=== PATIENT | female | born 1965 | race Caucasian/White ===

== ENCOUNTER 2016-08-25 14:33 | Emergency (ER) | payer MEDICARE, MEDICAID ==
[2016-08-25 15:07] VITALS: BP 100/77
--- NOTE | 2016-08-25 16:07 | UC ---
Back Pain HPI - HPI Summary HPI Summary: 51 yo female with chronic back pain and right sciatica presents with increased pain after a fall. She landed on her buttock. No bowel or bladder dysfunction no hx CA out of her pain meds also c/o productive cough x 3 weeks - History of Current Complaint Chief Complaint: UCBackPain Stated Complaint: FELL-BACK PAIN Hx Obtained From: Patient Onset/Duration: Sudden Onset Timing: Constant Severity Initially: Severe Severity Currently: Severe Pain Intensity: 8 Pain Scale Used: 0-10 Numeric Character: Dull, Aching Aggravating: Movement, Walking Alleviating: Rest Associated Signs And Symptoms: Positive: Numbness - chronic decreased sensation right leg - Allergies/Home Medications Allergies/Adverse Reactions: Allergies Allergy/AdvReac Type Severity Reaction Status Date / Time Ibuprofen Allergy Severe Hives Verified 08/25/16 15:08 Latex Allergy Severe Rash Verified 08/25/16 15:08 Sulfa Antibiotics Allergy Severe Hives Verified 08/25/16 15:08 Penicillins Allergy Intermediate Rash Verified 08/25/16 15:08 Nalbuphine Allergy Unknown Unknown Verified 08/25/16 15:08 Reaction Details Perphenazine Allergy Unknown Unknown Verified 08/25/16 15:08 Reaction Details Ciprofloxacin [From Cipro] AdvReac Severe Dizziness Verified 08/25/16 15:08 Tramadol AdvReac Severe Altered Verified 08/25/16 15:08 Mental Status [place] AdvReac Mild See Comment Verified 08/25/16 15:08 ENVIRONMENTAL Allergy Mild SINUS Uncoded 08/25/16 15:08 PMH/Surg Hx/FS Hx/Imm Hx Endocrine History Of: Reports: Diabetes, Thyroid Disease Cardiovascular History Of: Reports: Hypertension Denies: Cardiac Disorders, Pacemaker/ICD Respiratory History Of: Reports: Asthma Denies: COPD, Pneumonia, Pulmonary Embolism GI/ History Of: Reports: Gastrointestinal Bleed, Gall Bladder Disease Denies: Gastroesophageal Reflux, Renal Disease Neurological History Of: Denies: CVA, Dementia, Seizures Psychological History Of: Reports: Anxiety, Depression, Bipolar Disorder - pt manic Denies: Schizophrenia Cancer History Of: Denies: Lung Cancer Other History Of: Negative For: Anticoagulant Therapy - Surgical History Surgical History: Yes Surgery Procedure, Year, and Place: 2011-CATARACT EXTRACTION. GALLBLADDER REMOVED . HIP SURGERY ACHILD - Family History Known Family History: Positive: None - reviewed & noncontributory, Other - Anxiety and depression, [place] - father Negative: Cardiac Disease, Hypertension, Diabetes Family History: Depression and anxiety - Social History Alcohol Use: None Substance Use Type: Prescribed Smoking Status (MU): Former Smoker Type: Cigarettes Length of Time of Smoking/Using Tobacco: 1 year ago Have You Smoked in the Last Year: No Household Exposure Type: Cigarettes - Immunization History Most Recent Influenza Vaccination: 05/2016 Most Recent Tetanus Shot: Unsure Most Recent Pneumonia Vaccination: 04/20/2006 Review of Systems Constitutional: Negative Skin: Negative Eyes: Negative ENT: Negative Respiratory: Cough Cardiovascular: Negative Gastrointestinal: Negative Genitourinary: Negative Motor: Negative Neurovascular: Negative Musculoskeletal: Arthralgia, Myalgia Neurological: Negative Psychological: Negative All Other Systems Reviewed And Are Negative: Yes Physical Exam Triage Information Reviewed: Yes Appearance: Well-Appearing, No Pain Distress, Well-Nourished Vital Signs: Initial Vital Signs Temp 98.2 F 08/25/16 15:01 Pulse 72 08/25/16 15:01 Resp 20 08/25/16 15:01 BP 100/77 08/25/16 15:01 Pulse Ox 100 08/25/16 15:01 Eyes: Positive: Conjunctiva Clear ENT: Negative: Hearing grossly normal - decreased, Nasal congestion, Nasal drainage, Trismus, Muffled/hoarse voice Neck: Positive: Supple, Nontender Respiratory: Positive: No respiratory distress, No accessory muscle use, Rhonchi Cardiovascular: Positive: RRR, No Murmur Neurological: Positive: Alert Psychological Exam: Normal Skin Exam: Normal Back Pain Course/Dx - Differential Dx/Diagnosis Provider Diagnoses: lumbar strain. lumbar DDD. acute bronchitis Discharge - Discharge Plan Condition: Stable Disposition: HOME Prescriptions: Azithromycin TAB* [Zithromax TAB*] 250 mg PO DAILY #6 tab HYDROcodone/ACETAMIN 5-325 MG* [[place] 5-325 TAB*] 1 tab PO Q4H PRN #15 tab MDD 4 PRN Reason: Pain Patient Education Materials: Acute Bronchitis (ED), Degenerative Disc Disease ( ED) Referrals: Gabo Sullivan MD [Primary Care Provider] - 5 Days
--- NOTE | 2016-08-25 16:39 | RAD ---
INDICATION: Back pain COMPARISON: March 12, 2016 TECHNIQUE: Routine PA, lateral, and oblique imaging was performed . FINDINGS: Bones: There are no acute bony findings. There are arthritic changes with multilevel degenerative disc disease. There is multilevel degenerative spurring and there is facet arthropathy at the lower 2 lumbar levels. All findings are unchanged. Alignment: Normal Disc spaces: As above, multilevel degenerative narrowing. Soft tissues: There are no soft tissue abnormalities. IMPRESSION: MODERATE DEGENERATIVE CHANGE. NO ACUTE FINDINGS.
== END 2016-08-25 17:10 | disposition home or self-care (01) ==
LOC: UCEAST 14:33
DX: S39.012A Strain of muscle, fascia and tendon of lower back, initial encounter (principal); M51.36 Other intervertebral disc degeneration, lumbar region; J20.9 Acute bronchitis, unspecified; Z87.891 Personal history of nicotine dependence; Z98.49 Cataract extraction status, unspecified eye; W19.XXXA Unspecified fall, initial encounter; Y92.9 Unspecified place or not applicable; Z88.0 Allergy status to penicillin; Z88.1 Allergy status to other antibiotic agents; Z88.2 Allergy status to sulfonamides; Z88.5 Allergy status to narcotic agent; Z88.6 Allergy status to analgesic agent; Z88.8 Allergy status to other drugs, medicaments and biological substances
CPT/HCPCS: 72110; 99212; G0463

== ENCOUNTER 2016-10-21 16:01 | Emergency (ER) | payer MEDICARE, MEDICAID ==
[2016-10-21 16:33] VITALS: BP 142/69
[2016-10-21] MEDS ORDERED: Ketorolac INJ* 60 MG/2 ML VIAL IM ONE (17:51)
--- NOTE | 2016-10-21 18:01 | UC ---
Throat Pain/Nasal John HPI - HPI Summary HPI Summary: SINUS CONGESTION AND FACIAL PRESSURE SINCE 10/15/16. OCASIONAL NONPRODUCTIVE COUGH. PRESSURE CAUSING HEADACHE. HAS TAKEN ALIEVE AND TORADOL IN PAST WITHOUT PROBLEMS, DESPITE NOTEDIBUPROFEN ALLERGY. NO FEVER. - History of Current Complaint Chief Complaint: UCRespiratory Stated Complaint: SINUS PAIN,CONGESTION Time Seen by Provider: 10/21/16 16:49 Hx Obtained From: Patient, Family/[employer]attery [employer] As[employer]er Hx Last Menstrual Period: August 2016 Onset/Duration: Gradual Onset, Lasting Weeks, Worse Since - THREE DAYS Severity: Moderate Cough: Nonproductive Associated Signs & Symptoms: Positive: Hoarseness, Sinus Discomfort, Nasal Discharge - Allergies/Home Medications Allergies/Adverse Reactions: Allergies Allergy/AdvReac Type Severity Reaction Status Date / Time Ibuprofen Allergy Severe Hives Verified 10/21/16 16:34 Latex Allergy Severe Rash Verified 10/21/16 16:34 Sulfa Antibiotics Allergy Severe Hives Verified 10/21/16 16:34 Penicillins Allergy Intermediate Rash Verified 10/21/16 16:34 Nalbuphine Allergy Unknown Unknown Verified 10/21/16 16:34 Reaction Details Perphenazine Allergy Unknown Unknown Verified 10/21/16 16:34 Reaction Details Ciprofloxacin [From Cipro] AdvReac Severe Dizziness Verified 10/21/16 16:34 Tramadol AdvReac Severe Altered Verified 10/21/16 16:34 Mental Status [place] AdvReac Mild See Comment Verified 10/21/16 16:34 ENVIRONMENTAL Allergy Mild SINUS Uncoded 10/21/16 16:34 PMH/Surg Hx/FS Hx/Imm Hx Previously Healthy: Yes Endocrine History Of: Reports: Diabetes, Thyroid Disease Cardiovascular History Of: Reports: Hypertension Denies: Cardiac Disorders, Pacemaker/ICD Respiratory History Of: Reports: Asthma Denies: COPD, Pneumonia, Pulmonary Embolism GI/ History Of: Reports: Gastrointestinal Bleed, Gall Bladder Disease Denies: Gastroesophageal Reflux, Ulcer, Renal Disease Neurological History Of: Denies: CVA, Dementia, Seizures Psychological History Of: Reports: Anxiety, Depression, Bipolar Disorder - pt manic Denies: Schizophrenia Cancer History Of: Denies: Lung Cancer Other History Of: Negative For: Anticoagulant Therapy - Surgical History Surgical History: Yes Surgery Procedure, Year, and Place: 2011-CATARACT EXTRACTION. GALLBLADDER REMOVED . HIP SURGERY ACHILD - Family History Known Family History: Positive: None - reviewed & noncontributory, Other - Anxiety and depression, [place] - father Negative: Cardiac Disease, Hypertension, Diabetes Family History: Depression and anxiety - Social History Occupation: Disabled Lives: With Family Alcohol Use: None Substance Use Type: None, Prescribed Smoking Status (MU): Former Smoker Type: Cigarettes Length of Time of Smoking/Using Tobacco: 2 year ago Have You Smoked in the Last Year: No Household Exposure Type: Cigarettes - Immunization History Most Recent Influenza Vaccination: 05/2016 Most Recent Tetanus Shot: Unsure Most Recent Pneumonia Vaccination: 04/20/2006 Review of Systems Constitutional: Negative Skin: Negative Eyes: Negative ENT: Ear Ache, Nasal Discharge Respiratory: Cough Cardiovascular: Negative Gastrointestinal: Negative Genitourinary: Negative Motor: Negative Neurovascular: Negative Musculoskeletal: Negative Neurological: Headache - MILD Psychological: Negative All Other Systems Reviewed And Are Negative: Yes Physical Exam Triage Information Reviewed: Yes Appearance: Well-Nourished, Ill-Appearing - MILD, Pain Distress - MILD Vital Signs: Initial Vital Signs Temp 98.8 F 10/21/16 16:26 Pulse 88 10/21/16 16:26 Resp 18 10/21/16 16:26 BP 142/69 10/21/16 16:26 Pulse Ox 99 10/21/16 16:26 Vital Signs Reviewed: Yes Eye Exam: Normal Eyes: Positive: Conjunctiva Clear ENT: Positive: Hearing grossly normal, Pharynx normal, TM bulging, TM dull Dental Exam: Normal Neck exam: Normal Neck: Positive: Supple, Nontender, No Lymphadenopathy Respiratory Exam: Normal Respiratory: Positive: Chest non-tender, Lungs clear, Normal breath sounds, No respiratory distress, No accessory muscle use Cardiovascular Exam: Normal Cardiovascular: Positive: RRR, No Murmur, Pulses Normal Abdominal Exam: Normal Abdomen Description: Positive: Nontender, No Organomegaly Musculoskeletal Exam: Normal Musculoskeletal: Positive: Strength Intact, ROM Intact, No Edema Neurological Exam: Normal Psychological Exam: Normal Psychological: Positive: Normal Response To Family Skin Exam: Normal Throat Pain/Nasal Course/Dx - Differential Dx/Diagnosis Differential Diagnosis/HQI/PQRI: Pharyngitis, Sinusitis, URI Provider Diagnoses: SINUSITIS Discharge - Discharge Plan Condition: Stable Disposition: HOME Prescriptions: DOXYcycline CAP(*) [DOXYcycline 100MG CAP(*)] 100 mg PO BID #20 cap Fluticasone NASAL SPRAY 50MCG* [Flonase NASAL SPRAY 50MCG*] 2 spray BOTH NARES DAILY #1 btl Patient Education Materials: Sinusitis (ED) Referrals: Gabo Sullivan MD [Primary Care Provider] -
== END 2016-10-21 18:22 | disposition home or self-care (01) ==
LOC: UCEAST 16:01
DX: J32.9 Chronic sinusitis, unspecified (principal); Z88.6 Allergy status to analgesic agent; Z88.1 Allergy status to other antibiotic agents; Z88.5 Allergy status to narcotic agent; Z88.0 Allergy status to penicillin; Z88.2 Allergy status to sulfonamides; Z88.8 Allergy status to other drugs, medicaments and biological substances; Z90.49 Acquired absence of other specified parts of digestive tract; Z98.49 Cataract extraction status, unspecified eye; Z87.891 Personal history of nicotine dependence
CPT/HCPCS: 99212; G0463; J1885

== ENCOUNTER 2016-11-04 17:27 | Emergency (ER) | payer MEDICARE, MEDICAID ==
[2016-11-04 19:58] VITALS: BP 168/86
--- NOTE | 2016-11-04 20:50 | UC ---
Jeromy Rosales Erika, scribed for Michelle Lopez DO on 11/04/16 at 1921 . Abdominal Pain Female HPI - HPI Summary HPI Summary: Patient is a 51-year-old female presenting to [facility] with a CC of epigastric pain. She reports that she noticed mild pain yesterday, but felt fine this morning. Pain returned and worsened today after pt had coffee and ate food. Pain started out dull, but is now sharp. It radiates through to her back. Symptoms include subjective fever, chills, weakness, diaphoresis, nausea, abdominal distension, vomiting(everything including water), dizziness and dyspnea. Pt states she has had dry heaving with PO intake. Pt also notes that she has been urinating frequently, but denies other urinary symptoms. She also reports left neck pain that she believes is musculoskeletal. Patient denies sore throat, ear ache, eye discharged, chest pain and pedal edema. Patient reports a Hx pancreatitis, and she states symptoms feel similar. She states she has not had a flare up in 3 years. Patient also states that she discontinued some of her psychiatric medications yesterday by recommendation of her psychiatrist. Patient states she came to [facility] today instead of the ED because she feels she has been treated poorly by ED staff, and believes this is due to her psychiatric history. FHx CAD. Denies FHx DM. Patient is a former smoker and she does not drink. - History of Current Complaint Chief Complaint: UCGeneralIllness Stated Complaint: ABD PAIN Time Seen by Provider: 11/04/16 18:50 Hx Obtained From: Patient Hx Last Menstrual Period: August 2016 Onset/Duration: Gradual Onset, Lasting Hours, Still Present Timing: Constant Severity Currently: Moderate Pain Intensity: 7 Location: Epigastric Radiates: Yes Radiates to: Back Character: Sharp Aggravating Factor(s): Food, Movement Alleviating Factor(s): Nothing Associated Signs and Symptoms: Positive: Diaphoresis, Fever, Dizzy, Back Pain, Nausea, Vomiting, Other: - chills, weakness, diaphoresis. Negative: Cough, Chest Pain, Blood in Stool, Urinary Symptoms Allergies/Adverse Reactions: Allergies Allergy/AdvReac Type Severity Reaction Status Date / Time Ibuprofen Allergy Severe Hives Verified 11/04/16 18:17 Latex Allergy Severe Rash Verified 11/04/16 18:17 Sulfa Antibiotics Allergy Severe Hives Verified 11/04/16 18:17 Penicillins Allergy Intermediate Rash Verified 11/04/16 18:17 Nalbuphine Allergy Unknown Unknown Verified 11/04/16 18:17 Reaction Details Perphenazine Allergy Unknown Unknown Verified 11/04/16 18:17 Reaction Details Ciprofloxacin [From Cipro] AdvReac Severe Dizziness Verified 11/04/16 18:17 Tramadol AdvReac Severe Altered Verified 11/04/16 18:17 Mental Status [place] AdvReac Mild See Comment Verified 11/04/16 18:17 ENVIRONMENTAL Allergy Mild SINUS Uncoded 11/04/16 18:17 Home Medications: Home Medications Naproxen [Naproxen 500 MG TABS] 500 mg PO BID 11/04/16 [History Confirmed ] PMH/Surg Hx/FS Hx/Imm Hx Endocrine History Of: Reports: Diabetes, Thyroid Disease Cardiovascular History Of: Reports: Hypertension Denies: Cardiac Disorders, Pacemaker/ICD Respiratory History Of: Reports: Asthma Denies: COPD, Pneumonia, Pulmonary Embolism GI/ History Of: Reports: Gastrointestinal Bleed, Gall Bladder Disease Denies: Gastroesophageal Reflux, Ulcer, Renal Disease Neurological History Of: Denies: CVA, Dementia, Seizures Psychological History Of: Reports: Anxiety, Depression, Bipolar Disorder - pt manic Denies: Schizophrenia Cancer History Of: Denies: Lung Cancer Other History Of: Negative For: Anticoagulant Therapy - Surgical History Surgical History: Yes Surgery Procedure, Year, and Place: 2011-CATARACT EXTRACTION. GALLBLADDER REMOVED . HIP SURGERY ACHILD - Family History Known Family History: Positive: Other - Anxiety and depression, [place] - father Negative: Cardiac Disease, Hypertension, Diabetes - Social History Lives: With Family Alcohol Use: None Smoking Status (MU): Former Smoker Type: Cigarettes Length of Time of Smoking/Using Tobacco: 2 year ago Have You Smoked in the Last Year: No Household Exposure Type: Cigarettes - Immunization History Most Recent Influenza Vaccination: 05/2016 Most Recent Tetanus Shot: Unsure Most Recent Pneumonia Vaccination: 04/20/2006 Review of Systems Constitutional: Fever - subjective, Chills, Other - diaphoresis Skin: Negative Eyes: Negative ENT: Negative Respiratory: Other - dyspnea Cardiovascular: Negative Gastrointestinal: Abdominal Pain - epigastric, Vomiting, Other - nausea Genitourinary: Frequency Motor: Negative Neurovascular: Negative Musculoskeletal: Myalgia - L neck pain Neurological: Weakness, Other - dizzy Psychological: Negative All Other Systems Reviewed And Are Negative: Yes Physical Exam Triage Information Reviewed: Yes Appearance: No Pain Distress, Ill-Appearing - mildly, Obese Vital Signs: Initial Vital Signs Temp 99.2 F 11/04/16 18:27 Pulse 88 11/04/16 18:27 Resp 20 11/04/16 18:27 BP 151/77 11/04/16 18:27 Pulse Ox 97 11/04/16 18:27 Vital Signs Reviewed: Yes Eyes: Positive: Conjunctiva Clear. Negative: Discharge ENT: Positive: Hearing grossly normal. Negative: Muffled/hoarse voice Neck: Positive: Supple, Nontender Respiratory: Positive: Lungs clear, Normal breath sounds, No respiratory distress, No accessory muscle use Cardiovascular: Positive: RRR, No Murmur Abdomen Description: Positive: Soft, Other: - Tender epigastric and LLQ(mild). Negative: Distended, Guarding Bowel Sounds: Positive: Present Musculoskeletal Exam: Normal Neurological: Positive: Alert, Muscle Tone Normal Psychological Exam: Normal Psychological: Positive: Age Appropriate Behavior Skin Exam: Other - Warm, dry, normal color Diagnostics - EKG Cardiac Rate: NL - at 66 bpm Cardiac Rhythm: Sinus: Normal - with no ST changes Abd Pain Female Course/Dx - Differential Dx/Diagnosis Differential Diagnosis: Constipation, Irritable Bowel Syndrome, [place], Pancreatitis Provider Diagnoses: Epigastric pain r/o pancreatitis - Physician Notification/Consults Discussed Patient Care With: Dr. Gamez ([facility] [place] [facility]) at 19:26 - accepts for transfer Discharge - Discharge Plan Condition: Stable Disposition: TRANS HIGHER LVL OF CARE FAC Referrals: Gabo Sullivan MD [Primary Care Provider] - The documentation as recorded by the Jeromy roth Erika accurately reflects the service I personally performed and the decisions made by , Michelle Lopez DO.
== END 2016-11-04 19:59 | disposition short-term general hospital (02) ==
LOC: UCEAST 17:27
DX: R10.13 Epigastric pain (principal); Z87.891 Personal history of nicotine dependence; Z88.0 Allergy status to penicillin; Z88.2 Allergy status to sulfonamides; E11.9 Type 2 diabetes mellitus without complications; I10 Essential (primary) hypertension; J45.909 Unspecified asthma, uncomplicated; K21.9 Gastro-esophageal reflux disease without esophagitis; F31.9 Bipolar disorder, unspecified
CPT/HCPCS: 93005; 99213; G0463

== ENCOUNTER 2016-11-04 20:23 | Emergency (ER) | payer MEDICARE, MEDICAID ==
[2016-11-04] MEDS ORDERED: Ondansetron INJ* 2 MG/ML VIAL IV ONE (20:56)
[2016-11-04] MEDS ORDERED: NS 0.9% 1000 ML* 1,000 ML IV ONE (20:56)
[2016-11-04 21:34] LABS: Hematocrit 39 % (35-47); Hemoglobin 12.6 g/dl (12.0-16.0); Mean Corpuscular HGB Conc 32 g/dl (31-36); Mean Corpuscular Hemoglobin 26 pg (27-31); Mean Corpuscular Volume 81 fL (80-97); Mean Platelet Volume 9 um3 (7.4-10.4); Red Blood Count 4.81 10^6/ul (4.0-5.4); Red Cell Distribution Width 17 % (10.5-15)
[2016-11-04 21:49] LABS: ALT 21 U/L (7-52); Albumin 3.9 g/dL (3.2-5.2); Alkaline Phosphatase 145 U/L (34-104); BUN/Creatinine Ratio 24.2 (8-20); Blood Urea Nitrogen 16 mg/dL (6-24); C Reactive Protein 3.71 mg/L (< 5.00); CO2 Carbon Dioxide 24 mmol/L (22-32); Calcium 9.5 mg/dL (8.6-10.3); Chloride 101 mmol/L (101-111); EGFR African American 121.9 (>60); EGFR Non-African American 94.8 (>60); Globulin 3.9 g/dL (2-4); Glucose 172 mg/dL (70-100); Lipase 10 U/L (11.0-82.0); Sodium 133 mmol/L (133-145); Total Protein 7.8 g/dL (6.4-8.9)
--- NOTE | 2016-11-04 21:53 | ED ---
dennis Rosales Timothy, scribed for David Gamez MD on 11/04/16 at 2057 . Abdominal Pain/Female - HPI Summary HPI Summary: Taryn Schulz is a 51 yo female [facility] with 9/10 epigastric pain and nausea since yesterday, worsening through today. She states she saw her PCP yesterday, which is when her pain began. When she woke up this morning, she drank coffee and noticed a return of her pain. She drank water, with no relief. After eating her pain increased so she appeared to [facility]. She has a Hx of chronic pancreatic problems, most recently 3 years ago, as well as DM, thyroid disease, HTN, PSVT, asthma, BiPAP dependent, GERd, gal bladder disease, PTSD, bipolar disorder, depression, anxiety, violent episodes against others, overdoses, intellectual disability, and tobacco use. - History of Current Complaint Chief Complaint: EDAbdPain Stated Complaint: ABD PAIN Time Seen by Provider: 11/04/16 20:48 Hx Obtained From: Patient Hx Last Menstrual Period: August 2016 Onset/Duration: Sudden Onset, Lasting Hours, Still Present Timing: Constant Severity Initially: Moderate Severity Currently: Moderate Pain Intensity: 9 Pain Scale Used: 0-10 Numeric Location: Epigastric, Suprapubic Radiates: No Associated Signs and Symptoms: Positive: Nausea Allergies/Adverse Reactions: Allergies Allergy/AdvReac Type Severity Reaction Status Date / Time Ibuprofen Allergy Severe Hives Verified 11/04/16 18:17 Latex Allergy Severe Rash Verified 11/04/16 18:17 Sulfa Antibiotics Allergy Severe Hives Verified 11/04/16 18:17 Penicillins Allergy Intermediate Rash Verified 11/04/16 18:17 Nalbuphine Allergy Unknown Unknown Verified 11/04/16 18:17 Reaction Details Perphenazine Allergy Unknown Unknown Verified 11/04/16 18:17 Reaction Details Ciprofloxacin [From Cipro] AdvReac Severe Dizziness Verified 11/04/16 18:17 Tramadol AdvReac Severe Altered Verified 11/04/16 18:17 Mental Status [employer] AdvReac Mild See Comment Verified 11/04/16 18:17 ENVIRONMENTAL Allergy Mild SINUS Uncoded 11/04/16 18:17 PMH/Surg Hx/FS Hx/Imm Hx Endocrine/Hematology History: Reports: Hx Diabetes, Hx Thyroid Disease, Other Endocrine/Hematological Disorders - Chronic pancreatitis Denies: Hx Anticoagulant Therapy Cardiovascular History: Reports: Hx Hypertension, Other Cardiovascular Problems/ Disorders - PER H&P- HX OF PSVT 04/2008 Denies: Hx Pacemaker/ICD Respiratory History: Reports: Hx Asthma, Hx Seasonal Allergies, Hx Sleep Apnea - uses c-pap but hasn't used it for 5 mos due to being broken Denies: Hx Chronic Bronchitis, Hx Chronic Obstructive Pulmonary Disease (COPD ), Hx Cystic Fibrosis, Hx Lung Cancer, Hx Pleural Effusion, Hx Pneumonia, Hx Pulmonary Edema, Hx Pulmonary Embolism, Other Respiratory Problems/Disorders GI History: Reports: Hx Gall Bladder Disease, Hx Gastroesophageal Reflux Disease , Hx Gastrointestinal Bleed, Hx Irritable Bowel, Other GI Disorders - pancreatitis/gastroenteritis Denies: Hx Ulcer History: Denies: Hx Renal Disease Musculoskeletal History: Reports: Hx Arthritis, Hx Back Problems, Other Musculoskeletal History - GEN MUSCULOSKELETAL PAIN Denies: Hx Bursitis, Hx Congenital Bone Abnormalities, Hx Fibromyalgia, Hx Gout, Hx Orthopedic Injury, Hx Osteoporosis, Hx Scoliosis, Hx Tendonitis Sensory History: Reports: Hx Cataracts, Hx Contacts or Glasses, Hx Vision Problem Denies: Hx Eye Injury, Hx Eye Prosthesis, Hx Glaucoma, Hx Macular Degeneration, Hx Deafness, Hx Hearing Aid, Hx Hearing Problem, Other Sensory Impairments Opthamlomology History: Reports: Hx Cataracts, Hx Contacts or Glasses, Hx Vision Problem Denies: Hx Eye Injury, Hx Eye Prosthesis, Hx Glaucoma, Hx Macular Degeneration, Other Sensory Impairments Neurological History: Reports: Hx Developmental Delay - intellectual disability Denies: Hx Dementia, Hx Seizures, Other Neuro Impairments/Disorders Psychiatric History: Reports: Hx Anxiety, Hx Depression, Hx Post Traumatic Stress Disorder, Hx Inpatient Treatment, Hx Community Mental Health Tx, Hx Bipolar Disorder - pt manic, Hx Suicide Attempt - past med overdoses, Hx of Violent Episodes Against Others, Other Psychiatric Issues/Disorders - PSYCHOSIS NOS, HX OF PTSD, SCHIZOAFFECTIVE DISORDER, BORDERLINE PERSONALITY Denies: Hx Attention Deficit Hyperactivity Disorder, Hx Eating Disorder, Hx Panic Disorder, Hx Schizophrenia, Hx Substance Abuse - Surgical History Surgery Procedure, Year, and Place: 2011-CATARACT EXTRACTION. GALLBLADDER REMOVED . HIP SURGERY ACHILD Hx Anesthesia Reactions: No - Immunization History Date of Tetanus Vaccine: Unknown Date of Influenza Vaccine: May 2012 Infectious Disease History: No Infectious Disease History: Denies: Hx Clostridium Difficile, Hx Hepatitis, Hx Human Immunodeficiency Virus (HIV), Hx of Known/Suspected MRSA, Hx Shingles, Hx Tuberculosis, Hx Known/ Suspected VRE, Hx Known/Suspected VRSA, History Other Infectious Disease, Traveled Outside the [place] in Last 30 Days - Family History Known Family History: Positive: Other - Anxiety and depression, [place] - father Negative: Cardiac Disease, Hypertension, Diabetes Family History: Depression and anxiety - Social History Alcohol Use: None Hx Substance Use: Yes Substance Use Type: Reports: None, Prescribed Hx Tobacco Use: Yes Smoking Status (MU): Former Smoker Type: Cigarettes Length of Time of Smoking/Using Tobacco: 2 year ago Have You Smoked in the Last Year: No Review of Systems Constitutional: Negative Eyes: Negative ENT: Negative Cardiovascular: Negative Respiratory: Negative Positive: Abdominal Pain, Nausea Genitourinary: Negative Musculoskeletal: Negative Skin: Negative Neurological: Negative Psychological: Normal All Other Systems Reviewed And Are Negative: Yes Physical Exam Triage Information Reviewed: Yes Vital Signs On Initial Exam: Initial Vitals Temp Pulse Resp BP Pulse Ox 98.5 F 73 18 146/93 98 11/04/16 20:47 11/04/16 20:47 11/04/16 20:47 11/04/16 20:47 11/04/16 20:47 Vital Signs Reviewed: Yes Appearance: Positive: Well-Appearing, No Pain Distress Skin: Positive: Warm Head/Face: Positive: Normal Head/Face Inspection Eyes: Positive: JENNIFER ENT: Positive: Hearing grossly normal Neck: Positive: Supple Respiratory/Lung Sounds: Positive: Breath Sounds Present Cardiovascular: Positive: RRR Abdomen Description: Positive: Nontender, No Organomegaly, Soft Bowel Sounds: Positive: Present Musculoskeletal: Positive: Strength/ROM Intact Neurological: Positive: Sensory/Motor Intact, Alert, Oriented to Person Place, Time Psychiatric: Positive: Affect/Mood Appropriate Diagnostics - Vital Signs Vital Signs Temp Pulse Resp BP Pulse Ox 11/04/16 20:47 98.5 F 73 18 146/93 98 - Laboratory Lab Results: Lab Results 11/04/16 11/04/16 11/04/16 Range/Units 21:22 21:22 21:22 WBC 12.0 H (3.5-10.8) 10^3/ul RBC 4.81 (4.0-5.4) 10^6/ul Hgb 12.6 (12.0-16.0) g/dl Hct 39 (35-47) % MCV 81 (80-97) fL MCH 26 L (27-31) pg MCHC 32 (31-36) g/dl RDW 17 H (10.5-15) % Plt Count 234 (150-450) 10^3/ul MPV 9 (7.4-10.4) um3 Neut % (Auto) 66.5 (38-83) % Lymph % (Auto) 26.8 (25-47) % [place] % (Auto) 3.8 (1-9) % Eos % (Auto) 2.2 (0-6) % Baso % (Auto) 0.7 (0-2) % Absolute Neuts (auto) 8.0 H (1.5-7.7) 10^3/ul Absolute Lymphs (auto) 3.2 (1.0-4.8) 10^3/ul Absolute Monos (auto) 0.5 (0-0.8) 10^3/ul Absolute Eos (auto) 0.3 (0-0.6) 10^3/ul Absolute Basos (auto) 0.1 (0-0.2) 10^3/ul Absolute Nucleated RBC 0.01 10^3/ul Nucleated RBC % 0.1 Sodium 133 (133-145) mmol/L Potassium Pending Chloride 101 (101-111) mmol/L Carbon Dioxide 24 (22-32) mmol/L Anion Gap Pending BUN 16 (6-24) mg/dL Creatinine 0.66 (0.51-0.95) mg/dL Est GFR ( Amer) 121.9 (>60) Est GFR (Non-Af Amer) 94.8 (>60) BUN/Creatinine Ratio 24.2 H (8-20) Glucose 172 H (70-100) mg/dL Lactic Acid 0.9 (0.5-2.0) mmol/L Calcium 9.5 (8.6-10.3) mg/dL Magnesium Pending Total Bilirubin 0.30 (0.2-1.0) mg/dL AST Pending ALT 21 (7-52) U/L Alkaline Phosphatase 145 H (34-104) U/L C-Reactive Protein 3.71 (< 5.00) mg/L Total Protein 7.8 (6.4-8.9) g/dL Albumin 3.9 (3.2-5.2) g/dL Globulin 3.9 (2-4) g/dL Albumin/Globulin Ratio 1.0 (1-3) Lipase 10 L (11.0-82.0) U/L Result Diagrams: 11/04/16 21:22 11/04/16 21:22 Lab Statement: Any lab studies that have been ordered have been reviewed, and results considered in the medical decision making process. Re-Evaluation - Re-Evaluation First Eval Change: Improved - results d/w pt Abdominal Pain Fem Course/Dx - Course Course Of Treatment: Taryn Schulz is a 51 yo female [facility] with 9/10 epigastric pain and nausea since yesterday, worsening through today. She has a Hx of chronic pancreatitis which was last active 3 years ago. In the ED she was given zofran to control her nausea, and IV fluids. After clinical examination and review of her lab work, she will be discharged home with abdominl pain and instructions to obey a bland diet until her nausea is resolved. - Diagnoses Provider Diagnoses: Abdominal pain Discharge - Discharge Plan Condition: Stable Disposition: HOME Patient Education Materials: Acute Abdominal Pain (ED), Diet for Ulcers and Gastritis (ED) Referrals: Gabo Sullivan MD [Primary Care Provider] - 2 Days Additional Instructions: Please follow up with your primary care physician regarding your visit to the emergency department today. Return to the emergency department with any new or recurring symptoms. The documentation as recorded by the dennis roth Timothy accurately reflects the service I personally performed and the decisions made by me, David Gamez MD.
[2016-11-04 22:00] LABS: Urine Bacteria Absent (Absent); Urine Bilirubin Negative (Negative); Urine Glucose Negative (Negative); Urine Nitrite Negative (Negative)
[2016-11-04 22:19] VITALS: BP 138/77
== END 2016-11-04 22:18 | disposition home or self-care (01) ==
LOC: ED 20:23
DX: R10.13 Epigastric pain (principal); R11.0 Nausea; Z87.891 Personal history of nicotine dependence; Z88.0 Allergy status to penicillin; Z88.2 Allergy status to sulfonamides; E11.9 Type 2 diabetes mellitus without complications; I10 Essential (primary) hypertension; J45.909 Unspecified asthma, uncomplicated; K21.9 Gastro-esophageal reflux disease without esophagitis; F31.9 Bipolar disorder, unspecified
CPT/HCPCS: 36415; 80053; 81003; 81015; 83605; 83690; 85025; 86140; 96374; 99283; J2405

== ENCOUNTER 2016-11-11 17:44 | Emergency (ER) | payer MEDICARE, MEDICAID ==
--- NOTE | 2016-11-11 19:23 | RAD ---
Indication: Right foot pain 3 views of the right hand demonstrates degenerative changes of the cuneiform metatarsal joints. IMPRESSION: No fracture is noted. Degenerative changes of the cuneiform metatarsal joints.
[2016-11-11] MEDS ORDERED: Acetaminop/Codeine 30 MG TAB* 1 TAB (300 MG/30 MG) PO ONE (19:36)
[2016-11-11 19:39] VITALS: BP 134/78
--- NOTE | 2016-11-15 15:00 | UC ---
Jeromy Rosales Erika, scribed for Michelle Lopez DO on 11/11/16 at 1822 . Lower Extremity/Ankle HPI - HPI Summary HPI Summary: Patient is a 51-year-old female presenting to [facility] with a CC of right great toe pain. Patient reports that she stubbed the toe yesterday. Pt rates the pain a 6/ 10, and describes it as aching and throbbing. Pt does also report some pain in the toes adjacent to the great toe. Pain was not alleviated by Tylenol. It is aggravated by weight-bearing. She reports that toe became swollen and bruised yesterday evening, and was worse this morning. Pt states she has been icing the toe since noon today. She denies any other symptoms. - History of Current Complaint Chief Complaint: UCLowerExtremity Stated Complaint: RT FOOT TOE INJURY Time Seen by Provider: 11/11/16 18:05 Hx Obtained From: Patient Hx Last Menstrual Period: 09/29/16 Onset/Duration: Sudden Onset, Lasting Days, Still Present Severity Initially: Moderate Severity Currently: Moderate Pain Intensity: 6 Pain Scale Used: 0-10 Numeric Aggravating Factor(s): Standing, Ambulation Alleviating Factor(s): Nothing - Allergies/Home Medications Allergies/Adverse Reactions: Allergies Allergy/AdvReac Type Severity Reaction Status Date / Time Ibuprofen Allergy Severe Hives Verified 11/11/16 18:04 Latex Allergy Severe Rash Verified 11/11/16 18:04 Sulfa Antibiotics Allergy Severe Hives Verified 11/11/16 18:04 Penicillins Allergy Intermediate Rash Verified 11/11/16 18:04 Nalbuphine Allergy Unknown Unknown Verified 11/11/16 18:04 Reaction Details Perphenazine Allergy Unknown Unknown Verified 11/11/16 18:04 Reaction Details Ciprofloxacin [From Cipro] AdvReac Severe Dizziness Verified 11/11/16 18:04 Tramadol AdvReac Severe Altered Verified 11/11/16 18:04 Mental Status [place] AdvReac Mild See Comment Verified 11/11/16 18:04 ENVIRONMENTAL Allergy Mild SINUS Uncoded 11/11/16 18:04 PMH/Surg Hx/FS Hx/Imm Hx - Additional Past Medical History Additional PMH: h/o chronic pancreatitis Endocrine History Of: Reports: Diabetes, Thyroid Disease Cardiovascular History Of: Reports: Hypertension Denies: Cardiac Disorders, Pacemaker/ICD Respiratory History Of: Reports: Asthma Denies: COPD, Pneumonia, Pulmonary Embolism GI/ History Of: Reports: Gastrointestinal Bleed, Gall Bladder Disease Denies: Gastroesophageal Reflux, Ulcer, Renal Disease Neurological History Of: Denies: CVA, Dementia, Seizures Psychological History Of: Reports: Anxiety, Depression, Bipolar Disorder - pt manic Denies: Schizophrenia Cancer History Of: Denies: Lung Cancer Other History Of: Negative For: Anticoagulant Therapy - Surgical History Surgical History: Yes Surgery Procedure, Year, and Place: 2011-CATARACT EXTRACTION. GALLBLADDER REMOVED . HIP SURGERY ACHILD - Family History Known Family History: Positive: Other - Anxiety and depression, [place] - father Negative: Cardiac Disease, Hypertension, Diabetes - Social History Occupation: Disabled Lives: With Family Alcohol Use: None Substance Use Type: None, Prescribed Smoking Status (MU): Former Smoker Type: Cigarettes Length of Time of Smoking/Using Tobacco: 2 year ago Have You Smoked in the Last Year: No Household Exposure Type: Cigarettes - Immunization History Most Recent Influenza Vaccination: 05/2016 Most Recent Tetanus Shot: Unsure Most Recent Pneumonia Vaccination: 04/20/2006 Review of Systems Constitutional: Negative Skin: Negative Eyes: Negative ENT: Negative Respiratory: Negative Cardiovascular: Negative Gastrointestinal: Negative Genitourinary: Negative Motor: Negative Neurovascular: Negative Musculoskeletal: Arthralgia - R great toe pain with swelling and bruising Neurological: Negative Psychological: Negative All Other Systems Reviewed And Are Negative: Yes Physical Exam Triage Information Reviewed: Yes Appearance: Well-Appearing, No Pain Distress, Obese Vital Signs: Initial Vital Signs Temp 98.9 F 11/11/16 17:57 Pulse 96 11/11/16 17:57 Resp 18 11/11/16 17:57 BP 164/87 11/11/16 17:57 Pulse Ox 96 11/11/16 17:57 Vital Signs Reviewed: Yes Eyes: Positive: Conjunctiva Clear. Negative: Discharge ENT: Positive: Hearing grossly normal. Negative: Muffled/hoarse voice Neck: Positive: Supple, Nontender Respiratory: Positive: Lungs clear, Normal breath sounds, No respiratory distress, No accessory muscle use Cardiovascular: Positive: RRR, No Murmur Musculoskeletal Exam: Other - Tender to MCP and phalanges of toes 1, 2, and 3 on the right foot Neurological: Positive: Alert, Muscle Tone Normal Psychological Exam: Normal Psychological: Positive: Age Appropriate Behavior Skin Exam: Other - warm, dry, normal color Diagnostics - Radiology R foot XR Radiology Interpretation Completed By: Radiologist - IMPRESSION: No fracture is noted. Degenerative changes of the cuneiform metatarsal joints. Re-Evaluation - Re-Evaluation First Eval Re-Evaluation Time: 19:28 Comment: Discussed XR results with patient. Patient states pain is severe and requests pain medication. Lower Extremity Course/Dx - Differential Dx/Diagnosis Differential Diagnosis/HQI/PQRI: Contusion, Fracture (Closed), Sprain Provider Diagnoses: 1. Contusion. 2. Toe sprain Discharge - Discharge Plan Condition: Stable Disposition: HOME Patient Education Materials: Foot Contusion (ED), Foot Sprain (ED) Referrals: Gabo Sullivan MD [Primary Care Provider] - If Needed The documentation as recorded by the Jeromy roth Erika accurately reflects the service I personally performed and the decisions made by me, Michelle Lopez DO.
== END 2016-11-11 19:58 | disposition home or self-care (01) ==
LOC: UCEAST 17:44
DX: S90.111A Contusion of right great toe without damage to nail, initial encounter (principal); S93.501A Unspecified sprain of right great toe, initial encounter; W22.8XXA Striking against or struck by other objects, initial encounter; Y93.9 Activity, unspecified; Y92.9 Unspecified place or not applicable; E11.9 Type 2 diabetes mellitus without complications; E07.9 Disorder of thyroid, unspecified; I10 Essential (primary) hypertension; J45.909 Unspecified asthma, uncomplicated; F41.8 Other specified anxiety disorders; F31.89 Other bipolar disorder; E66.9 Obesity, unspecified; Z90.49 Acquired absence of other specified parts of digestive tract; Z98.49 Cataract extraction status, unspecified eye; Z88.6 Allergy status to analgesic agent; Z88.5 Allergy status to narcotic agent; Z88.0 Allergy status to penicillin; Z88.2 Allergy status to sulfonamides; Z87.891 Personal history of nicotine dependence
CPT/HCPCS: 99212; A9270-GY; G0463

== ENCOUNTER 2016-11-21 21:25 | Emergency (ER) | payer MEDICARE, MEDICAID ==
[2016-11-22 00:45] LABS: Hematocrit 36 % (35-47); Hemoglobin 11.6 g/dl (12.0-16.0); Mean Corpuscular HGB Conc 32 g/dl (31-36); Mean Corpuscular Hemoglobin 27 pg (27-31); Mean Corpuscular Volume 82 fL (80-97); Mean Platelet Volume 9 um3 (7.4-10.4); Red Blood Count 4.38 10^6/ul (4.0-5.4); Red Cell Distribution Width 17 % (10.5-15); White Blood Count 12.3 10^3/ul (3.5-10.8)
[2016-11-22 00:54] LABS: Urine Bilirubin Negative (Negative); Urine Glucose 3+(>=500 mg/dL) (Negative); Urine Nitrite Negative (Negative)
[2016-11-22 01:03] LABS: ALT 19 U/L (7-52); AST 23 U/L (13-39); Acetaminophen < 15 mcg/mL; Albumin 3.8 g/dL (3.2-5.2); Alcohol < 10 mg/dL (<10); Alkaline Phosphatase 133 U/L (34-104); Anion Gap 6 mmol/L (2-11); BUN/Creatinine Ratio 17.3 (8-20); Blood Urea Nitrogen 14 mg/dL (6-24); CO2 Carbon Dioxide 24 mmol/L (22-32); Calcium 8.9 mg/dL (8.6-10.3); Chloride 101 mmol/L (101-111); EGFR African American 96.3 (>60); EGFR Non-African American 74.8 (>60); Globulin 3.4 g/dL (2-4); Glucose 320 mg/dL (70-100); Potassium 4.6 mmol/L (3.5-5.0); Salicylate < 2.50 mg/dL (<30); Sodium 131 mmol/L (133-145); Total Protein 7.2 g/dL (6.4-8.9)
[2016-11-22 01:06] LABS: Benzodiazepine Urine Screen None Detected (None Detect)
[2016-11-22 01:13] LABS: TSH (Thyroid Stimulating Horm) 1.93 mcIU/mL (0.34-5.60)
[2016-11-22 02:43] VITALS: BP 134/77
--- NOTE | 2016-11-22 04:13 | ED ---
Paramjit Rosales Adam, scribed for Heriberto Way MD on 11/21/16 at 2356 . Complex/Multi-Sys Presentation - HPI Summary HPI Summary: Pt is a 51 year old female presenting with confusion, fatigue, and SI. She states that she has high blood sugar because she misplaced her insulin and didn' t take any today. She takes Lantus and NovoLog. She also states that she recently moved back in with her and she has been dealing with significant stress. She states that she would like to speak to someone from mental health because she has been having suicidal thoughts. When asked if she had a suicidal plan, she stated that she was thinking about "running from the police." Her appetite has not been normal and she has not been sleeping well for the past week. She states that she fractured her right big toe 1 week ago. PMHx includes DM, HTN, and thyroid disease. - History Of Current Complaint Chief Complaint: EDGeneral Time Seen by Provider: 11/21/16 23:54 Hx Obtained From: Patient Onset/Duration: Gradual Onset, Still Present Timing: Constant Severity Currently: Moderate Severity Initially: Moderate Aggravating Factor(s): Missed insulin Alleviating Factor(s): Nothing Associated Signs And Symptoms: Positive: Confusion, Other - Depression, fatigue - Allergies/Home Medications Allergies/Adverse Reactions: Allergies Allergy/AdvReac Type Severity Reaction Status Date / Time Ibuprofen Allergy Severe Hives Verified 11/11/16 18:04 Latex Allergy Severe Rash Verified 11/11/16 18:04 Sulfa Antibiotics Allergy Severe Hives Verified 11/11/16 18:04 Penicillins Allergy Intermediate Rash Verified 11/11/16 18:04 Nalbuphine Allergy Unknown Unknown Verified 11/11/16 18:04 Reaction Details Perphenazine Allergy Unknown Unknown Verified 11/11/16 18:04 Reaction Details Ciprofloxacin [From Cipro] AdvReac Severe Dizziness Verified 11/11/16 18:04 Tramadol AdvReac Severe Altered Verified 11/11/16 18:04 Mental Status Bajandas AdvReac Mild See Comment Verified 11/11/16 18:04 ENVIRONMENTAL Allergy Mild SINUS Uncoded 11/11/16 18:04 PMH/Surg Hx/FS Hx/Imm Hx Endocrine/Hematology History: Reports: Hx Diabetes, Hx Thyroid Disease, Other Endocrine/Hematological Disorders - Chronic pancreatitis Denies: Hx Anticoagulant Therapy Cardiovascular History: Reports: Hx Hypertension, Other Cardiovascular Problems/ Disorders - PER H&P- HX OF PSVT 04/2008 Denies: Hx Pacemaker/ICD Respiratory History: Reports: Hx Asthma, Hx Seasonal Allergies, Hx Sleep Apnea - uses c-pap but hasn't used it for 5 mos due to being broken Denies: Hx Chronic Bronchitis, Hx Chronic Obstructive Pulmonary Disease (COPD ), Hx Cystic Fibrosis, Hx Lung Cancer, Hx Pleural Effusion, Hx Pneumonia, Hx Pulmonary Edema, Hx Pulmonary Embolism, Other Respiratory Problems/Disorders GI History: Reports: Hx Gall Bladder Disease, Hx Gastroesophageal Reflux Disease , Hx Gastrointestinal Bleed, Hx Irritable Bowel, Other GI Disorders - pancreatitis/gastroenteritis Denies: Hx Ulcer History: Denies: Hx Renal Disease Musculoskeletal History: Reports: Hx Arthritis, Hx Back Problems, Other Musculoskeletal History - GEN MUSCULOSKELETAL PAIN Denies: Hx Bursitis, Hx Congenital Bone Abnormalities, Hx Fibromyalgia, Hx Gout, Hx Orthopedic Injury, Hx Osteoporosis, Hx Scoliosis, Hx Tendonitis Sensory History: Reports: Hx Cataracts, Hx Contacts or Glasses, Hx Vision Problem Denies: Hx Eye Injury, Hx Eye Prosthesis, Hx Glaucoma, Hx Macular Degeneration, Hx Deafness, Hx Hearing Aid, Hx Hearing Problem, Other Sensory Impairments Opthamlomology History: Reports: Hx Cataracts, Hx Contacts or Glasses, Hx Vision Problem Denies: Hx Eye Injury, Hx Eye Prosthesis, Hx Glaucoma, Hx Macular Degeneration, Other Sensory Impairments Neurological History: Reports: Hx Developmental Delay - intellectual disability Denies: Hx Dementia, Hx Seizures, Other Neuro Impairments/Disorders Psychiatric History: Reports: Hx Anxiety, Hx Depression, Hx Post Traumatic Stress Disorder, Hx Inpatient Treatment, Hx Community Mental Health Tx, Hx Bipolar Disorder - pt manic, Hx Suicide Attempt - past med overdoses, Hx of Violent Episodes Against Others, Other Psychiatric Issues/Disorders - PSYCHOSIS NOS, HX OF PTSD, SCHIZOAFFECTIVE DISORDER, BORDERLINE PERSONALITY Denies: Hx Attention Deficit Hyperactivity Disorder, Hx Eating Disorder, Hx Panic Disorder, Hx Schizophrenia, Hx Substance Abuse - Surgical History Surgery Procedure, Year, and Place: 2011-CATARACT EXTRACTION. GALLBLADDER REMOVED . HIP SURGERY ACHILD Hx Anesthesia Reactions: No - Immunization History Date of Tetanus Vaccine: Unknown Date of Influenza Vaccine: May 2012 Infectious Disease History: Denies: Hx Clostridium Difficile, Hx Hepatitis, Hx Human Immunodeficiency Virus (HIV), Hx of Known/Suspected MRSA, Hx Shingles, Hx Tuberculosis, Hx Known/ Suspected VRE, Hx Known/Suspected VRSA, History Other Infectious Disease, Traveled Outside the [place] in Last 30 Days - Family History Known Family History: Positive: Other - Anxiety and depression, [place] - father Negative: Cardiac Disease, Hypertension, Diabetes Family History: Depression and anxiety - Social History Occupation: Disabled Lives: Alone Alcohol Use: None Hx Substance Use: Yes Substance Use Type: Reports: Prescribed Hx Tobacco Use: Yes Smoking Status (MU): Former Smoker Type: Cigarettes Length of Time of Smoking/Using Tobacco: 2 year ago Have You Smoked in the Last Year: No Review of Systems Positive: Fatigue. Negative: Fever Positive: Myalgia - Right big toe Neurological: Other - Confusion Positive: Depressed All Other Systems Reviewed And Are Negative: Yes Physical Exam - Summary Physical Exam Summary: The patient is well-nourished in no acute distress and in no acute pain. The skin is warm and dry and skin color reflects adequate perfusion. HEENT: The head is normocephalic and atraumatic. The pupils are equal and reactive. The conjunctivae are clear and without drainage. Nares are patent and without drainage. Mouth reveals dry mucous membranes and the throat is without erythema and exudate. The external ears are intact. Neck is supple with full range of motion and non-tender. There are no carotid bruits. There is no neck vein distension. Respiratory: Chest is non-tender. Lungs are clear to auscultation and breath sounds are symmetrical and equal. Cardiovascular: Heart is regular rate and rhythm. There is no murmur or rub auscultated. There is no peripheral edema and pulses are symmetrical and equal. Abdomen: The abdomen is obese, soft and non-tender. There are normal bowel sounds heard in all four quadrants and there is no organomegaly palpated. Musculoskeletal: There is no back pain noted. Tenderness over the right great toe. Extremities have full range of motion. There is good capillary refill. There is no peripheral edema or calf tenderness elicited. Neurological: Patient is alert and oriented to person, place and time. The patient has symmetrical motor strength in all four extremities. Cranial nerves are grossly intact. Deep tendon reflexes are symmetrical and equal in all four extremities. Psychiatric: The patient appears depressed. Triage Information Reviewed: Yes Vital Signs On Initial Exam: Initial Vitals Temp Pulse Resp BP Pulse Ox 98.4 F 80 18 174/66 98 11/21/16 21:31 11/21/16 21:31 11/21/16 21:31 11/21/16 21:31 11/21/16 21:31 Vital Signs Reviewed: Yes Diagnostics - Vital Signs Vital Signs Temp Pulse Resp BP Pulse Ox 11/21/16 21:31 98.4 F 80 18 174/66 98 - Laboratory Lab Results: Lab Results 11/22/16 11/22/16 11/22/16 Range/Units 00:30 00:30 00:30 WBC 12.3 H (3.5-10.8) 10^3/ul RBC 4.38 (4.0-5.4) 10^6/ul Hgb 11.6 L (12.0-16.0) g/dl Hct 36 (35-47) % MCV 82 (80-97) fL MCH 27 (27-31) pg MCHC 32 (31-36) g/dl RDW 17 H (10.5-15) % Plt Count 207 (150-450) 10^3/ul MPV 9 (7.4-10.4) um3 Neut % (Auto) 64.5 (38-83) % Lymph % (Auto) 25.7 (25-47) % Gilchrist % (Auto) 6.5 (1-9) % Eos % (Auto) 2.6 (0-6) % Baso % (Auto) 0.7 (0-2) % Absolute Neuts (auto) 7.9 H (1.5-7.7) 10^3/ul Absolute Lymphs (auto) 3.2 (1.0-4.8) 10^3/ul Absolute Monos (auto) 0.8 (0-0.8) 10^3/ul Absolute Eos (auto) 0.3 (0-0.6) 10^3/ul Absolute Basos (auto) 0.1 (0-0.2) 10^3/ul Absolute Nucleated RBC 0.01 10^3/ul Nucleated RBC % 0.1 Sodium 131 L (133-145) mmol/L Potassium 4.6 (3.5-5.0) mmol/L Chloride 101 (101-111) mmol/L Carbon Dioxide 24 (22-32) mmol/L Anion Gap 6 (2-11) mmol/L BUN 14 (6-24) mg/dL Creatinine 0.81 (0.51-0.95) mg/dL Est GFR ( Amer) 96.3 (>60) Est GFR (Non-Af Amer) 74.8 (>60) BUN/Creatinine Ratio 17.3 (8-20) Glucose 320 H (70-100) mg/dL Lactic Acid 1.1 (0.5-2.0) mmol/L Calcium 8.9 (8.6-10.3) mg/dL Total Bilirubin 0.30 (0.2-1.0) mg/dL AST 23 (13-39) U/L ALT 19 (7-52) U/L Alkaline Phosphatase 133 H (34-104) U/L Total Protein 7.2 (6.4-8.9) g/dL Albumin 3.8 (3.2-5.2) g/dL Globulin 3.4 (2-4) g/dL Albumin/Globulin Ratio 1.1 (1-3) TSH 1.93 (0.34-5.60) mcIU/mL Urine Color Urine Appearance Urine pH (5-9) Ur Specific [place] (1.010-1.030) Urine Protein (Negative) Urine Ketones (Negative) Urine Blood (Negative) Urine Nitrate (Negative) Urine Bilirubin (Negative) Urine Urobilinogen (Negative) Ur Leukocyte Esterase (Negative) Urine Glucose (Negative) Salicylates < 2.50 (<30) mg/dL Urine Opiates Screen (None Detect) Acetaminophen < 15 mcg/mL Ur Barbiturates Screen (None Detect) Ur Phencyclidine Scrn (None Detect) Ur Amphetamines Screen (None Detect) U Benzodiazepines Scrn (None Detect) Urine Cocaine Screen (None Detect) U Cannabinoids Screen (None Detect) Serum Alcohol < 10 (<10) mg/dL 11/22/16 11/22/16 Range/Units 00:40 00:40 WBC (3.5-10.8) 10^3/ul RBC (4.0-5.4) 10^6/ul Hgb (12.0-16.0) g/dl Hct (35-47) % MCV (80-97) fL MCH (27-31) pg MCHC (31-36) g/dl RDW (10.5-15) % Plt Count (150-450) 10^3/ul MPV (7.4-10.4) um3 Neut % (Auto) (38-83) % Lymph % (Auto) (25-47) % Gilchrist % (Auto) (1-9) % Eos % (Auto) (0-6) % Baso % (Auto) (0-2) % Absolute Neuts (auto) (1.5-7.7) 10^3/ul Absolute Lymphs (auto) (1.0-4.8) 10^3/ul Absolute Monos (auto) (0-0.8) 10^3/ul Absolute Eos (auto) (0-0.6) 10^3/ul Absolute Basos (auto) (0-0.2) 10^3/ul Absolute Nucleated RBC 10^3/ul Nucleated RBC % Sodium (133-145) mmol/L Potassium (3.5-5.0) mmol/L Chloride (101-111) mmol/L Carbon Dioxide (22-32) mmol/L Anion Gap (2-11) mmol/L BUN (6-24) mg/dL Creatinine (0.51-0.95) mg/dL Est GFR ( Amer) (>60) Est GFR (Non-Af Amer) (>60) BUN/Creatinine Ratio (8-20) Glucose (70-100) mg/dL Lactic Acid (0.5-2.0) mmol/L Calcium (8.6-10.3) mg/dL Total Bilirubin (0.2-1.0) mg/dL AST (13-39) U/L ALT (7-52) U/L Alkaline Phosphatase (34-104) U/L Total Protein (6.4-8.9) g/dL Albumin (3.2-5.2) g/dL Globulin (2-4) g/dL Albumin/Globulin Ratio (1-3) TSH (0.34-5.60) mcIU/mL Urine Color Straw Urine Appearance Clear Urine pH 6.0 (5-9) Ur Specific [place] 1.012 (1.010-1.030) Urine Protein Negative (Negative) Urine Ketones Negative (Negative) Urine Blood Negative (Negative) Urine Nitrate Negative (Negative) Urine Bilirubin Negative (Negative) Urine Urobilinogen Negative (Negative) Ur Leukocyte Esterase Negative (Negative) Urine Glucose 3+(>=500 mg/dl) H (Negative) Salicylates (<30) mg/dL Urine Opiates Screen None detected (None Detect) Acetaminophen mcg/mL Ur Barbiturates Screen None detected (None Detect) Ur Phencyclidine Scrn None detected (None Detect) Ur Amphetamines Screen None detected (None Detect) U Benzodiazepines Scrn None detected (None Detect) Urine Cocaine Screen None detected (None Detect) U Cannabinoids Screen None detected (None Detect) Serum Alcohol (<10) mg/dL Result Diagrams: 11/22/16 00:30 11/22/16 00:30 Lab Statement: Any lab studies that have been ordered have been reviewed, and results considered in the medical decision making process. - Additional Comments Diagnostic Additional Comments: Glucose - 320 Complex Multi-Symp Course/Dx Course Of Treatment: 01:23 - Patient is medically clear for a mental health evaluation. - Diagnoses Differential Diagnoses/HQI/PQRI: Other - hyperglycemia secondary to non- compliance, depression, acute situational disturbance Provider Diagnoses: Poorly controlled diabetes mellitus, Depression Discharge - Discharge Plan Condition: Stable Disposition: HOME Referrals: Gabo Sullivan MD [Primary Care Provider] - Additional Instructions: Per completion of a mental health evaluation, you are cleared for release and do not require inpatient psychiatric hospitalization at this time. Please go to nearest emergency room or call 911 if safety concerns arise or condition worsens. Important Phone Numbers: [facility] ph:[phone] Suicide Prevention and Crisis Services ph:[phone] National Suicide Prevention Lifeline ph:[phone] ([phone]) [facility] ph:[phone] Alcoholics Anonymous ph:[phone] [facility] ph:[phone] [place] [employer] ph:[phone] The documentation as recorded by the Paramjit roth Adam accurately reflects the service I personally performed and the decisions made by , Heriberto Way MD.
== END 2016-11-22 02:41 | disposition home or self-care (01) ==
LOC: ED 21:25
DX: E11.9 Type 2 diabetes mellitus without complications (principal); F32.9 Major depressive disorder, single episode, unspecified; Z88.0 Allergy status to penicillin; Z88.2 Allergy status to sulfonamides; I10 Essential (primary) hypertension; Z87.891 Personal history of nicotine dependence
CPT/HCPCS: 36415; 80053; 80307; 80320; 80329; 81003; 83605; 84443; 85025; 99284; G0480

== ENCOUNTER 2016-12-06 15:12 | Emergency (ER) | payer MEDICARE, MEDICAID ==
[2016-12-06 16:34] LABS: Hematocrit 37 % (35-47); Mean Corpuscular HGB Conc 32 g/dl (31-36); Mean Corpuscular Hemoglobin 26 pg (27-31); Mean Corpuscular Volume 82 fL (80-97); Mean Platelet Volume 9 um3 (7.4-10.4); Red Blood Count 4.57 10^6/ul (4.0-5.4); Red Cell Distribution Width 17 % (10.5-15)
[2016-12-06 17:07] LABS: ALT 22 U/L (7-52); AST 28 U/L (13-39); Albumin 3.8 g/dL (3.2-5.2); Alkaline Phosphatase 129 U/L (34-104); Anion Gap 6 mmol/L (2-11); BUN/Creatinine Ratio 25.3 (8-20); Blood Urea Nitrogen 20 mg/dL (6-24); CO2 Carbon Dioxide 27 mmol/L (22-32); Calcium 9.5 mg/dL (8.6-10.3); Chloride 104 mmol/L (101-111); Creatine Kinase 130 U/L (10-223); EGFR African American 99.1 (>60); Globulin 3.4 g/dL (2-4); Glucose 165 mg/dL (70-100); Potassium 4.6 mmol/L (3.5-5.0); Sodium 137 mmol/L (133-145); Total Protein 7.2 g/dL (6.4-8.9)
[2016-12-06 17:20] LABS: TSH (Thyroid Stimulating Horm) 1.24 mcIU/mL (0.34-5.60)
[2016-12-06 17:23] LABS: Acetaminophen < 15 mcg/mL; Alcohol < 10 mg/dL (<10); Salicylate < 2.50 mg/dL (<30)
[2016-12-06] MEDS: NS 0.9% 1000 ML* 2,000 ML IV ONE (18:28)
--- NOTE | 2016-12-06 18:47 | ED ---
dennis Rosales Timothy, scribed for Heriberto Way MD on 12/06/16 at 1620 . Substance Abuse/Use - HPI Summary HPI Summary: LEVEL V CAVEAT: PT IS UNRESPONSIVE TO QUESTIONS Taryn Schulz is a 51 yo female presenting to [facility] with an overdose of an unknown amount of tylenol 2 hours ago. She presents lethargic with slurred speech and denies taking other medications at triage, but upon examination she is not responsive to speech. Her MHx includes thyroid disease, HTN, asthma, BiPAP dependent, GERD, gall bladder disease, IBS, DM II, chronic pancreatitis, PTSD, bipolar disorder, depression, anxiety, substance use, tobacco use, suicide attempt, intellectual disability, borderline personality disorder, schizoaffective disorder. - History Of Current Complaint Chief Complaint: EDOverdose Stated Complaint: OVERDOSE Time Seen by Provider: 12/06/16 16:13 Hx Obtained From: Patient Hx From Patient Unobtainable Due To: Other Hx Last Menstrual Period: 09/29/16 Onset/Duration of Drug/ETOH Abuse: Hours Ingestion History: Type/Name Of Drug - tylenol Overdose Characteristics: Oral Severity Initially: Moderate Severity Currently: Moderate Character: Lethargic Associated Signs And Symptoms: Other: - unresponsive to questions Related Hx: Suicidal: Prior Attempt(s) - Allergies/Home Medications Allergies/Adverse Reactions: Allergies Allergy/AdvReac Type Severity Reaction Status Date / Time Ibuprofen Allergy Severe Hives Verified 11/11/16 18:04 Latex Allergy Severe Rash Verified 11/11/16 18:04 Sulfa Antibiotics Allergy Severe Hives Verified 11/11/16 18:04 Penicillins Allergy Intermediate Rash Verified 11/11/16 18:04 Nalbuphine Allergy Unknown Unknown Verified 11/11/16 18:04 Reaction Details Perphenazine Allergy Unknown Unknown Verified 11/11/16 18:04 Reaction Details Ciprofloxacin [From Cipro] AdvReac Severe Dizziness Verified 11/11/16 18:04 Tramadol AdvReac Severe Altered Verified 11/11/16 18:04 Mental Status [place] AdvReac Mild See Comment Verified 11/11/16 18:04 ENVIRONMENTAL Allergy Mild SINUS Uncoded 11/11/16 18:04 PMH/Surg Hx/FS Hx/Imm Hx Endocrine/Hematology History: Reports: Hx Diabetes, Hx Thyroid Disease, Other Endocrine/Hematological Disorders - Chronic pancreatitis Denies: Hx Anticoagulant Therapy Cardiovascular History: Reports: Hx Hypertension, Other Cardiovascular Problems/ Disorders - PER H&P- HX OF PSVT 04/2008 Denies: Hx Pacemaker/ICD Respiratory History: Reports: Hx Asthma, Hx Seasonal Allergies, Hx Sleep Apnea - uses c-pap but hasn't used it for 5 mos due to being broken Denies: Hx Chronic Bronchitis, Hx Chronic Obstructive Pulmonary Disease (COPD ), Hx Cystic Fibrosis, Hx Lung Cancer, Hx Pleural Effusion, Hx Pneumonia, Hx Pulmonary Edema, Hx Pulmonary Embolism, Other Respiratory Problems/Disorders GI History: Reports: Hx Gall Bladder Disease, Hx Gastroesophageal Reflux Disease , Hx Gastrointestinal Bleed, Hx Irritable Bowel, Other GI Disorders - pancreatitis/gastroenteritis Denies: Hx Ulcer History: Denies: Hx Renal Disease Musculoskeletal History: Reports: Hx Arthritis, Hx Back Problems, Other Musculoskeletal History - GEN MUSCULOSKELETAL PAIN Denies: Hx Bursitis, Hx Congenital Bone Abnormalities, Hx Fibromyalgia, Hx Gout, Hx Orthopedic Injury, Hx Osteoporosis, Hx Scoliosis, Hx Tendonitis Sensory History: Reports: Hx Cataracts, Hx Contacts or Glasses, Hx Vision Problem Denies: Hx Eye Injury, Hx Eye Prosthesis, Hx Glaucoma, Hx Macular Degeneration, Hx Deafness, Hx Hearing Aid, Hx Hearing Problem, Other Sensory Impairments Opthamlomology History: Reports: Hx Cataracts, Hx Contacts or Glasses, Hx Vision Problem Denies: Hx Eye Injury, Hx Eye Prosthesis, Hx Glaucoma, Hx Macular Degeneration, Other Sensory Impairments Neurological History: Reports: Hx Developmental Delay - intellectual disability Denies: Hx Dementia, Hx Seizures, Other Neuro Impairments/Disorders Psychiatric History: Reports: Hx Anxiety, Hx Depression, Hx Post Traumatic Stress Disorder, Hx Inpatient Treatment, Hx Community Mental Health Tx, Hx Bipolar Disorder - pt manic, Hx Suicide Attempt - past med overdoses, Hx of Violent Episodes Against Others, Other Psychiatric Issues/Disorders - PSYCHOSIS NOS, HX OF PTSD, SCHIZOAFFECTIVE DISORDER, BORDERLINE PERSONALITY Denies: Hx Attention Deficit Hyperactivity Disorder, Hx Eating Disorder, Hx Panic Disorder, Hx Schizophrenia, Hx Substance Abuse - Surgical History Surgery Procedure, Year, and Place: 2011-CATARACT EXTRACTION. GALLBLADDER REMOVED . HIP SURGERY ACHILD Hx Anesthesia Reactions: No - Immunization History Date of Tetanus Vaccine: Unknown Date of Influenza Vaccine: May 2012 Infectious Disease History: Denies: Hx Clostridium Difficile, Hx Hepatitis, Hx Human Immunodeficiency Virus (HIV), Hx of Known/Suspected MRSA, Hx Shingles, Hx Tuberculosis, Hx Known/ Suspected VRE, Hx Known/Suspected VRSA, History Other Infectious Disease, Traveled Outside the [place] in Last 30 Days - Family History Known Family History: Positive: None - reviewed & noncontributory, Other - Anxiety and depression, [place] - father Negative: Cardiac Disease, Hypertension, Diabetes Family History: Depression and anxiety - Social History Alcohol Use: None Hx Substance Use: Yes Substance Use Type: Reports: Prescribed Hx Tobacco Use: Yes Smoking Status (MU): Former Smoker Type: Cigarettes Length of Time of Smoking/Using Tobacco: 2 year ago Have You Smoked in the Last Year: No - Additional Comments History Additional Comments: LEVEL V CAVEAT: PT IS NOT RESPONSIVE TO VERBAL STIMULI Review of Systems - ROS Summary Review of Systems Summary: LEVEL V CAVEAT: PT CANNOT REVIEW SYSTEMS SHE IS UNRESPONSIVE TO VERBAL STIMULI All Other Systems Reviewed And Are Negative: No Physical Exam - Summary Physical Exam Summary: LEVEL V CAVEAT; PT IS UNREPSONSIVE TO STIMULI AND CANNOT EFFECTIVELY PARTICIPATE IN EXAM The patient is obese and not responsive to painful or verbal stimuli. The skin is warm and dry and skin color reflects adequate perfusion. HEENT: The head is normocephalic and atraumatic. Eyes could not be seen as Pt refused to open them. Mouth and throat could not be seen as Pt clenched her teeth on tongue depressor. The external ears are intact. The ear canals are patent and without drainage. The tympanic membranes are intact. Neck is supple. There are no carotid bruits. There is no neck vein distension. Respiratory: Lungs are clear to auscultation and breath sounds are symmetrical and equal. Cardiovascular: Hear is regular rate and rhythm. There is no murmur or rub auscultated. There is no peripheral edema and pulses are symmetrical and equal. Abdomen: The abdomen is soft, obese, and non-tender. There are normal bowel sounds heard in all four quadrants and there is no organomegaly palpated. Musculoskeletal: There is no peripheral edema. Neurological: Psychiatric: The patient is nonresponsive to painful and verbal stimuli Vital Signs On Initial Exam: Initial Vitals Temp Pulse Resp BP Pulse Ox 97.6 F 72 14 149/74 97 12/06/16 15:34 12/06/16 15:34 12/06/16 15:34 12/06/16 15:34 12/06/16 15:34 Diagnostics - Vital Signs Vital Signs Temp Pulse Resp BP Pulse Ox 12/06/16 16:12 73 16 111/59 98 12/06/16 15:46 97.6 F 72 16 149/74 97 12/06/16 15:34 97.6 F 72 14 149/74 97 - Laboratory Lab Results: Lab Results 12/06/16 12/06/16 12/06/16 Range/Units 16:11 16:11 16:11 WBC 13.0 H (3.5-10.8) 10^3/ul RBC 4.57 (4.0-5.4) 10^6/ul Hgb 12.0 (12.0-16.0) g/dl Hct 37 (35-47) % MCV 82 (80-97) fL MCH 26 L (27-31) pg MCHC 32 (31-36) g/dl RDW 17 H (10.5-15) % Plt Count 231 (150-450) 10^3/ul MPV 9 (7.4-10.4) um3 Neut % (Auto) 70.4 (38-83) % Lymph % (Auto) 21.8 L (25-47) % Oliver % (Auto) 4.8 (1-9) % Eos % (Auto) 2.5 (0-6) % Baso % (Auto) 0.5 (0-2) % Absolute Neuts (auto) 9.1 H (1.5-7.7) 10^3/ul Absolute Lymphs (auto) 2.8 (1.0-4.8) 10^3/ul Absolute Monos (auto) 0.6 (0-0.8) 10^3/ul Absolute Eos (auto) 0.3 (0-0.6) 10^3/ul Absolute Basos (auto) 0.1 (0-0.2) 10^3/ul Absolute Nucleated RBC 0.02 10^3/ul Nucleated RBC % 0.1 INR (Anticoag Therapy) 0.92 (0.89-1.11) Sodium 137 (133-145) mmol/L Potassium 4.6 (3.5-5.0) mmol/L Chloride 104 (101-111) mmol/L Carbon Dioxide 27 (22-32) mmol/L Anion Gap 6 (2-11) mmol/L BUN 20 (6-24) mg/dL Creatinine 0.79 (0.51-0.95) mg/dL Est GFR ( Amer) 99.1 (>60) Est GFR (Non-Af Amer) 77.0 (>60) BUN/Creatinine Ratio 25.3 H (8-20) Glucose 165 H (70-100) mg/dL Calcium 9.5 (8.6-10.3) mg/dL Total Bilirubin 0.20 (0.2-1.0) mg/dL AST 28 (13-39) U/L ALT 22 (7-52) U/L Alkaline Phosphatase 129 H (34-104) U/L Total Creatine Kinase 130 (10-223) U/L Total Protein 7.2 (6.4-8.9) g/dL Albumin 3.8 (3.2-5.2) g/dL Globulin 3.4 (2-4) g/dL Albumin/Globulin Ratio 1.1 (1-3) TSH 1.24 (0.34-5.60) mcIU/mL Salicylates < 2.50 (<30) mg/dL Acetaminophen < 15 mcg/mL Serum Alcohol < 10 (<10) mg/dL 12/06/16 Range/Units 17:30 WBC (3.5-10.8) 10^3/ul RBC (4.0-5.4) 10^6/ul Hgb (12.0-16.0) g/dl Hct (35-47) % MCV (80-97) fL MCH (27-31) pg MCHC (31-36) g/dl RDW (10.5-15) % Plt Count (150-450) 10^3/ul MPV (7.4-10.4) um3 Neut % (Auto) (38-83) % Lymph % (Auto) (25-47) % Oliver % (Auto) (1-9) % Eos % (Auto) (0-6) % Baso % (Auto) (0-2) % Absolute Neuts (auto) (1.5-7.7) 10^3/ul Absolute Lymphs (auto) (1.0-4.8) 10^3/ul Absolute Monos (auto) (0-0.8) 10^3/ul Absolute Eos (auto) (0-0.6) 10^3/ul Absolute Basos (auto) (0-0.2) 10^3/ul Absolute Nucleated RBC 10^3/ul Nucleated RBC % INR (Anticoag Therapy) (0.89-1.11) Sodium (133-145) mmol/L Potassium (3.5-5.0) mmol/L Chloride (101-111) mmol/L Carbon Dioxide (22-32) mmol/L Anion Gap (2-11) mmol/L BUN (6-24) mg/dL Creatinine (0.51-0.95) mg/dL Est GFR ( Amer) (>60) Est GFR (Non-Af Amer) (>60) BUN/Creatinine Ratio (8-20) Glucose (70-100) mg/dL Calcium (8.6-10.3) mg/dL Total Bilirubin (0.2-1.0) mg/dL AST (13-39) U/L ALT (7-52) U/L Alkaline Phosphatase (34-104) U/L Total Creatine Kinase (10-223) U/L Total Protein (6.4-8.9) g/dL Albumin (3.2-5.2) g/dL Globulin (2-4) g/dL Albumin/Globulin Ratio (1-3) TSH (0.34-5.60) mcIU/mL Salicylates (<30) mg/dL Acetaminophen < 15 mcg/mL Serum Alcohol (<10) mg/dL Result Diagrams: 12/06/16 16:11 12/06/16 16:11 Lab Statement: Any lab studies that have been ordered have been reviewed, and results considered in the medical decision making process. - EKG 1717 Cardiac Rate: NL - 78 BPM EKG Interpretation: NSR @ 78 BPM, nonspecific ST changes, PRWP. Course/Dx - Course Assessment/Plan: Taryn Schulz is a 51 yo female presenting to [facility] after an overdose of unknown amount of tylenol at 1330, and is now lethargic and unresponsive to verbal or painful stimuli. In the ED she received IV fluids. her EKG suggested nonspecific ST changes and PRWP. She is medically clear for a MHUE at 1817. Her MHUE is pending at the time of shift change, and she will be signed out. there is no evidence for acetaminophen OD or ingestion. - Diagnoses Differential Diagnosis/HQI/PQRI: Positive: Depression, Other - suicide ideation , acetaminophen od Provider Diagnoses: Depression, Depression Discharge - Discharge Plan Condition: Stable Disposition: OTHER Discharge Disposition Comment: signed out pending MHUE Referrals: Gabo Sullivan MD [Primary Care Provider] - The documentation as recorded by the dennis roth Timothy accurately reflects the service I personally performed and the decisions made by me, Heriberto Way MD.
[2016-12-06 20:58] LABS: Urine Bacteria Absent (Absent); Urine Bilirubin Negative (Negative); Urine Glucose 1+(50 mg/dL) (Negative); Urine Nitrite Negative (Negative)
[2016-12-06 21:22] LABS: Benzodiazepine Urine Screen None Detected (None Detect)
[2016-12-06] MEDS ORDERED: Gabapentin CAP(*) 300 MG ONE (22:25)
[2016-12-06] MEDS ORDERED: Insulin GLARGINE(*) 1 UNITS UNIT ONE (22:28)
[2016-12-06] MEDS ORDERED: diPHENhydraMINE PO* 50 MG ONE (22:55)
[2016-12-07 09:47] VITALS: BP 138/78
== END 2016-12-07 07:30 ==
LOC: ED 15:12
DX: F32.9 Major depressive disorder, single episode, unspecified (principal)
CPT/HCPCS: 36415; 80053; 80307; 80320; 80329; 81003; 81015; 82550; 84443; 85025; 85610; 87086; 93005; 99285; A9270-GY; G0480

== ENCOUNTER 2016-12-09 23:05 | Emergency (ER) | payer MEDICARE, MEDICAID ==
--- NOTE | 2016-12-09 23:46 | ED ---
Mary Rosales Michael, scribed for David Gamez MD on 12/09/16 at 2337 . Altered Mental Status - HPI Summary HPI Summary: 51 y/o female comes to the ED presenting with AMS. The pt reports SI thoughts, and she took 5 Naproxen tabs of 500mg at 2309 tonight. The aggravating factors for her symptoms are unknown. The pt denies all other symptoms. The PMHx is significant for schizoaffective disorder and borderline personality disorder. - History Of Current Complaint Chief Complaint: EDMentalHealth Stated Complaint: POSS OVERDOSE Time Seen by Provider: 12/09/16 23:28 Hx Obtained From: Patient, Medical Records Hx Last Menstrual Period: 09/29/16 Onset/Duration: Still Present Timing: Lasting Hours Severity Initially: Mild Severity Currently: Mild Aggravating Factor(s): Unknown Alleviating Factor(s): Nothing Associated Signs And Symptoms: Negative: Negative - AMS Has Suicidal: Thoughts, With A Plan - Allergies/Home Medications Allergies/Adverse Reactions: Allergies Allergy/AdvReac Type Severity Reaction Status Date / Time Ibuprofen Allergy Severe Hives Verified 11/11/16 18:04 Latex Allergy Severe Rash Verified 11/11/16 18:04 Sulfa Antibiotics Allergy Severe Hives Verified 11/11/16 18:04 Penicillins Allergy Intermediate Rash Verified 11/11/16 18:04 Nalbuphine Allergy Unknown Unknown Verified 11/11/16 18:04 Reaction Details Perphenazine Allergy Unknown Unknown Verified 11/11/16 18:04 Reaction Details Ciprofloxacin [From Cipro] AdvReac Severe Dizziness Verified 11/11/16 18:04 Tramadol AdvReac Severe Altered Verified 11/11/16 18:04 Mental Status [place] AdvReac Mild See Comment Verified 11/11/16 18:04 ENVIRONMENTAL Allergy Mild SINUS Uncoded 11/11/16 18:04 PMH/Surg Hx/FS Hx/Imm Hx Endocrine/Hematology History: Reports: Hx Diabetes, Hx Thyroid Disease, Other Endocrine/Hematological Disorders - Chronic pancreatitis Denies: Hx Anticoagulant Therapy Cardiovascular History: Reports: Hx Hypertension, Other Cardiovascular Problems/ Disorders - PER H&P- HX OF PSVT 04/2008 Denies: Hx Pacemaker/ICD Respiratory History: Reports: Hx Asthma, Hx Seasonal Allergies, Hx Sleep Apnea - uses c-pap but hasn't used it for 5 mos due to being broken Denies: Hx Chronic Bronchitis, Hx Chronic Obstructive Pulmonary Disease (COPD ), Hx Cystic Fibrosis, Hx Lung Cancer, Hx Pleural Effusion, Hx Pneumonia, Hx Pulmonary Edema, Hx Pulmonary Embolism, Other Respiratory Problems/Disorders GI History: Reports: Hx Gall Bladder Disease, Hx Gastroesophageal Reflux Disease , Hx Gastrointestinal Bleed, Hx Irritable Bowel, Other GI Disorders - pancreatitis/gastroenteritis Denies: Hx Ulcer History: Denies: Hx Renal Disease Musculoskeletal History: Reports: Hx Arthritis, Hx Back Problems, Other Musculoskeletal History - GEN MUSCULOSKELETAL PAIN Denies: Hx Bursitis, Hx Congenital Bone Abnormalities, Hx Fibromyalgia, Hx Gout, Hx Orthopedic Injury, Hx Osteoporosis, Hx Scoliosis, Hx Tendonitis Sensory History: Reports: Hx Cataracts, Hx Contacts or Glasses, Hx Vision Problem Denies: Hx Eye Injury, Hx Eye Prosthesis, Hx Glaucoma, Hx Macular Degeneration, Hx Deafness, Hx Hearing Aid, Hx Hearing Problem, Other Sensory Impairments Opthamlomology History: Reports: Hx Cataracts, Hx Contacts or Glasses, Hx Vision Problem Denies: Hx Eye Injury, Hx Eye Prosthesis, Hx Glaucoma, Hx Macular Degeneration, Other Sensory Impairments Neurological History: Reports: Hx Developmental Delay - intellectual disability Denies: Hx Dementia, Hx Seizures, Other Neuro Impairments/Disorders Psychiatric History: Reports: Hx Anxiety, Hx Depression, Hx Post Traumatic Stress Disorder, Hx Inpatient Treatment, Hx Community Mental Health Tx, Hx Bipolar Disorder - pt manic, Hx Suicide Attempt - past med overdoses, Hx of Violent Episodes Against Others, Other Psychiatric Issues/Disorders - PSYCHOSIS NOS, HX OF PTSD, SCHIZOAFFECTIVE DISORDER, BORDERLINE PERSONALITY Denies: Hx Attention Deficit Hyperactivity Disorder, Hx Eating Disorder, Hx Panic Disorder, Hx Schizophrenia, Hx Substance Abuse - Surgical History Surgery Procedure, Year, and Place: 2011-CATARACT EXTRACTION. GALLBLADDER REMOVED . HIP SURGERY ACHILD Hx Anesthesia Reactions: No - Immunization History Date of Tetanus Vaccine: Unknown Date of Influenza Vaccine: May 2012 Infectious Disease History: Denies: Hx Clostridium Difficile, Hx Hepatitis, Hx Human Immunodeficiency Virus (HIV), Hx of Known/Suspected MRSA, Hx Shingles, Hx Tuberculosis, Hx Known/ Suspected VRE, Hx Known/Suspected VRSA, History Other Infectious Disease, Traveled Outside the [place] in Last 30 Days - Family History Known Family History: Positive: Other - Anxiety and depression, [place] - father Negative: Cardiac Disease, Hypertension, Diabetes Family History: Depression and anxiety - Social History Occupation: Disabled Lives: Alone Alcohol Use: None Hx Substance Use: Yes Substance Use Type: Reports: Prescribed Hx Tobacco Use: Yes Smoking Status (MU): Former Smoker Type: Cigarettes Length of Time of Smoking/Using Tobacco: 2 year ago Have You Smoked in the Last Year: No Review of Systems Negative: Fever Positive: Other - AMS All Other Systems Reviewed And Are Negative: Yes Physical Exam Triage Information Reviewed: Yes Vital Signs On Initial Exam: Initial Vitals Temp Pulse Resp BP Pulse Ox 98.3 F 80 18 139/79 99 12/09/16 23:08 12/09/16 23:08 12/09/16 23:08 12/09/16 23:08 12/09/16 23:08 Vital Signs Reviewed: Yes Appearance: Positive: Well-Appearing, No Pain Distress Skin: Positive: Warm Head/Face: Positive: Normal Head/Face Inspection Eyes: Positive: JENNIFER ENT: Positive: Hearing grossly normal Neck: Positive: Supple Respiratory/Lung Sounds: Positive: Clear to Auscultation, Breath Sounds Present Cardiovascular: Positive: RRR Abdomen Description: Positive: Nontender, Soft Bowel Sounds: Positive: Present Musculoskeletal: Positive: Strength/ROM Intact Neurological: Positive: Alert, Oriented to Person Place, Time Psychiatric: Positive: Depressed Diagnostics - Vital Signs Vital Signs Temp Pulse Resp BP Pulse Ox 12/09/16 23:08 98.3 F 80 18 139/79 99 - Laboratory Result Diagrams: 12/10/16 00:42 12/10/16 00:42 Lab Statement: Any lab studies that have been ordered have been reviewed, and results considered in the medical decision making process. Altered Mental Statu Course/Dx - Diagnoses Discharge Diagnoses: Chronic mental illness Discharge - Discharge Plan Condition: Stable Disposition: HOME Referrals: Gabo Sullivan MD [Primary Care Provider] - Additional Instructions: Meet with Sahil Mascorro counsellor at [facility]. Walk-in Hours at clinic at Tuesday, Tuesday, , and Tuesday from 10 AM to 2 :[address] [place] [address] The documentation as recorded by the Mary roth Michael accurately reflects the service I personally performed and the decisions made by me, David Gamez MD.
[2016-12-10 00:54] LABS: Hematocrit 37 % (35-47); Mean Corpuscular HGB Conc 33 g/dl (31-36); Mean Corpuscular Hemoglobin 27 pg (27-31); Mean Corpuscular Volume 81 fL (80-97); Mean Platelet Volume 9 um3 (7.4-10.4); Red Blood Count 4.54 10^6/ul (4.0-5.4); Red Cell Distribution Width 17 % (10.5-15); White Blood Count 10.6 10^3/ul (3.5-10.8)
[2016-12-10 01:04] LABS: ALT 18 U/L (7-52); AST 22 U/L (13-39); Albumin 3.6 g/dL (3.2-5.2); Alkaline Phosphatase 135 U/L (34-104); Anion Gap 6 mmol/L (2-11); BUN/Creatinine Ratio 21.8 (8-20); Blood Urea Nitrogen 19 mg/dL (6-24); CO2 Carbon Dioxide 25 mmol/L (22-32); Calcium 8.7 mg/dL (8.6-10.3); Chloride 107 mmol/L (101-111); EGFR African American 88.6 (>60); EGFR Non-African American 68.9 (>60); Globulin 3.3 g/dL (2-4); Glucose 254 mg/dL (70-100); Potassium 4.1 mmol/L (3.5-5.0); Sodium 138 mmol/L (133-145); Total Protein 6.9 g/dL (6.4-8.9)
[2016-12-10 01:21] LABS: Acetaminophen < 15 mcg/mL; Alcohol < 10 mg/dL (<10); Salicylate < 2.50 mg/dL (<30)
[2016-12-10 01:32] LABS: TSH (Thyroid Stimulating Horm) 4.33 mcIU/mL (0.34-5.60)
[2016-12-10 10:05] VITALS: BP 161/82
== END 2016-12-10 13:13 | disposition home or self-care (01) ==
LOC: ED 23:05
DX: Z00.8 Encounter for other general examination (principal); R41.82 Altered mental status, unspecified; R45.851 Suicidal ideations
CPT/HCPCS: 36415; 80053; 80320; 80329; 84443; 85025; 99282; G0480

== ENCOUNTER 2016-12-31 22:04 | Emergency (ER) | payer MEDICARE, MEDICAID ==
[2016-12-31 23:59] LABS: ALT 21 U/L (7-52); Albumin 3.3 g/dL (3.2-5.2); Alkaline Phosphatase 123 U/L (34-104); BUN/Creatinine Ratio 23.2 (8-20); Blood Urea Nitrogen 19 mg/dL (6-24); C Reactive Protein 6.25 mg/L (< 5.00); CO2 Carbon Dioxide 17 mmol/L (22-32); Calcium 8.4 mg/dL (8.6-10.3); Chloride 106 mmol/L (101-111); EGFR African American 94.9 (>60); EGFR Non-African American 73.8 (>60); Globulin 3.1 g/dL (2-4); Glucose 477 mg/dL (70-100); Sodium 133 mmol/L (133-145); Total Protein 6.4 g/dL (6.4-8.9)
[2017-01-01] MEDS ORDERED: NS 0.9% 1000 ML* 1,000 ML IV ONE (00:04)
[2017-01-01] MEDS ORDERED: Insulin REGULAR(*) 1 UNITS UNIT SUBCUT ONE ×2 (00:05→02:44)
[2017-01-01 00:56] LABS: Urine Bacteria 1+ (Absent); Urine Bilirubin Negative (Negative); Urine Glucose 3+(>=500 mg/dL) (Negative); Urine Nitrite Negative (Negative)
--- NOTE | 2017-01-01 01:14 | ED ---
HPI Diabetic - HPI Summary HPI Summary: Patient presents with a high glucometer reading this evening. She admits she has been eating all day and has not taken her regular medications. She called her PCP who advised her take 12 units of insulin. She then called EMS to come to the ED for evaluation. She denies AMS, CP or SOB. She also complains of right foot pain after a fall 1-2 weeks ago. She has pain and bruising on the top of the foot at the toes. - History Of Current Complaint Chief Complaint: EDDiabeticProb Time Seen by Provider: 12/31/16 22:29 Hx Obtained From: Patient, Family/It Program Manager Onset/Duration: Gradual Onset Timing: Constant Severity Initially: Moderate Severity Currently: Moderate Character: Alert Aggravating: Non-compliant Associated Signs & Symptoms: Negative - Allergies/Home Medications Allergies/Adverse Reactions: Allergies Allergy/AdvReac Type Severity Reaction Status Date / Time Ibuprofen Allergy Severe Hives Verified 11/11/16 18:04 Latex Allergy Severe Rash Verified 11/11/16 18:04 Sulfa Antibiotics Allergy Severe Hives Verified 11/11/16 18:04 Penicillins Allergy Intermediate Rash Verified 11/11/16 18:04 Nalbuphine Allergy Unknown Unknown Verified 11/11/16 18:04 Reaction Details Perphenazine Allergy Unknown Unknown Verified 11/11/16 18:04 Reaction Details Ciprofloxacin [From Cipro] AdvReac Severe Dizziness Verified 11/11/16 18:04 Tramadol AdvReac Severe Altered Verified 11/11/16 18:04 Mental Status [place] AdvReac Mild See Comment Verified 11/11/16 18:04 ENVIRONMENTAL Allergy Mild SINUS Uncoded 11/11/16 18:04 PMH/Surg Hx/FS Hx/Imm Hx Endocrine/Hematology History: Reports: Hx Diabetes, Hx Thyroid Disease, Other Endocrine/Hematological Disorders - Chronic pancreatitis Denies: Hx Anticoagulant Therapy Cardiovascular History: Reports: Hx Hypertension, Other Cardiovascular Problems/ Disorders - PER H&P- HX OF PSVT 04/2008 Denies: Hx Pacemaker/ICD Respiratory History: Reports: Hx Asthma, Hx Seasonal Allergies, Hx Sleep Apnea - uses c-pap but hasn't used it for 5 mos due to being broken Denies: Hx Chronic Bronchitis, Hx Chronic Obstructive Pulmonary Disease (COPD ), Hx Cystic Fibrosis, Hx Lung Cancer, Hx Pleural Effusion, Hx Pneumonia, Hx Pulmonary Edema, Hx Pulmonary Embolism, Other Respiratory Problems/Disorders GI History: Reports: Hx Gall Bladder Disease, Hx Gastroesophageal Reflux Disease , Hx Gastrointestinal Bleed, Hx Irritable Bowel, Other GI Disorders - pancreatitis/gastroenteritis Denies: Hx Ulcer History: Denies: Hx Renal Disease Musculoskeletal History: Reports: Hx Arthritis, Hx Back Problems, Other Musculoskeletal History - GEN MUSCULOSKELETAL PAIN Denies: Hx Bursitis, Hx Congenital Bone Abnormalities, Hx Fibromyalgia, Hx Gout, Hx Orthopedic Injury, Hx Osteoporosis, Hx Scoliosis, Hx Tendonitis Sensory History: Reports: Hx Cataracts, Hx Contacts or Glasses, Hx Vision Problem Denies: Hx Eye Injury, Hx Eye Prosthesis, Hx Glaucoma, Hx Macular Degeneration, Hx Deafness, Hx Hearing Aid, Hx Hearing Problem, Other Sensory Impairments Opthamlomology History: Reports: Hx Cataracts, Hx Contacts or Glasses, Hx Vision Problem Denies: Hx Eye Injury, Hx Eye Prosthesis, Hx Glaucoma, Hx Macular Degeneration, Other Sensory Impairments Neurological History: Reports: Hx Developmental Delay - intellectual disability Denies: Hx Dementia, Hx Seizures, Other Neuro Impairments/Disorders Psychiatric History: Reports: Hx Anxiety, Hx Depression, Hx Post Traumatic Stress Disorder, Hx Inpatient Treatment, Hx Community Mental Health Tx, Hx Bipolar Disorder - pt manic, Hx Suicide Attempt - past med overdoses, Hx of Violent Episodes Against Others, Other Psychiatric Issues/Disorders - PSYCHOSIS NOS, HX OF PTSD, SCHIZOAFFECTIVE DISORDER, BORDERLINE PERSONALITY Denies: Hx Attention Deficit Hyperactivity Disorder, Hx Eating Disorder, Hx Panic Disorder, Hx Schizophrenia, Hx Substance Abuse - Surgical History Surgery Procedure, Year, and Place: 2011-CATARACT EXTRACTION. GALLBLADDER REMOVED . HIP SURGERY ACHILD Hx Anesthesia Reactions: No - Immunization History Date of Tetanus Vaccine: Unknown Date of Influenza Vaccine: May 2012 Infectious Disease History: No Infectious Disease History: Denies: Hx Clostridium Difficile, Hx Hepatitis, Hx Human Immunodeficiency Virus (HIV), Hx of Known/Suspected MRSA, Hx Shingles, Hx Tuberculosis, Hx Known/ Suspected VRE, Hx Known/Suspected VRSA, History Other Infectious Disease, Traveled Outside the [place] in Last 30 Days - Family History Known Family History: Positive: None - reviewed & noncontributory, Other - Anxiety and depression, [place] - father Negative: Cardiac Disease, Hypertension, Diabetes Family History: Depression and anxiety - Social History Occupation: Disabled Lives: With Family Alcohol Use: None Hx Substance Use: Yes Substance Use Type: Reports: Prescribed Hx Tobacco Use: Yes Smoking Status (MU): Former Smoker Type: Cigarettes Length of Time of Smoking/Using Tobacco: 2 year ago Have You Smoked in the Last Year: No Review of Systems Negative: Vomiting, Nausea Positive: Myalgia Positive: Bruising Negative: Weakness, Paresthesia All Other Systems Reviewed And Are Negative: Yes Physical Exam Triage Information Reviewed: Yes Vital Signs On Initial Exam: Initial Vitals Temp Pulse Resp BP Pulse Ox 98.1 F 84 18 136/90 98 12/31/16 22:39 12/31/16 22:39 12/31/16 22:39 12/31/16 22:39 12/31/16 22:39 Vital Signs Reviewed: Yes Appearance: Positive: Well-Appearing, No Pain Distress, Obese Skin: Positive: Warm, Skin Color Reflects Adequate Perfusion, Dry, Soft Head/Face: Positive: Normal Head/Face Inspection Eyes: Positive: EOMI, JENNIFER, Conjunctiva Clear ENT: Positive: Hearing grossly normal Neck: Positive: Supple, Nontender Respiratory/Lung Sounds: Positive: Clear to Auscultation, Breath Sounds Present Cardiovascular: Positive: RRR - [place] Coma Scale Coma Scale Total: 15 Diagnostics - Vital Signs Vital Signs Temp Pulse Resp BP Pulse Ox 12/31/16 23:59 100 F 12/31/16 23:30 76 16 118/60 99 12/31/16 23:00 17 119/63 12/31/16 22:52 9 12/31/16 22:49 118/66 12/31/16 22:39 98.1 F 84 18 136/90 98 - Laboratory Lab Results: Lab Results 12/31/16 12/31/16 01/01/17 Range/Units 23:04 23:25 00:20 Sodium 133 (133-145) mmol/L Potassium TNP Chloride 106 (101-111) mmol/L Carbon Dioxide 17 L (22-32) mmol/L Anion Gap TNP BUN 19 (6-24) mg/dL Creatinine 0.82 (0.51-0.95) mg/dL Est GFR ( Amer) 94.9 (>60) Est GFR (Non-Af Amer) 73.8 (>60) BUN/Creatinine Ratio 23.2 H (8-20) Glucose 477 H (70-100) mg/dL POC Glucose (mg/dL) > 444 H* (74-106) mg/dL Calcium 8.4 L (8.6-10.3) mg/dL Total Bilirubin 0.10 L (0.2-1.0) mg/dL AST TNP ALT 21 (7-52) U/L Alkaline Phosphatase 123 H (34-104) U/L C-Reactive Protein 6.25 H (< 5.00) mg/L Total Protein 6.4 (6.4-8.9) g/dL Albumin 3.3 (3.2-5.2) g/dL Globulin 3.1 (2-4) g/dL Albumin/Globulin Ratio 1.1 (1-3) Urine Color Straw Urine Appearance Clear Urine pH 5.0 (5-9) Ur Specific [place] 1.022 (1.010-1.030) Urine Protein Negative (Negative) Urine Ketones Negative (Negative) Urine Blood 1+ H (Negative) Urine Nitrate Negative (Negative) Urine Bilirubin Negative (Negative) Urine Urobilinogen Negative (Negative) Ur Leukocyte Esterase Trace H (Negative) Urine WBC (Auto) Trace(0-5/hpf) (Absent) Urine RBC (Auto) 1+(3-5/hpf) H (Absent) Ur Squamous Epith Cells Present H (Absent) Urine Bacteria 1+ H (Absent) Urine Glucose 3+(>=500 mg/dl) H (Negative) Result Diagrams: 01/01/17 01:47 01/01/17 01:47 Lab Statement: Any lab studies that have been ordered have been reviewed, and results considered in the medical decision making process. - EKG No standard instances Cardiac Rate: NL EKG Rhythm: Sinus Rhythm ST Segment: Normal Ectopy: None EKG Comparison: No Significant Change Re-Evaluation - Re-Evaluation First Eval Re-Evaluation Time: 02:15 Change: Worse - patient reports "a funny feeling" in her chest that could be pain Diabetic Course/Dx - Diagnoses Differential Dx: Acute NH, CVA, Diabetic Ketoacidosis, Gestational Diabetes, Hyperglycemia, Hyperosmolar State, Hypoglycemia Provider Diagnoses: Hyperglycemia Discharge - Discharge Plan Condition: Stable Disposition: HOME Referrals: Gabo Sullivan MD [Primary Care Provider] -
[2017-01-01 02:04] LABS: Hematocrit 33 % (35-47); Hemoglobin 10.6 g/dl (12.0-16.0); Mean Corpuscular HGB Conc 32 g/dl (31-36); Mean Corpuscular Hemoglobin 27 pg (27-31); Mean Corpuscular Volume 82 fL (80-97); Mean Platelet Volume 9 um3 (7.4-10.4); Red Blood Count 3.99 10^6/ul (4.0-5.4); Red Cell Distribution Width 17 % (10.5-15); White Blood Count 10.2 10^3/ul (3.5-10.8)
[2017-01-01 02:06] LABS: Add Diff/Slide Review? Slide Review Added; Comments Flag Yes
[2017-01-01] MEDS ORDERED: NS 0.9% 1000 ML* 2,000 ML IV ONE (02:43)
[2017-01-01 03:02] LABS: Troponin I 0.03 ng/mL (<0.04)
[2017-01-01 05:06] LABS: Albumin 3.4 g/dL (3.2-5.2); BUN/Creatinine Ratio 24.7 (8-20); Calcium 8.7 mg/dL (8.6-10.3); EGFR Non-African American 79.3 (>60); Potassium 4.1 mmol/L (3.5-5.0); Total Bilirubin 0.2 mg/dL (0.2-1.0); Total Protein 6.4 g/dL (6.4-8.9)
[2017-01-01 06:23] LABS: Albumin 3.3 g/dL (3.2-5.2); Calcium 8.4 mg/dL (8.6-10.3); EGFR African American 126.3 (>60); EGFR Non-African American 98.2 (>60); Globulin 2.9 g/dL (2-4); Potassium 4.1 mmol/L (3.5-5.0); Total Bilirubin 0.2 mg/dL (0.2-1.0); Total Protein 6.2 g/dL (6.4-8.9)
[2017-01-01 06:25] LABS: Troponin I 0.02 ng/mL (<0.04)
--- NOTE | 2017-01-01 06:33 | ED ---
José Manuel Rosales Aidan, brendaned for Corey Easton on 01/01/17 at 0631 . Progress - Progress Note Progress Note: The patient's troponin was 0.02, which is negative. She will be discharged home with a diagnosis of uncontrolled diabetes. Re-Evaluation - Re-Evaluation First Eval Re-Evaluation Time: 02:15 Change: Worse - patient reports "a funny feeling" in her chest that could be pain Course/Dx - Diagnoses Provider Diagnoses: Hyperglycemia, Uncontrolled diabetes mellitus The documentation as recorded by the José Manuel roth Aidan accurately reflects the service I personally performed and the decisions made by , Corey Easton.
[2017-01-01 06:47] VITALS: BP 163/88
--- NOTE | 2017-01-01 08:14 | RAD ---
Indication: Right foot pain and injury. 3 views of the right foot demonstrates no definite fracture. Inferior and posterior calcaneal spur is noted. Degenerative changes of the cuboid metatarsal joint is noted. No fracture is identified. IMPRESSION: No fracture of the right foot is noted.
== END 2017-01-01 06:45 | disposition home or self-care (01) ==
LOC: ED 22:04
DX: E11.65 Type 2 diabetes mellitus with hyperglycemia (principal); Z87.891 Personal history of nicotine dependence
CPT/HCPCS: 36415; 80053; 81003; 81015; 83605; 84484; 85025; 86140; 87086; 93005; 99284

== ENCOUNTER → 2017-02-15 12:04 | Emergency (ER) | payer MEDICARE, MEDICAID ==
[~2017-02-15 12:04] MED LIST: NS 0.9% 1000 ML* 1,000 ML IV ONE
[2017-02-15 13:11] LABS: Hematocrit 37 % (35-47); Hemoglobin 11.7 g/dl (12.0-16.0); Mean Corpuscular HGB Conc 32 g/dl (31-36); Mean Corpuscular Hemoglobin 27 pg (27-31); Mean Corpuscular Volume 83 fL (80-97); Mean Platelet Volume 9 um3 (7.4-10.4); Red Blood Count 4.42 10^6/ul (4.0-5.4); Red Cell Distribution Width 16 % (10.5-15); White Blood Count 11.9 10^3/ul (3.5-10.8)
[2017-02-15 13:15] LABS: Add Diff/Slide Review? Slide Review Added; Comments Flag Yes
[2017-02-15 13:28] LABS: ALT 25 U/L (7-52); AST 27 U/L (13-39); Albumin 3.5 g/dL (3.2-5.2); Alkaline Phosphatase 149 U/L (34-104); Anion Gap 7 mmol/L (2-11); BUN/Creatinine Ratio 32.4 (8-20); Benzodiazepine Urine Screen None Detected (None Detect); Blood Urea Nitrogen 23 mg/dL (6-24); CO2 Carbon Dioxide 25 mmol/L (22-32); Calcium 9.3 mg/dL (8.6-10.3); Chloride 102 mmol/L (101-111); Creatine Kinase 95 U/L (10-223); EGFR African American 112.1 (>60); EGFR Non-African American 87.1 (>60); Globulin 3.5 g/dL (2-4); Glucose 273 mg/dL (70-100); Potassium 4.3 mmol/L (3.5-5.0); Sodium 134 mmol/L (133-145)
--- NOTE | 2017-02-15 13:28 | RAD ---
INDICATION: Overdose. COMPARISON: Comparison is made with a prior study from July 21, 2016. TECHNIQUE: A portable view of the chest was obtained. FINDINGS: Cardiac and mediastinal contours appear to be within normal limits. The lungs are underinflated and clear. No pleural effusion is seen. IMPRESSION: NO EVIDENCE FOR ACUTE DISEASE.
[2017-02-15 13:35] LABS: Urine Bacteria Absent (Absent); Urine Bilirubin Negative (Negative); Urine Glucose 1+(50 mg/dL) (Negative); Urine Nitrite Negative (Negative)
[2017-02-15 13:45] LABS: Alcohol < 10 mg/dL (<10); Salicylate < 2.50 mg/dL (<30)
[2017-02-15 13:50] LABS: Acetaminophen 60 mcg/mL
[2017-02-15 13:55] LABS: TSH (Thyroid Stimulating Horm) 0.64 mcIU/mL (0.34-5.60)
[2017-02-15 15:38] VITALS: BP 101/40
--- NOTE | 2017-02-16 16:05 | ED ---
Sherine Rosales Auryana, scribed for Maycol Al MD on 02/15/17 at 1258 . Substance Abuse/Use - HPI Summary HPI Summary: 51 year old female presents to the ED s/p intentional overdose at 09:30 this morning. Per report patient took 28 tablets of Tylenol this morning. Patient reports a lot of recent financial stressors- reports that she is frustrated. She also has SI. PMHx is significant for extensive mental health history. - History Of Current Complaint Chief Complaint: EDOverdose Stated Complaint: OVERDOSE Time Seen by Provider: 02/15/17 12:48 Hx Obtained From: Patient Hx Last Menstrual Period: 09/29/16 ?: No Onset/Duration of Drug/ETOH Abuse: Hours Ingestion History: Type/Name Of Drug - tylenol, Amount Ingested - 28 tablets Overdose Characteristics: Oral Timing Of Abuse: Binge Use - Allergies/Home Medications Allergies/Adverse Reactions: Allergies Allergy/AdvReac Type Severity Reaction Status Date / Time Ibuprofen Allergy Severe Hives Verified 02/15/17 12:38 Latex Allergy Severe Rash Verified 02/15/17 12:38 Sulfa Antibiotics Allergy Severe Hives Verified 02/15/17 12:38 Penicillins Allergy Intermediate Rash Verified 02/15/17 12:38 Nalbuphine Allergy Unknown Unknown Verified 02/15/17 12:38 Reaction Details Perphenazine Allergy Unknown Unknown Verified 02/15/17 12:38 Reaction Details Ciprofloxacin [From Cipro] AdvReac Severe Dizziness Verified 02/15/17 12:38 Tramadol AdvReac Severe Altered Verified 02/15/17 12:38 Mental Status [place] AdvReac Mild See Comment Verified 02/15/17 12:38 ENVIRONMENTAL Allergy Mild SINUS Uncoded 11/11/16 18:04 Home Medications: Home Medications ARIPiprazole TAB* [Abilify TAB*] 40 mg PO BEDTIME 02/15/17 [History Confirmed 02/15/17] Atorvastatin* [Lipitor*] 40 mg PO DAILY 02/15/17 [History Confirmed 02/15/17] Cyclobenzaprine TAB* [Flexeril 10 MG TAB*] 10 mg PO BID PRN 02/15/17 [History Confirmed 02/15/17] Esomeprazole(NF) [NexIUM(NF)] 40 mg PO DAILY 02/15/17 [History Confirmed ] Gabapentin CAP(*) [Neurontin 300 CAP(*)] 600 mg PO QID 02/15/17 [History Confirmed 02/15/17] Levothyroxine TAB* [Synthroid TAB*] 50 mcg PO QAM 02/15/17 [History Confirmed ] Levothyroxine TAB* [Synthroid TAB*] 200 mcg PO QAM 02/15/17 [History Confirmed 02/15/17] Lurasidone (NF) [Latuda (NF)] 60 mg PO DAILY 02/15/17 [History Confirmed ] Melatonin (NF) [Meladox] 6 mg PO BEDTIME 02/15/17 [History Confirmed 02/15/17] Mirtazapine TAB* [Remeron TAB*] 7.5 mg PO BEDTIME 02/15/17 [History Confirmed ] Ziprasidone CAP* [Geodon CAP*] 80 mg PO BID 02/15/17 [History Confirmed 02/15/17 ] traZODone TAB* [Desyrel TAB*] 250 mg PO BEDTIME 02/15/17 [History Confirmed ] PMH/Surg Hx/FS Hx/Imm Hx Endocrine/Hematology History: Reports: Hx Diabetes, Hx Thyroid Disease, Other Endocrine/Hematological Disorders - Chronic pancreatitis Denies: Hx Anticoagulant Therapy Cardiovascular History: Reports: Hx Hypertension, Other Cardiovascular Problems/ Disorders - PER H&P- HX OF PSVT 04/2008 Denies: Hx Pacemaker/ICD Respiratory History: Reports: Hx Asthma, Hx Seasonal Allergies, Hx Sleep Apnea - uses c-pap but hasn't used it for 5 mos due to being broken Denies: Hx Chronic Bronchitis, Hx Chronic Obstructive Pulmonary Disease (COPD ), Hx Cystic Fibrosis, Hx Lung Cancer, Hx Pleural Effusion, Hx Pneumonia, Hx Pulmonary Edema, Hx Pulmonary Embolism, Other Respiratory Problems/Disorders GI History: Reports: Hx Gall Bladder Disease, Hx Gastroesophageal Reflux Disease , Hx Gastrointestinal Bleed, Hx Irritable Bowel, Other GI Disorders - pancreatitis/gastroenteritis Denies: Hx Ulcer History: Denies: Hx Renal Disease Musculoskeletal History: Reports: Hx Arthritis, Hx Back Problems, Other Musculoskeletal History - GEN MUSCULOSKELETAL PAIN Denies: Hx Rheumatoid Arthritis, Hx Bursitis, Hx Congenital Bone Abnormalities, Hx Fibromyalgia, Hx Gout, Hx Orthopedic Injury, Hx Osteoporosis, Hx Scoliosis, Hx Tendonitis Sensory History: Reports: Hx Cataracts, Hx Contacts or Glasses, Hx Vision Problem Denies: Hx Eye Injury, Hx Eye Prosthesis, Hx Glaucoma, Hx Macular Degeneration, Hx Deafness, Hx Hearing Aid, Hx Hearing Problem, Other Sensory Impairments Opthamlomology History: Reports: Hx Cataracts, Hx Contacts or Glasses, Hx Vision Problem Denies: Hx Eye Injury, Hx Eye Prosthesis, Hx Glaucoma, Hx Macular Degeneration, Other Sensory Impairments Neurological History: Reports: Hx Developmental Delay - intellectual disability Denies: Hx Dementia, Hx Seizures, Other Neuro Impairments/Disorders Psychiatric History: Reports: Hx Anxiety, Hx Depression, Hx Post Traumatic Stress Disorder, Hx Inpatient Treatment, Hx Community Mental Health Tx, Hx Bipolar Disorder - pt manic, Hx Suicide Attempt - past med overdoses, Hx of Violent Episodes Against Others, Other Psychiatric Issues/Disorders - PSYCHOSIS NOS, HX OF PTSD, SCHIZOAFFECTIVE DISORDER, BORDERLINE PERSONALITY Denies: Hx Attention Deficit Hyperactivity Disorder, Hx Eating Disorder, Hx Panic Disorder, Hx Schizophrenia, Hx Substance Abuse - Surgical History Surgery Procedure, Year, and Place: 2011-CATARACT EXTRACTION. GALLBLADDER REMOVED . HIP SURGERY ACHILD Hx Anesthesia Reactions: No - Immunization History Date of Tetanus Vaccine: Unknown Date of Influenza Vaccine: May 2012 Infectious Disease History: No Infectious Disease History: Denies: Hx Clostridium Difficile, Hx Hepatitis, Hx Human Immunodeficiency Virus (HIV), Hx of Known/Suspected MRSA, Hx Shingles, Hx Tuberculosis, Hx Known/ Suspected VRE, Hx Known/Suspected VRSA, History Other Infectious Disease, Traveled Outside the [place] in Last 30 Days - Family History Known Family History: Positive: None - reviewed & noncontributory, Other - Anxiety and depression, [place] - father Negative: Cardiac Disease, Hypertension, Diabetes Family History: Depression and anxiety - Social History Alcohol Use: None Hx Substance Use: Yes Substance Use Type: Reports: Prescribed Hx Tobacco Use: Yes Smoking Status (MU): Former Smoker Type: Cigarettes Length of Time of Smoking/Using Tobacco: 2 year ago Have You Smoked in the Last Year: No Review of Systems Constitutional: Negative Negative: Fever Eyes: Negative ENT: Negative Cardiovascular: Negative Respiratory: Negative Gastrointestinal: Negative Genitourinary: Negative Musculoskeletal: Negative Skin: Negative Neurological: Negative Positive: Other - SI All Other Systems Reviewed And Are Negative: Yes Physical Exam - Summary Physical Exam Summary: VITAL SIGNS: Reviewed. GENERAL: Patient is a well-developed and nourished female who is lying comfortable in the stretcher. Patient is not in any acute distress. Patient is not in any acute respiratory distress. HEAD AND FACE: No signs of trauma. No ecchymosis, hematomas or skull depressions. No sinus tenderness. EYES: PERRLA, EOMI x 2, No injected conjunctiva, no nystagmus. EARS: Hearing grossly intact. Ear canals and tympanic membranes are within normal limits. MOUTH: Oropharynx within normal limits. NECK: Supple, trachea is midline, no adenopathy, no JVD, no carotid bruit, no c- spine tenderness, neck with full ROM. CHEST: Symmetric, no tenderness at palpation LUNGS: Clear to auscultation bilaterally. No wheezing or crackles. CVS: Regular rate and rhythm, S1 and S2 present, no murmurs or gallops appreciated. ABDOMEN: Soft, non-tender. No signs of distention. No rebound no guarding, and no masses palpated. Bowel sounds are normal. EXTREMITIES: FROM in all major joints, no edema, no cyanosis or clubbing. NEURO: Alert and oriented x 3. No acute neurological deficits. Speech is normal and follows commands. SKIN: Dry and warm. Triage Information Reviewed: Yes Vital Signs On Initial Exam: Initial Vitals Temp Pulse Resp BP Pulse Ox 98.6 F 84 16 150/74 98 02/15/17 12:31 02/15/17 12:31 02/15/17 12:31 02/15/17 12:31 02/15/17 12:31 Vital Signs Reviewed: Yes Diagnostics - Vital Signs Vital Signs Temp Pulse Resp BP Pulse Ox 02/15/17 12:34 98.6 F 84 12 150/74 97 02/15/17 12:31 98.6 F 84 16 150/74 98 - Laboratory Lab Results: Lab Results 02/15/17 02/15/17 02/15/17 Range/Units 12:55 12:55 12:55 WBC 11.9 H (3.5-10.8) 10^3/ul RBC 4.42 (4.0-5.4) 10^6/ul Hgb 11.7 L (12.0-16.0) g/dl Hct 37 (35-47) % MCV 83 (80-97) fL MCH 27 (27-31) pg MCHC 32 (31-36) g/dl RDW 16 H (10.5-15) % Plt Count 212 (150-450) 10^3/ul MPV 9 (7.4-10.4) um3 Neut % (Auto) 68.8 (38-83) % Lymph % (Auto) 24.6 L (25-47) % [place] % (Auto) 3.7 (1-9) % Eos % (Auto) 2.1 (0-6) % Baso % (Auto) 0.8 (0-2) % Absolute Neuts (auto) 8.2 H (1.5-7.7) 10^3/ul Absolute Lymphs (auto) 2.9 (1.0-4.8) 10^3/ul Absolute Monos (auto) 0.4 (0-0.8) 10^3/ul Absolute Eos (auto) 0.3 (0-0.6) 10^3/ul Absolute Basos (auto) 0.1 (0-0.2) 10^3/ul Absolute Nucleated RBC 0 10^3/ul Nucleated RBC % 0 Sodium 134 (133-145) mmol/L Potassium 4.3 (3.5-5.0) mmol/L Chloride 102 (101-111) mmol/L Carbon Dioxide 25 (22-32) mmol/L Anion Gap 7 (2-11) mmol/L BUN 23 (6-24) mg/dL Creatinine 0.71 (0.51-0.95) mg/dL Est GFR ( Amer) 112.1 (>60) Est GFR (Non-Af Amer) 87.1 (>60) BUN/Creatinine Ratio 32.4 H (8-20) Glucose 273 H (70-100) mg/dL Lactic Acid (0.5-2.0) mmol/L Calcium 9.3 (8.6-10.3) mg/dL Total Bilirubin 0.30 (0.2-1.0) mg/dL AST 27 (13-39) U/L ALT 25 (7-52) U/L Alkaline Phosphatase 149 H (34-104) U/L Total Creatine Kinase 95 (10-223) U/L Total Protein 7.0 (6.4-8.9) g/dL Albumin 3.5 (3.2-5.2) g/dL Globulin 3.5 (2-4) g/dL Albumin/Globulin Ratio 1.0 (1-3) TSH 0.64 (0.34-5.60) mcIU/mL Urine Color Yellow Urine Appearance Cloudy Urine pH 5.0 (5-9) Ur Specific [place] 1.012 (1.010-1.030) Urine Protein Negative (Negative) Urine Ketones Negative (Negative) Urine Blood Negative (Negative) Urine Nitrate Negative (Negative) Urine Bilirubin Negative (Negative) Urine Urobilinogen Negative (Negative) Ur Leukocyte Esterase 1+ H (Negative) Urine WBC (Auto) Trace(0-5/hpf) (Absent) Urine RBC (Auto) Trace(0-2/hpf) (Absent) Ur Squamous Epith Cells Present H (Absent) Urine Bacteria Absent (Absent) Urine Glucose 1+(50 mg/dl) H (Negative) Salicylates < 2.50 (<30) mg/dL Urine Opiates Screen (None Detect) Acetaminophen 60 H* mcg/mL Ur Barbiturates Screen (None Detect) Ur Phencyclidine Scrn (None Detect) Ur Amphetamines Screen (None Detect) U Benzodiazepines Scrn (None Detect) Urine Cocaine Screen (None Detect) U Cannabinoids Screen (None Detect) Serum Alcohol < 10 (<10) mg/dL 02/15/17 02/15/17 02/15/17 Range/Units 12:55 12:55 14:14 WBC (3.5-10.8) 10^3/ul RBC (4.0-5.4) 10^6/ul Hgb (12.0-16.0) g/dl Hct (35-47) % MCV (80-97) fL MCH (27-31) pg MCHC (31-36) g/dl RDW (10.5-15) % Plt Count (150-450) 10^3/ul MPV (7.4-10.4) um3 Neut % (Auto) (38-83) % Lymph % (Auto) (25-47) % [place] % (Auto) (1-9) % Eos % (Auto) (0-6) % Baso % (Auto) (0-2) % Absolute Neuts (auto) (1.5-7.7) 10^3/ul Absolute Lymphs (auto) (1.0-4.8) 10^3/ul Absolute Monos (auto) (0-0.8) 10^3/ul Absolute Eos (auto) (0-0.6) 10^3/ul Absolute Basos (auto) (0-0.2) 10^3/ul Absolute Nucleated RBC 10^3/ul Nucleated RBC % Sodium (133-145) mmol/L Potassium (3.5-5.0) mmol/L Chloride (101-111) mmol/L Carbon Dioxide (22-32) mmol/L Anion Gap (2-11) mmol/L BUN (6-24) mg/dL Creatinine (0.51-0.95) mg/dL Est GFR ( Amer) (>60) Est GFR (Non-Af Amer) (>60) BUN/Creatinine Ratio (8-20) Glucose (70-100) mg/dL Lactic Acid 2.0 (0.5-2.0) mmol/L Calcium (8.6-10.3) mg/dL Total Bilirubin (0.2-1.0) mg/dL AST (13-39) U/L ALT (7-52) U/L Alkaline Phosphatase (34-104) U/L Total Creatine Kinase (10-223) U/L Total Protein (6.4-8.9) g/dL Albumin (3.2-5.2) g/dL Globulin (2-4) g/dL Albumin/Globulin Ratio (1-3) TSH (0.34-5.60) mcIU/mL Urine Color Urine Appearance Urine pH (5-9) Ur Specific [place] (1.010-1.030) Urine Protein (Negative) Urine Ketones (Negative) Urine Blood (Negative) Urine Nitrate (Negative) Urine Bilirubin (Negative) Urine Urobilinogen (Negative) Ur Leukocyte Esterase (Negative) Urine WBC (Auto) (Absent) Urine RBC (Auto) (Absent) Ur Squamous Epith Cells (Absent) Urine Bacteria (Absent) Urine Glucose (Negative) Salicylates (<30) mg/dL Urine Opiates Screen None detected (None Detect) Acetaminophen 48 mcg/mL Ur Barbiturates Screen None detected (None Detect) Ur Phencyclidine Scrn None detected (None Detect) Ur Amphetamines Screen None detected (None Detect) U Benzodiazepines Scrn None detected (None Detect) Urine Cocaine Screen None detected (None Detect) U Cannabinoids Screen None detected (None Detect) Serum Alcohol (<10) mg/dL Result Diagrams: 02/15/17 12:55 02/15/17 12:55 Lab Statement: Any lab studies that have been ordered have been reviewed, and results considered in the medical decision making process. - Radiology CXR Xray Interpretation: No Acute Changes Radiology Interpretation Completed By: Radiologist - EKG 12:52 EKG Interpretation: sinus rhythm @ 86 BPM, no ST elevations Course/Dx - Course Course Of Treatment: Patient is medically clear at 12:48 Assessment/Plan: 51 year old female presents to the ED s/p intentional overdose at 09:30 this morning. Per report patient took 28 tablets of Tylenol this morning. Patient reports a lot of recent financial stressors- reports that she is frustrated. She also has SI. PMHx is significant for extensive mental health history. Test results without significant abnormalities except WBC 11.9 glucose 273, and acetaminophen level of 60 after 2 hours, and after 4 hours it is 48. The patient was medically clear and awaiting MHE. Dr. Burger did the MHE and he recommends for the patient to be discharged with f/u to PCP with diagnosis of depressive d/o. The patient is hemodynamically stable and A&Ox3. - Diagnoses Provider Diagnoses: Depressive disorder Discharge - Discharge Plan Condition: Stable Disposition: HOME Patient Education Materials: Acetaminophen Overdose (ED) Referrals: Gabo Sullivan MD [Primary Care Provider] - 2 Days The documentation as recorded by the Sherine roth Auryana accurately reflects the service I personally performed and the decisions made by , Maycol Al MD.
== END | disposition home or self-care (01) ==
LOC: ED 12:04
DX: F32.9 Major depressive disorder, single episode, unspecified (principal); Z87.891 Personal history of nicotine dependence
CPT/HCPCS: 36415; 71010; 80053; 80307; 80320; 80329; 81003; 81015; 82550; 83605; 84443; 85025; 87086; 93005; 99284; G0480

== ENCOUNTER 2017-03-07 00:20 | Emergency (ER) | payer MEDICARE, MEDICAID ==
[2017-03-07] MEDS ORDERED: NS 0.9% 1000 ML* 2,000 ML IV ONE (00:50)
[2017-03-07 01:14] LABS: Hematocrit 36 % (35-47); Hemoglobin 11.6 g/dl (12.0-16.0); Mean Corpuscular HGB Conc 32 g/dl (31-36); Mean Corpuscular Hemoglobin 27 pg (27-31); Mean Corpuscular Volume 84 fL (80-97); Mean Platelet Volume 9 um3 (7.4-10.4); Red Blood Count 4.32 10^6/ul (4.0-5.4); Red Cell Distribution Width 16 % (10.5-15); White Blood Count 8.7 10^3/ul (3.5-10.8)
[2017-03-07 01:21] LABS: Albumin 3.5 g/dL (3.2-5.2); BUN/Creatinine Ratio 19.8 (8-20); C Reactive Protein 7.35 mg/L (< 5.00); Calcium 8.8 mg/dL (8.6-10.3); EGFR African American 74.6 (>60); Globulin 3.5 g/dL (2-4); Potassium 4.4 mmol/L (3.5-5.0); Total Bilirubin 0.2 mg/dL (0.2-1.0)
[2017-03-07] MEDS ORDERED: Insulin REGULAR(*) 1 UNITS UNIT SUBCUT ONE (01:27)
[2017-03-07 01:33] LABS: Urine Bacteria 2+ (Absent); Urine Bilirubin Negative (Negative); Urine Glucose 3+(>=500 mg/dL) (Negative); Urine Nitrite Negative (Negative)
[2017-03-07] MEDS ORDERED: Nitrofurantoin Macrocrystals* 100 MG CAP PO ONE (01:42)
--- NOTE | 2017-03-07 01:47 | ED ---
HPI Diabetic - HPI Summary HPI Summary: 51F presents with hyperglycemia. She states she felt off today and felt dizzy. She is currently being treated with zpack for sinus infection for past week. She states this is slowly getting better. She states her glucometer was reading high today but she proceeded to eat a bunch of food including a BLT. She states she only taken 10 units before meals and never uses a sliding scale. She then called ems as she was feeling off and they checked her sugar and it was over 500. She was given fluid in route. she states she can not get good food because limited amount of money for food stamps. She denies any chest pain , SOB, headache, sore throat, abdominal pain, n/v/d/c, flank pain, dysuria, frequency or urgency. She denies any fever. She admits to sinus congestions. She later states she took her medication that she takes at night for yesterday and today which is her psych medication. - History Of Current Complaint Chief Complaint: EDDiabeticProb Time Seen by Provider: 03/07/17 00:40 Hx Last Menstrual Period: 09/29/16 - Allergies/Home Medications Allergies/Adverse Reactions: Allergies Allergy/AdvReac Type Severity Reaction Status Date / Time Ibuprofen Allergy Severe Hives Verified 02/15/17 12:38 Latex Allergy Severe Rash Verified 02/15/17 12:38 Sulfa Antibiotics Allergy Severe Hives Verified 02/15/17 12:38 Penicillins Allergy Intermediate Rash Verified 02/15/17 12:38 Nalbuphine Allergy Unknown Unknown Verified 02/15/17 12:38 Reaction Details Perphenazine Allergy Unknown Unknown Verified 02/15/17 12:38 Reaction Details Ciprofloxacin [From Cipro] AdvReac Severe Dizziness Verified 02/15/17 12:38 Tramadol AdvReac Severe Altered Verified 02/15/17 12:38 Mental Status [place] AdvReac Mild See Comment Verified 02/15/17 12:38 ENVIRONMENTAL Allergy Mild SINUS Uncoded 11/11/16 18:04 Home Medications: Home Medications Azithromycin TAB* [Zithromax TAB (Z-YANET) 250 mg #6 tabs] 250 mg PO DAILY [History Confirmed 03/07/17] PMH/Surg Hx/FS Hx/Imm Hx Endocrine/Hematology History: Reports: Hx Diabetes, Hx Thyroid Disease, Other Endocrine/Hematological Disorders - Chronic pancreatitis Denies: Hx Anticoagulant Therapy Cardiovascular History: Reports: Hx Hypertension, Other Cardiovascular Problems/ Disorders - PER H&P- HX OF PSVT 04/2008 Denies: Hx Pacemaker/ICD Respiratory History: Reports: Hx Asthma, Hx Seasonal Allergies, Hx Sleep Apnea - uses c-pap but hasn't used it for 5 mos due to being broken Denies: Hx Chronic Bronchitis, Hx Chronic Obstructive Pulmonary Disease (COPD ), Hx Cystic Fibrosis, Hx Lung Cancer, Hx Pleural Effusion, Hx Pneumonia, Hx Pulmonary Edema, Hx Pulmonary Embolism, Other Respiratory Problems/Disorders GI History: Reports: Hx Gall Bladder Disease, Hx Gastroesophageal Reflux Disease , Hx Gastrointestinal Bleed, Hx Irritable Bowel, Other GI Disorders - pancreatitis/gastroenteritis Denies: Hx Ulcer History: Denies: Hx Renal Disease Musculoskeletal History: Reports: Hx Arthritis, Hx Back Problems, Other Musculoskeletal History - GEN MUSCULOSKELETAL PAIN Denies: Hx Rheumatoid Arthritis, Hx Bursitis, Hx Congenital Bone Abnormalities, Hx Fibromyalgia, Hx Gout, Hx Orthopedic Injury, Hx Osteoporosis, Hx Scoliosis, Hx Tendonitis Sensory History: Reports: Hx Cataracts, Hx Contacts or Glasses, Hx Vision Problem Denies: Hx Eye Injury, Hx Eye Prosthesis, Hx Glaucoma, Hx Macular Degeneration, Hx Deafness, Hx Hearing Aid, Hx Hearing Problem, Other Sensory Impairments Opthamlomology History: Reports: Hx Cataracts, Hx Contacts or Glasses, Hx Vision Problem Denies: Hx Eye Injury, Hx Eye Prosthesis, Hx Glaucoma, Hx Macular Degeneration, Other Sensory Impairments Neurological History: Reports: Hx Developmental Delay - intellectual disability Denies: Hx Dementia, Hx Seizures, Other Neuro Impairments/Disorders Psychiatric History: Reports: Hx Anxiety, Hx Depression, Hx Post Traumatic Stress Disorder, Hx Inpatient Treatment, Hx Community Mental Health Tx, Hx Bipolar Disorder - pt manic, Hx Suicide Attempt - past med overdoses, Hx of Violent Episodes Against Others, Other Psychiatric Issues/Disorders - PSYCHOSIS NOS, HX OF PTSD, SCHIZOAFFECTIVE DISORDER, BORDERLINE PERSONALITY Denies: Hx Attention Deficit Hyperactivity Disorder, Hx Eating Disorder, Hx Panic Disorder, Hx Schizophrenia, Hx Substance Abuse - Surgical History Surgery Procedure, Year, and Place: 2011-CATARACT EXTRACTION. GALLBLADDER REMOVED . HIP SURGERY ACHILD Hx Anesthesia Reactions: No - Immunization History Date of Tetanus Vaccine: Unknown Date of Influenza Vaccine: May 2012 Infectious Disease History: Yes Infectious Disease History: Denies: Hx Clostridium Difficile, Hx Hepatitis, Hx Human Immunodeficiency Virus (HIV), Hx of Known/Suspected MRSA, Hx Shingles, Hx Tuberculosis, Hx Known/ Suspected VRE, Hx Known/Suspected VRSA, History Other Infectious Disease, Traveled Outside the [place] in Last 30 Days - Family History Known Family History: Positive: None - reviewed & noncontributory, Other - Anxiety and depression, [place] - father Negative: Cardiac Disease, Hypertension, Diabetes Family History: Depression and anxiety - Social History Alcohol Use: None Hx Substance Use: Yes Substance Use Type: Reports: Prescribed Hx Tobacco Use: Yes Smoking Status (MU): Former Smoker Type: Cigarettes Length of Time of Smoking/Using Tobacco: 2 year ago Have You Smoked in the Last Year: No Review of Systems Positive: Other - high blood sugar. Negative: Fever Negative: Chest Pain Negative: Shortness Of Breath Negative: Abdominal Pain Neurological: Other - feel off All Other Systems Reviewed And Are Negative: Yes Physical Exam Triage Information Reviewed: Yes Vital Signs On Initial Exam: Initial Vitals Temp Pulse Resp BP Pulse Ox 97.7 F 87 18 145/75 97 03/07/17 00:25 03/07/17 00:25 03/07/17 00:25 03/07/17 00:25 03/07/17 00:25 Vital Signs Reviewed: Yes Appearance: Positive: No Pain Distress Skin: Positive: Warm, Dry Head/Face: Positive: Normal Head/Face Inspection Eyes: Positive: Normal, EOMI, JENNIFER, Conjunctiva Clear ENT: Positive: Normal ENT inspection, Pharynx normal, Nasal congestion, TMs normal Neck: Positive: Supple, Nontender, No Lymphadenopathy Respiratory/Lung Sounds: Positive: Clear to Auscultation, Breath Sounds Present Cardiovascular: Positive: Normal, RRR Abdomen Description: Positive: Nontender, Soft Bowel Sounds: Positive: Present - [place] Coma Scale Coma Scale Total: 15 Diagnostics - Vital Signs Vital Signs Temp Pulse Resp BP Pulse Ox 03/07/17 00:25 97.7 F 87 18 145/75 97 - Laboratory Lab Results: Lab Results 03/07/17 03/07/17 03/07/17 Range/Units 00:53 00:53 00:53 WBC 8.7 (3.5-10.8) 10^3/ul RBC 4.32 (4.0-5.4) 10^6/ul Hgb 11.6 L (12.0-16.0) g/dl Hct 36 (35-47) % MCV 84 (80-97) fL MCH 27 (27-31) pg MCHC 32 (31-36) g/dl RDW 16 H (10.5-15) % Plt Count 190 (150-450) 10^3/ul MPV 9 (7.4-10.4) um3 Neut % (Auto) 65.0 (38-83) % Lymph % (Auto) 25.9 (25-47) % [place] % (Auto) 5.7 (1-9) % Eos % (Auto) 2.7 (0-6) % Baso % (Auto) 0.7 (0-2) % Absolute Neuts (auto) 5.6 (1.5-7.7) 10^3/ul Absolute Lymphs (auto) 2.2 (1.0-4.8) 10^3/ul Absolute Monos (auto) 0.5 (0-0.8) 10^3/ul Absolute Eos (auto) 0.2 (0-0.6) 10^3/ul Absolute Basos (auto) 0.1 (0-0.2) 10^3/ul Absolute Nucleated RBC 0 10^3/ul Nucleated RBC % 0 Sodium 132 L (133-145) mmol/L Potassium 4.4 (3.5-5.0) mmol/L Chloride 98 L (101-111) mmol/L Carbon Dioxide 26 (22-32) mmol/L Anion Gap 8 (2-11) mmol/L BUN 20 (6-24) mg/dL Creatinine 1.01 H (0.51-0.95) mg/dL Est GFR ( Amer) 74.6 (>60) Est GFR (Non-Af Amer) 58.0 (>60) BUN/Creatinine Ratio 19.8 (8-20) Glucose 561 H* (70-100) mg/dL POC Glucose (mg/dL) (70-100) mg/dL Lactic Acid 3.0 H* (0.5-2.0) mmol/L Calcium 8.8 (8.6-10.3) mg/dL Total Bilirubin 0.20 (0.2-1.0) mg/dL AST 32 (13-39) U/L ALT 31 (7-52) U/L Alkaline Phosphatase 164 H (34-104) U/L C-Reactive Protein 7.35 H (< 5.00) mg/L Total Protein 7.0 (6.4-8.9) g/dL Albumin 3.5 (3.2-5.2) g/dL Globulin 3.5 (2-4) g/dL Albumin/Globulin Ratio 1.0 (1-3) Urine Color Urine Appearance Urine pH (5-9) Ur Specific [place] (1.010-1.030) Urine Protein (Negative) Urine Ketones (Negative) Urine Blood (Negative) Urine Nitrate (Negative) Urine Bilirubin (Negative) Urine Urobilinogen (Negative) Ur Leukocyte Esterase (Negative) Urine WBC (Auto) (Absent) Urine RBC (Auto) (Absent) Ur Squamous Epith Cells (Absent) Urine Bacteria (Absent) Urine Glucose (Negative) 03/07/17 03/07/17 Range/Units 00:59 01:12 WBC (3.5-10.8) 10^3/ul RBC (4.0-5.4) 10^6/ul Hgb (12.0-16.0) g/dl Hct (35-47) % MCV (80-97) fL MCH (27-31) pg MCHC (31-36) g/dl RDW (10.5-15) % Plt Count (150-450) 10^3/ul MPV (7.4-10.4) um3 Neut % (Auto) (38-83) % Lymph % (Auto) (25-47) % [place] % (Auto) (1-9) % Eos % (Auto) (0-6) % Baso % (Auto) (0-2) % Absolute Neuts (auto) (1.5-7.7) 10^3/ul Absolute Lymphs (auto) (1.0-4.8) 10^3/ul Absolute Monos (auto) (0-0.8) 10^3/ul Absolute Eos (auto) (0-0.6) 10^3/ul Absolute Basos (auto) (0-0.2) 10^3/ul Absolute Nucleated RBC 10^3/ul Nucleated RBC % Sodium (133-145) mmol/L Potassium (3.5-5.0) mmol/L Chloride (101-111) mmol/L Carbon Dioxide (22-32) mmol/L Anion Gap (2-11) mmol/L BUN (6-24) mg/dL Creatinine (0.51-0.95) mg/dL Est GFR ( Amer) (>60) Est GFR (Non-Af Amer) (>60) BUN/Creatinine Ratio (8-20) Glucose (70-100) mg/dL POC Glucose (mg/dL) > 444 H* (70-100) mg/dL Lactic Acid (0.5-2.0) mmol/L Calcium (8.6-10.3) mg/dL Total Bilirubin (0.2-1.0) mg/dL AST (13-39) U/L ALT (7-52) U/L Alkaline Phosphatase (34-104) U/L C-Reactive Protein (< 5.00) mg/L Total Protein (6.4-8.9) g/dL Albumin (3.2-5.2) g/dL Globulin (2-4) g/dL Albumin/Globulin Ratio (1-3) Urine Color Yellow Urine Appearance Cloudy Urine pH 5.0 (5-9) Ur Specific [place] 1.024 (1.010-1.030) Urine Protein Negative (Negative) Urine Ketones Negative (Negative) Urine Blood Negative (Negative) Urine Nitrate Negative (Negative) Urine Bilirubin Negative (Negative) Urine Urobilinogen Negative (Negative) Ur Leukocyte Esterase 2+ H (Negative) Urine WBC (Auto) 3+(>20/hpf) H (Absent) Urine RBC (Auto) 3+(>10/hpf) H (Absent) Ur Squamous Epith Cells Present H (Absent) Urine Bacteria 2+ H (Absent) Urine Glucose 3+(>=500 mg/dl) H (Negative) Result Diagrams: 03/07/17 00:53 03/07/17 00:53 Lab Statement: Any lab studies that have been ordered have been reviewed, and results considered in the medical decision making process. Diabetic Course/Dx - Course Course Of Treatment: 51F presents with hyperglycemia. She states she felt off today and felt dizzy. She is currently being treated with zpack for sinus infection for past week. She states this is slowly getting better. She states her glucometer was reading high today but she proceeded to eat a bunch of food including a BLT. She states she only taken 10 units before meals and never uses a sliding scale. She then called ems as she was feeling off and they checked her sugar and it was over 500. She was given fluid in route. she states she can not get good food because limited amount of money for food stamps. She denies any chest pain, SOB, headache, sore throat, abdominal pain, n/v/d/c, flank pain, dysuria, frequency or urgency. She denies any fever. She admits to sinus congestions. She later states she took her medication that she takes at night for yesterday and today which is her psych medication. PE normal. labs glucose 561, lactic 3, u/a has leuko shanel, bacteria and wbc so will treat for UTI. patient has taken macrobid in past without issue so due to extensive allergies will treat with such. gave fluids and insulin in ED. signed out to dr kaplan pending repeat glucose once fluid is finished. - Diagnoses Differential Dx: Diabetic Ketoacidosis, Hyperglycemia, Hyperosmolar State, Other - uti Provider Diagnoses: Hyperglycemia, UTI (urinary tract infection) Discharge - Discharge Plan Condition: Stable Disposition: OTHER Discharge Disposition Comment: signed out to dr kaplan pending repeat sugar Prescriptions: Nitrofurantoin Monohyd Macro [Macrobid] 100 mg PO BID #13 cap Patient Education Materials: Diabetic Hyperglycemia (ED), Urinary Tract Infection in Women (ED) Referrals: Gabo Sullivan MD [Primary Care Provider] - Additional Instructions: Take Macrobid twice a day for 7 days, first dose given in ED Drink plenty of fluids Follow up with primary in 5 days to discuss insulin dosaging Return to ED if develop fever, flank pain, nausea, or vomiting or any new or worsening symptoms
--- NOTE | 2017-03-07 04:31 | ED ---
Alex Rosales Soohyun, scribed for Violeta Yusuf MD on 03/07/17 at 0358 . Progress - Progress Note Progress Note: This 51 y/o female has been signed out at shift change. Pt had glucose 546 on adm, received 2L IVNS, and 16 units regular insulin. Pt has also taken her Lantus and Novolog insulin today. Repeat Blood glucose is noted with 387. Pt was re-evaluated at 0347 AM, and repeat blood sugar is shared. Pt is alert and has no medical complaints. PMHx is significant for poorly controlled DM type II. She reports pending appointment with her dietitian today. Pt is STRONGLY advised to keep herself well hydrated with non-sugary drinks, adhere to her dietitian, and to stay compliant to her abx treatment to avoid elevation of blood sugar secondary to infection. Pt expresses understanding at this moment. Course/Dx - Course Course Of Treatment: This 51 y/o female has been signed out at shift change. Repeat Blood glucose is noted with 387. Pt was re-evaluated at 0347 AM, and repeat blood sugar is shared. PMHx is significant for poorly controlled DM type II. Pt is STRONGLY advised to keep herself well hydrated with non-sugary drinks , adhere to her dietitian's care, and to stay compliant to her abx treatment to avoid elevation of blood sugar secondary to infection. Pt expresses understanding at this moment. She is stable for discharge. - Diagnoses Provider Diagnoses: Hyperglycemia, UTI (urinary tract infection) The documentation as recorded by the Alex roth Soohyun accurately reflects the service I personally performed and the decisions made by , Violeta Yusuf MD.
[2017-03-07 04:36] VITALS: BP 114/78
== END 2017-03-07 04:34 | disposition home or self-care (01) ==
LOC: ED 00:20
DX: R73.9 Hyperglycemia, unspecified (principal); N39.0 Urinary tract infection, site not specified; R42 Dizziness and giddiness; Z87.891 Personal history of nicotine dependence
CPT/HCPCS: 36415; 80053; 81003; 81015; 83605; 85025; 86140; 87086; 99283; A9270-GY

== ENCOUNTER 2017-03-09 17:46 | Emergency (ER) | payer MEDICARE, MEDICAID ==
[2017-03-09] MEDS ORDERED: NS 0.9% 1000 ML* 1,000 ML IV ONE ×2 (19:15→20:49)
[2017-03-09] MEDS ORDERED: Ondansetron INJ* 2 MG/ML VIAL IV ONE ×2 (19:15→22:12)
[2017-03-09] MEDS ORDERED: Morphine INJ* 4 MG/ML 1 ML SYRINGE IV ONE (19:15)
[2017-03-09 20:01] LABS: Hematocrit 39 % (35-47); Hemoglobin 12.2 g/dl (12.0-16.0); Mean Corpuscular HGB Conc 32 g/dl (31-36); Mean Corpuscular Hemoglobin 26 pg (27-31); Mean Corpuscular Volume 84 fL (80-97); Mean Platelet Volume 9 um3 (7.4-10.4); Red Blood Count 4.63 10^6/ul (4.0-5.4); Red Cell Distribution Width 17 % (10.5-15); White Blood Count 11.4 10^3/ul (3.5-10.8)
[2017-03-09 20:05] LABS: Add Diff/Slide Review? Slide Review Added; Comments Flag Yes
[2017-03-09 20:08] LABS: Urine Bacteria 2+ (Absent); Urine Bilirubin Negative (Negative); Urine Glucose 3+(>=500 mg/dL) (Negative); Urine Nitrite Negative (Negative)
[2017-03-09 20:17] LABS: ALT 50 U/L (7-52); Albumin 3.9 g/dL (3.2-5.2); Alkaline Phosphatase 186 U/L (34-104); BUN/Creatinine Ratio 24.4 (8-20); Blood Urea Nitrogen 20 mg/dL (6-24); C Reactive Protein 9.79 mg/L (< 5.00); CO2 Carbon Dioxide 27 mmol/L (22-32); Calcium 9.5 mg/dL (8.6-10.3); Chloride 95 mmol/L (101-111); EGFR African American 94.9 (>60); EGFR Non-African American 73.8 (>60); Glucose 498 mg/dL (70-100); Sodium 127 mmol/L (133-145); Total Protein 7.9 g/dL (6.4-8.9)
[2017-03-09 20:25] LABS: Anion Gap 5 mmol/L (2-11)
[2017-03-09] MEDS ORDERED: Insulin REGULAR(*) 1 UNITS UNIT SUBCUT ONE (20:49)
[2017-03-09] MEDS ORDERED: DOXYcycline CAP(*) 100 MG PO ONE (20:52)
--- NOTE | 2017-03-09 21:11 | ED ---
Junior Rosales Benjamin, scribed for Priscila Finn MD on 03/09/17 at 1900 . Skin Complaint - HPI Summary HPI Summary: 51yo female c/o abscess on her left lower abdomen. Pt states that she noticed her abscess yesterday for the first time. Pt has recent hx of UTI and has been sick lately, but her abscess only appeared suddenly yesterday. Pt has prior hx of similar abscess. Pts tetanus is UTD according to the pt. - History of Current Complaint Chief Complaint: EDRashSkinAbscess Stated Complaint: ABCESS ON ABD Hx Obtained From: Patient Hx Last Menstrual Period: 09/29/16 Onset/Duration: Started Days Ago - 1 day, Still Present Timing: Constant Onset Severity: Moderate Current Severity: Moderate Pain Intensity: 8 Pain Scale Used: 0-10 Numeric Skin Location: Abdomen - left lower lateral Character: Redness Aggravating Symptom(s): Touch Alleviating Symptom(s): Nothing Associated Signs & Symptoms: Negative - Additional Pertinent History Primary Care Physician: [id number] - Allergy/Home Medications Allergies/Adverse Reactions: Allergies Allergy/AdvReac Type Severity Reaction Status Date / Time Ibuprofen Allergy Severe Hives Verified 02/15/17 12:38 Latex Allergy Severe Rash Verified 02/15/17 12:38 Sulfa Antibiotics Allergy Severe Hives Verified 02/15/17 12:38 Penicillins Allergy Intermediate Rash Verified 02/15/17 12:38 Nalbuphine Allergy Unknown Unknown Verified 02/15/17 12:38 Reaction Details Perphenazine Allergy Unknown Unknown Verified 02/15/17 12:38 Reaction Details Ciprofloxacin [From Cipro] AdvReac Severe Dizziness Verified 02/15/17 12:38 Tramadol AdvReac Severe Altered Verified 02/15/17 12:38 Mental Status [place] AdvReac Mild See Comment Verified 02/15/17 12:38 ENVIRONMENTAL Allergy Mild SINUS Uncoded 11/11/16 18:04 PMH/Surg Hx/FS Hx/Imm Hx Endocrine/Hematology History: Reports: Hx Diabetes, Hx Thyroid Disease, Other Endocrine/Hematological Disorders - Chronic pancreatitis Denies: Hx Anticoagulant Therapy Cardiovascular History: Reports: Hx Hypertension, Other Cardiovascular Problems/ Disorders - PER H&P- HX OF PSVT 04/2008 Denies: Hx Pacemaker/ICD Respiratory History: Reports: Hx Asthma, Hx Seasonal Allergies, Hx Sleep Apnea - uses c-pap but hasn't used it for 5 mos due to being broken Denies: Hx Chronic Bronchitis, Hx Chronic Obstructive Pulmonary Disease (COPD ), Hx Cystic Fibrosis, Hx Lung Cancer, Hx Pleural Effusion, Hx Pneumonia, Hx Pulmonary Edema, Hx Pulmonary Embolism, Other Respiratory Problems/Disorders GI History: Reports: Hx Gall Bladder Disease, Hx Gastroesophageal Reflux Disease , Hx Gastrointestinal Bleed, Hx Irritable Bowel, Other GI Disorders - pancreatitis/gastroenteritis Denies: Hx Ulcer History: Denies: Hx Renal Disease Musculoskeletal History: Reports: Hx Arthritis, Hx Back Problems, Other Musculoskeletal History - GEN MUSCULOSKELETAL PAIN Denies: Hx Rheumatoid Arthritis, Hx Bursitis, Hx Congenital Bone Abnormalities, Hx Fibromyalgia, Hx Gout, Hx Orthopedic Injury, Hx Osteoporosis, Hx Scoliosis, Hx Tendonitis Sensory History: Reports: Hx Cataracts, Hx Contacts or Glasses, Hx Vision Problem Denies: Hx Eye Injury, Hx Eye Prosthesis, Hx Glaucoma, Hx Macular Degeneration, Hx Deafness, Hx Hearing Aid, Hx Hearing Problem, Other Sensory Impairments Opthamlomology History: Reports: Hx Cataracts, Hx Contacts or Glasses, Hx Vision Problem Denies: Hx Eye Injury, Hx Eye Prosthesis, Hx Glaucoma, Hx Macular Degeneration, Other Sensory Impairments Neurological History: Reports: Hx Developmental Delay - intellectual disability Denies: Hx Dementia, Hx Seizures, Other Neuro Impairments/Disorders Psychiatric History: Reports: Hx Anxiety, Hx Depression, Hx Post Traumatic Stress Disorder, Hx Inpatient Treatment, Hx Community Mental Health Tx, Hx Bipolar Disorder - pt manic, Hx Suicide Attempt - past med overdoses, Hx of Violent Episodes Against Others, Other Psychiatric Issues/Disorders - PSYCHOSIS NOS, HX OF PTSD, SCHIZOAFFECTIVE DISORDER, BORDERLINE PERSONALITY Denies: Hx Attention Deficit Hyperactivity Disorder, Hx Eating Disorder, Hx Panic Disorder, Hx Schizophrenia, Hx Substance Abuse - Surgical History Surgery Procedure, Year, and Place: 2011-CATARACT EXTRACTION. GALLBLADDER REMOVED . HIP SURGERY ACHILD Hx Anesthesia Reactions: No - Immunization History Date of Tetanus Vaccine: Unknown Date of Influenza Vaccine: May 2012 Infectious Disease History: Unable to Obtain/Confirm Infectious Disease History: Denies: Hx Clostridium Difficile, Hx Hepatitis, Hx Human Immunodeficiency Virus (HIV), Hx of Known/Suspected MRSA, Hx Shingles, Hx Tuberculosis, Hx Known/ Suspected VRE, Hx Known/Suspected VRSA, History Other Infectious Disease, Traveled Outside the [place] in Last 30 Days - Family History Known Family History: Positive: None - reviewed & noncontributory, Other - Anxiety and depression, [place] - father Negative: Cardiac Disease, Hypertension, Diabetes Family History: Depression and anxiety - Social History Occupation: Disabled Lives: With Family Alcohol Use: None Hx Substance Use: Yes Substance Use Type: Reports: Prescribed Hx Tobacco Use: Yes Smoking Status (MU): Former Smoker Type: Cigarettes Length of Time of Smoking/Using Tobacco: 2 year ago Have You Smoked in the Last Year: No Review of Systems Constitutional: Negative Negative: Fever, Chills Eyes: Negative ENT: Negative Cardiovascular: Negative Negative: Chest Pain Respiratory: Negative Negative: Shortness Of Breath Gastrointestinal: Negative Negative: Abdominal Pain Genitourinary: Negative Musculoskeletal: Negative Positive: Other - Left lower abdomen abscess Neurological: Negative Psychological: Normal All Other Systems Reviewed And Are Negative: Yes Physical Exam Triage Information Reviewed: Yes Vital Signs On Initial Exam: Initial Vitals Temp Pulse Resp BP Pulse Ox 97 F 90 20 146/100 95 03/09/17 17:59 03/09/17 17:59 03/09/17 17:59 03/09/17 17:59 03/09/17 17:59 Vital Signs Reviewed: Yes Appearance: Positive: Well-Appearing, No Pain Distress, Obese Skin: Positive: Warm, Skin Color Reflects Adequate Perfusion, Dry, Other - 5cm circumference area of erythema on left lower lateral abdomen with 2cm induration with minimal fluctuance. Head/Face: Positive: Normal Head/Face Inspection Eyes: Positive: EOMI, JENNIFER ENT: Positive: Normal ENT inspection Neck: Positive: Supple, Nontender Respiratory/Lung Sounds: Positive: Clear to Auscultation, Breath Sounds Present Cardiovascular: Positive: RRR Abdomen Description: Positive: Nontender, Soft Bowel Sounds: Positive: Present Musculoskeletal: Positive: Strength/ROM Intact Neurological: Positive: Sensory/Motor Intact, Alert, Oriented to Person Place, Time, CN Intact II-III Psychiatric: Positive: Affect/Mood Appropriate Procedures - Incision and Drainage Site: left lower lateral abdomen Anesthesia: Lidocaine - with betadine. made 2cm laceration got little pus out, broke up loculations Instrument(s): Scalpel - made 2cm laceration got little pus out, broke up loculations Packing: Drain Diagnostics - Vital Signs Vital Signs Temp Pulse Resp BP Pulse Ox 03/09/17 18:08 97.0 F 90 20 146/100 95 03/09/17 17:59 97 F 90 20 146/100 95 - Laboratory Lab Results: Lab Results 03/09/17 03/09/17 03/09/17 Range/Units 19:40 19:40 19:40 WBC 11.4 H (3.5-10.8) 10^3/ul RBC 4.63 (4.0-5.4) 10^6/ul Hgb 12.2 (12.0-16.0) g/dl Hct 39 (35-47) % MCV 84 (80-97) fL MCH 26 L (27-31) pg MCHC 32 (31-36) g/dl RDW 17 H (10.5-15) % Plt Count 215 (150-450) 10^3/ul MPV 9 (7.4-10.4) um3 Neut % (Auto) 69.4 (38-83) % Lymph % (Auto) 21.5 L (25-47) % [place] % (Auto) 5.5 (1-9) % Eos % (Auto) 2.5 (0-6) % Baso % (Auto) 1.1 (0-2) % Absolute Neuts (auto) 7.9 H (1.5-7.7) 10^3/ul Absolute Lymphs (auto) 2.4 (1.0-4.8) 10^3/ul Absolute Monos (auto) 0.6 (0-0.8) 10^3/ul Absolute Eos (auto) 0.3 (0-0.6) 10^3/ul Absolute Basos (auto) 0.1 (0-0.2) 10^3/ul Absolute Nucleated RBC 0.02 10^3/ul Nucleated RBC % 0.1 Sodium 127 L (133-145) mmol/L Potassium TNP Chloride 95 L (101-111) mmol/L Carbon Dioxide 27 (22-32) mmol/L Anion Gap 5 (2-11) mmol/L BUN 20 (6-24) mg/dL Creatinine 0.82 (0.51-0.95) mg/dL Est GFR ( Amer) 94.9 (>60) Est GFR (Non-Af Amer) 73.8 (>60) BUN/Creatinine Ratio 24.4 H (8-20) Glucose 498 H (70-100) mg/dL Calcium 9.5 (8.6-10.3) mg/dL Total Bilirubin 0.30 (0.2-1.0) mg/dL AST TNP ALT 50 (7-52) U/L Alkaline Phosphatase 186 H (34-104) U/L C-Reactive Protein 9.79 H (< 5.00) mg/L Total Protein 7.9 (6.4-8.9) g/dL Albumin 3.9 (3.2-5.2) g/dL Globulin 4.0 (2-4) g/dL Albumin/Globulin Ratio 1.0 (1-3) Urine Color Yellow Urine Appearance Cloudy Urine pH 6.0 (5-9) Ur Specific [place] 1.014 (1.010-1.030) Urine Protein Negative (Negative) Urine Ketones Negative (Negative) Urine Blood 1+ H (Negative) Urine Nitrate Negative (Negative) Urine Bilirubin Negative (Negative) Urine Urobilinogen Negative (Negative) Ur Leukocyte Esterase Trace H (Negative) Urine WBC (Auto) 1+(6-10/hpf) H (Absent) Urine RBC (Auto) 2+(6-10/hpf) H (Absent) Ur Squamous Epith Cells Present H (Absent) Urine Bacteria 2+ H (Absent) Urine Glucose 3+(>=500 mg/dl) H (Negative) Result Diagrams: 03/09/17 19:40 03/09/17 19:40 Lab Statement: Any lab studies that have been ordered have been reviewed, and results considered in the medical decision making process. Re-Evaluation - Re-Evaluation First Eval Re-Evaluation Time: 19:19 Change: Worse - Pt has recent dx of Sinucitis and UTI and reports feeling nauseous right now. Will order lab work. Course/Dx - Course Course Of Treatment: Reviewed pts medication and allergy lists. 51 yo female with complaint of left lower abd wall abscess that she noted today after it popped. She reports recent treatment for sinusitis one week ago and uti a few days ago (cultures neg). Labs were drawn and her sugar was found to be high which is something she has recently been reporting. She was given 16 units sq insulin and 2 liters of NS and her abscess was I & D'd and she was started on doxy. - Diagnoses Provider Diagnoses: Cellulitis, Abscess, Poorly controlled diabetes mellitus Discharge - Discharge Plan Condition: Stable Disposition: HOME Prescriptions: DOXYcycline CAP(*) [DOXYcycline 100MG CAP(*)] 100 mg PO BID #14 cap HYDROcodone/ACETAMIN 5-325 MG* [[place] 5-325 TAB*] 1 tab PO Q8H PRN #7 tab MDD 3 PRN Reason: Pain Ondansetron ODT TAB* [Zofran 4 MG Odt TAB*] 4 mg PO Q8H PRN #20 tab.odt PRN Reason: Nausea Referrals: Gabo Sullivan MD [Primary Care Provider] - The documentation as recorded by the Junior roth Benjamin accurately reflects the service I personally performed and the decisions made by , Priscila Finn MD.
[2017-03-09] MEDS ORDERED: NS 0.9% 1000 ML* 500 ML IV ONE (22:12)
--- NOTE | 2017-03-10 01:47 | ED ---
I, Naveed Pacheco, scribed for Priscila Finn MD on 03/09/17 at 2327 . Progress - Progress Note Progress Note: After medical decision making, pt swallowed a rechargeable bettery while she was in the ED. Spoke to Dr. Ovalles at 23:25. Pt is still medically cleared for mental health evaluation. - EKG/XRAY/CT XRAY: abdomen Xray Comments: Abdomen XR: battery is visualized. Re-Evaluation - Re-Evaluation First Eval Re-Evaluation Time: 19:19 Change: Worse - Pt has recent dx of Sinucitis and UTI and reports feeling nauseous right now. Will order lab work. Course/Dx - Course Course Of Treatment: Reviewed pts medication and allergy lists. 51 yo female with complaint of left lower abd wall abscess that she noted today after it popped. She reports recent treatment for sinusitis one week ago and uti a few days ago (cultures neg). Labs were drawn and her sugar was found to be high which is something she has recently been reporting. She was given 16 units sq insulin and 2 liters of NS and her abscess was I & D'd and she was started on doxy. Spoke to Dr. Ovalles at 23:25, batteries of this size and shape can be left to pass with followup, pt is medically cleared. 0145 pt has had her mental health evaluation and is currently a hold - Diagnoses Provider Diagnoses: Cellulitis, Abscess, Poorly controlled diabetes mellitus The documentation as recorded by the remigioibJunior iqbal Benjamin accurately reflects the service I personally performed and the decisions made by me, Priscila Finn MD.
--- NOTE | 2017-03-10 07:44 | RAD ---
HISTORY: Foreign body ingestion COMPARISONS: June 21, 2016 VIEWS: Frontal supine and upright views of the abdomen. FINDINGS: BOWEL: There is a nonobstructive bowel gas pattern. There is a large amount of stool within the colon. CALCULI: There are no abnormal calculi. BONES AND SOFT TISSUES: Degenerative changes are noted of the spine. There appears to be bilateral hip dysplasia OTHER FINDINGS: The lung bases are clear. There is no subphrenic gas. There is an approximately 3 cm cylindrical radiopaque foreign body overlying the left upper quadrant, consistent with history of foreign body ingestion, likely in a prepyloric position. IMPRESSION: 1. 3 CM CYLINDRICAL RADIOPAQUE FOREIGN BODY, CONSISTENT WITH THE HISTORY OF FOREIGN BODY INGESTION, LIKELY WITHIN THE STOMACH. 2. NONOBSTRUCTIVE BOWEL GAS PATTERN.
--- NOTE | 2017-03-10 09:37 | PN ---
Progress Note - Progress Note Date of Service: 03/10/17 Note: Patient placed on doxcycline. gram stain show gram positive cocci in clusters will wait for final culture.
[2017-03-10 10:08] VITALS: BP 110/63
--- NOTE | 2017-03-10 16:17 | ED ---
Lucero Rosales Thomas, scribed for Maycol Al MD on 03/10/17 at 1008 . Progress - Progress Note Progress Note: The patient is a sign out from Dr. Gamez pending MHE. The patient was medically cleared by Dr. Gamez. Dr. Duran, psychiatry, performed a MHE and cleared the patient psychiatrically. He recommends that the patient be discharged home with follow up at an outpatient site. The patient is hemodynamically stable and alert and oriented x3. She will be discharged home. - EKG/XRAY/CT XRAY: abdomen Xray Comments: Abdomen XR: battery is visualized. Re-Evaluation - Re-Evaluation First Eval Re-Evaluation Time: 19:19 Change: Worse - Pt has recent dx of Sinucitis and UTI and reports feeling nauseous right now. Will order lab work. Course/Dx - Diagnoses Provider Diagnoses: Depression The documentation as recorded by the Lucero roth Thomas accurately reflects the service I personally performed and the decisions made by , Maycol Al MD.
--- NOTE | 2017-03-12 09:10 | PN ---
Progress Note - Progress Note Date of Service: 03/12/17 Note: Patient final wound culture shows sensitive to doxycycline no further action needed.
== END 2017-03-10 09:55 | disposition home or self-care (01) ==
LOC: ED 17:46
DX: E11.65 Type 2 diabetes mellitus with hyperglycemia (principal); F32.9 Major depressive disorder, single episode, unspecified; L03.90 Cellulitis, unspecified; L02.91 Cutaneous abscess, unspecified
CPT/HCPCS: 36415; 74000; 80053; 81003; 81015; 85025; 86140; 87070; 87077; 87086; 87186; 87205; 87640; 87641; 96374; 96375; 99285; A9270-GY; J2270; J2405

== ENCOUNTER 2017-03-13 21:43 | Emergency (ER) | payer MEDICARE, MEDICAID ==
[2017-03-13] MEDS ORDERED: Insulin REGULAR(*) 1 UNITS UNIT SUBCUT ONE (22:01)
[2017-03-13] MEDS ORDERED: NS 0.9% 1000 ML* 1,000 ML IV ONE (22:01)
[2017-03-13 22:49] LABS: Hematocrit 39 % (35-47); Hemoglobin 12.2 g/dl (12.0-16.0); Mean Corpuscular HGB Conc 32 g/dl (31-36); Mean Corpuscular Hemoglobin 26 pg (27-31); Mean Corpuscular Volume 83 fL (80-97); Mean Platelet Volume 9 um3 (7.4-10.4); Red Blood Count 4.67 10^6/ul (4.0-5.4); Red Cell Distribution Width 16 % (10.5-15); White Blood Count 12.5 10^3/ul (3.5-10.8)
[2017-03-13 22:50] LABS: Add Diff/Slide Review? Slide Review Added; Comments Flag Yes
[2017-03-13 22:57] LABS: Urine Bacteria 1+ (Absent); Urine Bilirubin Negative (Negative); Urine Glucose 3+(>=500 mg/dL) (Negative); Urine Nitrite Negative (Negative)
[2017-03-13 23:02] LABS: Albumin 3.7 g/dL (3.2-5.2); BUN/Creatinine Ratio 23.4 (8-20); Calcium 8.8 mg/dL (8.6-10.3); EGFR African American 81.1 (>60); Globulin 3.9 g/dL (2-4); Magnesium 1.8 mg/dL (1.9-2.7); Total Bilirubin 0.2 mg/dL (0.2-1.0); Total Protein 7.6 g/dL (6.4-8.9)
--- NOTE | 2017-03-14 | ED ---
I, Oh,Kayy, scribed for David Gamez MD on 03/13/17 at 2340 . HPI Diabetic - HPI Summary HPI Summary: This 51 y/o female presents to ED via ambulance after calling EMS with the concern of elevated blood sugar. Blood glucose of 482 at home is reported. Positive dizziness, mild abd pain, and fatigue. PMHx does include DM type with poor diet compliance, pancreatitis, and PTSD. Pt states that she has been complaint with her insulin dose today, but also indicates that she may have not been compliant with her diet, stating that she hasn't "been eating all these days and have been to green party earlier". - History Of Current Complaint Chief Complaint: EDDiabeticProb Time Seen by Provider: 03/13/17 21:58 Hx Obtained From: Patient, EMS, Medical Records Hx Last Menstrual Period: 09/29/16 Onset/Duration: Sudden Onset, Still Present Timing: Constant Severity Initially: Mild Severity Currently: None Character: Alert Aggravating: Non-compliant - possibly diet Alleviating: Nothing Associated Signs & Symptoms: Abdominal Pain - Allergies/Home Medications Allergies/Adverse Reactions: Allergies Allergy/AdvReac Type Severity Reaction Status Date / Time Ibuprofen Allergy Severe Hives Verified 02/15/17 12:38 Latex Allergy Severe Rash Verified 02/15/17 12:38 Sulfa Antibiotics Allergy Severe Hives Verified 02/15/17 12:38 Penicillins Allergy Intermediate Rash Verified 02/15/17 12:38 Nalbuphine Allergy Unknown Unknown Verified 02/15/17 12:38 Reaction Details Perphenazine Allergy Unknown Unknown Verified 02/15/17 12:38 Reaction Details Ciprofloxacin [From Cipro] AdvReac Severe Dizziness Verified 02/15/17 12:38 Tramadol AdvReac Severe Altered Verified 02/15/17 12:38 Mental Status [place] AdvReac Mild See Comment Verified 02/15/17 12:38 ENVIRONMENTAL Allergy Mild SINUS Uncoded 11/11/16 18:04 PMH/Surg Hx/FS Hx/Imm Hx Endocrine/Hematology History: Reports: Hx Diabetes, Hx Thyroid Disease, Other Endocrine/Hematological Disorders - Chronic pancreatitis Denies: Hx Anticoagulant Therapy Cardiovascular History: Reports: Hx Hypertension, Other Cardiovascular Problems/ Disorders - PER H&P- HX OF PSVT 04/2008 Denies: Hx Pacemaker/ICD Respiratory History: Reports: Hx Asthma, Hx Seasonal Allergies, Hx Sleep Apnea - uses c-pap but hasn't used it for 5 mos due to being broken Denies: Hx Chronic Bronchitis, Hx Chronic Obstructive Pulmonary Disease (COPD ), Hx Cystic Fibrosis, Hx Lung Cancer, Hx Pleural Effusion, Hx Pneumonia, Hx Pulmonary Edema, Hx Pulmonary Embolism, Other Respiratory Problems/Disorders GI History: Reports: Hx Gall Bladder Disease, Hx Gastroesophageal Reflux Disease , Hx Gastrointestinal Bleed, Hx Irritable Bowel, Other GI Disorders - pancreatitis/gastroenteritis Denies: Hx Ulcer History: Denies: Hx Renal Disease Musculoskeletal History: Reports: Hx Arthritis, Hx Back Problems, Other Musculoskeletal History - GEN MUSCULOSKELETAL PAIN Denies: Hx Rheumatoid Arthritis, Hx Bursitis, Hx Congenital Bone Abnormalities, Hx Fibromyalgia, Hx Gout, Hx Orthopedic Injury, Hx Osteoporosis, Hx Scoliosis, Hx Tendonitis Sensory History: Reports: Hx Cataracts, Hx Contacts or Glasses, Hx Vision Problem Denies: Hx Eye Injury, Hx Eye Prosthesis, Hx Glaucoma, Hx Macular Degeneration, Hx Deafness, Hx Hearing Aid, Hx Hearing Problem, Other Sensory Impairments Opthamlomology History: Reports: Hx Cataracts, Hx Contacts or Glasses, Hx Vision Problem Denies: Hx Eye Injury, Hx Eye Prosthesis, Hx Glaucoma, Hx Macular Degeneration, Other Sensory Impairments Neurological History: Reports: Hx Developmental Delay - intellectual disability Denies: Hx Dementia, Hx Seizures, Other Neuro Impairments/Disorders Psychiatric History: Reports: Hx Anxiety, Hx Depression, Hx Post Traumatic Stress Disorder, Hx Inpatient Treatment, Hx Community Mental Health Tx, Hx Bipolar Disorder - pt manic, Hx Suicide Attempt - past med overdoses, Hx of Violent Episodes Against Others, Other Psychiatric Issues/Disorders - PSYCHOSIS NOS, HX OF PTSD, SCHIZOAFFECTIVE DISORDER, BORDERLINE PERSONALITY Denies: Hx Attention Deficit Hyperactivity Disorder, Hx Eating Disorder, Hx Panic Disorder, Hx Schizophrenia, Hx Substance Abuse - Surgical History Surgery Procedure, Year, and Place: 2011-CATARACT EXTRACTION. GALLBLADDER REMOVED . HIP SURGERY ACHILD Hx Anesthesia Reactions: No - Immunization History Date of Tetanus Vaccine: Unknown Date of Influenza Vaccine: May 2012 Infectious Disease History: No Infectious Disease History: Denies: Hx Clostridium Difficile, Hx Hepatitis, Hx Human Immunodeficiency Virus (HIV), Hx of Known/Suspected MRSA, Hx Shingles, Hx Tuberculosis, Hx Known/ Suspected VRE, Hx Known/Suspected VRSA, History Other Infectious Disease, Traveled Outside the [place] in Last 30 Days - Family History Known Family History: Positive: Other - Anxiety and depression, [place] - father Negative: Cardiac Disease, Hypertension, Diabetes Family History: Depression and anxiety - Social History Alcohol Use: None Hx Substance Use: Yes Substance Use Type: Reports: Prescribed Hx Tobacco Use: Yes Smoking Status (MU): Former Smoker Type: Cigarettes Length of Time of Smoking/Using Tobacco: 2 year ago Have You Smoked in the Last Year: No Review of Systems Negative: Fever Positive: Other - elevated blood sugar of 482 Positive: Abdominal Pain - mild Neurological: Other - Positive for dizziness All Other Systems Reviewed And Are Negative: Yes Physical Exam Triage Information Reviewed: Yes Vital Signs On Initial Exam: Initial Vitals Pulse Pulse Ox 91 96 03/13/17 22:12 03/13/17 22:12 Vital Signs Reviewed: Yes Appearance: Positive: Well-Appearing, No Pain Distress Skin: Positive: Warm Head/Face: Positive: Normal Head/Face Inspection Eyes: Positive: EOMI ENT: Positive: Hearing grossly normal Neck: Positive: Supple Respiratory/Lung Sounds: Positive: Clear to Auscultation, Breath Sounds Present Cardiovascular: Positive: RRR Abdomen Description: Positive: Nontender, Soft Bowel Sounds: Positive: Present Musculoskeletal: Positive: Strength/ROM Intact Neurological: Positive: Alert, Oriented to Person Place, Time Psychiatric: Positive: Affect/Mood Appropriate - [place] Coma Scale Coma Scale Total: 15 Diagnostics - Vital Signs Vital Signs Temp Pulse Resp BP Pulse Ox 03/13/17 22:52 97.7 F 85 20 156/109 96 03/13/17 22:30 138/97 03/13/17 22:13 89 154/94 96 03/13/17 22:12 91 96 - Laboratory Lab Results: Lab Results 03/13/17 03/13/17 03/13/17 Range/Units 22:36 22:36 22:36 WBC 12.5 H (3.5-10.8) 10^3/ul RBC 4.67 (4.0-5.4) 10^6/ul Hgb 12.2 (12.0-16.0) g/dl Hct 39 (35-47) % MCV 83 (80-97) fL MCH 26 L (27-31) pg MCHC 32 (31-36) g/dl RDW 16 H (10.5-15) % Plt Count 235 (150-450) 10^3/ul MPV 9 (7.4-10.4) um3 Neut % (Auto) 65.9 (38-83) % Lymph % (Auto) 26.2 (25-47) % [place] % (Auto) 4.9 (1-9) % Eos % (Auto) 1.9 (0-6) % Baso % (Auto) 1.1 (0-2) % Absolute Neuts (auto) 8.2 H (1.5-7.7) 10^3/ul Absolute Lymphs (auto) 3.3 (1.0-4.8) 10^3/ul Absolute Monos (auto) 0.6 (0-0.8) 10^3/ul Absolute Eos (auto) 0.2 (0-0.6) 10^3/ul Absolute Basos (auto) 0.1 (0-0.2) 10^3/ul Absolute Nucleated RBC 0.01 10^3/ul Nucleated RBC % 0.1 Sodium 132 L (133-145) mmol/L Potassium 5.0 (3.5-5.0) mmol/L Chloride 100 L (101-111) mmol/L Carbon Dioxide 24 (22-32) mmol/L Anion Gap 8 (2-11) mmol/L BUN 22 (6-24) mg/dL Creatinine 0.94 (0.51-0.95) mg/dL Est GFR ( Amer) 81.1 (>60) Est GFR (Non-Af Amer) 63.0 (>60) BUN/Creatinine Ratio 23.4 H (8-20) Glucose 469 H (70-100) mg/dL Lactic Acid (0.5-2.0) mmol/L Calcium 8.8 (8.6-10.3) mg/dL Magnesium 1.8 L (1.9-2.7) mg/dL Total Bilirubin 0.20 (0.2-1.0) mg/dL AST 33 (13-39) U/L ALT 37 (7-52) U/L Alkaline Phosphatase 188 H (34-104) U/L Total Protein 7.6 (6.4-8.9) g/dL Albumin 3.7 (3.2-5.2) g/dL Globulin 3.9 (2-4) g/dL Albumin/Globulin Ratio 0.9 L (1-3) Urine Color Straw Urine Appearance Clear Urine pH 5.0 (5-9) Ur Specific [place] 1.021 (1.010-1.030) Urine Protein Negative (Negative) Urine Ketones Negative (Negative) Urine Blood 1+ H (Negative) Urine Nitrate Negative (Negative) Urine Bilirubin Negative (Negative) Urine Urobilinogen Negative (Negative) Ur Leukocyte Esterase Negative (Negative) Urine WBC (Auto) Absent (Absent) Urine RBC (Auto) Trace(0-2/hpf) (Absent) Ur Squamous Epith Cells Present H (Absent) Urine Bacteria 1+ H (Absent) Urine Glucose 3+(>=500 mg/dl) H (Negative) 03/13/17 Range/Units 22:36 WBC (3.5-10.8) 10^3/ul RBC (4.0-5.4) 10^6/ul Hgb (12.0-16.0) g/dl Hct (35-47) % MCV (80-97) fL MCH (27-31) pg MCHC (31-36) g/dl RDW (10.5-15) % Plt Count (150-450) 10^3/ul MPV (7.4-10.4) um3 Neut % (Auto) (38-83) % Lymph % (Auto) (25-47) % [place] % (Auto) (1-9) % Eos % (Auto) (0-6) % Baso % (Auto) (0-2) % Absolute Neuts (auto) (1.5-7.7) 10^3/ul Absolute Lymphs (auto) (1.0-4.8) 10^3/ul Absolute Monos (auto) (0-0.8) 10^3/ul Absolute Eos (auto) (0-0.6) 10^3/ul Absolute Basos (auto) (0-0.2) 10^3/ul Absolute Nucleated RBC 10^3/ul Nucleated RBC % Sodium (133-145) mmol/L Potassium (3.5-5.0) mmol/L Chloride (101-111) mmol/L Carbon Dioxide (22-32) mmol/L Anion Gap (2-11) mmol/L BUN (6-24) mg/dL Creatinine (0.51-0.95) mg/dL Est GFR ( Amer) (>60) Est GFR (Non-Af Amer) (>60) BUN/Creatinine Ratio (8-20) Glucose (70-100) mg/dL Lactic Acid 2.6 H* (0.5-2.0) mmol/L Calcium (8.6-10.3) mg/dL Magnesium (1.9-2.7) mg/dL Total Bilirubin (0.2-1.0) mg/dL AST (13-39) U/L ALT (7-52) U/L Alkaline Phosphatase (34-104) U/L Total Protein (6.4-8.9) g/dL Albumin (3.2-5.2) g/dL Globulin (2-4) g/dL Albumin/Globulin Ratio (1-3) Urine Color Urine Appearance Urine pH (5-9) Ur Specific [place] (1.010-1.030) Urine Protein (Negative) Urine Ketones (Negative) Urine Blood (Negative) Urine Nitrate (Negative) Urine Bilirubin (Negative) Urine Urobilinogen (Negative) Ur Leukocyte Esterase (Negative) Urine WBC (Auto) (Absent) Urine RBC (Auto) (Absent) Ur Squamous Epith Cells (Absent) Urine Bacteria (Absent) Urine Glucose (Negative) Result Diagrams: 03/13/17 22:36 03/13/17 22:36 Lab Statement: Any lab studies that have been ordered have been reviewed, and results considered in the medical decision making process. Re-Evaluation - Re-Evaluation First Eval Re-Evaluation Time: 00:02 Comment: POC blood glucose of 425 is noted. made aware. Another 10 u of Insulin ordered. Second Eval Re-Evaluation Time: 01:57 Change: Improved Comment: Blood glucose of 300 noted. made aware. Diabetic Course/Dx - Course Assessment/Plan: THis 51 y/o female presents to ED via ambulance with concern of elevated blood glucose. Pt states that she has been compliant with her insuline today, but provides vague reports on her compliance to diet. Blood glucose of 482 is reported at home. Two dose of insuline 10 units were given in ED, and Pt is noted with blood glucose of 300 at 0157 AM. Pt is discharged. - Diagnoses Provider Diagnoses: Diabetes, Hyperglycemia Discharge - Discharge Plan Condition: Stable Disposition: HOME Patient Education Materials: Diabetic Hyperglycemia (ED) Referrals: Gabo Sullivan MD [Primary Care Provider] - 2 Days The documentation as recorded by the Alex roth Soohyun accurately reflects the service I personally performed and the decisions made by me, David Gamez MD.
[2017-03-14] MEDS ORDERED: Insulin REGULAR(*) 1 UNITS UNIT SUBCUT ONE (00:01)
[2017-03-14 01:57] VITALS: BP 122/75
== END 2017-03-14 01:57 | disposition home or self-care (01) ==
LOC: ED 21:43
DX: E11.65 Type 2 diabetes mellitus with hyperglycemia (principal); R42 Dizziness and giddiness; R53.83 Other fatigue; R10.9 Unspecified abdominal pain; E07.9 Disorder of thyroid, unspecified; I10 Essential (primary) hypertension; J45.909 Unspecified asthma, uncomplicated; K21.9 Gastro-esophageal reflux disease without esophagitis; F41.9 Anxiety disorder, unspecified; F32.9 Major depressive disorder, single episode, unspecified; F43.10 Post-traumatic stress disorder, unspecified; Z90.49 Acquired absence of other specified parts of digestive tract; Z98.49 Cataract extraction status, unspecified eye; Z88.1 Allergy status to other antibiotic agents; Z88.0 Allergy status to penicillin; Z88.2 Allergy status to sulfonamides; Z88.6 Allergy status to analgesic agent; Z91.040 Latex allergy status; Z87.891 Personal history of nicotine dependence
CPT/HCPCS: 36415; 80053; 81003; 81015; 83605; 83735; 85025; 87086; 96360; 96372; 99283

== ENCOUNTER 2017-03-17 17:35 | Emergency (ER) | payer MEDICARE, MEDICAID ==
[2017-03-17 22:21] LABS: Hematocrit 37 % (35-47); Hemoglobin 11.8 g/dl (12.0-16.0); Mean Corpuscular HGB Conc 32 g/dl (31-36); Mean Corpuscular Hemoglobin 26 pg (27-31); Mean Corpuscular Volume 82 fL (80-97); Mean Platelet Volume 9 um3 (7.4-10.4); Red Blood Count 4.49 10^6/ul (4.0-5.4); Red Cell Distribution Width 16 % (10.5-15)
[2017-03-17 22:39] LABS: Albumin 3.8 g/dL (3.2-5.2); BUN/Creatinine Ratio 22.5 (8-20); Calcium 9.6 mg/dL (8.6-10.3); EGFR African American 112.1 (>60); EGFR Non-African American 87.1 (>60); Globulin 3.5 g/dL (2-4); Potassium 4.6 mmol/L (3.5-5.0); Total Bilirubin 0.3 mg/dL (0.2-1.0); Total Protein 7.3 g/dL (6.4-8.9)
[2017-03-17] MEDS ORDERED: DOXYcycline CAP(*) 100 MG PO ONE (22:58)
--- NOTE | 2017-03-17 23:02 | ED ---
Skin Complaint - HPI Summary HPI Summary: 51F presents with abscess on abdomen for a week. She was seen here last week and has her abscess drained she was placed on an antibiotics but is done with it now. She states the area has been spreading and getting worst. She denies any fever. She states her sugars have been getting better. She has been placing warm compresses on the area. She denies any n/v/d/c. - History of Current Complaint Chief Complaint: EDRashSkinAbscess Time Seen by Provider: 03/17/17 21:18 Stated Complaint: ABCESS ON ABD Hx Last Menstrual Period: 09/29/16 Pain Intensity: 6 - Additional Pertinent History Primary Care Physician: [id number] - Allergy/Home Medications Allergies/Adverse Reactions: Allergies Allergy/AdvReac Type Severity Reaction Status Date / Time Ibuprofen Allergy Severe Hives Verified 03/17/17 17:47 Latex Allergy Severe Rash Verified 03/17/17 17:47 Sulfa Antibiotics Allergy Severe Hives Verified 03/17/17 17:47 Penicillins Allergy Intermediate Rash Verified 03/17/17 17:47 Nalbuphine Allergy Unknown Unknown Verified 03/17/17 17:47 Reaction Details Perphenazine Allergy Unknown Unknown Verified 03/17/17 17:47 Reaction Details Ciprofloxacin [From Cipro] AdvReac Severe Dizziness Verified 03/17/17 17:47 Tramadol AdvReac Severe Altered Verified 03/17/17 17:47 Mental Status [place] AdvReac Mild See Comment Verified 03/17/17 17:47 ENVIRONMENTAL Allergy Mild SINUS Uncoded 03/17/17 17:47 PMH/Surg Hx/FS Hx/Imm Hx Endocrine/Hematology History: Reports: Hx Diabetes, Hx Thyroid Disease, Other Endocrine/Hematological Disorders - Chronic pancreatitis Denies: Hx Anticoagulant Therapy Cardiovascular History: Reports: Hx Hypertension, Other Cardiovascular Problems/ Disorders - PER H&P- HX OF PSVT 04/2008 Denies: Hx Pacemaker/ICD Respiratory History: Reports: Hx Asthma, Hx Seasonal Allergies, Hx Sleep Apnea - uses c-pap but hasn't used it for 5 mos due to being broken Denies: Hx Chronic Bronchitis, Hx Chronic Obstructive Pulmonary Disease (COPD ), Hx Cystic Fibrosis, Hx Lung Cancer, Hx Pleural Effusion, Hx Pneumonia, Hx Pulmonary Edema, Hx Pulmonary Embolism, Other Respiratory Problems/Disorders GI History: Reports: Hx Gall Bladder Disease, Hx Gastroesophageal Reflux Disease , Hx Gastrointestinal Bleed, Hx Irritable Bowel, Other GI Disorders - pancreatitis/gastroenteritis Denies: Hx Ulcer History: Denies: Hx Renal Disease Musculoskeletal History: Reports: Hx Arthritis, Hx Back Problems, Other Musculoskeletal History - GEN MUSCULOSKELETAL PAIN Denies: Hx Rheumatoid Arthritis, Hx Bursitis, Hx Congenital Bone Abnormalities, Hx Fibromyalgia, Hx Gout, Hx Orthopedic Injury, Hx Osteoporosis, Hx Scoliosis, Hx Tendonitis Sensory History: Reports: Hx Cataracts, Hx Contacts or Glasses, Hx Vision Problem Denies: Hx Eye Injury, Hx Eye Prosthesis, Hx Glaucoma, Hx Macular Degeneration, Hx Deafness, Hx Hearing Aid, Hx Hearing Problem, Other Sensory Impairments Opthamlomology History: Reports: Hx Cataracts, Hx Contacts or Glasses, Hx Vision Problem Denies: Hx Eye Injury, Hx Eye Prosthesis, Hx Glaucoma, Hx Macular Degeneration, Other Sensory Impairments Neurological History: Reports: Hx Developmental Delay - intellectual disability Denies: Hx Dementia, Hx Seizures, Other Neuro Impairments/Disorders Psychiatric History: Reports: Hx Anxiety, Hx Depression, Hx Post Traumatic Stress Disorder, Hx Inpatient Treatment, Hx Community Mental Health Tx, Hx Bipolar Disorder - pt manic, Hx Suicide Attempt - past med overdoses, Hx of Violent Episodes Against Others, Other Psychiatric Issues/Disorders - PSYCHOSIS NOS, HX OF PTSD, SCHIZOAFFECTIVE DISORDER, BORDERLINE PERSONALITY Denies: Hx Attention Deficit Hyperactivity Disorder, Hx Eating Disorder, Hx Panic Disorder, Hx Schizophrenia, Hx Substance Abuse - Surgical History Surgery Procedure, Year, and Place: 2011-CATARACT EXTRACTION. GALLBLADDER REMOVED . HIP SURGERY ACHILD Hx Anesthesia Reactions: No - Immunization History Date of Tetanus Vaccine: Unknown Date of Influenza Vaccine: May 2012 Infectious Disease History: No Infectious Disease History: Denies: Hx Clostridium Difficile, Hx Hepatitis, Hx Human Immunodeficiency Virus (HIV), Hx of Known/Suspected MRSA, Hx Shingles, Hx Tuberculosis, Hx Known/ Suspected VRE, Hx Known/Suspected VRSA, History Other Infectious Disease, Traveled Outside the [place] in Last 30 Days - Family History Known Family History: Positive: None - reviewed & noncontributory, Other - Anxiety and depression, [place] - father Negative: Cardiac Disease, Hypertension, Diabetes Family History: Depression and anxiety - Social History Alcohol Use: None Hx Substance Use: Yes Substance Use Type: Reports: None, Prescribed Hx Tobacco Use: Yes Smoking Status (MU): Former Smoker Type: Cigarettes Length of Time of Smoking/Using Tobacco: 2 year ago Have You Smoked in the Last Year: No Review of Systems Negative: Fever Negative: Chest Pain Negative: Shortness Of Breath Positive: Other - abdominal abscess All Other Systems Reviewed And Are Negative: Yes Physical Exam Triage Information Reviewed: Yes Vital Signs On Initial Exam: Initial Vitals Temp Pulse Resp BP Pulse Ox 98.2 F 74 16 135/38 98 03/17/17 17:47 03/17/17 17:47 03/17/17 17:47 03/17/17 17:47 03/17/17 17:47 Vital Signs Reviewed: Yes Appearance: Positive: Well-Appearing Skin: Positive: Other - 3cm by 2cm open area with serous fluid that appears to be healing wound, minimial surrounding erythema Head/Face: Positive: Normal Head/Face Inspection Eyes: Positive: Normal, EOMI, JENNIFER, Conjunctiva Clear ENT: Positive: Normal ENT inspection, Pharynx normal, TMs normal Respiratory/Lung Sounds: Positive: Clear to Auscultation, Breath Sounds Present Cardiovascular: Positive: Normal, RRR Abdomen Description: Positive: Nontender, Soft Bowel Sounds: Positive: Present Diagnostics - Vital Signs Vital Signs Temp Pulse Resp BP Pulse Ox 03/17/17 21:30 71 133/76 98 03/17/17 21:00 70 144/72 98 03/17/17 20:49 98 F 83 18 163/93 96 03/17/17 20:47 163/93 03/17/17 17:47 98.2 F 74 16 135/38 98 - Laboratory Lab Results: Lab Results 03/17/17 03/17/17 03/17/17 Range/Units 22:10 22:10 22:10 WBC 11.0 H (3.5-10.8) 10^3/ul RBC 4.49 (4.0-5.4) 10^6/ul Hgb 11.8 L (12.0-16.0) g/dl Hct 37 (35-47) % MCV 82 (80-97) fL MCH 26 L (27-31) pg MCHC 32 (31-36) g/dl RDW 16 H (10.5-15) % Plt Count 220 (150-450) 10^3/ul MPV 9 (7.4-10.4) um3 Neut % (Auto) 66.1 (38-83) % Lymph % (Auto) 27.1 (25-47) % [place] % (Auto) 4.5 (1-9) % Eos % (Auto) 1.7 (0-6) % Baso % (Auto) 0.6 (0-2) % Absolute Neuts (auto) 7.3 (1.5-7.7) 10^3/ul Absolute Lymphs (auto) 3.0 (1.0-4.8) 10^3/ul Absolute Monos (auto) 0.5 (0-0.8) 10^3/ul Absolute Eos (auto) 0.2 (0-0.6) 10^3/ul Absolute Basos (auto) 0.1 (0-0.2) 10^3/ul Absolute Nucleated RBC 0.01 10^3/ul Nucleated RBC % 0.1 Sodium 137 (133-145) mmol/L Potassium 4.6 (3.5-5.0) mmol/L Chloride 105 (101-111) mmol/L Carbon Dioxide 26 (22-32) mmol/L Anion Gap 6 (2-11) mmol/L BUN 16 (6-24) mg/dL Creatinine 0.71 (0.51-0.95) mg/dL Est GFR ( Amer) 112.1 (>60) Est GFR (Non-Af Amer) 87.1 (>60) BUN/Creatinine Ratio 22.5 H (8-20) Glucose 149 H (70-100) mg/dL Lactic Acid 1.3 (0.5-2.0) mmol/L Calcium 9.6 (8.6-10.3) mg/dL Total Bilirubin 0.30 (0.2-1.0) mg/dL AST 470 H (13-39) U/L ALT 344 H (7-52) U/L Alkaline Phosphatase 361 H (34-104) U/L Total Protein 7.3 (6.4-8.9) g/dL Albumin 3.8 (3.2-5.2) g/dL Globulin 3.5 (2-4) g/dL Albumin/Globulin Ratio 1.1 (1-3) Result Diagrams: 03/17/17 22:10 03/17/17 22:10 Lab Statement: Any lab studies that have been ordered have been reviewed, and results considered in the medical decision making process. Course/Dx - Course Course Of Treatment: 51F presents with abscess on abdomen for a week. She was seen here last week and has her abscess drained she was placed on an antibiotics but is done with it now. She states the area has been spreading and getting worst. She denies any fever. She states her sugars have been getting better. She has been placing warm compresses on the area. on exam appears to have healing abscess. serous drainage from abscess. minimial surrounding redness. labs normal lactic. wbc 11. will have patient continue doxycycle. patient understands and agrees with plan. - Differential Diagnoses - Skin Complaint Differential Diagnoses: Abscess, Cellulitis, Other - healing wound - Diagnoses Provider Diagnoses: Abscess of abdominal wall Discharge - Discharge Plan Condition: Good Disposition: HOME Prescriptions: DOXYcycline CAP(*) [DOXYcycline 100MG CAP(*)] 100 mg PO BID #20 cap Patient Education Materials: Abscess (ED) Referrals: Gabo Sullivan MD [Primary Care Provider] - Additional Instructions: Take antibiotic twice a day for 10 days, first dose given in ED Take with food, use sunscreen when go outside Continue warm soaks of area Follow up with primary within 5 days for wound check Return to ED if develop any fever or any new or worsening symptoms
[2017-03-17 23:26] VITALS: BP 143/85
== END 2017-03-17 23:30 | disposition home or self-care (01) ==
LOC: ED 17:35
DX: L02.211 Cutaneous abscess of abdominal wall (principal); Z87.891 Personal history of nicotine dependence
CPT/HCPCS: 36415; 80053; 83605; 85025; 99283; A9270-GY

== ENCOUNTER 2017-03-29 12:35 | Emergency (ER) | payer MEDICARE, MEDICAID ==
[2017-03-29] MEDS ORDERED: LORazepam INJ* 2 MG/ML 1 ML VIAL IV ONE (13:03)
[2017-03-29] MEDS ORDERED: Ondansetron INJ* 2 MG/ML VIAL IV ONE (13:03)
[2017-03-29] MEDS: NS 0.9% 1000 ML* 2,000 ML IV ONE (13:48)
[2017-03-29 13:50] LABS: Hematocrit 34 % (35-47); Hemoglobin 11.2 g/dl (12.0-16.0); Mean Corpuscular HGB Conc 32 g/dl (31-36); Mean Corpuscular Hemoglobin 27 pg (27-31); Mean Corpuscular Volume 83 fL (80-97); Mean Platelet Volume 9 um3 (7.4-10.4); Red Blood Count 4.18 10^6/ul (4.0-5.4); Red Cell Distribution Width 17 % (10.5-15); White Blood Count 9.4 10^3/ul (3.5-10.8)
--- NOTE | 2017-03-29 13:56 | RAD ---
HISTORY: Headache, dizziness COMPARISONS: October 19, 2015 TECHNIQUE: Multiple contiguous axial CT scans were obtained of the head without intravenous contrast. FINDINGS: HEMORRHAGE/INFARCT: There is no hemorrhage or acute infarct. MASSES/SHIFT: There is no mass or shift. EXTRA-AXIAL SPACES: There are no extra-axial fluid collections. SULCI AND VENTRICLES: The sulci and ventricles are normal in size and position for the patient's stated age. CEREBRUM: There are no focal parenchymal abnormalities. BRAINSTEM: There are no focal parenchymal abnormalities. CEREBELLUM: There are no focal parenchymal abnormalities. VESSELS: The vessels are grossly normal. PARANASAL SINUSES: There is an air-fluid level within the right maxillary sinus. ORBITS: The orbits are unremarkable. BONES AND SOFT TISSUE: No bone or soft tissue abnormalities are noted. OTHER: None IMPRESSION: NO ACUTE INTRACRANIAL PATHOLOGY. MODERATE SINUS MUCOSAL INFLAMMATORY DISEASE, WITH AN AIR-FLUID LEVEL IN THE RIGHT MAXILLARY. IN THE CORRECT CLINICAL SETTING, THIS MAY REPRESENT ACUTE SINUSITIS
[2017-03-29 13:57] LABS: Troponin I 0.01 ng/mL (<0.04)
--- NOTE | 2017-03-29 14:04 | RAD ---
CLINICAL HISTORY: Pain, vomiting, small bowel obstruction, colitis, diarrhea COMPARISON: July 24, 2015 TECHNIQUE: Multiple contiguous axial CT scans were obtained of the abdomen and pelvis, without intravenous contrast enhancement. Coronal and sagittal multiplanar reformations are submitted for review. Oral contrast was not administered. FINDINGS: The study is limited by the lack of intravenous contrast. This limits evaluation of the solid organs and vasculature. LUNG BASES: The lung bases are clear. LIVER: The liver is diffusely low in attenuation compared to the spleen. There are no focal hepatic parenchymal masses. The liver measures 21 cm long axis. BILE DUCTS: There is no intrahepatic or extrahepatic biliary dilatation. GALLBLADDER: The gallbladder is not visualized. Surgical clips are noted in the gallbladder fossa. PANCREAS: There is extensive pancreatic calcification. This is similar to the previous examination. SPLEEN: Normal in size and appearance. UPPER GI TRACT: Evaluation of the gastrointestinal tract is limited by incomplete gastric distention. The upper GI tract is unremarkable. SMALL BOWEL AND MESENTERY: The small bowel is normal in contour, course, and caliber. There is no obstruction or dilatation. COLON: The colon is normal in contour, course, caliber. There is no pericolonic inflammatory change. ADRENALS: Normal bilaterally. KIDNEYS: The kidneys are normal in shape, size, contour, and axis. There is no hydronephrosis or nephrolithiasis. BLADDER: The bladder is smooth in contour. PELVIC ORGANS: The uterus and adnexa are grossly normal for technique. AORTA: The aorta is normal. IVC: Unremarkable LYMPH NODES: There is no lymphadenopathy by size criteria. ABDOMINAL WALL: There is a fat-containing umbilical hernia. BONES AND SOFT TISSUES: Mild degenerative changes are noted OTHER: None IMPRESSION: 1. HEPATOMEGALY WITH FATTY INFILTRATION OF LIVER. 2. FINDINGS CONSISTENT WITH CHRONIC PANCREATITIS. 3. FAT-CONTAINING UMBILICAL HERNIA. 4. NO OBSTRUCTION
[2017-03-29 14:19] LABS: ALT 51 U/L (7-52); AST 64 U/L (13-39); Albumin 3.3 g/dL (3.2-5.2); Alkaline Phosphatase 171 U/L (34-104); Amylase 36 U/L (29-103); Anion Gap 7 mmol/L (2-11); Blood Urea Nitrogen 6 mg/dL (6-24); CO2 Carbon Dioxide 26 mmol/L (22-32); Calcium 8.8 mg/dL (8.6-10.3); Chloride 104 mmol/L (101-111); EGFR African American 105.2 (>60); EGFR Non-African American 81.8 (>60); Globulin 3.2 g/dL (2-4); Glucose 281 mg/dL (70-100); Lipase < 10 U/L (11.0-82.0); Magnesium 1.6 mg/dL (1.9-2.7); Potassium 4.9 mmol/L (3.5-5.0); Sodium 137 mmol/L (133-145); Total Protein 6.5 g/dL (6.4-8.9)
[2017-03-29 14:28] LABS: TSH (Thyroid Stimulating Horm) 1.66 mcIU/mL (0.34-5.60)
--- NOTE | 2017-03-29 16:29 | ED ---
Nicky Rosales Alfonso, scribed for Heriberto Way MD on 03/29/17 at 1301 . Dizziness - HPI Summary HPI Summary: This patient is a 51 year old female BIBA to [facility] with a chief complaint of dizziness since 0300 this morning. The CC is described as room spinning. She reports I fell on the toilet I was so dizzy. The patient rates the pain 7/10 in severity. Symptoms aggravated by position change. Symptoms alleviated by nothing. Patient reports abdominal pain, nausea, diarrhea (one week), unsteady gait, weakness, and headache. Patient denies vomiting, and ear ringing. - History Of Current Complaint Chief Complaint: EDDizziness Stated Complaint: DIZZINESS Time Seen by Provider: 03/29/17 12:45 Hx Obtained From: Patient Onset/Duration: Still Present - since this morning Timing: Constant Severity Initially: Moderate Severity Currently: Moderate Character: Room Spinning Aggravating Factor(s): Position Change Alleviating Factor(s): Nothing Associated Signs And Symptoms: Positive: Other: - Patient reports abdominal pain , nausea, diarrhea (one week), unsteady gait, weakness, and headache. Patient denies vomiting, and ear ringing. - Allergies/Home Medications Allergies/Adverse Reactions: Allergies Allergy/AdvReac Type Severity Reaction Status Date / Time Ibuprofen Allergy Severe Hives Verified 03/17/17 17:47 Latex Allergy Severe Rash Verified 03/17/17 17:47 Sulfa Antibiotics Allergy Severe Hives Verified 03/17/17 17:47 Penicillins Allergy Intermediate Rash Verified 03/17/17 17:47 Nalbuphine Allergy Unknown Unknown Verified 03/17/17 17:47 Reaction Details Perphenazine Allergy Unknown Unknown Verified 03/17/17 17:47 Reaction Details Ciprofloxacin [From Cipro] AdvReac Severe Dizziness Verified 03/17/17 17:47 Tramadol AdvReac Severe Altered Verified 03/17/17 17:47 Mental Status [place] AdvReac Mild See Comment Verified 03/17/17 17:47 ENVIRONMENTAL Allergy Mild SINUS Uncoded 03/17/17 17:47 Home Medications: Home Medications Lamotrigine [Lamictal] 300 mg PO DAILY 03/29/17 [History Confirmed 03/29/17] Lurasidone (NF) [Latuda (NF)] 80 mg PO DAILY 03/29/17 [History Confirmed ] OLANzapine TAB* [Zyprexa 5 MG TAB*] 7.5 mg PO BID 03/29/17 [History Confirmed ] PMH/Surg Hx/FS Hx/Imm Hx Endocrine/Hematology History: Reports: Hx Diabetes, Hx Thyroid Disease, Other Endocrine/Hematological Disorders - Chronic pancreatitis Denies: Hx Anticoagulant Therapy Cardiovascular History: Reports: Hx Hypertension, Other Cardiovascular Problems/ Disorders - PER H&P- HX OF PSVT 04/2008 Denies: Hx Pacemaker/ICD Respiratory History: Reports: Hx Asthma, Hx Seasonal Allergies, Hx Sleep Apnea - uses c-pap but hasn't used it for 5 mos due to being broken Denies: Hx Chronic Bronchitis, Hx Chronic Obstructive Pulmonary Disease (COPD ), Hx Cystic Fibrosis, Hx Lung Cancer, Hx Pleural Effusion, Hx Pneumonia, Hx Pulmonary Edema, Hx Pulmonary Embolism, Other Respiratory Problems/Disorders GI History: Reports: Hx Gall Bladder Disease, Hx Gastroesophageal Reflux Disease , Hx Gastrointestinal Bleed, Hx Irritable Bowel, Other GI Disorders - pancreatitis/gastroenteritis Denies: Hx Ulcer History: Denies: Hx Renal Disease Musculoskeletal History: Reports: Hx Arthritis, Hx Back Problems, Other Musculoskeletal History - GEN MUSCULOSKELETAL PAIN Denies: Hx Rheumatoid Arthritis, Hx Bursitis, Hx Congenital Bone Abnormalities, Hx Fibromyalgia, Hx Gout, Hx Orthopedic Injury, Hx Osteoporosis, Hx Scoliosis, Hx Tendonitis Sensory History: Reports: Hx Cataracts, Hx Contacts or Glasses, Hx Vision Problem Denies: Hx Eye Injury, Hx Eye Prosthesis, Hx Glaucoma, Hx Macular Degeneration, Hx Deafness, Hx Hearing Aid, Hx Hearing Problem, Other Sensory Impairments Opthamlomology History: Reports: Hx Cataracts, Hx Contacts or Glasses, Hx Vision Problem Denies: Hx Eye Injury, Hx Eye Prosthesis, Hx Glaucoma, Hx Macular Degeneration, Other Sensory Impairments Neurological History: Reports: Hx Developmental Delay - intellectual disability Denies: Hx Dementia, Hx Seizures, Other Neuro Impairments/Disorders Psychiatric History: Reports: Hx Anxiety, Hx Depression, Hx Post Traumatic Stress Disorder, Hx Inpatient Treatment, Hx Community Mental Health Tx, Hx Bipolar Disorder - pt manic, Hx Suicide Attempt - past med overdoses, Hx of Violent Episodes Against Others, Other Psychiatric Issues/Disorders - PSYCHOSIS NOS, HX OF PTSD, SCHIZOAFFECTIVE DISORDER, BORDERLINE PERSONALITY Denies: Hx Attention Deficit Hyperactivity Disorder, Hx Eating Disorder, Hx Panic Disorder, Hx Schizophrenia, Hx Substance Abuse - Surgical History Surgery Procedure, Year, and Place: 2011-CATARACT EXTRACTION. GALLBLADDER REMOVED . HIP SURGERY ACHILD Hx Anesthesia Reactions: No - Immunization History Date of Tetanus Vaccine: Unknown Date of Influenza Vaccine: May 2012 Infectious Disease History: Denies: Hx Clostridium Difficile, Hx Hepatitis, Hx Human Immunodeficiency Virus (HIV), Hx of Known/Suspected MRSA, Hx Shingles, Hx Tuberculosis, Hx Known/ Suspected VRE, Hx Known/Suspected VRSA, History Other Infectious Disease, Traveled Outside the [place] in Last 30 Days - Family History Known Family History: Positive: Other - Anxiety and depression, [place] - father Negative: Cardiac Disease, Hypertension, Diabetes - Social History Alcohol Use: None Hx Substance Use: Yes Substance Use Type: Reports: None, Prescribed Hx Tobacco Use: Yes Smoking Status (MU): Former Smoker Type: Cigarettes Length of Time of Smoking/Using Tobacco: 2 year ago Have You Smoked in the Last Year: No Review of Systems Positive: Other - Negative ear ringing Positive: Abdominal Pain, Diarrhea, Nausea. Negative: Vomiting Positive: Other - "I fell on the toilet I was so dizzy" Neurological: Other - unsteady gait, weakness, and headache. All Other Systems Reviewed And Are Negative: Yes Physical Exam - Summary Physical Exam Summary: The patient is well-nourished in no acute distress and in no acute pain. Poor hygiene. The skin is warm and dry. Decreased skin turgor. HEENT: The head is normocephalic and atraumatic. The pupils are equal and reactive. The conjunctivae are clear and without drainage. Nares are patent and without drainage. Mouth reveals dry mucous membranes and the throat is without erythema and exudate. The external ears are intact. The ear canals are patent and without drainage. The tympanic membranes are intact. Horizontal nystagmus. Neck is supple with full range of motion and non-tender. There are no carotid bruits. There is no neck vein distension. Respiratory: Chest is non-tender. Lungs are clear to auscultation and breath sounds are symmetrical and equal. Cardiovascular: Heart is regular rate and rhythm. There is no murmur or rub auscultated. Pulses are symmetrical and equal. Abdomen: RUQ, MARLA, and epigastric tenderness. The abdomen is soft. There are hypoactive bowel sounds heard in all four quadrants and there is no organomegaly palpated. Musculoskeletal: There is no back pain noted. Extremities are non-tender with full range of motion. There is 2 second capillary refill. There is no peripheral edema or calf tenderness elicited. Neurological: Patient is alert and oriented to person, place and time. The patient has symmetrical motor strength in all four extremities. Cranial nerves are grossly intact. Deep tendon reflexes are symmetrical and equal in all four extremities. No FND noted. Psychiatric: The patient has an appropriate affect and does not exhibit any anxiety or depression. Triage Information Reviewed: Yes Vital Signs On Initial Exam: Initial Vitals Temp Pulse Resp BP Pulse Ox 98.1 F 88 20 166/97 97 03/29/17 12:37 03/29/17 12:37 03/29/17 12:37 03/29/17 12:37 03/29/17 12:37 Vital Signs Reviewed: Yes - Kriss Coma Scale Best Eye Response: 4 - Spontaneous Best Motor Response: 6 - Obeys Commands Best Verbal Response: 5 - Oriented Coma Scale Total: 15 Diagnostics - Vital Signs Vital Signs Temp Pulse Resp BP Pulse Ox 03/29/17 12:37 98.1 F 88 20 166/97 97 - Laboratory Lab Results: Lab Results 03/29/17 03/29/17 03/29/17 Range/Units 13:20 13:20 13:20 WBC 9.4 (3.5-10.8) 10^3/ul RBC 4.18 (4.0-5.4) 10^6/ul Hgb 11.2 L (12.0-16.0) g/dl Hct 34 L (35-47) % MCV 83 (80-97) fL MCH 27 (27-31) pg MCHC 32 (31-36) g/dl RDW 17 H (10.5-15) % Plt Count 218 (150-450) 10^3/ul MPV 9 (7.4-10.4) um3 Neut % (Auto) 68.6 (38-83) % Lymph % (Auto) 24.5 L (25-47) % Mccormick % (Auto) 4.2 (1-9) % Eos % (Auto) 2.1 (0-6) % Baso % (Auto) 0.6 (0-2) % Absolute Neuts (auto) 6.4 (1.5-7.7) 10^3/ul Absolute Lymphs (auto) 2.3 (1.0-4.8) 10^3/ul Absolute Monos (auto) 0.4 (0-0.8) 10^3/ul Absolute Eos (auto) 0.2 (0-0.6) 10^3/ul Absolute Basos (auto) 0.1 (0-0.2) 10^3/ul Absolute Nucleated RBC 0 10^3/ul Nucleated RBC % 0 Sodium 137 (133-145) mmol/L Potassium 4.9 (3.5-5.0) mmol/L Chloride 104 (101-111) mmol/L Carbon Dioxide 26 (22-32) mmol/L Anion Gap 7 (2-11) mmol/L BUN 6 (6-24) mg/dL Creatinine 0.75 (0.51-0.95) mg/dL Est GFR ( Amer) 105.2 (>60) Est GFR (Non-Af Amer) 81.8 (>60) BUN/Creatinine Ratio 8.0 (8-20) Glucose 281 H (70-100) mg/dL Lactic Acid 2.0 (0.5-2.0) mmol/L Calcium 8.8 (8.6-10.3) mg/dL Magnesium 1.6 L (1.9-2.7) mg/dL Total Bilirubin 0.20 (0.2-1.0) mg/dL AST 64 H (13-39) U/L ALT 51 (7-52) U/L Alkaline Phosphatase 171 H (34-104) U/L Troponin I 0.01 (<0.04) ng/mL Total Protein 6.5 (6.4-8.9) g/dL Albumin 3.3 (3.2-5.2) g/dL Globulin 3.2 (2-4) g/dL Albumin/Globulin Ratio 1.0 (1-3) Amylase 36 (29-103) U/L Lipase < 10 L (11.0-82.0) U/L TSH 1.66 (0.34-5.60) mcIU/mL Result Diagrams: 03/29/17 13:20 03/29/17 13:20 Lab Statement: Any lab studies that have been ordered have been reviewed, and results considered in the medical decision making process. - CT Brain CT Interpretation Completed By: Radiologist - NO ACUTE INTRACRANIAL PATHOLOGY. MODERATE SINUS MUCOSAL INFLAMMATORY DISEASE, WITH AN AIR-FLUID LEVEL IN THE RIGHT MAXILLARY. IN THE CORRECT CLINICAL SETTING, THIS MAY REPRESENT ACUTE SINUSITIS. A/P CT Interpretation Completed By: Radiologist - 1. HEPATOMEGALY WITH FATTY INFILTRATION OF LIVER. 2. FINDINGS CONSISTENT WITH CHRONIC PANCREATITIS. 3. FAT-CONTAINING UMBILICAL HERNIA. 4. NO OBSTRUCTION. ED physician has reviewed this radiology report and agrees. - EKG 1310 Cardiac Rate: NL - BPM 64 EKG Rhythm: Sinus Rhythm EKG Interpretation: Normal axis. Poor R-wave progression. Dizzy Course/Dx - Course Assessment/Plan: This patient is a 51 year old female BIBA to [facility] with a chief complaint of dizziness since 0300 this morning. The CC is described as room spinning. She reports I fell on the toilet I was so dizzy. The patient rates the pain 7/10 in severity. Symptoms aggravated by position change. Symptoms alleviated by nothing. Patient reports abdominal pain, nausea, diarrhea (one week), unsteady gait, weakness, and headache. Patient denies vomiting, and ear ringing. An EKG reveals NSR and poor R-wave progression. CT A/ P reveals 1. HEPATOMEGALY WITH FATTY INFILTRATION OF LIVER. 2. FINDINGS CONSISTENT WITH CHRONIC PANCREATITIS. 3. FAT-CONTAINING UMBILICAL HERNIA. 4. NO OBSTRUCTION. ED physician has reviewed this radiology report and agrees. CT Brain reveals NO ACUTE INTRACRANIAL PATHOLOGY. MODERATE SINUS MUCOSAL INFLAMMATORY DISEASE, WITH AN AIR-FLUID LEVEL IN THE RIGHT MAXILLARY. IN THE CORRECT CLINICAL SETTING, THIS MAY REPRESENT ACUTE SINUSITIS. Patient will be discharged with follow up from PCP. The patient is agreeable with this plan. pt had no diarrhea while in the ED. - Diagnoses Differential Diagnosis/HQI/PQRI: Labyrinthitis, Metabolic Abnormality, Other - hyperglycemia, vertigo, diarrhea, dehydration, pancreatitis, sbo, c. diff Provider Diagnoses: Dizziness, Hyperglycemia, Hypomagnesemia Discharge - Discharge Plan Condition: Stable Disposition: HOME Patient Education Materials: Dizziness (ED), Diabetic Hyperglycemia (ED), Hypomagnesemia (ED) Referrals: Gabo Sullivan MD [Primary Care Provider] - 3 Days The documentation as recorded by the Nicky roth Alfonso accurately reflects the service I personally performed and the decisions made by , Heriberto Way MD.
[2017-03-29 16:44] VITALS: BP 138/76
== END 2017-03-29 16:45 | disposition home or self-care (01) ==
LOC: ED 12:35
DX: R42 Dizziness and giddiness (principal); E13.65 Other specified diabetes mellitus with hyperglycemia; E83.42 Hypomagnesemia
CPT/HCPCS: 36415; 70450; 74176; 80053; 82150; 83605; 83690; 83735; 84443; 84484; 85025; 93005; 96374; 96375; 99284; J2060; J2405

== ENCOUNTER 2017-04-03 22:08 | Emergency (ER) | payer MEDICARE, MEDICAID ==
[2017-04-03] MEDS ORDERED: Charcoal 50 GM/Sorbitol* 50 GM/240 ML BTL PO ONE (22:10)
[2017-04-03] MEDS ORDERED: NS 0.9% 1000 ML* 1,000 ML IV ONE (22:14)
--- NOTE | 2017-04-03 23:30 | ED ---
Andre Rosales Rebecca, scribed for David Gamez MD on 04/03/17 at 2234 . Substance Abuse/Use - HPI Summary HPI Summary: Pt is a 51 y/o F BIBA who presents to ED s/p possible Flexeril OD. Pt has an Rx for Flexeril and tonight at 2129 while taking her daily medication she was distracted by her kitten and accidentally took too many. Is unsure of exact amount, but believes it was between 15 and 20. Also took 250 mg Trazadone which is her prescribed dose. Only complaint at this time is fatigue. Denies SIs. Poison control was notified FORM GRADER OPERATOR and advised that she may be tired and recommended activated charcoal. - History Of Current Complaint Chief Complaint: EDOverdose Stated Complaint: POSS MED OVERDOSE Time Seen by Provider: 04/03/17 22:14 Hx Obtained From: Patient Hx Last Menstrual Period: 09/29/16 Ingestion History: Type/Name Of Drug - Flexeril, Amount Ingested - 15-20 tabs, Approximate Time Of Ingestion - 2129 Overdose Characteristics: Oral Character: Other - Fatigue Aggravating Factor(s): Nothing Alleviating Factor(s): Nothing Associated Signs And Symptoms: Negative - Allergies/Home Medications Allergies/Adverse Reactions: Allergies Allergy/AdvReac Type Severity Reaction Status Date / Time Ibuprofen Allergy Severe Hives Verified 03/17/17 17:47 Latex Allergy Severe Rash Verified 03/17/17 17:47 Sulfa Antibiotics Allergy Severe Hives Verified 03/17/17 17:47 Penicillins Allergy Intermediate Rash Verified 03/17/17 17:47 Nalbuphine Allergy Unknown Unknown Verified 03/17/17 17:47 Reaction Details Perphenazine Allergy Unknown Unknown Verified 03/17/17 17:47 Reaction Details Ciprofloxacin [From Cipro] AdvReac Severe Dizziness Verified 03/17/17 17:47 Tramadol AdvReac Severe Altered Verified 03/17/17 17:47 Mental Status [place] AdvReac Mild See Comment Verified 03/17/17 17:47 ENVIRONMENTAL Allergy Mild SINUS Uncoded 03/17/17 17:47 PMH/Surg Hx/FS Hx/Imm Hx Endocrine/Hematology History: Reports: Hx Diabetes, Hx Thyroid Disease, Other Endocrine/Hematological Disorders - Chronic pancreatitis Denies: Hx Anticoagulant Therapy Cardiovascular History: Reports: Hx Hypertension, Other Cardiovascular Problems/ Disorders - PER H&P- HX OF PSVT 04/2008 Denies: Hx Pacemaker/ICD Respiratory History: Reports: Hx Asthma, Hx Seasonal Allergies, Hx Sleep Apnea - uses c-pap but hasn't used it for 5 mos due to being broken Denies: Hx Chronic Bronchitis, Hx Chronic Obstructive Pulmonary Disease (COPD ), Hx Cystic Fibrosis, Hx Lung Cancer, Hx Pleural Effusion, Hx Pneumonia, Hx Pulmonary Edema, Hx Pulmonary Embolism, Other Respiratory Problems/Disorders GI History: Reports: Hx Gall Bladder Disease, Hx Gastroesophageal Reflux Disease , Hx Gastrointestinal Bleed, Hx Irritable Bowel, Other GI Disorders - pancreatitis/gastroenteritis Denies: Hx Ulcer History: Denies: Hx Renal Disease Musculoskeletal History: Reports: Hx Arthritis, Hx Back Problems, Other Musculoskeletal History - GEN MUSCULOSKELETAL PAIN Denies: Hx Rheumatoid Arthritis, Hx Bursitis, Hx Congenital Bone Abnormalities, Hx Fibromyalgia, Hx Gout, Hx Orthopedic Injury, Hx Osteoporosis, Hx Scoliosis, Hx Tendonitis Sensory History: Reports: Hx Cataracts, Hx Contacts or Glasses, Hx Vision Problem Denies: Hx Eye Injury, Hx Eye Prosthesis, Hx Glaucoma, Hx Macular Degeneration, Hx Deafness, Hx Hearing Aid, Hx Hearing Problem, Other Sensory Impairments Opthamlomology History: Reports: Hx Cataracts, Hx Contacts or Glasses, Hx Vision Problem Denies: Hx Eye Injury, Hx Eye Prosthesis, Hx Glaucoma, Hx Macular Degeneration, Other Sensory Impairments Neurological History: Reports: Hx Developmental Delay - intellectual disability Denies: Hx Dementia, Hx Seizures, Other Neuro Impairments/Disorders Psychiatric History: Reports: Hx Anxiety, Hx Depression, Hx Post Traumatic Stress Disorder, Hx Inpatient Treatment, Hx Community Mental Health Tx, Hx Bipolar Disorder - pt manic, Hx Suicide Attempt - past med overdoses, Hx of Violent Episodes Against Others, Other Psychiatric Issues/Disorders - PSYCHOSIS NOS, HX OF PTSD, SCHIZOAFFECTIVE DISORDER, BORDERLINE PERSONALITY Denies: Hx Attention Deficit Hyperactivity Disorder, Hx Eating Disorder, Hx Panic Disorder, Hx Schizophrenia, Hx Substance Abuse - Surgical History Surgery Procedure, Year, and Place: 2011-CATARACT EXTRACTION. GALLBLADDER REMOVED . HIP SURGERY ACHILD Hx Anesthesia Reactions: No - Immunization History Date of Tetanus Vaccine: Unknown Date of Influenza Vaccine: May 2012 Infectious Disease History: No Infectious Disease History: Denies: Hx Clostridium Difficile, Hx Hepatitis, Hx Human Immunodeficiency Virus (HIV), Hx of Known/Suspected MRSA, Hx Shingles, Hx Tuberculosis, Hx Known/ Suspected VRE, Hx Known/Suspected VRSA, History Other Infectious Disease, Traveled Outside the [place] in Last 30 Days - Family History Known Family History: Positive: Other - Anxiety and depression, [place] - father Negative: Cardiac Disease, Hypertension, Diabetes Family History: Depression and anxiety - Social History Alcohol Use: None Hx Substance Use: Yes Substance Use Type: Reports: None, Prescribed Hx Tobacco Use: Yes Smoking Status (MU): Light Every Day Tobacco Smoker Type: Cigarettes Length of Time of Smoking/Using Tobacco: 2 year ago Have You Smoked in the Last Year: No Review of Systems Positive: Fatigue Positive: Other - NEGATIVE: SIs All Other Systems Reviewed And Are Negative: Yes Physical Exam Triage Information Reviewed: Yes Vital Signs On Initial Exam: Initial Vitals Temp Pulse Resp BP Pulse Ox 99.5 F 100 14 162/99 98 04/03/17 22:19 04/03/17 22:19 04/03/17 22:19 04/03/17 22:19 04/03/17 22:19 Vital Signs Reviewed: Yes Appearance: Positive: No Pain Distress, Obese Skin: Positive: Warm Head/Face: Positive: Normal Head/Face Inspection Eyes: Positive: JENNIFER ENT: Positive: Hearing grossly normal Neck: Positive: Supple, Nontender Respiratory/Lung Sounds: Positive: Breath Sounds Present Cardiovascular: Positive: RRR Abdomen Description: Positive: Soft Bowel Sounds: Positive: Present Musculoskeletal: Positive: Strength/ROM Intact Neurological: Positive: Alert, Oriented to Person Place, Time Psychiatric: Positive: Affect/Mood Appropriate - Fisher Coma Scale Coma Scale Total: 15 Diagnostics - Vital Signs Vital Signs Temp Pulse Resp BP Pulse Ox 04/03/17 22:22 107 28 96 04/03/17 22:21 162/99 04/03/17 22:19 99.5 F 100 14 162/99 98 - Laboratory Result Diagrams: 04/03/17 23:20 04/04/17 00:15 Lab Statement: Any lab studies that have been ordered have been reviewed, and results considered in the medical decision making process. - EKG 2339 Cardiac Rate: Tachycardia - 103 bpm EKG Rhythm: Sinus Tachycardia ST Segment: Non-Specific - Non-specific ST T abnormalities 0448 Cardiac Rate: NL - 85 bpm EKG Rhythm: Sinus Rhythm EKG Interpretation: QT interval is now normal Re-Evaluation - Re-Evaluation First Eval Comment: pt seen and cleared by crisis Course/Dx - Course Assessment/Plan: Pt is a 51 y/o F BIBA who presents to ED s/p possible Flexeril OD. Pt has an Rx for Flexeril and tonight at 2130 while taking her daily medication she was distracted by her kitten and accidentally took too many. Is unsure of exact amount, but believes it was between 15 and 20. Also took 250 mg Trazadone which is her prescribed dose. Only complaint is fatigue and denies SIs. Poison control was notified FORM GRADER OPERATOR and advised that she may be tired and recommended activated charcoal. Lactic acid of 3.5. EKG is sinus tachycardia with non-specific ST T abnormalities. In the ED course, pt was administered charcoal 50 GM/Sorbitol, magnesium sulfate and fluids. 1st EKG was sinus tachycardia with non-specific ST T abnormalities. 2nd EKG is sinus rhytm with the QT wave now normal. Medically clear for MHE at 0455. After MHE and review of case with Dr. Tierney, it has been determined that the pt will be D/C to home. Elevated BP noted and advised to f/u with PCP. - Diagnoses Provider Diagnoses: Drug overdose - Critical Care Time Critical Care Time: 30-74 min Discharge - Discharge Plan Condition: Stable Disposition: HOME Referrals: Gabo Sullivan MD [Primary Care Provider] - The documentation as recorded by the Andre roth Rebecca accurately reflects the service I personally performed and the decisions made by me, David Gamez MD.
[2017-04-03 23:42] LABS: Hematocrit 38 % (35-47); Hemoglobin 12.3 g/dl (12.0-16.0); Mean Corpuscular HGB Conc 32 g/dl (31-36); Mean Corpuscular Hemoglobin 27 pg (27-31); Mean Corpuscular Volume 83 fL (80-97); Mean Platelet Volume 9 um3 (7.4-10.4); Red Cell Distribution Width 17 % (10.5-15); White Blood Count 10.8 10^3/ul (3.5-10.8)
[2017-04-03 23:56] LABS: Acetaminophen < 15 mcg/mL; Alcohol < 10 mg/dL (<10); Salicylate < 2.50 mg/dL (<30)
[2017-04-03 23:57] LABS: ALT 51 U/L (7-52); Albumin 3.6 g/dL (3.2-5.2); Alkaline Phosphatase 165 U/L (34-104); BUN/Creatinine Ratio 15.7 (8-20); Blood Urea Nitrogen 13 mg/dL (6-24); CO2 Carbon Dioxide 22 mmol/L (22-32); Calcium 8.8 mg/dL (8.6-10.3); Chloride 106 mmol/L (101-111); EGFR African American 93.6 (>60); EGFR Non-African American 72.8 (>60); Globulin 3.5 g/dL (2-4); Glucose 129 mg/dL (70-100); Sodium 136 mmol/L (133-145); Total Protein 7.1 g/dL (6.4-8.9)
[2017-04-03 23:58] LABS: Anion Gap 8 mmol/L (2-11)
[2017-04-04 00:44] LABS: Calcium 8.3 mg/dL (8.6-10.3); Magnesium 1.6 mg/dL (1.9-2.7)
[2017-04-04] MEDS ORDERED: Magnesium Sulfate 2 GM IV* 2 GM/50 ML BAG IVPB ONE (00:50)
[2017-04-04 08:01] VITALS: BP 120/63
== END 2017-04-04 08:00 | disposition home or self-care (01) ==
LOC: ED 22:08
DX: R53.83 Other fatigue (principal); R00.2 Palpitations; F17.210 Nicotine dependence, cigarettes, uncomplicated; T48.1X1A Poisoning by skeletal muscle relaxants [neuromuscular blocking agents], accidental (unintentional), initial encounter; Y92.9 Unspecified place or not applicable
CPT/HCPCS: 36415; 80053; 80320; 80329; 82310; 83605; 83735; 85025; 93005; 99285; A9270-GY; G0480; J3475

== ENCOUNTER → 2017-04-05 13:46 | Emergency (ER) | payer MEDICARE, MEDICAID ==
[~2017-04-05 13:46] MED LIST changes: +Charcoal ACTIVATED* 25 GM/120 ML BTL ONE; +Charcoal ACTIVATED* 25 GM/120 ML BTL PO ONE; -NS 0.9% 1000 ML* 1,000 ML IV ONE
[2017-04-05 14:12] LABS: Hematocrit 36 % (35-47); Hemoglobin 11.6 g/dl (12.0-16.0); Mean Corpuscular HGB Conc 32 g/dl (31-36); Mean Corpuscular Hemoglobin 26 pg (27-31); Mean Corpuscular Volume 82 fL (80-97); Mean Platelet Volume 9 um3 (7.4-10.4); Red Blood Count 4.43 10^6/ul (4.0-5.4); Red Cell Distribution Width 18 % (10.5-15); White Blood Count 9.7 10^3/ul (3.5-10.8)
[2017-04-05 14:27] LABS: ALT 45 U/L (7-52); AST 68 U/L (13-39); Albumin 3.3 g/dL (3.2-5.2); Alkaline Phosphatase 200 U/L (34-104); Anion Gap 6 mmol/L (2-11); BUN/Creatinine Ratio 12.2 (8-20); Blood Urea Nitrogen 12 mg/dL (6-24); CO2 Carbon Dioxide 24 mmol/L (22-32); Calcium 8.6 mg/dL (8.6-10.3); Chloride 103 mmol/L (101-111); EGFR African American 77.3 (>60); EGFR Non-African American 60.1 (>60); Globulin 3.5 g/dL (2-4); Glucose 388 mg/dL (70-100); Potassium 5.5 mmol/L (3.5-5.0); Sodium 133 mmol/L (133-145); Total Protein 6.8 g/dL (6.4-8.9)
[2017-04-05 14:47] LABS: Acetaminophen 41 mcg/mL; Alcohol < 10 mg/dL (<10); Salicylate < 2.50 mg/dL (<30)
[2017-04-05 16:33] VITALS: BP 135/79
[2017-04-05 16:34] LABS: ALT 43 U/L (7-52); AST 60 U/L (13-39); Albumin 3.2 g/dL (3.2-5.2); Alkaline Phosphatase 195 U/L (34-104); Globulin 3.2 g/dL (2-4); Indirect Bilirubin 0.2 mg/dL (0.3-1.0); Total Protein 6.4 g/dL (6.4-8.9)
[2017-04-05 16:52] LABS: Acetaminophen 24 mcg/mL; Alcohol < 10 mg/dL (<10); Salicylate < 2.50 mg/dL (<30)
--- NOTE | 2017-04-06 18:24 | ED ---
Jordon Rosales Angela, scribed for Heriberto Way MD on 04/06/17 at 1127 . Progress - Progress Note Progress Note: This patient is a 51 year old F [facility] s/p taking approximately 20 325 mg liquid Tylenol pills yesterday. This pt was signed out from Dr. St, pending disposition, awaiting MHE. Mental health provider evaluated the pt and cleared the pt. The pt will be discharged home in stable condition with a dx of depression. Course/Dx - Course Course Of Treatment: This pt was signed out from Dr. St, pending disposition , awaiting MHE. Mental health provider evaluated the pt and cleared the pt. The pt will be discharged home in stable condition. - Diagnoses Provider Diagnoses: Depression The documentation as recorded by the Jordon roth Angela accurately reflects the service I personally performed and the decisions made by Rayna de león Drew, MD.
--- NOTE | 2017-04-10 12:01 | ED ---
Nicky Rosales Alfonso, scribed for Brian St MD on 04/05/17 at 1357 . Substance Abuse/Use - HPI Summary HPI Summary: This patient is a 51 year old F [facility] s/p taking approximately 20 325 mg liquid Tylenol pills approximately 2 hours ago. Symptoms aggravated by stress (cousins). Symptoms alleviated by nothing. Patient reports feeling helpless, nausea, SOB, and SI. Patient denies CP, and HI. PMHx includes DM2, suicide attempts, anxiety, depression, and PTSD. Patient medically cleared for [facility] at 1700. - History Of Current Complaint Chief Complaint: EDOverdose Stated Complaint: OVER DOSE Time Seen by Provider: 04/05/17 13:54 Hx Obtained From: Patient Ingestion History: Type/Name Of Drug - Tylenol, Amount Ingested - 20 325 mg pills, Approximate Time Of Ingestion - 2 hours ago Overdose Characteristics: Oral Severity Initially: Moderate Severity Currently: Moderate Aggravating Factor(s): Recent Stress Alleviating Factor(s): Nothing Associated Signs And Symptoms: Other: - feeling helpless, nausea, SOB, and SI. Patient denies CP, and HI. Related Hx: Suicidal, Recent Stressors, Prior Psych Admission - Allergies/Home Medications Allergies/Adverse Reactions: Allergies Allergy/AdvReac Type Severity Reaction Status Date / Time Ibuprofen Allergy Severe Hives Verified 04/05/17 13:51 Latex Allergy Severe Rash Verified 04/05/17 13:51 Sulfa Antibiotics Allergy Severe Hives Verified 04/05/17 13:51 Penicillins Allergy Intermediate Rash Verified 04/05/17 13:51 Nalbuphine Allergy Unknown Unknown Verified 04/05/17 13:51 Reaction Details Perphenazine Allergy Unknown Unknown Verified 04/05/17 13:51 Reaction Details Ciprofloxacin [From Cipro] AdvReac Severe Dizziness Verified 04/05/17 13:51 Tramadol AdvReac Severe Altered Verified 04/05/17 13:51 Mental Status [place] AdvReac Mild See Comment Verified 04/05/17 13:51 ENVIRONMENTAL Allergy Mild SINUS Uncoded 04/05/17 13:51 PMH/Surg Hx/FS Hx/Imm Hx Endocrine/Hematology History: Reports: Hx Diabetes, Hx Thyroid Disease, Other Endocrine/Hematological Disorders - Chronic pancreatitis Denies: Hx Anticoagulant Therapy Cardiovascular History: Reports: Hx Hypertension, Other Cardiovascular Problems/ Disorders - PER H&P- HX OF PSVT 04/2008 Denies: Hx Pacemaker/ICD Respiratory History: Reports: Hx Asthma, Hx Seasonal Allergies, Hx Sleep Apnea - uses c-pap but hasn't used it for 5 mos due to being broken Denies: Hx Chronic Bronchitis, Hx Chronic Obstructive Pulmonary Disease (COPD ), Hx Cystic Fibrosis, Hx Lung Cancer, Hx Pleural Effusion, Hx Pneumonia, Hx Pulmonary Edema, Hx Pulmonary Embolism, Other Respiratory Problems/Disorders GI History: Reports: Hx Gall Bladder Disease, Hx Gastroesophageal Reflux Disease , Hx Gastrointestinal Bleed, Hx Irritable Bowel, Other GI Disorders - pancreatitis/gastroenteritis Denies: Hx Ulcer History: Denies: Hx Renal Disease Musculoskeletal History: Reports: Hx Arthritis, Hx Back Problems, Other Musculoskeletal History - GEN MUSCULOSKELETAL PAIN Denies: Hx Rheumatoid Arthritis, Hx Bursitis, Hx Congenital Bone Abnormalities, Hx Fibromyalgia, Hx Gout, Hx Orthopedic Injury, Hx Osteoporosis, Hx Scoliosis, Hx Tendonitis Sensory History: Reports: Hx Cataracts, Hx Contacts or Glasses, Hx Vision Problem Denies: Hx Eye Injury, Hx Eye Prosthesis, Hx Glaucoma, Hx Macular Degeneration, Hx Deafness, Hx Hearing Aid, Hx Hearing Problem, Other Sensory Impairments Opthamlomology History: Reports: Hx Cataracts, Hx Contacts or Glasses, Hx Vision Problem Denies: Hx Eye Injury, Hx Eye Prosthesis, Hx Glaucoma, Hx Macular Degeneration, Other Sensory Impairments Neurological History: Reports: Hx Developmental Delay - intellectual disability Denies: Hx Dementia, Hx Seizures, Other Neuro Impairments/Disorders Psychiatric History: Reports: Hx Anxiety, Hx Depression, Hx Post Traumatic Stress Disorder, Hx Inpatient Treatment, Hx Community Mental Health Tx, Hx Bipolar Disorder - pt manic, Hx Suicide Attempt - past med overdoses, Hx of Violent Episodes Against Others, Other Psychiatric Issues/Disorders - PSYCHOSIS NOS, HX OF PTSD, SCHIZOAFFECTIVE DISORDER, BORDERLINE PERSONALITY Denies: Hx Attention Deficit Hyperactivity Disorder, Hx Eating Disorder, Hx Panic Disorder, Hx Schizophrenia, Hx Substance Abuse - Surgical History Surgery Procedure, Year, and Place: 2011-CATARACT EXTRACTION. GALLBLADDER REMOVED . HIP SURGERY ACHILD Hx Anesthesia Reactions: No - Immunization History Date of Tetanus Vaccine: Unknown Date of Influenza Vaccine: May 2012 Infectious Disease History: No Infectious Disease History: Denies: Hx Clostridium Difficile, Hx Hepatitis, Hx Human Immunodeficiency Virus (HIV), Hx of Known/Suspected MRSA, Hx Shingles, Hx Tuberculosis, Hx Known/ Suspected VRE, Hx Known/Suspected VRSA, History Other Infectious Disease, Traveled Outside the [place] in Last 30 Days - Family History Known Family History: Positive: Other - Anxiety and depression, [place] - father Negative: Cardiac Disease, Hypertension, Diabetes Family History: Depression and anxiety - Social History Alcohol Use: None Hx Substance Use: Yes Substance Use Type: Reports: None, Prescribed Hx Tobacco Use: Yes Smoking Status (MU): Light Every Day Tobacco Smoker Type: Cigarettes Length of Time of Smoking/Using Tobacco: 2 year ago Have You Smoked in the Last Year: No Review of Systems Negative: Fever, Chills Negative: Erythema Negative: Sore Throat Negative: Chest Pain Positive: Shortness Of Breath. Negative: Cough Positive: Nausea. Negative: Abdominal Pain, Vomiting Negative: dysuria, hematuria Negative: Myalgia, Edema Negative: Rash Neurological: Other - 20 325 mg liquid Tylenol pills, "feeling helpless," SI; negative HI, dizziness All Other Systems Reviewed And Are Negative: Yes Physical Exam Triage Information Reviewed: Yes Vital Signs On Initial Exam: Initial Vitals Temp Pulse Resp BP Pulse Ox 98.8 F 84 16 160/97 98 04/05/17 13:49 04/05/17 13:49 04/05/17 13:49 04/05/17 13:49 04/05/17 13:49 Vital Signs Reviewed: Yes Appearance: Positive: Well-Appearing, No Pain Distress, Well-Nourished Skin: Positive: Warm, Dry Head/Face: Positive: Normal Head/Face Inspection Eyes: Positive: Conjunctiva Clear ENT: Positive: Normal ENT inspection Neck: Positive: Other: - Musculoskeletal ROM normal neck. (-) JVD, (-) Stridor, (-) Tracheal deviation Lymph: (-) Cervical adenopathy Respiratory/Lung Sounds: Positive: Other - Effort normal. (-) Respiratory distress, (-) Wheezes, (-) Rales Cardiovascular: Positive: Other - Rhythm regular, rate normal, Heart sounds normal; Intact distal pulses; The pedal pulses are 2+ and symmetric. Radial pulses are 2+ and symmetric. (-) Murmur Abdomen Description: Positive: Other: - Soft, (-) Tenderness, (-) Distension, (- ) Guarding, (-) Rebound Musculoskeletal: Negative: Edema Left, Edema Right Neurological: Positive: Alert, Oriented to Person Place, Time Psychiatric: Positive: Other - Refusing eye contact. Diagnostics - Vital Signs Vital Signs Temp Pulse Resp BP Pulse Ox 04/05/17 13:49 98.8 F 84 16 160/97 98 - Laboratory Result Diagrams: 04/05/17 14:00 04/05/17 14:00 Lab Statement: Any lab studies that have been ordered have been reviewed, and results considered in the medical decision making process. - EKG 1422 Cardiac Rate: NL - BPM 69 EKG Rhythm: Sinus Rhythm EKG Interpretation: No STEMI Course/Dx - Course Assessment/Plan: This patient is a 51 year old F BIBA to [facility] s/p taking approximately 20 325 mg liquid Tylenol pills approximately 2 hours ago. Symptoms aggravated by stress (cousins). Symptoms alleviated by nothing. Patient reports feeling helpless, nausea, SOB, and SI. Patient denies CP, and HI. PMHx includes DM2, suicide attempts, anxiety, depression, and PTSD. An EKG reveals NSR. Patient is signed out at shift change, pending disposition. - Diagnoses Provider Diagnoses: Suicidal ideation, intentional overdose tylenol Discharge - Discharge Plan Condition: Stable Disposition: OTHER Discharge Disposition Comment: Patient is signed out at shift change, pending disposition. The documentation as recorded by the Nicky roth Alfonso accurately reflects the service I personally performed and the decisions made by me, Brian St MD.
== END ==
LOC: ED 13:46
DX: T39.1X2A Poisoning by 4-Aminophenol derivatives, intentional self-harm, initial encounter (principal); Y92.9 Unspecified place or not applicable; F17.210 Nicotine dependence, cigarettes, uncomplicated; E11.9 Type 2 diabetes mellitus without complications; E07.9 Disorder of thyroid, unspecified; K86.1 Other chronic pancreatitis; I10 Essential (primary) hypertension; J45.909 Unspecified asthma, uncomplicated; R62.50 Unspecified lack of expected normal physiological development in childhood; F31.9 Bipolar disorder, unspecified; F25.9 Schizoaffective disorder, unspecified; F60.3 Borderline personality disorder
CPT/HCPCS: 36415; 80053; 80076; 80320; 80329; 83605; 85025; 93005; 99285; A9270-GY; G0480

== ENCOUNTER 2017-04-06 21:22 | Emergency (ER) | payer MEDICARE, MEDICAID ==
[2017-04-06 22:19] LABS: Hematocrit 39 % (35-47); Hemoglobin 12.3 g/dl (12.0-16.0); Mean Corpuscular HGB Conc 32 g/dl (31-36); Mean Corpuscular Hemoglobin 27 pg (27-31); Mean Corpuscular Volume 83 fL (80-97); Mean Platelet Volume 9 um3 (7.4-10.4); Red Blood Count 4.64 10^6/ul (4.0-5.4); Red Cell Distribution Width 17 % (10.5-15); White Blood Count 9.3 10^3/ul (3.5-10.8)
[2017-04-06 22:34] LABS: ALT 35 U/L (7-52); AST 33 U/L (13-39); Albumin 3.7 g/dL (3.2-5.2); Alkaline Phosphatase 184 U/L (34-104); Anion Gap 8 mmol/L (2-11); BUN/Creatinine Ratio 11.3 (8-20); Blood Urea Nitrogen 11 mg/dL (6-24); C Reactive Protein 4.05 mg/L (< 5.00); CO2 Carbon Dioxide 25 mmol/L (22-32); Calcium 9.4 mg/dL (8.6-10.3); Chloride 100 mmol/L (101-111); EGFR African American 78.2 (>60); EGFR Non-African American 60.8 (>60); Globulin 3.7 g/dL (2-4); Lipase < 10 U/L (11.0-82.0); Magnesium 1.8 mg/dL (1.9-2.7); Potassium 4.8 mmol/L (3.5-5.0); Sodium 133 mmol/L (133-145); Total Protein 7.4 g/dL (6.4-8.9)
[2017-04-06 22:41] LABS: Glucose 510 mg/dL (70-100)
[2017-04-06] MEDS ORDERED: Morphine INJ* 2 MG/ML 1 ML SYRINGE IV ONE (23:20)
[2017-04-06] MEDS ORDERED: Ondansetron INJ* 2 MG/ML VIAL IV ONE (23:20)
[2017-04-06] MEDS: NS 0.9% 1000 ML* 2,000 ML IV ONE (23:34)
[2017-04-06 23:40] LABS: Troponin I 0.01 ng/mL (<0.04)
[2017-04-07] MEDS ORDERED: Insulin REGULAR(*) 1 UNITS UNIT IV PUSH ONE (01:23)
[2017-04-07] MEDS: NS 0.9% 1000 ML* 2,000 ML IV ONE (01:35)
[2017-04-07 01:55] LABS: Urine Bacteria Absent (Absent); Urine Bilirubin Negative (Negative); Urine Glucose 3+(>=500 mg/dL) (Negative); Urine Nitrite Negative (Negative)
[2017-04-07] MEDS ORDERED: Iodixanol* (CONTRAST) 320 MG/ML 100 ML SDV IV ONE (02:56)
[2017-04-07] MEDS ORDERED: Omeprazole CAP* 20 MG PO ONE (03:34)
[2017-04-07 04:18] VITALS: BP 142/64
--- NOTE | 2017-04-07 04:20 | ED ---
Andre Rosales Rebecca, scribed for RustamCorey on 04/06/17 at 2319 . Abdominal Pain/Female - HPI Summary HPI Summary: Pt is a 51 y/o F who presents to ED c/o abdominal pain with N/V. Sx began this morning upon leaving the ED after receiving activated charcoal in the ED s/p tylenol OD. Pain is described as being located in the epigastric region and initially was moderate, ranked 6/10 and is now severe, ranked 10/10.Sx aggravated by PO intake and alleviated by nothing, unchanged by following a bland diet. Denies CP. PSHx cholecystectomy. - History of Current Complaint Chief Complaint: EDAbdPain Stated Complaint: VOMITING Time Seen by Provider: 04/06/17 22:52 Hx Obtained From: Patient Hx Last Menstrual Period: 09/29/16 Onset/Duration: Still Present Severity Initially: Moderate Severity Currently: Severe Pain Intensity: 10 Pain Scale Used: 0-10 Numeric Location: Epigastric Aggravating Factor(s): Food Alleviating Factor(s): Nothing Associated Signs and Symptoms: Positive: Nausea, Vomiting. Negative: Chest Pain Allergies/Adverse Reactions: Allergies Allergy/AdvReac Type Severity Reaction Status Date / Time Ibuprofen Allergy Severe Hives Verified 04/06/17 23:36 Latex Allergy Severe Rash Verified 04/06/17 23:36 Sulfa Antibiotics Allergy Severe Hives Verified 04/06/17 23:36 Penicillins Allergy Intermediate Rash Verified 04/06/17 23:36 Nalbuphine Allergy Unknown Unknown Verified 04/06/17 23:36 Reaction Details Perphenazine Allergy Unknown Unknown Verified 04/06/17 23:36 Reaction Details Ciprofloxacin [From Cipro] AdvReac Severe Dizziness Verified 04/06/17 23:36 Tramadol AdvReac Severe Altered Verified 04/06/17 23:36 Mental Status [place] AdvReac Mild See Comment Verified 04/06/17 23:36 ENVIRONMENTAL Allergy Mild SINUS Uncoded 04/06/17 23:36 PMH/Surg Hx/FS Hx/Imm Hx Endocrine/Hematology History: Reports: Hx Diabetes, Hx Thyroid Disease, Other Endocrine/Hematological Disorders - Chronic pancreatitis Denies: Hx Anticoagulant Therapy Cardiovascular History: Reports: Hx Hypertension, Other Cardiovascular Problems/ Disorders - PER H&P- HX OF PSVT 04/2008 Denies: Hx Pacemaker/ICD Respiratory History: Reports: Hx Asthma, Hx Seasonal Allergies, Hx Sleep Apnea - uses c-pap but hasn't used it for 5 mos due to being broken Denies: Hx Chronic Bronchitis, Hx Chronic Obstructive Pulmonary Disease (COPD ), Hx Cystic Fibrosis, Hx Lung Cancer, Hx Pleural Effusion, Hx Pneumonia, Hx Pulmonary Edema, Hx Pulmonary Embolism, Other Respiratory Problems/Disorders GI History: Reports: Hx Gall Bladder Disease, Hx Gastroesophageal Reflux Disease , Hx Gastrointestinal Bleed, Hx Irritable Bowel, Other GI Disorders - pancreatitis/gastroenteritis Denies: Hx Ulcer History: Denies: Hx Renal Disease Musculoskeletal History: Reports: Hx Arthritis, Hx Back Problems, Other Musculoskeletal History - GEN MUSCULOSKELETAL PAIN Denies: Hx Rheumatoid Arthritis, Hx Bursitis, Hx Congenital Bone Abnormalities, Hx Fibromyalgia, Hx Gout, Hx Orthopedic Injury, Hx Osteoporosis, Hx Scoliosis, Hx Tendonitis Sensory History: Reports: Hx Cataracts, Hx Contacts or Glasses, Hx Vision Problem Denies: Hx Eye Injury, Hx Eye Prosthesis, Hx Glaucoma, Hx Macular Degeneration, Hx Deafness, Hx Hearing Aid, Hx Hearing Problem, Other Sensory Impairments Opthamlomology History: Reports: Hx Cataracts, Hx Contacts or Glasses, Hx Vision Problem Denies: Hx Eye Injury, Hx Eye Prosthesis, Hx Glaucoma, Hx Macular Degeneration, Other Sensory Impairments Neurological History: Reports: Hx Developmental Delay - intellectual disability Denies: Hx Dementia, Hx Seizures, Other Neuro Impairments/Disorders Psychiatric History: Reports: Hx Anxiety, Hx Depression, Hx Post Traumatic Stress Disorder, Hx Inpatient Treatment, Hx Community Mental Health Tx, Hx Bipolar Disorder - pt manic, Hx Suicide Attempt - past med overdoses, Hx of Violent Episodes Against Others, Other Psychiatric Issues/Disorders - PSYCHOSIS NOS, HX OF PTSD, SCHIZOAFFECTIVE DISORDER, BORDERLINE PERSONALITY Denies: Hx Attention Deficit Hyperactivity Disorder, Hx Eating Disorder, Hx Panic Disorder, Hx Schizophrenia, Hx Substance Abuse - Surgical History Surgery Procedure, Year, and Place: 2011-CATARACT EXTRACTION. GALLBLADDER REMOVED . HIP SURGERY ACHILD Hx Anesthesia Reactions: No - Immunization History Date of Tetanus Vaccine: Unknown Date of Influenza Vaccine: May 2012 Infectious Disease History: No Infectious Disease History: Denies: Hx Clostridium Difficile, Hx Hepatitis, Hx Human Immunodeficiency Virus (HIV), Hx of Known/Suspected MRSA, Hx Shingles, Hx Tuberculosis, Hx Known/ Suspected VRE, Hx Known/Suspected VRSA, History Other Infectious Disease, Traveled Outside the [place] in Last 30 Days - Family History Known Family History: Positive: Other - Anxiety and depression, [place] - father Negative: Cardiac Disease, Hypertension, Diabetes Family History: Depression and anxiety - Social History Alcohol Use: None Hx Substance Use: Yes Substance Use Type: Reports: None, Prescribed Hx Tobacco Use: Yes Smoking Status (MU): Light Every Day Tobacco Smoker Type: Cigarettes Length of Time of Smoking/Using Tobacco: 2 year ago Have You Smoked in the Last Year: No Review of Systems Negative: Chest Pain Positive: Abdominal Pain - epigastric, Vomiting, Nausea All Other Systems Reviewed And Are Negative: Yes Physical Exam - Summary Physical Exam Summary: Appearance: Well appearing, no pain distress Skin: warm, dry, reflects adequate perfusion Head/face: normal Eyes: EOMI, JENNIFER ENT: normal Neck: supple, nontender Respiratory: CTA, breath sounds present Cardiovascular: RRR, pulses symmetrical Abdomen: tenderness in the epigastric area, soft Bowel: present Musculoskeletal: normal, strength/ROM intact Neuro: normal, sensory motor intact, A&Ox3 Triage Information Reviewed: Yes Vital Signs On Initial Exam: Initial Vitals Temp Pulse Resp BP Pulse Ox 99.4 F 89 16 142/84 96 04/06/17 21:25 04/06/17 21:25 04/06/17 21:25 04/06/17 21:25 04/06/17 21:25 Vital Signs Reviewed: Yes Diagnostics - Vital Signs Vital Signs Temp Pulse Resp BP Pulse Ox 04/06/17 21:41 91 97 04/06/17 21:39 133/105 04/06/17 21:25 99.4 F 90 16 142/84 96 - Laboratory Lab Results: Lab Results 04/06/17 04/06/17 Range/Units 22:05 22:05 WBC 9.3 (3.5-10.8) 10^3/ul RBC 4.64 (4.0-5.4) 10^6/ul Hgb 12.3 (12.0-16.0) g/dl Hct 39 (35-47) % MCV 83 (80-97) fL MCH 27 (27-31) pg MCHC 32 (31-36) g/dl RDW 17 H (10.5-15) % Plt Count 216 (150-450) 10^3/ul MPV 9 (7.4-10.4) um3 Neut % (Auto) 68.5 (38-83) % Lymph % (Auto) 26.0 (25-47) % [place] % (Auto) 3.5 (1-9) % Eos % (Auto) 1.3 (0-6) % Baso % (Auto) 0.7 (0-2) % Absolute Neuts (auto) 6.4 (1.5-7.7) 10^3/ul Absolute Lymphs (auto) 2.4 (1.0-4.8) 10^3/ul Absolute Monos (auto) 0.3 (0-0.8) 10^3/ul Absolute Eos (auto) 0.1 (0-0.6) 10^3/ul Absolute Basos (auto) 0.1 (0-0.2) 10^3/ul Absolute Nucleated RBC 0.01 10^3/ul Nucleated RBC % 0.1 Sodium 133 (133-145) mmol/L Potassium 4.8 (3.5-5.0) mmol/L Chloride 100 L (101-111) mmol/L Carbon Dioxide 25 (22-32) mmol/L Anion Gap 8 (2-11) mmol/L BUN 11 (6-24) mg/dL Creatinine 0.97 H (0.51-0.95) mg/dL Est GFR ( Amer) 78.2 (>60) Est GFR (Non-Af Amer) 60.8 (>60) BUN/Creatinine Ratio 11.3 (8-20) Glucose 510 H* (70-100) mg/dL Calcium 9.4 (8.6-10.3) mg/dL Magnesium 1.8 L (1.9-2.7) mg/dL Total Bilirubin 0.30 (0.2-1.0) mg/dL AST 33 (13-39) U/L ALT 35 (7-52) U/L Alkaline Phosphatase 184 H (34-104) U/L C-Reactive Protein 4.05 (< 5.00) mg/L Total Protein 7.4 (6.4-8.9) g/dL Albumin 3.7 (3.2-5.2) g/dL Globulin 3.7 (2-4) g/dL Albumin/Globulin Ratio 1.0 (1-3) Lipase < 10 L (11.0-82.0) U/L Result Diagrams: 04/06/17 22:05 04/06/17 22:05 Lab Statement: Any lab studies that have been ordered have been reviewed, and results considered in the medical decision making process. - Radiology CXR Xray Interpretation: No Acute Changes Radiology Interpretation Completed By: ED Physician - CT CT Abd/Pel CT Interpretation: No Acute Changes - There is no bowel obstruction, free air or free fluid. Negative for dierticulitis or colitis. Normal appendix. Ventral hernia containing no bowel. Pancreatic calcifications consistent with chronic pancreatitis. Fatty mildly enlarged liver. Normal spleen. Normal kidneys urinary tract and urinary bladder. Left adrenal nodule unchanged. Normal right adrenal. Overall no acute abnormalities are identified. ED physician reviewed radiology report and agrees. CT Interpretation Completed By: Radiologist Re-Evaluation - Re-Evaluation First Eval Re-Evaluation Time: 03:31 Comment: Discussed CT results. Pt expresses that she would like to be D/C to home. Abdominal Pain Fem Course/Dx - Course Course Of Treatment: Pt is a 51 y/o F who presents to ED c/o abdominal pain with N/V. Sx began this morning upon leaving the ED after receiving activated charcoal in the ED s/p tylenol OD. Pain is described as being located in the epigastric region and initially was moderate, ranked 6/10 and is now severe, ranked 10/10.Sx aggravated by PO intake and alleviated by nothing, unchanged by following a bland diet. Denies CP. PSHx cholecystectomy. CXR reveals no acute findings, as read by ED physician. CT Abd/pel results outlined above. When discussing results, pt expresses that she would like to go home. She will be D/C to home with Dx of hyperglycemia, abdominal pain, chronic panreatitis with Rx for Perccocet and protonix, and a follow up with her PCP. She undestands and agrees. - Diagnoses Differential Diagnosis: Negative: Diverticulitis Provider Diagnoses: Abdominal pain, Chronic pancreatitis, Hyperglycemia Discharge - Discharge Plan Condition: Stable Disposition: HOME Prescriptions: Pantoprazole TAB (NF) [Protonix TAB (NF)] 40 mg PO DAILY #30 tab oxyCODONE/Acetamin 5/325 MG* [Percocet 5/325 TAB*] 1 tab PO Q8H PRN #10 tab MDD 3 PRN Reason: Pain Patient Education Materials: Pancreatitis (ED), Diabetic Hyperglycemia (ED) Referrals: Ola,Gabo, MD [Primary Care Provider] - 3 Days The documentation as recorded by the Andre roth Rebecca accurately reflects the service I personally performed and the decisions made by , Corey Easton.
--- NOTE | 2017-04-07 07:29 | RAD ---
INDICATION: Epigastric pain COMPARISON: February 15, 2017 TECHNIQUE: An AP portable view obtained at 2345 hours is submitted. FINDINGS: Bones/Soft Tissues: There are no acute bony findings. Cardiomediastinal: The cardiomediastinal silhouette is normal. Lungs: There are no infiltrates. Pleura: There are no pleural effusions. Other: There is partial eventration right hemidiaphragm, unchanged IMPRESSION: NO ACTIVE DISEASE.
--- NOTE | 2017-04-07 08:45 | RAD ---
CLINICAL HISTORY: Abdominal pain COMPARISON: Most recent CT of the abdomen and pelvis is dated July 24, 2015 TECHNIQUE: Contrast enhanced CT examination of the abdomen and pelvis from the lung bases through the initial tuberosities. The patient received 139 mL Visipaque 320 intravenously prior to imaging.The patient received oral contrast as well prior to imaging. FINDINGS: VISUALIZED LUNG BASES: At the lateral aspect of the right middle lobe (image 5) there is a pleural-based focus of groundglass opacification. Otherwise the visualized lung bases are grossly clear. There is no pleural effusion. ABDOMEN AND PELVIS: The liver is homogenously hypodense relative to the spleen consistent with hepatic steatosis. There are no focal or suspicious liver masses. In the cephalocaudal projection the liver measures 20.8 cm similar to the prior CT examination. The spleen, and adrenal glands are grossly normal in appearance. Again seen is coarse coarse calcification throughout the pancreas. There is no signs of acute peripancreatic inflammatory change. The gallbladder is surgically absent. The kidneys are normal in appearance without focal mass, calcification or signs of hydronephrosis. Neural contrast has progressed as far as the distal small bowel. The small and large bowel are not distended. The patient's normal appendix is identified in the right lower quadrant (axial image 110). There is no significant diverticulosis or signs of acute inflammatory change of the colon. There is no gross retroperitoneal or mesenteric lymphadenopathy. The pelvic viscera is normal in appearance. The abdominal aorta and iliac arteries are normal in course and diameter. Degenerative changes include multilevel loss of intervertebral disc height involving the lower thoracic and lumbar spine.There are no sinister bone lesions. IMPRESSION: Extensive chronic, degenerative and postsurgical findings as described in body the report without significant change since the most recent July 24, 2015 CT examination. There are no CT apparent acute abnormalities that would account for the patient's current presentation.
== END 2017-04-07 04:10 | disposition home or self-care (01) ==
LOC: ED 21:22
DX: R11.2 Nausea with vomiting, unspecified (principal); F17.210 Nicotine dependence, cigarettes, uncomplicated
CPT/HCPCS: 36415; 71010; 74177; 80053; 81003; 81015; 83690; 83735; 84484; 85025; 86140; 87077; 87086; 87186; 96374; 96375; 99285; A9270-GY; J2270; J2405; Q9967

== ENCOUNTER 2017-04-07 16:44 | Emergency (ER) | payer MEDICARE, MEDICAID ==
[2017-04-07] MEDS ORDERED: NS 0.9% 1000 ML* 1,000 ML IV SCH (17:15)
[2017-04-07] MEDS ORDERED: Insulin REGULAR(*) 1 UNITS UNIT IV PUSH ONE ×2 (18:24→18:30)
[2017-04-07] MEDS ORDERED: Morphine INJ* 2 MG/ML 1 ML SYRINGE IV ONE (18:29)
[2017-04-07 18:37] LABS: Hematocrit 36 % (35-47); Hemoglobin 11.6 g/dl (12.0-16.0); Mean Corpuscular HGB Conc 32 g/dl (31-36); Mean Corpuscular Hemoglobin 27 pg (27-31); Mean Corpuscular Volume 83 fL (80-97); Mean Platelet Volume 10 um3 (7.4-10.4); Red Blood Count 4.38 10^6/ul (4.0-5.4); Red Cell Distribution Width 17 % (10.5-15); White Blood Count 10.1 10^3/ul (3.5-10.8)
[2017-04-07 18:52] LABS: ALT 31 U/L (7-52); AST 30 U/L (13-39); Albumin 3.6 g/dL (3.2-5.2); Alkaline Phosphatase 172 U/L (34-104); Anion Gap 5 mmol/L (2-11); BUN/Creatinine Ratio 13.1 (8-20); Blood Urea Nitrogen 11 mg/dL (6-24); C Reactive Protein 3.13 mg/L (< 5.00); CO2 Carbon Dioxide 28 mmol/L (22-32); Calcium 8.7 mg/dL (8.6-10.3); Chloride 103 mmol/L (101-111); EGFR African American 92.3 (>60); EGFR Non-African American 71.8 (>60); Globulin 3.4 g/dL (2-4); Glucose 437 mg/dL (70-100); Lipase < 10 U/L (11.0-82.0); Potassium 4.9 mmol/L (3.5-5.0); Sodium 136 mmol/L (133-145)
--- NOTE | 2017-04-07 19:01 | ED ---
HPI Diabetic - HPI Summary HPI Summary: Patient presents to the ED with CC of mid epigastric to umbilical abdominal pain x 3 days worsening today. She awoke with 10/10 pain which is stabbing, cramping and intermittent. Denies PO intake today. She has taken all of her medications without missing doses. On arrival, she is requesting morphine, stating "4mg works for me." She has been seen in the ED for the last 3-4 days with similar complaints of abdominal pain and elevated sugars as well as OD on Tylenol for which she was treated for with charcoal. Last CT scan shows: IMPRESSION:1. HEPATOMEGALY WITH FATTY INFILTRATION OF LIVER. 2. FINDINGS CONSISTENT WITH CHRONIC PANCREATITIS. 3. FAT-CONTAINING UMBILICAL HERNIA. 4. NO OBSTRUCTION. She notes to not eating all day d/t the pain. She endorses uncontrolled glucose but is continuing her lantus at home as prescribed. She is currently on lantus 50 units in the Am and HS. Lumalog 10unites before meals. She denies missing any medications. Past surgical hx includes cholecystectomy. Denies fevers, sweats, chills. Obese, sedentary and uncontrolled diabetes at baseline. Denies urinary symptoms, but has been recently treated for a UTI. - History Of Current Complaint Chief Complaint: EDDiabeticProb Time Seen by Provider: 04/07/17 17:46 Hx Obtained From: Patient Hx Last Menstrual Period: 09/29/16 Onset/Duration: Sudden Onset Timing: Constant Severity Initially: Moderate Severity Currently: Moderate Character: Alert Aggravating: Non-compliant Alleviating: Nothing Associated Signs & Symptoms: Abdominal Pain, "Fruity Breath" Related History: DM II, Hx of DKA, Insulin Requiring, Oral Hypoglycemics - Risk Factors Cardiac Risk Factors: Negative - Allergies/Home Medications Allergies/Adverse Reactions: Allergies Allergy/AdvReac Type Severity Reaction Status Date / Time Ibuprofen Allergy Severe Hives Verified 04/06/17 23:36 Latex Allergy Severe Rash Verified 04/06/17 23:36 Sulfa Antibiotics Allergy Severe Hives Verified 04/06/17 23:36 Penicillins Allergy Intermediate Rash Verified 04/06/17 23:36 Nalbuphine Allergy Unknown Unknown Verified 04/06/17 23:36 Reaction Details Perphenazine Allergy Unknown Unknown Verified 04/06/17 23:36 Reaction Details Ciprofloxacin [From Cipro] AdvReac Severe Dizziness Verified 04/06/17 23:36 Tramadol AdvReac Severe Altered Verified 04/06/17 23:36 Mental Status [place] AdvReac Mild See Comment Verified 04/06/17 23:36 ENVIRONMENTAL Allergy Mild SINUS Uncoded 04/06/17 23:36 PMH/Surg Hx/FS Hx/Imm Hx Previously Healthy: No - see below Endocrine/Hematology History: Reports: Hx Diabetes, Hx Thyroid Disease, Other Endocrine/Hematological Disorders - Chronic pancreatitis Denies: Hx Anticoagulant Therapy Cardiovascular History: Reports: Hx Hypertension, Other Cardiovascular Problems/ Disorders - PER H&P- HX OF PSVT 04/2008 Denies: Hx Pacemaker/ICD Respiratory History: Reports: Hx Asthma, Hx Seasonal Allergies, Hx Sleep Apnea - uses c-pap but hasn't used it for 5 mos due to being broken Denies: Hx Chronic Bronchitis, Hx Chronic Obstructive Pulmonary Disease (COPD ), Hx Cystic Fibrosis, Hx Lung Cancer, Hx Pleural Effusion, Hx Pneumonia, Hx Pulmonary Edema, Hx Pulmonary Embolism, Other Respiratory Problems/Disorders GI History: Reports: Hx Gall Bladder Disease, Hx Gastroesophageal Reflux Disease , Hx Gastrointestinal Bleed, Hx Irritable Bowel, Other GI Disorders - pancreatitis/gastroenteritis Denies: Hx Ulcer History: Denies: Hx Dialysis, Hx Renal Disease Musculoskeletal History: Reports: Hx Arthritis, Hx Back Problems, Other Musculoskeletal History - GEN MUSCULOSKELETAL PAIN Denies: Hx Rheumatoid Arthritis, Hx Bursitis, Hx Congenital Bone Abnormalities, Hx Fibromyalgia, Hx Gout, Hx Orthopedic Injury, Hx Osteoporosis, Hx Scoliosis, Hx Tendonitis Sensory History: Reports: Hx Cataracts, Hx Contacts or Glasses, Hx Vision Problem Denies: Hx Eye Injury, Hx Eye Prosthesis, Hx Glaucoma, Hx Macular Degeneration, Hx Deafness, Hx Hearing Aid, Hx Hearing Problem, Other Sensory Impairments Opthamlomology History: Reports: Hx Cataracts, Hx Contacts or Glasses, Hx Vision Problem Denies: Hx Eye Injury, Hx Eye Prosthesis, Hx Glaucoma, Hx Macular Degeneration, Other Sensory Impairments Neurological History: Reports: Hx Developmental Delay - intellectual disability Denies: Hx Dementia, Hx Seizures, Other Neuro Impairments/Disorders Psychiatric History: Reports: Hx Anxiety, Hx Depression, Hx Post Traumatic Stress Disorder, Hx Inpatient Treatment, Hx Community Mental Health Tx, Hx Bipolar Disorder - pt manic, Hx Suicide Attempt - past med overdoses, Hx of Violent Episodes Against Others, Other Psychiatric Issues/Disorders - PSYCHOSIS NOS, HX OF PTSD, SCHIZOAFFECTIVE DISORDER, BORDERLINE PERSONALITY Denies: Hx Attention Deficit Hyperactivity Disorder, Hx Eating Disorder, Hx Panic Disorder, Hx Schizophrenia, Hx Substance Abuse - Surgical History Surgery Procedure, Year, and Place: 2011-CATARACT EXTRACTION. GALLBLADDER REMOVED . HIP SURGERY ACHILD Hx Anesthesia Reactions: No - Immunization History Date of Tetanus Vaccine: Unknown Date of Influenza Vaccine: May 2012 Infectious Disease History: No Infectious Disease History: Denies: Hx Clostridium Difficile, Hx Hepatitis, Hx Human Immunodeficiency Virus (HIV), Hx of Known/Suspected MRSA, Hx Shingles, Hx Tuberculosis, Hx Known/ Suspected VRE, Hx Known/Suspected VRSA, History Other Infectious Disease, Traveled Outside the [place] in Last 30 Days - Family History Known Family History: Positive: None - reviewed & noncontributory, Other - Anxiety and depression, [place] - father Negative: Cardiac Disease, Hypertension, Diabetes Family History: Depression and anxiety - Social History Occupation: Unemployed Lives: With Family Alcohol Use: None Hx Substance Use: Yes Substance Use Type: Reports: None, Prescribed Hx Tobacco Use: Yes Smoking Status (MU): Light Every Day Tobacco Smoker Type: Cigarettes Length of Time of Smoking/Using Tobacco: 2 year ago Have You Smoked in the Last Year: No Review of Systems Constitutional: Negative Negative: Fever, Chills, Fatigue, Skin Diaphoresis Eyes: Negative Negative: Photophobia, Blurred Vision ENT: Negative Negative: Palpitations, Chest Pain Negative: Shortness Of Breath, Cough Positive: Abdominal Pain - periumbilical Positive: no symptoms reported, see HPI, other - recently treated for UTI Positive: Arthralgia - baseline Skin: Negative Negative: Weakness Psychological: Normal All Other Systems Reviewed And Are Negative: Yes Physical Exam - Summary Physical Exam Summary: Patient appears to be obese, dry mucous membranes, lethargic and depressed without SI/HI. Triage Information Reviewed: Yes Vital Signs On Initial Exam: Initial Vitals Temp Pulse Resp BP Pulse Ox 98.6 F 73 16 138/76 96 04/07/17 17:08 04/07/17 17:08 04/07/17 17:08 04/07/17 17:08 04/07/17 17:08 Vital Signs Reviewed: Yes Appearance: Positive: Well-Nourished, Ill-Appearing, Obese Skin: Positive: Warm, Skin Color Reflects Adequate Perfusion Head/Face: Positive: Normal Head/Face Inspection Eyes: Positive: EOMI, JENNIFER, Conjunctiva Clear Neck: Positive: Supple, No Lymphadenopathy Respiratory/Lung Sounds: Positive: Clear to Auscultation, Breath Sounds Present Cardiovascular: Positive: RRR Abdomen Description: Positive: No Organomegaly, Soft, Other: - tenderness to the periumbilical area; no pain at mcburney's point Musculoskeletal: Positive: Normal, Strength/ROM Intact Neurological: Positive: Speech Normal Psychiatric: Positive: Normal - Kriss Coma Scale Coma Scale Total: 15 Diagnostics - Vital Signs Vital Signs Temp Pulse Resp BP Pulse Ox 04/07/17 17:08 98.6 F 73 16 138/76 96 - Laboratory Lab Results: Lab Results 04/07/17 04/07/17 04/07/17 Range/Units 18:24 18:24 18:24 WBC (3.5-10.8) 10^3/ul RBC (4.0-5.4) 10^6/ul Hgb (12.0-16.0) g/dl Hct (35-47) % MCV (80-97) fL MCH (27-31) pg MCHC (31-36) g/dl RDW (10.5-15) % Plt Count (150-450) 10^3/ul MPV (7.4-10.4) um3 Neut % (Auto) (38-83) % Lymph % (Auto) (25-47) % [place] % (Auto) (1-9) % Eos % (Auto) (0-6) % Baso % (Auto) (0-2) % Absolute Neuts (auto) (1.5-7.7) 10^3/ul Absolute Lymphs (auto) (1.0-4.8) 10^3/ul Absolute Monos (auto) (0-0.8) 10^3/ul Absolute Eos (auto) (0-0.6) 10^3/ul Absolute Basos (auto) (0-0.2) 10^3/ul Absolute Nucleated RBC 10^3/ul Nucleated RBC % INR (Anticoag Therapy) 0.86 L (0.89-1.11) APTT 26.7 (26.0-36.3) seconds Sodium 136 (133-145) mmol/L Potassium 4.9 (3.5-5.0) mmol/L Chloride 103 (101-111) mmol/L Carbon Dioxide 28 (22-32) mmol/L Anion Gap 5 (2-11) mmol/L BUN 11 (6-24) mg/dL Creatinine 0.84 (0.51-0.95) mg/dL Est GFR ( Amer) 92.3 (>60) Est GFR (Non-Af Amer) 71.8 (>60) BUN/Creatinine Ratio 13.1 (8-20) Glucose 437 H (70-100) mg/dL Lactic Acid (0.5-2.0) mmol/L Calcium 8.7 (8.6-10.3) mg/dL Total Bilirubin 0.30 (0.2-1.0) mg/dL AST 30 (13-39) U/L ALT 31 (7-52) U/L Alkaline Phosphatase 172 H (34-104) U/L C-Reactive Protein 3.13 (< 5.00) mg/L B-Natriuretic Peptide 33 ( - 100) pg/mL Total Protein 7.0 (6.4-8.9) g/dL Albumin 3.6 (3.2-5.2) g/dL Globulin 3.4 (2-4) g/dL Albumin/Globulin Ratio 1.1 (1-3) Lipase < 10 L (11.0-82.0) U/L 04/07/17 04/07/17 Range/Units 18:24 18:24 WBC 10.1 (3.5-10.8) 10^3/ul RBC 4.38 (4.0-5.4) 10^6/ul Hgb 11.6 L (12.0-16.0) g/dl Hct 36 (35-47) % MCV 83 (80-97) fL MCH 27 (27-31) pg MCHC 32 (31-36) g/dl RDW 17 H (10.5-15) % Plt Count 214 (150-450) 10^3/ul MPV 10 (7.4-10.4) um3 Neut % (Auto) 65.4 (38-83) % Lymph % (Auto) 26.9 (25-47) % [place] % (Auto) 4.6 (1-9) % Eos % (Auto) 2.2 (0-6) % Baso % (Auto) 0.9 (0-2) % Absolute Neuts (auto) 6.6 (1.5-7.7) 10^3/ul Absolute Lymphs (auto) 2.7 (1.0-4.8) 10^3/ul Absolute Monos (auto) 0.5 (0-0.8) 10^3/ul Absolute Eos (auto) 0.2 (0-0.6) 10^3/ul Absolute Basos (auto) 0.1 (0-0.2) 10^3/ul Absolute Nucleated RBC 0 10^3/ul Nucleated RBC % 0 INR (Anticoag Therapy) (0.89-1.11) APTT (26.0-36.3) seconds Sodium (133-145) mmol/L Potassium (3.5-5.0) mmol/L Chloride (101-111) mmol/L Carbon Dioxide (22-32) mmol/L Anion Gap (2-11) mmol/L BUN (6-24) mg/dL Creatinine (0.51-0.95) mg/dL Est GFR ( Amer) (>60) Est GFR (Non-Af Amer) (>60) BUN/Creatinine Ratio (8-20) Glucose (70-100) mg/dL Lactic Acid 1.8 (0.5-2.0) mmol/L Calcium (8.6-10.3) mg/dL Total Bilirubin (0.2-1.0) mg/dL AST (13-39) U/L ALT (7-52) U/L Alkaline Phosphatase (34-104) U/L C-Reactive Protein (< 5.00) mg/L B-Natriuretic Peptide ( - 100) pg/mL Total Protein (6.4-8.9) g/dL Albumin (3.2-5.2) g/dL Globulin (2-4) g/dL Albumin/Globulin Ratio (1-3) Lipase (11.0-82.0) U/L Result Diagrams: 04/07/17 18:24 04/07/17 18:24 Lab Statement: Any lab studies that have been ordered have been reviewed, and results considered in the medical decision making process. Diabetic Course/Dx - Course Course Of Treatment: Patient given 2L NS, 11 unites regular insulin. Patient is feeling improved after morphine. Continues to have dry mucous membranes despite PO oral intake as well. Fruity breath per patient. She has follow up with PCP tomorrow at 1:40pm. She is instructed to take Lantus at bedtime (50 units) as prescribed and to follow up with PCP tomorrow for a possible change in meds d/t 400-500 glucose daily despite her regimine. She continues to state she has not missed any medication doses. Glucose is 437 on arrival prior. Dropped to 139 after 3 hours, 2 L and 11 units insulin. Patient is OK for discharge and feels better after morphine. Will not rx meds for home as she has medications from previous visits. She is non-compliant with medications and states she has not picked up her Macrobid from last visit after dx with UTI. 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 Medications were reveiwed with patient. Encouarged to follow up with PCP or return to ED for worsening symptoms. Return precautions given. Patient understands and agrees with plan. Ok for discharge. - Diagnoses Differential Dx: Diabetic Ketoacidosis, Hyperglycemia, Hyperosmolar State Provider Diagnoses: Hyperglycemia due to type 2 diabetes mellitus Discharge - Discharge Plan Condition: Stable Disposition: HOME Prescriptions: Nitrofurantoin Monohyd Macro [Macrobid] 100 mg PO BID #10 cap Patient Education Materials: Diabetic Hyperglycemia (ED) Referrals: Gabo Sullivan MD [Primary Care Provider] - 1 Day (Patient continues to return to ED with abd pain, hyperglycemia, dry mucous membranes, fatigue and fruity breath (per patient) x several days despite at home medications. Possibly non- compliant. Told to follow up this week. ) Additional Instructions: Follow up with Dr. 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 Drink plenty of fluids Do not drink sugary drinks or eat many sugary foods including breads and carbs
[2017-04-07 19:09] LABS: Urine Bacteria 1+ (Absent); Urine Bilirubin Negative (Negative); Urine Glucose 3+(>=500 mg/dL) (Negative); Urine Nitrite Negative (Negative)
[2017-04-07] MEDS ORDERED: NS 0.9% 1000 ML* 1,000 ML IV ONE (19:32)
[2017-04-07 21:47] VITALS: BP 122/76
== END 2017-04-07 21:48 | disposition home or self-care (01) ==
LOC: ED 16:44
DX: E11.65 Type 2 diabetes mellitus with hyperglycemia (principal); R10.13 Epigastric pain; F17.210 Nicotine dependence, cigarettes, uncomplicated
CPT/HCPCS: 36415; 80053; 81003; 83605; 83690; 83880; 85025; 85610; 85730; 86140; 96361; 96374; 99282; J2270

== ENCOUNTER 2017-05-02 12:40 | Emergency (ER) | payer MEDICARE, MEDICAID ==
[2017-05-02] MEDS ORDERED: Sucralfate TAB* 1 GM PO ONE (16:05)
[2017-05-02] MEDS ORDERED: Pantoprazole IV* 40 MG IV ONE (16:05)
[2017-05-02 16:38] LABS: Hematocrit 37 % (35-47); Hemoglobin 12.1 g/dl (12.0-16.0); Mean Corpuscular HGB Conc 32 g/dl (31-36); Mean Corpuscular Hemoglobin 27 pg (27-31); Mean Corpuscular Volume 83 fL (80-97); Red Blood Count 4.53 10^6/ul (4.0-5.4); Red Cell Distribution Width 18 % (10.5-15)
[2017-05-02 16:51] LABS: Comments Flag Yes
[2017-05-02 16:51] LABS: Urine Bacteria 1+ (Absent); Urine Bilirubin Negative (Negative); Urine Glucose Negative (Negative); Urine Nitrite Negative (Negative)
[2017-05-02 16:52] LABS: ALT 27 U/L (7-52); AST 43 U/L (13-39); Add Diff/Slide Review? Manual Diff Added; Albumin 3.5 g/dL (3.2-5.2); Alkaline Phosphatase 150 U/L (34-104); Anion Gap 6 mmol/L (2-11); BUN/Creatinine Ratio 21.8 (8-20); Blood Urea Nitrogen 17 mg/dL (6-24); CO2 Carbon Dioxide 26 mmol/L (22-32); Calcium 9.1 mg/dL (8.6-10.3); Chloride 106 mmol/L (101-111); EGFR African American 100.5 (>60); EGFR Non-African American 78.2 (>60); Globulin 3.6 g/dL (2-4); Glucose 145 mg/dL (70-100); Lipase < 10 U/L (11.0-82.0); Potassium 4.4 mmol/L (3.5-5.0); Sodium 138 mmol/L (133-145); Total Protein 7.1 g/dL (6.4-8.9)
[2017-05-02 18:03] LABS: Eosinophils % 4 % (0-6); Immature Granulocytes 3 % (0-9); Neutrophil % 52 % (38-83)
[2017-05-02 18:04] LABS: RBC Morphology Normal (Normal)
[2017-05-02] MEDS ORDERED: Morphine INJ* 4 MG/ML 1 ML CARPUJECT IV ONE (18:53)
[2017-05-02 19:36] VITALS: BP 153/92
--- NOTE | 2017-05-02 20:40 | RAD ---
CLINICAL HISTORY: Epigastric pain COMPARISON: Most recent comparison CT dated March 29, 2017 TECHNIQUE: Noncontrast CT examination of the abdomen and pelvis from the lung bases through the initial tuberosities. FINDINGS: VISUALIZED LUNG BASES: The visualized lung bases are grossly clear. There is no pleural effusion. ABDOMEN AND PELVIS: Evaluation of the solid organs and vasculature is limited without intravenous contrast. Similar to the prior CT examination the liver is mostly hypoattenuating. There are no focal suspicious lesions. In the cephalocaudal projection the liver measures up to 21.6 cm unchanged significantly from the prior CT examination. Again seen is coarse calcification throughout most of the pancreas. The spleen and adrenal glands are grossly normal in appearance. The gallbladder is surgically absent. The kidneys are normal in appearance without focal mass, calcification or signs of hydronephrosis. The small and large bowel are not distended.The patient's normal appendix is identified in the right lower quadrant measuring just under 6 mm in diameter. There is no gross retroperitoneal or mesenteric lymphadenopathy. The pelvic viscera is normal in appearance. The abdominal aorta and iliac arteries are normal in course and diameter. Degenerative changes include multilevel loss of intervertebral disc height involving the lower thoracic and lumbar spine.There are no sinister bone lesions. IMPRESSION: 1. Similar to the prior CT examination there is mild hepatomegaly with likely hepatic steatosis or other chronic infiltrative disease of the liver. 2. Coarse calcification throughout much of the pancreas is consistent with chronic pancreatitis. 3. There are additional chronic, degenerative and postsurgical changes described in body the report unlikely to be related to the patient's current presentation.
--- NOTE | 2017-05-02 21:45 | ED ---
Zhanna Rosales Nilda, scribed for Neo Kauffman MD on 05/02/17 at 1513 . Abdominal Pain/Female - HPI Summary HPI Summary: This patient is a 51 year old F presenting to [facility] accompanied by with a chief complaint of constant diffuse abdominal pain that radiates to her back since today. The patient rates the pain 8/10 in severity. Symptoms were aggravated s/p bowel movement. Symptoms alleviated by nothing. Patient reports vomiting, diarrhea, abdominal distention, and nausea. PMHx includes DM2 and pancreatitis. - History of Current Complaint Chief Complaint: EDAbdPain Stated Complaint: VOMITTING/ABD PAIN Time Seen by Provider: 05/02/17 15:03 Hx Obtained From: Patient Hx Last Menstrual Period: 09/29/16 Onset/Duration: Sudden Onset, Lasting Hours, Still Present Timing: Constant Severity Currently: Severe Pain Intensity: 8 Pain Scale Used: 0-10 Numeric Location: Diffuse Radiates: Yes Radiates to: Back Aggravating Factor(s): Other: - s/p bowel movement Alleviating Factor(s): Nothing Associated Signs and Symptoms: Positive: Other: - vomiting, diarrhea, abdominal distention, and nausea Allergies/Adverse Reactions: Allergies Allergy/AdvReac Type Severity Reaction Status Date / Time Ibuprofen Allergy Severe Hives Verified 05/02/17 12:47 Latex Allergy Severe Rash Verified 05/02/17 12:47 Sulfa Antibiotics Allergy Severe Hives Verified 05/02/17 12:47 Penicillins Allergy Intermediate Rash Verified 05/02/17 12:47 Nalbuphine Allergy Unknown Unknown Verified 05/02/17 12:47 Reaction Details Perphenazine Allergy Unknown Unknown Verified 05/02/17 12:47 Reaction Details Ciprofloxacin [From Cipro] AdvReac Severe Dizziness Verified 05/02/17 12:47 Tramadol AdvReac Severe Altered Verified 05/02/17 12:47 Mental Status [place] AdvReac Mild See Comment Verified 05/02/17 12:47 ENVIRONMENTAL Allergy Mild SINUS Uncoded 05/02/17 12:47 PMH/Surg Hx/FS Hx/Imm Hx Endocrine/Hematology History: Reports: Hx Diabetes, Hx Thyroid Disease, Other Endocrine/Hematological Disorders - Chronic pancreatitis Denies: Hx Anticoagulant Therapy Cardiovascular History: Reports: Hx Hypertension, Other Cardiovascular Problems/ Disorders - PER H&P- HX OF PSVT 04/2008 Denies: Hx Pacemaker/ICD Respiratory History: Reports: Hx Asthma, Hx Seasonal Allergies, Hx Sleep Apnea - uses c-pap but hasn't used it for 5 mos due to being broken Denies: Hx Chronic Bronchitis, Hx Chronic Obstructive Pulmonary Disease (COPD ), Hx Cystic Fibrosis, Hx Lung Cancer, Hx Pleural Effusion, Hx Pneumonia, Hx Pulmonary Edema, Hx Pulmonary Embolism, Other Respiratory Problems/Disorders GI History: Reports: Hx Gall Bladder Disease, Hx Gastroesophageal Reflux Disease , Hx Gastrointestinal Bleed, Hx Irritable Bowel, Other GI Disorders - pancreatitis/gastroenteritis Denies: Hx Ulcer History: Denies: Hx Dialysis, Hx Renal Disease Musculoskeletal History: Reports: Hx Arthritis, Hx Back Problems, Other Musculoskeletal History - GEN MUSCULOSKELETAL PAIN Denies: Hx Rheumatoid Arthritis, Hx Bursitis, Hx Congenital Bone Abnormalities, Hx Fibromyalgia, Hx Gout, Hx Orthopedic Injury, Hx Osteoporosis, Hx Scoliosis, Hx Tendonitis Sensory History: Reports: Hx Cataracts, Hx Contacts or Glasses, Hx Vision Problem Denies: Hx Eye Injury, Hx Eye Prosthesis, Hx Glaucoma, Hx Macular Degeneration, Hx Deafness, Hx Hearing Aid, Hx Hearing Problem, Other Sensory Impairments Opthamlomology History: Reports: Hx Cataracts, Hx Contacts or Glasses, Hx Vision Problem Denies: Hx Eye Injury, Hx Eye Prosthesis, Hx Glaucoma, Hx Macular Degeneration, Other Sensory Impairments Neurological History: Reports: Hx Developmental Delay - intellectual disability Denies: Hx Dementia, Hx Seizures, Other Neuro Impairments/Disorders Psychiatric History: Reports: Hx Anxiety, Hx Depression, Hx Post Traumatic Stress Disorder, Hx Inpatient Treatment, Hx Community Mental Health Tx, Hx Bipolar Disorder - pt manic, Hx Suicide Attempt - past med overdoses, Hx of Violent Episodes Against Others, Other Psychiatric Issues/Disorders - PSYCHOSIS NOS, HX OF PTSD, SCHIZOAFFECTIVE DISORDER, BORDERLINE PERSONALITY Denies: Hx Attention Deficit Hyperactivity Disorder, Hx Eating Disorder, Hx Panic Disorder, Hx Schizophrenia, Hx Substance Abuse - Surgical History Surgery Procedure, Year, and Place: 2011-CATARACT EXTRACTION. GALLBLADDER REMOVED . HIP SURGERY ACHILD Hx Anesthesia Reactions: No - Immunization History Date of Tetanus Vaccine: Unknown Date of Influenza Vaccine: May 2012 Infectious Disease History: No Infectious Disease History: Denies: Hx Clostridium Difficile, Hx Hepatitis, Hx Human Immunodeficiency Virus (HIV), Hx of Known/Suspected MRSA, Hx Shingles, Hx Tuberculosis, Hx Known/ Suspected VRE, Hx Known/Suspected VRSA, History Other Infectious Disease, Traveled Outside the [place] in Last 30 Days - Family History Known Family History: Positive: None - reviewed & noncontributory, Other - Anxiety and depression, [place] - father Negative: Cardiac Disease, Hypertension, Diabetes Family History: Depression and anxiety - Social History Alcohol Use: None Hx Substance Use: Yes Substance Use Type: Reports: None, Prescribed Hx Tobacco Use: Yes Smoking Status (MU): Light Every Day Tobacco Smoker Type: Cigarettes Length of Time of Smoking/Using Tobacco: 2 year ago Have You Smoked in the Last Year: No Review of Systems Negative: Shortness Of Breath Positive: Abdominal Pain, Vomiting, Diarrhea, Nausea, Other - abdominal distention All Other Systems Reviewed And Are Negative: Yes Physical Exam Triage Information Reviewed: Yes Vital Signs On Initial Exam: Initial Vitals Temp Pulse Resp BP Pulse Ox 98.3 F 94 18 137/79 99 05/02/17 12:47 05/02/17 12:47 05/02/17 12:47 05/02/17 12:47 05/02/17 12:47 Vital Signs Reviewed: Yes Appearance: Positive: Well-Appearing, No Pain Distress, Obese Skin: Positive: Warm, Skin Color Reflects Adequate Perfusion, Dry Head/Face: Positive: Normal Head/Face Inspection Eyes: Positive: Normal ENT: Positive: Normal ENT inspection Neck: Positive: Supple, Nontender Respiratory/Lung Sounds: Positive: Clear to Auscultation, Breath Sounds Present Cardiovascular: Positive: RRR Abdomen Description: Positive: Nontender, Soft Bowel Sounds: Positive: Present Musculoskeletal: Positive: Normal Neurological: Positive: Normal Psychiatric: Positive: Normal, Affect/Mood Appropriate - [place] Coma Scale Coma Scale Total: 15 Diagnostics - Vital Signs Vital Signs Temp Pulse Resp BP Pulse Ox 05/02/17 12:47 98.3 F 94 18 137/79 99 - Laboratory Lab Results: Lab Results 05/02/17 05/02/17 05/02/17 Range/Units 16:05 16:26 16:26 WBC 14.0 H (3.5-10.8) 10^3/ul RBC 4.53 (4.0-5.4) 10^6/ul Hgb 12.1 (12.0-16.0) g/dl Hct 37 (35-47) % MCV 83 (80-97) fL MCH 27 (27-31) pg MCHC 32 (31-36) g/dl RDW 18 H (10.5-15) % Plt Count (150-450) 10^3/ul MPV Not Reportable Immature Gran % (Auto) 3 (0-9) % Absolute Neuts (auto) 7.7 (1.5-7.7) 10^3/ul Absolute Lymphs (auto) 5.1 H (1.0-4.8) 10^3/ul Absolute Monos (auto) 0.7 (0-0.8) 10^3/ul Absolute Eos (auto) 0.6 (0-0.6) 10^3/ul Absolute Basos (auto) 0 (0-0.2) 10^3/ul Absolute Nucleated RBC 0 10^3/ul Neutrophils % 52 (38-83) % Band Neutrophils % 3 (0-8) % Lymphocytes % 36 (25-47) % Monocytes % 5 (0-13) % Eosinophils % 4 (0-6) % Normal RBC Morphology Normal (Normal) Sodium 138 (133-145) mmol/L Potassium 4.4 (3.5-5.0) mmol/L Chloride 106 (101-111) mmol/L Carbon Dioxide 26 (22-32) mmol/L Anion Gap 6 (2-11) mmol/L BUN 17 (6-24) mg/dL Creatinine 0.78 (0.51-0.95) mg/dL Est GFR ( Amer) 100.5 (>60) Est GFR (Non-Af Amer) 78.2 (>60) BUN/Creatinine Ratio 21.8 H (8-20) Glucose 145 H (70-100) mg/dL Lactic Acid (0.5-2.0) mmol/L Calcium 9.1 (8.6-10.3) mg/dL Total Bilirubin 0.20 (0.2-1.0) mg/dL AST 43 H (13-39) U/L ALT 27 (7-52) U/L Alkaline Phosphatase 150 H (34-104) U/L C-Reactive Protein 4.00 (< 5.00) mg/L Total Protein 7.1 (6.4-8.9) g/dL Albumin 3.5 (3.2-5.2) g/dL Globulin 3.6 (2-4) g/dL Albumin/Globulin Ratio 1.0 (1-3) Lipase < 10 L (11.0-82.0) U/L Urine Color Yellow Urine Appearance Cloudy Urine pH 6.0 (5-9) Ur Specific [place] 1.013 (1.010-1.030) Urine Protein Negative (Negative) Urine Ketones Negative (Negative) Urine Blood Negative (Negative) Urine Nitrate Negative (Negative) Urine Bilirubin Negative (Negative) Urine Urobilinogen Negative (Negative) Ur Leukocyte Esterase Trace H (Negative) Urine WBC (Auto) Trace(0-5/hpf) (Absent) Urine RBC (Auto) Absent (Absent) Ur Squamous Epith Cells Present H (Absent) Urine Bacteria 1+ H (Absent) Urine Glucose Negative (Negative) 05/02/17 Range/Units 16:26 WBC (3.5-10.8) 10^3/ul RBC (4.0-5.4) 10^6/ul Hgb (12.0-16.0) g/dl Hct (35-47) % MCV (80-97) fL MCH (27-31) pg MCHC (31-36) g/dl RDW (10.5-15) % Plt Count (150-450) 10^3/ul MPV Immature Gran % (Auto) (0-9) % Absolute Neuts (auto) (1.5-7.7) 10^3/ul Absolute Lymphs (auto) (1.0-4.8) 10^3/ul Absolute Monos (auto) (0-0.8) 10^3/ul Absolute Eos (auto) (0-0.6) 10^3/ul Absolute Basos (auto) (0-0.2) 10^3/ul Absolute Nucleated RBC 10^3/ul Neutrophils % (38-83) % Band Neutrophils % (0-8) % Lymphocytes % (25-47) % Monocytes % (0-13) % Eosinophils % (0-6) % Normal RBC Morphology (Normal) Sodium (133-145) mmol/L Potassium (3.5-5.0) mmol/L Chloride (101-111) mmol/L Carbon Dioxide (22-32) mmol/L Anion Gap (2-11) mmol/L BUN (6-24) mg/dL Creatinine (0.51-0.95) mg/dL Est GFR ( Amer) (>60) Est GFR (Non-Af Amer) (>60) BUN/Creatinine Ratio (8-20) Glucose (70-100) mg/dL Lactic Acid 1.2 (0.5-2.0) mmol/L Calcium (8.6-10.3) mg/dL Total Bilirubin (0.2-1.0) mg/dL AST (13-39) U/L ALT (7-52) U/L Alkaline Phosphatase (34-104) U/L C-Reactive Protein (< 5.00) mg/L Total Protein (6.4-8.9) g/dL Albumin (3.2-5.2) g/dL Globulin (2-4) g/dL Albumin/Globulin Ratio (1-3) Lipase (11.0-82.0) U/L Urine Color Urine Appearance Urine pH (5-9) Ur Specific [place] (1.010-1.030) Urine Protein (Negative) Urine Ketones (Negative) Urine Blood (Negative) Urine Nitrate (Negative) Urine Bilirubin (Negative) Urine Urobilinogen (Negative) Ur Leukocyte Esterase (Negative) Urine WBC (Auto) (Absent) Urine RBC (Auto) (Absent) Ur Squamous Epith Cells (Absent) Urine Bacteria (Absent) Urine Glucose (Negative) Result Diagrams: 05/02/17 16:26 05/02/17 16:26 Lab Statement: Any lab studies that have been ordered have been reviewed, and results considered in the medical decision making process. - CT Abdomen/Pelvis CT Interpretation Completed By: Radiologist - Similar to the prior CT examination there is mild hepatomegaly with likely heptic steatosis or other chronic infiltrative disease of the liver. Coarse calcification throughout much of the pancreas is consistent with chronic pancreatitis. There are additional chronic, degenerative and postsurgical changes described in body the report unlikely to be related to the patient's current presentation. ED physician reviewed report and agrees. Abdominal Pain Fem Course/Dx - Course Course Of Treatment: Ms. Schulz presented with a sudden worsening of her abdominal pain and a leukocytosis. A CT was repeated as she did not improve with meds. It was negative and she did in fact improve eventually and was D/C' d for F/U. - Diagnoses Provider Diagnoses: Abdominal pain Discharge - Discharge Plan Condition: Stable Disposition: HOME Patient Education Materials: Abdominal Pain (ED) Referrals: Gabo Sullivan MD [Primary Care Provider] - (Follow up with primary care doctor this week.) Additional Instructions: RETURN TO THE EMERGENCY DEPARTMENT FOR CHANGING OR WORSENING SYMPTOMS. The documentation as recorded by the Zhanna roth Nilda accurately reflects the service I personally performed and the decisions made by me, Neo Kauffman MD.
== END 2017-05-02 21:09 | disposition home or self-care (01) ==
LOC: ED 12:40
DX: R10.13 Epigastric pain (principal); I10 Essential (primary) hypertension; E11.9 Type 2 diabetes mellitus without complications; K86.1 Other chronic pancreatitis; F17.210 Nicotine dependence, cigarettes, uncomplicated
CPT/HCPCS: 36415; 74176; 80053; 81003; 81015; 83605; 83690; 85025; 86140; 87086; A9270-GY; J2270

== ENCOUNTER 2017-05-09 21:06 | Emergency (ER) | payer MEDICARE, MEDICAID ==
[2017-05-09] MEDS ORDERED: NS 0.9% 1000 ML* 1,000 ML IV ONE (22:42)
[2017-05-09 23:06] LABS: Hematocrit 35 % (35-47); Hemoglobin 11.3 g/dl (12.0-16.0); Mean Corpuscular HGB Conc 33 g/dl (31-36); Mean Corpuscular Hemoglobin 26 pg (27-31); Mean Corpuscular Volume 80 fL (80-97); Mean Platelet Volume 9 um3 (7.4-10.4); Red Blood Count 4.29 10^6/ul (4.0-5.4); Red Cell Distribution Width 17 % (10.5-15); White Blood Count 10.3 10^3/ul (3.5-10.8)
[2017-05-09 23:24] LABS: Albumin 3.4 g/dL (3.2-5.2); BUN/Creatinine Ratio 16.5 (8-20); C Reactive Protein 10.65 mg/L (< 5.00); Calcium 9.1 mg/dL (8.6-10.3); EGFR African American 99.1 (>60); Globulin 3.2 g/dL (2-4); Potassium 4.5 mmol/L (3.5-5.0); Total Bilirubin 0.2 mg/dL (0.2-1.0); Total Protein 6.6 g/dL (6.4-8.9)
[2017-05-09] MEDS ORDERED: Acetaminophen TAB* 325 MG PO ONE (23:43)
[2017-05-10 02:32] LABS: Urine Bilirubin Negative (Negative); Urine Glucose 3+(>=500 mg/dL) (Negative); Urine Nitrite Negative (Negative)
[2017-05-10] MEDS ORDERED: Iodixanol* (CONTRAST) 320 MG/ML 100 ML SDV IV ONE (02:43)
[2017-05-10 06:02] VITALS: BP 135/68
--- NOTE | 2017-05-10 09:17 | RAD ---
Indication: Diffuse abdominal pain. CT of the abdomen and pelvis was performed without oral or IV contrast administration. Coronal and sagittal reconstructed images were obtained. The lung bases demonstrate no pleural fluid, nodules or masses. Heart is of normal size without evidence of pericardial effusion. The liver is normal in size. It is diffusely decreased in density consistent with hepatic steatosis. Heart demonstrates no pericardial effusion. The spleen is normal in size. The pancreas demonstrates multiple calcifications in the pancreas consistent with chronic pancreatitis. The patient is status post cholecystectomy. The adrenal glands demonstrate a left low density adrenal mass measuring 2.2 cm in greatest dimension. This has been present as far back as May 15, 2009 and does not appear to be significantly changed. This likely represents an adrenal adenoma. No retroperitoneal lymphadenopathy is noted. Aorta and inferior vena cava are unremarkable. No dilated loops of bowel are noted. The colon is filled with stool. Anterior abdominal wall hernia containing omentum is noted. Urinary bladder is otherwise unremarkable. There is suggestion of a left inguinal hernia containing omentum. IMPRESSION: 1. LEFT ADRENAL MASS WHICH IS LOW DENSITY LIKELY REPRESENTS ADRENAL ADENOMA. THIS IS STABLE SINCE 2008. 2. LOW DENSITY LIVER CONSISTENT WITH HEPATIC STEATOSIS. 3. COARSE CALCIFICATIONS THROUGHOUT THE PANCREAS SUGGESTIVE OF CHRONIC PANCREATITIS. 4. SMALL UMBILICAL HERNIA CONTAINING OMENTAL FAT. 5. SUGGESTION OF A LEFT INGUINAL HERNIA CONTAINING OMENTUM.
--- NOTE | 2017-05-11 12:35 | ED ---
Junior Rosales Benjamin, scribed for Darius Velazquez MD on 05/09/17 at 2341 . Abdominal Pain/Female - HPI Summary HPI Summary: 51yo female c/o epigastric pain that wraps sround to her back in a band. Also pain in LLQ pain. Pt report diarrhea as well but no blood was noted. Decreased appetite. No fever noted. No vomiting, tolerating food. Pt had hx of pancreatitis several years ago, but again a few weeks ago. Pt has gall bladder taken out. - History of Current Complaint Chief Complaint: EDAbdPain Stated Complaint: LT SIDE PAIN Time Seen by Provider: 05/09/17 21:39 Hx Obtained From: Patient Hx Last Menstrual Period: 09/29/16 Onset/Duration: Gradual Onset, Lasting Weeks, Still Present Timing: Constant Severity Initially: Moderate Severity Currently: Moderate Pain Intensity: 8 Pain Scale Used: 0-10 Numeric Location: Epigastric Radiates: Yes Radiates to: Back, LLQ Aggravating Factor(s): Nothing Alleviating Factor(s): Nothing Associated Signs and Symptoms: Positive: Decreased Appetite, Diarrhea. Negative : Fever, Nausea, Vomiting Allergies/Adverse Reactions: Allergies Allergy/AdvReac Type Severity Reaction Status Date / Time Ibuprofen Allergy Severe Hives Verified 05/02/17 12:47 Latex Allergy Severe Rash Verified 05/02/17 12:47 Sulfa Antibiotics Allergy Severe Hives Verified 05/02/17 12:47 Penicillins Allergy Intermediate Rash Verified 05/02/17 12:47 Nalbuphine Allergy Unknown Unknown Verified 05/02/17 12:47 Reaction Details Perphenazine Allergy Unknown Unknown Verified 05/02/17 12:47 Reaction Details Ciprofloxacin [From Cipro] AdvReac Severe Dizziness Verified 05/02/17 12:47 Tramadol AdvReac Severe Altered Verified 05/02/17 12:47 Mental Status [employer] AdvReac Mild See Comment Verified 05/02/17 12:47 ENVIRONMENTAL Allergy Mild SINUS Uncoded 05/02/17 12:47 PMH/Surg Hx/FS Hx/Imm Hx Endocrine/Hematology History: Reports: Hx Diabetes, Hx Thyroid Disease, Other Endocrine/Hematological Disorders - Chronic pancreatitis Denies: Hx Anticoagulant Therapy Cardiovascular History: Reports: Hx Hypertension, Other Cardiovascular Problems/ Disorders - PER H&P- HX OF PSVT 04/2008 Denies: Hx Pacemaker/ICD Respiratory History: Reports: Hx Asthma, Hx Seasonal Allergies, Hx Sleep Apnea - uses c-pap but hasn't used it for 5 mos due to being broken Denies: Hx Chronic Bronchitis, Hx Chronic Obstructive Pulmonary Disease (COPD ), Hx Cystic Fibrosis, Hx Lung Cancer, Hx Pleural Effusion, Hx Pneumonia, Hx Pulmonary Edema, Hx Pulmonary Embolism, Other Respiratory Problems/Disorders GI History: Reports: Hx Gall Bladder Disease, Hx Gastroesophageal Reflux Disease , Hx Gastrointestinal Bleed, Hx Irritable Bowel, Other GI Disorders - pancreatitis/gastroenteritis Denies: Hx Ulcer History: Denies: Hx Dialysis, Hx Renal Disease Musculoskeletal History: Reports: Hx Arthritis, Hx Back Problems, Other Musculoskeletal History - GEN MUSCULOSKELETAL PAIN Denies: Hx Rheumatoid Arthritis, Hx Bursitis, Hx Congenital Bone Abnormalities, Hx Fibromyalgia, Hx Gout, Hx Orthopedic Injury, Hx Osteoporosis, Hx Scoliosis, Hx Tendonitis Sensory History: Reports: Hx Cataracts, Hx Contacts or Glasses, Hx Vision Problem Denies: Hx Eye Injury, Hx Eye Prosthesis, Hx Glaucoma, Hx Macular Degeneration, Hx Deafness, Hx Hearing Aid, Hx Hearing Problem, Other Sensory Impairments Opthamlomology History: Reports: Hx Cataracts, Hx Contacts or Glasses, Hx Vision Problem Denies: Hx Eye Injury, Hx Eye Prosthesis, Hx Glaucoma, Hx Macular Degeneration, Other Sensory Impairments Neurological History: Reports: Hx Developmental Delay - intellectual disability Denies: Hx Dementia, Hx Seizures, Other Neuro Impairments/Disorders Psychiatric History: Reports: Hx Anxiety, Hx Depression, Hx Post Traumatic Stress Disorder, Hx Inpatient Treatment, Hx Community Mental Health Tx, Hx Bipolar Disorder - pt manic, Hx Suicide Attempt - past med overdoses, Hx of Violent Episodes Against Others, Other Psychiatric Issues/Disorders - PSYCHOSIS NOS, HX OF PTSD, SCHIZOAFFECTIVE DISORDER, BORDERLINE PERSONALITY Denies: Hx Attention Deficit Hyperactivity Disorder, Hx Eating Disorder, Hx Panic Disorder, Hx Schizophrenia, Hx Substance Abuse - Surgical History Surgery Procedure, Year, and Place: 2011-CATARACT EXTRACTION. GALLBLADDER REMOVED . HIP SURGERY ACHILD Hx Anesthesia Reactions: No - Immunization History Date of Tetanus Vaccine: Unknown Date of Influenza Vaccine: May 2012 Infectious Disease History: No Infectious Disease History: Denies: Hx Clostridium Difficile, Hx Hepatitis, Hx Human Immunodeficiency Virus (HIV), Hx of Known/Suspected MRSA, Hx Shingles, Hx Tuberculosis, Hx Known/ Suspected VRE, Hx Known/Suspected VRSA, History Other Infectious Disease, Traveled Outside the [place] in Last 30 Days - Family History Known Family History: Positive: Other - Anxiety and depression, [place] - father Negative: Cardiac Disease, Hypertension, Diabetes Family History: Depression and anxiety - Social History Occupation: Disabled Alcohol Use: None Hx Substance Use: Yes Substance Use Type: Reports: None, Prescribed Hx Tobacco Use: Yes Smoking Status (MU): Light Every Day Tobacco Smoker Type: Cigarettes Length of Time of Smoking/Using Tobacco: 2 year ago Have You Smoked in the Last Year: No Review of Systems Constitutional: Negative Eyes: Negative ENT: Negative Cardiovascular: Negative Respiratory: Negative Positive: Abdominal Pain, Diarrhea Genitourinary: Negative Musculoskeletal: Negative Skin: Negative Neurological: Negative Psychological: Normal All Other Systems Reviewed And Are Negative: Yes Physical Exam - Summary Physical Exam Summary: Appearance: Well-Appearing, no pain distress, well nourished Skin: warm, skin color reflects adequate perfusion, dry, no acute skin lesions Head Exam: Normal Eye Exam: EOMI, PERRL, conjunctiva clear ENT: pharynx nml, TM nml Neck exam: Supple, nontender Respiratory Exam: CTA, breath sounds present, no rales, no rhonchi, no wheezes Cardiovascular Exam: RRR, S1, S2, No Murmur, No rub, No gallops, pulses symmetrical Abdomen Description: Tenderness in epigastric, LUQ and LLQ. Soft, no guarding, no rebound, nondistended, no organomegaly Bowel Sounds: Present Musculoskeletal: Normal, Strength/ROM Intact Neurological Exam: nml, sens/motor intact, A&Ox3, no cerebellar dysfunction Psychological Exam: affect/mood appropriate Triage Information Reviewed: Yes Vital Signs On Initial Exam: Initial Vitals Resp BP 14 151/86 05/09/17 21:22 05/09/17 21:22 Vital Signs Reviewed: Yes - [place] Coma Scale Coma Scale Total: 15 Diagnostics - Vital Signs Vital Signs Temp Pulse Resp BP Pulse Ox 05/09/17 22:00 89 10 122/74 96 05/09/17 21:30 91 12 128/80 97 05/09/17 21:26 98.6 F 92 14 151/86 97 05/09/17 21:22 14 151/86 - Laboratory Lab Results: Lab Results 05/09/17 05/09/17 05/09/17 Range/Units 22:50 22:50 22:50 WBC 10.3 (3.5-10.8) 10^3/ul RBC 4.29 (4.0-5.4) 10^6/ul Hgb 11.3 L (12.0-16.0) g/dl Hct 35 (35-47) % MCV 80 (80-97) fL MCH 26 L (27-31) pg MCHC 33 (31-36) g/dl RDW 17 H (10.5-15) % Plt Count 203 (150-450) 10^3/ul MPV 9 (7.4-10.4) um3 INR (Anticoag Therapy) 0.90 (0.89-1.11) Sodium 136 (133-145) mmol/L Potassium 4.5 (3.5-5.0) mmol/L Chloride 105 (101-111) mmol/L Carbon Dioxide 26 (22-32) mmol/L Anion Gap 5 (2-11) mmol/L BUN 13 (6-24) mg/dL Creatinine 0.79 (0.51-0.95) mg/dL Est GFR ( Amer) 99.1 (>60) Est GFR (Non-Af Amer) 77.0 (>60) BUN/Creatinine Ratio 16.5 (8-20) Glucose 332 H (70-100) mg/dL Lactic Acid (0.5-2.0) mmol/L Calcium 9.1 (8.6-10.3) mg/dL Total Bilirubin 0.20 (0.2-1.0) mg/dL AST 27 (13-39) U/L ALT 32 (7-52) U/L Alkaline Phosphatase 167 H (34-104) U/L C-Reactive Protein 10.65 H (< 5.00) mg/L Total Protein 6.6 (6.4-8.9) g/dL Albumin 3.4 (3.2-5.2) g/dL Globulin 3.2 (2-4) g/dL Albumin/Globulin Ratio 1.1 (1-3) Lipase 10 L (11.0-82.0) U/L Beta HCG, Quant 2.26 mIU/mL 05/09/17 Range/Units 22:50 WBC (3.5-10.8) 10^3/ul RBC (4.0-5.4) 10^6/ul Hgb (12.0-16.0) g/dl Hct (35-47) % MCV (80-97) fL MCH (27-31) pg MCHC (31-36) g/dl RDW (10.5-15) % Plt Count (150-450) 10^3/ul MPV (7.4-10.4) um3 INR (Anticoag Therapy) (0.89-1.11) Sodium (133-145) mmol/L Potassium (3.5-5.0) mmol/L Chloride (101-111) mmol/L Carbon Dioxide (22-32) mmol/L Anion Gap (2-11) mmol/L BUN (6-24) mg/dL Creatinine (0.51-0.95) mg/dL Est GFR ( Amer) (>60) Est GFR (Non-Af Amer) (>60) BUN/Creatinine Ratio (8-20) Glucose (70-100) mg/dL Lactic Acid 1.5 (0.5-2.0) mmol/L Calcium (8.6-10.3) mg/dL Total Bilirubin (0.2-1.0) mg/dL AST (13-39) U/L ALT (7-52) U/L Alkaline Phosphatase (34-104) U/L C-Reactive Protein (< 5.00) mg/L Total Protein (6.4-8.9) g/dL Albumin (3.2-5.2) g/dL Globulin (2-4) g/dL Albumin/Globulin Ratio (1-3) Lipase (11.0-82.0) U/L Beta HCG, Quant mIU/mL Result Diagrams: 05/09/17 22:50 05/09/17 22:50 Lab Statement: Any lab studies that have been ordered have been reviewed, and results considered in the medical decision making process. - CT A/P CT W CT Interpretation: Positive (See Comments) - stable left adrenal mass likely reflects an adenoma CT Interpretation Completed By: Radiologist - ED physician has reviewed this radiology report and agrees. Re-Evaluation - Re-Evaluation First Eval Re-Evaluation Time: 05:47 Comment: reviewed pt's labs and imaging reports. Discussed pt's disposition. Abdominal Pain Fem Course/Dx - Course Course Of Treatment: Reviewed pts medication and allergy lists. High blood pressure noted. - Diagnoses Provider Diagnoses: Abdominal pain, Hernia Discharge - Discharge Plan Condition: Stable Disposition: HOME Patient Education Materials: Umbilical Hernia (ED), Abdominal Pain (ED) Referrals: Alexander Hernandez MD [Medical Doctor] - The documentation as recorded by the Junior roth Benjamin accurately reflects the service I personally performed and the decisions made by Marcus de león Afoma Frances, MD.
== END 2017-05-10 06:00 | disposition home or self-care (01) ==
LOC: ED 21:06
DX: K46.9 Unspecified abdominal hernia without obstruction or gangrene (principal); R10.32 Left lower quadrant pain; R19.7 Diarrhea, unspecified; F17.210 Nicotine dependence, cigarettes, uncomplicated
CPT/HCPCS: 36415; 74177; 80053; 81003; 83605; 83690; 84702; 85027; 85610; 86140; 99283; A9270-GY; Q9967

== ENCOUNTER 2017-05-11 17:05 | Emergency (ER) | payer MEDICARE, MEDICAID ==
[2017-05-11 19:05] LABS: Urine Bilirubin Negative (Negative); Urine Glucose Negative (Negative); Urine Nitrite Negative (Negative)
[2017-05-11 19:50] LABS: Hematocrit 37 % (35-47); Mean Corpuscular HGB Conc 33 g/dl (31-36); Mean Corpuscular Hemoglobin 27 pg (27-31); Mean Corpuscular Volume 81 fL (80-97); Mean Platelet Volume 9 um3 (7.4-10.4); Red Blood Count 4.54 10^6/ul (4.0-5.4); Red Cell Distribution Width 17 % (10.5-15); White Blood Count 12.4 10^3/ul (3.5-10.8)
[2017-05-11 20:07] LABS: ALT 28 U/L (7-52); AST 28 U/L (13-39); Albumin 3.6 g/dL (3.2-5.2); Alkaline Phosphatase 159 U/L (34-104); Anion Gap 5 mmol/L (2-11); BUN/Creatinine Ratio 18.7 (8-20); Blood Urea Nitrogen 17 mg/dL (6-24); C Reactive Protein 8.79 mg/L (< 5.00); CO2 Carbon Dioxide 28 mmol/L (22-32); Calcium 9.2 mg/dL (8.6-10.3); Chloride 106 mmol/L (101-111); EGFR African American 84.2 (>60); EGFR Non-African American 65.4 (>60); Globulin 3.3 g/dL (2-4); Glucose 67 mg/dL (70-100); Lipase < 10 U/L (11.0-82.0); Potassium 4.3 mmol/L (3.5-5.0); Sodium 139 mmol/L (133-145); Total Protein 6.9 g/dL (6.4-8.9)
[2017-05-11] MEDS ORDERED: Acetaminophen TAB* 325 MG PO ONE (22:02)
[2017-05-11] MEDS ORDERED: Acetaminophen TAB* 325 MG ONE (22:04)
--- NOTE | 2017-05-11 22:09 | ED ---
Lucero Rosales Thomas, scribed for Neo Kauffman MD on 05/11/17 at 1836 . Abdominal Pain/Female - HPI Summary HPI Summary: The patient is a 51 y/o F who presents to the ED c/o abd pain for the last four days. The pain is constant and the patient rates the pain 6/10. The pain is aggravated and alleviated by nothing. 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 She says that two weeks ago she was a size 22 and has grown in size in the last two weeks. She no longer fits into clothes that she used to fit into. PMHx: pancreatitis, DM, borderline PD, schizoaffective PD. PSHx: cholecystectomy. Her PMD is Dr. Sullivan. She has not been evaluated by a residential appliance repair technician. She has many prior visits [place] [facility] - History of Current Complaint Chief Complaint: EDAbdPain Stated Complaint: ABD PAIN Time Seen by Provider: 05/11/17 18:23 Hx Obtained From: Patient Hx Last Menstrual Period: 09/29/16 Onset/Duration: Lasting Days - onset of abd pain four days ago, Still Present Timing: Constant Severity Currently: Moderate Pain Intensity: 6 Pain Scale Used: 0-10 Numeric Aggravating Factor(s): Nothing Alleviating Factor(s): Nothing Associated Signs and Symptoms: Positive: Other: - Recent increase in size Allergies/Adverse Reactions: Allergies Allergy/AdvReac Type Severity Reaction Status Date / Time Ibuprofen Allergy Severe Hives Verified 05/11/17 17:13 Latex Allergy Severe Rash Verified 05/11/17 17:13 Sulfa Antibiotics Allergy Severe Hives Verified 05/11/17 17:13 Penicillins Allergy Intermediate Rash Verified 05/11/17 17:13 Nalbuphine Allergy Unknown Unknown Verified 05/11/17 17:13 Reaction Details Perphenazine Allergy Unknown Unknown Verified 05/11/17 17:13 Reaction Details Ciprofloxacin [From Cipro] AdvReac Severe Dizziness Verified 05/11/17 17:13 Tramadol AdvReac Severe Altered Verified 05/11/17 17:13 Mental Status [place] AdvReac Mild See Comment Verified 05/11/17 17:13 ENVIRONMENTAL Allergy Mild SINUS Uncoded 05/11/17 17:13 PMH/Surg Hx/FS Hx/Imm Hx Previously Healthy: No Endocrine/Hematology History: Reports: Hx Diabetes, Hx Thyroid Disease, Other Endocrine/Hematological Disorders - Chronic pancreatitis Denies: Hx Anticoagulant Therapy Cardiovascular History: Reports: Hx Hypertension, Other Cardiovascular Problems/ Disorders - PER H&P- HX OF PSVT 04/2008 Denies: Hx Pacemaker/ICD Respiratory History: Reports: Hx Asthma, Hx Seasonal Allergies, Hx Sleep Apnea - uses c-pap but hasn't used it for 5 mos due to being broken Denies: Hx Chronic Bronchitis, Hx Chronic Obstructive Pulmonary Disease (COPD ), Hx Cystic Fibrosis, Hx Lung Cancer, Hx Pleural Effusion, Hx Pneumonia, Hx Pulmonary Edema, Hx Pulmonary Embolism, Other Respiratory Problems/Disorders GI History: Reports: Hx Gall Bladder Disease, Hx Gastroesophageal Reflux Disease , Hx Gastrointestinal Bleed, Hx Irritable Bowel, Other GI Disorders - pancreatitis/gastroenteritis Denies: Hx Ulcer History: Denies: Hx Dialysis, Hx Renal Disease Musculoskeletal History: Reports: Hx Arthritis, Hx Back Problems, Other Musculoskeletal History - GEN MUSCULOSKELETAL PAIN Denies: Hx Rheumatoid Arthritis, Hx Bursitis, Hx Congenital Bone Abnormalities, Hx Fibromyalgia, Hx Gout, Hx Orthopedic Injury, Hx Osteoporosis, Hx Scoliosis, Hx Tendonitis Sensory History: Reports: Hx Cataracts, Hx Contacts or Glasses, Hx Vision Problem Denies: Hx Eye Injury, Hx Eye Prosthesis, Hx Glaucoma, Hx Macular Degeneration, Hx Deafness, Hx Hearing Aid, Hx Hearing Problem, Other Sensory Impairments Opthamlomology History: Reports: Hx Cataracts, Hx Contacts or Glasses, Hx Vision Problem Denies: Hx Eye Injury, Hx Eye Prosthesis, Hx Glaucoma, Hx Macular Degeneration, Other Sensory Impairments Neurological History: Reports: Hx Developmental Delay - intellectual disability Denies: Hx Dementia, Hx Seizures, Other Neuro Impairments/Disorders Psychiatric History: Reports: Hx Anxiety, Hx Depression, Hx Post Traumatic Stress Disorder, Hx Inpatient Treatment, Hx Community Mental Health Tx, Hx Bipolar Disorder - pt manic, Hx Suicide Attempt - past med overdoses, Hx of Violent Episodes Against Others, Other Psychiatric Issues/Disorders - PSYCHOSIS NOS, HX OF PTSD, SCHIZOAFFECTIVE DISORDER, BORDERLINE PERSONALITY Denies: Hx Attention Deficit Hyperactivity Disorder, Hx Eating Disorder, Hx Panic Disorder, Hx Schizophrenia, Hx Substance Abuse - Surgical History Surgery Procedure, Year, and Place: 2011-CATARACT EXTRACTION. GALLBLADDER REMOVED . HIP SURGERY ACHILD Hx Anesthesia Reactions: No - Immunization History Date of Tetanus Vaccine: Unknown Date of Influenza Vaccine: 04/2017 Infectious Disease History: No Infectious Disease History: Denies: Hx Clostridium Difficile, Hx Hepatitis, Hx Human Immunodeficiency Virus (HIV), Hx of Known/Suspected MRSA, Hx Shingles, Hx Tuberculosis, Hx Known/ Suspected VRE, Hx Known/Suspected VRSA, History Other Infectious Disease, Traveled Outside the [place] in Last 30 Days - Family History Known Family History: Positive: Other - Anxiety and depression, [place] - father Negative: Cardiac Disease, Hypertension, Diabetes Family History: Depression and anxiety - Social History Alcohol Use: None Hx Substance Use: Yes Substance Use Type: Reports: None, Prescribed Hx Tobacco Use: Yes Smoking Status (MU): Light Every Day Tobacco Smoker Type: Cigarettes Length of Time of Smoking/Using Tobacco: 2 year ago Have You Smoked in the Last Year: No Review of Systems Negative: Fever Positive: Abdominal Pain - onset four days ago, Other - Recent increase in size. All Other Systems Reviewed And Are Negative: Yes Physical Exam Triage Information Reviewed: Yes Vital Signs On Initial Exam: Initial Vitals Temp Pulse Resp BP Pulse Ox 98.0 F 88 16 153/101 100 05/11/17 17:10 05/11/17 17:10 05/11/17 17:10 05/11/17 17:10 05/11/17 17:10 Vital Signs Reviewed: Yes Appearance: Positive: Well-Appearing, No Pain Distress, Obese Skin: Positive: Warm, Skin Color Reflects Adequate Perfusion, Dry Head/Face: Positive: Normal Head/Face Inspection Eyes: Positive: Normal ENT: Positive: Normal ENT inspection Neck: Positive: Supple, Nontender Respiratory/Lung Sounds: Positive: Clear to Auscultation, Breath Sounds Present Cardiovascular: Positive: RRR Abdomen Description: Positive: Nontender, Soft Bowel Sounds: Positive: Present Musculoskeletal: Positive: Normal Neurological: Positive: Normal Psychiatric: Positive: Normal, Affect/Mood Appropriate - [place] Coma Scale Coma Scale Total: 15 Diagnostics - Vital Signs Vital Signs Temp Pulse Resp BP Pulse Ox 05/11/17 17:13 93 96 05/11/17 17:11 153/101 05/11/17 17:10 98.0 F 88 16 153/101 100 - Laboratory Lab Results: Lab Results 05/11/17 05/11/17 05/11/17 Range/Units 18:49 19:35 19:35 WBC 12.4 H (3.5-10.8) 10^3/ul RBC 4.54 (4.0-5.4) 10^6/ul Hgb 12.0 (12.0-16.0) g/dl Hct 37 (35-47) % MCV 81 (80-97) fL MCH 27 (27-31) pg MCHC 33 (31-36) g/dl RDW 17 H (10.5-15) % Plt Count 218 (150-450) 10^3/ul MPV 9 (7.4-10.4) um3 Neut % (Auto) 69.4 (38-83) % Lymph % (Auto) 25.6 (25-47) % [place] % (Auto) 3.4 (1-9) % Eos % (Auto) 1.1 (0-6) % Baso % (Auto) 0.5 (0-2) % Absolute Neuts (auto) 8.6 H (1.5-7.7) 10^3/ul Absolute Lymphs (auto) 3.2 (1.0-4.8) 10^3/ul Absolute Monos (auto) 0.4 (0-0.8) 10^3/ul Absolute Eos (auto) 0.1 (0-0.6) 10^3/ul Absolute Basos (auto) 0.1 (0-0.2) 10^3/ul Absolute Nucleated RBC 0 10^3/ul Nucleated RBC % 0 Sodium 139 (133-145) mmol/L Potassium 4.3 (3.5-5.0) mmol/L Chloride 106 (101-111) mmol/L Carbon Dioxide 28 (22-32) mmol/L Anion Gap 5 (2-11) mmol/L BUN 17 (6-24) mg/dL Creatinine 0.91 (0.51-0.95) mg/dL Est GFR ( Amer) 84.2 (>60) Est GFR (Non-Af Amer) 65.4 (>60) BUN/Creatinine Ratio 18.7 (8-20) Glucose 67 L (70-100) mg/dL Calcium 9.2 (8.6-10.3) mg/dL Total Bilirubin 0.20 (0.2-1.0) mg/dL AST 28 (13-39) U/L ALT 28 (7-52) U/L Alkaline Phosphatase 159 H (34-104) U/L C-Reactive Protein 8.79 H (< 5.00) mg/L Total Protein 6.9 (6.4-8.9) g/dL Albumin 3.6 (3.2-5.2) g/dL Globulin 3.3 (2-4) g/dL Albumin/Globulin Ratio 1.1 (1-3) Lipase < 10 L (11.0-82.0) U/L Urine Color Yellow Urine Appearance Clear Urine pH 5.0 (5-9) Ur Specific [place] 1.026 (1.010-1.030) Urine Protein Negative (Negative) Urine Ketones Negative (Negative) Urine Blood Negative (Negative) Urine Nitrate Negative (Negative) Urine Bilirubin Negative (Negative) Urine Urobilinogen Negative (Negative) Ur Leukocyte Esterase Negative (Negative) Urine Glucose Negative (Negative) Result Diagrams: 05/11/17 19:35 05/11/17 19:35 Lab Statement: Any lab studies that have been ordered have been reviewed, and results considered in the medical decision making process. Abdominal Pain Fem Course/Dx - Course Course Of Treatment: Taryn got concerned because her clothes didn't fit and is concerned about bloating. This is a common concern for her and has been W/U'd in the past. She was nontender to exam when distracted and I will send her back to her PMD. - Diagnoses Provider Diagnoses: Abdominal pain Discharge - Discharge Plan Condition: Stable Disposition: HOME Patient Education Materials: Abdominal Pain (ED) Referrals: Gabo Sullivan MD [Primary Care Provider] - 3 Days Additional Instructions: Follow up with Dr. Sullivan in 2-3 days. The documentation as recorded by the Lucero roth Thomas accurately reflects the service I personally performed and the decisions made by , Neo Kauffman MD.
[2017-05-11 22:25] VITALS: BP 106/74
== END 2017-05-11 22:25 | disposition home or self-care (01) ==
LOC: ED 17:05
DX: R10.9 Unspecified abdominal pain (principal); E11.9 Type 2 diabetes mellitus without complications; E07.9 Disorder of thyroid, unspecified; K86.1 Other chronic pancreatitis; I10 Essential (primary) hypertension; J45.909 Unspecified asthma, uncomplicated; K21.9 Gastro-esophageal reflux disease without esophagitis; F41.9 Anxiety disorder, unspecified; F32.9 Major depressive disorder, single episode, unspecified; E66.9 Obesity, unspecified; Z90.49 Acquired absence of other specified parts of digestive tract; Z98.49 Cataract extraction status, unspecified eye; Z88.0 Allergy status to penicillin; Z88.2 Allergy status to sulfonamides; Z88.6 Allergy status to analgesic agent; Z88.1 Allergy status to other antibiotic agents; Z91.040 Latex allergy status; F17.210 Nicotine dependence, cigarettes, uncomplicated
CPT/HCPCS: 36415; 80053; 81003; 83690; 85025; 86140; 99283; A9270-GY

== ENCOUNTER 2017-05-12 01:12 | Emergency (ER) | payer MEDICARE, MEDICAID ==
[2017-05-12] MEDS ORDERED: NS 0.9% 1000 ML* 1,000 ML IV SCH (02:30)
[2017-05-12 03:22] LABS: Hematocrit 35 % (35-47); Hemoglobin 11.4 g/dl (12.0-16.0); Mean Corpuscular HGB Conc 32 g/dl (31-36); Mean Corpuscular Hemoglobin 26 pg (27-31); Mean Corpuscular Volume 81 fL (80-97); Red Blood Count 4.34 10^6/ul (4.0-5.4); Red Cell Distribution Width 17 % (10.5-15); White Blood Count 16.5 10^3/ul (3.5-10.8)
[2017-05-12 03:32] LABS: Comments Flag Yes
[2017-05-12 03:33] LABS: Acetaminophen < 15 mcg/mL; Add Diff/Slide Review? Slide Review Added; Alcohol < 10 mg/dL (<10); Salicylate < 2.50 mg/dL (<30)
[2017-05-12 03:34] LABS: ALT 24 U/L (7-52); AST 30 U/L (13-39); Albumin 3.4 g/dL (3.2-5.2); Alkaline Phosphatase 134 U/L (34-104); Anion Gap 7 mmol/L (2-11); BUN/Creatinine Ratio 19.5 (8-20); Blood Urea Nitrogen 17 mg/dL (6-24); CO2 Carbon Dioxide 26 mmol/L (22-32); Chloride 105 mmol/L (101-111); EGFR African American 88.6 (>60); EGFR Non-African American 68.9 (>60); Globulin 3.4 g/dL (2-4); Glucose 130 mg/dL (70-100); Sodium 138 mmol/L (133-145); Total Protein 6.8 g/dL (6.4-8.9)
[2017-05-12 03:49] LABS: TSH (Thyroid Stimulating Horm) 7.52 mcIU/mL (0.34-5.60)
[2017-05-12 04:00] LABS: Mean Platelet Volume 9 um3 (7.4-10.4)
--- NOTE | 2017-05-12 07:34 | ED ---
Marietta Rosales Abhishek, scribed for Nathaniel Haro MD on 05/12/17 at 0656 . Substance Abuse/Use - HPI Summary HPI Summary: Pt is a 51 y/o F BIBA as a 941 who presents to ED s/p OD tonight. Per nurse's triage, pt took Trazodone, Zyprexa and Naproxen in attempted suicide. - History Of Current Complaint Chief Complaint: EDOverdose Stated Complaint: 941 Time Seen by Provider: 05/12/17 03:30 Hx Obtained From: Medical Records Hx From Patient Unobtainable Due To: Other - OD Hx Last Menstrual Period: 09/29/16 Ingestion History: Type/Name Of Drug - Naprozen, Trazodone and Zyprexa Overdose Characteristics: Oral - Allergies/Home Medications Allergies/Adverse Reactions: Allergies Allergy/AdvReac Type Severity Reaction Status Date / Time Ibuprofen Allergy Severe Hives Verified 05/11/17 17:13 Latex Allergy Severe Rash Verified 05/11/17 17:13 Sulfa Antibiotics Allergy Severe Hives Verified 05/11/17 17:13 Penicillins Allergy Intermediate Rash Verified 05/11/17 17:13 Nalbuphine Allergy Unknown Unknown Verified 05/11/17 17:13 Reaction Details Perphenazine Allergy Unknown Unknown Verified 05/11/17 17:13 Reaction Details Ciprofloxacin [From Cipro] AdvReac Severe Dizziness Verified 05/11/17 17:13 Tramadol AdvReac Severe Altered Verified 05/11/17 17:13 Mental Status [place] AdvReac Mild See Comment Verified 05/11/17 17:13 ENVIRONMENTAL Allergy Mild SINUS Uncoded 05/11/17 17:13 PMH/Surg Hx/FS Hx/Imm Hx Endocrine/Hematology History: Reports: Hx Diabetes, Hx Thyroid Disease, Other Endocrine/Hematological Disorders - Chronic pancreatitis Denies: Hx Anticoagulant Therapy Cardiovascular History: Reports: Hx Hypertension, Other Cardiovascular Problems/ Disorders - PER H&P- HX OF PSVT 04/2008 Denies: Hx Pacemaker/ICD Respiratory History: Reports: Hx Asthma, Hx Seasonal Allergies, Hx Sleep Apnea - uses c-pap but hasn't used it for 5 mos due to being broken Denies: Hx Chronic Bronchitis, Hx Chronic Obstructive Pulmonary Disease (COPD ), Hx Cystic Fibrosis, Hx Lung Cancer, Hx Pleural Effusion, Hx Pneumonia, Hx Pulmonary Edema, Hx Pulmonary Embolism, Other Respiratory Problems/Disorders GI History: Reports: Hx Gall Bladder Disease, Hx Gastroesophageal Reflux Disease , Hx Gastrointestinal Bleed, Hx Irritable Bowel, Other GI Disorders - pancreatitis/gastroenteritis Denies: Hx Ulcer History: Denies: Hx Dialysis, Hx Renal Disease Musculoskeletal History: Reports: Hx Arthritis, Hx Back Problems, Other Musculoskeletal History - GEN MUSCULOSKELETAL PAIN Denies: Hx Rheumatoid Arthritis, Hx Bursitis, Hx Congenital Bone Abnormalities, Hx Fibromyalgia, Hx Gout, Hx Orthopedic Injury, Hx Osteoporosis, Hx Scoliosis, Hx Tendonitis Sensory History: Reports: Hx Cataracts, Hx Contacts or Glasses, Hx Vision Problem Denies: Hx Eye Injury, Hx Eye Prosthesis, Hx Glaucoma, Hx Macular Degeneration, Hx Deafness, Hx Hearing Aid, Hx Hearing Problem, Other Sensory Impairments Opthamlomology History: Reports: Hx Cataracts, Hx Contacts or Glasses, Hx Vision Problem Denies: Hx Eye Injury, Hx Eye Prosthesis, Hx Glaucoma, Hx Macular Degeneration, Other Sensory Impairments Neurological History: Reports: Hx Developmental Delay - intellectual disability Denies: Hx Dementia, Hx Seizures, Other Neuro Impairments/Disorders Psychiatric History: Reports: Hx Anxiety, Hx Depression, Hx Post Traumatic Stress Disorder, Hx Inpatient Treatment, Hx Community Mental Health Tx, Hx Bipolar Disorder - pt manic, Hx Suicide Attempt - past med overdoses, Hx of Violent Episodes Against Others, Other Psychiatric Issues/Disorders - PSYCHOSIS NOS, HX OF PTSD, SCHIZOAFFECTIVE DISORDER, BORDERLINE PERSONALITY Denies: Hx Attention Deficit Hyperactivity Disorder, Hx Eating Disorder, Hx Panic Disorder, Hx Schizophrenia, Hx Substance Abuse - Surgical History Surgery Procedure, Year, and Place: 2011-CATARACT EXTRACTION. GALLBLADDER REMOVED . HIP SURGERY ACHILD Hx Anesthesia Reactions: No - Immunization History Date of Tetanus Vaccine: Unknown Date of Influenza Vaccine: 04/2017 Infectious Disease History: No Infectious Disease History: Denies: Hx Clostridium Difficile, Hx Hepatitis, Hx Human Immunodeficiency Virus (HIV), Hx of Known/Suspected MRSA, Hx Shingles, Hx Tuberculosis, Hx Known/ Suspected VRE, Hx Known/Suspected VRSA, History Other Infectious Disease, Traveled Outside the [place] in Last 30 Days - Family History Known Family History: Positive: Other - Anxiety and depression, [place] - father Negative: Cardiac Disease, Hypertension, Diabetes Family History: Depression and anxiety - Social History Alcohol Use: None Hx Substance Use: Yes Substance Use Type: Reports: None, Prescribed Hx Tobacco Use: Yes Smoking Status (MU): Light Every Day Tobacco Smoker Type: Cigarettes Length of Time of Smoking/Using Tobacco: 2 year ago Have You Smoked in the Last Year: No Review of Systems - ROS Summary Review of Systems Summary: Level 5 caveat Negative: Fever Positive: Other - OD 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 All Other Systems Reviewed And Are Negative: No Physical Exam - Summary Physical Exam Summary: General: well-appearing, no pain distress Skin: warm, color reflects adequate perfusion, dry Head: normal Eyes: EOMI, JENNIFER Neck: supple, nontender Respiratory: CTA, breath sounds present Cardiovascular: RRR Musculoskeletal: moves all extremities in a grossly normal manner Neurological: alert Psychological: alert Triage Information Reviewed: Yes Vital Signs On Initial Exam: Initial Vitals Temp Pulse Resp BP Pulse Ox 98.3 F 86 14 141/84 98 05/12/17 01:15 05/12/17 01:15 05/12/17 01:15 05/12/17 01:15 05/12/17 01:15 Vital Signs Reviewed: Yes Completion Of Physical Exam Limited Due To: Level 5 - [place] Coma Scale Coma Scale Total: 15 Diagnostics - Vital Signs Vital Signs Temp Pulse Resp BP Pulse Ox 05/12/17 05:30 64 14 103/61 94 05/12/17 05:01 72 17 115/71 94 05/12/17 05:00 65 16 94 05/12/17 04:52 67 11 102/72 94 05/12/17 04:30 70 14 88/63 92 05/12/17 04:00 76 92/61 95 05/12/17 03:30 74 13 113/65 96 05/12/17 03:12 95 05/12/17 03:10 78 10 97 05/12/17 03:09 108/64 05/12/17 01:15 98.3 F 86 14 141/84 98 - Laboratory Lab Results: Lab Results 05/12/17 05/12/17 Range/Units 03:00 03:00 WBC 16.5 H (3.5-10.8) 10^3/ul RBC 4.34 (4.0-5.4) 10^6/ul Hgb 11.4 L (12.0-16.0) g/dl Hct 35 (35-47) % MCV 81 (80-97) fL MCH 26 L (27-31) pg MCHC 32 (31-36) g/dl RDW 17 H (10.5-15) % Plt Count 193 (150-450) 10^3/ul MPV 9 (7.4-10.4) um3 Neut % (Auto) 72.2 (38-83) % Lymph % (Auto) 22.9 L (25-47) % [place] % (Auto) 3.4 (1-9) % Eos % (Auto) 0.9 (0-6) % Baso % (Auto) 0.6 (0-2) % Absolute Neuts (auto) 11.9 H (1.5-7.7) 10^3/ul Absolute Lymphs (auto) 3.8 (1.0-4.8) 10^3/ul Absolute Monos (auto) 0.6 (0-0.8) 10^3/ul Absolute Eos (auto) 0.2 (0-0.6) 10^3/ul Absolute Basos (auto) 0.1 (0-0.2) 10^3/ul Absolute Nucleated RBC 0.01 10^3/ul Nucleated RBC % 0.1 Sodium 138 (133-145) mmol/L Potassium 4.0 (3.5-5.0) mmol/L Chloride 105 (101-111) mmol/L Carbon Dioxide 26 (22-32) mmol/L Anion Gap 7 (2-11) mmol/L BUN 17 (6-24) mg/dL Creatinine 0.87 (0.51-0.95) mg/dL Est GFR ( Amer) 88.6 (>60) Est GFR (Non-Af Amer) 68.9 (>60) BUN/Creatinine Ratio 19.5 (8-20) Glucose 130 H (70-100) mg/dL Calcium 9.0 (8.6-10.3) mg/dL Total Bilirubin 0.20 (0.2-1.0) mg/dL AST 30 (13-39) U/L ALT 24 (7-52) U/L Alkaline Phosphatase 134 H (34-104) U/L Total Protein 6.8 (6.4-8.9) g/dL Albumin 3.4 (3.2-5.2) g/dL Globulin 3.4 (2-4) g/dL Albumin/Globulin Ratio 1.0 (1-3) TSH 7.52 H (0.34-5.60) mcIU/mL Salicylates < 2.50 (<30) mg/dL Acetaminophen < 15 mcg/mL Serum Alcohol < 10 (<10) mg/dL Result Diagrams: 05/12/17 03:00 05/12/17 03:00 Lab Statement: Any lab studies that have been ordered have been reviewed, and results considered in the medical decision making process. - EKG 0303 Cardiac Rate: NL - 78 bpm EKG Rhythm: Sinus Rhythm ST Segment: Normal Ectopy: None Course/Dx - Course Assessment/Plan: Medically cleared for MHE at 0700. Allergies noted. Medicaitons reviewed. Elevated BP noted. MHE PENDING AT SHIFT CHANGE. - Diagnoses Provider Diagnoses: Methamphetamine abuse, Mental health problem Discharge - Discharge Plan Condition: Stable Disposition: OTHER Discharge Disposition Comment: . Referrals: Gabo Sullivan MD [Primary Care Provider] - The documentation as recorded by the Marietta roth Abhishek accurately reflects the service I personally performed and the decisions made by me, Nathaniel Haro MD.
[2017-05-12 07:47] LABS: Urine Bacteria 1+ (Absent); Urine Bilirubin Negative (Negative); Urine Glucose Negative (Negative); Urine Nitrite Negative (Negative)
[2017-05-12 07:56] LABS: Benzodiazepine Urine Screen None Detected (None Detect)
[2017-05-12 08:03] VITALS: BP 132/85
== END 2017-05-12 14:40 | disposition home or self-care (01) ==
LOC: ED 01:12
DX: F15.20 Other stimulant dependence, uncomplicated (principal); Z00.8 Encounter for other general examination
CPT/HCPCS: 36415; 80053; 80307; 80320; 80329; 81003; 81015; 84443; 85025; 87086; 93005; 99285; G0480

== ENCOUNTER 2017-05-18 23:17 | Emergency (ER) | payer MEDICARE, MEDICAID ==
[2017-05-19] MEDS ORDERED: Naloxone* 0.4 MG/ML 1 ML VIAL ONE (02:39)
[2017-05-19] MEDS ORDERED: Naloxone* 0.4 MG/ML 10 ML VIAL ONE (02:50)
[2017-05-19 04:56] LABS: PCO2 Arterial 58 mmHg (35-45)
[2017-05-19 05:01] LABS: Hematocrit 34 % (35-47); Hemoglobin 11.1 g/dl (12.0-16.0); Mean Corpuscular HGB Conc 32 g/dl (31-36); Mean Corpuscular Hemoglobin 27 pg (27-31); Mean Corpuscular Volume 82 fL (80-97); Mean Platelet Volume 9 um3 (7.4-10.4); Red Blood Count 4.16 10^6/ul (4.0-5.4); Red Cell Distribution Width 18 % (10.5-15)
[2017-05-19 05:02] LABS: ALT 21 U/L (7-52); AST 27 U/L (13-39); Acetaminophen < 15 mcg/mL; Albumin 3.3 g/dL (3.2-5.2); Alcohol < 10 mg/dL (<10); Alkaline Phosphatase 149 U/L (34-104); BUN/Creatinine Ratio 19.2 (8-20); Blood Urea Nitrogen 19 mg/dL (6-24); CO2 Carbon Dioxide 27 mmol/L (22-32); Calcium 8.6 mg/dL (8.6-10.3); Chloride 105 mmol/L (101-111); EGFR African American 76.4 (>60); EGFR Non-African American 59.4 (>60); Globulin 2.7 g/dL (2-4); Glucose 210 mg/dL (70-100); Indirect Bilirubin 0.1 mg/dL (0.3-1.0); Salicylate < 2.50 mg/dL (<30); Troponin I 0.02 ng/mL (<0.04)
[2017-05-19 05:03] LABS: Anion Gap 6 mmol/L (2-11); Sodium 138 mmol/L (133-145)
[2017-05-19 05:05] LABS: Benzodiazepine Urine Screen None Detected (None Detect)
[2017-05-19 05:12] LABS: Urine Bacteria Absent (Absent); Urine Bilirubin Negative (Negative); Urine Glucose 1+(50 mg/dL) (Negative); Urine Nitrite Negative (Negative)
--- NOTE | 2017-05-19 07:52 | ED ---
Lucero Rosales Thomas, scribed for Yeyo Mcfarland MD on 05/19/17 at 0511 . Complex/Multi-Sys Presentation - HPI Summary HPI Summary: The patient is a 51 y/o F with a Hx of prior overdoses and ingestions who is BIB family after report ingestion of too many pills that she usually uses. She is able to answer questions and follow basic commands. Staff acquainted with the patient say she looks sleepy but not abnormal. History is limited by patient s current mental status. LEVEL 5 CAVEAT: HPI LIMITED BY INABILITY TO COMMUNICATE WELL - History Of Current Complaint Chief Complaint: EDGeneral Hx Obtained From: Patient, Medical Records Onset/Duration: Still Present Timing: Constant Aggravating Factor(s): Nothing Alleviating Factor(s): Nothing Associated Signs And Symptoms: Positive: Other - Suspected overdose, somnolent - Allergies/Home Medications Allergies/Adverse Reactions: Allergies Allergy/AdvReac Type Severity Reaction Status Date / Time Ibuprofen Allergy Severe Hives Verified 05/11/17 17:13 Latex Allergy Severe Rash Verified 05/11/17 17:13 Sulfa Antibiotics Allergy Severe Hives Verified 05/11/17 17:13 Penicillins Allergy Intermediate Rash Verified 05/11/17 17:13 Nalbuphine Allergy Unknown Unknown Verified 05/11/17 17:13 Reaction Details Perphenazine Allergy Unknown Unknown Verified 05/11/17 17:13 Reaction Details Ciprofloxacin [From Cipro] AdvReac Severe Dizziness Verified 05/11/17 17:13 Tramadol AdvReac Severe Altered Verified 05/11/17 17:13 Mental Status [place] AdvReac Mild See Comment Verified 05/11/17 17:13 ENVIRONMENTAL Allergy Mild SINUS Uncoded 05/11/17 17:13 PMH/Surg Hx/FS Hx/Imm Hx Previously Healthy: No - LEVEL 5 CAVEAT: PMH LIMITED BY INABILITY TO COMMUNICATE WELL Endocrine/Hematology History: Reports: Hx Diabetes, Hx Thyroid Disease, Other Endocrine/Hematological Disorders - Chronic pancreatitis Denies: Hx Anticoagulant Therapy Cardiovascular History: Reports: Hx Hypertension, Other Cardiovascular Problems/ Disorders - PER H&P- HX OF PSVT 04/2008 Denies: Hx Pacemaker/ICD Respiratory History: Reports: Hx Asthma, Hx Seasonal Allergies, Hx Sleep Apnea - uses c-pap but hasn't used it for 5 mos due to being broken Denies: Hx Chronic Bronchitis, Hx Chronic Obstructive Pulmonary Disease (COPD ), Hx Cystic Fibrosis, Hx Lung Cancer, Hx Pleural Effusion, Hx Pneumonia, Hx Pulmonary Edema, Hx Pulmonary Embolism, Other Respiratory Problems/Disorders GI History: Reports: Hx Gall Bladder Disease, Hx Gastroesophageal Reflux Disease , Hx Gastrointestinal Bleed, Hx Irritable Bowel, Other GI Disorders - pancreatitis/gastroenteritis Denies: Hx Ulcer History: Denies: Hx Dialysis, Hx Renal Disease Musculoskeletal History: Reports: Hx Arthritis, Hx Back Problems, Other Musculoskeletal History - GEN MUSCULOSKELETAL PAIN Denies: Hx Rheumatoid Arthritis, Hx Bursitis, Hx Congenital Bone Abnormalities, Hx Fibromyalgia, Hx Gout, Hx Orthopedic Injury, Hx Osteoporosis, Hx Scoliosis, Hx Tendonitis Sensory History: Reports: Hx Cataracts, Hx Contacts or Glasses, Hx Vision Problem Denies: Hx Eye Injury, Hx Eye Prosthesis, Hx Glaucoma, Hx Macular Degeneration, Hx Deafness, Hx Hearing Aid, Hx Hearing Problem, Other Sensory Impairments Opthamlomology History: Reports: Hx Cataracts, Hx Contacts or Glasses, Hx Vision Problem Denies: Hx Eye Injury, Hx Eye Prosthesis, Hx Glaucoma, Hx Macular Degeneration, Other Sensory Impairments Neurological History: Reports: Hx Developmental Delay - intellectual disability Denies: Hx Dementia, Hx Seizures, Other Neuro Impairments/Disorders Psychiatric History: Reports: Hx Anxiety, Hx Depression, Hx Post Traumatic Stress Disorder, Hx Inpatient Treatment, Hx Community Mental Health Tx, Hx Bipolar Disorder - pt manic, Hx Suicide Attempt - past med overdoses, Hx of Violent Episodes Against Others, Other Psychiatric Issues/Disorders - PSYCHOSIS NOS, HX OF PTSD, SCHIZOAFFECTIVE DISORDER, BORDERLINE PERSONALITY Denies: Hx Attention Deficit Hyperactivity Disorder, Hx Eating Disorder, Hx Panic Disorder, Hx Schizophrenia, Hx Substance Abuse - Surgical History Surgery Procedure, Year, and Place: 2011-CATARACT EXTRACTION. GALLBLADDER REMOVED . HIP SURGERY ACHILD Hx Anesthesia Reactions: No - Immunization History Date of Tetanus Vaccine: Unknown Date of Influenza Vaccine: 04/2017 Infectious Disease History: No Infectious Disease History: Denies: Hx Clostridium Difficile, Hx Hepatitis, Hx Human Immunodeficiency Virus (HIV), Hx of Known/Suspected MRSA, Hx Shingles, Hx Tuberculosis, Hx Known/ Suspected VRE, Hx Known/Suspected VRSA, History Other Infectious Disease, Traveled Outside the [place] in Last 30 Days - Family History Known Family History: Positive: Other - Anxiety and depression, [place] - father Negative: Cardiac Disease, Hypertension, Diabetes - Social History Alcohol Use: None Hx Substance Use: Yes Substance Use Type: Reports: Prescribed Hx Tobacco Use: Yes Smoking Status (MU): Light Every Day Tobacco Smoker Type: Cigarettes Length of Time of Smoking/Using Tobacco: 2 year ago Have You Smoked in the Last Year: No Review of Systems - ROS Summary Review of Systems Summary: LEVEL 5 CAVEAT: ROS LIMITED BY INABILITY TO COMMUNICATE WELL Neurological: Other - Somnolent Psychological: Other - Suspected overdose All Other Systems Reviewed And Are Negative: No Physical Exam - Summary Physical Exam Summary: LEVEL 5 CAVEAT: PHYSICAL EXAM LIMITED BY INABILITY TO COMMUNICATE WELL Appearance: Well-appearing, Well-nourished. She is slightly somnolent. Skin: Warm and dry. Eyes: EOMI. Pupils are 2mm and reactive to light bilaterally. HEAD: normocephalic. ENT: Normal. She is maintaining her airway. Neck: Supple, nontender Respiratory: Clear to auscultation bilaterally. She is breathing on her own. Cardiovascular: Normal. Abdomen: Soft, nontender Bowel: Present Musculoskeletal: Normal, Strength/ROM Intact EXTREMITIES: She has good pulses in all four extremities. Neurological: Alert, Oriented to Person. She is slightly somnolent. She is able to follow commands and speak in full sentences. She has slowed speech. There is no obvious facial droop or focal deficit. Psychiatric: Normal Triage Information Reviewed: Yes Vital Signs On Initial Exam: Initial Vitals Temp Pulse Resp BP Pulse Ox 97.2 F 99 20 103/74 97 05/18/17 23:28 05/18/17 23:28 05/18/17 23:28 05/18/17 23:28 05/18/17 23:28 Vital Signs Reviewed: Yes Diagnostics - Vital Signs Vital Signs Temp Pulse Resp BP Pulse Ox 05/19/17 05:00 81 19 123/66 96 05/19/17 04:56 81 20 115/57 95 05/19/17 04:15 78 18 132/83 97 05/19/17 04:00 72 20 95/70 98 05/19/17 03:45 73 19 103/60 99 05/19/17 03:30 74 19 94/64 99 05/19/17 03:20 75 19 100/63 99 05/19/17 03:15 75 21 91/64 99 05/19/17 03:00 78 20 101/61 99 05/19/17 02:45 80 21 95/59 99 05/19/17 02:30 83 21 96/57 99 05/19/17 02:26 85 23 82/57 99 05/19/17 02:20 86 21 82/53 99 05/19/17 02:19 86 97 05/19/17 02:18 89/53 05/19/17 02:16 84 20 100 05/19/17 02:00 86 18 99 05/19/17 01:31 90 10 96 05/19/17 01:30 133/76 05/18/17 23:28 97.2 F 99 20 103/74 97 - Laboratory Lab Results: Lab Results 05/19/17 05/19/17 05/19/17 Range/Units 02:35 02:35 02:35 WBC 10.0 (3.5-10.8) 10^3/ul RBC 4.16 (4.0-5.4) 10^6/ul Hgb 11.1 L (12.0-16.0) g/dl Hct 34 L (35-47) % MCV 82 (80-97) fL MCH 27 (27-31) pg MCHC 32 (31-36) g/dl RDW 18 H (10.5-15) % Plt Count 195 (150-450) 10^3/ul MPV 9 (7.4-10.4) um3 Neut % (Auto) 56.8 (38-83) % Lymph % (Auto) 35.0 (25-47) % Merrick % (Auto) 5.6 (1-9) % Eos % (Auto) 2.2 (0-6) % Baso % (Auto) 0.4 (0-2) % Absolute Neuts (auto) 5.7 (1.5-7.7) 10^3/ul Absolute Lymphs (auto) 3.5 (1.0-4.8) 10^3/ul Absolute Monos (auto) 0.6 (0-0.8) 10^3/ul Absolute Eos (auto) 0.2 (0-0.6) 10^3/ul Absolute Basos (auto) 0 (0-0.2) 10^3/ul Absolute Nucleated RBC 0 10^3/ul Nucleated RBC % 0 INR (Anticoag Therapy) 0.86 L (0.89-1.11) ABG pH 7.27 L (7.35-7.45) ABG pCO2 58 H (35-45) mmHg ABG pO2 99 (80-100) mmHg ABG HCO3 24.1 (19-31) mmol/L ABG O2 Saturation 94.8 L (95-98) % ABG Base Excess -0.9 (-2.0-2.0) Sodium (133-145) mmol/L Potassium (3.5-5.0) mmol/L Chloride (101-111) mmol/L Carbon Dioxide (22-32) mmol/L Anion Gap (2-11) mmol/L BUN (6-24) mg/dL Creatinine (0.51-0.95) mg/dL Est GFR ( Amer) (>60) Est GFR (Non-Af Amer) (>60) BUN/Creatinine Ratio (8-20) Glucose (70-100) mg/dL Calcium (8.6-10.3) mg/dL Total Bilirubin (0.2-1.0) mg/dL Direct Bilirubin (0.03-0.18) mg/dL Indirect Bilirubin (0.3-1.0) mg/dL AST (13-39) U/L ALT (7-52) U/L Alkaline Phosphatase (34-104) U/L Troponin I (<0.04) ng/mL Total Protein (6.4-8.9) g/dL Albumin (3.2-5.2) g/dL Globulin (2-4) g/dL Albumin/Globulin Ratio (1-3) Salicylates (<30) mg/dL Acetaminophen mcg/mL Serum Alcohol (<10) mg/dL 05/19/17 Range/Units 02:35 WBC (3.5-10.8) 10^3/ul RBC (4.0-5.4) 10^6/ul Hgb (12.0-16.0) g/dl Hct (35-47) % MCV (80-97) fL MCH (27-31) pg MCHC (31-36) g/dl RDW (10.5-15) % Plt Count (150-450) 10^3/ul MPV (7.4-10.4) um3 Neut % (Auto) (38-83) % Lymph % (Auto) (25-47) % Merrick % (Auto) (1-9) % Eos % (Auto) (0-6) % Baso % (Auto) (0-2) % Absolute Neuts (auto) (1.5-7.7) 10^3/ul Absolute Lymphs (auto) (1.0-4.8) 10^3/ul Absolute Monos (auto) (0-0.8) 10^3/ul Absolute Eos (auto) (0-0.6) 10^3/ul Absolute Basos (auto) (0-0.2) 10^3/ul Absolute Nucleated RBC 10^3/ul Nucleated RBC % INR (Anticoag Therapy) (0.89-1.11) ABG pH (7.35-7.45) ABG pCO2 (35-45) mmHg ABG pO2 (80-100) mmHg ABG HCO3 (19-31) mmol/L ABG O2 Saturation (95-98) % ABG Base Excess (-2.0-2.0) Sodium 138 (133-145) mmol/L Potassium 4.0 (3.5-5.0) mmol/L Chloride 105 (101-111) mmol/L Carbon Dioxide 27 (22-32) mmol/L Anion Gap 6 (2-11) mmol/L BUN 19 (6-24) mg/dL Creatinine 0.99 H (0.51-0.95) mg/dL Est GFR ( Amer) 76.4 (>60) Est GFR (Non-Af Amer) 59.4 (>60) BUN/Creatinine Ratio 19.2 (8-20) Glucose 210 H (70-100) mg/dL Calcium 8.6 (8.6-10.3) mg/dL Total Bilirubin 0.20 (0.2-1.0) mg/dL Direct Bilirubin 0.10 (0.03-0.18) mg/dL Indirect Bilirubin 0.1 L (0.3-1.0) mg/dL AST 27 (13-39) U/L ALT 21 (7-52) U/L Alkaline Phosphatase 149 H (34-104) U/L Troponin I 0.02 (<0.04) ng/mL Total Protein 6.0 L (6.4-8.9) g/dL Albumin 3.3 (3.2-5.2) g/dL Globulin 2.7 (2-4) g/dL Albumin/Globulin Ratio 1.2 (1-3) Salicylates < 2.50 (<30) mg/dL Acetaminophen < 15 mcg/mL Serum Alcohol < 10 (<10) mg/dL Result Diagrams: 05/19/17 02:35 05/19/17 02:35 Lab Statement: Any lab studies that have been ordered have been reviewed, and results considered in the medical decision making process. - CT CT Brain CT Interpretation: No Acute Changes - Mild involutional changes for age. No hemorrhage. No mass. No detectable acute infarct. Osseous structures are intact. Left occipital scalp lipoma again noted. CT Interpretation Completed By: Radiologist - EKG 02:49 Cardiac Rate: NL - 78 BPM EKG Rhythm: Sinus Rhythm Re-Evaluation - Re-Evaluation 02:35 Re-Evaluation Time: 02:35 Change: Unchanged Comment: She was given 0.4 naloxone, to no relief of symptoms. Complex Multi-Symp Course/Dx Course Of Treatment: EVENS Jones pending - Diagnoses Provider Diagnoses: Overdose Discharge - Discharge Plan Condition: Stable Disposition: OTHER Discharge Disposition Comment: signed out to Dr Rodriguez The documentation as recorded by the Lucero roth Thomas accurately reflects the service I personally performed and the decisions made by me, Yeyo Mcfarland MD.
--- NOTE | 2017-05-19 08:38 | RAD ---
INDICATION: Altered mental status. COMPARISON: Comparison is made with prior CTs of the brain from April 03, 2016 and March 29, 2017. TECHNIQUE: Contiguous axial sections of the brain were obtained from the skull base to the vertex without contrast. FINDINGS: The ventricles, cisterns and sulci are within normal limits. No significant focal abnormality or mass effect is seen. There is no evidence for hemorrhage. No significant focal osseous abnormality is seen. The paranasal sinuses and mastoid air cells appear clear. There is a focal fatty density mass present in the scalp posterior to the left occipital bone measuring 2.6 x 1.2 cm in size which is unchanged from the prior 2 studies most consistent with a lipoma. IMPRESSION: 1. NO EVIDENCE FOR ACUTE INTRACRANIAL ABNORMALITY. 2. LIPOMA IN THE SCALP ADJACENT TO THE LEFT OCCIPITAL BONE, UNCHANGED.
[2017-05-19 13:21] VITALS: BP 91/14
--- NOTE | 2017-05-19 14:19 | PN ---
Progress Note - Progress Note Date of Service: 05/19/17 Note: S: Patient well known to me. 51 y.o. female with chronic and primitive borderline PD arrives stating that she had an overdose on meds following being banned from her PMD's office, which is Dr. Lokchart at [facility]. She currently denies SI and is threatening to leave the hospital AMA. Patient's family has filed a complaint with [facility] administrators in [place] and she is hoping to be reinstated into their care. She claims to have access to meds at home until she can be re-enrolled at [facility]. O: obese, white female, denies SI or HI; argumentative; yelling at me about her primary care issue A/P: Borderline PD: this patient does not benefit from inpatient psychiatric care and would be safer being discharged back to the community. The patient was referred by Jalen to [facility] on [facility] and can follow up there if her appeal to [facility] is unsuccessful. Recommend d/c to home.
[2017-05-19] MEDS ORDERED: Cyclobenzaprine TAB* 10 MG PO ONE (17:20)
[2017-05-19] MEDS ORDERED: Acetaminophen TAB* 325 MG PO ONE (17:20)
--- NOTE | 2017-05-19 17:20 | ED ---
Jordon Rosales Angela, scribed for Maycol Al MD on 05/19/17 at 0827 . Progress - Progress Note Progress Note: The patient is a 51 y/o F with a Hx of prior overdoses and ingestions who is BIB family after report ingestion of too many pills that she usually uses. This pt was signed out by Dr. Mcfarland, pending disposition, awaiting MHE. Pt is medically cleared by Dr. Mcfarland. Pt reports she came to the ED because she is angry after she had a situation at her primary's office with a nurse, where she was dismissed from the practice. Pt is anxious and has SI. Physical Exam: VITAL SIGNS: Reviewed. GENERAL: Patient is a well-developed and nourished female who is lying comfortable in the stretcher. Patient is not in any acute respiratory distress. HEAD AND FACE: No signs of trauma. No ecchymosis, hematomas or skull depressions. No sinus tenderness. EYES: PERRLA, EOMI x 2, No injected conjunctiva, no nystagmus. EARS: Hearing grossly intact. Ear canals and tympanic membranes are within normal limits. MOUTH: Oropharynx within normal limits. NECK: Supple, trachea is midline, no adenopathy, no JVD, no carotid bruit, no c- spine tenderness, neck with full ROM. CHEST: Symmetric, no tenderness at palpation LUNGS: Clear to auscultation bilaterally. No wheezing or crackles. CVS: Regular rate and rhythm, S1 and S2 present, no murmurs or gallops appreciated. ABDOMEN: Soft, non-tender. No signs of distention. No rebound no guarding, and no masses palpated. Bowel sounds are normal. EXTREMITIES: FROM in all major joints, no edema, no cyanosis or clubbing. NEURO: Alert and oriented x 3. No acute neurological deficits. Speech is normal and follows commands. SKIN: Dry and warm Dr. Cunningham saw and evaluated the pt. He recommends the pt to be discharged to home. Pt will be discharged in stable condition to home with a diagnosis of anxiety. Re-Evaluation - Re-Evaluation 02:35 Re-Evaluation Time: 08:10 Comment: Pt is anxious and has SI. Course/Dx - Course Course Of Treatment: The patient is a 51 y/o F with a Hx of prior overdoses and ingestions who is BIB family after report ingestion of too many pills that she usually uses. This pt was signed out by Dr. Mcfarland, pending disposition, awaiting MHE. Pt is medically cleared by Dr. Mcfarland. Pt reports she came to the ED because she is angry after she had a situation at her primary's office with a nurse, where she was dismissed from the practice. Pt is anxious and has SI. Dr. Cunningham saw and evaluated the pt. He recommended dicharge for the pt. - Diagnoses Provider Diagnoses: Anxiety The documentation as recorded by the Jordon orth Angela accurately reflects the service I personally performed and the decisions made by me, Maycol Al MD.
== END 2017-05-19 14:14 ==
LOC: ED 23:17
DX: F41.9 Anxiety disorder, unspecified (principal); R45.851 Suicidal ideations; T50.905A Adverse effect of unspecified drugs, medicaments and biological substances, initial encounter; Y92.9 Unspecified place or not applicable
CPT/HCPCS: 36415; 36600; 70450; 80053; 80307; 80320; 80329; 81003; 82248; 82803; 83605; 84484; 85025; 85610; 99285; G0480; J2310

== ENCOUNTER 2017-05-19 14:31 | Inpatient (IN) | payer MEDICARE, MEDICAID ==
[2017-05-19] MEDS ORDERED: Nicotine Inhaler* 10 MG AMP INH ONE (16:27)
[2017-05-19] MEDS ORDERED: Mouth Piece, Nicotine* 1 EACH CARTRIDGE INH PRN (16:27)
[2017-05-19] MEDS ORDERED: Cyclobenzaprine TAB* 10 MG PO ONE (17:27)
[2017-05-19] MEDS ORDERED: Acetaminophen TAB* 325 MG PO ONE (17:27)
[2017-05-19] MEDS ORDERED: Nicotine GUM* 2 MG PO PRN (23:25)
[2017-05-19] MEDS ORDERED: Al Hydrox/Mg Hydrox/Simet LIQ* 30 ML UDC PO PRN (23:25)
[2017-05-19] MEDS ORDERED: Albuterol HFA INHALER* 8 gm MDI INH PRN (23:49)
[2017-05-19] MEDS ORDERED: Docusate CAP* 100 MG PO PRN (23:50)
[2017-05-20] MEDS ORDERED: Pneumococcal *Vac Polyvalent 0.5 ML VIAL IM ONE (09:00)
[2017-05-20] MEDS: Vitamin THERAPEUTIC TAB PO SCH (09:06)
[2017-05-20] MEDS: Lurasidone(*) 80 MG TAB PO SCH (09:06)
[2017-05-20] MEDS: Levothyroxine TAB* 150 MCG TAB PO SCH (09:08)
[2017-05-20] MEDS: Atorvastatin* 40 MG TAB PO SCH (09:08)
[2017-05-20] MEDS: Omeprazole CAP* 20 MG PO SCH (09:09)
[2017-05-20] MEDS: Sertraline* 50 MG TAB PO SCH (09:09)
[2017-05-20] MEDS: OLANzapine TAB* 2.5 MG PO SCH ×4 (09:09→20:37)
[2017-05-20] MEDS: Levothyroxine TAB* 100 MCG TAB PO SCH (09:09)
[2017-05-20] MEDS: lamoTRIgine TAB(*) 100 MG PO SCH ×3 (09:10→20:35)
[2017-05-20] MEDS: Acetaminophen TAB* 325 MG PO PRN (09:13)
[2017-05-20] MEDS: Cyclobenzaprine TAB* 10 MG PO PRN (09:13)
[2017-05-20] MEDS: Insulin GLARGINE(*) 1 UNITS UNIT SUBCUT SCH ×3 (09:42→21:46)
[2017-05-20] MEDS: Insulin LISPRO* 1 UNITS UNIT SUBCUT SCH ×4 (09:43→21:47)
[2017-05-20] MEDS: Nicotine Inhaler* 10 MG AMP INH PRN (10:07)
--- NOTE | 2017-05-20 12:02 | PN ---
[facility]: Group Therapy Note - Service Type Service Type: [id number] Group Psychotherapy - Cognitive Behavioral Group Therapy ( CBT):Patient attended CBT programming this morning and presented with flat affect that did not vary with discussion. Although responsive to direct prompts to respond to questions, patient did not engage in spontaneous conversation.
[2017-05-20] MEDS: traZODone TAB* 100 MG PO SCH ×2 (15:54→20:36)
[2017-05-20] MEDS ORDERED: Dextrose 50% Syringe 50 ML* 25 GM/50 ML SYRINGE IV PUSH PRN (16:53)
[2017-05-20] MEDS: Ibuprofen TAB* 400 MG PO PRN (17:27)
--- NOTE | 2017-05-20 22:28 | HP ---
HISTORY AND PHYSICAL: DATE OF ADMISSION: 05/19/17 SUPERVISING PSYCHIATRIST: Dr. Raheem Cunningham* (dictated by DILLON Mary) . JUSTIFICATION FOR ADMISSION: The patient came to the emergency department with reports of attempting to overdose on her medications. She also endorse suicidal ideation with a plan to jump off of a bridge, run into traffic, and overdose of her medications. The patient was being evaluated and left the emergency room stating that she wanted to go home. She returned and requested admission due to suicidal ideation. CHIEF COMPLAINT: "I overdosed on my medicines." HISTORY OF PRESENT ILLNESS: The patient is well-known to this fiction and nonfiction prose writer and to this unit due to multiple previous psychiatric hospitalizations, last one being in June of 2016. She has also had multiple state hospitalizations and been a client of [facility] for many years. The patient is pleasant and cooperative in conversation. She reports that she "snapped" due to feeling rejected by her primary care provider. She states that a particular nurse at the office does not like her and that she was told by Dr. Sullivan that she is no longer a patient there. She states that she went home and was feeling very sad about this and took supply of mediations. The patient reports that she has approximately 3 days worth of medications at a time as these are set up by her mother. She endorses depressed mood and feeling hopeless and helpless. She is concerned about ongoing abdominal pain and a need for a colonoscopy. The patient reports that she and her are getting along well. She states that they have an apartment downtown and she enjoys this. She is jovial and laughed when talking about a time when she walked to [employer] and crossed the street with her walker. The patient identifies coping skills that she has learned from DBT and states that she utilizes a tablet at home to look up skills. She denies any current abuse. She states that her and her are doing better than they ever have been. She has a positive relationship with her mother, who also helps Taryn with functioning. While discussing her stressors, the patient reports that she wants to continue primary care through [facility] and that her mother has been contacting administration to resolve this. The patient is also receptive to suggestion by fiction and nonfiction prose writer to identify different primary care if this is going to improve therapeutic relationship and she agrees to this idea. PAST PSYCHIATRIC HISTORY: Multiple hospitalizations to this psychiatric unit, last one being in June of 2016. She has had many medication overdoses and hospitalizations at [facility]. She is a client of [facility]. SUBSTANCE USE HISTORY: Denies. PAST MEDICAL HISTORY: Diabetes mellitus type 2, hypothyroidism, GERD, chronic pancreatitis, irritable bowel, obesity. She reports back pain. Recent diagnosis of herniated disk. CURRENT MEDICATIONS: 1. Atorvastatin. 2. Lipitor 40 mg p.o. daily. 3. Flexeril 10 mg p.o. b.i.d. p.r.n. discussion. 4. Nicotine replacement. 5. Colace 200 mg p.o. daily p.r.n. constipation. 6. Ibuprofen 400 mg p.o. q.6 hours p.r.n. pain, the patient assured me that the ibuprofen allergy listed in the chart is since childhood and no longer appropriate. 7. The patient is on Lantus 70 mg subcu b.i.d. 8. Humalog 10 mg t.i.d. with meals. 9. Lamictal 150 mg p.o. b.i.d. 10. Synthroid 250 mcg p.o. q.a.m. 11. Latuda 80 mg p.o. daily. 12. Olanzapine 7.5 mg p.o. b.i.d. 13. Prilosec 20 mg p.o. q.a.m. 14. Sertraline 150 mg p.o. daily. 15. Trazodone 400 mg p.o. q.h.s. FAMILY PSYCHIATRIC HISTORY: No known blood relatives. Her also has PTSD, depression, and chronic mental illness. SOCIAL HISTORY: The [facility] She is mentally disabled and receives State benefits. PHYSICAL EXAMINATION GENERAL APPEARANCE: The patient is an obese female, who is sitting comfortably on a couch. She is not in any acute pain or distress. VITAL SIGNS: Most recent vital signs, temp 98.0, pulse 76, respiratory rate 18 , O2 saturation 97%, BP 138/73. HEENT: Head and face: No signs of trauma. No ecchymosis, hematomas, or skull depression. No sinus tenderness. Eyes: PERRLA, EOMI. Conjunctiva clear. ENT : Hearing grossly normal. Mouth, oropharynx within normal limits. Mucous membrane moist. NECK: Supple, trachea is midline, full ROM. RESPIRATORY: Chest is symmetric. Lung clear to auscultation. Breath sounds present. CARDIOVASCULAR: Heart regular rate and rhythm. Pulses are equal in upper and lower extremities bilaterally. ABDOMEN: Soft and nontender. Bowel sounds x4. NEUROLOGICAL: Alert and oriented x3. Slow, normal gait with walker. SKIN: Dry, warm, adequate perfusion. MENTAL STATUS EXAM: Taryn is well groomed, has good hygiene and this is in contrast to previous admissions as evidenced by this fiction and nonfiction prose writer. She uses a rolling walker to walk. She has regular rate and rhythm of speech with some mumbling at times, this is not new. She is alert and oriented x3. Her concentration is good. Her eye contact is good. As stated above, her affect has full range. Her thought process is generally linear and goal directed. She is somewhat circumstantial in regards to recent interactions at her primary care office. She reports her mood as "I am okay" and she is able to identify improvement in her coping mechanisms over the years. She denies AV hallucinations or paranoid ideation. She denies current suicidal ideation while on the unit. She denies HI or . She has a history of aggression towards staff, but none recently. She has poor insight and judgement and periods of impaired impulse control. LABORATORY DATA: Obtained in the emergency department, her CBC is grossly unremarkable. H and H is low at 11.1 and 34. INR is low at 0.86. CMP normal with the exception of creatinine 0.99, glucose 210, most recently 322, see below for insulin adjustments. Protein low at 6.0. Urinalysis, cast and glucose present. Toxicology negative for salicylate, acetaminophen and alcohol. Urine drug screen is negative. DIAGNOSES: Major depressive disorder, borderline personality disorder, intellectual disability, diabetes mellitus, gastroesophageal reflux disease, obesity, hypothyroidism. ASSESSMENT: Taryn is a 51-year-old female with an extensive psychiatric history and multiple medical comorbidities. She reported overdose on pills in the context of conflict with the primary care office. She was evaluated in the emergency department and expressed desire to remain safe and go home and she returned shortly thereafter and requested admission due to suicidal ideation. PLAN: Admit to adult behavioral services unit on voluntary status. Code status is full. Safety checks every 15 minutes. Encouraged intensive milieu, individual and groups. Outreach Clinician consulted with the Hospitalist, Dr. Lui, and adjusted insulin orders to sliding scale with fingersticks a.c. and h.s. We will obtain blood work in the morning for hemoglobin A1c and lipids due to SGA treatment. We will also obtain TSH as the most current result was 7.52 on May 12. I will maintain her current outpatient psychiatric medications. The patient agrees to work with the fiction and nonfiction prose writer and social services aide to identify primary care. We will attempt to keep hospitalization brief to avoid exacerbation of borderline personality disorder. Discharge planning will include family per the patient's consent. DILLON MARY [id number]/CPS #: [id number]
[2017-05-21] MEDS: Levothyroxine TAB* 100 MCG TAB PO SCH (05:15)
[2017-05-21] MEDS: Ibuprofen TAB* 400 MG PO PRN ×2 (05:15→15:09)
[2017-05-21] MEDS: Levothyroxine TAB* 150 MCG TAB PO SCH (05:15)
[2017-05-21] MEDS: Cyclobenzaprine TAB* 10 MG PO PRN (05:15)
[2017-05-21] MEDS: Insulin LISPRO* 1 UNITS UNIT SUBCUT SCH ×4 (07:34→20:14)
--- NOTE | 2017-05-21 08:20 | ED ---
Jordon Rosales Angela, scribed for Maycol Al MD on 05/19/17 at 1505 . Psychiatric Complaint - HPI Summary HPI Summary: This pt is a 51 y/o female presenting to [facility] c/o SI without a plan. Pt reports she took "a bunch of pills" yesterday and tried kill herself. Pt states that she "really needs help" and "it seems like nobody cares." She notes that she still feels shaky and dizzy from the pills she took yesterday. Pt reports she is scared for what she might do. Pt was seen earlier today for SI thoughts and signed out AMA. Pt is returning to the ED because she would like get admitted for SI. - History Of Current Complaint Chief Complaint: EDPsychosocial Time Seen by Provider: 05/19/17 14:36 Hx Obtained From: Patient Hx Last Menstrual Period: 09/29/16 ?: No Onset/Duration: Lasting Days, Still Present Timing: Days Character: Fearful, Frustrated Aggravating Factor(s): Nothing Alleviating Factor(s): Nothing Has Suicidal: Reports: Thoughts. Denies: With A Plan Has Homicidal: Denies: Thoughts, With A Plan - Allergies/Home Medications Allergies/Adverse Reactions: Allergies Allergy/AdvReac Type Severity Reaction Status Date / Time Latex Allergy Severe Rash Verified 05/19/17 21:30 Sulfa Antibiotics Allergy Severe Hives Verified 05/19/17 21:30 Penicillins Allergy Intermediate Rash Verified 05/19/17 21:30 Nalbuphine Allergy Unknown Unknown Verified 05/19/17 21:30 Reaction Details Perphenazine Allergy Unknown Unknown Verified 05/19/17 21:30 Reaction Details Ciprofloxacin [From Cipro] AdvReac Severe Dizziness Verified 05/19/17 21:30 Tramadol AdvReac Severe Altered Verified 05/19/17 21:30 Mental Status [place] AdvReac Mild See Comment Verified 05/19/17 21:30 ENVIRONMENTAL Allergy Mild SINUS Uncoded 05/19/17 21:30 PMH/Surg Hx/FS Hx/Imm Hx Endocrine/Hematology History: Reports: Hx Diabetes, Hx Thyroid Disease, Other Endocrine/Hematological Disorders - Chronic pancreatitis Denies: Hx Anticoagulant Therapy Cardiovascular History: Reports: Hx Hypertension, Other Cardiovascular Problems/ Disorders - PER H&P- HX OF PSVT 04/2008 Denies: Hx Pacemaker/ICD Respiratory History: Reports: Hx Asthma, Hx Seasonal Allergies, Hx Sleep Apnea - uses c-pap but hasn't used it for 5 mos due to being broken Denies: Hx Chronic Bronchitis, Hx Chronic Obstructive Pulmonary Disease (COPD ), Hx Cystic Fibrosis, Hx Lung Cancer, Hx Pleural Effusion, Hx Pneumonia, Hx Pulmonary Edema, Hx Pulmonary Embolism, Other Respiratory Problems/Disorders GI History: Reports: Hx Gall Bladder Disease, Hx Gastroesophageal Reflux Disease , Hx Gastrointestinal Bleed, Hx Irritable Bowel, Other GI Disorders - pancreatitis/gastroenteritis Denies: Hx Ulcer History: Denies: Hx Dialysis, Hx Renal Disease Musculoskeletal History: Reports: Hx Arthritis, Hx Back Problems, Other Musculoskeletal History - GEN MUSCULOSKELETAL PAIN Denies: Hx Rheumatoid Arthritis, Hx Bursitis, Hx Congenital Bone Abnormalities, Hx Fibromyalgia, Hx Gout, Hx Orthopedic Injury, Hx Osteoporosis, Hx Scoliosis, Hx Tendonitis Sensory History: Reports: Hx Cataracts, Hx Contacts or Glasses, Hx Vision Problem Denies: Hx Eye Injury, Hx Eye Prosthesis, Hx Glaucoma, Hx Macular Degeneration, Hx Deafness, Hx Hearing Aid, Hx Hearing Problem, Other Sensory Impairments Opthamlomology History: Reports: Hx Cataracts, Hx Contacts or Glasses, Hx Vision Problem Denies: Hx Eye Injury, Hx Eye Prosthesis, Hx Glaucoma, Hx Macular Degeneration, Other Sensory Impairments Neurological History: Reports: Hx Developmental Delay - intellectual disability Denies: Hx Dementia, Hx Seizures, Other Neuro Impairments/Disorders Psychiatric History: Reports: Hx Anxiety, Hx Depression, Hx Post Traumatic Stress Disorder, Hx Inpatient Treatment, Hx Community Mental Health Tx, Hx Bipolar Disorder - pt manic, Hx Suicide Attempt - past med overdoses, Hx of Violent Episodes Against Others, Other Psychiatric Issues/Disorders - PSYCHOSIS NOS, HX OF PTSD, SCHIZOAFFECTIVE DISORDER, BORDERLINE PERSONALITY Denies: Hx Attention Deficit Hyperactivity Disorder, Hx Eating Disorder, Hx Panic Disorder, Hx Schizophrenia, Hx Substance Abuse - Surgical History Surgery Procedure, Year, and Place: 2011-CATARACT EXTRACTION. GALLBLADDER REMOVED . HIP SURGERY ACHILD Hx Anesthesia Reactions: No - Immunization History Date of Tetanus Vaccine: Unknown Date of Influenza Vaccine: 04/2017 Infectious Disease History: No Infectious Disease History: Denies: Hx Clostridium Difficile, Hx Hepatitis, Hx Human Immunodeficiency Virus (HIV), Hx of Known/Suspected MRSA, Hx Shingles, Hx Tuberculosis, Hx Known/ Suspected VRE, Hx Known/Suspected VRSA, History Other Infectious Disease, Traveled Outside the [place] in Last 30 Days - Family History Known Family History: Positive: Other - Anxiety and depression, [place] - father Negative: Cardiac Disease, Hypertension, Diabetes Family History: Depression and anxiety - Social History Alcohol Use: None Hx Substance Use: Yes Substance Use Type: Reports: Prescribed Hx Tobacco Use: Yes Smoking Status (MU): Light Every Day Tobacco Smoker Type: Cigarettes Length of Time of Smoking/Using Tobacco: 2 year ago Have You Smoked in the Last Year: No Review of Systems Positive: Other - shaky. Negative: Fever, Chills Cardiovascular: Negative Respiratory: Negative Gastrointestinal: Negative Genitourinary: Negative Musculoskeletal: Negative Neurological: Other - dizziness Positive: Other - SI thoughts, fearful, and frustrated All Other Systems Reviewed And Are Negative: Yes Physical Exam - Summary Physical Exam Summary: VITAL SIGNS: Reviewed. GENERAL: Patient is a well-developed and nourished female who is lying comfortable in the stretcher. Patient is not in any acute respiratory distress. HEAD AND FACE: No signs of trauma. No ecchymosis, hematomas or skull depressions. No sinus tenderness. EYES: PERRLA, EOMI x 2, No injected conjunctiva, no nystagmus. EARS: Hearing grossly intact. Ear canals and tympanic membranes are within normal limits. MOUTH: Oropharynx within normal limits. NECK: Supple, trachea is midline, no adenopathy, no JVD, no carotid bruit, no c- spine tenderness, neck with full ROM. CHEST: Symmetric, no tenderness at palpation LUNGS: Clear to auscultation bilaterally. No wheezing or crackles. CVS: Regular rate and rhythm, S1 and S2 present, no murmurs or gallops appreciated. ABDOMEN: Soft, non-tender. No signs of distention. No rebound no guarding, and no masses palpated. Bowel sounds are normal. EXTREMITIES: FROM in all major joints, no edema, no cyanosis or clubbing. NEURO: Alert and oriented x 3. No acute neurological deficits. Speech is normal and follows commands. SKIN: Dry and warm PSYCH: Pt has suicidal thoughts. No homicidal thoughts or plan. No signs of psychosis or pressure speech. No tangential speech. Triage Information Reviewed: Yes Vital Signs On Initial Exam: Initial Vitals Temp Pulse Resp BP Pulse Ox 97.1 F 110 17 134/90 99 05/19/17 14:39 05/19/17 14:39 05/19/17 14:39 05/19/17 14:39 05/19/17 14:39 Vital Signs Reviewed: Yes Diagnostics - Vital Signs Vital Signs Temp Pulse Resp BP Pulse Ox 05/19/17 14:39 97.1 F 110 17 134/90 99 - Laboratory Lab Statement: Any lab studies that have been ordered have been reviewed, and results considered in the medical decision making process. Course/Dx - Course Assessment/Plan: This pt is a 51 y/o female presenting to [facility] c/o SI without a plan. Pt reports she took "a bunch of pills" yesterday and tried kill herself. Pt states that she "really needs help" and "it seems like nobody cares. " She notes that she still feels shaky and dizzy from the pills she took yesterday. Pt reports she is scared for what she might do. Pt was seen earlier today for SI thoughts and signed out AMA. Pt is returning to the ED because she would like get admitted for SI. The pt was medically cleared from recent blood work. Pt was seen and evaluated by Dr. Cunningham. He has recommended the pt for transfer to another facility with a diagnosis of mood disorder, unspecified. - Differential Dx/Clinical Impression Differential Diagnosis/HQI/PQRI: Positive: Anxiety, Depression, Suicidal Ideation Provider Diagnosis: mood disorder, unspecified Discharge - Discharge Plan Condition: Stable Disposition: TRANS HIGHER LVL OF CARE FAC The documentation as recorded by the Jordon roth Angela accurately reflects the service I personally performed and the decisions made by me, Maycol Al MD.
[2017-05-21] MEDS: Lurasidone(*) 80 MG TAB PO SCH (08:57)
[2017-05-21] MEDS: OLANzapine TAB* 2.5 MG PO SCH ×2 (08:57→20:16)
[2017-05-21] MEDS: Vitamin THERAPEUTIC TAB PO SCH (08:58)
[2017-05-21] MEDS: Sertraline* 50 MG TAB PO SCH (08:58)
[2017-05-21] MEDS: Omeprazole CAP* 20 MG PO SCH (08:58)
[2017-05-21] MEDS: lamoTRIgine TAB(*) 100 MG PO SCH ×2 (08:59→20:17)
[2017-05-21] MEDS: Atorvastatin* 40 MG TAB PO SCH (08:59)
[2017-05-21] MEDS: Insulin GLARGINE(*) 1 UNITS UNIT SUBCUT SCH ×2 (09:02→20:17)
[2017-05-21] MEDS: Nicotine Inhaler* 10 MG AMP INH PRN (09:04)
[2017-05-21] MEDS: Acetaminophen TAB* 325 MG PO PRN (10:06)
[2017-05-21] MEDS: Docusate CAP* 100 MG PO PRN (15:09)
--- NOTE | 2017-05-21 16:21 | PN ---
Subjective - Subjective Service Type: 56295 Hosp care 15 min low complexity Subjective: The patient is calm and cooperative. Still fixated and upset about her "firing " from the [facility] here in [facility]. She denies SI or thoughts or harming herself. Objective - Appearance Appearance: Obese Dysmorphic Features: No Hygiene: Normal Grooming: Fairly Well Kept - Behavior Psychomotor Activities: Normal Exhibits Abnormal Movement: No - Attitude and Relatedness Attitude and Relatedness: Cooperative Eye Contact: Good - Speech Quality: Unpressured Latencies: Normal Quantity: Appropriate - Mood Patient's Decription of Mood: "Fine" - Affect Observed Affect: Fair Affect Consistent with: Euthymia - Thought Process Patient's Thought Process: Coherent Thought Content: No Passive Wish, No Suicidal Planning, No Homicidal Ideation, No Paranoid Ideation - Sensorium Experiencing Hallucinations: No, Sensorium is Clear Type of Hallucinations: Visual: Yes, Auditory: Yes, Command: Yes - Level of Consciousness Level of Consciousness: Alert Orientation: Yes Intact, Yes Orientated to Time, Yes Orientated to Place, Yes Orientated to Person - Impulse Control Impulse Control: Tenuous - Insight and Judgement Insight and Judgement: Fair - Group Participation Particating in Group Activities: Yes - Medication Management Medication Management Adherence: Yes Assessment - Assessment Merits Inpatient Hospitalization: Consolidate Improvements, Pending Safe DC Plan Inpatient DSM-IV Dx: Unspecified Mood DO Clinical Impression: 51 y.o. , white female with a history of chronic mood instability, early life trauma and primitive borderline personality, well-known to this unit due to multiple past psychiatric admissions, arrives seeking inpatient treatment for suicidal thoughts/intentions in the context of recent change in outpatient primary care situation. Plan - Plan Treatment Plan: Name: CECILIO ALFARO Birthdate: 1965 [id number] The patient has been continued on her outpatient medical and psychiatric regimen. She is improving with conservative milieu care and will likely be discharged to home shortly. Will reconnect with appropriate outpatient medical services. Continued Medication Management: Continue Outpt Medication Medications: Current Medications Acetaminophen (Tylenol Tab*) 650 mg PO Q4H PRN PRN Reason: PAIN or TEMP > 101 F Last Admin: 05/21/17 10:06 Dose: 650 mg Al Hydrox/Mg Hydrox/Simethicone (Maalox Plus*) 30 ml PO Q4H PRN PRN Reason: INDIGESTION Albuterol (Ventolin Hfa Inhaler*) 2 puff INH Q4H PRN PRN Reason: SHORTNESS OF BREATH Atorvastatin Calcium (Lipitor*) 40 mg PO DAILY [facility] Last Admin: 05/21/17 08:59 Dose: 40 mg Cyclobenzaprine HCl (Flexeril Tab*) 10 mg PO BID PRN PRN Reason: MD DISCRETION Last Admin: 05/21/17 05:15 Dose: 10 mg Device (Nicotine Mouth Piece*) 1 each INH .USE WITH NICOTROL PRN PRN Reason: CRAVING Last Admin: 05/19/17 16:53 Dose: 1 each Dextrose (D50w Syringe 50 Ml*) 12.5 gm IV PUSH .FOR FS < 60 - SS PRN PRN Reason: FS < 60 Docusate Sodium (Colace Cap*) 100 mg PO BID PRN PRN Reason: CONSTIPATION Last Admin: 05/21/17 15:09 Dose: 100 mg Ibuprofen (Motrin Tab*) 400 mg PO Q6H PRN PRN Reason: PAIN Last Admin: 05/21/17 15:09 Dose: 400 mg Insulin Glargine (Lantus(*)) 50 units SUBCUT BID [facility] Last Admin: 05/21/17 09:02 Dose: 50 units Insulin Human Lispro (Humalog*) 0 units SUBCUT [facility] PRN Reason: Protocol Last Admin: 05/21/17 12:11 Dose: 8 units Lamotrigine (Lamictal Tab(*)) 150 mg PO BID [facility] Last Admin: 05/21/17 08:59 Dose: 150 mg Levothyroxine Sodium (Synthroid Tab*) 150 mcg PO DAILY@0600 [facility] Last Admin: 05/21/17 05:15 Dose: 150 mcg Levothyroxine Sodium (Synthroid Tab*) 100 mcg PO DAILY@0600 [facility] Last Admin: 05/21/17 05:15 Dose: 100 mcg Lurasidone HCl (Latuda) 80 mg PO DAILY [facility] Last Admin: 05/21/17 08:57 Dose: 80 mg Multivitamins (Theragran Tab*) 1 tab PO DAILY [facility] Last Admin: 05/21/17 08:58 Dose: 1 tab Nicotine (Nicotine Inhaler*) 10 mg INH Q2H PRN PRN Reason: CRAVING Last Admin: 05/21/17 09:04 Dose: 10 mg Nicotine Polacrilex (Nicotine Gum*) 2 mg PO Q2H PRN PRN Reason: CRAVING Olanzapine (Zyprexa Tab*) 7.5 mg PO BID [facility] Last Admin: 05/21/17 08:57 Dose: 7.5 mg Omeprazole (Prilosec Cap*) 20 mg PO QAM [facility] Last Admin: 05/21/17 08:58 Dose: 20 mg Sertraline HCl (Zoloft*) 150 mg PO DAILY [facility] Last Admin: 05/21/17 08:58 Dose: 150 mg Trazodone HCl (Desyrel Tab*) 400 mg PO BEDTIME [facility] Last Admin: 05/20/17 20:36 Dose: 400 mg - Discharge Plan Discharge Plan: Outpatient Follow Up Outpatient Program: [facility]
[2017-05-21] MEDS: traZODone TAB* 100 MG PO SCH (20:16)
[2017-05-22] MEDS: Ibuprofen TAB* 400 MG PO PRN ×2 (01:56→20:22)
[2017-05-22] MEDS: Acetaminophen TAB* 325 MG PO PRN (01:56)
[2017-05-22 08:25] LABS: HDL Cholesterol 44.5 mg/dL
[2017-05-22 08:52] LABS: TSH (Thyroid Stimulating Horm) 2.96 mcIU/mL (0.34-5.60)
[2017-05-22] MEDS: Levothyroxine TAB* 150 MCG TAB PO SCH (09:00)
[2017-05-22] MEDS: Omeprazole CAP* 20 MG PO SCH (09:00)
[2017-05-22] MEDS: Atorvastatin* 40 MG TAB PO SCH (09:00)
[2017-05-22] MEDS: Levothyroxine TAB* 100 MCG TAB PO SCH (09:00)
[2017-05-22] MEDS: Vitamin THERAPEUTIC TAB PO SCH (09:01)
[2017-05-22] MEDS: Lurasidone(*) 80 MG TAB PO SCH (09:01)
[2017-05-22] MEDS: Sertraline* 50 MG TAB PO SCH (09:01)
[2017-05-22] MEDS: OLANzapine TAB* 2.5 MG PO SCH ×2 (09:02→20:22)
[2017-05-22] MEDS: lamoTRIgine TAB(*) 100 MG PO SCH ×2 (09:02→20:23)
[2017-05-22] MEDS: Insulin GLARGINE(*) 1 UNITS UNIT SUBCUT SCH ×2 (09:04→21:10)
[2017-05-22] MEDS: Cyclobenzaprine TAB* 10 MG PO PRN ×2 (09:06→20:23)
[2017-05-22] MEDS: Insulin LISPRO* 1 UNITS UNIT SUBCUT SCH ×4 (09:16→21:11)
[2017-05-22] MEDS: traZODone TAB* 100 MG PO SCH (20:22)
[2017-05-23] MEDS: Insulin LISPRO* 1 UNITS UNIT SUBCUT SCH ×2 (08:16→13:15)
[2017-05-23] MEDS: Insulin GLARGINE(*) 1 UNITS UNIT SUBCUT SCH (08:17)
[2017-05-23 08:34] VITALS: BP 147/86
[2017-05-23] MEDS: Nicotine Inhaler* 10 MG AMP INH PRN (08:41)
[2017-05-23] MEDS: Cyclobenzaprine TAB* 10 MG PO PRN (08:41)
[2017-05-23] MEDS: Vitamin THERAPEUTIC TAB PO SCH (08:42)
[2017-05-23] MEDS: Omeprazole CAP* 20 MG PO SCH (08:43)
[2017-05-23] MEDS: Levothyroxine TAB* 100 MCG TAB PO SCH (08:43)
[2017-05-23] MEDS: Sertraline* 50 MG TAB PO SCH (08:43)
[2017-05-23] MEDS: OLANzapine TAB* 2.5 MG PO SCH (08:43)
[2017-05-23] MEDS: Lurasidone(*) 80 MG TAB PO SCH (08:45)
[2017-05-23] MEDS: Levothyroxine TAB* 150 MCG TAB PO SCH (08:45)
[2017-05-23] MEDS: lamoTRIgine TAB(*) 100 MG PO SCH (08:45)
[2017-05-23] MEDS: Atorvastatin* 40 MG TAB PO SCH (08:45)
[2017-05-23] MEDS: Docusate CAP* 100 MG PO PRN (11:05)
[2017-05-23] MEDS: Ibuprofen TAB* 400 MG PO PRN (11:05)
--- NOTE | 2017-05-23 15:51 | DS ---
Subjective - Subjective Service Types: [id number] [facility] Day Mgmt simple under 30 min Discharge Date: 05/23/17 Subjective: Taryn reports improved mood and denies suicidal ideation. She reports that her main stressor is "the situation" with her primary care provider, Dr Sullivan discontinuing services. Taryn is receptive to suggestions to allow staff to identify a new PCP with her. She states she is concerned about GI distress- alternating constipation and loose BMs. She states she is currently feeling constipated. She is receptive to suggestion to utilize colace, as it is ordered prn. She states she is having lower back pain, which is not a new symptom. She states she would like to return to her own bed at home. Objective - Appearance Appearance: Obese Dysmorphic Features: No Hygiene: Normal Grooming: Fairly Well Kept - Behavior Psychomotor Activities: Normal Exhibits Abnormal Movement: No - Attitude and Relatedness Attitude and Relatedness: Cooperative Eye Contact: Good - Speech Quality: Unpressured Latencies: Normal Quantity: Appropriate - Mood Patient's Decription of Mood: "stressed" - Affect Observed Affect: Good Affect Consistent with: Euthymia - Thought Process Patient's Thought Process: Coherent, Goal Directed, Circumstantial - primary care Thought Content: No Passive Wish, No Suicidal Planning, No Homicidal Ideation, No Paranoid Ideation - Sensorium Experiencing Hallucinations: No, Sensorium is Clear Type of Hallucinations: Visual: No, Auditory: No, Command: No - Level of Consciousness Level of Consciousness: Alert Orientation: Yes Intact, Yes Orientated to Time, Yes Orientated to Place, Yes Orientated to Person - Impulse Control Impulse Control: Intact - Insight and Judgement Insight and Judgement: Fair - Group Participation Particating in Group Activities: Yes - Medication Management Medication Management Adherence: Yes Treatment Course & Assessment Clinical Course & Impression: Patient is a 51-yo female, mentally disabled, , domiciled. 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 Her last admission was in june 2016. She presented to the ED with c/o depression and suicidal ideation in the context of being terminated from her PCP. She was evaluated in the ED and discharged, per her request. She returned momentarily requesting admission to the [facility]. Patient was admitted on voluntary status and remained on current outpatient psychiatric medication regimen. [employer] Rep[employer] consulted with hospitalist, Dr Lui, and adjusted insulin coverage. Patient was meal, group and medication compliant. She was calm and in behavioral control. Patient was engaged in conversation with staff and peers, noted to be jovial at times. Patient received referral to Dr Quesada for endocrinology and [facility] for primary care. She reported much relief from stress and requested to be discharged. She was safe on all checks and denied suicidal ideation. Merits Inpatient Hospitalization: No Clear for Discharge: Adequate Clinical Respons, Acceptable Safety Profile Inpatient DSM-IV Dx: Unspecified Mood DO - [place] Mental Illness: unspecified depressive d/o; borderline personality d/o; intellectual disability - [place] Medical Illness: GERD; diabetes mellitus type 2; obesity; chronic pancreatitis; IBS; chronic back pain Discharge Planning - Discharge Planning Discharge Plan: Outpatient Follow Up Outpatient Program: [facility] Recommendations for Continuing Care: Medication Management, Psychotherapy, Routine Metabolic Monitoring, Primary Care Followup, Specialty Followup Medications: Albuterol HFA INHALER* [Ventolin HFA Inhaler*] 2 puff INH Q4HR PRN 04/21/15 [ History Confirmed 05/19/17] Docusate CAP* [Colace Cap*] 200 mg PO DAILY PRN 04/21/15 [History Confirmed ] Insulin GLARGINE(*) [Lantus(*)] 70 units SUBCUT BID 06/18/16 [History Confirmed 05/19/17] Insulin Aspart PEN(NF) [Novolog Flexpen(NF)] 10 unit SUBCUT TID WITH MEALS 07/13 [History Confirmed 05/19/17] Atorvastatin* [Lipitor 40 MG*] 40 mg PO DAILY 02/15/17 [History Confirmed ] Cyclobenzaprine TAB* [Flexeril 10 MG TAB*] 10 mg PO BID PRN 02/15/17 [History Confirmed 05/19/17] Levothyroxine TAB* [Synthroid 100 MCG TAB*] 200 mcg PO QAM 02/15/17 [History Confirmed 05/19/17] Levothyroxine TAB* [Synthroid TAB*] 50 mcg PO QAM 02/15/17 [History Confirmed ] traZODone TAB* [Desyrel TAB*] 400 mg PO BEDTIME 02/15/17 [History Confirmed ] Lamotrigine [Lamictal] 150 mg PO BID 03/29/17 [History Confirmed 05/19/17] Lurasidone(*) [Latuda] 80 mg PO DAILY 03/29/17 [History Confirmed 05/19/17] OLANzapine TAB* [Zyprexa 5 MG TAB*] 7.5 mg PO BID 03/29/17 [History Confirmed ] Pantoprazole TAB (NF) [Protonix TAB (NF)] 40 mg PO DAILY #30 tab 04/07/17 [Rx Confirmed 05/19/17] Ibuprofen TAB* [Motrin TAB* 600 MG] 600 mg PO Q8H 05/19/17 [History Confirmed ] Sertraline* [Zoloft*] 150 mg PO DAILY 05/19/17 [History Confirmed 05/19/17] Nicotine GUM* 2 mg PO Q2H PRN #1 box 05/23/17 [Rx] Discharge Planning: Prescriptions provided for discharge [x] Yes [] No Follow up care details as per social work arrangements. Patient response to discharge plan: [x] eager for discharge [x] agreeable with discharge plan [] ambivalent about discharge [] disagrees with discharge today
== END 2017-05-23 15:00 | disposition home or self-care (01) | DRG 881 ==
LOC: ED 14:31 → BSU 22:04
PROVIDERS: ADMIT Psychiatry & Neurology Psychiatry; ATTEND Psychiatry & Neurology Psychiatry
DX: F32.9 Major depressive disorder, single episode, unspecified (principal); F79 Unspecified intellectual disabilities; E11.9 Type 2 diabetes mellitus without complications; E66.01 Morbid (severe) obesity due to excess calories; K86.1 Other chronic pancreatitis; R45.851 Suicidal ideations; F60.3 Borderline personality disorder; K21.9 Gastro-esophageal reflux disease without esophagitis; Z68.39 Body mass index [BMI] 39.0-39.9, adult; K58.9 Irritable bowel syndrome, unspecified; M54.89 Other dorsalgia; E03.9 Hypothyroidism, unspecified; Z79.1 Long term (current) use of non-steroidal anti-inflammatories (NSAID); Z79.899 Other long term (current) drug therapy; Z79.84 Long term (current) use of oral hypoglycemic drugs
CPT/HCPCS: 36415; 36600; 70450; 80053; 80061; 80307; 80320; 80329; 81003; 82248; 82803; 82947; 83036; 83605; 84443; 84484; 85025; 85610; 90732; 90853; 99222; 99231; 99238; A9270-GY; G0480; J2310

== ENCOUNTER 2017-05-24 12:30 | Emergency (ER) | payer MEDICARE, MEDICAID ==
[2017-05-24 12:45] VITALS: BP 130/70
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
--- NOTE | 2017-06-18 10:55 | UC ---
Jordon Rosales Angela, scribed for Tri Vale MD on 05/24/17 at 1348 . Upper Extremity HPI - HPI Summary HPI Summary: This pt is a 51 y/o female presenting to [facility] c/o worsening left hand swelling x4 days. Pt notes she feels "electric fence" shocks in her knuckle in the 3rd left finger and radiates up her hand. Pt also notes some pain in her 4th left finger. She reports tingling in all her left fingers. Pt notes she hit the window of one of the rooms while in the ED with her left hand 4 days ago. Her pain is aggravated when putting her hand down. Pt states she has had carpal tunnel once before, and reports that this feels like this. Pt denies SI or HI. PCP is Dr. Sullivan. Pt is right-handed. - History of Current Complaint Chief Complaint: UCUpperExtremity Stated Complaint: HAND PAIN Hx Obtained From: Patient Hx Last Menstrual Period: 09/29/16 Onset/Duration: Lasting Days, Still Present Pain Intensity: 8 Pain Scale Used: 0-10 Numeric Location Of Pain: Is Discrete @ - left hand Character: Unable to Describe - "electric fence" feeling Aggravating Factor(s): Other - putting her hand down. Alleviating Factor(s): Nothing Associated Signs And Symptoms: Positive: Swelling, Numbness/Tingling - in all her left fingers Related History: Dominant Hand Right - Allergies/Home Medications Allergies/Adverse Reactions: Allergies Allergy/AdvReac Type Severity Reaction Status Date / Time Latex Allergy Severe Rash Verified 05/27/17 12:13 Sulfa Antibiotics Allergy Severe Hives Verified 05/27/17 12:13 Penicillins Allergy Intermediate Rash Verified 05/27/17 12:13 Nalbuphine Allergy Unknown Unknown Verified 05/27/17 12:13 Reaction Details Perphenazine Allergy Unknown Unknown Verified 05/27/17 12:13 Reaction Details Ciprofloxacin [From Cipro] AdvReac Severe Dizziness Verified 05/27/17 12:13 Tramadol AdvReac Severe Altered Verified 05/27/17 12:19 Mental Status Ke[place] AdvReac Mild See Comment Verified 05/27/17 12:13 ENVIRONMENTAL Allergy Mild SINUS Uncoded 05/27/17 12:13 PMH/Surg Hx/FS Hx/Imm Hx Endocrine History: Diabetes - type 2, Thyroid Disease Cardiovascular History: Hypertension Respiratory History: Asthma Other History Of: Negative For: Anticoagulant Therapy - Surgical History Surgical History: Yes Surgery Procedure, Year, and Place: 2011-CATARACT EXTRACTION. GALLBLADDER REMOVED . HIP SURGERY ACHILD - Family History Known Family History: Positive: Other - Anxiety and depression, [place] - father Negative: Cardiac Disease, Hypertension, Diabetes Family History: Depression and anxiety - Social History Lives: With Family - Alcohol Use: None Substance Use Type: Prescribed Smoking Status (MU): Light Every Day Tobacco Smoker Type: Cigarettes Amount Used/How Often: Quit for 2 years, but started again in March. 08/02 PPD Length of Time of Smoking/Using Tobacco: 2 year ago Have You Smoked in the Last Year: No Household Exposure Type: Cigarettes - Immunization History Most Recent Influenza Vaccination: Within the past month or two at [facility] Most Recent Tetanus Shot: Unsure Most Recent Pneumonia Vaccination: 04/20/2006 Review of Systems Constitutional: Negative Skin: Negative Eyes: Negative ENT: Negative Respiratory: Negative Cardiovascular: Negative Gastrointestinal: Negative Genitourinary: Negative Motor: Negative Neurovascular: Negative Musculoskeletal: Other: - left hand pain. left hand "electric fence" shocks. Neurological: Paresthesia - tingling in left fingers. Psychological: Negative All Other Systems Reviewed And Are Negative: Yes Physical Exam Triage Information Reviewed: Yes Appearance: Well-Nourished Vital Signs: Initial Vital Signs Temp 96.5 F 05/24/17 12:41 Pulse 100 05/24/17 12:41 Resp 18 05/24/17 12:41 BP 130/70 05/24/17 12:41 Pulse Ox 98 05/24/17 12:41 Vital Signs Reviewed: Yes Eye Exam: Normal ENT Exam: Normal Respiratory Exam: Normal Respiratory: Positive: Chest non-tender, Lungs clear, Normal breath sounds, No respiratory distress, No accessory muscle use Cardiovascular Exam: Normal Cardiovascular: Positive: RRR, No Murmur, Pulses Normal, Brisk Capillary Refill Abdominal Exam: Normal Abdomen Description: Positive: Nontender, No Organomegaly, Soft Bowel Sounds: Positive: Present Musculoskeletal: Positive: Other: - LUE: tenderness in the 3rd and 4th left metarcarpal, mostly proximal. There are a couple of wounds c/w IV insertion on the left hand. No cellulitis, fluctuance, crepitus, nor point tendeness. There is tenderness in the median portion of the left wrist. Dysesthesia distal fingers - exact extent and degree of dysesthesia is difficult to ascertain, pt is a poor historian, and examination is unclear. There is some tenderness to median elbow and forearm with tapping pressure. + rad adn + ulnar pulses are palbable with good distal cap refill. Fingernails to both hands - noteworthy for + onchorrhexis. Neurological Exam: Normal - nonfocal, grossly intact Psychological Exam: Normal - conversing easily and appropriately Skin Exam: Normal - no visible or reported rash. Diagnostics - Radiology Left hand XR Xray Interpretation: No Acute Changes - IMPRESSION: no fractiure of left hand is noted. ED physician has reviewed this radiology report and agrees. Radiology Interpretation Completed By: Radiologist Left wrist XR Xray Interpretation: No Acute Changes - IMPRESSION: No acute osseous injury. If symptoms persist, recommend repeat imaging. ED physician has reviewed this radiology report and agrees. Radiology Interpretation Completed By: Radiologist Upper Extremity Course/Dx - Course Course Of Treatment: Reviewed discharge summary from Ms. Schulz's most recent admission. While reviewed ROS, Ms. Schulz specifically denies current suicidal or homicidal ideation. Re discomfort - while the examination is difficult and inconsistent with repeat evaluation, there certainly is suspicion for possible CTS. As such, will refer to pcp also to orthopedic / hand specialist. Ms. Schulz seems pleased with this. Questions as posed answered to the best of my ability. - Differential Dx/Diagnosis Provider Diagnoses: Left hand / wrist pain, consider carpal tunnel syndrome Discharge - Discharge Plan Condition: Stable Disposition: HOME Patient Education Materials: Peripheral Neuropathy (ED), Hematoma (ED) Referrals: Melody Nelson MD [Medical Doctor] - Gabo Sullivan MD [Primary Care Provider] - Additional Instructions: Please follow up with orthopedic surgeon (hand specialist) in the next 1-2 weeks. Dorsal hand hematoma (bruise), likely from IV location(s). Suspect Carpal Tunnel Syndrome. Please follow up with primary care physician as soon as you are able, if possible in the next 1-2 weeks. Sling as needed for comfort. Splint as needed for comfort. The documentation as recorded by the Jordon roth Angela accurately reflects the service I personally performed and the decisions made by me, Tri Vale MD.
== END 2017-05-24 14:48 | disposition home or self-care (01) ==
LOC: UCEAST 12:30
DX: M79.642 Pain in left hand (principal); M25.532 Pain in left wrist; E11.9 Type 2 diabetes mellitus without complications; E07.9 Disorder of thyroid, unspecified; I10 Essential (primary) hypertension; J45.909 Unspecified asthma, uncomplicated; Z90.49 Acquired absence of other specified parts of digestive tract; Z98.49 Cataract extraction status, unspecified eye; Z88.5 Allergy status to narcotic agent; Z88.0 Allergy status to penicillin; Z88.2 Allergy status to sulfonamides; Z88.8 Allergy status to other drugs, medicaments and biological substances; Z88.1 Allergy status to other antibiotic agents; Z91.040 Latex allergy status; F17.210 Nicotine dependence, cigarettes, uncomplicated
CPT/HCPCS: 99213; G0463

== ENCOUNTER 2017-05-24 20:50 | Emergency (ER) | payer MEDICARE, MEDICAID ==
[2017-05-24 22:42] LABS: Urine Bacteria 1+ (Absent); Urine Bilirubin Negative (Negative); Urine Glucose Negative (Negative); Urine Nitrite Negative (Negative)
[2017-05-24 22:45] LABS: Benzodiazepine Urine Screen None Detected (None Detect)
[2017-05-24 22:50] LABS: Hematocrit 36 % (35-47); Hemoglobin 11.9 g/dl (12.0-16.0); Mean Corpuscular HGB Conc 33 g/dl (31-36); Mean Corpuscular Hemoglobin 26 pg (27-31); Mean Corpuscular Volume 80 fL (80-97); Mean Platelet Volume 9 um3 (7.4-10.4); Red Blood Count 4.53 10^6/ul (4.0-5.4); Red Cell Distribution Width 18 % (10.5-15); White Blood Count 12.7 10^3/ul (3.5-10.8)
--- NOTE | 2017-05-24 23:01 | ED ---
Nicky Rosales Alfonso, scribed for Nathaniel Haro MD on 05/24/17 at 2138 . Psychiatric Complaint - HPI Summary HPI Summary: This patient is a 51 year old F BIBA to [facility] with a chief complaint of SI since a few days ago. The patient rates the sharp pain 7/10 in severity. Symptoms aggravated by recent stress (a physician would no longer see her). Symptoms alleviated by nothing. Patient reports impulsivity, and left hand pain (LUE is in a sling). Patient denies substance use. - History Of Current Complaint Chief Complaint: EDMentalHealth Time Seen by Provider: 05/24/17 21:19 Hx Obtained From: Patient Onset/Duration: Gradual Onset, Lasting Days, Still Present, Resolved Timing: Constant Aggravating Factor(s): Recent Stress Alleviating Factor(s): Nothing Has Suicidal: Reports: Thoughts Recent Stressor(s): (a physician would no longer see her). - Allergies/Home Medications Allergies/Adverse Reactions: Allergies Allergy/AdvReac Type Severity Reaction Status Date / Time Latex Allergy Severe Rash Verified 05/24/17 12:45 Sulfa Antibiotics Allergy Severe Hives Verified 05/24/17 12:45 Penicillins Allergy Intermediate Rash Verified 05/24/17 12:45 Nalbuphine Allergy Unknown Unknown Verified 05/24/17 12:45 Reaction Details Perphenazine Allergy Unknown Unknown Verified 05/24/17 12:45 Reaction Details Ciprofloxacin [From Cipro] AdvReac Severe Dizziness Verified 05/24/17 12:45 Tramadol AdvReac Severe Altered Verified 05/24/17 12:45 Mental Status [place] AdvReac Mild See Comment Verified 05/24/17 12:45 ENVIRONMENTAL Allergy Mild SINUS Uncoded 05/24/17 12:45 PMH/Surg Hx/FS Hx/Imm Hx Endocrine/Hematology History: Reports: Hx Diabetes - type 2, Hx Thyroid Disease , Other Endocrine/Hematological Disorders - Chronic pancreatitis Denies: Hx Anticoagulant Therapy Cardiovascular History: Reports: Hx Hypertension, Other Cardiovascular Problems/ Disorders - PER H&P- HX OF PSVT 04/2008 Denies: Hx Pacemaker/ICD Respiratory History: Reports: Hx Asthma, Hx Seasonal Allergies, Hx Sleep Apnea - uses c-pap but hasn't used it for 5 mos due to being broken Denies: Hx Chronic Bronchitis, Hx Chronic Obstructive Pulmonary Disease (COPD ), Hx Cystic Fibrosis, Hx Lung Cancer, Hx Pleural Effusion, Hx Pneumonia, Hx Pulmonary Edema, Hx Pulmonary Embolism, Other Respiratory Problems/Disorders GI History: Reports: Hx Gall Bladder Disease, Hx Gastroesophageal Reflux Disease , Hx Gastrointestinal Bleed, Hx Irritable Bowel, Other GI Disorders - pancreatitis/gastroenteritis Denies: Hx Ulcer History: Denies: Hx Dialysis, Hx Renal Disease Musculoskeletal History: Reports: Hx Arthritis, Hx Back Problems, Other Musculoskeletal History - GEN MUSCULOSKELETAL PAIN Denies: Hx Rheumatoid Arthritis, Hx Bursitis, Hx Congenital Bone Abnormalities, Hx Fibromyalgia, Hx Gout, Hx Orthopedic Injury, Hx Osteoporosis, Hx Scoliosis, Hx Tendonitis Sensory History: Reports: Hx Cataracts, Hx Contacts or Glasses, Hx Vision Problem Denies: Hx Eye Injury, Hx Eye Prosthesis, Hx Glaucoma, Hx Macular Degeneration, Hx Deafness, Hx Hearing Aid, Hx Hearing Problem, Other Sensory Impairments Opthamlomology History: Reports: Hx Cataracts, Hx Contacts or Glasses, Hx Vision Problem Denies: Hx Eye Injury, Hx Eye Prosthesis, Hx Glaucoma, Hx Macular Degeneration, Other Sensory Impairments Neurological History: Reports: Hx Developmental Delay - intellectual disability Denies: Hx Dementia, Hx Seizures, Other Neuro Impairments/Disorders Psychiatric History: Reports: Hx Anxiety, Hx Depression, Hx Post Traumatic Stress Disorder, Hx Inpatient Treatment, Hx Community Mental Health Tx, Hx Bipolar Disorder - pt manic, Hx Suicide Attempt - past med overdoses, Hx of Violent Episodes Against Others, Other Psychiatric Issues/Disorders - PSYCHOSIS NOS, HX OF PTSD, SCHIZOAFFECTIVE DISORDER, BORDERLINE PERSONALITY Denies: Hx Attention Deficit Hyperactivity Disorder, Hx Eating Disorder, Hx Panic Disorder, Hx Schizophrenia, Hx Substance Abuse - Surgical History Surgery Procedure, Year, and Place: 2011-CATARACT EXTRACTION. GALLBLADDER REMOVED . HIP SURGERY ACHILD Hx Anesthesia Reactions: No - Immunization History Date of Tetanus Vaccine: Unknown Date of Influenza Vaccine: 04/2017 Infectious Disease History: No Infectious Disease History: Denies: Hx Clostridium Difficile, Hx Hepatitis, Hx Human Immunodeficiency Virus (HIV), Hx of Known/Suspected MRSA, Hx Shingles, Hx Tuberculosis, Hx Known/ Suspected VRE, Hx Known/Suspected VRSA, History Other Infectious Disease, Traveled Outside the [place] in Last 30 Days - Family History Known Family History: Positive: Other - Anxiety and depression, [place] - father Negative: Cardiac Disease, Hypertension, Diabetes Family History: Depression and anxiety - Social History Alcohol Use: None Hx Substance Use: Yes Substance Use Type: Reports: None Hx Tobacco Use: Yes Smoking Status (MU): Light Every Day Tobacco Smoker Type: Cigarettes Amount Used/How Often: Quit for 2 years, but started again in March. 1/2 PPD Length of Time of Smoking/Using Tobacco: 2 year ago Have You Smoked in the Last Year: No Review of Systems Negative: Fever Positive: Other - left hand pain (LUE is in a sling). Psychological: Other - SI, impulsivity All Other Systems Reviewed And Are Negative: Yes Physical Exam - Summary Physical Exam Summary: General: well-appearing, no pain distress Skin: warm, color reflects adequate perfusion, dry Head: normal Eyes: EOMI, JENNIFER ENT: normal Neck: supple, nontender Respiratory: CTA, breath sounds present Cardiovascular: RRR Abdomen: soft, nontender Bowel: present Musculoskeletal: Left arm is in a sling Neurological: normal, sensory/motor intact, A&O x3 Psychological: affect/mood appropriate Triage Information Reviewed: Yes Vital Signs On Initial Exam: Initial Vitals Temp Pulse Resp BP Pulse Ox 98.8 F 105 18 163/95 100 05/24/17 20:53 05/24/17 20:53 05/24/17 20:53 05/24/17 20:53 05/24/17 20:53 Vital Signs Reviewed: Yes - Kriss Coma Scale Coma Scale Total: 15 Diagnostics - Vital Signs Vital Signs Temp Pulse Resp BP Pulse Ox 05/24/17 20:53 98.8 F 105 18 163/95 100 - Laboratory Lab Results: Lab Results 05/24/17 05/24/17 05/24/17 Range/Units 22:10 22:10 22:31 WBC 12.7 H (3.5-10.8) 10^3/ul RBC 4.53 (4.0-5.4) 10^6/ul Hgb 11.9 L (12.0-16.0) g/dl Hct 36 (35-47) % MCV 80 (80-97) fL MCH 26 L (27-31) pg MCHC 33 (31-36) g/dl RDW 18 H (10.5-15) % Plt Count 255 (150-450) 10^3/ul MPV 9 (7.4-10.4) um3 Neut % (Auto) 68.2 (38-83) % Lymph % (Auto) 23.4 L (25-47) % Ector % (Auto) 4.6 (1-9) % Eos % (Auto) 3.0 (0-6) % Baso % (Auto) 0.8 (0-2) % Absolute Neuts (auto) 8.6 H (1.5-7.7) 10^3/ul Absolute Lymphs (auto) 3.0 (1.0-4.8) 10^3/ul Absolute Monos (auto) 0.6 (0-0.8) 10^3/ul Absolute Eos (auto) 0.4 (0-0.6) 10^3/ul Absolute Basos (auto) 0.1 (0-0.2) 10^3/ul Absolute Nucleated RBC 0 10^3/ul Nucleated RBC % 0 Urine Color Yellow Urine Appearance Cloudy Urine pH 5.0 (5-9) Ur Specific Hawley 1.010 (1.010-1.030) Urine Protein Negative (Negative) Urine Ketones Negative (Negative) Urine Blood Negative (Negative) Urine Nitrate Negative (Negative) Urine Bilirubin Negative (Negative) Urine Urobilinogen Negative (Negative) Ur Leukocyte Esterase 1+ H (Negative) Urine WBC (Auto) 1+(6-10/hpf) H (Absent) Urine RBC (Auto) 2+(6-10/hpf) H (Absent) Ur Squamous Epith Cells Present H (Absent) Urine Bacteria 1+ H (Absent) Urine Glucose Negative (Negative) Urine Opiates Screen None detected (None Detect) Ur Barbiturates Screen None detected (None Detect) Ur Phencyclidine Scrn None detected (None Detect) Ur Amphetamines Screen None detected (None Detect) U Benzodiazepines Scrn None detected (None Detect) Urine Cocaine Screen None detected (None Detect) U Cannabinoids Screen None detected (None Detect) Result Diagrams: 05/24/17 22:31 Lab Statement: Any lab studies that have been ordered have been reviewed, and results considered in the medical decision making process. Course/Dx - Course Assessment/Plan: MHE pending at shift change. - Differential Dx/Clinical Impression Provider Diagnosis: Mental health problem Discharge - Discharge Plan Condition: Stable Disposition: OTHER Discharge Disposition Comment: MHE pending at shift change. Referrals: No Primary Care Phys,NOPCP [Primary Care Provider] - The documentation as recorded by the Nicky roth Alfonso accurately reflects the service I personally performed and the decisions made by me, Nathaniel Haro MD.
[2017-05-24 23:11] LABS: Acetaminophen < 15 mcg/mL; Alcohol < 10 mg/dL (<10); Salicylate < 2.50 mg/dL (<30)
[2017-05-24 23:12] LABS: ALT 26 U/L (7-52); AST 31 U/L (13-39); Albumin 3.7 g/dL (3.2-5.2); Alkaline Phosphatase 123 U/L (34-104); Anion Gap 9 mmol/L (2-11); Blood Urea Nitrogen 20 mg/dL (6-24); CO2 Carbon Dioxide 25 mmol/L (22-32); Calcium 9.1 mg/dL (8.6-10.3); Chloride 102 mmol/L (101-111); EGFR African American 84.2 (>60); EGFR Non-African American 65.4 (>60); Globulin 3.6 g/dL (2-4); Glucose 124 mg/dL (70-100); Potassium 3.9 mmol/L (3.5-5.0); Sodium 136 mmol/L (133-145); Total Protein 7.3 g/dL (6.4-8.9)
[2017-05-25 00:25] LABS: TSH (Thyroid Stimulating Horm) 2.52 mcIU/mL (0.34-5.60)
[2017-05-25] MEDS ORDERED: Ibuprofen TAB* 600 MG PO ONE (04:10)
[2017-05-25] MEDS ORDERED: Nicotine Inhaler* 10 MG AMP INH PRN (04:11)
[2017-05-25] MEDS ORDERED: Mouth Piece, Nicotine* 1 EACH CARTRIDGE ONE (04:50)
[2017-05-25 07:05] VITALS: BP 143/76
== END 2017-05-25 13:00 ==
LOC: ED 20:50
DX: R45.851 Suicidal ideations (principal); R45.87 Impulsiveness; M79.642 Pain in left hand; E11.9 Type 2 diabetes mellitus without complications; E07.9 Disorder of thyroid, unspecified; K86.1 Other chronic pancreatitis; I10 Essential (primary) hypertension; J45.909 Unspecified asthma, uncomplicated; K21.9 Gastro-esophageal reflux disease without esophagitis; F41.9 Anxiety disorder, unspecified; F32.9 Major depressive disorder, single episode, unspecified; Z90.49 Acquired absence of other specified parts of digestive tract; Z98.49 Cataract extraction status, unspecified eye; Z88.5 Allergy status to narcotic agent; Z88.0 Allergy status to penicillin; Z88.2 Allergy status to sulfonamides; Z88.1 Allergy status to other antibiotic agents; Z91.040 Latex allergy status; F17.210 Nicotine dependence, cigarettes, uncomplicated
CPT/HCPCS: 36415; 80053; 80307; 80320; 80329; 81003; 81015; 84443; 85025; 87077; 87086; 93005; 99284; A9270-GY; G0480

== ENCOUNTER 2017-07-02 22:07 | Emergency (ER) | payer MEDICARE, MEDICAID ==
[2017-07-02] MEDS ORDERED: NS 0.9% 1000 ML* 1,000 ML IV ONE (22:28)
[2017-07-02 23:33] LABS: Hematocrit 38 % (35-47); Hemoglobin 12.2 g/dl (12.0-16.0); Mean Corpuscular HGB Conc 32 g/dl (31-36); Mean Corpuscular Hemoglobin 26 pg (27-31); Mean Corpuscular Volume 81 fL (80-97); Mean Platelet Volume 9 um3 (7.4-10.4); Red Blood Count 4.61 10^6/ul (4.0-5.4); Red Cell Distribution Width 17 % (10.5-15); White Blood Count 11.8 10^3/ul (3.5-10.8)
[2017-07-02 23:46] LABS: Venous Bicarbonate HCO3 26.5 mmol/L (24-28)
[2017-07-02 23:52] LABS: BUN/Creatinine Ratio 23.5 (8-20); Calcium 9.9 mg/dL (8.6-10.3); EGFR Non-African American 70.8 (>60); Globulin 3.7 g/dL (2-4); Magnesium 1.6 mg/dL (1.9-2.7); Potassium 4.3 mmol/L (3.5-5.0); Total Bilirubin 0.2 mg/dL (0.2-1.0); Total Protein 7.7 g/dL (6.4-8.9)
[2017-07-02 23:54] LABS: Troponin I 0.02 ng/mL (<0.04)
[2017-07-03 00:31] LABS: Urine Bilirubin Negative (Negative); Urine Glucose 3+(>=500 mg/dL) (Negative); Urine Nitrite Negative (Negative)
[2017-07-03 01:45] VITALS: BP 109/63
--- NOTE | 2017-07-03 09:52 | RAD ---
INDICATION: Hyperglycemia COMPARISON: Chest x-ray dated April 06, 2017. TECHNIQUE: Single AP portable view of the chest was obtained. FINDINGS: Image quality is compromised due to the relative inferiority of a portable chest x-ray. The heart and mediastinum exhibit normal size and contour. There is asymmetric elevation of the right hemidiaphragm similar to the prior chest x-ray. The lungs are grossly clear. There is no evidence of a large pleural effusion. Visualized bones are normal for the patient's age. IMPRESSION: No radiographic evidence for acute cardiopulmonary abnormality on this portable chest x-ray.
--- NOTE | 2017-07-08 15:31 | ED ---
Lucero Rosales Thomas, scribed for Solange Wilkerson MD on 07/03/17 at 0035 . HPI Diabetic - HPI Summary HPI Summary: The pt is a 51 y/o female with a history of IDDM brought in by ambulance with nausea, blurry vision, and dizziness that began today at 14:00. She has elevated blood sugar. She lost her blood meter. The blurry vision began before her nausea. Pt denies CP, SOB, abd pain, bloody stools, rashes, ecchymosis, dysuria, hematuria, anxiety, depression, SI, HI, and hallucinations. She lives with her . - History Of Current Complaint Chief Complaint: EDDiabeticProb Time Seen by Provider: 07/02/17 22:25 Hx Obtained From: Patient Hx Last Menstrual Period: 09/29/16 Onset/Duration: Lasting Hours - onset today at 14:00, Still Present Timing: Constant Severity Currently: Mild Character: Alert Aggravating: Nothing Alleviating: Nothing Associated Signs & Symptoms: Nausea Related History: DM II, Insulin Requiring - Allergies/Home Medications Allergies/Adverse Reactions: Allergies Allergy/AdvReac Type Severity Reaction Status Date / Time Latex Allergy Severe Rash Verified 05/27/17 12:13 Sulfa Antibiotics Allergy Severe Hives Verified 05/27/17 12:13 Penicillins Allergy Intermediate Rash Verified 05/27/17 12:13 Nalbuphine Allergy Unknown Unknown Verified 05/27/17 12:13 Reaction Details Perphenazine Allergy Unknown Unknown Verified 05/27/17 12:13 Reaction Details Ciprofloxacin [From Cipro] AdvReac Severe Dizziness Verified 05/27/17 12:13 Tramadol AdvReac Severe Altered Verified 05/27/17 12:19 Mental Status [place] AdvReac Mild See Comment Verified 05/27/17 12:13 ENVIRONMENTAL Allergy Mild SINUS Uncoded 05/27/17 12:13 PMH/Surg Hx/FS Hx/Imm Hx Previously Healthy: No Endocrine/Hematology History: Reports: Hx Diabetes - type 2-ON INSULIN FOR, Hx Thyroid Disease - ON MEDICATION FOR, Other Endocrine/Hematological Disorders - Chronic pancreatitis Denies: Hx Anticoagulant Therapy Cardiovascular History: Reports: Hx Hypertension - NO MEDICATION FOR PER PATIENT , Other Cardiovascular Problems/Disorders - PER H&P- HX OF PSVT 04/2008 Denies: Hx Pacemaker/ICD Respiratory History: Reports: Hx Asthma - HX OF, Hx Seasonal Allergies, Hx Sleep Apnea - HX OF IN THE PAST Denies: Hx Chronic Bronchitis, Hx Chronic Obstructive Pulmonary Disease (COPD ), Hx Cystic Fibrosis, Hx Lung Cancer, Hx Pleural Effusion, Hx Pneumonia, Hx Pulmonary Edema, Hx Pulmonary Embolism, Other Respiratory Problems/Disorders GI History: Reports: Hx Gall Bladder Disease, Hx Gastroesophageal Reflux Disease - ON MEDICATION FOR, Hx Gastrointestinal Bleed, Hx Irritable Bowel, Other GI Disorders - HX OF pancreatitis- STATES LAST ABOUT 2 WEEKS AGO- STATES SLIGHT CASE Denies: Hx Ulcer History: Denies: Hx Dialysis, Hx Renal Disease Musculoskeletal History: Reports: Hx Arthritis, Hx Back Problems, Other Musculoskeletal History - GEN MUSCULOSKELETAL PAIN Denies: Hx Rheumatoid Arthritis, Hx Bursitis, Hx Congenital Bone Abnormalities, Hx Fibromyalgia, Hx Gout, Hx Orthopedic Injury, Hx Osteoporosis, Hx Scoliosis, Hx Tendonitis Sensory History: Reports: Hx Cataracts, Hx Contacts or Glasses, Hx Vision Problem Denies: Hx Eye Injury, Hx Eye Prosthesis, Hx Glaucoma, Hx Macular Degeneration, Hx Deafness, Hx Hearing Aid, Hx Hearing Problem, Other Sensory Impairments Opthamlomology History: Reports: Hx Cataracts, Hx Contacts or Glasses, Hx Vision Problem Denies: Hx Eye Injury, Hx Eye Prosthesis, Hx Glaucoma, Hx Macular Degeneration, Other Sensory Impairments Neurological History: Reports: Hx Developmental Delay - intellectual disability , Hx Seizures - STATES WITH ALLERGIC REACTION TO TRAMADOL Denies: Hx Dementia, Other Neuro Impairments/Disorders Psychiatric History: Reports: Hx Anxiety - ON MEDICATION FOR, Hx Depression - ON MEDICATION FOR, Hx Post Traumatic Stress Disorder, Hx Inpatient Treatment, Hx Community Mental Health Tx, Hx Bipolar Disorder - pt manic, Hx Suicide Attempt - past med overdoses, Hx of Violent Episodes Against Others, Other Psychiatric Issues/Disorders - PSYCHOSIS NOS, HX OF PTSD, SCHIZOAFFECTIVE DISORDER, BORDERLINE PERSONALITY Denies: Hx Attention Deficit Hyperactivity Disorder, Hx Eating Disorder, Hx Panic Disorder, Hx Schizophrenia, Hx Substance Abuse - Surgical History Surgery Procedure, Year, and Place: 2011-CATARACT EXTRACTION. GALLBLADDER REMOVED . HIP SURGERY ACHILD Hx Anesthesia Reactions: No - Immunization History Date of Tetanus Vaccine: Unknown Date of Influenza Vaccine: 04/2017 Infectious Disease History: No Infectious Disease History: Denies: Hx Clostridium Difficile, Hx Hepatitis, Hx Human Immunodeficiency Virus (HIV), Hx of Known/Suspected MRSA, Hx Shingles, Hx Tuberculosis, Hx Known/ Suspected VRE, Hx Known/Suspected VRSA, History Other Infectious Disease, Traveled Outside the [place] in Last 30 Days - Family History Known Family History: Positive: Other - Anxiety and depression, [place] - father Negative: Cardiac Disease, Hypertension, Diabetes Family History: Depression and anxiety - Social History Lives: With Family Alcohol Use: None Hx Substance Use: Yes Substance Use Type: Reports: None Hx Tobacco Use: Yes Smoking Status (MU): Light Every Day Tobacco Smoker Type: Cigarettes Amount Used/How Often: Quit for 2 years, but started again in March. USING THE NICOTINE Length of Time of Smoking/Using Tobacco: 2 year ago Have You Smoked in the Last Year: Yes Review of Systems Positive: Blurred Vision Negative: Sore Throat Negative: Chest Pain Negative: Shortness Of Breath Positive: Nausea. Negative: Abdominal Pain, Other - bloody stools Negative: dysuria, hematuria Negative: Decreased ROM Negative: Rash, Bruising Neurological: Other - Dizziness Negative: Anxious, Depressed, Other - hallucinations All Other Systems Reviewed And Are Negative: No Physical Exam - Summary Physical Exam Summary: Appearance: Alert, conversive, nontoxic appearing Skin: Warm, dry, no mottling, no rashes, no contusions. She has a scar to her right knee. HEENT: EOMI, PERRL. She has slightly dry mucous membranes. Neck: No masses on the neck, supple Respiratory: Clear to auscultation, breath sounds present, no rales, no rhonchi , no wheezes Cardiovascular: RRR, pulses are symmetrical in both lower and upper extremities Abdomen: Soft, non-tender Bowel Sounds: Present Musculoskeletal: No CVA tenderness, no obvious deformity, moving all extremities in a grossly normal manner Neurological: A&Ox3, CN II-XII Intact, moving all extremities symmetrically Psychiatric: Normal affect and mood Triage Information Reviewed: Yes Vital Signs On Initial Exam: Initial Vitals BP 156/125 07/02/17 22:19 Vital Signs Reviewed: Yes - Kriss Coma Scale Coma Scale Total: 15 Diagnostics - Vital Signs Vital Signs Temp Pulse Resp BP Pulse Ox 07/03/17 00:05 88 8 95 07/02/17 23:00 91 15 143/86 95 07/02/17 22:30 88 11 114/84 96 07/02/17 22:21 97.5 F 89 15 156/125 95 07/02/17 22:20 91 15 96 07/02/17 22:19 156/125 - Laboratory Lab Results: Lab Results 07/02/17 07/02/17 07/02/17 Range/Units 23:15 23:15 23:39 WBC 11.8 H (3.5-10.8) 10^3/ul RBC 4.61 (4.0-5.4) 10^6/ul Hgb 12.2 (12.0-16.0) g/dl Hct 38 (35-47) % MCV 81 (80-97) fL MCH 26 L (27-31) pg MCHC 32 (31-36) g/dl RDW 17 H (10.5-15) % Plt Count 217 (150-450) 10^3/ul MPV 9 (7.4-10.4) um3 Neut % (Auto) 64.3 (38-83) % Lymph % (Auto) 24.9 L (25-47) % [place] % (Auto) 4.8 (1-9) % Eos % (Auto) 5.1 (0-6) % Baso % (Auto) 0.9 (0-2) % Absolute Neuts (auto) 7.6 (1.5-7.7) 10^3/ul Absolute Lymphs (auto) 2.9 (1.0-4.8) 10^3/ul Absolute Monos (auto) 0.6 (0-0.8) 10^3/ul Absolute Eos (auto) 0.6 (0-0.6) 10^3/ul Absolute Basos (auto) 0.1 (0-0.2) 10^3/ul Absolute Nucleated RBC 0 10^3/ul Nucleated RBC % 0 VBG pH 7.39 (7.33-7.43) VBG pCO2 46 (41-51) mmHg VBG pO2 55 H (35-45) mmHg VBG HCO3 26.5 (24-28) mmol/L VBG O2 Saturation 88.2 H (70-80) % VBG Base Excess 2.3 (0-4) Sodium 132 L (133-145) mmol/L Potassium 4.3 (3.5-5.0) mmol/L Chloride 96 L (101-111) mmol/L Carbon Dioxide 28 (22-32) mmol/L Anion Gap 8 (2-11) mmol/L BUN 20 (6-24) mg/dL Creatinine 0.85 (0.51-0.95) mg/dL Est GFR ( Amer) 91.0 (>60) Est GFR (Non-Af Amer) 70.8 (>60) BUN/Creatinine Ratio 23.5 H (8-20) Glucose 397 H (70-100) mg/dL Calcium 9.9 (8.6-10.3) mg/dL Magnesium 1.6 L (1.9-2.7) mg/dL Total Bilirubin 0.20 (0.2-1.0) mg/dL AST 19 (13-39) U/L ALT 17 (7-52) U/L Alkaline Phosphatase 151 H (34-104) U/L Troponin I 0.02 (<0.04) ng/mL Total Protein 7.7 (6.4-8.9) g/dL Albumin 4.0 (3.2-5.2) g/dL Globulin 3.7 (2-4) g/dL Albumin/Globulin Ratio 1.1 (1-3) TSH 7.00 H (0.34-5.60) mcIU/mL Result Diagrams: 07/02/17 23:15 07/02/17 23:15 Lab Statement: Any lab studies that have been ordered have been reviewed, and results considered in the medical decision making process. - Radiology CXR Xray Interpretation: No Acute Changes - Negative chest x-ray Radiology Interpretation Completed By: ED Physician - EKG 22:43 Cardiac Rate: NL EKG Rhythm: Sinus Rhythm - 80 BPM EKG Interpretation: Normal QRS, QTC, and ST T-waves. No AMI. Diabetic Course/Dx - Course Assessment/Plan: The pt is a 51 y/o female with a history of IDDM brought in by ambulance with nausea, blurry vision, and dizziness that began today at 14:00. She was given IV fluids in the ED. EKG and CXR were obtained. The patient will be discharged home. - Diagnoses Provider Diagnoses: Diabetes Discharge - Discharge Plan Condition: Stable Disposition: HOME Patient Education Materials: Type 2 Diabetes in Adults (ED) Referrals: No Primary Care Phys,NOPCP [Primary Care Provider] - Additional Instructions: Take all medications as previously instructed. return if worse or any new symptoms. It is important to follow up with your doctor as soon as possible. I recommended following up on Tuesday. The documentation as recorded by the Lucero roth Thomas accurately reflects the service I personally performed and the decisions made by me, Solange Wilkerson MD.
== END 2017-07-03 02:08 | disposition home or self-care (01) ==
LOC: ED 22:07
DX: E11.9 Type 2 diabetes mellitus without complications (principal); R11.0 Nausea; H53.8 Other visual disturbances; R42 Dizziness and giddiness
CPT/HCPCS: 36415; 71010; 80053; 81003; 82803; 83735; 84443; 84484; 85025; 93005; 96360; 99283

== ENCOUNTER 2017-07-04 21:25 | Emergency (ER) | payer MEDICARE, MEDICAID ==
[2017-07-04] MEDS ORDERED: Ketorolac INJ* 30 MG/ML 1 ML VIAL IM ONE (21:49)
[2017-07-04] MEDS ORDERED: Magnesium CITRATE* 300 ML BTL PO ONE (21:49)
--- NOTE | 2017-07-04 21:50 | RAD ---
INDICATION: Abdominal pain COMPARISON: March 09, 2017 TECHNIQUE: A single view of the abdomen is submitted. FINDINGS: Bones: There are no acute bony findings. Soft tissues: The soft tissues appear normal. The psoas margins are sharp. Bowel gas pattern: There is no obstruction. There is moderate retained stool. Calcifications: There are no abnormal calcifications. Other: There clips in the gallbladder fossa. IMPRESSION: NO ACUTE DIAGNOSTIC FINDINGS.
[2017-07-04 22:51] LABS: ALT 16 U/L (7-52); AST 24 U/L (13-39); Albumin 3.7 g/dL (3.2-5.2); Alkaline Phosphatase 125 U/L (34-104); Anion Gap 6 mmol/L (2-11); BUN/Creatinine Ratio 19.4 (8-20); Blood Urea Nitrogen 19 mg/dL (6-24); CO2 Carbon Dioxide 26 mmol/L (22-32); Calcium 9.1 mg/dL (8.6-10.3); Chloride 102 mmol/L (101-111); EGFR African American 77.3 (>60); EGFR Non-African American 60.1 (>60); Globulin 3.5 g/dL (2-4); Glucose 285 mg/dL (70-100); Potassium 4.6 mmol/L (3.5-5.0); Sodium 134 mmol/L (133-145); Total Protein 7.2 g/dL (6.4-8.9)
[2017-07-04 23:39] LABS: Acetaminophen < 15 mcg/mL; Salicylate < 2.50 mg/dL (<30)
[2017-07-05] MEDS ORDERED: Polyethylene Glycol 3350* 17 GM PACKET PO ONE (00:24)
--- NOTE | 2017-07-05 00:27 | ED ---
Junior Rosales Benjamin, scribed for Yeyo Mcfarland MD on 07/04/17 at 2235 . Psychiatric Complaint - HPI Summary HPI Summary: 51yo female states ingesting 12 pills of 600mg tylenol and a AAA battery today at 0200 for suicidal intentions. Pt states that she has been depressed and frustrated lately. Recent family member . Pt also reports back pain. Pt has herniated discs and has hx of chronic back pain. - History Of Current Complaint Chief Complaint: EDGeneral Time Seen by Provider: 07/04/17 21:27 Hx Obtained From: Patient Hx Last Menstrual Period: 09/29/16 Onset/Duration: Sudden Onset, Still Present Timing: Constant Severity Initially: Moderate Severity Currently: Moderate Character: Depressed, Frustrated Aggravating Factor(s): Recent Stress Has Suicidal: Reports: Thoughts, With A Plan - Allergies/Home Medications Allergies/Adverse Reactions: Allergies Allergy/AdvReac Type Severity Reaction Status Date / Time Latex Allergy Severe Rash Verified 05/27/17 12:13 Sulfa Antibiotics Allergy Severe Hives Verified 05/27/17 12:13 Penicillins Allergy Intermediate Rash Verified 05/27/17 12:13 Nalbuphine Allergy Unknown Unknown Verified 05/27/17 12:13 Reaction Details Perphenazine Allergy Unknown Unknown Verified 05/27/17 12:13 Reaction Details Ciprofloxacin [From Cipro] AdvReac Severe Dizziness Verified 05/27/17 12:13 Tramadol AdvReac Severe Altered Verified 05/27/17 12:19 Mental Status [place] AdvReac Mild See Comment Verified 05/27/17 12:13 ENVIRONMENTAL Allergy Mild SINUS Uncoded 05/27/17 12:13 PMH/Surg Hx/FS Hx/Imm Hx Endocrine/Hematology History: Reports: Hx Diabetes - type 2-ON INSULIN FOR, Hx Thyroid Disease - ON MEDICATION FOR, Other Endocrine/Hematological Disorders - Chronic pancreatitis Denies: Hx Anticoagulant Therapy Cardiovascular History: Reports: Hx Hypertension - NO MEDICATION FOR PER PATIENT , Other Cardiovascular Problems/Disorders - PER H&P- HX OF PSVT 04/2008 Denies: Hx Pacemaker/ICD Respiratory History: Reports: Hx Asthma - HX OF, Hx Seasonal Allergies, Hx Sleep Apnea - HX OF IN THE PAST Denies: Hx Chronic Bronchitis, Hx Chronic Obstructive Pulmonary Disease (COPD ), Hx Cystic Fibrosis, Hx Lung Cancer, Hx Pleural Effusion, Hx Pneumonia, Hx Pulmonary Edema, Hx Pulmonary Embolism, Other Respiratory Problems/Disorders GI History: Reports: Hx Gall Bladder Disease, Hx Gastroesophageal Reflux Disease - ON MEDICATION FOR, Hx Gastrointestinal Bleed, Hx Irritable Bowel, Other GI Disorders - HX OF pancreatitis- STATES LAST ABOUT 2 WEEKS AGO- STATES SLIGHT CASE Denies: Hx Ulcer History: Denies: Hx Dialysis, Hx Renal Disease Musculoskeletal History: Reports: Hx Arthritis, Hx Back Problems, Other Musculoskeletal History - GEN MUSCULOSKELETAL PAIN Denies: Hx Rheumatoid Arthritis, Hx Bursitis, Hx Congenital Bone Abnormalities, Hx Fibromyalgia, Hx Gout, Hx Orthopedic Injury, Hx Osteoporosis, Hx Scoliosis, Hx Tendonitis Sensory History: Reports: Hx Cataracts, Hx Contacts or Glasses, Hx Vision Problem Denies: Hx Eye Injury, Hx Eye Prosthesis, Hx Glaucoma, Hx Macular Degeneration, Hx Deafness, Hx Hearing Aid, Hx Hearing Problem, Other Sensory Impairments Opthamlomology History: Reports: Hx Cataracts, Hx Contacts or Glasses, Hx Vision Problem Denies: Hx Eye Injury, Hx Eye Prosthesis, Hx Glaucoma, Hx Macular Degeneration, Other Sensory Impairments Neurological History: Reports: Hx Developmental Delay - intellectual disability , Hx Seizures - STATES WITH ALLERGIC REACTION TO TRAMADOL Denies: Hx Dementia, Other Neuro Impairments/Disorders Psychiatric History: Reports: Hx Anxiety - ON MEDICATION FOR, Hx Depression - ON MEDICATION FOR, Hx Post Traumatic Stress Disorder, Hx Inpatient Treatment, Hx Community Mental Health Tx, Hx Bipolar Disorder - pt manic, Hx Suicide Attempt - past med overdoses, Hx of Violent Episodes Against Others, Other Psychiatric Issues/Disorders - PSYCHOSIS NOS, HX OF PTSD, SCHIZOAFFECTIVE DISORDER, BORDERLINE PERSONALITY Denies: Hx Attention Deficit Hyperactivity Disorder, Hx Eating Disorder, Hx Panic Disorder, Hx Schizophrenia, Hx Substance Abuse - Surgical History Surgery Procedure, Year, and Place: 2011-CATARACT EXTRACTION. GALLBLADDER REMOVED . HIP SURGERY ACHILD Hx Anesthesia Reactions: No - Immunization History Date of Tetanus Vaccine: Unknown Date of Influenza Vaccine: 04/2017 Infectious Disease History: No Infectious Disease History: Denies: Hx Clostridium Difficile, Hx Hepatitis, Hx Human Immunodeficiency Virus (HIV), Hx of Known/Suspected MRSA, Hx Shingles, Hx Tuberculosis, Hx Known/ Suspected VRE, Hx Known/Suspected VRSA, History Other Infectious Disease, Traveled Outside the [place] in Last 30 Days - Family History Known Family History: Positive: Other - Anxiety and depression, [place] - father Negative: Cardiac Disease, Hypertension, Diabetes Family History: Depression and anxiety - Social History Alcohol Use: None Hx Substance Use: Yes Substance Use Type: Reports: None Hx Tobacco Use: Yes Smoking Status (MU): Former Smoker Type: Cigarettes Amount Used/How Often: Quit for 2 years, but started again in March. USING THE NICOTINE Length of Time of Smoking/Using Tobacco: 2 year ago Have You Smoked in the Last Year: Yes Review of Systems Constitutional: Negative Eyes: Negative ENT: Negative Cardiovascular: Negative Respiratory: Negative Gastrointestinal: Negative Genitourinary: Negative Positive: Myalgia - back pain Skin: Negative Neurological: Negative Positive: Depressed, Other - SI All Other Systems Reviewed And Are Negative: Yes Physical Exam - Summary Physical Exam Summary: Appearance: Well-appearing, Well-nourished Skin: Warm Eyes: Normal ENT: Normal Neck: Supple, nontender Respiratory: Clear to auscultation Cardiovascular: Normal Abdomen: Soft, nontender Bowel: Present Musculoskeletal: Normal, Strength/ROM Intact Neurological: Normal, A&Ox3 Psychiatric: Normal Triage Information Reviewed: Yes Vital Signs On Initial Exam: Initial Vitals Temp Pulse Resp BP Pulse Ox 99.1 F 81 18 145/92 96 07/04/17 21:30 07/04/17 21:30 07/04/17 21:30 07/04/17 21:30 07/04/17 21:30 Vital Signs Reviewed: Yes - Kriss Coma Scale Coma Scale Total: 15 Diagnostics - Vital Signs Vital Signs Temp Pulse Resp BP Pulse Ox 07/04/17 21:33 84 14 96 07/04/17 21:31 145/92 07/04/17 21:30 99.1 F 81 18 145/92 96 - Laboratory Lab Results: Lab Results 07/04/17 Range/Units 22:20 Sodium 134 (133-145) mmol/L Potassium 4.6 (3.5-5.0) mmol/L Chloride 102 (101-111) mmol/L Carbon Dioxide 26 (22-32) mmol/L Anion Gap 6 (2-11) mmol/L BUN 19 (6-24) mg/dL Creatinine 0.98 H (0.51-0.95) mg/dL Est GFR ( Amer) 77.3 (>60) Est GFR (Non-Af Amer) 60.1 (>60) BUN/Creatinine Ratio 19.4 (8-20) Glucose 285 H (70-100) mg/dL Calcium 9.1 (8.6-10.3) mg/dL Total Bilirubin 0.20 (0.2-1.0) mg/dL AST 24 (13-39) U/L ALT 16 (7-52) U/L Alkaline Phosphatase 125 H (34-104) U/L Total Protein 7.2 (6.4-8.9) g/dL Albumin 3.7 (3.2-5.2) g/dL Globulin 3.5 (2-4) g/dL Albumin/Globulin Ratio 1.1 (1-3) Salicylates < 2.50 (<30) mg/dL Acetaminophen < 15 mcg/mL Result Diagrams: 07/04/17 22:20 Lab Statement: Any lab studies that have been ordered have been reviewed, and results considered in the medical decision making process. - Radiology abdominal XR Xray Interpretation: No Acute Changes Radiology Interpretation Completed By: Radiologist - ED physician has reviewed this radiology report and agrees. Course/Dx - Course Course Of Treatment: She is in NAD. Pt has had multiple MHE in the past and has had outpt psych follow up. I spoke with GI physician Dr. melgoza who informed me that the AAA battery will pass on its own. Pt has no abdominal pain currently. I gave the pt miralax to take at home to facilitate he passage of the battery. Labs are WNL. Pt reported ibuprofen and ingestion, more than 10 hours prior. No additional intervention required at this time. I encourage pt to f/u withher outpt psychiatrist. Discouraged ingestion of foreign object. Pt agrees to and understands discharge instructions. - Differential Dx/Clinical Impression Provider Diagnosis: Foreign body ingestion Discharge - Discharge Plan Condition: Improved Disposition: HOME Prescriptions: Polyethylene Glycol 3350* [Miralax*] 17 gm PO DAILY #2 packet Patient Education Materials: Foreign Body Ingestion (ED) Referrals: No Primary Care Phys,NOPCP [Primary Care Provider] - Additional Instructions: PLEASE RETURN IMMEDIATELY TO THE ER IF YOU HAVE ANY WORSENING OR CONCERNING SYMPTOMS PLEASE MAKE AN APPOINTMENT TO BE SEEN BY YOUR PRIMARY CARE DOCTOR AND PSYCHIATRIST WITHIN 1 WEEK The documentation as recorded by the Junior roth Benjamin accurately reflects the service I personally performed and the decisions made by me, Yeyo Mcfarland MD.
[2017-07-05 01:07] VITALS: BP 127/70
== END 2017-07-05 01:07 | disposition home or self-care (01) ==
LOC: ED 21:25
DX: T14.91XA Suicide attempt, initial encounter (principal); T18.9XXA Foreign body of alimentary tract, part unspecified, initial encounter; T39.1X2A Poisoning by 4-Aminophenol derivatives, intentional self-harm, initial encounter; F32.9 Major depressive disorder, single episode, unspecified; X58.XXXA Exposure to other specified factors, initial encounter; Y93.9 Activity, unspecified; Y92.9 Unspecified place or not applicable
CPT/HCPCS: 36415; 74000; 80053; 80329; 96372; 99282; A9270-GY; G0480; J1885

== ENCOUNTER 2017-07-05 14:24 | Inpatient (IN) | payer MEDICARE, MEDICAID ==
[2017-07-05] MEDS ORDERED: traMADol TAB* 50 MG PO ONE (14:44)
[2017-07-05 16:11] LABS: Hematocrit 37 % (35-47); Mean Corpuscular HGB Conc 32 g/dl (31-36); Mean Corpuscular Hemoglobin 26 pg (27-31); Mean Corpuscular Volume 81 fL (80-97); Mean Platelet Volume 9 um3 (7.4-10.4); Red Blood Count 4.59 10^6/ul (4.0-5.4); Red Cell Distribution Width 17 % (10.5-15); White Blood Count 10.9 10^3/ul (3.5-10.8)
[2017-07-05] MEDS ORDERED: Al Hydrox/Mg Hydrox/Simet LIQ* 30 ML UDC PO PRN (16:12)
[2017-07-05] MEDS ORDERED: Albuterol HFA INHALER* 8 gm MDI INH PRN (16:14)
[2017-07-05] MEDS ORDERED: Docusate CAP* 100 MG PO PRN (16:14)
[2017-07-05 16:30] LABS: ALT 16 U/L (7-52); AST 21 U/L (13-39); Albumin 3.7 g/dL (3.2-5.2); Alkaline Phosphatase 126 U/L (34-104); Anion Gap 6 mmol/L (2-11); BUN/Creatinine Ratio 23.9 (8-20); Blood Urea Nitrogen 22 mg/dL (6-24); CO2 Carbon Dioxide 28 mmol/L (22-32); Calcium 9.2 mg/dL (8.6-10.3); Chloride 102 mmol/L (101-111); EGFR African American 83.1 (>60); EGFR Non-African American 64.6 (>60); Globulin 3.6 g/dL (2-4); Glucose 268 mg/dL (70-100); Potassium 4.5 mmol/L (3.5-5.0); Sodium 136 mmol/L (133-145); Total Protein 7.3 g/dL (6.4-8.9)
[2017-07-05 16:59] LABS: Acetaminophen < 15 mcg/mL; Alcohol < 10 mg/dL (<10); Salicylate < 2.50 mg/dL (<30)
[2017-07-05] MEDS ORDERED: Ibuprofen TAB* 600 MG PO SCH (17:00)
[2017-07-05 17:12] LABS: TSH (Thyroid Stimulating Horm) 1.29 mcIU/mL (0.34-5.60)
[2017-07-05 17:31] LABS: Urine Bacteria 1+ (Absent); Urine Bilirubin Negative (Negative); Urine Glucose 1+(50 mg/dL) (Negative); Urine Nitrite Negative (Negative)
[2017-07-05 17:38] LABS: Benzodiazepine Urine Screen None Detected (None Detect)
[2017-07-05] MEDS: Insulin LISPRO* 1 UNITS UNIT SUBCUT SCH (18:10)
[2017-07-05] MEDS: Gabapentin CAP(*) 300 MG PO SCH ×2 (18:10→20:48)
[2017-07-05] MEDS: Atorvastatin* 40 MG TAB PO SCH (20:15)
[2017-07-05] MEDS: Omeprazole CAP* 20 MG PO SCH (20:15)
[2017-07-05] MEDS: Lurasidone(*) 80 MG TAB PO SCH (20:15)
[2017-07-05] MEDS: Naproxen TAB* 250 MG PO SCH (20:46)
[2017-07-05] MEDS: traZODone TAB* 100 MG PO SCH (20:47)
[2017-07-05] MEDS: OLANzapine TAB* 5 MG PO SCH (20:49)
[2017-07-05] MEDS: lamoTRIgine TAB(*) 100 MG PO SCH (20:50)
[2017-07-05] MEDS: Insulin GLARGINE(*) 1 UNITS UNIT SUBCUT SCH (21:25)
--- NOTE | 2017-07-05 22:54 | ED ---
Zhanna Rosales Nilda, scribed for Brian St MD on 07/05/17 at 1511 . Complex/Multi-Sys Presentation - HPI Summary HPI Summary: This patient is a 51 year old F BIBA to [facility] with a chief complaint of depression and SI with a plan to swallow things since today. Pt also reports that she felt something slip out of the joint in her back today, and has since had difficulty with ambulation and bilat LE numbness. The patient rates the pain 8/10 in severity. Symptoms aggravated and alleviated by nothing. Patient denies bowel incontinence and abnormal appetite. Pt states she does not abuse drugs and alcohol. PMHx depression and chronic back pain. - History Of Current Complaint Chief Complaint: EDMentalHealth Time Seen by Provider: 07/05/17 14:35 Hx Obtained From: Patient Onset/Duration: Sudden Onset, Lasting Days, Still Present Timing: Constant Severity Currently: Severe - 8 Location: Pain At: - back Aggravating Factor(s): nothing Alleviating Factor(s): nothing Associated Signs And Symptoms: Positive: Other - SI, difficulty with ambulation , bilat LE numbness; denies bowel incontinence and abnormal appetite - Allergies/Home Medications Allergies/Adverse Reactions: Allergies Allergy/AdvReac Type Severity Reaction Status Date / Time Latex Allergy Severe Rash Verified 05/27/17 12:13 Sulfa Antibiotics Allergy Severe Hives Verified 05/27/17 12:13 Penicillins Allergy Intermediate Rash Verified 05/27/17 12:13 Nalbuphine Allergy Unknown Unknown Verified 05/27/17 12:13 Reaction Details Perphenazine Allergy Unknown Unknown Verified 05/27/17 12:13 Reaction Details Ciprofloxacin [From Cipro] AdvReac Severe Dizziness Verified 05/27/17 12:13 Tramadol AdvReac Severe Altered Verified 05/27/17 12:19 Mental Status [place] AdvReac Mild See Comment Verified 05/27/17 12:13 ENVIRONMENTAL Allergy Mild SINUS Uncoded 05/27/17 12:13 Home Medications: Home Medications Gabapentin TAB(NF) [Neurontin 600 mg TAB(NF)] 600 mg PO QID 07/05/17 [History Confirmed 07/05/17] Levothyroxine TAB* [Synthroid TAB*] 50 mcg PO QAM 07/05/17 [History Confirmed ] Levothyroxine TAB* [Synthroid TAB*] 200 mcg PO QAM 07/05/17 [History Confirmed 07/05/17] Naproxen TAB* [Naprosyn 250 mg TAB*] 500 mg PO BID 07/05/17 [History Confirmed 07/05/17] Nicotine Inhaler* 10 mg INH Q2H PRN 07/05/17 [History Confirmed 07/05/17] lamoTRIgine TAB(*) [LaMICtal TAB(*)] 150 mg PO BID 07/05/17 [History Confirmed 07/05/17] PMH/Surg Hx/FS Hx/Imm Hx Endocrine/Hematology History: Reports: Hx Diabetes - type 2-ON INSULIN FOR, Hx Thyroid Disease - ON MEDICATION FOR, Other Endocrine/Hematological Disorders - Chronic pancreatitis Denies: Hx Anticoagulant Therapy Cardiovascular History: Reports: Hx Hypertension - NO MEDICATION FOR PER PATIENT , Other Cardiovascular Problems/Disorders - PER H&P- HX OF PSVT 04/2008 Denies: Hx Pacemaker/ICD Respiratory History: Reports: Hx Asthma - HX OF, Hx Seasonal Allergies, Hx Sleep Apnea - HX OF IN THE PAST Denies: Hx Chronic Bronchitis, Hx Chronic Obstructive Pulmonary Disease (COPD ), Hx Cystic Fibrosis, Hx Lung Cancer, Hx Pleural Effusion, Hx Pneumonia, Hx Pulmonary Edema, Hx Pulmonary Embolism, Other Respiratory Problems/Disorders GI History: Reports: Hx Gall Bladder Disease, Hx Gastroesophageal Reflux Disease - ON MEDICATION FOR, Hx Gastrointestinal Bleed, Hx Irritable Bowel, Other GI Disorders - HX OF pancreatitis- STATES LAST ABOUT 2 WEEKS AGO- STATES SLIGHT CASE Denies: Hx Ulcer History: Denies: Hx Dialysis, Hx Renal Disease Musculoskeletal History: Reports: Hx Arthritis, Hx Back Problems, Other Musculoskeletal History - GEN MUSCULOSKELETAL PAIN Denies: Hx Rheumatoid Arthritis, Hx Bursitis, Hx Congenital Bone Abnormalities, Hx Fibromyalgia, Hx Gout, Hx Orthopedic Injury, Hx Osteoporosis, Hx Scoliosis, Hx Tendonitis Sensory History: Reports: Hx Cataracts, Hx Contacts or Glasses, Hx Vision Problem Denies: Hx Eye Injury, Hx Eye Prosthesis, Hx Glaucoma, Hx Macular Degeneration, Hx Deafness, Hx Hearing Aid, Hx Hearing Problem, Other Sensory Impairments Opthamlomology History: Reports: Hx Cataracts, Hx Contacts or Glasses, Hx Vision Problem Denies: Hx Eye Injury, Hx Eye Prosthesis, Hx Glaucoma, Hx Macular Degeneration, Other Sensory Impairments Neurological History: Reports: Hx Developmental Delay - intellectual disability , Hx Seizures - STATES WITH ALLERGIC REACTION TO TRAMADOL Denies: Hx Dementia, Other Neuro Impairments/Disorders Psychiatric History: Reports: Hx Anxiety - ON MEDICATION FOR, Hx Depression - ON MEDICATION FOR, Hx Post Traumatic Stress Disorder, Hx Inpatient Treatment, Hx Community Mental Health Tx, Hx Bipolar Disorder - pt manic, Hx Suicide Attempt - past med overdoses, Hx of Violent Episodes Against Others, Other Psychiatric Issues/Disorders - PSYCHOSIS NOS, HX OF PTSD, SCHIZOAFFECTIVE DISORDER, BORDERLINE PERSONALITY Denies: Hx Attention Deficit Hyperactivity Disorder, Hx Eating Disorder, Hx Panic Disorder, Hx Schizophrenia, Hx Substance Abuse - Surgical History Surgery Procedure, Year, and Place: 2011-CATARACT EXTRACTION. GALLBLADDER REMOVED . HIP SURGERY ACHILD Hx Anesthesia Reactions: No - Immunization History Date of Tetanus Vaccine: Unknown Date of Influenza Vaccine: 04/2017 Infectious Disease History: No Infectious Disease History: Denies: Hx Clostridium Difficile, Hx Hepatitis, Hx Human Immunodeficiency Virus (HIV), Hx of Known/Suspected MRSA, Hx Shingles, Hx Tuberculosis, Hx Known/ Suspected VRE, Hx Known/Suspected VRSA, History Other Infectious Disease, Traveled Outside the [place] in Last 30 Days - Family History Known Family History: Positive: None - reviewed & noncontributory, Other - Anxiety and depression, [place] - father Negative: Cardiac Disease, Hypertension, Diabetes Family History: Depression and anxiety - Social History Alcohol Use: None Hx Substance Use: Yes Substance Use Type: Reports: None Hx Tobacco Use: Yes Smoking Status (MU): Light Every Day Tobacco Smoker Type: Cigarettes Amount Used/How Often: Quit for 2 years, but started again in March. USING THE NICOTINE Length of Time of Smoking/Using Tobacco: 2 year ago Have You Smoked in the Last Year: Yes Review of Systems Negative: Fever, Chills Negative: Erythema Negative: Sore Throat Negative: Chest Pain Negative: Shortness Of Breath, Cough Positive: Other - negative abnormal appetite and bowel incontinence. Negative: Abdominal Pain, Vomiting, Nausea Negative: dysuria, hematuria Positive: Other - back pain. Negative: Myalgia, Edema Negative: Rash Neurological: Other - negative dizziness Positive: Numbness - bilat LE numbness Psychological: Other - SI Positive: Depressed All Other Systems Reviewed And Are Negative: Yes Physical Exam - Summary Physical Exam Summary: Constitutional: Well-developed, Well-nourished, Alert. (-) Distressed Skin: Warm, Dry HENT: Normocephalic; Atraumatic Eyes: Conjunctiva normal Neck: Musculoskeletal ROM normal neck. (-) JVD, (-) Stridor, (-) Tracheal deviation Cardio: Rhythm regular, rate normal, Heart sounds normal; Intact distal pulses; The pedal pulses are 2+ and symmetric. Radial pulses are 2+ and symmetric. (-) Murmur Pulmonary/Chest wall: Effort normal. (-) Respiratory distress, (-) Wheezes, (-) Rales Abd: Soft, (-) Tenderness, (-) Distension, (-) Guarding, (-) Rebound Musculoskeletal: (-) Edema, Full strength LE Lymph: (-) Cervical adenopathy Neuro: Alert, Oriented x3 Psych: Mood and affect Normal Triage Information Reviewed: Yes Vital Signs On Initial Exam: Initial Vitals Temp Pulse Resp BP Pulse Ox 97.2 F 81 16 134/70 99 07/05/17 14:25 07/05/17 14:25 07/05/17 14:25 07/05/17 14:25 07/05/17 14:25 Vital Signs Reviewed: Yes Diagnostics - Vital Signs Vital Signs Temp Pulse Resp BP Pulse Ox 07/05/17 14:25 97.2 F 81 16 134/70 99 - Laboratory Result Diagrams: 07/05/17 16:00 07/05/17 16:00 Lab Statement: Any lab studies that have been ordered have been reviewed, and results considered in the medical decision making process. Complex Multi-Symp Course/Dx Assessment/Plan: This patient is a 51 year old F BIBA to [facility] with a chief complaint of depression and SI with a plan to swallow things since today. Pt also reports that she felt something slip out of the joint in her back today, and has since had difficulty with ambulation and bilat LE numbness. The patient rates the pain 8/10 in severity. Symptoms aggravated and alleviated by nothing. Patient denies bowel incontinence and abnormal appetite. Pt states she does not abuse drugs and alcohol. PMHx depression and chronic back pain. In the ED course, the patient was given Tramadol. [1400] Pt is medically cleared for MHE. The pt is stable and will be s/o pending shift change, awaiting MHE. Dx of sciatica, SI, and chronic back pain. Pt understands and is agreeable with this plan. - Diagnoses Provider Diagnoses: Sciatica, Chronic back pain, Suicidal ideation Discharge - Discharge Plan Condition: Stable Disposition: [facility] [place] The documentation as recorded by the Zhanna roth Nilda accurately reflects the service I personally performed and the decisions made by me, Brian St MD.
[2017-07-06] MEDS: Levothyroxine TAB* 100 MCG TAB PO SCH (06:25)
[2017-07-06] MEDS: Levothyroxine TAB* 50 MCG TAB PO SCH (06:25)
[2017-07-06] MEDS: OLANzapine TAB* 5 MG PO SCH ×2 (08:35→20:32)
[2017-07-06] MEDS: Naproxen TAB* 250 MG PO SCH (08:35)
[2017-07-06] MEDS: lamoTRIgine TAB(*) 100 MG PO SCH ×2 (08:36→20:34)
[2017-07-06] MEDS: Gabapentin CAP(*) 300 MG PO SCH ×4 (08:36→20:33)
[2017-07-06] MEDS: Polyethylene Glycol 3350* 17 GM PACKET PO SCH (08:37)
[2017-07-06] MEDS: Sertraline* 100 MG TAB PO SCH (08:37)
[2017-07-06] MEDS: Insulin LISPRO* 1 UNITS UNIT SUBCUT SCH ×3 (08:40→17:23)
[2017-07-06] MEDS: Insulin GLARGINE(*) 1 UNITS UNIT SUBCUT SCH ×2 (08:40→20:38)
[2017-07-06] MEDS: Nicotine Inhaler* 10 MG AMP INH PRN ×2 (09:16→20:38)
[2017-07-06] MEDS: Mouth Piece, Nicotine* 1 EACH CARTRIDGE ONE (09:17)
[2017-07-06] MEDS: Atorvastatin* 40 MG TAB PO SCH (17:29)
[2017-07-06] MEDS: Lurasidone(*) 80 MG TAB PO SCH (17:29)
[2017-07-06] MEDS: Omeprazole CAP* 20 MG PO SCH (17:29)
--- NOTE | 2017-07-06 18:27 | HP ---
PSYCHIATRIC HISTORY AND PHYSICAL: DATE OF ADMISSION: 07/05/17 JUSTIFICATION FOR ADMISSION: The patient is in need of 24-hour supervision and care secondary to suicidal ideations. CHIEF COMPLAINT: "I have been seeing things and hearing things, just right now somebody tapped me on the shoulder and I turned around and it was the beast." HISTORY OF PRESENT ILLNESS: The patient is a 51-year-old white female with a history of very severe borderline personality disorder as well as chronic mood instability and early life trauma, who was well known to this hospitalization from several past psychiatric hospitalizations, who now returns to our facility on a voluntary basis seeking admission for suicidal ideations with a plan. She reported in our emergency room that she would overdose on pain medications as well as eat batteries to kill herself. The patient reported that she has been feeling this way for a while and does not feel that she is receiving any support in the community. She was optimistic about inpatient treatment; however, she is stating "I feel like no one is listening to me. I took like 10 of my 's Tylenol pills. The police aren't helping me. I can't think about or feel good about my family right now. I just want to kill myself. I can't take it anymore and I to don't think my meds are working anymore. I am afraid that something will happen to me or my family. " We did receive a report from her , who indicated that she has been extremely limited in her self-care recently, unable to toilet appropriately and there is feces throughout the bathroom and her clothing. He states that this is overwhelming his ability to assist her and that he has been purposefully staying with his parents in order to avoid becoming burned out. The patient is well connected with local health services including at [facility] and does state that she has had recent visits with her therapist Sahil Grewal and her psychiatrist Sarwat Villar, but indicates that both of them encouraged her to come to the hospital. Symptomatically, she is also endorsing psychotic symptoms stating that she had a visual hallucination of a demon that she refers to as the beast. PAST PSYCHIATRIC HISTORY: Significant for multiple hospitalizations on this psychiatric unit with the last being in the middle of May 2017. She has also had prolonged hospitalizations at the [facility]. Currently, she sees Dr. Sarwat Villar and therapist Sahil Grewal at the [facility]. SUBSTANCE ABUSE HISTORY: Denied. PAST MEDICAL HISTORY: Significant for, 1. Diabetes mellitus type 2. 2. Hypothyroidism. 3. Gastroesophageal reflux disease. 4. Chronic pancreatitis. 5. Irritable bowel syndrome. 6. Severe obesity. 7. Chronic back pain. 8. Degenerative disk disease. CURRENT MEDICATIONS: Are as follows: 1. She takes MiraLAX 17 g daily. 2. Naproxen 500 mg twice daily. 3. Trazodone 400 mg at bedtime. 4. Zoloft 200 mg daily. 5. Protonix 40 mg nightly. 6. Zyprexa 7.5 mg p.o. twice daily. 7. Nicotine inhaler 10 mg inhaled every 2 hours. 8. Latuda 80 mg p.o. nightly. 9. Synthroid 250 mcg daily. 10. Lamotrigine 150 mg p.o. b.i.d. 11. Lantus insulin 70 units subcutaneously b.i.d. 12. NovoLog insulin 15 units subsequently 3 times daily with meals. 13. Ibuprofen 600 mg as needed for pain. 14. Neurontin 600 mg p.o. 4 times a day. 15. Colace 200 mg daily as a p.r.n. for constipation. 16. Flexeril 10 mg p.o. b.i.d. as a p.r.n. for pain. 17. Lipitor 40 mg p.o. nightly. 18. Albuterol inhaler 2 puffs as needed for wheezing. ALLERGIES: Include LATEX, SULFA, PENICILLINS, NALBUPHINE, PERPHENAZINE, CIPROFLOXACIN, TRAMADOL, LITHIUM. FAMILY PSYCHIATRIC HISTORY: The patient has no known blood relatives. Her has PTSD, depression, and chronic mental illness. SOCIAL HISTORY: The patient lives with her in an apartment in [place]. She is mentally disabled and receives state benefits. PHYSICAL EXAMINATION VITAL SIGNS: Blood pressure 111/78, heart rate 83, respiratory rate 18, temperature 98.2 degrees Fahrenheit, oxygen saturations are 98% on room air. HEENT: Head is normocephalic, atraumatic. NECK: Supple. CHEST: Clear to auscultation bilaterally. CARDIAC: Reveals normal heart sounds. ABDOMEN: Soft, obese, and nontender. MUSCULOSKELETAL: Exam is within normal limits. NEUROLOGICAL: She is grossly intact with a slow abnormal gait using a roller walker to ambulate. LABORATORY DATA: CBC shows elevations in white blood cells at 10.9, elevations in lymphocyte percentage at 21.0. Complete metabolic panel indicates elevated glucose at 268, elevated alk phos at 126. Urinalysis shows trace leukocyte esterase, 1+ bacteria, and 1+ glucose. Urine drug screen is negative for all substances tested including alcohol. MENTAL STATUS EXAMINATION: The patient is a middle-aged white female who appears older than her stated age. She is morbidly obese and malodorous with limited grooming. She is currently sitting but is able to ambulate with a limp. The patient is cooperative, makes good contact. Speech has a normal rate , tone, and volume. Mood is anxious with full affect. Thought process is linear and goal directed. Thought content is significant for her desire to be in the hospital. She is endorsing suicidal ideations with thoughts of overdosing on pills. She denies homicidality. The patient endorses auditory and visual hallucinations, seeing and hearing demons. Insight and judgment appear to be somewhat limited given her over-utilization of hospital services. Cognitively, she is awake and alert with what would appear to be a slightly low average intellect by virtue of her vocabulary. DIAGNOSES: As follows: Hewitt I: Unspecified mood disorder. Hewitt II: Borderline personality disorder. ASSESSMENT: Taryn is a 51-year-old white female with a history of severe borderline personality disorder, mood instability, occasional psychotic issues and early life trauma, who is hospitalized on a voluntary status secondary to suicidal ideations. This presentation appears to be part of the patient's pattern of attention seeking and frequent hospitalizations. I am uncomfortable changing any of her medications given the fact that she is already on a fairly extensive regimen. Instead, it may be that she just needs some time in the hospital. I am somewhat concerned, however, about the patient' s decreasing level of self-care in the community. It is uncertain whether she would benefit at this time from retirement placement. We can certainly have this evaluated here in the hospital. PLAN: The patient is admitted to the adult behavioral health unit where she is placed on q.15 minute checks for her own safety. I will order PT and OT evaluations and consider referring her to retirement given her lack of self - care. I will leave her medications currently where they are prescribed by her outpatient providers. We will try to reach out to the [facility] for further collateral information. While she is here, she is certainly encouraged to avail herself of all milieu activities including individual and group psychotherapies. [id number]/[facility] #: [id number] AMBROCIO
[2017-07-06] MEDS: traZODone TAB* 100 MG PO SCH (20:34)
[2017-07-07] MEDS: Ibuprofen TAB* 800 MG PO PRN ×3 (01:15→18:05)
[2017-07-07] MEDS: Cyclobenzaprine TAB* 10 MG PO PRN ×3 (01:15→18:04)
[2017-07-07] MEDS: Acetaminophen TAB* 325 MG PO PRN (06:30)
[2017-07-07] MEDS: Levothyroxine TAB* 50 MCG TAB PO SCH (06:30)
[2017-07-07] MEDS: Levothyroxine TAB* 100 MCG TAB PO SCH (06:30)
[2017-07-07] MEDS: Nicotine Inhaler* 10 MG AMP INH PRN ×3 (07:17→18:04)
[2017-07-07] MEDS: Insulin LISPRO* 1 UNITS UNIT SUBCUT SCH ×3 (07:58→16:32)
[2017-07-07] MEDS: Insulin GLARGINE(*) 1 UNITS UNIT SUBCUT SCH ×2 (07:59→20:45)
[2017-07-07] MEDS: OLANzapine TAB* 5 MG PO SCH ×2 (07:59→20:42)
[2017-07-07] MEDS: Sertraline* 100 MG TAB PO SCH (07:59)
[2017-07-07] MEDS: Gabapentin CAP(*) 300 MG PO SCH ×4 (08:00→20:41)
[2017-07-07] MEDS: lamoTRIgine TAB(*) 100 MG PO SCH ×2 (08:00→20:42)
[2017-07-07] MEDS: Polyethylene Glycol 3350* 17 GM PACKET PO SCH (08:03)
--- NOTE | 2017-07-07 13:24 | PN ---
Subjective - Subjective Date of Service: 07/07/17 Service Type: 93970 Hosp care 15 min low complexity Subjective: Taryn states that she's had the best birthday present in the world today "It's being here and getting the help I need." I have discussed the proposition of having her placed in a SNF due to her deficits in self-care and she is actually agreeable with this. She is not acting out, has been going to groups and denies thoughts of self harm today. Objective - Appearance Appearance: Obese Dysmorphic Features: No Hygiene: Mal-odorous Grooming: Disheveled - Behavior Psychomotor Activities: Normal Exhibits Abnormal Movement: No - Attitude and Relatedness Attitude and Relatedness: Cooperative Eye Contact: Fair - Speech Quality: Unpressured Latencies: Normal Quantity: Appropriate - Mood Patient's Decription of Mood: "Good" - Affect Observed Affect: Fair Affect Consistent with: Euthymia - Thought Process Patient's Thought Process: Goal Directed Thought Content: No Passive Wish, No Suicidal Planning, No Homicidal Ideation, No Paranoid Ideation - Sensorium Experiencing Hallucinations: No, Sensorium is Clear Type of Hallucinations: Visual: No, Auditory: No, Command: No - Level of Consciousness Level of Consciousness: Alert Orientation: Yes Intact, Yes Orientated to Time, Yes Orientated to Place, Yes Orientated to Person - Impulse Control Impulse Control: Poor - Insight and Judgement Insight and Judgement: Impaired - Group Participation Particating in Group Activities: Yes - Medication Management Medication Management Adherence: Yes Assessment - Assessment Merits Inpatient Hospitalization: Consolidate Improvements, Pending Safe DC Plan Inpatient DSM-IV Dx: Unspecified Mood DO Clinical Impression: 52 y.o. , white, obese female with a history of low-functioning borderline personality pathology, extensive self-harm and mood instability who arrives voluntarily with complaints of SI with plans to OD on medication. Family notes that she has not been attending to ADLs including grooming and toileting appropriately. Plan - Plan Treatment Plan: Name: TARYN ALFARO Birthdate: 1965 [id number] We have continued the patient's rather extensive medication regimen, including lurasidone, olanzapine, trazodone, gabapentin, lamotrigine and sertraline. Due to increasing deficits in ADLs we have ordered PT/OT evals to determine appropriateness for SNF placement. Continue to treat on an inpatient basis. Continued Medication Management: Continue Outpt Medication Medications: Current Medications Acetaminophen (Tylenol Tab*) 650 mg PO Q4H PRN PRN Reason: for pain; or Temp >101 F Last Admin: 07/07/17 06:30 Dose: 650 mg Al Hydrox/Mg Hydrox/Simethicone (Maalox Plus*) 30 ml PO Q4H PRN PRN Reason: INDIGESTION Albuterol (Ventolin Hfa Inhaler*) 2 puff INH Q4HR PRN PRN Reason: WHEEZING Atorvastatin Calcium (Lipitor*) 40 mg PO QPM [facility] Last Admin: 07/06/17 17:29 Dose: 40 mg Cyclobenzaprine HCl (Flexeril Tab*) 10 mg PO BID PRN PRN Reason: SPASMS - BACK Last Admin: 07/07/17 06:30 Dose: 10 mg Docusate Sodium (Colace Cap*) 200 mg PO DAILY PRN PRN Reason: CONSTIPATION Last Admin: 07/05/17 20:45 Dose: 200 mg Gabapentin (Neurontin Cap(*)) 600 mg PO QID [facility] Last Admin: 07/07/17 11:56 Dose: 600 mg Ibuprofen (Motrin Tab*) 800 mg PO Q8H PRN PRN Reason: PAIN Last Admin: 07/07/17 10:03 Dose: 800 mg Insulin Glargine (Lantus(*)) 70 units SUBCUT BID [facility] Last Admin: 07/07/17 07:59 Dose: 70 units Insulin Human Lispro (Humalog*) 15 units SUBCUT TID WITH MEALS [facility] Last Admin: 07/07/17 11:56 Dose: 15 units Lamotrigine (Lamictal Tab(*)) 150 mg PO BID [facility] Last Admin: 07/07/17 08:00 Dose: 150 mg Levothyroxine Sodium (Synthroid Tab*) 200 mcg PO 0600 [facility] Last Admin: 07/07/17 06:30 Dose: 200 mcg Levothyroxine Sodium (Synthroid Tab*) 50 mcg PO 0600 [facility] Last Admin: 07/07/17 06:30 Dose: 50 mcg Lurasidone HCl (Latuda) 80 mg PO QPM [facility] Last Admin: 07/06/17 17:29 Dose: 80 mg Nicotine (Nicotine Inhaler*) 10 mg INH Q2H PRN PRN Reason: CRAVING Last Admin: 07/07/17 07:17 Dose: 10 mg Olanzapine (Zyprexa Tab*) 7.5 mg PO BID [facility] Last Admin: 07/07/17 07:59 Dose: 7.5 mg Omeprazole (Prilosec Cap*) 20 mg PO QPM [facility] Last Admin: 07/06/17 17:29 Dose: 20 mg Polyethylene Glycol/Electrolytes (Miralax*) 17 gm PO DAILY [facility] Last Admin: 07/07/17 08:03 Dose: Not Given Sertraline HCl (Zoloft*) 200 mg PO QAM [facility] Last Admin: 07/07/17 07:59 Dose: 200 mg Trazodone HCl (Desyrel Tab*) 400 mg PO BEDTIME [facility] Last Admin: 07/06/17 20:34 Dose: 400 mg - Discharge Plan Discharge Plan: Inpatient Hospitalization Lab Results - Lab Results Lab Results: 07/06/17 07/06/17 07/06/17 06:39 07:47 11:18 Glucose POC Glucose (mg/dL) 114 H 128 H 305 H 07/07/17 07/07/17 07:55 11:54 Glucose 227 H POC Glucose (mg/dL) 265 H
[2017-07-07] MEDS ORDERED: OLANzapine TAB*ODT* 10 MG TAB PO PRN (13:48)
[2017-07-07] MEDS: Omeprazole CAP* 20 MG PO SCH (18:04)
[2017-07-07] MEDS: Lurasidone(*) 80 MG TAB PO SCH (18:05)
[2017-07-07] MEDS: Atorvastatin* 40 MG TAB PO SCH (18:05)
[2017-07-07] MEDS: traZODone TAB* 100 MG PO SCH (20:41)
[2017-07-08 08:01] LABS: HDL Cholesterol 47.5 mg/dL
[2017-07-08] MEDS: Polyethylene Glycol 3350* 17 GM PACKET PO SCH (08:07)
[2017-07-08] MEDS: lamoTRIgine TAB(*) 100 MG PO SCH ×2 (08:22→21:02)
[2017-07-08] MEDS: Gabapentin CAP(*) 300 MG PO SCH ×4 (08:24→21:03)
[2017-07-08] MEDS: OLANzapine TAB* 5 MG PO SCH ×2 (08:25→21:01)
[2017-07-08] MEDS: Nicotine Inhaler* 10 MG AMP INH PRN ×2 (08:55→16:28)
[2017-07-08] MEDS: Sertraline* 100 MG TAB PO SCH (08:56)
[2017-07-08] MEDS: Levothyroxine TAB* 100 MCG TAB PO SCH (08:57)
[2017-07-08] MEDS: Insulin LISPRO* 1 UNITS UNIT SUBCUT SCH ×3 (09:01→16:51)
[2017-07-08] MEDS: Levothyroxine TAB* 50 MCG TAB PO SCH (09:01)
[2017-07-08] MEDS: Insulin GLARGINE(*) 1 UNITS UNIT SUBCUT SCH ×2 (09:02→21:07)
[2017-07-08] MEDS: Cyclobenzaprine TAB* 10 MG PO PRN ×2 (11:49→23:45)
--- NOTE | 2017-07-08 15:42 | PN ---
Subjective - Subjective Date of Service: 07/08/17 Service Type: 12837 Hosp care 15 min low complexity Subjective: Taryn is working with the PT therapist when I arrive. She has mostly somatic complaints today, informing me of back and pelvic pain and stating that she hears a "cracking noise" in her hip and back joints. She is invested in going to a rehab facility and I understand the PT and OT teams are in support of this. The patient denies SI and states that her medications are working. Objective - Appearance Appearance: Obese Dysmorphic Features: No Hygiene: Mal-odorous Grooming: Disheveled - Behavior Psychomotor Activities: Normal Exhibits Abnormal Movement: No - Attitude and Relatedness Attitude and Relatedness: Cooperative Eye Contact: Fair - Speech Quality: Unpressured Latencies: Normal Quantity: Appropriate - Mood Patient's Decription of Mood: "Fine" - Affect Observed Affect: Fair Affect Consistent with: Euthymia - Thought Process Patient's Thought Process: Coherent Thought Content: No Passive Wish, No Suicidal Planning, No Homicidal Ideation, No Paranoid Ideation - Sensorium Experiencing Hallucinations: No, Sensorium is Clear Type of Hallucinations: Visual: No, Auditory: No, Command: No - Level of Consciousness Level of Consciousness: Alert Orientation: Yes Intact, Yes Orientated to Time, Yes Orientated to Place, Yes Orientated to Person - Impulse Control Impulse Control: Poor - Insight and Judgement Insight and Judgement: Impaired - Group Participation Particating in Group Activities: Yes - Medication Management Medication Management Adherence: Yes Assessment - Assessment Merits Inpatient Hospitalization: Consolidate Improvements, Pending Safe DC Plan Inpatient DSM-IV Dx: Unspecified Mood DO Clinical Impression: 52 y.o. , white, obese female with a history of low-functioning borderline personality pathology, extensive self-harm and mood instability who arrives voluntarily with complaints of SI with plans to OD on medication. Family notes that she has not been attending to ADLs including grooming and toileting appropriately. Plan - Plan Treatment Plan: Name: TARYN ALFARO Birthdate: 1965 [id number] We have continued the patient's rather extensive medication regimen, including lurasidone, olanzapine, trazodone, gabapentin, lamotrigine and sertraline. Due to increasing deficits in ADLs, PT and OT consultants are recommending SNF placement for rehab. Continue to treat on an inpatient basis. Continued Medication Management: Continue Outpt Medication Medications: Current Medications Acetaminophen (Tylenol Tab*) 650 mg PO Q4H PRN PRN Reason: for pain; or Temp >101 F Last Admin: 07/07/17 06:30 Dose: 650 mg Al Hydrox/Mg Hydrox/Simethicone (Maalox Plus*) 30 ml PO Q4H PRN PRN Reason: INDIGESTION Albuterol (Ventolin Hfa Inhaler*) 2 puff INH Q4HR PRN PRN Reason: WHEEZING Atorvastatin Calcium (Lipitor*) 40 mg PO QPM [facility] Last Admin: 07/07/17 18:05 Dose: 40 mg Cyclobenzaprine HCl (Flexeril Tab*) 10 mg PO BID PRN PRN Reason: SPASMS - BACK Last Admin: 07/08/17 11:49 Dose: 10 mg Docusate Sodium (Colace Cap*) 200 mg PO DAILY PRN PRN Reason: CONSTIPATION Last Admin: 07/05/17 20:45 Dose: 200 mg Gabapentin (Neurontin Cap(*)) 600 mg PO QID [facility] Last Admin: 07/08/17 12:46 Dose: 600 mg Ibuprofen (Motrin Tab*) 800 mg PO Q8H PRN PRN Reason: PAIN Last Admin: 07/07/17 18:05 Dose: 800 mg Insulin Glargine (Lantus(*)) 70 units SUBCUT BID [facility] Last Admin: 07/08/17 09:02 Dose: 70 units Insulin Human Lispro (Humalog*) 15 units SUBCUT TID WITH MEALS [facility] Last Admin: 07/08/17 12:25 Dose: Not Given Lamotrigine (Lamictal Tab(*)) 150 mg PO BID [facility] Last Admin: 07/08/17 08:22 Dose: 150 mg Levothyroxine Sodium (Synthroid Tab*) 200 mcg PO 0600 [facility] Last Admin: 07/08/17 08:57 Dose: 200 mcg Levothyroxine Sodium (Synthroid Tab*) 50 mcg PO 0600 [facility] Last Admin: 07/08/17 09:01 Dose: 50 mcg Lurasidone HCl (Latuda) 80 mg PO QPM [facility] Last Admin: 07/07/17 18:05 Dose: 80 mg Nicotine (Nicotine Inhaler*) 10 mg INH Q2H PRN PRN Reason: CRAVING Last Admin: 07/08/17 08:55 Dose: 10 mg Olanzapine (Zyprexa Tab*) 7.5 mg PO BID [facility] Last Admin: 07/08/17 08:25 Dose: 7.5 mg Olanzapine (Zyprexa *Odt*) 10 mg PO BID PRN PRN Reason: AGITATION Last Admin: 07/07/17 14:03 Dose: 10 mg Omeprazole (Prilosec Cap*) 20 mg PO QPM [facility] Last Admin: 07/07/17 18:04 Dose: 20 mg Polyethylene Glycol/Electrolytes (Miralax*) 17 gm PO DAILY [facility] Last Admin: 07/08/17 08:07 Dose: Not Given Sertraline HCl (Zoloft*) 200 mg PO QAM [facility] Last Admin: 07/08/17 08:56 Dose: 200 mg Trazodone HCl (Desyrel Tab*) 400 mg PO BEDTIME [facility] Last Admin: 07/07/17 20:41 Dose: 400 mg - Discharge Plan Discharge Plan: Inpatient Hospitalization Lab Results - Lab Results Lab Results: 07/06/17 07/06/17 07/06/17 06:39 07:47 11:18 Glucose POC Glucose (mg/dL) 114 H 128 H 305 H Hemoglobin A1c Triglycerides Cholesterol LDL Cholesterol HDL Cholesterol 07/07/17 07/07/17 07/07/17 07:50 07:55 11:54 Glucose 227 H POC Glucose (mg/dL) 265 H Hemoglobin A1c 9.8 H Triglycerides 154 Cholesterol 109 LDL Cholesterol 31 HDL Cholesterol 47.5 07/07/17 07/07/17 07/08/17 16:23 20:55 07:57 Glucose POC Glucose (mg/dL) 184 H 206 H 105 H Hemoglobin A1c Triglycerides Cholesterol LDL Cholesterol HDL Cholesterol 07/08/17 12:02 Glucose POC Glucose (mg/dL) 72 Hemoglobin A1c Triglycerides Cholesterol LDL Cholesterol HDL Cholesterol
[2017-07-08] MEDS ORDERED: Mouth Piece, Nicotine* 1 EACH CARTRIDGE ONE (16:27)
[2017-07-08] MEDS: Mouth Piece, Nicotine* 1 EACH CARTRIDGE ONE (16:28)
[2017-07-08] MEDS: Ibuprofen TAB* 800 MG PO PRN ×2 (16:28→23:45)
--- NOTE | 2017-07-08 16:37 | RAD ---
Indication: Hip pain. CT of the pelvis was performed without contrast. No retroperitoneal adenopathy is noted. No abnormally dilated loops of bowel are noted. The urinary bladder is unremarkable. Sacroiliac joints are intact. No fracture of the pelvis is noted. There are foreshortening femoral head and neck bilaterally. This is likely a chronic issue. No fracture is noted. Calcifications along the popliteus tendons are noted. IMPRESSION: Foreshortened femoral necks bilaterally likely congenital in nature. No fracture of the pelvis or right femur is noted.
--- NOTE | 2017-07-08 16:43 | RAD ---
Indication: Urinary incontinence. CT of the lumbar spine was obtained in the axial plane. Sagittal and coronal reconstructed images were obtained. The vertebral bodies appear normal in height. No fracture is noted. Degenerative changes at L5-S1 with calcification of the posterior longitudinal ligament is noted. No fracture is noted. The spinal canal appears to be intact. No evidence of spinal stenosis is noted at any of the lumbar disc levels. IMPRESSION: No fracture or spinal canal compromise is noted with multilevel degenerative disc disease.
[2017-07-08] MEDS: Lurasidone(*) 80 MG TAB PO SCH (16:50)
[2017-07-08] MEDS: Omeprazole CAP* 20 MG PO SCH (16:50)
[2017-07-08] MEDS: Atorvastatin* 40 MG TAB PO SCH (16:51)
[2017-07-08] MEDS: traZODone TAB* 100 MG PO SCH (21:02)
[2017-07-09] MEDS: Levothyroxine TAB* 100 MCG TAB PO SCH (07:10)
[2017-07-09] MEDS: Levothyroxine TAB* 50 MCG TAB PO SCH (07:10)
[2017-07-09] MEDS: Ibuprofen TAB* 800 MG PO PRN (07:10)
[2017-07-09] MEDS: Insulin GLARGINE(*) 1 UNITS UNIT SUBCUT SCH ×2 (07:59→21:16)
[2017-07-09] MEDS: Insulin LISPRO* 1 UNITS UNIT SUBCUT SCH ×3 (07:59→16:54)
[2017-07-09] MEDS: OLANzapine TAB* 5 MG PO SCH ×2 (08:01→20:17)
[2017-07-09] MEDS: Sertraline* 100 MG TAB PO SCH (08:02)
[2017-07-09] MEDS: Gabapentin CAP(*) 300 MG PO SCH ×4 (08:02→20:16)
[2017-07-09] MEDS: lamoTRIgine TAB(*) 100 MG PO SCH ×2 (08:03→20:16)
[2017-07-09] MEDS: Polyethylene Glycol 3350* 17 GM PACKET PO SCH (08:05)
[2017-07-09] MEDS: Cyclobenzaprine TAB* 10 MG PO PRN (10:27)
[2017-07-09] MEDS: Acetaminophen TAB* 325 MG PO PRN (12:33)
[2017-07-09] MEDS ORDERED: Insulin LISPRO* 1 UNITS UNIT SUBCUT ONE (13:50)
[2017-07-09] MEDS: Lurasidone(*) 80 MG TAB PO SCH (16:53)
[2017-07-09] MEDS: Omeprazole CAP* 20 MG PO SCH (16:53)
[2017-07-09] MEDS: Atorvastatin* 40 MG TAB PO SCH (16:53)
[2017-07-09] MEDS: traZODone TAB* 100 MG PO SCH (20:17)
[2017-07-10] MEDS: Ibuprofen TAB* 800 MG PO PRN (02:20)
[2017-07-10] MEDS: Cyclobenzaprine TAB* 10 MG PO PRN ×2 (02:20→20:29)
[2017-07-10] MEDS ORDERED: Mouth Piece, Nicotine* 1 EACH CARTRIDGE ONE (02:26)
[2017-07-10] MEDS: Nicotine Inhaler* 10 MG AMP INH PRN ×2 (02:30→20:36)
[2017-07-10] MEDS: Levothyroxine TAB* 50 MCG TAB PO SCH (07:46)
[2017-07-10] MEDS: Levothyroxine TAB* 100 MCG TAB PO SCH (07:46)
[2017-07-10] MEDS: Insulin LISPRO* 1 UNITS UNIT SUBCUT SCH ×3 (07:47→16:59)
[2017-07-10] MEDS: Gabapentin CAP(*) 300 MG PO SCH ×4 (08:39→20:27)
[2017-07-10] MEDS: lamoTRIgine TAB(*) 100 MG PO SCH ×2 (08:39→20:26)
[2017-07-10] MEDS: OLANzapine TAB* 5 MG PO SCH ×2 (08:40→20:24)
[2017-07-10] MEDS: Polyethylene Glycol 3350* 17 GM PACKET PO SCH (08:41)
[2017-07-10] MEDS: Sertraline* 100 MG TAB PO SCH (08:41)
[2017-07-10] MEDS: Insulin GLARGINE(*) 1 UNITS UNIT SUBCUT SCH ×2 (09:08→20:34)
[2017-07-10] MEDS: Atorvastatin* 40 MG TAB PO SCH (16:59)
[2017-07-10] MEDS: Omeprazole CAP* 20 MG PO SCH (16:59)
[2017-07-10] MEDS: Lurasidone(*) 80 MG TAB PO SCH (16:59)
--- NOTE | 2017-07-10 17:37 | PN ---
Subjective - Subjective Date of Service: 07/10/17 Service Type: 72890 Hosp care 15 min low complexity Subjective: Taryn as usual continues to be attention seeking and somatic. Smells of urine is very strong. Didn't complain of pain during the assessment. Talked about OD and repeated hospitalizations in [facility]/ [place]. Focused on going to a SNF as she is unable to care for self. Refused insulin this morning resulting in high blood sugarx2. Objective - Appearance Appearance: Obese Dysmorphic Features: No Hygiene: Mal-odorous Grooming: Disheveled - Behavior Psychomotor Activities: Normal Exhibits Abnormal Movement: No - Attitude and Relatedness Attitude and Relatedness: Needy Eye Contact: Fair - Speech Quality: Unpressured Latencies: Normal Quantity: Appropriate - Mood Patient's Decription of Mood: "Anxious" - Affect Observed Affect: Constricted Affect Consistent with: Dysphoria - Thought Process Patient's Thought Process: Coherent, Goal Directed Thought Content: No Passive Wish, No Suicidal Planning, No Homicidal Ideation, No Paranoid Ideation - Sensorium Experiencing Hallucinations: No, Sensorium is Clear Type of Hallucinations: Visual: No, Auditory: No, Command: No - Level of Consciousness Level of Consciousness: Alert Orientation: Yes Intact, Yes Orientated to Time, Yes Orientated to Place, Yes Orientated to Person - Impulse Control Impulse Control: Tenuous - Insight and Judgement Insight and Judgement: Impaired - Group Participation Particating in Group Activities: No - Medication Management Medication Management Adherence: Yes Assessment - Assessment Merits Inpatient Hospitalization: For Immediate Safety, For Stabilization, Pending Safe DC Plan Inpatient DSM-IV Dx: Unspecified Mood DO Plan - Plan Treatment Plan: Name: TARYN ALFARO Birthdate: 1965 [id number] Continued Medication Management: Continue Outpt Medication Medications: Current Medications Acetaminophen (Tylenol Tab*) 650 mg PO Q4H PRN PRN Reason: for pain; or Temp >101 F Last Admin: 07/09/17 12:33 Dose: 650 mg Al Hydrox/Mg Hydrox/Simethicone (Maalox Plus*) 30 ml PO Q4H PRN PRN Reason: INDIGESTION Albuterol (Ventolin Hfa Inhaler*) 2 puff INH Q4HR PRN PRN Reason: WHEEZING Atorvastatin Calcium (Lipitor*) 40 mg PO QPM [facility] Last Admin: 07/10/17 16:59 Dose: 40 mg Cyclobenzaprine HCl (Flexeril Tab*) 10 mg PO BID PRN PRN Reason: SPASMS - BACK Last Admin: 07/10/17 02:20 Dose: 10 mg Docusate Sodium (Colace Cap*) 200 mg PO DAILY PRN PRN Reason: CONSTIPATION Last Admin: 07/05/17 20:45 Dose: 200 mg Gabapentin (Neurontin Cap(*)) 600 mg PO QID [facility] Last Admin: 07/10/17 16:57 Dose: 600 mg Ibuprofen (Motrin Tab*) 800 mg PO Q8H PRN PRN Reason: PAIN Last Admin: 07/10/17 02:20 Dose: 800 mg Insulin Glargine (Lantus(*)) 70 units SUBCUT BID [facility] Last Admin: 07/10/17 09:08 Dose: 70 units Insulin Human Lispro (Humalog*) 10 units SUBCUT TID WITH MEALS [facility] Last Admin: 07/10/17 16:59 Dose: 10 units Lamotrigine (Lamictal Tab(*)) 150 mg PO BID [facility] Last Admin: 07/10/17 08:39 Dose: 150 mg Levothyroxine Sodium (Synthroid Tab*) 200 mcg PO 0600 [facility] Last Admin: 07/10/17 07:46 Dose: 200 mcg Levothyroxine Sodium (Synthroid Tab*) 50 mcg PO 0600 [facility] Last Admin: 07/10/17 07:46 Dose: 50 mcg Lurasidone HCl (Latuda) 80 mg PO QPM [facility] Last Admin: 07/10/17 16:59 Dose: 80 mg Nicotine (Nicotine Inhaler*) 10 mg INH Q2H PRN PRN Reason: CRAVING Last Admin: 07/10/17 02:30 Dose: 10 mg Olanzapine (Zyprexa Tab*) 7.5 mg PO BID [facility] Last Admin: 07/10/17 08:40 Dose: 7.5 mg Olanzapine (Zyprexa *Odt*) 10 mg PO BID PRN PRN Reason: AGITATION Last Admin: 07/07/17 14:03 Dose: 10 mg Omeprazole (Prilosec Cap*) 20 mg PO QPM [facility] Last Admin: 07/10/17 16:59 Dose: 20 mg Polyethylene Glycol/Electrolytes (Miralax*) 17 gm PO DAILY [facility] Last Admin: 07/10/17 08:41 Dose: Not Given Sertraline HCl (Zoloft*) 200 mg PO QAM [facility] Last Admin: 07/10/17 08:41 Dose: 200 mg Trazodone HCl (Desyrel Tab*) 400 mg PO BEDTIME [facility] Last Admin: 07/09/17 20:17 Dose: 400 mg - Discharge Plan Discharge Plan: Outpatient Follow Up Outpatient Program: Rehab Nursing Facility.
[2017-07-10] MEDS: traZODone TAB* 100 MG PO SCH (20:25)
[2017-07-11] MEDS: Cyclobenzaprine TAB* 10 MG PO PRN ×2 (02:00→20:29)
[2017-07-11] MEDS: Ibuprofen TAB* 800 MG PO PRN (02:00)
[2017-07-11] MEDS: Levothyroxine TAB* 50 MCG TAB PO SCH (06:30)
[2017-07-11] MEDS: Levothyroxine TAB* 100 MCG TAB PO SCH (06:30)
[2017-07-11] MEDS: Insulin LISPRO* 1 UNITS UNIT SUBCUT SCH ×3 (07:31→17:00)
[2017-07-11] MEDS: Gabapentin CAP(*) 300 MG PO SCH ×4 (07:32→20:13)
[2017-07-11] MEDS: Sertraline* 100 MG TAB PO SCH (07:32)
[2017-07-11] MEDS: Insulin GLARGINE(*) 1 UNITS UNIT SUBCUT SCH ×2 (07:32→21:02)
[2017-07-11] MEDS: OLANzapine TAB* 5 MG PO SCH ×2 (07:32→20:17)
[2017-07-11] MEDS: lamoTRIgine TAB(*) 100 MG PO SCH ×2 (07:33→20:16)
[2017-07-11] MEDS: Polyethylene Glycol 3350* 17 GM PACKET PO SCH (07:33)
--- NOTE | 2017-07-11 15:22 | PN ---
Subjective - Subjective Date of Service: 07/11/17 Service Type: 25669 Hosp care 15 min low complexity Subjective: Taryn was seen for f/u along with unit SW, Tracey Pradhan. Taryn denies SI today and requests d/c to home "in order to be with my family for Mandy." I later got a call from her mother, Chel William, who reports to extremely concerned about Taryn and would like her discharge held off until a family meeting can be held. I appreciate from PT/OT notes that those services are no longer recommending SNF placement and have signed off her case. Taryn has been calm and under control throughout the hospitalization. CT of her pelvis and spine show degenerative disc disease but no acute pathology. Objective - Appearance Appearance: Obese Dysmorphic Features: No Hygiene: Normal Grooming: Fairly Well Kept - Behavior Psychomotor Activities: Normal Exhibits Abnormal Movement: No - Attitude and Relatedness Attitude and Relatedness: Cooperative Eye Contact: Fair - Speech Quality: Unpressured Latencies: Normal Quantity: Appropriate - Mood Patient's Decription of Mood: "Good" - Affect Observed Affect: Fair Affect Consistent with: Euthymia - Thought Process Patient's Thought Process: Coherent Thought Content: No Passive Wish, No Suicidal Planning, No Homicidal Ideation, No Paranoid Ideation - Sensorium Experiencing Hallucinations: No, Sensorium is Clear Type of Hallucinations: Visual: No, Auditory: No, Command: No - Level of Consciousness Level of Consciousness: Alert Orientation: Yes Intact, Yes Orientated to Time, Yes Orientated to Place, Yes Orientated to Person - Impulse Control Impulse Control: Tenuous - Insight and Judgement Insight and Judgement: Fair - Group Participation Particating in Group Activities: Yes - Medication Management Medication Management Adherence: Yes Assessment - Assessment Merits Inpatient Hospitalization: Consolidate Improvements, Pending Safe DC Plan Inpatient DSM-IV Dx: Unspecified Mood DO Clinical Impression: 52 y.o. , white, obese female with a history of low-functioning borderline personality pathology, extensive self-harm and mood instability who arrives voluntarily with complaints of SI with plans to OD on medication. Family notes that she has not been attending to ADLs including grooming and toileting appropriately. Plan - Plan Treatment Plan: Name: TARYN ALFARO Birthdate: 1965 [id number] We have continued the patient's rather extensive medication regimen, including lurasidone, olanzapine, trazodone, gabapentin, lamotrigine and sertraline. The patient has clearly demonstrated during the course of this admission thus far that she can meet her own ADLs. Will have family meeting tomorrow (07/12) at 11 :00. Continue to treat on an inpatient basis. Continued Medication Management: Continue Outpt Medication Medications: Current Medications Acetaminophen (Tylenol Tab*) 650 mg PO Q4H PRN PRN Reason: for pain; or Temp >101 F Last Admin: 07/09/17 12:33 Dose: 650 mg Al Hydrox/Mg Hydrox/Simethicone (Maalox Plus*) 30 ml PO Q4H PRN PRN Reason: INDIGESTION Albuterol (Ventolin Hfa Inhaler*) 2 puff INH Q4HR PRN PRN Reason: WHEEZING Atorvastatin Calcium (Lipitor*) 40 mg PO QPM [facility] Last Admin: 07/10/17 16:59 Dose: 40 mg Cyclobenzaprine HCl (Flexeril Tab*) 10 mg PO BID PRN PRN Reason: SPASMS - BACK Last Admin: 07/11/17 02:00 Dose: 10 mg Docusate Sodium (Colace Cap*) 200 mg PO DAILY PRN PRN Reason: CONSTIPATION Last Admin: 07/05/17 20:45 Dose: 200 mg Gabapentin (Neurontin Cap(*)) 600 mg PO QID [facility] Last Admin: 07/11/17 12:05 Dose: 600 mg Ibuprofen (Motrin Tab*) 800 mg PO Q8H PRN PRN Reason: PAIN Last Admin: 07/11/17 02:00 Dose: 800 mg Insulin Glargine (Lantus(*)) 70 units SUBCUT BID [facility] Last Admin: 07/11/17 07:32 Dose: 70 units Insulin Human Lispro (Humalog*) 10 units SUBCUT TID WITH MEALS [facility] Last Admin: 07/11/17 11:36 Dose: 10 units Lamotrigine (Lamictal Tab(*)) 150 mg PO BID [facility] Last Admin: 07/11/17 07:33 Dose: 150 mg Levothyroxine Sodium (Synthroid Tab*) 200 mcg PO 0600 [facility] Last Admin: 07/11/17 06:30 Dose: 200 mcg Levothyroxine Sodium (Synthroid Tab*) 50 mcg PO 0600 [facility] Last Admin: 07/11/17 06:30 Dose: 50 mcg Lurasidone HCl (Latuda) 80 mg PO QPM [facility] Last Admin: 07/10/17 16:59 Dose: 80 mg Nicotine (Nicotine Inhaler*) 10 mg INH Q2H PRN PRN Reason: CRAVING Last Admin: 07/10/17 20:36 Dose: 10 mg Olanzapine (Zyprexa Tab*) 7.5 mg PO BID [facility] Last Admin: 07/11/17 07:32 Dose: 7.5 mg Olanzapine (Zyprexa *Odt*) 10 mg PO BID PRN PRN Reason: AGITATION Last Admin: 07/07/17 14:03 Dose: 10 mg Omeprazole (Prilosec Cap*) 20 mg PO QPM [facility] Last Admin: 07/10/17 16:59 Dose: 20 mg Polyethylene Glycol/Electrolytes (Miralax*) 17 gm PO DAILY [facility] Last Admin: 07/11/17 07:33 Dose: Not Given Sertraline HCl (Zoloft*) 200 mg PO QAM [facility] Last Admin: 07/11/17 07:32 Dose: 200 mg Trazodone HCl (Desyrel Tab*) 400 mg PO BEDTIME [facility] Last Admin: 07/10/17 20:25 Dose: 400 mg - Discharge Plan Discharge Plan: Inpatient Hospitalization
[2017-07-11] MEDS: Acetaminophen TAB* 325 MG PO PRN (15:39)
[2017-07-11] MEDS: Omeprazole CAP* 20 MG PO SCH (17:03)
[2017-07-11] MEDS: Lurasidone(*) 80 MG TAB PO SCH (17:03)
[2017-07-11] MEDS: Atorvastatin* 40 MG TAB PO SCH (17:03)
[2017-07-11] MEDS: traZODone TAB* 100 MG PO SCH (20:15)
[2017-07-12] MEDS: Ibuprofen TAB* 800 MG PO PRN (05:31)
[2017-07-12] MEDS: Cyclobenzaprine TAB* 10 MG PO PRN ×2 (05:35→17:17)
[2017-07-12] MEDS: Acetaminophen TAB* 325 MG PO PRN ×3 (06:04→21:38)
[2017-07-12] MEDS: Insulin LISPRO* 1 UNITS UNIT SUBCUT SCH ×3 (08:13→17:13)
[2017-07-12] MEDS: Insulin GLARGINE(*) 1 UNITS UNIT SUBCUT SCH ×2 (08:16→21:33)
[2017-07-12] MEDS: Sertraline* 100 MG TAB PO SCH (08:53)
[2017-07-12] MEDS: Levothyroxine TAB* 100 MCG TAB PO SCH (08:53)
[2017-07-12] MEDS: Levothyroxine TAB* 50 MCG TAB PO SCH (08:53)
[2017-07-12] MEDS: Gabapentin CAP(*) 300 MG PO SCH ×4 (08:54→21:35)
[2017-07-12] MEDS: lamoTRIgine TAB(*) 100 MG PO SCH ×2 (08:54→21:33)
[2017-07-12] MEDS: OLANzapine TAB* 5 MG PO SCH ×2 (08:55→21:34)
[2017-07-12] MEDS: Polyethylene Glycol 3350* 17 GM PACKET PO SCH (08:56)
[2017-07-12] MEDS: Nicotine Inhaler* 10 MG AMP INH PRN (13:07)
--- NOTE | 2017-07-12 14:09 | PN ---
Subjective - Subjective Date of Service: 07/12/17 Service Type: 25609 Family Medical Psyc Subjective: Taryn is seen for a therapeutic family meeting attended by her , David Alfaro, mother, Chel William, and GAGE Pradhan. and mother voice concerns over Taryn's ability to function independently in the community. They feel that Taryn has been depressed and they worry about her ability to stay safe. They feel she warrants a higher level of services, such as a intermediate facility or [facility]. Taryn states that she fears that she might fall and seriously injure herself because of weakness and back pain issues. This provider and the licensed clinical social worker provide warmth and support to Taryn and her family as well as psychoeducation about Borderline Personality DO ; specifically that this condition is not amenable to inpatient psychiatric care. We also inform the family that both PT and OT services have rendered their professional assessments that Taryn does not require SNF-level services. Instead, we are encouraging utilization of outpatient supports such as outpatient PT/OT, in-home visiting nursing services, weekly sessions with Taryn' s outpatient psychotherapist, Sahil Grewal, and enhanced community MH support throught the [facility] program. Taryn and her family, after being educated about what we perceive are her needs, are agreeable with outpatient management. Taryn continues to deny SI or psychotic experiences. Objective - Appearance Appearance: Obese Dysmorphic Features: No Hygiene: Mal-odorous Grooming: Disheveled - Behavior Psychomotor Activities: Normal Exhibits Abnormal Movement: No - Attitude and Relatedness Attitude and Relatedness: Cooperative Eye Contact: Fair - Speech Quality: Unpressured Latencies: Normal Quantity: Appropriate - Mood Patient's Decription of Mood: "Okay" - Affect Observed Affect: Fair Affect Consistent with: Euthymia - Thought Process Patient's Thought Process: Coherent Thought Content: No Passive Wish, No Suicidal Planning, No Homicidal Ideation, No Paranoid Ideation - Sensorium Experiencing Hallucinations: No, Sensorium is Clear Type of Hallucinations: Visual: No, Auditory: No, Command: No - Level of Consciousness Level of Consciousness: Alert Orientation: Yes Intact, Yes Orientated to Time, Yes Orientated to Place, Yes Orientated to Person - Impulse Control Impulse Control: Tenuous - Insight and Judgement Insight and Judgement: Fair - Group Participation Particating in Group Activities: No - Medication Management Medication Management Adherence: Yes Assessment - Assessment Merits Inpatient Hospitalization: Consolidate Improvements, Pending Safe DC Plan Inpatient DSM-IV Dx: Unspecified Mood DO Clinical Impression: 52 y.o. , white, obese female with a history of low-functioning borderline personality pathology, extensive self-harm and mood instability who arrives voluntarily with complaints of SI with plans to OD on medication. Family notes that she has not been attending to ADLs including grooming and toileting appropriately. Plan - Plan Treatment Plan: Name: TARYN ALFARO Birthdate: 1965 [id number] We have continued the patient's rather extensive medication regimen, including lurasidone, olanzapine, trazodone, gabapentin, lamotrigine and sertraline. The patient has clearly demonstrated during the course of this admission thus far that she can meet her own ADLs. Family meeting results in family agreeing with outpatient management. Consider d/c this week. Continued Medication Management: Continue Outpt Medication Medications: Current Medications Acetaminophen (Tylenol Tab*) 650 mg PO Q4H PRN PRN Reason: for pain; or Temp >101 F Last Admin: 07/12/17 06:04 Dose: 650 mg Al Hydrox/Mg Hydrox/Simethicone (Maalox Plus*) 30 ml PO Q4H PRN PRN Reason: INDIGESTION Albuterol (Ventolin Hfa Inhaler*) 2 puff INH Q4HR PRN PRN Reason: WHEEZING Atorvastatin Calcium (Lipitor*) 40 mg PO QPM [facility] Last Admin: 07/11/17 17:03 Dose: 40 mg Cyclobenzaprine HCl (Flexeril Tab*) 10 mg PO BID PRN PRN Reason: SPASMS - BACK Last Admin: 07/12/17 05:35 Dose: 10 mg Docusate Sodium (Colace Cap*) 200 mg PO DAILY PRN PRN Reason: CONSTIPATION Last Admin: 07/05/17 20:45 Dose: 200 mg Gabapentin (Neurontin Cap(*)) 600 mg PO QID [facility] Last Admin: 07/12/17 13:04 Dose: 600 mg Ibuprofen (Motrin Tab*) 800 mg PO Q8H PRN PRN Reason: PAIN Last Admin: 07/12/17 05:31 Dose: 800 mg Insulin Glargine (Lantus(*)) 70 units SUBCUT BID [facility] Last Admin: 07/12/17 08:16 Dose: 70 units Insulin Human Lispro (Humalog*) 10 units SUBCUT TID WITH MEALS [facility] Last Admin: 07/12/17 12:05 Dose: 10 units Lamotrigine (Lamictal Tab(*)) 150 mg PO BID [facility] Last Admin: 07/12/17 08:54 Dose: 150 mg Levothyroxine Sodium (Synthroid Tab*) 200 mcg PO 0600 [facility] Last Admin: 07/12/17 08:53 Dose: 200 mcg Levothyroxine Sodium (Synthroid Tab*) 50 mcg PO 0600 [facility] Last Admin: 07/12/17 08:53 Dose: 50 mcg Lurasidone HCl (Latuda) 80 mg PO QPM [facility] Last Admin: 07/11/17 17:03 Dose: 80 mg Nicotine (Nicotine Inhaler*) 10 mg INH Q2H PRN PRN Reason: CRAVING Last Admin: 07/12/17 13:07 Dose: 10 mg Olanzapine (Zyprexa Tab*) 7.5 mg PO BID [facility] Last Admin: 07/12/17 08:55 Dose: 7.5 mg Olanzapine (Zyprexa *Odt*) 10 mg PO BID PRN PRN Reason: AGITATION Last Admin: 07/07/17 14:03 Dose: 10 mg Omeprazole (Prilosec Cap*) 20 mg PO QPM [facility] Last Admin: 07/11/17 17:03 Dose: 20 mg Polyethylene Glycol/Electrolytes (Miralax*) 17 gm PO DAILY [facility] Last Admin: 07/12/17 08:56 Dose: Not Given Sertraline HCl (Zoloft*) 200 mg PO QAM [facility] Last Admin: 07/12/17 08:53 Dose: 200 mg Trazodone HCl (Desyrel Tab*) 400 mg PO BEDTIME [facility] Last Admin: 07/11/17 20:15 Dose: 400 mg - Discharge Plan Discharge Plan: Outpatient Follow Up Outpatient Program: [facility]
[2017-07-12] MEDS: Lurasidone(*) 80 MG TAB PO SCH (17:16)
[2017-07-12] MEDS: Omeprazole CAP* 20 MG PO SCH (17:17)
[2017-07-12] MEDS: Atorvastatin* 40 MG TAB PO SCH (17:17)
[2017-07-12] MEDS: traZODone TAB* 100 MG PO SCH (21:33)
[2017-07-13] MEDS: Levothyroxine TAB* 50 MCG TAB PO SCH (07:35)
[2017-07-13] MEDS: Levothyroxine TAB* 100 MCG TAB PO SCH (07:35)
[2017-07-13] MEDS: Insulin GLARGINE(*) 1 UNITS UNIT SUBCUT SCH (07:59)
[2017-07-13 08:01] VITALS: BP 164/92
[2017-07-13] MEDS: Insulin LISPRO* 1 UNITS UNIT SUBCUT SCH ×2 (08:19→12:10)
[2017-07-13] MEDS: lamoTRIgine TAB(*) 100 MG PO SCH (09:16)
[2017-07-13] MEDS: Sertraline* 100 MG TAB PO SCH (09:16)
[2017-07-13] MEDS: Gabapentin CAP(*) 300 MG PO SCH ×2 (09:17→12:41)
[2017-07-13] MEDS: OLANzapine TAB* 5 MG PO SCH (09:18)
[2017-07-13] MEDS: Polyethylene Glycol 3350* 17 GM PACKET PO SCH (09:20)
[2017-07-13] MEDS: Nicotine Inhaler* 10 MG AMP INH PRN (10:24)
--- NOTE | 2017-07-13 11:37 | PN ---
[facility]: Group Therapy Note - Service Type Service Type: 19279 Group Psychotherapy - Cognitive Behavioral Group Therapy ( CBT):Patient was attentive and participatory in CBT programming this morning, and remained in good behavioral control. Patient expressed positive insights regarding relevant treatment interventions and goals.
[2017-07-13] MEDS: Cyclobenzaprine TAB* 10 MG PO PRN (12:39)
[2017-07-13] MEDS: Ibuprofen TAB* 800 MG PO PRN (12:40)
--- NOTE | 2017-07-14 04:35 | DS ---
DISCHARGE SUMMARY: DATE OF ADMISSION: 07/05/17 DATE OF DISCHARGE: 07/13/17 DISCHARGE DIAGNOSES: Are as follows: Ivel I: Unspecified mood disorder. Ivel II: Borderline personality disorder. Ivel III: Diabetes mellitus, type 2; hypothyroidism; gastroesophageal reflux disease; chronic pancreatitis; irritable bowel syndrome; severe obesity; chronic back pain; degenerative disk disease. Ivel IV: Moderate primary support stressors. Ivel V: At the time of admission was 40 and at the time of discharge is 56. CONDITION AT THE TIME OF DISCHARGE: Stable. The patient is denying suicidal ideations and has done so throughout this hospitalization. She has been safe on all checks. We have been able to allow her to participate in milieu activities and groups, which we have restricted her from in the past because of disrupted behavior, instead during this hospitalization, we have seen none of her old patterns of provoking peers, becoming violent or agitated or self- harming. She has not cut herself, attempted to overdose, or harm anyone else. We have had a family meeting with her mother as well as her and the family is in agreement with the discharge plan. The patient's physical issues have been assessed through the occupational and physical therapy teams, who feel that she does not warrant rehab or long term services at this time. We have not changed any of the patient's medications and she is tolerating them well and she has close followup appointments in the community, which she is eager to follow up with. At this time, we feel that she could be safely treated in a less restrictive setting. MENTAL STATUS EXAMINATION AT THE TIME OF DISCHARGE: The patient is a middle- aged, obese white female, appearing older than her stated age. She has some limitations in grooming. Currently, she is walking upright with a walker. She is calm, cooperative. Makes good eye contact. Speech has a normal rate, tone, and volume. Mood is euthymic with a full affect. Thought process is linear and goal-directed. Thought content is significant for her desire to be discharged from hospital. She is denying suicidal or homicidal ideations. She denies auditory or visual hallucinations. Insight and judgment appeared to be fair given her willingness to follow up with the outpatient setting. Cognitively, she is awake and alert with what would appear to be a slightly low average intellect by virtue of her vocabulary. DISCHARGE INSTRUCTIONS: To the patient are as follows: A. Medications: She is takin. MiraLAX 17 g daily. 2. Naproxen 500 mg twice daily. 3. Trazodone 400 mg p.o. q.h.s. 4. Zoloft 200 mg daily. 5. Protonix 40 mg nightly. 6. Zyprexa 7.5 mg twice daily. 7. Nicotine inhaler 10 mg inhaled every 2 hours as needed for nicotine craving. 8. Latuda 80 mg p.o. nightly. 9. Synthroid 250 mcg p.o. daily. 10. Lamotrigine 150 mg p.o. b.i.d. 11. Lantus insulin 70 units subcutaneously b.i.d. 12. NovoLog insulin 15 units subcutaneously 3 times daily with meals. 13. Ibuprofen 600 mg every 6 hours as needed for pain. 14. Neurontin 600 mg 4 times daily. 15. Colace 200 mg daily as a p.r.n. for constipation. 16. Flexeril 10 mg p.o. b.i.d. as a p.r.n. for pain. 17. Lipitor 40 mg p.o. nightly. 18. Albuterol inhaler 2 puffs as needed for wheezing. Please note that the patient is on 2 antipsychotics. My understanding is that this is because her outpatient psychiatric providers are cross-titrating her from olanzapine to lurasidone. B. Diet: She is on a diabetic diet. C. Activities: As tolerated. The patient is a smoker, but she is actively involved and wanting to quit. She is utilizing nicotine inhalers, which she has a supply of at home. She is encouraged to call the [facility] Quitline at the toll free number of [phone]. There are no studies pending at the time of discharge. D. Followup care: The patient will follow up tomorrow, which is , , at the [facility]. She has an appointment at 1 p.m. with her outpatient therapist, Sahil Grewal, and she has a 3 o'clock appointment with her outpatient psychiatrist, Dr. Sarwat Villar. Substance abuse followup is not applicable given the fact that the patient is not a substance abuser. HOSPITAL COURSE: Part-A: Reason for admission: The patient is a 52-year-old white female with a history of very severe borderline personality disorder as well as chronic mood instability and early life trauma, who is well known to this hospital secondary to several past psychiatric hospitalizations, who now returns to our facility on a voluntary basis seeking admission for suicidal ideations with a plan. She reported in our emergency room that she would overdose on pain medications as well as eat batteries to kill herself. The patient reported that she has been feeling this way for a while and does not feel that she is receiving any support in the community. She was optimistic about inpatient treatment; however, stating "I feel like no one is listening to me. I took 10 of my 's Tylenol pills. The police aren't helping me. I can't think about or feel good about my family right now. I just want to kill myself. I can't take it anymore. I don't think my meds are working anymore. I am afraid that something will happen to me or my family." We did receive a report from her , , who indicated that she has been extremely limited in her self-care recently, unable to toilet appropriately , and there were feces throughout the bathroom and her clothing. She states that this was overwhelming his ability to assist her and that he has been purposefully staying with his parents in order to avoid being burned out. The patient is well connected with local health services including [facility] and does state that she has had recent visits with her therapist, Sahil Grewal, as well as her psychiatrist, Dr. Sarwat Villar. Symptomatically, she was also endorsing psychotic symptoms stating that she had a visual hallucination of a demon that she refers to as the beast. Part-B: Psychiatric treatment rendered: The patient was admitted to the adult behavioral health unit, where she was placed on q.15-minute checks for her own safety. We were concerned about her complaints of back and pelvic pain and, therefore, ordered a CT of her pelvis and lumbar spine, which did reveal some old degenerative disk disease that was not different from previous imaging. Because of her deficits in activities of daily living, we consulted both occupational and physical therapies, both of which services sent clinicians to evaluate her and work on her in terms of activities of daily living and maximizing independence. Neither occupational nor physical therapy consultants felt that she warranted either rehab or long term. She was clearly demonstrating her ability to care for herself on our unit. She took showers, was able to ambulate with a rolling walker, was able to put on her clothes, bathe herself, groom herself appropriately. Because of her good behavior, we were able to downsize her behavioral modification plan in order to allow her to participate in groups. As previously noted, we never saw any evidence of self- harm, she never appeared to be responding to internal stimuli, and her affect was full throughout the hospitalization. I put her on the same medications that she takes on an outpatient basis and she did well with these. We were able to have a therapeutic family meeting attended by her mother, Chel William, and her , David Schulz. They were concerned about her and asked about state hospitalization. In return, we educated them that borderline personality disorder is not something that is readily treatable, particularly in inpatient settings. We talked about the necessity for intensive outpatient services and we talked about adding the [facility] program to her treatments at the [facility]. Ultimately, her and mother were agreeable with this as was Taryn herself. The patient's metabolic studies were tested through routine labs. Her hemoglobin A1c was elevated at 9.8. Cholesterol 109 , triglycerides 154, LDL cholesterol 31, HDL 47.5. At this time, she is being discharged to outpatient treatment. We have contacted [facility] and they are agreeable with transitioning her to receive PROS in addition to her outpatient therapist. We have also gotten her referrals to in- home PT and OT services. We have also contacted visiting nurse services to prolong her receipt of nursing care within the home. [id number]/[facility] #: [id number] [facility]
== END 2017-07-13 16:00 | disposition home health service (06) | DRG 885 ==
LOC: ED 14:24 → BSU 19:01
PROVIDERS: ADMIT Psychiatry & Neurology Psychiatry; ATTEND Psychiatry & Neurology Psychiatry
PROC: GZHZZZZ Group Psychotherapy (ICD-10-PCS; principal; 2017-07-13)
DX: F39 Unspecified mood [affective] disorder (principal); R45.851 Suicidal ideations; F25.9 Schizoaffective disorder, unspecified; K86.1 Other chronic pancreatitis; E11.9 Type 2 diabetes mellitus without complications; E03.9 Hypothyroidism, unspecified; F60.3 Borderline personality disorder; K21.9 Gastro-esophageal reflux disease without esophagitis; K58.9 Irritable bowel syndrome, unspecified; E66.9 Obesity, unspecified; G89.29 Other chronic pain; M54.9 Dorsalgia, unspecified; F17.210 Nicotine dependence, cigarettes, uncomplicated; R10.2 Pelvic and perineal pain; M51.36 Other intervertebral disc degeneration, lumbar region; I10 Essential (primary) hypertension; J45.909 Unspecified asthma, uncomplicated; G47.30 Sleep apnea, unspecified; M19.90 Unspecified osteoarthritis, unspecified site; H26.9 Unspecified cataract; F79 Unspecified intellectual disabilities; F41.9 Anxiety disorder, unspecified; F43.10 Post-traumatic stress disorder, unspecified; F31.9 Bipolar disorder, unspecified; Z68.37 Body mass index [BMI] 37.0-37.9, adult; Z91.5 Personal history of self-harm; Z79.4 Long term (current) use of insulin; Z88.0 Allergy status to penicillin; Z88.8 Allergy status to other drugs, medicaments and biological substances; Z88.4 Allergy status to anesthetic agent; Z88.1 Allergy status to other antibiotic agents; Z91.040 Latex allergy status; Z81.8 Family history of other mental and behavioral disorders; Z98.49 Cataract extraction status, unspecified eye; Z90.49 Acquired absence of other specified parts of digestive tract
CPT/HCPCS: 36415; 72131; 72192; 80053; 80061; 80307; 80320; 80329; 81003; 81015; 82947; 83036; 84443; 85025; 87086; 90847; 99222; 99231; 99238; A9270-GY; G0480; J1815

== ENCOUNTER 2017-07-20 19:57 | Emergency (ER) | payer MEDICARE, MEDICAID ==
[2017-07-20 20:41] LABS: Hematocrit 37 % (35-47); Hemoglobin 11.7 g/dl (12.0-16.0); Mean Corpuscular HGB Conc 32 g/dl (31-36); Mean Corpuscular Hemoglobin 26 pg (27-31); Mean Corpuscular Volume 81 fL (80-97); Mean Platelet Volume 9 um3 (7.4-10.4); Red Blood Count 4.52 10^6/ul (4.0-5.4); Red Cell Distribution Width 18 % (10.5-15); White Blood Count 12.5 10^3/ul (3.5-10.8)
[2017-07-20 20:48] LABS: Urine Bilirubin Negative (Negative); Urine Glucose Negative (Negative); Urine Nitrite Negative (Negative)
[2017-07-20 20:51] LABS: Albumin 3.8 g/dL (3.2-5.2); Anion Gap 8 mmol/L (2-11); Blood Urea Nitrogen 21 mg/dL (6-24); CO2 Carbon Dioxide 25 mmol/L (22-32); Calcium 9.6 mg/dL (8.6-10.3); Chloride 100 mmol/L (101-111); EGFR African American 75.2 (>60); EGFR Non-African American 58.5 (>60); Globulin 3.8 g/dL (2-4); Glucose 263 mg/dL (70-100); Potassium 4.4 mmol/L (3.5-5.0); Sodium 133 mmol/L (133-145); Total Protein 7.6 g/dL (6.4-8.9)
[2017-07-20 20:52] LABS: ALT 29 U/L (7-52); AST 26 U/L (13-39); Alkaline Phosphatase 191 U/L (34-104)
[2017-07-20 20:55] LABS: Benzodiazepine Urine Screen None Detected (None Detect)
[2017-07-20 21:00] LABS: Acetaminophen < 15 mcg/mL; Alcohol < 10 mg/dL (<10); Salicylate < 2.50 mg/dL (<30)
[2017-07-20 21:15] LABS: TSH (Thyroid Stimulating Horm) 3.24 mcIU/mL (0.34-5.60)
--- NOTE | 2017-07-21 05:04 | ED ---
Paula Rosales Emily, scribed for Corey Easton on 07/20/17 at 203 . Psychiatric Complaint - HPI Summary HPI Summary: This patient is a 52 year old F brought in by police to [facility] for violent behavior that occurred earlier today. Pt reports she took three times her usual doses of her prescription medications at 1630. The patient rates the pain 0/10 in severity. Symptoms aggravated by nothing. Symptoms alleviated by nothing. Patient reports depression and SI. Pt has a hx of depression. - History Of Current Complaint Chief Complaint: EDMentalHealth Time Seen by Provider: 07/20/17 19:58 Hx Obtained From: Patient Hx Last Menstrual Period: 09/29/16 Onset/Duration: Sudden Onset Severity Initially: Mild Severity Currently: Mild Character: Depressed Aggravating Factor(s): Nothing Alleviating Factor(s): Nothing Related History: Positive For: Prior Psychiatric Issues Has Suicidal: Reports: Demonstrates Gesture - Allergies/Home Medications Allergies/Adverse Reactions: Allergies Allergy/AdvReac Type Severity Reaction Status Date / Time Latex Allergy Severe Rash Verified 05/27/17 12:13 Sulfa Antibiotics Allergy Severe Hives Verified 05/27/17 12:13 Penicillins Allergy Intermediate Rash Verified 05/27/17 12:13 Nalbuphine Allergy Unknown Unknown Verified 05/27/17 12:13 Reaction Details Perphenazine Allergy Unknown Unknown Verified 05/27/17 12:13 Reaction Details Ciprofloxacin [From Cipro] AdvReac Severe Dizziness Verified 05/27/17 12:13 Tramadol AdvReac Severe Altered Verified 05/27/17 12:19 Mental Status [place] AdvReac Mild See Comment Verified 05/27/17 12:13 ENVIRONMENTAL Allergy Mild SINUS Uncoded 05/27/17 12:13 PMH/Surg Hx/FS Hx/Imm Hx Previously Healthy: No Endocrine/Hematology History: Reports: Hx Diabetes, Hx Thyroid Disease - ON MEDICATION FOR, Other Endocrine/Hematological Disorders - Chronic pancreatitis Denies: Hx Anticoagulant Therapy Cardiovascular History: Reports: Hx Hypertension - NO MEDICATION FOR PER PATIENT , Other Cardiovascular Problems/Disorders - PER H&P- HX OF PSVT 04/2008 Denies: Hx Pacemaker/ICD Respiratory History: Reports: Hx Asthma - HX OF, Hx Seasonal Allergies, Hx Sleep Apnea - HX OF IN THE PAST Denies: Hx Chronic Bronchitis, Hx Chronic Obstructive Pulmonary Disease (COPD ), Hx Cystic Fibrosis, Hx Lung Cancer, Hx Pleural Effusion, Hx Pneumonia, Hx Pulmonary Edema, Hx Pulmonary Embolism, Other Respiratory Problems/Disorders GI History: Reports: Hx Gall Bladder Disease, Hx Gastroesophageal Reflux Disease - ON MEDICATION FOR, Hx Gastrointestinal Bleed, Hx Irritable Bowel, Other GI Disorders - HX OF pancreatitis- STATES LAST ABOUT 2 WEEKS AGO- STATES SLIGHT CASE Denies: Hx Ulcer History: Denies: Hx Dialysis, Hx Renal Disease Musculoskeletal History: Reports: Hx Arthritis, Hx Back Problems, Other Musculoskeletal History - GEN MUSCULOSKELETAL PAIN Denies: Hx Rheumatoid Arthritis, Hx Bursitis, Hx Congenital Bone Abnormalities, Hx Fibromyalgia, Hx Gout, Hx Orthopedic Injury, Hx Osteoporosis, Hx Scoliosis, Hx Tendonitis Sensory History: Reports: Hx Contacts or Glasses, Hx Vision Problem Denies: Hx Cataracts, Hx Eye Injury, Hx Eye Prosthesis, Hx Glaucoma, Hx Macular Degeneration, Hx Deafness, Hx Hearing Aid, Hx Hearing Problem, Other Sensory Impairments Opthamlomology History: Reports: Hx Contacts or Glasses, Hx Vision Problem Denies: Hx Cataracts, Hx Eye Injury, Hx Eye Prosthesis, Hx Glaucoma, Hx Macular Degeneration, Other Sensory Impairments Neurological History: Reports: Hx Developmental Delay - intellectual disability , Hx Seizures - STATES WITH ALLERGIC REACTION TO TRAMADOL Denies: Hx Dementia, Other Neuro Impairments/Disorders Psychiatric History: Reports: Hx Anxiety - ON MEDICATION FOR, Hx Depression - ON MEDICATION FOR, Hx Post Traumatic Stress Disorder, Hx Inpatient Treatment, Hx Community Mental Health Tx, Hx Bipolar Disorder - pt manic, Hx Suicide Attempt - past med overdoses, Hx of Violent Episodes Against Others, Other Psychiatric Issues/Disorders - PSYCHOSIS NOS, HX OF PTSD, SCHIZOAFFECTIVE DISORDER, BORDERLINE PERSONALITY Denies: Hx Attention Deficit Hyperactivity Disorder, Hx Eating Disorder, Hx Panic Disorder, Hx Schizophrenia, Hx Substance Abuse - Surgical History Surgery Procedure, Year, and Place: 2011-CATARACT EXTRACTION. GALLBLADDER REMOVED . HIP SURGERY ACHILD Hx Anesthesia Reactions: No - Immunization History Date of Tetanus Vaccine: Unknown Date of Influenza Vaccine: 04/2017 Infectious Disease History: No Infectious Disease History: Denies: Hx Clostridium Difficile, Hx Hepatitis, Hx Human Immunodeficiency Virus (HIV), Hx of Known/Suspected MRSA, Hx Shingles, Hx Tuberculosis, Hx Known/ Suspected VRE, Hx Known/Suspected VRSA, History Other Infectious Disease, Traveled Outside the [place] in Last 30 Days - Family History Known Family History: Positive: Other - Anxiety and depression, [place] - father Negative: Cardiac Disease, Hypertension, Diabetes Family History: Depression and anxiety - Social History Occupation: Disabled Lives: Alone Alcohol Use: None Hx Substance Use: Yes Substance Use Type: Reports: None Hx Tobacco Use: Yes Smoking Status (MU): Light Every Day Tobacco Smoker Type: Cigarettes Amount Used/How Often: Quit for 2 years, but started again in March. USING THE NICOTINE Length of Time of Smoking/Using Tobacco: 2 year ago Have You Smoked in the Last Year: Yes - Patient has smoked within the last 30 days Review of Systems Negative: Fever Positive: Depressed, Other - Positive SI All Other Systems Reviewed And Are Negative: Yes Physical Exam Triage Information Reviewed: Yes Vital Signs On Initial Exam: Initial Vitals Temp Pulse Resp BP Pulse Ox 99.4 F 88 20 146/81 96 07/20/17 20:00 07/20/17 20:00 07/20/17 20:00 07/20/17 20:00 07/20/17 20:00 Vital Signs Reviewed: Yes Appearance: Positive: Well-Appearing, No Pain Distress Skin: Positive: Warm, Skin Color Reflects Adequate Perfusion, Dry, Other - Abrasion on L forearm Head/Face: Positive: Normal Head/Face Inspection Eyes: Positive: EOMI, JENNIFER ENT: Positive: Normal ENT inspection Neck: Positive: Supple, Nontender Respiratory/Lung Sounds: Positive: Clear to Auscultation, Breath Sounds Present Cardiovascular: Positive: RRR, Pulses are Symmetrical in both Upper and Lower Extremities Abdomen Description: Positive: Nontender, Soft Bowel Sounds: Positive: Present Musculoskeletal: Positive: Normal, Strength/ROM Intact Neurological: Positive: Normal, Sensory/Motor Intact, Alert, Oriented to Person Place, Time Psychiatric: Positive: Depressed Diagnostics - Vital Signs Vital Signs Temp Pulse Resp BP Pulse Ox 07/20/17 20:00 99.4 F 88 20 146/81 96 - Laboratory Result Diagrams: 07/20/17 20:13 07/20/17 20:13 Lab Statement: Any lab studies that have been ordered have been reviewed, and results considered in the medical decision making process. - EKG 0015 Cardiac Rate: NL EKG Rhythm: Sinus Rhythm - 67 BPM EKG Comparison: No Significant Change Course/Dx - Course Assessment/Plan: This patient is a 52 year old F brought in by police to [facility] for violent behavior that occurred earlier today. Pt reports she took three times her usual doses of her prescription medications at 1630. Depressed affect. Abrasion on left forearm. Bloodwork/UA obtained. Pt is medically cleared for MHE at 2130. An EKG taken at 0015 reveals nml sinus rhythm at 67 BPM with no acute changes. Sign-out to Dr. Velasquez upon shift change, pending dispo, awaiting MHE in the morning. - Differential Dx/Clinical Impression Provider Diagnosis: Depression, Suicidal ideation Discharge - Discharge Plan Condition: Stable Disposition: OTHER Discharge Disposition Comment: Sign-out to Dr. Velasquez upon shift change Referrals: No Primary Care Phys,NOPCP [Primary Care Provider] - The documentation as recorded by the Paula roth Emily accurately reflects the service I personally performed and the decisions made by , Corey Easton.
--- NOTE | 2017-07-21 09:35 | PN ---
ED Flex Patient Progress Note Date of Service: 07/21/17 Subjective: This is a 52 year-old F who is pending transfer to another psychiatric facility secondary to suicidal ideation. Pt offers no complaints at this time. She slept last night and had breakfast this morning. Objective: Vitals: Most recent vital signs documented below. General NAD, Alert and oriented x3. Heart: rrr at 80 bpm Lungs: CTA or with rales, rhonchi, wheezing abd: soft nontender Laboratory: Current laboratory results documented below. Assessment: depression Plan: Pending psychiatric to transfer to accepting facility will follow up daily. Condition:Stable Disposition:transfer Vital Signs Temp Pulse Resp BP Pulse Ox 97.3 F 76 20 134/68 100 07/21/17 08:50 07/21/17 08:50 07/21/17 08:50 07/21/17 08:50 07/21/17 08:50 Lab Results - Entire Visit 07/21/17 07/20/17 07/20/17 05:06 20:20 20:20 WBC RBC Hgb Hct MCV MCH MCHC RDW Plt Count MPV Neut % (Auto) Lymph % (Auto) Canyon % (Auto) Eos % (Auto) Baso % (Auto) Absolute Neuts (auto) Absolute Lymphs (auto) Absolute Monos (auto) Absolute Eos (auto) Absolute Basos (auto) Absolute Nucleated RBC Nucleated RBC % Sodium Potassium Chloride Carbon Dioxide Anion Gap BUN Creatinine Est GFR ( Amer) Est GFR (Non-Af Amer) BUN/Creatinine Ratio Glucose POC Glucose (mg/dL) 110 H Calcium Total Bilirubin AST ALT Alkaline Phosphatase Total Protein Albumin Globulin Albumin/Globulin Ratio TSH Urine Color Straw Urine Appearance Clear Urine pH 5.0 Ur Specific Owings 1.006 L Urine Protein Negative Urine Ketones Negative Urine Blood Negative Urine Nitrate Negative Urine Bilirubin Negative Urine Urobilinogen Negative Ur Leukocyte Esterase Negative Urine Glucose Negative Salicylates Urine Opiates Screen None detected Acetaminophen Ur Barbiturates Screen None detected Ur Phencyclidine Scrn None detected Ur Amphetamines Screen None detected U Benzodiazepines Scrn None detected Urine Cocaine Screen None detected U Cannabinoids Screen None detected Serum Alcohol 07/20/17 07/20/17 20:13 20:13 WBC 12.5 H RBC 4.52 Hgb 11.7 L Hct 37 MCV 81 MCH 26 L MCHC 32 RDW 18 H Plt Count 273 MPV 9 Neut % (Auto) 75.2 Lymph % (Auto) 16.9 L Canyon % (Auto) 4.4 Eos % (Auto) 2.8 Baso % (Auto) 0.7 Absolute Neuts (auto) 9.4 H Absolute Lymphs (auto) 2.1 Absolute Monos (auto) 0.6 Absolute Eos (auto) 0.3 Absolute Basos (auto) 0.1 Absolute Nucleated RBC 0 Nucleated RBC % 0 Sodium 133 Potassium 4.4 Chloride 100 L Carbon Dioxide 25 Anion Gap 8 BUN 21 Creatinine 1.00 H Est GFR ( Amer) 75.2 Est GFR (Non-Af Amer) 58.5 BUN/Creatinine Ratio 21.0 H Glucose 263 H POC Glucose (mg/dL) Calcium 9.6 Total Bilirubin 0.20 AST 26 ALT 29 Alkaline Phosphatase 191 H Total Protein 7.6 Albumin 3.8 Globulin 3.8 Albumin/Globulin Ratio 1.0 TSH 3.24 Urine Color Urine Appearance Urine pH Ur Specific [place] Urine Protein Urine Ketones Urine Blood Urine Nitrate Urine Bilirubin Urine Urobilinogen Ur Leukocyte Esterase Urine Glucose Salicylates < 2.50 Urine Opiates Screen Acetaminophen < 15 Ur Barbiturates Screen Ur Phencyclidine Scrn Ur Amphetamines Screen U Benzodiazepines Scrn Urine Cocaine Screen U Cannabinoids Screen Serum Alcohol < 10
[2017-07-21] MEDS ORDERED: Ibuprofen TAB* 600 MG PO PRN (10:48)
[2017-07-21] MEDS ORDERED: Dextrose 50% Syringe 50 ML* 25 GM/50 ML SYRINGE IV PUSH PRN (10:48)
[2017-07-21] MEDS ORDERED: Cyclobenzaprine TAB* 10 MG PO PRN (10:48)
[2017-07-21] MEDS ORDERED: Nicotine Inhaler* 10 MG AMP INH PRN (10:48)
[2017-07-21] MEDS ORDERED: Docusate CAP* 100 MG PO PRN (10:48)
[2017-07-21] MEDS ORDERED: Polyethylene Glycol 3350* 17 GM PACKET PO PRN (10:48)
[2017-07-21] MEDS ORDERED: Insulin GLARGINE(*) 1 UNITS UNIT SUBCUT SCH (11:00)
[2017-07-21] MEDS ORDERED: Albuterol HFA INHALER* 8 gm MDI INH PRN (11:00)
[2017-07-21 11:24] VITALS: BP 114/71
[2017-07-21] MEDS ORDERED: Insulin LISPRO* 1 UNITS UNIT SUBCUT SCH (11:30)
[2017-07-21] MEDS ORDERED: Mouth Piece, Nicotine* 1 EACH CARTRIDGE INH ONE (12:00)
[2017-07-21] MEDS ORDERED: Gabapentin CAP(*) 300 MG PO SCH (13:00)
--- NOTE | 2017-07-21 13:39 | ED ---
INitish Gabriel, scribed for Fabiano Velasquez MD on 07/21/17 at 1334 . Progress - Progress Note Progress Note: This patient was signed out from Dr. Easton, pending disposition, awaiting MHE. After MHE the patient was deemed stable enough to return home. The patients condition is stable and will be discharged to home with Dx of reoccurring depression, SI, and bipolar disorder. - Consult/PCP Time Called: 00:50 Re-Evaluation - Re-Evaluation First Eval Change: Improved - pt stabilized in MH unit Course/Dx - Diagnoses Provider Diagnoses: Depression, Suicidal ideation, Bipolar 2 disorder, major depressive episode The documentation as recorded by the Nitish roth Gabriel accurately reflects the service I personally performed and the decisions made by , Fabiano Velasquez MD.
[2017-07-21] MEDS ORDERED: Lurasidone(*) 80 MG TAB PO SCH (17:00)
[2017-07-21] MEDS ORDERED: Atorvastatin* 40 MG TAB PO SCH (18:00)
[2017-07-21] MEDS ORDERED: lamoTRIgine TAB(*) 100 MG PO SCH ×2 (21:00)
[2017-07-21] MEDS ORDERED: traZODone TAB* 100 MG PO SCH (21:00)
[2017-07-21] MEDS ORDERED: OLANzapine TAB* 5 MG PO SCH (21:00)
[2017-07-22] MEDS ORDERED: Levothyroxine TAB* 100 MCG TAB PO SCH (06:00)
[2017-07-22] MEDS ORDERED: Levothyroxine TAB* 50 MCG TAB PO SCH (06:00)
[2017-07-22] MEDS ORDERED: Omeprazole CAP* 20 MG PO SCH (07:30)
[2017-07-22] MEDS ORDERED: Sertraline* 100 MG TAB PO SCH (09:00)
== END 2017-07-21 12:30 ==
LOC: ED 19:57
DX: F32.9 Major depressive disorder, single episode, unspecified (principal); F31.81 Bipolar II disorder; R45.851 Suicidal ideations
CPT/HCPCS: 36415; 80053; 80307; 80320; 80329; 81003; 84443; 85025; 93005; 99284; A9270-GY; G0480

== ENCOUNTER 2017-07-29 17:48 | Emergency (ER) | payer MEDICARE, MEDICAID ==
--- OUTSIDE RECORDS SUMMARY | 2017-07-29 18:21 | XMS REPORT ---
:1965 External Reference #:[id number] Author Organization [facility] Address [address] [address] Phone [phone] Care Team Providers Name Role Phone Chapo Aguila MD Primary Care Physician Unavailable Payers Type Date Identification Numbers Payment Provider Subscriber Medicare Primary Effective: Policy Number: Medicare Taryn Schulz 1990 [id number] PayID: [id number] [address] [place] [address] [place] Policy Number: [id number] Medicaid Taryn Schulz Group Name: 1 [address] PayID: [id number] [place] [address] Problems Date Description Provider Status Onset: 06/13/2017 Type 2 diabetes mellitus Chapo Aguila M.D. Active Onset: 06/13/2017 Hypothyroidism Chapo Aguila M.D. Active Onset: 06/13/2017 Gastroesophageal reflux disease Chapo Aguila M.D. Active Onset: 06/13/2017 Mixed hyperlipidemia Chapo Aguila M.D. Active Onset: 06/13/2017 Extreme obesity with alveolar Chapo Aguila M.D. Active hypoventilation Onset: 06/13/2017 Bipolar I disorder Chapo Aguila M.D. Active Onset: 07/15/2017 Bipolar affective disorder, currently Chapo Aguila M.D. Active depressed, mild Onset: 07/15/2017 Thoracic and lumbosacral neuritis Chapo Aguila M.D. Active Family History Date Family Member(s) Problem(s) Comments General Cancer Social History Type Date Description Comments Lives With Spouse Occupation Unemployed Smoking Patient is a former smoker Smoking has been using nicotrol Allergies, Adverse Reactions, Alerts Date Description Reaction Status Severity Comments 05/10/2017 Latex Urticaria active 05/10/2017 Sulfa Antibiotics hives active 05/10/2017 Penicillins Urticaria active 05/10/2017 Nalbuphine active 05/10/2017 Perphenazine active 05/10/2017 Ciprofloxacin dizziness active 05/10/2017 Tramadol altered mental status active 05/10/2017 [place] active Medications Medication Date Status Form Strength Qnty SIG Indications Ordering Provider Ismaumekenny 07/15 Active Tablets 50-500mg 60tab 1 by mouth E11.9 s twice a day Adelina Aguila Glucocom Blood 07/03 Active Kit w/Device 1unit one touch Erik Glucose s glucometer [facility], Monitoring System to measure M.D. blood sugar daily Depend Pant Extra 06/14 Active Misc 120un use 4 x a Harvel day or as [place]ia Aguila M.D. Nicotrol 06/13 Active Inhaler 10mg 168un use 4-5 F17.210 its times daily Adelina Aguila Clotrimazole 06/13 Active Cream 1% 90gm apply twice B37.9 daily Adelina Aguila Acetaminophen-Cod 05/26 Active Tablets 300-30mg 20tab 1 tab by Marline montes de oca #3 /2016 s mouth every Duarte, 4-6 hours M.D. as needed for pain Ibuprofen Active Tablets 600mg as needed Home, /0000 LUZ Newman Ondansetron Active Tablets 8mg every 6-8 Home, /0000 Dispers hours as LUZ Newman needed Pantoprazole Active Tablets 40mg take 1 Unknown Sodium /0000 DR tablet by mouth once daily Lamotrigine Active Tablets 150mg take 1 Unknown /0000 tablet by mouth twice a day Sertraline HCL Active Tablets 100mg Take 1+1/2 Unknown /0000 Tablets By Mouth Once Daily Cyclobenzaprine Active Tablets 10mg as needed Unknown HCL /0000 Olanzapine Active Tablets 7.5mg daily Unknown /0000 Trazodone HCL Active Tablets 100mg 4 tabs at Aurea, /0000 bedtime MD Sarwat Latuda Active Tablets 80mg daily Unknown /0000 Levothyroxine Active Tablets 50mcg 90tab 1 tab daily Harvel Sodium /0000 [facility] stomach Levothyroxine Active Tablets 200mcg 90tab 1 tab daily Harvel Sodium /0000 s [facility] M.D. stomach Lantus Solostar Active Solution 100Unit/M 70 units at [place], 0000 Pen-Injec L hs kenny Ayon MD Atorvastatin Active Tablets 40mg 90tab take one Harvel Calcium s tablet by Ayla, mouth every M.D. day Novalog Active 10 units Unknown /0000 before meals Novolog Flexpen Hx Solution 100Unit/M Inject 15 Unknown /0000 Pen-Injec L Units Subq t Three Times A Day With Meals Naproxen Hx Tablets 500mg 60tab twice daily Harvel / s Ayla, - M.D. 07/15 Pictonix 00 Hx 40 mg daily Unknown /0000 Vital Signs Date Vital Result Comment 07/15/2017 Weight 257.50 lb Heart Rate 96 /min BP Systolic Sitting 142 mmHg BP Diastolic Sitting 82 mmHg Body Temperature 97.4 F O2 % BldC Oximetry 96 % 06/15/2017 Height 67 inches 5'7" Weight 248.00 lb Heart Rate 88 /min BP Systolic 166 mmHg BP Diastolic 89 mmHg Body Temperature 96.2 F BMI (Body Mass Index) 38.8 kg/m2 06/13/2017 Height 67 inches 5'7" Weight 259.00 lb Heart Rate 87 /min BP Systolic Sitting 125 mmHg BP Diastolic Sitting 75 mmHg Body Temperature 98.1 F O2 % BldC Oximetry 97 % BMI (Body Mass Index) 40.6 kg/m2 05/26/2017 Height 67 inches 5'7" Weight 255.00 lb Heart Rate 80 /min BP Systolic 150 mmHg BP Diastolic 98 mmHg Body Temperature 96.9 F Pain Level 7 BMI (Body Mass Index) 39.9 kg/m2 05/11/2017 Heart Rate 78 /min BP Systolic 140 mmHg BP Diastolic 100 mmHg Respiratory Rate 18 /min Body Temperature 98.3 F Results Test Date Test Result H/L Range Note Laboratory test finding 06/13/2017 TSH (Thyroid Stim <pending> Horm) Cortisol <pending> Laboratory test finding 06/13/2017 C-Peptide <pending> Glutamic Acid Decarboxylase <pending> Laboratory test finding 06/13/2017 Hemoglobin A1c 9.2 High 5-7 Laboratory test finding 06/03/2017 Point of Care Glucose 184 mg/dL High 70 -100 1 Laboratory test finding 06/03/2017 Point of Care Glucose 256 mg/dL High 70 -100 2 Laboratory test finding 06/03/2017 Point of Care Glucose 329 mg/dL High 70 -100 3 Laboratory test finding 06/03/2017 Point of Care Glucose 384 mg/dL High 70 -100 4 Laboratory test finding 06/03/2017 Point of Care Glucose > 444 mg/dL High 70-100 5 Laboratory test finding 06/03/2017 Point of Care Glucose > 444 mg/dL High 70-100 6 1 Content Assistant: [id number] Content Assistant: [id number] Content Assistant: [id number] Content Assistant: [id number] Content Assistant: [id number] Content Assistant: [id number] Procedures Date CPT Code Description Status 06/03/2017 72379 Carpal Tunnel Release Completed 06/03/2017 81319 Carpal Tunnel Release Completed 05/01/2016 Mammogram Completed 04/06/2016 41893 EEG Recording Awake & Drowsy Completed 04/03/2016 87119 EKG, Interpretation Only Completed 04/29/2015 02278 EEG Recording Awake & Drowsy Completed 04/16/2012 88609 EKG, Interpretation Only Completed 04/16/2012 06431 EKG, Interpretation Only Completed Encounters Type Date Location Provider CPT E/M Dx Office Visit 06/13/2017 3:20p [facility] Chapo Aguila, 79160 E11.9 - [place] Shravan Sahu E03.9 K21.9 E78.2 E66.2 Z68.41 F31.70 Z12.11 F17.210 B37.9 Z79.4 Office Visit 05/26/2017 8:45a [facility] Duarte, 56071 G56.02 C.M.A. M.D. 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 70815 L02.91 Hospitalists E11.9 Z79.4 Office Visit 05/21/2016 3:25p [facility] Sherita Sania, 71820 T39.1x2A Assoc,pc Hospitalists M.D. E11.9 F79 Office Visit 05/20/2016 3:24p [facility] Sherita Sania, 27292 T39.1x2A Assoc,pc Hospitalists M.D. E11.9 F79 Office Visit 05/19/2016 3:24p [facility] Sherita Hohn, 62766 T39.1x2A Assoc,pc Hospitalists M.D. E11.9 F79 Office Visit 05/18/2016 3:23p [facility] Sherita Sania, 76453 T39.1x2A Assoc,pc Hospitalists M.D. E11.9 F79 Office Visit 05/17/2016 3:23p [facility] Harshil Matthewima, 07401 T39.1x2A Assoc,pc Hospitalists M.D. E11.9 F79 Office Visit 05/16/2016 3:22p [facility] H[facility] Bull Eveline, 00882 T39.1x2A Assoc,pc Hospitalists M.D. E11.9 F79 Office Visit 05/15/2016 3:22p [facility] Mlaura Mosquera, 88739 T39.1x2A Assoc,pc Hospitalists M.D. E11.9 F79 Office Visit 05/14/2016 3:22p [facility] Yara Daly, 03785 T39.1x2A Assoc,pc Hospitalists M.D. E11.9 F79 Office Visit 05/13/2016 3:21p [facility] Yara Daly, 57324 T39.1x2A Assoc,pc Hospitalists M.D. E11.9 F79 Office Visit 05/12/2016 3:21p [facility] Yara Addy, 28706 T39.1x2A Assoc,pc Hospitalists M.D. E11.9 F79 Office Visit 05/11/2016 3:20p [facility] Benjamin Snell, 15849 T39.1x2A Assoc,pc PA Hospitalists E11.9 F79 Office Visit 05/03/2016 11:09a [facility] [address] R73.9 Hospitalists J40 G89.4 Office Visit 04/07/2016 3:52p [facility] Ml Mosquera, 97441 R40.4 Hospitalists M.D. E13.9 F79 Z91.19 Office Visit 04/06/2016 3:52p [facility] Ml Mosquera, 75692 R40.4 Hospitalists M.D. E13.9 F79 Z91.19 Office Visit 04/05/2016 3:51p [facility] Yraa Daly, 63162 R40.4 Hospitalists M.D. E13.9 F79 Z91.19 Office Visit 04/04/2016 3:51p [facility] Yara Daly, 02788 R40.4 Hospitalists M.D. E13.9 F79 Z91.19 Office Visit 04/03/2016 3:50p [facility] [place] [address] R40.4 Hospitalists E13.9 F79 Z91.19 Office Visit 10/01/2015 10:08a [facility], 99352 M54.31 Assoc,pc Hospitalists N.P. E11.9 F60.3 Office Visit 09/28/2015 10:06a [facility] Ml Mosquera, 47856 M54.31 Hospitalists M.D. E11.9 Office Visit 04/24/2015 1:31p [facility] Conner Powers, 59449 276.1 Hospitalists MMarkel 296.7 301.83 Office Visit 04/23/2015 1:30p [facility] Conner Powers, 35984 276.1 Hospitalists M.DJarred 250.00 296.7 301.83 Office Visit 04/22/2015 1:29p [facility], Quique Aden, 40238 276.1 Hospitalists M.DJarred 250.00 301.83 Office Visit 04/21/2015 1:28p [facility], Gray Conn, 46872 276.1 Hospitalists N.P. 296.7 301.83 250.00 Office Visit 11/27/2014 8:42a [facility], Sherita Lui, 65646 244.9 Hospitalists M.DJarred 250.02 301.83 Office Visit 04/17/2012 4:07p [facility], Yara Addy, 46198 969.09 Hospitalists M.DJarred 300.9 311 Office Visit 04/16/2012 4:35p [facility] Ceasar Duartelayo, 77380 969.09 Assoc, Hospitalists M.DJarred 300.9 311 V11.1 Office Visit 10/18/2009 1:00a [facility], Jase Jesus M.D. 35848 789.00 Hospitalists 787.03 790.29 250.02 Office Visit 10/17/2009 3:00a [facility], Jase Jesus M.D. 51034 790.29 Hospitalists 789.00 295.70 401.9 Office Visit 10/16/2009 12:15a [facility] Sherita Marshall, 67575 790.29 Assoc, Hospitalists M.DJarred 296.80 Plan of Care Future Appointment(s):10/13/2017 1:40 pm - Chapo Aguila M.D. at [facility] - [address]08/05/2017 11:00 am - Chapo Aguila M.D. at [facility] - [address]07/15/2017 - Chapo Aguila M.D.E11.9 Type 2 diabetes mellitus without complicationsNew Medication:Janumet 50-500 mgComments: You are not meeting goal for blood sugar control.Follow up:3 months, 20 minGoals :Goal Hemoglobin A1c is less than 7.0%. Goal Blood pressure is less than 140/ 90. Goal LDL (bad cholesterol) is less than 70.M51.16 Intervertebral disc disorders w radiculopathy, lumbar regionComments:Need to get previous CT and MRIFollow up:3 weeks/Need records from Dr SullivanF31.31 Bipolar disorder, current episode depressed, mild
[2017-07-29 19:12] LABS: ABS Basophils 0.1 10^3/ul (0-0.2); ABS Eosinophils 0.5 10^3/ul (0-0.6); ABS Monocytes 0.4 10^3/ul (0-0.8); ABS Neutrophils 8.3 10^3/ul (1.5-7.7); ABS Nucleated RBC 0 10^3/ul; Hematocrit 35 % (35-47); Hemoglobin 11.2 g/dl (12.0-16.0); Lymphocyte % 18.1 % (25-47); Mean Corpuscular HGB Conc 32 g/dl (31-36); Mean Corpuscular Hemoglobin 26 pg (27-31); Mean Corpuscular Volume 81 fL (80-97); Mean Platelet Volume 9 um3 (7.4-10.4); Nucleated Red Blood Cells % 0; Platelet Count 237 10^3/ul (150-450); Red Blood Count 4.34 10^6/ul (4.0-5.4); Red Cell Distribution Width 18 % (10.5-15); White Blood Count 11.3 10^3/ul (3.5-10.8)
[2017-07-29] MEDS: NS 0.9% 1000 ML* 2,000 ML IV ONE (19:24)
[2017-07-29 19:26] LABS: EGFR Non-African American 55.3 (>60)
[2017-07-29] MEDS ORDERED: Insulin REGULAR(*) 1 UNITS UNIT SUBCUT ONE (19:29)
[2017-07-29 19:41] LABS: Urine Appearance Cloudy; Urine Blood 3+ (Negative); Urine Color Yellow; Urine Ketones Negative (Negative); Urine Protein 1+(30 mg/dL) (Negative); Urine Urobilinogen Negative (Negative)
[2017-07-29] MEDS ORDERED: Nitrofurantoin Macrocrystals* 100 MG CAP PO ONE (20:23)
--- NOTE | 2017-07-29 20:33 | RAD ---
INDICATION: Cough. COMPARISON: Comparison is made with a prior chest x-ray study from July 02, 2017. TECHNIQUE: Dual-energy PA and lateral views of the chest were obtained. FINDINGS: The heart is within normal limits in size. Mediastinal contours appear normal. There is a faint infiltrate which projects over the right midlung only seen in the PA view. The lungs are otherwise clear. No pleural effusion is seen. IMPRESSION: FAINT RIGHT LUNG INFILTRATE SUSPICIOUS FOR PNEUMONIA RECOMMEND FOLLOW-UP CHEST X-RAYS TO RESOLUTION.
[2017-07-29] MEDS ORDERED: Azithromycin TAB* 250 MG PO ONE (20:48)
--- NOTE | 2017-07-29 20:50 | ED ---
HPI Diabetic - HPI Summary HPI Summary: 52F presents with hyperglycemia. She states last night she made cookies and ate a whole bunch of them. She states her glucometer read high. She states she did not have anything to eat today beside milk and that she keeps checking her blood sugar and it reads high so she gave her self at least 20 units of insulin today. She admits to dizziness and blurred vision. She admits to sinus congestion and a cough. She denies any chest pain or SOB. She denies any abdominal pain, nausea, vomiting or diarrhea. She denies any dysuria. She denies any fever. She denies any headache. - History Of Current Complaint Chief Complaint: EDDiabeticProb Time Seen by Provider: 07/29/17 18:42 Hx Last Menstrual Period: 09/29/16 - Allergies/Home Medications Allergies/Adverse Reactions: Allergies Allergy/AdvReac Type Severity Reaction Status Date / Time Latex Allergy Severe Rash Verified 05/27/17 12:13 Sulfa Antibiotics Allergy Severe Hives Verified 05/27/17 12:13 Penicillins Allergy Intermediate Rash Verified 05/27/17 12:13 Nalbuphine Allergy Unknown Unknown Verified 05/27/17 12:13 Reaction Details Perphenazine Allergy Unknown Unknown Verified 05/27/17 12:13 Reaction Details Ciprofloxacin [From Cipro] AdvReac Severe Dizziness Verified 05/27/17 12:13 Tramadol AdvReac Severe Altered Verified 05/27/17 12:19 Mental Status [place] AdvReac Mild See Comment Verified 05/27/17 12:13 ENVIRONMENTAL Allergy Mild SINUS Uncoded 05/27/17 12:13 PMH/Surg Hx/FS Hx/Imm Hx Endocrine/Hematology History: Reports: Hx Diabetes, Hx Thyroid Disease - ON MEDICATION FOR, Other Endocrine/Hematological Disorders - Chronic pancreatitis Denies: Hx Anticoagulant Therapy Cardiovascular History: Reports: Hx Hypertension - NO MEDICATION FOR PER PATIENT , Other Cardiovascular Problems/Disorders - PER H&P- HX OF PSVT 04/2008 Denies: Hx Pacemaker/ICD Respiratory History: Reports: Hx Asthma - HX OF, Hx Seasonal Allergies, Hx Sleep Apnea - HX OF IN THE PAST Denies: Hx Chronic Bronchitis, Hx Chronic Obstructive Pulmonary Disease (COPD ), Hx Cystic Fibrosis, Hx Lung Cancer, Hx Pleural Effusion, Hx Pneumonia, Hx Pulmonary Edema, Hx Pulmonary Embolism, Other Respiratory Problems/Disorders GI History: Reports: Hx Gall Bladder Disease, Hx Gastroesophageal Reflux Disease - ON MEDICATION FOR, Hx Gastrointestinal Bleed, Hx Irritable Bowel, Other GI Disorders - HX OF pancreatitis- STATES LAST ABOUT 2 WEEKS AGO- STATES SLIGHT CASE Denies: Hx Ulcer History: Denies: Hx Dialysis, Hx Renal Disease Musculoskeletal History: Reports: Hx Arthritis, Hx Back Problems, Other Musculoskeletal History - GEN MUSCULOSKELETAL PAIN Denies: Hx Rheumatoid Arthritis, Hx Bursitis, Hx Congenital Bone Abnormalities, Hx Fibromyalgia, Hx Gout, Hx Orthopedic Injury, Hx Osteoporosis, Hx Scoliosis, Hx Tendonitis Sensory History: Reports: Hx Contacts or Glasses, Hx Vision Problem Denies: Hx Cataracts, Hx Eye Injury, Hx Eye Prosthesis, Hx Glaucoma, Hx Macular Degeneration, Hx Deafness, Hx Hearing Aid, Hx Hearing Problem, Other Sensory Impairments Opthamlomology History: Reports: Hx Contacts or Glasses, Hx Vision Problem Denies: Hx Cataracts, Hx Eye Injury, Hx Eye Prosthesis, Hx Glaucoma, Hx Macular Degeneration, Other Sensory Impairments Neurological History: Reports: Hx Developmental Delay - intellectual disability , Hx Seizures - STATES WITH ALLERGIC REACTION TO TRAMADOL Denies: Hx Dementia, Other Neuro Impairments/Disorders Psychiatric History: Reports: Hx Anxiety - ON MEDICATION FOR, Hx Depression - ON MEDICATION FOR, Hx Post Traumatic Stress Disorder, Hx Inpatient Treatment, Hx Community Mental Health Tx, Hx Bipolar Disorder - pt manic, Hx Suicide Attempt - past med overdoses, Hx of Violent Episodes Against Others, Other Psychiatric Issues/Disorders - PSYCHOSIS NOS, HX OF PTSD, SCHIZOAFFECTIVE DISORDER, BORDERLINE PERSONALITY Denies: Hx Attention Deficit Hyperactivity Disorder, Hx Eating Disorder, Hx Panic Disorder, Hx Schizophrenia, Hx Substance Abuse - Surgical History Surgery Procedure, Year, and Place: 2011-CATARACT EXTRACTION. GALLBLADDER REMOVED . HIP SURGERY ACHILD Hx Anesthesia Reactions: No - Immunization History Date of Tetanus Vaccine: Unknown Date of Influenza Vaccine: 04/2017 Infectious Disease History: No Infectious Disease History: Denies: Hx Clostridium Difficile, Hx Hepatitis, Hx Human Immunodeficiency Virus (HIV), Hx of Known/Suspected MRSA, Hx Shingles, Hx Tuberculosis, Hx Known/ Suspected VRE, Hx Known/Suspected VRSA, History Other Infectious Disease, Traveled Outside the [place] in Last 30 Days - Family History Known Family History: Positive: None - reviewed & noncontributory, Other - Anxiety and depression, [place] - father Negative: Cardiac Disease, Hypertension, Diabetes Family History: Depression and anxiety - Social History Alcohol Use: None Hx Substance Use: Yes Substance Use Type: Reports: None Hx Tobacco Use: Yes Smoking Status (MU): Light Every Day Tobacco Smoker Type: Cigarettes Amount Used/How Often: Quit for 2 years, but started again in March. USING THE NICOTINE Length of Time of Smoking/Using Tobacco: 2 year ago Have You Smoked in the Last Year: Yes - Patient has smoked within the last 30 days Review of Systems Negative: Fever Negative: Chest Pain Positive: Cough. Negative: Shortness Of Breath Positive: Nausea. Negative: Abdominal Pain Neurological: Other - lightheaded All Other Systems Reviewed And Are Negative: Yes Physical Exam Triage Information Reviewed: Yes Vital Signs On Initial Exam: Initial Vitals Temp Pulse Resp BP Pulse Ox 98.9 F 97 20 138/86 98 07/29/17 18:14 07/29/17 18:14 07/29/17 18:14 07/29/17 18:14 07/29/17 18:14 Vital Signs Reviewed: Yes Appearance: Positive: Well-Appearing Skin: Positive: Warm, Dry Head/Face: Positive: Normal Head/Face Inspection Eyes: Positive: Normal, EOMI, JENNIFER, Conjunctiva Clear ENT: Positive: Normal ENT inspection, Pharynx normal, TMs normal Respiratory/Lung Sounds: Positive: Clear to Auscultation, Breath Sounds Present Cardiovascular: Positive: Normal, RRR Abdomen Description: Positive: Nontender, Soft Bowel Sounds: Positive: Present Musculoskeletal: Positive: Normal Neurological: Positive: Normal - [place] Coma Scale Coma Scale Total: 15 Diagnostics - Vital Signs Vital Signs Temp Pulse Resp BP Pulse Ox 07/29/17 19:30 94 16 124/74 96 07/29/17 19:00 15 07/29/17 18:30 95 10 138/67 95 07/29/17 18:17 97 95 07/29/17 18:16 138/86 07/29/17 18:14 98.9 F 97 20 138/86 98 - Laboratory Lab Results: Lab Results 07/29/17 07/29/17 07/29/17 Range/Units 18:57 18:57 18:57 WBC 11.3 H (3.5-10.8) 10^3/ul RBC 4.34 (4.0-5.4) 10^6/ul Hgb 11.2 L (12.0-16.0) g/dl Hct 35 (35-47) % MCV 81 (80-97) fL MCH 26 L (27-31) pg MCHC 32 (31-36) g/dl RDW 18 H (10.5-15) % Plt Count 237 (150-450) 10^3/ul MPV 9 (7.4-10.4) um3 Neut % (Auto) 73.5 (38-83) % Lymph % (Auto) 18.1 L (25-47) % [place] % (Auto) 3.8 (1-9) % Eos % (Auto) 4.0 (0-6) % Baso % (Auto) 0.6 (0-2) % Absolute Neuts (auto) 8.3 H (1.5-7.7) 10^3/ul Absolute Lymphs (auto) 2.0 (1.0-4.8) 10^3/ul Absolute Monos (auto) 0.4 (0-0.8) 10^3/ul Absolute Eos (auto) 0.5 (0-0.6) 10^3/ul Absolute Basos (auto) 0.1 (0-0.2) 10^3/ul Absolute Nucleated RBC 0 10^3/ul Nucleated RBC % 0 VBG pH (7.33-7.43) VBG pCO2 (41-51) mmHg VBG pO2 (35-45) mmHg VBG HCO3 (24-28) mmol/L VBG O2 Saturation (70-80) % VBG Base Excess (0-4) Sodium 134 (133-145) mmol/L Potassium 4.8 (3.5-5.0) mmol/L Chloride 98 L (101-111) mmol/L Carbon Dioxide 30 (22-32) mmol/L Anion Gap 6 (2-11) mmol/L BUN 16 (6-24) mg/dL Creatinine 1.05 H (0.51-0.95) mg/dL Est GFR ( Amer) 71.1 (>60) Est GFR (Non-Af Amer) 55.3 (>60) BUN/Creatinine Ratio 15.2 (8-20) Glucose 435 H (70-100) mg/dL Lactic Acid 1.4 (0.5-2.0) mmol/L Calcium 9.6 (8.6-10.3) mg/dL Total Bilirubin 0.20 (0.2-1.0) mg/dL AST 20 (13-39) U/L ALT 17 (7-52) U/L Alkaline Phosphatase 137 H (34-104) U/L C-Reactive Protein 25.72 H (< 5.00) mg/L Total Protein 7.4 (6.4-8.9) g/dL Albumin 3.6 (3.2-5.2) g/dL Globulin 3.8 (2-4) g/dL Albumin/Globulin Ratio 0.9 L (1-3) Urine Color Urine Appearance Urine pH (5-9) Ur Specific [place] (1.010-1.030) Urine Protein (Negative) Urine Ketones (Negative) Urine Blood (Negative) Urine Nitrate (Negative) Urine Bilirubin (Negative) Urine Urobilinogen (Negative) Ur Leukocyte Esterase (Negative) Urine WBC (Auto) (Absent) Urine RBC (Auto) (Absent) Ur Squamous Epith Cells (Absent) Urine Bacteria (Absent) Urine Glucose (Negative) Salicylates < 2.50 (<30) mg/dL Urine Opiates Screen (None Detect) Acetaminophen < 15 mcg/mL Ur Barbiturates Screen (None Detect) Ur Phencyclidine Scrn (None Detect) Ur Amphetamines Screen (None Detect) U Benzodiazepines Scrn (None Detect) Urine Cocaine Screen (None Detect) U Cannabinoids Screen (None Detect) Serum Alcohol < 10 (<10) mg/dL 07/29/17 07/29/17 07/29/17 Range/Units 19:20 19:20 19:27 WBC (3.5-10.8) 10^3/ul RBC (4.0-5.4) 10^6/ul Hgb (12.0-16.0) g/dl Hct (35-47) % MCV (80-97) fL MCH (27-31) pg MCHC (31-36) g/dl RDW (10.5-15) % Plt Count (150-450) 10^3/ul MPV (7.4-10.4) um3 Neut % (Auto) (38-83) % Lymph % (Auto) (25-47) % [place] % (Auto) (1-9) % Eos % (Auto) (0-6) % Baso % (Auto) (0-2) % Absolute Neuts (auto) (1.5-7.7) 10^3/ul Absolute Lymphs (auto) (1.0-4.8) 10^3/ul Absolute Monos (auto) (0-0.8) 10^3/ul Absolute Eos (auto) (0-0.6) 10^3/ul Absolute Basos (auto) (0-0.2) 10^3/ul Absolute Nucleated RBC 10^3/ul Nucleated RBC % VBG pH 7.37 (7.33-7.43) VBG pCO2 56 H (41-51) mmHg VBG pO2 27 L (35-45) mmHg VBG HCO3 28.4 H (24-28) mmol/L VBG O2 Saturation 54.5 L (70-80) % VBG Base Excess 5.7 H (0-4) Sodium (133-145) mmol/L Potassium (3.5-5.0) mmol/L Chloride (101-111) mmol/L Carbon Dioxide (22-32) mmol/L Anion Gap (2-11) mmol/L BUN (6-24) mg/dL Creatinine (0.51-0.95) mg/dL Est GFR ( Amer) (>60) Est GFR (Non-Af Amer) (>60) BUN/Creatinine Ratio (8-20) Glucose (70-100) mg/dL Lactic Acid (0.5-2.0) mmol/L Calcium (8.6-10.3) mg/dL Total Bilirubin (0.2-1.0) mg/dL AST (13-39) U/L ALT (7-52) U/L Alkaline Phosphatase (34-104) U/L C-Reactive Protein (< 5.00) mg/L Total Protein (6.4-8.9) g/dL Albumin (3.2-5.2) g/dL Globulin (2-4) g/dL Albumin/Globulin Ratio (1-3) Urine Color Yellow Urine Appearance Cloudy Urine pH 5.0 (5-9) Ur Specific [place] 1.030 (1.010-1.030) Urine Protein 1+(30 mg/dl) H (Negative) Urine Ketones Negative (Negative) Urine Blood 3+ H (Negative) Urine Nitrate Negative (Negative) Urine Bilirubin Negative (Negative) Urine Urobilinogen Negative (Negative) Ur Leukocyte Esterase Negative (Negative) Urine WBC (Auto) 3+(>20/hpf) H (Absent) Urine RBC (Auto) 3+(>10/hpf) H (Absent) Ur Squamous Epith Cells Present H (Absent) Urine Bacteria 1+ H (Absent) Urine Glucose 3+(>=500 mg/dl) H (Negative) Salicylates (<30) mg/dL Urine Opiates Screen None detected (None Detect) Acetaminophen mcg/mL Ur Barbiturates Screen None detected (None Detect) Ur Phencyclidine Scrn None detected (None Detect) Ur Amphetamines Screen None detected (None Detect) U Benzodiazepines Scrn None detected (None Detect) Urine Cocaine Screen None detected (None Detect) U Cannabinoids Screen None detected (None Detect) Serum Alcohol (<10) mg/dL Result Diagrams: 07/29/17 18:57 07/29/17 18:57 Lab Statement: Any lab studies that have been ordered have been reviewed, and results considered in the medical decision making process. Diabetic Course/Dx - Course Course Of Treatment: 52F presents with hyperglycemia. She states last night she made cookies and ate a whole bunch of them. She states her glucometer read high. She states she did not have anything to eat today beside milk and that she keeps checking her blood sugar and it reads high so she gave her self at least 20 units of insulin today. She admits to dizziness and blurred vision. She admits to sinus congestion and a cough. She denies any chest pain or SOB. She denies any abdominal pain, nausea, vomiting or diarrhea. She denies any dysuria. on exam normal PE. glucose was 435. gave two liters of fluid and 8 units insulin. glucose 301. chest xray shows possible inflitrate so will treat with zpack. urine shows uti so will treat with macrobid. patient states that was suicidial yesterday when ate cookies because states knew that they were bad for her but ate them anyways. Patient is not actively suicidal so will discharge home and told if develops sucidial thoughts again to return to ED. patient understand and agrees with plan. - Diagnoses Differential Dx: Diabetic Ketoacidosis, Hyperglycemia, Hyperosmolar State, Sepsis Provider Diagnoses: Diabetes, Hyperglycemia, UTI (urinary tract infection), Pneumonia Discharge - Discharge Plan Condition: Good Disposition: HOME Prescriptions: Azithromycin TAB* [Zithromax TAB (Z-YANET) 250 mg #6 tabs] 250 mg PO DAILY #4 tab Nitrofurantoin Monohyd Macro [Macrobid] 100 mg PO BID #13 cap Patient Education Materials: Urinary Tract Infection in Women (ED), Pneumonia ( ED), Diabetic Hyperglycemia (ED) Referrals: No Primary Care Phys,NOPCP [Primary Care Provider] - Additional Instructions: Take macrobid twice a day for 7 days Take azithromycin once a day for 4 more days Drink plenty of fluids Follow up with primary within 5 days Return to ED if develop any new or worsening symptoms
[2017-07-29 21:16] VITALS: BP 170/93
--- NOTE | 2017-07-31 09:10 | PN ---
Progress Note - Progress Note Date of Service: 07/29/17 Note: 75-100,000 of e. coli grew on preliminary urine culture results. patient diagnosed and treated for UTI with macrobid. will wait for final culture sensitivity. no further changes required at this time.
--- NOTE | 2017-08-01 08:58 | PN ---
Progress Note - Progress Note Date of Service: 08/29/17 Note: Urine culture grew E. Coli Patient placed on Macrobid prior to discharge macrobid is sensitive to organism. Nothing further at this time. Dodie Lebron PA-C
== END 2017-07-29 22:50 | disposition home or self-care (01) ==
LOC: ED 17:48
DX: E11.65 Type 2 diabetes mellitus with hyperglycemia (principal); N39.0 Urinary tract infection, site not specified; B96.20 Unspecified Escherichia coli [E. coli] as the cause of diseases classified elsewhere; J18.9 Pneumonia, unspecified organism; F17.210 Nicotine dependence, cigarettes, uncomplicated; Z79.4 Long term (current) use of insulin; Z88.3 Allergy status to other anti-infective agents; Z88.5 Allergy status to narcotic agent; Z88.0 Allergy status to penicillin; Z88.2 Allergy status to sulfonamides; Z88.8 Allergy status to other drugs, medicaments and biological substances
CPT/HCPCS: 36415; 71020; 80053; 80307; 80320; 80329; 81003; 81015; 82803; 83605; 85025; 86140; 87077; 87086; 87186; 96360; 96361; 99283; A9270-GY; G0480

== ENCOUNTER 2017-08-01 11:38 | Emergency (ER) | payer MEDICARE, MEDICAID ==
[2017-08-01 12:21] VITALS: BP 116/67
[2017-08-01] MEDS ORDERED: Albuterol 2.5 MG/3 ML NEB.SOL* (0.083%) INH ONE (13:04)
--- NOTE | 2017-08-01 13:20 | UC ---
UC General HPI - HPI Summary HPI Summary: Pt presents requesting refill of medications - pt was seen in ED 07/29 and dx with UTI and pna. Pt was given Rx Bactrim zithromax. Pt states she picked up her prescriptions but has lost them and is requesting refill. Pt reports continued dysuria and frequency. no hemturia. No vaginal discharge, itching, odor. No fever, chills. Pt continues to have intermittent cough and wheeze. intermittent sputum production - yellow. no rash. No abd pain. no fernando, vision changes. pt does not have MDI Pt's medications reviewed this visit Reviewed pt's ED chart spoke with pharmacist - confirmed pt did pickup - History of Current Complaint Chief Complaint: UCGeneralIllness Stated Complaint: COUGH, URINARY COMPLAINT Time Seen by Provider: 08/01/17 12:47 Hx Obtained From: Patient, Medical Records Hx Last Menstrual Period: going through menopause Onset/Duration: Lasting Days Onset Severity: Mild Current Severity: Mild - Allergy/Home Medications Allergies/Adverse Reactions: Allergies Allergy/AdvReac Type Severity Reaction Status Date / Time Latex Allergy Severe Rash Verified 08/01/17 12:21 Sulfa Antibiotics Allergy Severe Hives Verified 08/01/17 12:21 Penicillins Allergy Intermediate Rash Verified 08/01/17 12:21 Nalbuphine Allergy Unknown Unknown Verified 08/01/17 12:21 Reaction Details Perphenazine Allergy Unknown Unknown Verified 08/01/17 12:21 Reaction Details Ciprofloxacin [From Cipro] AdvReac Severe Dizziness Verified 08/01/17 12:21 Tramadol AdvReac Severe Altered Verified 08/01/17 12:21 Mental Status [place] AdvReac Mild See Comment Verified 08/01/17 12:21 ENVIRONMENTAL Allergy Mild SINUS Uncoded 08/01/17 12:21 Home Medications: Home Medications metFORMIN* [Glucophage 500 MG TAB *] 500 mg PO BID 08/01/17 [History Confirmed 08/01/17] PMH/Surg Hx/FS Hx/Imm Hx Previously Healthy: No Psychological History: Anxiety, Depression Other History Of: Negative For: Anticoagulant Therapy - Surgical History Surgical History: Yes Surgery Procedure, Year, and Place: 2011-CATARACT EXTRACTION. GALLBLADDER REMOVED - Family History Known Family History: Positive: None - reviewed & noncontributory, Other - Anxiety and depression, [place] - father Negative: Cardiac Disease, Hypertension, Diabetes Family History: Depression and anxiety - Social History Occupation: Disabled Lives: With Family Alcohol Use: None Substance Use Type: None Smoking Status (MU): Former Smoker Type: Cigarettes Amount Used/How Often: Quit for 2 years, but started again in March. USING THE NICOTINE Length of Time of Smoking/Using Tobacco: 2 year ago Have You Smoked in the Last Year: Yes - Patient has smoked within the last 30 days When Did the Patient Quit Smoking/Using Tobacco: ATTEMPTING TO QUIT Household Exposure Type: Cigarettes - Immunization History Most Recent Influenza Vaccination: Within the past month or two at [facility] Most Recent Tetanus Shot: Unsure Most Recent Pneumonia Vaccination: 05/20/2017 Review of Systems Constitutional: Negative Skin: Negative Eyes: Negative ENT: Negative Respiratory: Cough Cardiovascular: Negative Gastrointestinal: Negative Genitourinary: Dysuria, Frequency All Other Systems Reviewed And Are Negative: Yes Physical Exam Triage Information Reviewed: Yes Appearance: Well-Appearing, No Pain Distress, Well-Nourished Vital Signs: Initial Vital Signs Temp 99.3 F 08/01/17 12:15 Pulse 100 08/01/17 12:15 Resp 18 08/01/17 12:15 BP 116/67 08/01/17 12:15 Pulse Ox 98 08/01/17 12:15 Vital Signs Reviewed: Yes Eye Exam: Normal Eyes: Positive: Conjunctiva Clear ENT Exam: Normal ENT: Positive: Hearing grossly normal, Pharynx normal, Nasal congestion, TMs normal Dental Exam: Normal Neck exam: Normal Neck: Positive: Supple, Nontender, No Lymphadenopathy Respiratory Exam: Normal Respiratory: Positive: Chest non-tender, Lungs clear, No respiratory distress, No accessory muscle use, Wheezing, Other: - speaking full,easy sentences few scattered wheeze intermittent cough No accessory muscle use Cardiovascular Exam: Normal Cardiovascular: Positive: RRR, No Murmur Abdominal Exam: Normal Abdomen Description: Positive: Nontender, No Organomegaly Musculoskeletal Exam: Normal Musculoskeletal: Positive: Strength Intact Neurological Exam: Normal Neurological: Positive: Alert Psychological Exam: Normal Psychological: Positive: Normal Response To Family Skin Exam: Normal Re-Evaluation - Re-Evaluation First Eval Change: Improved - Wheezing resolved following neb -pt states feels breathing is better less cough will discharge home with MDI and Rx Pt call pcp for r/u Course/Dx - Course Course Of Treatment: Pt reqeusting re-scribe of medications as lost prescriptions. Spoke with pharmacist and confirmed. Will give neb x 1 here - if improves will give MDI. re-fill Rx. secretion precaution. pt comfortable and in agreement with plan - Differential Dx - Multi-Symptom Provider Diagnoses: pnuemonia. uti. medication request Discharge - Discharge Plan Condition: Stable Disposition: HOME Prescriptions: Albuterol HFA INHALER* [Ventolin HFA Inhaler*] 1 puff INH Q6H PRN #1 mdi PRN Reason: wheeze Azithromycin TAB* [Zithromax TAB (Z-YNAET) 250 mg #6 tabs] 250 mg PO DAILY #3 tab Nitrofurantoin Monohyd Macro [Macrobid] 100 mg PO BID #14 cap Patient Education Materials: Urinary Tract Infection in Women (ED), Community Acquired Pneumonia (ED) Referrals: Chapo Aguila MD [Primary Care Provider] - Additional Instructions: - It is very important you take your medication as prescribed until gone - both prescriptions have been resent to your pharmacist - Stay well hydrated. Drink plenty of non-alcoholic, non-caffinated beverages - eat regular healthy meals - Use inhaler, 2 puffs every 4 hours for cough or wheeze. Take with food. Do NOT take for more than 4-5 days. - Call your doctor to schedule a follow-up appointment. Contact your doctor or return with questions or concerns
== END 2017-08-01 13:59 | disposition home or self-care (01) ==
LOC: UCEAST 11:38
DX: J18.9 Pneumonia, unspecified organism (principal); N39.0 Urinary tract infection, site not specified; Z76.0 Encounter for issue of repeat prescription; F41.9 Anxiety disorder, unspecified; F32.9 Major depressive disorder, single episode, unspecified; Z90.49 Acquired absence of other specified parts of digestive tract; Z88.5 Allergy status to narcotic agent; Z88.0 Allergy status to penicillin; Z88.2 Allergy status to sulfonamides; Z88.1 Allergy status to other antibiotic agents; Z91.040 Latex allergy status; F17.210 Nicotine dependence, cigarettes, uncomplicated
CPT/HCPCS: 81003; 87086; 99212; G0463

== ENCOUNTER 2017-08-02 17:33 | Emergency (ER) | payer MEDICARE, MEDICAID ==
[2017-08-02 21:55] LABS: ABS Basophils 0.1 10^3/ul (0-0.2); ABS Eosinophils 0.6 10^3/ul (0-0.6); ABS Lymphocytes 2.3 10^3/ul (1.0-4.8); ABS Monocytes 0.6 10^3/ul (0-0.8); ABS Neutrophils 10.2 10^3/ul (1.5-7.7); ABS Nucleated RBC 0.01 10^3/ul; Hematocrit 37 % (35-47); Hemoglobin 12.2 g/dl (12.0-16.0); Mean Corpuscular HGB Conc 33 g/dl (31-36); Mean Corpuscular Hemoglobin 26 pg (27-31); Mean Corpuscular Volume 80 fL (80-97); Mean Platelet Volume 9 um3 (7.4-10.4); Nucleated Red Blood Cells % 0; Platelet Count 244 10^3/ul (150-450); Red Blood Count 4.64 10^6/ul (4.0-5.4); Red Cell Distribution Width 17 % (10.5-15); White Blood Count 13.8 10^3/ul (3.5-10.8)
[2017-08-02 22:12] LABS: EGFR Non-African American 76.7 (>60)
--- NOTE | 2017-08-03 00:16 | ED ---
Respiratory - HPI Summary HPI Summary: 52F presents with intermittent sternal chest pain for past couple days. She states it started when she develop an upper respiratory infection. She states pain is sharp and located on the right side of her chest. The pain does not radiate anywhere. She has been taking her zpack as prescribed. She states breathing does not change the pain. She has had an intermittent cough that she states she is not able to get another up with. She denies any fevers. She states she lost her macrobid but was given another script by urgent care that has been taking for her UTI. She states her sugar have been off so her primary advised her to come here. She denies any abdominal pain, nausea or vomiting. She denies any SOB. She states her inhaler does not help the chest pain. She states she has not had much of an appetite. - History of Current Complaint Chief Complaint: EDChestPainROMI Stated Complaint: CHEST PAIN Time Seen by Provider: 08/02/17 23:18 Pain Intensity: 7 - Allergy/Home Medications Allergies/Adverse Reactions: Allergies Allergy/AdvReac Type Severity Reaction Status Date / Time Latex Allergy Severe Rash Verified 08/01/17 12:21 Sulfa Antibiotics Allergy Severe Hives Verified 08/01/17 12:21 Penicillins Allergy Intermediate Rash Verified 08/01/17 12:21 Nalbuphine Allergy Unknown Unknown Verified 08/01/17 12:21 Reaction Details Perphenazine Allergy Unknown Unknown Verified 08/01/17 12:21 Reaction Details Ciprofloxacin [From Cipro] AdvReac Severe Dizziness Verified 08/01/17 12:21 Tramadol AdvReac Severe Altered Verified 08/01/17 12:21 Mental Status Laplace AdvReac Mild See Comment Verified 08/01/17 12:21 ENVIRONMENTAL Allergy Mild SINUS Uncoded 08/01/17 12:21 PMH/Surg Hx/FS Hx/Imm Hx Endocrine/Hematology History: Reports: Hx Diabetes, Hx Thyroid Disease, Other Endocrine/Hematological Disorders - Chronic pancreatitis Denies: Hx Anticoagulant Therapy Cardiovascular History: Reports: Hx Hypertension - NO MEDICATION FOR PER PATIENT , Other Cardiovascular Problems/Disorders - PER H&P- HX OF PSVT 04/2008 Denies: Hx Pacemaker/ICD Respiratory History: Reports: Hx Asthma - HX OF, Hx Seasonal Allergies, Hx Sleep Apnea - HX OF IN THE PAST Denies: Hx Chronic Bronchitis, Hx Chronic Obstructive Pulmonary Disease (COPD ), Hx Cystic Fibrosis, Hx Lung Cancer, Hx Pleural Effusion, Hx Pneumonia, Hx Pulmonary Edema, Hx Pulmonary Embolism, Other Respiratory Problems/Disorders GI History: Reports: Hx Gall Bladder Disease, Hx Gastroesophageal Reflux Disease - ON MEDICATION FOR, Hx Gastrointestinal Bleed, Hx Irritable Bowel, Other GI Disorders - HX OF pancreatitis- STATES LAST ABOUT 2 WEEKS AGO- STATES SLIGHT CASE Denies: Hx Ulcer History: Denies: Hx Dialysis, Hx Renal Disease Musculoskeletal History: Reports: Hx Arthritis, Hx Back Problems, Other Musculoskeletal History - GEN MUSCULOSKELETAL PAIN Denies: Hx Rheumatoid Arthritis, Hx Bursitis, Hx Congenital Bone Abnormalities, Hx Fibromyalgia, Hx Gout, Hx Orthopedic Injury, Hx Osteoporosis, Hx Scoliosis, Hx Tendonitis Sensory History: Reports: Hx Contacts or Glasses, Hx Vision Problem Denies: Hx Cataracts, Hx Eye Injury, Hx Eye Prosthesis, Hx Glaucoma, Hx Macular Degeneration, Hx Deafness, Hx Hearing Aid, Hx Hearing Problem, Other Sensory Impairments Opthamlomology History: Reports: Hx Contacts or Glasses, Hx Vision Problem Denies: Hx Cataracts, Hx Eye Injury, Hx Eye Prosthesis, Hx Glaucoma, Hx Macular Degeneration, Other Sensory Impairments Neurological History: Reports: Hx Developmental Delay - intellectual disability , Hx Seizures - STATES WITH ALLERGIC REACTION TO TRAMADOL Denies: Hx Dementia, Other Neuro Impairments/Disorders Psychiatric History: Reports: Hx Anxiety - ON MEDICATION FOR, Hx Depression - ON MEDICATION FOR, Hx Post Traumatic Stress Disorder, Hx Inpatient Treatment, Hx Community Mental Health Tx, Hx Bipolar Disorder - pt manic, Hx Suicide Attempt - past med overdoses, Hx of Violent Episodes Against Others, Other Psychiatric Issues/Disorders - PSYCHOSIS NOS, HX OF PTSD, SCHIZOAFFECTIVE DISORDER, BORDERLINE PERSONALITY Denies: Hx Attention Deficit Hyperactivity Disorder, Hx Eating Disorder, Hx Panic Disorder, Hx Schizophrenia, Hx Substance Abuse - Surgical History Surgery Procedure, Year, and Place: 2011-CATARACT EXTRACTION. GALLBLADDER REMOVED Hx Anesthesia Reactions: No - Immunization History Date of Tetanus Vaccine: Unknown Date of Influenza Vaccine: 04/2017 Infectious Disease History: No Infectious Disease History: Denies: Hx Clostridium Difficile, Hx Hepatitis, Hx Human Immunodeficiency Virus (HIV), Hx of Known/Suspected MRSA, Hx Shingles, Hx Tuberculosis, Hx Known/ Suspected VRE, Hx Known/Suspected VRSA, History Other Infectious Disease, Traveled Outside the [place] in Last 30 Days - Family History Known Family History: Positive: None - reviewed & noncontributory, Other - Anxiety and depression, [place] - father Negative: Cardiac Disease, Hypertension, Diabetes Family History: Depression and anxiety - Social History Alcohol Use: None Hx Substance Use: Yes Substance Use Type: Reports: None Hx Tobacco Use: Yes Smoking Status (MU): Former Smoker Type: Cigarettes Amount Used/How Often: Quit for 2 years, but started again in March. USING THE NICOTINE Length of Time of Smoking/Using Tobacco: 2 year ago Have You Smoked in the Last Year: Yes - Patient has smoked within the last 30 days Review of Systems Negative: Fever Positive: Chest Pain Negative: Shortness Of Breath, Cough All Other Systems Reviewed And Are Negative: Yes Physical Exam Triage Information Reviewed: Yes Vital Signs On Initial Exam: Initial Vitals Temp Pulse Resp BP Pulse Ox 100.2 F 115 20 162/120 97 08/02/17 17:38 08/02/17 17:38 08/02/17 17:38 08/02/17 17:38 08/02/17 17:38 Vital Signs Reviewed: Yes Appearance: Positive: Well-Appearing Skin: Positive: Warm, Dry Head/Face: Positive: Normal Head/Face Inspection Eyes: Positive: Normal, EOMI, JENNIFER, Conjunctiva Clear ENT: Positive: Normal ENT inspection, Pharynx normal, TMs normal Neck: Positive: Supple, Nontender, No Lymphadenopathy Respiratory/Lung Sounds: Positive: Clear to Auscultation, Breath Sounds Present , Other - tenderness on right side of chest Cardiovascular: Positive: Normal, RRR Abdomen Description: Positive: Nontender, Soft Bowel Sounds: Positive: Present Musculoskeletal: Positive: Normal Neurological: Positive: Normal Diagnostics - Vital Signs Vital Signs Temp Pulse Resp BP Pulse Ox 08/03/17 00:01 86 15 112/66 94 08/03/17 00:00 87 12 94 08/02/17 23:53 88 17 95 08/02/17 23:50 128/68 08/02/17 22:10 98.4 F 88 18 118/98 98 08/02/17 19:41 98.8 F 118 18 139/96 95 08/02/17 17:38 100.2 F 115 20 162/120 97 - Laboratory Lab Results: Lab Results 08/02/17 08/02/17 08/02/17 Range/Units 21:30 21:30 23:33 WBC 13.8 H (3.5-10.8) 10^3/ul RBC 4.64 (4.0-5.4) 10^6/ul Hgb 12.2 (12.0-16.0) g/dl Hct 37 (35-47) % MCV 80 (80-97) fL MCH 26 L (27-31) pg MCHC 33 (31-36) g/dl RDW 17 H (10.5-15) % Plt Count 244 (150-450) 10^3/ul MPV 9 (7.4-10.4) um3 Neut % (Auto) 73.7 (38-83) % Lymph % (Auto) 17.0 L (25-47) % Simpson % (Auto) 4.6 (1-9) % Eos % (Auto) 4.0 (0-6) % Baso % (Auto) 0.7 (0-2) % Absolute Neuts (auto) 10.2 H (1.5-7.7) 10^3/ul Absolute Lymphs (auto) 2.3 (1.0-4.8) 10^3/ul Absolute Monos (auto) 0.6 (0-0.8) 10^3/ul Absolute Eos (auto) 0.6 (0-0.6) 10^3/ul Absolute Basos (auto) 0.1 (0-0.2) 10^3/ul Absolute Nucleated RBC 0.01 10^3/ul Nucleated RBC % 0 Sodium 133 (133-145) mmol/L Potassium 4.7 (3.5-5.0) mmol/L Chloride 101 (101-111) mmol/L Carbon Dioxide 26 (22-32) mmol/L Anion Gap 6 (2-11) mmol/L BUN 16 (6-24) mg/dL Creatinine 0.79 (0.51-0.95) mg/dL Est GFR ( Amer) 98.7 (>60) Est GFR (Non-Af Amer) 76.7 (>60) BUN/Creatinine Ratio 20.3 H (8-20) Glucose 168 H (70-100) mg/dL Calcium 9.7 (8.6-10.3) mg/dL Total Bilirubin 0.20 (0.2-1.0) mg/dL AST 33 (13-39) U/L ALT 25 (7-52) U/L Alkaline Phosphatase 203 H (34-104) U/L Troponin I 0.03 0.01 (<0.04) ng/mL Total Protein 7.5 (6.4-8.9) g/dL Albumin 3.6 (3.2-5.2) g/dL Globulin 3.9 (2-4) g/dL Albumin/Globulin Ratio 0.9 L (1-3) Result Diagrams: 08/02/17 21:30 08/02/17 21:30 Lab Statement: Any lab studies that have been ordered have been reviewed, and results considered in the medical decision making process. - Radiology chest Xray Interpretation: No Acute Changes - improved from previous Radiology Interpretation Completed By: ED Physician - EKG No standard instances Cardiac Rate: Tachycardia EKG Rhythm: Sinus Tachycardia EKG Interpretation: sinus tachycardia Disposition - Course Course Of Treatment: 52F presents with intermittent sternal chest pain for past couple days. She states it started when she develop an upper respiratory infection. She states pain is sharp and located on the right side of her chest. The pain does not radiate anywhere. She has been taking her zpack as prescribed. She states breathing does not change the pain. She has had an intermittent cough that she states she is not able to get another up with. She denies any fevers. She states she lost her macrobid but was given another script by urgent care that has been taking for her UTI. She states her sugar have been off so her primary advised her to come here. She denies any abdominal pain, nausea or vomiting. She denies any SOB. She states her inhaler does not help the chest pain. She states she has not had much of an appetite. on exam patient vitals in room are normal 80 hr, O2 98, normal temp. reproducible chest tenderness right side. labs wbc elevated but similiar to previous. glucose 167. 2 neg troponins. due to allergies is not another medication can switch to for pneumonia although chest xray read by me looks better. told to follow up with primary and continue current treatment plan. - Differential Dx - Cardiopulmonary Differential Diagnoses - Cardiopulmonary: Bronchitis, Chest Wall Pain, Lower Resp Infection - Diagnoses Provider Diagnoses: Upper respiratory infection, Chest pain Discharge - Discharge Plan Condition: Good Disposition: HOME Patient Education Materials: Upper Respiratory Infection (ED) Referrals: Chapo Aguila MD [Primary Care Provider] - Additional Instructions: Finish antibiotics as prescribed Take Tylenol for pain every 6 hours Follow up with primary within 5 days Return to ED if develop any new or worsening symptoms
[2017-08-03 01:50] VITALS: BP 122/67
--- NOTE | 2017-08-03 07:50 | RAD ---
INDICATION: Chest pain. COMPARISON: Comparison is made with a prior study from July 29, 2017. TECHNIQUE: Dual-energy PA and lateral views of the chest were obtained. FINDINGS: The heart is within normal limits in size. Mediastinal and hilar contours appear within normal limits. There is near complete resolution of the previously noted faint right upper lobe infiltrate. The lungs are otherwise clear. No pleural effusion is seen. IMPRESSION: NEAR COMPLETE RESOLUTION OF THE PREVIOUSLY NOTED SMALL RIGHT UPPER LOBE INFILTRATE.
== END 2017-08-03 00:23 | disposition home or self-care (01) ==
LOC: ED 17:33
DX: R07.9 Chest pain, unspecified (principal); Z53.21 Procedure and treatment not carried out due to patient leaving prior to being seen by health care provider
CPT/HCPCS: 36415; 71046; 80053; 84484; 85025; 93005

== ENCOUNTER 2017-08-03 18:55 | Emergency (ER) | payer MEDICARE, MEDICAID ==
[2017-08-03] MEDS ORDERED: NS 0.9% 1000 ML* 1,000 ML IV ONE (19:59)
[2017-08-03 20:55] LABS: ABS Basophils 0.1 10^3/ul (0-0.2); ABS Eosinophils 0.6 10^3/ul (0-0.6); ABS Lymphocytes 2.4 10^3/ul (1.0-4.8); ABS Monocytes 0.6 10^3/ul (0-0.8); ABS Neutrophils 7.2 10^3/ul (1.5-7.7); ABS Nucleated RBC 0 10^3/ul; Eosinophil % 5.5 % (0-6); Hematocrit 37 % (35-47); Hemoglobin 12.1 g/dl (12.0-16.0); Lymphocyte % 22.1 % (25-47); Mean Corpuscular HGB Conc 32 g/dl (31-36); Mean Corpuscular Hemoglobin 26 pg (27-31); Mean Corpuscular Volume 81 fL (80-97); Mean Platelet Volume 9 um3 (7.4-10.4); Nucleated Red Blood Cells % 0; Platelet Count 241 10^3/ul (150-450); Red Blood Count 4.61 10^6/ul (4.0-5.4); Red Cell Distribution Width 18 % (10.5-15); White Blood Count 10.9 10^3/ul (3.5-10.8)
[2017-08-03 21:04] LABS: EGFR Non-African American 67.7 (>60)
[2017-08-03 21:50] LABS: Urine Appearance Cloudy; Urine Blood Negative (Negative); Urine Color Yellow; Urine Ketones Negative (Negative); Urine Protein Negative (Negative); Urine Specific Gravity 1.012 (1.010-1.030); Urine Urobilinogen Negative (Negative)
[2017-08-04] MEDS ORDERED: Insulin REGULAR(*) 1 UNITS UNIT SUBCUT ONE (00:41)
--- NOTE | 2017-08-04 11:23 | PN ---
ED Flex Patient Progress Note Date of Service: 08/04/17 Subjective: This is a 52 year-old F who is pending discharge to home. She denies SI and states that she has a follow up appointment with therapist Sahil Grewal at [facility] on August 08. Objective: Patient is calm, cooperative; denies SI or HI. Showered and groomed. Assessment: Borderline PD Plan: Patient would not benefit from psychiatric admission. D/C to home. Vital Signs Temp Pulse Resp BP Pulse Ox 98.3 F 83 16 107/70 93 08/03/17 19:58 08/04/17 04:48 08/04/17 04:48 08/04/17 04:48 08/04/17 04:48 Lab Results - Entire Visit 08/04/17 08/04/17 08/03/17 07:58 00:39 21:23 WBC RBC Hgb Hct MCV MCH MCHC RDW Plt Count MPV Neut % (Auto) Lymph % (Auto) [place] % (Auto) Eos % (Auto) Baso % (Auto) Absolute Neuts (auto) Absolute Lymphs (auto) Absolute Monos (auto) Absolute Eos (auto) Absolute Basos (auto) Absolute Nucleated RBC Nucleated RBC % Sodium Potassium Chloride Carbon Dioxide Anion Gap BUN Creatinine Est GFR ( Amer) Est GFR (Non-Af Amer) BUN/Creatinine Ratio Glucose POC Glucose (mg/dL) 175 H 284 H Calcium Total Bilirubin AST ALT Alkaline Phosphatase Total Protein Albumin Globulin Albumin/Globulin Ratio TSH Urine Color Yellow Urine Appearance Cloudy Urine pH 5.0 Ur Specific [place] 1.012 Urine Protein Negative Urine Ketones Negative Urine Blood Negative Urine Nitrate Negative Urine Bilirubin Negative Urine Urobilinogen Negative Ur Leukocyte Esterase Trace H Urine WBC (Auto) Trace(0-5/hpf) Urine RBC (Auto) Absent Ur Squamous Epith Cells Present H Amorphous Crystals Present H Urine Bacteria 1+ H Urine Glucose 3+(>=500 mg/dl) H Salicylates Urine Opiates Screen Acetaminophen Ur Barbiturates Screen Ur Phencyclidine Scrn Ur Amphetamines Screen U Benzodiazepines Scrn Urine Cocaine Screen U Cannabinoids Screen Serum Alcohol 08/03/17 08/03/17 08/03/17 21:23 20:45 20:45 WBC 10.9 H RBC 4.61 Hgb 12.1 Hct 37 MCV 81 MCH 26 L MCHC 32 RDW 18 H Plt Count 241 MPV 9 Neut % (Auto) 65.9 Lymph % (Auto) 22.1 L [place] % (Auto) 5.9 Eos % (Auto) 5.5 Baso % (Auto) 0.6 Absolute Neuts (auto) 7.2 Absolute Lymphs (auto) 2.4 Absolute Monos (auto) 0.6 Absolute Eos (auto) 0.6 Absolute Basos (auto) 0.1 Absolute Nucleated RBC 0 Nucleated RBC % 0 Sodium 132 L Potassium 4.6 Chloride 98 L Carbon Dioxide 27 Anion Gap 7 BUN 14 Creatinine 0.88 Est GFR ( Amer) 87.1 Est GFR (Non-Af Amer) 67.7 BUN/Creatinine Ratio 15.9 Glucose 399 H POC Glucose (mg/dL) Calcium 8.9 Total Bilirubin 0.20 AST 21 ALT 20 Alkaline Phosphatase 183 H Total Protein 7.4 Albumin 3.4 Globulin 4.0 Albumin/Globulin Ratio 0.9 L TSH 0.60 Urine Color Urine Appearance Urine pH Ur Specific [place] Urine Protein Urine Ketones Urine Blood Urine Nitrate Urine Bilirubin Urine Urobilinogen Ur Leukocyte Esterase Urine WBC (Auto) Urine RBC (Auto) Ur Squamous Epith Cells Amorphous Crystals Urine Bacteria Urine Glucose Salicylates < 2.50 Urine Opiates Screen None detected Acetaminophen < 15 Ur Barbiturates Screen None detected Ur Phencyclidine Scrn None detected Ur Amphetamines Screen None detected U Benzodiazepines Scrn None detected Urine Cocaine Screen None detected U Cannabinoids Screen None detected Serum Alcohol < 10
[2017-08-04] MEDS ORDERED: Azithromycin TAB* 250 MG PO SCH ×2 (12:00→12:39)
[2017-08-04] MEDS ORDERED: Nitrofurantoin Macrocrystals* 100 MG CAP PO SCH (12:00)
[2017-08-04] MEDS ORDERED: Insulin GLARGINE(*) 1 UNITS UNIT SUBCUT SCH (12:00)
[2017-08-04] MEDS ORDERED: Azithromycin TAB* 250 MG PO ONE (12:37)
[2017-08-04] MEDS ORDERED: Nitrofurantoin Macrocrystals* 100 MG CAP PO ONE (12:37)
[2017-08-04 13:18] VITALS: BP 112/84
--- NOTE | 2017-08-04 16:12 | CONSULT ---
Consult Consult: Ms. Schulz presented on a previous shift for a MHE and was medically cleared. She was seen by MH and they felt that she was safe for D/C. She is being D/C'd in stable condition with a diagnosis of Overdose
--- NOTE | 2017-08-06 00:28 | ED ---
Nitish Rosales Gabriel, scribed for Sendy Mcdowell MD on 08/03/17 at 1951 . Psychiatric Complaint - HPI Summary HPI Summary: This patient is a 52 year old F BIBA to [facility] with a chief complaint of SI since last night. Patient reports fatigue and being very sick. The patient was seen in the ED last night for CP and said due to her extended wait she wanted to harm herself by scratching her wrists with her nails. Currently she is saying she cant talk very well and is feeling suicidal due to her vast amount of health issues. Today she reports taking 5 days of her daily medication at 1600 today. She says she feels fine now just tired. - History Of Current Complaint Time Seen by Provider: 08/03/17 19:23 Hx Obtained From: Patient Hx Last Menstrual Period: going through menopause ?: No Onset/Duration: Lasting Days - 1, Still Present Timing: Constant Severity Initially: Mild Severity Currently: Mild Character: Depressed, Lethargic Aggravating Factor(s): Medication Non-compliance, Other - multiple health issues Alleviating Factor(s): Nothing Has Suicidal: Reports: Thoughts, Demonstrates Gesture - Allergies/Home Medications Allergies/Adverse Reactions: Allergies Allergy/AdvReac Type Severity Reaction Status Date / Time Latex Allergy Severe Rash Verified 08/01/17 12:21 Sulfa Antibiotics Allergy Severe Hives Verified 08/01/17 12:21 Penicillins Allergy Intermediate Rash Verified 08/01/17 12:21 Nalbuphine Allergy Unknown Unknown Verified 08/01/17 12:21 Reaction Details Perphenazine Allergy Unknown Unknown Verified 08/01/17 12:21 Reaction Details Ciprofloxacin [From Cipro] AdvReac Severe Dizziness Verified 08/01/17 12:21 Tramadol AdvReac Severe Altered Verified 08/01/17 12:21 Mental Status [place] AdvReac Mild See Comment Verified 08/01/17 12:21 ENVIRONMENTAL Allergy Mild SINUS Uncoded 08/01/17 12:21 Home Medications: Home Medications Gabapentin 1,200 mg PO BEDTIME 08/04/17 [History Confirmed 08/04/17] Janumet 50/500 (NF) 50 - 500 mg PO BID 08/04/17 [History Confirmed 08/04/17] PMH/Surg Hx/FS Hx/Imm Hx Endocrine/Hematology History: Reports: Hx Diabetes, Hx Thyroid Disease, Other Endocrine/Hematological Disorders - Chronic pancreatitis Denies: Hx Anticoagulant Therapy Cardiovascular History: Reports: Hx Hypertension - NO MEDICATION FOR PER PATIENT , Other Cardiovascular Problems/Disorders - PER H&P- HX OF PSVT 04/2008 Denies: Hx Pacemaker/ICD Respiratory History: Reports: Hx Asthma - HX OF, Hx Seasonal Allergies, Hx Sleep Apnea - HX OF IN THE PAST Denies: Hx Chronic Bronchitis, Hx Chronic Obstructive Pulmonary Disease (COPD ), Hx Cystic Fibrosis, Hx Lung Cancer, Hx Pleural Effusion, Hx Pneumonia, Hx Pulmonary Edema, Hx Pulmonary Embolism, Other Respiratory Problems/Disorders GI History: Reports: Hx Gall Bladder Disease, Hx Gastroesophageal Reflux Disease - ON MEDICATION FOR, Hx Gastrointestinal Bleed, Hx Irritable Bowel, Other GI Disorders - HX OF pancreatitis- STATES LAST ABOUT 2 WEEKS AGO- STATES SLIGHT CASE Denies: Hx Ulcer History: Denies: Hx Dialysis, Hx Renal Disease Musculoskeletal History: Reports: Hx Arthritis, Hx Back Problems, Other Musculoskeletal History - GEN MUSCULOSKELETAL PAIN Denies: Hx Rheumatoid Arthritis, Hx Bursitis, Hx Congenital Bone Abnormalities, Hx Fibromyalgia, Hx Gout, Hx Orthopedic Injury, Hx Osteoporosis, Hx Scoliosis, Hx Tendonitis Sensory History: Reports: Hx Contacts or Glasses, Hx Vision Problem Denies: Hx Cataracts, Hx Eye Injury, Hx Eye Prosthesis, Hx Glaucoma, Hx Macular Degeneration, Hx Deafness, Hx Hearing Aid, Hx Hearing Problem, Other Sensory Impairments Opthamlomology History: Reports: Hx Contacts or Glasses, Hx Vision Problem Denies: Hx Cataracts, Hx Eye Injury, Hx Eye Prosthesis, Hx Glaucoma, Hx Macular Degeneration, Other Sensory Impairments Neurological History: Reports: Hx Developmental Delay - intellectual disability , Hx Seizures - STATES WITH ALLERGIC REACTION TO TRAMADOL Denies: Hx Dementia, Other Neuro Impairments/Disorders Psychiatric History: Reports: Hx Anxiety - ON MEDICATION FOR, Hx Depression - ON MEDICATION FOR, Hx Post Traumatic Stress Disorder, Hx Inpatient Treatment, Hx Community Mental Health Tx, Hx Bipolar Disorder - pt manic, Hx Suicide Attempt - past med overdoses, Hx of Violent Episodes Against Others, Other Psychiatric Issues/Disorders - PSYCHOSIS NOS, HX OF PTSD, SCHIZOAFFECTIVE DISORDER, BORDERLINE PERSONALITY Denies: Hx Attention Deficit Hyperactivity Disorder, Hx Eating Disorder, Hx Panic Disorder, Hx Schizophrenia, Hx Substance Abuse - Surgical History Surgery Procedure, Year, and Place: 2011-CATARACT EXTRACTION. GALLBLADDER REMOVED Hx Anesthesia Reactions: No - Immunization History Date of Tetanus Vaccine: Unknown Date of Influenza Vaccine: 04/2017 Infectious Disease History: Denies: Hx Clostridium Difficile, Hx Hepatitis, Hx Human Immunodeficiency Virus (HIV), Hx of Known/Suspected MRSA, Hx Shingles, Hx Tuberculosis, Hx Known/ Suspected VRE, Hx Known/Suspected VRSA, History Other Infectious Disease - Family History Known Family History: Positive: None - reviewed & noncontributory, Other - Anxiety and depression, [place] - father Negative: Cardiac Disease, Hypertension, Diabetes Family History: Depression and anxiety - Social History Alcohol Use: None Hx Substance Use: Yes Substance Use Type: Reports: None Hx Tobacco Use: Yes Smoking Status (MU): Former Smoker Type: Cigarettes Amount Used/How Often: Quit for 2 years, but started again in March. USING THE NICOTINE Length of Time of Smoking/Using Tobacco: 2 year ago Have You Smoked in the Last Year: Yes - Patient has smoked within the last 30 days Review of Systems Positive: Fatigue, Other - general malaise Positive: Depressed, Other - SI All Other Systems Reviewed And Are Negative: Yes Physical Exam - Summary Physical Exam Summary: VITAL SIGNS: Reviewed. GENERAL: Patient is a obese female who is lying comfortable in the stretcher with a flat affect. HEAD AND FACE: No signs of trauma. No ecchymosis, hematomas or skull depressions. No sinus tenderness. EYES: PERRLA, EOMI x 2, No injected conjunctiva, no nystagmus. EARS: Hearing grossly intact. Ear canals and tympanic membranes are within normal limits. MOUTH: Oropharynx within normal limits. NECK: Supple, trachea is midline, no adenopathy, no JVD, no carotid bruit, no c- spine tenderness, neck with full ROM. CHEST: Symmetric, no tenderness at palpation LUNGS: Clear to auscultation bilaterally. No wheezing or crackles. CVS: Regular rate and rhythm, S1 and S2 present, no murmurs or gallops appreciated. ABDOMEN: Soft, non-tender. Patient has abd distension No rebound no guarding, and no masses palpated. Bowel sounds are normal. EXTREMITIES: FROM in all major joints, no edema, no cyanosis or clubbing. NEURO: Alert and oriented x 3. No acute neurological deficits. Speech is normal and follows commands. SKIN: Dry and warm Triage Information Reviewed: Yes Vital Signs On Initial Exam: Initial Vitals Temp Pulse Resp BP Pulse Ox 36.8 C 94 16 129/93 96 08/03/17 19:58 08/03/17 19:58 08/03/17 19:58 08/03/17 19:58 08/03/17 19:58 Vital Signs Reviewed: Yes Diagnostics - Vital Signs Vital Signs Temp Pulse Resp BP Pulse Ox 08/04/17 13:15 36.6 C 88 20 112/84 100 08/04/17 04:48 83 16 107/70 93 08/04/17 00:00 90 19 93 08/03/17 23:30 89 17 107/70 91 08/03/17 23:00 89 15 108/69 95 08/03/17 22:30 86 18 132/91 96 08/03/17 22:00 90 14 117/82 95 08/03/17 21:37 93 19 95 08/03/17 21:36 141/114 08/03/17 19:58 36.8 C 94 16 129/93 96 - Laboratory Lab Results: Lab Results 08/03/17 08/03/17 08/03/17 Range/Units 20:45 20:45 21:23 WBC 10.9 H (3.5-10.8) 10^3/ul RBC 4.61 (4.0-5.4) 10^6/ul Hgb 12.1 (12.0-16.0) g/dl Hct 37 (35-47) % MCV 81 (80-97) fL MCH 26 L (27-31) pg MCHC 32 (31-36) g/dl RDW 18 H (10.5-15) % Plt Count 241 (150-450) 10^3/ul MPV 9 (7.4-10.4) um3 Neut % (Auto) 65.9 (38-83) % Lymph % (Auto) 22.1 L (25-47) % [place] % (Auto) 5.9 (1-9) % Eos % (Auto) 5.5 (0-6) % Baso % (Auto) 0.6 (0-2) % Absolute Neuts (auto) 7.2 (1.5-7.7) 10^3/ul Absolute Lymphs (auto) 2.4 (1.0-4.8) 10^3/ul Absolute Monos (auto) 0.6 (0-0.8) 10^3/ul Absolute Eos (auto) 0.6 (0-0.6) 10^3/ul Absolute Basos (auto) 0.1 (0-0.2) 10^3/ul Absolute Nucleated RBC 0 10^3/ul Nucleated RBC % 0 Sodium 132 L (133-145) mmol/L Potassium 4.6 (3.5-5.0) mmol/L Chloride 98 L (101-111) mmol/L Carbon Dioxide 27 (22-32) mmol/L Anion Gap 7 (2-11) mmol/L BUN 14 (6-24) mg/dL Creatinine 0.88 (0.51-0.95) mg/dL Est GFR ( Amer) 87.1 (>60) Est GFR (Non-Af Amer) 67.7 (>60) BUN/Creatinine Ratio 15.9 (8-20) Glucose 399 H (70-100) mg/dL POC Glucose (mg/dL) (70-100) mg/dL Calcium 8.9 (8.6-10.3) mg/dL Total Bilirubin 0.20 (0.2-1.0) mg/dL AST 21 (13-39) U/L ALT 20 (7-52) U/L Alkaline Phosphatase 183 H (34-104) U/L Total Protein 7.4 (6.4-8.9) g/dL Albumin 3.4 (3.2-5.2) g/dL Globulin 4.0 (2-4) g/dL Albumin/Globulin Ratio 0.9 L (1-3) TSH 0.60 (0.34-5.60) mcIU/mL Urine Color Urine Appearance Urine pH (5-9) Ur Specific [place] (1.010-1.030) Urine Protein (Negative) Urine Ketones (Negative) Urine Blood (Negative) Urine Nitrate (Negative) Urine Bilirubin (Negative) Urine Urobilinogen (Negative) Ur Leukocyte Esterase (Negative) Urine WBC (Auto) (Absent) Urine RBC (Auto) (Absent) Ur Squamous Epith Cells (Absent) Amorphous Crystals (Absent) Urine Bacteria (Absent) Urine Glucose (Negative) Salicylates < 2.50 (<30) mg/dL Urine Opiates Screen None detected (None Detect) Acetaminophen < 15 mcg/mL Ur Barbiturates Screen None detected (None Detect) Ur Phencyclidine Scrn None detected (None Detect) Ur Amphetamines Screen None detected (None Detect) U Benzodiazepines Scrn None detected (None Detect) Urine Cocaine Screen None detected (None Detect) U Cannabinoids Screen None detected (None Detect) Serum Alcohol < 10 (<10) mg/dL 08/03/17 08/04/17 08/04/17 Range/Units 21:23 00:39 07:58 WBC (3.5-10.8) 10^3/ul RBC (4.0-5.4) 10^6/ul Hgb (12.0-16.0) g/dl Hct (35-47) % MCV (80-97) fL MCH (27-31) pg MCHC (31-36) g/dl RDW (10.5-15) % Plt Count (150-450) 10^3/ul MPV (7.4-10.4) um3 Neut % (Auto) (38-83) % Lymph % (Auto) (25-47) % [place] % (Auto) (1-9) % Eos % (Auto) (0-6) % Baso % (Auto) (0-2) % Absolute Neuts (auto) (1.5-7.7) 10^3/ul Absolute Lymphs (auto) (1.0-4.8) 10^3/ul Absolute Monos (auto) (0-0.8) 10^3/ul Absolute Eos (auto) (0-0.6) 10^3/ul Absolute Basos (auto) (0-0.2) 10^3/ul Absolute Nucleated RBC 10^3/ul Nucleated RBC % Sodium (133-145) mmol/L Potassium (3.5-5.0) mmol/L Chloride (101-111) mmol/L Carbon Dioxide (22-32) mmol/L Anion Gap (2-11) mmol/L BUN (6-24) mg/dL Creatinine (0.51-0.95) mg/dL Est GFR ( Amer) (>60) Est GFR (Non-Af Amer) (>60) BUN/Creatinine Ratio (8-20) Glucose (70-100) mg/dL POC Glucose (mg/dL) 284 H 175 H (70-100) mg/dL Calcium (8.6-10.3) mg/dL Total Bilirubin (0.2-1.0) mg/dL AST (13-39) U/L ALT (7-52) U/L Alkaline Phosphatase (34-104) U/L Total Protein (6.4-8.9) g/dL Albumin (3.2-5.2) g/dL Globulin (2-4) g/dL Albumin/Globulin Ratio (1-3) TSH (0.34-5.60) mcIU/mL Urine Color Yellow Urine Appearance Cloudy Urine pH 5.0 (5-9) Ur Specific [place] 1.012 (1.010-1.030) Urine Protein Negative (Negative) Urine Ketones Negative (Negative) Urine Blood Negative (Negative) Urine Nitrate Negative (Negative) Urine Bilirubin Negative (Negative) Urine Urobilinogen Negative (Negative) Ur Leukocyte Esterase Trace H (Negative) Urine WBC (Auto) Trace(0-5/hpf) (Absent) Urine RBC (Auto) Absent (Absent) Ur Squamous Epith Cells Present H (Absent) Amorphous Crystals Present H (Absent) Urine Bacteria 1+ H (Absent) Urine Glucose 3+(>=500 mg/dl) H (Negative) Salicylates (<30) mg/dL Urine Opiates Screen (None Detect) Acetaminophen mcg/mL Ur Barbiturates Screen (None Detect) Ur Phencyclidine Scrn (None Detect) Ur Amphetamines Screen (None Detect) U Benzodiazepines Scrn (None Detect) Urine Cocaine Screen (None Detect) U Cannabinoids Screen (None Detect) Serum Alcohol (<10) mg/dL 08/04/17 Range/Units 12:04 WBC (3.5-10.8) 10^3/ul RBC (4.0-5.4) 10^6/ul Hgb (12.0-16.0) g/dl Hct (35-47) % MCV (80-97) fL MCH (27-31) pg MCHC (31-36) g/dl RDW (10.5-15) % Plt Count (150-450) 10^3/ul MPV (7.4-10.4) um3 Neut % (Auto) (38-83) % Lymph % (Auto) (25-47) % [place] % (Auto) (1-9) % Eos % (Auto) (0-6) % Baso % (Auto) (0-2) % Absolute Neuts (auto) (1.5-7.7) 10^3/ul Absolute Lymphs (auto) (1.0-4.8) 10^3/ul Absolute Monos (auto) (0-0.8) 10^3/ul Absolute Eos (auto) (0-0.6) 10^3/ul Absolute Basos (auto) (0-0.2) 10^3/ul Absolute Nucleated RBC 10^3/ul Nucleated RBC % Sodium (133-145) mmol/L Potassium (3.5-5.0) mmol/L Chloride (101-111) mmol/L Carbon Dioxide (22-32) mmol/L Anion Gap (2-11) mmol/L BUN (6-24) mg/dL Creatinine (0.51-0.95) mg/dL Est GFR ( Amer) (>60) Est GFR (Non-Af Amer) (>60) BUN/Creatinine Ratio (8-20) Glucose (70-100) mg/dL POC Glucose (mg/dL) 258 H (70-100) mg/dL Calcium (8.6-10.3) mg/dL Total Bilirubin (0.2-1.0) mg/dL AST (13-39) U/L ALT (7-52) U/L Alkaline Phosphatase (34-104) U/L Total Protein (6.4-8.9) g/dL Albumin (3.2-5.2) g/dL Globulin (2-4) g/dL Albumin/Globulin Ratio (1-3) TSH (0.34-5.60) mcIU/mL Urine Color Urine Appearance Urine pH (5-9) Ur Specific [place] (1.010-1.030) Urine Protein (Negative) Urine Ketones (Negative) Urine Blood (Negative) Urine Nitrate (Negative) Urine Bilirubin (Negative) Urine Urobilinogen (Negative) Ur Leukocyte Esterase (Negative) Urine WBC (Auto) (Absent) Urine RBC (Auto) (Absent) Ur Squamous Epith Cells (Absent) Amorphous Crystals (Absent) Urine Bacteria (Absent) Urine Glucose (Negative) Salicylates (<30) mg/dL Urine Opiates Screen (None Detect) Acetaminophen mcg/mL Ur Barbiturates Screen (None Detect) Ur Phencyclidine Scrn (None Detect) Ur Amphetamines Screen (None Detect) U Benzodiazepines Scrn (None Detect) Urine Cocaine Screen (None Detect) U Cannabinoids Screen (None Detect) Serum Alcohol (<10) mg/dL Result Diagrams: 08/03/17 20:45 08/03/17 20:45 Lab Statement: Any lab studies that have been ordered have been reviewed, and results considered in the medical decision making process. - EKG 2133 Cardiac Rate: NL EKG Rhythm: Sinus Rhythm - at 88 BPM EKG Interpretation: Normal axis. Normal interval. No ischemic changes Re-Evaluation - Re-Evaluation First Eval Re-Evaluation Time: 22:12 Change: Improved - Patient is stable, labs have been reviewed, and she is medically cleared for [facility]. Course/Dx - Differential Dx/Clinical Impression Provider Diagnosis: Suicidal thoughts Discharge - Discharge Plan Condition: Stable Disposition: HOME Referrals: Chapo Aguila MD [Primary Care Provider] - The documentation as recorded by the Nitish roth Gabriel accurately reflects the service I personally performed and the decisions made by , Sendy Mcdowell MD.
== END 2017-08-04 12:26 | disposition home or self-care (01) ==
LOC: ED 18:55
DX: R45.851 Suicidal ideations (principal); R53.83 Other fatigue; F32.9 Major depressive disorder, single episode, unspecified; Z86.79 Personal history of other diseases of the circulatory system; E11.9 Type 2 diabetes mellitus without complications; Z87.891 Personal history of nicotine dependence
CPT/HCPCS: 36415; 80053; 80307; 80320; 80329; 81003; 81015; 84443; 85025; 87086; 93005; 99285; A9270-GY; G0480

== ENCOUNTER 2017-08-08 21:46 | Emergency (ER) | payer MEDICAID, MEDICARE ==
[2017-08-08 23:36] LABS: ABS Basophils 0.1 10^3/ul (0-0.2); ABS Eosinophils 0.7 10^3/ul (0-0.6); ABS Lymphocytes 3.1 10^3/ul (1.0-4.8); ABS Monocytes 0.6 10^3/ul (0-0.8); ABS Neutrophils 7.4 10^3/ul (1.5-7.7); ABS Nucleated RBC 0 10^3/ul; Eosinophil % 5.7 % (0-6); Hematocrit 39 % (35-47); Hemoglobin 12.3 g/dl (12.0-16.0); Lymphocyte % 25.9 % (25-47); Mean Corpuscular HGB Conc 32 g/dl (31-36); Mean Corpuscular Hemoglobin 26 pg (27-31); Mean Corpuscular Volume 81 fL (80-97); Mean Platelet Volume 9 um3 (7.4-10.4); Nucleated Red Blood Cells % 0; Platelet Count 298 10^3/ul (150-450); Red Blood Count 4.78 10^6/ul (4.0-5.4); Red Cell Distribution Width 18 % (10.5-15); White Blood Count 11.9 10^3/ul (3.5-10.8)
[2017-08-08 23:51] LABS: EGFR Non-African American 74.5 (>60)
[2017-08-09 00:23] LABS: Urine Appearance Cloudy; Urine Blood Negative (Negative); Urine Color Yellow; Urine Ketones Negative (Negative); Urine Protein Negative (Negative); Urine Specific Gravity 1.022 (1.010-1.030); Urine Urobilinogen Negative (Negative)
[2017-08-09] MEDS ORDERED: traZODone TAB* 100 MG PO ONE (03:10)
[2017-08-09] MEDS ORDERED: traZODone TAB* 50 MG TAB ONE (03:14)
[2017-08-09] MEDS ORDERED: traZODone TAB* 50 MG TAB PO ONE (03:16)
--- NOTE | 2017-08-09 07:26 | RAD ---
INDICATION: Ingestion of 3 batteries. COMPARISON: Comparison is made with prior study from July 04, 2017. TECHNIQUE: AP upright and lateral films of the abdomen were obtained. FINDINGS: The small bowel and colon appear nondistended. There are 3 metallic cylindrical structures which project in the right upper quadrant measuring approximately 4.6 cm in length by 1.2 cm in diameter which would be consistent with the patient's history of swallowing 3 batteries. These are likely within the stomach. No free intraperitoneal air is appreciated. There are several surgical clips in right upper quadrant suggestive of a prior cholecystectomy. IMPRESSION: THERE ARE 3 CYLINDRICAL METALLIC STRUCTURES WHICH PROJECT IN THE LEFT UPPER QUADRANT CONSISTENT WITH THE PATIENT'S HISTORY OF SWALLOWING 3 BATTERIES. THESE MOST LIKELY AIR WITHIN THE STOMACH.
--- NOTE | 2017-08-09 07:27 | RAD ---
INDICATION: Ingestion of 3 batteries. COMPARISON: Comparison is made with a prior study from August 02, 2017. TECHNIQUE: A portable view of the chest was obtained. FINDINGS: Cardiac and mediastinal contours appear to be within normal limits. The lungs are clear. No pleural effusion is seen. There are metallic densities which project over the left upper quadrant consistent with the patient's history. IMPRESSION: 1. NO EVIDENCE FOR ACUTE FINDING IN THE CHEST. 2. METALLIC DENSITIES PROJECT IN THE LEFT UPPER QUADRANT CONSISTENT WITH THE PATIENT'S HISTORY.
--- NOTE | 2017-08-09 07:38 | ED ---
Girish Rosales Natalie, scribed for Nathaniel Haro MD on 08/08/17 at 2250 . Psychiatric Complaint - HPI Summary HPI Summary: The pt is a 52 y/o F presenting to the ED c/o swallowing batteries (one alkaline and two lithium rechargeable) at 20:30. She states I havent been doing well for a while. She says that she has a lot of stressors, and shes been feeling very depressed with SI. She thinks that she [place] [facility] [place] is not getting any help and needs it. She rates her pain as 2/ 10. - History Of Current Complaint Chief Complaint: EDMentalHealth Time Seen by Provider: 08/08/17 22:36 Hx Obtained From: Patient Hx Last Menstrual Period: going through menopause Onset/Duration: Still Present Severity Initially: Moderate Severity Currently: Moderate Character: Depressed Aggravating Factor(s): Recent Stress Alleviating Factor(s): Nothing Related History: Positive For: Prior Psychiatric Issues Has Suicidal: Reports: Thoughts Ingestion History: Type/Name Of Drug - 1 alkaline and 2 lithium batteries - Allergies/Home Medications Allergies/Adverse Reactions: Allergies Allergy/AdvReac Type Severity Reaction Status Date / Time Latex Allergy Severe Rash Verified 08/01/17 12:21 Sulfa Antibiotics Allergy Severe Hives Verified 08/01/17 12:21 Penicillins Allergy Intermediate Rash Verified 08/01/17 12:21 Nalbuphine Allergy Unknown Unknown Verified 08/01/17 12:21 Reaction Details Perphenazine Allergy Unknown Unknown Verified 08/01/17 12:21 Reaction Details Ciprofloxacin [From Cipro] AdvReac Severe Dizziness Verified 08/01/17 12:21 Tramadol AdvReac Severe Altered Verified 08/01/17 12:21 Mental Status [place] AdvReac Mild See Comment Verified 08/01/17 12:21 ENVIRONMENTAL Allergy Mild SINUS Uncoded 08/01/17 12:21 PMH/Surg Hx/FS Hx/Imm Hx Previously Healthy: No Endocrine/Hematology History: Reports: Hx Diabetes, Hx Thyroid Disease, Other Endocrine/Hematological Disorders - Chronic pancreatitis Denies: Hx Anticoagulant Therapy Cardiovascular History: Reports: Hx Hypertension - NO MEDICATION FOR PER PATIENT , Other Cardiovascular Problems/Disorders - PER H&P- HX OF PSVT 04/2008 Denies: Hx Pacemaker/ICD Respiratory History: Reports: Hx Asthma - HX OF, Hx Seasonal Allergies, Hx Sleep Apnea - HX OF IN THE PAST Denies: Hx Chronic Bronchitis, Hx Chronic Obstructive Pulmonary Disease (COPD ), Hx Cystic Fibrosis, Hx Lung Cancer, Hx Pleural Effusion, Hx Pneumonia, Hx Pulmonary Edema, Hx Pulmonary Embolism, Other Respiratory Problems/Disorders GI History: Reports: Hx Gall Bladder Disease, Hx Gastroesophageal Reflux Disease - ON MEDICATION FOR, Hx Gastrointestinal Bleed, Hx Irritable Bowel, Other GI Disorders - HX OF pancreatitis- STATES LAST ABOUT 2 WEEKS AGO- STATES SLIGHT CASE Denies: Hx Ulcer History: Denies: Hx Dialysis, Hx Renal Disease Musculoskeletal History: Reports: Hx Arthritis, Hx Back Problems, Other Musculoskeletal History - GEN MUSCULOSKELETAL PAIN Denies: Hx Rheumatoid Arthritis, Hx Bursitis, Hx Congenital Bone Abnormalities, Hx Fibromyalgia, Hx Gout, Hx Orthopedic Injury, Hx Osteoporosis, Hx Scoliosis, Hx Tendonitis Sensory History: Reports: Hx Contacts or Glasses, Hx Vision Problem Denies: Hx Cataracts, Hx Eye Injury, Hx Eye Prosthesis, Hx Glaucoma, Hx Macular Degeneration, Hx Deafness, Hx Hearing Aid, Hx Hearing Problem, Other Sensory Impairments Opthamlomology History: Reports: Hx Contacts or Glasses, Hx Vision Problem Denies: Hx Cataracts, Hx Eye Injury, Hx Eye Prosthesis, Hx Glaucoma, Hx Macular Degeneration, Other Sensory Impairments Neurological History: Reports: Hx Developmental Delay - intellectual disability , Hx Seizures - STATES WITH ALLERGIC REACTION TO TRAMADOL Denies: Hx Dementia, Other Neuro Impairments/Disorders Psychiatric History: Reports: Hx Anxiety - ON MEDICATION FOR, Hx Depression - ON MEDICATION FOR, Hx Post Traumatic Stress Disorder, Hx Inpatient Treatment, Hx Community Mental Health Tx, Hx Bipolar Disorder - pt manic, Hx Suicide Attempt - past med overdoses, Hx of Violent Episodes Against Others, Other Psychiatric Issues/Disorders - PSYCHOSIS NOS, HX OF PTSD, SCHIZOAFFECTIVE DISORDER, BORDERLINE PERSONALITY Denies: Hx Attention Deficit Hyperactivity Disorder, Hx Eating Disorder, Hx Panic Disorder, Hx Schizophrenia, Hx Substance Abuse - Surgical History Surgery Procedure, Year, and Place: 2011-CATARACT EXTRACTION. GALLBLADDER REMOVED Hx Anesthesia Reactions: No - Immunization History Date of Tetanus Vaccine: Unknown Date of Influenza Vaccine: 04/2017 Infectious Disease History: No Infectious Disease History: Denies: Hx Clostridium Difficile, Hx Hepatitis, Hx Human Immunodeficiency Virus (HIV), Hx of Known/Suspected MRSA, Hx Shingles, Hx Tuberculosis, Hx Known/ Suspected VRE, Hx Known/Suspected VRSA, History Other Infectious Disease, Traveled Outside the [place] in Last 30 Days - Family History Known Family History: Positive: Other - Anxiety and depression, [place] - father Negative: Cardiac Disease, Hypertension, Diabetes Family History: Depression and anxiety - Social History Alcohol Use: None Hx Substance Use: Yes Substance Use Type: Reports: None Hx Tobacco Use: Yes Smoking Status (MU): Former Smoker Type: Cigarettes Amount Used/How Often: Quit for 2 years, but started again in March. USING THE NICOTINE Length of Time of Smoking/Using Tobacco: 2 year ago Have You Smoked in the Last Year: Yes - Patient has smoked within the last 30 days Review of Systems Negative: Fever Gastrointestinal: Other - ingestion of 3 batteries Positive: Depressed All Other Systems Reviewed And Are Negative: Yes Physical Exam Triage Information Reviewed: Yes Vital Signs On Initial Exam: Initial Vitals Temp Pulse Resp BP Pulse Ox 99.6 F 100 20 117/60 96 08/08/17 21:52 08/08/17 21:52 08/08/17 21:52 08/08/17 21:52 08/08/17 21:52 Vital Signs Reviewed: Yes Appearance: Positive: Well-Appearing, No Pain Distress Skin: Positive: Warm, Skin Color Reflects Adequate Perfusion, Dry Head/Face: Positive: Normal Head/Face Inspection Eyes: Positive: EOMI, JENNIFER ENT: Positive: Normal ENT inspection Neck: Positive: Supple, Nontender Respiratory/Lung Sounds: Positive: Clear to Auscultation, Breath Sounds Present Cardiovascular: Positive: RRR Abdomen Description: Positive: Nontender, Soft Bowel Sounds: Positive: Present Musculoskeletal: Positive: Normal, Strength/ROM Intact Neurological: Positive: Normal, Sensory/Motor Intact, Alert, Oriented to Person Place, Time Psychiatric: Positive: Affect/Mood Appropriate - [place] Coma Scale Coma Scale Total: 15 Diagnostics - Vital Signs Vital Signs Temp Pulse Resp BP Pulse Ox 08/08/17 21:52 99.6 F 100 20 117/60 96 - Laboratory Lab Results: Lab Results 08/08/17 08/08/17 08/08/17 Range/Units 23:12 23:12 23:56 WBC 11.9 H (3.5-10.8) 10^3/ul RBC 4.78 (4.0-5.4) 10^6/ul Hgb 12.3 (12.0-16.0) g/dl Hct 39 (35-47) % MCV 81 (80-97) fL MCH 26 L (27-31) pg MCHC 32 (31-36) g/dl RDW 18 H (10.5-15) % Plt Count 298 (150-450) 10^3/ul MPV 9 (7.4-10.4) um3 Neut % (Auto) 62.0 (38-83) % Lymph % (Auto) 25.9 (25-47) % [place] % (Auto) 5.2 (1-9) % Eos % (Auto) 5.7 (0-6) % Baso % (Auto) 1.2 (0-2) % Absolute Neuts (auto) 7.4 (1.5-7.7) 10^3/ul Absolute Lymphs (auto) 3.1 (1.0-4.8) 10^3/ul Absolute Monos (auto) 0.6 (0-0.8) 10^3/ul Absolute Eos (auto) 0.7 H (0-0.6) 10^3/ul Absolute Basos (auto) 0.1 (0-0.2) 10^3/ul Absolute Nucleated RBC 0 10^3/ul Nucleated RBC % 0 Sodium 136 (133-145) mmol/L Potassium 4.3 (3.5-5.0) mmol/L Chloride 100 L (101-111) mmol/L Carbon Dioxide 29 (22-32) mmol/L Anion Gap 7 (2-11) mmol/L BUN 18 (6-24) mg/dL Creatinine 0.81 (0.51-0.95) mg/dL Est GFR ( Amer) 95.9 (>60) Est GFR (Non-Af Amer) 74.5 (>60) BUN/Creatinine Ratio 22.2 H (8-20) Glucose 341 H (70-100) mg/dL Calcium 9.5 (8.6-10.3) mg/dL Total Bilirubin 0.20 (0.2-1.0) mg/dL AST 16 (13-39) U/L ALT 15 (7-52) U/L Alkaline Phosphatase 158 H (34-104) U/L Total Protein 7.8 (6.4-8.9) g/dL Albumin 3.7 (3.2-5.2) g/dL Globulin 4.1 H (2-4) g/dL Albumin/Globulin Ratio 0.9 L (1-3) TSH 2.67 (0.34-5.60) mcIU/mL Urine Color Urine Appearance Urine pH (5-9) Ur Specific [place] (1.010-1.030) Urine Protein (Negative) Urine Ketones (Negative) Urine Blood (Negative) Urine Nitrate (Negative) Urine Bilirubin (Negative) Urine Urobilinogen (Negative) Ur Leukocyte Esterase (Negative) Urine Glucose (Negative) Salicylates < 2.50 (<30) mg/dL Urine Opiates Screen None detected (None Detect) Acetaminophen < 15 mcg/mL Ur Barbiturates Screen None detected (None Detect) Ur Phencyclidine Scrn None detected (None Detect) Ur Amphetamines Screen None detected (None Detect) U Benzodiazepines Scrn None detected (None Detect) Urine Cocaine Screen None detected (None Detect) U Cannabinoids Screen None detected (None Detect) Serum Alcohol < 10 (<10) mg/dL 08/08/17 Range/Units 23:56 WBC (3.5-10.8) 10^3/ul RBC (4.0-5.4) 10^6/ul Hgb (12.0-16.0) g/dl Hct (35-47) % MCV (80-97) fL MCH (27-31) pg MCHC (31-36) g/dl RDW (10.5-15) % Plt Count (150-450) 10^3/ul MPV (7.4-10.4) um3 Neut % (Auto) (38-83) % Lymph % (Auto) (25-47) % [place] % (Auto) (1-9) % Eos % (Auto) (0-6) % Baso % (Auto) (0-2) % Absolute Neuts (auto) (1.5-7.7) 10^3/ul Absolute Lymphs (auto) (1.0-4.8) 10^3/ul Absolute Monos (auto) (0-0.8) 10^3/ul Absolute Eos (auto) (0-0.6) 10^3/ul Absolute Basos (auto) (0-0.2) 10^3/ul Absolute Nucleated RBC 10^3/ul Nucleated RBC % Sodium (133-145) mmol/L Potassium (3.5-5.0) mmol/L Chloride (101-111) mmol/L Carbon Dioxide (22-32) mmol/L Anion Gap (2-11) mmol/L BUN (6-24) mg/dL Creatinine (0.51-0.95) mg/dL Est GFR ( Amer) (>60) Est GFR (Non-Af Amer) (>60) BUN/Creatinine Ratio (8-20) Glucose (70-100) mg/dL Calcium (8.6-10.3) mg/dL Total Bilirubin (0.2-1.0) mg/dL AST (13-39) U/L ALT (7-52) U/L Alkaline Phosphatase (34-104) U/L Total Protein (6.4-8.9) g/dL Albumin (3.2-5.2) g/dL Globulin (2-4) g/dL Albumin/Globulin Ratio (1-3) TSH (0.34-5.60) mcIU/mL Urine Color Yellow Urine Appearance Cloudy Urine pH 6.0 (5-9) Ur Specific [place] 1.022 (1.010-1.030) Urine Protein Negative (Negative) Urine Ketones Negative (Negative) Urine Blood Negative (Negative) Urine Nitrate Negative (Negative) Urine Bilirubin Negative (Negative) Urine Urobilinogen Negative (Negative) Ur Leukocyte Esterase Negative (Negative) Urine Glucose 3+(>=500 mg/dl) H (Negative) Salicylates (<30) mg/dL Urine Opiates Screen (None Detect) Acetaminophen mcg/mL Ur Barbiturates Screen (None Detect) Ur Phencyclidine Scrn (None Detect) Ur Amphetamines Screen (None Detect) U Benzodiazepines Scrn (None Detect) Urine Cocaine Screen (None Detect) U Cannabinoids Screen (None Detect) Serum Alcohol (<10) mg/dL Result Diagrams: 08/08/17 23:12 08/08/17 23:12 Lab Statement: Any lab studies that have been ordered have been reviewed, and results considered in the medical decision making process. - EKG 23:16 Cardiac Rate: NL EKG Rhythm: Sinus Rhythm - 98 BPM EKG Interpretation: LVH. No ectopy. Flipped Ts in aVF and V3. Course/Dx - Course Course Of Treatment: Medications reviewed. Allergies noted. PATIENT HAS NO ABDOMINAL PAIN. THE THREE CYLINDRICAL BATTERIES ARE VISUALISED ON THE ABD X- RAY. THIS WAS DISCUSSED ALBERT BOWMAN. HE RECOMMENDED LIQUID DIET AND TO GET ANOTHER ABD X-RAY AT 10AM ON 08/09/17. NO CRITICAL CARE TIME. DISPOSITION AND MHE PENDING AT SHIFT CHANGE. - Differential Dx/Clinical Impression Provider Diagnosis: Intentional ingestion of batteries, Mental health problem Discharge - Discharge Plan Condition: Stable Disposition: OTHER Discharge Disposition Comment: . Referrals: Chapo Aguila MD [Primary Care Provider] - The documentation as recorded by the Girish roth Natalie accurately reflects the service I personally performed and the decisions made by me, Nathaniel Haro MD.
--- NOTE | 2017-08-09 09:36 | PN ---
ED Flex Patient Progress Note Subjective: This is a 52 year-old F who is pending a repeat AB XR for swallowing batteries and mental health evaluation secondary to ____SI with swallowing batteries . Pt reports lower ab discomfort and reduced appetite. Did not sleep well last night d/t uncomfortable mattress. No other complaints at this time. Objective: Vitals: Most recent vital signs documented below. General NAD, Alert and oriented x3. Heart: S1/S2, RRR Lungs: CTA AB: + BS, soft, mild lower/central ab tenderness - no rebounding -pt tolerating PO fluids well Glucose: 266 (down from 341 from last night w/o medication) Assessment: 1) Swallowed batteries 2) Diabetes 3) SI Plan: 1) Pending repeat AB XR at 10:00am per GI 2 ) Will refrain from administering insulin as pt's baseline is around 200's and she's only taking PO liquids until testing/plan for FB in GI tract mentioned above is complete 3) Pending psychiatric evaluation based on medical testing as mentioned above. Will follow up daily _while in ED____. Vital Signs Temp Pulse Resp BP Pulse Ox 97.9 F 77 16 129/78 97 08/09/17 09:01 08/09/17 09:01 08/09/17 09:01 08/09/17 09:01 08/09/17 09:01 Lab Results - Entire Visit 08/09/17 08/08/17 08/08/17 09:09 23:56 23:56 WBC RBC Hgb Hct MCV MCH MCHC RDW Plt Count MPV Neut % (Auto) Lymph % (Auto) [place] % (Auto) Eos % (Auto) Baso % (Auto) Absolute Neuts (auto) Absolute Lymphs (auto) Absolute Monos (auto) Absolute Eos (auto) Absolute Basos (auto) Absolute Nucleated RBC Nucleated RBC % Sodium Potassium Chloride Carbon Dioxide Anion Gap BUN Creatinine Est GFR ( Amer) Est GFR (Non-Af Amer) BUN/Creatinine Ratio Glucose POC Glucose (mg/dL) 266 H Calcium Total Bilirubin AST ALT Alkaline Phosphatase Total Protein Albumin Globulin Albumin/Globulin Ratio TSH Urine Color Yellow Urine Appearance Cloudy Urine pH 6.0 Ur Specific [place] 1.022 Urine Protein Negative Urine Ketones Negative Urine Blood Negative Urine Nitrate Negative Urine Bilirubin Negative Urine Urobilinogen Negative Ur Leukocyte Esterase Negative Urine Glucose 3+(>=500 mg/dl) H Salicylates Urine Opiates Screen None detected Acetaminophen Ur Barbiturates Screen None detected Ur Phencyclidine Scrn None detected Ur Amphetamines Screen None detected U Benzodiazepines Scrn None detected Urine Cocaine Screen None detected U Cannabinoids Screen None detected Serum Alcohol 08/08/17 08/08/17 23:12 23:12 WBC 11.9 H RBC 4.78 Hgb 12.3 Hct 39 MCV 81 MCH 26 L MCHC 32 RDW 18 H Plt Count 298 MPV 9 Neut % (Auto) 62.0 Lymph % (Auto) 25.9 [place] % (Auto) 5.2 Eos % (Auto) 5.7 Baso % (Auto) 1.2 Absolute Neuts (auto) 7.4 Absolute Lymphs (auto) 3.1 Absolute Monos (auto) 0.6 Absolute Eos (auto) 0.7 H Absolute Basos (auto) 0.1 Absolute Nucleated RBC 0 Nucleated RBC % 0 Sodium 136 Potassium 4.3 Chloride 100 L Carbon Dioxide 29 Anion Gap 7 BUN 18 Creatinine 0.81 Est GFR ( Amer) 95.9 Est GFR (Non-Af Amer) 74.5 BUN/Creatinine Ratio 22.2 H Glucose 341 H POC Glucose (mg/dL) Calcium 9.5 Total Bilirubin 0.20 AST 16 ALT 15 Alkaline Phosphatase 158 H Total Protein 7.8 Albumin 3.7 Globulin 4.1 H Albumin/Globulin Ratio 0.9 L TSH 2.67 Urine Color Urine Appearance Urine pH Ur Specific [place] Urine Protein Urine Ketones Urine Blood Urine Nitrate Urine Bilirubin Urine Urobilinogen Ur Leukocyte Esterase Urine Glucose Salicylates < 2.50 Urine Opiates Screen Acetaminophen < 15 Ur Barbiturates Screen Ur Phencyclidine Scrn Ur Amphetamines Screen U Benzodiazepines Scrn Urine Cocaine Screen U Cannabinoids Screen Serum Alcohol < 10
--- NOTE | 2017-08-09 11:03 | RAD ---
Indication: Foreign body evaluation. Single view of the abdomen demonstrates 3 foreign body is noted scattered throughout the abdomen presumably within small bowel or colon. IMPRESSION: 3 radiopaque foreign bodies consistent with batteries are noted.
--- NOTE | 2017-08-09 13:17 | ED ---
Jordon Rosales Angela, scribed for Yeyo Mcfarland MD on 08/09/17 at 0721 . Progress - Progress Note Progress Note: This pt was signed out by Dr. Haro, pending disposition, awaiting repeat abdomen XR. Pt is a 52 y/o female presenting to [facility] c/o SI and ingestion of batteries ( one alkaline and two lithium rechargeable) at 20:30 last night. Pt is medically cleared after reviewing abd XR. Dr. Cunningham evaluated the pt's case and recommends discharge once pt is medically cleared. Pt will be discharged to home in stable condition. She is to follow up as an outpatient with [facility]. - Results/Orders Results/Orders: Abdomen XR, as read per radiologist: IMPRESSION: 3 radiopaque foreign bodies consistent with batteries are noted. Dr. Mcfarland has reviewed this radiology report. - Consult/PCP Time Called: 21:52 Course/Dx - Course Course Of Treatment: I spoke with GI physician Dr. Corey regarding case and repeat xr showing migration of batteries. We agreed on plan for outpatient psychiatric f/u, no acute treatment needed for batteries at this time. Consistent with prior episodes and behaviors in the past. Agrees to dc instructions. - Diagnoses Provider Diagnoses: Intentional ingestion of batteries, Mental health problem - Provider Notifications Discussed Care Of Patient With: Odin Corey Time Discussed With Above Provider: 11:56 Instructed by Provider To: Other - I discussed pt care with Dr. Corey, ceramic sprayer. The documentation as recorded by the Jordon roth Angela accurately reflects the service I personally performed and the decisions made by fl, Yeyo Mcfarland MD.
[2017-08-09 13:33] VITALS: BP 141/86
== END 2017-08-09 13:32 | disposition home or self-care (01) ==
LOC: ED 21:46
DX: T18.9XXA Foreign body of alimentary tract, part unspecified, initial encounter (principal); F32.9 Major depressive disorder, single episode, unspecified; R45.851 Suicidal ideations; X83.8XXA Intentional self-harm by other specified means, initial encounter; Y92.9 Unspecified place or not applicable
CPT/HCPCS: 36415; 71045; 74018; 80053; 80175; 80307; 80320; 80329; 81003; 84443; 85025; 93005; 99284; A9270-GY; G0480

== ENCOUNTER 2017-08-17 15:01 | Emergency (ER) | payer MEDICARE ==
--- NOTE | 2017-08-17 15:49 | RAD ---
INDICATION: Swallowed batteries COMPARISON: August 09, 2017 TECHNIQUE: A single view of the abdomen is submitted. FINDINGS: Bones: There are no acute bony findings. Soft tissues: The soft tissues appear normal. The psoas margins are sharp. Bowel gas pattern: Normal Calcifications: There are no abnormal calcifications. Other: Currently there are no radiopaque foreign bodies IMPRESSION: THE FOREIGN BODIES HAVE PASSED
[2017-08-17 17:51] LABS: ABS Basophils 0.1 10^3/ul (0-0.2); ABS Eosinophils 0.7 10^3/ul (0-0.6); ABS Lymphocytes 2.3 10^3/ul (1.0-4.8); ABS Monocytes 0.5 10^3/ul (0-0.8); ABS Neutrophils 7.3 10^3/ul (1.5-7.7); ABS Nucleated RBC 0 10^3/ul; Hematocrit 39 % (35-47); Hemoglobin 12.4 g/dl (12.0-16.0); Lymphocyte % 21.6 % (25-47); Mean Corpuscular HGB Conc 32 g/dl (31-36); Mean Corpuscular Hemoglobin 26 pg (27-31); Mean Corpuscular Volume 82 fL (80-97); Mean Platelet Volume 9 um3 (7.4-10.4); Nucleated Red Blood Cells % 0; Platelet Count 271 10^3/ul (150-450); Red Blood Count 4.74 10^6/ul (4.0-5.4); Red Cell Distribution Width 18 % (10.5-15); White Blood Count 10.8 10^3/ul (3.5-10.8)
[2017-08-17 17:57] LABS: EGFR Non-African American 72.5 (>60)
[2017-08-17] MEDS: NS 0.9% 1000 ML* 2,000 ML IV ONE (18:28)
[2017-08-17] MEDS ORDERED: Insulin REGULAR(*) 1 UNITS UNIT IV PUSH ONE ×2 (19:11→21:52)
--- NOTE | 2017-08-17 19:13 | ED ---
Jordon Rosales Angela, scribed for Nathaniel Haro MD on 08/17/17 at 1525 . Psychiatric Complaint - HPI Summary HPI Summary: This pt is a 52 y/o female presenting to [facility] via EMS from Dr. Denson's office for SI. Pt swallowed 3 AAA batteries one week ago. She is concerned that they are stuck in her colon. Pt has not seen them in her stool yet. She additionally reports she tried to hurt herself by eating too much sugar. Pt states she has not been taken her medications correctly. PMHx includes diabetes, frequent visits to the ED for SI. - History Of Current Complaint Chief Complaint: EDMentalHealth Hx Obtained From: Patient Hx Last Menstrual Period: going through menopause Onset/Duration: Lasting Days, Still Present Timing: Days Severity Currently: Severe Character: Anxious Aggravating Factor(s): Nothing Alleviating Factor(s): Nothing Has Suicidal: Reports: Thoughts, Has Prior Attempt(s) - ingesting batteries, eating too much sugar.. Denies: With A Plan - Allergies/Home Medications Allergies/Adverse Reactions: Allergies Allergy/AdvReac Type Severity Reaction Status Date / Time Latex Allergy Severe Rash Verified 08/01/17 12:21 Sulfa Antibiotics Allergy Severe Hives Verified 08/01/17 12:21 Penicillins Allergy Intermediate Rash Verified 08/01/17 12:21 Nalbuphine Allergy Unknown Unknown Verified 08/01/17 12:21 Reaction Details Perphenazine Allergy Unknown Unknown Verified 08/01/17 12:21 Reaction Details Ciprofloxacin [From Cipro] AdvReac Severe Dizziness Verified 08/01/17 12:21 Tramadol AdvReac Severe Altered Verified 08/01/17 12:21 Mental Status [place] AdvReac Mild See Comment Verified 08/01/17 12:21 ENVIRONMENTAL Allergy Mild SINUS Uncoded 08/01/17 12:21 Home Medications: Home Medications Gabapentin CAP(*) [Neurontin 300 CAP(*)] 600 mg PO BEDTIME 08/17/17 [History Confirmed 08/17/17] Gabapentin CAP(*) [Neurontin 300 CAP(*)] 600 mg PO BID 08/17/17 [History Confirmed 08/17/17] Naproxen TAB* [Naprosyn 250 mg TAB*] 500 mg PO BID 08/17/17 [History Confirmed 08/17/17] Sitagliptin/Metform 50/500(NF) [Augmariamt 50/500 (NF)] 1 tab PO BID 08/17/17 [ History Confirmed 08/17/17] PMH/Surg Hx/FS Hx/Imm Hx Endocrine/Hematology History: Reports: Hx Diabetes, Hx Thyroid Disease, Other Endocrine/Hematological Disorders - Chronic pancreatitis Denies: Hx Anticoagulant Therapy Cardiovascular History: Reports: Hx Hypertension - NO MEDICATION FOR PER PATIENT , Other Cardiovascular Problems/Disorders - PER H&P- HX OF PSVT 04/2008 Denies: Hx Pacemaker/ICD Respiratory History: Reports: Hx Asthma - HX OF, Hx Seasonal Allergies, Hx Sleep Apnea - HX OF IN THE PAST Denies: Hx Chronic Bronchitis, Hx Chronic Obstructive Pulmonary Disease (COPD ), Hx Cystic Fibrosis, Hx Lung Cancer, Hx Pleural Effusion, Hx Pneumonia, Hx Pulmonary Edema, Hx Pulmonary Embolism, Other Respiratory Problems/Disorders GI History: Reports: Hx Gall Bladder Disease, Hx Gastroesophageal Reflux Disease - ON MEDICATION FOR, Hx Gastrointestinal Bleed, Hx Irritable Bowel, Other GI Disorders - HX OF pancreatitis- STATES LAST ABOUT 2 WEEKS AGO- STATES SLIGHT CASE Denies: Hx Ulcer History: Denies: Hx Dialysis, Hx Renal Disease Musculoskeletal History: Reports: Hx Arthritis, Hx Back Problems, Other Musculoskeletal History - GEN MUSCULOSKELETAL PAIN Denies: Hx Rheumatoid Arthritis, Hx Bursitis, Hx Congenital Bone Abnormalities, Hx Fibromyalgia, Hx Gout, Hx Orthopedic Injury, Hx Osteoporosis, Hx Scoliosis, Hx Tendonitis Sensory History: Reports: Hx Contacts or Glasses, Hx Vision Problem Denies: Hx Cataracts, Hx Eye Injury, Hx Eye Prosthesis, Hx Glaucoma, Hx Macular Degeneration, Hx Deafness, Hx Hearing Aid, Hx Hearing Problem, Other Sensory Impairments Opthamlomology History: Reports: Hx Contacts or Glasses, Hx Vision Problem Denies: Hx Cataracts, Hx Eye Injury, Hx Eye Prosthesis, Hx Glaucoma, Hx Macular Degeneration, Other Sensory Impairments Neurological History: Reports: Hx Developmental Delay - intellectual disability , Hx Seizures - STATES WITH ALLERGIC REACTION TO TRAMADOL Denies: Hx Dementia, Other Neuro Impairments/Disorders Psychiatric History: Reports: Hx Anxiety - ON MEDICATION FOR, Hx Depression - ON MEDICATION FOR, Hx Post Traumatic Stress Disorder, Hx Inpatient Treatment, Hx Community Mental Health Tx, Hx Bipolar Disorder - pt manic, Hx Suicide Attempt - past med overdoses, Hx of Violent Episodes Against Others, Other Psychiatric Issues/Disorders - PSYCHOSIS NOS, HX OF PTSD, SCHIZOAFFECTIVE DISORDER, BORDERLINE PERSONALITY Denies: Hx Attention Deficit Hyperactivity Disorder, Hx Eating Disorder, Hx Panic Disorder, Hx Schizophrenia, Hx Substance Abuse - Surgical History Surgery Procedure, Year, and Place: 2011-CATARACT EXTRACTION. GALLBLADDER REMOVED Hx Anesthesia Reactions: No - Immunization History Date of Tetanus Vaccine: Unknown Date of Influenza Vaccine: 04/2017 Infectious Disease History: No Infectious Disease History: Denies: Hx Clostridium Difficile, Hx Hepatitis, Hx Human Immunodeficiency Virus (HIV), Hx of Known/Suspected MRSA, Hx Shingles, Hx Tuberculosis, Hx Known/ Suspected VRE, Hx Known/Suspected VRSA, History Other Infectious Disease, Traveled Outside the [place] in Last 30 Days - Family History Known Family History: Positive: Other - Anxiety and depression, [place] - father Negative: Cardiac Disease, Hypertension, Diabetes Family History: Depression and anxiety - Social History Alcohol Use: None Hx Substance Use: Yes Substance Use Type: Reports: None Hx Tobacco Use: Yes Smoking Status (MU): Former Smoker Type: Cigarettes Amount Used/How Often: Quit for 2 years, but started again in March. USING THE NICOTINE Length of Time of Smoking/Using Tobacco: 2 year ago Have You Smoked in the Last Year: Yes - Patient has smoked within the last 30 days Review of Systems Negative: Fever, Chills Psychological: Other - SI thoughts Positive: Anxious. Negative: Other - SI plan All Other Systems Reviewed And Are Negative: Yes Physical Exam - Summary Physical Exam Summary: General: well-appearing, no pain distress Skin: warm, color reflects adequate perfusion, dry Head: normal Eyes: EOMI, JENNIFER ENT: normal Neck: supple, nontender Respiratory: CTA, breath sounds present Cardiovascular: RRR Abdomen: soft, nontender Bowel: present Musculoskeletal: normal, strength/ROM intact Neurological: normal, sensory/motor intact, A&O x3 Psychological: affect/mood appropriate Triage Information Reviewed: Yes Vital Signs On Initial Exam: Initial Vitals Temp Pulse Resp BP Pulse Ox 98.4 F 85 18 168/96 98 08/17/17 15:15 08/17/17 15:15 08/17/17 15:15 08/17/17 15:15 08/17/17 15:15 Vital Signs Reviewed: Yes Diagnostics - Vital Signs Vital Signs Temp Pulse Resp BP Pulse Ox 08/17/17 15:15 98.4 F 85 18 168/96 98 - Laboratory Lab Results: Lab Results 08/17/17 08/17/17 08/17/17 Range/Units 17:28 17:28 18:20 WBC 10.8 (3.5-10.8) 10^3/ul RBC 4.74 (4.0-5.4) 10^6/ul Hgb 12.4 (12.0-16.0) g/dl Hct 39 (35-47) % MCV 82 (80-97) fL MCH 26 L (27-31) pg MCHC 32 (31-36) g/dl RDW 18 H (10.5-15) % Plt Count 271 (150-450) 10^3/ul MPV 9 (7.4-10.4) um3 Neut % (Auto) 67.3 (38-83) % Lymph % (Auto) 21.6 L (25-47) % [place] % (Auto) 4.4 (1-9) % Eos % (Auto) 6.0 (0-6) % Baso % (Auto) 0.7 (0-2) % Absolute Neuts (auto) 7.3 (1.5-7.7) 10^3/ul Absolute Lymphs (auto) 2.3 (1.0-4.8) 10^3/ul Absolute Monos (auto) 0.5 (0-0.8) 10^3/ul Absolute Eos (auto) 0.7 H (0-0.6) 10^3/ul Absolute Basos (auto) 0.1 (0-0.2) 10^3/ul Absolute Nucleated RBC 0 10^3/ul Nucleated RBC % 0 VBG pH 7.36 (7.33-7.43) VBG pCO2 48 (41-51) mmHg VBG pO2 29 L (35-45) mmHg VBG HCO3 24.9 (24-28) mmol/L VBG O2 Saturation 59.9 L (70-80) % VBG Base Excess 1.1 (0-4) Sodium 133 (133-145) mmol/L Potassium 4.9 (3.5-5.0) mmol/L Chloride 101 (101-111) mmol/L Carbon Dioxide 25 (22-32) mmol/L Anion Gap 7 (2-11) mmol/L BUN 9 (6-24) mg/dL Creatinine 0.83 (0.51-0.95) mg/dL Est GFR ( Amer) 93.2 (>60) Est GFR (Non-Af Amer) 72.5 (>60) BUN/Creatinine Ratio 10.8 (8-20) Glucose 543 H* (70-100) mg/dL Calcium 8.7 (8.6-10.3) mg/dL Total Bilirubin 0.20 (0.2-1.0) mg/dL AST 21 (13-39) U/L ALT 20 (7-52) U/L Alkaline Phosphatase 137 H (34-104) U/L Total Protein 7.5 (6.4-8.9) g/dL Albumin 3.7 (3.2-5.2) g/dL Globulin 3.8 (2-4) g/dL Albumin/Globulin Ratio 1.0 (1-3) TSH 2.76 (0.34-5.60) mcIU/mL Salicylates < 2.50 (<30) mg/dL Acetaminophen < 15 mcg/mL Serum Alcohol < 10 (<10) mg/dL Result Diagrams: 08/17/17 17:28 08/17/17 17:28 Lab Statement: Any lab studies that have been ordered have been reviewed, and results considered in the medical decision making process. - Radiology Abdomen XR Xray Interpretation: No Acute Changes - IMPRESSION: The foreign bodies have passed. Dr. Haro has reviewed this radiology report. Radiology Interpretation Completed By: Radiologist Re-Evaluation - Re-Evaluation First Eval Re-Evaluation Time: 17:55 Comment: I reviewed abd XR with the pt. Course/Dx - Course Course Of Treatment: Medications reviewed. Allergies noted. Elevated blood pressure noted. Abd XR shows the foreign bodies have passed. Glucose is 543. Pt will be signed out to the next ED attending, pending disposition, awaiting MHE. DISPOSITION PENDING AT SHIFT CHANGE. - Differential Dx/Clinical Impression Provider Diagnosis: Mental health problem, Hyperglycemia Discharge - Discharge Plan Condition: Stable Disposition: OTHER Discharge Disposition Comment: signed out to the next ED attending, awaiting MHE. Referrals: Chapo Aguila MD [Primary Care Provider] - The documentation as recorded by the Jordon roth Angela accurately reflects the service I personally performed and the decisions made by me, Nathaniel Haro MD.
[2017-08-17] MEDS ORDERED: Acetaminophen TAB* 325 MG PO ONE (20:34)
[2017-08-17] MEDS ORDERED: Ondansetron INJ* 2 MG/ML VIAL IV ONE (20:34)
[2017-08-17 23:04] LABS: Urine Appearance Cloudy; Urine Blood Negative (Negative); Urine Color Yellow; Urine Ketones Negative (Negative); Urine Protein Negative (Negative); Urine Specific Gravity 1.016 (1.010-1.030); Urine Urobilinogen Negative (Negative)
[2017-08-18 09:39] VITALS: BP 151/96
== END 2017-08-18 09:36 | disposition home or self-care (01) ==
LOC: ED 15:01
DX: F48.9 Nonpsychotic mental disorder, unspecified (principal); R73.9 Hyperglycemia, unspecified; Z87.891 Personal history of nicotine dependence; Z88.3 Allergy status to other anti-infective agents; Z88.5 Allergy status to narcotic agent; Z88.0 Allergy status to penicillin; Z88.8 Allergy status to other drugs, medicaments and biological substances
CPT/HCPCS: 36415; 74018; 80053; 80175; 80307; 80320; 80329; 81003; 82803; 84443; 85025; 96361; 96372; 96374; 99283; A9270-GY; G0480; J2405

== ENCOUNTER 2017-08-22 20:04 | Emergency (ER) | payer MEDICARE ==
[2017-08-22] MEDS ORDERED: NS 0.9% 1000 ML* 2,000 ML IV ONE (20:20)
[2017-08-22] MEDS ORDERED: Ketorolac INJ* 30 MG/ML 1 ML VIAL IV PUSH ONE (21:17)
[2017-08-22 21:27] LABS: ABS Basophils 0.1 10^3/ul (0-0.2); ABS Eosinophils 0.9 10^3/ul (0-0.6); ABS Lymphocytes 2.3 10^3/ul (1.0-4.8); ABS Monocytes 0.5 10^3/ul (0-0.8); ABS Neutrophils 5.2 10^3/ul (1.5-7.7); ABS Nucleated RBC 0 10^3/ul; Eosinophil % 10.1 % (0-6); Hematocrit 34 % (35-47); Hemoglobin 11.2 g/dl (12.0-16.0); Lymphocyte % 25.2 % (25-47); Mean Corpuscular HGB Conc 33 g/dl (31-36); Mean Corpuscular Hemoglobin 27 pg (27-31); Mean Corpuscular Volume 82 fL (80-97); Mean Platelet Volume 9 um3 (7.4-10.4); Nucleated Red Blood Cells % 0.1; Platelet Count 209 10^3/ul (150-450); Red Blood Count 4.19 10^6/ul (4.0-5.4); Red Cell Distribution Width 18 % (10.5-15); White Blood Count 8.9 10^3/ul (3.5-10.8)
[2017-08-22 21:40] LABS: Urine Appearance Cloudy; Urine Blood 1+ (Negative); Urine Color Yellow; Urine Ketones Negative (Negative); Urine Protein Negative (Negative); Urine Specific Gravity 1.023 (1.010-1.030); Urine Urobilinogen Negative (Negative)
[2017-08-22 21:42] LABS: INR 0.91 (0.77-1.02)
[2017-08-22 21:46] LABS: EGFR Non-African American 65.2 (>60)
[2017-08-22] MEDS ORDERED: Insulin REGULAR(*) 1 UNITS UNIT IV PUSH ONE (21:53)
--- NOTE | 2017-08-22 21:53 | RAD ---
Indication: Diabetes. Single frontal view of the chest performed at 2035 hours was reviewed. Comparison is made with previous exam dated August 08, 2017. No mediastinal shift is noted. Heart is of normal size and configuration. Lung mazariegos appear clear. IMPRESSION: NO ACTIVE CARDIOPULMONARY DISEASE IS NOTED.
[2017-08-22] MEDS ORDERED: Clindamycin CAP* 150 MG PO ONE (21:55)
--- NOTE | 2017-08-22 22:33 | ED ---
Zhanna Rosales Nilda, scribed for Violeta Yusuf MD on 08/22/17 at 2156 . Complex/Multi-Sys Presentation - HPI Summary HPI Summary: This patient is a 52 year old F presenting to [facility] with a chief complaint of sudden onset, severe dental pain (left lower 1st pre-molar, throbbing) for the past 3 hours. The patient rates the pain 8/10 in severity. Symptoms aggravated by nothing and alleviated by Naproxen taken [employer] at 1900. Patient reports elevated blood glucose for the past week and urinary frequency, but denies current SI. On 08/09/17 pt was here for swallowing batteries and was D/C home. Pt states batteries passed 08/17/17. Glucose at home registered "high", and pt took extra insulin. Glucose enroute also registered "high". - History Of Current Complaint Chief Complaint: EDDiabeticProb Time Seen by Provider: 08/22/17 20:18 Hx Obtained From: Patient Onset/Duration: Sudden Onset, Still Present Timing: Constant Severity Currently: Severe - 8/10 Location: Pain At: - left lower 1st pre-molar Character: Throbbing Aggravating Factor(s): nothing Alleviating Factor(s): Naproxen [employer], additional novalog insulin 10 units and 12 units prior to admission. Associated Signs And Symptoms: Positive: Other - severe dental pain, elevated blood glucose for the past week, and urinary frequency, but denies current SI.. Negative: Fever Related History: Other - swallowed batteries 08/09/17, batteries passed. - Allergies/Home Medications Allergies/Adverse Reactions: Allergies Allergy/AdvReac Type Severity Reaction Status Date / Time Latex Allergy Severe Rash Verified 08/01/17 12:21 Sulfa Antibiotics Allergy Severe Hives Verified 08/01/17 12:21 Penicillins Allergy Intermediate Rash Verified 08/01/17 12:21 Nalbuphine Allergy Unknown Unknown Verified 08/01/17 12:21 Reaction Details Perphenazine Allergy Unknown Unknown Verified 08/01/17 12:21 Reaction Details Ciprofloxacin [From Cipro] AdvReac Severe Dizziness Verified 08/01/17 12:21 Tramadol AdvReac Severe Altered Verified 08/01/17 12:21 Mental Status [place] AdvReac Mild See Comment Verified 08/01/17 12:21 ENVIRONMENTAL Allergy Mild SINUS Uncoded 08/01/17 12:21 PMH/Surg Hx/FS Hx/Imm Hx Endocrine/Hematology History: Reports: Hx Diabetes, Hx Thyroid Disease, Other Endocrine/Hematological Disorders - Chronic pancreatitis Denies: Hx Anticoagulant Therapy Cardiovascular History: Reports: Hx Hypertension - NO MEDICATION FOR PER PATIENT , Other Cardiovascular Problems/Disorders - HX OF PSVT 04/2008 Denies: Hx Pacemaker/ICD Respiratory History: Reports: Hx Asthma, Hx Seasonal Allergies, Hx Sleep Apnea - HX OF IN THE PAST Denies: Hx Chronic Bronchitis, Hx Chronic Obstructive Pulmonary Disease (COPD ), Hx Cystic Fibrosis, Hx Lung Cancer, Hx Pleural Effusion, Hx Pneumonia, Hx Pulmonary Edema, Hx Pulmonary Embolism, Other Respiratory Problems/Disorders GI History: Reports: Hx Gall Bladder Disease, Hx Gastroesophageal Reflux Disease - ON MEDICATION FOR, Hx Gastrointestinal Bleed, Hx Irritable Bowel, Other GI Disorders - HX OF pancreatitis- STATES LAST ABOUT 2 WEEKS AGO- STATES SLIGHT CASE Denies: Hx Ulcer History: Denies: Hx Dialysis, Hx Renal Disease Musculoskeletal History: Reports: Hx Arthritis, Hx Back Problems, Other Musculoskeletal History - GEN MUSCULOSKELETAL PAIN Denies: Hx Rheumatoid Arthritis, Hx Bursitis, Hx Congenital Bone Abnormalities, Hx Fibromyalgia, Hx Gout, Hx Orthopedic Injury, Hx Osteoporosis, Hx Scoliosis, Hx Tendonitis Sensory History: Reports: Hx Contacts or Glasses, Hx Vision Problem Denies: Hx Cataracts, Hx Eye Injury, Hx Eye Prosthesis, Hx Glaucoma, Hx Macular Degeneration, Hx Deafness, Hx Hearing Aid, Hx Hearing Problem, Other Sensory Impairments Opthamlomology History: Reports: Hx Contacts or Glasses, Hx Vision Problem Denies: Hx Cataracts, Hx Eye Injury, Hx Eye Prosthesis, Hx Glaucoma, Hx Macular Degeneration, Other Sensory Impairments Neurological History: Reports: Hx Developmental Delay - intellectual disability , Hx Seizures - STATES WITH ALLERGIC REACTION TO TRAMADOL Denies: Hx Dementia, Other Neuro Impairments/Disorders Psychiatric History: Reports: Hx Anxiety - ON MEDICATION FOR, Hx Depression - ON MEDICATION FOR, Hx Post Traumatic Stress Disorder, Hx Inpatient Treatment, Hx Community Mental Health Tx, Hx Bipolar Disorder - pt manic, Hx Suicide Attempt - past med overdoses, Hx of Violent Episodes Against Others, Other Psychiatric Issues/Disorders - PSYCHOSIS NOS, HX OF PTSD, SCHIZOAFFECTIVE DISORDER, BORDERLINE PERSONALITY Denies: Hx Attention Deficit Hyperactivity Disorder, Hx Eating Disorder, Hx Panic Disorder, Hx Schizophrenia, Hx Substance Abuse - Surgical History Surgery Procedure, Year, and Place: 2011-CATARACT EXTRACTION. GALLBLADDER REMOVED Hx Anesthesia Reactions: No - Immunization History Date of Tetanus Vaccine: Unknown Date of Influenza Vaccine: 04/2017 Infectious Disease History: No Infectious Disease History: Denies: Hx Clostridium Difficile, Hx Hepatitis, Hx Human Immunodeficiency Virus (HIV), Hx of Known/Suspected MRSA, Hx Shingles, Hx Tuberculosis, Hx Known/ Suspected VRE, Hx Known/Suspected VRSA, History Other Infectious Disease, Traveled Outside the [place] in Last 30 Days - Family History Known Family History: Positive: Other - Anxiety and depression, [place] - father Negative: Cardiac Disease, Hypertension, Diabetes Family History: Depression and anxiety - Social History Lives: With Family Alcohol Use: None Hx Substance Use: Yes Substance Use Type: Reports: None Hx Tobacco Use: Yes Smoking Status (MU): Former Smoker Type: Cigarettes Amount Used/How Often: Quit for 2 years, but started again in March. USING THE NICOTINE Length of Time of Smoking/Using Tobacco: 2 year ago Have You Smoked in the Last Year: Yes - Patient has smoked within the last 30 days Review of Systems Negative: Fever, Fatigue Negative: Blurred Vision, Diplopia Positive: Dental Pain Cardiovascular: Negative Respiratory: Negative Positive: Other - elevated blood glucose Positive: frequency Skin: Negative Neurological: Negative Psychological: Other - negative current SI All Other Systems Reviewed And Are Negative: Yes Physical Exam - Summary Physical Exam Summary: Appearance: Ill-appearing, moderate pain distress, Overweight Skin: Warm, color reflects adequate perfusion Head: Normal Head/Face inspection Dental: Multiple missing teeth and poor dentition. First pre-molar on left is tender to percussion; no redness, swelling of gum, or drainage. Eyes: Conjunctiva clear ENT: Normal inspection Neck: Supple, no nodes, no JVD. Respiratory: Lungs clear, Normal breath sounds, no respiratory distress Cardio: RRR, No murmur, pulses normal, brisk capillary refill Abdomen: soft, nontender Bowel sounds: present Musculoskeletal: Strength Intact/ ROM intact. No calf tenderness. No edema. Neuro: Alert, muscle tone normal, facial symmetry, speech normal, sensory/motor intact Psychological: Normal Triage Information Reviewed: Yes Vital Signs On Initial Exam: Initial Vitals Temp Pulse Resp BP Pulse Ox 99.2 F 84 20 128/73 94 08/22/17 20:06 08/22/17 20:06 08/22/17 20:06 08/22/17 20:06 08/22/17 20:06 Vital Signs Reviewed: Yes Diagnostics - Vital Signs Vital Signs Temp Pulse Resp BP Pulse Ox 08/22/17 21:30 71 129/72 96 08/22/17 21:23 148/75 08/22/17 21:00 76 95 08/22/17 20:57 72 149/79 96 08/22/17 20:30 77 145/66 96 08/22/17 20:28 76 97 08/22/17 20:26 149/84 08/22/17 20:06 99.2 F 84 20 128/73 94 - Laboratory Lab Results: Lab Results 08/22/17 08/22/17 08/22/17 Range/Units 21:10 21:10 21:10 WBC 8.9 (3.5-10.8) 10^3/ul RBC 4.19 (4.0-5.4) 10^6/ul Hgb 11.2 L (12.0-16.0) g/dl Hct 34 L (35-47) % MCV 82 (80-97) fL MCH 27 (27-31) pg MCHC 33 (31-36) g/dl RDW 18 H (10.5-15) % Plt Count 209 (150-450) 10^3/ul MPV 9 (7.4-10.4) um3 Neut % (Auto) 58.2 (38-83) % Lymph % (Auto) 25.2 (25-47) % [place] % (Auto) 5.7 (1-9) % Eos % (Auto) 10.1 H (0-6) % Baso % (Auto) 0.8 (0-2) % Absolute Neuts (auto) 5.2 (1.5-7.7) 10^3/ul Absolute Lymphs (auto) 2.3 (1.0-4.8) 10^3/ul Absolute Monos (auto) 0.5 (0-0.8) 10^3/ul Absolute Eos (auto) 0.9 H (0-0.6) 10^3/ul Absolute Basos (auto) 0.1 (0-0.2) 10^3/ul Absolute Nucleated RBC 0 10^3/ul Nucleated RBC % 0.1 INR (Anticoag Therapy) 0.91 (0.77-1.02) VBG pH (7.33-7.43) VBG pCO2 (41-51) mmHg VBG pO2 (35-45) mmHg VBG HCO3 (24-28) mmol/L VBG O2 Saturation (70-80) % VBG Base Excess (0-4) Lactic Acid 1.3 (0.5-2.0) mmol/L Urine Color Urine Appearance Urine pH (5-9) Ur Specific [place] (1.010-1.030) Urine Protein (Negative) Urine Ketones (Negative) Urine Blood (Negative) Urine Nitrate (Negative) Urine Bilirubin (Negative) Urine Urobilinogen (Negative) Ur Leukocyte Esterase (Negative) Urine WBC (Auto) (Absent) Urine RBC (Auto) (Absent) Ur Squamous Epith Cells (Absent) Urine Bacteria (Absent) Urine Glucose (Negative) 08/22/17 08/22/17 Range/Units 21:10 21:21 WBC (3.5-10.8) 10^3/ul RBC (4.0-5.4) 10^6/ul Hgb (12.0-16.0) g/dl Hct (35-47) % MCV (80-97) fL MCH (27-31) pg MCHC (31-36) g/dl RDW (10.5-15) % Plt Count (150-450) 10^3/ul MPV (7.4-10.4) um3 Neut % (Auto) (38-83) % Lymph % (Auto) (25-47) % [place] % (Auto) (1-9) % Eos % (Auto) (0-6) % Baso % (Auto) (0-2) % Absolute Neuts (auto) (1.5-7.7) 10^3/ul Absolute Lymphs (auto) (1.0-4.8) 10^3/ul Absolute Monos (auto) (0-0.8) 10^3/ul Absolute Eos (auto) (0-0.6) 10^3/ul Absolute Basos (auto) (0-0.2) 10^3/ul Absolute Nucleated RBC 10^3/ul Nucleated RBC % INR (Anticoag Therapy) (0.77-1.02) VBG pH 7.42 (7.33-7.43) VBG pCO2 49 (41-51) mmHg VBG pO2 36 (35-45) mmHg VBG HCO3 29.4 H (24-28) mmol/L VBG O2 Saturation 78.1 (70-80) % VBG Base Excess 6.3 H (0-4) Lactic Acid (0.5-2.0) mmol/L Urine Color Yellow Urine Appearance Cloudy Urine pH 6.0 (5-9) Ur Specific [place] 1.023 (1.010-1.030) Urine Protein Negative (Negative) Urine Ketones Negative (Negative) Urine Blood 1+ H (Negative) Urine Nitrate Negative (Negative) Urine Bilirubin Negative (Negative) Urine Urobilinogen Negative (Negative) Ur Leukocyte Esterase Trace H (Negative) Urine WBC (Auto) 1+(6-10/hpf) H (Absent) Urine RBC (Auto) 3+(>10/hpf) H (Absent) Ur Squamous Epith Cells Present H (Absent) Urine Bacteria 2+ H (Absent) Urine Glucose 3+(>=500 mg/dl) H (Negative) Result Diagrams: 08/22/17 21:10 08/22/17 21:10 Lab Statement: Any lab studies that have been ordered have been reviewed, and results considered in the medical decision making process. - Radiology CXR Radiology Interpretation Completed By: Radiologist - CXR, per radiologist, reveals no active cardiopulmonary disease. Dr. Yusuf has reviewed this radiology report. - EKG 2039 Cardiac Rate: NL EKG Rhythm: Sinus Rhythm - [address] Segment: Non-Specific Ectopy: None EKG Interpretation: nl AVIVCT, nl QTc, [place] 10 EKG Comparison: No Significant Change - compared to 08/08/17 Re-Evaluation - Re-Evaluation First Eval Re-Evaluation Time: 22:30 - pain is improved. insulin admininistered, fluids running. Pt agrees with DC once glucose improves. Change: Improved Complex Multi-Symp Course/Dx Course Of Treatment: Pt is a 52 y/o F presenting to [facility] c/o dental pain (left lower 1st molar, past 3 hours) and elevated blood glucose (past week). Pending labs, EKG, and CXR. An EKG reveals NSR, 71 bpm, non specific ST, no ectopy, nl AVIVCT, nl QTc, [place] 10, no significant change when compared to 08/08/17. CXR, per radiologist, reveals no active cardiopulmonary disease. Dr. Yusuf has reviewed this radiology report. Pt medications reviewed this visit. Allergies Noted. Pt was given Toradol for pain 30 mg IV. She was treated with 15 Units of regular insulin IV and Clindamycin 300mg oral for dental infection. Anticipate D/C. Pt is stable and will be s/o to Dr. Mcdowell 08/22/17 at 2230, pending dispo, awaiting re-check glucose in 1 hour. Dx: hyperglycemia in Diabetic and dental pain. Pt understands and is agreeable with this plan. - Diagnoses Differential Diagnoses/HQI/PQRI: Metabolic Abnormality, Urinary Tract Infection , Other - dental infection Provider Diagnoses: Diabetes mellitus with hyperglycemia, Pain, dental Discharge - Discharge Plan Condition: Stable Disposition: OTHER Discharge Disposition Comment: s/o to Dr. Mcdowell, pending dispo, awaiting re- check glucose in 1 hour Referrals: Chapo Aguila MD [Primary Care Provider] - Additional Instructions: We gave you your first dose of macrodantin 100mg orally to treat a presumed UTI based on the urinalysis results. The UTI may be the cause of your altered mental status. Your blood work, EKG and CXR did not show any abnormalities to account for altered mental status. You do not meet admission criteria for mental health at this time. Return to the ER if you have new or worsening symptoms. The documentation as recorded by the Zhanna roth Nilda accurately reflects the service I personally performed and the decisions made by me, Violeta Yusuf MD.
[2017-08-23] MEDS ORDERED: Insulin REGULAR(*) 1 UNITS UNIT IV PUSH ONE (00:03)
[2017-08-23] MEDS ORDERED: NS 0.9% 1000 ML* 1,000 ML IV ONE (00:04)
--- NOTE | 2017-08-23 01:18 | PN ---
Mayra Rosales Edward, scribed for Sendy Mcdowell MD on 08/23/17 at 0112 . Progress Note - Progress Note Date of Service: 08/23/17 Note: Pt signed out by Dr. Yusuf. Repeat blood glucose 224. Pt will be d/c home with f/u with PCP. Dx: hyperglycemia The documentation as recorded by the Mayra roth Edward accurately reflects the service I personally performed and the decisions made by , Sendy Mcdowell MD.
[2017-08-23 01:29] VITALS: BP 129/75
== END 2017-08-23 01:42 ==
LOC: ED 20:04
DX: E11.65 Type 2 diabetes mellitus with hyperglycemia (principal); K08.89 Other specified disorders of teeth and supporting structures
CPT/HCPCS: 36415; 71045; 80053; 81003; 81015; 82550; 82803; 82947; 83605; 83735; 84484; 85025; 85610; 86140; 87086; 93005; 99284; A9270-GY; J1885

== ENCOUNTER 2017-08-25 12:26 | Emergency (ER) | payer MEDICARE ==
[2017-08-25] MEDS ORDERED: Insulin REGULAR(*) 1 UNITS UNIT IV ONE (12:57)
[2017-08-25] MEDS ORDERED: NS 0.9% 1000 ML* 1,000 ML IV ONE (12:57)
[2017-08-25 13:39] LABS: ABS Basophils 0 10^3/ul (0-0.2); ABS Eosinophils 0.9 10^3/ul (0-0.6); ABS Monocytes 0.4 10^3/ul (0-0.8); ABS Neutrophils 5.5 10^3/ul (1.5-7.7); ABS Nucleated RBC 0 10^3/ul; Hematocrit 35 % (35-47); Hemoglobin 11.5 g/dl (12.0-16.0); Lymphocyte % 22.3 % (25-47); Mean Corpuscular HGB Conc 33 g/dl (31-36); Mean Corpuscular Hemoglobin 27 pg (27-31); Mean Corpuscular Volume 81 fL (80-97); Mean Platelet Volume 9 um3 (7.4-10.4); Nucleated Red Blood Cells % 0; Platelet Count 186 10^3/ul (150-450); Red Blood Count 4.33 10^6/ul (4.0-5.4); Red Cell Distribution Width 18 % (10.5-15); White Blood Count 8.9 10^3/ul (3.5-10.8)
[2017-08-25 13:48] LABS: EGFR Non-African American 68.6 (>60)
[2017-08-25] MEDS ORDERED: Ketorolac INJ* 30 MG/ML 1 ML VIAL IV PUSH ONE (13:53)
[2017-08-25] MEDS ORDERED: Insulin REGULAR(*) 1 UNITS UNIT IV PUSH ONE ×2 (14:05→15:21)
[2017-08-25 15:19] LABS: Urine Appearance Clear; Urine Blood Negative (Negative); Urine Color Yellow; Urine Ketones Negative (Negative); Urine Protein Negative (Negative); Urine Urobilinogen Negative (Negative)
[2017-08-25 16:55] VITALS: BP 152/80
--- NOTE | 2017-08-26 08:21 | ED ---
Nitish Rosales Gabriel, scribed for Maycol Al MD on 08/25/17 at 1300 . Complex/Multi-Sys Presentation - HPI Summary HPI Summary: This patient is a 52 year old F BIBA to [facility] with a chief complaint of dental pain. The patient rates the pain 5/10 in severity. Patient reports increased urination and tooth pain. Patient denies CP, n/v/d, SOB, and ABD pain. Patient states she is very sick and had a blood glucose of 547 this morning. EMS reports her blood glucose being 454. She states she has a UTI and is taking Cephalexin. - History Of Current Complaint Chief Complaint: EDDentalPain Time Seen by Provider: 08/25/17 12:47 Hx Obtained From: Patient Onset/Duration: Still Present Timing: Constant Severity Currently: Moderate Severity Initially: Moderate Location: Pain At: - teeth Associated Signs And Symptoms: Positive: Other - increased urination and tooth pain - Allergies/Home Medications Allergies/Adverse Reactions: Allergies Allergy/AdvReac Type Severity Reaction Status Date / Time Latex Allergy Severe Rash Verified 08/01/17 12:21 Sulfa Antibiotics Allergy Severe Hives Verified 08/01/17 12:21 Penicillins Allergy Intermediate Rash Verified 08/01/17 12:21 Nalbuphine Allergy Unknown Unknown Verified 08/01/17 12:21 Reaction Details Perphenazine Allergy Unknown Unknown Verified 08/01/17 12:21 Reaction Details Ciprofloxacin [From Cipro] AdvReac Severe Dizziness Verified 08/01/17 12:21 Tramadol AdvReac Severe Altered Verified 08/01/17 12:21 Mental Status [place] AdvReac Mild See Comment Verified 08/01/17 12:21 ENVIRONMENTAL Allergy Mild SINUS Uncoded 08/01/17 12:21 Home Medications: Home Medications Insulin GLARGINE(*) [Lantus(*)] 30 units SUBCUT QAM 08/25/17 [History Confirmed 08/25/17] PMH/Surg Hx/FS Hx/Imm Hx Endocrine/Hematology History: Reports: Hx Diabetes, Hx Thyroid Disease, Other Endocrine/Hematological Disorders - Chronic pancreatitis Denies: Hx Anticoagulant Therapy Cardiovascular History: Reports: Hx Hypertension - NO MEDICATION FOR PER PATIENT , Other Cardiovascular Problems/Disorders - HX OF PSVT 04/2008 Denies: Hx Pacemaker/ICD Respiratory History: Reports: Hx Asthma, Hx Seasonal Allergies, Hx Sleep Apnea - HX OF IN THE PAST Denies: Hx Chronic Bronchitis, Hx Chronic Obstructive Pulmonary Disease (COPD ), Hx Cystic Fibrosis, Hx Lung Cancer, Hx Pleural Effusion, Hx Pneumonia, Hx Pulmonary Edema, Hx Pulmonary Embolism, Other Respiratory Problems/Disorders GI History: Reports: Hx Gall Bladder Disease, Hx Gastroesophageal Reflux Disease - ON MEDICATION FOR, Hx Gastrointestinal Bleed, Hx Irritable Bowel, Other GI Disorders - HX OF pancreatitis- STATES LAST ABOUT 2 WEEKS AGO- STATES SLIGHT CASE Denies: Hx Ulcer History: Denies: Hx Dialysis, Hx Renal Disease Musculoskeletal History: Reports: Hx Arthritis, Hx Back Problems, Other Musculoskeletal History - GEN MUSCULOSKELETAL PAIN Denies: Hx Rheumatoid Arthritis, Hx Bursitis, Hx Congenital Bone Abnormalities, Hx Fibromyalgia, Hx Gout, Hx Orthopedic Injury, Hx Osteoporosis, Hx Scoliosis, Hx Tendonitis Sensory History: Reports: Hx Contacts or Glasses, Hx Vision Problem Denies: Hx Cataracts, Hx Eye Injury, Hx Eye Prosthesis, Hx Glaucoma, Hx Macular Degeneration, Hx Deafness, Hx Hearing Aid, Hx Hearing Problem, Other Sensory Impairments Opthamlomology History: Reports: Hx Contacts or Glasses, Hx Vision Problem Denies: Hx Cataracts, Hx Eye Injury, Hx Eye Prosthesis, Hx Glaucoma, Hx Macular Degeneration, Other Sensory Impairments Neurological History: Reports: Hx Developmental Delay - intellectual disability , Hx Seizures - STATES WITH ALLERGIC REACTION TO TRAMADOL Denies: Hx Dementia, Other Neuro Impairments/Disorders Psychiatric History: Reports: Hx Anxiety - ON MEDICATION FOR, Hx Depression - ON MEDICATION FOR, Hx Post Traumatic Stress Disorder, Hx Inpatient Treatment, Hx Community Mental Health Tx, Hx Bipolar Disorder - pt manic, Hx Suicide Attempt - past med overdoses, Hx of Violent Episodes Against Others, Other Psychiatric Issues/Disorders - PSYCHOSIS NOS, HX OF PTSD, SCHIZOAFFECTIVE DISORDER, BORDERLINE PERSONALITY Denies: Hx Attention Deficit Hyperactivity Disorder, Hx Eating Disorder, Hx Panic Disorder, Hx Schizophrenia, Hx Substance Abuse - Surgical History Surgery Procedure, Year, and Place: 2011-CATARACT EXTRACTION. GALLBLADDER REMOVED Hx Anesthesia Reactions: No - Immunization History Date of Tetanus Vaccine: Unknown Date of Influenza Vaccine: 04/2017 Infectious Disease History: No Infectious Disease History: Denies: Hx Clostridium Difficile, Hx Hepatitis, Hx Human Immunodeficiency Virus (HIV), Hx of Known/Suspected MRSA, Hx Shingles, Hx Tuberculosis, Hx Known/ Suspected VRE, Hx Known/Suspected VRSA, History Other Infectious Disease, Traveled Outside the [place] in Last 30 Days - Family History Known Family History: Positive: Other - Anxiety and depression, [place] - father Negative: Cardiac Disease, Hypertension, Diabetes Family History: Depression and anxiety - Social History Alcohol Use: None Hx Substance Use: Yes Substance Use Type: Reports: None Hx Tobacco Use: Yes Smoking Status (MU): Former Smoker Type: Cigarettes Amount Used/How Often: Quit for 2 years, but started again in March. USING THE NICOTINE Length of Time of Smoking/Using Tobacco: 2 year ago Have You Smoked in the Last Year: Yes - Patient has smoked within the last 30 days Review of Systems Positive: Dental Pain Negative: Chest Pain Negative: Shortness Of Breath Negative: Abdominal Pain, Vomiting, Diarrhea, Nausea Positive: frequency - increased All Other Systems Reviewed And Are Negative: Yes Physical Exam - Summary Physical Exam Summary: VITAL SIGNS: Reviewed. GENERAL: Patient is an obese female who is lying comfortable in the stretcher. Patient is not in any acute respiratory distress. HEAD AND FACE: No signs of trauma. No ecchymosis, hematomas or skull depressions. No sinus tenderness. EYES: PERRLA, EOMI x 2, No injected conjunctiva, no nystagmus. EARS: Hearing grossly intact. Ear canals and tympanic membranes are within normal limits. MOUTH: poor oral hygiene NECK: Supple, trachea is midline, no adenopathy, no JVD, no carotid bruit, no c- spine tenderness, neck with full ROM. CHEST: Symmetric, no tenderness at palpation LUNGS: Clear to auscultation bilaterally. No wheezing or crackles. CVS: Regular rate and rhythm, S1 and S2 present, no murmurs or gallops appreciated. ABDOMEN: Soft, non-tender. No signs of distention. No rebound no guarding, and no masses palpated. Bowel sounds are normal. EXTREMITIES: FROM in all major joints, no edema, no cyanosis or clubbing. NEURO: Alert and oriented x 3. No acute neurological deficits. Speech is normal and follows commands. SKIN: Dry and warm Triage Information Reviewed: Yes Vital Signs On Initial Exam: Initial Vitals Temp Pulse Resp BP Pulse Ox 98.0 F 74 18 143/88 96 08/25/17 12:49 08/25/17 12:49 08/25/17 12:49 08/25/17 12:49 08/25/17 12:49 Vital Signs Reviewed: Yes Diagnostics - Vital Signs Vital Signs Temp Pulse Resp BP Pulse Ox 08/25/17 12:49 98.0 F 74 18 143/88 96 - Laboratory Lab Results: Lab Results 08/25/17 08/25/17 08/25/17 Range/Units 13:20 13:20 13:30 WBC 8.9 (3.5-10.8) 10^3/ul RBC 4.33 (4.0-5.4) 10^6/ul Hgb 11.5 L (12.0-16.0) g/dl Hct 35 (35-47) % MCV 81 (80-97) fL MCH 27 (27-31) pg MCHC 33 (31-36) g/dl RDW 18 H (10.5-15) % Plt Count 186 (150-450) 10^3/ul MPV 9 (7.4-10.4) um3 Neut % (Auto) 62.2 (38-83) % Lymph % (Auto) 22.3 L (25-47) % [place] % (Auto) 5.0 (1-9) % Eos % (Auto) 10.0 H (0-6) % Baso % (Auto) 0.5 (0-2) % Absolute Neuts (auto) 5.5 (1.5-7.7) 10^3/ul Absolute Lymphs (auto) 2.0 (1.0-4.8) 10^3/ul Absolute Monos (auto) 0.4 (0-0.8) 10^3/ul Absolute Eos (auto) 0.9 H (0-0.6) 10^3/ul Absolute Basos (auto) 0 (0-0.2) 10^3/ul Absolute Nucleated RBC 0 10^3/ul Nucleated RBC % 0 VBG pH 7.48 H (7.33-7.43) VBG pCO2 31 L (41-51) mmHg VBG pO2 98 H (35-45) mmHg VBG HCO3 25.0 (24-28) mmol/L VBG O2 Saturation 95.3 H (70-80) % VBG Base Excess 0.1 (0-4) Sodium 134 (133-145) mmol/L Potassium 4.8 (3.5-5.0) mmol/L Chloride 101 (101-111) mmol/L Carbon Dioxide 29 (22-32) mmol/L Anion Gap 4 (2-11) mmol/L BUN 13 (6-24) mg/dL Creatinine 0.87 (0.51-0.95) mg/dL Est GFR ( Amer) 88.3 (>60) Est GFR (Non-Af Amer) 68.6 (>60) BUN/Creatinine Ratio 14.9 (8-20) Glucose 366 H (70-100) mg/dL POC Glucose (mg/dL) (70-100) mg/dL Calcium 8.9 (8.6-10.3) mg/dL Total Bilirubin 0.20 (0.2-1.0) mg/dL AST 22 (13-39) U/L ALT 19 (7-52) U/L Alkaline Phosphatase 108 H (34-104) U/L C-Reactive Protein 3.27 (< 5.00) mg/L Total Protein 6.6 (6.4-8.9) g/dL Albumin 3.4 (3.2-5.2) g/dL Globulin 3.2 (2-4) g/dL Albumin/Globulin Ratio 1.1 (1-3) Urine Color Urine Appearance Urine pH (5-9) Ur Specific [place] (1.010-1.030) Urine Protein (Negative) Urine Ketones (Negative) Urine Blood (Negative) Urine Nitrate (Negative) Urine Bilirubin (Negative) Urine Urobilinogen (Negative) Ur Leukocyte Esterase (Negative) Urine Glucose (Negative) 08/25/17 08/25/17 08/25/17 Range/Units 15:03 15:07 16:29 WBC (3.5-10.8) 10^3/ul RBC (4.0-5.4) 10^6/ul Hgb (12.0-16.0) g/dl Hct (35-47) % MCV (80-97) fL MCH (27-31) pg MCHC (31-36) g/dl RDW (10.5-15) % Plt Count (150-450) 10^3/ul MPV (7.4-10.4) um3 Neut % (Auto) (38-83) % Lymph % (Auto) (25-47) % [place] % (Auto) (1-9) % Eos % (Auto) (0-6) % Baso % (Auto) (0-2) % Absolute Neuts (auto) (1.5-7.7) 10^3/ul Absolute Lymphs (auto) (1.0-4.8) 10^3/ul Absolute Monos (auto) (0-0.8) 10^3/ul Absolute Eos (auto) (0-0.6) 10^3/ul Absolute Basos (auto) (0-0.2) 10^3/ul Absolute Nucleated RBC 10^3/ul Nucleated RBC % VBG pH (7.33-7.43) VBG pCO2 (41-51) mmHg VBG pO2 (35-45) mmHg VBG HCO3 (24-28) mmol/L VBG O2 Saturation (70-80) % VBG Base Excess (0-4) Sodium (133-145) mmol/L Potassium (3.5-5.0) mmol/L Chloride (101-111) mmol/L Carbon Dioxide (22-32) mmol/L Anion Gap (2-11) mmol/L BUN (6-24) mg/dL Creatinine (0.51-0.95) mg/dL Est GFR ( Amer) (>60) Est GFR (Non-Af Amer) (>60) BUN/Creatinine Ratio (8-20) Glucose (70-100) mg/dL POC Glucose (mg/dL) 289 H 157 H (70-100) mg/dL Calcium (8.6-10.3) mg/dL Total Bilirubin (0.2-1.0) mg/dL AST (13-39) U/L ALT (7-52) U/L Alkaline Phosphatase (34-104) U/L C-Reactive Protein (< 5.00) mg/L Total Protein (6.4-8.9) g/dL Albumin (3.2-5.2) g/dL Globulin (2-4) g/dL Albumin/Globulin Ratio (1-3) Urine Color Yellow Urine Appearance Clear Urine pH 5.0 (5-9) Ur Specific [place] 1.010 (1.010-1.030) Urine Protein Negative (Negative) Urine Ketones Negative (Negative) Urine Blood Negative (Negative) Urine Nitrate Negative (Negative) Urine Bilirubin Negative (Negative) Urine Urobilinogen Negative (Negative) Ur Leukocyte Esterase Negative (Negative) Urine Glucose 3+(>=500 mg/dl) H (Negative) Result Diagrams: 08/25/17 13:20 08/25/17 13:20 Lab Statement: Any lab studies that have been ordered have been reviewed, and results considered in the medical decision making process. Complex Multi-Symp Course/Dx Assessment/Plan: This patient is a 52 year old F BIBA to [facility] with a chief complaint of dental pain. The patient rates the pain 5/10 in severity. Patient reports increased urination and tooth pain. Patient denies CP, n/v/d, SOB, and ABD pain. Patient states she is very sick and had a blood glucose of 547 this morning. EMS reports her blood glucose being 454. She states she has a UTI and is taking Cephalexin. . Test results with no significant abnormalities except for blood glucose of 366. In the ED course the patient was given IV fluids and insulin. Given Toradol and Tylenol for dental pain, the pain has subsided. The patient is already taking an antibiotic for the UTI which will help with the dental infection. After a finger stick patient had a blood glucose of 157. Since the feeling better and will be discharged home. Patient will be discharged with follow up from PCP. The patient is agreeable with this plan. - Diagnoses Differential Diagnoses/HQI/PQRI: Urinary Tract Infection, Other - Diabetes, dental cavities, Dental abscess Provider Diagnoses: Diabetes mellitus with hyperglycemia, Dental cavities Discharge - Discharge Plan Condition: Stable Disposition: HOME Patient Education Materials: Diabetic Hyperglycemia (ED), Mediterranean Diet ( DC) Referrals: Chapo Aguila MD [Primary Care Provider] - 3 Days Additional Instructions: RETURN TO EMERGENCY DEPARTMENT FOR ANY NEW OR WORSENING SYMPTOMS The documentation as recorded by the Nitish roth Gabriel accurately reflects the service I personally performed and the decisions made by , Macyol Al MD.
== END 2017-08-25 16:54 | disposition home or self-care (01) ==
LOC: ED 12:26
DX: K02.9 Dental caries, unspecified (principal); E11.65 Type 2 diabetes mellitus with hyperglycemia; Z79.4 Long term (current) use of insulin; F17.210 Nicotine dependence, cigarettes, uncomplicated; Z88.3 Allergy status to other anti-infective agents; Z88.5 Allergy status to narcotic agent; Z88.0 Allergy status to penicillin; Z88.2 Allergy status to sulfonamides; Z88.8 Allergy status to other drugs, medicaments and biological substances
CPT/HCPCS: 36415; 80053; 81003; 82803; 85025; 86140; 96361; 96374; 96375; 96376; 99283; J1885

== ENCOUNTER 2017-08-26 12:47 | Emergency (ER) | payer MEDICARE ==
[2017-08-26] MEDS ORDERED: Ibuprofen TAB* 600 MG PO ONE (13:20)
--- NOTE | 2017-08-26 14:04 | RAD ---
HISTORY: Head injury, fall, neck pain COMPARISONS: None TECHNIQUE: Multiple contiguous axial CT scans were obtained of the cervical spine without intravenous contrast, with coronal and sagittal multiplanar reformations. FINDINGS: BRAIN: The visualized brain is unremarkable CENTRAL CANAL: Evaluation of the central canal is limited on CT technique; however, there is no obvious canalicular mass or epidural hemorrhage. ALIGNMENT: The alignment is normal, without subluxation or dislocation. VERTEBRAL BODIES: There is mild anterolateral marginal osteophyte formation at C3-C4. There is no displaced fracture JOINTS: There is minimal ossification of the anterior glenoid axial ligaments. 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 MUSCULATURE: Unremarkable INTERVERTEBRAL DISCS: There is mild diffuse loss of intervertebral disc height. AXIAL IMAGES: C2-C3: There is no osseous neural foraminal narrowing or central canal stenosis. C3-C4: There is no osseous neural foraminal narrowing or central canal stenosis. C4-C5: There is no osseous neural foraminal narrowing or central canal stenosis. C5-C6: There is no osseous neural foraminal narrowing or central canal stenosis. C6-C7: There is no osseous neural foraminal narrowing or central canal stenosis. C7-T1: There is no osseous neural foraminal narrowing or central canal stenosis. SOFT TISSUES: The visualized soft tissues of the neck are unremarkable. The prevertebral fat stripe is preserved. OTHER: None. IMPRESSION: MILD DEGENERATIVE DISC DISEASE AND OSTEOARTHRITIS. NO ACUTE OSSEOUS INJURY TO THE CERVICAL SPINE.
--- NOTE | 2017-08-26 14:05 | RAD ---
INDICATION: Head injury. COMPARISON: Comparison is made with a prior CT of the brain from May 19, 2017. TECHNIQUE: Contiguous axial sections of the brain were obtained from the skull base to the vertex without contrast. FINDINGS: The ventricles, cisterns and sulci are within normal limits. No significant focal abnormality or mass effect is seen. There is no evidence for hemorrhage. No significant focal osseous abnormality is seen. The visualized portion of the paranasal sinuses and mastoid air cells appear clear. There is a fatty tumor in the scalp in the posterior left occipital region measuring 2.5 x 1.2 cm in size most consistent with a lipoma which appears unchanged. IMPRESSION: NO EVIDENCE FOR ACUTE INTRACRANIAL ABNORMALITY.
--- NOTE | 2017-08-26 14:10 | RAD ---
Indication: Back pain after fall. CT of the lumbar spine was obtained in the axial plane. Sagittal and coronal reconstructed images were obtained. The vertebral bodies appear normal in height. No compression fracture is noted. At L5-S1 there is degenerative disc disease. Based protrusion flattens the thecal sac. No foraminal stenosis is noted. At L4-L5 there is degenerative disc disease. Broad-based protrusion and facet arthropathy is noted. No central foraminal stenosis is noted. At L3-L4 there is degenerative disc disease. No fracture is identified. No central or foraminal stenosis is noted. At L2-L3 and L1-L2 minimal degenerative disc disease is noted. IMPRESSION: Multilevel degenerative disc disease. No fracture is identified.
[2017-08-26 14:16] LABS: ABS Basophils 0 10^3/ul (0-0.2); ABS Lymphocytes 1.6 10^3/ul (1.0-4.8); ABS Monocytes 0.4 10^3/ul (0-0.8); ABS Neutrophils 5.9 10^3/ul (1.5-7.7); ABS Nucleated RBC 0 10^3/ul; Eosinophil % 11.5 % (0-6); Hematocrit 37 % (35-47); Hemoglobin 11.9 g/dl (12.0-16.0); Lymphocyte % 17.9 % (25-47); Mean Corpuscular HGB Conc 33 g/dl (31-36); Mean Corpuscular Hemoglobin 27 pg (27-31); Mean Corpuscular Volume 83 fL (80-97); Mean Platelet Volume 9 um3 (7.4-10.4); Nucleated Red Blood Cells % 0; Platelet Count 187 10^3/ul (150-450); Red Blood Count 4.42 10^6/ul (4.0-5.4); Red Cell Distribution Width 19 % (10.5-15)
--- NOTE | 2017-08-26 14:32 | RAD ---
HISTORY: Dizziness, fall, syncope COMPARISONS: August 22, 2017 VIEWS: 2: frontal portable view of the chest at 2:23 PM FINDINGS: LINES AND TUBES: None. CARDIOMEDIASTINAL SILHOUETTE: The cardiomediastinal silhouette is normal for portable technique. PLEURA: The costophrenic angles are sharp. No pleural abnormalities are noted. LUNG PARENCHYMA: There is patchy alveolar opacification of the right lower lung near the cardiophrenic angle. ABDOMEN: The upper abdomen is clear. There is no subphrenic gas. BONES AND SOFT TISSUES: No bone or soft tissue abnormalities are noted. IMPRESSION: PATCHY RIGHT LOWER LUNG ATELECTASIS VERSUS CONSOLIDATION.
[2017-08-26 14:33] LABS: EGFR Non-African American 62.8 (>60)
[2017-08-26 14:41] LABS: INR 0.82 (0.77-1.02)
[2017-08-26] MEDS ORDERED: traMADol TAB* 50 MG PO ONE (15:01)
[2017-08-26] MEDS ORDERED: Azithromycin TAB* 250 MG PO ONE (15:03)
[2017-08-26 15:12] VITALS: BP 107/56
--- NOTE | 2017-08-26 15:33 | ED ---
Lucero Rosales Thomas, scribed for Corey Easton on 08/26/17 at 1329 . Complex/Multi-Sys Presentation - HPI Summary HPI Summary: The patient is a 52 year old female who complains of back pain status post falling on the floor of her house. She was in her house when she became dizzy, fell, and lost consciousness. She does not remember what happened. She denies fever, chest pain, and abdominal pain. [place] [facility] [place] - History Of Current Complaint Chief Complaint: EDBackInjuryPain Time Seen by Provider: 08/26/17 13:06 Hx Obtained From: Patient Onset/Duration: Lasting Hours - earlier today, Still Present Timing: Constant Severity Initially: Moderate Location: Pain At: - back Alleviating Factor(s): None Associated Signs And Symptoms: Positive: Other - Back pain, dizziness, LOC; NEGATIVE: fever, CP, abd pain - Allergies/Home Medications Allergies/Adverse Reactions: Allergies Allergy/AdvReac Type Severity Reaction Status Date / Time Latex Allergy Severe Rash Verified 08/26/17 14:41 Sulfa Antibiotics Allergy Severe Hives Verified 08/26/17 14:41 Penicillins Allergy Intermediate Rash Verified 08/26/17 14:41 Nalbuphine Allergy Unknown Unknown Verified 08/26/17 14:41 Reaction Details Perphenazine Allergy Unknown Unknown Verified 08/26/17 14:41 Reaction Details Ciprofloxacin [From Cipro] AdvReac Severe Dizziness Verified 08/26/17 14:41 Tramadol AdvReac Severe Altered Verified 08/26/17 14:41 Mental Status [place] AdvReac Mild See Comment Verified 08/26/17 14:41 ENVIRONMENTAL Allergy Mild SINUS Uncoded 08/26/17 14:41 PMH/Surg Hx/FS Hx/Imm Hx Endocrine/Hematology History: Reports: Hx Diabetes, Hx Thyroid Disease, Other Endocrine/Hematological Disorders - Chronic pancreatitis Denies: Hx Anticoagulant Therapy Cardiovascular History: Reports: Hx Hypertension - NO MEDICATION FOR PER PATIENT , Other Cardiovascular Problems/Disorders - HX OF PSVT 04/2008 Denies: Hx Pacemaker/ICD Respiratory History: Reports: Hx Asthma, Hx Seasonal Allergies, Hx Sleep Apnea - HX OF IN THE PAST Denies: Hx Chronic Bronchitis, Hx Chronic Obstructive Pulmonary Disease (COPD ), Hx Cystic Fibrosis, Hx Lung Cancer, Hx Pleural Effusion, Hx Pneumonia, Hx Pulmonary Edema, Hx Pulmonary Embolism, Other Respiratory Problems/Disorders GI History: Reports: Hx Gall Bladder Disease, Hx Gastroesophageal Reflux Disease - ON MEDICATION FOR, Hx Gastrointestinal Bleed, Hx Irritable Bowel, Other GI Disorders - HX OF pancreatitis- STATES LAST ABOUT 2 WEEKS AGO- STATES SLIGHT CASE Denies: Hx Ulcer History: Denies: Hx Dialysis, Hx Renal Disease Musculoskeletal History: Reports: Hx Arthritis, Hx Back Problems, Other Musculoskeletal History - GEN MUSCULOSKELETAL PAIN Denies: Hx Rheumatoid Arthritis, Hx Bursitis, Hx Congenital Bone Abnormalities, Hx Fibromyalgia, Hx Gout, Hx Orthopedic Injury, Hx Osteoporosis, Hx Scoliosis, Hx Tendonitis Sensory History: Reports: Hx Contacts or Glasses, Hx Vision Problem Denies: Hx Cataracts, Hx Eye Injury, Hx Eye Prosthesis, Hx Glaucoma, Hx Macular Degeneration, Other Sensory Impairments Opthamlomology History: Reports: Hx Contacts or Glasses, Hx Vision Problem Denies: Hx Cataracts, Hx Eye Injury, Hx Eye Prosthesis, Hx Glaucoma, Hx Macular Degeneration, Other Sensory Impairments Neurological History: Reports: Hx Developmental Delay - intellectual disability , Hx Seizures - STATES WITH ALLERGIC REACTION TO TRAMADOL Denies: Hx Dementia, Other Neuro Impairments/Disorders Psychiatric History: Reports: Hx Anxiety - ON MEDICATION FOR, Hx Depression - ON MEDICATION FOR, Hx Post Traumatic Stress Disorder, Hx Inpatient Treatment, Hx Community Mental Health Tx, Hx Bipolar Disorder - pt manic, Hx Suicide Attempt - past med overdoses, Hx of Violent Episodes Against Others, Other Psychiatric Issues/Disorders - PSYCHOSIS NOS, HX OF PTSD, SCHIZOAFFECTIVE DISORDER, BORDERLINE PERSONALITY Denies: Hx Attention Deficit Hyperactivity Disorder, Hx Eating Disorder, Hx Panic Disorder, Hx Schizophrenia, Hx Substance Abuse - Surgical History Surgery Procedure, Year, and Place: 2011-CATARACT EXTRACTION. GALLBLADDER REMOVED Hx Anesthesia Reactions: No - Immunization History Date of Tetanus Vaccine: Unknown Date of Influenza Vaccine: 04/2017 Infectious Disease History: No Infectious Disease History: Denies: Hx Clostridium Difficile, Hx Hepatitis, Hx Human Immunodeficiency Virus (HIV), Hx of Known/Suspected MRSA, Hx Shingles, Hx Tuberculosis, Hx Known/ Suspected VRE, Hx Known/Suspected VRSA, History Other Infectious Disease, Traveled Outside the [place] in Last 30 Days - Family History Known Family History: Positive: Other - Anxiety and depression, [place] - father Negative: Cardiac Disease, Hypertension, Diabetes Family History: Depression and anxiety - Social History Alcohol Use: None Hx Substance Use: Yes Substance Use Type: Reports: None Hx Tobacco Use: Yes Smoking Status (MU): Former Smoker Type: Cigarettes Amount Used/How Often: Quit for 2 years, but started again in March. USING THE NICOTINE Length of Time of Smoking/Using Tobacco: 2 year ago Have You Smoked in the Last Year: Yes - Patient has smoked within the last 30 days Review of Systems Negative: Fever Negative: Chest Pain Negative: Abdominal Pain Positive: Other - Back pain Neurological: Other - LOC, dizziness All Other Systems Reviewed And Are Negative: Yes Physical Exam - Summary Physical Exam Summary: Appearance: Well appearing, no pain distress Skin: warm, dry, reflects adequate perfusion Head/face: There is tenderness of the C-spine and L-spine Eyes: EOMI, JENNIFER ENT: normal Neck: supple, non-tender Respiratory: CTA, breath sounds present Cardiovascular: RRR, pulses symmetrical Abdomen: non-tender, soft Bowel: present Musculoskeletal: normal, strength/ROM intact Neuro: normal, sensory motor intact, A&Ox3 Triage Information Reviewed: Yes Vital Signs On Initial Exam: Initial Vitals Temp Pulse Resp BP Pulse Ox 98 F 72 18 114/52 98 08/26/17 13:09 08/26/17 13:09 08/26/17 13:09 08/26/17 13:09 08/26/17 13:09 Vital Signs Reviewed: Yes Diagnostics - Vital Signs Vital Signs Temp Pulse Resp BP Pulse Ox 08/26/17 13:09 98 F 72 18 114/52 98 - Laboratory Lab Results: Lab Results 08/26/17 08/26/17 08/26/17 Range/Units 14:05 14:05 14:05 WBC 9.0 (3.5-10.8) 10^3/ul RBC 4.42 (4.0-5.4) 10^6/ul Hgb 11.9 L (12.0-16.0) g/dl Hct 37 (35-47) % MCV 83 (80-97) fL MCH 27 (27-31) pg MCHC 33 (31-36) g/dl RDW 19 H (10.5-15) % Plt Count 187 (150-450) 10^3/ul MPV 9 (7.4-10.4) um3 Neut % (Auto) 65.5 (38-83) % Lymph % (Auto) 17.9 L (25-47) % [place] % (Auto) 4.6 (1-9) % Eos % (Auto) 11.5 H (0-6) % Baso % (Auto) 0.5 (0-2) % Absolute Neuts (auto) 5.9 (1.5-7.7) 10^3/ul Absolute Lymphs (auto) 1.6 (1.0-4.8) 10^3/ul Absolute Monos (auto) 0.4 (0-0.8) 10^3/ul Absolute Eos (auto) 1.0 H (0-0.6) 10^3/ul Absolute Basos (auto) 0 (0-0.2) 10^3/ul Absolute Nucleated RBC 0 10^3/ul Nucleated RBC % 0 INR (Anticoag Therapy) 0.82 (0.77-1.02) APTT 27.7 (26.0-36.3) seconds Sodium 139 (133-145) mmol/L Potassium 5.0 (3.5-5.0) mmol/L Chloride 105 (101-111) mmol/L Carbon Dioxide 29 (22-32) mmol/L Anion Gap 5 (2-11) mmol/L BUN 12 (6-24) mg/dL Creatinine 0.94 (0.51-0.95) mg/dL Est GFR ( Amer) 80.7 (>60) Est GFR (Non-Af Amer) 62.8 (>60) BUN/Creatinine Ratio 12.8 (8-20) Glucose 171 H (70-100) mg/dL Calcium 9.1 (8.6-10.3) mg/dL Total Bilirubin 0.20 (0.2-1.0) mg/dL AST 27 (13-39) U/L ALT 20 (7-52) U/L Alkaline Phosphatase 106 H (34-104) U/L Troponin I 0.01 (<0.04) ng/mL Total Protein 6.7 (6.4-8.9) g/dL Albumin 3.5 (3.2-5.2) g/dL Globulin 3.2 (2-4) g/dL Albumin/Globulin Ratio 1.1 (1-3) Result Diagrams: 08/26/17 14:05 08/26/17 14:05 Lab Statement: Any lab studies that have been ordered have been reviewed, and results considered in the medical decision making process. - Radiology CXR Xray Interpretation: No Acute Changes - PATCHY RIGHT LOWER LUNG ATELECTASIS VERSUS CONSOLIDATION. Dr. Easton has reviewed this report. Radiology Interpretation Completed By: Radiologist - CT CT L-Spine CT Interpretation: No Acute Changes - Multilevel degenerative disc disease. No fracture is identified. Dr. Easton has reviewed this report. CT Interpretation Completed By: Radiologist CT C-Spine CT Interpretation: No Acute Changes - MILD DEGENERATIVE DISC DISEASE AND OSTEOARTHRITIS. NO ACUTE OSSEOUS INJURY TO THE CERVICAL SPINE. Dr. Easton has reviewed this report. CT Interpretation Completed By: Radiologist CT Brain CT Interpretation: No Acute Changes - NO EVIDENCE FOR ACUTE INTRACRANIAL ABNORMALITY. Dr. Easton has reviewed this report. CT Interpretation Completed By: Radiologist - EKG 14:43 Cardiac Rate: NL EKG Rhythm: Sinus Rhythm - at 74 BPM EKG Interpretation: No acute changes. Complex Multi-Symp Course/Dx Assessment/Plan: The patient is a 52 year old female who complains of back pain status post falling on the floor of her house. She was in her house when she became dizzy, fell, and lost consciousness. Bloodwork, EKG, CXR, CT Brain, CT C- Spine, and CT L-Spine were obtained with results earlier in this report. Patient will be discharged home with primary care follow up. She is diagnosed with neck pain, back pain, and pneumonia. - Diagnoses Differential Diagnoses/HQI/PQRI: Other - neck pain/back pain/weakness Provider Diagnoses: Neck pain, Back pain, Pneumonia Discharge - Discharge Plan Condition: Stable Disposition: HOME Prescriptions: Azithromycin TAB* [Zithromax TAB (Z-YANET) 250 mg #6 tabs] 250 mg PO DAILY #4 tab Tramadol HCl [Ultram] 50 mg PO TID #10 tab MDD 3 Patient Education Materials: Back Pain (ED), Pneumonia (ED), Neck Pain (ED) Referrals: Chapo Aguila MD [Primary Care Provider] - Additional Instructions: Follow up with your primary care physician in three days. Return to the emergency department for any new or worsening symptoms. The documentation as recorded by the Lucero roth Thomas accurately reflects the service I personally performed and the decisions made by Rustam de león Emmanuel.
== END 2017-08-26 15:22 | disposition home or self-care (01) ==
LOC: ED 12:47
DX: M54.2 Cervicalgia (principal); J18.9 Pneumonia, unspecified organism; Z87.891 Personal history of nicotine dependence; Z88.3 Allergy status to other anti-infective agents; Z88.5 Allergy status to narcotic agent; Z88.0 Allergy status to penicillin; Z88.2 Allergy status to sulfonamides; Z88.8 Allergy status to other drugs, medicaments and biological substances
CPT/HCPCS: 36415; 70450; 71045; 72125; 72131; 80053; 84484; 85025; 85610; 85730; 93005; 99283; A9270-GY

== ENCOUNTER 2017-08-28 21:11 | Emergency (ER) | payer MEDICARE ==
[2017-08-29 02:54] LABS: ABS Basophils 0 10^3/ul (0-0.2); ABS Lymphocytes 2.5 10^3/ul (1.0-4.8); ABS Monocytes 0.6 10^3/ul (0-0.8); ABS Neutrophils 5.1 10^3/ul (1.5-7.7); ABS Nucleated RBC 0 10^3/ul; Eosinophil % 10.6 % (0-6); Hematocrit 33 % (35-47); Hemoglobin 10.8 g/dl (12.0-16.0); Lymphocyte % 27.1 % (25-47); Mean Corpuscular HGB Conc 33 g/dl (31-36); Mean Corpuscular Hemoglobin 27 pg (27-31); Mean Corpuscular Volume 82 fL (80-97); Mean Platelet Volume 10 um3 (7.4-10.4); Nucleated Red Blood Cells % 0; Platelet Count 173 10^3/ul (150-450); Red Blood Count 4.06 10^6/ul (4.0-5.4); Red Cell Distribution Width 19 % (10.5-15); White Blood Count 9.1 10^3/ul (3.5-10.8)
[2017-08-29 03:06] LABS: EGFR Non-African American 47.4 (>60)
[2017-08-29] MEDS ORDERED: DOXYcycline CAP(*) 100 MG PO ONE (03:38)
[2017-08-29] MEDS ORDERED: Lidocaine PATCH 5%* 1 PATCH TRANSDERM ONE (03:38)
--- NOTE | 2017-08-29 03:41 | ED ---
HPI Chest Pain - HPI Summary HPI Summary: 52-year-old female presents with chest pain today. She states she was recently diagnosed with pneumonia and was placed on Z-Narinder. She denies any shortness of breath. She describes the chest pain as an ache. She denies any radiation of the chest pain. She has no cardiac history. She also states she has had back pain for the past week. She states the same back pain she had when she had imaging done here. She states her back pain is not changed at all. She denies any pain or numbness into her legs. She is able to ambulate. She denies any saddle anesthesia are also bladder. - History of Current Complaint Chief Complaint: EDChestPainROMI Time Seen by Provider: 08/28/17 23:28 Hx Last Menstrual Period: going through menopause Pain Intensity: 8 - Additional Pertinent History Primary Care Physician: [id number] - Allergy/Home Medications Allergies/Adverse Reactions: Allergies Allergy/AdvReac Type Severity Reaction Status Date / Time Latex Allergy Severe Rash Verified 08/26/17 14:41 Sulfa Antibiotics Allergy Severe Hives Verified 08/26/17 14:41 Penicillins Allergy Intermediate Rash Verified 08/26/17 14:41 Nalbuphine Allergy Unknown Unknown Verified 08/26/17 14:41 Reaction Details Perphenazine Allergy Unknown Unknown Verified 08/26/17 14:41 Reaction Details Ciprofloxacin [From Cipro] AdvReac Severe Dizziness Verified 08/26/17 14:41 Tramadol AdvReac Severe Altered Verified 08/26/17 14:41 Mental Status [place] AdvReac Mild See Comment Verified 08/26/17 14:41 ENVIRONMENTAL Allergy Mild SINUS Uncoded 08/26/17 14:41 PMH/Surg Hx/FS Hx/Imm Hx Endocrine/Hematology History: Reports: Hx Diabetes, Hx Thyroid Disease, Other Endocrine/Hematological Disorders - Chronic pancreatitis Denies: Hx Anticoagulant Therapy Cardiovascular History: Reports: Hx Hypertension - NO MEDICATION FOR PER PATIENT , Other Cardiovascular Problems/Disorders - HX OF PSVT 04/2008 Denies: Hx Pacemaker/ICD Respiratory History: Reports: Hx Asthma, Hx Seasonal Allergies, Hx Sleep Apnea - HX OF IN THE PAST Denies: Hx Chronic Bronchitis, Hx Chronic Obstructive Pulmonary Disease (COPD ), Hx Cystic Fibrosis, Hx Lung Cancer, Hx Pleural Effusion, Hx Pneumonia, Hx Pulmonary Edema, Hx Pulmonary Embolism, Other Respiratory Problems/Disorders GI History: Reports: Hx Gall Bladder Disease, Hx Gastroesophageal Reflux Disease - ON MEDICATION FOR, Hx Gastrointestinal Bleed, Hx Irritable Bowel, Other GI Disorders - HX OF pancreatitis- STATES LAST ABOUT 2 WEEKS AGO- STATES SLIGHT CASE Denies: Hx Ulcer History: Denies: Hx Dialysis, Hx Renal Disease Musculoskeletal History: Reports: Hx Arthritis, Hx Back Problems, Other Musculoskeletal History - GEN MUSCULOSKELETAL PAIN Denies: Hx Rheumatoid Arthritis, Hx Bursitis, Hx Congenital Bone Abnormalities, Hx Fibromyalgia, Hx Gout, Hx Orthopedic Injury, Hx Osteoporosis, Hx Scoliosis, Hx Tendonitis Sensory History: Reports: Hx Contacts or Glasses, Hx Vision Problem Denies: Hx Cataracts, Hx Eye Injury, Hx Eye Prosthesis, Hx Glaucoma, Hx Macular Degeneration, Other Sensory Impairments Opthamlomology History: Reports: Hx Contacts or Glasses, Hx Vision Problem Denies: Hx Cataracts, Hx Eye Injury, Hx Eye Prosthesis, Hx Glaucoma, Hx Macular Degeneration, Other Sensory Impairments Neurological History: Reports: Hx Developmental Delay - intellectual disability , Hx Seizures - STATES WITH ALLERGIC REACTION TO TRAMADOL Denies: Hx Dementia, Other Neuro Impairments/Disorders Psychiatric History: Reports: Hx Anxiety - ON MEDICATION FOR, Hx Depression - ON MEDICATION FOR, Hx Post Traumatic Stress Disorder, Hx Inpatient Treatment, Hx Community Mental Health Tx, Hx Bipolar Disorder - pt manic, Hx Suicide Attempt - past med overdoses, Hx of Violent Episodes Against Others, Other Psychiatric Issues/Disorders - PSYCHOSIS NOS, HX OF PTSD, SCHIZOAFFECTIVE DISORDER, BORDERLINE PERSONALITY Denies: Hx Attention Deficit Hyperactivity Disorder, Hx Eating Disorder, Hx Panic Disorder, Hx Schizophrenia, Hx Substance Abuse - Surgical History Surgery Procedure, Year, and Place: 2011-CATARACT EXTRACTION. GALLBLADDER REMOVED Hx Anesthesia Reactions: No - Immunization History Date of Tetanus Vaccine: Unknown Date of Influenza Vaccine: 04/2017 Infectious Disease History: No Infectious Disease History: Denies: Hx Clostridium Difficile, Hx Hepatitis, Hx Human Immunodeficiency Virus (HIV), Hx of Known/Suspected MRSA, Hx Shingles, Hx Tuberculosis, Hx Known/ Suspected VRE, Hx Known/Suspected VRSA, History Other Infectious Disease, Traveled Outside the [place] in Last 30 Days - Family History Known Family History: Positive: Other - Anxiety and depression, [place] - father Negative: Cardiac Disease, Hypertension, Diabetes Family History: Depression and anxiety - Social History Alcohol Use: None Hx Substance Use: Yes Substance Use Type: Reports: None Hx Tobacco Use: Yes Smoking Status (MU): Former Smoker Type: Cigarettes Amount Used/How Often: Quit for 2 years, but started again in March. USING THE NICOTINE Length of Time of Smoking/Using Tobacco: 2 year ago Have You Smoked in the Last Year: Yes - Patient has smoked within the last 30 days Review of Systems Negative: Fever Positive: Chest Pain Negative: Shortness Of Breath, Cough Positive: Myalgia - back pain All Other Systems Reviewed And Are Negative: Yes Physical Exam Triage Information Reviewed: Yes Vital Signs On Initial Exam: Initial Vitals Temp Pulse Resp BP Pulse Ox 98.8 F 69 18 129/67 96 08/28/17 21:20 08/28/17 21:20 08/28/17 21:20 08/28/17 21:20 08/28/17 21:20 Vital Signs Reviewed: Yes Appearance: Positive: Well-Appearing Skin: Positive: Warm, Dry Head/Face: Positive: Normal Head/Face Inspection Eyes: Positive: Normal, EOMI, JENNIFER, Conjunctiva Clear ENT: Positive: Normal ENT inspection, Pharynx normal, TMs normal Respiratory/Lung Sounds: Positive: Clear to Auscultation, Breath Sounds Present , Other - reproducible chest pain Cardiovascular: Positive: Normal, RRR Abdomen Description: Positive: Nontender, Soft Bowel Sounds: Positive: Present Musculoskeletal: Positive: Strength/ROM Intact - back, Other - tenderness lower back, neg SLR, good pulses, sensation grossly intact Neurological: Positive: Normal Psychiatric: Positive: Normal Diagnostics - Vital Signs Vital Signs Temp Pulse Resp BP Pulse Ox 08/28/17 21:20 98.8 F 69 18 129/67 96 - Laboratory Lab Results: Lab Results 08/29/17 08/29/17 08/29/17 Range/Units 02:05 02:05 02:05 WBC 9.1 (3.5-10.8) 10^3/ul RBC 4.06 (4.0-5.4) 10^6/ul Hgb 10.8 L (12.0-16.0) g/dl Hct 33 L (35-47) % MCV 82 (80-97) fL MCH 27 (27-31) pg MCHC 33 (31-36) g/dl RDW 19 H (10.5-15) % Plt Count 173 (150-450) 10^3/ul MPV 10 (7.4-10.4) um3 Neut % (Auto) 56.0 (38-83) % Lymph % (Auto) 27.1 (25-47) % [place] % (Auto) 6.0 (1-9) % Eos % (Auto) 10.6 H (0-6) % Baso % (Auto) 0.3 (0-2) % Absolute Neuts (auto) 5.1 (1.5-7.7) 10^3/ul Absolute Lymphs (auto) 2.5 (1.0-4.8) 10^3/ul Absolute Monos (auto) 0.6 (0-0.8) 10^3/ul Absolute Eos (auto) 1.0 H (0-0.6) 10^3/ul Absolute Basos (auto) 0 (0-0.2) 10^3/ul Absolute Nucleated RBC 0 10^3/ul Nucleated RBC % 0 Sodium 136 (133-145) mmol/L Potassium 4.9 (3.5-5.0) mmol/L Chloride 104 (101-111) mmol/L Carbon Dioxide 27 (22-32) mmol/L Anion Gap 5 (2-11) mmol/L BUN 18 (6-24) mg/dL Creatinine 1.20 H (0.51-0.95) mg/dL Est GFR ( Amer) 60.9 (>60) Est GFR (Non-Af Amer) 47.4 (>60) BUN/Creatinine Ratio 15.0 (8-20) Glucose 53 L (70-100) mg/dL Calcium 8.7 (8.6-10.3) mg/dL Total Bilirubin 0.20 (0.2-1.0) mg/dL AST 24 (13-39) U/L ALT 18 (7-52) U/L Alkaline Phosphatase 86 (34-104) U/L Troponin I 0.00 (<0.04) ng/mL C-React Prot High Sens 1.79 mg/L B-Natriuretic Peptide 21 ( - 100) pg/mL Total Protein 6.1 L (6.4-8.9) g/dL Albumin 3.2 (3.2-5.2) g/dL Globulin 2.9 (2-4) g/dL Albumin/Globulin Ratio 1.1 (1-3) Lipase < 10 L (11.0-82.0) U/L Result Diagrams: 08/29/17 02:05 08/29/17 02:05 Lab Statement: Any lab studies that have been ordered have been reviewed, and results considered in the medical decision making process. - Radiology chest Xray Interpretation: Positive (See Comments) - similiar to previous when had pneumonia Radiology Interpretation Completed By: ED Physician - EKG No standard instances Cardiac Rate: NL EKG Rhythm: Sinus Rhythm EKG Interpretation: normal sinus rhythm EKG Comparison: No Significant Change Chest Pain Course/Dx - Course Course Of Treatment: 52-year-old female presents with chest pain today. She states she was recently diagnosed with pneumonia and was placed on Z-Narinder. She denies any shortness of breath. She describes the chest pain as an ache. She denies any radiation of the chest pain. She has no cardiac history. She also states she has had back pain for the past week. She states the same back pain she had when she had imaging done here. She states her back pain is not changed at all. She denies any pain or numbness into her legs. She is able to ambulate. She denies any saddle anesthesia are also bladder. On exam reproducible chest pain. Lungs clear to auscultation. Abdomen soft nontender. Lower back pain present. Negative straight leg speaking. Neurovascular intact. EKG normal. Chest the read by me as continued pneumonia compared with previous. Did not get imaging of back pain is unchanged since when had imaging here. will treat with doxycyline for continued pneumonia. patient no resp distress on exam and labs within normal limit. glucose 54 so gave food. will do lidocaine patch for back pain. Patient understands and agrees with plan. - Diagnoses Provider Diagnoses: Chest pain, Back pain, Pneumonia Discharge - Discharge Plan Condition: Good Disposition: HOME Prescriptions: DOXYcycline CAP(*) [DOXYcycline 100MG CAP(*)] 100 mg PO BID #13 cap Lidocaine PATCH 5%* [Lidoderm 5% Patch*] 1 patch TRANSDERM DAILY #6 patch Patient Education Materials: Back Pain (ED), Pneumonia (ED) Referrals: Chapo Aguila MD [Primary Care Provider] - Additional Instructions: Take doxycycline twice a day for 7 days Apply lidocaine patches to area for up to 12 hours in one 24 hour period Use Tylenol for pain every 6 hours ice/heat area, move as much as possible Follow up with primary within 5 days Return to ED if develop any new or worsening symptoms
[2017-08-29 04:14] VITALS: BP 125/85
--- NOTE | 2017-08-29 08:00 | RAD ---
Indication: Chest pain. 2 views of the chest demonstrates elevated right hemidiaphragm. Cardiomegaly is noted. No alveolar consolidation is noted. When compared to previous exam of November 09, 2002 no significant change is noted. IMPRESSION: No active cardiopulmonary disease is noted. Cardiomegaly with elevated right hemidiaphragm.
== END 2017-08-29 04:15 | disposition home or self-care (01) ==
LOC: ED 21:11
DX: R07.9 Chest pain, unspecified (principal); M54.9 Dorsalgia, unspecified; J18.9 Pneumonia, unspecified organism; Z87.891 Personal history of nicotine dependence; E11.9 Type 2 diabetes mellitus without complications; I10 Essential (primary) hypertension; F17.200 Nicotine dependence, unspecified, uncomplicated; M54.5 Low back pain
CPT/HCPCS: 36415; 71046; 80053; 83690; 83880; 84484; 85025; 86141; 93005; 99282; A9270-GY

== ENCOUNTER 2017-08-31 16:57 | Emergency (ER) | payer MEDICARE ==
--- NOTE | 2017-08-31 19:50 | UC ---
Minor Trauma HPI - HPI Summary HPI Summary: Patient presents s/p fall, she states she fell backwards and landed on her back , and now is having worse bad pain in the lower part, she states she had a history of a slipped disc and since she fell her back hurts more. She denies any incontinence of bowel or bladder, and denies any saddle anesthesia. She states she is able to walk, and denies any numnbess, tingling, or weakness in her legs. She also states that when she fell she hurt her right elbow, she states it is swollen and bruised. She states she can move it and it does not hurt. She denies any numbness or tingling in her right arm. - History of Current Complaint Chief Complaint: UCUpperExtremity Stated Complaint: BACK AND ARM INJURY Time Seen by Provider: 08/31/17 19:34 Hx Obtained From: Patient Hx Last Menstrual Period: going through menopause Onset/Duration: Sudden Onset, Lasting Hours Onset Of Pain: Immediate Severity Initially: Mild Severity Currently: Moderate Pain Intensity: 8 Mechanism Of Injury: Blunt Trauma Aggravating Factor(s): Movement Alleviating Factor(s): Rest - Risk Factors Penetrating Injury Risk Factors: Negative - Allergies/Home Medications Allergies/Adverse Reactions: Allergies Allergy/AdvReac Type Severity Reaction Status Date / Time MS Latex [Latex] Allergy Severe Rash Verified 08/31/17 17:17 MS Sulfa Antibiotics Allergy Severe Hives Verified 08/31/17 17:17 [Sulfa Antibiotics] MS Penicillins [Penicillins] Allergy Intermediate Rash Verified 08/31/17 17:17 MS Nalbuphine [Nalbuphine] Allergy Unknown Unknown Verified 08/31/17 17:17 Reaction Details MS Perphenazine Allergy Unknown Unknown Verified 08/31/17 17:17 [Perphenazine] Reaction Details MS Ciprofloxacin [From Cipro] AdvReac Severe Dizziness Verified 08/31/17 17:17 MS Tramadol [Tramadol] AdvReac Severe Altered Verified 08/31/17 17:17 Mental Status MS [place] [[place]] AdvReac Mild See Comment Verified 08/31/17 17:17 ENVIRONMENTAL Allergy Mild SINUS Uncoded 08/31/17 17:17 PMH/Surg Hx/FS Hx/Imm Hx Previously Healthy: Yes Other History Of: Negative For: Anticoagulant Therapy - Surgical History Surgical History: Yes Surgery Procedure, Year, and Place: 2011-CATARACT EXTRACTION. GALLBLADDER REMOVED - Family History Known Family History: Positive: Other - Anxiety and depression, [place] - father Negative: Cardiac Disease, Hypertension, Diabetes Family History: Depression and anxiety - Social History Occupation: Disabled Lives: Alone Alcohol Use: None Substance Use Type: None Smoking Status (MU): Former Smoker Type: Cigarettes Amount Used/How Often: Quit for 2 years, but started again in March. USING THE NICOTINE Length of Time of Smoking/Using Tobacco: 2 year ago Have You Smoked in the Last Year: Yes - Patient has smoked within the last 30 days When Did the Patient Quit Smoking/Using Tobacco: ATTEMPTING TO QUIT Household Exposure Type: Cigarettes - Immunization History Most Recent Influenza Vaccination: Within the past month or two at [facility] Most Recent Tetanus Shot: Unsure Most Recent Pneumonia Vaccination: 05/20/2017 Review of Systems Constitutional: Negative Skin: Negative Eyes: Negative ENT: Negative Respiratory: Negative Cardiovascular: Negative Gastrointestinal: Negative Genitourinary: Negative Motor: Negative Neurovascular: Negative Musculoskeletal: Edema, Myalgia, Other: - right elbow brusied medial aspect. with minor soft tissue swelling. Neurological: Negative Psychological: Negative Is Patient Immunocompromised?: No All Other Systems Reviewed And Are Negative: Yes Physical Exam Triage Information Reviewed: Yes Appearance: Well-Appearing Vital Signs: Initial Vital Signs Temp 97.0 F 08/31/17 17:13 Pulse 88 08/31/17 17:13 Resp 18 08/31/17 17:13 BP 128/74 08/31/17 17:13 Pulse Ox 98 08/31/17 17:13 Vital Signs Reviewed: Yes Eye Exam: Normal ENT Exam: Normal Dental Exam: Normal Neck exam: Normal Neck: Positive: 1 Respiratory Exam: Normal Cardiovascular Exam: Normal Abdominal Exam: Normal Musculoskeletal Exam: Normal Musculoskeletal: Positive: ROM Limited @ - back inspection, vertebra are in good aligment with no step-offs or deformities. nontender midline. reproducible pain reported of the right medical buttock. lowre extremity strength testing equal 2+, patelar relfexes equal 1+. sensory without deficits of the extremities. negative straight leg raise. right elbow, bruising noted over the ac area. tenderness on palpation of the ac area. rom intact in all planes. senosory without deficits. vasc strong radial and ulnar pulses., Edema @ Neurological Exam: Normal Psychological Exam: Normal Skin Exam: Normal Minor Trauma Course/Dx - Course Course Of Treatment: Patient presents s/p fall with complaints of right elbow pain and lumbar pain, xrays of the right elbow and lunbar spine were obtained and were read by the radiologist and reviewed by myself as negative, the findins were discussed with the patient. She takes Tramadol for pain and in addition I recommend that she take tyelonl. If her symtpoms persist she was told she would have to follow up with her PCP. - Differential Dx/Diagnosis Provider Diagnoses: right elbow contusion. acute lumbar sprain Discharge - Discharge Plan Condition: Stable Disposition: HOME Prescriptions: Acetaminophen TAB* [Tylenol TAB*] 650 mg PO Q6H PRN #20 tab PRN Reason: back pain Patient Education Materials: Contusion in Adults (ED), Back Pain (ED) Referrals: Chapo Aguila MD [Primary Care Provider] -
--- NOTE | 2017-08-31 20:23 | RAD ---
INDICATION: Right elbow injury. TECHNIQUE: 4 views of the right elbow were obtained. FINDINGS: The bones are in normal alignment. No joint effusion or fracture is seen. Joint spaces appear maintained. IMPRESSION: NO EVIDENCE FOR FRACTURE, IF THE PATIENT'S SYMPTOMS PERSIST RECOMMEND FOLLOW-UP IMAGING.
--- NOTE | 2017-08-31 20:27 | RAD ---
INDICATION: Trauma, back pain. COMPARISON: Comparison is made with a prior x-ray study from March 21, [address] of the lumbar spine from August 26, 2017. TECHNIQUE: 5 views of the lumbar spine were obtained including lateral, oblique, AP and a coned-down lateral view of the lumbar sacral junction. FINDINGS: The vertebra are in normal alignment. No fracture is seen. There is moderate diffuse degenerative disc disease. IMPRESSION: NO EVIDENCE FOR FRACTURE.
[2017-08-31] MEDS ORDERED: Acetaminophen TAB* 325 MG PO ONE (20:47)
[2017-08-31 21:07] VITALS: BP 130/80
== END 2017-08-31 21:05 | disposition home or self-care (01) ==
LOC: UCEAST 16:57
DX: S33.5XXA Sprain of ligaments of lumbar spine, initial encounter (principal); S50.01XA Contusion of right elbow, initial encounter; W19.XXXA Unspecified fall, initial encounter; Y93.9 Activity, unspecified; Y92.9 Unspecified place or not applicable; Z98.49 Cataract extraction status, unspecified eye; Z90.49 Acquired absence of other specified parts of digestive tract; Z88.5 Allergy status to narcotic agent; Z88.0 Allergy status to penicillin; Z88.2 Allergy status to sulfonamides; Z88.8 Allergy status to other drugs, medicaments and biological substances; Z88.1 Allergy status to other antibiotic agents; Z91.040 Latex allergy status; F17.210 Nicotine dependence, cigarettes, uncomplicated
CPT/HCPCS: 72110; 99212; A9270-GY; G0463

== ENCOUNTER 2017-09-12 22:00 | Emergency (ER) | payer MEDICARE ==
[2017-09-13] MEDS ORDERED: Ibuprofen TAB* 800 MG PO ONE (02:38)
[2017-09-13 03:17] VITALS: BP 124/64
--- NOTE | 2017-09-13 03:28 | ED ---
Lucero Rosales Thomas, scribed for Sendy Mcdowell MD on 09/13/17 at 0326 . HPI Diabetic - HPI Summary HPI Summary: The patient is a 52 year old female with a history of DM who is frequently seen in the emergency department. She presents today with elevated blood sugar in the 300s. She says she is unable to obtain strips. - History Of Current Complaint Chief Complaint: EDDiabeticProb Time Seen by Provider: 09/13/17 02:25 Hx Obtained From: Patient Hx Last Menstrual Period: going through menopause Onset/Duration: Still Present Timing: Constant Severity Currently: Moderate Character: Alert Aggravating: Other - Unable to find strips Alleviating: Nothing Related History: DM II, Oral Hypoglycemics - Allergies/Home Medications Allergies/Adverse Reactions: Allergies Allergy/AdvReac Type Severity Reaction Status Date / Time MS Latex [Latex] Allergy Severe Rash Verified 08/31/17 17:17 MS Sulfa Antibiotics Allergy Severe Hives Verified 08/31/17 17:17 [Sulfa Antibiotics] MS Penicillins [Penicillins] Allergy Intermediate Rash Verified 08/31/17 17:17 MS Nalbuphine [Nalbuphine] Allergy Unknown Unknown Verified 08/31/17 17:17 Reaction Details MS Perphenazine Allergy Unknown Unknown Verified 08/31/17 17:17 [Perphenazine] Reaction Details MS Ciprofloxacin [From Cipro] AdvReac Severe Dizziness Verified 08/31/17 17:17 MS Tramadol [Tramadol] AdvReac Severe Altered Verified 08/31/17 17:17 Mental Status MS [place] [[place]] AdvReac Mild See Comment Verified 08/31/17 17:17 ENVIRONMENTAL Allergy Mild SINUS Uncoded 08/31/17 17:17 PMH/Surg Hx/FS Hx/Imm Hx Endocrine/Hematology History: Reports: Hx Diabetes, Hx Thyroid Disease, Other Endocrine/Hematological Disorders - Chronic pancreatitis Denies: Hx Anticoagulant Therapy Cardiovascular History: Reports: Hx Hypertension - NO MEDICATION FOR PER PATIENT , Other Cardiovascular Problems/Disorders - HX OF PSVT 04/2008 Denies: Hx Pacemaker/ICD Respiratory History: Reports: Hx Asthma, Hx Seasonal Allergies, Hx Sleep Apnea - HX OF IN THE PAST Denies: Hx Chronic Bronchitis, Hx Chronic Obstructive Pulmonary Disease (COPD ), Hx Cystic Fibrosis, Hx Lung Cancer, Hx Pleural Effusion, Hx Pneumonia, Hx Pulmonary Edema, Hx Pulmonary Embolism, Other Respiratory Problems/Disorders GI History: Reports: Hx Gall Bladder Disease, Hx Gastroesophageal Reflux Disease - ON MEDICATION FOR, Hx Gastrointestinal Bleed, Hx Irritable Bowel, Other GI Disorders - HX OF pancreatitis- STATES LAST ABOUT 2 WEEKS AGO- STATES SLIGHT CASE Denies: Hx Ulcer History: Denies: Hx Dialysis, Hx Renal Disease Musculoskeletal History: Reports: Hx Arthritis, Hx Back Problems, Other Musculoskeletal History - GEN MUSCULOSKELETAL PAIN Denies: Hx Rheumatoid Arthritis, Hx Bursitis, Hx Congenital Bone Abnormalities, Hx Fibromyalgia, Hx Gout, Hx Orthopedic Injury, Hx Osteoporosis, Hx Scoliosis, Hx Tendonitis Sensory History: Reports: Hx Contacts or Glasses, Hx Vision Problem Denies: Hx Cataracts, Hx Eye Injury, Hx Eye Prosthesis, Hx Glaucoma, Hx Macular Degeneration, Other Sensory Impairments Opthamlomology History: Reports: Hx Contacts or Glasses, Hx Vision Problem Denies: Hx Cataracts, Hx Eye Injury, Hx Eye Prosthesis, Hx Glaucoma, Hx Macular Degeneration, Other Sensory Impairments Neurological History: Reports: Hx Developmental Delay - intellectual disability , Hx Seizures - STATES WITH ALLERGIC REACTION TO TRAMADOL Denies: Hx Dementia, Other Neuro Impairments/Disorders Psychiatric History: Reports: Hx Anxiety - ON MEDICATION FOR, Hx Depression - ON MEDICATION FOR, Hx Post Traumatic Stress Disorder, Hx Inpatient Treatment, Hx Community Mental Health Tx, Hx Bipolar Disorder - pt manic, Hx Suicide Attempt - past med overdoses, Hx of Violent Episodes Against Others, Other Psychiatric Issues/Disorders - PSYCHOSIS NOS, HX OF PTSD, SCHIZOAFFECTIVE DISORDER, BORDERLINE PERSONALITY Denies: Hx Attention Deficit Hyperactivity Disorder, Hx Eating Disorder, Hx Panic Disorder, Hx Schizophrenia, Hx Substance Abuse - Surgical History Surgery Procedure, Year, and Place: 2011-CATARACT EXTRACTION. GALLBLADDER REMOVED Hx Anesthesia Reactions: No - Immunization History Date of Tetanus Vaccine: Unknown Date of Influenza Vaccine: 04/2017 Infectious Disease History: No Infectious Disease History: Denies: Hx Clostridium Difficile, Hx Hepatitis, Hx Human Immunodeficiency Virus (HIV), Hx of Known/Suspected MRSA, Hx Shingles, Hx Tuberculosis, Hx Known/ Suspected VRE, Hx Known/Suspected VRSA, History Other Infectious Disease, Traveled Outside the [place] in Last 30 Days - Family History Known Family History: Positive: Other - Anxiety and depression, [place] - father Negative: Cardiac Disease, Hypertension, Diabetes Family History: Depression and anxiety - Social History Alcohol Use: None Hx Substance Use: Yes Substance Use Type: Reports: None Hx Tobacco Use: Yes Smoking Status (MU): Former Smoker Type: Cigarettes Amount Used/How Often: Quit for 2 years, but started again in March. USING THE NICOTINE Length of Time of Smoking/Using Tobacco: 2 year ago Have You Smoked in the Last Year: Yes - Patient has smoked within the last 30 days Review of Systems Negative: Fever Negative: Epistaxis All Other Systems Reviewed And Are Negative: Yes Physical Exam - Summary Physical Exam Summary: VITAL SIGNS: Reviewed. GENERAL: Patient is a morbidly obese FEMALE who is lying comfortable in the stretcher. Patient is not in any acute respiratory distress. HEAD AND FACE: No signs of trauma. No ecchymosis, hematomas or skull depressions. No sinus tenderness. EYES: PERRLA, EOMI x 2, No injected conjunctiva, no nystagmus. EARS: Hearing grossly intact. Ear canals and tympanic membranes are within normal limits. MOUTH: Oropharynx within normal limits. NECK: Supple, trachea is midline, no adenopathy, no JVD, no carotid bruit, no c- spine tenderness, neck with full ROM. CHEST: Symmetric, no tenderness at palpation LUNGS: Clear to auscultation bilaterally. No wheezing or crackles. CVS: Regular rate and rhythm, S1 and S2 present, no murmurs or gallops appreciated. ABDOMEN: Soft, non-tender. No signs of distention. No rebound no guarding, and no masses palpated. Bowel sounds are normal. EXTREMITIES: FROM in all major joints, no edema, no cyanosis or clubbing. NEURO: Alert and oriented x 3. No acute neurological deficits. Speech is normal and follows commands. SKIN: Dry and warm Triage Information Reviewed: Yes Vital Signs On Initial Exam: Initial Vitals Temp Pulse Resp BP Pulse Ox 98.1 F 69 20 130/84 98 09/12/17 22:11 09/12/17 22:11 09/12/17 22:11 09/12/17 22:11 09/12/17 22:11 Vital Signs Reviewed: Yes Diagnostics - Vital Signs Vital Signs Temp Pulse Resp BP Pulse Ox 09/13/17 03:15 97.7 F 57 16 124/64 98 09/13/17 00:42 97.3 F 80 20 126/83 95 09/12/17 22:11 98.1 F 69 20 130/84 98 - Laboratory Lab Results: Lab Results 09/13/17 09/13/17 Range/Units 00:50 02:46 POC Glucose (mg/dL) 260 H 179 H (70-100) mg/dL Lab Statement: Any lab studies that have been ordered have been reviewed, and results considered in the medical decision making process. Diabetic Course/Dx - Course Assessment/Plan: The patient is a 52 year old female with a history of DM who is frequently seen in the emergency department. She presents today with elevated blood sugar in the 300s. She says she is unable to obtain strips. In the ED course, the patients glucose has decreased 179. She will be discharged home with primary care follow up. - Diagnoses Provider Diagnoses: Hyperglycemia, Back pain Discharge - Discharge Plan Condition: Stable Disposition: HOME Patient Education Materials: Back Pain (ED), Diabetic Hyperglycemia (ED) Referrals: Chapo Aguila MD [Primary Care Provider] - 3 Days Additional Instructions: Follow up with your primary care physician in three days. Return to the emergency department for any new or worsening symptoms. The documentation as recorded by the Lucero roth Thomas accurately reflects the service I personally performed and the decisions made by , Sendy Mcdowell MD.
== END 2017-09-13 03:15 | disposition home or self-care (01) ==
LOC: ED 22:00
DX: R73.9 Hyperglycemia, unspecified (principal); M54.9 Dorsalgia, unspecified; E11.9 Type 2 diabetes mellitus without complications; Z87.891 Personal history of nicotine dependence; Z86.79 Personal history of other diseases of the circulatory system; Z88.0 Allergy status to penicillin
CPT/HCPCS: 99282; A9270-GY

== ENCOUNTER 2017-10-02 17:08 | Emergency (ER) | payer MEDICARE, MEDICAID ==
--- OUTSIDE RECORDS SUMMARY | 2017-10-02 17:23 | XMS REPORT ---
:1965 External Reference #:[id number] Author Organization [facility] Address [address] [address] Phone [phone] Care Team Providers Name Role Phone Chapo Aguila MD Primary Care Physician Unavailable Payers Type Date Identification Numbers Payment Provider Subscriber Medicare Primary Effective: Policy Number: Medicare Cecilio Alfaro 1990 [id number] PayID: [id number] [address] [place] [address] [place] Policy Number: [id number] Medicaid Cecilio Alfaro Group Name: 1 [address] PayID: [id number] [place] [address] Problems Date Description Provider Status Onset: 06/13/2017 Type 2 diabetes mellitus Chapo Aguila M.D. Active Onset: 06/13/2017 Hypothyroidism Chapo Aguila M.D. Active Onset: 06/13/2017 Gastroesophageal reflux disease Chapo Aguila M.D. Active Onset: 06/13/2017 Mixed hyperlipidemia Chapo Aguila M.D. Active Onset: 06/13/2017 Extreme obesity with alveolar Chapo Aguila M.D. Active hypoventilation Onset: 06/13/2017 Bipolar I disorder Chapo Aguila M.D. Active Onset: 07/15/2017 Thoracic and lumbosacral neuritis Chapo Aguila M.D. Active Onset: 07/15/2017 Bipolar affective disorder, currently Chapo Aguila M.D. Active depressed, mild Onset: 08/11/2017 Benign neoplasm of colon Chapo Aguila M.D. Active Onset: 09/19/2017 Type II diabetes mellitus Chapo Aguila M.D. Active uncontrolled Family History Date Family Member(s) Problem(s) Comments [...] 05/10/2017 Tramadol altered mental status active 05/10/2017 [place] active Medications Medication Date Status Form Strength Qnty SIG Indications Ordering Provider Tresiarsen Flextouch 09/19 Active Solution 100Unit/M 15ml 40 units at E11.65 Pen-Injec L bedtime kenny Aguila M.D. Onetouch Ultra 09/09 Active Strips 100un test up to E11.9 Lawrence [place]antoja its three times DJarred Denson, daily last M.D.,FACP visit: Onetouch 08/31 Active Misc 100un test blood E11.9 Lawrence Ultrasofkenny Lanc its 2-3 a day Kamille Denson, or as M.D.,FACP needed Onetouch Ultra 08/31 Active Lancets 100un check bs [place] its twice daily Adelina Aguila Mucinex 08/28 Active Tablets 600mg 20tab 1 po bid Lawrence ER 12HR s prn Kamille Denson M.D.,FACP Tramadol HCL 08/26 Active Tablets 50mg 30tab 1 tab by Lawrence s mouth three D. Janiya, times a day M.D.,FACP BD Pen 08/24 Active Misc 32G X 4 120un use tid Lawrence Needle/Suzanna/Ultra mm its daily D. Janiya, Fine/32G X 4mm M.D.,FACP Fluconazole 08/22 Active Tablets 150mg 2tabs one by Lawrence mouth may Kamille Denson, repeat in 3 M.D.,FACP days as needed Janumet 07/15 Active Tablets 50-500mg 60tab 1 by mouth E11.9 s twice a day Adelina Aguila Depend Pant Extra 06/14 Active Misc 120un use 4 x a Chapo its day or as virginia AguilaDJarred Nicotrol 06/13 Active Inhaler 10mg 168un use 4-5 F17.210 its times daily Adelina Aguila Clotrimazole 06/13 Active Cream 1% 90gm apply twice B37.9 daily Adelina Aguila Acetaminophen-Cod 05/26 Active Tablets 300-30mg 20tab 1 tab by Marline [facility]es [facility] #3 s mouth every Duarte, 4-6 hours M.D. as needed for pain Ibuprofen Active Tablets 600mg as needed Home, /0000 LUZ Newman Ondansetron Active Tablets 8mg every 6-8 Home, /0000 Dispers hours as LUZ Newman needed Pantoprazole Active Tablets 40mg 30tab take [address] s tablet by Ayla, mouth once M.D. daily Lamotrigine Active Tablets 150mg take 1 [...] Active Tablets 50mcg 90tab 1 tab daily [place] Sodium /0000 s in the [place], empty M.D. stomach Levothyroxine Active Tablets 200mcg 90tab 1 tab daily [place] Sodium /0000 s am in the [place], empty M.D. stomach Atorvastatin Active Tablets 40mg 90tab take one Chapo Calcium / s tablet by Ayla, mouth every M.D. day Novalog Active 10 units Unknown /0000 before meals Onetouch Ultra Active Kit w/Device check bs Unknown twice daily Onetouch Ultra 08/31 Hx Strips 100un test up to E11.9 Lawrence its three times Kamille Denson, - daily last M.D.,[facility] 09/09 visit: 18 Doxycycline 08/28 Hx Capsules 100mg 13cap 1 by mouth Unknown Monohydrate s twice a day - x 7 days 09/04 Tresiba Flextouch 08/26 Hx Solution 200Unit/M 18ml 30u SC in Pen-Injec L Am and 70u Kamille Denson, - t SC in PM M.D.,[facility] 09/19 Azithromycin 08/26 Hx Tablets 250mg 2 tabs by mouth on - day 1; 1 08/31 tab by mouth every day on days 2-5 Lancets 28G 08/08 Hx Misc 28G 100un use with its one touch Ayla, - meter, M.D. 08/31 check bs daily Onetouch 08/08 Hx Strips 100un test twice its daily and Ayla, - as needed M.D. 08/31 Glucocom Blood 07/03 Hx Kit W/Device 1unit one touch Erik Glucose s glucometer [facility] Monitoring System - to measure M.D. 08/31 blood sugar daily Novolog Flexpen Hx Solution 100Unit/M Inject 15 Unknown / Pen-Injec L Units Subq t Three Times A Day With Meals Naproxen Hx Tablets 500mg 60tab twice daily christiane Aguila - M.D. 07/15 Lantus Solostar Hx Solution 100Unit/M 15ml 30 units SC Lawrence Pen-Injec L in Am, and Kamille Denson, - t 70 units SC M.D.,[facility] 08/26 a Pictonix Hx 40 mg daily Unknown / Vital Signs Date Vital Result Comment 09/19/2017 Weight 287.00 lb Heart Rate 83 /min BP Systolic 142 mmHg BP Diastolic 81 mmHg Body Temperature 98.2 F O2 % BldC Oximetry 97 % 08/17/2017 Weight 289.00 lb Heart Rate 90 /min BP Systolic Sitting 120 mmHg BP Diastolic Sitting 80 mmHg Body Temperature 97.6 F O2 % BldC Oximetry 98 % 08/11/2017 Height 67 inches 5'7" Weight 251.00 lb Heart Rate 92 /min BP Systolic Sitting 132 mmHg BP Diastolic Sitting 84 mmHg Body Temperature 97.3 F O2 % BldC Oximetry 94 % BMI (Body Mass Index) 39.3 kg/m2 07/15/2017 Weight 257.50 lb Heart Rate 96 [...] Result H/L Range Note Laboratory test finding 09/13/2017 Point of Care Glucose 179 mg/dL High 70 -100 1 Laboratory test finding 09/13/2017 Point of Care Glucose 260 mg/dL High 70 -100 2 Comp Metabolic Panel 08/29/2017 Sodium 136 mmol/L 133-145 Potassium 4.9 mmol/L 3.5-5.0 Chloride 104 mmol/L 101-111 Co2 Carbon Dioxide 27 mmol/L 22-32 Anion Gap 5 mmol/L 2-11 Glucose 53 mg/dL Low 70-100 Blood Urea Nitrogen 18 mg/dL 6-24 Creatinine 1.20 mg/dL High 0.51-0.95 BUN/Creatinine Ratio 15.0 8-20 Calcium 8.7 mg/dL 8.6-10.3 Total Protein 6.1 g/dL Low 6.4-8.9 Albumin 3.2 g/dL 3.2-5.2 Globulin 2.9 g/dL 2-4 Albumin/Globulin Ratio 1.1 1-3 Total Bilirubin 0.20 mg/dL 0.2-1.0 Alkaline Phosphatase 86 U/L 34-104 Alt 18 U/L 7-52 Ast 24 U/L 13-39 Egfr Non- 47.4 >60 Egfr 60.9 >60 3 Laboratory test finding 08/29/2017 Lipase < 10 U/L Low 11.0-82.0 CRP High Sensitivity 1.79 mg/L 4 Troponin-I (TnI) 0.00 ng/mL <0.04 CBC Auto Diff 08/29/2017 White Blood Count 9.1 10^3/uL 3.5-10.8 Red Blood Count 4.06 10^6/uL 4.0-5.4 Hemoglobin 10.8 g/dL Low 12.0-16.0 Hematocrit 33 % Low 35-47 Mean Corpuscular Volume 82 fL 80-97 Mean Corpuscular Hemoglobin 27 pg 27-31 Mean Corpuscular HGB Conc 33 g/dL 31-36 Red Cell Distribution Width 19 % High 10.5-15 Platelet Count 173 10^3/uL 150-450 Mean Platelet Volume 10 um3 7.4-10.4 Abs Neutrophils 5.1 10^3/uL 1.5-7.7 Abs Lymphocytes 2.5 10^3/uL 1.0-4.8 Abs Monocytes 0.6 10^3/uL 0-0.8 Abs Eosinophils 1.0 10^3/uL High 0-0.6 Abs Basophils 0 10^3/uL 0-0.2 Abs Nucleated RBC 0 10^3/uL Granulocyte % 56.0 % 38-83 Lymphocyte % 27.1 % 25-47 Monocyte % 6.0 % 1-9 Eosinophil % 10.6 % High 0-6 Basophil % 0.3 % 0-2 Nucleated Red Blood Cells % 0 Laboratory test finding 08/29/2017 B-Type Natriuretic 21 pg/mL 5 Peptide BNP CBC Auto Diff 08/26/2017 White Blood Count 9.0 10^3/uL 3.5-10.8 Red Blood Count 4.42 10^6/uL 4.0-5.4 Hemoglobin 11.9 g/dL Low 12.0-16.0 Hematocrit 37 % 35-47 Mean Corpuscular Volume 83 fL 80-97 Mean Corpuscular Hemoglobin 27 pg 27-31 Mean Corpuscular HGB Conc 33 g/dL 31-36 Red Cell Distribution Width 19 % High 10.5-15 Platelet Count 187 10^3/uL 150-450 Mean Platelet Volume 9 um3 7.4-10.4 Abs Neutrophils 5.9 10^3/uL 1.5-7.7 Abs Lymphocytes 1.6 10^3/uL 1.0-4.8 Abs Monocytes 0.4 10^3/uL 0-0.8 Abs Eosinophils 1.0 10^3/uL High 0-0.6 Abs Basophils 0 10^3/uL 0-0.2 Abs Nucleated RBC 0 10^3/uL Granulocyte % 65.5 % 38-83 Lymphocyte % 17.9 % Low 25-47 Monocyte % 4.6 % 1-9 Eosinophil % 11.5 % High 0-6 Basophil % 0.5 % 0-2 Nucleated Red Blood Cells % 0 Laboratory test finding 08/26/2017 Troponin-I (TnI) 0.01 ng/mL <0.04 Comp Metabolic Panel 08/26/2017 Sodium 139 mmol/L 133-145 Potassium 5.0 mmol/L 3.5-5.0 Chloride 105 mmol/L 101-111 Co2 Carbon Dioxide 29 mmol/L 22-32 Anion Gap 5 mmol/L 2-11 Glucose 171 mg/dL High 70-100 Blood Urea Nitrogen 12 mg/dL 6-24 Creatinine 0.94 mg/dL 0.51-0.95 BUN/Creatinine Ratio 12.8 8-20 Calcium 9.1 mg/dL 8.6-10.3 Total Protein 6.7 g/dL 6.4-8.9 Albumin 3.5 g/dL 3.2-5.2 Globulin 3.2 g/dL 2-4 Albumin/Globulin Ratio 1.1 1-3 Total Bilirubin 0.20 mg/dL 0.2-1.0 Alkaline Phosphatase 106 U/L High 34-104 Alt 20 U/L 7-52 Ast 27 U/L 13-39 Egfr Non- 62.8 >60 Egfr 80.7 >60 6 Inr/Protime 08/26/2017 Inr 0.82 0.77-1.02 Laboratory test finding 08/26/2017 Partial Thrombo Time 27.7 seconds 26.0 -36.3 PTT Laboratory test finding 08/25/2017 C Reactive Protein 3.27 mg/L < 5.00 7 Comp Metabolic Panel 08/25/2017 Sodium 134 mmol/L 133-145 Potassium 4.8 mmol/L 3.5-5.0 Chloride 101 mmol/L 101-111 Co2 Carbon Dioxide 29 mmol/L 22-32 Anion Gap 4 mmol/L 2-11 Glucose 366 mg/dL High 70-100 Blood Urea Nitrogen 13 mg/dL 6-24 Creatinine 0.87 mg/dL 0.51-0.95 BUN/Creatinine Ratio 14.9 8-20 Calcium 8.9 mg/dL 8.6-10.3 Total Protein 6.6 g/dL 6.4-8.9 Albumin 3.4 g/dL 3.2-5.2 Globulin 3.2 g/dL 2-4 Albumin/Globulin Ratio 1.1 1-3 Total Bilirubin 0.20 mg/dL 0.2-1.0 Alkaline Phosphatase 108 U/L High 34-104 Alt 19 U/L 7-52 Ast 22 U/L 13-39 Egfr Non- 68.6 >60 Egfr 88.3 >60 8 CBC Auto Diff 08/25/2017 White Blood Count 8.9 10^3/uL 3.5-10.8 Red Blood Count 4.33 10^6/uL 4.0-5.4 Hemoglobin 11.5 g/dL Low 12.0-16.0 Hematocrit 35 % 35-47 Mean Corpuscular Volume 81 fL 80-97 Mean Corpuscular Hemoglobin 27 pg 27-31 Mean Corpuscular HGB Conc 33 g/dL 31-36 Red Cell Distribution Width 18 % High 10.5-15 Platelet Count 186 10^3/uL 150-450 Mean Platelet Volume 9 um3 7.4-10.4 Abs Neutrophils 5.5 10^3/uL 1.5-7.7 Abs Lymphocytes 2.0 10^3/uL 1.0-4.8 Abs Monocytes 0.4 10^3/uL 0-0.8 Abs Eosinophils 0.9 10^3/uL High 0-0.6 Abs Basophils 0 10^3/uL 0-0.2 Abs Nucleated RBC 0 10^3/uL Granulocyte % 62.2 % 38-83 Lymphocyte % 22.3 % Low 25-47 Monocyte % 5.0 % 1-9 Eosinophil % 10.0 % High 0-6 Basophil % 0.5 % 0-2 Nucleated Red Blood Cells % 0 Venous Blood Gas 08/25/2017 Venous Blood pH 7.48 High 7.33-7.43 Venous Pco2 31 mmHg Low 41-51 Venous Po2 98 mmHg High 35-45 Venous O2 Saturation 95.3 % High 70-80 Venous Blood Base Excess 0.1 0-4 9 Venous Bicarbonate Hco3 25.0 mmol/L 24-28 Laboratory test finding 08/25/2017 Point of Care Glucose 289 mg/dL High 70 -100 10 Urinalysis Profile 08/25/2017 Urine Color Yellow Urine Appearance Clear Urine Specific [place] 1.010 1.010-1.030 Urine pH 5.0 5-9 Urine Urobilinogen Negative Negative Urine Ketones Negative Negative Urine Protein Negative Negative Urine Leukocytes Negative Negative Urine Blood Negative Negative Urine Nitrite Negative Negative Urine Bilirubin Negative Negative Urine Glucose 3+(>=500 mg/dL) Negative Laboratory test finding 08/25/2017 Point of Care Glucose 157 mg/dL High 70 -100 11 Laboratory test finding 08/23/2017 Point of Care Glucose 224 mg/dL High 70 -100 12 Laboratory test finding 08/22/2017 Magnesium 2.0 mg/dL 1.9-2.7 Creatine Kinase(CK) 121 U/L 10-223 C Reactive Protein 4.62 mg/L < 5.00 13 Troponin-I (TnI) 0.01 ng/mL <0.04 Comp Metabolic Panel 08/22/2017 Sodium 131 mmol/L Low 133-145 Potassium 4.6 mmol/L 3.5-5.0 Chloride 98 mmol/L Low 101-111 Co2 Carbon Dioxide 29 mmol/L 22-32 Anion Gap 4 mmol/L 2-11 Blood Urea Nitrogen 15 mg/dL 6-24 Creatinine 0.91 mg/dL 0.51-0.95 BUN/Creatinine Ratio 16.5 8-20 Calcium 9.0 mg/dL 8.6-10.3 Total Protein 6.5 g/dL 6.4-8.9 Albumin 3.3 g/dL 3.2-5.2 Globulin 3.2 g/dL 2-4 Albumin/Globulin Ratio 1.0 1-3 Total Bilirubin 0.30 mg/dL 0.2-1.0 Alkaline Phosphatase 112 U/L High 34-104 Alt 15 U/L 7-52 Ast 16 U/L 13-39 Egfr Non- 65.2 >60 Egfr 83.8 >60 14 Glucose 543 mg/dL High 70-100 15 Laboratory test finding 08/22/2017 Lactic Acid 1.3 mmol/L 0.5-2.0 16 Inr/Protime 08/22/2017 Inr 0.91 0.77-1.02 Venous Blood Gas 08/22/2017 Venous Blood pH 7.42 7.33-7.43 Venous Pco2 49 mmHg 41-51 Venous Po2 36 mmHg 35-45 Venous O2 Saturation 78.1 % 70-80 Venous Blood Base Excess 6.3 High 0-4 17 Venous Bicarbonate Hco3 29.4 mmol/L High 24-28 CBC Auto Diff 08/22/2017 White Blood Count 8.9 10^3/uL 3.5-10.8 Red Blood Count 4.19 10^6/uL 4.0-5.4 Hemoglobin 11.2 g/dL Low 12.0-16.0 Hematocrit 34 % Low 35-47 Mean Corpuscular Volume 82 fL 80-97 Mean Corpuscular Hemoglobin 27 pg 27-31 Mean Corpuscular HGB Conc 33 g/dL 31-36 Red Cell Distribution Width 18 % High 10.5-15 Platelet Count 209 10^3/uL 150-450 Mean Platelet Volume 9 um3 7.4-10.4 Abs Neutrophils 5.2 10^3/uL 1.5-7.7 Abs Lymphocytes 2.3 10^3/uL 1.0-4.8 Abs Monocytes 0.5 10^3/uL 0-0.8 Abs Eosinophils 0.9 10^3/uL High 0-0.6 Abs Basophils 0.1 10^3/uL 0-0.2 Abs Nucleated RBC 0 10^3/uL Granulocyte % 58.2 % 38-83 Lymphocyte % 25.2 % 25-47 Monocyte % 5.7 % 1-9 Eosinophil % 10.1 % High 0-6 Basophil % 0.8 % 0-2 Nucleated Red Blood Cells % 0.1 Urine Culture And Sensitivities 08/22/2017 Urine Culture SEE RESULT BELOW 18 Urinalysis Profile 08/22/2017 Urine Color Yellow Urine Appearance Cloudy Urine Specific [place] 1.023 1.010-1.030 Urine pH 6.0 5-9 Urine Urobilinogen Negative Negative Urine Ketones Negative Negative Urine Protein Negative Negative Urine Leukocytes Trace Negative Urine Blood 1+ Negative Urine Nitrite Negative Negative Urine Bilirubin Negative Negative Urine Glucose 3+(>=500 mg/dL) Negative Urine White Blood Cell 1+(6-10/hpf) Absent Urine Red Blood Cell 3+(>10/hpf) Absent Urine Bacteria 2+ Absent Urine Squamous Epithelial Cell Present Absent Laboratory test 08/22/2017 Point of Care Glucose > 444 mg/dL High 70- 100 19 finding Laboratory test 08/22/2017 Glucose 417 mg/dL High 70-100 finding Laboratory test 08/18/2017 Point of Care Glucose 180 mg/dL High 70-100 20 finding Laboratory test 08/17/2017 Point of Care Glucose > 444 mg/dL High 70- 100 21 finding Laboratory test 08/17/2017 Acetaminophen < 15 g/mL 22 finding Alcohol < 10 mg/dL <10 Salicylate < 2.50 mg/dL <30 TSH (Thyroid Stim Horm) 2.76 mcIU/mL 0.34-5.60 Lamotrigine (Lamictal) 4.2 g/mL 2.5 - 15.0 23 Comp Metabolic Panel 08/17/2017 Sodium 133 mmol/L 133-145 Potassium 4.9 mmol/L 3.5-5.0 Chloride 101 mmol/L 101-111 Co2 Carbon Dioxide 25 mmol/L 22-32 Anion Gap 7 mmol/L 2-11 Blood Urea Nitrogen 9 mg/dL 6-24 Creatinine 0.83 mg/dL 0.51-0.95 BUN/Creatinine Ratio 10.8 8-20 Calcium 8.7 mg/dL 8.6-10.3 Total Protein 7.5 g/dL 6.4-8.9 Albumin 3.7 g/dL 3.2-5.2 Globulin 3.8 g/dL 2-4 Albumin/Globulin Ratio 1.0 1-3 Total Bilirubin 0.20 mg/dL 0.2-1.0 Alkaline Phosphatase 137 U/L High 34-104 Alt 20 U/L 7-52 Ast 21 U/L 13-39 Egfr Non- 72.5 >60 Egfr 93.2 >60 24 Glucose 543 mg/dL High 70-100 25 CBC Auto Diff 08/17/2017 White Blood Count 10.8 10^3/uL 3.5-10.8 Red Blood Count 4.74 10^6/uL 4.0-5.4 Hemoglobin 12.4 g/dL 12.0-16.0 Hematocrit 39 % 35-47 Mean Corpuscular Volume 82 fL 80-97 Mean Corpuscular Hemoglobin 26 pg Low 27-31 Mean Corpuscular HGB Conc 32 g/dL 31-36 Red Cell Distribution Width 18 % High 10.5-15 Platelet Count 271 10^3/uL 150-450 Mean Platelet Volume 9 um3 7.4-10.4 Abs Neutrophils 7.3 10^3/uL 1.5-7.7 Abs Lymphocytes 2.3 10^3/uL 1.0-4.8 Abs Monocytes 0.5 10^3/uL 0-0.8 Abs Eosinophils 0.7 10^3/uL High 0-0.6 Abs Basophils 0.1 10^3/uL 0-0.2 Abs Nucleated RBC 0 10^3/uL Granulocyte % 67.3 % 38-83 Lymphocyte % 21.6 % Low 25-47 Monocyte % 4.4 % 1-9 Eosinophil % 6.0 % 0-6 Basophil % 0.7 % 0-2 Nucleated Red Blood Cells % 0 Venous Blood Gas 08/17/2017 Venous Blood pH 7.36 7.33-7.43 Venous Pco2 48 mmHg 41-51 Venous Po2 29 mmHg Low 35-45 Venous O2 Saturation 59.9 % Low 70-80 Venous Blood Base Excess 1.1 0-4 26 Venous Bicarbonate Hco3 24.9 mmol/L 24-28 Laboratory test 08/17/2017 Point of Care > 444 mg/dL High 70-100 27 finding Glucose Laboratory test 08/17/2017 Point of Care 276 mg/dL High 70-100 28 finding Glucose Urine Drug SCR ED 08/17/2017 Amphetamine Ur None Detected None Detect & Pain Clinic Screen Barbiturates Urine Screen None Detected None Detect Benzodiazepine Urine Screen None Detected None Detect Urine Cannabinoids Screen None Detected None Detect Urine Cocaine Screen None Detected None Detect Urine Opiates Screen None Detected None Detect Urine Phencyclidine Screen None Detected None Detect 29 Urinalysis Profile 08/17/2017 Urine Color Yellow Urine Appearance Cloudy Urine Specific [place] 1.016 1.010-1.030 Urine pH 5.0 5-9 Urine Urobilinogen Negative Negative Urine Ketones Negative Negative Urine Protein Negative Negative Urine Leukocytes Negative Negative Urine Blood Negative Negative Urine Nitrite Negative Negative Urine Bilirubin Negative Negative Urine Glucose 3+(>=500 mg/dL) Negative Laboratory test 08/09/2017 Point of Care Glucose 266 mg/dL High 70-100 30 finding Laboratory test 08/08/2017 Acetaminophen < 15 g/mL 31 finding Alcohol < 10 mg/dL <10 Salicylate < 2.50 mg/dL <30 TSH (Thyroid Stim Horm) 2.67 mcIU/mL 0.34-5.60 Lamotrigine (Lamictal) 2.5 g/mL 2.5 - 15.0 32 Comp Metabolic Panel 08/08/2017 Sodium 136 mmol/L 133-145 Potassium 4.3 mmol/L 3.5-5.0 Chloride 100 mmol/L Low 101-111 Co2 Carbon Dioxide 29 mmol/L 22-32 Anion Gap 7 mmol/L 2-11 Glucose 341 mg/dL High 70-100 Blood Urea Nitrogen 18 mg/dL 6-24 Creatinine 0.81 mg/dL 0.51-0.95 BUN/Creatinine Ratio 22.2 High 8-20 Calcium 9.5 mg/dL 8.6-10.3 Total Protein 7.8 g/dL 6.4-8.9 Albumin 3.7 g/dL 3.2-5.2 Globulin 4.1 g/dL High 2-4 Albumin/Globulin Ratio 0.9 Low 1-3 Total Bilirubin 0.20 mg/dL 0.2-1.0 Alkaline Phosphatase 158 U/L High 34-104 Alt 15 U/L 7-52 Ast 16 U/L 13-39 Egfr Non- 74.5 >60 Egfr 95.9 >60 33 CBC Auto Diff 08/08/2017 White Blood Count 11.9 10^3/uL High 3.5-10.8 Red Blood Count 4.78 10^6/uL 4.0-5.4 Hemoglobin 12.3 g/dL 12.0-16.0 Hematocrit 39 % 35-47 Mean Corpuscular Volume 81 fL 80-97 Mean Corpuscular Hemoglobin 26 pg Low 27-31 Mean Corpuscular HGB Conc 32 g/dL 31-36 Red Cell Distribution Width 18 % High 10.5-15 Platelet Count 298 10^3/uL 150-450 Mean Platelet Volume 9 um3 7.4-10.4 Abs Neutrophils 7.4 10^3/uL 1.5-7.7 Abs Lymphocytes 3.1 10^3/uL 1.0-4.8 Abs Monocytes 0.6 10^3/uL 0-0.8 Abs Eosinophils 0.7 10^3/uL High 0-0.6 Abs Basophils 0.1 10^3/uL 0-0.2 Abs Nucleated RBC 0 10^3/uL Granulocyte % 62.0 % 38-83 Lymphocyte % 25.9 % 25-47 Monocyte % 5.2 % 1-9 Eosinophil % 5.7 % 0-6 Basophil % 1.2 % 0-2 Nucleated Red Blood Cells % 0 Urine Drug SCR ED 08/08/2017 Amphetamine Ur Screen None Detected None Detect & Pain Clinic Barbiturates Urine Screen None Detected None Detect Benzodiazepine Urine Screen None Detected None Detect Urine Cannabinoids Screen None Detected None Detect Urine Cocaine Screen None Detected None Detect Urine Opiates Screen None Detected None Detect Urine Phencyclidine Screen None Detected None Detect 34 Urinalysis Profile 08/08/2017 Urine Color Yellow Urine Appearance Cloudy Urine Specific [place] 1.022 1.010-1.030 Urine pH 6.0 5-9 Urine Urobilinogen Negative Negative Urine Ketones Negative Negative Urine Protein Negative Negative Urine Leukocytes Negative Negative Urine Blood Negative Negative Urine Nitrite Negative Negative Urine Bilirubin Negative Negative Urine Glucose 3+(>=500 mg/dL) Negative Laboratory test 08/04/2017 Point of Care Glucose 258 mg/dL High 70-100 35 finding Laboratory test 08/04/2017 Point of Care Glucose 175 mg/dL High 70-100 36 finding Laboratory test 08/04/2017 Point of Care Glucose 284 mg/dL High 70-100 37 finding Laboratory test 08/03/2017 Acetaminophen < 15 g/mL 38 finding Alcohol < 10 mg/dL <10 Salicylate < 2.50 mg/dL <30 TSH (Thyroid Stim Horm) 0.60 mcIU/mL 0.34-5.60 Comp Metabolic Panel 08/03/2017 Sodium 132 mmol/L Low 133-145 Potassium 4.6 mmol/L 3.5-5.0 Chloride 98 mmol/L Low 101-111 Co2 Carbon Dioxide 27 mmol/L 22-32 Anion Gap 7 mmol/L 2-11 Glucose 399 mg/dL High 70-100 Blood Urea Nitrogen 14 mg/dL 6-24 Creatinine 0.88 mg/dL 0.51-0.95 BUN/Creatinine Ratio 15.9 8-20 Calcium 8.9 mg/dL 8.6-10.3 Total Protein 7.4 g/dL 6.4-8.9 Albumin 3.4 g/dL 3.2-5.2 Globulin 4.0 g/dL 2-4 Albumin/Globulin Ratio 0.9 Low 1-3 Total Bilirubin 0.20 mg/dL 0.2-1.0 Alkaline Phosphatase 183 U/L High 34-104 Alt 20 U/L 7-52 Ast 21 U/L 13-39 Egfr Non- 67.7 >60 Egfr 87.1 >60 39 CBC Auto Diff 08/03/2017 White Blood Count 10.9 10^3/uL High 3.5-10.8 Red Blood Count 4.61 10^6/uL 4.0-5.4 Hemoglobin 12.1 g/dL 12.0-16.0 Hematocrit 37 % 35-47 Mean Corpuscular Volume 81 fL 80-97 Mean Corpuscular Hemoglobin 26 pg Low 27-31 Mean Corpuscular HGB Conc 32 g/dL 31-36 Red Cell Distribution Width 18 % High 10.5-15 Platelet Count 241 10^3/uL 150-450 Mean Platelet Volume 9 um3 7.4-10.4 Abs Neutrophils 7.2 10^3/uL 1.5-7.7 Abs Lymphocytes 2.4 10^3/uL 1.0-4.8 Abs Monocytes 0.6 10^3/uL 0-0.8 Abs Eosinophils 0.6 10^3/uL 0-0.6 Abs Basophils 0.1 10^3/uL 0-0.2 Abs Nucleated RBC 0 10^3/uL Granulocyte % 65.9 % 38-83 Lymphocyte % 22.1 % Low 25-47 Monocyte % 5.9 % 1-9 Eosinophil % 5.5 % 0-6 Basophil % 0.6 % 0-2 Nucleated Red Blood Cells % 0 Urine Culture And 08/03/2017 Urine Culture SEE RESULT BELOW 40 Sensitivities Urine Drug SCR ED 08/03/2017 Amphetamine Ur None Detected None Detect & Pain Clinic Screen Barbiturates Urine Screen None Detected None Detect Benzodiazepine Urine Screen None Detected None Detect Urine Cannabinoids Screen None Detected None Detect Urine Cocaine Screen None Detected None Detect Urine Opiates Screen None Detected None Detect Urine Phencyclidine Screen None Detected None Detect 41 Urinalysis Profile 08/03/2017 Urine Color Yellow Urine Appearance Cloudy Urine Specific [place] 1.012 1.010-1.030 Urine pH 5.0 5-9 Urine Urobilinogen Negative Negative Urine Ketones Negative Negative Urine Protein Negative Negative Urine Leukocytes Trace Negative Urine Blood Negative Negative Urine Nitrite Negative Negative Urine Bilirubin Negative Negative Urine Glucose 3+(>=500 mg/dL) Negative Urine White Blood Cell Trace(0-5/hpf) Absent Urine Red Blood Cell Absent Absent Urine Bacteria 1+ Absent Urine Squamous Epithelial Cell Present Absent Urine Amorphous Crystals Present Absent Laboratory test finding 08/02/2017 Troponin-I (TnI) 0.01 ng/mL <0.04 CBC Auto Diff 08/02/2017 White Blood Count 13.8 10^3/uL High 3.5-10.8 Red Blood Count 4.64 10^6/uL 4.0-5.4 Hemoglobin 12.2 g/dL 12.0-16.0 Hematocrit 37 % 35-47 Mean Corpuscular Volume 80 fL 80-97 Mean Corpuscular Hemoglobin 26 pg Low 27-31 Mean Corpuscular HGB Conc 33 g/dL 31-36 Red Cell Distribution Width 17 % High 10.5-15 Platelet Count 244 10^3/uL 150-450 Mean Platelet Volume 9 um3 7.4-10.4 Abs Neutrophils 10.2 10^3/uL High 1.5-7.7 Abs Lymphocytes 2.3 10^3/uL 1.0-4.8 Abs Monocytes 0.6 10^3/uL 0-0.8 Abs Eosinophils 0.6 10^3/uL 0-0.6 Abs Basophils 0.1 10^3/uL 0-0.2 Abs Nucleated RBC 0.01 10^3/uL Granulocyte % 73.7 % 38-83 Lymphocyte % 17.0 % Low 25-47 Monocyte % 4.6 % 1-9 Eosinophil % 4.0 % 0-6 Basophil % 0.7 % 0-2 Nucleated Red Blood Cells % 0 Comp Metabolic Panel 08/02/2017 Sodium 133 mmol/L 133-145 Potassium 4.7 mmol/L 3.5-5.0 Chloride 101 mmol/L 101-111 Co2 Carbon Dioxide 26 mmol/L 22-32 Anion Gap 6 mmol/L 2-11 Glucose 168 mg/dL High 70-100 Blood Urea Nitrogen 16 mg/dL 6-24 Creatinine 0.79 mg/dL 0.51-0.95 BUN/Creatinine Ratio 20.3 High 8-20 Calcium 9.7 mg/dL 8.6-10.3 Total Protein 7.5 g/dL 6.4-8.9 Albumin 3.6 g/dL 3.2-5.2 Globulin 3.9 g/dL 2-4 Albumin/Globulin Ratio 0.9 Low 1-3 Total Bilirubin 0.20 mg/dL 0.2-1.0 Alkaline Phosphatase 203 U/L High 34-104 Alt 25 U/L 7-52 Ast 33 U/L 13-39 Egfr Non- 76.7 >60 Egfr 98.7 >60 42 Laboratory test 08/02/2017 Troponin-I (TnI) 0.03 ng/mL <0.04 finding Urine Culture And 08/01/2017 Urine Culture SEE RESULT 43, 44 Sensitivities BELOW Laboratory test 06/13/2017 Hemoglobin A1c 9.2 High 5-7 finding Laboratory test 06/13/2017 C-Peptide <pending&gt finding ; Glutamic Acid Decarboxylase <pending> Laboratory test finding 06/13/2017 TSH (Thyroid Stim Horm) <pending> Cortisol <pending> Laboratory test finding 06/03/2017 Point of Care 184 mg/dL High 70-100 45 Glucose Laboratory test finding 06/03/2017 Point of Care 256 mg/dL High 70-100 46 Glucose Laboratory test finding 06/03/2017 Point of Care 329 mg/dL High 70-100 47 Glucose Laboratory test finding 06/03/2017 Point of Care 384 mg/dL High 70-100 48 Glucose Laboratory test finding 06/03/2017 Point of Care > 444 mg/dL High 70- 100 49 Glucose Laboratory test finding 06/03/2017 Point of Care > 444 mg/dL High 70- 100 50 Glucose 1 Phthalic Acid Purifier: [id number] 2 Phthalic Acid Purifier: [id number] 3 Because ethnic data is not always readily available, this report includes an eGFR for both -Americans and non- Americans. The National Kidney Disease Education Program (NKDEP) does not endorse the use of the MDRD equation for patients that are not between the ages of 18 and 70, are , have extremes of body size, muscle mass, or nutritional status, or are non- or non-. According to the National Kidney Foundation, irrespective of diagnosis, the stage of the disease is based on the level of kidney function: Stage Description GFR(mL/min/1.73 m(2)) 1 Kidney damage with normal or decreased GFR 90 2 Kidney damage with mild decrease in GFR 60-89 3 Moderate decrease in GFR 30-59 4 Severe decrease in GFR 15-29 5 Kidney failure <15 (or dialysis) 4 Low risk: <1.00 Average risk: 1.00-3.00 High risk: >3.00 5 >100 to <200 pg/mL: likely compensated congestive heart failure (CHF) 200 to 400 pg/mL: likely moderate CHF >400 pg/mL: likely moderate to severe CHF 6 Because ethnic data is not always readily available, this report includes an eGFR for both -Americans and non- Americans. The National Kidney Disease Education Program (NKDEP) does not endorse the use of the MDRD equation for patients that are not between the ages of 18 and 70, are , have extremes of body size, muscle mass, or nutritional status, or are non- or non-. According to the National Kidney Foundation, irrespective of diagnosis, the stage of the disease is based on the level of kidney function: Stage Description GFR(mL/min/1.73 m(2)) 1 Kidney damage with normal or decreased GFR 90 2 Kidney damage with mild decrease in GFR 60-89 3 Moderate decrease in GFR 30-59 4 Severe decrease in GFR 15-29 5 Kidney failure <15 (or dialysis) 7 Acute inflammation: >10.00 8 Because ethnic data is not always readily available, this report includes an eGFR for both -Americans and non- Americans. The National Kidney Disease Education Program (NKDEP) does not endorse the use of the MDRD equation for patients that are not between the ages of 18 and 70, are , have extremes of body size, muscle mass, or nutritional status, or are non- or non-. According to the National Kidney Foundation, irrespective of diagnosis, the stage of the disease is based on the level of kidney function: Stage Description GFR(mL/min/1.73 m(2)) 1 Kidney damage with normal or decreased GFR 90 2 Kidney damage with mild decrease in GFR 60-89 3 Moderate decrease in GFR 30-59 4 Severe decrease in GFR 15-29 5 Kidney failure <15 (or dialysis) 9 Reference ranges based on room air. 10 Phthalic Acid Purifier: [id number] 11 Phthalic Acid Purifier: [id number] 12 Phthalic Acid Purifier: [id number] 13 Acute inflammation: >10.00 14 Because ethnic data is not always readily available, this report includes an eGFR for both -Americans and non- Americans. The National Kidney Disease Education Program (NKDEP) does not endorse the use of the MDRD equation for patients that are not between the ages of 18 and 70, are , have extremes of body size, muscle mass, or nutritional status, or are non- or non-. According to the National Kidney Foundation, irrespective of diagnosis, the stage of the disease is based on the level of kidney function: Stage Description GFR(mL/min/1.73 m(2)) 1 Kidney damage with normal or decreased GFR 90 2 Kidney damage with mild decrease in GFR 60-89 3 Moderate decrease in GFR 30-59 4 Severe decrease in GFR 15-29 5 Kidney failure <15 (or dialysis) 15 Critical Result [id number] Called to [id number] at: 21:48:40 by:[id number] Read back by:[id number] 16 [place] Severe Sepsis and Septic Shock Management Bundle Measure requires all lactic acids initially measuring >2.0 mmol/L be repeated. 17 Reference ranges based on room air. 18 SEE RESULT BELOW Name: CECILIO ALFARO : [address]: Violeta Yusuf MD Acct: [id number] Unit: [id number] AGE: 52 Location: ED Re08/22/17 SEX: F Status: DEP ER SPEC: [id number] ANKUR: 08/22/[address] [facility] [address]: Violeta Yusuf MD REQ: [id number] RECD: 08/22/17 STATUS: TASHA BARFIELD DR: Chapo Aguila MD _ SOURCE: URINE SPDESC: ORDERED: Urine Culture Procedure Result Reported Site Urine Culture Final 08/23/17- 1607 ML Mixed seema; possible contamination. Suggest resubmission. * ML - MAIN LAB ([facility]) . END OF REPORT * ML=Testing performed at Main Lab DEPARTMENT OF PATHOLOGY, [address] [place] [address] Tay Gamboa M.D. Director [facility] # [id number] 19 Phthalic Acid Purifier: [id number] 20 Phthalic Acid Purifier: [id number] 21 Phthalic Acid Purifier: [id number] 22 Therapeutic concentration: <50 ug/mL Toxic concentration: >120 ug/mL 23 ADDITIONAL INFORMATION This test was developed and its performance characteristics determined by [facility] in a manner consistent with CLIA requirements. This test has not been cleared or approved by the U.S. Food and Drug Administration. Test Performed by: [facility] [address] [place] [address] 24 Because ethnic data is not always readily available, this report includes an eGFR for both -Americans and non- Americans. The National Kidney Disease Education Program (NKDEP) does not endorse the use of the MDRD equation for patients that are not between the ages of 18 and 70, are , have extremes of body size, muscle mass, or nutritional status, or are non- or non-. According to the National Kidney Foundation, irrespective of diagnosis, the stage of the disease is based on the level of kidney function: Stage Description GFR(mL/min/1.73 m(2)) 1 Kidney damage with normal or decreased GFR 90 2 Kidney damage with mild decrease in GFR 60-89 3 Moderate decrease in GFR 30-59 4 Severe decrease in GFR 15-29 5 Kidney failure <15 (or dialysis) 25 Critical Result [id number] Called to [id number] at: 18:00:03 by:[id number] Read back by:[email or web address] 26 Reference ranges based on room air. 27 Phthalic Acid Purifier: [id number] 28 Phthalic Acid Purifier: [id number] 29 The urine specimen was tested at the listed cutoffs: Drug class test level (ng/mL) Amphetamines 500 Barbiturates 200 Benzodiazepine metabolites 200 Cocaine metabolites 150 Cannabinoids 50 Opiates 300 Pcp 25 Specimen was received without chain of custody. Results should be used for medical purposes only. 30 Phthalic Acid Purifier: [id number] 31 Therapeutic concentration: <50 ug/mL Toxic concentration: >120 ug/mL 32 ADDITIONAL INFORMATION This test was developed and its performance characteristics determined by [facility] in a manner consistent with CLIA requirements. This test has not been cleared or approved by the U.S. Food and Drug Administration. Test Performed by: [facility] [address] [place] [address] 33 Because ethnic data is not always readily available, this report includes an eGFR for both -Americans and non- Americans. The National Kidney Disease Education Program (NKDEP) does not endorse the use of the MDRD equation for patients that are not between the ages of 18 and 70, are , have extremes of body size, muscle mass, or nutritional status, or are non- or non-. According to the National Kidney Foundation, irrespective of diagnosis, the stage of the disease is based on the level of kidney function: Stage Description GFR(mL/min/1.73 m(2)) 1 Kidney damage with normal or decreased GFR 90 2 Kidney damage with mild decrease in GFR 60-89 3 Moderate decrease in GFR 30-59 4 Severe decrease in GFR 15-29 5 Kidney failure <15 (or dialysis) 34 The urine specimen was tested at the listed cutoffs: Drug class test level (ng/mL) Amphetamines 500 Barbiturates 200 Benzodiazepine metabolites 200 Cocaine metabolites 150 Cannabinoids 50 Opiates 300 Pcp 25 Specimen was received without chain of custody. Results should be used for medical purposes only. 35 Phthalic Acid Purifier: [id number] 36 Phthalic Acid Purifier: [id number] 37 Phthalic Acid Purifier: [id number] 38 Therapeutic concentration: <50 ug/mL Toxic concentration: >120 ug/mL 39 Because ethnic data is not always readily available, this report includes an eGFR for both -Americans and non- Americans. The National Kidney Disease Education Program (NKDEP) does not endorse the use of the MDRD equation for patients that are not between the ages of 18 and 70, are , have extremes of body size, muscle mass, or nutritional status, or are non- or non-. According to the National Kidney Foundation, irrespective of diagnosis, the stage of the disease is based on the level of kidney function: Stage Description GFR(mL/min/1.73 m(2)) 1 Kidney damage with normal or decreased GFR 90 2 Kidney damage with mild decrease in GFR 60-89 3 Moderate decrease in GFR 30-59 4 Severe decrease in GFR 15-29 5 Kidney failure <15 (or dialysis) 40 SEE RESULT BELOW Name: CECILIO ALFARO : [address]: Sendy Mcdowell MD Acct: [id number] Unit: [id number] AGE: 52 Location: ED Re08/03/17 SEX: F Status: REG ER SPEC: [id number] ANKUR: 08/03/[address]: Sendy Mcdowell MD REQ: [id number] RECD: 08/03/17 STATUS: COMP [facility] DR: Chapo Aguila MD _ SOURCE: URINE SPDESC: ORDERED: Urine Culture Procedure Result Reported Site Urine Culture Final 08/05/17- 1225 ML No growth of clinically significant organisms * ML - MAIN LAB ([facility]) . END OF REPORT * ML=Testing performed at Main Lab DEPARTMENT OF PATHOLOGY, [address] [place] [address] Tay Gamboa M.D. Director [facility] # [id number] 41 The urine specimen was tested at the listed cutoffs: Drug class test level (ng/mL) Amphetamines 500 Barbiturates 200 Benzodiazepine metabolites 200 Cocaine metabolites 150 Cannabinoids 50 Opiates 300 Pcp 25 Specimen was received without chain of custody. Results should be used for medical purposes only. 42 Because ethnic data is not always readily available, this report includes an eGFR for both -Americans and non- Americans. The National Kidney Disease Education Program (NKDEP) does not endorse the use of the MDRD equation for patients that are not between the ages of 18 and 70, are , have extremes of body size, muscle mass, or nutritional status, or are non- or non-. According to the National Kidney Foundation, irrespective of diagnosis, the stage of the disease is based on the level of kidney function: Stage Description GFR(mL/min/1.73 m(2)) 1 Kidney damage with normal or decreased GFR 90 2 Kidney damage with mild decrease in GFR 60-89 3 Moderate decrease in GFR 30-59 4 Severe decrease in GFR 15-29 5 Kidney failure <15 (or dialysis) 43 [id number] 44 SEE RESULT BELOW Name: CECILIO ALFARO : [address]: Any Ramirez MD Acct: [id number] Unit: [id number] AGE: 52 Location: [facility] Re08/01/17 SEX: F Status: DEP ER SPEC: [id number] ANKUR: 08/01/17-[address] [facility] [address]: Any Ramirez MD REQ: [id number] RECD: 08/02/170918 STATUS: TASHA BARFIELD DR: Chapo Aguila MD _ SOURCE: URINE SPDES: ORDERED: Urine Culture COMMENTS: [id number] Procedure Result Reported Site Urine Culture Final 08/03/17- 1251 ML Mixed seema; possible contamination. Suggest resubmission. * ML - MAIN LAB ([facility]) . END OF REPORT * ML=Testing performed at Main Lab DEPARTMENT OF PATHOLOGY, [address] [place] [address] Tay Gamboa M.D. Director [facility] # [id number] 45 Phthalic Acid Purifier: [id number] 46 Phthalic Acid Purifier: [id number] 47 Phthalic Acid Purifier: [id number] 48 Phthalic Acid Purifier: [id number] 49 Phthalic Acid Purifier: [id number] 50 Phthalic Acid Purifier: [id number] Procedures Date CPT Code Description Status 06/03/2017 72894 Carpal Tunnel Release Completed 06/03/2017 80834 Carpal Tunnel Release Completed 05/01/2016 Mammogram Completed 04/06/2016 13899 EEG Recording Awake & Drowsy Completed 04/03/2016 07846 EKG, Interpretation Only Completed 04/29/2015 37084 EEG Recording Awake & Drowsy Completed 04/16/2012 22802 EKG, Interpretation Only Completed 04/16/2012 24135 EKG, Interpretation Only Completed Encounters Type Date Location Provider [facility] E/M Dx Office Visit 08/17/2017 2:10p [facility] Internal Medicine Lachelle Berrios, ANTHROPOLOGIST PHYSICAL [address] F33.3 - [address] R45.851 Office Visit 08/11/2017 1:20p [facility] Internal Chapo Aguila, 16572 F31.31 Medicine - [address] Adelina M51.16 K63.5 K21.9 Office Visit 07/15/2017 11:00a [facility] Internal Chapo Aguila M.D. 40240 E11.9 Medicine - [address] M51.16 F31.31 E66.01 Z68.41 Office Visit 06/13/2017 3:20p [facility] Internal Chapo Aguila M.D. 08009 E11.9 Medicine - [address] E03.9 K21.9 E78.2 E66.2 Z68.41 F31.70 Z12.11 F17.210 B37.9 Z79.4 Office Visit 05/26/2017 8:45a [facility], 15925 G56.02 Hilda Sahu Office Visit 05/11/2017 10:45a [facility] [place] [address] R10.9 [facility] Office Visit 06/14/2016 1:40p [facility] Rosi Grant, LUZ 76797 L02.91 Assoc,pc Hospitalists E11.9 Z79.4 Office Visit 06/13/2016 1:39p [facility] Assoc, Alexus Elliott N.P. 33638 L02.91 Hospitalists E11.9 Z79.4 Office Visit 05/21/2016 3:25p [facility] Sherita Lui, 15063 T39.1x2A Assoc,pc Hospitalists M.Kamille E11.9 F79 Office Visit 05/20/2016 3:24p [facility] Sherita Lui, 67566 T39.1x2A Assoc,pc Hospitalists M.Kamille E11.9 F79 Office Visit 05/19/2016 3:24p [facility] Sherita Lui, 54979 T39.1x2A Assoc,pc Hospitalists MMarkel E11.9 F79 Office Visit 05/18/2016 3:23p [facility] Sherita Lui, 87123 T39.1x2A Assoc,pc Hospitalists M.D. E11.9 F79 Office Visit 05/17/2016 3:23p [facility] Ml Mosquera, 28691 T39.1x2A Assoc,pc Hospitalists M.D. E11.9 F79 Office Visit 05/16/2016 3:22p [facility] Ml [place]quera, 72287 T39.1x2A Assoc,pc Hospitalists M.D. E11.9 F79 Office Visit 05/15/2016 3:22p [facility] Ml [place]quera, 15300 T39.1x2A Assoc,pc Hospitalists M.D. E11.9 F79 Office Visit 05/14/2016 3:22p [facility] Yara Addy, 37053 T39.1x2A Assoc,pc Hospitalists M.D. E11.9 F79 Office Visit 05/13/2016 3:21p [facility] Yara Daly, 74334 T39.1x2A Assoc,pc Hospitalists M.D. E11.9 F79 Office Visit 05/12/2016 3:21p [facility] Yara Addy, 27879 T39.1x2A Assoc,pc Hospitalists M.D. E11.9 F79 Office Visit 05/11/2016 3:20p [facility] 80608 T39.1x2A Assoc,pc [place] Hospitalists E11.9 F79 Office Visit 05/03/2016 11:09a [facility] [place] [address] R73.9 Hospitalists J40 G89.4 Office Visit 04/07/2016 3:52p [facility],pc Ml Eveline, 35622 R40.4 Hospitalists M.D. E13.9 F79 Z91.19 Office Visit 04/06/2016 3:52p [facility],pc Ml Eveline, 67857 R40.4 Hospitalists M.D. E13.9 F79 Z91.19 Office Visit 04/05/2016 3:51p [facility]pc Yara Daly, 25047 R40.4 Hospitalists M.D. E13.9 F79 Z91.19 Office Visit 04/04/2016 3:51p [facility]pc Yara Daly, 46097 R40.4 Hospitalists M.D. E13.9 F79 Z91.19 Office Visit 04/03/2016 3:50p [facility], Rosi Grant, LUZ 80150 R40.4 Hospitalists E13.9 F79 Z91.19 Office Visit 10/01/2015 10:08a [facility], 74695 M54.31 Assoc, Hospitalists N.P. E11.9 F60.3 Office Visit 09/28/2015 10:06a [facility], Ml Mosquera, 70293 M54.31 Hospitalists M.D. E11.9 Office Visit 04/24/2015 1:31p [facility], Conner [place], 07896 276.1 Hospitalists M.D. 296.7 301.83 Office Visit 04/23/2015 1:30p [facility], Con[place], 61234 276.1 Hospitalists M.D. 250.00 296.7 301.83 Office Visit 04/22/2015 1:29p [facility], Quique Charliefrank, 43843 276.1 Hospitalists M.D. 250.00 301.83 Office Visit 04/21/2015 1:28p [facility], Gray Conn, 55293 276.1 Hospitalists N.P. 296.7 301.83 250.00 Office Visit 11/27/2014 8:42a [facility] Sherita Lui, 73731 244.9 Hospitalists M.D. 250.02 301.83 Office Visit 04/17/2012 4:07p [facility], Yara Daly, 57472 969.09 Hospitalists M.D. 300.9 311 Office Visit 04/16/2012 4:35p [facility] Ceasar Grajeda, 42624 969.09 Assoc, Hospitalists M.D. 300.9 311 V11.1 Office Visit 10/18/2009 1:00a [facility], Jase Jesus M.D. 53629 789.00 Hospitalists 787.03 790.29 250.02 Office Visit 10/17/2009 3:00[facility] ,pc Jase Jesus M.D. 82509 790.29 Hospitalists 789.00 295.70 401.9 Office Visit 10/16/2009 12:15a [facility] Sherita Marshall, 41986 790.29 Assoc,pc Mary Sahu 296.80 Plan of Care Future Appointment(s):10/07/2017 11:40 am - Chapo [facility] M.D[facility] at [facility]2017 1:40 pm - Chapo Aguila M.D. at [facility] 09/[facility]/2017 - Chapo Aguila M.D.E11.65 Type 2 diabetes mellitus with hyperglycemiaNew Medication:Tresiba Flextouch 100 Unit/ MLComments:You are/are not meeting goal for blood sugar control. Changes to medications are/are not indicated. A yearly nutrition visit is available to all diabetics.Follow up:2 weeksGoals:Goal Hemoglobin A1c is less than 7.0%. Goal Blood pressure is less than 140/90. Goal LDL (bad cholesterol) is less than 70.M54.5 Low back painNew Therapy:Physical Therapy
--- NOTE | 2017-10-02 19:49 | RAD ---
INDICATION: Left shoulder pain COMPARISON: Left shoulder August 19, 2005 TECHNIQUE: Routine frontal, Y and axial views were obtained. FINDINGS: There is deformity about the greater tuberosity of the left humerus which the site of a prior greater tuberosity fracture. There is deformity with sclerosis. 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 There are findings of calcific tendinitis. The glenohumeral joint is intact. IMPRESSION: DEGENERATIVE AND POSTTRAUMATIC CHANGES LEFT SHOULDER. NO ACUTE APPEARING FINDINGS.
[2017-10-02 20:23] LABS: ABS Basophils 0.1 10^3/ul (0-0.2); ABS Eosinophils 0.8 10^3/ul (0-0.6); ABS Lymphocytes 2.2 10^3/ul (1.0-4.8); ABS Monocytes 0.5 10^3/ul (0-0.8); ABS Neutrophils 6.6 10^3/ul (1.5-7.7); ABS Nucleated RBC 0 10^3/ul; Eosinophil % 7.8 % (0-6); Hematocrit 36 % (35-47); Hemoglobin 11.8 g/dl (12.0-16.0); Lymphocyte % 21.9 % (25-47); Mean Corpuscular HGB Conc 33 g/dl (31-36); Mean Corpuscular Hemoglobin 27 pg (27-31); Mean Corpuscular Volume 83 fL (80-97); Mean Platelet Volume 9 um3 (7.4-10.4); Nucleated Red Blood Cells % 0; Platelet Count 219 10^3/ul (150-450); Red Blood Count 4.29 10^6/ul (4.0-5.4); Red Cell Distribution Width 18 % (10.5-15); White Blood Count 10.3 10^3/ul (3.5-10.8)
[2017-10-02 20:34] LABS: EGFR Non-African American 70.5 (>60)
[2017-10-02 21:49] VITALS: BP 155/81
--- NOTE | 2017-10-02 22:21 | ED ---
Upper Extremity Pain - HPI Summary HPI Summary: Patient is a 52-year-old female who presents today with a chief complaint of right shoulder pain after falling directly onto the shoulder yesterday. She also endorses back pain, but states this is her baseline as she has "slipped discs". She is a frequent visitor to the emergency department often with very high glucose. She endorses "getting into the cookies" yesterday and takes her medication only intermittently. She is on metformin as well as NovoLog. Symptoms are aggravated with movement, relieved with rest. She has not tried [id number]-[id number] ibuprofen or Tylenol or heat. She has injured the shoulder in the past. - History of Current Complaint Chief Complaint: EDBackInjuryPain Stated Complaint: FALL Time Seen by Provider: 10/02/17 17:38 Hx Obtained From: Patient Hx Last Menstrual Period: going through menopause Mechanism Of Injury: Blunt Trauma Onset/Duration: Started Hours Ago Timing: Constant Severity Initially: Mild Severity Currently: Mild Pain Location: Shoulder Character: Aching Aggravating Factor(s): Movement, Lifting, Flexion, Extension Alleviating Factor(s): Rest Associated Signs & Symptoms: Negative: Swelling, Redness, Bruising, Numbness/ Tingling, Diaphoresis, Nausea Related History: Dominant Hand Right - Risk Factors Non-Orthopedic Risk Factor: Negative DVT Risk Factors: Negative Septic Arthritis Risk Factor: Negative Compartment Syndrome Risk Factors: Pain - Allergies/Home Medications Allergies/Adverse Reactions: Allergies Allergy/AdvReac Type Severity Reaction Status Date / Time ciprofloxacin Allergy Dizziness Verified 10/02/17 17:25 latex Allergy Rash Verified 10/02/17 17:25 lithium Allergy See Comment Verified 10/02/17 17:25 [email or web address] Allergy Unknown Verified 10/02/17 17:25 Reaction Details Penicillins Allergy Rash Verified 10/02/17 17:26 perphenazine Allergy Unknown Verified 10/02/17 17:26 Reaction Details Sulfa (Sulfonamide Allergy Hives Verified 10/02/17 17:25 Antibiotics) tramadol Allergy Altered Verified 10/02/17 17:25 Mental Status ENVIRONMENTAL Allergy Mild SINUS Uncoded 08/31/17 17:17 PMH/Surg Hx/FS Hx/Imm Hx Previously Healthy: Yes Endocrine/Hematology History: Reports: Hx Diabetes, Hx Thyroid Disease, Other Endocrine/Hematological Disorders - Chronic pancreatitis Denies: Hx Anticoagulant Therapy Cardiovascular History: Reports: Hx Hypertension - NO MEDICATION FOR PER PATIENT , Other Cardiovascular Problems/Disorders - HX OF PSVT 04/2008 Denies: Hx Pacemaker/ICD Respiratory History: Reports: Hx Asthma, Hx Seasonal Allergies, Hx Sleep Apnea - HX OF IN THE PAST Denies: Hx Chronic Bronchitis, Hx Chronic Obstructive Pulmonary Disease (COPD ), Hx Cystic Fibrosis, Hx Lung Cancer, Hx Pleural Effusion, Hx Pneumonia, Hx Pulmonary Edema, Hx Pulmonary Embolism, Other Respiratory Problems/Disorders GI History: Reports: Hx Gall Bladder Disease, Hx Gastroesophageal Reflux Disease - ON MEDICATION FOR, Hx Gastrointestinal Bleed, Hx Irritable Bowel, Other GI Disorders - HX OF pancreatitis- STATES LAST ABOUT 2 WEEKS AGO- STATES SLIGHT CASE Denies: Hx Ulcer History: Denies: Hx Dialysis, Hx Renal Disease Musculoskeletal History: Reports: Hx Arthritis, Hx Back Problems, Other Musculoskeletal History - GEN MUSCULOSKELETAL PAIN Denies: Hx Rheumatoid Arthritis, Hx Bursitis, Hx Congenital Bone Abnormalities, Hx Fibromyalgia, Hx Gout, Hx Orthopedic Injury, Hx Osteoporosis, Hx Scoliosis, Hx Tendonitis Sensory History: Reports: Hx Contacts or Glasses, Hx Vision Problem Denies: Hx Cataracts, Hx Eye Injury, Hx Eye Prosthesis, Hx Glaucoma, Hx Macular Degeneration, Other Sensory Impairments Opthamlomology History: Reports: Hx Contacts or Glasses, Hx Vision Problem Denies: Hx Cataracts, Hx Eye Injury, Hx Eye Prosthesis, Hx Glaucoma, Hx Macular Degeneration, Other Sensory Impairments Neurological History: Reports: Hx Developmental Delay - intellectual disability , Hx Seizures - STATES WITH ALLERGIC REACTION TO TRAMADOL Denies: Hx Dementia, Other Neuro Impairments/Disorders Psychiatric History: Reports: Hx Anxiety - ON MEDICATION FOR, Hx Depression - ON MEDICATION FOR, Hx Post Traumatic Stress Disorder, Hx Inpatient Treatment, Hx Community Mental Health Tx, Hx Bipolar Disorder - pt manic, Hx Suicide Attempt - past med overdoses, Hx of Violent Episodes Against Others, Other Psychiatric Issues/Disorders - PSYCHOSIS NOS, HX OF PTSD, SCHIZOAFFECTIVE DISORDER, BORDERLINE PERSONALITY Denies: Hx Attention Deficit Hyperactivity Disorder, Hx Eating Disorder, Hx Panic Disorder, Hx Schizophrenia, Hx Substance Abuse - Surgical History Surgery Procedure, Year, and Place: 2011-CATARACT EXTRACTION. GALLBLADDER REMOVED Hx Anesthesia Reactions: No - Immunization History Date of Tetanus Vaccine: Unknown Date of Influenza Vaccine: 04/2017 Hx Pertussis Vaccination: No Immunizations Up to Date: Unable to Obtain/Confirm Infectious Disease History: No Infectious Disease History: Denies: Hx Clostridium Difficile, Hx Hepatitis, Hx Human Immunodeficiency Virus (HIV), Hx of Known/Suspected MRSA, Hx Shingles, Hx Tuberculosis, Hx Known/ Suspected VRE, Hx Known/Suspected VRSA, History Other Infectious Disease, Traveled Outside the [place] in Last 30 Days - Family History Known Family History: Positive: Other - Anxiety and depression, [place] - father Negative: Cardiac Disease, Hypertension, Diabetes Family History: Depression and anxiety - Social History Occupation: Unemployed, Disabled Lives: With Family Alcohol Use: None Hx Substance Use: Yes Substance Use Type: Reports: None Hx Tobacco Use: Yes Smoking Status (MU): Former Smoker Type: Cigarettes Amount Used/How Often: Quit for 2 years, but started again in March. USING THE NICOTINE Length of Time of Smoking/Using Tobacco: 2 year ago Have You Smoked in the Last Year: Yes - Patient has smoked within the last 30 days Review of Systems Constitutional: Negative Negative: Fever, Chills, Fatigue, Skin Diaphoresis Eyes: Negative Cardiovascular: Negative Genitourinary: Negative Positive: no symptoms reported, see HPI Positive: Arthralgia, Myalgia Skin: Negative Neurological: Negative All Other Systems Reviewed And Are Negative: Yes Physical Exam Triage Information Reviewed: Yes Vital Signs On Initial Exam: Initial Vitals Temp Pulse Resp BP Pulse Ox 98.9 F 81 16 140/67 96 10/02/17 17:13 10/02/17 17:13 10/02/17 17:13 10/02/17 17:13 10/02/17 17:13 Vital Signs Reviewed: Yes Appearance: Positive: Well-Appearing, Well-Nourished Skin: Positive: Warm, Skin Color Reflects Adequate Perfusion Head/Face: Positive: Normal Head/Face Inspection Eyes: Positive: EOMI, JENNIFER, Conjunctiva Clear Neck: Positive: Supple, No Lymphadenopathy Respiratory/Lung Sounds: Positive: Clear to Auscultation, Breath Sounds Present Cardiovascular: Positive: RRR, Pulses are Symmetrical in both Upper and Lower Extremities Musculoskeletal: Positive: Pain @ - Right shoulder pain Neurological: Positive: Sensory/Motor Intact, Alert, Oriented to Person Place, Time, Speech Normal Psychiatric: Positive: Normal, Affect/Mood Appropriate AVPU Assessment: Alert Diagnostics - Vital Signs Vital Signs Temp Pulse Resp BP Pulse Ox 10/02/17 21:48 98.8 F 90 14 155/81 94 10/02/17 17:17 77 95 10/02/17 17:15 140/67 10/02/17 17:13 98.9 F 81 16 140/67 96 - Laboratory Lab Results: Lab Results 10/02/17 10/02/17 Range/Units 20:07 20:07 WBC 10.3 (3.5-10.8) 10^3/ul RBC 4.29 (4.0-5.4) 10^6/ul Hgb 11.8 L (12.0-16.0) g/dl Hct 36 (35-47) % MCV 83 (80-97) fL MCH 27 (27-31) pg MCHC 33 (31-36) g/dl RDW 18 H (10.5-15) % Plt Count 219 (150-450) 10^3/ul MPV 9 (7.4-10.4) um3 Neut % (Auto) 64.4 (38-83) % Lymph % (Auto) 21.9 L (25-47) % Rankin % (Auto) 5.3 (0-7) % Eos % (Auto) 7.8 H (0-6) % Baso % (Auto) 0.6 (0-2) % Absolute Neuts (auto) 6.6 (1.5-7.7) 10^3/ul Absolute Lymphs (auto) 2.2 (1.0-4.8) 10^3/ul Absolute Monos (auto) 0.5 (0-0.8) 10^3/ul Absolute Eos (auto) 0.8 H (0-0.6) 10^3/ul Absolute Basos (auto) 0.1 (0-0.2) 10^3/ul Absolute Nucleated RBC 0 10^3/ul Nucleated RBC % 0 Sodium 136 (133-145) mmol/L Potassium 4.5 (3.5-5.0) mmol/L Chloride 103 (101-111) mmol/L Carbon Dioxide 29 (22-32) mmol/L Anion Gap 4 (2-11) mmol/L BUN 14 (6-24) mg/dL Creatinine 0.85 (0.51-0.95) mg/dL Est GFR ( Amer) 90.7 (>60) Est GFR (Non-Af Amer) 70.5 (>60) BUN/Creatinine Ratio 16.5 (8-20) Glucose 347 H (70-100) mg/dL Calcium 9.2 (8.6-10.3) mg/dL Total Bilirubin 0.20 (0.2-1.0) mg/dL AST 18 (13-39) U/L ALT 18 (7-52) U/L Alkaline Phosphatase 119 H (34-104) U/L C-React Prot High Sens 3.53 mg/L Total Protein 6.9 (6.4-8.9) g/dL Albumin 3.7 (3.2-5.2) g/dL Globulin 3.2 (2-4) g/dL Albumin/Globulin Ratio 1.2 (1-3) Result Diagrams: 10/02/17 20:07 10/02/17 20:07 Lab Statement: Any lab studies that have been ordered have been reviewed, and results considered in the medical decision making process. Course/Dx - Course Course Of Treatment: During the course of treatment, glucose obtained which shows 347. She states she is due to have her NovoLog. She agrees to take this on arrival when she gets home. I discussed with her at length avoiding sweets and other foods that would cause her sugar to rise. X-ray of the shoulder is obtained and shows degenerative and posttraumatic changes to the left shoulder. No acute appearing findings. She has had a deformity about the greater tuberosity of the left humerus which is the site of a prior greater tuberosity fracture. There is deformity with sclerosis. There is also a C joint osteoarthritis which is progressive. There are findings of calcific tendinitis. Patient is made aware of all results and I have encouraged ibuprofen 6 her milligrams. She has full range of motion without limitations. - Diagnoses Provider Diagnoses: Shoulder pain Discharge - Discharge Plan Condition: Stable Disposition: HOME Patient Education Materials: Shoulder Pain (ED) Referrals: Chapo Aguila MD [Primary Care Provider] - Additional Instructions: Ibuprofen 600 mg 3 times daily Immediately take the NovoLog 15 mg insulin when you arrive home due to her high blood sugars Do not indulge in sweets as this will increase your sugars to dangerous levels Drink plenty of water, do not drink soda or any other sugary drinks
== END 2017-10-02 21:50 | disposition home or self-care (01) ==
LOC: ED 17:08
DX: M25.511 Pain in right shoulder (principal); M19.011 Primary osteoarthritis, right shoulder; Z87.891 Personal history of nicotine dependence; Z88.3 Allergy status to other anti-infective agents; Z88.5 Allergy status to narcotic agent; Z88.0 Allergy status to penicillin; Z88.8 Allergy status to other drugs, medicaments and biological substances; Z88.2 Allergy status to sulfonamides
CPT/HCPCS: 36415; 80053; 85025; 86141; 99282

== ENCOUNTER 2017-10-10 11:00 | Emergency (ER) | payer MEDICARE, MEDICAID ==
[2017-10-10 11:29] VITALS: BP 131/85
--- NOTE | 2017-10-10 11:33 | UC ---
Back Pain HPI - HPI Summary HPI Summary: Pt presents with low back pain and right shoulder pain s/p fall about 2 weeks ago. She tells me that her had laundry detergent on the floor and she didn't realize it - fell and landed on her lower back and onto right shoulder. These areas are still painful today. Says she has norco for pain and has been taking it with good relief. but is asking for more today. Denies fever, chills, numbness, tingling, headache, dizziness, dysuria, or loss of bowel/bladder control. - History of Current Complaint Chief Complaint: UCBackPain Stated Complaint: BACK PAIN Time Seen by Provider: 10/10/17 11:32 Hx Obtained From: Patient Hx Last Menstrual Period: "last month" Onset/Duration: Sudden Onset Timing: Constant Severity Initially: Moderate Severity Currently: Moderate Pain Intensity: 7 Pain Scale Used: 0-10 Numeric - Allergies/Home Medications Allergies/Adverse Reactions: Allergies Allergy/AdvReac Type Severity Reaction Status Date / Time ciprofloxacin Allergy Dizziness Verified 10/10/17 11:22 latex Allergy Rash Verified 10/10/17 11:22 lithium Allergy See Comment Verified 10/10/17 11:22 [email or web address] Allergy Unknown Verified 10/10/17 11:22 Reaction Details Penicillins Allergy Rash Verified 10/10/17 11:22 perphenazine Allergy Unknown Verified 10/10/17 11:22 Reaction Details Sulfa (Sulfonamide Allergy Hives Verified 10/10/17 11:22 Antibiotics) tramadol Allergy Altered Verified 10/10/17 11:22 Mental Status ENVIRONMENTAL Allergy Mild SINUS Uncoded 10/10/17 11:22 Home Medications: Home Medications Acetaminophen with Codeine [Acetaminophen-Cod #3 Tablet] 1 tab PO Q6HR PRN MDD 2 10/10/17 [History Confirmed 10/10/17] Atorvastatin* [Lipitor 40 MG*] 40 mg PO DAILY 10/10/17 [History Confirmed ] Insulin Degludec [Tresiba Flextouch U-100] 1 applic SQ SEE INSTRUCTIONS [History Confirmed 10/10/17] Nicotine [Nicotrol NS 10 MG/ML NASAL SPRAY] 1 inh INH SEE INSTRUCTIONS PRN 10/10 [History Confirmed 10/10/17] PMH/Surg Hx/FS Hx/Imm Hx - Additional Past Medical History Additional PMH: Chronic pain Endocrine History: Diabetes Respiratory History: Asthma Psychological History: Anxiety, Depression, Bipolar Disorder, Schizophrenia Other History Of: Negative For: Anticoagulant Therapy - Surgical History Surgical History: Yes Surgery Procedure, Year, and Place: 2011-CATARACT EXTRACTION. GALLBLADDER REMOVED - Family History Known Family History: Positive: Other - Anxiety and depression, [place] - father Negative: Cardiac Disease, Hypertension, Diabetes Family History: Depression and anxiety - Social History Alcohol Use: None Substance Use Type: None Smoking Status (MU): Current Some Day Smoker Type: Cigarettes Amount Used/How Often: Quit for 2 years, but started again in March. Length of Time of Smoking/Using Tobacco: 2 year ago Have You Smoked in the Last Year: Yes - Patient has smoked within the last 30 days When Did the Patient Quit Smoking/Using Tobacco: ATTEMPTING TO QUIT Household Exposure Type: Cigarettes - Immunization History Most Recent Influenza Vaccination: Within the past month or two at [facility] Most Recent Tetanus Shot: Unsure Most Recent Pneumonia Vaccination: 05/20/2017 Review of Systems Constitutional: Negative Skin: Negative Respiratory: Negative Cardiovascular: Negative Motor: Negative Neurovascular: Negative Musculoskeletal: Decreased ROM - Right shoulder, Other: - Pain right shoulder and low back Neurological: Negative Psychological: Negative All Other Systems Reviewed And Are Negative: Yes Physical Exam - Summary Physical Exam Summary: GENERAL: NAD. WDWN. No pain distress. SKIN: No rashes, sores, ulcers, masses, lesions. NECK: Supple. FROM. Nontender. No lymphadenopathy. CHEST: CTAB. No r/r/w. No accessory muscle use. Breathing comfortably and in no distress. CV: RRR. Without m/r/g. Pulses intact. Brisk cap refill. MSK: TTP over lumbar paraspinal muscles. Pain with flexion and extension of spine. Positive SLR b/l. Strength 5/5 B/L LEs including dorsiflexion and plantar flexion. FROM B/L LEs. Right shoulder: TTP over general right shoulder. decreased ROM. Strength 5/5. No edema or obvious bony deformities. Positive apleys, waters-wisam, and tam. NEURO: Alert. CN II-XII grossly intact. Sensations intact C4-T1 b/l UEs and B/L LEs L3-S1. PSYCH: Age appropriate behavior. Triage Information Reviewed: Yes Vital Signs: Initial Vital Signs Temp 99.0 F 10/10/17 11:20 Pulse 82 10/10/17 11:20 Resp 18 10/10/17 11:20 BP 131/85 10/10/17 11:20 Pulse Ox 99 10/10/17 11:20 Back Pain Course/Dx - Course Course Of Treatment: istop Reference #: [id number]. One tab of norco given in clinic today. XR: Shoulder: IMPRESSION: 1. Negative for fracture or malalignment. 2. Osteoarthritis and large burden of calcific tendinopathy at the supraspinatus. Lumbar: IMPRESSION: Negative for fracture or spondylolisthesis. Degenerative spondylosis and facet. joint osteoarthritis without significant change. Suspect muscle strain vs contusion. Advised to start physical therapy, continue taking her at home pain medication, and follow up with her PCP - Differential Dx/Diagnosis Provider Diagnoses: Right shoulder pain. Low back pain Discharge - Discharge Plan Condition: Stable Disposition: HOME Patient Education Materials: Osteoarthritis (ED) Referrals: Chapo Aguila MD [Primary Care Provider] - As Soon As Possible Hiro Giron MD [Medical Doctor] - As Soon As Possible Additional Instructions: If you develop a fever, shortness of breath, chest pain, new or worsening symptoms - please call your PCP or go to the ED. 1) Please schedule a follow up appointment with your PCP and Orthopedics as soon as possible regarding your shoulder and back pain.
[2017-10-10] MEDS ORDERED: HYDROcodone/ACETAMIN 5-325 MG* 1 TAB PO ONE (11:44)
--- NOTE | 2017-10-10 12:46 | RAD ---
Indication: RIGHT shoulder pain post fall October 02, 2017. Comparison: No relevant prior exams available on the [facility] PACS. Technique: Internal rotation AP, external rotation Grashey, scapular Y, axillary views RIGHT shoulder Report: Normal acromioclavicular and glenohumeral joint alignment. Negative for fracture. Conspicuity of the glenohumeral joint space on the axial views is limited due to body habitus. Mild osteophytic lipping at the acromioclavicular and glenohumeral joints. Large burden of calcific tendinopathy at the supraspinatus tendon similar to the contralateral shoulder exam of October 02, 2017. Unremarkable soft tissue contours. IMPRESSION: 1. Negative for fracture or malalignment. 2. Osteoarthritis and large burden of calcific tendinopathy at the supraspinatus.
--- NOTE | 2017-10-10 12:50 | RAD ---
Indication: Lumbar sacral spine pain post fall 2 weeks ago. Decreased range of motion. Comparison: August 31, 2017 lumbar sacral spine radiographs Technique: AP, lateral, and oblique views lumbar sacral spine. Report: Alignment is anatomic. No cortical disruption or trabecular impaction to indicate a vertebral body fracture. Oblique views without evidence for spondylolysis. Multilevel vertebral endplate osteophytosis. Predominant mild multilevel disc space narrowing with more significant moderate disc space narrowing at L5-S1 without change. Facet joint osteoarthritis most prominent at L4-L5 and L5-S1. Unremarkable soft tissue contours. IMPRESSION: Negative for fracture or spondylolisthesis. Degenerative spondylosis and facet joint osteoarthritis without significant change.
== END 2017-10-10 13:10 | disposition home or self-care (01) ==
LOC: UCEAST 11:00
DX: M25.511 Pain in right shoulder (principal); M54.5 Low back pain; M19.011 Primary osteoarthritis, right shoulder; M75.31 Calcific tendinitis of right shoulder; E11.9 Type 2 diabetes mellitus without complications; Z79.4 Long term (current) use of insulin; J45.909 Unspecified asthma, uncomplicated; F41.9 Anxiety disorder, unspecified; F31.9 Bipolar disorder, unspecified; Z88.5 Allergy status to narcotic agent; Z88.0 Allergy status to penicillin; Z88.2 Allergy status to sulfonamides; Z88.8 Allergy status to other drugs, medicaments and biological substances; Z88.1 Allergy status to other antibiotic agents; Z91.040 Latex allergy status; Z72.0 Tobacco use
CPT/HCPCS: 72110; 99212; G0463

== ENCOUNTER 2017-11-02 08:36 | Inpatient (IN) | payer MEDICARE, MEDICAID ==
--- OUTSIDE RECORDS SUMMARY | 2017-11-02 08:50 | XMS REPORT ---
:1965 External Reference #:[id number] Author Organization [facility] Address [address] [address] Phone [phone] Care Team Providers Name Role Phone Chapo Aguila MD Primary Care Physician Unavailable Payers Type Date Identification Numbers Payment Provider Subscriber Medicare Primary Effective: Policy Number: Medicare Cecilio Alfaro 1990 [id number] PayID: [id number] [address] [place] [address] Medisumpter Part B Policy Number: [id number] Medicaid Cecilio Alfaro Group Name: 1 [address] PayID: [id number] [place] [address] Problems Date Description Provider Status Onset: 06/13/2017 [...] 05/10/2017 Tramadol altered mental status active 05/10/2017 [place] active Medications Medication Date Status Form Strength Qnty SIG Indications Ordering Provider Tresiba Flextouch 10/13/ Active Solution 100Unit/M 15ml 100 units E11.65 [place] 2018 Pen-Injec L at bedtime Ayla cox M.D. Losartan 10/13/ Active Tablets 25mg 30tab 1 by mouth E11.65 [place] Potassium 2018 s once a day Adelina Aguila Hydrocodone-Aceta 10/10/ Active Tablets 5-325mg 20tab 1 tab every [place] minophen 2018 s 12h as Ayla coleman M.D. Onetouch Ultra 09/09/ Active Strips 100un test up to E11.9 Lawrence Pantoja 2018 its three times Kamille Denson, daily last MMarkel,FACP visit: Onetouch 08/31/ Active Misc 100un test blood E11.9 Lawrence Ultrasoft Lancets 2018 its 2-3 a day Kamille Denson, or as MJarredDJarred,FACP needed Onetouch Ultra 08/31/ Active Lancets 100un check bs [place] 2018 its twice daily Adelina Aguila Mucinex 08/28/ Active Tablets 600mg 20tab 1 po bid Lawrence 2018 ER 12HR s prn Kamille Denson M.D.,FACP BD Pen 08/24/ Active Misc 32G X 4 120un use tid Lawrence Needle/Suzanna/Ultra 2018 mm its daily Kamille Denson, Fine/32G X 4mm MMarkel,FACP Fluconazole 08/22/ Active Tablets 150mg 2tabs one by Lawrence 2018 mouth novemberJarred Denson, repeat in 3 M.D.,FACP days as needed Janumet 07/15/ Active Tablets 50-500mg 60tab 1 by mouth E11.9 Chapo 2016 s twice a day Adelina Aguila Depend Pant Extra 06/14/ Active Misc 120un use 4 x a Chapo Hernandez 2016 day or as Ayla needed Adelina Nicotrol 06/13/ Active Inhaler 10mg 168un use 4-5 F17.210 Chapo 2016 its times daily Adelina Aguila Clotrimazole 06/13/ Active Cream 1% 90gm apply twice B37.9 Chapo 2016 daily Adelina Aguila Acetaminophen-Cod 05/26/ Active Tablets 300-30mg 20tab 1 tab by Chapo montes de oca #3 2017 s mouth every Gerryika 4-6 hours , M.DJarred as needed for pain Ibuprofen / Active Tablets 600mg as needed Home 0000 Paty NP Ondansetron / Active Tablets 8mg every 6-8 Home 0000 Dispers hours as , Paty, [place] [employer] Pantoprazole / Active Tablets 40mg 30tab take [address] s tablet by Ayla mouth once , M.D. daily Lamotrigine / Active Tablets 150mg take 1 Unknown 0000 tablet by mouth twice a day Sertraline HCL / Active Tablets 100mg Take 1+1/2 Unknown 0000 Tablets By Mouth Once Daily Olanzapine / Active Tablets 7.5mg daily Unknown 0000 Trazodone HCL / Active Tablets 100mg 4 tabs at Aurea, 0000 bedtime MD Sarwat Latuda / Active Tablets 80mg daily Unknown 0000 Levothyroxine / Active Tablets 50mcg 90tab 1 tab daily Chapo Sodium 0000 s in the [place] empty , M.D. stomach Levothyroxine / Active Tablets 200mcg 90tab 1 tab daily [place] Sodium 0000 s am in the [place] empty , M.D. stomach Atorvastatin / Active Tablets 40mg 90tab take one Chapo Calcium 0000 s tablet by Pachhortensia mouth every , M.D. day Novalog / Active 10 units Unknown 0000 before meals Onetouch Ultra / Active Kit w/Device check bs Unknown Mini 0000 twice daily Tresiba Flextouch 09/19/ Hx Solution 100Unit/M 15ml 60 units at E11.65 [place] [address] - Pen-Injec L bedtime Pachikara 10/13/ t , M.DJarred 2018 Onetouch Ultra 08/31/ Hx Strips 100un test up to E11.9 Lawrence Mora 2018 - its three times D. Janiya, 09/09/ daily last M.D.,FACP 2018 visit: Doxycycline 08/28/ Hx Capsules 100mg 13cap 1 by mouth Unknown Monohydrate 2018 - s twice a day 09/04/ x 7 days 2018 Tresiba Flextouch 08/26/ Hx Solution 200Unit/M 18ml 30u SC in Alyson Mendez [facility] - Pen-Injec L Am and 70u Kamille Denson, 09/19/ t SC in PM M.D.,FACP 2018 Azithromycin 08/26/ Hx Tablets 250mg 2 tabs by [facility] 2018 - mouth on 08/31/ day 1; 1 2018 tab by mouth every day on days 2-5 Tramadol HCL 08/26/ Hx Tablets 50mg 30tab 1 tab by Lawrence 2018 - s mouth three D. [place], 09/28/ times a day M.D.,FACP 2018 Lancets 28G 08/08/ Hx Misc 28G 100un use with [place] 2017 - [facility] one touch [place] 08/31/ meter, , M.DJarred 2018 check bs daily Onetouch 08/08/ Hx Strips 100un test twice [place] 2017 - its daily and [place] 08/31/ as needed , M.D. 2018 Glucocom Blood 07/03/ Hx Kit W/Device 1unit one touch Erik Glucose 2017 - s glucometer [facility], Monitoring System 08/31/ to measure M.D. 2018 blood sugar daily Novolog Flexpen / Hx Solution 100Unit/M Inject 15 Unknown 0000 Pen-Injec L Units Subq t Three Times A Day With Meals Cyclobenzaprine / Hx Tablets 10mg as needed Unknown HCL 0000 - 2017 Naproxen / Hx Tablets 500mg 60tab twice daily Chapo 0000 - s Ayla 07/15/ Adelina 2016 Christine Sun / Hx Solution 100Unit/M 15ml 30 units SC Alyson Mendez 0000 - Pen-Injec L in Am, and Kamille Denson, 70 units FELISHA Sahu,FACP 2018 a hs Pictonix / Hx 40 mg daily Unknown 0000 Vital Signs Date Vital Result Comment 10/18/2017 Height 67 inches 5'7" Heart Rate 96 /min BP Systolic 148 mmHg BP Diastolic 90 mmHg Respiratory Rate 16 /min Body Temperature 97.7 F Pain Level 9 10/13/2017 Height 67 inches 5'7" Weight 251.50 lb Heart Rate 100 /min BP Systolic Sitting 128 mmHg BP Diastolic Sitting 84 mmHg O2 % BldC Oximetry 95 % BMI (Body Mass Index) 39.4 kg/m2 10/11/2017 Height 67 inches 5'7" Weight 249.00 lb Heart Rate 89 /min BP Systolic 132 mmHg BP Diastolic 82 mmHg Respiratory Rate 16 /min Body Temperature 98.1 F Pain Level 8 BMI (Body Mass Index) 39.0 kg/m2 09/28/2017 Height 67 inches 5'7" Weight 259.44 lb Heart Rate 90 /min BP Systolic 132 mmHg BP Diastolic 80 mmHg O2 % BldC Oximetry 96 % BMI (Body Mass Index) 40.6 kg/m2 09/19/2017 Weight 287.00 lb Heart Rate 83 [...] Test Date Test Result H/L Range Note CBC Auto Diff 10/02/2017 White Blood Count 10.3 10^3/uL 3.5-10.8 Red Blood Count 4.29 10^6/uL 4.0-5.4 Hemoglobin 11.8 g/dL Low 12.0-16.0 Hematocrit 36 % 35-47 Mean Corpuscular Volume 83 fL 80-97 Mean Corpuscular Hemoglobin 27 pg 27-31 Mean Corpuscular HGB Conc 33 g/dL 31-36 Red Cell Distribution Width 18 % High 10.5-15 Platelet Count 219 10^3/uL 150-450 Mean Platelet Volume 9 um3 7.4-10.4 Abs Neutrophils 6.6 10^3/uL 1.5-7.7 Abs Lymphocytes 2.2 10^3/uL 1.0-4.8 Abs Monocytes 0.5 10^3/uL 0-0.8 Abs Eosinophils 0.8 10^3/uL High 0-0.6 Abs Basophils 0.1 10^3/uL 0-0.2 Abs Nucleated RBC 0 10^3/uL Granulocyte % 64.4 % 38-83 Lymphocyte % 21.9 % Low 25-47 Monocyte % 5.3 % 0-7 Eosinophil % 7.8 % High 0-6 Basophil % 0.6 % 0-2 Nucleated Red Blood Cells % 0 Comp Metabolic Panel 10/02/2017 Sodium 136 mmol/L 133-145 Potassium 4.5 mmol/L 3.5-5.0 Chloride 103 mmol/L 101-111 Co2 Carbon Dioxide 29 mmol/L 22-32 Anion Gap 4 mmol/L 2-11 Glucose 347 mg/dL High 70-100 Blood Urea Nitrogen 14 mg/dL 6-24 Creatinine 0.85 mg/dL 0.51-0.95 BUN/Creatinine Ratio 16.5 8-20 Calcium 9.2 mg/dL 8.6-10.3 Total Protein 6.9 g/dL 6.4-8.9 Albumin 3.7 g/dL 3.2-5.2 Globulin 3.2 g/dL 2-4 Albumin/Globulin Ratio 1.2 1-3 Total Bilirubin 0.20 mg/dL 0.2-1.0 Alkaline Phosphatase 119 U/L High 34-104 Alt 18 U/L 7-52 Ast 18 U/L 13-39 Egfr Non- 70.5 >60 Egfr 90.7 >60 1 Laboratory test finding 10/02/2017 CRP High Sensitivity 3.53 mg/L 2 Laboratory test finding 09/28/2017 Hemoglobin A1c 9.1 High 5-7 Laboratory test finding 09/13/2017 Point of Care Glucose 179 mg/dL High 70 -100 3 Laboratory test finding 09/13/2017 Point of Care Glucose 260 mg/dL High 70 -100 4 Comp Metabolic Panel 08/29/2017 Sodium 136 mmol/L [...] Egfr Non- 47.4 >60 Egfr 60.9 >60 5 Laboratory test finding 08/29/2017 Lipase < 10 U/L Low 11.0-82.0 CRP High Sensitivity 1.79 mg/L 6 Troponin-I (TnI) 0.00 ng/mL <0.04 CBC Auto [...] test finding 08/29/2017 B-Type Natriuretic 21 pg/mL 7 Peptide BNP CBC Auto Diff 08/26/2017 White [...] Egfr Non- 62.8 >60 Egfr 80.7 >60 8 Inr/Protime 08/26/2017 Inr 0.82 0.77-1.02 Laboratory test finding 08/26/2017 Partial Thrombo Time 27.7 seconds 26.0 -36.3 PTT Laboratory test finding 08/25/2017 Point of Care 157 mg/dL High 70-100 9 Glucose Urinalysis Profile 08/25/2017 Urine Color Yellow Urine Appearance Clear Urine Specific [place] 1.010 1.010-1.030 Urine pH 5.0 5-9 Urine Urobilinogen Negative Negative Urine Ketones Negative Negative Urine Protein Negative Negative Urine Leukocytes Negative Negative Urine Blood Negative Negative Urine Nitrite Negative Negative Urine Bilirubin Negative Negative Urine Glucose 3+(>=500 mg/dL) Negative Laboratory test finding 08/25/2017 Point of Care Glucose 289 mg/dL High 70 -100 10 Venous Blood Gas 08/25/2017 Venous Blood pH 7.48 High 7.33-7.43 Venous Pco2 31 mmHg Low 41-51 Venous Po2 98 mmHg High 35-45 Venous O2 Saturation 95.3 % High 70-80 Venous Blood Base Excess 0.1 0-4 11 Venous Bicarbonate Hco3 25.0 mmol/L 24-28 CBC Auto Diff 08/25/2017 White Blood Count [...] Blood Cells % 0 Comp Metabolic Panel 08/25/2017 Sodium 134 mmol/L [...] Egfr Non- 68.6 >60 Egfr 88.3 >60 12 Laboratory test finding 08/25/2017 C Reactive Protein 3.27 mg/L < 5.00 13 Laboratory test finding 08/23/2017 Point of Care Glucose 224 mg/dL High 70 -100 14 Laboratory test finding 08/22/2017 Magnesium 2.0 mg/dL 1.9-2.7 Creatine Kinase(CK) 121 U/L 10-223 C Reactive Protein 4.62 mg/L < 5.00 15 Troponin-I (TnI) 0.01 ng/mL <0.04 Comp Metabolic [...] Egfr Non- 65.2 >60 Egfr 83.8 >60 16 Glucose 543 mg/dL High 70-100 17 Laboratory test finding 08/22/2017 Glucose 417 mg/dL High 70-100 Laboratory test finding 08/22/2017 Point of Care > 444 mg/dL High 70- 100 18 Glucose Urinalysis Profile 08/22/2017 Urine Color Yellow Urine Appearance Cloudy Urine Specific [place] 1.023 1.010-1.030 Urine pH 6.0 5-9 Urine Urobilinogen Negative Negative Urine Ketones Negative Negative Urine Protein Negative Negative Urine Leukocytes Trace Negative Urine Blood 1+ Negative Urine Nitrite Negative Negative Urine Bilirubin Negative Negative Urine Glucose 3+(>=500 mg/dL) Negative Urine White Blood Cell 1+(6-10/hpf) Absent Urine Red Blood Cell 3+(>10/hpf) Absent Urine Bacteria 2+ Absent Urine Squamous Epithelial Cell Present Absent Urine Culture And 08/22/2017 Urine Culture SEE RESULT BELOW 19 Sensitivities CBC Auto Diff 08/22/2017 White Blood Count [...] 0-2 Nucleated Red Blood Cells % 0.1 Laboratory test finding 08/22/2017 Lactic Acid 1.3 mmol/L 0.5-2.0 20 Inr/Protime 08/22/2017 Inr 0.91 0.77-1.02 Venous Blood Gas 08/22/2017 Venous Blood pH 7.42 7.33-7.43 Venous Pco2 49 mmHg 41-51 Venous Po2 36 mmHg 35-45 Venous O2 Saturation 78.1 % 70-80 Venous Blood Base Excess 6.3 High 0-4 21 Venous Bicarbonate Hco3 29.4 mmol/L High 24-28 Laboratory test finding 08/18/2017 Point of Care Glucose 180 mg/dL High 70 -100 22 Urinalysis Profile 08/17/2017 Urine Color Yellow Urine Appearance Cloudy Urine Specific [place] 1.016 1.010-1.030 Urine pH 5.0 5-9 Urine Urobilinogen Negative Negative Urine Ketones Negative Negative Urine Protein Negative Negative Urine Leukocytes Negative Negative Urine Blood Negative Negative Urine Nitrite Negative Negative Urine Bilirubin Negative Negative Urine Glucose 3+(>=500 mg/dL) Negative Laboratory test 08/17/2017 Point of Care > 444 mg/dL High 70-100 23 finding Glucose Urine Drug SCR ED 08/17/2017 Amphetamine Ur None Detected None Detect & Pain Clinic Screen Barbiturates Urine Screen None Detected None Detect Benzodiazepine Urine Screen None Detected None Detect Urine Cannabinoids Screen None Detected None Detect Urine Cocaine Screen None Detected None Detect Urine Opiates Screen None Detected None Detect Urine Phencyclidine Screen None Detected None Detect 24 Laboratory test 08/17/2017 Point of Care 276 mg/dL High 70-100 25 finding Glucose Laboratory test 08/17/2017 Point of Care > 444 mg/dL High 70-100 26 finding Glucose Venous Blood Gas 08/17/2017 Venous Blood pH 7.36 7.33-7.43 Venous Pco2 48 mmHg 41-51 Venous Po2 29 mmHg Low 35-45 Venous O2 Saturation 59.9 % Low 70-80 Venous Blood Base Excess 1.1 0-4 27 Venous Bicarbonate Hco3 24.9 mmol/L 24-28 CBC Auto Diff 08/17/2017 White Blood Count [...] Blood Cells % 0 Laboratory test finding 08/17/2017 Acetaminophen < 15 g/mL 28 Alcohol < 10 mg/dL <10 Salicylate < 2.50 mg/dL <30 TSH (Thyroid Stim Horm) 2.76 mcIU/mL 0.34-5.60 Lamotrigine (Lamictal) 4.2 g/mL 2.5 - 15.0 29 Comp Metabolic Panel 08/17/2017 Sodium 133 mmol/L [...] Egfr Non- 72.5 >60 Egfr 93.2 >60 30 Glucose 543 mg/dL High 70-100 31 Laboratory test finding 08/09/2017 Point of Care Glucose 266 mg/dL High 70 -100 32 Urinalysis Profile 08/08/2017 Urine Color Yellow Urine Appearance Cloudy Urine Specific [place] 1.022 1.010-1.030 Urine pH 6.0 5-9 Urine Urobilinogen Negative Negative Urine Ketones Negative Negative Urine Protein Negative Negative Urine Leukocytes Negative Negative Urine Blood Negative Negative Urine Nitrite Negative Negative Urine Bilirubin Negative Negative Urine Glucose 3+(>=500 mg/dL) Negative Urine Drug SCR ED 08/08/2017 Amphetamine Ur Screen None Detected None Detect & Pain Clinic Barbiturates Urine Screen None Detected None Detect Benzodiazepine Urine Screen None Detected None Detect Urine Cannabinoids Screen None Detected None Detect Urine Cocaine Screen None Detected None Detect Urine Opiates Screen None Detected None Detect Urine Phencyclidine Screen None Detected None Detect 33 CBC Auto Diff 08/08/2017 White Blood [...] Blood Cells % 0 Comp Metabolic Panel 08/08/2017 Sodium 136 mmol/L [...] Egfr Non- 74.5 >60 Egfr 95.9 >60 34 Laboratory test finding 08/08/2017 Acetaminophen < 15 g/mL 35 Alcohol < 10 mg/dL <10 Salicylate < 2.50 mg/dL <30 TSH (Thyroid Stim Horm) 2.67 mcIU/mL 0.34-5.60 Lamotrigine (Lamictal) 2.5 g/mL 2.5 - 15.0 36 Laboratory test finding 08/04/2017 Point of Care Glucose 258 mg/dL High 70 -100 37 Laboratory test finding 08/04/2017 Point of Care Glucose 175 mg/dL High 70 -100 38 Laboratory test finding 08/04/2017 Point of Care Glucose 284 mg/dL High 70 -100 39 Urinalysis Profile 08/03/2017 Urine Color Yellow Urine Appearance Cloudy Urine Specific [place] 1.012 1.010-1.030 Urine pH 5.0 5-9 Urine [...] Present Absent Urine Amorphous Crystals Present Absent Urine Drug SCR ED 08/03/2017 Amphetamine Ur Screen None Detected None Detect & Pain Clinic Barbiturates Urine Screen None Detected None Detect Benzodiazepine Urine Screen None Detected None Detect Urine Cannabinoids Screen None Detected None Detect Urine Cocaine Screen None Detected None Detect Urine Opiates Screen None Detected None Detect Urine Phencyclidine Screen None Detected None Detect 40 Urine Culture And 08/03/2017 Urine Culture SEE RESULT BELOW 41 Sensitivities CBC Auto Diff 08/03/2017 White Blood Count [...] Blood Cells % 0 Laboratory test finding 08/03/2017 Acetaminophen < 15 g/mL 42 Alcohol < 10 mg/dL <10 Salicylate < [...] Egfr Non- 67.7 >60 Egfr 87.1 >60 43 Comp Metabolic Panel 08/02/2017 Sodium 133 mmol/L [...] Egfr Non- 76.7 >60 Egfr 98.7 >60 44 CBC Auto Diff 08/02/2017 White Blood Count [...] Blood Cells % 0 Laboratory test finding 08/02/2017 Troponin-I (TnI) 0.03 ng/mL <0.04 Laboratory test finding 08/02/2017 Troponin-I (TnI) 0.01 ng/mL <0.04 Urine Culture And 08/01/2017 Urine Culture SEE RESULT BELOW 45, 46 Sensitivities Laboratory test finding 06/13/2017 C-Peptide <pending> Glutamic Acid Decarboxylase <pending> Laboratory test finding 06/13/2017 Hemoglobin A1c 9.2 High 5-7 Laboratory test finding 06/13/2017 TSH (Thyroid Stim Horm) <pending> Cortisol <pending> Laboratory test finding 06/03/2017 Point of Care 184 mg/dL High 70-100 47 Glucose Laboratory test finding 06/03/2017 Point of Care 256 mg/dL High 70-100 48 Glucose Laboratory test finding 06/03/2017 Point of Care 329 mg/dL High 70-100 49 Glucose Laboratory test finding 06/03/2017 Point of Care 384 mg/dL High 70-100 50 Glucose Laboratory test finding 06/03/2017 Point of Care > 444 mg/dL High 70- 100 51 Glucose Laboratory test finding 06/03/2017 Point of Care > 444 mg/dL High 70- 100 52 Glucose 1 Because ethnic data is not always readily [...] 15-29 5 Kidney failure <15 (or dialysis) 2 Low risk: <1.00 Average risk: 1.00-3.00 High risk: >3.00 3 Certified Nuclear Medicine Technologist: [id number] 4 Certified Nuclear Medicine Technologist: [id number] 5 Because ethnic data is not always readily [...] 15-29 5 Kidney failure <15 (or dialysis) 6 Low risk: <1.00 Average risk: 1.00-3.00 High risk: >3.00 7 >100 to <200 pg/mL: likely compensated congestive heart failure (CHF) 200 to 400 pg/mL: likely moderate CHF >400 pg/mL: likely moderate to severe CHF 8 Because ethnic data is not always [...] 5 Kidney failure <15 (or dialysis) 9 Certified Nuclear Medicine Technologist: [id number] 10 Certified Nuclear Medicine Technologist: [id number] 11 Reference ranges based on room air. 12 Because ethnic data is not always readily [...] 15-29 5 Kidney failure <15 (or dialysis) 13 Acute inflammation: >10.00 14 Certified Nuclear Medicine Technologist: [id number] 15 Acute inflammation: >10.00 16 Because ethnic data is not always readily [...] 15-29 5 Kidney failure <15 (or dialysis) 17 Critical Result [id number] Called to [id number] at: 21:48:40 by:[id number] Read back by:[email or web address] 18 Certified Nuclear Medicine Technologist: [id number] 19 SEE RESULT BELOW Name: CECILIO ALFARO Cameron : [address]: Violeta Yusuf MD Acct: [id number] Unit: [id number] AGE: 52 Location: ED Re08/22/17 SEX: F Status: DEP ER SPEC: [id number] ANKUR: 08/22/[address] [facility] [address]: Violeta Yusuf MD REQ: [id number] RECD: 08/22/17 STATUS: TASHA BARFIELD DR: Chapo Aguila MD _ SOURCE: URINE SPDESC: ORDERED: Urine Culture Procedure Result Reported Site Urine Culture Final 08/23/17- 1607 ML Mixed seema; possible contamination. Suggest resubmission. * ML - [facility]) . END OF REPORT * ML=Testing performed at Main Lab DEPARTMENT OF PATHOLOGY, [address] [place] [address] Tay Gamboa M.D. Director [facility] # [id number] 20 [facility] Severe Sepsis and Septic Shock Management Bundle Measure requires all lactic acids initially measuring >2.0 mmol/L be repeated. 21 Reference ranges based on room air. 22 Certified Nuclear Medicine Technologist: [id number] 23 Certified Nuclear Medicine Technologist: [id number] 24 The urine specimen was tested at the listed cutoffs: Drug class test level (ng/mL) Amphetamines 500 Barbiturates 200 Benzodiazepine metabolites 200 Cocaine metabolites 150 Cannabinoids 50 Opiates 300 Pcp 25 Specimen was received without chain of custody. Results should be used for medical purposes only. 25 Certified Nuclear Medicine Technologist: [id number] 26 Certified Nuclear Medicine Technologist: [id number] 27 Reference ranges based on room air. 28 Therapeutic concentration: <50 ug/mL Toxic concentration: >120 ug/mL 29 ADDITIONAL INFORMATION This test was developed and its performance characteristics determined by [facility] in a manner consistent with CLIA requirements. This test has not been cleared or approved by the U.S. Food and Drug Administration. Test Performed by: [facility] Laboratories - [facility] [address] [place] [address] 30 Because ethnic data is not always readily [...] 15-29 5 Kidney failure <15 (or dialysis) 31 Critical Result [id number] Called to [id number] at: 18:00:03 by:[id number] Read back by:[id number] 32 Certified Nuclear Medicine Technologist: [id number] 33 The urine specimen was tested at the listed cutoffs: Drug class test level (ng/mL) Amphetamines 500 Barbiturates 200 Benzodiazepine metabolites 200 Cocaine metabolites 150 Cannabinoids 50 Opiates 300 Pcp 25 Specimen was received without chain of custody. Results should be used for medical purposes only. 34 Because ethnic data is not always readily [...] 15-29 5 Kidney failure <15 (or dialysis) 35 Therapeutic concentration: <50 ug/mL Toxic concentration: >120 ug/mL 36 ADDITIONAL INFORMATION This test was developed and its performance characteristics determined by [facility] in a manner consistent with CLIA requirements. This test has not been cleared or approved by the U.S. Food and Drug Administration. Test Performed by: [facility] - [facility] [address] [place] [address] 37 Certified Nuclear Medicine Technologist: [id number] 38 Certified Nuclear Medicine Technologist: [id number] 39 Certified Nuclear Medicine Technologist: [id number] 40 The urine specimen was tested at the listed cutoffs: Drug class test level (ng/mL) Amphetamines 500 Barbiturates 200 Benzodiazepine metabolites 200 Cocaine metabolites 150 Cannabinoids 50 Opiates 300 Pcp 25 Specimen was received without chain of custody. Results should be used for medical purposes only. 41 SEE RESULT BELOW Name: CECILIO ALFARO : [address]: Sendy Mcdowell MD Acct: [id number] Unit: [id number] AGE: 52 Location: ED Re08/03/17 SEX: F Status: REG ER SPEC: [id number] ANKUR: 08/03/[address] [facility] [address]: Sendy Mcdowell MD REQ: [id number] RECD: 08/03/17 STATUS: TASHA BARFIELD DR: Chapo Aguila MD _ [facility] ORDERED: Urine Culture Procedure Result Reported Site Urine Culture Final 08/05/17- 1225 ML No growth of clinically significant organisms * ML - MAIN LAB ([facility]) . END OF REPORT * ML=Testing performed at Main Lab DEPARTMENT OF PATHOLOGY, [address] [place] [address] Tay Gamboa M.D. Director [facility] # [id number] 42 Therapeutic concentration: <50 ug/mL Toxic concentration: >120 ug/mL 43 Because ethnic data is not always readily [...] 15-29 5 Kidney failure <15 (or dialysis) 44 Because ethnic data is not always readily [...] 15-29 5 Kidney failure <15 (or dialysis) 45 [id number] 46 SEE RESULT BELOW Name: CECILIO ALFARO : [address]: Any Ramirez MD Acct: [id number] Unit: [id number] AGE: 52 Location: [facility] Re08/01/17 SEX: F Status: DEP ER SPEC: [id number] ANKUR: 08/01/17-[address]: Any Ramirez MD REQ: [id number] RECD: 08/02/17-1105 STATUS: TASHA BARFIELD DR: Chapo Aguila MD _ SOURCE: URINE [facility]: ORDERED: Urine Culture COMMENTS: [id number] Procedure Result Reported Site Urine Culture Final 08/03/17- 1251 ML Mixed seema; possible contamination. Suggest resubmission. * ML - MAIN LAB ([facility]) . END OF REPORT * ML=Testing performed at Main Lab DEPARTMENT OF PATHOLOGY, [address] [place] [address] Tay Gamboa M.D. Director [facility] # [id number] 47 Certified Nuclear Medicine Technologist: [id number] 48 Certified Nuclear Medicine Technologist: [id number] 49 Certified Nuclear Medicine Technologist: [id number] 50 Certified Nuclear Medicine Technologist: [id number] 51 Certified Nuclear Medicine Technologist: [id number] 52 Certified Nuclear Medicine Technologist: [id number] Procedures Date CPT Code Description Status 10/11/2017 81096 Inject/Drain Joint/Bursa Major Completed 06/03/2017 64379 Carpal Tunnel Release Completed 06/03/2017 14975 Carpal Tunnel Release Completed 05/01/2016 Mammogram Completed 04/06/2016 10328 EEG Recording Awake & Drowsy Completed 04/03/2016 77290 EKG, Interpretation Only Completed 04/29/2015 31190 EEG Recording Awake & Drowsy Completed 04/16/2012 10916 EKG, Interpretation Only Completed 04/16/2012 27447 EKG, Interpretation Only Completed Encounters Type Date Location Provider CPT E/M Dx Office Visit 10/18/2017 [facility], [address] M75.31 9:00a Hilda LAWSON Office Visit 10/13/2017 [facility] Internal Medicine Chapo Aguila, [address] E11.65 1:40p - [place] Shravan Sahu Z12.31 Z12.11 Office Visit 09/28/2017 1:20p [facility] [facility] Chapo Aguila 05562 E11.65 Jaylene - Benedict Sahu M79.645 E03.9 Office Visit 09/19/2017 2:40p [facility] Internal Chapo Aguila, 20389 E11.65 Medicine - [address] Adelina M54.5 Office Visit 08/17/2017 2:10p [facility] Internal Medicine 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 09106 E11.9 Medicine - [address] M51.16 F31.31 E66.01 Z68.41 Office Visit 06/13/2017 3:20p [facility] Jun Aguila M.D. 64103 E11.9 Medicine - [address] E03.9 K21.9 E78.2 E66.2 Z68.41 F31.70 Z12.11 F17.210 B37.9 Z79.4 Office Visit 05/26/2017 8:45a [facility], 16919 G56.02 C.M.A. M.D. 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 E11.9 F79 Office Visit 05/20/2016 3:24p [facility] Sherita Sania, 05532 T39.1x2A Assoc,pc Hospitalists M.D. E11.9 F79 Office Visit 05/19/2016 3:24p [facility] Sherita Hohn, 38517 T39.1x2A Assoc,pc Hospitalists M.D. E11.9 F79 Office Visit 05/18/2016 3:23p [facility] Sherita Sania, 57573 T39.1x2A Assoc,pc Hospitalists M.D. E11.9 F79 Office Visit 05/17/2016 3:23p [facility] Ml Eveline, 66762 T39.1x2A Assoc,pc Hospitalists M.D. E11.9 F79 Office Visit 05/16/2016 3:22p [facility] Ml Eveline, 24701 T39.1x2A Assoc,pc Hospitalists M.D. E11.9 F79 Office Visit 05/15/2016 3:22p [facility] Mlaura Mosuqera, 38129 T39.1x2A Assoc,pc Hospitalists M.D. E11.9 F79 Office Visit 05/14/2016 3:22p [facility] Yara Daly, 27842 T39.1x2A Assoc,pc Hospitalists M.D. E11.9 F79 Office Visit 05/13/2016 3:21p [facility] Yara Daly, 67475 T39.1x2A Assoc,pc Hospitalists M.D. E11.9 F79 Office Visit 05/12/2016 3:21p [facility] Yara Addy, 55690 T39.1x2A Assoc,pc Hospitalists M.D. E11.9 F79 Office Visit 05/11/2016 3:20p [facility] Benjamin Snell, 96448 T39.1x2A Assoc,pc PA Hospitalists E11.9 F79 Office Visit 05/03/2016 11:09a [facility] [address] R73.9 Hospitalists J40 G89.4 Office Visit 04/07/2016 3:52p [facility] Ml Mosquera, 11636 R40.4 Hospitalists M.D. E13.9 F79 Z91.19 Office Visit 04/06/2016 3:52p [facility] Ml Mosquera, 20965 R40.4 Hospitalists M.D. E13.9 F79 Z91.19 Office Visit 04/05/2016 3:51p [facility] Yara Daly, 33851 R40.4 Hospitalists M.D. E13.9 F79 Z91.19 Office Visit 04/04/2016 3:51p [facility] Yara Daly, 21293 R40.4 Hospitalists M.D. E13.9 F79 Z91.19 Office Visit 04/03/2016 3:50p [facility] Rosi Juanita, LUZ 06660 R40.4 Hospitalists E13.9 F79 Z91.19 Office Visit 10/01/2015 10:08a [facility], 18783 M54.31 Assoc,pc Hospitalists N.P. E11.9 F60.3 Office Visit 09/28/2015 10:06a [facility] Ml Mosquera, 92232 M54.31 Hospitalists M.D. E11.9 Office Visit 04/24/2015 1:31p [facility] Conner Powers, 39713 276.1 Hospitalists M.DJarred 296.7 301.83 Office Visit 04/23/2015 1:30p [facility], Conner Powers, 36188 276.1 Hospitalists M.DJarred 250.00 296.7 301.83 Office Visit 04/22/2015 1:29p [facility], Quique Aden, 44317 276.1 Hospitalists M.D. 250.00 301.83 Office Visit 04/21/2015 1:28p [facility], Gray Conn, 19683 276.1 Hospitalists N.P. 296.7 301.83 250.00 Office Visit 11/27/2014 8:42a [facility], Sherita Lui, 83784 244.9 Hospitalists M.D. 250.02 301.83 Office Visit 04/17/2012 4:07p [facility], Yara Zepedar, 42036 969.09 Hospitalists M.D. 300.9 311 Office Visit 04/16/2012 4:35p [facility] Ceasar Anne-Marielucio, 61332 969.09 Assoc, Hospitalists M.D. 300.9 311 V11.1 Office Visit 10/18/2009 [facility] Jase Jesus M.D. 30942 789.00 Hospitalists 787.03 790.29 250.02 Office Visit 10/17/2009 3:00a [facility] Jase Jesus M.D. 12417 790.29 Hospitalists 789.00 295.70 401.9 Office Visit 10/16/2009 12:15a [facility] Sheirta Marshall, 44540 790.29 Assoc, Hospitalists M.D. 296.80 Plan of Care Future Appointment(s):11/03/2017 4:20 pm - Chapo Aguila M.D. at [facility] Internal Medicine - [address]11/09/2017 1:15 pm - Naveed Cuadra MD at [facility]..10/18/2017 - Naveed Cuadra, MDM75.31 Calcific tendinitis of right shoulderFollow up:Follow up: as scheduled in October
--- OUTSIDE RECORDS SUMMARY | 2017-11-02 08:51 | XMS REPORT ---
:1965 External Reference #:[id number] Author Organization [facility] Address [address] [address] Phone [phone] Care Team Providers Name Role Phone Chapo Aguila MD Primary Care Physician Unavailable Payers Type Date Identification Numbers Payment Provider Subscriber Medicare Primary Effective: Policy Number: Medicare Cecilio Alfaro 1990 [id number] PayID: [id number] [address] [place] [address] [employer] [employer] Policy Number: [id number] Medicaid Cecilio Alfaro Group Name: 1 [address] PayID: [id number] [place] [address] Problems Date Description Provider Status Onset: 06/13/2017 [...] 05/10/2017 Tramadol altered mental status active 05/10/2017 [facility] active Medications Medication Date Status Form Strength Qnty SIG Indications Ordering Provider Tresiba Flextouch 10/13/ Active Solution 100Unit/M 15ml 100 units E11.65 [facility] 2018 Pen-Injec L at bedtime Ayla cox M.D. Losartan 10/13/ Active Tablets 25mg 30tab 1 by mouth E11.65 [facility] Potassium 2018 s once a day Adelina Aguila Hydrocodone-Aceta 10/10/ Active Tablets 5-325mg 20tab 1 tab every [facility] minophen 2018 s 12h as Ayla coleman M.D. 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 Pantoprazole / Active Tablets 40mg 30tab take [...] Active Tablets 200mcg 90tab 1 tab daily [facility] Sodium 0000 s am in the Pachikara [...] Solution 100Unit/M 15ml 60 units at E11.65 [place] [address] - Pen-Injec L bedtime Pachikara 10/13/ t [...] 200Unit/M 18ml 30u SC in Alyson Mendez [facility] - Pen-Injec L Am and 70u Kamille Denson, 09/19/ t SC in PM M.D.,FACP 2018 Azithromycin 08/26/ Hx Tablets 250mg 2 tabs by [facility] 2018 - mouth on 08/31/ day 1; 1 2018 tab by mouth every day on days 2-5 Tramadol HCL 08/26/ Hx Tablets 50mg 30tab 1 tab by Lawrence 2018 - s mouth three D. [place], 09/28/ times a day M.D.,FACP 2018 Lancets 28G 08/08/ Hx Misc 28G 100un use with [facility] 2017 - [facility] one touch Pachikara 08/31/ meter, , M.DJarred 2018 check bs daily Onetouch 08/08/ Hx Strips 100un test twice [facility] 2017 - its daily and Pachikara 08/31/ as needed , M.D. 2018 Glucocom Blood 07/03/ Hx Kit W/Device 1unit one touch Erik Glucose 2017 - s glucometer [facility], Monitoring System 08/31/ to measure M.D. [...] Color Yellow Urine Appearance Clear Urine Specific [place] 1.010 1.010-1.030 Urine pH 5.0 5-9 Urine [...] Color Yellow Urine Appearance Cloudy Urine Specific [place] 1.023 1.010-1.030 Urine pH 6.0 5-9 Urine [...] Color Yellow Urine Appearance Cloudy Urine Specific [place] 1.016 1.010-1.030 Urine pH 5.0 5-9 Urine [...] Color Yellow Urine Appearance Cloudy Urine Specific [place] 1.022 1.010-1.030 Urine pH 6.0 5-9 Urine [...] Color Yellow Urine Appearance Cloudy Urine Specific [place] 1.012 1.010-1.030 Urine pH 5.0 5-9 Urine [...] Average risk: 1.00-3.00 High risk: >3.00 3 Drop Wire Hanger: [id number] 4 Drop Wire Hanger: [id number] 5 Because ethnic data is not always [...] 5 Kidney failure <15 (or dialysis) 9 Drop Wire Hanger: [id number] 10 Drop Wire Hanger: [id number] 11 Reference ranges based on room air. [...] (or dialysis) 13 Acute inflammation: >10.00 14 Drop Wire Hanger: [id number] 15 Acute inflammation: >10.00 16 Because ethnic [...] dialysis) 17 Critical Result [id number] Called to [id number] at: 21:48:40 by:[email or web address] Read back by:[email or web address] 18 Drop Wire Hanger: [id number] 19 SEE RESULT BELOW Name: CECILIO ALFARO Cameron : [address]: Violeta Yusuf MD Acct: [id number] Unit: [id number] AGE: 52 Location: ED Re08/22/17 SEX: F Status: DEP ER SPEC: [id number] ANKUR: 08/22/[address] [facility] [address]: Violeta Yusuf MD REQ: [id number] RECD: 08/22/17 STATUS: TASHA BARFIELD DR: Chapo Aguila MD _ SOURCE: URINE SPDESC: ORDERED: Urine Culture Procedure Result Reported Site Urine Culture Final 08/23/17- 1607 ML Mixed seema; possible contamination. Suggest resubmission. * ML - MAIN LAB ([facility]) . END OF REPORT * ML=Testing performed at Main Lab DEPARTMENT OF PATHOLOGY, [address] [place] [address] Tay Gamboa M.D. Director [facility] # [id number] 20 [facility] Severe Sepsis and Septic Shock Management Bundle Measure requires all lactic acids initially measuring >2.0 mmol/L be repeated. 21 Reference ranges based on room air. 22 Drop Wire Hanger: [id number] 23 Drop Wire Hanger: [id number] 24 The urine specimen was tested at the listed cutoffs: Drug class test level (ng/mL) Amphetamines 500 Barbiturates 200 Benzodiazepine metabolites 200 Cocaine metabolites 150 Cannabinoids 50 Opiates 300 Pcp 25 Specimen was received without chain of custody. Results should be used for medical purposes only. 25 Drop Wire Hanger: [id number] 26 Drop Wire Hanger: [id number] 27 Reference ranges based on room air. 28 Therapeutic concentration: <50 ug/mL Toxic concentration: >120 ug/mL 29 ADDITIONAL INFORMATION This test was developed and its performance characteristics determined by [facility] in a manner consistent with CLIA requirements. This test has not been cleared or approved by the U.S. Food and Drug Administration. Test Performed by: [facility] [address] [place] [address] 30 Because ethnic data is not always [...] dialysis) 31 Critical Result [id number] Called to [id number] at: 18:00:03 by:[email or web address] Read back by:[email or web address] 32 Drop Wire Hanger: [id number] 33 The urine specimen was tested at [...] developed and its performance characteristics determined by [facility] in a manner consistent with CLIA requirements. This test has not been cleared or approved by the U.S. Food and Drug Administration. Test Performed by: [facility] [address] [place] [address] 37 Drop Wire Hanger: [id number] 38 Drop Wire Hanger: [id number] 39 Drop Wire Hanger: [id number] 40 The urine specimen was tested at the listed cutoffs: Drug class test level (ng/mL) Amphetamines 500 Barbiturates 200 Benzodiazepine metabolites 200 Cocaine metabolites 150 Cannabinoids 50 Opiates 300 Pcp 25 Specimen was received without chain of custody. Results should be used for medical purposes only. 41 SEE RESULT BELOW Name: CECILIO ALFARO : [address]: Sendy Mcdowell MD Acct: [id number] Unit: [id number] AGE: 52 Location: ED Re08/03/17 SEX: F Status: REG ER SPEC: [id number] ANKUR: 08/03/[address] [facility] [address]: Sendy Mcdowell MD REQ: [id number] RECD: 08/03/17 STATUS: TASHA BARFIELD DR: Chapo Aguila MD _ [facility]: U[facility] Procedure Result Reported Site Urine Culture Final 08/05/17- 1225 ML No growth of clinically significant organisms * ML - MAIN LAB ([facility]) . END OF REPORT * ML=Testing performed at Main Lab DEPARTMENT OF PATHOLOGY, [address] [place] [address] Tay Gamboa M.D. Director [facility] # [id number] 42 Therapeutic concentration: <50 ug/mL Toxic concentration: [...] 5 Kidney failure <15 (or dialysis) 45 [id number] 46 SEE RESULT BELOW Name: CECILIO ALFARO : [address]: Any Ramirez MD Acct: [id number] Unit: [id number] AGE: 52 [facility] Re08/01/17 SEX: F Status: DEP ER SPEC: [id number] ANKUR: 08/01/17-[address]: Any Ramirez MD REQ: [id number] RECD: 08/02/17-1105 STATUS: TASHA BARFIELD DR: Chapo Aguila MD _ SOURCE: URINE [facility]: ORDERED: Urine Culture COMMENTS: [id number] Procedure Result Reported Site Urine Culture Final 08/03/17- 1251 ML Mixed seema; possible contamination. Suggest resubmission. * ML - MAIN LAB ([facility]) . END OF REPORT * ML=Testing performed at Main Lab DEPARTMENT OF PATHOLOGY, [address] [place] [address] Tay Gamboa M.D. Director [facility] # [id number] 47 Drop Wire Hanger: [id number] 48 Drop Wire Hanger: [id number] 49 Drop Wire Hanger: [id number] 50 Drop Wire Hanger: [id number] 51 Drop Wire Hanger: [id number] 52 Drop Wire Hanger: [id number] Procedures Date CPT Code Description Status 10/11/2017 81077 Inject/Drain Joint/Bursa Major Completed 06/03/2017 08630 Carpal Tunnel Release Completed 06/03/2017 98707 Carpal Tunnel Release Completed 05/01/2016 Mammogram Completed 04/06/2016 09824 EEG Recording Awake & Drowsy Completed 04/03/2016 65985 EKG, Interpretation Only Completed 04/29/2015 81277 EEG Recording Awake & Drowsy Completed 04/16/2012 00884 EKG, Interpretation Only Completed 04/16/2012 50923 EKG, Interpretation Only Completed Encounters Type Date Location Provider CPT E/M Dx Office Visit 10/18/2017 [facility], 26101 M75.31 9:00a Hilda LAWSON Office Visit 10/13/2017 [facility] Internal Medicine Chapo Aguila, 11834 E11.65 1:40p - [address] Shravan Sahu Z12.31 Z12.11 Office Visit 09/28/2017 1:20p [facility] Internal Chapo Aguila 79865 E11.65 Jaylene - Benedict Sahu M79.645 E03.9 Office Visit 09/19/2017 2:40p [facility] Internal Chapo Aguila, 36467 E11.65 Medicine - [address] Adelina M54.5 Office Visit 08/17/2017 2:10p [facility] Internal Medicine 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 98130 E11.9 Medicine - [address] M51.16 F31.31 E66.01 Z68.41 Office Visit 06/13/2017 3:20p [facility] Jun Aguila M.D. 37188 E11.9 Medicine - [address] E03.9 K21.9 E78.2 E66.2 Z68.41 F31.70 Z12.11 F17.210 B37.9 Z79.4 Office Visit 05/26/2017 8:45a [facility], 06146 G56.02 C.M.A. M.D. 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 E11.9 F79 Office Visit 05/20/2016 3:24p [facility] Sherita Sania, 05966 T39.1x2A Assoc,pc Hospitalists M.D. E11.9 F79 Office Visit 05/19/2016 3:24p [facility] Sherita Hohn, 67754 T39.1x2A Assoc,pc Hospitalists M.D. E11.9 F79 Office Visit 05/18/2016 3:23p [facility] Sherita Sania, 53753 T39.1x2A Assoc,pc Hospitalists M.D. E11.9 F79 Office Visit 05/17/2016 3:23p [facility] Ml Eveline, 63630 T39.1x2A Assoc,pc Hospitalists M.D. E11.9 F79 Office Visit 05/16/2016 3:22p [facility] Ml Eveline, 65823 T39.1x2A Assoc,pc Hospitalists M.D. E11.9 F79 Office Visit 05/15/2016 3:22p [facility] Mlaura Mosquera, 02348 T39.1x2A Assoc,pc Hospitalists M.D. E11.9 F79 Office Visit 05/14/2016 3:22p [facility] Yara Daly, 88036 T39.1x2A Assoc,pc Hospitalists M.D. E11.9 F79 Office Visit 05/13/2016 3:21p [facility] Yara Daly, 69186 T39.1x2A Assoc,pc Hospitalists M.D. E11.9 F79 Office Visit 05/12/2016 3:21p [facility] Yara Addy, 59730 T39.1x2A Assoc,pc Hospitalists M.D. E11.9 F79 Office Visit 05/11/2016 3:20p [facility] Benjamin Snell, 24208 T39.1x2A Assoc,pc PA Hospitalists E11.9 F79 Office Visit 05/03/2016 11:09a [facility] [address] R73.9 Hospitalists J40 G89.4 Office Visit 04/07/2016 3:52p [facility] Ml Mosquera, 25379 R40.4 Hospitalists M.D. E13.9 F79 Z91.19 Office Visit 04/06/2016 3:52p [facility] Ml Mosquera, 90230 R40.4 Hospitalists M.D. E13.9 F79 Z91.19 Office Visit 04/05/2016 3:51p [facility] Yara Daly, 49544 R40.4 Hospitalists M.D. E13.9 F79 Z91.19 Office Visit 04/04/2016 3:51p [facility] Yara Daly, 52215 R40.4 Hospitalists M.D. E13.9 F79 Z91.19 Office Visit 04/03/2016 3:50p [facility] Rosi Juanita, LUZ 49395 R40.4 Hospitalists E13.9 F79 Z91.19 Office Visit 10/01/2015 10:08a [facility], 02632 M54.31 Assoc,pc Hospitalists N.P. E11.9 F60.3 Office Visit 09/28/2015 10:06a [facility] Ml Mosquera, 55144 M54.31 Hospitalists M.D. E11.9 Office Visit 04/24/2015 1:31p [facility] Conner Powers, 98068 276.1 Hospitalists M.DJarred 296.7 301.83 Office Visit 04/23/2015 1:30p [facility], Conner Powers, 28742 276.1 Hospitalists M.DJarred 250.00 296.7 301.83 Office Visit 04/22/2015 1:29p [facility] Assoc, Quique Aden, 98211 276.1 Hospitalists M.D. 250.00 301.83 Office Visit 04/21/2015 1:28p [facility] Assoc, Gray Conn, 21103 276.1 Hospitalists N.P. 296.7 301.83 250.00 Office Visit 11/27/2014 8:42a [facility] Assoc, Sherita Lui, 08622 244.9 Hospitalists M.D. 250.02 301.83 Office Visit 04/17/2012 4:07p [facility] Assoc, Yara Zepedar, 71637 969.09 Hospitalists M.D. 300.9 311 Office Visit 04/16/2012 4:35p [facility] Ceasar Anne-Marielucio, 22533 969.09 Assoc, Hospitalists M.D. 300.9 311 V11.1 Office Visit 10/18/2009 [facility] 13670 789.00 Hospitalists 787.03 790.29 250.02 Office Visit 10/17/2009 3[facility] M.D. 18369 790.29 Hospitalists 789.00 295.70 401.9 Office Visit 10/16/2009 12:15a [facility] Sherita Marshall, 68286 790.29 Assoc, Hospitalists M.D. 296.80 Plan of Care Future Appointment(s):11/03/2017 4:20 pm - Chapo Aguila M.D. at [facility] Internal Medicine - [address]11/09/2017 1:15 pm - Naveed Cuadra MD at [facility]..10/18/2017 - Naveed Cuadra, MDM75.31 Calcific tendinitis of right shoulderFollow up:Follow up: as scheduled in October
--- OUTSIDE RECORDS SUMMARY | 2017-11-02 08:52 | XMS REPORT ---
:1965 External Reference #:[id number] Author Organization [facility] Address [address] [address] Phone [phone] Care Team Providers Name Role Phone Chapo Aguila MD Primary Care Physician Unavailable Payers Type Date Identification Numbers Payment Provider Subscriber Medicare Primary Effective: Policy Number: Medicare Cecilio Alfaro 1990 [id number] PayID: [id number] [address] [place] [address] [place] Policy Number: [id number] Medicaid Cecilio Alfaro Group Name: 1 [address] PayID: [id number] [place] [address] Problems Date Description Provider Status Onset: 06/13/2017 [...] 05/10/2017 Tramadol altered mental status active 05/10/2017 [place] active Medications Medication Date Status Form Strength Qnty SIG Indications Ordering Provider Tresiba Flextouch 10/13/ Active Solution 100Unit/M 15ml units at E11.65 [place] [address] Pen-Injec L bedtime Ayla cox M.D. Losartan 10/13/ Active Tablets 25mg 30tab 1 by mouth E11.65 [place] Potassium 2018 s once a day Adelina Aguila Hydrocodone-Aceta 10/10/ Active Tablets 5-325mg 20tab 1 tab every [place] minophen 2018 s 12h as Ayla coleman M.D. Onetouch Ultra 09/09/ Active Strips 100un test up to E11.9 [place] Pantoja 2018 its three times Kamille Denson, daily last MMarkel,FACP visit: Onetouch 08/31/ Active Misc 100un test blood E11.9 [place] Ultrasoft Lancets 2018 its 2-3 a day Kamille Denson, or as MJarredDJarred,FACP needed Onetouch Ultra 08/31/ Active Lancets 100un check bs [facility] 2018 its twice daily Adelina Aguila Mucinex 08/28/ Active Tablets 600mg 20tab 1 po bid [place] 2018 ER 12HR s prn Kamille Denson M.D.,FACP BD Pen 08/24/ Active Misc 32G X 4 120un use tid [place] Needle/Suzanna/Ultra 2018 mm its daily Kamille Denson, Fine/32G X 4mm MMarkel,FACP Fluconazole 08/22/ Active Tablets 150mg 2tabs one by [place] 2018 mouth november DJarred Denson, repeat in 3 M.D.,FACP days as needed Janumet 07/15/ Active Tablets 50-500mg 60tab 1 by mouth E11.9 [place] 2016 s twice a day Adelina Aguila Depend Pant Extra 06/14/ Active Misc 120un use 4 x a Chapo Hernandez 2016 day or as Ayla needed Adelina Nicotrol 06/13/ Active Inhaler 10mg 168un use 4-5 F17.210 Chapo 2016 its times daily Adelina Aguila Clotrimazole 06/13/ Active Cream 1% 90gm apply twice B37.9 [place] 2016 daily Adelina Aguila Acetaminophen-Cod 05/26/ Active Tablets 300-30mg 20tab 1 tab by Chapo montes de oca #3 2017 s mouth every [place] 4-6 hours , M.DJarred as needed for pain Ibuprofen / Active Tablets 600mg as needed Home 0000 Paty NP Ondansetron / Active Tablets 8mg every 6-8 Home 0000 Dispers hours as , Paty, [place] SPINE SPECIALIST Pantoprazole / Active Tablets 40mg 30tab take [...] Active Tablets 200mcg 90tab 1 tab daily Chapo Sodium 0000 s am in the [place] empty , M.D. stomach Atorvastatin / Active Tablets 40mg 90tab take one Chapo Calcium 0000 s tablet by [place] mouth every , M.D. day Novalog / Active 10 units Unknown 0000 before meals Onetouch Ultra / Active Kit w/Device check bs Unknown Mini 0000 twice daily Tresiba Flextouch 09/19/ Hx Solution 100Unit/M 15ml 60 units at E11.65 [place] [address] - Pen-Injec L bedtime [place]ikara 10/13/ t , M.D. 2018 Onetouch Ultra 08/31/ Hx Strips 100un [...] Alyson Mendez [facility] - Pen-Injec L Am and 70u Kamille Denson, 09/19/ t SC in PM M.D.,FACP 2018 Azithromycin 08/26/ Hx Tablets 250mg 2 tabs by [facility] 2018 - mouth on 08/31/ day 1; 1 2018 tab by mouth every day on days 2-5 Tramadol HCL 08/26/ Hx Tablets 50mg 30tab 1 tab by [place] 2018 - s mouth three D. Homeworth, 09/28/ times a day M.D.,FACP 2018 Lancets 28G 08/08/ Hx Misc 28G 100un use with [place] 2017 - [facility] one touch [place] 08/31/ meter, , M.DJarred 2018 check bs daily Onetouch 08/08/ Hx Strips 100un test twice [place] 2018 - its daily and [place] 08/31/ as needed , M.D. 2018 Glucocom Blood 07/03/ Hx Kit W/Device 1unit one touch Erik Glucose 2017 - s glucometer Kavita, Monitoring System 08/31/ to measure M.D. 2018 blood sugar daily Novolog Flexpen / Hx Solution 100Unit/M Inject 15 Unknown 0000 Pen-Injec L Units Subq t Three Times A Day With Meals Cyclobenzaprine / Hx Tablets 10mg as needed Unknown HCL 0000 - 2017 Naproxen / Hx Tablets 500mg 60tab twice daily [place] 0000 - s Ayla 07/15/ Adelina 2016 Deanaus Cifuenteskitaagustina / Hx Solution 100Unit/M 15ml 30 units SC Alyson Mendez 0000 - Pen-Injec L in Am, and Kamille Denson, 70 units FELISHA Sahu,FACP 2018 a hs Pictonix / Hx 40 mg daily Unknown 0000 Vital Signs Date Vital Result Comment 10/13/2017 Height 67 inches 5'7" Weight 251.50 [...] Color Yellow Urine Appearance Clear Urine Specific Mouthcard 1.010 1.010-1.030 Urine pH 5.0 5-9 Urine [...] Color Yellow Urine Appearance Cloudy Urine Specific Mouthcard 1.023 1.010-1.030 Urine pH 6.0 5-9 Urine [...] Color Yellow Urine Appearance Cloudy Urine Specific Mouthcard 1.016 1.010-1.030 Urine pH 5.0 5-9 Urine [...] Color Yellow Urine Appearance Cloudy Urine Specific Mouthcard 1.022 1.010-1.030 Urine pH 6.0 5-9 Urine [...] Color Yellow Urine Appearance Cloudy Urine Specific Mouthcard 1.012 1.010-1.030 Urine pH 5.0 5-9 Urine [...] Average risk: 1.00-3.00 High risk: >3.00 3 Vice President Of Advertising: [id number] 4 Vice President Of Advertising: [id number] 5 Because ethnic data is not always [...] 5 Kidney failure <15 (or dialysis) 9 Vice President Of Advertising: [id number] 10 Vice President Of Advertising: [id number] 11 Reference ranges based on room air. [...] (or dialysis) 13 Acute inflammation: >10.00 14 Vice President Of Advertising: [id number] 15 Acute inflammation: >10.00 16 Because ethnic [...] dialysis) 17 Critical Result [id number] Called to JIMENA at: 21:48:40 by:[id number] Read back by:[email or web address] 18 Vice President Of Advertising: [id number] 19 SEE RESULT BELOW Name: CECILIO ALFARO : [address]: Violeta Yusuf MD Acct: [id number] Unit: [id number] AGE: 52 Location: ED Re08/22/17 SEX: F Status: DEP ER SPEC: [id number] ANKUR: 08/22/[address] [facility] [address]: Violeta Yusuf MD REQ: [id number] RECD: 08/22/17 STATUS: TASHA BARFIELD DR: Chapo Aguila MD _ SOURCE: URINE SPDESC: ORDERED: Urine Culture Procedure Result Reported Site Urine Culture Final 08/23/17- 1607 ML Mixed seema; possible contamination. Suggest resubmission. * ML - MAIN LAB ([facility]) . END OF REPORT * ML=Testing performed at Main Lab DEPARTMENT OF PATHOLOGY, [address] [place] [address] Tay Gamboa M.D. Director [facility] # [id number] 20 [facility] Severe Sepsis and Septic Shock Management Bundle Measure requires all lactic acids initially measuring >2.0 mmol/L be repeated. 21 Reference ranges based on room air. 22 Vice President Of Advertising: [id number] 23 Vice President Of Advertising: [id number] 24 The urine specimen was tested at the listed cutoffs: Drug class test level (ng/mL) Amphetamines 500 Barbiturates 200 Benzodiazepine metabolites 200 Cocaine metabolites 150 Cannabinoids 50 Opiates 300 Pcp 25 Specimen was received without chain of custody. Results should be used for medical purposes only. 25 Vice President Of Advertising: [id number] 26 Vice President Of Advertising: [id number] 27 Reference ranges based on room air. 28 Therapeutic concentration: <50 ug/mL Toxic concentration: >120 ug/mL 29 ADDITIONAL INFORMATION This test was developed and its performance characteristics determined by [facility] in a manner consistent with CLIA requirements. This test has not been cleared or approved by the U.S. Food and Drug Administration. Test Performed by: [facility] - [address] [address] 30 Because ethnic data is not always [...] dialysis) 31 Critical Result [id number] Called to [id number] at: 18:00:03 by:[email or web address] Read back by:[id number] 32 Vice President Of Advertising: [id number] 33 The urine specimen was tested at [...] developed and its performance characteristics determined by [facility] in a manner consistent with CLIA requirements. This test has not been cleared or approved by the U.S. Food and Drug Administration. Test Performed by: [facility] [address] [place] [address] 37 Vice President Of Advertising: [id number] 38 Vice President Of Advertising: [id number] 39 Vice President Of Advertising: [id number] 40 The urine specimen was tested at the listed cutoffs: Drug class test level (ng/mL) Amphetamines 500 Barbiturates 200 Benzodiazepine metabolites 200 Cocaine metabolites 150 Cannabinoids 50 Opiates 300 Pcp 25 Specimen was received without chain of custody. Results should be used for medical purposes only. 41 SEE RESULT BELOW Name: CECILIO ALFARO Cameron : [address]: Sendy Mcdowell MD Acct: [id number] Unit: [id number] AGE: 52 Location: ED Re08/03/17 SEX: F Status: REG ER SPEC: [id number] ANKUR: 08/03/[address] [facility] [address]: Sendy Mcdowell MD REQ: [id number] RECD: 08/03/17 STATUS: TASHA BARFIELD DR: Chapo Aguila MD _ SOURCE: URINE SPDESC: ORDERED: Urine Culture Procedure Result Reported Site Urine Culture Final 08/05/17- 1225 ML No growth of clinically significant organisms * ML - MAIN LAB ([facility]) . END OF REPORT * ML=Testing performed at Main Lab DEPARTMENT OF PATHOLOGY, [address] [place] [address] Tay Gamboa M.D. Director [facility] # [id number] 42 Therapeutic concentration: <50 ug/mL Toxic concentration: [...] 5 Kidney failure <15 (or dialysis) 45 [id number] 46 SEE RESULT BELOW Name: ANGELINACECILIO Cameron : [address]: Any Ramirez MD Acct: [id number] Unit: [id number] AGE: 52 Location: [facility] Re08/01/17 SEX: F Status: DEP ER SPEC: [id number] ANKUR: 08/01/17-1250 [facility] DR: Any Ramirez MD REQ: [id number] RECD: 08/02/17-4745 STATUS: COMP [facility] DR: Chapo Aguila MD _ SOURCE: URINE SPDESC: ORDERED: Urine Culture COMMENTS: [id number] Procedure Result Reported Site Urine Culture Final 08/03/17- 1251 ML Mixed seema; possible contamination. Suggest resubmission. * ML - MAIN LAB ([facility]) . END OF REPORT * ML=Testing performed at Main Lab DEPARTMENT OF PATHOLOGY, [address] [place] [address] Tay Gamboa M.D. Director [facility] # [id number] 47 Vice President Of Advertising: [id number] 48 Vice President Of Advertising: [id number] 49 Vice President Of Advertising: [id number] 50 Vice President Of Advertising: [id number] 51 Vice President Of Advertising: [id number] 52 Vice President Of Advertising: [id number] Procedures Date CPT Code Description Status 10/11/2017 03987 Inject/Drain Joint/Bursa Major Completed 06/03/2017 91709 Carpal Tunnel Release Completed 06/03/2017 97591 Carpal Tunnel Release Completed 05/01/2016 Mammogram Completed 04/06/2016 21441 EEG Recording Awake & Drowsy Completed 04/03/2016 88338 EKG, Interpretation Only Completed 04/29/2015 03910 EEG Recording Awake & Drowsy Completed 04/16/2012 13822 EKG, Interpretation Only Completed 04/16/2012 12348 EKG, Interpretation Only Completed Encounters Type Date Location Provider CPT E/M Dx Office Visit 09/28/2017 [facility] Internal Medicine Chapo Aguila, 00198 E11.65 1:20p - Benedict Sahu M79.645 E03.9 Office Visit 09/19/2017 2:40p [facility] Internal Chapo Aguila, 10058 E11.65 Medicine - [address] Adelina M54.5 Office Visit 08/17/2017 2:10p [facility] [place] [address] F33.[address] - [address] R45.851 Office Visit 08/11/2017 1:20p [facility] Internal Chapo Aguila 13029 F31.31 Medicine - [address] Adelina M51.16 K63.5 K21.9 Office Visit 07/15/2017 11:00a [facility] Internal Chapo Aguila M.D. 18104 E11.9 Medicine - [address] M51.16 F31.31 E66.01 Z68.41 Office Visit 06/13/2017 3:20p [facility] Jun Aguila M.D. 66851 E11.9 Medicine - [address] E03.9 K21.9 E78.2 E66.2 Z68.41 F31.70 Z12.11 F17.210 B37.9 Z79.4 Office Visit 05/26/2017 8:45a [facility], [address]6905 G56.02 C.MJoel Sahu Office Visit 05/11/2017 10:45a [facility] [place] [address] R10.9 [facility] Office Visit 06/14/2016 1:40p [place] [address] L02.91 Assoc,pc Hospitalists E11.9 Z79.4 Office Visit 06/13/2016 1:39p [facility] Assoc,pc Alexus Elliott N.Gretchen 21119 L02.91 Hospitalists E11.9 Z79.4 Office Visit 05/21/2016 3:25p [facility] Harshil Lui, 35054 T39.1x2A Assoc,pc Hospitalists M.D. E11.9 F79 Office Visit 05/20/2016 3:24p Lainey Lui, 27048 T39.1x2A Assoc,pc Hospitalists M.D. E11.9 F79 Office Visit 05/19/2016 3:24p Lainey Lui, 46137 T39.1x2A Assoc,pc Hospitalists M.D. E11.9 F79 Office Visit 05/18/2016 3:23p [facility] Harshil Lui, 29629 T39.1x2A Assoc,pc Hospitalists M.D. E11.9 F79 Office Visit 05/17/2016 3:23p [facility] Harshil Mosquera, 02754 T39.1x2A Assoc,pc Hospitalists M.D. E11.9 F79 Office Visit 05/16/2016 3:22p [facility] Harshil Mosquera, 54844 T39.1x2A Assoc,pc Hospitalists M.D. E11.9 F79 Office Visit 05/15/2016 3:22p [facility] Harshil Mosquera, 02415 T39.1x2A Assoc,pc Hospitalists M.D. E11.9 F79 Office Visit 05/14/2016 3:22p [facility]arshil Daly, 21610 T39.1x2A Assoc,pc Hospitalists M.D. E11.9 F79 Office Visit 05/13/2016 3:21p [facility] Yarakevin Daly, 57832 T39.1x2A Assoc,pc Hospitalists M.D. E11.9 F79 Office Visit 05/12/2016 3:21p [facility] Ayra Addy, 03565 T39.1x2A Assoc,pc Hospitalists M.D. E11.9 F79 Office Visit 05/11/2016 3:20p [facility] Harshil Benjamin Snell, 46818 T39.1x2A Assoc,pc PA Hospitalists E11.9 F79 Office Visit 05/03/2016 11:09a [facility] Assoc,pc Anu Diaz, 74633 R73.9 Hospitalists J40 G89.4 Office Visit 04/07/2016 3:52p [facility] Ml Mosquera, 50327 R40.4 Hospitalists M.D. E13.9 F79 Z91.19 Office Visit 04/06/2016 3:52p [facility] Ml Mosquera, 24498 R40.4 Hospitalists M.D. E13.9 F79 Z91.19 Office Visit 04/05/2016 3:51p [facility] Yara Daly, 79057 R40.4 Hospitalists M.D. E13.9 F79 Z91.19 Office Visit 04/04/2016 3:51p [facility] Yara Daly, 70420 R40.4 Hospitalists M.D. E13.9 F79 Z91.19 Office Visit 04/03/2016 3:50p [facility], Rosi Grant, SPINE SPECIALIST 37574 R40.4 Hospitalists E13.9 F79 Z91.19 Office Visit 10/01/2015 10:08a [facility] [address]288 M54.31 Assoc, Hospitalists N.P. E11.9 F60.3 Office Visit 09/28/2015 10:06a [facility], Ml Matthewima, 63602 M54.31 Hospitalists M.D. E11.9 Office Visit 04/24/2015 1:31p [facility], Conner Boles, 77659 276.1 Hospitalists M.D. 296.7 301.83 Office Visit 04/23/2015 1:30p [facility], Conner Boles, 57774 276.1 Hospitalists M.D. 250.00 296.7 301.83 Office Visit 04/22/2015 1:29p [facility], Quique Aden, 25101 276.1 Hospitalists M.D. 250.00 301.83 Office Visit 04/21/2015 1:28p [facility], Gray Conn, 25339 276.1 Hospitalists N.P. 296.7 301.83 250.00 Office Visit 11/27/2014 8:42a [facility], Sherita Lui, 99371 244.9 Hospitalists M.D. 250.02 301.83 Office Visit 04/17[facility]2012 [facility]p [facility] Yara Daly, 61871 969.09 Hospitalists Adelina 300.9 311 Office Visit 04/16/2012 4:35p [facility] Ceasar Grajeda, 99359 969.09 Assoc, Hospitalists Adelina 300.9 311 V11.1 Office Visit 10/18/2009 [facility]seus [facility] 20870 789.00 Hospitalists 787.03 790.29 250.02 Office Visit 10/17/2009 3:00a [facility] Assoc,pc Jase Jesus M.D. 24149 790.29 Hospitalists 789.00 295.70 401.9 Office Visit 10/16/2009 12:15a [facility] Sherita Marshall, 63499 790.29 Assoc, Hospitalists Adelina 296.80 Plan of Care Future Appointment(s):11/03/2017 4:20 pm - Chapo Aguila M.D. at [facility] Internal Medicine - [address]11/09/2017 1:15 pm - Naveed Cuadra MD at [facility] [address]/13/2017 - Chapo Aguila M.D.E11.65 Type 2 diabetes mellitus with hyperglycemiaNew Medication:Tresiba Flextouch 100 Unit/ MLLosartan Potassium 25 mgComments:You are/are not meeting goal for blood sugar control. Changes to medications are/are not indicated. A yearly nutrition visit is available to all diabetics. ~B_Call back sugar readings of next 7 days~b_Referral:Erik Grant MD, OphthalmologyFollow up:2 weeks/medicare wellness physicalGoals:Goal Hemoglobin A1c is less than 7.0%. Goal Blood pressure is less than 140/90. Goal LDL (bad cholesterol) is less than 70.Z12.31 Encntr screen mammogram for malignant neoplasm of breastNew Xrays:Mammogram Screening BilZ12.11 Encounter for screening for malignant neoplasm of colonReferral:Ben Ovalles MD, Gastroenterology
--- OUTSIDE RECORDS SUMMARY | 2017-11-02 08:53 | XMS REPORT ---
:1965 External Reference #:[id number] Author Organization [facility] Address [address] [address] Phone [phone] Care Team Providers Name Role Phone Chapo Aguila MD Primary Care Physician Unavailable Payers Type Date Identification Numbers Payment Provider Subscriber Medicare Primary Effective: Policy Number: Medicare Cecilio Alfaro 1990 [id number] PayID: [id number] [address] [place] [address] [place] Policy Number: [id number] Medicaid Cecilio Alfaro Group Name: 1 [address] PayID: [id number] [place] [address] Problems Date Description Provider Status Onset: 06/13/2017 [...] 05/10/2017 Tramadol altered mental status active 05/10/2017 [place] active Medications Medication Date Status Form Strength Qnty SIG Indications Ordering Provider Hydrocodone-Aceta 10/10/ Active Tablets 5-325mg 20tab 1 tab every [facility] 2018 s 12h as Ayla coleman M.D. Tresiba Flextouch 09/19/ Active Solution 100Unit/M 15ml 60 units at E11.65 [place] [address] Pen-Injec L bedtime Ayla cox M.D. Onetouch Ultra 09/09/ Active Strips 100un test up to E11.9 [facility] Pantoja 2018 its three times Kamille Denson, daily last M.D.,FACP visit: Onetouch 08/31/ Active Misc 100un test blood E11.9 [facility] 2018 its 2-3 a day Kamille Denson, or as Adelina,FACP needed Onetouch Ultra 08/31/ Active Lancets 100un check [facility] 2018 its twice daily Adelina Aguila Mucinex 08/28/ Active Tablets 600mg 20tab 1 po bid [facility] 2018 ER 12HR s prn Kamille Denson M.D.,FACP BD Pen 08/24/ Active Misc 32G X 4 120un use tid [facility] Needle/Suzanna/Ultra 2018 mm its daily Kamille Denson, Fine/32G X 4mm M.DJarred,FACP Fluconazole 08/22/ Active Tablets 150mg 2tabs one by [facility] 2018 mouth may Kamille Denson, repeat in 3 M.D.,FACP days as needed Janumet 07/15/ Active Tablets 50-500mg 60tab 1 by mouth E11.9 Chapo 2016 s twice a day Adelina Aguila Depend Pant Extra 06/14/ Active Misc 120un use 4 x a Chapo Hernandez 2016 day or as Ayla coleman M.D. Nicotrol 06/13/ Active Inhaler 10mg 168un use 4-5 F17.210 Chapo 2016 its times daily Adelina Aguila Clotrimazole 06/13/ Active Cream 1% 90gm apply twice B37.9 Chapo 2016 daily Adelina Aguila Acetaminophen-Cod 05/26/ Active Tablets 300-30mg 20tab 1 tab by [facility] 2017 s mouth every Ayla 4-6 hours , M.DJarred as needed for pain Ibuprofen / Active Tablets 600mg as needed Home 0000 , LUZ Newman Ondansetron / Active Tablets 8mg every 6-8 Home 0000 Dispers hours as Paty needed CHAPTER RELATIONS ADMINISTRATOR Pantoprazole / Active Tablets 40mg 30tab take [address] [place] [address] s tablet by Pachika mouth once , M.D. daily Lamotrigine / Active Tablets 150mg take 1 Unknown 0000 tablet by mouth twice a day Sertraline HCL / Active Tablets 100mg Take 1+1/2 Unknown 0000 Tablets By Mouth Once Daily Olanzapine / Active Tablets 7.5mg daily Unknown 0000 Trazodone HCL / Active Tablets 100mg 4 tabs at Aurea, 0000 bedtime MD Sarwat Latchristopher / Active Tablets 80mg daily Unknown 0000 Levothyroxine / Active Tablets 50mcg 90tab 1 tab daily [place] Sodium 0000 s in the [place] empty , M.D. stomach Levothyroxine / Active Tablets 200mcg 90tab 1 tab daily [place] Sodium 0000 s am in the [place] empty , M.D. stomach Atorvastatin / Active Tablets 40mg 90tab take one [place] Calcium 0000 s tablet by [place] mouth every , M.D. day Novalog / Active 10 units Unknown 0000 before meals Onetouch Ultra / Active Kit w/Device check bs Unknown Mini 0000 twice daily Onetouch Ultra 08/31/ Hx Strips 100un test up to E11.9 [facility] 2018 - its three times DJarred Denson, 09/09/ daily last M.DJarred,FACP 2018 visit: Doxycycline 08/28/ Hx Capsules 100mg 13cap 1 by mouth Unknown Monohydrate 2018 - s twice a day 09/04/ x 7 days 2018 Tresiba Flextouch 08/26/ Hx Solution 200Unit/M 18ml 30u SC in [facility] 2017 - Pen-Injec L Am and 70u Kamille Denson, SC in PM M.D.,FACP 2018 Azithromycin 08/26/ Hx Tablets 250mg 2 tabs by Unknown 2018 - mouth on 08/31/ day 1; 2017 tab by mouth every day on days 2-5 Tramadol HCL 08/26/ Hx Tablets 50mg 30tab 1 tab by Lawrence 2018 - s mouth three D. Janiya, 09/28/ times a day M.DJarred,FACP 2018 Lancets 28G 08/08/ Hx Misc 28G 100un use with [place] 2017 - [facility] one touch [place] 08/31/ meter, , M.D. 2018 check bs daily Onetouch 08/08/ Hx Strips 100un test twice [place] 2018 - its daily and [place] 08/31/ as needed , M.D. 2018 Glucocom Blood 07/03/ Hx Kit W/Device 1unit one touch Erik Glucose 2016 - s glucometer [facility] Monitoring System 08/31/ to measure M.D. 2018 blood sugar daily Novolog Flexpen / Hx Solution 100Unit/M Inject 15 Unknown 0000 Pen-Injec L Units Subq t Three Times A Day With Meals Cyclobenzaprine / Hx Tablets 10mg as needed Unknown HCL 0000 - 2018 Naproxen / Hx Tablets 500mg 60tab twice daily [place] - s [place] 07/15/ , M.D. 2017 Lantus Solostar / Hx Solution 100Unit/M 15ml 30 units [facility] Am, and Kamille Denson, 08/26/ t 70 units SC M.DJarred,FACP 2018 a hs Pictonix / Hx 40 mg daily Unknown 0000 Vital Signs Date Vital Result Comment 10/11/2017 Height 67 inches 5'7" Weight 249.00 [...] Cells % 0 Laboratory test finding 08/26/2017 Partial Thrombo Time 27.7 seconds 26.0 -36.3 PTT Laboratory test finding 08/26/2017 Troponin-I (TnI) 0.01 [...] 08/26/2017 Inr 0.82 0.77-1.02 Laboratory test finding 08/25/2017 Point of Care Glucose 157 mg/dL High 70 -100 9 Laboratory test finding 08/25/2017 C Reactive Protein 3.27 mg/L < 5.00 10 Comp Metabolic Panel 08/25/2017 Sodium 134 mmol/L [...] Egfr Non- 68.6 >60 Egfr 88.3 >60 11 Urinalysis Profile 08/25/2017 Urine Color Yellow Urine Appearance Clear Urine Specific [place] 1.010 1.010-1.030 Urine pH 5.0 5-9 Urine Urobilinogen Negative Negative Urine Ketones Negative Negative Urine Protein Negative Negative Urine Leukocytes Negative Negative Urine Blood Negative Negative Urine Nitrite Negative Negative Urine Bilirubin Negative Negative Urine Glucose 3+(>=500 mg/dL) Negative Laboratory test finding 08/25/2017 Point of Care Glucose 289 mg/dL High 70 -100 12 CBC Auto Diff 08/25/2017 White Blood Count [...] 70-80 Venous Blood Base Excess 0.1 0-4 13 Venous Bicarbonate Hco3 25.0 mmol/L 24-28 Laboratory test finding 08/23/2017 Point of Care Glucose 224 mg/dL High 70 -100 14 Laboratory test finding 08/22/2017 Glucose 417 mg/dL High 70-100 Laboratory test finding 08/22/2017 Magnesium 2.0 mg/dL [...] High 70-100 17 Laboratory test finding 08/22/2017 Lactic Acid 1.3 mmol/L 0.5-2.0 18 Laboratory test finding 08/22/2017 Point of Care > 444 mg/dL High 70- 100 19 Glucose Urinalysis Profile 08/22/2017 Urine Color Yellow Urine Appearance Cloudy Urine Specific [place] 1.023 1.010-1.030 Urine pH 6.0 5-9 Urine [...] And 08/22/2017 Urine Culture SEE RESULT BELOW 20 Sensitivities Inr/Protime 08/22/2017 Inr 0.91 0.77-1.02 Venous Blood [...] Blood Cells % 0.1 Laboratory test finding 08/18/2017 Point of Care 180 mg/dL High 70-100 22 Glucose Laboratory test finding 08/17/2017 Point of Care > 444 mg/dL High 70- 100 23 Glucose CBC Auto Diff 08/17/2017 White Blood Count [...] Blood Cells % 0 Comp Metabolic Panel 08/17/2017 Sodium 133 mmol/L [...] 24 Glucose 543 mg/dL High 70-100 25 Laboratory test finding 08/17/2017 Acetaminophen < 15 g/mL 26 Alcohol < 10 mg/dL <10 Salicylate < 2.50 mg/dL <30 TSH (Thyroid Stim Horm) 2.76 mcIU/mL 0.34-5.60 Lamotrigine (Lamictal) 4.2 g/mL 2.5 - 15.0 27 Venous Blood Gas 08/17/2017 Venous Blood pH 7.36 7.33-7.43 Venous Pco2 48 mmHg 41-51 Venous Po2 29 mmHg Low 35-45 Venous O2 Saturation 59.9 % Low 70-80 Venous Blood Base Excess 1.1 0-4 28 Venous Bicarbonate Hco3 24.9 mmol/L 24-28 Urinalysis Profile 08/17/2017 Urine Color Yellow Urine Appearance Cloudy Urine Specific [place] 1.016 1.010-1.030 Urine pH 5.0 5-9 Urine Urobilinogen Negative Negative Urine Ketones Negative Negative Urine Protein Negative Negative Urine Leukocytes Negative Negative Urine Blood Negative Negative Urine Nitrite Negative Negative Urine Bilirubin Negative Negative Urine Glucose 3+(>=500 mg/dL) Negative Laboratory test 08/17/2017 Point of Care > 444 mg/dL High 70-100 29 finding Glucose Urine Drug SCR ED 08/17/2017 Amphetamine Ur None Detected None Detect & Pain Clinic Screen Barbiturates Urine Screen None Detected None Detect Benzodiazepine Urine Screen None Detected None Detect Urine Cannabinoids Screen None Detected None Detect Urine Cocaine Screen None Detected None Detect Urine Opiates Screen None Detected None Detect Urine Phencyclidine Screen None Detected None Detect 30 Laboratory test finding 08/17/2017 Point of Care Glucose 276 mg/dL High 70 -100 31 Laboratory test finding 08/09/2017 Point of Care Glucose 266 mg/dL High 70 -100 32 Urinalysis Profile 08/08/2017 Urine Color Yellow Urine Appearance Cloudy Urine Specific Tatum 1.022 1.010-1.030 Urine pH 6.0 5-9 Urine [...] Color Yellow Urine Appearance Cloudy Urine Specific Tatum 1.012 1.010-1.030 Urine pH 5.0 5-9 Urine [...] Blood Cells % 0 Comp Metabolic Panel 08/03/2017 Sodium 132 mmol/L [...] Egfr Non- 67.7 >60 Egfr 87.1 >60 42 Laboratory test finding 08/03/2017 Acetaminophen < 15 g/mL 43 Alcohol < 10 mg/dL <10 Salicylate < 2.50 mg/dL <30 TSH (Thyroid Stim Horm) 0.60 mcIU/mL 0.34-5.60 Laboratory test finding 08/02/2017 Troponin-I (TnI) 0.01 [...] Non- 76.7 >60 Egfr 98.7 >60 44 Laboratory test 08/02/2017 Troponin-I (TnI) 0.03 ng/mL <0.04 finding Urine Culture And 08/01/2017 Urine Culture SEE RESULT 45, 46 Sensitivities BELOW Laboratory test 06/13/2017 TSH (Thyroid Stim <pending> finding Horm) Cortisol <pending> Laboratory test finding 06/13/2017 C-Peptide <pending> Glutamic Acid Decarboxylase <pending> Laboratory test 06/13/2017 Hemoglobin A1c 9.2 High 5-7 finding Laboratory test 06/03/2017 Point of Care Glucose 184 mg/dL High 70-100 47 finding Laboratory test 06/03/2017 Point of Care Glucose 256 mg/dL High 70-100 48 finding Laboratory test 06/03/2017 Point of Care Glucose 329 mg/dL High 70-100 49 finding Laboratory test 06/03/2017 Point of Care Glucose 384 mg/dL High 70-100 50 finding Laboratory test 06/03/2017 Point of Care Glucose > 444 mg/dL High 70- 100 51 finding Laboratory test 06/03/2017 Point of Care Glucose > 444 mg/dL High 70- 100 52 finding 1 Because ethnic data is not always [...] Average risk: 1.00-3.00 High risk: >3.00 3 Account Installation Specialist: [id number] 4 Account Installation Specialist: [id number] 5 Because ethnic data is not always [...] 5 Kidney failure <15 (or dialysis) 9 Account Installation Specialist: [id number] 10 Acute inflammation: >10.00 11 Because ethnic data is not always readily [...] 15-29 5 Kidney failure <15 (or dialysis) 12 Account Installation Specialist: [id number] 13 Reference ranges based on room air. 14 Account Installation Specialist: [id number] 15 Acute inflammation: >10.00 16 Because ethnic [...] dialysis) 17 Critical Result [id number] Called to [id number] at: 21:48:40 by:[id number] Read back by:[id number] 18 [facility] Severe Sepsis and Septic Shock Management Bundle Measure requires all lactic acids initially measuring >2.0 mmol/L be repeated. 19 Account Installation Specialist: [id number] 20 SEE RESULT BELOW Name: CECILIO ALFARO : [address]: Violeta Yusuf MD Acct: [id number] Unit: [id number] AGE: 52 Location: ED Re08/22/17 SEX: F Status: DEP ER SPEC: [id number] ANKUR: 08/22/[address]: Violeta Yusuf MD REQ: [id number] RECD: 08/22/17 STATUS: TASHA BARFIELD DR: Chapo Aguila MD _ SOURCE: URINE [facility]: ORDERED: Urine Culture Procedure Result Reported Site Urine Culture Final 08/23/17- 1607 ML Mixed seema; possible contamination. Suggest resubmission. * ML - MAIN LAB ([facility]) . END OF REPORT * ML=Testing performed at Main Lab DEPARTMENT OF PATHOLOGY, [address] [address] Tay Gamboa M.D. Director [facility] # [id number] 21 Reference ranges based on room air. 22 Account Installation Specialist: [id number] 23 Account Installation Specialist: [id number] 24 Because ethnic data is not always [...] dialysis) 25 Critical Result [id number] Called to [id number] at: 18:00:03 by:[id number] Read back by:[id number] 26 Therapeutic concentration: <50 ug/mL Toxic concentration: >120 ug/mL 27 ADDITIONAL INFORMATION This test was developed and its performance characteristics determined by [facility] in a manner consistent with CLIA requirements. This test has not been cleared or approved by the U.S. Food and Drug Administration. Test Performed by: [facility] [address] [place] [address] 28 Reference ranges based on room air. 29 Account Installation Specialist: [id number] 30 The urine specimen was tested at the listed cutoffs: Drug class test level (ng/mL) Amphetamines 500 Barbiturates 200 Benzodiazepine metabolites 200 Cocaine metabolites 150 Cannabinoids 50 Opiates 300 Pcp 25 Specimen was received without chain of custody. Results should be used for medical purposes only. 31 Account Installation Specialist: [id number] 32 Account Installation Specialist: [id number] 33 The urine specimen was tested at [...] and its performance characteristics determined by [facility] in a manner consistent with CLIA requirements. This test has not been cleared or approved by the U.S. Food and Drug Administration. Test Performed by: [facility] [address] [place] [address] 37 Account Installation Specialist: [id number] 38 Account Installation Specialist: [id number] 39 Account Installation Specialist: [id number] 40 The urine specimen was tested at the listed cutoffs: Drug class test level (ng/mL) Amphetamines 500 Barbiturates 200 Benzodiazepine metabolites 200 Cocaine metabolites 150 Cannabinoids 50 Opiates 300 Pcp 25 Specimen was received without chain of custody. Results should be used for medical purposes only. 41 SEE RESULT BELOW Name: CECILIO ALFARO : [address]: Sendy Mcdowell MD Acct: [id number] Unit: [id number] AGE: 52 Location: ED Re08/03/17 SEX: F Status: REG ER SPEC: [id number] ANKUR: 08/03/[address] [facility] [address]: Sendy Mcdowell MD REQ: [id number] RECD: 08/03/17 STATUS: TASHA BARFIELD DR: Chapo Aguila MD _ SOURCE: URINE SPDESC: ORDERED: Urine Culture Procedure Result Reported Site Urine Culture Final 08/05/17- 1225 ML No growth of clinically significant organisms * ML - MAIN LAB ([facility]) . END OF REPORT * ML=Testing performed at Main Lab DEPARTMENT OF PATHOLOGY, [address] [place] [address] Tay Gamboa M.D. Director [facility] # [id number] 42 Because ethnic data is not always [...] 5 Kidney failure <15 (or dialysis) 43 Therapeutic concentration: <50 ug/mL Toxic concentration: >120 ug/mL 44 Because ethnic data is not always [...] 5 Kidney failure <15 (or dialysis) 45 [id number] 46 SEE RESULT BELOW Name: CECILIO ALFARO : [address]: Any Ramirez MD Acct: [id number] Unit: [id number] AGE: 52 Location: [facility] Re08/01/17 SEX: F Status: DEP ER SPEC: [id number] ANKUR: 08/01/17-[address] [facility] [address]: Any Ramirez MD REQ: [id number] RECD: 08/02/17-1105 STATUS: COMP KENIAHR DR: Chapo Aguila MD _ SOURCE: URINE SPDESC: ORDERED: Urine Culture COMMENTS: [id number] Procedure Result Reported Site Urine Culture Final 08/03/17- 1251 ML Mixed seema; possible contamination. Suggest resubmission. * ML - MAIN LAB ([facility]) . END OF REPORT * ML=Testing performed at Main Lab DEPARTMENT OF PATHOLOGY, [address] [place] [address] Tay Gamboa M.D. Director [facility] # [id number] 47 Account Installation Specialist: [id number] Account Installation Specialist: [id number] 49 Account Installation Specialist: [id number] 50 Account Installation Specialist: [id number] 51 Account Installation Specialist: [id number] 52 Account Installation Specialist: [id number] Procedures Date CPT Code Description Status 10/11/2017 04386 Inject/Drain Joint/Bursa Major Completed 06/03/2017 63521 Carpal Tunnel Release Completed 06/03/2017 32684 Carpal Tunnel Release Completed 05/01/2016 Mammogram Completed 04/06/2016 81018 EEG Recording Awake & Drowsy Completed 04/03/2016 95312 EKG, Interpretation Only Completed 04/29/2015 98105 EEG Recording Awake & Drowsy Completed 04/16/2012 09009 EKG, Interpretation Only Completed 04/16/2012 17962 EKG, Interpretation Only Completed Encounters Type Date Location Provider CPT E/M Dx Office Visit 09/28/2017 [facility] Chapo Aguila 42160 E11.65 1:20p - Benedict Sahu M79.645 E03.9 Office Visit 09/19/2017 2:40p [facility] Chapo Aguila 80609 E11.65 Medicine - [place] Shravan Sahu M54.5 Office Visit 08/17/2017 2:10p [facility] Lachelle Berrios, CHAPTER RELATIONS ADMINISTRATOR [address] F33.[address] R45.851 Office Visit 08/11/2017 1:20p [facility] Chapo Aguila, 12528 F31.31 Medicine - [place] Shravan Sahu M51.16 K63.5 K21.9 Office Visit 07/15/2017 11:00a [facility] Chapo Aguila M.D. 30897 E11.9 Medicine - [address] M51.16 F31.31 E66.01 Z68.41 Office Visit 06/13/2017 3:20p [facility] Chapo Aguila M.D. 96800 E11.9 Medicine - [address] E03.9 K21.9 E78.2 E66.2 Z68.41 F31.70 Z12.11 F17.210 B37.9 Z79.4 Office Visit 05/26/2017 8:45a [facility] Marline Duarte, 05275 G56.02 CCristofer Sahu Office Visit 05/11/2017 10:45a [facility] [place] [address] R10.9 [facility] Office Visit 06/14/2016 1:40p [place] Harshil Grant, LUZ [address] L02.91 Assoc,pc Hospitalists E11.9 Z79.4 Office Visit 06/13/2016 1:39p [facility] Ovidio Aldana.Gretchen 10504 L02.91 Hospitalists E11.9 Z79.4 Office Visit 05/21/2016 3:25p [place] [facility] Sherita Lui, 30444 T39.1x2A [facility] Hospitalists M.Kamille E11.9 F79 Office Visit 05/20/2016 3:24p [place] Harshil Lui, 39111 T39.1x2A [facility]oc[facility] Hospitalists M.DJarred E11.9 F79 Office Visit 05/19/2016 3:24p [place] Harshil Lui, 66736 T39.1x2A [facility]oc[facility] Hospitalists MMarkel E11.9 F79 Office Visit 05/18/2016 3:23p [place] Harshil Lui, 49490 T39.1x2A [facility]oc[facility] Hospitalists M.D. E11.9 F79 Office Visit 05/17/2016 3:23p [facility] Ml Mosquera, 07909 T39.1x2A Assoc,pc Hospitalists M.D. E11.9 F79 Office Visit 05/16/2016 3:22p [facility] Ml Mosquera, 01713 T39.1x2A Assoc,pc Hospitalists M.D. E11.9 F79 Office Visit 05/15/2016 3:22p [facility] Ml Mosquera, 67107 T39.1x2A Assoc,pc Hospitalists M.D. E11.9 F79 Office Visit 05/14/2016 3:22p [facility] Yara Addy, 62067 T39.1x2A [facility]oc,pc Hospitalists M.D. E11.9 F79 Office Visit 05/13/2016 3:21p [facility] Yarakevin Zepedar, 08120 T39.1x2A Assoc,pc Hospitalists M.D. E11.9 F79 Office Visit 05/12/2016 3:21p [facility] Yara Addy, 25743 T39.1x2A Assoc,pc Hospitalists M.D. E11.9 F79 Office Visit 05/11/2016 3:20p [facility] Benjamin RazaAnalilia, 32322 T39.1x2A Assoc,pc PA Hospitalists E11.9 F79 Office Visit 05/03/2016 11:09a [facility] [place] [address] R73.9 Hospitalists J40 G89.4 Office Visit 04/07/2016 3:52p [facility] Ml Mosquera, 31640 R40.4 Hospitalists M.D. E13.9 F79 Z91.19 Office Visit 04/06/2016 3:52p [facility] Ml Eveline, 20040 R40.4 Hospitalists M.D. E13.9 F79 Z91.19 Office Visit 04/05/2016 3:51p [facility] Yarakevin Zepedar, 13986 R40.4 Hospitalists M.D. E13.9 F79 Z91.19 Office Visit 04/04/2016 3:51p [facility], Yara Zepedar, 10851 R40.4 Hospitalists M.D. E13.9 F79 Z91.19 Office Visit 04/03/2016 3:50p [facility], Rosi Grant, CHAPTER RELATIONS ADMINISTRATOR 56663 R40.4 Hospitalists E13.9 F79 Z91.19 Office Visit 10/01/2015 10:08a [facility] 15323 M54.31 Assoc, Hospitalists N.P. E11.9 F60.3 Office Visit 09/28/2015 10:06a [facility], Ml Mosquera, 60471 M54.31 Hospitalists M.D. E11.9 Office Visit 04/24/2015 1:31p [facility], Conner Powers, 23755 276.1 Hospitalists M.D. 296.7 301.83 Office Visit 04/23/2015 1:30p [facility] Conner Powers, 26975 276.1 Hospitalists M.D. 250.00 296.7 301.83 Office Visit 04/22/2015 1:29p [facility], Quique Aden, 33926 276.1 Hospitalists M.D. 250.00 301.83 Office Visit 04/21/2015 1:28p [facility], Gray Conn, 50179 276.1 Hospitalists N.P. 296.7 301.83 250.00 Office Visit 11/27/2014 8:42a [place] [facility], Sherita Lui, 82374 244.9 Hospitalists M.D. 250.02 301.83 Office Visit 04/17/2012 4:07p [facility], Yara aDly, 94364 969.09 Hospitalists M.D. 300.9 311 Office Visit 04/16/2012 4:35p [facility] Ceasar Grajeda, 01360 969.09 Assoc, Hospitalists M.D. 300.9 311 V11.1 Office Visit 10/18/2009 1:00a [facility], Jase Jesus M.D. 04921 789.00 Hospitalists 787.03 790.29 250.02 Office Visit 10/17/2009 3:00a [facility] Assoc,pc Jase Jesus M.D. 99895 790.29 Hospitalists 789.00 295.70 401.9 Office Visit 10/16/2009 12:15a [facility] Sherita Marshall, 78288 790.29 Assoc,pc Hospitalists Adelina 296.80 Plan of Care Future Appointment(s):11/09/2017 1:15 pm - Naveed Cuadra MD at [facility]10/13/2017 1:40 pm - Chapo Aguila M.D. at [facility] - [address]/11/2017 - Naveed Cuadra, MDM75.31 Calcific tendinitis of right shoulderNew Therapy:Physical TherapyFollow up: Follow up: 4 weeks
[2017-11-02 08:58] LABS: ABS Basophils 0 10^3/ul (0-0.2); ABS Eosinophils 0.2 10^3/ul (0-0.6); ABS Lymphocytes 2.2 10^3/ul (1.0-4.8); ABS Monocytes 0.4 10^3/ul (0-0.8); ABS Neutrophils 5.7 10^3/ul (1.5-7.7); ABS Nucleated RBC 0 10^3/ul; Eosinophil % 2.2 % (0-6); Hematocrit 37 % (35-47); Hemoglobin 11.8 g/dl (12.0-16.0); Lymphocyte % 25.6 % (25-47); Mean Corpuscular HGB Conc 32 g/dl (31-36); Mean Corpuscular Hemoglobin 27 pg (27-31); Mean Corpuscular Volume 84 fL (80-97); Mean Platelet Volume 8.4 um3 (7.4-10.4); Nucleated Red Blood Cells % 0; Platelet Count 207 10^3/ul (150-450); Red Cell Distribution Width 18 % (10.5-15); White Blood Count 8.5 10^3/ul (3.5-10.8)
[2017-11-02 09:18] LABS: EGFR Non-African American 70.5 (>60)
[2017-11-02 09:26] LABS: Urine Appearance Clear; Urine Blood Negative (Negative); Urine Color Yellow; Urine Ketones Negative (Negative); Urine Protein Negative (Negative); Urine Specific Gravity 1.018 (1.010-1.030); Urine Urobilinogen Negative (Negative)
--- NOTE | 2017-11-02 09:40 | RAD ---
INDICATION: Altered mental status COMPARISON: CT brain August 26, 2017 TECHNIQUE: Noncontrast axial source images were acquired from the skull base to the vertex. FINDINGS: Ventricles/sulci: The ventricles and cisterns are normal in size and configuration for age. Brain parenchyma: There is no focal parenchymal finding, evidence of intracranial mass, or intracranial mass effect. Intracranial hemorrhage:None. Extra-axial spaces: There are no abnormal extra axial fluid collections or evidence of extra-axial mass. Calvarium: There is no calvarial fracture or other calvarial abnormality. Scalp: There is no evidence of scalp or extracalvarial soft tissue abnormality. Paranasal sinuses/mastoid: The paranasal sinuses and mastoid air cells are clear. Other: None. IMPRESSION: No acute intracranial findings
[2017-11-02] MEDS ORDERED: Amiodarone 150 MG IVPREMIX* 150 MG/100 ML BAG IV ONE (09:51)
--- NOTE | 2017-11-02 10:18 | RAD ---
Indication: Altered mental status. Unresponsive. Comparison: August 29, 2017 chest radiograph and May 10, [address] Technique: Upright AP 0935 hours Report: Suboptimal inspiration with mild crowding of the bronchovascular structures. No pulmonary infiltrate, focal pulmonary lesion, pleural effusion, pneumothorax. Upper normal heart size accounting for suboptimal inspiration. Unremarkable central pulmonary vasculature and mediastinal contours. IMPRESSION: No evidence for acute intrathoracic disease.
[2017-11-02] MEDS ORDERED: Magnesium Sulfate 1 GM IV* 1 GM/100 ML BAG IV ONE (10:21)
--- NOTE | 2017-11-02 10:46 | ED ---
Jordon Rosales Angela, scribed for Maycol Al MD on 11/02/17 at 0845 . Substance Abuse/Use - HPI Summary HPI Summary: This pt is a 52 y/o female presenting to [facility] via EMS for unresponsiveness. EMS reports the this morning could not wake the pt up. thought the pt was having a diabetic emergency. notes the pt was breathing but she was unresponsive. EMS states the pt's mentioned the pt may have overdose and taken 1 bottle of ibuprofen last night. Per EMS, FSBG was 96, 82, and 98. EMS states the pt has heavy snoring respiration and therefore a nasal trumpet was placed with some relief. EMS administered Narcan x2 without effect. Per EMS pt was last seen normal last night. ROS IS LIMITED DUE TO LEVEL 5 CAVEAT - pt is unresponsive. - History Of Current Complaint Stated Complaint: POSSIBLE OVERDOSE Hx Obtained From: Family/Guard Manager - , EMS Hx From Patient Unobtainable Due To: Other Hx Last Menstrual Period: "last month" Onset/Duration of Drug/ETOH Abuse: Hours Ingestion History: Type/Name Of Drug - maybe ibuprofen, Amount Ingested - approx 1 bottle Overdose Characteristics: Oral Timing Of Abuse: Binge Use Severity Currently: Severe Character: Lethargic Aggravating Factor(s): Other - unknown Alleviating Factor(s): Other - unknown Associated Signs And Symptoms: Other: - POS: unresponsive - Allergies/Home Medications Allergies/Adverse Reactions: Allergies Allergy/AdvReac Type Severity Reaction Status Date / Time ciprofloxacin Allergy Dizziness Verified 10/10/17 11:22 latex Allergy Rash Verified 10/10/17 11:22 lithium Allergy See Comment Verified 10/10/17 11:22 [email or web address] Allergy Unknown Verified 10/10/17 11:22 Reaction Details Penicillins Allergy Rash Verified 10/10/17 11:22 perphenazine Allergy Unknown Verified 10/10/17 11:22 Reaction Details Sulfa (Sulfonamide Allergy Hives Verified 10/10/17 11:22 Antibiotics) tramadol Allergy Altered Verified 10/10/17 11:22 Mental Status ENVIRONMENTAL Allergy Mild SINUS Uncoded 10/10/17 11:22 Home Medications: Home Medications Losartan TAB* [Cozaar TAB*] 25 mg PO DAILY 11/02/17 [History Confirmed 11/02/17] PMH/Surg Hx/FS Hx/Imm Hx Endocrine/Hematology History: Reports: Hx Diabetes, Hx Thyroid Disease, Other Endocrine/Hematological Disorders - Chronic pancreatitis Denies: Hx Anticoagulant Therapy Cardiovascular History: Reports: Hx Hypertension - NO MEDICATION FOR PER PATIENT , Other Cardiovascular Problems/Disorders - HX OF PSVT 04/2008 Denies: Hx Pacemaker/ICD Respiratory History: Reports: Hx Asthma, Hx Seasonal Allergies, Hx Sleep Apnea - HX OF IN THE PAST Denies: Hx Chronic Bronchitis, Hx Chronic Obstructive Pulmonary Disease (COPD ), Hx Cystic Fibrosis, Hx Lung Cancer, Hx Pleural Effusion, Hx Pneumonia, Hx Pulmonary Edema, Hx Pulmonary Embolism, Other Respiratory Problems/Disorders GI History: Reports: Hx Gall Bladder Disease, Hx Gastroesophageal Reflux Disease - ON MEDICATION FOR, Hx Gastrointestinal Bleed, Hx Irritable Bowel, Other GI Disorders - HX OF pancreatitis- STATES LAST ABOUT 2 WEEKS AGO- STATES SLIGHT CASE Denies: Hx Ulcer History: Denies: Hx Dialysis, Hx Renal Disease Musculoskeletal History: Reports: Hx Arthritis, Hx Back Problems, Other Musculoskeletal History - GEN MUSCULOSKELETAL PAIN Denies: Hx Rheumatoid Arthritis, Hx Bursitis, Hx Congenital Bone Abnormalities, Hx Fibromyalgia, Hx Gout, Hx Orthopedic Injury, Hx Osteoporosis, Hx Scoliosis, Hx Tendonitis Sensory History: Reports: Hx Contacts or Glasses, Hx Vision Problem Denies: Hx Cataracts, Hx Eye Injury, Hx Eye Prosthesis, Hx Glaucoma, Hx Macular Degeneration, Other Sensory Impairments Opthamlomology History: Reports: Hx Contacts or Glasses, Hx Vision Problem Denies: Hx Cataracts, Hx Eye Injury, Hx Eye Prosthesis, Hx Glaucoma, Hx Macular Degeneration, Other Sensory Impairments Neurological History: Reports: Hx Developmental Delay - intellectual disability , Hx Seizures - STATES WITH ALLERGIC REACTION TO TRAMADOL Denies: Hx Dementia, Hx Headaches, Other Neuro Impairments/Disorders Psychiatric History: Reports: Hx Anxiety - ON MEDICATION FOR, Hx Depression - ON MEDICATION FOR, Hx Post Traumatic Stress Disorder, Hx Inpatient Treatment, Hx Community Mental Health Tx, Hx Bipolar Disorder - pt manic, Hx Suicide Attempt - past med overdoses, Hx of Violent Episodes Against Others, Other Psychiatric Issues/Disorders - PSYCHOSIS NOS, HX OF PTSD, SCHIZOAFFECTIVE DISORDER, BORDERLINE PERSONALITY Denies: Hx Attention Deficit Hyperactivity Disorder, Hx Eating Disorder, Hx Panic Disorder, Hx Schizophrenia, Hx Substance Abuse - Surgical History Surgery Procedure, Year, and Place: 2011-CATARACT EXTRACTION. GALLBLADDER REMOVED Hx Anesthesia Reactions: No - Immunization History Date of Tetanus Vaccine: Unknown Date of Influenza Vaccine: 04/2017 Infectious Disease History: Denies: Hx Clostridium Difficile, Hx Hepatitis, Hx Human Immunodeficiency Virus (HIV), Hx of Known/Suspected MRSA, Hx Shingles, Hx Tuberculosis, Hx Known/ Suspected VRE, Hx Known/Suspected VRSA, History Other Infectious Disease - Family History Known Family History: Positive: Other - Anxiety and depression, [place] - father Negative: Cardiac Disease, Hypertension, Diabetes Family History: Depression and anxiety - Social History Alcohol Use: None Hx Substance Use: Yes Substance Use Type: Reports: None Hx Tobacco Use: Yes Smoking Status (MU): Current Some Day Smoker Type: Cigarettes Amount Used/How Often: Quit for 2 years, but started again in March. Length of Time of Smoking/Using Tobacco: 2 year ago Have You Smoked in the Last Year: Yes - Patient has smoked within the last 30 days Review of Systems - ROS Summary Review of Systems Summary: ROS IS LIMITED DUE TO LEVEL 5 CAVEAT - pt is unresponsive Negative: Fever Neurological: Other - POS: unresponsive All Other Systems Reviewed And Are Negative: No Physical Exam - Summary Physical Exam Summary: VITAL SIGNS: Reviewed. GENERAL: Patient is an obese female who is unresponsive.. Patient is not in any acute respiratory distress. HEAD AND FACE: No signs of trauma. No ecchymosis, hematomas or skull depressions. Pt has a trumpet in the left nostril. EYES: PERRL. EARS: Ear canals and tympanic membranes are within normal limits. MOUTH: Oropharynx within normal limits. Dry nasal and oral mucosa. NECK: Supple, trachea is midline, no adenopathy, no JVD, no carotid bruit, no c- spine tenderness, neck with full ROM. CHEST: Symmetric, no tenderness at palpation LUNGS: Clear to auscultation bilaterally. No wheezing or crackles. CVS: Tachycardic rate and regular rhythm, S1 and S2 present, no murmurs or gallops appreciated. ABDOMEN: Obese, soft, non-tender. No rebound no guarding, and no masses palpated. Decreased bowel sounds. EXTREMITIES: FROM in all major joints, no edema, no cyanosis or clubbing. There are good pulses. NEURO: Pt is unresponsive, however she is responsive to painful stimuli. Speech is normal and follows commands. SKIN: Dry and warm GCS: 9 Triage Information Reviewed: Yes Vital Signs On Initial Exam: Initial Vitals Temp Pulse Resp BP Pulse Ox 98.3 F 110 15 100/64 95 11/02/17 08:40 11/02/17 08:40 11/02/17 08:40 11/02/17 08:40 11/02/17 08:40 Vital Signs Reviewed: Yes Diagnostics - Vital Signs Vital Signs Temp Pulse Resp BP Pulse Ox 11/02/17 09:30 14 98/66 11/02/17 09:21 101 13 95 11/02/17 08:40 98.3 F 110 15 100/64 95 - Laboratory Lab Results: Lab Results 11/02/17 11/02/17 11/02/17 Range/Units 08:43 08:43 08:43 WBC 8.5 (3.5-10.8) 10^3/ul RBC 4.40 (4.0-5.4) 10^6/ul Hgb 11.8 L (12.0-16.0) g/dl Hct 37 (35-47) % MCV 84 (80-97) fL MCH 27 (27-31) pg MCHC 32 (31-36) g/dl RDW 18 H (10.5-15) % Plt Count 207 (150-450) 10^3/ul MPV 8.4 (7.4-10.4) um3 Neut % (Auto) 67.4 (38-83) % Lymph % (Auto) 25.6 (25-47) % [place]ink[place] % (Auto) 4.4 (0-7) % Eos % (Auto) 2.2 (0-6) % Baso % (Auto) 0.4 (0-2) % Absolute Neuts (auto) 5.7 (1.5-7.7) 10^3/ul Absolute Lymphs (auto) 2.2 (1.0-4.8) 10^3/ul Absolute Monos (auto) 0.4 (0-0.8) 10^3/ul Absolute Eos (auto) 0.2 (0-0.6) 10^3/ul Absolute Basos (auto) 0 (0-0.2) 10^3/ul Absolute Nucleated RBC 0 10^3/ul Nucleated RBC % 0 ABG pH (7.35-7.45) ABG pCO2 (35-45) mmHg ABG pO2 (80-100) mmHg ABG HCO3 (19-31) mmol/L ABG O2 Saturation (95-98) % ABG Base Excess (-2.0-2.0) Sodium 142 (139-145) mmol/L Potassium 4.4 (3.5-5.0) mmol/L Chloride 107 (101-111) mmol/L Carbon Dioxide 30 (22-32) mmol/L Anion Gap 5 (2-11) mmol/L BUN 18 (6-24) mg/dL Creatinine 0.85 (0.51-0.95) mg/dL Est GFR ( Amer) 90.7 (>60) Est GFR (Non-Af Amer) 70.5 (>60) BUN/Creatinine Ratio 21.2 H (8-20) Glucose 92 (70-100) mg/dL Lactic Acid (0.5-2.0) mmol/L Calcium 9.2 (8.6-10.3) mg/dL Magnesium 1.9 (1.9-2.7) mg/dL Total Bilirubin 0.10 L (0.2-1.0) mg/dL AST 26 (13-39) U/L ALT 25 (7-52) U/L Alkaline Phosphatase 135 H (34-104) U/L Ammonia 37 (16-53) mol/L Total Creatine Kinase 72 (10-223) U/L Troponin I 0.03 (<0.04) ng/mL Total Protein 6.8 (6.4-8.9) g/dL Albumin 3.7 (3.2-5.2) g/dL Globulin 3.1 (2-4) g/dL Albumin/Globulin Ratio 1.2 (1-3) TSH 1.79 (0.34-5.60) mcIU/mL Urine Color Urine Appearance Urine pH (5-9) Ur Specific [place] (1.010-1.030) Urine Protein (Negative) Urine Ketones (Negative) Urine Blood (Negative) Urine Nitrate (Negative) Urine Bilirubin (Negative) Urine Urobilinogen (Negative) Ur Leukocyte Esterase (Negative) Urine Glucose (Negative) Salicylates < 2.50 (<30) mg/dL Urine Opiates Screen (None Detect) Acetaminophen < 15 mcg/mL Ur Barbiturates Screen (None Detect) Ur Phencyclidine Scrn (None Detect) Ur Amphetamines Screen (None Detect) U Benzodiazepines Scrn (None Detect) Urine Cocaine Screen (None Detect) U Cannabinoids Screen (None Detect) Serum Alcohol < 10 (<10) mg/dL 11/02/17 11/02/17 11/02/17 Range/Units 08:43 08:56 09:13 WBC (3.5-10.8) 10^3/ul RBC (4.0-5.4) 10^6/ul Hgb (12.0-16.0) g/dl Hct (35-47) % MCV (80-97) fL MCH (27-31) pg MCHC (31-36) g/dl RDW (10.5-15) % Plt Count (150-450) 10^3/ul MPV (7.4-10.4) um3 Neut % (Auto) (38-83) % Lymph % (Auto) (25-47) % Winkler % (Auto) (0-7) % Eos % (Auto) (0-6) % Baso % (Auto) (0-2) % Absolute Neuts (auto) (1.5-7.7) 10^3/ul Absolute Lymphs (auto) (1.0-4.8) 10^3/ul Absolute Monos (auto) (0-0.8) 10^3/ul Absolute Eos (auto) (0-0.6) 10^3/ul Absolute Basos (auto) (0-0.2) 10^3/ul Absolute Nucleated RBC 10^3/ul Nucleated RBC % ABG pH 7.36 (7.35-7.45) ABG pCO2 50 H (35-45) mmHg ABG pO2 65 L (80-100) mmHg ABG HCO3 26.4 (19-31) mmol/L ABG O2 Saturation 91.1 L (95-98) % ABG Base Excess 2.1 H (-2.0-2.0) Sodium (139-145) mmol/L Potassium (3.5-5.0) mmol/L Chloride (101-111) mmol/L Carbon Dioxide (22-32) mmol/L Anion Gap (2-11) mmol/L BUN (6-24) mg/dL Creatinine (0.51-0.95) mg/dL Est GFR ( Amer) (>60) Est GFR (Non-Af Amer) (>60) BUN/Creatinine Ratio (8-20) Glucose (70-100) mg/dL Lactic Acid 1.0 (0.5-2.0) mmol/L Calcium (8.6-10.3) mg/dL Magnesium (1.9-2.7) mg/dL Total Bilirubin (0.2-1.0) mg/dL AST (13-39) U/L ALT (7-52) U/L Alkaline Phosphatase (34-104) U/L Ammonia (16-53) mol/L Total Creatine Kinase (10-223) U/L Troponin I (<0.04) ng/mL Total Protein (6.4-8.9) g/dL Albumin (3.2-5.2) g/dL Globulin (2-4) g/dL Albumin/Globulin Ratio (1-3) TSH (0.34-5.60) mcIU/mL Urine Color Urine Appearance Urine pH (5-9) Ur Specific [place] (1.010-1.030) Urine Protein (Negative) Urine Ketones (Negative) Urine Blood (Negative) Urine Nitrate (Negative) Urine Bilirubin (Negative) Urine Urobilinogen (Negative) Ur Leukocyte Esterase (Negative) Urine Glucose (Negative) Salicylates (<30) mg/dL Urine Opiates Screen Presumptive positive A (None Detect) Acetaminophen mcg/mL Ur Barbiturates Screen None detected (None Detect) Ur Phencyclidine Scrn None detected (None Detect) Ur Amphetamines Screen None detected (None Detect) U Benzodiazepines Scrn None detected (None Detect) Urine Cocaine Screen None detected (None Detect) U Cannabinoids Screen None detected (None Detect) Serum Alcohol (<10) mg/dL 11/02/17 Range/Units 09:13 WBC (3.5-10.8) 10^3/ul RBC (4.0-5.4) 10^6/ul Hgb (12.0-16.0) g/dl Hct (35-47) % MCV (80-97) fL MCH (27-31) pg MCHC (31-36) g/dl RDW (10.5-15) % Plt Count (150-450) 10^3/ul MPV (7.4-10.4) um3 Neut % (Auto) (38-83) % Lymph % (Auto) (25-47) % Winkler % (Auto) (0-7) % Eos % (Auto) (0-6) % Baso % (Auto) (0-2) % Absolute Neuts (auto) (1.5-7.7) 10^3/ul Absolute Lymphs (auto) (1.0-4.8) 10^3/ul Absolute Monos (auto) (0-0.8) 10^3/ul Absolute Eos (auto) (0-0.6) 10^3/ul Absolute Basos (auto) (0-0.2) 10^3/ul Absolute Nucleated RBC 10^3/ul Nucleated RBC % ABG pH (7.35-7.45) ABG pCO2 (35-45) mmHg ABG pO2 (80-100) mmHg ABG HCO3 (19-31) mmol/L ABG O2 Saturation (95-98) % ABG Base Excess (-2.0-2.0) Sodium (139-145) mmol/L Potassium (3.5-5.0) mmol/L Chloride (101-111) mmol/L Carbon Dioxide (22-32) mmol/L Anion Gap (2-11) mmol/L BUN (6-24) mg/dL Creatinine (0.51-0.95) mg/dL Est GFR ( Amer) (>60) Est GFR (Non-Af Amer) (>60) BUN/Creatinine Ratio (8-20) Glucose (70-100) mg/dL Lactic Acid (0.5-2.0) mmol/L Calcium (8.6-10.3) mg/dL Magnesium (1.9-2.7) mg/dL Total Bilirubin (0.2-1.0) mg/dL AST (13-39) U/L ALT (7-52) U/L Alkaline Phosphatase (34-104) U/L Ammonia (16-53) mol/L Total Creatine Kinase (10-223) U/L Troponin I (<0.04) ng/mL Total Protein (6.4-8.9) g/dL Albumin (3.2-5.2) g/dL Globulin (2-4) g/dL Albumin/Globulin Ratio (1-3) TSH (0.34-5.60) mcIU/mL Urine Color Yellow Urine Appearance Clear Urine pH 5.0 (5-9) Ur Specific [place] 1.018 (1.010-1.030) Urine Protein Negative (Negative) Urine Ketones Negative (Negative) Urine Blood Negative (Negative) Urine Nitrate Negative (Negative) Urine Bilirubin Negative (Negative) Urine Urobilinogen Negative (Negative) Ur Leukocyte Esterase Negative (Negative) Urine Glucose 1+(50 mg/dl) A (Negative) Salicylates (<30) mg/dL Urine Opiates Screen (None Detect) Acetaminophen mcg/mL Ur Barbiturates Screen (None Detect) Ur Phencyclidine Scrn (None Detect) Ur Amphetamines Screen (None Detect) U Benzodiazepines Scrn (None Detect) Urine Cocaine Screen (None Detect) U Cannabinoids Screen (None Detect) Serum Alcohol (<10) mg/dL Result Diagrams: 11/02/17 08:43 11/02/17 08:43 Lab Statement: Any lab studies that have been ordered have been reviewed, and results considered in the medical decision making process. - Radiology Chest XR Xray Interpretation: No Acute Changes - IMPRESSION: No evidence for acute intrathoracic disease. Dr. Al has reviewed this radiology report. Radiology Interpretation Completed By: Radiologist - CT Brain CT CT Interpretation: No Acute Changes - IMPRESSION: No acute intracranial findings. Dr. Al has reviewed this radiology report. CT Interpretation Completed By: Radiologist - EKG 08:48 Cardiac Rate: NL EKG Rhythm: Sinus Rhythm - at 110 bpm EKG Interpretation: No ST elevations. Normal axis. Re-Evaluation - Re-Evaluation First Eval Re-Evaluation Time: 09:53 Comment: Pt had one episode of V-tach for approximately 7 seconds. Course/Dx - Course Assessment/Plan: This pt is a 52 y/o female presenting to [facility] via EMS for unresponsiveness. EMS reports the this morning could not wake the pt up. thought the pt was having a diabetic emergency. notes the pt was breathing but she was unresponsive. EMS states the pt's mentioned the pt may have overdose and taken 1 bottle of ibuprofen last night. Per EMS, FSBG was 96, 82, and 98. EMS states the pt has heavy snoring respiration and therefore a nasal trumpet was placed with some relief. EMS administered Narcan x2 without effect. Per EMS pt was last seen normal last night. ROS IS LIMITED DUE TO LEVEL 5 CAVEAT - pt is unresponsive. Test results without any significant abnormalities except for hemoglobin of 11.8, alkaline phosphatase is 135. Urinalysis is negative for UTI. Urine toxicology is positive for opiates. ABG shows pH of 7.36, pCO2 of 50, pO2 of 65, and O2 saturation of 91.1. Brain CT: No acute intracranial findings. Chest XR: No evidence for acute intrathoracic disease. In the ED course the pt was placed on a monitoring and evaluation advisor, 2 IV access were obtained, and pt was given IV fluids since she is on the low side of blood pressure. She was given Narcan by EMS with no effect. Fingerstick blood glucose was 98. We placed a gray catheter and I discussed the case with Dr. Anand, oreman, who accepted the pt for admission to the ICU services. I did not intubate the pt because is she is maintaining her airway. Pt has a nasal trumpet in placed. She developed 2 episodes of V-tach, self resolving. She was given Amiodarone and magnesium and she is stable. Dr. Anand agrees not to intubate the pt at this time since she is maintaining her airway. - Diagnoses Provider Diagnoses: Unresponsive, Hypoxia, Opiate abuse, episodic - Physician Notifications Discussed Care Of Patient With: Ishmael Anand Time Discussed With Above Provider: 09:55 Instructed by Provider To: Other - I discussed pt care with Dr. Anand, oreman, who has agreed to admit the pt. - Critical Care Time Critical Care Time: 75-104 min Discharge - Sign-Out/Discharge Documenting (check all that apply): [place] [facility] [place]charge Plan Condition: Stable Disposition: ADMITTED TO [facility] - Billing Disposition and Condition Condition: STABLE Disposition[place] [facility] The documentation as recorded by the Jordon roth Angela accurately reflects the service I personally performed and the decisions made by , Maycol Al MD.
--- NOTE | 2017-11-02 12:36 | HP ---
H&P (Free Text) History and Physical: CRITICAL CARE MEDICINE DATE: 11/02/17 TIME: 1030 PRIMARY CARE PROVIDER: NONE REFERRING PROVIDER: NIEVES REASON/CHIEF COMPLAINT: "unresponsive" HISTORY OF PRESENT ILLNESS: 52 yo F known to ED for multiple admission with medication overdose and to psych unit as well. H/o learning disability, borderline personality disorder presenting from home with "unresponsiveness". She does respond in ED to painful stimuli not to verbal. she had received 2mg narcan en route with no affect. sonorous resp but slow normal pattern and maintianing airway. ct head without acute abn. had nonsustained VT event in ED and received amio and mag. family is besides themselves not knowing what she could have taken. they are concerned about asa. , pts , "she's been sneaking out on us, I don' t know what she could have taken; I'm so distraught" REVIEW OF SYSTEMS: As per HPI. PAST MEDICAL HISTORY: As per HPI. IBD, gerd, DM, chronic pancreatitis MEDICATIONS: Reviewed but reliability and adherence questionable ALLERGIES: Reviewed. multiple SOCIAL HISTORY: Reviewed. FAMILY HISTORY: Noncontributory at present. PHYSICAL EXAM: Vital Signs: Reviewed. Hr 8os. bp stable. rr teens. Neurologic: awakens to painful stimuli and moves extremities towards localization but slowly. starting to arouse more at time of note. HEENT: pupils eq, 3mm and react to 2mm with light. response to threat present. resists. Cardiovascular: distant, reg, no m Respiratory: clear bl; smooth phases Abdomen: obese, nt Extremities: warm Access: piv LABS: Reviewed. basically benign IMAGING: Reviewed. no acute injury current, but tachy and mild prolonged QTc MEDICATIONS: Reviewed. ASSESSMENT/PLAN: 52 F with significant h/o of substance failures and psychiatric disturbance with Toxic encephalopathy, coma on presentation to ED, sec to overdose on unknown substance/polysubstance at this time that may not reveal on tox (only opitates positive at present which are not previously on med list) Certainly not appearing as acetaminophen nor salicylate overdose, and these labs are neg. Mildly prolonged QT and nonsustained vt. whether this is just repol abn post substance toxicity or more dealing with her ssri perhaps. -close observation. consider bicarb. received amio and can hold off on further. keep Mag on higher side. tele. check ecg with improvement with time and lower hr. Certainly some chronic CO2 retention with compensation, rajesh component likely, otherwise benign just needs time and mild hydration to allow equilibration and ultimate psych eval. ICU obs today Supportive and preventative care as ordered. SUP: po later VTE prophylaxis: heparin Disposition: ICU Code Status: Full Critical Care Time: 45min Adela Anand DO
[2017-11-02] MEDS: NS 0.9% 1000 ML* 1,000 ML IV SCH ×2 (13:42→18:12)
[2017-11-02] MEDS ORDERED: Albuterol 2.5 MG/3 ML NEB.SOL* (0.083%) INH PRN (14:11)
[2017-11-02] MEDS ORDERED: Dextrose 50% Syringe 50 ML* 25 GM/50 ML SYRINGE ONE (18:07)
[2017-11-02] MEDS: Insulin REGULAR(*) 1 UNITS UNIT SUBCUT SCH ×2 (18:09→21:22)
[2017-11-03 06:02] LABS: EGFR Non-African American 82.7 (>60)
[2017-11-03] MEDS: NS 0.9% 1000 ML* 1,000 ML IV SCH (06:17)
[2017-11-03] MEDS: Insulin REGULAR(*) 1 UNITS UNIT SUBCUT SCH ×4 (07:46→20:48)
[2017-11-03] MEDS ORDERED: traZODone TAB* 100 MG PO PRN (10:53)
[2017-11-03] MEDS ORDERED: Acetaminop/Codeine 30 MG TAB* 1 TAB (300 MG/30 MG) PO PRN (10:53)
[2017-11-03] MEDS ORDERED: Albuterol HFA INHALER* 8 gm MDI INH PRN (10:53)
[2017-11-03] MEDS ORDERED: Acetaminophen TAB* 325 MG PO PRN (10:53)
[2017-11-03] MEDS: Ondansetron INJ* 2 MG/ML VIAL IV PRN ×2 (11:33→17:28)
[2017-11-03] MEDS: Docusate CAP* 100 MG PO PRN ×2 (11:33→20:47)
--- NOTE | 2017-11-03 11:57 | PN ---
Progress Note - Progress Note Date of Service: 11/03/17 Note: CRITICAL CARE MEDICINE DATE: 11/03/17 TIME: 1100 SUBJECTIVE: Patient seen and examined. awake, communicating. depressive signs. states she gets depressed with pain; remembers taking more ibuprofen then she should have. Already admitted to nursing last pm she desired to harm self with this. PHYSICAL EXAM: Vital Signs: Reviewed. Hr 80s. bp stable. rr teens. Neurologic: nonfocal. cook HEENT: pupils eq, mmm Cardiovascular: distant, reg, no m Respiratory: clear bl Abdomen: obese, nt Extremities: warm Access: piv LABS: Reviewed. IMAGING: Reviewed. MEDICATIONS: Reviewed. ASSESSMENT/PLAN: 52 F with significant h/o of substance failures and psychiatric disturbance with Toxic encephalopathy, coma on presentation to ED cleared with support. Salicylates in particular were negative and +opiates. Still with unclear ingestion, but seemed to have intent to harm. Had NSVT events a few times while coma like but seemingly resolved now. lytes ok. po. add back home meds to ensure stability. Would prefer to have her on the floor for another day to ensure tele ok and no hidden rebound of drug intoxication, and then otherwise would become medically stable for [facility] tomorrow. d/w pscyh Repeat ECG to ensure QTc stability. po. oob. mayo gray. floor. Supportive and preventative care as ordered. Code Status: Full Critical Care Time: 25min Adela Anand DO
[2017-11-03] MEDS ORDERED: Insulin GLARGINE(*) 1 UNITS UNIT SUBCUT ONE (12:02)
--- NOTE | 2017-11-03 13:29 | CONSULT ---
Consult Consult: The patient was seen by the Psychiatry consult service and her case was discussed with Dr. Anand. Taryn is well known to myself and to the [facility] staff. She has a history of very primitive borderline personality pathology with multiple suicidal and parasuicidal gestures in the past leading to several psychiatric hospitalizations at this, and other facilities. We will accept her as a transfer to the [facility] pending medical clearance. Full dictated consult is to follow, pending receipt of further collateral information from family and treatment providers at [facility]. Psychiatry will follow up tomorrow (11/04).
[2017-11-03] MEDS ORDERED: Lurasidone(*) 80 MG TAB PO SCH (18:00)
[2017-11-03] MEDS: lamoTRIgine TAB(*) 100 MG PO SCH (20:42)
[2017-11-03] MEDS: Gabapentin CAP(*) 300 MG PO SCH (20:45)
[2017-11-03] MEDS: Insulin GLARGINE(*) 1 UNITS UNIT SUBCUT SCH (20:47)
[2017-11-03] MEDS: Sitagliptin/Metform 50/500(NF) 1 TAB TAB PO SCH (20:51)
[2017-11-03] MEDS ORDERED: Gabapentin CAP(*) 300 MG PO SCH (21:00)
[2017-11-03] MEDS ORDERED: Atorvastatin* 40 MG TAB PO SCH (21:00)
[2017-11-03] MEDS ORDERED: Omeprazole CAP* 20 MG PO SCH (21:00)
[2017-11-04] MEDS ORDERED: Levothyroxine TAB* 50 MCG TAB PO SCH (06:00)
[2017-11-04] MEDS ORDERED: Levothyroxine TAB* 100 MCG TAB PO SCH (06:00)
[2017-11-04 07:04] LABS: Hematocrit 36 % (35-47); Hemoglobin 11.8 g/dl (12.0-16.0); Mean Corpuscular HGB Conc 33 g/dl (31-36); Mean Corpuscular Hemoglobin 27 pg (27-31); Mean Corpuscular Volume 84 fL (80-97); Mean Platelet Volume 8.8 um3 (7.4-10.4); Platelet Count 204 10^3/ul (150-450); Red Blood Count 4.31 10^6/ul (4.0-5.4); Red Cell Distribution Width 18 % (10.5-15); White Blood Count 8.7 10^3/ul (3.5-10.8)
[2017-11-04 07:23] LABS: EGFR Non-African American 55.9 (>60)
[2017-11-04] MEDS: Insulin GLARGINE(*) 1 UNITS UNIT SUBCUT SCH (08:42)
[2017-11-04] MEDS: Insulin REGULAR(*) 1 UNITS UNIT SUBCUT SCH ×2 (08:42→11:50)
[2017-11-04] MEDS: Gabapentin CAP(*) 300 MG PO SCH (08:45)
[2017-11-04] MEDS: lamoTRIgine TAB(*) 100 MG PO SCH (08:48)
[2017-11-04] MEDS: Sitagliptin/Metform 50/500(NF) 1 TAB TAB PO SCH (08:49)
[2017-11-04] MEDS: Docusate CAP* 100 MG PO PRN (08:54)
[2017-11-04] MEDS ORDERED: Losartan TAB* 25 MG PO SCH (09:00)
[2017-11-04] MEDS ORDERED: Sertraline* 100 MG TAB PO SCH (09:00)
[2017-11-04] MEDS ORDERED: OLANzapine TAB* 5 MG PO SCH (09:00)
[2017-11-04] MEDS ORDERED: Nicotine Inhaler* 10 MG AMP INH PRN (11:41)
[2017-11-04] MEDS ORDERED: Mouth Piece, Nicotine* 1 EACH CARTRIDGE INH PRN ×2 (11:41)
[2017-11-04 13:49] VITALS: BP 145/84
--- NOTE | 2017-11-04 22:35 | DS ---
CC: Dr. Sullivan; Dr. Cunningham DISCHARGE SUMMARY: DATE OF ADMISSION: 11/02/17 DATE OF TRANSFER: To our inpatient psychiatric unit, 11/04/17. PRIMARY CARE PROVIDER: Dr. Sullivan. DISCHARGE DIAGNOSIS: Suspected intentional overdose of unknown substance in patient who was found unresponsive and responded somewhat to Narcan. The patient had transient QT prolongation and ventricular tachycardia noted while in the intensive care unit that resolved by the time of discharge. SECONDARY DIAGNOSES: 1. Borderline personality disorder. 2. Chronic suicidal behavior. 3. Intellectual deficit. 4. History of self harm. 5. Posttraumatic stress disorder. 6. Dissociative disorder. 7. History of concern of malingering and factitious symptoms. 8. History of multiple overdoses in the past. 9. Obesity. 10. Diabetes, insulin-dependent. 11. Hypothyroidism. 12. Chronic back pain. 13. Gastroesophageal reflux disease. 14. Dyslipidemia. 15. Cholecystectomy. MEDICATIONS AT DISCHARGE: Include: 1. Acetaminophen on a p.r.n. basis. 2. Albuterol inhaler 1 puff every 6 hours p.r.n. 3. Lipitor 40 mg daily. 4. Neurontin 1200 mg at bedtime and 600 mg b.i.d. 5. Insulin NovoLog 15 units with every meal 3 times a day. 6. Insulin Lantus 70 units b.i.d. 7. Lamictal 150 mg b.i.d. 8. Synthroid 250 mcg daily. 9. Losartan 25 mg daily. 10. Latuda 80 mg daily. 11. Zyprexa 7.5 mg daily. 12. Protonix 40 mg daily. 13. Zoloft 200 mg daily. 14. Sitagliptin and metformin 50/500 one tablet b.i.d. 15. Trazodone 400 mg at bedtime. LABORATORY DATA AND STUDIES PERFORMED DURING THE HOSPITAL STAY: Included: On 11/04/17, white blood cell count of 8.7, hemoglobin 11.8, hematocrit of 36, and platelets of 204. Sodium was 136, potassium 4.6, chloride 101, carbon dioxide 28, BUN 18, creatinine 1.04. The patient's liver function test obtained at admission showed slight elevation of alkaline phosphatase, which is chronic. Urine drug screen was positive for opiates. Negative for salicylates, acetaminophen or alcohol. CONSULTATIONS DURING THE HOSPITAL STAY: Included Dr. Cunningham from Psychiatry, Dr. Anand from ICU. HOSPITALIZATION COURSE: Taryn Schulz is a 52-year-old female with history of borderline personality behavior, multiple suicidal attempts in the past, who was found unresponsive at home. She was treated with Narcan and responded somewhat. She needed to have a nasal trumpet placed and was observed in the ICU under the care of Dr. Anand. There she noted to have runs of ventricular tachycardia and QT prolongation. The patient herself could not determine exactly what she took, but she knew that she thought that was taking Tylenol for back pain. It was suspected that she took narcotics for overdose. Dr. Cunningham saw the patient in consultation and recommended inpatient psychiatric hospitalization after she is cleared medically. The patient was observed for another 24 hours on the hospital monitor floor and no further arrhythmias were noted. She is going to be discharged and transferred to our mental health unit for further evaluation and treatment. PHYSICAL EXAMINATION AT THE TIME OF DISCHARGE: Blood pressure 149/75, heart rate of 62 and regular, respiratory rate 16, oxygen saturation 96% on room air, temperature 98.0. General: The patient is a very pleasant 52-year-old female, who is in no acute distress. Alert, awake, and oriented x3, rather poor historian. HEENT: Head, atraumatic, normocephalic. Eyes: Pupils are equal, reactive to light and accommodation. Oropharynx clear. Mucosa moist. Neck: Supple. No JVD. No bruit bilaterally. Cardiovascular: Regular rate and rhythm. No murmur. Respiratory: Clear to auscultation bilaterally. Abdomen: Soft, nontender. Bowel sounds present in all 4 quadrants. Extremities: There is no edema. Pulses +2 bilaterally. No clubbing or cyanosis. Neuro Evaluation : Speech clear. Cranial nerves II through XII grossly intact. Motor strength is 5/5 bilaterally. Please note that this is a short summary of the patient's hospitalization. Please refer to further medical records for details. TIME SPENT: Approximately 40 minutes were spent on the patient's discharge. [id number]/[facility] #: [id number] [facility]
== END 2017-11-04 15:25 | DRG 917 ==
LOC: ED 08:36 → ICU 09:43 → MEDTELE 11-03 10:38
PROVIDERS: ADMIT Internal Medicine Critical Care Medicine; ATTEND Internal Medicine
DX: T40.602A Poisoning by unspecified narcotics, intentional self-harm, initial encounter (principal); G92 Toxic encephalopathy; R40.20 Unspecified coma; I47.2 Ventricular tachycardia; Y92.009 Unspecified place in unspecified non-institutional (private) residence as the place of occurrence of the external cause; I45.81 Long QT syndrome; F60.3 Borderline personality disorder; F43.10 Post-traumatic stress disorder, unspecified; F44.9 Dissociative and conversion disorder, unspecified; E66.9 Obesity, unspecified; E11.9 Type 2 diabetes mellitus without complications; E03.9 Hypothyroidism, unspecified; M54.9 Dorsalgia, unspecified; K21.9 Gastro-esophageal reflux disease without esophagitis; E78.5 Hyperlipidemia, unspecified; R94.5 Abnormal results of liver function studies; F81.9 Developmental disorder of scholastic skills, unspecified; F79 Unspecified intellectual disabilities; Z68.37 Body mass index [BMI] 37.0-37.9, adult; Z79.4 Long term (current) use of insulin
CPT/HCPCS: 36415; 36600; 70450; 71045; 80048; 80053; 80307; 80320; 80329; 81003; 82140; 82550; 82803; 83605; 83735; 84443; 84484; 85025; 85027; 87040; 87641; 93005; 99285; A9270-GY; G0480; J0282; J2405; J3475

== ENCOUNTER 2017-11-04 15:32 | Inpatient (IN) | payer MEDICARE, MEDICAID ==
[2017-11-04] MEDS ORDERED: Al Hydrox/Mg Hydrox/Simet LIQ* 30 ML UDC PO PRN (16:21)
[2017-11-04] MEDS ORDERED: Albuterol HFA INHALER* 8 gm MDI INH PRN (16:26)
[2017-11-04] MEDS: Insulin LISPRO* 1 UNITS UNIT SUBCUT SCH (17:33)
[2017-11-04] MEDS: Insulin GLARGINE(*) 1 UNITS UNIT SUBCUT SCH (17:33)
[2017-11-04] MEDS ORDERED: Mouth Piece, Nicotine* 1 EACH CARTRIDGE ONE (21:37)
[2017-11-04] MEDS: Nicotine Inhaler* 10 MG AMP INH PRN (21:38)
[2017-11-04] MEDS: Acetaminophen TAB* 325 MG PO PRN (21:39)
[2017-11-04] MEDS: traZODone TAB* 100 MG PO SCH (21:40)
[2017-11-04] MEDS: lamoTRIgine TAB(*) 100 MG PO SCH (21:41)
[2017-11-04] MEDS: Lurasidone(*) 80 MG TAB PO SCH (21:42)
[2017-11-04] MEDS: Atorvastatin* 40 MG TAB PO SCH (21:43)
[2017-11-04] MEDS: Gabapentin CAP(*) 300 MG PO SCH ×2 (21:45)
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
[2017-11-05] MEDS: Levothyroxine TAB* 100 MCG TAB PO SCH (06:25)
[2017-11-05] MEDS: Levothyroxine TAB* 50 MCG TAB PO SCH (06:25)
[2017-11-05] MEDS: Acetaminophen TAB* 325 MG PO PRN (06:25)
[2017-11-05] MEDS: Nicotine Inhaler* 10 MG AMP INH PRN ×2 (06:25→11:59)
[2017-11-05] MEDS: Insulin LISPRO* 1 UNITS UNIT SUBCUT SCH ×3 (08:49→16:52)
[2017-11-05] MEDS: Insulin GLARGINE(*) 1 UNITS UNIT SUBCUT SCH ×2 (09:17→16:53)
[2017-11-05] MEDS: Sitagliptin/Metform 50/500(NF) 1 TAB TAB PO SCH ×2 (09:20→16:45)
[2017-11-05] MEDS: Sertraline* 100 MG TAB PO SCH (09:21)
[2017-11-05] MEDS: Vitamin THERAPEUTIC TAB PO SCH (09:21)
[2017-11-05] MEDS: Omeprazole CAP* 20 MG PO SCH (09:21)
[2017-11-05] MEDS: Losartan TAB* 25 MG PO SCH (09:21)
[2017-11-05] MEDS: Gabapentin CAP(*) 300 MG PO SCH ×3 (09:21→21:23)
[2017-11-05] MEDS: lamoTRIgine TAB(*) 100 MG PO SCH ×2 (09:22→21:19)
[2017-11-05] MEDS: OLANzapine TAB* 5 MG PO SCH (09:22)
--- NOTE | 2017-11-05 16:47 | PN ---
Subjective - Subjective Subjective: Taryn offers multiple somatic complaints (back, urethral pain), she endorses euthymic mood, denies SI or urges for sib and she contracts for safety. She describes a stressful visit with her , feels that he was distracted. She denies side effects from her prescribed meds. Per staff, she is adherent to unit 's routines. Objective - Appearance Appearance: Obese Dysmorphic Features: No Hygiene: Normal Grooming: Well Kept - Behavior Psychomotor Activities: Normal Exhibits Abnormal Movement: No - Attitude and Relatedness Attitude and Relatedness: Needy Eye Contact: Fair - Speech Quality: Unpressured Latencies: Normal Quantity: Copious - Mood Patient's Decription of Mood: "Okay" - Affect Observed Affect: Non-labile Affect Consistent with: Euthymia - Thought Process Patient's Thought Process: Coherent, Over Inclusive Thought Content: No Passive Wish, No Suicidal Planning, No Homicidal Ideation, No Paranoid Ideation - Sensorium Experiencing Hallucinations: No, Sensorium is Clear - Level of Consciousness Level of Consciousness: Alert Orientation: Yes Intact - Impulse Control Impulse Control: Intact - Insight and Judgement Insight and Judgement: Poor - Group Participation Particating in Group Activities: No - Medication Management Medication Management Adherence: Yes Assessment - Assessment Merits Inpatient Hospitalization: For Ongoing Evaluation, Consolidate Improvements, For Discharge Planning Inpatient DSM-V Dx: F43.10 Clinical Impression: safe of checks, adherent to unit's routines, denying suicidality, tolerating continuation of her outpatient regimen of medication. Has not benefited from prolonged admission in the past. Plan - Plan Treatment Plan: Name: TARYN ALFARO Birthdate: 1965 [id number] Continued Medication Management: Continue Outpt Medication Medications: Current Medications Acetaminophen (Tylenol Tab*) 650 mg PO Q4H PRN PRN Reason: for pain; or Temp >101 F Last Admin: 11/05/17 06:25 Dose: 650 mg Al Hydrox/Mg Hydrox/Simethicone (Maalox Plus*) 30 ml PO Q4H PRN PRN Reason: INDIGESTION Albuterol (Ventolin Hfa Inhaler*) 1 puff INH Q6H PRN PRN Reason: wheeze Atorvastatin Calcium (Lipitor*) 40 mg PO 2100 JULIO Last Admin: 11/04/17 21:43 Dose: 40 mg Gabapentin (Neurontin Cap(*)) 600 mg PO BID [facility] Last Admin: 11/05/17 09:21 Dose: 600 mg Gabapentin (Neurontin Cap(*)) 1,200 mg PO BEDTIME [facility] Last Admin: 11/04/17 21:45 Dose: 1,200 mg Insulin Glargine (Lantus(*)) 70 units SUBCUT Q12H [facility] Last Admin: 11/05/17 09:17 Dose: 70 units Insulin Human Lispro (Humalog*) 15 units SUBCUT TID WITH MEALS [facility] Last Admin: 11/05/17 11:55 Dose: 15 units Lamotrigine (Lamictal Tab(*)) 150 mg PO BID [facility] Last Admin: 11/05/17 09:22 Dose: 150 mg Levothyroxine Sodium (Synthroid Tab*) 200 mcg PO DAILY@0600 [facility] Last Admin: 11/05/17 06:25 Dose: 200 mcg Levothyroxine Sodium (Synthroid Tab*) 50 mcg PO DAILY@0600 [facility] Last Admin: 11/05/17 06:25 Dose: 50 mcg Losartan Potassium (Cozaar Tab*) 25 mg PO DAILY [facility] Last Admin: 11/05/17 09:21 Dose: 25 mg Lurasidone HCl (Latuda) 80 mg PO QPM [facility] Last Admin: 11/04/17 21:42 Dose: 80 mg Metformin HCl (Glucophage*) 500 mg PO BID [facility] Multivitamins (Theragran Tab*) 1 tab PO DAILY [facility] Last Admin: 11/05/17 09:21 Dose: 1 tab Nicotine (Nicotine Inhaler*) 10 mg INH Q2H PRN PRN Reason: CRAVING Last Admin: 11/05/17 11:59 Dose: 10 mg Nicotine Polacrilex (Nicotine Gum*) 2 mg PO Q2H PRN PRN Reason: CRAVING Olanzapine (Zyprexa Tab*) 7.5 mg PO DAILY [facility] Last Admin: 11/05/17 09:22 Dose: 7.5 mg Omeprazole (Prilosec Cap*) 20 mg PO DAILY@0730 [facility] Last Admin: 11/05/17 09:21 Dose: 20 mg Sertraline HCl (Zoloft*) 200 mg PO QAM [facility] Last Admin: 11/05/17 09:21 Dose: 200 mg Sitagliptin Phosphate (Januvia (Nf)) 50 mg PO BID JULIO Trazodone HCl (Desyrel Tab*) 400 mg PO BEDTIME JULIO Last Admin: 11/04/17 21:40 Dose: 400 mg - Discharge Plan Discharge Plan: Outpatient Follow Up Outpatient Program: [facility]
[2017-11-05] MEDS: traZODone TAB* 100 MG PO SCH (21:18)
[2017-11-05] MEDS: metFORMIN* 500 MG TAB PO SCH (21:18)
[2017-11-05] MEDS: CMC: SitaGLIPtin (NF) 25 MG TAB PO SCH (21:19)
[2017-11-05] MEDS: Atorvastatin* 40 MG TAB PO SCH (21:19)
[2017-11-05] MEDS: Lurasidone(*) 80 MG TAB PO SCH (21:19)
[2017-11-06] MEDS: Insulin GLARGINE(*) 1 UNITS UNIT SUBCUT SCH ×2 (07:58→16:55)
[2017-11-06] MEDS: Insulin LISPRO* 1 UNITS UNIT SUBCUT SCH ×3 (08:00→16:54)
[2017-11-06] MEDS: Levothyroxine TAB* 50 MCG TAB PO SCH (08:13)
[2017-11-06] MEDS: Levothyroxine TAB* 100 MCG TAB PO SCH (08:13)
[2017-11-06] MEDS: Omeprazole CAP* 20 MG PO SCH (08:14)
[2017-11-06] MEDS: CMC: SitaGLIPtin (NF) 25 MG TAB PO SCH ×2 (09:12→20:37)
[2017-11-06] MEDS: Sertraline* 100 MG TAB PO SCH (09:12)
[2017-11-06] MEDS: Losartan TAB* 25 MG PO SCH (09:13)
[2017-11-06] MEDS: Gabapentin CAP(*) 300 MG PO SCH ×3 (09:13→20:37)
[2017-11-06] MEDS: OLANzapine TAB* 5 MG PO SCH (09:14)
[2017-11-06] MEDS: metFORMIN* 500 MG TAB PO SCH ×2 (09:14→20:37)
[2017-11-06] MEDS: Vitamin THERAPEUTIC TAB PO SCH (09:14)
[2017-11-06] MEDS: lamoTRIgine TAB(*) 100 MG PO SCH ×2 (09:14→20:36)
[2017-11-06] MEDS: Acetaminophen TAB* 325 MG PO PRN (12:13)
[2017-11-06] MEDS ORDERED: diPHENhydraMINE PO* 25 MG ONE (14:34)
[2017-11-06] MEDS: Lurasidone(*) 80 MG TAB PO SCH (16:57)
[2017-11-06] MEDS: traZODone TAB* 100 MG PO SCH (20:35)
[2017-11-06] MEDS: Atorvastatin* 40 MG TAB PO SCH (20:36)
[2017-11-07] MEDS: Insulin GLARGINE(*) 1 UNITS UNIT SUBCUT SCH ×2 (09:22→20:54)
[2017-11-07] MEDS: Insulin LISPRO* 1 UNITS UNIT SUBCUT SCH ×3 (09:23→17:40)
[2017-11-07] MEDS: lamoTRIgine TAB(*) 100 MG PO SCH ×2 (11:12→20:50)
[2017-11-07] MEDS: OLANzapine TAB* 5 MG PO SCH (11:13)
[2017-11-07] MEDS: Sertraline* 100 MG TAB PO SCH (11:13)
[2017-11-07] MEDS: CMC: SitaGLIPtin (NF) 25 MG TAB PO SCH ×2 (11:13→20:52)
[2017-11-07] MEDS: Losartan TAB* 25 MG PO SCH (11:13)
[2017-11-07] MEDS: Gabapentin CAP(*) 300 MG PO SCH ×3 (11:13→20:51)
[2017-11-07] MEDS: metFORMIN* 500 MG TAB PO SCH ×2 (11:13→20:54)
[2017-11-07] MEDS: Omeprazole CAP* 20 MG PO SCH (11:14)
[2017-11-07] MEDS: Levothyroxine TAB* 100 MCG TAB PO SCH (11:14)
[2017-11-07] MEDS: Levothyroxine TAB* 50 MCG TAB PO SCH (11:14)
[2017-11-07] MEDS: Vitamin THERAPEUTIC TAB PO SCH (11:14)
[2017-11-07] MEDS: Nicotine Inhaler* 10 MG AMP INH PRN ×2 (11:47→18:56)
[2017-11-07] MEDS: Mouth Piece, Nicotine* 1 EACH CARTRIDGE ONE ×2 (12:49→18:57)
--- NOTE | 2017-11-07 16:13 | PN ---
Subjective - Subjective Service Type: 28090 Hosp care 25 min moderate complexity Subjective: According to staff, patient reported finding a "half pill" in her room and swallowed it. No noted distress or effect. Will continue to monitor. Patient is euthymic upon approach when fiction and nonfiction writer prose visited another patient in their shared room. She is sleeping and difficulty to rouse this afternoon. She is snoring audibly. She has completed her own ADLs and been compliant with unit routines. Objective - Appearance Appearance: Obese Dysmorphic Features: Yes Hygiene: Mal-odorous Grooming: Fairly Well Kept - Behavior Psychomotor Activities: Normal Exhibits Abnormal Movement: No - Attitude and Relatedness Attitude and Relatedness: Superficially Cooperative Eye Contact: Fair - Speech Quality: Unpressured Latencies: Normal Quantity: Terse - Mood Patient's Decription of Mood: "Good" - Affect Observed Affect: Good Affect Consistent with: Euthymia - Thought Process Patient's Thought Process: Impoverished Thought Content: Yes Passive Wish, No Suicidal Planning, No Homicidal Ideation, No Paranoid Ideation - Sensorium Experiencing Hallucinations: No, Sensorium is Clear - Level of Consciousness Level of Consciousness: Alert Orientation: Yes Intact, Yes Orientated to Time, Yes Orientated to Place, Yes Orientated to Person - Impulse Control Impulse Control: Impaired - Insight and Judgement Insight and Judgement: Impaired - Group Participation Particating in Group Activities: Yes - Medication Management Medication Management Adherence: Yes Assessment - Assessment Merits Inpatient Hospitalization: For Immediate Safety, For Stabilization Inpatient DSM-V Dx: F43.10 Clinical Impression: 52yo white female with history of multiple psychiatric admissions. She became unresponsive and her phoned EMS. Patient was monitored on ICU for intentional overdose attempt, likely on opioid pain medication. She transferred to [facility] on 11/04/17 and merits hospitalization for immediate safety. Plan - Plan Treatment Plan: Name: CECILIO ALFARO Birthdate: 1965 [id number] continue acute intensive psychiatric treatment. review polypharmacy and make changes where indicated. discharge planning to include family and outpatient providers. Continued Medication Management: Continue Outpt Medication Medications: Current Medications Acetaminophen (Tylenol Tab*) 650 mg PO Q4H PRN PRN Reason: for pain; or Temp >101 F Last Admin: 11/06/17 12:13 Dose: 650 mg Al Hydrox/Mg Hydrox/Simethicone (Maalox Plus*) 30 ml PO Q4H PRN PRN Reason: INDIGESTION Last Admin: 11/06/17 20:56 Dose: 30 ml Albuterol (Ventolin Hfa Inhaler*) 1 puff INH Q6H PRN PRN Reason: wheeze Atorvastatin Calcium (Lipitor*) 40 mg PO 2100 [facility] Last Admin: 11/06/17 20:36 Dose: 40 mg Gabapentin (Neurontin Cap(*)) 600 mg PO BID [facility] Last Admin: 11/07/17 11:13 Dose: 600 mg Gabapentin (Neurontin Cap(*)) 1,200 mg PO BEDTIME [facility] Last Admin: 11/06/17 20:37 Dose: 1,200 mg Insulin Glargine (Lantus(*)) 70 units SUBCUT Q12H [facility] Last Admin: 11/07/17 09:22 Dose: 70 units Insulin Human Lispro (Humalog*) 15 units SUBCUT TID WITH MEALS [facility] Last Admin: 11/07/17 12:04 Dose: 15 units Lamotrigine (Lamictal Tab(*)) 150 mg PO BID [facility] Last Admin: 11/07/17 11:12 Dose: 150 mg Levothyroxine Sodium (Synthroid Tab*) 200 mcg PO DAILY@0600 [facility] Last Admin: 11/07/17 11:14 Dose: 200 mcg Levothyroxine Sodium (Synthroid Tab*) 50 mcg PO DAILY@0600 [facility] Last Admin: 11/07/17 11:14 Dose: 50 mcg Losartan Potassium (Cozaar Tab*) 25 mg PO DAILY [facility] Last Admin: 11/07/17 11:13 Dose: 25 mg Lurasidone HCl (Latuda) 80 mg PO QPM [facility] Last Admin: 11/06/17 16:57 Dose: 80 mg Metformin HCl (Glucophage*) 500 mg PO BID [facility] Last Admin: 11/07/17 11:13 Dose: 500 mg Multivitamins (Theragran Tab*) 1 tab PO DAILY [facility] Last Admin: 11/07/17 11:14 Dose: 1 tab Nicotine (Nicotine Inhaler*) 10 mg INH Q2H PRN PRN Reason: CRAVING Last Admin: 11/07/17 11:47 Dose: 10 mg Nicotine Polacrilex (Nicotine Gum*) 2 mg PO Q2H PRN PRN Reason: CRAVING Olanzapine (Zyprexa Tab*) 7.5 mg PO DAILY [facility] Last Admin: 11/07/17 11:13 Dose: 7.5 mg Omeprazole (Prilosec Cap*) 20 mg PO DAILY@0730 [facility] Last Admin: 11/07/17 11:14 Dose: 20 mg Sertraline HCl (Zoloft*) 200 mg PO QAM [facility] Last Admin: 11/07/17 11:13 Dose: 200 mg Sitagliptin Phosphate (Januvia (Nf)) 50 mg PO BID [facility] Last Admin: 11/07/17 11:13 Dose: 50 mg Trazodone HCl (Desyrel Tab*) 400 mg PO BEDTIME [facility] Last Admin: 11/06/17 20:35 Dose: 400 mg - Discharge Plan Discharge Plan: Outpatient Follow Up Outpatient Program: [facility]
[2017-11-07] MEDS: Lurasidone(*) 80 MG TAB PO SCH (17:40)
[2017-11-07] MEDS ORDERED: Mouth Piece, Nicotine* 1 EACH CARTRIDGE ONE (18:56)
[2017-11-07] MEDS: traZODone TAB* 100 MG PO SCH (20:49)
[2017-11-07] MEDS: Atorvastatin* 40 MG TAB PO SCH (20:52)
[2017-11-08] MEDS: Acetaminophen TAB* 325 MG PO PRN (03:55)
[2017-11-08] MEDS: Levothyroxine TAB* 50 MCG TAB PO SCH (07:45)
[2017-11-08] MEDS: Omeprazole CAP* 20 MG PO SCH (07:46)
[2017-11-08] MEDS: Levothyroxine TAB* 100 MCG TAB PO SCH (07:46)
[2017-11-08] MEDS: Gabapentin CAP(*) 300 MG PO SCH ×3 (09:54→22:49)
[2017-11-08] MEDS: Insulin GLARGINE(*) 1 UNITS UNIT SUBCUT SCH ×2 (09:54→20:35)
[2017-11-08] MEDS: Insulin LISPRO* 1 UNITS UNIT SUBCUT SCH ×3 (09:54→17:15)
[2017-11-08] MEDS: Sertraline* 100 MG TAB PO SCH (09:55)
[2017-11-08] MEDS: OLANzapine TAB* 5 MG PO SCH (09:55)
[2017-11-08] MEDS: Losartan TAB* 25 MG PO SCH (09:55)
[2017-11-08] MEDS: lamoTRIgine TAB(*) 100 MG PO SCH ×2 (09:55→20:28)
[2017-11-08] MEDS: metFORMIN* 500 MG TAB PO SCH ×2 (09:55→20:27)
[2017-11-08] MEDS: Vitamin THERAPEUTIC TAB PO SCH (09:55)
[2017-11-08] MEDS: CMC: SitaGLIPtin (NF) 25 MG TAB PO SCH ×2 (09:55→20:28)
[2017-11-08] MEDS ORDERED: traZODone TAB* 100 MG PO PRN (13:00)
--- NOTE | 2017-11-08 13:44 | PN ---
Subjective - Subjective Service Type: [id number] Hosp care 35 min high complexity Subjective: Patient engaged in self-harm last evening. She swallowed a nicotine inhaler cartridge and scratched herself on her left wrist. She was given a behavioral analysis and reminded of her behavior modification plan. Patient states she is frustrated with mental and physical pain. She states she fell twice in the last month and injured her Right "rotatary cuff" and upper back. She reports utilizing hydrocodone for pain but doesn't like that her makes her feel "funky." She states her psychiatric medications are "working." Florist Supplies Salesperson inquired about reports of patient's stool incontinence in her apartment property. She states she "stopped" doing this and thought it was related to IBS. Objective - Appearance Appearance: Obese Dysmorphic Features: Yes Hygiene: Mal-odorous Grooming: Fairly Well Kept - Behavior Psychomotor Activities: Normal Exhibits Abnormal Movement: No - Attitude and Relatedness Attitude and Relatedness: Child Like Eye Contact: Good - Speech Quality: Unpressured Latencies: Normal Quantity: Appropriate - Mood Patient's Decription of Mood: "Upset" - Affect Observed Affect: Good Affect Consistent with: Euthymia - Thought Process Patient's Thought Process: Coherent, Circumstantial Thought Content: Yes Passive Wish, No Suicidal Planning, No Homicidal Ideation, No Paranoid Ideation - Sensorium Experiencing Hallucinations: No, Sensorium is Clear Type of Hallucinations: Visual: No, Auditory: No, Command: No - Level of Consciousness Level of Consciousness: Alert Orientation: Yes Intact, Yes Orientated to Time, Yes Orientated to Place, Yes Orientated to Person - Impulse Control Impulse Control: Impaired - Insight and Judgement Insight and Judgement: Impaired - Group Participation Particating in Group Activities: No - Medication Management Medication Management Adherence: Yes Assessment - Assessment Merits Inpatient Hospitalization: For Immediate Safety, For Stabilization, To Initiate Treatment Inpatient DSM-V Dx: F43.10 Clinical Impression: 52yo white female with history of multiple psychiatric admissions. She became unresponsive and her phoned EMS. Patient was monitored on ICU for intentional overdose attempt, likely on opioid pain medication. She transferred to [facility] on 11/04/17 and merits hospitalization for immediate safety. Plan - Plan Treatment Plan: Name: CECILIO ALFARO Birthdate: 1965 [id number] continue acute intensive psychiatric treatment. continue to attempt to decrease polypharmacy. medication changes: decrease olanzapine to 5mg, change trazodone to prn, dc sertraline and start duloxetine 60mg daily, add lidocaine patch, dc nicotine inhaler, add nicotine patch and continue nicotine gum. continue to refrain from controlled substances due to risk for overdose. discharge planning to include family and outpatient providers. Continued Medication Management: Different Medication Medications: Current Medications Acetaminophen (Tylenol Tab*) 650 mg PO Q4H PRN PRN Reason: for pain; or Temp >101 F Last Admin: 11/08/17 03:55 Dose: 650 mg Al Hydrox/Mg Hydrox/Simethicone (Maalox Plus*) 30 ml PO Q4H PRN PRN Reason: INDIGESTION Last Admin: 11/06/17 20:56 Dose: 30 ml Albuterol (Ventolin Hfa Inhaler*) 1 puff INH Q6H PRN PRN Reason: wheeze Atorvastatin Calcium (Lipitor*) 40 mg PO 2100 [facility] Last Admin: 11/07/17 20:52 Dose: 40 mg Duloxetine HCl (Cymbalta Cap*) 60 mg PO DAILY [facility] Gabapentin (Neurontin Cap(*)) 600 mg PO BID [facility] Last Admin: 11/08/17 09:54 Dose: Not Given Gabapentin (Neurontin Cap(*)) 1,200 mg PO BEDTIME [facility] Last Admin: 11/07/17 20:51 Dose: 1,200 mg Insulin Glargine (Lantus(*)) 70 units SUBCUT 0900,2100 [facility] Last Admin: 11/08/17 09:54 Dose: Not Given Insulin Human Lispro (Humalog*) 15 units SUBCUT TID WITH MEALS [facility] Last Admin: 11/08/17 11:48 Dose: 15 units Lamotrigine (Lamictal Tab(*)) 150 mg PO BID [facility] Last Admin: 11/08/17 09:55 Dose: Not Given Levothyroxine Sodium (Synthroid Tab*) 200 mcg PO DAILY@0600 [facility] Last Admin: 11/08/17 07:46 Dose: 200 mcg Levothyroxine Sodium (Synthroid Tab*) 50 mcg PO DAILY@0600 [facility] Last Admin: 11/08/17 07:45 Dose: 50 mcg Lidocaine (Lidoderm 5% Patch*) 1 patch TRANSDERM DAILY [facility] Losartan Potassium (Cozaar Tab*) 25 mg PO DAILY [facility] Last Admin: 11/08/17 09:55 Dose: Not Given Lurasidone HCl (Latuda) 80 mg PO QPM [facility] Last Admin: 11/07/17 17:40 Dose: 80 mg Metformin HCl (Glucophage*) 500 mg PO BID [facility] Last Admin: 11/08/17 09:55 Dose: Not Given Multivitamins (Theragran Tab*) 1 tab PO DAILY [facility] Last Admin: 11/08/17 09:55 Dose: Not Given Nicotine Polacrilex (Nicotine Gum*) 2 mg PO Q2H PRN PRN Reason: CRAVING Olanzapine (Zyprexa Tab*) 5 mg PO DAILY [facility] Omeprazole (Prilosec Cap*) 20 mg PO DAILY@0730 [facility] Last Admin: 11/08/17 07:46 Dose: 20 mg Pharmacy Profile Note (Lidocaine Patch Remove*) 1 note PATCH OFF 2100 [facility] Sitagliptin Phosphate (Januvia (Nf)) 50 mg PO BID [facility] Last Admin: 11/08/17 09:55 Dose: Not Given Trazodone HCl (Desyrel Tab*) 400 mg PO BEDTIME PRN PRN Reason: INSOMNIA - Discharge Plan Discharge Plan: Outpatient Follow Up
[2017-11-08] MEDS ORDERED: Lidocaine PATCH 5%* 1 PATCH TRANSDERM SCH (14:00)
[2017-11-08] MEDS: Lidocaine PATCH 5%* 1 PATCH TRANSDERM SCH (16:43)
[2017-11-08] MEDS: Lurasidone(*) 80 MG TAB PO SCH (17:15)
[2017-11-08] MEDS ORDERED: Mouth Piece, Nicotine* 1 EACH CARTRIDGE ONE (19:17)
[2017-11-08] MEDS ORDERED: Nicotine Inhaler* 10 MG AMP ONE (19:19)
[2017-11-08] MEDS: Nicotine GUM* 2 MG PO PRN ×2 (19:22→22:48)
[2017-11-08] MEDS: Atorvastatin* 40 MG TAB PO SCH (20:28)
[2017-11-08] MEDS: Lidocaine Patch REMOVE* 1 NOTE MISC PATCH OFF SCH (22:50)
[2017-11-08] MEDS ORDERED: diPHENhydraMINE PO* 50 MG PO ONE (23:00)
[2017-11-08] MEDS ORDERED: diPHENhydraMINE PO* 50 MG ONE (23:49)
[2017-11-09] MEDS: Insulin LISPRO* 1 UNITS UNIT SUBCUT SCH ×3 (07:53→16:35)
[2017-11-09] MEDS: Insulin GLARGINE(*) 1 UNITS UNIT SUBCUT SCH ×2 (08:02→20:55)
[2017-11-09] MEDS: Omeprazole CAP* 20 MG PO SCH (09:06)
[2017-11-09] MEDS: Levothyroxine TAB* 100 MCG TAB PO SCH (09:06)
[2017-11-09] MEDS: Vitamin THERAPEUTIC TAB PO SCH (09:06)
[2017-11-09] MEDS: Levothyroxine TAB* 50 MCG TAB PO SCH (09:06)
[2017-11-09] MEDS: metFORMIN* 500 MG TAB PO SCH ×2 (09:06→20:30)
[2017-11-09] MEDS: Gabapentin CAP(*) 300 MG PO SCH ×2 (09:06→20:27)
[2017-11-09] MEDS: OLANzapine TAB* 5 MG PO SCH (09:06)
[2017-11-09] MEDS: CMC: SitaGLIPtin (NF) 25 MG TAB PO SCH ×2 (09:06→20:29)
[2017-11-09] MEDS: Losartan TAB* 25 MG PO SCH (09:06)
[2017-11-09] MEDS: DULoxetine DR CAP* 60 MG CAP.DR PO SCH (09:07)
[2017-11-09] MEDS: lamoTRIgine TAB(*) 100 MG PO SCH ×2 (09:07→20:32)
[2017-11-09] MEDS: Lidocaine PATCH 5%* 1 PATCH TRANSDERM SCH (09:54)
[2017-11-09] MEDS: Nicotine GUM* 2 MG PO PRN ×2 (10:10→15:41)
[2017-11-09] MEDS ORDERED: Gabapentin CAP(*) 300 MG PO SCH (10:11)
[2017-11-09] MEDS ORDERED: traZODone TAB* 100 MG PO PRN (10:12)
[2017-11-09] MEDS: Nicotine PATCH 14 MG/24 HR* PATCH TRANSDERM SCH (11:09)
[2017-11-09] MEDS: Lurasidone(*) 80 MG TAB PO SCH (17:12)
--- NOTE | 2017-11-09 17:35 | PN ---
Subjective - Subjective Service Type: 72527 Hosp care 25 min moderate complexity Subjective: Taryn reports relief in mood due to having a civil conversation with her , . She states that she confessed to the Lord about "what happened to me before I came here." X Ray Physician clarifies that she is referring to overdose attempt. She states that she is prayed to have back and that he called shortly thereafter. She reports desire to return home and to see her counselor, Sahil twice a week. In contrast to above, patient's has called staff numerous times with distress and concern that he does not want Taryn to return home. Objective - Appearance Appearance: Obese Dysmorphic Features: Yes Hygiene: Mal-odorous Grooming: Disheveled - Behavior Psychomotor Activities: Normal Exhibits Abnormal Movement: No - Attitude and Relatedness Attitude and Relatedness: Child Like Eye Contact: Good - Speech Quality: Unpressured Latencies: Normal - Mood Patient's Decription of Mood: "Good" - Affect Observed Affect: Good Affect Consistent with: Euthymia - Thought Process Patient's Thought Process: Impoverished Thought Content: Yes Passive Wish, Yes Suicidal Planning - chronic, No Homicidal Ideation, No Paranoid Ideation - Sensorium Experiencing Hallucinations: No, Sensorium is Clear Type of Hallucinations: Visual: No, Auditory: No, Command: No - Level of Consciousness Level of Consciousness: Alert Orientation: Yes Intact, Yes Orientated to Time, Yes Orientated to Place, Yes Orientated to Person - Impulse Control Impulse Control: Impaired - Insight and Judgement Insight and Judgement: Impaired - Group Participation Particating in Group Activities: No - Medication Management Medication Management Adherence: Yes Assessment - Assessment Merits Inpatient Hospitalization: For Immediate Safety, For Stabilization, Pending Safe DC Plan Inpatient DSM-V Dx: F43.10 Clinical Impression: 52yo white female with history of multiple psychiatric admissions. She became unresponsive and her phoned EMS. Patient was monitored on ICU for intentional overdose attempt, likely on opioid pain medication. She transferred to [facility] on 11/04/17 and merits hospitalization for immediate safety. Plan - Plan Treatment Plan: Name: TARYN ALFARO Birthdate: 1965 [id number] continue acute intensive psychiatric treatment. continue to attempt to decrease polypharmacy. medication changes: decrease trazodone to 300mg qhs prn, decrease hs dose of gabapentin. add diphenhydramine prn for anxiety per patient request. continue lidocaine patch, dc nicotine inhaler, add nicotine patch and continue nicotine gum. continue to refrain from controlled substances due to risk for overdose. consider referral to [facility] hospitalization due to failure of outpatient treatment. Continued Medication Management: Different Medication Medications: Current Medications Acetaminophen (Tylenol Tab*) 650 mg PO Q4H PRN PRN Reason: for pain; or Temp >101 F Last Admin: 11/08/17 03:55 Dose: 650 mg Al Hydrox/Mg Hydrox/Simethicone (Maalox Plus*) 30 ml PO Q4H PRN PRN Reason: INDIGESTION Last Admin: 11/06/17 20:56 Dose: 30 ml Albuterol (Ventolin Hfa Inhaler*) 1 puff INH Q6H PRN PRN Reason: wheeze Atorvastatin Calcium (Lipitor*) 40 mg PO 2100 [facility] Last Admin: 11/08/17 20:28 Dose: 40 mg Diphenhydramine HCl (Benadryl Po*) 25 mg PO Q4H PRN PRN Reason: ANXIETY Duloxetine HCl (Cymbalta Cap*) 60 mg PO DAILY [facility] Last Admin: 11/09/17 09:07 Dose: 60 mg Gabapentin (Neurontin Cap(*)) 600 mg PO BID [facility] Last Admin: 11/09/17 09:06 Dose: 600 mg Gabapentin (Neurontin Cap(*)) 900 mg PO BEDTIME [facility] Insulin Glargine (Lantus(*)) 70 units SUBCUT 0900,2100 [facility] Last Admin: 11/09/17 08:02 Dose: 70 units Insulin Human Lispro (Humalog*) 15 units SUBCUT TID WITH MEALS [facility] Last Admin: 11/09/17 16:35 Dose: 15 units Lamotrigine (Lamictal Tab(*)) 150 mg PO BID [facility] Last Admin: 11/09/17 09:07 Dose: 150 mg Levothyroxine Sodium (Synthroid Tab*) 200 mcg PO DAILY@0600 [facility] Last Admin: 11/09/17 09:06 Dose: 200 mcg Levothyroxine Sodium (Synthroid Tab*) 50 mcg PO DAILY@0600 [facility] Last Admin: 11/09/17 09:06 Dose: 50 mcg Lidocaine (Lidoderm 5% Patch*) 1 patch TRANSDERM 0900 [facility] Last Admin: 11/09/17 09:54 Dose: 1 patch Losartan Potassium (Cozaar Tab*) 25 mg PO DAILY [facility] Last Admin: 11/09/17 09:06 Dose: 25 mg Lurasidone HCl (Latuda) 80 mg PO QPM [facility] Last Admin: 11/09/17 17:12 Dose: 80 mg Metformin HCl (Glucophage*) 500 mg PO BID [facility] Last Admin: 11/09/17 09:06 Dose: 500 mg Multivitamins (Theragran Tab*) 1 tab PO DAILY [facility] Last Admin: 11/09/17 09:06 Dose: 1 tab Nicotine (Nicotine Patch 14 Mg/24 Hr*) 1 patch TRANSDERM DAILY [facility] Last Admin: 11/09/17 11:09 Dose: 1 patch Nicotine Polacrilex (Nicotine Gum*) 2 mg PO Q2H PRN PRN Reason: CRAVING Last Admin: 11/09/17 15:41 Dose: 2 mg Olanzapine (Zyprexa Tab*) 5 mg PO DAILY [facility] Last Admin: 11/09/17 09:06 Dose: 5 mg Omeprazole (Prilosec Cap*) 20 mg PO DAILY@0730 [facility] Last Admin: 11/09/17 09:06 Dose: 20 mg Pharmacy Profile Note (Lidocaine Patch Remove*) 1 note PATCH OFF 2099 [facility] Last Admin: 11/08/17 22:50 Dose: Not Given Pharmacy Profile Note (Nicotine Patch Removal Note*) 1 note FOLLOW UP 2099 [facility] Sitagliptin Phosphate (Januvia (Nf)) 50 mg PO BID [facility] Last Admin: 11/09/17 09:06 Dose: 50 mg Trazodone HCl (Desyrel Tab*) 300 mg PO BEDTIME PRN PRN Reason: INSOMNIA - Discharge Plan Discharge Plan: Consider Longer Term Tx
[2017-11-09] MEDS: diPHENhydraMINE PO* 25 MG PO PRN (18:22)
[2017-11-09] MEDS: Atorvastatin* 40 MG TAB PO SCH (20:29)
[2017-11-09] MEDS: Lidocaine Patch REMOVE* 1 NOTE MISC PATCH OFF SCH (20:56)
[2017-11-09] MEDS: Nicotine Patch Removal NOTE FOLLOW UP SCH (20:56)
[2017-11-10] MEDS: Omeprazole CAP* 20 MG PO SCH (07:19)
[2017-11-10] MEDS: Levothyroxine TAB* 100 MCG TAB PO SCH (07:20)
[2017-11-10] MEDS: Levothyroxine TAB* 50 MCG TAB PO SCH (07:20)
[2017-11-10] MEDS: Insulin LISPRO* 1 UNITS UNIT SUBCUT SCH ×3 (08:27→17:02)
[2017-11-10] MEDS: Insulin GLARGINE(*) 1 UNITS UNIT SUBCUT SCH ×2 (08:29→20:32)
[2017-11-10] MEDS: DULoxetine DR CAP* 60 MG CAP.DR PO SCH (08:30)
[2017-11-10] MEDS: Vitamin THERAPEUTIC TAB PO SCH (08:30)
[2017-11-10] MEDS: metFORMIN* 500 MG TAB PO SCH ×2 (08:30→20:35)
[2017-11-10] MEDS: Losartan TAB* 25 MG PO SCH (08:30)
[2017-11-10] MEDS: CMC: SitaGLIPtin (NF) 25 MG TAB PO SCH ×2 (08:30→20:35)
[2017-11-10] MEDS: OLANzapine TAB* 5 MG PO SCH (08:31)
[2017-11-10] MEDS: lamoTRIgine TAB(*) 100 MG PO SCH ×2 (08:31→20:34)
[2017-11-10] MEDS: Gabapentin CAP(*) 300 MG PO SCH ×2 (08:32→20:35)
[2017-11-10] MEDS: Nicotine PATCH 14 MG/24 HR* PATCH TRANSDERM SCH (08:33)
[2017-11-10] MEDS: Lidocaine PATCH 5%* 1 PATCH TRANSDERM SCH (08:48)
[2017-11-10] MEDS: Nicotine GUM* 2 MG PO PRN ×3 (10:36→20:38)
[2017-11-10] MEDS: diPHENhydraMINE PO* 25 MG PO PRN ×2 (10:37→18:04)
[2017-11-10] MEDS ORDERED: traZODone TAB* 100 MG PO PRN (14:10)
[2017-11-10] MEDS: Acetaminophen TAB* 325 MG PO PRN (14:11)
--- NOTE | 2017-11-10 14:18 | PN ---
Subjective - Subjective Service Type: 82076 Hosp care 25 min moderate complexity Subjective: Patient is ambulating independently. She reports confusion in regards to relationship with her , which typewriter tester validates. She states he is not allowing her to return to their apartment. 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 Patient requests order for nicotine inhaler. Ambulance Mechanic declines, citing recent swallowing of inhaler and risk for impulsivity. Ambulance Mechanic and Tracey Pradhan LMSW discuss referral options with patient. Objective - Appearance Appearance: Obese Dysmorphic Features: Yes Hygiene: Mal-odorous Grooming: Fairly Well Kept - Behavior Psychomotor Activities: Normal Exhibits Abnormal Movement: No - Attitude and Relatedness Attitude and Relatedness: Child Like Eye Contact: Good - Speech Quality: Unpressured Latencies: Normal Quantity: Appropriate - Mood Patient's Decription of Mood: "Upset" - Affect Observed Affect: Depressed Affect Consistent with: Dysphoria - Thought Process Patient's Thought Process: Circumstantial, Impoverished Thought Content: Yes Passive Wish, Yes Suicidal Planning, No Homicidal Ideation, No Paranoid Ideation - Sensorium Experiencing Hallucinations: No, Sensorium is Clear Type of Hallucinations: Visual: No, Auditory: No, Command: No - Level of Consciousness Level of Consciousness: Alert Orientation: Yes Intact, Yes Orientated to Time, Yes Orientated to Place, Yes Orientated to Person - Impulse Control Impulse Control: Poor - Insight and Judgement Insight and Judgement: Impaired - Group Participation Particating in Group Activities: Yes - Medication Management Medication Management Adherence: Yes Assessment - Assessment Merits Inpatient Hospitalization: For Immediate Safety, For Stabilization, Consolidate Improvements, For Discharge Planning Inpatient DSM-V Dx: F43.10 Clinical Impression: 52yo white female with history of multiple psychiatric admissions. She became unresponsive and her phoned EMS. Patient was monitored on ICU for intentional overdose attempt, likely on opioid pain medication. She transferred to [facility] on 11/04/17. She is undergoing changes to decrease polypharmacy and merits hospitalization for immediate safety. Plan - Plan Treatment Plan: Name: CECILIO ALFARO Birthdate: 1965 [id number] continue acute intensive psychiatric treatment. continue to attempt to decrease polypharmacy. medication changes: decrease trazodone to 200mg qhs prn, decrease gabapentin to 600mg TID. continue diphenhydramine prn for anxiety per patient request. continue lidocaine patch, nicotine patch and nicotine gum. continue to refrain from controlled substances due to risk for overdose. consider referral to [facility] hospitalization due to failure of outpatient treatment. Continued Medication Management: Different Medication Medications: Current Medications Acetaminophen (Tylenol Tab*) 650 mg PO Q4H PRN PRN Reason: for pain; or Temp >101 F Last Admin: 11/08/17 03:55 Dose: 650 mg Al Hydrox/Mg Hydrox/Simethicone (Maalox Plus*) 30 ml PO Q4H PRN PRN Reason: INDIGESTION Last Admin: 11/06/17 20:56 Dose: 30 ml Albuterol (Ventolin Hfa Inhaler*) 1 puff INH Q6H PRN PRN Reason: wheeze Atorvastatin Calcium (Lipitor*) 40 mg PO 2100 [facility] Last Admin: 11/09/17 20:29 Dose: 40 mg Diphenhydramine HCl (Benadryl Po*) 25 mg PO Q4H PRN PRN Reason: ANXIETY Last Admin: 11/10/17 10:37 Dose: 25 mg Duloxetine HCl (Cymbalta Cap*) 60 mg PO DAILY [facility] Last Admin: 11/10/17 08:30 Dose: 60 mg Gabapentin (Neurontin Cap(*)) 600 mg PO TID [facility] Insulin Glargine (Lantus(*)) 70 units SUBCUT 0900,2100 [facility] Last Admin: 11/10/17 08:29 Dose: 70 units Insulin Human Lispro (Humalog*) 15 units SUBCUT TID WITH MEALS [facility] Last Admin: 11/10/17 12:10 Dose: 15 units Lamotrigine (Lamictal Tab(*)) 150 mg PO BID [facility] Last Admin: 11/10/17 08:31 Dose: 150 mg Levothyroxine Sodium (Synthroid Tab*) 200 mcg PO DAILY@0600 [facility] Last Admin: 11/10/17 07:20 Dose: 200 mcg Levothyroxine Sodium (Synthroid Tab*) 50 mcg PO DAILY@0600 [facility] Last Admin: 11/10/17 07:20 Dose: 50 mcg Lidocaine (Lidoderm 5% Patch*) 1 patch TRANSDERM 0900 [facility] Last Admin: 11/10/17 08:48 Dose: 1 patch Losartan Potassium (Cozaar Tab*) 25 mg PO DAILY [facility] Last Admin: 11/10/17 08:30 Dose: 25 mg Lurasidone HCl (Latuda) 80 mg PO QPM [facility] Last Admin: 11/09/17 17:12 Dose: 80 mg Metformin HCl (Glucophage*) 500 mg PO BID [facility] Last Admin: 11/10/17 08:30 Dose: 500 mg Multivitamins (Theragran Tab*) 1 tab PO DAILY [facility] Last Admin: 11/10/17 08:30 Dose: 1 tab Nicotine (Nicotine Patch 14 Mg/24 Hr*) 1 patch TRANSDERM DAILY [facility] Last Admin: 11/10/17 08:33 Dose: 1 patch Nicotine Polacrilex (Nicotine Gum*) 2 mg PO Q2H PRN PRN Reason: CRAVING Last Admin: 11/10/17 10:36 Dose: 2 mg Olanzapine (Zyprexa Tab*) 5 mg PO DAILY [facility] Last Admin: 11/10/17 08:31 Dose: 5 mg Omeprazole (Prilosec Cap*) 20 mg PO DAILY@0730 [facility] Last Admin: 11/10/17 07:19 Dose: 20 mg Pharmacy Profile Note (Lidocaine Patch Remove*) 1 note PATCH OFF 2099 [facility] Last Admin: 11/09/17 20:56 Dose: 1 note Pharmacy Profile Note (Nicotine Patch Removal Note*) 1 note FOLLOW UP 2099 [facility] Last Admin: 11/09/17 20:56 Dose: 1 note Sitagliptin Phosphate (Januvia (Nf)) 50 mg PO BID [facility] Last Admin: 11/10/17 08:30 Dose: 50 mg Trazodone HCl (Desyrel Tab*) 200 mg PO BEDTIME PRN PRN Reason: INSOMNIA - Discharge Plan Discharge Plan: Consider Longer Term Tx
--- NOTE | 2017-11-10 16:17 | PN ---
[facility]: Group Therapy Note - Service Type Service Type: [id number] Group Psychotherapy - Medication Education Group: Patient was attentive and participatory in group, and remained in good behavioral control. Patient expressed positive insights regarding relevant treatment interventions. Patient stated understanding of material discussed and had appropriate questions.
[2017-11-10] MEDS: Lurasidone(*) 80 MG TAB PO SCH (18:01)
[2017-11-10] MEDS: Atorvastatin* 40 MG TAB PO SCH (20:35)
[2017-11-10] MEDS: Lidocaine Patch REMOVE* 1 NOTE MISC PATCH OFF SCH (21:06)
[2017-11-10] MEDS: Nicotine Patch Removal NOTE FOLLOW UP SCH (21:07)
[2017-11-11] MEDS: Levothyroxine TAB* 100 MCG TAB PO SCH (07:15)
[2017-11-11] MEDS: Levothyroxine TAB* 50 MCG TAB PO SCH (07:16)
[2017-11-11] MEDS: Insulin LISPRO* 1 UNITS UNIT SUBCUT SCH ×3 (07:39→17:09)
[2017-11-11] MEDS: Omeprazole CAP* 20 MG PO SCH (07:39)
[2017-11-11] MEDS: Insulin GLARGINE(*) 1 UNITS UNIT SUBCUT SCH ×2 (07:40→21:07)
[2017-11-11] MEDS: DULoxetine DR CAP* 60 MG CAP.DR PO SCH (09:22)
[2017-11-11] MEDS: lamoTRIgine TAB(*) 100 MG PO SCH ×2 (09:22→20:27)
[2017-11-11] MEDS: Gabapentin CAP(*) 300 MG PO SCH ×3 (09:22→20:27)
[2017-11-11] MEDS: OLANzapine TAB* 5 MG PO SCH (09:23)
[2017-11-11] MEDS: Vitamin THERAPEUTIC TAB PO SCH (09:23)
[2017-11-11] MEDS: metFORMIN* 500 MG TAB PO SCH ×2 (09:23→20:28)
[2017-11-11] MEDS: Losartan TAB* 25 MG PO SCH (09:23)
[2017-11-11] MEDS: CMC: SitaGLIPtin (NF) 25 MG TAB PO SCH ×2 (09:26→20:28)
[2017-11-11] MEDS: Nicotine PATCH 14 MG/24 HR* PATCH TRANSDERM SCH (09:28)
[2017-11-11] MEDS: Lidocaine PATCH 5%* 1 PATCH TRANSDERM SCH (09:28)
[2017-11-11] MEDS: Nicotine GUM* 2 MG PO PRN ×2 (09:31→14:12)
[2017-11-11] MEDS: diPHENhydraMINE PO* 25 MG PO PRN (14:12)
--- NOTE | 2017-11-11 15:41 | PN ---
Subjective - Subjective Date of Service: 11/11/17 Service Type: 37072 Hosp care 15 min low complexity Subjective: Taryn and her often have emotional phone conversations. She now states she is him and wants to live with her mother. Patient states she has been "working hard" at [employer]. She states she wanted ativan last night due to stress at bedtime but was able to use guided imagery to fall asleep. She expresses desire to stay in control of her behavior. Patient states she is anxious about being single because men "always hit on me" and she wants to work on herself. Objective - Appearance Appearance: Obese Dysmorphic Features: Yes Hygiene: Mal-odorous Grooming: Disheveled - Behavior Psychomotor Activities: Normal Exhibits Abnormal Movement: No - Attitude and Relatedness Attitude and Relatedness: Cooperative Eye Contact: Good - Speech Quality: Unpressured Latencies: Normal Quantity: Appropriate - Mood Patient's Decription of Mood: "Okay" - Affect Observed Affect: Good Affect Consistent with: Euthymia - Thought Process Patient's Thought Process: Coherent, Goal Directed, Impoverished Thought Content: No Passive Wish, No Suicidal Planning, No Homicidal Ideation, No Paranoid Ideation - Sensorium Experiencing Hallucinations: No, Sensorium is Clear Type of Hallucinations: Visual: No, Auditory: No, Command: No - Level of Consciousness Level of Consciousness: Alert Orientation: Yes Intact, Yes Orientated to Time, Yes Orientated to Place, Yes Orientated to Person - Impulse Control Impulse Control: Impaired - Insight and Judgement Insight and Judgement: Poor - Group Participation Particating in Group Activities: Yes - Medication Management Medication Management Adherence: Yes Assessment - Assessment Merits Inpatient Hospitalization: For Immediate Safety, For Stabilization, Consolidate Improvements, Pending Safe DC Plan Inpatient DSM-V Dx: F43.10 Clinical Impression: 52yo white female with history of multiple psychiatric admissions. She became unresponsive and her phoned EMS. Patient was monitored on ICU for intentional overdose attempt, likely on opioid pain medication. She transferred to [facility] on 11/04/17. She is undergoing changes to decrease polypharmacy and merits hospitalization for immediate safety. Plan - Plan Treatment Plan: Name: TARYN ALFARO Birthdate: 1965 [id number] continue acute intensive psychiatric treatment. continue to attempt to decrease polypharmacy. medication changes: decrease trazodone to 100mg qhs prn, decrease gabapentin to 600mg BID and 400mg at 1400. continue diphenhydramine prn for anxiety per patient request. continue lidocaine patch, nicotine patch and nicotine gum. continue to refrain from controlled substances due to risk for overdose. consider referral to [facility] hospitalization due to failure of outpatient treatment. Continued Medication Management: Different Medication Medications: Current Medications Acetaminophen (Tylenol Tab*) 650 mg PO Q4H PRN PRN Reason: for pain; or Temp >101 F Last Admin: 11/10/17 14:11 Dose: 650 mg Al Hydrox/Mg Hydrox/Simethicone (Maalox Plus*) 30 ml PO Q4H PRN PRN Reason: INDIGESTION Last Admin: 11/06/17 20:56 Dose: 30 ml Albuterol (Ventolin Hfa Inhaler*) 1 puff INH Q6H PRN PRN Reason: wheeze Atorvastatin Calcium (Lipitor*) 40 mg PO 2100 [facility] Last Admin: 11/10/17 20:35 Dose: 40 mg Diphenhydramine HCl (Benadryl Po*) 25 mg PO Q4H PRN PRN Reason: ANXIETY Last Admin: 11/11/17 14:12 Dose: 25 mg Duloxetine HCl (Cymbalta Cap*) 60 mg PO DAILY [facility] Last Admin: 11/11/17 09:22 Dose: 60 mg Gabapentin (Neurontin Cap(*)) 600 mg PO TID [facility] Last Admin: 11/11/17 14:09 Dose: 600 mg Insulin Glargine (Lantus(*)) 70 units SUBCUT 0900,2100 [facility] Last Admin: 11/11/17 07:40 Dose: 70 units Insulin Human Lispro (Humalog*) 15 units SUBCUT TID WITH MEALS [facility] Last Admin: 11/11/17 12:09 Dose: 15 units Lamotrigine (Lamictal Tab(*)) 150 mg PO BID [facility] Last Admin: 11/11/17 09:22 Dose: 150 mg Levothyroxine Sodium (Synthroid Tab*) 200 mcg PO DAILY@0600 [facility] Last Admin: 11/11/17 07:15 Dose: 200 mcg Levothyroxine Sodium (Synthroid Tab*) 50 mcg PO DAILY@0600 [facility] Last Admin: 11/11/17 07:16 Dose: 50 mcg Lidocaine (Lidoderm 5% Patch*) 1 patch TRANSDERM 0900 [facility] Last Admin: 11/11/17 09:28 Dose: 1 patch Losartan Potassium (Cozaar Tab*) 25 mg PO DAILY [facility] Last Admin: 11/11/17 09:23 Dose: 25 mg Lurasidone HCl (Latuda) 80 mg PO QPM [facility] Last Admin: 11/10/17 18:01 Dose: 80 mg Metformin HCl (Glucophage*) 500 mg PO BID [facility] Last Admin: 11/11/17 09:23 Dose: 500 mg Multivitamins (Theragran Tab*) 1 tab PO DAILY [facility] Last Admin: 11/11/17 09:23 Dose: 1 tab Nicotine (Nicotine Patch 14 Mg/24 Hr*) 1 patch TRANSDERM DAILY [facility] Last Admin: 11/11/17 09:28 Dose: 1 patch Nicotine Polacrilex (Nicotine Gum*) 2 mg PO Q2H PRN PRN Reason: CRAVING Last Admin: 11/11/17 14:12 Dose: 2 mg Olanzapine (Zyprexa Tab*) 5 mg PO DAILY [facility] Last Admin: 11/11/17 09:23 Dose: 5 mg Omeprazole (Prilosec Cap*) 20 mg PO DAILY@0730 [facility] Last Admin: 11/11/17 07:39 Dose: 20 mg Pharmacy Profile Note (Lidocaine Patch Remove*) 1 note PATCH OFF 2099 [facility] Last Admin: 11/10/17 21:06 Dose: 1 note Pharmacy Profile Note (Nicotine Patch Removal Note*) 1 note FOLLOW UP 2099 [facility] Last Admin: 11/10/17 21:07 Dose: 1 note Sitagliptin Phosphate (Januvia (Nf)) 50 mg PO BID [facility] Last Admin: 11/11/17 09:26 Dose: 50 mg Trazodone HCl (Desyrel Tab*) 200 mg PO BEDTIME PRN PRN Reason: INSOMNIA Last Admin: 11/10/17 20:39 Dose: 200 mg - Discharge Plan Discharge Plan: Outpatient Follow Up Outpatient Program: [facility]
[2017-11-11] MEDS: Lurasidone(*) 80 MG TAB PO SCH (17:29)
[2017-11-11] MEDS: Atorvastatin* 40 MG TAB PO SCH (20:26)
[2017-11-11] MEDS: traZODone TAB* 100 MG PO PRN (20:28)
[2017-11-11] MEDS: Lidocaine Patch REMOVE* 1 NOTE MISC PATCH OFF SCH (20:31)
[2017-11-11] MEDS: Nicotine Patch Removal NOTE FOLLOW UP SCH (20:31)
[2017-11-12] MEDS: Nicotine GUM* 2 MG PO PRN ×4 (03:25→20:48)
[2017-11-12] MEDS: Levothyroxine TAB* 100 MCG TAB PO SCH (07:17)
[2017-11-12] MEDS: Levothyroxine TAB* 50 MCG TAB PO SCH (07:18)
[2017-11-12] MEDS: Omeprazole CAP* 20 MG PO SCH (07:54)
[2017-11-12] MEDS: Insulin LISPRO* 1 UNITS UNIT SUBCUT SCH ×3 (07:59→16:54)
[2017-11-12] MEDS: Insulin GLARGINE(*) 1 UNITS UNIT SUBCUT SCH (07:59)
[2017-11-12] MEDS: lamoTRIgine TAB(*) 100 MG PO SCH ×2 (09:44→20:45)
[2017-11-12] MEDS: Gabapentin CAP(*) 300 MG PO SCH ×2 (09:44→20:45)
[2017-11-12] MEDS: DULoxetine DR CAP* 60 MG CAP.DR PO SCH (09:44)
[2017-11-12] MEDS: Losartan TAB* 25 MG PO SCH (09:45)
[2017-11-12] MEDS: OLANzapine TAB* 5 MG PO SCH (09:46)
[2017-11-12] MEDS: CMC: SitaGLIPtin (NF) 25 MG TAB PO SCH ×2 (09:46→20:45)
[2017-11-12] MEDS: metFORMIN* 500 MG TAB PO SCH ×2 (09:46→20:45)
[2017-11-12] MEDS: Vitamin THERAPEUTIC TAB PO SCH (09:46)
[2017-11-12] MEDS: Nicotine PATCH 14 MG/24 HR* PATCH TRANSDERM SCH (09:49)
[2017-11-12] MEDS: Lidocaine PATCH 5%* 1 PATCH TRANSDERM SCH (09:49)
[2017-11-12] MEDS: diPHENhydraMINE PO* 25 MG PO PRN (11:33)
[2017-11-12] MEDS: Gabapentin CAP(*) 400 MG PO SCH (14:21)
[2017-11-12] MEDS: Acetaminophen TAB* 325 MG PO PRN (16:52)
[2017-11-12] MEDS: Lurasidone(*) 80 MG TAB PO SCH (17:41)
[2017-11-12] MEDS: Lidocaine Patch REMOVE* 1 NOTE MISC PATCH OFF SCH (20:48)
[2017-11-12] MEDS: Nicotine Patch Removal NOTE FOLLOW UP SCH (20:48)
[2017-11-12] MEDS: Atorvastatin* 40 MG TAB PO SCH (20:48)
[2017-11-13] MEDS: Insulin GLARGINE(*) 1 UNITS UNIT SUBCUT SCH ×3 (00:45→21:48)
[2017-11-13] MEDS: Lidocaine PATCH 5%* 1 PATCH TRANSDERM SCH (09:18)
[2017-11-13] MEDS: OLANzapine TAB* 5 MG PO SCH (09:19)
[2017-11-13] MEDS: Gabapentin CAP(*) 300 MG PO SCH ×2 (09:19→21:38)
[2017-11-13] MEDS: Levothyroxine TAB* 50 MCG TAB PO SCH (09:21)
[2017-11-13] MEDS: lamoTRIgine TAB(*) 100 MG PO SCH ×2 (09:21→21:39)
[2017-11-13] MEDS: Vitamin THERAPEUTIC TAB PO SCH (09:21)
[2017-11-13] MEDS: DULoxetine DR CAP* 60 MG CAP.DR PO SCH (09:21)
[2017-11-13] MEDS: CMC: SitaGLIPtin (NF) 25 MG TAB PO SCH ×2 (09:21→21:40)
[2017-11-13] MEDS: Levothyroxine TAB* 100 MCG TAB PO SCH (09:21)
[2017-11-13] MEDS: Omeprazole CAP* 20 MG PO SCH (09:24)
[2017-11-13] MEDS: metFORMIN* 500 MG TAB PO SCH ×2 (09:24→21:39)
[2017-11-13] MEDS: Losartan TAB* 25 MG PO SCH (09:24)
[2017-11-13] MEDS: Nicotine PATCH 14 MG/24 HR* PATCH TRANSDERM SCH (09:26)
[2017-11-13] MEDS: Nicotine GUM* 2 MG PO PRN ×3 (09:27→21:42)
[2017-11-13] MEDS: Insulin LISPRO* 1 UNITS UNIT SUBCUT SCH ×3 (09:29→17:09)
[2017-11-13] MEDS ORDERED: Insulin LISPRO* 1 UNITS UNIT SUBCUT ONE (11:35)
[2017-11-13] MEDS: Gabapentin CAP(*) 400 MG PO SCH (13:40)
[2017-11-13] MEDS ORDERED: Ibuprofen TAB* 600 MG ONE (16:43)
[2017-11-13] MEDS: Ibuprofen TAB* 600 MG PO PRN ×2 (17:04→21:47)
[2017-11-13] MEDS: Lurasidone(*) 80 MG TAB PO SCH (17:11)
[2017-11-13] MEDS: Atorvastatin* 40 MG TAB PO SCH (21:38)
[2017-11-13] MEDS: Lidocaine Patch REMOVE* 1 NOTE MISC PATCH OFF SCH (21:39)
[2017-11-13] MEDS: Nicotine Patch Removal NOTE FOLLOW UP SCH (21:40)
[2017-11-14] MEDS: Omeprazole CAP* 20 MG PO SCH (07:25)
[2017-11-14] MEDS: Levothyroxine TAB* 100 MCG TAB PO SCH (07:25)
[2017-11-14] MEDS: Levothyroxine TAB* 50 MCG TAB PO SCH (07:26)
[2017-11-14] MEDS: Insulin GLARGINE(*) 1 UNITS UNIT SUBCUT SCH ×2 (08:26→21:04)
[2017-11-14] MEDS: Insulin LISPRO* 1 UNITS UNIT SUBCUT SCH ×3 (08:26→16:55)
[2017-11-14] MEDS: Vitamin THERAPEUTIC TAB PO SCH (08:33)
[2017-11-14] MEDS: lamoTRIgine TAB(*) 100 MG PO SCH ×2 (08:33→21:02)
[2017-11-14] MEDS: metFORMIN* 500 MG TAB PO SCH ×2 (08:34→21:03)
[2017-11-14] MEDS: OLANzapine TAB* 5 MG PO SCH (08:34)
[2017-11-14] MEDS: DULoxetine DR CAP* 60 MG CAP.DR PO SCH (08:34)
[2017-11-14] MEDS: Losartan TAB* 25 MG PO SCH (08:34)
[2017-11-14] MEDS: CMC: SitaGLIPtin (NF) 25 MG TAB PO SCH ×2 (08:34→21:03)
[2017-11-14] MEDS: Nicotine PATCH 14 MG/24 HR* PATCH TRANSDERM SCH (08:35)
[2017-11-14] MEDS: Gabapentin CAP(*) 300 MG PO SCH ×3 (08:35→21:01)
[2017-11-14] MEDS: Ibuprofen TAB* 600 MG PO PRN ×2 (08:37→14:26)
[2017-11-14] MEDS: Nicotine GUM* 2 MG PO PRN ×2 (08:38→14:53)
[2017-11-14] MEDS: Lidocaine PATCH 5%* 1 PATCH TRANSDERM SCH (08:38)
[2017-11-14] MEDS: Acetaminophen TAB* 325 MG PO PRN (12:05)
--- NOTE | 2017-11-14 14:52 | RAD ---
HISTORY: Pain, decreased range of motion COMPARISONS: October 10, 2012 VIEWS: 4, Frontal internal rotation, external rotation, outlet, and axillary views of the right shoulder FINDINGS: BONE DENSITY: Normal. BONES: There is no displaced fracture. 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 ALIGNMENT: There is no dislocation. SOFT TISSUES: Again noted is soft tissue calcification along the greater tuberosity of the right shoulder. OTHER FINDINGS: None. IMPRESSION: STABLE SOFT TISSUE CALCIFICATIONS SUGGESTIVE OF A CALCIFIC TENDINOPATHY.
[2017-11-14] MEDS: diPHENhydraMINE PO* 25 MG PO PRN (14:54)
--- NOTE | 2017-11-14 15:24 | PN ---
Subjective - Subjective Service Type: [id number] Hosp care 15 min low complexity Subjective: Patient reports she injured her right shoulder during ROM exercises. She agreed to Xray which rules out new findings. Encouraged to utilize warm packs and ibuprofen. Patient notified of suggestion for longer term hospitalization in light of recent severe attempt and stressor of marriage pending dissolution. She agrees and called [facility] to give clearance. Objective - Appearance Appearance: Obese Dysmorphic Features: Yes Hygiene: Mal-odorous Grooming: Disheveled - Behavior Psychomotor Activities: Normal Exhibits Abnormal Movement: No - Attitude and Relatedness Attitude and Relatedness: Child Like Eye Contact: Good - Speech Quality: Unpressured Latencies: Normal Quantity: Appropriate - Mood Patient's Decription of Mood: "Anxious" - Affect Observed Affect: Depressed Affect Consistent with: Dysphoria - Thought Process Patient's Thought Process: Circumstantial, Impoverished Thought Content: Yes Passive Wish, No Suicidal Planning, No Homicidal Ideation, No Paranoid Ideation - Sensorium Experiencing Hallucinations: No, Sensorium is Clear Type of Hallucinations: Visual: Yes, Auditory: Yes, Command: Yes - Level of Consciousness Level of Consciousness: Alert Orientation: Yes Intact, Yes Orientated to Time, Yes Orientated to Place, Yes Orientated to Person - Impulse Control Impulse Control: Poor - Insight and Judgement Insight and Judgement: Impaired - Group Participation Particating in Group Activities: No - Medication Management Medication Management Adherence: Yes Assessment - Assessment Merits Inpatient Hospitalization: For Immediate Safety, For Stabilization, To Initiate Treatment Inpatient DSM-V Dx: F43.10 Clinical Impression: 52yo white female with history of multiple psychiatric admissions. She became unresponsive and her phoned EMS. Patient was monitored on ICU for intentional overdose attempt, likely on opioid pain medication. She transferred to [facility] on 11/04/17. She is undergoing changes to decrease polypharmacy and merits hospitalization for immediate safety. Plan - Plan Treatment Plan: Name: CECILIO ALFARO Birthdate: 1965 [id number] continue acute intensive psychiatric treatment. change legal status to 2PC. continue to attempt to decrease polypharmacy. medication changes: decrease gabapentin to 400mg TID. continue diphenhydramine prn for anxiety per patient request. continue trazodone, lidocaine patch, nicotine patch and nicotine gum. continue to refrain from controlled substances due to risk for overdose. [facility] of outpatient treatment. Continued Medication Management: Different Medication Medications: Current Medications Acetaminophen (Tylenol Tab*) 650 mg PO Q4H PRN PRN Reason: for pain; or Temp >101 F Last Admin: 11/14/17 12:05 Dose: 650 mg Al Hydrox/Mg Hydrox/Simethicone (Maalox Plus*) 30 ml PO Q4H PRN PRN Reason: INDIGESTION Last Admin: 11/06/17 20:56 Dose: 30 ml Albuterol (Ventolin Hfa Inhaler*) 1 puff INH Q6H PRN PRN Reason: wheeze Atorvastatin Calcium (Lipitor*) 40 mg PO 2100 [facility] Last Admin: 11/13/17 21:38 Dose: 40 mg Diphenhydramine HCl (Benadryl Po*) 25 mg PO Q4H PRN PRN Reason: ANXIETY Last Admin: 11/14/17 14:54 Dose: 25 mg Duloxetine HCl (Cymbalta Cap*) 60 mg PO DAILY [facility] Last Admin: 11/14/17 08:34 Dose: 60 mg Gabapentin (Neurontin Cap(*)) 600 mg PO TID [facility] Last Admin: 11/14/17 14:26 Dose: 600 mg Ibuprofen (Motrin Tab*) 600 mg PO Q4H PRN PRN Reason: PAIN Last Admin: 11/14/17 14:26 Dose: 600 mg Insulin Glargine (Lantus(*)) 70 units SUBCUT 0900,2100 [facility] Last Admin: 11/14/17 08:26 Dose: 70 units Insulin Human Lispro (Humalog*) 15 units SUBCUT TID WITH MEALS [facility] Last Admin: 11/14/17 12:05 Dose: 15 units Lamotrigine (Lamictal Tab(*)) 150 mg PO BID [facility] Last Admin: 11/14/17 08:33 Dose: 150 mg Levothyroxine Sodium (Synthroid Tab*) 200 mcg PO DAILY@0600 [facility] Last Admin: 11/14/17 07:25 Dose: 200 mcg Levothyroxine Sodium (Synthroid Tab*) 50 mcg PO DAILY@0600 [facility] Last Admin: 11/14/17 07:26 Dose: 50 mcg Lidocaine (Lidoderm 5% Patch*) 1 patch TRANSDERM 0900 [facility] Last Admin: 11/14/17 08:38 Dose: 1 patch Losartan Potassium (Cozaar Tab*) 25 mg PO DAILY [facility] Last Admin: 11/14/17 08:34 Dose: 25 mg Lurasidone HCl (Latuda) 80 mg PO QPM [facility] Last Admin: 11/13/17 17:11 Dose: 80 mg Metformin HCl (Glucophage*) 500 mg PO BID [facility] Last Admin: 11/14/17 08:34 Dose: 500 mg Multivitamins (Theragran Tab*) 1 tab PO DAILY [facility] Last Admin: 11/14/17 08:33 Dose: 1 tab Nicotine (Nicotine Patch 14 Mg/24 Hr*) 1 patch TRANSDERM DAILY [facility] Last Admin: 11/14/17 08:35 Dose: 1 patch Nicotine Polacrilex (Nicotine Gum*) 2 mg PO Q2H PRN PRN Reason: CRAVING Last Admin: 11/14/17 14:53 Dose: 2 mg Olanzapine (Zyprexa Tab*) 5 mg PO DAILY [facility] Last Admin: 11/14/17 08:34 Dose: 5 mg Omeprazole (Prilosec Cap*) 20 mg PO DAILY@0730 [facility] Last Admin: 11/14/17 07:25 Dose: 20 mg Pharmacy Profile Note (Lidocaine Patch Remove*) 1 note PATCH OFF 2099 [facility] Last Admin: 11/13/17 21:39 Dose: 1 note Pharmacy Profile Note (Nicotine Patch Removal Note*) 1 note FOLLOW UP 2099 [facility] Last Admin: 11/13/17 21:40 Dose: 1 note Sitagliptin Phosphate (Januvia (Nf)) 50 mg PO BID [facility] Last Admin: 11/14/17 08:34 Dose: 50 mg Trazodone HCl (Desyrel Tab*) 100 mg PO BEDTIME PRN PRN Reason: INSOMNIA Last Admin: 11/11/17 20:28 Dose: 100 mg - Discharge Plan Discharge Plan: Consider Longer Term Tx
[2017-11-14] MEDS: Lurasidone(*) 80 MG TAB PO SCH (18:08)
[2017-11-14] MEDS: Atorvastatin* 40 MG TAB PO SCH (21:02)
[2017-11-14] MEDS: Lidocaine Patch REMOVE* 1 NOTE MISC PATCH OFF SCH (21:05)
[2017-11-14] MEDS: Nicotine Patch Removal NOTE FOLLOW UP SCH (21:06)
[2017-11-15] MEDS: Levothyroxine TAB* 50 MCG TAB PO SCH (07:33)
[2017-11-15] MEDS: Levothyroxine TAB* 100 MCG TAB PO SCH (07:33)
[2017-11-15] MEDS: Omeprazole CAP* 20 MG PO SCH (07:33)
[2017-11-15] MEDS: metFORMIN* 500 MG TAB PO SCH ×2 (07:42→20:38)
[2017-11-15] MEDS: OLANzapine TAB* 5 MG PO SCH (07:42)
[2017-11-15] MEDS: Vitamin THERAPEUTIC TAB PO SCH (07:43)
[2017-11-15] MEDS: DULoxetine DR CAP* 60 MG CAP.DR PO SCH (07:43)
[2017-11-15] MEDS: Gabapentin CAP(*) 300 MG PO SCH ×3 (07:43→20:38)
[2017-11-15] MEDS: Losartan TAB* 25 MG PO SCH (07:43)
[2017-11-15] MEDS: Ibuprofen TAB* 600 MG PO PRN ×3 (07:43→19:02)
[2017-11-15] MEDS: lamoTRIgine TAB(*) 100 MG PO SCH ×2 (07:44→20:39)
[2017-11-15] MEDS: CMC: SitaGLIPtin (NF) 25 MG TAB PO SCH ×2 (07:45→20:38)
[2017-11-15] MEDS: Nicotine GUM* 2 MG PO PRN ×5 (07:46→21:48)
[2017-11-15] MEDS: Insulin LISPRO* 1 UNITS UNIT SUBCUT SCH ×3 (07:46→17:19)
[2017-11-15] MEDS: Insulin GLARGINE(*) 1 UNITS UNIT SUBCUT SCH ×2 (07:47→20:59)
[2017-11-15] MEDS: Nicotine PATCH 14 MG/24 HR* PATCH TRANSDERM SCH (07:48)
[2017-11-15] MEDS: Lidocaine PATCH 5%* 1 PATCH TRANSDERM SCH (07:50)
[2017-11-15] MEDS: Loperamide CAP* 2 MG PO PRN ×2 (10:05→13:13)
[2017-11-15] MEDS: diPHENhydraMINE PO* 25 MG PO PRN (10:07)
[2017-11-15] MEDS: Acetaminophen TAB* 325 MG PO PRN ×2 (13:12→19:02)
[2017-11-15] MEDS: Lurasidone(*) 80 MG TAB PO SCH (19:03)
[2017-11-15] MEDS: Atorvastatin* 40 MG TAB PO SCH (20:39)
[2017-11-15] MEDS: Nicotine Patch Removal NOTE FOLLOW UP SCH (21:49)
[2017-11-15] MEDS: Lidocaine Patch REMOVE* 1 NOTE MISC PATCH OFF SCH (21:50)
[2017-11-16] MEDS: Vitamin THERAPEUTIC TAB PO SCH (08:27)
[2017-11-16] MEDS: DULoxetine DR CAP* 60 MG CAP.DR PO SCH (08:27)
[2017-11-16] MEDS: OLANzapine TAB* 5 MG PO SCH (08:28)
[2017-11-16] MEDS: Losartan TAB* 25 MG PO SCH (08:28)
[2017-11-16] MEDS: CMC: SitaGLIPtin (NF) 25 MG TAB PO SCH ×2 (08:28→20:17)
[2017-11-16] MEDS: Levothyroxine TAB* 100 MCG TAB PO SCH (08:28)
[2017-11-16] MEDS: metFORMIN* 500 MG TAB PO SCH ×2 (08:28→20:18)
[2017-11-16] MEDS: Omeprazole CAP* 20 MG PO SCH (08:28)
[2017-11-16] MEDS: Levothyroxine TAB* 50 MCG TAB PO SCH (08:28)
[2017-11-16] MEDS: Gabapentin CAP(*) 300 MG PO SCH ×3 (08:29→20:16)
[2017-11-16] MEDS: lamoTRIgine TAB(*) 100 MG PO SCH ×2 (08:29→20:17)
[2017-11-16] MEDS: Insulin GLARGINE(*) 1 UNITS UNIT SUBCUT SCH ×2 (08:30→20:15)
[2017-11-16] MEDS: Insulin LISPRO* 1 UNITS UNIT SUBCUT SCH ×3 (08:31→16:51)
[2017-11-16] MEDS: Lidocaine PATCH 5%* 1 PATCH TRANSDERM SCH (08:32)
[2017-11-16] MEDS: Nicotine PATCH 14 MG/24 HR* PATCH TRANSDERM SCH (08:32)
[2017-11-16] MEDS: diPHENhydraMINE PO* 25 MG PO PRN ×3 (08:33→20:19)
[2017-11-16] MEDS: Nicotine GUM* 2 MG PO PRN ×3 (08:40→18:07)
--- NOTE | 2017-11-16 11:14 | PN ---
[facility]: Group Therapy Note - Service Type Service Type: [id number] Group Psychotherapy - Cognitive Behavioral Group Therapy ( CBT):Patient was attentive and participatory in CBT programming this morning, and remained in good behavioral control. Patient expressed positive insights regarding relevant treatment interventions and goals.
[2017-11-16] MEDS: Acetaminophen TAB* 325 MG PO PRN ×2 (11:16→18:07)
[2017-11-16] MEDS: Ibuprofen TAB* 600 MG PO PRN ×2 (11:16→18:08)
--- NOTE | 2017-11-16 16:15 | PN ---
Subjective - Subjective Date of Service: 11/16/17 Service Type: [id number] Hosp care 15 min low complexity Subjective: Taryn reports being shaky and bouncing her leg a lot. She also reports that her mother has found her an apartment that she would like to move into after discharge. When challenged that she would be going to [place] rather than being discharged, she countered that "this time I've learned my lesson." Objective - Appearance Appearance: Obese Dysmorphic Features: No Hygiene: Dirty Grooming: Disheveled - Behavior Psychomotor Activities: Abnormal-Decreased Exhibits Abnormal Movement: No - Attitude and Relatedness Attitude and Relatedness: Needy Eye Contact: Good - Speech Quality: Unpressured Latencies: Normal Quantity: Appropriate - Mood Patient's Decription of Mood: "Anxious" - Affect Observed Affect: Non-labile Affect Consistent with: Dysphoria - Thought Process Patient's Thought Process: Coherent Thought Content: No Passive Wish, No Suicidal Planning, No Homicidal Ideation, No Paranoid Ideation - Sensorium Experiencing Hallucinations: No, Sensorium is Clear Type of Hallucinations: Visual: No, Auditory: No, Command: No - Level of Consciousness Level of Consciousness: Alert Orientation: Yes Intact, Yes Orientated to Time, Yes Orientated to Place, Yes Orientated to Person - Impulse Control Impulse Control: Tenuous - Insight and Judgement Insight and Judgement: Poor - Group Participation Particating in Group Activities: Yes - Medication Management Medication Management Adherence: Yes Assessment - Assessment Merits Inpatient Hospitalization: For Immediate Safety Inpatient DSM-V Dx: F43.10 Clinical Impression: Taryn is a 52 y.o. woman who is chronically suicidal and shows no insight into the dangerousness, inappropriateness, or permanence of implications of her behaviors. She is unable to rely on herself for self-soothing or for impulse control. Plan - Plan Treatment Plan: Name: TARYN ALFARO Birthdate: 1965 [id number] Medications: Current Medications Acetaminophen (Tylenol Tab*) 650 mg PO Q4H PRN PRN Reason: for pain; or Temp >101 F Last Admin: 11/16/17 11:16 Dose: 650 mg Al Hydrox/Mg Hydrox/Simethicone (Maalox Plus*) 30 ml PO Q4H PRN PRN Reason: INDIGESTION Last Admin: 11/06/17 20:56 Dose: 30 ml Albuterol (Ventolin Hfa Inhaler*) 1 puff INH Q6H PRN PRN Reason: wheeze Atorvastatin Calcium (Lipitor*) 40 mg PO 2100 [facility] Last Admin: 11/15/17 20:39 Dose: 40 mg Diphenhydramine HCl (Benadryl Po*) 25 mg PO Q4H PRN PRN Reason: ANXIETY Last Admin: 11/16/17 14:08 Dose: 25 mg Duloxetine HCl (Cymbalta Cap*) 60 mg PO DAILY [facility] Last Admin: 11/16/17 08:27 Dose: 60 mg Gabapentin (Neurontin Cap(*)) 600 mg PO TID [facility] Last Admin: 11/16/17 14:08 Dose: 600 mg Ibuprofen (Motrin Tab*) 600 mg PO Q4H PRN PRN Reason: PAIN Last Admin: 11/16/17 11:16 Dose: 600 mg Insulin Glargine (Lantus(*)) 70 units SUBCUT 0900,2100 [facility] Last Admin: 11/16/17 08:30 Dose: 70 units Insulin Human Lispro (Humalog*) 15 units SUBCUT TID WITH MEALS [facility] Last Admin: 11/16/17 12:06 Dose: 15 units Lamotrigine (Lamictal Tab(*)) 150 mg PO BID [facility] Last Admin: 11/16/17 08:29 Dose: 150 mg Levothyroxine Sodium (Synthroid Tab*) 200 mcg PO DAILY@0600 [facility] Last Admin: 11/16/17 08:28 Dose: 200 mcg Levothyroxine Sodium (Synthroid Tab*) 50 mcg PO DAILY@0600 [facility] Last Admin: 11/16/17 08:28 Dose: 50 mcg Lidocaine (Lidoderm 5% Patch*) 1 patch TRANSDERM 0900 [facility] Last Admin: 11/16/17 08:32 Dose: 1 patch Loperamide HCl (Imodium Cap*) 0 mg PO .PER INSTRUCTIONS PRN; Protocol PRN Reason: LOOSE STOOL Last Admin: 11/15/17 13:13 Dose: 2 mg Losartan Potassium (Cozaar Tab*) 25 mg PO DAILY [facility] Last Admin: 11/16/17 08:28 Dose: 25 mg Lurasidone HCl (Latuda) 80 mg PO QPM [facility] Last Admin: 11/15/17 19:03 Dose: 80 mg Metformin HCl (Glucophage*) 500 mg PO BID [facility] Last Admin: 11/16/17 08:28 Dose: 500 mg Multivitamins (Theragran Tab*) 1 tab PO DAILY [facility] Last Admin: 11/16/17 08:27 Dose: 1 tab Nicotine (Nicotine Patch 14 Mg/24 Hr*) 1 patch TRANSDERM DAILY [facility] Last Admin: 11/16/17 08:32 Dose: 1 patch Nicotine Polacrilex (Nicotine Gum*) 2 mg PO Q2H PRN PRN Reason: CRAVING Last Admin: 11/16/17 14:09 Dose: 2 mg Olanzapine (Zyprexa Tab*) 5 mg PO DAILY [facility] Last Admin: 11/16/17 08:28 Dose: 5 mg Omeprazole (Prilosec Cap*) 20 mg PO DAILY@0730 [facility] Last Admin: 11/16/17 08:28 Dose: 20 mg Pharmacy Profile Note (Lidocaine Patch Remove*) 1 note PATCH OFF 2100 [facility] Last Admin: 11/15/17 21:50 Dose: Not Given Pharmacy Profile Note (Nicotine Patch Removal Note*) 1 note FOLLOW UP 2099 [facility] Last Admin: 11/15/17 21:49 Dose: 1 note Sitagliptin Phosphate (Januvia (Nf)) 50 mg PO BID [facility] Last Admin: 11/16/17 08:28 Dose: 50 mg Trazodone HCl (Desyrel Tab*) 100 mg PO BEDTIME PRN PRN Reason: INSOMNIA Last Admin: 11/11/17 20:28 Dose: 100 mg - Discharge Plan Discharge Plan: Consider Longer Term Tx
[2017-11-16] MEDS: Lurasidone(*) 80 MG TAB PO SCH (16:53)
[2017-11-16] MEDS: Atorvastatin* 40 MG TAB PO SCH (20:16)
[2017-11-16] MEDS: traZODone TAB* 100 MG PO PRN (20:19)
[2017-11-16] MEDS: Lidocaine Patch REMOVE* 1 NOTE MISC PATCH OFF SCH (20:21)
[2017-11-16] MEDS: Nicotine Patch Removal NOTE FOLLOW UP SCH (20:21)
[2017-11-17] MEDS: Lidocaine PATCH 5%* 1 PATCH TRANSDERM SCH (08:05)
[2017-11-17] MEDS: Nicotine PATCH 14 MG/24 HR* PATCH TRANSDERM SCH (08:06)
[2017-11-17] MEDS: Levothyroxine TAB* 50 MCG TAB PO SCH (08:07)
[2017-11-17] MEDS: DULoxetine DR CAP* 60 MG CAP.DR PO SCH (08:07)
[2017-11-17] MEDS: Levothyroxine TAB* 100 MCG TAB PO SCH (08:07)
[2017-11-17] MEDS: Vitamin THERAPEUTIC TAB PO SCH (08:07)
[2017-11-17] MEDS: CMC: SitaGLIPtin (NF) 25 MG TAB PO SCH ×2 (08:07→21:21)
[2017-11-17] MEDS: lamoTRIgine TAB(*) 100 MG PO SCH ×2 (08:08→21:21)
[2017-11-17] MEDS: Gabapentin CAP(*) 300 MG PO SCH ×2 (08:09→13:58)
[2017-11-17] MEDS: OLANzapine TAB* 5 MG PO SCH (08:10)
[2017-11-17] MEDS: metFORMIN* 500 MG TAB PO SCH ×2 (08:10→21:21)
[2017-11-17] MEDS: Omeprazole CAP* 20 MG PO SCH (08:10)
[2017-11-17] MEDS: Losartan TAB* 25 MG PO SCH (08:10)
[2017-11-17] MEDS: Insulin LISPRO* 1 UNITS UNIT SUBCUT SCH ×3 (08:13→16:52)
[2017-11-17] MEDS: Insulin GLARGINE(*) 1 UNITS UNIT SUBCUT SCH ×2 (08:14→21:37)
[2017-11-17] MEDS: Ibuprofen TAB* 600 MG PO PRN (08:59)
[2017-11-17] MEDS: Nicotine GUM* 2 MG PO PRN ×3 (09:00→15:37)
[2017-11-17] MEDS: diPHENhydraMINE PO* 25 MG PO PRN (11:01)
--- NOTE | 2017-11-17 11:54 | PN ---
Subjective - Subjective Service Type: 89850 Hosp care 25 min moderate complexity Subjective: Patient met with journalists and other writers and Tracey Pradhan LMSW. Patient states "I don't want the meeting" in regards to administrative hearing for retention. She states "I take responsibility" for mental health treatment. She is notified of her placement on wait list for local [facility]. She states she is more nervous and claustrophobic due to construction on unit. She requests hydroxyzine in place of diphenhydramine. Patient instructed to call [facility], which she did directly after meeting with providers. Objective - Appearance Appearance: Obese Dysmorphic Features: Yes Hygiene: Normal Grooming: Disheveled - Behavior Psychomotor Activities: Normal Exhibits Abnormal Movement: No - Attitude and Relatedness Attitude and Relatedness: Child Like Eye Contact: Good - Speech Quality: Unpressured Latencies: Normal Quantity: Appropriate - Mood Patient's Decription of Mood: "nervous" - Affect Observed Affect: Depressed Affect Consistent with: Dysphoria - Thought Process Patient's Thought Process: Circumstantial Thought Content: No Passive Wish, No Suicidal Planning, No Homicidal Ideation, No Paranoid Ideation - Sensorium Experiencing Hallucinations: No, Sensorium is Clear Type of Hallucinations: Visual: No, Auditory: No, Command: No - Level of Consciousness Level of Consciousness: Alert Orientation: Yes Intact, Yes Orientated to Time, Yes Orientated to Place, Yes Orientated to Person - Impulse Control Impulse Control: Impaired - Insight and Judgement Insight and Judgement: Impaired - Group Participation Particating in Group Activities: No - Medication Management Medication Management Adherence: Yes Assessment - Assessment Merits Inpatient Hospitalization: For Immediate Safety, For Stabilization, Pending Safe DC Plan Inpatient DSM-V Dx: F43.10 Clinical Impression: 52yo white female with history of multiple psychiatric admissions. She became unresponsive and her phoned EMS. Patient was monitored on ICU for intentional overdose attempt, likely on opioid pain medication. She transferred to [facility] on 11/04/[facility]. She is undergoing changes to decrease polypharmacy and merits hospitalization for immediate safety. Plan - Plan Treatment Plan: Name: CECILIO ALFARO Birthdate: 1965 [id number] continue acute intensive psychiatric treatment. change legal status to 2PC. continue to attempt to decrease polypharmacy. medication changes: decrease gabapentin to 400mg TID. DC diphenhydramine and add prn hydroxyzine per patient request. continue trazodone, lidocaine patch, nicotine patch and nicotine gum. continue to refrain from controlled substances due to risk for overdose. referral to [facility] due to failure of outpatient treatment. Continued Medication Management: Different Medication Medications: Current Medications Acetaminophen (Tylenol Tab*) 650 mg PO Q4H PRN PRN Reason: for pain; or Temp >101 F Last Admin: 11/16/17 18:07 Dose: 650 mg Al Hydrox/Mg Hydrox/Simethicone (Maalox Plus*) 30 ml PO Q4H PRN PRN Reason: INDIGESTION Last Admin: 11/06/17 20:56 Dose: 30 ml Albuterol (Ventolin Hfa Inhaler*) 1 puff INH Q6H PRN PRN Reason: wheeze Atorvastatin Calcium (Lipitor*) 40 mg PO 2100 [facility] Last Admin: 11/16/17 20:16 Dose: 40 mg Duloxetine HCl (Cymbalta Cap*) 60 mg PO DAILY [facility] Last Admin: 11/17/17 08:07 Dose: 60 mg Gabapentin (Neurontin Cap(*)) 400 mg PO TID [facility] Hydroxyzine HCl (Atarax Tab*) 50 mg PO Q4H PRN PRN Reason: ANXIETY Ibuprofen (Motrin Tab*) 600 mg PO Q4H PRN PRN Reason: PAIN Last Admin: 11/17/17 08:59 Dose: 600 mg Insulin Glargine (Lantus(*)) 70 units SUBCUT 0900,2100 [facility] Last Admin: 11/17/17 08:14 Dose: 70 units Insulin Human Lispro (Humalog*) 15 units SUBCUT TID WITH MEALS [facility] Last Admin: 11/17/17 08:13 Dose: 15 units Lamotrigine (Lamictal Tab(*)) 150 mg PO BID [facility] Last Admin: 11/17/17 08:08 Dose: 150 mg Levothyroxine Sodium (Synthroid Tab*) 200 mcg PO DAILY@0600 [facility] Last Admin: 11/17/17 08:07 Dose: 200 mcg Levothyroxine Sodium (Synthroid Tab*) 50 mcg PO DAILY@0600 [facility] Last Admin: 11/17/17 08:07 Dose: 50 mcg Lidocaine (Lidoderm 5% Patch*) 1 patch TRANSDERM 0900 [facility] Last Admin: 11/17/17 08:05 Dose: 1 patch Loperamide HCl (Imodium Cap*) 0 mg PO .PER INSTRUCTIONS PRN; Protocol PRN Reason: LOOSE STOOL Last Admin: 11/15/17 13:13 Dose: 2 mg Losartan Potassium (Cozaar Tab*) 25 mg PO DAILY [facility] Last Admin: 11/17/17 08:10 Dose: 25 mg Lurasidone HCl (Latuda) 80 mg PO QPM [facility] Last Admin: 11/16/17 16:53 Dose: 80 mg Metformin HCl (Glucophage*) 500 mg PO BID [facility] Last Admin: 11/17/17 08:10 Dose: 500 mg Multivitamins (Theragran Tab*) 1 tab PO DAILY [facility] Last Admin: 11/17/17 08:07 Dose: 1 tab Nicotine (Nicotine Patch 14 Mg/24 Hr*) 1 patch TRANSDERM DAILY [facility] Last Admin: 11/17/17 08:06 Dose: 1 patch Nicotine Polacrilex (Nicotine Gum*) 2 mg PO Q2H PRN PRN Reason: CRAVING Last Admin: 11/17/17 11:01 Dose: 2 mg Olanzapine (Zyprexa Tab*) 5 mg PO DAILY [facility] Last Admin: 11/17/17 08:10 Dose: 5 mg Omeprazole (Prilosec Cap*) 20 mg PO DAILY@0730 [facility] Last Admin: 11/17/17 08:10 Dose: 20 mg Pharmacy Profile Note (Lidocaine Patch Remove*) 1 note PATCH OFF 2099 [facility] Last Admin: 11/16/17 20:21 Dose: 1 note Pharmacy Profile Note (Nicotine Patch Removal Note*) 1 note FOLLOW UP 2099 [facility] Last Admin: 11/16/17 20:21 Dose: 1 note Sitagliptin Phosphate (Januvia (Nf)) 50 mg PO BID [facility] Last Admin: 11/17/17 08:07 Dose: 50 mg Trazodone HCl (Desyrel Tab*) 100 mg PO BEDTIME PRN PRN Reason: INSOMNIA Last Admin: 11/16/17 20:19 Dose: 100 mg - Discharge Plan Discharge Plan: Consider Longer Term Tx
[2017-11-17] MEDS: hydrOXYzine HCL TAB* 50 MG PO PRN ×2 (12:22→18:12)
[2017-11-17] MEDS: Acetaminophen TAB* 325 MG PO PRN (15:38)
[2017-11-17] MEDS: Lurasidone(*) 80 MG TAB PO SCH (16:55)
[2017-11-17] MEDS: Atorvastatin* 40 MG TAB PO SCH (21:21)
[2017-11-17] MEDS ORDERED: Gabapentin CAP(*) 400 MG PO SCH (21:24)
[2017-11-17] MEDS: Gabapentin CAP(*) 400 MG PO SCH (21:28)
[2017-11-17] MEDS: Nystatin TOP POWDER* 15 GM BTL TOPICAL SCH (21:38)
[2017-11-17] MEDS: Lidocaine Patch REMOVE* 1 NOTE MISC PATCH OFF SCH (21:38)
[2017-11-17] MEDS: Nicotine Patch Removal NOTE FOLLOW UP SCH (21:38)
[2017-11-18] MEDS: Gabapentin CAP(*) 300 MG PO SCH (00:28)
[2017-11-18] MEDS: Insulin GLARGINE(*) 1 UNITS UNIT SUBCUT SCH (07:51)
[2017-11-18] MEDS: Insulin LISPRO* 1 UNITS UNIT SUBCUT SCH (07:52)
[2017-11-18] MEDS: Levothyroxine TAB* 100 MCG TAB PO SCH (07:53)
[2017-11-18] MEDS: Omeprazole CAP* 20 MG PO SCH (07:54)
[2017-11-18] MEDS: DULoxetine DR CAP* 60 MG CAP.DR PO SCH (07:54)
[2017-11-18] MEDS: Gabapentin CAP(*) 400 MG PO SCH (07:54)
[2017-11-18] MEDS: Levothyroxine TAB* 50 MCG TAB PO SCH (07:54)
[2017-11-18] MEDS: lamoTRIgine TAB(*) 100 MG PO SCH (07:55)
[2017-11-18 07:56] VITALS: BP 132/73
[2017-11-18] MEDS: OLANzapine TAB* 5 MG PO SCH (07:56)
[2017-11-18] MEDS: Vitamin THERAPEUTIC TAB PO SCH (07:56)
[2017-11-18] MEDS: Losartan TAB* 25 MG PO SCH (07:56)
[2017-11-18] MEDS: metFORMIN* 500 MG TAB PO SCH (07:56)
[2017-11-18] MEDS: Lidocaine PATCH 5%* 1 PATCH TRANSDERM SCH (07:57)
[2017-11-18] MEDS: Nicotine PATCH 14 MG/24 HR* PATCH TRANSDERM SCH (08:03)
[2017-11-18] MEDS: Ibuprofen TAB* 600 MG PO PRN (08:05)
[2017-11-18] MEDS: hydrOXYzine HCL TAB* 50 MG PO PRN (08:05)
[2017-11-18] MEDS: CMC: SitaGLIPtin (NF) 25 MG TAB PO SCH (08:07)
[2017-11-18] MEDS: Nystatin TOP POWDER* 15 GM BTL TOPICAL SCH (08:12)
[2017-11-18] MEDS: Acetaminophen TAB* 325 MG PO PRN (09:31)
[2017-11-18] MEDS: Nicotine GUM* 2 MG PO PRN (09:32)
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
== END 2017-11-18 11:15 | disposition short-term general hospital (02) | DRG 882 ==
LOC: BSU 15:32
PROVIDERS: ADMIT Psychiatry & Neurology Psychiatry; ATTEND Psychiatry & Neurology Psychiatry
PROC: GZHZZZZ Group Psychotherapy (ICD-10-PCS; principal; 2017-11-10)
DX: F43.10 Post-traumatic stress disorder, unspecified (principal); K86.1 Other chronic pancreatitis; F39 Unspecified mood [affective] disorder; F60.3 Borderline personality disorder; T40.602A Poisoning by unspecified narcotics, intentional self-harm, initial encounter; E66.01 Morbid (severe) obesity due to excess calories; G89.29 Other chronic pain; M54.9 Dorsalgia, unspecified; E03.9 Hypothyroidism, unspecified; K21.9 Gastro-esophageal reflux disease without esophagitis; M47.9 Spondylosis, unspecified; K58.9 Irritable bowel syndrome, unspecified; Z88.0 Allergy status to penicillin; Z88.2 Allergy status to sulfonamides; Y92.009 Unspecified place in unspecified non-institutional (private) residence as the place of occurrence of the external cause; Z68.39 Body mass index [BMI] 39.0-39.9, adult; Z88.8 Allergy status to other drugs, medicaments and biological substances; Z88.6 Allergy status to analgesic agent; Z88.1 Allergy status to other antibiotic agents; Z91.040 Latex allergy status
CPT/HCPCS: 36415; 80061; 83036; 87086; 90853; 99222; 99231; 99232; 99233; 99238; A9270-GY; G8978-GP-CH; G8979-GP-CH; G8980-GP-CH; G8987-GO-CI; G8988-GO-CI; G8989-GO-CI

== ENCOUNTER 2018-05-10 17:54 | Emergency (ER) | payer MEDICARE, MEDICAID ==
--- OUTSIDE RECORDS SUMMARY | 2018-05-10 18:51 | XMS REPORT ---
:1965 External Reference #:[id number] Author Organization [facility] Address [address] [place] [address] Phone [phone] Care Team Providers Name Role Phone Chapo Aguila MD Primary Care Physician Unavailable Payers Type Date Identification Numbers Payment Provider Subscriber Medicare Primary Effective: Policy Number: Medicare Cecilio Alfaro 1990 [id number] PayID: [id number] [address] [place] [address] [facility] Policy Number: [id number] Medicaid Cecilio Alfaro Group Name: 1 [address] PayID: [id number] [place] [address] Problems Date Description Provider Status Onset: 06/13/2017 Type 2 diabetes mellitus Chapo Aguila M.D. Active Onset: 06/13/2017 Hypothyroidism Chapo Aguila M.D. Active Onset: 06/13/2017 Gastroesophageal reflux disease Chapo Aguila M.D. Active Onset: 06/13/2017 Mixed hyperlipidemia Chapo Aguila M.D. 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 Onset: 06/13/2017 Bipolar [...] History Type Date Description Comments Lives With Assisted living Occupation Unemployed Smoking Patient is a former smoker Smoking has been using nicotrol General Hx Text Allergies, Adverse Reactions, Alerts Date Description Reaction Status Severity Comments 05/10/2017 Latex Urticaria active 05/10/2017 Sulfa Antibiotics hives active 05/10/2017 Penicillins Urticaria active 05/10/2017 Nalbuphine active 05/10/2017 Perphenazine active 05/10/2017 Ciprofloxacin dizziness active 05/10/2017 Tramadol altered mental status active 05/10/2017 [place] active 05/08/2018 Lurasidone active Moderate Medications Medication Date Status Form Strength Qnty SIG Indications Ordering Provider Januvaura 05/08 Active Tablets 50mg 90tab one by mouth E11.65 s daily MD Alexandre Depend 05/08 Active Misc 120un use four R15.1 its times a day Antelmo Schroeder L/XL Exercise 05/08 Active Pt allowed to E11.65 engage in sofia Sch[place]eder at [place] facilities under direct supervision of staff Onetouch Ultra 09/09 Active Strips 100un test up to E11.9 [place] Blue its three times Kamille Denson, daily last M.D.,FACP visit:08/17/17 Onetouch 08/31 Active Misc 100un test blood E11.9 [place] Ultrasoft its 2-3 a day or Kamille Denson Lancets as needed MMarkel,FACP BD Pen 08/24 Active Misc 32G X 4 120un use tid daily Lawrence Needle/Suzanna/Ultr mm its Kamille Denson a Fine/32G X 4mm MMarkel,FACP Depend Pant 06/14 Active Misc 120un use 4 x a day Chapo Hernandez its or as needed Adelina Aguila Olanzapine 00/00 Active Tablets 5mg one tab daily Unknown /0000 daily Trazodone HCL 00/00 Active Tablets 100mg 14tab 1 tab at Sharmila /0000 s bedtime Adelina Garcia Ultra Active Kit w/Device check bs Unknown Mini /0000 twice daily Atorvastatin 00 Active Tablets 20mg take 1 tablet Unknown Calcium /0000 at bedtime Lamotrigine Active Tablets 100mg 1 by mouth Unknown / bid Levothyroxine Active Tablets 150mcg 1 by mouth Unknown Sodium /0000 every day Losartan Active Tablets 50mg 1 by mouth E11.65 Unknown Potassium /0000 every day Humalog Kwikpen Active Solution 100Unit/M 9ml 4-10 Units SQ E11.65 Rosa Pen-Injec L three times a Schroeder, day, at [place] mealtime, per sliding scale instructions Loratadine Active Capsules 10mg once a day for allergies as needed Duloxetine HCL Active Caps DR 20mg 1 by mouth Unknown Part every day with 60mg tab Duloxetine HCL Active Caps DR 60mg 1 by mouth Unknown Part every day with 20mg tab Naproxen Active Tablets 375mg twice a day Unknown with food Vitamin D3 Active Capsules 1000Unit 1 by mouth Unknown twice daily Gabapentin Active Capsules 400mg take one capsule by mouth 3 times a day Lantus Solostar Active Solution 100Unit/M 40 units Unknown / Pen-Injec L twice daily t Tresiba 10/13 Hx Solution 100Unit/M 15ml 100 [facility]11.65 [facility] Ayla cox M.D. 05/08 Losartan 10/13 Hx Tablets 25mg 30tab 1 by mouth E11.65 [place] Potassium s once a day Ayla Gallagher M.D. 05/08 Hydrocodone-Acet 10/10 Hx Tablets 5-325mg 20tab 1 tab every Chapo aminophen s 12h as needed Ayla Gallagher M.D. 05/08 Tresiba 09/19 Hx Solution 100Unit/M 15ml 60 units at E11.65 Chapo Flextouch Pen-Injec L bedtime Ayla cox M.D. 10/13 Onetouch Ultra 08/31 Hx Lancets 100un check bs Chapo its twice daily Ayla Gallagher M.D. 05/08 Onetouch Ultra 08/31 Hx Strips 100un test up to E11.9 [facility] its three times Kamille Denson, - daily last M.Kamille,[facility] 09/09 visit:08/17/17 Mucinex 08/28 Hx Tablets 600mg 20tab 1 po bid prn Lawrence ER 12HR s Elliott Ospina M.D.,[facility] 05/08 Doxycycline 08/28 Hx Capsules 100mg 13cap 1 by mouth Unknown Monohydrate s twice a day x - 7 days 09/04 Tresiba 08/26 Hx Solution 200Unit/M 18ml 30u SC in Am [facility] Pen-Injec L and 70u SC in Kamille Denson, - t PM MMarkel,[facility] 09/19 Azithromycin 08/26 Hx Tablets 250mg 2 tabs by mouth on day - 1; 1 tab by 08/31 mouth every day on days 2-5 Tramadol HCL 08/26 Hx Tablets 50mg 30tab 1 tab by Lawrence s mouth three Kamille Denson, - times a day Adelina,[facility] 09/28 Fluconazole 08/22 Hx Tablets 150mg 2tabs one by mouth may repeat in Kamille Denson, - 3 days as Adelina,[facility] 05/08 Lancets 28G 08/08 Hx Misc 28G 100un use with one its touch meter, Pachika - check Adelina prieto 08/31 Onetouch 08/08 Hx Strips 100un test twice [place] its daily and as Ayla coleman M.D. 08/31 Janumet 07/15 Hx Tablets 50-500mg 60tab 1 by mouth E11.9 s twice a day Ayla Gallagher M.D. 05/08 Glucocom Blood 07/03 Hx Kit W/Device 1unit one touch Erik Glucose s glucometer to Roni Walls - measure blood M.DJarred System 08/31 sugar Nicotrol 06/13 Hx Inhaler 10mg 168un use 4-5 times F17.210 its daily Ayla Gallagher M.D. 05/08 Clotrimazole 06/13 Hx Cream 1% 90gm apply twice B37.9 daily Ayla Gallagher M.D. 05/08 Acetaminophen-Co 05/26 Hx Tablets 300-30mg 20tab 1 tab by Chapo lizama #3 s mouth every Pachikara - 4-6 hours as Adelina 05/08 needed for pain Ibuprofen Hx Tablets 600mg as needed Home /0000 Paty - PHYSICAL LABORATORY ASSISTANT 05/08 Ondansetron Hx Tablets 8mg every 6-8 Home /0000 Dispers hours as Paty - needed PHYSICAL LABORATORY ASSISTANT 05/08 Pantoprazole Hx Tablets 40mg 30tab take 1 tablet [place] Sodium /0000 DR christiane by mouth once Gerryika - daily Adelina 05/08 Lamotrigine Hx Tablets 150mg take 1 tablet Unknown /0000 by mouth - twice a day 05/08 Sertraline HCL Hx Tablets 100mg Take 1+1/2 Unknown /0000 Tablets By - Mouth Once 05/08 Novolog Flexpen Hx Solution 100Unit/M Inject 15 Unknown /0000 Pen-Injec L Units Subq t Three Times A Day With Meals Cyclobenzaprine Hx Tablets 10mg as needed Unknown HCL /0000 - 09/28 Latuda Hx Tablets 80mg daily Unknown /0000 - 05/08 Levothyroxine Hx Tablets 50mcg 90tab 1 tab daily Chapo Sodium /0000 s in the empty Pachikara - stomach , M.DJarred 05/08 Levothyroxine Hx Tablets 200mcg 90tab 1 tab daily [place] Sodium /0000 s am in the Pachikara - empty stomach , M.D. 05/08 Naproxen Hx Tablets 500mg 60tab twice daily [place] /0000 s Ayla Gallagher M.D. 07/15 Lantus Solostar Hx Solution 100Unit/M 15ml 30 units SC [place] /0000 Pen-Injec L in Am, and 70 D. Janiya, - t units SC a hs M.DJarred,FACP 08/26 Atorvastatin Hx Tablets 40mg 90tab take one Chapo Calcium /0000 s tablet by Pachikara - mouth every , M.D. Pictonix Hx 40 mg daily Unknown /0000 Novalog Hx 10 units Unknown /0000 before meals - 05/08 Metformin HCL Hx Tablets 500mg 1 by mouth Unknown /0000 twice a day - 05/08 Medications Administered in Office Medication Date Status Form Strength Qnty SIG Indications Ordering Provider Depomedrol Administered Injection Naveed F 40MG 018 MD Venecia Immunizations CPT Code Status Date Vaccine Lot # [id number] Given 05/01/2018 Influenza Virus Vaccine, Quadrivalent, Split, Preservative Free Vital Signs Date Vital Result Comment 05/08/2018 Height 67 inches 5'7" Weight 256.00 lb Heart Rate 99 /min BP Systolic Sitting 130 mmHg BP Diastolic Sitting 82 mmHg Body Temperature 97.9 F O2 % BldC Oximetry 96 % BMI (Body Mass Index) 40.1 kg/m2 10/18/2017 Height 67 inches 5'7" Heart Rate [...] Test Date Test Result H/L Range Note Urine Microalbumin Random 05/08/2018 Ur Microalbumin (mg/L) < 15.0 Urine Creatinine 224.47 mg/dL Urine Microalbumin/Creatinine TNP <31 1 Laboratory test finding 05/08/2018 Hemoglobin A1c 9.7 High 5-7 Urinalysis Profile 11/02/2017 Urine Color Yellow Urine Appearance Clear Urine Specific [place] 1.018 1.010-1.030 Urine pH 5.0 5-9 Urine Urobilinogen Negative Negative Urine Ketones Negative Negative Urine Protein Negative Negative Urine Leukocytes Negative Negative Urine Blood Negative Negative Urine Nitrite Negative Negative Urine Bilirubin Negative Negative Urine Glucose 1+(50 mg/dL) Negative Urine Drug SCR ED & 11/02/2017 Amphetamine Ur Screen None Detected None Detect Pain Clinic Barbiturates Urine Screen None Detected None Detect Benzodiazepine Urine Screen None Detected None Detect Urine Cannabinoids Screen None Detected None Detect Urine Cocaine Screen None Detected None Detect Urine Opiates Screen Presumptive Posi <SEE NOTE> None Detect 2 Urine Phencyclidine Screen None Detected None Detect 3 Arterial Blood Gas 11/02/2017 PH Arterial 7.36 7.35-7.45 Pco2 Arterial 50 mmHg High 35-45 Po2 Arterial 65 mmHg Low 80-100 O2 Saturation Arterial 91.1 % Low 95-98 Base Excess Arterial 2.1 High -2.0-2.0 4 Hco3 Arterial 26.4 mmol/L 19-31 Laboratory test finding 11/02/2017 Ammonia 37 ?mol/L 16-53 Lactic Acid 1.0 mmol/L 0.5-2.0 5 CBC Auto Diff 11/02/2017 White Blood Count 8.5 10^3/uL 3.5-10.8 Red Blood Count 4.40 10^6/uL 4.0-5.4 Hemoglobin 11.8 g/dL Low 12.0-16.0 Hematocrit 37 % 35-47 Mean Corpuscular Volume 84 fL 80-97 Mean Corpuscular Hemoglobin 27 pg 27-31 Mean Corpuscular HGB Conc 32 g/dL 31-36 Red Cell Distribution Width 18 % High 10.5-15 Platelet Count 207 10^3/uL 150-450 Mean Platelet Volume 8.4 um3 7.4-10.4 Abs Neutrophils 5.7 10^3/uL 1.5-7.7 Abs Lymphocytes 2.2 10^3/uL 1.0-4.8 Abs Monocytes 0.4 10^3/uL 0-0.8 Abs Eosinophils 0.2 10^3/uL 0-0.6 Abs Basophils 0 10^3/uL 0-0.2 Abs Nucleated RBC 0 10^3/uL Granulocyte % 67.4 % 38-83 Lymphocyte % 25.6 % 25-47 Monocyte % 4.4 % 0-7 Eosinophil % 2.2 % 0-6 Basophil % 0.4 % 0-2 Nucleated Red Blood Cells % 0 Comp Metabolic Panel 11/02/2017 Potassium 4.4 mmol/L 3.5-5.0 Chloride 107 mmol/L 101-111 Co2 Carbon Dioxide 30 mmol/L 22-32 Glucose 92 mg/dL 70-100 Blood Urea Nitrogen 18 mg/dL 6-24 Creatinine 0.85 mg/dL 0.51-0.95 BUN/Creatinine Ratio 21.2 High 8-20 Calcium 9.2 mg/dL 8.6-10.3 Total Protein 6.8 g/dL 6.4-8.9 Albumin 3.7 g/dL 3.2-5.2 Globulin 3.1 g/dL 2-4 Albumin/Globulin Ratio 1.2 1-3 Total Bilirubin 0.10 mg/dL Low 0.2-1.0 Alkaline Phosphatase 135 U/L High 34-104 Alt 25 U/L 7-52 Ast 26 U/L 13-39 Egfr Non- 70.5 >60 Egfr 90.7 >60 6 Sodium 142 mmol/L 139-145 Anion Gap 5 mmol/L 2-11 Laboratory test finding 11/02/2017 Magnesium 1.9 mg/dL 1.9-2.7 Creatine Kinase(CK) 72 U/L 10-223 Troponin-I (TnI) 0.03 ng/mL <0.04 Acetaminophen < 15 g/mL 7 Alcohol < 10 mg/dL <10 Salicylate < 2.50 mg/dL <30 TSH (Thyroid Stim Horm) 1.79 mcIU/mL 0.34-5.60 CBC Auto Diff 10/02/2017 White Blood Count [...] Egfr Non- 70.5 >60 Egfr 90.7 >60 8 Laboratory test finding 10/02/2017 CRP High Sensitivity 3.53 mg/L 9 Laboratory test finding 09/28/2017 Hemoglobin A1c 9.1 High 5-7 Laboratory test finding 09/13/2017 Point of Care Glucose 179 mg/dL High 70 -100 10 Laboratory test finding 09/13/2017 Point of Care Glucose 260 mg/dL High 70 -100 11 Comp Metabolic Panel 08/29/2017 Sodium 136 mmol/L [...] Egfr Non- 47.4 >60 Egfr 60.9 >60 12 Laboratory test finding 08/29/2017 Lipase < 10 U/L Low 11.0-82.0 CRP High Sensitivity 1.79 mg/L 13 Troponin-I (TnI) 0.00 ng/mL <0.04 CBC Auto [...] test finding 08/29/2017 B-Type Natriuretic 21 pg/mL 14 Peptide BNP CBC Auto Diff 08/26/2017 White [...] Egfr Non- 62.8 >60 Egfr 80.7 >60 15 Inr/Protime 08/26/2017 Inr 0.82 0.77-1.02 Laboratory test finding 08/26/2017 Partial Thrombo 27.7 seconds 26.0- 36.3 Time PTT Laboratory test finding 08/25/2017 Point of Care 157 mg/dL High 70-100 16 Glucose Urinalysis Profile 08/25/2017 Urine Color Yellow Urine Appearance Clear Urine Specific [place] 1.010 1.010-1.030 Urine pH 5.0 5-9 Urine Urobilinogen Negative Negative Urine Ketones Negative Negative Urine Protein Negative Negative Urine Leukocytes Negative Negative Urine Blood Negative Negative Urine Nitrite Negative Negative Urine Bilirubin Negative Negative Urine Glucose 3+(>=500 mg/dL) Negative Laboratory test finding 08/25/2017 Point of Care Glucose 289 mg/dL High 70 -100 17 Venous Blood Gas 08/25/2017 Venous Blood pH 7.48 High 7.33-7.43 Venous Pco2 31 mmHg Low 41-51 Venous Po2 98 mmHg High 35-45 Venous O2 Saturation 95.3 % High 70-80 Venous Blood Base Excess 0.1 0-4 18 Venous Bicarbonate Hco3 25.0 mmol/L 24-28 CBC [...] Egfr Non- 68.6 >60 Egfr 88.3 >60 19 Laboratory test finding 08/25/2017 C Reactive Protein 3.27 mg/L < 5.00 20 Laboratory test finding 08/23/2017 Point of Care Glucose 224 mg/dL High 70 -100 21 Laboratory test finding 08/22/2017 Glucose 417 mg/dL High 70-100 Laboratory test finding 08/22/2017 Point of Care Glucose > 444 mg/dL High 70-100 22 Urinalysis Profile 08/22/2017 Urine Color Yellow Urine Appearance Cloudy Urine Specific [place] 1.023 1.010-1.030 Urine pH 6.0 5-9 Urine [...] And 08/22/2017 Urine Culture SEE RESULT BELOW 23 Sensitivities CBC Auto Diff 08/22/2017 White Blood [...] 0-2 Nucleated Red Blood Cells % 0.1 Venous Blood Gas 08/22/2017 Venous Blood pH 7.42 7.33-7.43 Venous Pco2 49 mmHg 41-51 Venous Po2 36 mmHg 35-45 Venous O2 Saturation 78.1 % 70-80 Venous Blood Base Excess 6.3 High 0-4 24 Venous Bicarbonate Hco3 29.4 mmol/L High 24-28 Inr/Protime 08/22/2017 Inr 0.91 0.77-1.02 Laboratory test finding 08/22/2017 Lactic Acid 1.3 mmol/L 0.5-2.0 25 Comp Metabolic Panel 08/22/2017 Sodium 131 mmol/L [...] Egfr Non- 65.2 >60 Egfr 83.8 >60 26 Glucose 543 mg/dL High 70-100 27 Laboratory test finding 08/22/2017 Magnesium 2.0 mg/dL 1.9-2.7 Creatine Kinase(CK) 121 U/L 10-223 C Reactive Protein 4.62 mg/L < 5.00 28 Troponin-I (TnI) 0.01 ng/mL <0.04 Laboratory test finding 08/18/2017 Point of Care Glucose 180 mg/dL High 70 -100 29 Urinalysis Profile 08/17/2017 Urine Color Yellow Urine Appearance Cloudy Urine Specific [place] 1.016 1.010-1.030 Urine pH 5.0 5-9 Urine Urobilinogen Negative Negative Urine Ketones Negative Negative Urine Protein Negative Negative Urine Leukocytes Negative Negative Urine Blood Negative Negative Urine Nitrite Negative Negative Urine Bilirubin Negative Negative Urine Glucose 3+(>=500 mg/dL) Negative Urine Drug SCR ED & 08/17/2017 Amphetamine Ur Screen None Detected None Detect Pain Clinic Barbiturates Urine Screen None Detected None Detect Benzodiazepine Urine Screen None Detected None Detect Urine Cannabinoids Screen None Detected None Detect Urine Cocaine Screen None Detected None Detect Urine Opiates Screen None Detected None Detect Urine Phencyclidine Screen None Detected None Detect 30 Laboratory test finding 08/17/2017 Point of Care 276 mg/dL High 70-100 31 Glucose Laboratory test finding 08/17/2017 Point of Care > 444 mg/dL High 70-100 32 Glucose Venous Blood Gas 08/17/2017 Venous Blood pH 7.36 7.33-7.43 Venous Pco2 48 mmHg 41-51 Venous Po2 29 mmHg Low 35-45 Venous O2 Saturation 59.9 % Low 70-80 Venous Blood Base Excess 1.1 0-4 33 Venous Bicarbonate Hco3 24.9 mmol/L 24-28 CBC [...] Egfr Non- 72.5 >60 Egfr 93.2 >60 34 Glucose 543 mg/dL High 70-100 35 Laboratory test finding 08/17/2017 Acetaminophen < 15 g/mL 36 Alcohol < 10 mg/dL <10 Salicylate < 2.50 mg/dL <30 TSH (Thyroid Stim Horm) 2.76 mcIU/mL 0.34-5.60 Lamotrigine (Lamictal) 4.2 g/mL 2.5 - 15.0 37 Laboratory test finding 08/17/2017 Point of Care Glucose > 444 mg/dL High 70-100 38 Laboratory test finding 08/09/2017 Point of Care Glucose 266 mg/dL High 70 -100 39 Urinalysis Profile 08/08/2017 Urine Color Yellow Urine Appearance Cloudy Urine Specific [place] 1.022 1.010-1.030 Urine pH 6.0 5-9 Urine Urobilinogen Negative Negative Urine Ketones Negative Negative Urine Protein Negative Negative Urine Leukocytes Negative Negative Urine Blood Negative Negative Urine Nitrite Negative Negative Urine Bilirubin Negative Negative Urine Glucose 3+(>=500 mg/dL) Negative Urine Drug SCR ED & 08/08/2017 Amphetamine Ur Screen None Detected None Detect Pain Clinic Barbiturates Urine Screen None Detected None Detect Benzodiazepine Urine Screen None Detected None Detect Urine Cannabinoids Screen None Detected None Detect Urine Cocaine Screen None Detected None Detect Urine Opiates Screen None Detected None Detect Urine Phencyclidine Screen None Detected None Detect 40 CBC Auto Diff 08/08/2017 White Blood Count [...] Egfr Non- 74.5 >60 Egfr 95.9 >60 41 Laboratory test finding 08/08/2017 Acetaminophen < 15 g/mL 42 Alcohol < 10 mg/dL <10 Salicylate < 2.50 mg/dL <30 TSH (Thyroid Stim Horm) 2.67 mcIU/mL 0.34-5.60 Lamotrigine (Lamictal) 2.5 g/mL 2.5 - 15.0 43 Laboratory test finding 08/04/2017 Point of Care Glucose 258 mg/dL High 70 -100 44 Laboratory test finding 08/04/2017 Point of Care Glucose 175 mg/dL High 70 -100 45 Laboratory test finding 08/04/2017 Point of Care Glucose 284 mg/dL High 70 -100 46 Urinalysis Profile 08/03/2017 Urine Color Yellow Urine Appearance Cloudy Urine Specific [place] 1.012 1.010-1.030 Urine pH 5.0 5-9 Urine [...] Crystals Present Absent Urine Drug SCR ED & 08/03/2017 Amphetamine Ur Screen None Detected None Detect Pain Clinic Barbiturates Urine Screen None Detected None Detect Benzodiazepine Urine Screen None Detected None Detect Urine Cannabinoids Screen None Detected None Detect Urine Cocaine Screen None Detected None Detect Urine Opiates Screen None Detected None Detect Urine Phencyclidine Screen None Detected None Detect 47 Urine Culture And 08/03/2017 Urine Culture SEE RESULT BELOW 48 Sensitivities CBC Auto Diff 08/03/2017 White Blood [...] Egfr Non- 67.7 >60 Egfr 87.1 >60 49 Laboratory test finding 08/03/2017 Acetaminophen < 15 g/mL 50 Alcohol < 10 mg/dL <10 Salicylate < [...] Egfr Non- 76.7 >60 Egfr 98.7 >60 51 Laboratory test 08/02/2017 Troponin-I (TnI) 0.03 ng/mL <0.04 finding Urine Culture And 08/01/2017 Urine Culture SEE RESULT 52, 53 Sensitivities BELOW Laboratory test 06/13/2017 Hemoglobin A1c 9.2 High 5-7 finding Laboratory test 06/03/2017 Point of Care 184 mg/dL High 70-100 54 finding Glucose Laboratory test 06/03/2017 Point of Care 256 mg/dL High 70-100 55 finding Glucose Laboratory test 06/03/2017 Point of Care 329 mg/dL High 70-100 56 finding Glucose Laboratory test 06/03/2017 Point of Care 384 mg/dL High 70-100 57 finding Glucose Laboratory test 06/03/2017 Point of Care > 444 mg/dL High 70-100 58 finding Glucose Laboratory test 06/03/2017 Point of Care > 444 mg/dL High 70-100 59 finding Glucose 1 Unable to calculate due to low microalbumin 2 Presumptive Positive Presumptive positive results are unconfirmed. 3 The urine specimen was tested at the listed cutoffs: Drug class test level (ng/mL) Amphetamines 500 Barbiturates 200 Benzodiazepine metabolites 200 Cocaine metabolites 150 Cannabinoids 50 Opiates 300 Pcp 25 Specimen was received without chain of custody. Results should be used for medical purposes only. 4 Reference ranges based on room air. 5 [facility] Severe Sepsis and Septic Shock Management Bundle Measure requires all lactic acids initially measuring >2.0 mmol/L be repeated. 6 Because ethnic data is not always [...] 5 Kidney failure <15 (or dialysis) 7 Therapeutic concentration: <50 ug/mL Toxic concentration: >120 ug/mL 8 Because ethnic data is not always [...] 5 Kidney failure <15 (or dialysis) 9 Low risk: <1.00 Average risk: 1.00-3.00 High risk: >3.00 10 [employer] Welder: [id number] 11 Heliarc Welder: [id number] 12 Because ethnic data is not always [...] 5 Kidney failure <15 (or dialysis) 13 Low risk: <1.00 Average risk: 1.00-3.00 High risk: >3.00 14 >100 to <200 pg/mL: likely compensated congestive heart failure (CHF) 200 to 400 pg/mL: likely moderate CHF >400 pg/mL: likely moderate to severe CHF 15 Because ethnic data is not always readily [...] 15-29 5 Kidney failure <15 (or dialysis) 16 Heliarc Welder: [id number] 17 Heliarc Welder: [id number] 18 Reference ranges based on room air. 19 Because ethnic data is not always readily [...] 15-29 5 Kidney failure <15 (or dialysis) 20 Acute inflammation: >10.00 21 Heliarc Welder: [id number] 22 Heliarc Welder: [id number] 23 SEE RESULT BELOW Name: CECILIO ALFARO : [address]: Violeta Yusuf MD Acct: [id number] Unit: [id number] AGE: 52 Location: ED Re08/22/17 SEX: F Status: DEP ER SPEC: [id number] ANKUR: 08/22/[address] [facility] [address]: Violeta Yusuf MD REQ: [id number] RECD: 08/22/17 STATUS: COMP LICO DR: Chapo Aguila MD _ SOURCE: URINE SPDC: ORDERED: Urine Culture Procedure Result Reported Site Urine Culture Final 08/23/17- 1607 ML Mixed seema; possible contamination. Suggest resubmission. * ML - MAIN LAB ([facility]) . END OF REPORT * ML=Testing performed at Main Lab DEPARTMENT OF PATHOLOGY, [address] [place] [address] Tay Gamboa M.D. Director [facility] # [id number] 24 Reference ranges based on room air. 25 [facility] Severe Sepsis and Septic Shock Management Bundle Measure requires all lactic acids initially measuring >2.0 mmol/L be repeated. 26 Because ethnic data is not always readily [...] 15-29 5 Kidney failure <15 (or dialysis) 27 Critical Result [id number] Called to JIMENA at: 21:48:40 by:[id number] Read back by:[id number] 28 Acute inflammation: >10.00 29 Heliarc Welder: [id number] 30 The urine specimen was tested at the listed cutoffs: Drug class test level (ng/mL) Amphetamines 500 Barbiturates 200 Benzodiazepine metabolites 200 Cocaine metabolites 150 Cannabinoids 50 Opiates 300 Pcp 25 Specimen was received without chain of custody. Results should be used for medical purposes only. 31 Heliarc Welder: [id number] 32 Heliarc Welder: [id number] 33 Reference ranges based on room air. 34 Because ethnic data is not always [...] 5 Kidney failure <15 (or dialysis) 35 Critical Result [id number] Called to [id number] at: 18:00:03 by:[id number] Read back by:[id number] 36 Therapeutic concentration: <50 ug/mL Toxic concentration: >120 ug/mL 37 ADDITIONAL INFORMATION This test was developed and its performance characteristics determined by [facility] in a manner consistent with CLIA requirements. This test has not been cleared or approved by the U.S. Food and Drug Administration. Test Performed by: [facility] [address] [place] [address] 38 Heliarc Welder: [id number] 39 Heliarc Welder: [id number] 40 The urine specimen was tested at the listed cutoffs: Drug class test level (ng/mL) Amphetamines 500 Barbiturates 200 Benzodiazepine metabolites 200 Cocaine metabolites 150 Cannabinoids 50 Opiates 300 Pcp 25 Specimen was received without chain of custody. Results should be used for medical purposes only. 41 Because ethnic data is not always readily [...] 15-29 5 Kidney failure <15 (or dialysis) 42 Therapeutic concentration: <50 ug/mL Toxic concentration: >120 ug/mL 43 ADDITIONAL INFORMATION This test was developed and its performance characteristics determined by [facility] in a manner consistent with CLIA requirements. This test has not been cleared or approved by the U.S. Food and Drug Administration. Test Performed by: [facility] [address] [place] [address] 44 Heliarc Welder: [id number] 45 Heliarc Welder: 46 Heliarc Welder: [id number] 47 The urine specimen was tested at the listed cutoffs: Drug class test level (ng/mL) Amphetamines 500 Barbiturates 200 Benzodiazepine metabolites 200 Cocaine metabolites 150 Cannabinoids 50 Opiates 300 Pcp 25 Specimen was received without chain of custody. Results should be used for medical purposes only. 48 SEE RESULT BELOW Name: CECILIO ALFARO : [address]: Sendy Mcdowell MD Acct: [id number] Unit: [id number] AGE: 52 Location: ED Re08/03/17 SEX: F Status: REG ER SPEC: [id number] ANKUR: 08/03/[address]: Sendy Mcdowell MD REQ: [id number] RECD: 08/03/17 STATUS: COMP LICO DR: Chapo Aguila MD _ SOURCE: URINE SPDESC: ORDERED: Urine Culture Procedure Result Reported Site Urine Culture Final 08/05/17- 1225 ML No growth of clinically significant organisms * ML - MAIN LAB ([facility]) . END OF REPORT * ML=Testing performed at Main Lab DEPARTMENT OF PATHOLOGY, [address] [place] [address] Tay Gamboa M.D. Director [facility] # [id number] 49 Because ethnic data is not always readily [...] 15-29 5 Kidney failure <15 (or dialysis) 50 Therapeutic concentration: <50 ug/mL Toxic concentration: >120 ug/mL 51 Because ethnic data is not always readily [...] 15-29 5 Kidney failure <15 (or dialysis) 52 [id number] SEE RESULT BELOW Name: CECILIO ALFARO : [address]: nAy Ramirez MD Acct: [id number] Unit: [id number] AGE: 52 Location: [facility] Re08/01/17 SEX: F Status: DEP ER SPEC: [id number] ANKUR: 08/01/17-[address]: Any Ramirez MD REQ: [id number] RECD: 08/02/17-110 STATUS: TASHA BARFIELD DR: Chapo Aguila MD _ SOURCE: URINE SPDESC: ORDERED: Urine Culture COMMENTS: [id number] Procedure Result Reported Site Urine Culture Final 08/03/17- 1251 ML Mixed seema; possible contamination. Suggest resubmission. * ML - MAIN LAB ([facility]) . END OF REPORT * ML=Testing performed at Main Lab DEPARTMENT OF PATHOLOGY, [address] [place] [address] Tay Gmaboa M.D. Director [facility] # [id number] 54 Heliarc Welder: [id number] 55 Heliarc Welder: [id number] 56 Heliarc Welder: [id number] 57 Heliarc Welder: [id number] 58 Heliarc Welder: [id number] 59 Heliarc Welder: [id number] Procedures Date CPT Code Description Status 11/03/2017 01916 EKG, Interpretation Only Completed 10/26/2017 Diabetic Retinal Eye Exam Completed 10/11/2017 65201 Inject/Drain Joint/Bursa Major W/O US Completed 06/03/2017 55722 Carpal Tunnel Release Completed 06/03/2017 52999 Carpal Tunnel Release Completed 05/01/2016 Mammogram Completed 04/06/2016 48121 EEG Recording Awake & Drowsy Completed 04/03/2016 30364 EKG, Interpretation Only Completed 04/29/2015 59681 EEG Recording Awake & Drowsy Completed 04/16/2012 07007 EKG, Interpretation Only Completed 04/16/2012 67801 EKG, Interpretation Only Completed Encounters Type Date Location Provider CPT E/M Dx Office Visit 11/04/2017 [facility], Sherita Lui M.D. 31919 G92 11:25a Hospitalists T50.904A F60.3 R40.2432 Office Visit 11/03/2017 11:23a [facility] Ishmael Anand D.O. 45039 G92 F60.3 T50.904A R40.2432 Office Visit 11/02/2017 11:22a [facility] Ishmael Anand D.O. 81743 R40.2432 G92 T50.904A F60.3 Office Visit 10/18/2017 9:00a [facility], 62342 M75.31 Hilda LAWSON Office Visit 10/13/2017 1:40p [facility] Chapo Aguila, [address] E11.[address] - [address] M.DJarred Z12.31 Z12.11 Office Visit 10/11/2017 1:30p [facility], 14153 M75.31 Hilda LAWSON Office Visit 09/28/2017 1:20p [facility] Chapo Aguila, 75106 E11.65 - Benedict Sahu M79.645 E03.9 Office Visit 09/19/2017 2:40p [facility] Chapo Aguila, 69020 E11.65 Medicine - [address] Adelina M54.5 Office Visit 08/17/2017 2:10p [facility] [place] [address] F33.3 - [address] R45.851 Office Visit 08/11/2017 1:20p [facility] Chapo Aguila, 94675 F31.31 Medicine - [address] Adelina M51.16 K63.5 K21.9 Office Visit 07/15/2017 11:00a [facility] Chapo Aguila M.D. 67483 E11.9 Medicine - [address] M51.16 F31.31 E66.01 Z68.41 Office Visit 06/13/2017 3:20p [facility] Chapo Aguila M.D. 02562 E11.9 Medicine - [address] E03.9 K21.9 E78.2 E66.2 Z68.41 F31.70 Z12.11 F17.210 B37.9 Z79.4 Office Visit 05/26/2017 8:45a [facility], 82443 G56.02 Hilda Sahu Office Visit 05/11/2017 10:45a [facility] [place] [address] R10.9 [facility] Office Visit 06/14/2016 1:40p [facility] [place] [address] L02.91 Assoc,pc Hospitalists E11.9 Z79.4 Office Visit 06/13/2016 1:39p [facility] Assoc,pc Ovidio Aldana.Gretchen 17137 L02.91 Hospitalists E11.9 Z79.4 Office Visit 05/21/2016 3:25p [facility] Harshil Lui, 79598 T39.1x2A Assoc,pc Hospitalists M.D. E11.9 F79 Office Visit 05/20/2016 3:24p Lainey Lui, 48074 T39.1x2A Assoc,pc Hospitalists M.D. E11.9 F79 Office Visit 05/19/2016 3:24p Lainey Lui, 27795 T39.1x2A Assoc,pc Hospitalists M.D. E11.9 F79 Office Visit 05/18/2016 3:23p [facility] Harshil Lui, 80065 T39.1x2A Assoc,pc Hospitalists M.D. E11.9 F79 Office Visit 05/17/2016 3:23p [facility] Harshil Mosquera, 01222 T39.1x2A Assoc,pc Hospitalists M.D. E11.9 F79 Office Visit 05/16/2016 3:22p [facility] Harshil Mosquera, 51532 T39.1x2A Assoc,pc Hospitalists M.D. E11.9 F79 Office Visit 05/15/2016 3:22p [facility]arshil Mosquera, 15877 T39.1x2A Assoc,pc Hospitalists M.D. E11.9 F79 Office Visit 05/14/2016 3:22p [facility] Yara Zepedar, 20463 T39.1x2A Assoc,pc Hospitalists D.O. E11.9 F79 Office Visit 05/13/2016 3:21p [facility] Yara Addy, 23344 T39.1x2A Assoc,pc Hospitalists D.O. E11.9 F79 Office Visit 05/12/2016 3:21p [facility] Yara Addy, 60868 T39.1x2A Assoc,pc Hospitalists D.O. E11.9 F79 Office Visit 05/11/2016 3:20p [facility] Benjamin Snell, 26969 T39.1x2A Assoc,pc PA Hospitalists E11.9 F79 Office Visit 05/03/2016 11:09a [facility] [place] [address] R73.9 Hospitalists J40 G89.4 Office Visit 04/07/2016 3:52p [facility] Ml Mosquera, 73283 R40.4 Hospitalists M.D. E13.9 F79 Z91.19 Office Visit 04/06/2016 3:52p [facility] Ml Mosquera, 24018 R40.4 Hospitalists M.D. E13.9 F79 Z91.19 Office Visit 04/05/2016 3:51p [facility] Yara Addy, 92264 R40.4 Hospitalists D.O. E13.9 F79 Z91.19 Office Visit 04/04/2016 3:51p [facility] Yara Addy, 77980 R40.4 Hospitalists D.O. E13.9 F79 Z91.19 Office Visit 04/03/2016 3:50p [facility], Rosi Grant, LUZ 44080 R40.4 Hospitalists E13.9 F79 Z91.19 Office Visit 10/01/2015 10:08a [facility] Gray Conn, 12490 M54.31 Assoc, Hospitalists N.P. E11.9 F60.3 Office Visit 09/28/2015 10:06a [facility], Ml Mosquera, 72813 M54.31 Hospitalists M.D. E11.9 Office Visit 04/24/2015 1:31p [facility], Conner [place], 34985 276.1 Hospitalists M.D. 296.7 301.83 Office Visit 04/23/2015 1:30p [facility], Conner Powers, 05899 276.1 Hospitalists M.D. 250.00 296.7 301.83 Office Visit 04/22/2015 1:29p [facility], Quique Aden, 89900 276.1 Hospitalists M.D. 250.00 301.83 Office Visit 04/21/2015 1:28p [facility], Gray Conn, 59212 276.1 Hospitalists N.P. 296.7 301.83 250.00 Office Visit 11/27/2014 8:42a [facility], Sherita Lui, 64179 244.9 Hospitalists M.D. 250.02 301.83 Office Visit 04/17/2012 4:07p [facility]oc, Yara Daly, 46757 969.09 Hospitalists D.OJarred 300.9 311 Office Visit 04/16/2012 4:35p [facility] Ceasar Grajeda, 93195 969.09 Assoc, Hospitalists Adelina 300.9 311 V11.1 Office Visit 10/18[facility]2009 [facility] Jase [facility] M.D. 42994 789.00 Hospitalists 787.03 790.29 250.02 Office Visit 10/17/2009 3:00a [facility] Assoc, aJse Jesus M.D. 07781 790.29 Hospitalists 789.00 295.70 401.9 Office Visit 10/16/2009 12:15a [facility] Sherita Marshall, 72114 790.29 Assoc, Hospitalists Adelina 296.80 Plan of Care Future Appointment(s):08/08/2018 1:40 pm - Rosa Schroeder MD at [facility] - [address]05/08/2018 - Rosa Schroeder MDE11.65 Type 2 diabetes mellitus with hyperglycemiaNew Medication:Januvia 50 mgExerciseNew Labs:Hemoglobin A1c ( Glyco HGB)Lipid Profile (Trig/Chol/HDL)Comments:You are not meeting goal for blood sugar control. Your Hemoglobin A1c is 9.7%Changes to medications are indicated today as follows: Start Januvia 50mg daily.A yearly nutrition visit is available to alldiabetics, we will contact [place] to make sure you are getting a balanced, diabetic diet.You are on a moderate-potency statin to prevent new or recurrent heart disease, which is common in diabetics.Follow up: 3 months, 20 minGoals:Goal Hemoglobin A1c is less than 7.0% in ages 18-74 Goal Hemoglobin A1c is between 7.0% and 8.0% in age over 75 Goal Blood pressure is less than 130/85. Cholesterol should be lowered by a high or moderate-dose statin.R15.1 Fecal smearingNew Medication:Depend Adjustable Underwear L/ XLComments:accidents with bowel movements may be due to metformin. They should stop once the metformin is discontinued, Keep appt with GI in Essential (primary) hypertensionNew Labs:Comp Metabolic PanelComments:Continue with your current medication.R94.5 Abnormal results of liver function studiesNew Labs:GGTPComments:There is only s light abnormality of the liver tests noted in your labs in March. We will re test your liver funstion tests before the next visit in August 2018.F33.3 Major depressv disorder, recurrent, severe w psych symptoms
[2018-05-10 21:26] LABS: ABS Basophils 0.1 10^3/ul (0-0.2); ABS Eosinophils 0.3 10^3/ul (0-0.6); ABS Lymphocytes 3.1 10^3/ul (1.0-4.8); ABS Monocytes 0.5 10^3/ul (0-0.8); ABS Nucleated RBC 0 10^3/ul; Eosinophil % 2.8 % (0-6); Hematocrit 38 % (35-47); Hemoglobin 12.1 g/dl (12.0-16.0); Lymphocyte % 25.7 % (25-47); Mean Corpuscular HGB Conc 32 g/dl (31-36); Mean Corpuscular Hemoglobin 28 pg (27-31); Mean Corpuscular Volume 86 fL (80-97); Mean Platelet Volume 9.4 um3 (7.4-10.4); Nucleated Red Blood Cells % 0.1; Platelet Count 236 10^3/ul (150-450); Red Blood Count 4.39 10^6/ul (4.00-5.40); Red Cell Distribution Width 17 % (10.5-15)
[2018-05-10 21:44] LABS: EGFR Non-African American 74.5 (>60)
[2018-05-10] MEDS ORDERED: Iodixanol* (CONTRAST) 320 MG/ML 100 ML SDV IV ONE (22:53)
[2018-05-10 23:29] VITALS: BP 140/85
--- NOTE | 2018-05-11 00:11 | RAD ---
EXAM: CT Abdomen and Pelvis Without Intravenous Contrast EXAM DATE/TIME: 05/10/2018 11:16 PM CLINICAL HISTORY: 52 years old, female; Pain; Abdominal pain; Generalized; Additional info: Generalized abd pain TECHNIQUE: Axial computed tomography images of the abdomen and pelvis without intravenous contrast. All CT scans at this facility use at least one of these dose optimization techniques: automated exposure control; mA and/or kV adjustment per patient size (includes targeted exams where dose is matched to clinical indication); or iterative reconstruction. Coronal and sagittal reformatted images were created and reviewed. COMPARISON: A/P W CT ABD/PEL W 05/10/2017 3:14 AM FINDINGS: Lower thorax: No acute findings. ABDOMEN: Liver: Diffuse low-attenuation of the liver parenchyma with sparing along the gallbladder fossa. Associated enlargement measuring 22 cm. No focal lesions. Gallbladder and bile ducts: Surgically absent gallbladder. Pancreas: There is parenchymal atrophy and numerous small calcifications throughout the pancreas consistent with chronic pancreatitis. Spleen: Normal. No splenomegaly. Adrenals: Low attenuating left adrenal nodule measures 2.5 cm and -0.6 Hounsfield units (series 4, image 38) unchanged from prior study. No right adrenal nodules. Kidneys and ureters: Nonobstructing calculus left inferior renal pole measures 0.2 cm. No pelvocaliectasis or right renal calculi. Stomach and bowel: Incompletely distended grossly normal stomach. Normal caliber small bowel. No colonic masses or segmental wall thickening. Appendix: Normal caliber appendix without wall thickening or adjacent inflammation. PELVIS: Bladder: The bladder is decompressed but otherwise normal. Reproductive: Uterus and ovaries are normal. ABDOMEN and PELVIS: Intraperitoneal space: Normal. No free air. No significant fluid collection. Bones/joints: The spine demonstrates moderate degenerative changes at multiple levels. Mild bilateral hip primary osteoarthritis. No fractures. No suspicious bone lesions. Soft tissues: Indirect fat-containing left inguinal hernia. No stranding. There is a fat-containing umbilical hernia. No stranding. Vasculature: Normal. No abdominal aortic aneurysm. Lymph nodes: Normal. No enlarged lymph nodes. IMPRESSION: 1. No CT findings to correlate with patient's symptomatology. 2. Hepatic steatosis and associated hepatomegaly. 3. Left adrenal adenoma. 4. Left inguinal and umbilical hernias. No strangulation. To contact [facility] with a general question: [facility] - [phone] For direct physician to physician contact: Physician Hotline - [phone] [facility] (ad Facility ID #[id number])
--- NOTE | 2018-05-11 00:39 | ED ---
GI/ HPI - HPI Summary HPI Summary: 52 year female presents with diffuse abdominal pain starting today. States she has had this pain past but never been this intense. States she was worked up by GI specialist in december. States she'was suppose to have colonoscopy but never did. She denies any nausea vomiting. No diarrhea or constipation. No fevers. No urinary symptoms. She has had her gallbladder removed. She has history of pancreatitis and states that it feels similar. - History of Current Complaint Chief Complaint: EDAbdPain Time Seen by Provider: 05/10/18 22:32 Stated Complaint: ABD PAIN Hx Last Menstrual Period: "last month" Pain Intensity: 4 - Additional Pertinent History Primary Care Physician: [id number] - Allergy/Home Medications Allergies/Adverse Reactions: Allergies Allergy/AdvReac Type Severity Reaction Status Date / Time ciprofloxacin Allergy Dizziness Verified 10/10/17 11:22 latex Allergy Rash Verified 10/10/17 11:22 lithium Allergy See Comment Verified 10/10/17 11:22 [email or web address] Allergy Unknown Verified 10/10/17 11:22 Reaction Details Penicillins Allergy Rash Verified 10/10/17 11:22 perphenazine Allergy Unknown Verified 10/10/17 11:22 Reaction Details Sulfa (Sulfonamide Allergy Hives Verified 10/10/17 11:22 Antibiotics) tramadol Allergy Altered Verified 10/10/17 11:22 Mental Status ENVIRONMENTAL Allergy Mild SINUS Uncoded 10/10/17 11:22 PMH/Surg Hx/FS Hx/Imm Hx Endocrine/Hematology History: Reports: Hx Diabetes, Hx Thyroid Disease, Other Endocrine/Hematological Disorders - Chronic pancreatitis Denies: Hx Anticoagulant Therapy Cardiovascular History: Reports: Hx Hypertension - NO MEDICATION FOR PER PATIENT , Other Cardiovascular Problems/Disorders - HX OF PSVT 04/2008 Denies: Hx Pacemaker/ICD Respiratory History: Reports: Hx Asthma, Hx Seasonal Allergies, Hx Sleep Apnea - HX OF IN THE PAST Denies: Hx Chronic Bronchitis, Hx Chronic Obstructive Pulmonary Disease (COPD ), Hx Cystic Fibrosis, Hx Lung Cancer, Hx Pleural Effusion, Hx Pneumonia, Hx Pulmonary Edema, Hx Pulmonary Embolism, Other Respiratory Problems/Disorders GI History: Reports: Hx Gall Bladder Disease, Hx Gastroesophageal Reflux Disease - ON MEDICATION FOR, Hx Gastrointestinal Bleed, Hx Irritable Bowel, Other GI Disorders - HX OF pancreatitis- STATES LAST ABOUT 2 WEEKS AGO- STATES SLIGHT CASE Denies: Hx Ulcer History: Denies: Hx Dialysis, Hx Renal Disease Musculoskeletal History: Reports: Hx Arthritis, Hx Back Problems, Other Musculoskeletal History - GEN MUSCULOSKELETAL PAIN Denies: Hx Rheumatoid Arthritis, Hx Bursitis, Hx Congenital Bone Abnormalities, Hx Fibromyalgia, Hx Gout, Hx Orthopedic Injury, Hx Osteoporosis, Hx Scoliosis, Hx Tendonitis Sensory History: Reports: Hx Vision Problem Denies: Hx Cataracts, Hx Contacts or Glasses, Hx Eye Injury, Hx Eye Prosthesis, Hx Glaucoma, Hx Macular Degeneration, Hx Hearing Aid, Other Sensory Impairments Opthamlomology History: Reports: Hx Vision Problem Denies: Hx Cataracts, Hx Contacts or Glasses, Hx Eye Injury, Hx Eye Prosthesis, Hx Glaucoma, Hx Macular Degeneration, Other Sensory Impairments Neurological History: Reports: Hx Developmental Delay - intellectual disability , Hx Seizures - STATES WITH ALLERGIC REACTION TO TRAMADOL Denies: Hx Dementia, Hx Headaches, Other Neuro Impairments/Disorders Psychiatric History: Reports: Hx Anxiety - ON MEDICATION FOR, Hx Depression - ON MEDICATION FOR, Hx Post Traumatic Stress Disorder, Hx Inpatient Treatment, Hx Community Mental Health Tx, Hx Bipolar Disorder - pt manic, Hx Suicide Attempt - past med overdoses, Hx of Violent Episodes Against Others, Other Psychiatric Issues/Disorders - PSYCHOSIS NOS, HX OF PTSD, SCHIZOAFFECTIVE DISORDER, BORDERLINE PERSONALITY Denies: Hx Attention Deficit Hyperactivity Disorder, Hx Eating Disorder, Hx Panic Disorder, Hx Schizophrenia, Hx Substance Abuse - Surgical History Surgery Procedure, Year, and Place: 2011-CATARACT EXTRACTION. GALLBLADDER REMOVED Hx Anesthesia Reactions: No - Immunization History Date of Tetanus Vaccine: Unknown Date of Influenza Vaccine: 04/2017 Infectious Disease History: Yes Infectious Disease History: Denies: Hx Clostridium Difficile, Hx Hepatitis, Hx Human Immunodeficiency Virus (HIV), Hx of Known/Suspected MRSA, Hx Shingles, Hx Tuberculosis, Hx Known/ Suspected VRE, Hx Known/Suspected VRSA, History Other Infectious Disease, Traveled Outside the [place] in Last 30 Days - Family History Known Family History: Positive: Other - Anxiety and depression, [place] - father Negative: Cardiac Disease, Hypertension, Diabetes Family History: Depression and anxiety - Social History Alcohol Use: None Hx Substance Use: Yes Substance Use Type: Reports: None Hx Tobacco Use: Yes Smoking Status (MU): Current Some Day Smoker Type: Cigarettes Amount Used/How Often: 1/2 PPD FOR LAST 30 DAYS, NO OTHER TOBACCO Length of Time of Smoking/Using Tobacco: 2 year ago Have You Smoked in the Last Year: Yes - Patient has smoked within the last 30 days Review of Systems Negative: Fever Negative: Chest Pain Negative: Shortness Of Breath Positive: Abdominal Pain. Negative: Vomiting, Diarrhea, Nausea All Other Systems Reviewed And Are Negative: Yes Physical Exam Triage Information Reviewed: Yes Vital Signs On Initial Exam: Initial Vitals Temp Pulse Resp BP Pulse Ox 98.2 F 101 18 128/90 98 05/10/18 18:23 05/10/18 18:23 05/10/18 18:23 05/10/18 18:23 05/10/18 18:23 Vital Signs Reviewed: Yes Appearance: Positive: Well-Appearing Skin: Positive: Warm, Dry Head/Face: Positive: Normal Head/Face Inspection Eyes: Positive: Normal, Conjunctiva Clear ENT: Positive: Pharynx normal Respiratory/Lung Sounds: Positive: Clear to Auscultation, Breath Sounds Present Cardiovascular: Positive: Normal, RRR Abdomen Description: Positive: Soft, Other: - mild diffuse tenderness Bowel Sounds: Positive: Present Musculoskeletal: Positive: Normal Neurological: Positive: Normal Psychiatric: Positive: Normal Diagnostics - Vital Signs Vital Signs Temp Pulse Resp BP Pulse Ox 05/10/18 23:22 78 140/85 97 05/10/18 23:21 71 98 05/10/18 20:30 98.6 F 76 15 136/74 98 05/10/18 18:23 98.2 F 101 18 128/90 98 - Laboratory Lab Results: Lab Results 05/10/18 05/10/18 05/10/18 Range/Units 21:20 21:20 21:20 WBC 12.0 H (3.5-10.8) 10^3/ul RBC 4.39 (4.00-5.40) 10^6/ul Hgb 12.1 (12.0-16.0) g/dl Hct 38 (35-47) % MCV 86 (80-97) fL MCH 28 (27-31) pg MCHC 32 (31-36) g/dl RDW 17 H (10.5-15) % Plt Count 236 (150-450) 10^3/ul MPV 9.4 (7.4-10.4) um3 Neut % (Auto) 67.1 (38-83) % Lymph % (Auto) 25.7 (25-47) % [place] % (Auto) 3.9 (0-7) % Eos % (Auto) 2.8 (0-6) % Baso % (Auto) 0.5 (0-2) % Absolute Neuts (auto) 8.0 H (1.5-7.7) 10^3/ul Absolute Lymphs (auto) 3.1 (1.0-4.8) 10^3/ul Absolute Monos (auto) 0.5 (0-0.8) 10^3/ul Absolute Eos (auto) 0.3 (0-0.6) 10^3/ul Absolute Basos (auto) 0.1 (0-0.2) 10^3/ul Absolute Nucleated RBC 0 10^3/ul Nucleated RBC % 0.1 Sodium 141 (135-145) mmol/L Potassium 4.9 (3.5-5.0) mmol/L Chloride 107 (101-111) mmol/L Carbon Dioxide 28 (22-32) mmol/L Anion Gap 6 (2-11) mmol/L BUN 16 (6-24) mg/dL Creatinine 0.81 (0.51-0.95) mg/dL Est GFR ( Amer) 90.2 (>60) Est GFR (Non-Af Amer) 74.5 (>60) BUN/Creatinine Ratio 19.8 (8-20) Glucose 174 H (70-100) mg/dL Lactic Acid 1.2 (0.5-2.0) mmol/L Calcium 9.1 (8.6-10.3) mg/dL Total Bilirubin 0.30 (0.2-1.0) mg/dL AST 44 H (13-39) U/L ALT 43 (7-52) U/L Alkaline Phosphatase 199 H (34-104) U/L C-Reactive Protein 6.43 (<8.01) mg/L Total Protein 6.6 (6.4-8.9) g/dL Albumin 3.7 (3.2-5.2) g/dL Globulin 2.9 (2-4) g/dL Albumin/Globulin Ratio 1.3 (1-3) Lipase < 10 L (11.0-82.0) U/L Result Diagrams: 05/10/18 21:20 05/10/18 21:20 Lab Statement: Any lab studies that have been ordered have been reviewed, and results considered in the medical decision making process. - Radiology abd Xray Interpretation: No Acute Changes - 1. No CT findings to correlate with patient's symptomatology. 2. Hepatic steatosis and associated hepatomegaly. 3. Left adrenal adenoma. 4. Left inguinal and umbilical hernias. No strangulation. Radiology Interpretation Completed By: Joycelyn BHAGAT Course/Dx - Course Course Of Treatment: 52 year female presents with diffuse abdominal pain starting today. States she has had this pain past but never been this intense. States she was worked up by GI specialist in december. States she'was suppose to have colonoscopy but never did. She denies any nausea vomiting. No diarrhea or constipation. No fevers. No urinary symptoms. She has had her gallbladder removed. She has history of pancreatitis and states that it feels similar. On exam has mild diffuse tenderness. Labs are at her baseline. CT abdomen shows no acute process. Discussed results with patient. Told to follow up with GI. Patient understands agrees with plan. - Diagnoses Differential Diagnoses - Female: Bowel Obstruction, Colitis, Urinary Tract Infection Provider Diagnoses: Abdominal pain Discharge - Sign-Out/Discharge Documenting (check all that apply): Patient Departure - Discharge Plan Condition: Good Disposition: HOME Patient Education Materials: Abdominal Pain (ED) Referrals: Chapo Aguila MD [Primary Care Provider] - Ben Ovalles MD [Medical Doctor] - Additional Instructions: Your pain is not caused by any surgical emergency Drink small amounts of fluid as tolerated When able to eat follow BRAT diet: Bananas, rice, applesauce, toast Take Tylenol for pain as needed every 6 hours Follow up with primary within 5 days Return to ED if develop any new or worsening symptomsFollow up with GI - Billing Disposition and Condition Condition: GOOD Disposition: Home
== END 2018-05-11 00:53 | disposition home or self-care (01) ==
LOC: ED 17:54
DX: R10.9 Unspecified abdominal pain (principal); E11.9 Type 2 diabetes mellitus without complications; E07.9 Disorder of thyroid, unspecified; K85.90 Acute pancreatitis without necrosis or infection, unspecified; F41.9 Anxiety disorder, unspecified; F17.210 Nicotine dependence, cigarettes, uncomplicated
CPT/HCPCS: 36415; 74176; 80053; 83605; 83690; 85025; 86140; 99283

== ENCOUNTER 2018-05-11 18:06 | Emergency (ER) | payer MEDICARE, MEDICAID ==
[2018-05-11 18:56] LABS: ABS Basophils 0.1 10^3/ul (0-0.2); ABS Eosinophils 0.2 10^3/ul (0-0.6); ABS Lymphocytes 1.9 10^3/ul (1.0-4.8); ABS Monocytes 0.3 10^3/ul (0-0.8); ABS Neutrophils 6.1 10^3/ul (1.5-7.7); ABS Nucleated RBC 0 10^3/ul; Eosinophil % 2.4 % (0-6); Hematocrit 37 % (35-47); Mean Corpuscular HGB Conc 32 g/dl (31-36); Mean Corpuscular Hemoglobin 28 pg (27-31); Mean Corpuscular Volume 87 fL (80-97); Mean Platelet Volume 9.7 um3 (7.4-10.4); Nucleated Red Blood Cells % 0; Platelet Count 222 10^3/ul (150-450); Red Blood Count 4.28 10^6/ul (4.00-5.40); Red Cell Distribution Width 17 % (10.5-15); White Blood Count 8.5 10^3/ul (3.5-10.8)
[2018-05-11] MEDS ORDERED: Acetaminophen TAB* 325 MG PO ONE (18:59)
[2018-05-11] MEDS ORDERED: Iodixanol* (CONTRAST) 320 MG/ML 100 ML SDV IV ONE (19:10)
[2018-05-11 19:13] LABS: EGFR Non-African American 68.6 (>60)
[2018-05-11 19:44] LABS: Urine Appearance Cloudy; Urine Blood Negative (Negative); Urine Color Yellow; Urine Ketones Negative (Negative); Urine Protein Negative (Negative); Urine Specific Gravity 1.021 (1.010-1.030); Urine Urobilinogen Negative (Negative)
--- NOTE | 2018-05-11 20:44 | RAD ---
EXAM: CT Abdomen and Pelvis With Intravenous Contrast EXAM DATE/TIME: 05/11/2018 7:53 PM CLINICAL HISTORY: 52 years old, female; Pain; Abdominal pain; Additional info: Llq tender, evla for divertic TECHNIQUE: Axial computed tomography images of the abdomen and pelvis with intravenous contrast. All CT scans at this facility use at least one of these dose optimization techniques: automated exposure control; mA and/or kV adjustment per patient size (includes targeted exams where dose is matched to clinical indication); or iterative reconstruction. Coronal and sagittal reformatted images were created and reviewed. CONTRAST: 100 ml of VISIPAQUE 320 administered intravenously. COMPARISON: A/P WO CT ABD/PEL W/O 05/10/2018 11:16 PM FINDINGS: Lower thorax: No acute findings. ABDOMEN: Liver: Stable diffuse fatty liver and hepatomegaly. Gallbladder and bile ducts: Normal. No calcified stones. No ductal dilation. Pancreas: Stable sequela of chronic pancreatitis with no evidence for acute pancreatitis. Spleen: Normal. No splenomegaly. Adrenals: Stable 2.1 cm left adrenal adenoma. Kidneys and ureters: Normal. No hydronephrosis. Stomach and bowel: Normal. No obstruction. No mucosal thickening. Appendix: The appendix is unremarkable and seen best on axial image 66 of series 2. PELVIS: Bladder: Unremarkable as visualized. Reproductive: Unremarkable as visualized. ABDOMEN and PELVIS: Intraperitoneal space: Normal. No free air. No significant fluid collection. Bones/joints: There are degenerative changes of the spine. Soft tissues: Stable fat filled umbilical hernia without signs of incarceration. Stable small fat filled left inguinal hernia without signs of incarceration. Vasculature: Stable atherosclerotic aortic calcifications. Lymph nodes: Normal. No enlarged lymph nodes. IMPRESSION: No evidence for acute diverticulitis and no other signs of bowel inflammatory change. To contact [facility] with a general question: Operations Center - [phone] For direct physician to physician contact: Physician Hotline - [phone] [facility] ([facility] Facility ID #[id number])
[2018-05-11] MEDS: Insulin REGULAR(*) 1 UNITS UNIT SUBCUT ONE ×2 (20:48→23:08)
--- NOTE | 2018-05-11 21:50 | ED ---
HPI Diabetic - HPI Summary HPI Summary: This patient is a 52 year old F presenting to [facility] with a chief complaint of hyperglycemia since waking this AM. She endorses fatigue, a bad taste in her mouth, worsening blurry vision, and a mild cough. She notes she started a bread diet yesterday s/p an ED visit for abd pain, which she believes aggravated her PMHx DM. She denies CP, SOB, melena, and hematochezia. Pt notes her sugar has been good lately. PMHx IBS. - History Of Current Complaint Chief Complaint: EDDiabeticProb Time Seen by Provider: 05/11/18 18:15 Hx Obtained From: Patient Hx Last Menstrual Period: "last month" Onset/Duration: Sudden Onset, Lasting Hours, Still Present Timing: Constant Severity Initially: Moderate Severity Currently: Moderate Character: Lethargic Aggravating: Diet Change Alleviating: Nothing Associated Signs & Symptoms: Abdominal Pain, Cough - mild, "Fruity Breath" - bad taste in mouth, worsening blurred vision Related History: DM II, Insulin Requiring - Allergies/Home Medications Allergies/Adverse Reactions: Allergies Allergy/AdvReac Type Severity Reaction Status Date / Time ciprofloxacin Allergy Dizziness Verified 10/10/17 11:22 latex Allergy Rash Verified 10/10/17 11:22 lithium Allergy See Comment Verified 10/10/17 11:22 [email or web address] Allergy Unknown Verified 10/10/17 11:22 Reaction Details Penicillins Allergy Rash Verified 10/10/17 11:22 perphenazine Allergy Unknown Verified 10/10/17 11:22 Reaction Details Sulfa (Sulfonamide Allergy Hives Verified 10/10/17 11:22 Antibiotics) tramadol Allergy Altered Verified 10/10/17 11:22 Mental Status ENVIRONMENTAL Allergy Mild SINUS Uncoded 10/10/17 11:22 PMH/Surg Hx/FS Hx/Imm Hx Endocrine/Hematology History: Reports: Hx Diabetes, Hx Thyroid Disease, Other Endocrine/Hematological Disorders - Chronic pancreatitis Denies: Hx Anticoagulant Therapy Cardiovascular History: Reports: Hx Hypertension - NO MEDICATION FOR PER PATIENT , Other Cardiovascular Problems/Disorders - HX OF PSVT 04/2008 Denies: Hx Pacemaker/ICD Respiratory History: Reports: Hx Asthma, Hx Seasonal Allergies, Hx Sleep Apnea - HX OF IN THE PAST Denies: Hx Chronic Bronchitis, Hx Chronic Obstructive Pulmonary Disease (COPD ), Hx Cystic Fibrosis, Hx Lung Cancer, Hx Pleural Effusion, Hx Pneumonia, Hx Pulmonary Edema, Hx Pulmonary Embolism, Other Respiratory Problems/Disorders GI History: Reports: Hx Gall Bladder Disease, Hx Gastroesophageal Reflux Disease - ON MEDICATION FOR, Hx Gastrointestinal Bleed, Hx Irritable Bowel, Other GI Disorders - HX OF pancreatitis- STATES LAST ABOUT 2 WEEKS AGO- STATES SLIGHT CASE Denies: Hx Ulcer History: Denies: Hx Dialysis, Hx Renal Disease Musculoskeletal History: Reports: Hx Arthritis, Hx Back Problems, Other Musculoskeletal History - GEN MUSCULOSKELETAL PAIN Denies: Hx Rheumatoid Arthritis, Hx Bursitis, Hx Congenital Bone Abnormalities, Hx Fibromyalgia, Hx Gout, Hx Orthopedic Injury, Hx Osteoporosis, Hx Scoliosis, Hx Tendonitis Sensory History: Reports: Hx Vision Problem Denies: Hx Cataracts, Hx Contacts or Glasses, Hx Eye Injury, Hx Eye Prosthesis, Hx Glaucoma, Hx Macular Degeneration, Hx Hearing Aid, Other Sensory Impairments Opthamlomology History: Reports: Hx Vision Problem Denies: Hx Cataracts, Hx Contacts or Glasses, Hx Eye Injury, Hx Eye Prosthesis, Hx Glaucoma, Hx Macular Degeneration, Other Sensory Impairments Neurological History: Reports: Hx Developmental Delay - intellectual disability , Hx Seizures - STATES WITH ALLERGIC REACTION TO TRAMADOL Denies: Hx Dementia, Hx Headaches, Other Neuro Impairments/Disorders Psychiatric History: Reports: Hx Anxiety - ON MEDICATION FOR, Hx Depression - ON MEDICATION FOR, Hx Post Traumatic Stress Disorder, Hx Inpatient Treatment, Hx Community Mental Health Tx, Hx Bipolar Disorder - pt manic, Hx Suicide Attempt - past med overdoses, Hx of Violent Episodes Against Others, Other Psychiatric Issues/Disorders - PSYCHOSIS NOS, HX OF PTSD, SCHIZOAFFECTIVE DISORDER, BORDERLINE PERSONALITY Denies: Hx Attention Deficit Hyperactivity Disorder, Hx Eating Disorder, Hx Panic Disorder, Hx Schizophrenia, Hx Substance Abuse - Surgical History Surgery Procedure, Year, and Place: 2011-CATARACT EXTRACTION. GALLBLADDER REMOVED Hx Anesthesia Reactions: No - Immunization History Date of Tetanus Vaccine: Unknown Date of Influenza Vaccine: 04/2017 Infectious Disease History: No Infectious Disease History: Denies: Hx Clostridium Difficile, Hx Hepatitis, Hx Human Immunodeficiency Virus (HIV), Hx of Known/Suspected MRSA, Hx Shingles, Hx Tuberculosis, Hx Known/ Suspected VRE, Hx Known/Suspected VRSA, History Other Infectious Disease, Traveled Outside the [place] in Last 30 Days - Family History Known Family History: Positive: Other - Anxiety and depression, [place] - father Negative: Cardiac Disease, Hypertension, Diabetes Family History: Depression and anxiety - Social History Occupation: Disabled Lives: [employer] Alcohol Use: None Hx Substance Use: Yes Substance Use Type: Reports: None Hx Tobacco Use: Yes Smoking Status (MU): Current Some Day Smoker Type: Cigarettes Amount Used/How Often: 1/2 PPD FOR LAST 30 DAYS, NO OTHER TOBACCO Length of Time of Smoking/Using Tobacco: 2 year ago Have You Smoked in the Last Year: Yes - Patient has smoked within the last 30 days Review of Systems Positive: Fatigue. Negative: Fever, Chills Positive: Blurred Vision. Negative: Erythema Positive: Other - "bad taste in mouth". Negative: Sore Throat Negative: Chest Pain Positive: Cough. Negative: Shortness Of Breath Positive: Abdominal Pain. Negative: Vomiting, Nausea Negative: dysuria, flank pain Negative: Myalgia, Edema Negative: Rash Neurological: Other - NEGATIVE: Dizziness Positive: Weakness All Other Systems Reviewed And Are Negative: Yes Physical Exam - Summary Physical Exam Summary: Constitutional: Well-developed, Well-nourished, Alert. (-) Distressed Skin: Warm, Dry HENT: Normocephalic; Atraumatic Eyes: Conjunctiva normal Neck: Musculoskeletal ROM normal neck. (-) JVD, (-) Stridor, (-) Tracheal deviation Cardio: Rhythm regular, rate normal, Heart sounds normal; Intact distal pulses; The pedal pulses are 2+ and symmetric. Radial pulses are 2+ and symmetric. (-) Murmur Pulmonary/Chest wall: Effort normal. (-) Respiratory distress, (-) Wheezes, (-) Rales Abd: Soft, (-) epigastric tenderness, (-) Distension, (-) Guarding, (-) Rebound Musculoskeletal: (-) Edema Lymph: (-) Cervical adenopathy Neuro: Alert, Oriented x3 Psych: Mood and affect Normal Triage Information Reviewed: Yes Vital Signs On Initial Exam: Initial Vitals Temp Pulse Resp BP Pulse Ox 97.8 F 81 16 112/82 97 05/11/18 18:10 05/11/18 18:10 05/11/18 18:10 05/11/18 18:10 05/11/18 18:10 Vital Signs Reviewed: Yes Diagnostics - Vital Signs Vital Signs Temp Pulse Resp BP Pulse Ox 05/11/18 21:42 73 19 144/77 92 05/11/18 21:12 70 19 140/91 93 05/11/18 21:00 74 23 96 05/11/18 20:42 69 17 174/87 92 05/11/18 20:41 68 17 95 05/11/18 18:10 97.8 F 81 16 112/82 97 - Laboratory Lab Results: Lab Results 05/11/18 05/11/18 05/11/18 Range/Units 18:38 18:38 18:38 WBC 8.5 (3.5-10.8) 10^3/ul RBC 4.28 (4.00-5.40) 10^6/ul Hgb 12.0 (12.0-16.0) g/dl Hct 37 (35-47) % MCV 87 (80-97) fL MCH 28 (27-31) pg MCHC 32 (31-36) g/dl RDW 17 H (10.5-15) % Plt Count 222 (150-450) 10^3/ul MPV 9.7 (7.4-10.4) um3 Neut % (Auto) 71.3 (38-83) % Lymph % (Auto) 22.0 L (25-47) % Mora % (Auto) 3.7 (0-7) % Eos % (Auto) 2.4 (0-6) % Baso % (Auto) 0.6 (0-2) % Absolute Neuts (auto) 6.1 (1.5-7.7) 10^3/ul Absolute Lymphs (auto) 1.9 (1.0-4.8) 10^3/ul Absolute Monos (auto) 0.3 (0-0.8) 10^3/ul Absolute Eos (auto) 0.2 (0-0.6) 10^3/ul Absolute Basos (auto) 0.1 (0-0.2) 10^3/ul Absolute Nucleated RBC 0 10^3/ul Nucleated RBC % 0 VBG pH (7.33-7.43) VBG pCO2 (41-51) mmHg VBG pO2 (35-45) mmHg VBG HCO3 (24-28) mmol/L VBG O2 Saturation (70-80) % VBG Base Excess (0-4) Sodium 134 L (135-145) mmol/L Potassium 4.9 (3.5-5.0) mmol/L Chloride 102 (101-111) mmol/L Carbon Dioxide 27 (22-32) mmol/L Anion Gap 5 (2-11) mmol/L BUN 13 (6-24) mg/dL Creatinine 0.87 (0.51-0.95) mg/dL Est GFR ( Amer) 83.1 (>60) Est GFR (Non-Af Amer) 68.6 (>60) BUN/Creatinine Ratio 14.9 (8-20) Glucose 546 H* (70-100) mg/dL Lactic Acid 1.8 (0.5-2.0) mmol/L Calcium 8.7 (8.6-10.3) mg/dL Total Bilirubin 0.30 (0.2-1.0) mg/dL AST 41 H (13-39) U/L ALT 40 (7-52) U/L Alkaline Phosphatase 189 H (34-104) U/L C-Reactive Protein 8.80 H (<8.01) mg/L Total Protein 6.3 L (6.4-8.9) g/dL Albumin 3.5 (3.2-5.2) g/dL Globulin 2.8 (2-4) g/dL Albumin/Globulin Ratio 1.3 (1-3) Urine Color Urine Appearance Urine pH (5-9) Ur Specific [place] (1.010-1.030) Urine Protein (Negative) Urine Ketones (Negative) Urine Blood (Negative) Urine Nitrate (Negative) Urine Bilirubin (Negative) Urine Urobilinogen (Negative) Ur Leukocyte Esterase (Negative) Urine Glucose (Negative) 05/11/18 05/11/18 Range/Units 18:38 19:26 WBC (3.5-10.8) 10^3/ul RBC (4.00-5.40) 10^6/ul Hgb (12.0-16.0) g/dl Hct (35-47) % MCV (80-97) fL MCH (27-31) pg MCHC (31-36) g/dl RDW (10.5-15) % Plt Count (150-450) 10^3/ul MPV (7.4-10.4) um3 Neut % (Auto) (38-83) % Lymph % (Auto) (25-47) % Mora % (Auto) (0-7) % Eos % (Auto) (0-6) % Baso % (Auto) (0-2) % Absolute Neuts (auto) (1.5-7.7) 10^3/ul Absolute Lymphs (auto) (1.0-4.8) 10^3/ul Absolute Monos (auto) (0-0.8) 10^3/ul Absolute Eos (auto) (0-0.6) 10^3/ul Absolute Basos (auto) (0-0.2) 10^3/ul Absolute Nucleated RBC 10^3/ul Nucleated RBC % VBG pH 7.37 (7.33-7.43) VBG pCO2 47 (41-51) mmHg VBG pO2 39 (35-45) mmHg VBG HCO3 25.3 (24-28) mmol/L VBG O2 Saturation 76.1 (70-80) % VBG Base Excess 1.3 (0-4) Sodium (135-145) mmol/L Potassium (3.5-5.0) mmol/L Chloride (101-111) mmol/L Carbon Dioxide (22-32) mmol/L Anion Gap (2-11) mmol/L BUN (6-24) mg/dL Creatinine (0.51-0.95) mg/dL Est GFR ( Amer) (>60) Est GFR (Non-Af Amer) (>60) BUN/Creatinine Ratio (8-20) Glucose (70-100) mg/dL Lactic Acid (0.5-2.0) mmol/L Calcium (8.6-10.3) mg/dL Total Bilirubin (0.2-1.0) mg/dL AST (13-39) U/L ALT (7-52) U/L Alkaline Phosphatase (34-104) U/L C-Reactive Protein (<8.01) mg/L Total Protein (6.4-8.9) g/dL Albumin (3.2-5.2) g/dL Globulin (2-4) g/dL Albumin/Globulin Ratio (1-3) Urine Color Yellow Urine Appearance Cloudy Urine pH 6.0 (5-9) Ur Specific [place] 1.021 (1.010-1.030) Urine Protein Negative (Negative) Urine Ketones Negative (Negative) Urine Blood Negative (Negative) Urine Nitrate Negative (Negative) Urine Bilirubin Negative (Negative) Urine Urobilinogen Negative (Negative) Ur Leukocyte Esterase Negative (Negative) Urine Glucose 3+(>=500 mg/dl) A (Negative) Result Diagrams: 05/11/18 18:38 05/11/18 18:38 Lab Statement: Any lab studies that have been ordered have been reviewed, and results considered in the medical decision making process. - CT A/P CT Interpretation: No Acute Changes CT Interpretation Completed By: Radiologist - No evidence for acute diverticulitis and no other signs of bowel inflammatory change. Dr. St has reviewed this report. Diabetic Course/Dx - Course Course Of Treatment: A 52-year-old F presents to the ED with a CC of hyperglycemia since this AM. (+) bad taste in mouth, fatigue, worsening blurred vision, abd pain, mild cough. (-) CP, SOB, melena. Bread diet started yesterday s/p ED visit for abd pain; she attributes diabetic problems to diet change. A CT A/P reveals no evidence for acute diverticulitis and no other signs of bowel inflammatory change. In the ED course, pt was given tylenol, insulin, and contrast. Pt labs show high RDW, low lymph %, low Na+, high glucose of 546, high AST, high alkaline phosphatase, low total protein, high CRP, and urine glucose. - Diagnoses Provider Diagnoses: Hyperglycemia Discharge - Sign-Out/Discharge Documenting (check all that apply): Patient Departure - discharge - Discharge Plan Condition: Stable Disposition: HOME Patient Education Materials: Diabetic Hyperglycemia (ED) Referrals: Chapo Aguila MD [Primary Care Provider] - Additional Instructions: Return to the emergency department for any new or worsening symptoms. Sliding scale needs to be increased by 2 units. Further modifications by the facility provider tomorrow morning. Follow up with your primary care provider in 2 days. - Attestation Statements Document Initiated by Scribe: Yes Documenting Scribe: Ramon Christensen Provider For Whom Noam is Documenting (Include Credential): Dr. Brian St MD Scribe Attestation: Ramon Rosales scrcristelaed for Dr. Brian St MD on 05/11/18 at 2238.
[2018-05-11 22:28] VITALS: BP 141/82
[2018-05-11] MEDS ORDERED: Insulin REGULAR(*) 1 UNITS UNIT ONE (23:04)
== END 2018-05-11 23:22 | disposition home or self-care (01) ==
LOC: ED 18:06
DX: E11.65 Type 2 diabetes mellitus with hyperglycemia (principal); R53.83 Other fatigue; H53.8 Other visual disturbances; K21.9 Gastro-esophageal reflux disease without esophagitis; F41.9 Anxiety disorder, unspecified; F32.9 Major depressive disorder, single episode, unspecified; Z88.0 Allergy status to penicillin; Z88.2 Allergy status to sulfonamides; Z88.8 Allergy status to other drugs, medicaments and biological substances; Z88.1 Allergy status to other antibiotic agents; Z91.040 Latex allergy status; Z72.0 Tobacco use
CPT/HCPCS: 36415; 74177; 80053; 81003; 82803; 82947; 83605; 85025; 86140; 96372; 99284; A9270-GY; Q9967

== ENCOUNTER → 2018-05-18 14:06 | Emergency (ER) | payer MEDICARE, MEDICAID ==
[~2018-05-18 14:06] MED LIST changes: +Al Hydrox/Mg Hydrox/Simet LIQ* 30 ML UDC PO ONE; -Charcoal ACTIVATED* 25 GM/120 ML BTL ONE; -Charcoal ACTIVATED* 25 GM/120 ML BTL PO ONE; +Lidocaine 2% VISCOUS* 15 ML UDC PO ONE
--- NOTE | 2018-05-18 14:50 | ED ---
Abdominal Pain/Female - HPI Summary HPI Summary: This patient is a 52 year old F BIBA to [facility] [place]/o [place] for the past 2 days. The patient rates the pain 7/10 in severity and states it radiates into her back. Patient reports epigastric pain, decreased appetite, and sludge like BM. Patient denies CP, and SOB. BG per EMS 290. She was seen recently for these sx but the vomiting is new. She is taking 40 units of atlantis and metformin. Hx pancreatitis, gastroparesis, cholecystitis, and cholecystectomy. She doesnt drink eoth. The patient's report is somewhat inconsistent through out the exam. - History of Current Complaint Chief Complaint: EDAbdPain Stated Complaint: ABD PAIN Time Seen by Provider: 05/18/18 14:11 Hx Obtained From: Patient Hx Last Menstrual Period: "last month" Onset/Duration: Lasting Days, Still Present Timing: Constant Severity Initially: Moderate Severity Currently: Moderate Pain Intensity: 6 Pain Scale Used: 0-10 Numeric Location: Epigastric Radiates: Yes Radiates to: Back Associated Signs and Symptoms: Positive: Negative - SOB, Nausea, Vomiting, Diarrhea. Negative: Chest Pain Allergies/Adverse Reactions: Allergies Allergy/AdvReac Type Severity Reaction Status Date / Time ciprofloxacin Allergy Dizziness Verified 10/10/17 11:22 latex Allergy Rash Verified 10/10/17 11:22 lithium Allergy See Comment Verified 10/10/17 11:22 [email or web address] Allergy Unknown Verified 10/10/17 11:22 Reaction Details Penicillins Allergy Rash Verified 10/10/17 11:22 perphenazine Allergy Unknown Verified 10/10/17 11:22 Reaction Details Sulfa (Sulfonamide Allergy Hives Verified 10/10/17 11:22 Antibiotics) tramadol Allergy Altered Verified 10/10/17 11:22 Mental Status ENVIRONMENTAL Allergy Mild SINUS Uncoded 10/10/17 11:22 PMH/Surg Hx/FS Hx/Imm Hx Endocrine/Hematology History: Reports: Hx Diabetes, Hx Thyroid Disease, Other Endocrine/Hematological Disorders - Chronic pancreatitis Denies: Hx Anticoagulant Therapy Cardiovascular History: Reports: Hx Hypertension - NO MEDICATION FOR PER PATIENT , Other Cardiovascular Problems/Disorders - HX OF PSVT 04/2008 Denies: Hx Pacemaker/ICD Respiratory History: Reports: Hx Asthma, Hx Seasonal Allergies, Hx Sleep Apnea - HX OF IN THE PAST Denies: Hx Chronic Bronchitis, Hx Chronic Obstructive Pulmonary Disease (COPD ), Hx Cystic Fibrosis, Hx Lung Cancer, Hx Pleural Effusion, Hx Pneumonia, Hx Pulmonary Edema, Hx Pulmonary Embolism, Other Respiratory Problems/Disorders GI History: Reports: Hx Gall Bladder Disease, Hx Gastroesophageal Reflux Disease - ON MEDICATION FOR, Hx Gastrointestinal Bleed, Hx Irritable Bowel, Other GI Disorders - HX OF pancreatitis- STATES LAST ABOUT 2 WEEKS AGO- STATES SLIGHT CASE Denies: Hx Ulcer History: Denies: Hx Dialysis, Hx Renal Disease Musculoskeletal History: Reports: Hx Arthritis, Hx Back Problems, Other Musculoskeletal History - GEN MUSCULOSKELETAL PAIN Denies: Hx Rheumatoid Arthritis, Hx Bursitis, Hx Congenital Bone Abnormalities, Hx Fibromyalgia, Hx Gout, Hx Orthopedic Injury, Hx Osteoporosis, Hx Scoliosis, Hx Tendonitis Sensory History: Reports: Hx Vision Problem Denies: Hx Cataracts, Hx Contacts or Glasses, Hx Eye Injury, Hx Eye Prosthesis, Hx Glaucoma, Hx Macular Degeneration, Hx Hearing Aid, Other Sensory Impairments Opthamlomology History: Reports: Hx Vision Problem Denies: Hx Cataracts, Hx Contacts or Glasses, Hx Eye Injury, Hx Eye Prosthesis, Hx Glaucoma, Hx Macular Degeneration, Other Sensory Impairments Neurological History: Reports: Hx Developmental Delay - intellectual disability , Hx Seizures - STATES WITH ALLERGIC REACTION TO TRAMADOL Denies: Hx Dementia, Hx Headaches, Other Neuro Impairments/Disorders Psychiatric History: Reports: Hx Anxiety - ON MEDICATION FOR, Hx Depression - ON MEDICATION FOR, Hx Post Traumatic Stress Disorder, Hx Inpatient Treatment, Hx Community Mental Health Tx, Hx Bipolar Disorder - pt manic, Hx Suicide Attempt - past med overdoses, Hx of Violent Episodes Against Others, Other Psychiatric Issues/Disorders - PSYCHOSIS NOS, HX OF PTSD, SCHIZOAFFECTIVE DISORDER, BORDERLINE PERSONALITY Denies: Hx Attention Deficit Hyperactivity Disorder, Hx Eating Disorder, Hx Panic Disorder, Hx Schizophrenia, Hx Substance Abuse - Surgical History Surgery Procedure, Year, and Place: 2011-CATARACT EXTRACTION. GALLBLADDER REMOVED Hx Anesthesia Reactions: No - Immunization History Date of Tetanus Vaccine: Unknown Date of Influenza Vaccine: 04/2017 Infectious Disease History: No Infectious Disease History: Denies: Hx Clostridium Difficile, Hx Hepatitis, Hx Human Immunodeficiency Virus (HIV), Hx of Known/Suspected MRSA, Hx Shingles, Hx Tuberculosis, Hx Known/ Suspected VRE, Hx Known/Suspected VRSA, History Other Infectious Disease, Traveled Outside the [place] in Last 30 Days - Family History Known Family History: Positive: Other - Anxiety and depression, [place] - father Negative: Cardiac Disease, Hypertension, Diabetes Family History: Depression and anxiety - Social History Alcohol Use: None Hx Substance Use: Yes Substance Use Type: Reports: None Hx Tobacco Use: Yes Smoking Status (MU): Current Some Day Smoker Type: Cigarettes Amount Used/How Often: 1/2 PPD FOR LAST 30 DAYS, NO OTHER TOBACCO Length of Time of Smoking/Using Tobacco: 2 year ago Have You Smoked in the Last Year: Yes - Patient has smoked within the last 30 days Review of Systems Negative: Fever, Chills Negative: Erythema Negative: Sore Throat Negative: Chest Pain Negative: Shortness Of Breath, Cough Gastrointestinal: Other - decreased appetite. Positive: Abdominal Pain, Vomiting, Diarrhea - sludge like , Nausea Negative: dysuria, hematuria Negative: Myalgia, Edema Negative: Rash Neurological: Negative - dizziness All Other Systems Reviewed And Are Negative: Yes Physical Exam - Summary Physical Exam Summary: Constitutional: Well-developed, Well-nourished, Alert. (-) Distressed Skin: Warm, Dry HENT: Normocephalic; Atraumatic Eyes: Conjunctiva normal Neck: Musculoskeletal ROM normal neck. (-) JVD, (-) Stridor, (-) Tracheal deviation Cardio: Rhythm regular, rate normal, Heart sounds normal; Intact distal pulses; The pedal pulses are 2+ and symmetric. Radial pulses are 2+ and symmetric. (-) Murmur Pulmonary/Chest wall: Effort normal. (-) Respiratory distress, (-) Wheezes, (-) Rales Abd: Soft, (-) epigastric tenderness, (-) Distension, (-) Guarding, (-) Rebound Musculoskeletal: (-) Edema Lymph: (-) Cervical adenopathy Neuro: Alert, Oriented x3 Psych: Mood and affect Normal Triage Information Reviewed: Yes Vital Signs On Initial Exam: Initial Vitals Temp Pulse Resp BP Pulse Ox 98.2 F 84 20 130/85 97 05/18/18 14:11 05/18/18 14:11 05/18/18 14:11 05/18/18 14:11 05/18/18 14:11 Vital Signs Reviewed: Yes Diagnostics - Vital Signs Vital Signs Temp Pulse Resp BP Pulse Ox 05/18/18 14:24 83 16 130/85 97 05/18/18 14:21 12 05/18/18 14:11 98.2 F 84 20 130/85 97 - Laboratory Result Diagrams: 05/18/18 16:22 05/18/18 16:22 Lab Statement: Any lab studies that have been ordered have been reviewed, and results considered in the medical decision making process. - Radiology CXR Radiology Interpretation Completed By: Radiologist - NO EVIDENCE FOR ACUTE DISEASE. ED physician has reviewed this radiology report. - EKG 1626 Cardiac Rate: NL EKG Rhythm: Sinus Rhythm - at 85 BPM EKG Interpretation: no STEMI Abdominal Pain Fem Course/Dx - Course Course Of Treatment: This patient is a 52 year old F BIBA to [facility] [place] for the past 2 days. The patient rates the pain 7/10 in severity and states it radiates into her back. Patient reports epigastric pain, decreased appetite, and sludge like BM. Patient denies CP, and SOB. BG per EMS 290. She was seen recently for these sx but the vomiting is new. She is taking 40 units of atlantis and metformin. Hx pancreatitis, gastroparesis, cholecystitis, and cholecystectomy. She doesnt drink eoth. . An EKG reveals NSR at 85 BPM. CXR reveals, per radiologist, NO EVIDENCE FOR ACUTE DISEASE. ED physician has reviewed this radiology report. She tolerated PO in the ED this could be related to her known history of gastroparesis, I will restart her maalox, Carafate, and Zofran,. Blood work obtained in the ED. In the ED course the patient was given lidocaine and maalox. Patient will be discharged with prescription for maalox, Carafate, and Zofran and follow up from PCP. The patient is agreeable with this plan. - Diagnoses Provider Diagnoses: Abdominal pain, Vomiting Discharge - Sign-Out/Discharge Documenting (check all that apply): Patient Departure - Discharge Plan Condition: Stable Disposition: HOME Prescriptions: Al Hydrox/Mg Hydrox/Simet LIQ* [Maalox Plus*] 30 ml PO Q4H PRN #400 ml PRN Reason: Pain - Severe Ondansetron TAB* [Zofran 4 MG Tab*] 4 mg PO Q8H PRN #12 tab PRN Reason: Nausea/Vomiting Sucralfate TAB* [Carafate*] 1 gm PO BID #14 tab Patient Education Materials: Acute Abdominal Pain (ED) Referrals: Chapo Aguila MD [Primary Care Provider] - 2 Days Additional Instructions: RETURN TO THE EMERGENCY DEPARTMENT FOR CHANGING OR WORSENING SYMPTOMS - Attestation Statements Document Initiated by Scribe: Yes Documenting Scribe: Bryce Talbert Provider For Whom Scribe is Documenting (Include Credential): Brian St MD Scribe Attestation: Bryce Rosales, scribed for Brian St MD on 05/18/18 at 1705.
--- NOTE | 2018-05-18 16:08 | RAD ---
INDICATION: Epigastric pain. COMPARISON: Comparison is made with a prior study from November 02, 2017. TECHNIQUE: A portable view of the chest was obtained. FINDINGS: Cardiac and mediastinal contours appear to be within normal limits. The lungs are clear. No pleural effusion is seen. No free intraperitoneal air is seen. IMPRESSION: NO EVIDENCE FOR ACUTE DISEASE.
[2018-05-18 16:31] LABS: ABS Basophils 0.1 10^3/ul (0-0.2); ABS Eosinophils 0.3 10^3/ul (0-0.6); ABS Lymphocytes 2.9 10^3/ul (1.0-4.8); ABS Monocytes 0.4 10^3/ul (0-0.8); ABS Neutrophils 7.2 10^3/ul (1.5-7.7); ABS Nucleated RBC 0 10^3/ul; Eosinophil % 2.6 % (0-6); Hematocrit 37 % (35-47); Hemoglobin 12.4 g/dl (12.0-16.0); Lymphocyte % 26.6 % (25-47); Mean Corpuscular HGB Conc 33 g/dl (31-36); Mean Corpuscular Hemoglobin 29 pg (27-31); Mean Corpuscular Volume 86 fL (80-97); Mean Platelet Volume 9.6 um3 (7.4-10.4); Nucleated Red Blood Cells % 0.1; Platelet Count 244 10^3/ul (150-450); Red Blood Count 4.33 10^6/ul (4.00-5.40); Red Cell Distribution Width 18 % (10.5-15); White Blood Count 10.8 10^3/ul (3.5-10.8)
[2018-05-18 16:48] LABS: EGFR Non-African American 81.5 (>60)
[2018-05-18 16:54] VITALS: BP 138/84
== END | disposition home or self-care (01) ==
LOC: ED 14:06
DX: R10.13 Epigastric pain (principal); R11.10 Vomiting, unspecified; F20.9 Schizophrenia, unspecified; F60.3 Borderline personality disorder; F41.9 Anxiety disorder, unspecified; F32.9 Major depressive disorder, single episode, unspecified; F79 Unspecified intellectual disabilities; E11.9 Type 2 diabetes mellitus without complications; E07.9 Disorder of thyroid, unspecified; K86.1 Other chronic pancreatitis
CPT/HCPCS: 36415; 71045; 80053; 83605; 83690; 85025; 93005; 99282; A9270-GY

== ENCOUNTER 2018-06-26 20:34 | Emergency (ER) | payer MEDICARE, MEDICAID ==
--- NOTE | 2018-06-26 20:50 | ED ---
HPI Diabetic - HPI Summary HPI Summary: The pt is a 52 y/o female presenting to [facility] c/o hyperglycemia reaching 300- 400 mg/dL . She self-administered 80 units of insulin at 16:30 hrs out of frustration leading to hypoglycemia. She notes cough, nasal congestion, fatigue , sleepiness and increasingly blurred vision. Per EMS , her FSBG was at 65 mg/ dL .She was given Cranberry juice en route which elevated the level to 118mg/ dl upon arrival. - History Of Current Complaint Hx Obtained From: Patient, EMS Hx Last Menstrual Period: "last month" Onset/Duration: Sudden Onset, Still Present, Worse Since - 16:30 hrs today Aggravating: Medication Change Alleviating: EMS Treatment, Food - Cranberry juice Related History: DM II, Insulin Requiring - Allergies/Home Medications Allergies/Adverse Reactions: Allergies Allergy/AdvReac Type Severity Reaction Status Date / Time ciprofloxacin Allergy Dizziness Verified 10/10/17 11:22 latex Allergy Rash Verified 10/10/17 11:22 lithium Allergy See Comment Verified 10/10/17 11:22 [email or web address] Allergy Unknown Verified 10/10/17 11:22 Reaction Details Penicillins Allergy Rash Verified 10/10/17 11:22 perphenazine Allergy Unknown Verified 10/10/17 11:22 Reaction Details Sulfa (Sulfonamide Allergy Hives Verified 10/10/17 11:22 Antibiotics) tramadol Allergy Altered Verified 10/10/17 11:22 Mental Status ENVIRONMENTAL Allergy Mild SINUS Uncoded 10/10/17 11:22 PMH/Surg Hx/FS Hx/Imm Hx Previously Healthy: No Endocrine/Hematology History: Reports: Hx Diabetes, Hx Thyroid Disease, Other Endocrine/Hematological Disorders - Chronic pancreatitis Denies: Hx Anticoagulant Therapy Cardiovascular History: Reports: Hx Hypertension - NO MEDICATION FOR PER PATIENT , Other Cardiovascular Problems/Disorders - HX OF PSVT 04/2008 Denies: Hx Pacemaker/ICD Respiratory History: Reports: Hx Asthma, Hx Seasonal Allergies, Hx Sleep Apnea - HX OF IN THE PAST Denies: Hx Chronic Bronchitis, Hx Chronic Obstructive Pulmonary Disease (COPD ), Hx Cystic Fibrosis, Hx Lung Cancer, Hx Pleural Effusion, Hx Pneumonia, Hx Pulmonary Edema, Hx Pulmonary Embolism, Other Respiratory Problems/Disorders GI History: Reports: Hx Gall Bladder Disease, Hx Gastroesophageal Reflux Disease - ON MEDICATION FOR, Hx Gastrointestinal Bleed, Hx Irritable Bowel, Other GI Disorders - HX OF pancreatitis- STATES LAST ABOUT 2 WEEKS AGO- STATES SLIGHT CASE Denies: Hx Ulcer History: Denies: Hx Dialysis, Hx Renal Disease Musculoskeletal History: Reports: Hx Arthritis, Hx Back Problems, Other Musculoskeletal History - GEN MUSCULOSKELETAL PAIN Denies: Hx Rheumatoid Arthritis, Hx Bursitis, Hx Congenital Bone Abnormalities, Hx Fibromyalgia, Hx Gout, Hx Orthopedic Injury, Hx Osteoporosis, Hx Scoliosis, Hx Tendonitis Sensory History: Reports: Hx Vision Problem Denies: Hx Cataracts, Hx Contacts or Glasses, Hx Eye Injury, Hx Eye Prosthesis, Hx Glaucoma, Hx Macular Degeneration, Hx Hearing Aid, Other Sensory Impairments Opthamlomology History: Reports: Hx Vision Problem Denies: Hx Cataracts, Hx Contacts or Glasses, Hx Eye Injury, Hx Eye Prosthesis, Hx Glaucoma, Hx Macular Degeneration, Other Sensory Impairments Neurological History: Reports: Hx Developmental Delay - intellectual disability , Hx Seizures - STATES WITH ALLERGIC REACTION TO TRAMADOL Denies: Hx Dementia, Hx Headaches, Other Neuro Impairments/Disorders Psychiatric History: Reports: Hx Anxiety - ON MEDICATION FOR, Hx Depression - ON MEDICATION FOR, Hx Post Traumatic Stress Disorder, Hx Inpatient Treatment, Hx Community Mental Health Tx, Hx Bipolar Disorder - pt manic, Hx Suicide Attempt - past med overdoses, Hx of Violent Episodes Against Others, Other Psychiatric Issues/Disorders - PSYCHOSIS NOS, HX OF PTSD, SCHIZOAFFECTIVE DISORDER, BORDERLINE PERSONALITY Denies: Hx Attention Deficit Hyperactivity Disorder, Hx Eating Disorder, Hx Panic Disorder, Hx Schizophrenia, Hx Substance Abuse - Cancer History Cancer Type, Location and Year: None reported - Surgical History Surgery Procedure, Year, and Place: 2011-CATARACT EXTRACTION. GALLBLADDER REMOVED Hx Anesthesia Reactions: No - Immunization History Date of Tetanus Vaccine: Unknown Date of Influenza Vaccine: 04/2017 Infectious Disease History: Denies: Hx Clostridium Difficile, Hx Hepatitis, Hx Human Immunodeficiency Virus (HIV), Hx of Known/Suspected MRSA, Hx Shingles, Hx Tuberculosis, Hx Known/ Suspected VRE, Hx Known/Suspected VRSA, History Other Infectious Disease - Family History Known Family History: Positive: Other - Anxiety and depression, [place] - father Negative: Cardiac Disease, Hypertension, Diabetes Family History: Depression and anxiety - Social History Occupation: Unemployed, Disabled Lives: Assisted Living [facility] Alcohol Use: None Hx Substance Use: Yes Substance Use Type: Reports: None Hx Tobacco Use: Yes Smoking Status (MU): Current Some Day Smoker Type: Cigarettes Amount Used/How Often: 1/2 PPD FOR LAST 30 DAYS, NO OTHER TOBACCO Length of Time of Smoking/Using Tobacco: 2 year ago Have You Smoked in the Last Year: Yes - Patient has smoked within the last 30 days Review of Systems Constitutional: Other - Positive: Hyperglycemia followed by hypoglycemia, sleepiness Positive: Fatigue Positive: Blurred Vision Positive: Other - Positive: Nasal congestion Positive: Cough Positive: no symptoms reported All Other Systems Reviewed And Are Negative: Yes Physical Exam - Summary Physical Exam Summary: Appearance: The patient is well-nourished in no acute distress and in no acute pain. Skin: The skin is warm and dry and skin color reflects adequate perfusion. HEENT: The head is normocephalic and atraumatic. The pupils are equal and reactive. The conjunctivae are clear and without drainage. Nares are patent and without drainage. Mouth reveals moist mucous membranes and the throat is without erythema and exudate. The external ears are intact. The ear canals are patent and without drainage. The tympanic membranes are intact. Neck: The neck is supple with full range of motion and non-tender. There are no carotid bruits. There is no neck vein distension. Respiratory: Chest is non-tender. Lungs are clear to auscultation and breath sounds are symmetrical and equal. Cardiovascular: Heart is regular rate and rhythm. There is no murmur or rub auscultated. There is no peripheral edema and pulses are symmetrical and equal. Abdomen: The abdomen is soft and non-tender. There are normal bowel sounds heard in all four quadrants and there is no organomegaly palpated. Musculoskeletal: There is no back tenderness noted. Extremities are non-tender with full range of motion. There is good capillary refill. There is no peripheral edema or calf tenderness elicited. Neurological: Patient is alert and oriented to person, place and time. The patient has symmetrical motor strength in all four extremities. Cranial nerves are grossly intact. Deep tendon reflexes are symmetrical and equal in all four extremities. Psychiatric: The patient has an appropriate affect and does not exhibit any anxiety or depression. Triage Information Reviewed: Yes Vital Signs On Initial Exam: Initial Vital Signs Temp 96.5 F 06/26/18 20:39 Pulse 93 06/26/18 20:39 Resp 16 06/26/18 20:39 BP 163/100 06/26/18 20:39 Pulse Ox 97 06/26/18 20:39 Vital Signs Reviewed: Yes Diagnostics - Laboratory Result Diagrams: 06/26/18 21:00 06/26/18 20:59 Lab Statement: Any lab studies that have been ordered have been reviewed, and results considered in the medical decision making process. - EKG 21:53 Cardiac Rate: NL - 90 bpm EKG Rhythm: Sinus Rhythm ST Segment: Normal Ectopy: None Diabetic Course/Dx - Course Course Of Treatment: Pt signed out to Dr. Neo Steinberg MD at the change of shift due to pending ab results and dispo. Her initial lab results are okay and I recommended that she receive a mental health eval. She will likely need a fingerstick in a little while just to make sure that she still trending the right direction. - Diagnoses Provider Diagnoses: Unspecified mood [affective] disorder Discharge - Sign-Out/Discharge Documenting (check all that apply): Sign-Out Patient Signing out patient TO: Neo Steinberg - 22:00 hrs - Discharge Plan Condition: Stable Referrals: Chapo Aguila MD [Primary Care Provider] - - Billing Disposition and Condition Condition: STABLE - Attestation Statements Document Initiated by Scribe: Yes Documenting Scribe: Herlinda Harris Provider For Whom Scribe is Documenting (Include Credential): Dr. Neo Kauffman MD Scribe Attestation: Herlinda Rosales , scribed for Dr. Neo Kauffman MD on 06/26/18 at 2143. Scribe Documentation Reviewed: Yes Provider Attestation: The documentation as recorded by the scribe, Herlinda Harris accurately reflects the service I personally performed and the decisions made by me, Dr. Neo Kauffman MD
[2018-06-26 21:34] LABS: ABS Basophils 0 10^3/ul (0-0.2); ABS Eosinophils 0.9 10^3/ul (0-0.6); ABS Lymphocytes 2.6 10^3/ul (1.0-4.8); ABS Monocytes 0.6 10^3/ul (0-0.8); ABS Neutrophils 6.8 10^3/ul (1.5-7.7); ABS Nucleated RBC 0 10^3/ul; Eosinophil % 8.3 %; Hematocrit 39 % (35-47); Hemoglobin 12.4 g/dl (12.0-16.0); Lymphocyte % 24.1 %; Mean Corpuscular HGB Conc 32 g/dl (31-36); Mean Corpuscular Hemoglobin 28 pg (27-31); Mean Corpuscular Volume 88 fL (80-97); Mean Platelet Volume 9.5 fL (7.4-10.4); Nucleated Red Blood Cells % 0; Platelet Count 220 10^3/ul (150-450); Red Blood Count 4.42 10^6/ul (4.00-5.40); Red Cell Distribution Width 17 % (10.5-15); White Blood Count 10.9 10^3/ul (3.5-10.8)
[2018-06-26 22:22] LABS: Urine Appearance Clear; Urine Blood Negative (Negative); Urine Color Straw; Urine Ketones Negative (Negative); Urine Protein Negative (Negative); Urine Specific Gravity 1.005 (1.010-1.030); Urine Urobilinogen Negative (Negative)
--- NOTE | 2018-06-26 22:24 | ED ---
Progress - Progress Note Progress Note: RECEIVED PATIENT SIGN-OUT, FROM DR. KAUFFMAN AT SHIFT CHANGE, PENDING LABS AND DISPO Course/Dx - Course Course Of Treatment: RECEIVED PATIENT SIGN-OUT, FROM DR. KAUFFMAN AT SHIFT CHANGE, PENDING LABS AND DISPO. Pt is a 52 y/o F presenting with insulin overdose. She administered 80 units of insulin at 1630. In ED, POC glucose: 98. UA results and toxicology are negative. Will discharge patient home. - Diagnoses Provider Diagnoses: Borderline personality disorder Discharge - Sign-Out/Discharge Documenting (check all that apply): Patient Departure - DC, Receiving Sign-Out Receiving patient FROM: Neo Kauffman - pending labs - Discharge Plan Condition: Good Disposition: HOME Referrals: Chapo Aguila MD [Primary Care Provider] - 1 Day - Billing Disposition and Condition Condition: GOOD Disposition: Home - Attestation Statements Document Initiated by Scribe: Yes Documenting Scribe: Rober Borja Provider For Whom Scribe is Documenting (Include Credential): Dr. Neo Steinberg MD Scribe Attestation: Rober Rosales, scribed for Dr. Neo Steinberg MD on 06/27/18 at 0502. Scribe Documentation Reviewed: Yes Provider Attestation: The documentation as recorded by the Rober roth accurately reflects the service I personally performed and the decisions made by me, Dr. Neo Steinberg MD
[2018-06-27 01:43] VITALS: BP 136/74
== END 2018-06-27 01:42 | disposition home or self-care (01) ==
LOC: ED 20:34
DX: F39 Unspecified mood [affective] disorder (principal); F60.3 Borderline personality disorder; Z91.040 Latex allergy status; Z88.0 Allergy status to penicillin; I10 Essential (primary) hypertension; Z72.0 Tobacco use; R05 Cough
CPT/HCPCS: 36415; 80053; 80307; 80320; 80329; 81003; 83605; 85025; 93005; 99284; G0480

== ENCOUNTER 2018-06-27 20:59 | Emergency (ER) | payer MEDICARE, MEDICAID ==
--- NOTE | 2018-06-27 21:41 | ED ---
Psychiatric Complaint - HPI Summary HPI Summary: A 52 y/o female brought in by ambulance presents to the ED s/p cutting herself reaching 8/10 in severity. Currently, the patient feels good, but she noted that can change as she has a disorder. As per triage, "52 F, [facility] resident with hx of depression, anxiety, and shizophrenia.BIBA EMS and IPD 9.41. Pt with an attempt to hurt herself. laceration to KARI. Also complains of the L wrist pain". According to the patient, she is in a lot of pain as she has a slipped disc in her back. Additionally, she noted that her aunt is going to " any day now". She stated that when the seasons change, she experiences carpal tunnel in her hand. Her hand is sore from hand knitting earlier. The patient did cut herself on her right arm because she is worried about her aunt and she has been getting worked up. Patient will see MD tomorrow. - History Of Current Complaint Chief Complaint: EDMentalHealth Time Seen by Provider: 06/27/18 21:21 Hx Obtained From: Patient Hx Last Menstrual Period: "last month" Onset/Duration: Sudden Onset, Lasting Hours, Still Present Timing: Constant Severity Currently: None Aggravating Factor(s): Nothing Alleviating Factor(s): Nothing Associated Signs And Symptoms: Positive: Negative Related History: Positive For: Prior Psychiatric Issues Has Suicidal: Denies: Thoughts Has Homicidal: Denies: Thoughts - Allergies/Home Medications Allergies/Adverse Reactions: Allergies Allergy/AdvReac Type Severity Reaction Status Date / Time ciprofloxacin Allergy Dizziness Verified 06/26/18 22:46 latex Allergy Rash Verified 06/26/18 22:46 lithium Allergy See Comment Verified 06/26/18 22:46 nalbuphine Allergy Unknown Verified 06/26/18 22:46 Reaction Details Penicillins Allergy Rash Verified 06/26/18 22:46 perphenazine Allergy Unknown Verified 06/26/18 22:46 Reaction Details Sulfa (Sulfonamide Allergy Hives Verified 06/26/18 22:46 Antibiotics) tramadol Allergy Altered Verified 06/26/18 22:46 Mental Status ENVIRONMENTAL Allergy Mild SINUS Uncoded 06/26/18 22:46 Home Medications: Home Medications Insulin GLARGINE(*) [Lantus(*)] 40 units SUBCUT Q12H 06/27/18 [History Confirmed 06/27/18] PMH/Surg Hx/FS Hx/Imm Hx Endocrine/Hematology History: Reports: Hx Diabetes, Hx Thyroid Disease, Other Endocrine/Hematological Disorders - Chronic pancreatitis Denies: Hx Anticoagulant Therapy Cardiovascular History: Reports: Hx Hypertension - NO MEDICATION FOR PER PATIENT , Other Cardiovascular Problems/Disorders - HX OF PSVT 04/2008 Denies: Hx Pacemaker/ICD Respiratory History: Reports: Hx Asthma, Hx Seasonal Allergies, Hx Sleep Apnea - HX OF IN THE PAST Denies: Hx Chronic Bronchitis, Hx Chronic Obstructive Pulmonary Disease (COPD ), Hx Cystic Fibrosis, Hx Lung Cancer, Hx Pleural Effusion, Hx Pneumonia, Hx Pulmonary Edema, Hx Pulmonary Embolism, Other Respiratory Problems/Disorders GI History: Reports: Hx Gall Bladder Disease, Hx Gastroesophageal Reflux Disease - ON MEDICATION FOR, Hx Gastrointestinal Bleed, Hx Irritable Bowel, Other GI Disorders - HX OF pancreatitis- STATES LAST ABOUT 2 WEEKS AGO- STATES SLIGHT CASE Denies: Hx Ulcer History: Denies: Hx Dialysis, Hx Renal Disease Musculoskeletal History: Reports: Hx Arthritis, Hx Back Problems, Other Musculoskeletal History - GEN MUSCULOSKELETAL PAIN Denies: Hx Rheumatoid Arthritis, Hx Bursitis, Hx Congenital Bone Abnormalities, Hx Fibromyalgia, Hx Gout, Hx Orthopedic Injury, Hx Osteoporosis, Hx Scoliosis, Hx Tendonitis Sensory History: Reports: Hx Vision Problem Denies: Hx Cataracts, Hx Contacts or Glasses, Hx Eye Injury, Hx Eye Prosthesis, Hx Glaucoma, Hx Macular Degeneration, Hx Hearing Aid, Other Sensory Impairments Opthamlomology History: Reports: Hx Vision Problem Denies: Hx Cataracts, Hx Contacts or Glasses, Hx Eye Injury, Hx Eye Prosthesis, Hx Glaucoma, Hx Macular Degeneration, Other Sensory Impairments Neurological History: Reports: Hx Developmental Delay - intellectual disability , Hx Seizures - STATES WITH ALLERGIC REACTION TO TRAMADOL Denies: Hx Dementia, Hx Headaches, Other Neuro Impairments/Disorders Psychiatric History: Reports: Hx Anxiety - ON MEDICATION FOR, Hx Depression - ON MEDICATION FOR, Hx Post Traumatic Stress Disorder, Hx Inpatient Treatment, Hx Community Mental Health Tx, Hx Bipolar Disorder - pt manic, Hx Suicide Attempt - past med overdoses, Hx of Violent Episodes Against Others, Other Psychiatric Issues/Disorders - PSYCHOSIS NOS, HX OF PTSD, SCHIZOAFFECTIVE DISORDER, BORDERLINE PERSONALITY Denies: Hx Attention Deficit Hyperactivity Disorder, Hx Eating Disorder, Hx Panic Disorder, Hx Schizophrenia, Hx Substance Abuse - Cancer History Cancer Type, Location and Year: None reported - Surgical History Surgery Procedure, Year, and Place: 2011-CATARACT EXTRACTION. GALLBLADDER REMOVED Hx Anesthesia Reactions: No - Immunization History Date of Tetanus Vaccine: Unknown Date of Influenza Vaccine: 04/2017 Infectious Disease History: No Infectious Disease History: Denies: Hx Clostridium Difficile, Hx Hepatitis, Hx Human Immunodeficiency Virus (HIV), Hx of Known/Suspected MRSA, Hx Shingles, Hx Tuberculosis, Hx Known/ Suspected VRE, Hx Known/Suspected VRSA, History Other Infectious Disease, Traveled Outside the [place] in Last 30 Days - Family History Known Family History: Positive: Other - Anxiety and depression, [place] - father Negative: Cardiac Disease, Hypertension, Diabetes Family History: Depression and anxiety - Social History Alcohol Use: None Hx Substance Use: Yes Substance Use Type: Reports: None Hx Tobacco Use: Yes Smoking Status (MU): Current Some Day Smoker Type: Cigarettes Amount Used/How Often: 1/2 PPD FOR LAST 30 DAYS, NO OTHER TOBACCO Length of Time of Smoking/Using Tobacco: 2 year ago Have You Smoked in the Last Year: Yes - Patient has smoked within the last 30 days Review of Systems Negative: Fever Positive: Other - POSITIVE: CUT ON RIGHT ARM All Other Systems Reviewed And Are Negative: Yes Physical Exam - Summary Physical Exam Summary: Appearance: Well-appearing, Well-nourished, lying in bed comfortable Skin: Warm, dry, no obvious rash. Superficial abrasion in right upper arm consistent with history of cutting behavior. Eyes: sclera anicteric, no conjunctival pallor ENT: mucous membranes moist Neck: deferred Respiratory: No signs of respiratory distress Cardiovascular: Appears well perfused, pulses are nml Abdomen: deferred Musculoskeletal: Moving all 4 extremities without obvious discomfort Neurological: Awake and alert, mentation is normal, speech is fluent and appropriate Psychiatric: affect is normal, does not appear anxious or depressed Triage Information Reviewed: Yes Vital Signs On Initial Exam: Initial Vitals Temp Pulse Resp BP Pulse Ox 98.0 F 78 18 120/86 98 06/27/18 21:12 06/27/18 21:12 06/27/18 21:12 06/27/18 21:12 06/27/18 21:12 Vital Signs Reviewed: Yes Diagnostics - Vital Signs Vital Signs Temp Pulse Resp BP Pulse Ox 06/27/18 21:12 98.0 F 78 18 120/86 98 - Laboratory Lab Statement: Any lab studies that have been ordered have been reviewed, and results considered in the medical decision making process. Course/Dx - Course Course Of Treatment: A 52 y/o female brought in by ambulance presents to the ED s/p cutting herself reaching 8/10 in severity. Currently, the patient feels good , but she noted that can change as she has a disorder. According to the patient , she is in a lot of pain as she has a slipped disc in her back. Additionally, she noted that her aunt is going to " any day now". She stated that when the seasons change, she experiences carpal tunnel in her hand. Her hand is sore from hand knitting earlier. The patient did cut herself on her right arm because she is worried about her aunt and she has been getting worked up. Patient will see MD tomorrow. Physical exam revealed superficial abrasion in right upper arm consistent with history of cutting behavior. No laboratory scans were done. After [facility], patient care was discussed with Dr. Tierney who recommends discharging patient. Patient will be discharged with a diagnosis of adjustment disorder. Patient is agreeable with this plan. - Differential Dx/Clinical Impression Provider Diagnosis: Adjustment disorder, Borderline personality disorder, Obesity - Physician Notifications Discussed Care Of Patient With: Armand Tierney Time Discussed With Above Provider: 02:38 Instructed by Provider To: Other - Recommends discharging patient. Discharge - Sign-Out/Discharge Documenting (check all that apply): Patient Departure - DISCHARGE - Discharge Plan Condition: Stable Disposition: HOME Patient Education Materials: Suicide Prevention (ED) Referrals: Chapo Aguila MD [Primary Care Provider] - Additional Instructions: Per completion of a mental health evaluation, you are cleared for release and do not require inpatient psychiatric hospitalization at this time. Please go to nearest emergency room or call 911 if safety concerns arise or condition worsens. Important Phone Numbers: [facility] [phone] Suicide Prevention and Crisis Services........................ [phone] National Suicide Prevention Lifeline............................ [phone] (2270) [facility]....................... [phone] Alcoholics Anonymous............................................... [facility].............. [phone] [facility].............................................. [phone] - Billing Disposition and Condition Condition: STABLE Disposition: Home - Attestation Statements Document Initiated by Noam: Yes Documenting Scribe: Leonardo Waters Provider For Whom Noam is Documenting (Include Credential): Neo Steinberg MD Scribe Attestation: Leonardo Rosales scribed for Neo Steibnerg MD on 06/28/18 at 2013. Scribe Documentation Reviewed: Yes Provider Attestation: The documentation as recorded by the Leonardo roth accurately reflects the service I personally performed and the decisions made by Neo de león MD Status of Scribe Document: Viewed
[2018-06-28 03:07] VITALS: BP 131/77
== END 2018-06-28 03:06 | disposition home or self-care (01) ==
LOC: ED 20:59
DX: F43.20 Adjustment disorder, unspecified (principal); F60.3 Borderline personality disorder; E66.9 Obesity, unspecified; F17.210 Nicotine dependence, cigarettes, uncomplicated; Z88.0 Allergy status to penicillin; Z88.2 Allergy status to sulfonamides
CPT/HCPCS: 99285

== ENCOUNTER 2018-07-10 18:39 | Emergency (ER) | payer MEDICARE, MEDICAID ==
--- OUTSIDE RECORDS SUMMARY | 2018-07-10 19:09 | XMS REPORT | Continuity of Care Document ---
:1965 External Reference #:[id number] Author Name Monika Tomlinson Care Team Providers Name Role Phone Rosa Schroeder M.D. Primary Care Physician Unavailable Payers Type Date Identification Numbers Payment Provider Subscriber Effective: 1991 Policy Number: [id number] Medicare Cecilio Alfaro PayID: [id number] [address] [place] [address] Policy Number: [id number] Medicaid Cecilio Alfaro Group Name: 1 1 [address] PayID: [id number] [place] [address] Advance Directives Description No Information Available Problems Date Description Provider Status Onset: 06/13/2017 [...] lumbosacral neuritis Chapo Aguila M.D. Active Onset: 08/11/2017 Benign neoplasm of colon Chapo Aguila M.D. Active Onset: 05/15/2018 Pancreatitis Rosa Schroeder MD Active Family History Date Family Member(s) Problem(s) Comments General Cancer Father Depression Father Cancer Social History Type Date Description Comments Sex Unknown Marital Status also with severe mental illness Lives With Assisted living [place] since March 2018. Was at [facility] from October-Apr 2018 Occupation Unemployed Occupation Disabled Tobacco Use Start: Unknown Light tobacco smoker (10 or fewer cigarettes/day) ETOH Use Denies alcohol use Recreational Drug Use Former Drug User Tobacco Use Start: Unknown Patient is a current pt using Nicotrol smoker, smokes some inhaler to quit. days Smoking Status Reviewed: 07/04/18 Patient is a current pt using Nicotrol smoker, smokes some inhaler to quit. days Exercise Type/Frequency Exercises rarely Allergies, Adverse Reactions, Alerts Date Description Reaction Status Severity Comments 05/10/2017 Latex Urticaria Active 05/10/2017 Sulfa Antibiotics hives Active 05/10/2017 Penicillins Urticaria Active 05/10/2017 Nalbuphine Active 05/10/2017 Perphenazine Active 05/10/2017 Ciprofloxacin dizziness Active 05/10/2017 Tramadol altered mental status Active 05/10/2017 [place] Active 05/08/2018 Lurasidone Active Moderate 05/22/2018 Metformin Diarrhea Active Medications Medication Date Status Form Strength Qnty SIG Indications Ordering Provider Depend Adjustable 07/03 Active Misc 120un use four Underwear its times a jeremías Schroeder MD Methylprednisolon 06/29 Active TBPK 4mg 21uni take as Miguel ts instructed Jonah per samuel LAWSON dose pack instructio ns Naproxen 06/29 Active Tablets 500mg 14tab Take 1 s tablet Jonah, twice MD daily with food Flonase Allergy 06/23 Active Suspension 50mcg/Act 9.900 2 sprays ml in each Schroeder, nostril twice a day Fiasp Flextouch 05/19 Active Solution 100Unit/M 30ml 2-10 u SQ, E11.65 Pen-Inject L as Schroeder, indicated MD by sliding scale Basaglar Kwikpen 05/19 Active Solution 100Unit/M 6ml 40 U bid Pen-Inject L MD Alexandre Nicotrol 05/18 Active Inhaler 10mg 168un 1 Lawrence its cartridges Kamille Denson, every 2 M.D.,FACP hours as needed Nystatin 05/15 Active Powder [id number] 90gm apply t/GM twice Schroeder, daily MD until rash clears Walker Auto 05/15 Active Misc 1-08/08" 1unit use this Rosa Glides/ s to Alexandre, Adjustment ambulate MD Holes/-08/08" daily for unsteady gait Ventolin HFA 05/15 Active Aerosol 108(90Bas 8gm 2 by mouth e) every 4 Schroeder, mcg/Act hours as MD needed Januvia 05/08 Active Tablets 50mg 90tab one by E11.65 s mouth Schroeder, daily MD Pereztouch Ultra 09/09 Active Strips 100un test up to E11.9 Lawrence Pantoja its three Kamille Denson, soco Sahu,FACP daily last visit: 03/18 Onetouch 08/31 Active Misc 100un test blood E11.9 Lawrence Ultrasoft Lancets its 2-3 a day Kamille Denson, or as Adelina,FACP needed BD Pen 08/24 Active Misc 32G X 4 120un use three E11.9 Needle/Suzanna/Ultra /2017 mm its times a Schroeder, Fine/32G X 4mm day daily. last visit 05/22/18 Depend Pant Extra 06/14 Active Misc 120un use 4 x a Rosa its day or as Schroeder, needed Olanzapine Active Tablets 5mg 90tab one tab s daily Schroeder, daily Trazodone HCL Active Tablets 100mg 90tab 1 tab at s bedtime MD Ana Schroedertouch Ultra Active Kit w/Device 1unit check bs E11.65 Alyson Mendez Mini / s up to Kamille Denson, three Adelina,FACP times daily Atorvastatin Active Tablets 20mg 90tab take 1 Calcium s tablet at Schroeder, bedtime Lamotrigine Active Tablets 100mg 180ta 1 by mouth bs twice a Schroeder, day Levothyroxine Active Tablets 150mcg 90tab 1 by mouth Rosa Sodium /0000 s every day MD Alexandre Losartan Active Tablets 50mg 90tab 1 by mouth E11.65 Rosa Potassium /0000 s every day MD Alexandre Loratadine Active Capsules 10mg 90cap once a day s for Schroeder, allergies MD as needed Duloxetine HCL Active Caps DR 20mg 90cap 1 by mouth Part s every day Schroeder, with 60mg MD tab Duloxetine HCL Active Caps DR 60mg 90cap 1 by mouth Part s every day Schroeder, with 20mg MD tab Vitamin D3 Active Capsules 1000Unit 180ca 1 by mouth ps twice Schroeder, daily Gabapentin Active Capsules 400mg 270ca take one ps capsule by Schroeder, mouth 3 MD times a day Mucinex DM 06/23 Hx Tablets ER 30-600mg 14tab one po bid 12HR s Alexandre, - 07/03 Ibuprofen 05/29 Hx Tablets 600mg 30tab 1 po three s times a Schroeder, - day as 07/03 needed for pain, take with food Clindamycin 05/22 Hx Gel 1% 60gm apply to R15.1 affected Schroeder, - area twice 07/03 a day for 14 days Shower Chair 05/15 Hx 1unit use when s taking a Schroeder, - shower for 07/03 unsteady gait Metformin HCL ER 05/12 Hx Tablets ER 500mg 90tab take 1 24HR s tablet by Alexandre, - mouth once 05/22 a day with dinner Depend Adjustable 05/08 Hx Misc 120un use four R15.1 Rosa Underwear its times a Schroeder, - day 07/03 Exercise 05/08 Hx Pt allowed E11.65 to engage Schroeder, - in 07/03 exercise at facilities under direct supervisio n of staff Tresiarsen Flextouch 10/13 Hx Solution 100Unit/M 15ml 100 units E11.65 Pen-Inject L at bedtime Pachhortensia - M.D. 05/08 Losartan 10/13 Hx Tablets 25mg 30tab 1 by mouth E11.65 [place] Potassium s once a day Pachika - M.D. 05/08 Hydrocodone-Aceta 10/10 Hx Tablets 5-325mg 20tab 1 tab [place] [facility] s every 12h Pachikara - as needed , M.D. 05/08 Tresiba Flextouch 09/19 Hx Solution 100Unit/M 15ml 60 units E11.65 Pen-Inject L at bedtime Pachika - M.D. 10/13 Onetouch Ultra 08/31 Hx Lancets 100un check bs [facility] its twice Pachikara - daily , M.DJarred 05/08 Onetouch Ultra 08/31 Hx Strips 100un test up to E11.9 [place] its three Kamille Denson, - times M.DJarred,[facility] 09/09 daily last visit:08/17 Mucinex 08/28 Hx Tablets ER 600mg 20tab 1 po bid 12HR s prn Kamille Denson, - Adelina,[facility] 05/08 Doxycycline 08/28 Hx Capsules 100mg 13cap 1 by mouth Unknown Monohydr s twice a - day x 7 Tresiba Flextouch 08/26 Hx Solution 200Unit/M 18ml 30u SC in Pen-Inject L Am and 70u Kamille Denson - SC in PM M.DJarred,FACP 09/19 Azithromycin 08/26 Hx Tablets 250mg 2 tabs by mouth on - day 1; 1 08/31 tab by mouth every day on days 2-5 Tramadol HCL 08/26 Hx Tablets 50mg 30tab 1 tab by s mouth Kamille Denson, - three MJarredDJarred,FACP 09/28 times a day Fluconazole 08/22 Hx Tablets 150mg 2tabs one by mouth may Kamille Denson, - repeat in [facility]DJarred,[facility] 05/08 3 days needed Lancets 28G 08/08 Hx Misc 28G 100un use with its one touch Pachikara - meter, , M.D. 08/31 check daily Onetouch 08/08 Hx Strips 100un test twice its daily and Pachikara - as needed , M.D. 08/31 Janumet 07/15 Hx Tablets 50-500mg 60tab 1 by mouth E11.9 s twice a Pachikara - day , M.D. 05/08 Glucocom Blood 07/03 Hx Kit W/Device 1unit one touch Erik Glucose s glucometer [employer], Monitoring System - to measure M.D. 08/31 blood sugar daily Nicotrol 06/13 Hx Inhaler 10mg 168un use 4-5 F17.210 its times Pachikara - daily , M.D. 05/08 Clotrimazole 06/13 Hx Cream 1% 90gm apply B37.9 twice Pachikara - daily , M.D. 05/08 Acetaminophen-Cod 05/26 Hx Tablets 300-30mg 20tab 1 tab by Chapo [place] [facility]ca #3 /2016 s mouth Pachikara - every 4-6 , M.D. 05/08 hours needed for pain Ibuprofen Hx Tablets 600mg as needed Home /0000 Paty, - PROJECT ADMINISTRATOR 05/08 Ondansetron Hx Tablets 8mg every 6-8 Home /0000 Dispers hours as Paty, - needed PROJECT ADMINISTRATOR 05/[address] 40mg 30tab take 1 Chapo Sodium / s tablet by Pachikara - mouth once , M.D. 05/08 Lamotrigine Hx Tablets 150mg take 1 Unknown /0000 tablet by - mouth 05/08 twice a day Sertraline HCL Hx Tablets 100mg Take 1+1/2 Unknown /0000 Tablets By - Mouth Once 05/08 Novolog Flexpen Hx Solution 100Unit/M Inject 15 Unknown /0000 Pen-Inject L Units Subq Three Times A Day With Meals Cyclobenzaprine Hx Tablets 10mg as needed Unknown HCL /0000 - 09/28 Latuda 00 Hx Tablets 80mg daily Unknown /0000 - 05/08 Levothyroxine 00 Hx Tablets 50mcg 90tab 1 tab Chapo Sodium /0000 s daily in Pachika - the empty , M.D. 05/08 stomach Levothyroxine Hx Tablets 200mcg 90tab 1 tab [place] Sodium /0000 s daily am Pachika - in the , M.D. 05/08 empty stomach Naproxen Hx Tablets 500mg 60tab twice [place] /0000 s daily [facility] - , M.D. 07/15 Lantus Solostar Hx Solution 100Unit/M 15ml 30 units Lawrence / Pen-Inject L SC in Am, Kamille Denson, - and 70 M.D.,FACP 08/26 units SC hs Atorvastatin Hx Tablets 40mg 90tab take one Chapo Calcium /0000 s [facility] mouth , M.DJarred 05/08 every Pictonix Hx 40 mg Unknown /0000 daily Novalog 00/00 Hx 10 units Unknown /0000 before - meals 05/08 Humalog Kwikpen Hx Solution 100Unit/M 9ml 4-10 Units E11.65 Pen-Inject L SQ three Schroeder, - times a , mealtime, per sliding scale instructio ns Metformin HCL Hx Tablets 500mg 1 by mouth Unknown /0000 twice a - day 05/08 Naproxen Hx Tablets 375mg 180ta twice a Rosa bs day with Schroeder, - food 07/03 Lantus Solostar Hx Solution 100Unit/M 45ml 40 units 0000 Pen-Inject L twice Schroeder, - daily 05/22 Medications Administered in Office Medication Date Status Form Strength Qnty SIG Indications Ordering Provider Depomedrol Administered Injection Naveed F 40MG 018 MD Venecia Immunizations CPT Code Status Date Vaccine Lot # [id number] Given 05/01/2018 Influenza Virus Vaccine, Quadrivalent, Split, Preservative Free Vital Signs Date Vital Result Comment 07/04/2018 12:34pm Height 67 inches 5'7" Weight 260.00 lb w/ shoes Heart Rate 75 /min BP Systolic Sitting 147 mmHg BP Diastolic Sitting 88 mmHg BMI (Body Mass Index) 40.7 kg/m2 07/03/2018 9:39am Height 67 inches 5'7" Weight 260.00 lb Heart Rate 103 /min BP Systolic Sitting 138 mmHg BP Diastolic Sitting 80 mmHg Body Temperature 98.7 F O2 % BldC Oximetry 94 % BMI (Body Mass Index) 40.7 kg/m2 06/28/2018 12:56pm Height 67 inches 5'7" Heart Rate 52 /min BP Systolic Sitting 100 mmHg BP Diastolic Sitting 70 mmHg Body Temperature 98.1 F Pain Level 7 05/22/2018 2:16pm Height 67 inches 5'7" Weight 260.50 lb Heart Rate 84 /min BP Systolic 118 mmHg BP Diastolic 78 mmHg Body Temperature 98.6 F O2 % BldC Oximetry 97 % BMI (Body Mass Index) 40.8 kg/m2 05/15/2018 1:13pm Height 67 inches 5'7" Weight 257.00 lb Heart Rate 101 /min BP Systolic Sitting 118 mmHg BP Diastolic Sitting 82 mmHg Body Temperature 98.2 F O2 % BldC Oximetry 94 % BMI (Body Mass Index) 40.2 kg/m2 05/08/2018 8:46am Height 67 inches 5'7" Weight 256.00 lb Heart Rate 99 /min BP Systolic Sitting 130 mmHg BP Diastolic Sitting 82 mmHg Body Temperature 97.9 F O2 % BldC Oximetry 96 % BMI (Body Mass Index) 40.1 kg/m2 10/18/2017 9:09am Height 67 inches 5'7" Heart Rate 96 /min BP Systolic 148 mmHg BP Diastolic 90 mmHg Respiratory Rate 16 /min Body Temperature 97.7 F Pain Level 9 10/13/2017 1:33pm Height 67 inches 5'7" Weight 251.50 lb Heart Rate 100 /min BP Systolic Sitting 128 mmHg BP Diastolic Sitting 84 mmHg O2 % BldC Oximetry 95 % BMI (Body Mass Index) 39.4 kg/m2 10/11/2017 1:04pm Height 67 inches 5'7" Weight 249.00 lb Heart Rate 89 /min BP Systolic 132 mmHg BP Diastolic 82 mmHg Respiratory Rate 16 /min Body Temperature 98.1 F Pain Level 8 BMI (Body Mass Index) 39.0 kg/m2 09/28/2017 1:15pm Height 67 inches 5'7" Weight 259.44 lb Heart Rate 90 /min BP Systolic 132 mmHg BP Diastolic 80 mmHg O2 % BldC Oximetry 96 % BMI (Body Mass Index) 40.6 kg/m2 09/19/2017 2:36pm Weight 287.00 lb Heart Rate 83 /min BP Systolic 142 mmHg BP Diastolic 81 mmHg Body Temperature 98.2 F O2 % BldC Oximetry 97 % 08/17/2017 1:43pm Weight 289.00 lb Heart Rate 90 /min BP Systolic Sitting 120 mmHg BP Diastolic Sitting 80 mmHg Body Temperature 97.6 F O2 % BldC Oximetry 98 % 08/11/2017 1:54pm Height 67 inches 5'7" Weight 251.00 lb Heart Rate 92 /min BP Systolic Sitting 132 mmHg BP Diastolic Sitting 84 mmHg Body Temperature 97.3 F O2 % BldC Oximetry 94 % BMI (Body Mass Index) 39.3 kg/m2 07/15/2017 11:08am Weight 257.50 lb Heart Rate 96 /min BP Systolic Sitting 142 mmHg BP Diastolic Sitting 82 mmHg Body Temperature 97.4 F O2 % BldC Oximetry 96 % 06/15/2017 1:14pm Height 67 inches 5'7" Weight 248.00 lb Heart Rate 88 /min BP Systolic 166 mmHg BP Diastolic 89 mmHg Body Temperature 96.2 F BMI (Body Mass Index) 38.8 kg/m2 06/13/2017 3:52pm Height 67 inches 5'7" Weight 259.00 lb Heart Rate 87 /min BP Systolic Sitting 125 mmHg BP Diastolic Sitting 75 mmHg Body Temperature 98.1 F O2 % BldC Oximetry 97 % BMI (Body Mass Index) 40.6 kg/m2 05/26/2017 8:32am Height 67 inches 5'7" Weight 255.00 lb Heart Rate 80 /min BP Systolic 150 mmHg BP Diastolic 98 mmHg Body Temperature 96.9 F Pain Level 7 BMI (Body Mass Index) 39.9 kg/m2 05/11/2017 10:57am Heart Rate 78 /min BP Systolic 140 mmHg BP Diastolic 100 mmHg Respiratory Rate 18 /min Body Temperature 98.3 F Results Test Date Facility Test Result H/L Range Note Laboratory test [facility] Point of Care 143 mg/dL High 70-100 1 finding [address] [place] [address] [phone] Laboratory test [facility] Point of Care 72 mg/dL N 70-100 2 finding [address] [place] [address] [phone] Urine Drug SCR [facility] Amphetamine Ur None None ED & Pain [address] Screen [place] [address] [phone] Barbiturates Urine Screen None Detected None Detect Benzodiazepine Urine Screen None Detected None Detect Urine Cannabinoids Screen None Detected None Detect Urine Cocaine Screen None Detected None Detect Urine Opiates Screen None Detected None Detect Urine Phencyclidine Screen None Detected None Detect 3 CBC Auto 06/26/2018 [facility] White Blood 10.9 10^3/uL High 3.5-10.[address] [place] [address] [phone] Red Blood Count 4.42 10^6/uL N 4.00-5.40 Hemoglobin 12.4 g/dL N 12.0-16.0 Hematocrit 39 % N 35-47 Mean Corpuscular Volume 88 fL N 80-97 Mean Corpuscular Hemoglobin 28 pg N 27-31 Mean Corpuscular HGB Conc 32 g/dL N 31-36 Red Cell Distribution Width 17 % High 10.5-15 Platelet Count 220 10^3/uL N 150-450 Mean Platelet Volume 9.5 fL N 7.4-10.4 Abs Neutrophils 6.8 10^3/uL N 1.5-7.7 Abs Lymphocytes 2.6 10^3/uL N 1.0-4.8 Abs Monocytes 0.6 10^3/uL N 0-0.8 Abs Eosinophils 0.9 10^3/uL High 0-0.6 Abs Basophils 0 10^3/uL N 0-0.2 Abs Nucleated RBC 0 10^3/uL Granulocyte % 62.0 % Lymphocyte % 24.1 % Monocyte % 5.3 % Eosinophil % 8.3 % Basophil % 0.3 % Nucleated Red Blood Cells % 0 Comp Metabolic Panel 06/26/2018 [facility] Sodium 137 mmol/L N 135-[address] [place] [address] [phone] Potassium 4.3 mmol/L N 3.5-5.0 Chloride 105 mmol/L N 101-111 Co2 Carbon Dioxide 25 mmol/L N 22-32 Anion Gap 7 mmol/L N 2-11 Glucose 98 mg/dL N 70-100 Blood Urea Nitrogen 15 mg/dL N 6-24 Creatinine 0.77 mg/dL N 0.51-0.95 BUN/Creatinine Ratio 19.5 N 8-20 Calcium 9.6 mg/dL N 8.6-10.3 Total Protein 6.9 g/dL N 6.4-8.9 Albumin 3.8 g/dL N 3.2-5.2 Globulin 3.1 g/dL N 2-4 Albumin/Globulin Ratio 1.2 N 1-3 Total Bilirubin 0.20 mg/dL N 0.2-1.0 Alkaline Phosphatase 177 U/L High 34-104 Alt 50 U/L N 7-52 Ast 54 U/L High 13-39 Egfr Non- 79.0 >60 Egfr 95.6 >60 4 Laboratory test 06/26/2018 [facility] Acetaminophen < 15 g/mL [address] [place] [address] [phone] Alcohol < 10 mg/dL N <10 Salicylate < 2.50 mg/dL <30 Lactic Acid 0.9 mmol/L N 0.5-2.0 6 Urinalysis Profile 06/26/2018 [facility] Urine Color Straw [address] [place] [address] [phone] Urine Appearance Clear Urine Specific [place] 1.005 Low 1.010-1.030 Urine pH 6.0 N 5-9 Urine Urobilinogen Negative Negative Urine Ketones Negative Negative Urine Protein Negative Negative Urine Leukocytes Negative Negative Urine Blood Negative Negative Urine Nitrite Negative Negative Urine Bilirubin Negative Negative Urine Glucose Negative Negative Laboratory test 06/26/2018 [facility] Point of Care 98 mg/dL N 70-100 [address] [place] [address] [phone] CBC Auto Diff 05/18/2018 [facility] White Blood 10.8 N 3.5- 10.[address] Count 10^3/[place] [address] [phone] Red Blood Count 4.33 10^6/uL N 4.00-5.40 Hemoglobin 12.4 g/dL N 12.0-16.0 Hematocrit 37 % N 35-47 Mean Corpuscular Volume 86 fL N 80-97 Mean Corpuscular Hemoglobin 29 pg N 27-31 Mean Corpuscular HGB Conc 33 g/dL N 31-36 Red Cell Distribution Width 18 % High 10.5-15 Platelet Count 244 10^3/uL N 150-450 Mean Platelet Volume 9.6 um3 N 7.4-10.4 Abs Neutrophils 7.2 10^3/uL N 1.5-7.7 Abs Lymphocytes 2.9 10^3/uL N 1.0-4.8 Abs Monocytes 0.4 10^3/uL N 0-0.8 Abs Eosinophils 0.3 10^3/uL N 0-0.6 Abs Basophils 0.1 10^3/uL N 0-0.2 Abs Nucleated RBC 0 10^3/uL Granulocyte % 66.4 % N 38-83 Lymphocyte % 26.6 % N 25-47 Monocyte % 3.8 % N 0-7 Eosinophil % 2.6 % N 0-6 Basophil % 0.6 % N 0-2 Nucleated Red Blood Cells % 0.1 Comp Metabolic Panel 05/18/2018 [facility] Sodium 139 mmol/L N 135-[address] [place] [address] [phone] Potassium 4.5 mmol/L N 3.5-5.0 Chloride 107 mmol/L N 101-111 Co2 Carbon Dioxide 27 mmol/L N 22-32 Anion Gap 5 mmol/L N 2-11 Glucose 288 mg/dL High 70-100 Blood Urea Nitrogen 11 mg/dL N 6-24 Creatinine 0.75 mg/dL N 0.51-0.95 BUN/Creatinine Ratio 14.7 N 8-20 Calcium 9.5 mg/dL N 8.6-10.3 Total Protein 6.9 g/dL N 6.4-8.9 Albumin 3.7 g/dL N 3.2-5.2 Globulin 3.2 g/dL N 2-4 Albumin/Globulin Ratio 1.2 N 1-3 Total Bilirubin 0.20 mg/dL N 0.2-1.0 Alkaline Phosphatase 187 U/L High 34-104 Alt 26 U/L N 7-52 Ast 32 U/L N 13-39 Egfr Non- 81.5 >60 Egfr 98.6 >60 8 Laboratory test 05/18/2018 [facility] Lipase < 10 U/L Low 11.0 -82.[address] [place] [address] [phone] Lactic Acid 1.1 mmol/L N 0.5-2.0 9 Laboratory test 05/15/2018 [facility] C Difficile PCR SEE RESULT [address] [place] [address] [phone] Laboratory test 05/11/2018 [facility] Glucose 342 mg/dL High 70-[address] Confirmatory 00 [place] [address] [phone] Laboratory test 05/11/2018 [facility] Point of Care 402 mg/dL High 70-1 [address] Glucose 00 [place] [address] [phone] Laboratory test 05/11/2018 [facility] Point of Care 426 mg/dL High 70-1 [address] Glucose 00 [place] [address] [phone] Laboratory test 05/10/2018 [facility] Lipase < 10 U/L Low 11.[address] [place] [address] 0 [phone] C Reactive Protein 6.43 mg/L N <8.01 Lactic Acid 1.2 mmol/L N 0.5-2.0 13 Comp Metabolic Panel 05/10/2018 [facility] Sodium 141 mmol/L N 135-[address] [place], [place] [id number] [phone] Potassium 4.9 mmol/L N 3.5-5.0 Chloride 107 mmol/L N 101-111 Co2 Carbon Dioxide 28 mmol/L N 22-32 Anion Gap 6 mmol/L N 2-11 Glucose 174 mg/dL High 70-100 Blood Urea Nitrogen 16 mg/dL N 6-24 Creatinine 0.81 mg/dL N 0.51-0.95 BUN/Creatinine Ratio 19.8 N 8-20 Calcium 9.1 mg/dL N 8.6-10.3 Total Protein 6.6 g/dL N 6.4-8.9 Albumin 3.7 g/dL N 3.2-5.2 Globulin 2.9 g/dL N 2-4 Albumin/Globulin Ratio 1.3 N 1-3 Total Bilirubin 0.30 mg/dL N 0.2-1.0 Alkaline Phosphatase 199 U/L High 34-104 Alt 43 U/L N 7-52 Ast 44 U/L High 13-39 Egfr Non- 74.5 >60 Egfr 90.2 >60 14 CBC Auto 05/10/2018 [facility] White Blood 12.0 10^3/uL High 3.5-10.[address] [place] [address] [phone] Red Blood Count 4.39 10^6/uL N 4.00-5.40 Hemoglobin 12.1 g/dL N 12.0-16.0 Hematocrit 38 % N 35-47 Mean Corpuscular Volume 86 fL N 80-97 Mean Corpuscular Hemoglobin 28 pg N 27-31 Mean Corpuscular HGB Conc 32 g/dL N 31-36 Red Cell Distribution Width 17 % High 10.5-15 Platelet Count 236 10^3/uL N 150-450 Mean Platelet Volume 9.4 um3 N 7.4-10.4 Abs Neutrophils 8.0 10^3/uL High 1.5-7.7 Abs Lymphocytes 3.1 10^3/uL N 1.0-4.8 Abs Monocytes 0.5 10^3/uL N 0-0.8 Abs Eosinophils 0.3 10^3/uL N 0-0.6 Abs Basophils 0.1 10^3/uL N 0-0.2 Abs Nucleated RBC 0 10^3/uL Granulocyte % 67.1 % N 38-83 Lymphocyte % 25.7 % N 25-47 Monocyte % 3.9 % N 0-7 Eosinophil % 2.8 % N 0-6 Basophil % 0.5 % N 0-2 Nucleated Red Blood Cells % 0.1 Urine Microalbumin 05/08/2018 [facility] Ur Microalbumin < 15.[address] (mg/L) [place] [address] [phone] Urine Creatinine 224.47 mg/dL Urine Microalbumin/Creatinine TNP <31 15 Laboratory test 05/08/2018 [facility] Hemoglobin A1c 9.7 High 5-7 finding Urinalysis Profile 11/02/2017 [facility] Urine Color Yellow [address] [place] [address] [phone] Urine Appearance Clear Urine Specific [place] 1.018 N 1.010-1.030 Urine pH 5.0 N 5-9 Urine Urobilinogen Negative Negative Urine Ketones Negative Negative Urine Protein Negative Negative Urine Leukocytes Negative Negative Urine Blood Negative Negative Urine Nitrite Negative Negative Urine Bilirubin Negative Negative Urine Glucose 1+(50 mg/dL) Abnormal Negative Urine Drug 11/02/2017 [facility] Amphetamine Ur None Detected None Detect SCR ED & [address] [place] [address] [phone] Barbiturates Urine Screen None Detected None Detect Benzodiazepine Urine Screen None Detected None Detect Urine Cannabinoids Screen None Detected None Detect Urine Cocaine Screen None Detected None Detect Urine Opiates Screen Presumptive Posi <SEE NOTE> Abnormal None Detect 16 Urine Phencyclidine Screen None Detected None Detect 17 Arterial Blood Gas 11/02/2017 [facility] PH Arterial 7.36 N 7.35-7.45 [address] [place] [address] [phone] Pco2 Arterial 50 mmHg High 35-45 Po2 Arterial 65 mmHg Low 80-100 O2 Saturation Arterial 91.1 % Low 95-98 Base Excess Arterial 2.1 High -2.0-2.0 18 Hco3 Arterial 26.4 mmol/L N 19-31 Laboratory test finding 11/02/2017 [facility] Ammonia 37 ?mol/L N 16-53 [address] [place] [address] [phone] Lactic Acid 1.0 mmol/L N 0.5-2.0 19 CBC Auto Diff 11/02/2017 [facility] White Blood 8.5 10^3/uL N 3.5-10.[address] [place] [address] [phone] Red Blood Count 4.40 10^6/uL N 4.0-5.4 Hemoglobin 11.8 g/dL Low 12.0-16.0 Hematocrit 37 % N 35-47 Mean Corpuscular Volume 84 fL N 80-97 Mean Corpuscular Hemoglobin 27 pg N 27-31 Mean Corpuscular HGB Conc 32 g/dL N 31-36 Red Cell Distribution Width 18 % High 10.5-15 Platelet Count 207 10^3/uL N 150-450 Mean Platelet Volume 8.4 um3 N 7.4-10.4 Abs Neutrophils 5.7 10^3/uL N 1.5-7.7 Abs Lymphocytes 2.2 10^3/uL N 1.0-4.8 Abs Monocytes 0.4 10^3/uL N 0-0.8 Abs Eosinophils 0.2 10^3/uL N 0-0.6 Abs Basophils 0 10^3/uL N 0-0.2 Abs Nucleated RBC 0 10^3/uL Granulocyte % 67.4 % N 38-83 Lymphocyte % 25.6 % N 25-47 Monocyte % 4.4 % N 0-7 Eosinophil % 2.2 % N 0-6 Basophil % 0.4 % N 0-2 Nucleated Red Blood Cells % 0 Comp Metabolic 11/02/2017 [facility] Potassium 4.4 mmol/L N 3.5-5.0 Panel [address] [place] [address] [phone] Chloride 107 mmol/L N 101-111 Co2 Carbon Dioxide 30 mmol/L N 22-32 Glucose 92 mg/dL N 70-100 Blood Urea Nitrogen 18 mg/dL N 6-24 Creatinine 0.85 mg/dL N 0.51-0.95 BUN/Creatinine Ratio 21.2 High 8-20 Calcium 9.2 mg/dL N 8.6-10.3 Total Protein 6.8 g/dL N 6.4-8.9 Albumin 3.7 g/dL N 3.2-5.2 Globulin 3.1 g/dL N 2-4 Albumin/Globulin Ratio 1.2 N 1-3 Total Bilirubin 0.10 mg/dL Low 0.2-1.0 Alkaline Phosphatase 135 U/L High 34-104 Alt 25 U/L N 7-52 Ast 26 U/L N 13-39 Egfr Non- 70.5 >60 Egfr 90.7 >60 20 Sodium 142 mmol/L N 139-145 Anion Gap 5 mmol/L N 2-11 Laboratory test 11/02/2017 [facility] Magnesium 1.9 mg/dL N 1.9-2.7 finding [address] [place] [address] [phone] Creatine Kinase(CK) 72 U/L N 10-223 Troponin-I (TnI) 0.03 ng/mL <0.04 Acetaminophen < 15 g/mL 21 Alcohol < 10 mg/dL N <10 Salicylate < 2.50 mg/dL <30 TSH (Thyroid Stim Horm) 1.79 mcIU/mL N 0.34-5.60 CBC Auto Diff 10/02/2017 [facility] White Blood 10.3 10^3/uL N 3.5-10.[address] [place] [address] [phone] Red Blood Count 4.29 10^6/uL N 4.0-5.4 Hemoglobin 11.8 g/dL Low 12.0-16.0 Hematocrit 36 % N 35-47 Mean Corpuscular Volume 83 fL N 80-97 Mean Corpuscular Hemoglobin 27 pg N 27-31 Mean Corpuscular HGB Conc 33 g/dL N 31-36 Red Cell Distribution Width 18 % High 10.5-15 Platelet Count 219 10^3/uL N 150-450 Mean Platelet Volume 9 um3 N 7.4-10.4 Abs Neutrophils 6.6 10^3/uL N 1.5-7.7 Abs Lymphocytes 2.2 10^3/uL N 1.0-4.8 Abs Monocytes 0.5 10^3/uL N 0-0.8 Abs Eosinophils 0.8 10^3/uL High 0-0.6 Abs Basophils 0.1 10^3/uL N 0-0.2 Abs Nucleated RBC 0 10^3/uL Granulocyte % 64.4 % N 38-83 Lymphocyte % 21.9 % Low 25-47 Monocyte % 5.3 % N 0-7 Eosinophil % 7.8 % High 0-6 Basophil % 0.6 % N 0-2 Nucleated Red Blood Cells % 0 Comp Metabolic Panel 10/02/2017 [facility] Sodium 136 mmol/L N 133-[address] [place] [address] [phone] Potassium 4.5 mmol/L N 3.5-5.0 Chloride 103 mmol/L N 101-111 Co2 Carbon Dioxide 29 mmol/L N 22-32 Anion Gap 4 mmol/L N 2-11 Glucose 347 mg/dL High 70-100 Blood Urea Nitrogen 14 mg/dL N 6-24 Creatinine 0.85 mg/dL N 0.51-0.95 BUN/Creatinine Ratio 16.5 N 8-20 Calcium 9.2 mg/dL N 8.6-10.3 Total Protein 6.9 g/dL N 6.4-8.9 Albumin 3.7 g/dL N 3.2-5.2 Globulin 3.2 g/dL N 2-4 Albumin/Globulin Ratio 1.2 N 1-3 Total Bilirubin 0.20 mg/dL N 0.2-1.0 Alkaline Phosphatase 119 U/L High 34-104 Alt 18 U/L N 7-52 Ast 18 U/L N 13-39 Egfr Non- 70.5 >60 Egfr 90.7 >60 22 Laboratory test 10/02/2017 [facility] CRP High 3.53 mg/L [address] [place] [address] [phone] Laboratory test 09/28/2017 [facility] Hemoglobin A1c 9.1 High 5-7 finding Laboratory test 09/13/2017 [facility] Point of Care 179 mg/dL High 70-10 [address] Glucose 0 [place] [address] [phone] Laboratory test 09/13/2017 [facility] Point of Care 260 mg/dL High 70-10 [address] Glucose 0 [place] [address] [phone] Comp Metabolic 08/29/2017 [facility] Sodium 136 N 133-[address] mmol/L 45 [place] [address] [phone] Potassium 4.9 mmol/L N 3.5-5.0 Chloride 104 mmol/L N 101-111 Co2 Carbon Dioxide 27 mmol/L N 22-32 Anion Gap 5 mmol/L N 2-11 Glucose 53 mg/dL Low 70-100 Blood Urea Nitrogen 18 mg/dL N 6-24 Creatinine 1.20 mg/dL High 0.51-0.95 BUN/Creatinine Ratio 15.0 N 8-20 Calcium 8.7 mg/dL N 8.6-10.3 Total Protein 6.1 g/dL Low 6.4-8.9 Albumin 3.2 g/dL N 3.2-5.2 Globulin 2.9 g/dL N 2-4 Albumin/Globulin Ratio 1.1 N 1-3 Total Bilirubin 0.20 mg/dL N 0.2-1.0 Alkaline Phosphatase 86 U/L N 34-104 Alt 18 U/L N 7-52 Ast 24 U/L N 13-39 Egfr Non- 47.4 >60 Egfr 60.9 >60 26 Laboratory test 08/29/2017 [facility] Lipase < 10 U/L Low 11.0 -82.[address] [place] [address] [phone] CRP High Sensitivity 1.79 mg/L 27 Troponin-I (TnI) 0.00 ng/mL <0.04 CBC Auto Diff 08/29/2017 [facility] White Blood 9.1 10^3/uL N 3.5-10.[address] [place] [address] [phone] Red Blood Count 4.06 10^6/uL N 4.0-5.4 Hemoglobin 10.8 g/dL Low 12.0-16.0 Hematocrit 33 % Low 35-47 Mean Corpuscular Volume 82 fL N 80-97 Mean Corpuscular Hemoglobin 27 pg N 27-31 Mean Corpuscular HGB Conc 33 g/dL N 31-36 Red Cell Distribution Width 19 % High 10.5-15 Platelet Count 173 10^3/uL N 150-450 Mean Platelet Volume 10 um3 N 7.4-10.4 Abs Neutrophils 5.1 10^3/uL N 1.5-7.7 Abs Lymphocytes 2.5 10^3/uL N 1.0-4.8 Abs Monocytes 0.6 10^3/uL N 0-0.8 Abs Eosinophils 1.0 10^3/uL High 0-0.6 Abs Basophils 0 10^3/uL N 0-0.2 Abs Nucleated RBC 0 10^3/uL Granulocyte % 56.0 % N 38-83 Lymphocyte % 27.1 % N 25-47 Monocyte % 6.0 % N 1-9 Eosinophil % 10.6 % High 0-6 Basophil % 0.3 % N 0-2 Nucleated Red Blood Cells % 0 Laboratory test 08/29/2017 [facility] B-Type 21 pg/mL [address] [place] [address] Peptide BNP [phone] CBC Auto Diff 08/26/2017 [facility] White Blood Count 9.0 10^3/ uL N 3.5-[address] 0.8 [place] [address] [phone] Red Blood Count 4.42 10^6/uL N 4.0-5.4 Hemoglobin 11.9 g/dL Low 12.0-16.0 Hematocrit 37 % N 35-47 Mean Corpuscular Volume 83 fL N 80-97 Mean Corpuscular Hemoglobin 27 pg N 27-31 Mean Corpuscular HGB Conc 33 g/dL N 31-36 Red Cell Distribution Width 19 % High 10.5-15 Platelet Count 187 10^3/uL N 150-450 Mean Platelet Volume 9 um3 N 7.4-10.4 Abs Neutrophils 5.9 10^3/uL N 1.5-7.7 Abs Lymphocytes 1.6 10^3/uL N 1.0-4.8 Abs Monocytes 0.4 10^3/uL N 0-0.8 Abs Eosinophils 1.0 10^3/uL High 0-0.6 Abs Basophils 0 10^3/uL N 0-0.2 Abs Nucleated RBC 0 10^3/uL Granulocyte % 65.5 % N 38-83 Lymphocyte % 17.9 % Low 25-47 Monocyte % 4.6 % N 1-9 Eosinophil % 11.5 % High 0-6 Basophil % 0.5 % N 0-2 Nucleated Red Blood Cells % 0 Laboratory test 08/26/2017 [facility] Troponin-I (TnI) 0.01 ng/ mL <0.04 finding [address] [place] [address] [phone] Comp Metabolic 08/26/2017 [facility] Sodium 139 mmol/L N 133- 145 Panel [address] [place] [address] [phone] Potassium 5.0 mmol/L N 3.5-5.0 Chloride 105 mmol/L N 101-111 Co2 Carbon Dioxide 29 mmol/L N 22-32 Anion Gap 5 mmol/L N 2-11 Glucose 171 mg/dL High 70-100 Blood Urea Nitrogen 12 mg/dL N 6-24 Creatinine 0.94 mg/dL N 0.51-0.95 BUN/Creatinine Ratio 12.8 N 8-20 Calcium 9.1 mg/dL N 8.6-10.3 Total Protein 6.7 g/dL N 6.4-8.9 Albumin 3.5 g/dL N 3.2-5.2 Globulin 3.2 g/dL N 2-4 Albumin/Globulin Ratio 1.1 N 1-3 Total Bilirubin 0.20 mg/dL N 0.2-1.0 Alkaline Phosphatase 106 U/L High 34-104 Alt 20 U/L N 7-52 Ast 27 U/L N 13-39 Egfr Non- 62.8 >60 Egfr 80.7 >60 29 Inr/Protime 08/26/2017 [facility] Inr 0.82 N 0.77-1.[address] [place] [address] [phone] Laboratory test 08/26/2017 [facility] Partial 27.7 N 26.0- 36.3 finding 101 [facility] [place] [place] [address] Time PTT [phone] Laboratory test 08/25/2017 [facility] Point of 157 mg/dL High 70-100 [address] [place] [address] [place] [address] Glucose [phone] Urinalysis 08/25/2017 [facility] [place] [address] [phone] Urine Appearance Clear Urine Specific [place] 1.010 N 1.010-1.030 Urine pH 5.0 N 5-9 Urine Urobilinogen Negative Negative Urine Ketones Negative Negative Urine Protein Negative Negative Urine Leukocytes Negative Negative Urine Blood Negative Negative Urine Nitrite Negative Negative Urine Bilirubin Negative Negative Urine Glucose 3+(>=500 mg/dL) Abnormal Negative Laboratory test 08/25/2017 [facility] Point of 289 mg/dL High 70-100 31 finding 101 [facility] [place] [address] [phone] Venous Blood 08/25/2017 [facility] Venous Blood 7.48 High 7.33 -7.43 Gas [address] [facility] [place] [address] [phone] Venous Pco2 31 mmHg Low 41-51 Venous Po2 98 mmHg High 35-45 Venous O2 Saturation 95.3 % High 70-80 Venous Blood Base Excess 0.1 N 0-4 32 Venous Bicarbonate Hco3 25.0 mmol/L N 24-28 CBC Auto Diff 08/25/2017 [facility] White Blood 8.9 10^3/uL N 3.5-10.8 [address] [facility] [place] [address] [phone] Red Blood Count 4.33 10^6/uL N 4.0-5.4 Hemoglobin 11.5 g/dL Low 12.0-16.0 Hematocrit 35 % N 35-47 Mean Corpuscular Volume 81 fL N 80-97 Mean Corpuscular Hemoglobin 27 pg N 27-31 Mean Corpuscular HGB Conc 33 g/dL N 31-36 Red Cell Distribution Width 18 % High 10.5-15 Platelet Count 186 10^3/uL N 150-450 Mean Platelet Volume 9 um3 N 7.4-10.4 Abs Neutrophils 5.5 10^3/uL N 1.5-7.7 Abs Lymphocytes 2.0 10^3/uL N 1.0-4.8 Abs Monocytes 0.4 10^3/uL N 0-0.8 Abs Eosinophils 0.9 10^3/uL High 0-0.6 Abs Basophils 0 10^3/uL N 0-0.2 Abs Nucleated RBC 0 10^3/uL Granulocyte % 62.2 % N 38-83 Lymphocyte % 22.3 % Low 25-47 Monocyte % 5.0 % N 1-9 Eosinophil % 10.0 % High 0-6 Basophil % 0.5 % N 0-2 Nucleated Red Blood Cells % 0 Comp Metabolic Panel 08/25/2017 [facility] Sodium 134 mmol/L N 133-[address] [place] [address] [phone] Potassium 4.8 mmol/L N 3.5-5.0 Chloride 101 mmol/L N 101-111 Co2 Carbon Dioxide 29 mmol/L N 22-32 Anion Gap 4 mmol/L N 2-11 Glucose 366 mg/dL High 70-100 Blood Urea Nitrogen 13 mg/dL N 6-24 Creatinine 0.87 mg/dL N 0.51-0.95 BUN/Creatinine Ratio 14.9 N 8-20 Calcium 8.9 mg/dL N 8.6-10.3 Total Protein 6.6 g/dL N 6.4-8.9 Albumin 3.4 g/dL N 3.2-5.2 Globulin 3.2 g/dL N 2-4 Albumin/Globulin Ratio 1.1 N 1-3 Total Bilirubin 0.20 mg/dL N 0.2-1.0 Alkaline Phosphatase 108 U/L High 34-104 Alt 19 U/L N 7-52 Ast 22 U/L N 13-39 Egfr Non- 68.6 >60 Egfr 88.3 >60 33 Laboratory test 08/25/2017 [facility] C Reactive 3.27 mg/L N < 5.00 [address] [place] [address] [phone] Laboratory test 08/23/2017 [facility] Point of Care 224 mg/dL High 70-100 [address] [place] [address] [phone] Laboratory test 08/22/2017 [facility] Glucose 417 mg/dL High 70-[address] [place] [address] [phone] Laboratory test 08/22/2017 [facility] Point of Care > 444 mg/dL High 70-100 [address] [place] [address] [phone] Urinalysis 08/22/2017 [facility] Urine Color Yellow Profile [address] [place] [address] [phone] Urine Appearance Cloudy Urine Specific [place] 1.023 N 1.010-1.030 Urine pH 6.0 N 5-9 Urine Urobilinogen Negative Negative Urine Ketones Negative Negative Urine Protein Negative Negative Urine Leukocytes Trace Abnormal Negative Urine Blood 1+ Abnormal Negative Urine Nitrite Negative Negative Urine Bilirubin Negative Negative Urine Glucose 3+(>=500 mg/dL) Abnormal Negative Urine White Blood Cell 1+(6-10/hpf) Abnormal Absent Urine Red Blood Cell 3+(>10/hpf) Abnormal Absent Urine Bacteria 2+ Abnormal Absent Urine Squamous Epithelial Cell Present Abnormal Absent Urine Culture And 08/22/2017 [facility] Urine Culture SEE RESULT [address] [place] [address] [phone] CBC Auto Diff 08/22/2017 [facility] White Blood 8.9 10^3/uL N 3.5-[address] Count 0.8 [place] [address] [phone] Red Blood Count 4.19 10^6/uL N 4.0-5.4 Hemoglobin 11.2 g/dL Low 12.0-16.0 Hematocrit 34 % Low 35-47 Mean Corpuscular Volume 82 fL N 80-97 Mean Corpuscular Hemoglobin 27 pg N 27-31 Mean Corpuscular HGB Conc 33 g/dL N 31-36 Red Cell Distribution Width 18 % High 10.5-15 Platelet Count 209 10^3/uL N 150-450 Mean Platelet Volume 9 um3 N 7.4-10.4 Abs Neutrophils 5.2 10^3/uL N 1.5-7.7 Abs Lymphocytes 2.3 10^3/uL N 1.0-4.8 Abs Monocytes 0.5 10^3/uL N 0-0.8 Abs Eosinophils 0.9 10^3/uL High 0-0.6 Abs Basophils 0.1 10^3/uL N 0-0.2 Abs Nucleated RBC 0 10^3/uL Granulocyte % 58.2 % N 38-83 Lymphocyte % 25.2 % N 25-47 Monocyte % 5.7 % N 1-9 Eosinophil % 10.1 % High 0-6 Basophil % 0.8 % N 0-2 Nucleated Red Blood Cells % 0.1 Venous Blood Gas 08/22/2017 [facility] Venous Blood pH 7.42 N 7.33-7.43 [address] [place] [address] [phone] Venous Pco2 49 mmHg N 41-51 Venous Po2 36 mmHg N 35-45 Venous O2 Saturation 78.1 % N 70-80 Venous Blood Base Excess 6.3 High 0-4 38 Venous Bicarbonate Hco3 29.4 mmol/L High 24-28 Inr/Protime 08/22/2017 [facility] Inr 0.91 N 0.77-1.[address] [place] [address] [phone] Laboratory test 08/22/2017 [facility] Lactic Acid 1.3 N 0.5- 2.0 [address] mmol/[place] [address] [phone] Comp Metabolic 08/22/2017 [facility] Sodium 131 Low 133-[address] mmol/[place] [address] [phone] Potassium 4.6 mmol/L N 3.5-5.0 Chloride 98 mmol/L Low 101-111 Co2 Carbon Dioxide 29 mmol/L N 22-32 Anion Gap 4 mmol/L N 2-11 Blood Urea Nitrogen 15 mg/dL N 6-24 Creatinine 0.91 mg/dL N 0.51-0.95 BUN/Creatinine Ratio 16.5 N 8-20 Calcium 9.0 mg/dL N 8.6-10.3 Total Protein 6.5 g/dL N 6.4-8.9 Albumin 3.3 g/dL N 3.2-5.2 Globulin 3.2 g/dL N 2-4 Albumin/Globulin Ratio 1.0 N 1-3 Total Bilirubin 0.30 mg/dL N 0.2-1.0 Alkaline Phosphatase 112 U/L High 34-104 Alt 15 U/L N 7-52 Ast 16 U/L N 13-39 Egfr Non- 65.2 >60 Egfr 83.8 >60 40 Glucose 543 mg/dL High 70-100 41 Laboratory test 08/22/2017 [facility] Magnesium 2.0 mg/dL N 1.9-2.[address] [place] [address] [phone] Creatine Kinase(CK) 121 U/L N 10-223 C Reactive Protein 4.62 mg/L N < 5.00 42 Troponin-I (TnI) 0.01 ng/mL <0.04 Laboratory test 08/18/2017 [facility] Point of Care 180 mg/dL High 70-100 [address] [place] [address] [phone] Urinalysis 08/17/2017 [facility] Urine Color Yellow Profile [address] [place] [address] [phone] Urine Appearance Cloudy Urine Specific [place] 1.016 N 1.010-1.030 Urine pH 5.0 N 5-9 Urine Urobilinogen Negative Negative Urine Ketones Negative Negative Urine Protein Negative Negative Urine Leukocytes Negative Negative Urine Blood Negative Negative Urine Nitrite Negative Negative Urine Bilirubin Negative Negative Urine Glucose 3+(>=500 mg/dL) Abnormal Negative Urine Drug 08/17/2017 [facility] Amphetamine Ur None Detected None Detect SCR ED & [address] [place] [address] [phone] Barbiturates Urine Screen None Detected None Detect Benzodiazepine Urine Screen None Detected None Detect Urine Cannabinoids Screen None Detected None Detect Urine Cocaine Screen None Detected None Detect Urine Opiates Screen None Detected None Detect Urine Phencyclidine Screen None Detected None Detect 44 Laboratory test 08/17/2017 [facility] Point of 276 mg/dL High 70-100 [address] [place] [address] [phone] Laboratory test 08/17/2017 [facility] Point of > 444 High 70- 100 [address] Care Glucose mg/[place] [address] [phone] Venous Blood 08/17/2017 [facility] Venous Blood 7.36 N 7.33- 7.[address] [place] [address] [phone] Venous Pco2 48 mmHg N 41-51 Venous Po2 29 mmHg Low 35-45 Venous O2 Saturation 59.9 % Low 70-80 Venous Blood Base Excess 1.1 N 0-4 47 Venous Bicarbonate Hco3 24.9 mmol/L N 24-28 CBC Auto Diff 08/17/2017 [facility] White Blood 10.8 10^3/uL N 3.5-10.[address] [place] [address] [phone] Red Blood Count 4.74 10^6/uL N 4.0-5.4 Hemoglobin 12.4 g/dL N 12.0-16.0 Hematocrit 39 % N 35-47 Mean Corpuscular Volume 82 fL N 80-97 Mean Corpuscular Hemoglobin 26 pg Low 27-31 Mean Corpuscular HGB Conc 32 g/dL N 31-36 Red Cell Distribution Width 18 % High 10.5-15 Platelet Count 271 10^3/uL N 150-450 Mean Platelet Volume 9 um3 N 7.4-10.4 Abs Neutrophils 7.3 10^3/uL N 1.5-7.7 Abs Lymphocytes 2.3 10^3/uL N 1.0-4.8 Abs Monocytes 0.5 10^3/uL N 0-0.8 Abs Eosinophils 0.7 10^3/uL High 0-0.6 Abs Basophils 0.1 10^3/uL N 0-0.2 Abs Nucleated RBC 0 10^3/uL Granulocyte % 67.3 % N 38-83 Lymphocyte % 21.6 % Low 25-47 Monocyte % 4.4 % N 1-9 Eosinophil % 6.0 % N 0-6 Basophil % 0.7 % N 0-2 Nucleated Red Blood Cells % 0 Comp Metabolic Panel 08/17/2017 [facility] Sodium 133 mmol/L N 133-[address] [place] [address] [phone] Potassium 4.9 mmol/L N 3.5-5.0 Chloride 101 mmol/L N 101-111 Co2 Carbon Dioxide 25 mmol/L N 22-32 Anion Gap 7 mmol/L N 2-11 Blood Urea Nitrogen 9 mg/dL N 6-24 Creatinine 0.83 mg/dL N 0.51-0.95 BUN/Creatinine Ratio 10.8 N 8-20 Calcium 8.7 mg/dL N 8.6-10.3 Total Protein 7.5 g/dL N 6.4-8.9 Albumin 3.7 g/dL N 3.2-5.2 Globulin 3.8 g/dL N 2-4 Albumin/Globulin Ratio 1.0 N 1-3 Total Bilirubin 0.20 mg/dL N 0.2-1.0 Alkaline Phosphatase 137 U/L High 34-104 Alt 20 U/L N 7-52 Ast 21 U/L N 13-39 Egfr Non- 72.5 >60 Egfr 93.2 >60 48 Glucose 543 mg/dL High 70-100 49 Laboratory test 08/17/2017 [facility] Acetaminophen < 15 g/mL 50 finding [address] [place] [address] [phone] Alcohol < 10 mg/dL N <10 Salicylate < 2.50 mg/dL <30 TSH (Thyroid Stim Horm) 2.76 mcIU/mL N 0.34-5.60 Lamotrigine (Lamictal) 4.2 g/mL 2.5 - 15.0 51 Laboratory test 08/17/2017 [facility] Point of > 444 mg/dL High 70-100 52 finding [address] [place], [place] [id number] [phone] Laboratory test 08/09/2017 [facility] Point of 266 mg/dL High 70-100 53 finding [address] [place] [address] [phone] Urinalysis 08/08/2017 [facility] Urine Color Yellow Profile [address] [place] [address] [phone] Urine Appearance Cloudy Urine Specific [place] 1.022 N 1.010-1.030 Urine pH 6.0 N 5-9 Urine Urobilinogen Negative Negative Urine Ketones Negative Negative Urine Protein Negative Negative Urine Leukocytes Negative Negative Urine Blood Negative Negative Urine Nitrite Negative Negative Urine Bilirubin Negative Negative Urine Glucose 3+(>=500 mg/dL) Abnormal Negative Urine Drug 08/08/2017 [facility] Amphetamine Ur None Detected None Detect SCR ED & [address] [place] [address] [phone] Barbiturates Urine Screen None Detected None Detect Benzodiazepine Urine Screen None Detected None Detect Urine Cannabinoids Screen None Detected None Detect Urine Cocaine Screen None Detected None Detect Urine Opiates Screen None Detected None Detect Urine Phencyclidine Screen None Detected None Detect 54 CBC Auto 08/08/2017 [facility] White Blood 11.9 10^3/uL High 3.5-10.[address] [place] [address] [phone] Red Blood Count 4.78 10^6/uL N 4.0-5.4 Hemoglobin 12.3 g/dL N 12.0-16.0 Hematocrit 39 % N 35-47 Mean Corpuscular Volume 81 fL N 80-97 Mean Corpuscular Hemoglobin 26 pg Low 27-31 Mean Corpuscular HGB Conc 32 g/dL N 31-36 Red Cell Distribution Width 18 % High 10.5-15 Platelet Count 298 10^3/uL N 150-450 Mean Platelet Volume 9 um3 N 7.4-10.4 Abs Neutrophils 7.4 10^3/uL N 1.5-7.7 Abs Lymphocytes 3.1 10^3/uL N 1.0-4.8 Abs Monocytes 0.6 10^3/uL N 0-0.8 Abs Eosinophils 0.7 10^3/uL High 0-0.6 Abs Basophils 0.1 10^3/uL N 0-0.2 Abs Nucleated RBC 0 10^3/uL Granulocyte % 62.0 % N 38-83 Lymphocyte % 25.9 % N 25-47 Monocyte % 5.2 % N 1-9 Eosinophil % 5.7 % N 0-6 Basophil % 1.2 % N 0-2 Nucleated Red Blood Cells % 0 Comp Metabolic Panel 08/08/2017 [facility] Sodium 136 mmol/L N 133-[address] [place] [address] [phone] Potassium 4.3 mmol/L N 3.5-5.0 Chloride 100 mmol/L Low 101-111 Co2 Carbon Dioxide 29 mmol/L N 22-32 Anion Gap 7 mmol/L N 2-11 Glucose 341 mg/dL High 70-100 Blood Urea Nitrogen 18 mg/dL N 6-24 Creatinine 0.81 mg/dL N 0.51-0.95 BUN/Creatinine Ratio 22.2 High 8-20 Calcium 9.5 mg/dL N 8.6-10.3 Total Protein 7.8 g/dL N 6.4-8.9 Albumin 3.7 g/dL N 3.2-5.2 Globulin 4.1 g/dL High 2-4 Albumin/Globulin Ratio 0.9 Low 1-3 Total Bilirubin 0.20 mg/dL N 0.2-1.0 Alkaline Phosphatase 158 U/L High 34-104 Alt 15 U/L N 7-52 Ast 16 U/L N 13-39 Egfr Non- 74.5 >60 Egfr 95.9 >60 55 Laboratory test 08/08/2017 [facility] Acetaminophen < 15 g/mL 56 finding [address] [place] [address] [phone] Alcohol < 10 mg/dL N <10 Salicylate < 2.50 mg/dL <30 TSH (Thyroid Stim Horm) 2.67 mcIU/mL N 0.34-5.60 Lamotrigine (Lamictal) 2.5 g/mL 2.5 - 15.0 57 Laboratory test 08/04/2017 [facility] Point of Care 258 mg/dL High 70-100 [address] [place] [address] [phone] Laboratory test 08/04/2017 [facility] Point of Care 175 mg/dL High 70-100 [address] [place] [address] [phone] Laboratory test 08/04/2017 [facility] Point of Care 284 mg/dL High 70-100 [address] [place] [address] [phone] Urinalysis 08/03/2017 [facility] Urine Color Yellow Profile [address] [place] [address] [phone] Urine Appearance Cloudy Urine Specific [place] 1.012 N 1.010-1.030 Urine pH 5.0 N 5-9 Urine Urobilinogen Negative Negative Urine Ketones Negative Negative Urine Protein Negative Negative Urine Leukocytes Trace Abnormal Negative Urine Blood Negative Negative Urine Nitrite Negative Negative Urine Bilirubin Negative Negative Urine Glucose 3+(>=500 mg/dL) Abnormal Negative Urine White Blood Cell Trace(0-5/hpf) Absent Urine Red Blood Cell Absent Absent Urine Bacteria 1+ Abnormal Absent Urine Squamous Epithelial Cell Present Abnormal Absent Urine Amorphous Crystals Present Abnormal Absent Urine Drug 08/03/2017 [facility] Amphetamine Ur None Detected None Detect SCR ED & [address] [place] [address] [phone] Barbiturates Urine Screen None Detected None Detect Benzodiazepine Urine Screen None Detected None Detect Urine Cannabinoids Screen None Detected None Detect Urine Cocaine Screen None Detected None Detect Urine Opiates Screen None Detected None Detect Urine Phencyclidine Screen None Detected None Detect 61 Urine Culture And 08/03/2017 [facility] Urine SEE RESULT [address] [place] [address] [phone] CBC Auto Diff 08/03/2017 [facility] White Blood 10.9 High 3.5- [address] Count 10^3/uL 0.8 [place], [place] [id number] [phone] Red Blood Count 4.61 10^6/uL N 4.0-5.4 Hemoglobin 12.1 g/dL N 12.0-16.0 Hematocrit 37 % N 35-47 Mean Corpuscular Volume 81 fL N 80-97 Mean Corpuscular Hemoglobin 26 pg Low 27-31 Mean Corpuscular HGB Conc 32 g/dL N 31-36 Red Cell Distribution Width 18 % High 10.5-15 Platelet Count 241 10^3/uL N 150-450 Mean Platelet Volume 9 um3 N 7.4-10.4 Abs Neutrophils 7.2 10^3/uL N 1.5-7.7 Abs Lymphocytes 2.4 10^3/uL N 1.0-4.8 Abs Monocytes 0.6 10^3/uL N 0-0.8 Abs Eosinophils 0.6 10^3/uL N 0-0.6 Abs Basophils 0.1 10^3/uL N 0-0.2 Abs Nucleated RBC 0 10^3/uL Granulocyte % 65.9 % N 38-83 Lymphocyte % 22.1 % Low 25-47 Monocyte % 5.9 % N 1-9 Eosinophil % 5.5 % N 0-6 Basophil % 0.6 % N 0-2 Nucleated Red Blood Cells % 0 Comp Metabolic Panel 08/03/2017 [facility] Sodium 132 mmol/L Low 133-[address] [place] [address] [phone] Potassium 4.6 mmol/L N 3.5-5.0 Chloride 98 mmol/L Low 101-111 Co2 Carbon Dioxide 27 mmol/L N 22-32 Anion Gap 7 mmol/L N 2-11 Glucose 399 mg/dL High 70-100 Blood Urea Nitrogen 14 mg/dL N 6-24 Creatinine 0.88 mg/dL N 0.51-0.95 BUN/Creatinine Ratio 15.9 N 8-20 Calcium 8.9 mg/dL N 8.6-10.3 Total Protein 7.4 g/dL N 6.4-8.9 Albumin 3.4 g/dL N 3.2-5.2 Globulin 4.0 g/dL N 2-4 Albumin/Globulin Ratio 0.9 Low 1-3 Total Bilirubin 0.20 mg/dL N 0.2-1.0 Alkaline Phosphatase 183 U/L High 34-104 Alt 20 U/L N 7-52 Ast 21 U/L N 13-39 Egfr Non- 67.7 >60 Egfr 87.1 >60 63 Laboratory test 08/03/2017 [facility] Acetaminophen < 15 g/mL [address] [place] [address] [phone] Alcohol < 10 mg/dL N <10 Salicylate < 2.50 mg/dL <30 TSH (Thyroid Stim Horm) 0.60 mcIU/mL N 0.34-5.60 Laboratory test 08/02/2017 [facility] Troponin-I 0.01 <0.[address] (TnI) ng/[place] [address] [phone] CBC Auto Diff 08/02/2017 [facility] White Blood 13.8 High 3.5- 10.[address] Count 10^3/[place] [address] [phone] Red Blood Count 4.64 10^6/uL N 4.0-5.4 Hemoglobin 12.2 g/dL N 12.0-16.0 Hematocrit 37 % N 35-47 Mean Corpuscular Volume 80 fL N 80-97 Mean Corpuscular Hemoglobin 26 pg Low 27-31 Mean Corpuscular HGB Conc 33 g/dL N 31-36 Red Cell Distribution Width 17 % High 10.5-15 Platelet Count 244 10^3/uL N 150-450 Mean Platelet Volume 9 um3 N 7.4-10.4 Abs Neutrophils 10.2 10^3/uL High 1.5-7.7 Abs Lymphocytes 2.3 10^3/uL N 1.0-4.8 Abs Monocytes 0.6 10^3/uL N 0-0.8 Abs Eosinophils 0.6 10^3/uL N 0-0.6 Abs Basophils 0.1 10^3/uL N 0-0.2 Abs Nucleated RBC 0.01 10^3/uL Granulocyte % 73.7 % N 38-83 Lymphocyte % 17.0 % Low 25-47 Monocyte % 4.6 % N 1-9 Eosinophil % 4.0 % N 0-6 Basophil % 0.7 % N 0-2 Nucleated Red Blood Cells % 0 Comp Metabolic Panel 08/02/2017 [facility] Sodium 133 mmol/L N 133-[address] [place] [address] [phone] Potassium 4.7 mmol/L N 3.5-5.0 Chloride 101 mmol/L N 101-111 Co2 Carbon Dioxide 26 mmol/L N 22-32 Anion Gap 6 mmol/L N 2-11 Glucose 168 mg/dL High 70-100 Blood Urea Nitrogen 16 mg/dL N 6-24 Creatinine 0.79 mg/dL N 0.51-0.95 BUN/Creatinine Ratio 20.3 High 8-20 Calcium 9.7 mg/dL N 8.6-10.3 Total Protein 7.5 g/dL N 6.4-8.9 Albumin 3.6 g/dL N 3.2-5.2 Globulin 3.9 g/dL N 2-4 Albumin/Globulin Ratio 0.9 Low 1-3 Total Bilirubin 0.20 mg/dL N 0.2-1.0 Alkaline Phosphatase 203 U/L High 34-104 Alt 25 U/L N 7-52 Ast 33 U/L N 13-39 Egfr Non- 76.7 >60 Egfr 98.7 >60 65 Laboratory test 08/02/2017 [facility] Troponin-I 0.03 <0.[address] (TnI) ng/[place] [address] [phone] Urine Culture And 08/01/2017 [facility] Urine Culture SEE 66, Sensitivities [address] RESULT 67 [place] [address] BELOW [phone] Laboratory test 06/13/2017 [facility] House Hemoglobin 9.2 High 5-7 finding A1c Laboratory test 06/03/2017 [facility] Point of Care 184 mg/dL High 70-100 [address] [place] [address] [phone] Laboratory test 06/03/2017 [facility] Point of Care 256 mg/dL High 70-100 [address] [place] [address] [phone] Laboratory test 06/03/2017 [facility] Point of Care 329 mg/dL High 70-100 [address] [place] [address] [phone] Laboratory test 06/03/2017 [facility] Point of Care 384 mg/dL High 70-100 [address] [place] [address] [phone] Laboratory test 06/03/2017 [facility] Point of Care > 444 High 70-100 [address] Glucose mg/[place] [address] [phone] Laboratory test 06/03/2017 [facility] Point of Care > 444 High 70-100 [address] Glucose mg/dL [place], [place] [id number] [phone] 1 Stadium Attendant: [id number] 2 Stadium Attendant: [id number] 3 The urine specimen was tested at the listed cutoffs: Drug class test level (ng/mL) Amphetamines 500 Barbiturates 200 Benzodiazepine metabolites 200 Cocaine metabolites 150 Cannabinoids 50 Opiates 300 Pcp 25 Specimen was received without chain of custody. Results should be used for medical purposes only. 4 Because ethnic data is not always readily [...] 15-29 5 Kidney failure <15 (or dialysis) 5 Therapeutic concentration: <50 ug/mL Toxic concentration: >120 ug/mL 6 [facility] Severe Sepsis and Septic Shock Management Bundle Measure requires all lactic acids initially measuring >2.0 mmol/L be repeated. 7 Stadium Attendant: [id number] 8 Because ethnic data is not always [...] 5 Kidney failure <15 (or dialysis) 9 [facility] Severe Sepsis and Septic Shock Management Bundle Measure requires all lactic acids initially measuring >2.0 mmol/L be repeated. 10 SEE RESULT BELOW Name: CECILIO ALFARO : [address]: Danya Marquez MD Acct: [id number] Unit: [id number] AGE: 52 Location: [facility] Re05/15/18 SEX: F Status: REG REF SPEC: [id number] ANKUR: 05/15/18-[address] [facility] [address]: Danya Marquez MD REQ: [id number] RECD: 05/15/18 STATUS: COMP _ SOURCE: STOOL SPDESC: ORDERED: C. diff PCR Procedure Result Reported Site Stool Specimen Description Final 05/15/18- 1306 ML Stool Color [place]ales Stool Form Semi-formed Stool Consistency Firm C. difficile PCR Final 05/15/18- 1306 ML Test not performed * ML - Main Lab . END OF REPORT DEPARTMENT OF PATHOLOGY, [address] [place] [address] Tay Gamboa M.D. Director [facility] # [id number] 11 Stadium Attendant: [id number] Stadium Attendant: [id number] 13 [facility] Severe Sepsis and Septic Shock Management Bundle Measure requires all lactic acids initially measuring >2.0 mmol/L be repeated. 14 Because ethnic data is not always [...] 5 Kidney failure <15 (or dialysis) 15 Unable to calculate due to low microalbumin 16 Presumptive Positive Presumptive positive results are unconfirmed. 17 The urine specimen was tested at the listed cutoffs: Drug class test level (ng/mL) Amphetamines 500 Barbiturates 200 Benzodiazepine metabolites 200 Cocaine metabolites 150 Cannabinoids 50 Opiates 300 Pcp 25 Specimen was received without chain of custody. Results should be used for medical purposes only. 18 Reference ranges based on room air. 19 [facility] Severe Sepsis and Septic Shock Management Bundle Measure requires all lactic acids initially measuring >2.0 mmol/L be repeated. 20 Because ethnic data is not always readily [...] 15-29 5 Kidney failure <15 (or dialysis) 21 Therapeutic concentration: <50 ug/mL Toxic concentration: >120 ug/mL 22 Because ethnic data is not always readily [...] 15-29 5 Kidney failure <15 (or dialysis) 23 Low risk: <1.00 Average risk: 1.00-3.00 High risk: >3.00 24 Stadium Attendant: [id number] 25 Stadium Attendant: [id number] 26 Because ethnic data is not always [...] 5 Kidney failure <15 (or dialysis) 27 Low risk: <1.00 Average risk: 1.00-3.00 High risk: >3.00 28 >100 to <200 pg/mL: likely compensated congestive heart failure (CHF) 200 to 400 pg/mL: likely moderate CHF >400 pg/mL: likely moderate to severe CHF 29 Because ethnic data is not always readily [...] 15-29 5 Kidney failure <15 (or dialysis) 30 Stadium Attendant: [id number] 31 Stadium Attendant: [id number] 32 Reference ranges based on room air. 33 Because ethnic data is not always [...] 5 Kidney failure <15 (or dialysis) 34 Acute inflammation: >10.00 35 Stadium Attendant: [id number] 36 Stadium Attendant: [id number] 37 SEE RESULT BELOW Name: CECILIO ALFARO : [address]: Violeta Yusuf MD Acct: [id number] Unit: [id number] AGE: 52 Location: ED Re08/22/17 SEX: F Status: DEP ER SPEC: [id number] ANKUR: 08/22/[address]: Violeta Yusuf MD REQ: [id number] RECD: 08/22/17 STATUS: TASHA BARFIELD DR: Chapo Aguila MD _ SOURCE: URINE SPDESC: ORDERED: Urine Culture Procedure Result Reported Site Urine Culture Final 08/23/17- 1607 ML Mixed seema; possible contamination. Suggest resubmission. * ML - MAIN LAB ([facility]) . END OF REPORT * ML=Testing performed at Main Lab DEPARTMENT OF PATHOLOGY, [address] [place] [address] Tay Gamboa M.D. Director [facility] # [id number] 38 Reference ranges based on room air. 39 [facility] Severe Sepsis and Septic Shock Management Bundle Measure requires all lactic acids initially measuring >2.0 mmol/L be repeated. 40 Because ethnic data is not always readily [...] 15-29 5 Kidney failure <15 (or dialysis) 41 Critical Result [id number] Called to JIMENA at: 21:48:40 by:[id number] Read back by:[email or web address] 42 Acute inflammation: >10.00 43 Stadium Attendant: [id number] 44 The urine specimen was tested at the listed cutoffs: Drug class test level (ng/mL) Amphetamines 500 Barbiturates 200 Benzodiazepine metabolites 200 Cocaine metabolites 150 Cannabinoids 50 Opiates 300 Pcp 25 Specimen was received without chain of custody. Results should be used for medical purposes only. 45 Stadium Attendant: [id number] 46 Stadium Attendant: [id number] 47 Reference ranges based on room air. 48 Because ethnic data is not always readily [...] 15-29 5 Kidney failure <15 (or dialysis) 49 Critical Result [id number] Called to [id number] at: 18:00:03 by:[id number] Read back by:[id number] 50 Therapeutic concentration: <50 ug/mL Toxic concentration: >120 ug/mL 51 ADDITIONAL INFORMATION This test was developed and its performance characteristics determined by [facility] in a manner consistent with CLIA requirements. This test has not been cleared or approved by the U.S. Food and Drug Administration. Test Performed by: [facility] [address] [place] [address] 52 Stadium Attendant: [id number] Stadium Attendant: [id number] 54 The urine specimen was tested at the listed cutoffs: Drug class test level (ng/mL) Amphetamines 500 Barbiturates 200 Benzodiazepine metabolites 200 Cocaine metabolites 150 Cannabinoids 50 Opiates 300 Pcp 25 Specimen was received without chain of custody. Results should be used for medical purposes only. 55 Because ethnic data is not always readily [...] 15-29 5 Kidney failure <15 (or dialysis) 56 Therapeutic concentration: <50 ug/mL Toxic concentration: >120 ug/mL 57 ADDITIONAL INFORMATION This test was developed and its performance characteristics determined by [facility] in a manner consistent with CLIA requirements. This test has not been cleared or approved by the U.S. Food and Drug Administration. Test Performed by: [facility] [address] [place] [address] 58 Stadium Attendant: [id number] 59 Stadium Attendant: [id number] Stadium Attendant: [id number] 61 The urine specimen was tested at the listed cutoffs: Drug class test level (ng/mL) Amphetamines 500 Barbiturates 200 Benzodiazepine metabolites 200 Cocaine metabolites 150 Cannabinoids 50 Opiates 300 Pcp 25 Specimen was received without chain of custody. Results should be used for medical purposes only. 62 SEE RESULT BELOW Name: CECILIO ALFARO : [address]: Sendy Mcdowell MD Acct: [id number] Unit: [id number] AGE: 52 Location: ED Re08/03/17 SEX: F Status: REG ER SPEC: [id number] ANKUR: 08/03/[address]: Sendy Mcdowell MD REQ: [id number] RECD: 08/03/17 STATUS: TASHA BARFIELD DR: Chapo Aguila MD _ SOURCE: URINE SPDESC: ORDERED: Urine Culture Procedure Result Reported Site Urine Culture Final 08/05/17- 1225 ML No growth of clinically significant organisms * ML - MAIN LAB ([facility]) . END OF REPORT * ML=Testing performed at Main Lab DEPARTMENT OF PATHOLOGY, [address] [place] [id number] Tay Gamboa M.D. Director [facility] # [id number] 63 Because ethnic data is not always readily [...] 15-29 5 Kidney failure <15 (or dialysis) 64 Therapeutic concentration: <50 ug/mL Toxic concentration: >120 ug/mL 65 Because ethnic data is not always readily [...] 15-29 5 Kidney failure <15 (or dialysis) 66 [id number] 67 SEE RESULT BELOW Name: CECILIO ALFARO : [address]: Any Ramirez MD Acct: [id number] Unit: [id number] AGE: 52 Location: [facility] Re08/01/17 SEX: F Status: DEP ER SPEC: [id number] ANKUR: 08/01/17-[address]: Any Ramirez MD REQ: [id number] RECD: 08/02/17-1104 STATUS: TASHA BARFIELD DR: Chapo Aguila MD _ SOURCE: URINE SPDESC: ORDERED: Urine Culture COMMENTS: [id number] Procedure Result Reported Site Urine Culture Final 08/03/17- 1251 ML Mixed seema; possible contamination. Suggest resubmission. * ML - MAIN LAB ([facility]) . END OF REPORT * ML=Testing performed at Main Lab DEPARTMENT OF PATHOLOGY, [address] [place] [address] Tay Gamboa M.D. Director [facility] # [id number] 68 Stadium Attendant: [id number] Stadium Attendant: [id number] Stadium Attendant: [id number] Stadium Attendant: [id number] Stadium Attendant: [id number] 73 Stadium Attendant: [id number] Procedures Date Code Description Status 11/03/2017 99494 EKG, Interpretation Only Completed 10/26/2017 236380665 Diabetic Retinal Eye Exam Completed 10/11/2017 12127 Inject/Drain Joint/Bursa Major W/O US Completed 06/03/2017 45975 Carpal Tunnel Release Completed 06/03/2017 22746 Carpal Tunnel Release Completed 05/01/2016 88263010 Mammogram Completed 04/06/2016 18628 EEG Recording Awake & Drowsy Completed 04/03/2016 82228 EKG, Interpretation Only Completed 04/29/2015 11422 EEG Recording Awake & Drowsy Completed 04/16/2012 77364 EKG, Interpretation Only Completed 04/16/2012 12780 EKG, Interpretation Only Completed Encounters Type Date Location Provider Dx Diagnosis Office Visit 06/28/2018 Orthopedic Marline Duarte, M65.841 Other synovitis 1:15p [facility] and tenosynovitis, right hand M54.41 Lumbago with sciatica, right side Office Visit 05/22/2018 2:30p [facility] Rosa Schroeder, R19.7 Diarrhea, Medicine - [address] L08.1 Erythrasma R15.1 Fecal smearing Office Visit 05/15/2018 1:30p [facility] Rosa Schroeder, R19.7 Diarrhea, Medicine - [address] F17.210 Nicotine dependence, cigarettes, uncomplicated J45.909 Unspecified asthma, uncomplicated E11.65 Type 2 diabetes mellitus with hyperglycemia Z91.81 History of falling E11.9 Type 2 diabetes mellitus without complications Office Visit 05/08/2018 9:30a [facility] [address] Internal Rosa Schroeder, E11.65 Type 2 diabetes Medicine - MD mellitus with [address] hyperglycemia R15.1 Fecal smearing I10 Essential (primary) hypertension R94.5 Abnormal results of liver function studies F33.3 Major depressv disorder, recurrent, severe w psych symptoms Office Visit 11/04/2017 [facility] Sherita Lui, G92 Toxic encephalopathy 11:25a Assocmatthieu M.D. Hospitalists T50.904A Poisoning by unsp drug/meds/biol subst, undetermined, init F60.3 Borderline personality disorder R40.2432 Kriss coma scale score 3-8, EMR Office Visit 11/03/2017 11:23a Intensivists Ishmael Dumont G92 Toxic encephalopathy Cheng, D.O. F60.3 Borderline personality disorder T50.904A Poisoning by unsp drug/meds/biol subst, undetermined, init R40.2432 Kriss coma scale score 3-8, EMR Office Visit 11/02/2017 11:22a Intensivists Ishmael Dumont R40.2432 Kriss coma Cheng, D.O. scale score 3-8, EMR G92 Toxic encephalopathy T50.904A Poisoning by unsp drug/meds/biol subst, undetermined, init F60.3 Borderline personality disorder Office Visit 10/18/2017 Orthopedic Naveed Lutz M75.31 Calcific tendinitis 9:00a Services Of MD Venecia of right shoulder C.M.A. Office Visit 10/13/2017 [facility] [place] E11.65 Type 2 diabetes 1:40p Medicine - [place], mellitus with Rd M.D. hyperglycemia Z12.31 Encntr screen mammogram for malignant neoplasm of breast Z12.11 Encounter for screening for malignant neoplasm of colon Office Visit 10/11/2017 Orthopedic Naveed Lutz M75.31 Calcific tendinitis 1:30p Services Of MD Venecia of right shoulder C.M.A. Office Visit 09/28/2017 [facility] [address] Jun Cowan E11.65 Type 2 diabetes 1:20p Medicine - [place], mellitus with Perry M.D. hyperglycemia M79.645 Pain in left finger(s) E03.9 Hypothyroidism, unspecified Office Visit 09/19/2017 [facility] [address] Internal [place] E11.65 Type 2 diabetes 2:40p Jaylene Aguila M.D. mellitus with [address] hyperglycemia M54.5 Low back pain Office Visit 08/17/2017 2:10p [facility] [address] Internal Lachelle F33.3 Major depressv Medicine - LUZ Berrios disorder, [address] recurrent, severe w psych symptoms R45.851 Suicidal ideations Office Visit 08/11/2017 1:20p [facility] [address] Internal [place] Ayla, F31.31 Bipolar Medicine - Adelina disorder, [address] current episode depressed, mild M51.16 Intervertebral disc disorders w radiculopathy, lumbar region K63.5 Polyp of colon K21.9 Gastro-esophageal reflux disease without esophagitis Office Visit 07/15/2017 11:00a [facility] [address] Internal [place] E11.9 Type 2 diabetes Jaylene Aguila M.D. mellitus without [address] complications M51.16 Intervertebral disc disorders w radiculopathy, lumbar region F31.31 Bipolar disorder, current episode depressed, mild E66.01 Morbid (severe) obesity due to excess calories Z68.41 Body mass index (BMI) 40.0-44.9, adult Office Visit 06/13/2017 3:20p [facility] [address] Internal [place] E11.9 Type 2 diabetes Jaylene Aguila M.D. 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 syndrome, left upper limb Office Visit 05/11/2017 Surgical Senia Pradhan R10.9 Unspecified 10:45a [facility] MD abdominal pain Office Visit 06/14/2016 [facility] Rosi L02.91 Cutaneous 1:40p Assoc,pc Juanita, PROJECT ADMINISTRATOR abscess, Hospitalists unspecified E11.9 Type 2 diabetes mellitus without complications Z79.4 skilled nursing (current) use of insulin Office Visit 06/13/2016 1:39p [facility] Alexus Elliott, L02.91 Cutaneous Assoc,pc N.P. abscess, Hospitalists unspecified E11.9 Type 2 diabetes mellitus without complications Z79.4 vermin exterminator (current) use of insulin Office Visit 05/21/2016 [facility] T39.1x2A Poisoning by 3:25p Assmatthieu drake M.D. 4-Aminophenol Hospitalists derivatives, self-harm, init E11.9 Type 2 diabetes mellitus without complications F79 Unspecified intellectual disabilities Office Visit 05/20/2016 [facility] T39.1x2A Poisoning by 3:24p Assmatthieu drake M.D. 4-Aminophenol Hospitalists derivatives, self-harm, init E11.9 Type 2 diabetes mellitus without complications F79 Unspecified intellectual disabilities Office Visit 05/19/2016 [facility] T39.1x2A Poisoning by 3:24p Assocmatthieu M.D. 4-Aminophenol Hospitalists derivatives, self-harm, init E11.9 Type 2 diabetes mellitus without complications F79 Unspecified intellectual disabilities Office Visit 05/18/2016 [facility] T39.1x2A Poisoning by 3:23p Assocmatthieu M.D. 4-Aminophenol Hospitalists derivatives, self-harm, init E11.9 Type 2 diabetes mellitus without complications F79 Unspecified intellectual disabilities Office Visit 05/17/2016 [facility] T39.1x2A Poisoning by 3:23p Assocmatthieu M.D. 4-Aminophenol Hospitalists derivatives, self-harm, init E11.9 Type 2 diabetes mellitus without complications F79 Unspecified intellectual disabilities Office Visit 05/16/2016 [facility] T39.1x2A Poisoning by 3:22p Assmatthieu drake M.D. 4-Aminophenol Hospitalists derivatives, self-harm, init E11.9 Type 2 diabetes mellitus without complications F79 Unspecified intellectual disabilities Office Visit 05/15/2016 [facility] Ml T39.1x2A Poisoning by 3:22p Assocmatthieu M.D. 4-Aminophenol Hospitalists derivatives, self-harm, init E11.9 Type 2 diabetes mellitus without complications F79 Unspecified intellectual disabilities [facility] Poisoning by 3:22p Assoc,matthieu Daly D.O. 4-Aminophenol Hospitalists derivatives, self-harm, init E11.9 Type 2 diabetes mellitus without complications F79 Unspecified intellectual disabilities Office Visit 05/13/2016 [facility] Yara T39.1x2A Poisoning by 3:21p Assoc,matthieu Daly D.O. 4-Aminophenol Hospitalists derivatives, self-harm, init E11.9 Type 2 diabetes mellitus without complications F79 Unspecified intellectual disabilities [facility] Poisoning by 3:21p Assoc,matthieu Daly D.O. 4-Aminophenol Hospitalists derivatives, self-harm, init E11.9 Type 2 diabetes mellitus without complications F79 Unspecified intellectual disabilities Office 05/11/2016 [facility] Benjamin T39.1x2A Poisoning by Visit 3:20p Assoc,RAÚL Brewer 4-Aminophenol Hospitalists derivatives, self-harm, init E11.9 Type 2 diabetes mellitus without complications F79 Unspecified intellectual disabilities Office Visit 05/03/2016 [facility] Anu R73.9 Hyperglycemia, 11:09a Assoc,matthieu Diaz, DO unspecified Hospitalists J40 Bronchitis, not specified as acute or chronic G89.4 Chronic pain syndrome Office Visit 04/07/2016 3:52p [facility] Ml R40.4 Transient Assocmatthieu M.D. alteration of Hospitalists awareness E13.9 Other specified diabetes mellitus without complications F79 Unspecified intellectual disabilities Z91.19 Patient's noncompliance w oth medical treatment and regimen Office Visit 04/06/2016 3:52p [facility] Ml R40.4 Transient Assocmatthieu M.D. alteration of Hospitalists awareness E13.9 Other specified diabetes mellitus without complications F79 Unspecified intellectual disabilities Z91.19 Patient's noncompliance w oth medical treatment and regimen Office Visit 04/05/2016 3:51p [facility] Yara R40.4 Transient Assoc,pc Addy D.Jolene. alteration of Hospitalists awareness E13.9 Other specified diabetes mellitus without complications F79 Unspecified intellectual disabilities Z91.19 Patient's noncompliance w oth medical treatment and regimen Office Visit 04/04/2016 3:51p [facility] Yara R40.4 Transient Assoc,pc Addy D.O. alteration of Hospitalists awareness E13.9 Other specified diabetes mellitus without complications F79 Unspecified intellectual disabilities Z91.19 Patient's noncompliance w oth medical treatment and regimen Office Visit 04/03/2016 3:50p [facility] Rosi R40.4 Transient Assoc,pc Juanita, PROJECT ADMINISTRATOR alteration of Hospitalists awareness E13.9 Other specified diabetes mellitus without complications F79 Unspecified intellectual disabilities Z91.19 Patient's noncompliance w oth medical treatment and regimen Office Visit 10/01/2015 10:08a [facility] Gray M54.31 Sciatica, right Assoc,matthieu Conn N.PJarred side Hospitalists E11.9 Type 2 diabetes mellitus without complications F60.3 Borderline personality disorder Office Visit 09/28/2015 10:06a [facility] Ml M54.31 Sciatica, right Assoc,matthieu Mosquera M.D. side Hospitalists E11.9 Type 2 diabetes mellitus without complications Office Visit 04/24/2015 [facility] Conner 276.1 Hyposmolality & Or 1:31p Assoc,matthieu Powers M.D. Hyponatremia Hospitalists 296.7 Bipolar I Disorder Current NOS 301.83 Borderline Personality Disorder Office Visit 04/23/2015 [facility] Conner 276.1 Hyposmolality & Or 1:30p Assocmatthieu M.D. Hyponatremia Hospitalists 250.00 Diabetes Mellitus W/O Compl Type II Or Unspec Controlled 296.7 Bipolar I Disorder Current NOS 301.83 Borderline Personality Disorder Office Visit 04/22/2015 [facility] Quique 276.1 Hyposmolality & Or 1:29p Assoc,matthieu Aden M.D. Hyponatremia Hospitalists 250.00 Diabetes Mellitus W/O Compl Type II Or Unspec Controlled 301.83 Borderline Personality Disorder Office Visit 04/21/2015 [facility] Gray 276.1 Hyposmolality & Or 1:28p Assoc,pc Fabien, N.PJarred Hyponatremia Hospitalists 296.7 Bipolar I Disorder Current NOS 301.83 Borderline Personality Disorder 250.00 Diabetes Mellitus W/O Compl Type II Or Unspec Controlled Office Visit 11/27/2014 [facility] Sherita 244.9 Hypothyroidism 8:42a Assoc,matthieu Lui M.D. Other Unspec Hospitalists 250.02 Diabetes Mellitus W/O Compl Type II Or Unspec Type Uncontrol 301.83 Borderline Personality Disorder Office Visit 04/17/2012 [facility] 969.09 Poisoning By Other 4:07p Assoc,matthieu Daly D.O. Antidepressants Hospitalists 300.9 Nonpsychotic Disorders NOS 311 Depressive Disorder Not Elsewhere Spec Office 04/16/2012 [facility] 969.09 Poisoning By Other Visit 4:35p Assoc,matthieu Grajeda M.D. Antidepressants Hospitalists 300.9 Nonpsychotic Disorders NOS 311 Depressive Disorder Not Elsewhere Spec V11.1 History Personal Affective Disorder Office Visit 10/18/2009 1:00a [facility] Jase Edin, 789.00 Pain Abdominal Assoc,matthieu Sahu Unspec Site Hospitalists 787.03 Vomiting Alone 790.29 Other Abnormal Glucose 250.02 Diabetes Mellitus W/O Compl Type II Or Unspec Type Uncontrol Office Visit 10/17/2009 3:00a [facility] Jase Edin, 790.29 Other Abnormal Assoc,matthieu Sahu Glucose Hospitalists 789.00 Pain Abdominal Unspec Site 295.70 Schizoaffective Disorder NOS 401.9 Hypertension Unspec Office Visit 10/16/2009 12:15a [facility] Sherita 790.29 Other Abnormal Assoc,matthieu Marshall M.D. Glucose Hospitalists 296.80 Bipolar Disorder NOS Plan of Treatment Future Appointment(s):10/02/2018 3:00 pm - Rosa Schroeder MD at [facility] [address] [facility] - [address]07/04/2018 - Moreno Sandoval MDE11.65 Type 2 diabetes mellitus with fxdozqifjvesnC05.7 Diarrhea, unspecifiedNew Labs:Trypsinogen, Ordered: 11/16T50.902D Poisoning by unspecified drugs, medicaments and biological s
--- OUTSIDE RECORDS SUMMARY | 2018-07-10 19:09 | XMS REPORT | Continuity of Care Document ---
:1965 External Reference #:[id number] Author Name Coco Christensen Care Team Providers Name Role Phone Rosa Schroeder M.D. Primary Care Physician Unavailable Payers Type Date Identification Numbers Payment Provider Subscriber Effective: 1991 Policy Number: [id number] Medicare Cecilio Alafro PayID: [id number] [address] [place] [address] Policy Number: [id number] Medicaid Cecilio Alfaro Group Name: 1 1 [address] PayID: [id number] [place] [address] Advance Directives Description No Information Available Problems [...] History Type Date Description Comments Sex Unknown Lives With Assisted living Occupation Unemployed Tobacco Use Start: Unknown Light tobacco smoker (10 or fewer cigarettes/day) Smoking Status Reviewed: 06/28/18 Light tobacco smoker (10 or fewer cigarettes/day) Tobacco Use Start: Unknown Patient is a current smoker, 1/2 pack per day smokes every day Allergies, Adverse Reactions, Alerts Date Description Reaction Status Severity Comments 05/10/2017 Latex Urticaria Active 05/10/2017 Sulfa Antibiotics hives Active 05/10/2017 Penicillins Urticaria Active 05/10/2017 Nalbuphine Active 05/10/2017 Perphenazine Active 05/10/2017 Ciprofloxacin dizziness Active 05/10/2017 Tramadol altered mental status Active 05/10/2017 [place] Active 05/08/2018 Lurasidone Active Moderate 05/22/2018 Metformin Diarrhea Active Medications Medication Date Status Form Strength Qnty SIG Indications Ordering Provider Flonase Allergy 06/23 Active Suspension 50mcg/Act 9.900 2 sprays in ml each Schroeder, nostril twice a day Mucinex DM 06/23 Active Tablets ER 30-600mg 14tab one po bid 12HR s MD Alexandre Ibuprofen 05/29 Active Tablets 600mg 30tab 1 po three s times a day Schroeder, as needed MD for pain, take with food Clindamycin 05/22 Active Gel 1% 60gm apply to R15.1 affected Schroeder, area twice MD a day for 14 days Fiasp Flextouch 05/19 Active Solution 100Unit/M 30ml 2-10 u SQ, E11.65 Pen-Inject L as Schroeder, indicated MD by sliding scale Basaglar Kwikpen 05/19 Active Solution 100Unit/M 6ml 40 U bid Pen-Inject L MD Alexandre Nicotrol 05/18 Active Inhaler 10mg 168un 1 its cartridges Kamille Denson, every 2 M.D.,FACP hours as needed Nystatin 05/15 Active Powder 530853Eaj 90gm apply twice t/GM daily until Schroeder, rash clears MD Elmore Auto 05/15 Active Misc 1-08/08" 1unit use this to s ambulate Schroeder, Adjustment daily for Holes/-08/08" unsteady gait Shower Chair 05/15 Active 1unit use when s taking a Schroeder, shower for unsteastacey gait Ventolin HFA 05/15 Active Aerosol 108(90Bas 8gm 2 by mouth J45.909 e) every 4 Schroeder, mcg/Act hours as MD needed Januvia 05/08 Active Tablets 50mg 90tab one by E11.65 s mouth daily MD Alexandre Depend 05/08 Active Misc 120un use four R15.1 its times a day Alexandre, Underwear L/XL Exercise 05/08 Active Pt allowed E11.65 to engage Alexandre in exercise MD at facilities under direct supervision of staff Onetouch Ultra 09/09 Active Strips 100un test up to E11.9 [place] Blue its three times Kamille Denson, daily last M.D.,FACP visit:05/08 Onetouch 08/31 Active Misc 100un test blood E11.9 [place] Ultrasoft its 2-3 a day Kamille Denson Lancets or as M.D.,FACP needed BD Pen 08/24 Active Misc 32G X 4 120un use three E11.9 Needle/Suzanna/Ultr mm its times a day devin Schroeder Fine/32G X 4mm daily. last MD visit 05/22/18 Depend Pant 06/14 Active Misc 120un use 4 x a Extra Large its day or as Schroeder, needed Olanzapine Active Tablets 5mg 90tab one tab 0000 s daily daily MD Alexandre Trazodone HCL Active Tablets 100mg 90tab 1 tab at 0000 s bedtime MD Ana Schroedertouch Ultra Active Kit w/Device 1unit check bs up E11.65 Alyson Mendez Mini / s to three Kamille Denson, times daily M.D.,FACP Atorvastatin 00 Active Tablets 20mg 90tab take 1 Calcium s tablet at Schroeder, bedtime Lamotrigine Active Tablets 100mg 180ta 1 by mouth bs twice a day MD Alexandre Levothyroxine Active Tablets 150mcg 90tab 1 by mouth Rosa Sodium s every day MD Alexandre Losartan Active Tablets 50mg 90tab 1 by mouth E11.65 Rosa Potassium s every day MD Alexandre Loratadine Active Capsules 10mg 90cap once a day s for mary Schroeder MD as needed Duloxetine HCL Active Caps DR 20mg 90cap 1 by mouth Part s every day Alexandre, with 60mg MD tab Duloxetine HCL Active Caps DR 60mg 90cap 1 by mouth Part s every day Alexandre, with 20mg MD tab Naproxen Active Tablets 375mg 180ta twice a day bs with food MD Alexandre Vitamin D3 Active Capsules 1000Unit 180ca 1 by mouth ps twice daily MD Alexandre Gabapentin Active Capsules 400mg 270ca take one ps capsule by Alexandre, mouth 3 MD times a day Metformin HCL ER 05/12 Hx Tablets ER 500mg 90tab take 1 24HR s tablet by Alexandre, - mouth once 05/22 a day dinner Tresiba 10/13 Hx Solution 100Unit/M 15ml 100 units E11.65 [facility] at bed[facility] Ayla Gallagher M.D. 05/08 Losartan 10/13 Hx Tablets 25mg 30tab 1 by mouth E11.65 [place] Potassium s once a day Ayla Gallagher M.D. 05/08 Hydrocodone-Acet 10/10 Hx Tablets 5-325mg 20tab 1 tab every [place] aminophen s 12h as Pachika - Adelina coleman 05/08 Tresiba 09/19 Hx Solution 100Unit/M 15ml 60 [facility] Ayla Gallagher M.D. 10/13 Onetouch Ultra 08/31 Hx Lancets 100un check bs [facility] its twice daily Pachikara - M.DJarred 05/08 Onetouch Ultra 08/31 Hx Strips 100un test up to E11.9 [facility] its three times Kamille Denson, - daily last M.D.,[facility] 09/09 visit: 18 Mucinex 08/28 Hx Tablets ER 600mg 20tab 1 po bid Lawrence 12HR s prn Kamille Denson, - M.D.,[facility] 05/08 Doxycycline 08/28 Hx Capsules 100mg 13cap 1 by mouth Unknown Monohydrate s twice a day - x 7 days 09/04 Tresiba 08/26 Hx Solution 200Unit/M 18ml 30u SC in [facility] Pen-Inject L Am and 70u Kamille Denson, - SC in PM M.D.,[facility] 09/19 Azithromycin 08/26 Hx Tablets 250mg 2 tabs by [facility] mouth on - day 1; 1 08/31 tab by mouth every day on days 2-5 Tramadol HCL 08/26 Hx Tablets 50mg 30tab 1 tab by Lawrence s mouth three DJarred Denson, - times a day M.D.,[facility] 09/28 Fluconazole 08/22 Hx Tablets 150mg 2tabs one by [facility] mouth may Kamille Denson, - repeat in 3 M.D.,[facility] 05/08 days needed Lancets 28G 08/08 Hx Misc 28G 100un use with [place] its one touch Pachikara - meter, , M.D. 08/31 check daily Onetouch 08/08 Hx Strips 100un test twice its daily and Pachikara - as needed , M.D. 08/31 Janumet 07/15 Hx Tablets 50-500mg 60tab 1 by mouth E11.9 s twice a day Pachika - M.D. 05/08 Glucocom Blood 07/03 Hx Kit W/Device 1unit one touch Erik Glucose s glucometer Kavita, Monitoring - to measure M.D. System 08/31 blood sugar daily Nicotrol 06/13 Hx Inhaler 10mg 168un use 4-5 F17.210 its times daily Ayla Gallagher M.D. 05/08 Clotrimazole 06/13 Hx Cream 1% 90gm apply twice B37.9 daily Ayla Gallagher M.D. 05/08 Acetaminophen-Co 05/26 Hx Tablets 300-30mg 20tab 1 tab by Chapo lizama #3 s mouth every Pachikara - 4-6 hours , M.DJarred 05/08 as needed for pain Ibuprofen Hx Tablets 600mg as needed Home /0000 Paty, - [employer] 05/08 Ondansetron Hx Tablets 8mg every 6-8 Home /0000 Dispers hours as Paty, - needed [employer]ACH[employer] 05/[address] 40mg 30tab take 1 [place] Sodium /0000 s tablet by Gerryikara - mouth once , M.DJarred 05/08 Lamotrigine Hx Tablets 150mg take 1 Unknown /0000 tablet by - mouth twice 05/08 Sertraline HCL Hx Tablets 100mg Take [...] daily [place] Sodium /0000 s in the Pachikara - empty , M.D. 05/08 Levothyroxine Hx Tablets 200mcg 90tab 1 tab daily [place] Sodium /0000 s am in the Pachikara - empty , M.D. 05/08 Naproxen Hx Tablets 500mg 60tab twice daily [place] /0000 s Ayla Gallagher M.D. 07/15 Lantus Solostar Hx Solution 100Unit/M 15ml 30 units SC Lawrence /0000 Pen-Inject L in Am, and Kamille Denson, - 70 units SC MMarkel,FACP 08/26 a Atorvastatin Hx Tablets 40mg 90tab take one Chapo Calcium /0000 s tablet by Pachikara - mouth every , M.D. Pictonix 00 Hx 40 mg daily Unknown /0000 Novalog 00 Hx 10 units Unknown /0000 before - meals 05/08 Humalog Kwikpen Hx Solution 100Unit/M 9ml 4-10 Units E11.65 Rosa Pen-Inject L SQ three Schroeder, - soco beltran MD , mealtime, per sliding scale instruction s Metformin HCL Hx Tablets 500mg 1 by mouth Unknown / twice a day - 05/08 Lantus Solostar Hx Solution 100Unit/M 45ml 40 units Pen-Inject L twice daily Elliott Schroeder MD 05/22 Medications Administered in Office Medication Date Status Form Strength Qnty SIG Indications Ordering Provider Depomedrol Administered Injection Naveed F 40MG 018 MD Venecia Immunizations CPT Code Status Date Vaccine Lot # [id number] Given 05/01/2018 Influenza Virus Vaccine, Quadrivalent, Split, Preservative Free Vital Signs Date Vital Result Comment 06/28/2018 12:56pm Height 67 inches 5'7" Heart [...] Test Result H/L Range Note Laboratory test [facility] Point of Care 143 mg/dL High 70-100 1 finding [address] [place] [address] [phone] Laboratory test [facility] Point of Care 72 mg/dL N 70-100 2 finding [address] [place] [address] [phone] Urine Drug SCR [facility] Amphetamine Ur None None ED & Pain [address] [place] [address] [phone] Barbiturates Urine Screen None Detected None Detect Benzodiazepine Urine Screen None Detected None Detect Urine Cannabinoids Screen None Detected None Detect Urine Cocaine Screen None Detected None Detect Urine Opiates Screen None Detected None Detect Urine Phencyclidine Screen None Detected None Detect 3 CBC Auto 06/26/2018 [facility] White Blood 10.9 10^3/uL High 3.5-10.[address] [place], [place] [id number] [phone] Red Blood Count 4.42 10^6/uL N 4.00-5.40 [...] Cells % 0 Comp Metabolic Panel 06/26/2018 [facility] Sodium 137 mmol/L N 135-145 [address] [place] [address] [phone] Potassium 4.3 mmol/L N 3.5-5.0 Chloride 105 [...] Egfr 95.6 >60 4 Laboratory test 06/26/2018 [facility] Acetaminophen < 15 g/mL 5 finding [address] [place] [address] [phone] Alcohol < 10 mg/dL N <10 Salicylate < 2.50 mg/dL <30 Lactic Acid 0.9 mmol/L N 0.5-2.0 6 Urinalysis Profile 06/26/2018 [facility] Urine Color Straw [address] [place] [address] [phone] Urine Appearance Clear Urine Specific [place] 1.005 Low 1.010-1.030 Urine pH 6.0 N 5-9 Urine Urobilinogen Negative Negative Urine Ketones Negative Negative Urine Protein Negative Negative Urine Leukocytes Negative Negative Urine Blood Negative Negative Urine Nitrite Negative Negative Urine Bilirubin Negative Negative Urine Glucose Negative Negative Laboratory test 06/26/2018 [facility] Point of Care 98 mg/dL N 70-100 [address] [place] [address] [phone] CBC Auto Diff 05/18/2018 [facility] White Blood 10.8 N 3.5- 10.[address] Count 10^3/[place] [address] [phone] Red Blood Count 4.33 10^6/uL N 4.00-5.40 [...] Cells % 0.1 Comp Metabolic Panel 05/18/2018 [facility] Sodium 139 mmol/L N 135-[address] [place] [address] [phone] Potassium 4.5 mmol/L N 3.5-5.0 Chloride 107 [...] Egfr 98.6 >60 8 Laboratory test 05/18/2018 [facility] Lipase < 10 U/L Low 11.0 -82.[address] [place], [place] [address] [phone] Lactic Acid 1.1 mmol/L N 0.5-2.0 9 Laboratory test 05/15/2018 [facility] C Difficile PCR SEE RESULT [address] BEL[address] [place], [place] [address] [phone] Laboratory test 05/11/2018 [facility] Glucose 342 mg/dL High 70-[address] Confirmatory 00 [place] [address] [phone] Laboratory test 05/11/2018 [facility] Point of Care 402 mg/dL High 70-1 [address] Glucose 00 [place] [address] [phone] Laboratory test 05/11/2018 [facility] Point of Care 426 mg/dL High 70-1 [address] Glucose 00 [place] [address] [phone] Laboratory test 05/10/2018 [facility] Lipase < 10 U/L Low 11.[address]. [place] [address] 0 [phone] C Reactive Protein 6.43 mg/L N <8.01 Lactic Acid 1.2 mmol/L N 0.5-2.0 13 Comp Metabolic Panel 05/10/2018 [facility] Sodium 141 mmol/L N 135-[address] [place] [address] [phone] Potassium 4.9 mmol/L N 3.5-5.0 Chloride 107 [...] Egfr 90.2 >60 14 CBC Auto 05/10/2018 [facility] White Blood 12.0 10^3/uL High 3.5-10.[address] [place] [address] [phone] Red Blood Count 4.39 10^6/uL N 4.00-5.40 [...] Blood Cells % 0.1 Urine Microalbumin 05/08/2018 [facility] Ur Microalbumin < 15.0 Random (mg/L) [place] [address] [phone] Urine Creatinine 224.47 mg/dL Urine Microalbumin/Creatinine TNP <31 15 Laboratory test 05/08/2018 [facility] Hemoglobin A1c 9.7 High 5-7 finding Urinalysis Profile 11/02/2017 [facility] Urine Color Yellow [address] [place] [address] [phone] Urine Appearance Clear Urine Specific [place] 1.018 N 1.010-1.030 Urine pH 5.0 N 5-9 Urine Urobilinogen Negative Negative Urine Ketones Negative Negative Urine Protein Negative Negative Urine Leukocytes Negative Negative Urine Blood Negative Negative Urine Nitrite Negative Negative Urine Bilirubin Negative Negative Urine Glucose 1+(50 mg/dL) Abnormal Negative Urine Drug 11/02/2017 [facility] Amphetamine Ur None Detected None Detect SCR ED & [address] [place] [address] [phone] Barbiturates Urine Screen None Detected None Detect Benzodiazepine Urine Screen None Detected None Detect Urine Cannabinoids Screen None Detected None Detect Urine Cocaine Screen None Detected None Detect Urine Opiates Screen Presumptive Posi <SEE NOTE> Abnormal None Detect 16 Urine Phencyclidine Screen None Detected None Detect 17 Arterial Blood Gas 11/02/2017 [facility] PH Arterial 7.36 N 7.35-7.[address] [place] [address] [phone] Pco2 Arterial 50 mmHg High 35-45 Po2 Arterial 65 mmHg Low 80-100 O2 Saturation Arterial 91.1 % Low 95-98 Base Excess Arterial 2.1 High -2.0-2.0 18 Hco3 Arterial 26.4 mmol/L N 19-31 Laboratory test finding 11/02/2017 [facility] Ammonia 37 ?mol/L N 16-[address] [place] [address] [phone] Lactic Acid 1.0 mmol/L N 0.5-2.0 19 CBC Auto Diff 11/02/2017 [facility] White Blood 8.5 10^3/uL N 3.5-10.[address] [place] [address] [phone] Red Blood Count 4.40 10^6/uL N 4.0-5.4 [...] Blood Cells % 0 Comp Metabolic 11/02/2017 [facility] Potassium 4.4 mmol/L N 3.5-5.[address] [place] [address] [phone] Chloride 107 mmol/L N 101-111 Co2 Carbon [...] 5 mmol/L N 2-11 Laboratory test 11/02/2017 [facility] Magnesium 1.9 mg/dL N 1.9-2.[address] [place] [address] [phone] Creatine Kinase(CK) 72 U/L N 10-223 Troponin-I (TnI) 0.03 ng/mL <0.04 Acetaminophen < 15 g/mL 21 Alcohol < 10 mg/dL N <10 Salicylate < 2.50 mg/dL <30 TSH (Thyroid Stim Horm) 1.79 mcIU/mL N 0.34-5.60 CBC Auto Diff 10/02/2017 [facility] White Blood 10.3 10^3/uL N 3.5-10.[address] [place] [address] [phone] Red Blood Count 4.29 10^6/uL N 4.0-5.4 [...] Cells % 0 Comp Metabolic Panel 10/02/2017 [facility] Sodium 136 mmol/L N 133-[address] [place] [address] [phone] Potassium 4.5 mmol/L N 3.5-5.0 Chloride 103 [...] Egfr 90.7 >60 22 Laboratory test 10/02/2017 [facility] CRP High 3.53 mg/L [address] [place] [address] [phone] Laboratory test 09/28/2017 [facility] Hemoglobin A1c 9.1 High 5-7 finding Laboratory test 09/13/2017 [facility] Point of Care 179 mg/dL High 70-10 [address] Glucose 0 [place] [address] [phone] Laboratory test 09/13/2017 [facility] Point of Care 260 mg/dL High 70-10 [address] Glucose 0 [place] [address] [phone] Comp Metabolic 08/29/2017 [facility] Sodium 136 N 133-[address] mmol/L 45 [place] [address] [phone] Potassium 4.9 mmol/L N 3.5-5.0 Chloride 104 [...] Egfr 60.9 >60 26 Laboratory test 08/29/2017 [facility] Lipase < 10 U/L Low 11.0 -82.[address] [place] [address] [phone] CRP High Sensitivity 1.79 mg/L 27 Troponin-I (TnI) 0.00 ng/mL <0.04 CBC Auto Diff 08/29/2017 [facility] White Blood 9.1 10^3/uL N 3.5-10.[address] [place] [address] [phone] Red Blood Count 4.06 10^6/uL N 4.0-5.4 [...] Blood Cells % 0 Laboratory test 08/29/2017 [facility] B-Type 21 pg/mL [address] [place] [address] Peptide BNP [phone] CBC Auto Diff 08/26/2017 [facility] White Blood Count 9.0 10^3/ uL N 3.5-[address] 0.8 [place] [address] [phone] Red Blood Count 4.42 10^6/uL N 4.0-5.4 [...] Blood Cells % 0 Laboratory test 08/26/2017 [facility] Troponin-I (TnI) 0.01 ng/ mL <0.[address] [place] [address] [phone] Comp Metabolic 08/26/2017 [facility] Sodium 139 mmol/L N 133- 145 Panel [address] [place] [address] [phone] Potassium 5.0 mmol/L N 3.5-5.0 Chloride 105 [...] >60 Egfr 80.7 >60 29 Inr/Protime 08/26/2017 [facility] Inr 0.82 N 0.77-1.02 [address] [place] [address] [phone] Laboratory test 08/26/2017 [facility] Partial 27.7 N 26.0- 36.3 finding [facility] [place] [address] Time PTT [phone] Laboratory test 08/25/2017 [facility] Point of 157 mg/dL High 70-100 30 finding [address] [place] [address] Glucose [phone] Urinalysis 08/25/2017 [facility] Urine Color Yellow Profile [address] [place] [address] [phone] Urine Appearance Clear Urine Specific [place] 1.010 N 1.010-1.030 Urine pH 5.0 N 5-9 Urine Urobilinogen Negative Negative Urine Ketones Negative Negative Urine Protein Negative Negative Urine Leukocytes Negative Negative Urine Blood Negative Negative Urine Nitrite Negative Negative Urine Bilirubin Negative Negative Urine Glucose 3+(>=500 mg/dL) Abnormal Negative Laboratory test 08/25/2017 [facility] Point of 289 mg/dL High 70-100 [address] [place] [address] [phone] Venous Blood 08/25/2017 [facility] Venous Blood 7.48 High 7.33 -7.[address] [place] [address] [phone] Venous Pco2 31 mmHg Low 41-51 Venous Po2 98 mmHg High 35-45 Venous O2 Saturation 95.3 % High 70-80 Venous Blood Base Excess 0.1 N 0-4 32 Venous Bicarbonate Hco3 25.0 mmol/L N 24-28 CBC Auto Diff 08/25/2017 [facility] White Blood 8.9 10^3/uL N 3.5-10.[address] [place] [address] [phone] Red Blood Count 4.33 10^6/uL N 4.0-5.4 [...] Cells % 0 Comp Metabolic Panel 08/25/2017 [facility] Sodium 134 mmol/L N 133-[address] [place] [address] [phone] Potassium 4.8 mmol/L N 3.5-5.0 Chloride 101 [...] Egfr 88.3 >60 33 Laboratory test 08/25/2017 [facility] C Reactive 3.27 mg/L N < 5.00 34 finding [address] [facility] [place] [address] [phone] Laboratory test 08/23/2017 [facility] Point of Care 224 mg/dL High 70-100 [address] [place] [address] [phone] Laboratory test 08/22/2017 [facility] Glucose 417 mg/dL High 70-100 finding [address] [place] [address] [phone] Laboratory test 08/22/2017 [facility] Point of Care > 444 mg/dL High 70-100 [address] Gl[place], [place] [address] [phone] Urinalysis 08/22/2017 [facility] Urine Color Yellow Profile [address] [place] [address] [phone] Urine Appearance Cloudy Urine Specific [place] 1.023 N 1.010-1.030 Urine pH 6.0 N [...] Present Abnormal Absent Urine Culture And 08/22/2017 [facility] Urine Culture SEE RESULT [address] [place] [address] [phone] CBC Auto Diff 08/22/2017 [facility] White Blood 8.9 10^3/uL N 3.5-[address] Count 0.8 [place] [address] [phone] Red Blood Count 4.19 10^6/uL N 4.0-5.4 [...] Cells % 0.1 Venous Blood Gas 08/22/2017 [facility] Venous Blood pH 7.42 N 7.33-7.[address] [place] [address] [phone] Venous Pco2 49 mmHg N 41-51 Venous Po2 36 mmHg N 35-45 Venous O2 Saturation 78.1 % N 70-80 Venous Blood Base Excess 6.3 High 0-4 38 Venous Bicarbonate Hco3 29.4 mmol/L High 24-28 Inr/Protime 08/22/2017 [facility] Inr 0.91 N 0.77-1.[address] [place] [address] [phone] Laboratory test 08/22/2017 [facility] Lactic Acid 1.3 N 0.5- 2.0 [address] mmol/[place] [address] [phone] Comp Metabolic 08/22/2017 [facility] Sodium 131 Low 133-[address] mmol/[place] [address] [phone] Potassium 4.6 mmol/L N 3.5-5.0 Chloride 98 [...] mg/dL High 70-100 41 Laboratory test 08/22/2017 [facility] Magnesium 2.0 mg/dL N 1.9-2.[address] [place] [address] [phone] Creatine Kinase(CK) 121 U/L N 10-223 C Reactive Protein 4.62 mg/L N < 5.00 42 Troponin-I (TnI) 0.01 ng/mL <0.04 Laboratory test 08/18/2017 [facility] Point of Care 180 mg/dL High 70-100 [address] [place] [address] [phone] Urinalysis 08/17/2017 [facility] Urine Color Yellow Profile [address] [place] [address] [phone] Urine Appearance Cloudy Urine Specific [place] 1.016 N 1.010-1.030 Urine pH 5.0 N 5-9 Urine Urobilinogen Negative Negative Urine Ketones Negative Negative Urine Protein Negative Negative Urine Leukocytes Negative Negative Urine Blood Negative Negative Urine Nitrite Negative Negative Urine Bilirubin Negative Negative Urine Glucose 3+(>=500 mg/dL) Abnormal Negative Urine Drug 08/17/2017 [facility] Amphetamine Ur None Detected None Detect SCR ED & [address] [place] [address] [phone] Barbiturates Urine Screen None Detected None Detect Benzodiazepine Urine Screen None Detected None Detect Urine Cannabinoids Screen None Detected None Detect Urine Cocaine Screen None Detected None Detect Urine Opiates Screen None Detected None Detect Urine Phencyclidine Screen None Detected None Detect 44 Laboratory test 08/17/2017 [facility] Point of 276 mg/dL High 70-100 [address] [place] [address] [phone] Laboratory test 08/17/2017 [facility] Point of > 444 High 70- 100 [address] Care Glucose mg/[place] [address] [phone] Venous Blood 08/17/2017 [facility] Venous Blood 7.36 N 7.33- 7.[address] [place] [address] [phone] Venous Pco2 48 mmHg N 41-51 Venous Po2 29 mmHg Low 35-45 Venous O2 Saturation 59.9 % Low 70-80 Venous Blood Base Excess 1.1 N 0-4 47 Venous Bicarbonate Hco3 24.9 mmol/L N 24-28 CBC Auto Diff 08/17/2017 [facility] White Blood 10.8 10^3/uL N 3.5-10.[address] [place] [address] [phone] Red Blood Count 4.74 10^6/uL N 4.0-5.4 [...] Cells % 0 Comp Metabolic Panel 08/17/2017 [facility] Sodium 133 mmol/L N 133-[address] [place] [address] [phone] Potassium 4.9 mmol/L N 3.5-5.0 Chloride 101 [...] mg/dL High 70-100 49 Laboratory test 08/17/2017 [facility] Acetaminophen < 15 g/mL [address] [place] [address] [phone] Alcohol < 10 mg/dL N <10 Salicylate < 2.50 mg/dL <30 TSH (Thyroid Stim Horm) 2.76 mcIU/mL N 0.34-5.60 Lamotrigine (Lamictal) 4.2 g/mL 2.5 - 15.0 51 Laboratory test 08/17/2017 [facility] Point of > 444 mg/dL High 70-100 [address] [place] [address] [phone] Laboratory test 08/09/2017 [facility] Point of 266 mg/dL High 70-100 [address] [place] [address] [phone] Urinalysis 08/08/2017 [facility] Urine Color Yellow Profile [address] [place] [address] [phone] Urine Appearance Cloudy Urine Specific [place] 1.022 N 1.010-1.030 Urine pH 6.0 N 5-9 Urine Urobilinogen Negative Negative Urine Ketones Negative Negative Urine Protein Negative Negative Urine Leukocytes Negative Negative Urine Blood Negative Negative Urine Nitrite Negative Negative Urine Bilirubin Negative Negative Urine Glucose 3+(>=500 mg/dL) Abnormal Negative Urine Drug 08/08/2017 [facility] Amphetamine Ur None Detected None Detect SCR ED & [address] [place] [place] [address] [phone] Barbiturates Urine Screen None Detected None Detect Benzodiazepine Urine Screen None Detected None Detect Urine Cannabinoids Screen None Detected None Detect Urine Cocaine Screen None Detected None Detect Urine Opiates Screen None Detected None Detect Urine Phencyclidine Screen None Detected None Detect 54 CBC Auto 08/08/2017 [facility] White Blood 11.9 10^3/uL High 3.5-10.[address] [place] [address] [phone] Red Blood Count 4.78 10^6/uL N 4.0-5.4 [...] Cells % 0 Comp Metabolic Panel 08/08/2017 [facility] Sodium 136 mmol/L N 133-[address] [place] [address] [phone] Potassium 4.3 mmol/L N 3.5-5.0 Chloride 100 [...] Egfr 95.9 >60 55 Laboratory test 08/08/2017 [facility] Acetaminophen < 15 g/mL [address] [place] [address] [phone] Alcohol < 10 mg/dL N <10 Salicylate < 2.50 mg/dL <30 TSH (Thyroid Stim Horm) 2.67 mcIU/mL N 0.34-5.60 Lamotrigine (Lamictal) 2.5 g/mL 2.5 - 15.0 57 Laboratory test 08/04/2017 [facility] Point of Care 258 mg/dL High 70-100 [address] [place] [address] [phone] Laboratory test 08/04/2017 [facility] Point of Care 175 mg/dL High 70-100 [address] [place], [place] [address] [phone] Laboratory test 08/04/2017 [facility] Point of Care 284 mg/dL High 70-100 [address] [place] [address] [phone] Urinalysis 08/03/2017 [facility] Urine Color Yellow Profile [address] [place] [address] [phone] Urine Appearance Cloudy Urine Specific [place] 1.012 N 1.010-1.030 Urine pH 5.0 N [...] Crystals Present Abnormal Absent Urine Drug 08/03/2017 [facility] Amphetamine Ur None Detected None Detect SCR ED & [address] [address] [phone] Barbiturates Urine Screen None Detected None Detect Benzodiazepine Urine Screen None Detected None Detect Urine Cannabinoids Screen None Detected None Detect Urine Cocaine Screen None Detected None Detect Urine Opiates Screen None Detected None Detect Urine Phencyclidine Screen None Detected None Detect 61 Urine Culture And 08/03/2017 [facility] Urine SEE RESULT [address] [place] [address] [phone] CBC Auto Diff 08/03/2017 [facility] White Blood 10.9 High 3.5- [address] Count 10^3/uL 0.8 [place] [address] [phone] Red Blood Count 4.61 10^6/uL N 4.0-5.4 [...] Cells % 0 Comp Metabolic Panel 08/03/2017 [facility] Sodium 132 mmol/L Low 133-[address] [place] [address] [phone] Potassium 4.6 mmol/L N 3.5-5.0 Chloride 98 [...] Egfr 87.1 >60 63 Laboratory test 08/03/2017 [facility] Acetaminophen < 15 g/mL [address] [place] [address] [phone] Alcohol < 10 mg/dL N <10 Salicylate < 2.50 mg/dL <30 TSH (Thyroid Stim Horm) 0.60 mcIU/mL N 0.34-5.60 Laboratory test 08/02/2017 [facility] Troponin-I 0.01 <0.[address] (TnI) ng/[place] [address] [phone] CBC Auto Diff 08/02/2017 [facility] White Blood 13.8 High 3.5- 10.[address] Count 10^3/[place] [address] [phone] Red Blood Count 4.64 10^6/uL N 4.0-5.4 [...] Cells % 0 Comp Metabolic Panel 08/02/2017 [facility] Sodium 133 mmol/L N 133-[address] [place] [address] [phone] Potassium 4.7 mmol/L N 3.5-5.0 Chloride 101 [...] Egfr 98.7 >60 65 Laboratory test 08/02/2017 [facility] Troponin-I 0.03 <0.[address] (TnI) ng/[place] [address] [phone] Urine Culture And 08/01/2017 [facility] Urine Culture SEE 66, Sensitivities [address] RESULT 67 [place] [address] BELOW [phone] Laboratory test 06/13/2017 [facility] Hemoglobin 9.2 High 5-7 finding A1c Laboratory test 06/03/2017 [facility] Point of Care 184 mg/dL High 70-100 [address] [place] [address] [phone] Laboratory test 06/03/2017 [facility] Point of Care 256 mg/dL High 70-100 [address] [place], [place] [address] [phone] Laboratory test 06/03/2017 [facility] Point of Care 329 mg/dL High 70-100 [address] [place] [address] [phone] Laboratory test 06/03/2017 [facility] Point of Care 384 mg/dL High 70-100 [address] [place], [place] [address] [phone] Laboratory test 06/03/2017 [facility] Point of Care > 444 High 70-100 [address] Glucose mg/dL [place], [place] [address] [phone] Laboratory test 06/03/2017 [facility] Point of Care > 444 High 70-100 [address] Glucose mg/[place] [address] [phone] 1 Assistant Director Of Financial Aid: [id number] Assistant Director Of Financial Aid: [id number] 3 The urine specimen was tested at [...] <50 ug/mL Toxic concentration: >120 ug/mL 6 [facility] Severe Sepsis and Septic Shock Management Bundle Measure requires all lactic acids initially measuring >2.0 mmol/L be repeated. 7 Assistant Director Of Financial Aid: [id number] 8 Because ethnic data is not always [...] 5 Kidney failure <15 (or dialysis) 9 [facility] Severe Sepsis and Septic Shock Management Bundle Measure requires all lactic acids initially measuring >2.0 mmol/L be repeated. 10 SEE RESULT BELOW Name: CECILIO ALFARO : [address]: Danya Marquez MD Acct: [id number] Unit: [id number] AGE: 52 Location: [facility] Re05/15/18 SEX: F Status: REG REF SPEC: [id number] ANKUR: 05/15/18-[address] [facility] [address]: Danya Marquez MD REQ: [id number] RECD: 05/15/180 STATUS: COMP _ SOURCE: STOOL SPDESC: ORDERED: Lacey kurtz PCR Procedure Result Reported Site Stool Specimen Description Final 05/15/18- 1306 ML Stool Color [place] Stool Form Semi-formed Stool Consistency Firm C. difficile PCR Final 05/15/18- 1306 ML Test not performed * ML - Main Lab . END OF REPORT DEPARTMENT OF PATHOLOGY, [address] [place] [address] Tay Gamboa M.D. Director [facility] # [id number] 11 Assistant Director Of Financial Aid: [id number] Assistant Director Of Financial Aid: [id number] 13 [facility] Severe Sepsis and Septic Shock Management Bundle [...] Reference ranges based on room air. 19 [facility] Severe Sepsis and Septic Shock Management Bundle [...] Average risk: 1.00-3.00 High risk: >3.00 24 Assistant Director Of Financial Aid: [id number] Assistant Director Of Financial Aid: [id number] 26 Because ethnic data is not always [...] 5 Kidney failure <15 (or dialysis) 30 Assistant Director Of Financial Aid: [id number] 31 Assistant Director Of Financial Aid: [id number] 32 Reference ranges based on room air. [...] (or dialysis) 34 Acute inflammation: >10.00 35 Assistant Director Of Financial Aid: [id number] 36 Assistant Director Of Financial Aid: [id number] 37 SEE RESULT BELOW Name: CECILIO ALFARO Cameron : [address]: Violeta Yusuf MD Acct: [id number] Unit: [id number] AGE: 52 Location: ED Re08/22/17 SEX: F Status: DEP ER SPEC: [id number] ANKUR: 08/22/[address] [facility] [address]: Violeta Yusuf MD REQ: [id number] RECD: 08/22/17 STATUS: COMP [facility] DR: Chapo Pachikara MD _ SOURCE: URINE SPDESC: ORDERED: Urine Culture Procedure Result Reported Site Urine Culture Final 08/23/17- 1607 ML Mixed seema; possible contamination. Suggest resubmission. * ML - MAIN LAB ([facility]) . END OF REPORT * ML=Testing performed at Main Lab DEPARTMENT OF PATHOLOGY, [address] [place] [address] Tay Gamboa M.D. Director [facility] # [id number] 38 Reference ranges based on room air. 39 [facility] Severe Sepsis and Septic Shock Management Bundle [...] dialysis) 41 Critical Result [id number] Called to [id number] at: 21:48:40 by:[id number] Read back by:[id number] 42 Acute inflammation: >10.00 43 Assistant Director Of Financial Aid: [id number] 44 The urine specimen was tested at the listed cutoffs: Drug class test level (ng/mL) Amphetamines 500 Barbiturates 200 Benzodiazepine metabolites 200 Cocaine metabolites 150 Cannabinoids 50 Opiates 300 Pcp 25 Specimen was received without chain of custody. Results should be used for medical purposes only. 45 Assistant Director Of Financial Aid: [id number] 46 Assistant Director Of Financial Aid: [id number] 47 Reference ranges based on room air. [...] dialysis) 49 Critical Result [id number] Called to [id number] at: 18:00:03 by:[id number] Read back by:[id number] 50 Therapeutic concentration: <50 ug/mL Toxic concentration: >120 ug/mL 51 ADDITIONAL INFORMATION This test was developed and its performance characteristics determined by [facility] in a manner consistent with CLIA requirements. This test has not been cleared or approved by the U.S. Food and Drug Administration. Test Performed by: [facility] [place] [address] [place] [address] 52 Assistant Director Of Financial Aid: [id number] 53 Assistant Director Of Financial Aid: [id number] 54 The urine specimen was tested at [...] its performance characteristics determined by [facility] in a manner consistent with CLIA requirements. This test has not been cleared or approved by the U.S. Food and Drug Administration. Test Performed by: [facility] [employer] - [place] [address] [place] [address] 58 Assistant Director Of Financial Aid: [id number] 59 Assistant Director Of Financial Aid: [id number] 60 Assistant Director Of Financial Aid: [id number] 61 The urine specimen was tested at the listed cutoffs: Drug class test level (ng/mL) Amphetamines 500 Barbiturates 200 Benzodiazepine metabolites 200 Cocaine metabolites 150 Cannabinoids 50 Opiates 300 Pcp 25 Specimen was received without chain of custody. Results should be used for medical purposes only. 62 SEE RESULT BELOW Name: CECILIO ALFARO : [address]: Sendy Mcdowell MD Acct: [id number] Unit: [id number] AGE: 52 Location: ED Re08/03/17 SEX: F Status: REG ER SPEC: [id number] ANKUR: 08/03/[address]: Sendy Mcdowell MD REQ: [id number] RECD: 08/03/17 STATUS: TASHA BARFIELD DR: Chapo Aguila MD _ SOURCE: URINE SPDESC: ORDERED: Urine Culture Procedure Result Reported Site Urine Culture Final 08/05/17- 1225 ML No growth of clinically significant organisms * ML - MAIN LAB ([facility]) . END OF REPORT * ML=Testing performed at Main Lab DEPARTMENT OF PATHOLOGY, [address] [place] [address] Tay Gamboa M.D. Director [facility] # [id number] 63 Because ethnic data is not always [...] 5 Kidney failure <15 (or dialysis) 66 [id number] 67 SEE RESULT BELOW Name: CECILIO ALFARO : [address]: Any Ramirez MD Acct: [id number] Unit: [id number] AGE: 52 Location: [facility] Re08/01/17 SEX: F Status: DEP ER SPEC: [id number] ANKUR: 08/01/17-[address] [facility] [address]: Any Ramirez MD REQ: [id number] RECD: 08/02/17-2570 STATUS: TASHA BARFIELD DR: Chapo Aguila MD _ SOURCE: URINE SPDESC: ORDERED: Urine Culture COMMENTS: [id number] Procedure Result Reported Site Urine Culture Final 08/03/17- 1251 ML Mixed seema; possible contamination. Suggest resubmission. * ML - MAIN LAB ([facility]) . END OF REPORT * ML=Testing performed at Main Lab DEPARTMENT OF PATHOLOGY, [address] [place] [address] Tay Gamboa M.D. Director [facility] # [id number] 68 Assistant Director Of Financial Aid: [id number] 69 Assistant Director Of Financial Aid: [id number] 70 Assistant Director Of Financial Aid: [id number] 71 Assistant Director Of Financial Aid: [id number] 72 Assistant Director Of Financial Aid: [id number] 73 Assistant Director Of Financial Aid: [id number] Procedures Date Code Description Status 11/03/2017 88960 EKG, Interpretation Only Completed 10/26/2017 [id number] Diabetic Retinal Eye Exam Completed 10/11/2017 50239 Inject/Drain Joint/Bursa Major W/O US Completed 06/03/2017 40499 Carpal Tunnel Release Completed 06/03/2017 86850 Carpal Tunnel Release Completed 05/01/2016 25758115 Mammogram Completed 04/06/2016 37209 EEG Recording Awake & Drowsy Completed 04/03/2016 27136 EKG, Interpretation Only Completed 04/29/2015 80947 EEG Recording Awake & Drowsy Completed 04/16/2012 88425 EKG, Interpretation Only Completed 04/16/2012 29103 EKG, Interpretation Only Completed Encounters Type Date Location Provider Dx Diagnosis Office Visit 05/22/2018 [facility] Internal Rosa Schroeder MD R19.7 Diarrhea, 2:30p Medicine - [address] L08.1 Erythrasma R15.1 Fecal smearing Office Visit 05/15/2018 1:30p [facility] Internal Rosa Schroeder, R19.7 Diarrhea, Medicine - [address] F17.210 Nicotine dependence, cigarettes, uncomplicated J45.909 Unspecified asthma, uncomplicated E11.65 Type 2 diabetes mellitus with hyperglycemia Z91.81 History of falling E11.9 Type 2 diabetes mellitus without complications Office Visit 05/08/2018 9:30a [facility] Jun Schroeder E11.65 Type 2 diabetes Medicine - MD mellitus with [address] hyperglycemia R15.1 Fecal smearing I10 Essential (primary) hypertension R94.5 Abnormal results of liver function studies F33.3 Major depressv disorder, recurrent, severe w psych symptoms [facility] G92 Toxic encephalopathy 11:25a Assmatthieu drake M.D. Hospitalists T50.904A Poisoning by unsp drug/meds/biol subst, undetermined, init F60.3 Borderline personality disorder R40.2432 Kriss coma scale score 3-8, EMR Office Visit 11/03/2017 11:23a [facility] Ishmael Dumont G92 Toxic encephalopathy Cheng, D.O. F60.3 Borderline personality disorder T50.904A Poisoning by unsp drug/meds/biol subst, undetermined, init R40.2432 Agency coma scale score 3-8, EMR Office Visit 11/02/2017 11:22a [facility] Ishmael Dumont R40.2432 Kriss coma Cheng, D.O. scale score 3-8, EMR G92 Toxic encephalopathy T50.904A Poisoning by unsp drug/meds/biol subst, undetermined, init F60.3 Borderline personality disorder Office Visit 10/18/2017 Orthopedic Naveed Lutz M75.31 Calcific tendinitis 9:00a Services Of MD Venecia of right shoulder C.M.A. Office Visit 10/13/2017 [facility] Jun Cowan E11.65 Type 2 diabetes 1:40p Medicine - [place] Ayla, mellitus with Rd M.DJarred hyperglycemia Z12.31 Encntr screen mammogram for malignant neoplasm of breast Z12.11 Encounter for screening for malignant neoplasm of colon Office Visit 10/11/2017 Orthopedic Naveed F M75.31 Calcific tendinitis 1:30p Services Of MD Venecia of right shoulder C.M.A. Office Visit 09/28/2017 [facility] Internal [place]ham E11.65 Type 2 diabetes 1:20p Medicine - Ayla, mellitus with [place] M.DJarred hyperglycemia M79.645 Pain in left finger(s) E03.9 Hypothyroidism, unspecified Office Visit 09/19/2017 [facility] Internal Chapo E11.65 Type 2 diabetes 2:40p Jaylene Aguila M.D. mellitus with [address] hyperglycemia M54.5 Low back pain Office Visit 08/17/2017 2:10p [facility] Internal Lachelle F33.3 Major depressv Medicine - LUZ Berrios disorder, [address] recurrent, severe w psych symptoms R45.851 Suicidal ideations Office Visit 08/11/2017 1:20p [facility] Internal [place] Ayla, F31.31 Bipolar Medicine - M.DJarred disorder, [address] current episode depressed, mild M51.16 Intervertebral disc disorders w radiculopathy, lumbar region K63.5 Polyp of colon K21.9 Gastro-esophageal reflux disease without esophagitis Office Visit 07/15/2017 11:00a [facility] Internal Chap[place] E11.9 Type 2 diabetes Jaylene Aguila M.D. mellitus without [address] complications M51.16 Intervertebral disc disorders w radiculopathy, lumbar region F31.31 Bipolar disorder, current episode depressed, mild E66.01 Morbid (severe) obesity due to excess calories Z68.41 Body mass index (BMI) 40.0-44.9, adult Office Visit 06/13/2017 3:20p [facility] Internal [place] E11.9 Type 2 diabetes Jaylene Aguila M.D. [...] dependence, cigarettes, uncomplicated B37.9 Candidiasis, unspecified Z79.4 care home (current) use of insulin Office Visit 05/26/2017 Orthopedic Marline G56.02 Carpal tunnel 8:45a Services Of Hilda Duarte M.D. 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 4-Aminophenol Hospitalists derivatives, self-harm, init E11.9 Type 2 diabetes mellitus without complications F79 Unspecified intellectual disabilities Office Visit 05/20/2016 [facility] T39.1x2A Poisoning by 3:24p Assocmatthieu M.D. 4-Aminophenol Hospitalists derivatives, self-harm, init E11.9 Type 2 diabetes mellitus without complications F79 Unspecified intellectual disabilities Office Visit 05/19/2016 [facility] T39.1x2A Poisoning by 3:24p Assocmatthieu M.D. 4-Aminophenol Hospitalists derivatives, self-harm, init E11.9 Type 2 diabetes mellitus without complications F79 Unspecified intellectual disabilities Office Visit 05/18/2016 [facility] T39.1x2A Poisoning by 3:23p Assocmatthieu M.D. 4-Aminophenol Hospitalists derivatives, self-harm, init E11.9 Type 2 diabetes mellitus without complications F79 Unspecified intellectual disabilities Office Visit 05/17/2016 [facility] Ml T39.1x2A Poisoning by 3:23p Assoc,matthieu Mosquera M.D. 4-Aminophenol Hospitalists derivatives, self-harm, init E11.9 Type 2 diabetes mellitus without complications F79 Unspecified intellectual disabilities Office Visit 05/16/2016 [facility] Ml T39.1x2A Poisoning by 3:22p Assoc,matthieu Mosquera M.D. 4-Aminophenol Hospitalists derivatives, self-harm, init E11.9 Type 2 diabetes mellitus without complications F79 Unspecified intellectual disabilities Office Visit 05/15/2016 [facility] Ml T39.1x2A Poisoning by 3:22p Assoc,matthieu Mosquera M.D. 4-Aminophenol Hospitalists derivatives, self-harm, init E11.9 Type 2 diabetes mellitus without complications F79 Unspecified intellectual disabilities Office Visit 05/14/2016 [facility] Yara T39.1x2A Poisoning by 3:22p Assoc,matthieu Daly D.O. 4-Aminophenol Hospitalists derivatives, self-harm, init E11.9 Type 2 diabetes mellitus without complications F79 Unspecified intellectual disabilities Office Visit 05/13/2016 [facility] Yara T39.1x2A Poisoning by 3:21p Assoc,matthieu Daly D.O. 4-Aminophenol Hospitalists derivatives, self-harm, init E11.9 Type 2 diabetes mellitus without complications F79 Unspecified intellectual disabilities Office Visit 05/12/2016 [facility] Yara T39.1x2A Poisoning by 3:21p Assoc,matthieu Daly D.O. 4-Aminophenol Hospitalists derivatives, self-harm, init E11.9 Type 2 diabetes mellitus without complications F79 Unspecified intellectual disabilities Office 05/11/2016 [facility] Benjamin T39.1x2A Poisoning by Visit 3:20p Assoc,RAÚL Brewer 4-Aminophenol Hospitalists derivatives, self-harm, init E11.9 Type 2 diabetes mellitus without complications F79 Unspecified intellectual disabilities Office Visit 05/03/2016 [facility] Anu R73.9 Hyperglycemia, 11:09a Assoc,pc Joe, DO unspecified Hospitalists J40 Bronchitis, not specified as acute or chronic G89.4 Chronic pain syndrome Office Visit 04/07/2016 3:52p [facility] Ml R40.4 Transient Assoc,matthieu Mosquera M.D. alteration of Hospitalists awareness E13.9 Other specified diabetes mellitus without complications F79 Unspecified intellectual disabilities Z91.19 Patient's noncompliance w oth medical treatment and regimen Office Visit 04/06/2016 3:52p [facility] Ml R40.4 Transient Assoc,matthieu Mosquera M.D. alteration of Hospitalists awareness E13.9 Other specified diabetes mellitus without complications F79 Unspecified intellectual disabilities Z91.19 Patient's noncompliance w oth medical treatment and regimen Office Visit 04/05/2016 3:51p [facility] Yara R40.4 Transient Assoc,pc Addy, D.O. alteration of Hospitalists awareness E13.9 Other specified diabetes mellitus without complications F79 Unspecified intellectual disabilities Z91.19 Patient's noncompliance w oth medical treatment and regimen Office Visit 04/04/2016 3:51p [facility] Yara R40.4 Transient Assoc,matthieu Daly, D.O. alteration of Hospitalists awareness E13.9 Other specified diabetes mellitus without complications F79 Unspecified intellectual disabilities Z91.19 Patient's noncompliance w oth medical treatment and regimen Office Visit 04/03/2016 3:50p [facility] Rosi R40.4 Transient Assoc,matthieu Grant, LUZ alteration of Hospitalists awareness E13.9 Other specified diabetes mellitus without complications F79 Unspecified intellectual disabilities Z91.19 Patient's noncompliance w oth medical treatment and regimen Office Visit 10/01/2015 10:08a [facility] Gray M54.31 Sciatica, right Assoc,matthieu Conn, N.P. side Hospitalists E11.9 Type 2 diabetes mellitus without complications F60.3 Borderline personality disorder Office Visit 09/28/2015 10:06a [facility] Ml M54.31 Sciatica, right Assoc,matthieu Mosquera M.D. side Hospitalists E11.9 Type 2 diabetes mellitus without complications Office Visit 04/24/2015 [facility] Conner 276.1 Hyposmolality & Or 1:31p Assoc,matthieu Powers M.D. Hyponatremia Hospitalists 296.7 Bipolar I Disorder Current NOS 301.83 Borderline Personality Disorder Office Visit 04/23/2015 [facility] Conner 276.1 Hyposmolality & Or 1:30p Assocmatthieu M.D. Hyponatremia Hospitalists 250.00 Diabetes Mellitus W/O Compl Type II Or Unspec Controlled 296.7 Bipolar I Disorder Current NOS 301.83 Borderline Personality Disorder Office Visit 04/22/2015 [facility] Quique 276.1 Hyposmolality & Or 1:29p Assoc,matthieu Aden M.D. Hyponatremia Hospitalists 250.00 Diabetes Mellitus W/O Compl Type II Or Unspec Controlled 301.83 Borderline Personality Disorder Office Visit 04/21/2015 [facility] Gray 276.1 Hyposmolality & Or 1:28p Assoc,matthieu Conn NJarredPJarred Hyponatremia Hospitalists 296.7 Bipolar I Disorder Current NOS 301.83 Borderline Personality Disorder 250.00 Diabetes Mellitus W/O Compl Type II Or Unspec Controlled Office Visit 11/27/2014 [facility] Sherita 244.9 Hypothyroidism 8:42a Assocmatthieu M.D. Other Unspec Hospitalists 250.02 Diabetes Mellitus W/O Compl Type II Or Unspec Type Uncontrol 301.83 Borderline Personality Disorder Office Visit 04/17/2012 [facility] 969.09 Poisoning By Other 4:07p Assocmatthieu D.O. Antidepressants Hospitalists 300.9 Nonpsychotic Disorders NOS 311 Depressive Disorder Not Elsewhere Spec Office 04/16/2012 [facility] 969.09 Poisoning By Other Visit 4:35p Assocmatthieu M.D. Antidepressants Hospitalists 300.9 Nonpsychotic Disorders NOS 311 Depressive Disorder Not Elsewhere Spec V11.1 History Personal Affective Disorder Office Visit 10/18/2009 1:00a [facility] Jase Edin, 789.00 Pain Abdominal Assocmatthieu M.D. Unspec Site Hospitalists 787.03 Vomiting Alone 790.29 Other Abnormal Glucose 250.02 Diabetes Mellitus W/O Compl Type II Or Unspec Type Uncontrol Office Visit 10/17/2009 3:00a [facility] Jase Edin, 790.29 Other Abnormal Assocmatthieu M.D. Glucose Hospitalists 789.00 Pain Abdominal Unspec Site 295.70 Schizoaffective Disorder NOS 401.9 Hypertension Unspec [facility] Other Abnormal Assoc,matthieu Marshall M.D. Glucose Hospitalists 296.80 Bipolar Disorder NOS Plan of Treatment Future Appointment(s):06/29/2018 10:40 am - Rosa Schroeder MD at [facility] Internal Medicine - [address]08/08/2018 1:40 pm - Rosa Schroeder MD at [facility] Internal Medicine - [address]06/28/2018 - Marline Daurte M.D.M65.841 Other synovitis and tenosynovitis, right handFollow up:Follow up: As needed
--- NOTE | 2018-07-10 19:42 | ED ---
Psychiatric Complaint - HPI Summary HPI Summary: Patient is a 53 y/o F presenting to ED via ambulance from [place] with complaints of SI. She states that she had been at [facility] previously, was discharged apr 27, and sent to [place]. Patient claims that she has not been able to see psychiatrist for the past four months and reports that she has been "losing control". She states that she was having SI last night and was crying. Patient reports that she ingested two nicotine cartridges and cut her stomach with a bess hook multiple times. Medications include zyprexa. PMHx of diabetes, slipped disc, tendonitis right forearm. PSHx of back surgery denied , patient states she receives cortisone shots for pain. On triage, pain is rated 3/10, nothing is noted to aggravate/alleviate Sx. Home medications and allergies are reviewed. - History Of Current Complaint Chief Complaint: EDMentalHealth Hx Obtained From: Patient Hx Last Menstrual Period: "last month" Onset/Duration: Lasting Days - last night, Still Present Timing: Constant Severity Currently: Mild - 3/10 pain on triage Character: Depressed Aggravating Factor(s): Nothing Alleviating Factor(s): Nothing Has Suicidal: Reports: Thoughts, With A Plan - Patient reports that she ingested two nicotine cartridges and cut her stomach with a bess hook multiple times., Demonstrates Gesture - Patient reports that she ingested two nicotine cartridges and cut her stomach with a bess hook multiple times. Ingestion History: Type/Name Of Drug - Patient reports that she ingested two nicotine cartridges last night - Allergies/Home Medications Allergies/Adverse Reactions: Allergies Allergy/AdvReac Type Severity Reaction Status Date / Time ciprofloxacin Allergy Dizziness Verified 06/26/18 22:46 latex Allergy Rash Verified 06/26/18 22:46 lithium Allergy See Comment Verified 06/26/18 22:46 [email or web address] Allergy Unknown Verified 06/26/18 22:46 Reaction Details Penicillins Allergy Rash Verified 06/26/18 22:46 perphenazine Allergy Unknown Verified 06/26/18 22:46 Reaction Details Sulfa (Sulfonamide Allergy Hives Verified 06/26/18 22:46 Antibiotics) tramadol Allergy Altered Verified 06/26/18 22:46 Mental Status ENVIRONMENTAL Allergy Mild SINUS Uncoded 06/26/18 22:46 Home Medications: Home Medications Atorvastatin* [Lipitor 40 MG*] 20 mg PO 2100 12/10/18 [History Confirmed ] Cholecalciferol (Vitamin D3) [Vitamin D3] 1,000 unit PO DAILY 07/10/18 [History Confirmed 07/10/18] Duloxetine HCl 80 mg PO DAILY 07/10/18 [History Confirmed 07/10/18] Fluticasone NASAL SPRAY 50MCG* [Flonase NASAL SPRAY 50MCG*] 2 spray BOTH NARES DAILY 07/10/18 [History Confirmed 07/10/18] Guaifenesin/Dextromethorphan [Mucinex Dm ER 600-30 mg Tablet] 1 each PO BID 05/18 [History Confirmed 07/10/18] Insulin Glargine,Hum.rec.anlog [Basaglar Kwikpen U-100] 60 units SUBCUT DAILY [History Confirmed 07/10/18] Levothyroxine Sodium [Synthroid] 150 mcg PO 0600 07/10/18 [History Confirmed 05/18] LoraTADine TAB(NF) [Claritin 10 MG TAB(NF)] 10 mg PO DAILY 07/10/18 [History Confirmed 07/10/18] Naproxen [Naproxen 500 mg tab] 500 mg PO BID 07/10/18 [History Confirmed ] Nicotine Inhaler* 10 mg INH Q2H PRN 07/10/18 [History Confirmed 07/10/18] Ondansetron HCl [Zofran 4 MG TAB] 4 mg PO Q8H 07/10/18 [History Confirmed ] PMH/Surg Hx/FS Hx/Imm Hx Endocrine/Hematology History: Reports: Hx Diabetes, Hx Thyroid Disease, Other Endocrine/Hematological Disorders - Chronic pancreatitis Denies: Hx Anticoagulant Therapy Cardiovascular History: Reports: Hx Hypertension - NO MEDICATION FOR PER PATIENT , Other Cardiovascular Problems/Disorders - HX OF PSVT 04/2008 Denies: Hx Pacemaker/ICD Respiratory History: Reports: Hx Asthma, Hx Seasonal Allergies, Hx Sleep Apnea - HX OF IN THE PAST Denies: Hx Chronic Bronchitis, Hx Chronic Obstructive Pulmonary Disease (COPD ), Hx Cystic Fibrosis, Hx Lung Cancer, Hx Pleural Effusion, Hx Pneumonia, Hx Pulmonary Edema, Hx Pulmonary Embolism, Other Respiratory Problems/Disorders GI History: Reports: Hx Gall Bladder Disease, Hx Gastroesophageal Reflux Disease - ON MEDICATION FOR, Hx Gastrointestinal Bleed, Hx Irritable Bowel, Other GI Disorders - HX OF pancreatitis- STATES LAST ABOUT 2 WEEKS AGO- STATES SLIGHT CASE Denies: Hx Ulcer History: Denies: Hx Dialysis, Hx Renal Disease Musculoskeletal History: Reports: Hx Arthritis, Hx Back Problems, Other Musculoskeletal History - GEN MUSCULOSKELETAL PAIN Denies: Hx Rheumatoid Arthritis, Hx Bursitis, Hx Congenital Bone Abnormalities, Hx Fibromyalgia, Hx Gout, Hx Orthopedic Injury, Hx Osteoporosis, Hx Scoliosis, Hx Tendonitis Sensory History: Reports: Hx Vision Problem Denies: Hx Cataracts, Hx Contacts or Glasses, Hx Eye Injury, Hx Eye Prosthesis, Hx Glaucoma, Hx Macular Degeneration, Hx Hearing Aid, Other Sensory Impairments Opthamlomology History: Reports: Hx Vision Problem Denies: Hx Cataracts, Hx Contacts or Glasses, Hx Eye Injury, Hx Eye Prosthesis, Hx Glaucoma, Hx Macular Degeneration, Other Sensory Impairments Neurological History: Reports: Hx Developmental Delay - intellectual disability , Hx Seizures - STATES WITH ALLERGIC REACTION TO TRAMADOL Denies: Hx Dementia, Hx Headaches, Other Neuro Impairments/Disorders Psychiatric History: Reports: Hx Anxiety - ON MEDICATION FOR, Hx Depression - ON MEDICATION FOR, Hx Post Traumatic Stress Disorder, Hx Inpatient Treatment, Hx Community Mental Health Tx, Hx Bipolar Disorder - pt manic, Hx Suicide Attempt - past med overdoses, Hx of Violent Episodes Against Others, Other Psychiatric Issues/Disorders - PSYCHOSIS NOS, HX OF PTSD, SCHIZOAFFECTIVE DISORDER, BORDERLINE PERSONALITY Denies: Hx Attention Deficit Hyperactivity Disorder, Hx Eating Disorder, Hx Panic Disorder, Hx Schizophrenia, Hx Substance Abuse - Cancer History Cancer Type, Location and Year: None reported - Surgical History Surgery Procedure, Year, and Place: 2011-CATARACT EXTRACTION. GALLBLADDER REMOVED Hx Anesthesia Reactions: No - Immunization History Date of Tetanus Vaccine: Unknown Date of Influenza Vaccine: 04/2017 Infectious Disease History: No Infectious Disease History: Denies: Hx Clostridium Difficile, Hx Hepatitis, Hx Human Immunodeficiency Virus (HIV), Hx of Known/Suspected MRSA, Hx Shingles, Hx Tuberculosis, Hx Known/ Suspected VRE, Hx Known/Suspected VRSA, History Other Infectious Disease, Traveled Outside the [place] in Last 30 Days - Family History Known Family History: Positive: Other - Anxiety and depression, [place] - father Negative: Cardiac Disease, Hypertension, Diabetes Family History: Depression and anxiety - Social History Alcohol Use: None Hx Substance Use: Yes Substance Use Type: Reports: None Hx Tobacco Use: Yes Smoking Status (MU): Current Some Day Smoker Type: Cigarettes Amount Used/How Often: 1/2 PPD FOR LAST 30 DAYS, NO OTHER TOBACCO Length of Time of Smoking/Using Tobacco: 2 year ago Have You Smoked in the Last Year: Yes - Patient has smoked within the last 30 days Review of Systems Negative: Fever - on vitals, temp is 98 F Positive: Other - superficial wounds on abdomen Positive: Depressed, Other - SI All Other Systems Reviewed And Are Negative: Yes Physical Exam - Summary Physical Exam Summary: VITAL SIGNS: Reviewed. GENERAL: Patient is a well-developed and nourished female who is lying comfortable in the stretcher. Patient is not in any acute respiratory distress. HEAD AND FACE: No signs of trauma. No ecchymosis, hematomas or skull depressions. No sinus tenderness. EYES: PERRLA, EOMI x 2, No injected conjunctiva, no nystagmus. EARS: Hearing grossly intact. Ear canals and tympanic membranes are within normal limits. MOUTH: Oropharynx within normal limits. NECK: Supple, trachea is midline, no adenopathy, no JVD, no carotid bruit, no c- spine tenderness, neck with full ROM. CHEST: Symmetric, no tenderness at palpation LUNGS: Clear to auscultation bilaterally. No wheezing or crackles. CVS: Regular rate and rhythm, S1 and S2 present, no murmurs or gallops appreciated. ABDOMEN: Soft, non-tender. No signs of distention. No rebound no guarding, and no masses palpated. Bowel sounds are normal. EXTREMITIES: FROM in all major joints, no edema, no cyanosis or clubbing. NEURO: Alert and oriented x 3. No acute neurological deficits. Speech is normal and follows commands. SKIN: Dry and warm; multiple superficial wounds over periumbilical area Triage Information Reviewed: Yes Vital Signs On Initial Exam: Initial Vitals Temp Pulse Resp BP Pulse Ox 98.0 F 79 18 110/76 100 07/10/18 18:41 07/10/18 18:41 07/10/18 18:41 07/10/18 18:41 07/10/18 18:41 Vital Signs Reviewed: Yes Diagnostics - Vital Signs Vital Signs Temp Pulse Resp BP Pulse Ox 07/10/18 18:41 98.0 F 79 18 110/76 100 - Laboratory Result Diagrams: 07/10/18 19:47 07/10/18 19:47 Lab Statement: Any lab studies that have been ordered have been reviewed, and results considered in the medical decision making process. Course/Dx - Course Course Of Treatment: Patient is a 53 y/o F presenting to ED via ambulance from [place] with complaints of SI. She states that she had been at [facility] previously, was discharged apr 27, and sent to [place]. Patient claims that she has not been able to see psychiatrist for the past four months and reports that she has been "losing control". She states that she was having SI last night and was crying. Patient reports that she ingested two nicotine cartridges and cut her stomach with a bess hook multiple times. Medications include zyprexa. PMHx of diabetes, slipped disc, tendonitis right forearm. PSHx of back surgery denied, patient states she receives cortisone shots for pain. On physical exam, multiple superficial wounds over periumbilical area. Abnormal labs showed WBC 14.1, RDW 16, absolute neuts 9.2, BUN 31, creatinine 1.06, BUN/ creatinine ratio 29.2, glucose 216, alk phos 123. UA showed trace leukocyte esterase, 1+ RBC, WBC, and bacteria, squamous epith cells present. Tox screen was negative. Patient was medically cleared for [facility]. During ED course, patient received Ativan 2 mg. 0615 Patients case had been reviewed by Dr. Webb. Dr. Webb states patient can be discharged to home. - Differential Dx/Clinical Impression Provider Diagnosis: Borderline personality disorder in adult - Physician Notifications Discussed Care Of Patient With: Elias Webb Time Discussed With Above Provider: 06:15 Instructed by Provider To: Other - 0615 Patients case had been reviewed by Dr. Webb. Dr. Webb states patient can be discharged to home. Discharge - Sign-Out/Discharge Documenting (check all that apply): Patient Departure - discharge - Discharge Plan Condition: Stable Disposition: HOME Referrals: Chapo Aguila MD [Primary Care Provider] - - Attestation Statements Document Initiated by Scribe: Yes Documenting Scribe: ERIN VELOZ Provider For Whom Scribe is Documenting (Include Credential): ROLANDO FLEMING MD Scribe Attestation: IERIN scribed for ROLANDO FLEMING MD on 07/11/18 at 0646. Status of Scribe Document: Ready
[2018-07-10 19:56] LABS: ABS Basophils 0.1 10^3/ul (0-0.2); ABS Eosinophils 0.2 10^3/ul (0-0.6); ABS Lymphocytes 3.8 10^3/ul (1.0-4.8); ABS Monocytes 0.7 10^3/ul (0-0.8); ABS Neutrophils 9.2 10^3/ul (1.5-7.7); ABS Nucleated RBC 0 10^3/ul; Eosinophil % 1.7 %; Hematocrit 42 % (35-47); Hemoglobin 13.6 g/dl (12.0-16.0); Lymphocyte % 27.2 %; Mean Corpuscular HGB Conc 33 g/dl (31-36); Mean Corpuscular Hemoglobin 29 pg (27-31); Mean Corpuscular Volume 87 fL (80-97); Mean Platelet Volume 9.3 fL (7.4-10.4); Nucleated Red Blood Cells % 0; Platelet Count 267 10^3/ul (150-450); Red Blood Count 4.77 10^6/ul (4.00-5.40); Red Cell Distribution Width 16 % (10.5-15); White Blood Count 14.1 10^3/ul (3.5-10.8)
[2018-07-10 20:13] LABS: EGFR Non-African American 54.4 (>60)
[2018-07-10 20:45] LABS: Urine Appearance Cloudy; Urine Blood Negative (Negative); Urine Color Yellow; Urine Ketones Negative (Negative); Urine Protein Negative (Negative); Urine Red Blood Cell 1+(3-5/hpf) (Absent); Urine Specific Gravity 1.017 (1.010-1.030); Urine Urobilinogen Negative (Negative); Urine White Blood Cell 1+(6-10/hpf) (Absent)
[2018-07-10] MEDS ORDERED: LORazepam TAB(*) 1 MG PO ONE (21:31)
[2018-07-11 08:47] VITALS: BP 139/76
== END 2018-07-11 08:41 | disposition home or self-care (01) ==
LOC: ED 18:39
DX: F60.3 Borderline personality disorder (principal); S30.92XA Unspecified superficial injury of abdominal wall, initial encounter; X83.8XXA Intentional self-harm by other specified means, initial encounter; Y92.89 Other specified places as the place of occurrence of the external cause; E11.9 Type 2 diabetes mellitus without complications; Z79.4 Long term (current) use of insulin; E07.9 Disorder of thyroid, unspecified; F41.9 Anxiety disorder, unspecified; F32.9 Major depressive disorder, single episode, unspecified; Z88.5 Allergy status to narcotic agent; Z88.0 Allergy status to penicillin; Z88.2 Allergy status to sulfonamides; Z88.8 Allergy status to other drugs, medicaments and biological substances; Z88.1 Allergy status to other antibiotic agents; Z91.040 Latex allergy status; Z72.0 Tobacco use
CPT/HCPCS: 36415; 80053; 80307; 80320; 80329; 81003; 81015; 84443; 85025; 87086; 99285; A9270-GY; G0480

== ENCOUNTER 2018-07-13 01:36 | Emergency (ER) | payer MEDICARE, MEDICAID ==
[2018-07-13] MEDS ORDERED: Lidocaine PATCH 5%* 1 PATCH TRANSDERM ONE (02:18)
[2018-07-13] MEDS ORDERED: HYDROcodone/ACETAMIN 5-325 MG* 1 TAB PO ONE (02:21)
--- NOTE | 2018-07-13 02:33 | ED ---
Back Pain - HPI Summary HPI Summary: 53 year old female presents with acute on chronic back pain today. She states has been having pain to the right side of her back. She states pain radiates down her right leg. She admits to numbness but denies any tingling. She denies any injury. No loss of bowel or bladder. No saddle anesthesias. She denies any fevers. She states the sometimes pain causes her to almost stumble. No new injury. She states she has a follow-up with pain clinic a couple weeks to potentially get MRI. No urinary symptoms. Has been trying ice and heat without relief. - History of Current Complaint Chief Complaint: EDBackInjuryPain Stated Complaint: GENERAL ILLNESS Time Seen by Provider: 07/13/18 02:12 Hx Last Menstrual Period: "last month" Pain Intensity: 6 - Allergies/Home Medications Allergies/Adverse Reactions: Allergies Allergy/AdvReac Type Severity Reaction Status Date / Time ciprofloxacin Allergy Dizziness Verified 06/26/18 22:46 latex Allergy Rash Verified 06/26/18 22:46 lithium Allergy See Comment Verified 06/26/18 22:46 [email or web address] Allergy Unknown Verified 06/26/18 22:46 Reaction Details Penicillins Allergy Rash Verified 06/26/18 22:46 perphenazine Allergy Unknown Verified 06/26/18 22:46 Reaction Details Sulfa (Sulfonamide Allergy Hives Verified 06/26/18 22:46 Antibiotics) tramadol Allergy Altered Verified 06/26/18 22:46 Mental Status ENVIRONMENTAL Allergy Mild SINUS Uncoded 06/26/18 22:46 PMH/Surg Hx/FS Hx/Imm Hx Endocrine/Hematology History: Reports: Hx Diabetes, Hx Thyroid Disease, Other Endocrine/Hematological Disorders - Chronic pancreatitis Denies: Hx Anticoagulant Therapy Cardiovascular History: Reports: Hx Hypertension - NO MEDICATION FOR PER PATIENT , Other Cardiovascular Problems/Disorders - HX OF PSVT 04/2008 Denies: Hx Pacemaker/ICD Respiratory History: Reports: Hx Asthma, Hx Seasonal Allergies, Hx Sleep Apnea - HX OF IN THE PAST Denies: Hx Chronic Bronchitis, Hx Chronic Obstructive Pulmonary Disease (COPD ), Hx Cystic Fibrosis, Hx Lung Cancer, Hx Pleural Effusion, Hx Pneumonia, Hx Pulmonary Edema, Hx Pulmonary Embolism, Other Respiratory Problems/Disorders GI History: Reports: Hx Gall Bladder Disease, Hx Gastroesophageal Reflux Disease - ON MEDICATION FOR, Hx Gastrointestinal Bleed, Hx Irritable Bowel, Other GI Disorders - HX OF pancreatitis- STATES LAST ABOUT 2 WEEKS AGO- STATES SLIGHT CASE Denies: Hx Ulcer History: Denies: Hx Dialysis, Hx Renal Disease Musculoskeletal History: Reports: Hx Arthritis, Hx Back Problems, Other Musculoskeletal History - GEN MUSCULOSKELETAL PAIN Denies: Hx Rheumatoid Arthritis, Hx Bursitis, Hx Congenital Bone Abnormalities, Hx Fibromyalgia, Hx Gout, Hx Orthopedic Injury, Hx Osteoporosis, Hx Scoliosis, Hx Tendonitis Sensory History: Reports: Hx Vision Problem Denies: Hx Cataracts, Hx Contacts or Glasses, Hx Eye Injury, Hx Eye Prosthesis, Hx Glaucoma, Hx Macular Degeneration, Hx Hearing Aid, Other Sensory Impairments Opthamlomology History: Reports: Hx Vision Problem Denies: Hx Cataracts, Hx Contacts or Glasses, Hx Eye Injury, Hx Eye Prosthesis, Hx Glaucoma, Hx Macular Degeneration, Other Sensory Impairments Neurological History: Reports: Hx Developmental Delay - intellectual disability , Hx Seizures - STATES WITH ALLERGIC REACTION TO TRAMADOL Denies: Hx Dementia, Hx Headaches, Other Neuro Impairments/Disorders Psychiatric History: Reports: Hx Anxiety - ON MEDICATION FOR, Hx Depression - ON MEDICATION FOR, Hx Post Traumatic Stress Disorder, Hx Inpatient Treatment, Hx Community Mental Health Tx, Hx Bipolar Disorder - pt manic, Hx Suicide Attempt - past med overdoses, Hx of Violent Episodes Against Others, Other Psychiatric Issues/Disorders - PSYCHOSIS NOS, HX OF PTSD, SCHIZOAFFECTIVE DISORDER, BORDERLINE PERSONALITY Denies: Hx Attention Deficit Hyperactivity Disorder, Hx Eating Disorder, Hx Panic Disorder, Hx Schizophrenia, Hx Substance Abuse - Cancer History Cancer Type, Location and Year: None reported - Surgical History Surgery Procedure, Year, and Place: 2011-CATARACT EXTRACTION. GALLBLADDER REMOVED Hx Anesthesia Reactions: No - Immunization History Date of Tetanus Vaccine: Unknown Date of Influenza Vaccine: 04/2017 Infectious Disease History: No Infectious Disease History: Denies: Hx Clostridium Difficile, Hx Hepatitis, Hx Human Immunodeficiency Virus (HIV), Hx of Known/Suspected MRSA, Hx Shingles, Hx Tuberculosis, Hx Known/ Suspected VRE, Hx Known/Suspected VRSA, History Other Infectious Disease, Traveled Outside the [place] in Last 30 Days - Family History Known Family History: Positive: Other - Anxiety and depression, [place] - father Negative: Cardiac Disease, Hypertension, Diabetes Family History: Depression and anxiety - Social History Alcohol Use: None Hx Substance Use: Yes Substance Use Type: Reports: None Hx Tobacco Use: Yes Smoking Status (MU): Current Some Day Smoker Type: Cigarettes Amount Used/How Often: 1/2 PPD FOR LAST 30 DAYS, NO OTHER TOBACCO Length of Time of Smoking/Using Tobacco: 2 year ago Have You Smoked in the Last Year: Yes - Patient has smoked within the last 30 days Review of Systems Negative: Fever Negative: Chest Pain Negative: Shortness Of Breath Positive: Myalgia - back pain All Other Systems Reviewed And Are Negative: Yes Physical Exam Triage Information Reviewed: Yes Vital Signs On Initial Exam: Initial Vitals Temp Pulse Resp BP Pulse Ox 97.6 F 91 20 164/102 98 07/13/18 01:36 07/13/18 01:36 07/13/18 01:36 07/13/18 01:36 07/13/18 01:36 Vital Signs Reviewed: Yes Appearance: Positive: Well-Appearing Skin: Positive: Warm, Dry Head/Face: Positive: Normal Head/Face Inspection Eyes: Positive: Normal, Conjunctiva Clear ENT: Positive: Pharynx normal Respiratory/Lung Sounds: Positive: Clear to Auscultation, Breath Sounds Present Cardiovascular: Positive: Normal, RRR Abdomen Description: Positive: Nontender, Soft Bowel Sounds: Positive: Present Musculoskeletal: Positive: Strength/ROM Intact - back, Other - tenderness left side of lower back, good pulses, sensation grossly intact Neurological: Positive: Reflexes Intact - patella, Babinski Bilateral - normal Psychiatric: Positive: Normal Diagnostics - Vital Signs Vital Signs Temp Pulse Resp BP Pulse Ox 07/13/18 01:36 97.6 F 91 20 164/102 98 - Laboratory Lab Statement: Any lab studies that have been ordered have been reviewed, and results considered in the medical decision making process. Re-Evaluation - Re-Evaluation First Eval Re-Evaluation Time: 03:05 Change: Improved Back Pain Course/Dx - Course Course Of Treatment: 53 year old female presents with acute on chronic back pain today. She states has been having pain to the right side of her back. She states pain radiates down her right leg. She admits to numbness but denies any tingling. She denies any injury. No loss of bowel or bladder. No saddle anesthesias. She denies any fevers. She states the sometimes pain causes her to almost stumble. No new injury. She states she has a follow-up with pain clinic a couple weeks to potentially get MRI. No urinary symptoms. Has been trying ice and heat without relief. on exam has tenderness lower back right sided. neurovascular intact. babskini normal. gave lidocaine patch and norco. patient has had multiple imaging in the last year showing degenerative changes. patient is suppose to have mri in next couple weeks. is currently able to move all around in the bed. no neuro deficit appreciated and no new injury so a CT today will not change disposition. will try on lidocaine patch as patient has a history of OD. told to follow up with primary patient understand and agrees with plan. - Diagnoses Differential Diagnosis/HQI/PQRI: Positive: Fracture, Herniated Disc, Strain Provider Diagnoses: Back pain Discharge - Sign-Out/Discharge Documenting (check all that apply): Patient Departure - Discharge Plan Condition: Good Disposition: HOME Prescriptions: Lidocaine PATCH 5%* [Lidoderm 5% Patch*] 1 patch TRANSDERM DAILY #7 patch Patient Education Materials: Back Pain (ED) Referrals: Chapo Aguila MD [Primary Care Provider] - Additional Instructions: Apply lidocaine patches to area for up to 12 hours in one 24 hour period Use Tylenol for pain every 6 hours ice/heat area, move as much as possible Follow up with primary within 5 days Return to ED if develop any new or worsening symptoms - Billing Disposition and Condition Condition: GOOD Disposition: Home
[2018-07-13 03:05] VITALS: BP 138/87
== END 2018-07-13 03:07 | disposition home or self-care (01) ==
LOC: ED 01:36
DX: M54.9 Dorsalgia, unspecified (principal); K21.9 Gastro-esophageal reflux disease without esophagitis; F41.9 Anxiety disorder, unspecified; F32.9 Major depressive disorder, single episode, unspecified; Z90.49 Acquired absence of other specified parts of digestive tract; Z88.5 Allergy status to narcotic agent; Z88.0 Allergy status to penicillin; Z88.2 Allergy status to sulfonamides; Z88.8 Allergy status to other drugs, medicaments and biological substances; Z88.1 Allergy status to other antibiotic agents; Z91.040 Latex allergy status; Z72.0 Tobacco use
CPT/HCPCS: 99283; A9270-GY

== ENCOUNTER 2018-07-20 00:41 | Emergency (ER) | payer MEDICARE, MEDICAID ==
--- OUTSIDE RECORDS SUMMARY | 2018-07-20 00:48 | XMS REPORT | Continuity of Care Document ---
:1965 External Reference #:[id number] Author Name Liliana Christian Care Team Providers Name Role Phone Rosa Schroeder M.D. Primary Care Physician Unavailable Payers Type Date Identification Numbers Payment Provider Subscriber Effective: 1991 Policy Number: [id number] Medicare Cecilio Alfaro PayID: [id number] [address] [place] [address] Policy Number: [id number] Medicaid Cecilio Alfaro Group Name: 1 1 [address] PayID: [id number] [place] [address] Advance Directives Description No Information Available Problems [...] severe mental illness Lives With Assisted living [place] since March 2018. Was at [facility] from October-Apr 2018 Occupation Unemployed Occupation Disabled Tobacco Use Start: Unknown Light tobacco smoker (10 or fewer cigarettes/day) ETOH Use Denies alcohol use Recreational Drug Use Former Drug User Tobacco Use Start: Unknown Patient is a current pt using Nicotrol smoker, smokes some inhaler to quit. days Smoking Status Reviewed: 07/18/18 Patient is a current pt using Nicotrol smoker, smokes some inhaler to quit. days Exercise Type/Frequency Exercises rarely Allergies, Adverse Reactions, Alerts Date Description Reaction Status Severity Comments 05/10/2017 Latex Urticaria Active 05/10/2017 Sulfa Antibiotics hives Active 05/10/2017 Penicillins Urticaria Active 05/10/2017 Nalbuphine Active 05/10/2017 Perphenazine Active 05/10/2017 Ciprofloxacin dizziness Active 05/10/2017 Tramadol altered mental status Active 05/10/2017 [place] Active 05/08/2018 Lurasidone Active Moderate 05/22/2018 Metformin Diarrhea Active Medications Medication Date Status Form Strength Qnty SIG Indications Ordering Provider Levothyroxine 07/17 Active Tablets 175mcg 30tab take E03.9 Mayer s 175mcg MD Lori daily on an empty stomach Depend Adjustable 07/03 Active Misc 120un use four Rosa Underwear its times a jeremías Schroeder MD Methylprednisolon 06/29 Active TBPK 4mg 21uni take as Miguel ts instructed yue Mckenzie MD dose pack instructio ns Naproxen 06/29 Active Tablets 500mg 14tab take 1 s tablet Schroeder, twice daily with food Flonase Allergy 06/23 Active Suspension 50mcg/Act 9.900 2 sprays ml in each Alexandre nostril twice a day Fiasp Flextouch 05/19 Active Solution 100Unit/M 30ml 22 units E11.65 Pen-Inject L per meal 3 Schroeder, times daily Basaglar Kwikpen 05/19 Active Solution 100Unit/M 6ml 66 units Pen-Inject L once daily MD Alexandre Nicotrol 05/18 Active Inhaler 10mg 168un 1 its cartridges Kamille Denson, every 2 M.D.,FACP hours as needed Nystatin 05/15 Active Powder [id number] 90gm apply t/GM twice Schroeder, daily until rash clears Walker Auto 05/15 Active Misc -08/08" 1unit use this Rosa Glides/ s to Alexandre, Adjustment ambulate MD Holes/-08/08" daily for unsteady gait Ventolin HFA 05/15 Active Aerosol 108(90Bas 8gm 2 by mouth e) every 4 Schroeder, mcg/Act hours as MD needed Onetouch Ultra 09/09 Active Strips 100un test up to E11.9 [place] its three Kamille Denson, times M.D.,FACP daily last visit: 03/18 Onetouch 08/31 Active Misc 100un test blood E11.9 [place] Ultrasoft Lanc its 2-3 a day Kamille Denson, or as M.D.,FACP needed BD Pen 08/24 [...] 90tab 1 tab at s bedtime MD Alexandre Onetouch Ultra Active Kit w/Device 1unit check bs E11.65 Alyson Mendez Mini / s up to Kamille Denson, three M.D.,FACP times daily Atorvastatin Active Tablets 20mg 90tab take 1 s tablet at Schroeder, bedtime Lamotrigine Active Tablets 100mg 180ta 1 by mouth bs twice a Schroeder, day Losartan Active Tablets 50mg 90tab 1 by mouth E11.65 Rosa s every day MD Alexandre Loratadine Active [...] Alexandre, mouth 3 MD times a day Lidoderm Active Patches 5% 1 apply to affected area 12 hours on, 12 hours off Mucinex DM 06/23 Hx Tablets ER 30-600mg 14tab one po bid 12HR s Schroeder, - 07/03 Ibuprofen 05/29 Hx Tablets 600mg [...] mouth once 05/22 a day with dinner Januvia 05/08 Hx Tablets 50mg 90tab one by E11.65 s mouth Schroeder, - daily 07/18 Depend Adjustable 05/08 Hx Misc 120un use four R15.1 Rosa Underwear its times a Schroeder, - day 07/03 Exercise 05/08 Hx Pt allowed E11.65 to engage Schroeder, - in 07/03 exercise at facilities under direct supervisio n of staff Tresiba Flextouch 10/13 Hx Solution 100Unit/M 15ml 100 units E11.65 Pen-Inject L at bedtime Pachikara - , M.DJarred 05/08 Losartan 10/13 Hx Tablets 25mg 30tab 1 by mouth E11.65 [place] Potassium s once a day Pachikara - M.D. 05/08 Hydrocodone-Aceta 10/10 Hx Tablets 5-325mg 20tab 1 tab [place] [facility] every 12h Pachikara - as needed , M.D. 05/08 Tresiba Flextouch 09/19 Hx Solution 100Unit/M 15ml 60 units E11.65 Pen-Inject L at bedtime Pachika - M.DJarred 10/13 Onetouch Ultra 08/31 Hx Lancets 100un check bs [facility] its twice Pachikara - daily , M.DJarred 05/08 Onetouch Ultra 08/31 Hx Strips 100un test up to E11.9 [place] its josey Denson, - times M.DJarred,FACP 09/09 daily visit:08/17 Mucinex 08/28 Hx Tablets ER 600mg 20tab 1 po bid 12HR s prn Kamille Denson - Adelina,FACP 05/08 Doxycycline 08/28 Hx Capsules 100mg 13cap [...] by s mouth Kamille Denson, - three MMarkel,FACP 02/28 times a day Fluconazole 08/22 Hx Tablets 150mg 2tabs one by [place] mouth november DJarred Denson, - repeat in M.D.,FACP 05/08 3 days needed Lancets 28G 08/08 [...] Kit W/Device 1unit one touch Erik Glucose /2016 s glucometer [facility], Monitoring System - to measure M.D. 08/31 [...] 600mg as needed Home /0000 Paty - [employer] 05/08 Ondansetron Hx Tablets 8mg every 6-8 Home /0000 Dispers hours as Paty, - needed [employer] 05/[address] 40mg 30tab take 1 [place] Sodium / s tablet by [place]ikara - mouth once , M.D. 05/08 Lamotrigine Hx Tablets 150mg take 1 Unknown /0000 tablet by - mouth 05/08 twice a day Sertraline HCL Hx Tablets 100mg Take 1+1/2 Unknown /0000 Tablets By - Mouth Once 05/08 Novolog Flexpen /00 Hx Solution 100Unit/M Inject 15 Unknown /0000 Pen-Inject L Units Subq Three Times A Day With Meals Cyclobenzaprine /00 Hx Tablets 10mg as needed Unknown HCL /0000 - 09/28 Latuda 00/00 Hx Tablets 80mg daily Unknown /0000 - 05/08 Levothyroxine 00/00 Hx Tablets 50mcg 90tab 1 tab [place] Sodium /0000 s daily in [facility] - the empty , M.D. 05/08 Levothyroxine 00 Hx Tablets 200mcg 90tab 1 tab [place] Sodium /0000 s daily am [facility] , M.D. 05/08 empty stomach Naproxen Hx Tablets 500mg 60tab twice [place] /0000 s daily [facility] - , M.D. 07/15 Lantus Solostar 00 Hx Solution 100Unit/M 15ml 30 units [place] /0000 Pen-Inject L SC in Am, Kamille Denson, - and 70 M.D.,FACP 08/26 units SC hs Atorvastatin Hx Tablets 40mg 90tab take one [place] Calcium /0000 s tablet by [facility] - mouth , M.D. 05/08 Pictonix 00 Hx 40 mg Unknown /0000 daily Novalog 00/00 Hx 10 units Unknown /0000 before - meals 05/08 Levothyroxine 00 Hx Tablets 150mcg 90tab 1 by mouth E03.9 Rosa Sodium /0000 s every day Elliott Schroeder MD 07/17 Humalog Kwikpen 00 Hx Solution 100Unit/M 9ml 4-10 Units E11.65 Rosa /0000 Pen-Inject L SQ three Schroeder, - times a 05/19 day, at mealtime, per sliding scale instructio ns Metformin HCL 00 Hx Tablets 500mg 1 by mouth Unknown /0000 twice a - day 05/08 Naproxen 00 Hx Tablets 375mg 180ta twice a Rosa /0000 bs day with Elliott Schroeder food 07/03 Lantus Solostar 00 Hx Solution 100Unit/M 45ml 40 units Rosa /0000 Pen-Inject L twice Schroeder, - daily 05/22 Medications Administered in Office Medication Date Status Form Strength Qnty SIG Indications Ordering Provider Justice Administered Injection Naveed F 40MG 018 MD Venecia Immunizations CPT Code Status Date Vaccine Lot # [id number] Given 05/01/2018 Influenza Virus Vaccine, Quadrivalent, Split, Preservative Free Vital Signs Date Vital Result Comment 07/18/2018 10:19am Height 67 inches 5'7" Weight 261.00 lb w/ shoes Heart Rate 87 /min BP Systolic Sitting 152 mmHg BP Diastolic Sitting 91 mmHg BMI (Body Mass Index) 40.9 kg/m2 07/04/2018 12:34pm Height 67 inches 5'7" Weight [...] Date Facility Test Result H/L Range Note CBC Auto Diff 07/10/2018 [facility] White Blood 14.1 10^3/uL High 3.5-10.[address] [place] [address] [phone] Red Blood Count 4.77 10^6/uL N 4.00-5.40 Hemoglobin 13.6 g/dL N 12.0-16.0 Hematocrit 42 % N 35-47 Mean Corpuscular Volume 87 fL N 80-97 Mean Corpuscular Hemoglobin 29 pg N 27-31 Mean Corpuscular HGB Conc 33 g/dL N 31-36 Red Cell Distribution Width 16 % High 10.5-15 Platelet Count 267 10^3/uL N 150-450 Mean Platelet Volume 9.3 fL N 7.4-10.4 Abs Neutrophils 9.2 10^3/uL High 1.5-7.7 Abs Lymphocytes 3.8 10^3/uL N 1.0-4.8 Abs Monocytes 0.7 10^3/uL N 0-0.8 Abs Eosinophils 0.2 10^3/uL N 0-0.6 Abs Basophils 0.1 10^3/uL N 0-0.2 Abs Nucleated RBC 0 10^3/uL Granulocyte % 65.6 % Lymphocyte % 27.2 % Monocyte % 4.9 % Eosinophil % 1.7 % Basophil % 0.6 % Nucleated Red Blood Cells % 0 Urinalysis Profile 07/10/2018 [facility] Urine Color Yellow [address] [place] [address] [phone] Urine Appearance Cloudy Urine Specific [place] 1.017 N 1.010-1.030 Urine pH 5.0 N 5-9 Urine Urobilinogen Negative Negative Urine Ketones Negative Negative Urine Protein Negative Negative Urine Leukocytes Trace Abnormal Negative Urine Blood Negative Negative Urine Nitrite Negative Negative Urine Bilirubin Negative Negative Urine Glucose Negative Negative Urine White Blood Cell 1+(6-10/hpf) Abnormal Absent Urine Red Blood Cell 1+(3-5/hpf) Abnormal Absent Urine Bacteria 1+ Abnormal Absent Urine Squamous Epithelial Cell Present Abnormal Absent Comp Metabolic Panel 07/10/2018 [facility] Sodium 136 mmol/L N 135-[address] [place] [address] [phone] Potassium 4.6 mmol/L N 3.5-5.0 Chloride 102 mmol/L N 101-111 Co2 Carbon Dioxide 28 mmol/L N 22-32 Anion Gap 6 mmol/L N 2-11 Glucose 216 mg/dL High 70-100 Blood Urea Nitrogen 31 mg/dL High 6-24 Creatinine 1.06 mg/dL High 0.51-0.95 BUN/Creatinine Ratio 29.2 High 8-20 Calcium 9.3 mg/dL N 8.6-10.3 Total Protein 6.7 g/dL N 6.4-8.9 Albumin 3.7 g/dL N 3.2-5.2 Globulin 3.0 g/dL N 2-4 Albumin/Globulin Ratio 1.2 N 1-3 Total Bilirubin 0.20 mg/dL N 0.2-1.0 Alkaline Phosphatase 123 U/L High 34-104 Alt 36 U/L N 7-52 Ast 38 U/L N 13-39 Egfr Non- 54.4 >60 Egfr 65.9 >60 1 Laboratory test 07/10/2018 [facility] Acetaminophen < 15 g/mL [address] [place] [address] [phone] Alcohol < 10 mg/dL N <10 Salicylate < 2.50 mg/dL <30 TSH (Thyroid Stim Horm) 9.45 mcIU/mL High 0.34-5.60 Urine Drug 07/10/2018 [facility] Amphetamine Ur None Detected None Detect SCR ED & [address] [place] [address] [phone] Barbiturates Urine Screen None Detected None Detect Benzodiazepine Urine Screen None Detected None Detect Urine Cannabinoids Screen None Detected None Detect Urine Cocaine Screen None Detected None Detect Urine Opiates Screen None Detected None Detect Urine Phencyclidine Screen None Detected None Detect 3 Urine Culture And 07/10/2018 [facility] Urine Culture SEE RESULT [address] [place] [address] [phone] Laboratory test 06/26/2018 [facility] Point of Care 98 mg/dL N 70-[address] [place] [address] [phone] Urinalysis Profile 06/26/2018 [facility] Urine Color Straw [address] [place] [address] [phone] Urine Appearance Clear Urine Specific [place] 1.005 Low 1.010-1.030 Urine pH 6.0 N 5-9 Urine Urobilinogen Negative Negative Urine Ketones Negative Negative Urine Protein Negative Negative Urine Leukocytes Negative Negative Urine Blood Negative Negative Urine Nitrite Negative Negative Urine Bilirubin Negative Negative Urine Glucose Negative Negative Laboratory test 06/26/2018 [facility] Acetaminophen < 15 g/mL [address] [place] [address] [phone] Alcohol < 10 mg/dL N <10 Salicylate < 2.50 mg/dL <30 Lactic Acid 0.9 mmol/L N 0.5-2.0 7 Comp Metabolic Panel 06/26/2018 [facility] Sodium 137 mmol/L N 135-145 [address] [place] [address] [phone] Potassium 4.3 mmol/L N 3.5-5.0 Chloride 105 [...] Egfr Non- 79.0 >60 Egfr 95.6 >60 8 CBC Auto 06/26/2018 [facility] White Blood 10.9 10^3/uL High 3.5-10.[address] [place] [address] [phone] Red Blood Count 4.42 10^6/uL N 4.00-5.40 [...] % Nucleated Red Blood Cells % 0 Urine Drug 06/26/2018 [facility] Amphetamine Ur None Detected None Detect SCR ED & [address] [place] [address] [phone] Barbiturates Urine Screen None Detected None Detect Benzodiazepine Urine Screen None Detected None Detect Urine Cannabinoids Screen None Detected None Detect Urine Cocaine Screen None Detected None Detect Urine Opiates Screen None Detected None Detect Urine Phencyclidine Screen None Detected None Detect 9 Laboratory test 06/26/2018 [facility] Point of 72 mg/dL N 70- 100 [address] [place] [address] [phone] Laboratory test 06/26/2018 [facility] Point of 143 mg/dL High 70-100 [address] [place] [place] [address] [phone] CBC Auto Diff 05/18/2018 [facility] White Blood 10.8 N 3.5- 10.[address] Count 10^3/[place] [address] [phone] Red Blood Count 4.33 10^6/uL N 4.00-5.40 [...] Cells % 0.1 Comp Metabolic Panel 05/18/2018 [facility] Sodium 139 mmol/L N 135-[address] [place] [address] [phone] Potassium 4.5 mmol/L N 3.5-5.0 Chloride 107 [...] Egfr Non- 81.5 >60 Egfr 98.6 >60 12 Laboratory test 05/18/2018 [facility] Lipase < 10 U/L Low 11.0 -82.[address] [place] [address] [phone] Lactic Acid 1.1 mmol/L N 0.5-2.0 13 Laboratory test 05/15/2018 [facility] C Difficile PCR SEE RESULT [address] [place] [address] [phone] Laboratory test 05/11/2018 [facility] Point of Care 426 mg/dL High 70-1 [address] Glucose 00 [place], [place] [id number] [phone] Laboratory test 05/11/2018 [facility] Point of Care 402 mg/dL High 70-1 [address] Glucose 00 [place], [place] [address] [phone] Laboratory test 05/11/2018 [facility] Glucose 342 mg/dL High 70-[address] Confirmatory 00 [place], [place] [id number] [phone] CBC Auto Diff 05/10/2018 [facility] White Blood Count 12.0 High 3.5- [address] 10^3/uL 10.8 [place], [place] [address] [phone] Red Blood Count 4.39 10^6/uL N 4.00-5.40 [...] Blood Cells % 0.1 Comp Metabolic Panel 05/10/2018 [facility] Sodium 141 mmol/L N 135-[address] [place] [address] [phone] Potassium 4.9 mmol/L N 3.5-5.0 Chloride 107 [...] Egfr Non- 74.5 >60 Egfr 90.2 >60 17 Laboratory test 05/10/2018 [facility] Lipase < 10 U/L Low 11.0 -82.[address] [place] [address] [phone] C Reactive Protein 6.43 mg/L N <8.01 Lactic Acid 1.2 mmol/L N 0.5-2.0 18 Urine Microalbumin 05/08/2018 [facility] Ur Microalbumin < 15.[address] (mg/L) [place] [address] [phone] Urine Creatinine 224.47 mg/dL Urine Microalbumin/Creatinine TNP <31 19 Laboratory test 05/08/2018 [facility] Hemoglobin A1c 9.7 High 5-7 finding Laboratory test 11/02/2017 [facility] Magnesium 1.9 mg/dL N 1.9-2.[address] [place] [address] [phone] Creatine Kinase(CK) 72 U/L N 10-223 Troponin-I (TnI) 0.03 ng/mL <0.04 Acetaminophen < 15 g/mL 20 Alcohol < 10 mg/dL N <10 Salicylate < 2.50 mg/dL <30 TSH (Thyroid Stim Horm) 1.79 mcIU/mL N 0.34-5.60 Comp Metabolic 11/02/2017 [facility] Potassium 4.4 mmol/L N 3.5-5.0 Panel [address] [place] [address] [phone] Chloride 107 mmol/L N 101-111 Co2 Carbon [...] Egfr Non- 70.5 >60 Egfr 90.7 >60 21 Sodium 142 mmol/L N 139-145 Anion Gap 5 mmol/L N 2-11 CBC Auto Diff 11/02/2017 [facility] White Blood 8.5 10^3/uL N 3.5-10.[address] [place] [address] [phone] Red Blood Count 4.40 10^6/uL N 4.0-5.4 [...] Blood Cells % 0 Laboratory test finding 11/02/2017 [facility] Ammonia 37 ?mol/L N 16-53 [facility] [place] [address] [phone] Lactic Acid 1.0 mmol/L N 0.5-2.0 22 Arterial Blood Gas 11/02/2017 [facility] PH Arterial 7.36 N 7.35-7.[address] [place] [address] [phone] Pco2 Arterial 50 mmHg High 35-45 Po2 Arterial 65 mmHg Low 80-100 O2 Saturation Arterial 91.1 % Low 95-98 Base Excess Arterial 2.1 High -2.0-2.0 23 Hco3 Arterial 26.4 mmol/L N 19-31 Urine Drug 11/02/2017 [facility] Amphetamine Ur None Detected None Detect SCR ED & [address] [place] [address] [phone] Barbiturates Urine Screen None Detected None Detect Benzodiazepine Urine Screen None Detected None Detect Urine Cannabinoids Screen None Detected None Detect Urine Cocaine Screen None Detected None Detect Urine Opiates Screen Presumptive Posi <SEE NOTE> Abnormal None Detect 24 Urine Phencyclidine Screen None Detected None Detect 25 Urinalysis Profile 11/02/2017 [facility] Urine Color Yellow [address] [place] [address] [phone] Urine Appearance Clear Urine Specific [place] 1.018 N 1.010-1.030 Urine pH 5.0 N 5-9 Urine Urobilinogen Negative Negative Urine Ketones Negative Negative Urine Protein Negative Negative Urine Leukocytes Negative Negative Urine Blood Negative Negative Urine Nitrite Negative Negative Urine Bilirubin Negative Negative Urine Glucose 1+(50 mg/dL) Abnormal Negative CBC Auto Diff 10/02/2017 [facility] White Blood 10.3 10^3/uL N 3.5-10.[address] [place] [address] [phone] Red Blood Count 4.29 10^6/uL N 4.0-5.4 [...] Cells % 0 Comp Metabolic Panel 10/02/2017 [facility] Sodium 136 mmol/L N 133-[address] [place] [address] [phone] Potassium 4.5 mmol/L N 3.5-5.0 Chloride 103 [...] Egfr Non- 70.5 >60 Egfr 90.7 >60 26 Laboratory test 10/02/2017 [facility] CRP High 3.53 mg/L [address] [place] [address] [phone] Laboratory test 09/28/2017 [facility] Hemoglobin A1c 9.1 High 5-7 finding Laboratory test 09/13/2017 [facility] Point of Care 179 mg/dL High 70-10 [address] Glucose 0 [place] [address] [phone] Laboratory test 09/13/2017 [facility] Point of Care 260 mg/dL High 70-10 [address] Glucose 0 [place] [address] [phone] Comp Metabolic 08/29/2017 [facility] Sodium 136 N 133-[address] mmol/L 45 [place] [address] [phone] Potassium 4.9 mmol/L N 3.5-5.0 Chloride 104 [...] Egfr Non- 47.4 >60 Egfr 60.9 >60 30 Laboratory test 08/29/2017 [facility] Lipase < 10 U/L Low 11.0 -82.[address] [place] [address] [phone] CRP High Sensitivity 1.79 mg/L 31 Troponin-I (TnI) 0.00 ng/mL <0.04 CBC Auto Diff 08/29/2017 [facility] White Blood 9.1 10^3/uL N 3.5-10.[address] [place] [address] [phone] Red Blood Count 4.06 10^6/uL N 4.0-5.4 [...] Blood Cells % 0 Laboratory test 08/29/2017 [facility] B-Type 21 pg/mL [address] [place] [address] Peptide BNP [phone] CBC Auto Diff 08/26/2017 [facility] White Blood Count 9.0 10^3/ uL N 3.5-[address]8 [place] [address] [phone] Red Blood Count 4.42 10^6/uL N 4.0-5.4 [...] Blood Cells % 0 Laboratory test 08/26/2017 [facility] Troponin-I (TnI) 0.01 ng/ mL <0.04 finding [address] [place] [address] [phone] Comp Metabolic 08/26/2017 [facility] Sodium 139 mmol/L N 133- 145 Panel [address] [place] [address] [phone] Potassium 5.0 mmol/L N 3.5-5.0 Chloride 105 [...] Egfr Non- 62.8 >60 Egfr 80.7 >60 33 Inr/Protime 08/26/2017 [facility] Inr 0.82 N 0.77-1.02 [address] [place] [address] [phone] Laboratory test 08/26/2017 [facility] Partial 27.7 N 26.0- 36.3 finding [address] [facility] [place] [address] Time PTT [phone] Laboratory test 08/25/2017 [facility] Point of 157 mg/dL High 70-100 [address] [place] [address] [place] [address] Glucose [phone] Urinalysis 08/25/2017 [facility] Urine Color Yellow Profile [address] [place] [address] [phone] Urine Appearance Clear Urine Specific [place] 1.010 N 1.010-1.030 Urine pH 5.0 N 5-9 Urine Urobilinogen Negative Negative Urine Ketones Negative Negative Urine Protein Negative Negative Urine Leukocytes Negative Negative Urine Blood Negative Negative Urine Nitrite Negative Negative Urine Bilirubin Negative Negative Urine Glucose 3+(>=500 mg/dL) Abnormal Negative Laboratory test 08/25/2017 [facility] Point of 289 mg/dL High 70-100 35 finding [address] [facility] [address] [phone] Venous Blood 08/25/2017 [facility] Venous Blood 7.48 High 7.33 -7.43 Gas [address] [facility] [address] [phone] Venous Pco2 31 mmHg Low 41-51 Venous Po2 98 mmHg High 35-45 Venous O2 Saturation 95.3 % High 70-80 Venous Blood Base Excess 0.1 N 0-4 36 Venous Bicarbonate Hco3 25.0 mmol/L N 24-28 CBC Auto Diff 08/25/2017 [facility] White Blood 8.9 10^3/uL N 3.5-10.[address] [place] [address] [phone] Red Blood Count 4.33 10^6/uL N 4.0-5.4 [...] Cells % 0 Comp Metabolic Panel 08/25/2017 [facility] Sodium 134 mmol/L N 133-[address] [place] [address] [phone] Potassium 4.8 mmol/L N 3.5-5.0 Chloride 101 [...] Egfr Non- 68.6 >60 Egfr 88.3 >60 37 Laboratory test 08/25/2017 [facility] C Reactive 3.27 mg/L N < 5.00 [address] [place] [address] [phone] Laboratory test 08/23/2017 [facility] Point of Care 224 mg/dL High 70-100 [address] [place] [address] [phone] Laboratory test 08/22/2017 [facility] Glucose 417 mg/dL High 70-[address] [place] [address] [phone] Laboratory test 08/22/2017 [facility] Point of Care > 444 mg/dL High 70-100 [address] [place] [address] [phone] Urinalysis 08/22/2017 [facility] Urine Color Yellow Profile [address] [place] [address] [phone] Urine Appearance Cloudy Urine Specific [place] 1.023 N 1.010-1.030 Urine pH 6.0 N [...] Present Abnormal Absent Urine Culture And 08/22/2017 [facility] Urine Culture SEE RESULT [address] [place] [address] [phone] CBC Auto Diff 08/22/2017 [facility] White Blood 8.9 10^3/uL N 3.5-[address] Count 0.8 [place] [address] [phone] Red Blood Count 4.19 10^6/uL N 4.0-5.4 [...] Cells % 0.1 Venous Blood Gas 08/22/2017 [facility] Venous Blood pH 7.42 N 7.33-7.43 [address] [place] [address] [phone] Venous Pco2 49 mmHg N 41-51 Venous Po2 36 mmHg N 35-45 Venous O2 Saturation 78.1 % N 70-80 Venous Blood Base Excess 6.3 High 0-4 42 Venous Bicarbonate Hco3 29.4 mmol/L High 24-28 Inr/Protime 08/22/2017 [facility] Inr 0.91 N 0.77-1.[address] [place] [address] [phone] Laboratory test 08/22/2017 [facility] Lactic Acid 1.3 N 0.5- 2.0 43 finding 101 mmol/[place] [address] [phone] Comp Metabolic 08/22/2017 [facility] Sodium 131 Low 133-[address] mmol/[place] [address] [phone] Potassium 4.6 mmol/L N 3.5-5.0 Chloride 98 [...] Egfr Non- 65.2 >60 Egfr 83.8 >60 44 Glucose 543 mg/dL High 70-100 45 Laboratory test 08/22/2017 [facility] Magnesium 2.0 mg/dL N 1.9-2.7 finding [address] [place] [address] [phone] Creatine Kinase(CK) 121 U/L N 10-223 C Reactive Protein 4.62 mg/L N < 5.00 46 Troponin-I (TnI) 0.01 ng/mL <0.04 Laboratory test 08/18/2017 [facility] Point of Care 180 mg/dL High 70-100 47 finding [address] [facility] [place] [address] [phone] Urinalysis 08/17/2017 [facility] Urine Color Yellow Profile [address] [place] [address] [phone] Urine Appearance Cloudy Urine Specific [place] 1.016 N 1.010-1.030 Urine pH 5.0 N 5-9 Urine Urobilinogen Negative Negative Urine Ketones Negative Negative Urine Protein Negative Negative Urine Leukocytes Negative Negative Urine Blood Negative Negative Urine Nitrite Negative Negative Urine Bilirubin Negative Negative Urine Glucose 3+(>=500 mg/dL) Abnormal Negative Urine Drug 08/17/2017 [facility] Amphetamine Ur None Detected None Detect SCR ED & [address] [place] [address] [phone] Barbiturates Urine Screen None Detected None Detect Benzodiazepine Urine Screen None Detected None Detect Urine Cannabinoids Screen None Detected None Detect Urine Cocaine Screen None Detected None Detect Urine Opiates Screen None Detected None Detect Urine Phencyclidine Screen None Detected None Detect 48 Laboratory test 08/17/2017 [facility] Point of 276 mg/dL High 70-100 [address] [place] [address] [phone] Laboratory test 08/17/2017 [facility] Point of > 444 High 70- 100 [address] Care Glucose mg/[place] [address] [phone] Venous Blood 08/17/2017 [facility] Venous Blood 7.36 N 7.33- 7.[address] [place] [address] [phone] Venous Pco2 48 mmHg N 41-51 Venous Po2 29 mmHg Low 35-45 Venous O2 Saturation 59.9 % Low 70-80 Venous Blood Base Excess 1.1 N 0-4 51 Venous Bicarbonate Hco3 24.9 mmol/L N 24-28 CBC Auto Diff 08/17/2017 [facility] White Blood 10.8 10^3/uL N 3.5-10.[address] [place] [address] [phone] Red Blood Count 4.74 10^6/uL N 4.0-5.4 [...] Cells % 0 Comp Metabolic Panel 08/17/2017 [facility] Sodium 133 mmol/L N 133-145 [address] [place] [address] [phone] Potassium 4.9 mmol/L N 3.5-5.0 Chloride 101 [...] Egfr Non- 72.5 >60 Egfr 93.2 >60 52 Glucose 543 mg/dL High 70-100 53 Laboratory test 08/17/2017 [facility] Acetaminophen < 15 g/mL 54 finding [address] [place] [address] [phone] Alcohol < 10 mg/dL N <10 Salicylate < 2.50 mg/dL <30 TSH (Thyroid Stim Horm) 2.76 mcIU/mL N 0.34-5.60 Lamotrigine (Lamictal) 4.2 g/mL 2.5 - 15.0 55 Laboratory test 08/17/2017 [facility] Point of > 444 mg/dL High 70-100 56 finding 101 [facility] [place] [address] [phone] Laboratory test 08/09/2017 [facility] Point of 266 mg/dL High 70-100 57 finding [address] [facility] [place] [address] [phone] Urinalysis 08/08/2017 [facility] Urine Color Yellow Profile [address] [place] [address] [phone] Urine Appearance Cloudy Urine Specific [place] 1.022 N 1.010-1.030 Urine pH 6.0 N 5-9 Urine Urobilinogen Negative Negative Urine Ketones Negative Negative Urine Protein Negative Negative Urine Leukocytes Negative Negative Urine Blood Negative Negative Urine Nitrite Negative Negative Urine Bilirubin Negative Negative Urine Glucose 3+(>=500 mg/dL) Abnormal Negative Urine Drug 08/08/2017 [facility] Amphetamine Ur None Detected None Detect SCR ED & [address] [place] [address] [phone] Barbiturates Urine Screen None Detected None Detect Benzodiazepine Urine Screen None Detected None Detect Urine Cannabinoids Screen None Detected None Detect Urine Cocaine Screen None Detected None Detect Urine Opiates Screen None Detected None Detect Urine Phencyclidine Screen None Detected None Detect 58 CBC Auto 08/08/2017 [facility] White Blood 11.9 10^3/uL High 3.5-10.[address] [place] [address] [phone] Red Blood Count 4.78 10^6/uL N 4.0-5.4 [...] Cells % 0 Comp Metabolic Panel 08/08/2017 [facility] Sodium 136 mmol/L N 133-145 [address] [place] [address] [phone] Potassium 4.3 mmol/L N 3.5-5.0 Chloride 100 [...] Egfr Non- 74.5 >60 Egfr 95.9 >60 59 Laboratory test 08/08/2017 [facility] Acetaminophen < 15 g/mL 60 finding [address] [place] [address] [phone] Alcohol < 10 mg/dL N <10 Salicylate < 2.50 mg/dL <30 TSH (Thyroid Stim Horm) 2.67 mcIU/mL N 0.34-5.60 Lamotrigine (Lamictal) 2.5 g/mL 2.5 - 15.0 61 Laboratory test 08/04/2017 [facility] Point of Care 258 mg/dL High 70-100 [address] [place] [address] [phone] Laboratory test 08/04/2017 [facility] Point of Care 175 mg/dL High 70-[address] [place] [address] [phone] Laboratory test 08/04/2017 [facility] Point of Care 284 mg/dL High 70-100 [address] [place] [address] [phone] Urinalysis 08/03/2017 [facility] Urine Color Yellow Profile [address] [place] [address] [phone] Urine Appearance Cloudy Urine Specific [place] 1.012 N 1.010-1.030 Urine pH 5.0 N [...] Crystals Present Abnormal Absent Urine Drug 08/03/2017 [facility] Amphetamine Ur None Detected None Detect SCR ED & [address] [place] [address] [phone] Barbiturates Urine Screen None Detected None Detect Benzodiazepine Urine Screen None Detected None Detect Urine Cannabinoids Screen None Detected None Detect Urine Cocaine Screen None Detected None Detect Urine Opiates Screen None Detected None Detect Urine Phencyclidine Screen None Detected None Detect 65 Urine Culture And 08/03/2017 [facility] Urine SEE RESULT [address] [place] [address] [phone] CBC Auto Diff 08/03/2017 [facility] White Blood 10.9 High 3.5- [address] Count 10^3/uL 0.8 [place] [address] [phone] Red Blood Count 4.61 10^6/uL N 4.0-5.4 [...] Cells % 0 Comp Metabolic Panel 08/03/2017 [facility] Sodium 132 mmol/L Low 133-[address] [place] [address] [phone] Potassium 4.6 mmol/L N 3.5-5.0 Chloride 98 [...] Egfr Non- 67.7 >60 Egfr 87.1 >60 67 Laboratory test 08/03/2017 [facility] Acetaminophen < 15 g/mL [address] [place] [address] [phone] Alcohol < 10 mg/dL N <10 Salicylate < 2.50 mg/dL <30 TSH (Thyroid Stim Horm) 0.60 mcIU/mL N 0.34-5.60 Laboratory test 08/02/2017 [facility] Troponin-I 0.01 <0.[address] (TnI) ng/[place] [address] [phone] CBC Auto Diff 08/02/2017 [facility] White Blood 13.8 High 3.5- 10.[address] Count 10^3/[place] [address] [phone] Red Blood Count 4.64 10^6/uL N 4.0-5.4 [...] Cells % 0 Comp Metabolic Panel 08/02/2017 [facility] Sodium 133 mmol/L N 133-[address] [place] [address] [phone] Potassium 4.7 mmol/L N 3.5-5.0 Chloride 101 [...] Egfr Non- 76.7 >60 Egfr 98.7 >60 69 Laboratory test 08/02/2017 [facility] Troponin-I 0.03 <0.[address] (TnI) ng/[place] [address] [phone] Urine Culture And 08/01/2017 [facility] Urine Culture SEE 70, Sensitivities [address] RESULT 71 [place] [address] BELOW [phone] Laboratory test 06/13/2017 [facility] Hemoglobin 9.2 High 5-7 finding A1c Laboratory test 06/03/2017 [facility] Point of Care 184 mg/dL High 70-100 [address] Glucose [place], [place] [address] [phone] Laboratory test 06/03/2017 [facility] Point of Care 256 mg/dL High 70-100 [address] Glucose [place], [place] [address]73 [phone] Laboratory test 06/03/2017 [facility] Point of Care 329 mg/dL High 70-100 [address] Gl[place], [place] [address] [phone] Laboratory test 06/03/2017 [facility] Point of Care 384 mg/dL High 70-100 [address] [place] [address] [phone] Laboratory test 06/03/2017 [facility] Point of Care > 444 High 70-100 [address] Glucose mg/[place] [address] [phone] Laboratory test 06/03/2017 [facility] Point of Care > 444 High 70-100 [address] Glucose mg/dL [place], [place] [address] [phone] 1 Because ethnic data is not always [...] 5 Kidney failure <15 (or dialysis) 2 Therapeutic concentration: <50 ug/mL Toxic concentration: >120 ug/mL 3 The urine specimen was tested at the listed cutoffs: Drug class test level (ng/mL) Amphetamines 500 Barbiturates 200 Benzodiazepine metabolites 200 Cocaine metabolites 150 Cannabinoids 50 Opiates 300 Pcp 25 Specimen was received without chain of custody. Results should be used for medical purposes only. 4 SEE RESULT BELOW Name: CECILIO ALFARO Cameron : [address]: Sendy Mcdowell MD Acct: [id number] Unit: [id number] AGE: 53 Location: ED Re07/10/18 SEX: F Status: DEP ER SPEC: [id number] ANKUR: 07/10/[address]: Sendy Mcdowell MD REQ: [id number] RECD: 07/10/18 STATUS: COMP [facility] DR: Chapo Aguila MD _ SOURCE: URINE SPDESC: ORDERED: Urine Culture Procedure Result Reported Site Urine Culture Final 07/12/18- 0845 ML No growth of clinically significant organisms * ML - Main Lab . END OF REPORT DEPARTMENT OF PATHOLOGY, [address] [place] [address] Tay Gamboa M.D. Director [facility] # [id number] 5 Naturalist: [id number] 6 Therapeutic concentration: <50 ug/mL Toxic concentration: >120 ug/mL 7 [facility] Severe Sepsis and Septic Shock Management Bundle Measure requires all lactic acids initially measuring >2.0 mmol/L be repeated. 8 Because ethnic data is not always [...] 5 Kidney failure <15 (or dialysis) 9 The urine specimen was tested at the listed cutoffs: Drug class test level (ng/mL) Amphetamines 500 Barbiturates 200 Benzodiazepine metabolites 200 Cocaine metabolites 150 Cannabinoids 50 Opiates 300 Pcp 25 Specimen was received without chain of custody. Results should be used for medical purposes only. 10 Naturalist: [id number] Naturalist: [id number] 12 Because ethnic data is not always [...] 5 Kidney failure <15 (or dialysis) 13 [facility] Severe Sepsis and Septic Shock Management Bundle Measure requires all lactic acids initially measuring >2.0 mmol/L be repeated. 14 SEE RESULT BELOW Name: CECILIO ALFARO : [address]: Danya Marquez MD Acct: [id number] Unit: [id number] AGE: 52 Location: [facility] Re05/15/18 SEX: F Status: REG REF SPEC: [id number] ANKUR: 05/15/18-[address] [facility] [address]: Danya Marquez MD REQ: [id number] RECD: 05/15/18 STATUS: COMP _ SOURCE: STOOL SPDESC: ORDERED: C. diff PCR Procedure Result Reported Site Stool Specimen Description Final 05/15/18- 1306 ML Stool Color [place] Stool Form Semi-formed Stool Consistency Firm C. difficile PCR Final 05/15/18- 1306 ML Test not performed * ML - Main Lab . END OF REPORT DEPARTMENT OF PATHOLOGY, [address] [place] [address] Tay Gamboa M.D. Director [facility] # [id number] 15 Naturalist: [id number] Naturalist: [id number] 17 Because ethnic data is not always readily [...] 15-29 5 Kidney failure <15 (or dialysis) 18 [facility] Severe Sepsis and Septic Shock Management Bundle Measure requires all lactic acids initially measuring >2.0 mmol/L be repeated. 19 Unable to calculate due to low microalbumin 20 Therapeutic concentration: <50 ug/mL Toxic concentration: >120 ug/mL 21 Because ethnic data is not always readily [...] 15-29 5 Kidney failure <15 (or dialysis) 22 [facility] Severe Sepsis and Septic Shock Management Bundle Measure requires all lactic acids initially measuring >2.0 mmol/L be repeated. 23 Reference ranges based on room air. 24 Presumptive Positive Presumptive positive results are unconfirmed. 25 The urine specimen was tested at the listed cutoffs: Drug class test level (ng/mL) Amphetamines 500 Barbiturates 200 Benzodiazepine metabolites 200 Cocaine metabolites 150 Cannabinoids 50 Opiates 300 Pcp 25 Specimen was received without chain of custody. Results should be used for medical purposes only. 26 Because ethnic data is not always [...] Average risk: 1.00-3.00 High risk: >3.00 28 Naturalist: [id number] Naturalist: [id number] 30 Because ethnic data is not always [...] 5 Kidney failure <15 (or dialysis) 31 Low risk: <1.00 Average risk: 1.00-3.00 High risk: >3.00 32 >100 to <200 pg/mL: likely compensated congestive heart failure (CHF) 200 to 400 pg/mL: likely moderate CHF >400 pg/mL: likely moderate to severe CHF 33 Because ethnic data is not always [...] 5 Kidney failure <15 (or dialysis) 34 Naturalist: [id number] Naturalist: [id number] 36 Reference ranges based on room air. 37 Because ethnic data is not always readily [...] 15-29 5 Kidney failure <15 (or dialysis) 38 Acute inflammation: >10.00 39 Naturalist: [id number] 40 Naturalist: [id number] 41 SEE RESULT BELOW Name: CECILIO ALFARO : [address]: Violeta Yusuf MD Acct: [id number] Unit: [id number] AGE: 52 Location: ED Re08/22/17 SEX: F Status: DEP ER SPEC: [id number] ANKUR: 08/22/[address]: Violeta Yusuf MD REQ: [id number] RECD: 08/22/17 STATUS: [facility] DR: Chapo Aguila MD _ SOURCE: URINE SPDESC: ORDERED: Urine Culture Procedure Result Reported Site Urine Culture Final 08/23/17- 1607 ML Mixed seema; possible contamination. Suggest resubmission. * ML - MAIN LAB ([facility]) . END OF REPORT * ML=Testing performed at Main Lab DEPARTMENT OF PATHOLOGY, [address] [place] [address] Tay Gamboa M.D. Director [facility] # [id number] 42 Reference ranges based on room air. 43 [facility] Severe Sepsis and Septic Shock Management Bundle Measure requires all lactic acids initially measuring >2.0 mmol/L be repeated. 44 Because ethnic data is not always [...] 5 Kidney failure <15 (or dialysis) 45 Critical Result [id number] Called to JIMENA at: 21:48:40 by:[email or web address] Read back by:[email or web address] 46 Acute inflammation: >10.00 47 Naturalist: [id number] 48 The urine specimen was tested at the listed cutoffs: Drug class test level (ng/mL) Amphetamines 500 Barbiturates 200 Benzodiazepine metabolites 200 Cocaine metabolites 150 Cannabinoids 50 Opiates 300 Pcp 25 Specimen was received without chain of custody. Results should be used for medical purposes only. 49 Naturalist: [id number] 50 Naturalist: [id number] 51 Reference ranges based on room air. 52 Because ethnic data is not always readily [...] 15-29 5 Kidney failure <15 (or dialysis) 53 Critical Result [id number] Called to [id number] at: 18:00:03 by:[id number] Read back by:[id number] 54 Therapeutic concentration: <50 ug/mL Toxic concentration: >120 ug/mL 55 ADDITIONAL INFORMATION This test was developed and its performance characteristics determined by [facility] in a manner consistent with CLIA requirements. This test has not been cleared or approved by the U.S. Food and Drug Administration. Test Performed by: [facility] [address] [place] [address] 56 Naturalist: [id number] Naturalist: [id number] 58 The urine specimen was tested at the listed cutoffs: Drug class test level (ng/mL) Amphetamines 500 Barbiturates 200 Benzodiazepine metabolites 200 Cocaine metabolites 150 Cannabinoids 50 Opiates 300 Pcp 25 Specimen was received without chain of custody. Results should be used for medical purposes only. 59 Because ethnic data is not always readily [...] 15-29 5 Kidney failure <15 (or dialysis) 60 Therapeutic concentration: <50 ug/mL Toxic concentration: >120 ug/mL 61 ADDITIONAL INFORMATION This test was developed and its performance characteristics determined by [facility] in a manner consistent with CLIA requirements. This test has not been cleared or approved by the U.S. Food and Drug Administration. Test Performed by: [facility] [address] [place] [address] 62 Naturalist: [id number] Naturalist: [id number] 64 Naturalist: [id number] 65 The urine specimen was tested at the listed cutoffs: Drug class test level (ng/mL) Amphetamines 500 Barbiturates 200 Benzodiazepine metabolites 200 Cocaine metabolites 150 Cannabinoids 50 Opiates 300 Pcp 25 Specimen was received without chain of custody. Results should be used for medical purposes only. 66 SEE RESULT BELOW Name: CECILIO ALFARO : [address]: Sendy Mcdowell MD Acct: [id number] Unit: [id number] AGE: 52 Location: ED Re08/03/17 SEX: F Status: REG ER SPEC: [id number] ANKUR: 08/03/[address] [facility] [address]: Sendy Mcdowell MD REQ: [id number] RECD: 08/03/17 STATUS: COMP [facility] DR: Chapo Aguila MD _ SOURCE: URINE SPDESC: ORDERED: Urine Culture Procedure Result Reported Site Urine Culture Final 08/05/17- 1225 ML No growth of clinically significant organisms * ML - MAIN LAB ([facility]) . END OF REPORT * ML=Testing performed at Main Lab DEPARTMENT OF PATHOLOGY, [address] [place] [address] Tay Gamboa M.D. Director [facility] # [id number] 67 Because ethnic data is not always readily [...] 15-29 5 Kidney failure <15 (or dialysis) 68 Therapeutic concentration: <50 ug/mL Toxic concentration: >120 ug/mL 69 Because ethnic data is not always readily [...] 15-29 5 Kidney failure <15 (or dialysis) 70 [id number] 71 SEE RESULT BELOW Name: CECILIO ALFARO : [address]: Any Ramirez MD Acct: [id number] Unit: [id number] AGE: 52 Location: [facility] Re08/01/17 SEX: F Status: DEP ER SPEC: [id number] ANKUR: 08/01/17-[address]: Any Ramirez MD REQ: [id number] RECD: 08/02/17-5 STATUS: COMP [facility] DR: Chapo Aguila MD _ SOURCE: URINE SPDESC: ORDERED: Urine Culture COMMENTS: [id number] Procedure Result Reported Site Urine Culture Final 08/03/17- 1251 ML Mixed seema; possible contamination. Suggest resubmission. * ML - MAIN LAB ([facility]) . END OF REPORT * ML=Testing performed at Main Lab DEPARTMENT OF PATHOLOGY, [address] [place] [address] Tay Gamboa M.D. Director [facility] # [id number] 72 Naturalist: [id number] Naturalist: [id number] Naturalist: [id number] Naturalist: [id number] Naturalist: [id number] Naturalist: [id number] Procedures Date Code Description Status 11/03/2017 89614 EKG, Interpretation Only Completed 10/26/2017 700260098 Diabetic Retinal Eye Exam Completed 10/11/2017 09377 Inject/Drain Joint/Bursa Major W/O US Completed 06/03/2017 42322 Carpal Tunnel Release Completed 06/03/2017 65491 Carpal Tunnel Release Completed 05/01/2016 62694090 Mammogram Completed 04/06/2016 49805 EEG Recording Awake & Drowsy Completed 04/03/2016 98542 EKG, Interpretation Only Completed 04/29/2015 39001 EEG Recording Awake & Drowsy Completed 04/16/2012 29489 EKG, Interpretation Only Completed 04/16/2012 16310 EKG, Interpretation Only Completed Encounters Type Date Location Provider Dx Diagnosis Office Visit 07/03/2018 [facility] Rosa Schroeder MD E11.65 Type 2 diabetes 10:00a Medicine - [place] mellitus with Rd hyperglycemia I10 Essential (primary) hypertension X78.8xxA Intentional self-harm by other sharp object, init encntr F17.210 Nicotine dependence, cigarettes, uncomplicated R15.1 Fecal smearing M65.842 Other synovitis and tenosynovitis, left hand M54.41 Lumbago with sciatica, right side E03.9 Hypothyroidism, unspecified Office Visit 06/28/2018 Orthopedic Marline M65.841 Other synovitis and 1:15p Services Of Adelina Duarte C.M.A. right hand M54.41 Lumbago with sciatica, right side Office Visit 05/22/2018 2:30p [facility] Internal Rosa Schroeder, R19.7 Diarrhea, Medicine - [place] MD unspecified Rd L08.1 Erythrasma R15.1 Fecal smearing Office Visit 05/15/2018 1:30p [facility] Internal Rosa Schroeder, R19.7 Diarrhea, Medicine - [place] MD unspecified Rd F17.210 Nicotine dependence, cigarettes, uncomplicated J45.909 Unspecified asthma, uncomplicated E11.65 Type 2 diabetes mellitus with hyperglycemia Z91.81 History of falling E11.9 Type 2 diabetes mellitus without complications Office Visit 05/08/2018 9:30a [facility] Internal Rosa Schroeder, E11.65 Type 2 diabetes Medicine - MD mellitus with [place] [address] hyperglycemia R15.1 Fecal smearing I10 Essential (primary) hypertension R94.5 Abnormal results of liver function studies F33.3 Major depressv disorder, recurrent, severe w psych symptoms [facility] G92 Toxic encephalopathy 11:25a Assocmatthieu M.D. Hospitalists T50.904A Poisoning by unsp drug/meds/biol subst, undetermined, init F60.3 Borderline personality disorder R40.2432 Kriss coma scale score 3-8, EMR Office Visit 11/03/2017 11:23a Intens[facility]ists Ishmael Dumont G92 Toxic encephalopathy Cheng, D.O. F60.3 Borderline personality disorder T50.904A Poisoning by unsp drug/meds/biol subst, undetermined, init R40.2432 [place] coma scale score 3-8, EMR Office Visit 11/02/2017 11:22a [facility] Ishmael Dumont R40.2432 Kriss coma Cheng, D.O. scale score 3-8, EMR G92 Toxic encephalopathy T50.904A Poisoning by unsp drug/meds/biol subst, undetermined, init F60.3 Borderline personality disorder Office Visit 10/18/2017 Orthopedic Naveed Lutz M75.31 Calcific tendinitis 9:00a Services Of MD Venecia of right shoulder C.M.A. Office Visit 10/13/2017 [facility] Internal [place] E11.65 Type 2 diabetes 1:40p [facility] - [place], mellitus with Rd M.D. hyperglycemia Z12.31 Encntr screen mammogram for malignant neoplasm of breast Z12.11 Encounter for screening for malignant neoplasm of colon Office Visit 10/11/2017 Orthopedic Naveed Lutz M75.31 Calcific tendinitis 1:30p Services Of MD Venecia of right shoulder C.M.A. Office Visit 09/28/2017 [facility] Internal [place] E11.65 Type 2 diabetes 1:20p Medicine Elliott Aguila, mellitus with [place] M.DJarred hyperglycemia M79.645 Pain in left finger(s) E03.9 Hypothyroidism, unspecified Office Visit 09/19/2017 [facility] Internal [place] E11.65 Type 2 diabetes 2:40p Jaylene Aguila M.D. mellitus with [place] [address] hyperglycemia M54.5 Low back pain Office Visit 08/17/2017 2:10p [facility] Internal Lachelle F33.3 Major depressv Medicine - LUZ Berrios disorder, [place] [address] recurrent, severe w psych symptoms R45.851 Suicidal ideations Office Visit 08/11/2017 1:20p [facility] Internal [place] Aguila, F31.31 Bipolar Medicine - JuliaDJarred disorder, [place] [address] current episode depressed, mild M51.16 Intervertebral disc disorders w radiculopathy, lumbar region K63.5 Polyp of colon K21.9 Gastro-esophageal reflux disease without esophagitis Office Visit 07/15/2017 11:00a [facility] Jun Cowan E11.9 Type 2 diabetes Jaylene Aguila M.D. mellitus without [address] complications M51.16 Intervertebral disc disorders w radiculopathy, lumbar region F31.31 Bipolar disorder, current episode depressed, mild E66.01 Morbid (severe) obesity due to excess calories Z68.41 Body mass index (BMI) 40.0-44.9, adult Office Visit 06/13/2017 3:20p [facility] Internal [place] E11.9 Type 2 diabetes Jaylene [...] dependence, cigarettes, uncomplicated B37.9 Candidiasis, unspecified Z79.4 MCC (current) use of insulin Office Visit 05/26/2017 Orthopedic Marline G56.02 Carpal tunnel 8:45a Services Of Hilda Duarte M.D. syndrome, left upper limb Office Visit 05/11/2017 Surgical Senia Lorne R10.9 Unspecified 10:45a [facility] MD abdominal pain Office Visit 06/14/2016 [facility] Rosi L02.91 Cutaneous 1:40p Assoc,pc Juanita, SOLAR DEVELOPMENT ENGINEER abscess, Hospitalists unspecified E11.9 Type 2 diabetes mellitus without complications Z79.4 long term care pharmacist (current) use of insulin Office Visit 06/13/2016 1:39p [facility] Alexus Elliott L02.91 Cutaneous Assoc,pc NJarredPJarred abscess, Hospitalists unspecified E11.9 Type 2 diabetes mellitus without complications Z79.4 MCC (current) use of insulin Office Visit 05/21/2016 [facility] T39.1x2A Poisoning by 3:25p Assoc,matthieu Lui M.D. 4-Aminophenol Hospitalists derivatives, self-harm, init E11.9 Type 2 diabetes mellitus without complications F79 Unspecified intellectual disabilities Office Visit 05/20/2016 [facility] T39.1x2A Poisoning by 3:24p Assoc,matthieu Lui M.D. 4-Aminophenol Hospitalists derivatives, self-harm, init E11.9 Type 2 diabetes mellitus without complications F79 Unspecified intellectual disabilities Office Visit 05/19/2016 [facility] T39.1x2A Poisoning by 3:24p Assoc,matthieu Lui M.D. 4-Aminophenol Hospitalists derivatives, self-harm, init E11.9 Type 2 diabetes mellitus without complications F79 Unspecified intellectual disabilities Office Visit 05/18/2016 [facility] T39.1x2A Poisoning by 3:23p Assoc,matthieu Lui M.D. 4-Aminophenol Hospitalists derivatives, self-harm, init E11.9 Type 2 diabetes mellitus without complications F79 Unspecified intellectual disabilities Office Visit 05/17/2016 [facility] T39.1x2A Poisoning by 3:23p Assoc,matthieu Mosquera M.D. 4-Aminophenol Hospitalists derivatives, self-harm, init E11.9 Type 2 diabetes mellitus without complications F79 Unspecified intellectual disabilities Office Visit 05/16/2016 [facility] Ml T39.1x2A Poisoning by 3:22p Assoc,matthieu Moqsuera M.D. 4-Aminophenol Hospitalists derivatives, self-harm, init E11.9 Type 2 diabetes mellitus without complications F79 Unspecified intellectual disabilities Office Visit 05/15/2016 [facility] Ml T39.1x2A Poisoning by 3:22p Assoc,matthieu Mosquera M.D. 4-Aminophenol Hospitalists derivatives, self-harm, init E11.9 Type 2 diabetes mellitus without complications F79 Unspecified intellectual disabilities Office Visit 05/14/2016 [facility] Yara T39.1x2A Poisoning by 3:22p Assoc,matthieu Daly DGelacio. 4-Aminophenol Hospitalists derivatives, self-harm, init E11.9 Type 2 diabetes mellitus without complications F79 Unspecified intellectual disabilities Office Visit 05/13/2016 [facility] Yara T39.1x2A Poisoning by 3:21p Assoc,matthieu Daly D.Jolene. 4-Aminophenol Hospitalists derivatives, self-harm, init E11.9 Type 2 diabetes mellitus without complications F79 Unspecified intellectual disabilities Office Visit 05/12/2016 [facility] Yara T39.1x2A Poisoning by 3:21p Assoc,matthieu Daly D.O. 4-Aminophenol Hospitalists derivatives, self-harm, init E11.9 Type 2 diabetes mellitus without complications F79 Unspecified intellectual disabilities Office 05/11/2016 [facility] Benjamin T39.1x2A Poisoning by Visit 3:20p Assoc,pc RAÚL Snell 4-Aminophenol Hospitalists derivatives, self-harm, init E11.9 Type 2 diabetes mellitus without complications F79 Unspecified intellectual disabilities Office Visit 05/03/2016 [facility] Anu R73.9 Hyperglycemia, 11:09a Assoc,pc Joe, DO unspecified Hospitalists J40 Bronchitis, not specified as acute or chronic G89.4 Chronic pain syndrome Office Visit 04/07/2016 3:52p [facility] Ml R40.4 Transient Assoc,matthieu Mosquera M.D. alteration of Hospitalists awareness E13.9 Other specified diabetes mellitus without complications F79 Unspecified intellectual disabilities Z91.19 Patient's noncompliance w oth medical treatment and regimen Office Visit 04/06/2016 3:52p [facility] Ml R40.4 Transient Assoc,matthieu Mosquera M.D. alteration of Hospitalists awareness E13.9 Other specified diabetes mellitus without complications F79 Unspecified intellectual disabilities Z91.19 Patient's noncompliance w oth medical treatment and regimen Office Visit 04/05/2016 3:51p [facility] Yara R40.4 Transient Assoc,pc Addy, D.O. alteration of Hospitalists awareness E13.9 Other specified diabetes mellitus without complications F79 Unspecified intellectual disabilities Z91.19 Patient's noncompliance w oth medical treatment and regimen Office Visit 04/04/2016 3:51p [facility] Yara R40.4 Transient Assoc,pc Adyd, D.O. alteration of Hospitalists awareness E13.9 Other specified diabetes mellitus without complications F79 Unspecified intellectual disabilities Z91.19 Patient's noncompliance w oth medical treatment and regimen Office Visit 04/03/2016 3:50p [facility] Rosi R40.4 Transient Assoc,matthieu Grant, LUZ alteration of Hospitalists awareness E13.9 Other specified diabetes mellitus without complications F79 Unspecified intellectual disabilities Z91.19 Patient's noncompliance w oth medical treatment and regimen Office Visit 10/01/2015 10:08a [facility] Gray M54.31 Sciatica, right Assoc,matthieu Conn, N.P. side Hospitalists E11.9 Type 2 diabetes mellitus without complications F60.3 Borderline personality disorder Office Visit 09/28/2015 10:06a [facility] Ml M54.31 Sciatica, right Assoc,matthieu Mosquera M.D. side Hospitalists E11.9 Type 2 diabetes mellitus without complications Office Visit 04/24/2015 [facility] Conner 276.1 Hyposmolality & Or 1:31p Assmatthieu drake M.D. Hyponatremia Hospitalists 296.7 Bipolar I Disorder Current NOS 301.83 Borderline Personality Disorder Office Visit 04/23/2015 [facility] Conner 276.1 Hyposmolality & Or 1:30p Assocmatthieu Powers M.D. Hyponatremia Hospitalists 250.00 Diabetes Mellitus W/O Compl Type II Or Unspec Controlled 296.7 Bipolar I Disorder Current NOS 301.83 Borderline Personality Disorder Office Visit 04/22/2015 [facility] Quique 276.1 Hyposmolality & Or 1:29p Assoc,matthieu Aden M.D. Hyponatremia Hospitalists 250.00 Diabetes Mellitus W/O Compl Type II Or Unspec Controlled 301.83 Borderline Personality Disorder Office Visit 04/21/2015 [facility] Gray 276.1 Hyposmolality & Or 1:28p Assoc,pc Fabien N.PJarred Hyponatremia Hospitalists 296.7 Bipolar I Disorder Current NOS 301.83 Borderline Personality Disorder 250.00 Diabetes Mellitus W/O Compl Type II Or Unspec Controlled Office Visit 11/27/2014 [facility] Sherita 244.9 Hypothyroidism 8:42a Assoc,matthieu Lui M.D. Other Unspec Hospitalists 250.02 Diabetes Mellitus W/O Compl Type II Or Unspec Type Uncontrol 301.83 Borderline Personality Disorder Office Visit 04/17/2012 [facility] 969.09 Poisoning By Other 4:07p Assoc,matthieu Daly D.O. Antidepressants Hospitalists 300.9 Nonpsychotic Disorders NOS 311 Depressive Disorder Not Elsewhere Spec Office 04/16/2012 [facility] 969.09 Poisoning By Other Visit 4:35p Assoc,matthieu Grajeda M.D. Antidepressants Hospitalists 300.9 Nonpsychotic Disorders NOS 311 Depressive Disorder Not Elsewhere Spec V11.1 History Personal Affective Disorder Office Visit 10/18/2009 1:00a [facility] Jase Jesus, 789.00 Pain Abdominal Assocmatthieu M.D. Unspec Site Hospitalists 787.03 Vomiting Alone 790.29 Other Abnormal Glucose 250.02 Diabetes Mellitus W/O Compl Type II Or Unspec Type Uncontrol Office Visit 10/17/2009 3:00a [facility] Jase Jesus, 790.29 Other Abnormal Assocmatthieu M.D. Glucose Hospitalists 789.00 Pain Abdominal Unspec Site 295.70 Schizoaffective Disorder NOS 401.9 Hypertension Unspec Office Visit 10/16/2009 12:15a [facility] Sherita 790.29 Other Abnormal Assoc,pc Marshall, M.D. Glucose Hospitalists 296.80 Bipolar Disorder NOS Plan of Treatment Future Appointment(s):10/17/2018 2:40 pm - Moreno Sandoval MD at [facility]10/02/2018 3:00 pm - Rosa Schroeder MD at [facility] Internal Medicine - [address]07/18/2018 - Moreno Sandoval MDE11.65 Type 2 diabetes mellitus with hyperglycemiaFollow up:3 months, lab order printed -- send patient to lab [id number] Hypothyroidism, [id number] Fecal urgency
[2018-07-20] MEDS ORDERED: NS 0.9% 1000 ML* 1,000 ML IV ONE (01:03)
--- NOTE | 2018-07-20 01:03 | ED ---
Complex/Multi-Sys Presentation - HPI Summary HPI Summary: A 53 y/o F presents to ED brought in by ambulance s/p eating one AAA TV remote battery approx. one hour ago. At bedside, she states she is not suicidal but is just frustrated, but she also says I cant live like this anymore. She has impulse behavior issues. Pt states shes been very, very, sick. She is scheduled for a colonoscopy on 07/21/18. She says shes had bowel problems for months. She ate lunch today which worsened her diarrhea. She says her bowel movements are very soft, not watery, and float. She also woke up with a cold today. Associated sx: weakness, dizziness, episodes of incontinence. PMHx: IBS. She says she had 20 BMs yesterday. - History Of Current Complaint Chief Complaint: EDForeignBodyEsophag Time Seen by Provider: 07/20/18 00:47 Hx Obtained From: Patient Onset/Duration: Still Present Timing: Constant Associated Signs And Symptoms: Positive: Dizziness, Weakness, Diarrhea - Allergies/Home Medications Allergies/Adverse Reactions: Allergies Allergy/AdvReac Type Severity Reaction Status Date / Time ciprofloxacin Allergy Dizziness Verified 06/26/18 22:46 latex Allergy Rash Verified 06/26/18 22:46 lithium Allergy See Comment Verified 06/26/18 22:46 nalbuphine Allergy Unknown Verified 06/26/18 22:46 Reaction Details naldemedine Allergy Unknown Verified 07/18/18 14:58 Reaction Details Penicillins Allergy Rash Verified 06/26/18 22:46 perphenazine Allergy Unknown Verified 06/26/18 22:46 Reaction Details Sulfa (Sulfonamide Allergy Hives Verified 06/26/18 22:46 Antibiotics) tramadol Allergy Altered Verified 06/26/18 22:46 Mental Status ENVIRONMENTAL Allergy Mild SINUS Uncoded 06/26/18 22:46 PMH/Surg Hx/FS Hx/Imm Hx Previously Healthy: No Endocrine/Hematology History: Reports: Hx Diabetes, Hx Thyroid Disease, Other Endocrine/Hematological Disorders - Chronic pancreatitis Denies: Hx Anticoagulant Therapy Cardiovascular History: Reports: Hx Hypertension - NO MEDICATION FOR PER PATIENT , Other Cardiovascular Problems/Disorders - HX OF PSVT 04/2008 Denies: Hx Pacemaker/ICD Respiratory History: Reports: Hx Asthma, Hx Seasonal Allergies, Hx Sleep Apnea - HX OF IN THE PAST Denies: Hx Chronic Bronchitis, Hx Chronic Obstructive Pulmonary Disease (COPD ), Hx Cystic Fibrosis, Hx Lung Cancer, Hx Pleural Effusion, Hx Pneumonia, Hx Pulmonary Edema, Hx Pulmonary Embolism, Other Respiratory Problems/Disorders GI History: Reports: Hx Gall Bladder Disease, Hx Gastroesophageal Reflux Disease - ON MEDICATION FOR, Hx Gastrointestinal Bleed, Hx Irritable Bowel, Other GI Disorders - HX OF pancreatitis- STATES LAST ABOUT 2 WEEKS AGO- STATES SLIGHT CASE Denies: Hx Ulcer History: Denies: Hx Dialysis, Hx Renal Disease Musculoskeletal History: Reports: Hx Arthritis, Hx Back Problems, Other Musculoskeletal History - GEN MUSCULOSKELETAL PAIN Denies: Hx Rheumatoid Arthritis, Hx Bursitis, Hx Congenital Bone Abnormalities, Hx Fibromyalgia, Hx Gout, Hx Orthopedic Injury, Hx Osteoporosis, Hx Scoliosis, Hx Tendonitis Sensory History: Reports: Hx Vision Problem Denies: Hx Cataracts, Hx Contacts or Glasses, Hx Eye Injury, Hx Eye Prosthesis, Hx Glaucoma, Hx Macular Degeneration, Hx Hearing Aid, Other Sensory Impairments Opthamlomology History: Reports: Hx Vision Problem Denies: Hx Cataracts, Hx Contacts or Glasses, Hx Eye Injury, Hx Eye Prosthesis, Hx Glaucoma, Hx Macular Degeneration, Other Sensory Impairments Neurological History: Reports: Hx Developmental Delay - intellectual disability , Hx Seizures - STATES WITH ALLERGIC REACTION TO TRAMADOL Denies: Hx Dementia, Hx Headaches, Other Neuro Impairments/Disorders Psychiatric History: Reports: Hx Anxiety - ON MEDICATION FOR, Hx Depression - ON MEDICATION FOR, Hx Post Traumatic Stress Disorder, Hx Inpatient Treatment, Hx Community Mental Health Tx, Hx Bipolar Disorder - pt manic, Hx Suicide Attempt - past med overdoses, Hx of Violent Episodes Against Others, Other Psychiatric Issues/Disorders - PSYCHOSIS NOS, HX OF PTSD, SCHIZOAFFECTIVE DISORDER, BORDERLINE PERSONALITY Denies: Hx Attention Deficit Hyperactivity Disorder, Hx Eating Disorder, Hx Panic Disorder, Hx Schizophrenia, Hx Substance Abuse - Cancer History Cancer Type, Location and Year: None reported - Surgical History Surgery Procedure, Year, and Place: 2011-CATARACT EXTRACTION. GALLBLADDER REMOVED Hx Anesthesia Reactions: No - Immunization History Date of Tetanus Vaccine: Unknown Date of Influenza Vaccine: 04/2017 Infectious Disease History: No Infectious Disease History: Denies: Hx Clostridium Difficile, Hx Hepatitis, Hx Human Immunodeficiency Virus (HIV), Hx of Known/Suspected MRSA, Hx Shingles, Hx Tuberculosis, Hx Known/ Suspected VRE, Hx Known/Suspected VRSA, History Other Infectious Disease, Traveled Outside the [place] in Last 30 Days - Family History Known Family History: Positive: Other - Anxiety and depression, [place] - father Negative: Cardiac Disease, Hypertension, Diabetes Family History: Depression and anxiety - Social History Occupation: Disabled Lives: At [employer] Alcohol Use: None Hx Substance Use: Yes Substance Use Type: Reports: None Hx Tobacco Use: Yes Smoking Status (MU): Current Some Day Smoker Type: Cigarettes Amount Used/How Often: 1/2 PPD FOR LAST 30 DAYS, NO OTHER TOBACCO Length of Time of Smoking/Using Tobacco: 2 year ago Have You Smoked in the Last Year: Yes - Patient has smoked within the last 30 days Review of Systems Negative: Fever Positive: Diarrhea Neurological: Other - pos: dizziness Positive: Weakness All Other Systems Reviewed And Are Negative: Yes Physical Exam - Summary Physical Exam Summary: Appearance: Well appearing, no pain distress Skin: warm, dry, reflects adequate perfusion. There are old parallel scars on both arms. Head/face: normal Eyes: EOMI, JENNIFER ENT: mucous membranes moist Neck: supple, non-tender Respiratory: CTA, breath sounds present Cardiovascular: RRR, pulses symmetrical Abdomen: non-tender, soft Bowel Sounds: present Musculoskeletal: normal, strength/ROM intact Neuro: normal, sensory motor intact, A&Ox3 Triage Information Reviewed: Yes Vital Signs On Initial Exam: Initial Vitals Temp Pulse Resp BP Pulse Ox 98.3 F 88 16 156/113 98 07/20/18 00:48 07/20/18 00:48 07/20/18 00:48 07/20/18 00:48 07/20/18 00:48 Vital Signs Reviewed: Yes Diagnostics - Vital Signs Vital Signs Temp Pulse Resp BP Pulse Ox 07/20/18 00:48 98.3 F 88 16 156/113 98 - Laboratory Result Diagrams: 07/20/18 01:06 07/20/18 01:06 Lab Statement: Any lab studies that have been ordered have been reviewed, and results considered in the medical decision making process. - Radiology ABD XR Radiology Interpretation Completed By: ED Physician Summary of Radiographic Findings: Foreign body in epigastrium, consistent with hx of ingesting battery. ABD XR Repeat Radiology Interpretation Completed By: ED Physician Summary of Radiographic Findings: Foreign body now post-pyloric Re-Evaluation - Re-Evaluation 1 Re-Evaluation Time: 01:57 Change: Improved Comment: Pt is feeling better after 1/3 of fluids. Complex Multi-Symp Course/Dx Course Of Treatment: Nurse's note reviewed. Patient is a frequent visitor to the ER for emotional/behavioral issues as well as frequent ingestion of batteries. Today she has ingested an alkaline cylinder battery that was found on x-ray to be in the stomach. This poses little throughout. She was given Carafate to cut down on any potential caustic reaction. She had no discomfort and reports no suicidal thoughts or worsening depression. She relates that she is frustrated over her upcoming colonoscopy and just wants to know what time the appointment is. She does have an intellectual disability which may be contributing to these recurrent presentations. She did not require formal mental health evaluation as she was cleared medically by me and also subsequently cleared on a psychiatric basis by me as well. This is not a psychiatric presentation today nor a suicide attempt or gesture. At time of discharge we made contact with [facility], the patient's long-term care residence. The identification technician there informed us that the patient would not be allowed back without permission of the geodetic survey director at the facility. This was expected to calm at approximately 7 AM. Attempts to reach the geodetic survey director were met with resistance. I forwarded this to the warehouse assembly worker here. Patient remained in the ER despite her discharge disposition for several hours. I used the time to get a second x-ray which confirms that the cylinder battery is definitely postpyloric. She remained stable and would like to go home to start her bowel prep for colonoscopy. - Diagnoses Differential Diagnoses/HQI/PQRI: Other - Suicidal gesture, intellectual disability, education deficit, mood disorder, pica Provider Diagnoses: Intentional ingestion of batteries, Pica, Adjustment disorder, IBS (irritable bowel syndrome), Intellectual disability Discharge - Sign-Out/Discharge Documenting (check all that apply): Patient Departure - DC - Discharge Plan Condition: Improved Disposition: HOME Patient Education Materials: Foreign Body Ingestion (ED) Referrals: Jonathan Reynoso DO [Doctor of Osteopathy] - Chapo Aguila MD [Primary Care Provider] - Additional Instructions: Never eat batteries. These can be dangerous to you. Take your bowel prep tomorrow and have your colonoscopy as scheduled on Tuesday. Return with vomiting, increased pain, worse or other concerns. Follow-up with your counselor/therapist tomorrow. Patient should not have access to any batteries. - Billing Disposition and Condition Condition: IMPROVED Disposition: Home - Attestation Statements Document Initiated by Gonzalez: Yes Documenting Scribe: Rober Borja Provider For Whom Gonzalez is Documenting (Include Credential): Dr. Fabiano Velasquez MD Scribe Attestation: IRober, scribed for Dr. Fabiano Velasquez MD on 07/20/18 at 0630. Scribe Documentation Reviewed: Yes Provider Attestation: The documentation as recorded by the gonzalez, Rober Borja accurately reflects the service I personally performed and the decisions made by me, Dr. Fabiano Velasquez MD Status of Scribe Document: Viewed
[2018-07-20 01:28] LABS: ABS Basophils 0.1 10^3/ul (0-0.2); ABS Eosinophils 0.2 10^3/ul (0-0.6); ABS Lymphocytes 1.9 10^3/ul (1.0-4.8); ABS Monocytes 0.4 10^3/ul (0-0.8); ABS Neutrophils 6.3 10^3/ul (1.5-7.7); ABS Nucleated RBC 0 10^3/ul; Eosinophil % 1.7 %; Hematocrit 37 % (35-47); Hemoglobin 12.3 g/dl (12.0-16.0); Lymphocyte % 21.6 %; Mean Corpuscular HGB Conc 33 g/dl (31-36); Mean Corpuscular Hemoglobin 29 pg (27-31); Mean Corpuscular Volume 87 fL (80-97); Mean Platelet Volume 9.6 fL (7.4-10.4); Nucleated Red Blood Cells % 0; Platelet Count 194 10^3/ul (150-450); Red Cell Distribution Width 17 % (10.5-15); White Blood Count 8.8 10^3/ul (3.5-10.8)
[2018-07-20] MEDS ORDERED: Sucralfate TAB* 1 GM PO ONE (01:29)
[2018-07-20 01:43] LABS: BUN/Creatinine Ratio 18.3 (8-20); Calcium 9.3 mg/dL (8.6-10.3); EGFR Non-African American 86.4 (>60)
--- NOTE | 2018-07-20 12:22 | PN ---
ED Flex Patient Progress Note Date of Service: 07/20/18 Subjective: 53 y.o. , white female with a history of schizoaffective and borderline personality disorders, well known to [facility] staff, arrives from [facility] having swallowed a battery in anger. Patient has colonoscopy scheduled tomorrow and asked [facility] staff to start giving her her bowel prep and got angry when they did not. She's also upset that she hasn't seen Dr. Villar at [facility] since her d/c from [facility] back in March. She denies SI and does not want to come into the hospital. Objective: obese, dishevelled white female; calm and cooperative; denies SI Assessment: Borderline PD Plan: Will reach out to [facility] and make sure she has appropriate follow ups, including with her psychiatrist, Dr. Villar. D/C to [facility]. Vital Signs Temp Pulse Resp BP Pulse Ox 97.6 F 69 16 107/72 97 07/20/18 06:41 07/20/18 07:00 07/20/18 06:41 07/20/18 06:48 07/20/18 07:00 Lab Results - Entire Visit 07/20/18 07/20/18 07/20/18 01:14 01:06 01:06 WBC 8.8 RBC 4.30 Hgb 12.3 Hct 37 MCV 87 MCH 29 MCHC 33 RDW 17 H Plt Count 194 MPV 9.6 Neut % (Auto) 71.5 Lymph % (Auto) 21.6 [place] % (Auto) 4.5 Eos % (Auto) 1.7 Baso % (Auto) 0.7 Absolute Neuts (auto) 6.3 Absolute Lymphs (auto) 1.9 Absolute Monos (auto) 0.4 Absolute Eos (auto) 0.2 Absolute Basos (auto) 0.1 Absolute Nucleated RBC 0 Nucleated RBC % 0 Sodium 140 Potassium 4.0 Chloride 108 Carbon Dioxide 26 Anion Gap 6 BUN 13 Creatinine 0.71 Est GFR ( Amer) 104.6 Est GFR (Non-Af Amer) 86.4 BUN/Creatinine Ratio 18.3 Glucose 82 POC Glucose (mg/dL) 78 Calcium 9.3
[2018-07-20 12:59] VITALS: BP 119/52
== END 2018-07-20 12:57 | disposition home or self-care (01) ==
LOC: ED 00:41
DX: F60.3 Borderline personality disorder (principal); F20.9 Schizophrenia, unspecified; T18.3XXA Foreign body in small intestine, initial encounter; X58.XXXA Exposure to other specified factors, initial encounter; Y92.29 Other specified public building as the place of occurrence of the external cause
CPT/HCPCS: 36415; 74018; 80048; 85025; 96374; 99282; A9270-GY

== ENCOUNTER 2018-08-17 11:45 | Day surgery (SDC) | payer MEDICARE, MEDICAID ==
[~2018-08-17 11:45] MED LIST changes: -Al Hydrox/Mg Hydrox/Simet LIQ* 30 ML UDC PO ONE; +Buffered Lidocaine 1% SYRIN* 1 ML/SYRINGE INTRADERM ONE; +Lactated Ringers 1000 ML Bag* 1,000 ML IV SCH; -Lidocaine 2% VISCOUS* 15 ML UDC PO ONE
[2018-08-17] MEDS ORDERED: Buffered Lidocaine 1% SYRIN* 1 ML/SYRINGE INTRADERM ONE (12:24)
[2018-08-17] MEDS ORDERED: Lidocaine 2% PF * 5 ML VIAL ONE (14:03)
[2018-08-17] MEDS ORDERED: Propofol* 10 MG/ML 20 ML BTL ONE (14:03)
[2018-08-17] MEDS ORDERED: Naloxone* 0.4 MG/ML 1 ML VIAL IV PRN (15:18)
[2018-08-17 15:50] VITALS: BP 151/80
--- NOTE | 2018-08-19 02:05 | PRO ---
COLONOSCOPY REPORT: DATE OF PROCEDURE: 08/17/18 - [facility] INDICATION FOR PROCEDURE: Change in bowel habits, rectal bleeding. PROCEDURE PERFORMED: Incomplete colonoscopy to roughly transverse colon. MEDICATIONS GIVEN: Please see anesthesia record. DESCRIPTION OF PROCEDURE: After the colonoscopy procedure, including the risks , benefits, and alternatives, with the risks not limited to perforation, surgery , missed lesions, and/or were explained to the patient, written and informed consent was obtained, IV medication was given by the anesthesia service , and a rectal exam was performed. The rectal exam was unremarkable. The adult Olympus colonoscope was then inserted into the patient's rectum and immediately fito stool was visualized. Solid stool was evident. I was able to kind of skirt along the top to roughly the transverse colon, but then had to further abort the procedure due to increased procedure risk. I was not able to see really anything in the prep. She states that she took the whole preparation. The scope was then removed from the patient. She tolerated the procedure well. She returned to the recovery room in stable condition. The preparation was poor. IMPRESSION: Failed colonoscopy to the transverse colon secondary to poor prep. RECOMMENDATIONS: Suspect the constipation has been her main issue all along. In addition, she does admit to some nausea, which she told me during the interview prior. We will plan on repeating a colonoscopy in 1 to 2 months along with EGD at that time after she has started daily b.i.d. MiraLAX. In addition, we will consider additional Dulcolax or bowel movements to facilitate better colonic motility. [id number]/[facility] #: [id number]
== END 2018-08-17 16:40 | disposition home or self-care (01) ==
LOC: OR 11:45
PROVIDERS: ATTEND Internal Medicine Gastroenterology
DX: R19.4 Change in bowel habit (principal); K62.5 Hemorrhage of anus and rectum; R14.0 Abdominal distension (gaseous); K59.00 Constipation, unspecified; E11.9 Type 2 diabetes mellitus without complications; Z79.4 Long term (current) use of insulin; Z79.84 Long term (current) use of oral hypoglycemic drugs; E03.9 Hypothyroidism, unspecified; K21.9 Gastro-esophageal reflux disease without esophagitis; E78.2 Mixed hyperlipidemia; E66.2 Morbid (severe) obesity with alveolar hypoventilation; F31.9 Bipolar disorder, unspecified
CPT/HCPCS: J2704

== ENCOUNTER 2018-08-19 20:10 | Emergency (ER) | payer MEDICARE, MEDICAID ==
--- OUTSIDE RECORDS SUMMARY | 2018-08-19 20:17 | XMS REPORT | Continuity of Care Document ---
:1965 External Reference #:[id number] Author Name Jonathan Reynoso DO Address [address] [place] [address] [place] [address] Care Team Providers Name Role Phone Rosa Schroeder M.D. Care Team Information [employer] Unavailable Rosa Schroeder M.D. Primary Care Physician Unavailable Payers Type Date Identification Numbers Payment Provider Subscriber Policy Number: [id number] Medicare Taryn Schulz PayID: [id number] [facility] [address] [place] [address] Policy Number: [id number] Medicaid/Medicare Taryn Schulz Group Name: 2 2 N F [facility] [employer] [facility] PayID: [id number] [address] [place] [address] Advance Directives Description No Information Available Problems Date Description Provider Status Onset: 08/11/2017 Benign neoplasm of colon Chapo Aguila MD Active Onset: 07/15/2017 Bipolar affective disorder, currently Chapo Aguila MD Active depressed, mild Onset: 07/15/2017 Thoracic and lumbosacral neuritis Chapo Aguila MD Active Onset: 06/13/2017 Type 2 diabetes mellitus Chapo Aguila MD Active Onset: 06/13/2017 Hypothyroidism Chapo Aguila MD Active Onset: 06/13/2017 Gastroesophageal reflux disease Chapo Aguila MD Active Onset: 06/13/2017 Mixed hyperlipidemia Chapo Aguila MD Active Onset: 06/13/2017 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 Onset: 06/13/2017 Bipolar I disorder Chapo Aguila MD Active Family History Description No Information Available Social History Type Date Description Comments Sex Unknown Tobacco Use Start: Unknown End: Unknown Patient is a former smoker Smoking Status Reviewed: 05/30/18 Patient is a former smoker Allergies, Adverse Reactions, Alerts Date Description Reaction Status Severity Comments 05/10/2017 Latex Urticaria Active 05/08/2018 Lurasidone Active 05/10/2017 Sulfa Antibiotics hives Active 05/10/2017 Penicillins Urticaria Active 05/10/2017 Nalbuphine Active 05/10/2017 Perphenazine Active 05/10/2017 Ciprofloxacin dizziness Active 05/10/2017 Tramadol altered mental status Active 05/10/2017 [place] Active Medications Medication Date Status Form Strength Qnty SIG Indications Ordering Provider Miralax 08/17 Active Powder 3350NF 510un 1 scoop PO its bid. Edgardo, DO Nystatin 05/15 Active Powder [id number] 90uni apply twice t/GM ts daily until rash clears Ventolin HFA 05/15 Active Aerosol 108(90Bas 8unit 2 by mouth J45.909 e) s every 4 hours mcg/Act as needed Januvia 05/08 Active Tablets 50mg 90tab one by mouth E11.65 s daily Colyte With 04/06 Active Solution 240gm 4000m by mouth as Jonathan Flavor Packs /2017 Rec l directed Edgardo, DO Losartan 10/13 Active Tablets 50mg 30tab 1 by mouth E11.65 [place] Potassium s once a day Chapo MD Lamotrigine Active Tablets 100mg take 1 tablet Unknown / by mouth twice a day Olanzapine Active Tablets 5mg daily Unknown / Trazodone HCL Active Tablets 100mg 4 tabs at Unknown /0000 bedtime Levothyroxine Active Tablets 0.15mg 90tab 1 tab daily [place] Sodium / s am in the Chapo empty stomach Naproxen Active Tablets 500mg 60tab twice daily [place] Chapo [place] MD Atorvastatin Active Tablets 20mg 90tab take one [place] Calcium / s tablet by Chapo mouth every MD day Duloxetine HCL Active Caps DR 60mg 1 by mouth Unknown / Part every day And A 20 MG Tabs Gabapentin Active Capsules 400mg 1 tid / Lantus Active Solution 100Unit/M 40 unit/bid, Unknown /0000 L increase dose as instructed Humalog 00 Active Solution 100Unit/M 130 - 150=1 Unknown /0000 L unit 151-200=2 units 201-250=4 units 251-300=6 units 301-350=7 units 351-400=8 units Levothyroxine Active Tablets 150mcg 90tab 1 by mouth Unknown s every day Humalog Kwikpen Active Solution 100Unit/M 9unit 4-10 Units SQ E11.65 Unknown /0000 Pen-Injec L s three times a t day, at mealtime, per sliding scale instructions Loratadine Active Capsules 10mg 90cap once a day Unknown / s for allergies as needed Duloxetine HCL Active Caps DR 20mg 90cap 1 by mouth Unknown / Part s every day with 60mg tab Naproxen Active Tablets 375mg 180ta twice a day Unknown / bs with food Vitamin D3 Active Capsules 1000Unit 180ca 1 by mouth Unknown / ps twice daily Metformin HCL ER 05/12 Hx Tablets 500mg 90tab take 1 tablet ER 24HR s by mouth once - a day with 05/30 dinner Colyte With 03/20 Hx Solution 240gm 4000m by mouth as Z12.11 Jonathan Flavor Packs /2017 Rec l milagro Reynoso, - DO 03/23 Tresiba 10/13 Hx Solution 100Unit/M 15uni units at E11.65 [place] Flextouch Pen-Injec L ts bedtime ,Elliott Cowan MD 03/20 Hydrocodone-Acet 10/10 Hx Tablets 5-325mg 20tab 1 tab every [place] aminophen s 12h as needed ,Elliott Cowan MD 03/20 Mucinex 08/28 Hx Tablets 600mg 20tab 1 po bid prn Janiya ER 12HR s -MD Andrea - 03/20 Fluconazole 08/22 Hx Tablets 150mg 2tabs one by mouth Jadiel Denson may repeat in -MD Andrea - 3 days as 03/20 Janumet 07/15 Hx Tablets 50-500mg 60tab 1 by mouth E11.9 [place] s twice a day ,Elliott Cowan MD 03/20 Nicotrol 06/13 Hx Inhaler 10mg 168un use 4-5 times F17.210 its daily ,Elliott Cowan MD 03/20 Clotrimazole 06/13 Hx Cream 1% 90uni apply twice B37.9 ts daily ,Elliott Cowan MD 03/20 Acetaminophen-Co 05/26 Hx Tablets 300-30mg 20tab 1 tab by dl Duarte # s mouth every Marline - 4-6 hours MD awilda 03/20 needed for pain Ibuprofen Hx Tablets 600mg as needed Home /0000 Paty - [employer] 03/20 Ondansetron Hx Tablets 8mg every 6-8 Home /0000 Dispers hours as Paty - needed [employer] 03/20 Pantoprazole Hx Tablets 40mg take 1 tablet Unknown Sodium /0000 DR by mouth once - daily 03/20 Sertraline HCL Hx Tablets 100mg Take 1+1/2 Unknown /0000 Tablets By - Mouth Once 03/20 Cyclobenzaprine Hx Tablets 10mg as needed Unknown HCL /0000 - 03/20 Latuda Hx Tablets 80mg daily Unknown /0000 - 03/20 Levothyroxine Hx Tablets 50mcg 90tab 1 tab daily [place] Sodium /0000 s in the empty ,Elliott Cowan MD 03/20 Lantus Solostar Hx Solution 100Unit/M 70 units at [place],Ma /0000 Pen-Injec L hs MD pepper - t 03/20 Metformin HCL Hx Tablets 850mg bid Unknown /0000 - 05/30 Lantus Solostar 00 Hx Solution 100Unit/M 45uni 40 units Unknown /0000 Pen-Injec L ts twice daily - t 05/30 Immunizations CPT Code Status Date Vaccine Lot # [id number] Given 05/01/2018 Influenza Virus Vaccine, Quadrivalent, Split, Preservative Free Vital Signs Date Vital Result Comment 05/30/2018 2:57pm Height 67.5 inches 5'7.50" Weight 264.00 lb BMI (Body Mass Index) 40.7 kg/m2 03/20/2018 10:42am Height 67.5 inches 5'7.50" Weight 258.00 lb BP Systolic 156 mmHg BP Diastolic 99 mmHg Heart Rate 79 /min BMI (Body Mass Index) 39.8 kg/m2 Results Test Date Facility Test Result H/L Range Note Laboratory test 08/17/2018 [facility] [place] Point of Care 145 mg/dL High 70-100 1 finding Glucose CMP(!) 05/18/2018 [facility] Sodium(!) <pending> Potassium(!) <pending> Chloride Serum/Plasma(!) <pending> Carbon Dioxide Ser/Plasm(!) <pending> BUN - Urea Nitrogen(!) <pending> Calcium Ser/Plasma Mass/Vol(!) <pending> Creatinine Serum Mass/Vol(!) <pending> Glucose Serum(!) <pending> BUN/Creatinine Ratio(!) <pending> Albumin Serum/Plasma(!) <pending> Alkaline Phosphatase(!) <pending> Bilirubin Total Mass/Vol(!) <pending> Ast - Sgot <pending> Alt - SGPT <pending> Protein Total <pending> Laboratory test 05/18/2018 [facility] Lipase Ser/Plas (!) <pending> finding CBC W/Auto 05/18/2018 [facility] White Blood Count <pending> Differential(!) Ser Auto CNT RBC Red Blood Count <pending> Hemoglobin Blood <pending> Hematocrit <pending> MCV (Corpuscular Volume) <pending> MCH (Corpuscular Hemoglobin) <pending> MCHC (Corpuscular Hemog Conc) <pending> RDW <pending> Platelet Count Blood Auto CNT <pending> MPV <pending> Lymph% <pending> [place]% <pending> Neutrophil % <pending> Absolute Lymphocytes <pending> Absolute Monocytes <pending> Absolute Neutrophils <pending> Xray 05/18/2018 [facility] [place] Radiology Chest Ap <pending> Portable Laboratory test 05/15/2018 [facility] C Difficile PCR <pending> finding Unspec Spec Xray 05/10/2018 [facility] [place] Radiology CT, Abd & <pending> Pelvis W/O Contrast Laboratory test 05/08/2018 N2N/CCD Import Hemoglobin A1c 9.7 1 High 5-7 finding Laboratory test 11/02/2017 N2N/CCD Import Amphetamine Ur None Detected None finding Screen Detect Barbiturates Urine Screen None Detected None Detect Benzodiazepine Urine Screen None Detected None Detect Urine Cannabinoids Screen None Detected None Detect Urine Cocaine Screen None Detected None Detect Urine Opiates Screen Presumptive Posi <See Note> None Detect 2 Urine Phencyclidine Screen None Detected None Detect 3 Urinalysis Profile 11/02/2017 N2N/CCD Import Urine Appearance Clear Urine Bilirubin Negative Negative Urine Blood Negative Negative Urine Color Yellow Urine Glucose 1+(50 mg/dL) Negative Urine Ketones Negative Negative Urine Leukocytes Negative Negative Urine Nitrite Negative Negative Urine Protein Negative Negative Urine Specific Pierre Part 1.018 1 1.010-1.030 Urine Urobilinogen Negative Negative Urine pH 5.0 1 5-9 Arterial Blood Gas 11/02/2017 N2N/CCD Import Base Excess 2.1 1 High -2.0- 2.0 4 Arterial Hco3 Arterial 26.4 mmol/L 19-31 O2 Saturation Arterial 91.1 % Low 95-98 PH Arterial 7.36 1 7.35-7.45 Pco2 Arterial 50 mmHg High 35-45 Po2 Arterial 65 mmHg Low 80-100 Laboratory test finding 10/02/2017 N2N/CCD Import Albumin 3.7 g/dL 3.2- 5.2 Albumin/Globulin Ratio 1.2 1 1-3 Alkaline Phosphatase 119 U/L High 34-104 Alt 18 U/L 7-52 Anion Gap 4 mmol/L 2-11 Ast 18 U/L 13-39 BUN/Creatinine Ratio 16.5 1 8-20 Blood Urea Nitrogen 14 mg/dL 6-24 CRP High Sensitivity 3.53 mg/L 5 Calcium 9.2 mg/dL 8.6-10.3 Chloride 103 mmol/L 101-111 Co2 Carbon Dioxide 29 mmol/L 22-32 Creatinine 0.85 mg/dL 0.51-0.95 Egfr 90.7 1 >60 6 Egfr Non- 70.5 1 >60 Globulin 3.2 g/dL 2-4 Glucose 347 mg/dL High 70-100 Potassium 4.5 mmol/L 3.5-5.0 Sodium 136 mmol/L 133-145 Total Bilirubin 0.20 mg/dL 0.2-1.0 Total Protein 6.9 g/dL 6.4-8.9 CBC Auto Diff 10/02/2017 N2N/CCD Import Abs Basophils 0.1 10^3/uL 0-0.2 Abs Eosinophils 0.8 10^3/uL High 0-0.6 Abs Lymphocytes 2.2 10^3/uL 1.0-4.8 Abs Monocytes 0.5 10^3/uL 0-0.8 Abs Neutrophils 6.6 10^3/uL 1.5-7.7 Abs Nucleated RBC 0 10^3/uL Basophil % 0.6 % 0-2 Eosinophil % 7.8 % High 0-6 Granulocyte % 64.4 % 38-83 Hematocrit 36 % 35-47 Hemoglobin 11.8 g/dL Low 12.0-16.0 Lymphocyte % 21.9 % Low 25-47 Mean Corpuscular HGB Conc 33 g/dL 31-36 Mean Corpuscular Hemoglobin 27 pg 27-31 Mean Corpuscular Volume 83 fL 80-97 Mean Platelet Volume 9 um3 7.4-10.4 Monocyte % 5.3 % 0-7 Nucleated Red Blood Cells % 0 1 Platelet Count 219 10^3/uL 150-450 Red Blood Count 4.29 10^6/uL 4.0-5.4 Red Cell Distribution Width 18 % High 10.5-15 White Blood Count 10.3 10^3/uL 3.5-10.8 Laboratory test 09/28/2017 N2N/CCD Import Hemoglobin A1c 9.1 1 High 5-7 finding Laboratory test 09/13/2017 N2N/CCD Import Point of Care 179 mg/dL High 70 -100 7 finding Glucose CBC W/Auto 08/22/2017 [facility] White Blood Count <pending> Differential(!) Ser Auto CNT RBC Red Blood Count <pending> Hemoglobin Blood <pending> Hematocrit <pending> MCV (Corpuscular Volume) <pending> MCH (Corpuscular Hemoglobin) <pending> MCHC (Corpuscular Hemog Conc) <pending> RDW <pending> Platelet Count Blood Auto CNT <pending> MPV <pending> Lymph% <pending> [place]% <pending> Neutrophil % <pending> Absolute Lymphocytes <pending> Absolute Monocytes <pending> Absolute Neutrophils <pending> CMP(!) 08/22/2017 [facility] Sodium(!) <pending> Potassium(!) <pending> Chloride Serum/Plasma(!) <pending> Carbon Dioxide Ser/Plasm(!) <pending> BUN - Urea Nitrogen(!) <pending> Calcium Ser/Plasma Mass/Vol(!) <pending> Creatinine Serum Mass/Vol(!) <pending> Glucose Serum(!) <pending> Uric Acid Ser/Plas Mass/Vol(!) <pending> BUN/Creatinine Ratio(!) <pending> Albumin Serum/Plasma(!) <pending> Alkaline Phosphatase(!) <pending> Bilirubin Total Mass/Vol(!) <pending> Ast - Sgot <pending> Alt - SGPT <pending> Protein Total <pending> Laboratory test finding 08/22/2017 [facility] Troponin I <pending> Inr(!) <pending> Xray 08/17/2017 [facility] [place] Radiology Abdomen/KUB 1 VW <pending> Xray 08/09/2017 [facility] [place] Radiology Abdomen/KUB 1 VW <pending> Laboratory test 08/09/2017 N2N/CCD Import Point of Care 266 mg/dL High 70 -100 8 finding Glucose Xray 08/08/2017 [facility] [place] Radiology Abdomen/KUB 1 VW <pending> Xray 08/08/2017 [facility] [place] Radiology Chest Ap Portable <pending> Laboratory test 08/08/2017 N2N/CCD Import Albumin 3.7 g/dL 3.2-5. finding 2 Albumin/Globulin Ratio 0.9 1 Low 1-3 Alkaline Phosphatase 158 U/L High 34-104 Alt 15 U/L 7-52 Anion Gap 7 mmol/L 2-11 Ast 16 U/L 13-39 BUN/Creatinine Ratio 22.2 1 High 8-20 Blood Urea Nitrogen 18 mg/dL 6-24 Calcium 9.5 mg/dL 8.6-10.3 Chloride 100 mmol/L Low 101-111 Co2 Carbon Dioxide 29 mmol/L 22-32 Creatinine 0.81 mg/dL 0.51-0.95 Egfr 95.9 1 >60 Egfr Non- 74.5 1 >60 Globulin 4.1 g/dL High 2-4 Glucose 341 mg/dL High 70-100 Lamotrigine (Lamictal) 2.5 ug/mL 2.5 - 15.0 Potassium 4.3 mmol/L 3.5-5.0 Sodium 136 mmol/L 133-145 9 TSH (Thyroid Stim Horm) 2.67 mcIU/mL 0.34-5.60 Total Bilirubin 0.20 mg/dL 0.2-1.0 Total Protein 7.8 g/dL 6.4-8.9 CBC Auto Diff 08/08/2017 N2N/CCD Import Abs Basophils 0.1 10^3/uL 0-0.2 Abs Eosinophils 0.7 10^3/uL High 0-0.6 Abs Lymphocytes 3.1 10^3/uL 1.0-4.8 Abs Monocytes 0.6 10^3/uL 0-0.8 Abs Neutrophils 7.4 10^3/uL 1.5-7.7 Abs Nucleated RBC 0 10^3/uL Basophil % 1.2 % 0-2 Eosinophil % 5.7 % 0-6 Granulocyte % 62.0 % 38-83 Hematocrit 39 % 35-47 Hemoglobin 12.3 g/dL 12.0-16.0 Lymphocyte % 25.9 % 25-47 Mean Corpuscular HGB Conc 32 g/dL 31-36 Mean Corpuscular Hemoglobin 26 pg Low 27-31 Mean Corpuscular Volume 81 fL 80-97 Mean Platelet Volume 9 um3 7.4-10.4 Monocyte % 5.2 % 1-9 Nucleated Red Blood Cells % 0 1 Platelet Count 298 10^3/uL 150-450 Red Blood Count 4.78 10^6/uL 4.0-5.4 Red Cell Distribution Width 18 % High 10.5-15 White Blood Count 11.9 10^3/uL High 3.5-10.8 Urinalysis Profile 08/08/2017 N2N/CCD Import Urine Specific 1.022 1 1.010-1.030 Pierre Part Urine pH 6.0 1 5-9 Xray 07/04/2017 [facility] [place] Radiology Abdomen/KUB 1 VW <pending> Laboratory test 06/13/2017 N2N/CCD Import Hemoglobin A1c 9.2 1 High 5-7 finding Xray 05/09/2017 [facility] [place] Radiology CT Abd/Pel W <pending> Xray 05/02/2017 [facility] [place] Radiology CT Abd/Pel W/O <pending> Xray 04/06/2017 [facility] [place] [facility] Radiology Chest Ap Portable <pending> Xray 04/06/2017 [facility] [place] Radiology CT Abd/Pel W <pending> Xray 03/29/2017 [facility] [place] [facility] Radiology CT Abd/Pel W/O <pending> Xray 03/09/2017 [facility] [place] Radiology Abdomen/KUB 1 VW <pending> Xray 02/15/2017 [facility] [place] Radiology Chest Ap Portable <pending> Xray 06/21/2016 [facility] [place] Radiology Abdomen/KUB 1 VW <pending> Xray 06/18/2016 [facility] [place] Radiology Abdomen/KUB 1 VW <pending> Xray 06/18/2016 [facility] [place] Radiology Abdomen/KUB 1 VW <pending> Xray 06/18/2016 [facility] [place] Radiology Abdomen/KUB 1 VW <pending> Xray 08/04/2015 [facility] [place] Radiology Abdomen/KUB 1 VW <pending> Xray 08/01/2014 [facility] [place] [facility] Radiology CT Brain Wo <pending> Laboratory test 05/01/2006 [facility] Lipase Ser/Plas <pending> finding (!) TSH Thyroid Stim Hormone(!) <pending> BMP W/O Egfr(!) 05/01/2006 [facility] Sodium(!) <pending> Potassium(!) <pending> Chloride Serum/Plasma(!) <pending> Carbon Dioxide Ser/Plasm(!) <pending> BUN - Urea Nitrogen(!) <pending> Calcium Ser/Plasma Mass/Vol(!) <pending> Creatinine Serum Mass/Vol(!) <pending> Glucose Serum(!) <pending> Xray 01/11/2006 [facility] [place] Radiology MRI Cholangiogram <pending> 1 Research Methods Instructor: [id number] 2 Presumptive Positive Presumptive positive results are unconfirmed. 3 The urine specimen was tested at the listed cutoffs: Drug class test level (ng/mL) Amphetamines 500 Barbiturates 200 Benzodiazepine metabolites 200 Cocaine metabolites 150 Cannabinoids 50 Opiates 300 Pcp 25 Specimen was received without chain of custody. Results should be used for medical purposes only. 4 Reference ranges based on room air. 5 Low risk: <1.00 Average risk: 1.00-3.00 High risk: >3.00 6 Because ethnic data is not always [...] 5 Kidney failure <15 (or dialysis) 7 Research Methods Instructor: [id number] Research Methods Instructor: [id number] 9 Because ethnic data is not always readily [...] 15-29 5 Kidney failure <15 (or dialysis) Procedures Date Code Description Status 04/28/2007 28263 EGD+Biopsy Single Or Multiple Completed 01/07/2004 19454 EGD+Biopsy Single Or Multiple Completed Encounters Type Date Location Provider Dx Diagnosis Office Visit 05/30/2018 Gastroenterology Jonathan Reynoso, R19.7 Diarrhea, 3:00p [facility] unspecified R19.5 Other fecal abnormalities K90.3 Pancreatic steatorrhea Z87.19 Personal history of other diseases of the digestive system Office Visit 03/20/2018 Gastroenterology Jonathan Reynoso Z12.11 Encounter for 10:15a [facility] screening for malignant neoplasm of colon Z79.4 [facility] (current) use of insulin 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 Plan of Treatment 05/30/2018 - Jonathan Edgardo, DOR19.7 Diarrhea, unspecifiedComments:Needs to complete prior tesitng as ordered. Discussed importance and need for follow up. DIarrhea a little better after d/c of metformin. Will plan c-scope with random bx. On numerous medications thatcan cause diarrhea, trimming of list may be prudent.R19.5 Other fecal ebrtwjvsowzrsH34.3 Pancreatic steatorrheaComments: History of pancreatitis. Will check pancreatic elastase.Z87.19 Personal history of other diseases of the digestive system
--- OUTSIDE RECORDS SUMMARY | 2018-08-19 20:18 | XMS REPORT | Continuity of Care Document ---
:1965 External Reference #:[id number] Author Name Claire Mayer Care Team Providers Name Role Phone Rosa Schroeder M.D. Primary Care Physician Unavailable Payers Type Date Identification Numbers Payment Provider Subscriber Effective: 1991 Policy Number: [id number] Medicare Cecilio Alfaro PayID: [id number] [address] [place] [address] Policy Number: [id number] Medicaid Cecilio Alfaro Group Name: 1 [address] PayID: [id number] [place] [address] Advance Directives Description No Information Available Problems [...] Problem(s) Comments General Cancer Father Depression Father due to Operative () - after colonoscopy Complications Father Cancer Mother Alive And Well Social History Type Date Description Comments Sex Unknown Marital Status also with severe mental illness Lives With Assisted living [place] since March 2018. Was at [facility] from October-Apr 2018 Occupation Unemployed Occupation Disabled Tobacco Use Start: Unknown Patient was a states she is cigarette smoker, quitting current status is unknown Smoking Status Reviewed: 07/26/18 Patient was a states she is cigarette smoker, quitting current status is unknown ETOH Use 07/26/2018 Denies alcohol use Recreational Drug Use Former [...] 05/10/2017 Tramadol altered mental status Active 05/10/2017 [place] Active 05/08/2018 Lurasidone Active Moderate 05/22/2018 Metformin Diarrhea Active Medications Medication Date Status Form Strength Qnty SIG Indications Ordering Provider Arnuity Ellipta 07/26 Active Aerosol 100mcg/Ac 30uni 1 puff t ts inhaled D. [place], every day M.D.,FACP Levothyroxine 07/17 Active Tablets 175mcg 30tab take E03.9 Mayer Sodium s 175mcg MD Lori daily on an empty stomach Depend Adjustable 07/03 Active Misc 120un use four Rosa Underwear L its times a Schroeder, day Naproxen 06/29 Active Tablets 500mg 14tab take 1 s tablet D. [place], twice M.D.,FACP daily with food prn Flonase Allergy 06/23 Active Suspension 50mcg/Act 9.900 2 sprays ml in each Schroeder, nostril twice a day Fiasp Flextouch 05/19 Active Solution 100Unit/M 30ml 22 units E11.65 Pen-Inject L per meal 3 Schroeder, times MD daily Basaglar Kwikpen 05/19 Active Solution 100Unit/M 6ml 66 units Pen-Inject L once daily MD Alexandre Nicotrol 05/18 Active Inhaler 10mg 168un 1 its cartridges Kamille Denson, every 2 M.D.,FACP hours as needed Nystatin 05/15 Active Powder [id number] 90gm apply t/GM twice Schroeder, daily MD until rash clears Walker Auto 05/15 Active Misc -08/08" 1unit use this Glides/ s to Schroeder, Adjustment ambulate MD Holes/-08/08" daily for unsteady gait Ventolin HFA 05/15 Active Aerosol 108(90Bas 8gm 2 by mouth e) every 4 Cshroeder, mcg/Act hours as MD needed Onetouch Ultra 09/09 Active Strips 100un test up to E11.9 [place] its three Kamille Denson, times M.D.,FACP daily last visit: 03/18 Onetouch 08/31 Active Misc 100un test blood E11.9 Lawrence Ultrasoft Lanc its 2-3 a day Kamille Denson, or as M.D.,FACP needed BD Pen 08/24 Active Misc 32G X 4 120un use three E11.9 Needle/Suzanna/Ultra mm its times a Schroeder, Fine/32G X 4mm day daily. last visit 05/22/18 Depend Pant Extra 06/14 Active Misc 120un use 4 x a Large its day or as Schroeder, needed Olanzapine Active Tablets 5mg 90tab one tab s daily Alexandre daily Trazodone HCL Active Tablets 100mg 90tab 1 tab at s bedtime MD Alexandre Onetouch Ultra Active Kit w/Device 1unit check bs E11.65 Alyson Mendez Mini / s up to Kamille Denson, three M.D.,FACP times daily Atorvastatin 00 Active Tablets 20mg 90tab take 1 Calcium s tablet at Schroeder, bedtime Lamotrigine Active Tablets 100mg 180ta 1 by mouth bs twice a Schroeder, day Losartan Active Tablets 50mg 90tab 1 by mouth E11.65 s every day MD Alexandre Loratadine Active [...] Schroeder, mouth 3 MD times a day Lidoderm Active Patches 5% 60uni 1 apply to ts affected Schroeder, area 12 MD hours on, 12 hours off Azithromycin 07/26 Hx Tablets 250mg 6tabs 2 every day for 1 D. Janiya, - day, then M.DJarred,FACP 07/31 1 day Methylprednisolon 06/29 Hx TBPK 4mg 21uni take as Miguel ts instructed Jonah, - per samuel LAWSON 07/21 dose pack instructio ns Mucinex DM 06/23 Hx Tablets ER 30-600mg [...] - mouth once 05/22 a day dinner Januvia 05/08 Hx Tablets 50mg 90tab one by E11.65 s mouth Alexandre, - daily 07/18 Depend Adjustable 05/08 Hx Misc 120un use four R15.1 Underwear its times a Alexandre, - day 07/03 Exercise 05/08 Hx Pt allowed E11.65 to engage Alexandre, - in 07/03 exercise at facilities under direct supervisio n of staff Tresiba Flextouch 10/13 Hx Solution 100Unit/M 15ml 100 units E11.65 Pen-Inject L at bedtime Pachhortensia - M.DJarred 05/08 Losartan 10/13 Hx Tablets 25mg 30tab 1 by mouth E11.65 Chapo Potassium s once a day Ayla - MJarredDJarred 05/08 Hydrocodone-Aceta 10/10 Hx Tablets 5-325mg 20tab [address] [place] [address] [place] s every 12h Pachikara - as needed , M.DJarred 05/08 Tresiba Flextouch 09/19 Hx Solution 100Unit/M 15ml 60 units E11.65 Pen-Inject L at bedtime Pachhortensia - M.DJarred 10/13 Onetouch Ultra 08/31 Hx Lancets 100un check bs Chapo Mora its twice Pachikara - daily , M.DJarred 05/08 Onetouch Ultra 08/31 Hx Strips 100un test up to E11.9 Lawrence [place] its three Kamille Denson, - times MMarkel,FACP 09/09 daily visit:08/17 Mucinex 08/28 Hx Tablets ER 600mg 20tab 1 po bid Lawrence 12HR s prn Kamille Denson - Adelina,FACP 05/08 Doxycycline 08/28 Hx Capsules 100mg 13cap 1 by mouth Unknown Monohydr s twice a - day x 7 Tresiba Flextouch 08/26 Hx Solution 200Unit/M 18ml 30u SC in Pen-Inject L Am and 70u Kamille Denson - SC in PM M.DJarred,[facility] 09/19 Azithromycin 08/26 Hx Tablets 250mg 2 tabs by mouth on - day 1; 1 08/31 tab by mouth every day on days 2-5 Tramadol HCL 08/26 Hx Tablets 50mg 30tab 1 tab by s mouth Kamille Denson, - three M.DJarred,[facility] 09/28 times a day Fluconazole 08/22 Hx Tablets 150mg 2tabs one by mouth may Kamille Denson, - repeat in M.D.,[facility] 05/08 3 days needed Lancets 28G 08/08 [...] 1unit one touch Erik Glucose s glucometer [facility], Monitoring System - to measure M.D. [...] M.D. 05/08 hours needed for pain Ibuprofen 00/00 Hx Tablets 600mg as needed Home /Paty Marinelli, - [employer]OP[employer]ER 05/08 Ondansetron 0000 Hx Tablets 8mg every 6-8 Home /0000 Dispers hours as , Paty, - needed [employer]ILDHO[employer] DEVELOPMENT TE[employer]ER 05/[address] 40mg 30tab take 1 [place] Sodium /0000 s tablet by Pachikara - mouth once [...] Levothyroxine Hx Tablets 50mcg 90tab 1 tab [place] Sodium /0000 s daily in [facility] - the empty , M.D. 05/08 Levothyroxine Hx Tablets 200mcg 90tab 1 tab [place] Sodium /0000 s [facility] , M.D. 05/08 stomach Naproxen Hx Tablets 500mg 60tab twice [place] /0000 s daily [facility] - , M.D. 07/15 Lantus Solostar Hx Solution 100Unit/M 15ml 30 units [place] /0000 Pen-Inject L SC in Am, Kamille Denson, - and 70 M.D.,FACP /26 units SC hs Atorvastatin Hx Tablets 40mg 90tab take one [place] Calcium /0000 s tablet by [place] - mouth , M.D. 05/08 Pictonix 00/00 Hx 40 mg Unknown /0000 daily Novalog 00/00 Hx 10 units Unknown /0000 before - meals 05/08 Levothyroxine 00 Hx Tablets 150mcg 90tab 1 by mouth E03.9 Rosa Sodium /0000 s every day Elliott Schroeder MD 07/17 Humalog Kwikpen Hx Solution 100Unit/M 9ml 4-10 Units E11.65 Pen-Inject L SQ three Schroeder, - times a MD , mealtime, per sliding scale instructio ns Metformin HCL Hx Tablets 500mg 1 by mouth twice a - day 05/08 Naproxen Hx Tablets 375mg 180ta twice a bs day with Schroeder, - food 07/03 Lantus Solostar Hx Solution 100Unit/M 45ml 40 units Pen-Inject L twice Schroeder, - daily 05/22 Medications Administered in Office Medication Date Status Form Strength Qnty SIG Indications Ordering Provider Depomedrol Administered Injection Naveed F 40MG 018 MD Venecia Immunizations CPT Code Status Date Vaccine Lot # [id number] Given 05/01/2018 Influenza Virus Vaccine, Quadrivalent, Split, Preservative Free Vital Signs Date Vital Result Comment 07/26/2018 3:05pm Height 67 inches 5'7" Weight 248.38 lb Heart Rate 95 /min BP Systolic 110 mmHg BP Diastolic 70 mmHg Body Temperature 98.0 F O2 % BldC Oximetry 97 % BMI (Body Mass Index) 38.9 kg/m2 07/21/2018 12:05pm Height 67 inches 5'7" Weight 249.00 lb Heart Rate 106 /min BP Systolic Sitting 110 mmHg BP Diastolic Sitting 80 mmHg Body Temperature 99.9 F O2 % BldC Oximetry 94 % BMI (Body Mass Index) 39.0 kg/m2 07/18/2018 10:19am Height 67 inches 5'7" Weight [...] Test Result H/L Range Note Laboratory test 07/20/2018 [facility] Point of Care 78 mg/dL N 70-100 [address] [place] [address] [phone] CBC Auto Diff 07/20/2018 [facility] White Blood 8.8 10^3/uL N 3.5-10.[address] [place] [address] [phone] Red Blood Count 4.30 10^6/uL N 4.00-5.40 Hemoglobin 12.3 g/dL N 12.0-16.0 Hematocrit 37 % N 35-47 Mean Corpuscular Volume 87 fL N 80-97 Mean Corpuscular Hemoglobin 29 pg N 27-31 Mean Corpuscular HGB Conc 33 g/dL N 31-36 Red Cell Distribution Width 17 % High 10.5-15 Platelet Count 194 10^3/uL N 150-450 Mean Platelet Volume 9.6 fL N 7.4-10.4 Abs Neutrophils 6.3 10^3/uL N 1.5-7.7 Abs Lymphocytes 1.9 10^3/uL N 1.0-4.8 Abs Monocytes 0.4 10^3/uL N 0-0.8 Abs Eosinophils 0.2 10^3/uL N 0-0.6 Abs Basophils 0.1 10^3/uL N 0-0.2 Abs Nucleated RBC 0 10^3/uL Granulocyte % 71.5 % Lymphocyte % 21.6 % Monocyte % 4.5 % Eosinophil % 1.7 % Basophil % 0.7 % Nucleated Red Blood Cells % 0 Basic Metabolic Panel 07/20/2018 [facility] Sodium 140 mmol/L N 135-[address] [place] [address] [phone] Potassium 4.0 mmol/L N 3.5-5.0 Chloride 108 mmol/L N 101-111 Co2 Carbon Dioxide 26 mmol/L N 22-32 Anion Gap 6 mmol/L N 2-11 Glucose 82 mg/dL N 70-100 Blood Urea Nitrogen 13 mg/dL N 6-24 Creatinine 0.71 mg/dL N 0.51-0.95 BUN/Creatinine Ratio 18.3 N 8-20 Calcium 9.3 mg/dL N 8.6-10.3 Egfr Non- 86.4 >60 Egfr 104.6 >60 2 CBC Auto 07/10/2018 [facility] White Blood 14.1 10^3/uL High 3.5-10.[address] [place] [address] [phone] Red Blood Count 4.77 10^6/uL N 4.00-5.40 [...] Blood Cells % 0 Urine Culture And 07/10/2018 [facility] Urine Culture SEE RESULT [address] [place] [address] [phone] Urinalysis Profile 07/10/2018 [facility] Urine Color Yellow [address] [place] [address] [phone] Urine Appearance Cloudy Urine Specific [place] 1.017 N 1.010-1.030 Urine pH 5.0 N [...] Present Abnormal Absent Comp Metabolic Panel 07/10/2018 [facility] Sodium 136 mmol/L N 135-145 [facility] [place] [address] [phone] Potassium 4.6 mmol/L N 3.5-5.0 Chloride 102 [...] Egfr Non- 54.4 >60 Egfr 65.9 >60 4 Urine Drug 07/10/2018 [facility] Amphetamine Ur None Detected None Detect SCR ED & [address] [place] [address] [phone] Barbiturates Urine Screen None Detected None Detect Benzodiazepine Urine Screen None Detected None Detect Urine Cannabinoids Screen None Detected None Detect Urine Cocaine Screen None Detected None Detect Urine Opiates Screen None Detected None Detect Urine Phencyclidine Screen None Detected None Detect 5 Laboratory test 07/10/2018 [facility] Acetaminophen < 15 g/mL 6 finding [address] [place] [address] [phone] Alcohol < 10 mg/dL N <10 Salicylate < 2.50 mg/dL <30 TSH (Thyroid Stim Horm) 9.45 mcIU/mL High 0.34-5.60 Laboratory test 06/26/2018 [facility] Point of Care 98 mg/dL N 70-100 7 finding [address] [facility] [place] [address] [phone] Urinalysis Profile 06/26/2018 [facility] Urine Color Straw [address] [place] [address] [phone] Urine Appearance Clear Urine Specific [place] 1.005 Low 1.010-1.030 Urine pH 6.0 N 5-9 Urine Urobilinogen Negative Negative Urine Ketones Negative Negative Urine Protein Negative Negative Urine Leukocytes Negative Negative Urine Blood Negative Negative Urine Nitrite Negative Negative Urine Bilirubin Negative Negative Urine Glucose Negative Negative Laboratory test 06/26/2018 [facility] Acetaminophen < 15 g/mL 8 finding [address] [place] [address] [phone] Alcohol < 10 mg/dL N <10 Salicylate < 2.50 mg/dL <30 Lactic Acid 0.9 mmol/L N 0.5-2.0 9 Laboratory test 06/26/2018 [facility] Point of 143 mg/dL High 70-100 10 finding [address] [facility] [place] [place] [address] [phone] Laboratory test 06/26/2018 [facility] Point of 72 mg/dL N 70- 100 11 finding 101 [facility] Care Glucose [place], [place] [id number] [phone] Comp Metabolic 06/26/2018 [facility] Sodium 137 mmol/L N 135- 145 Panel 101 [place] [address] [phone] Potassium 4.3 mmol/L N 3.5-5.0 Chloride 105 [...] Egfr Non- 79.0 >60 Egfr 95.6 >60 12 CBC Auto 06/26/2018 [facility] White Blood 10.9 10^3/uL High 3.5-10.[address] [place] [address] [phone] Red Blood Count 4.42 10^6/uL N 4.00-5.40 [...] Blood Cells % 0 Urine Drug 06/26/2018 [facility] Amphetamine Ur None Detected None Detect SCR ED & [address] [place] [address] [phone] Barbiturates Urine Screen None Detected None Detect Benzodiazepine Urine Screen None Detected None Detect Urine Cannabinoids Screen None Detected None Detect Urine Cocaine Screen None Detected None Detect Urine Opiates Screen None Detected None Detect Urine Phencyclidine Screen None Detected None Detect 13 CBC Auto Diff 05/18/2018 [facility] White Blood 10.8 10^3/uL N 3.5-10.[address] [place] [address] [phone] Red Blood Count 4.33 10^6/uL N 4.00-5.40 [...] Cells % 0.1 Comp Metabolic Panel 05/18/2018 [facility] Sodium 139 mmol/L N 135-[address] [place] [address] [phone] Potassium 4.5 mmol/L N 3.5-5.0 Chloride 107 [...] Egfr Non- 81.5 >60 Egfr 98.6 >60 14 Laboratory test 05/18/2018 [facility] Lipase < 10 U/L Low 11.0 -82.[address] [place] [address] [phone] Lactic Acid 1.1 mmol/L N 0.5-2.0 15 Laboratory test 05/15/2018 [facility] C Difficile PCR SEE RESULT [address] [place] [address] [phone] Laboratory test 05/11/2018 [facility] Glucose 342 mg/dL High 70-[address] Confirmatory 00 [place] [address] [phone] Laboratory test 05/11/2018 [facility] Point of Care 402 mg/dL High 70-1 [address] Glucose 00 [place] [address] [phone] Laboratory test 05/11/2018 [facility] Point of Care 426 mg/dL High 70-1 [address] Glucose 00 [place] [address] [phone] CBC Auto Diff 05/10/2018 [facility] White Blood Count 12.0 High 3.5- [address] 10^3/uL 10.8 [place] [address] [phone] Red Blood Count 4.39 10^6/uL N 4.00-5.40 [...] Cells % 0.1 Comp Metabolic Panel 05/10/2018 [facility] Sodium 141 mmol/L N 135-[address] [place] [address] [phone] Potassium 4.9 mmol/L N 3.5-5.0 Chloride 107 [...] Egfr Non- 74.5 >60 Egfr 90.2 >60 19 Laboratory test 05/10/2018 [facility] Lipase < 10 U/L Low 11.0 -82.[address] [place] [address] [phone] C Reactive Protein 6.43 mg/L N <8.01 Lactic Acid 1.2 mmol/L N 0.5-2.0 20 Urine Microalbumin 05/08/2018 [facility] Ur Microalbumin < 15.[address] (mg/L) [place] [address] [phone] Urine Creatinine 224.47 mg/dL Urine Microalbumin/Creatinine TNP <31 21 Laboratory test 05/08/2018 [facility] Hemoglobin A1c 9.7 High 5-7 finding Laboratory test 11/02/2017 [facility] Magnesium 1.9 mg/dL N 1.9-2.[address] [place] [address] [phone] Creatine Kinase(CK) 72 U/L N 10-223 Troponin-I (TnI) 0.03 ng/mL <0.04 Acetaminophen < 15 g/mL 22 Alcohol < 10 mg/dL N <10 Salicylate < 2.50 mg/dL <30 TSH (Thyroid Stim Horm) 1.79 mcIU/mL N 0.34-5.60 Arterial Blood Gas 11/02/2017 [facility] PH Arterial 7.36 N 7.35-7.[address] [place] [address] [phone] Pco2 Arterial 50 mmHg High 35-45 Po2 Arterial 65 mmHg Low 80-100 O2 Saturation Arterial 91.1 % Low 95-98 Base Excess Arterial 2.1 High -2.0-2.0 23 Hco3 Arterial 26.4 mmol/L N 19-31 Comp Metabolic 11/02/2017 [facility] Potassium 4.4 mmol/L N 3.5-5.0 Panel [address] [place] [address] [phone] Chloride 107 mmol/L N 101-111 Co2 Carbon [...] Egfr Non- 70.5 >60 Egfr 90.7 >60 24 Sodium 142 mmol/L N 139-145 Anion Gap 5 mmol/L N 2-11 Urinalysis Profile 11/02/2017 [facility] Urine Color Yellow [address] [place] [address] [phone] Urine Appearance Clear Urine Specific [place] 1.018 N 1.010-1.030 Urine pH 5.0 N 5-9 Urine Urobilinogen Negative Negative Urine Ketones Negative Negative Urine Protein Negative Negative Urine Leukocytes Negative Negative Urine Blood Negative Negative Urine Nitrite Negative Negative Urine Bilirubin Negative Negative Urine Glucose 1+(50 mg/dL) Abnormal Negative Urine Drug 11/02/2017 [facility] Amphetamine Ur None Detected None Detect SCR ED & [address] [place] [address] [phone] Barbiturates Urine Screen None Detected None Detect Benzodiazepine Urine Screen None Detected None Detect Urine Cannabinoids Screen None Detected None Detect Urine Cocaine Screen None Detected None Detect Urine Opiates Screen Presumptive Posi <SEE NOTE> Abnormal None Detect 25 Urine Phencyclidine Screen None Detected None Detect 26 Laboratory test finding 11/02/2017 [facility] Ammonia 37 ?mol/L N 16-53 [address] [place] [address] [phone] Lactic Acid 1.0 mmol/L N 0.5-2.0 27 CBC Auto Diff 11/02/2017 [facility] White Blood 8.5 10^3/uL N 3.5-10.[address] [place] [address] [phone] Red Blood Count 4.40 10^6/uL N 4.0-5.4 [...] Red Blood Cells % 0 Laboratory test 10/02/2017 [facility] CRP High 3.53 mg/L [address] [place] [address] [phone] CBC Auto Diff 10/02/2017 [facility] White Blood Count 10.3 N 3.5-[address] 10^3/uL .8 [place] [address] [phone] Red Blood Count 4.29 10^6/uL N 4.0-5.4 [...] Cells % 0 Comp Metabolic Panel 10/02/2017 [facility] Sodium 136 mmol/L N 133-[address] [place] [address] [phone] Potassium 4.5 mmol/L N 3.5-5.0 Chloride 103 [...] Egfr Non- 70.5 >60 Egfr 90.7 >60 29 Laboratory test 09/28/2017 [facility] Hemoglobin A1c 9.1 High 5-7 finding Laboratory test 09/13/2017 [facility] Point of Care 179 mg/dL High 70-100 [address] [place] [address] [phone] Laboratory test 09/13/2017 [facility] Point of Care 260 mg/dL High 70-100 [address] [place] [address] [phone] Laboratory test 08/29/2017 [facility] Lipase < 10 U/L Low 11.0 -82.[address] [place] [address] [phone] CRP High Sensitivity 1.79 mg/L 32 Troponin-I (TnI) 0.00 ng/mL <0.04 CBC Auto Diff 08/29/2017 [facility] White Blood 9.1 10^3/uL N 3.5-10.[address] [place] [address] [phone] Red Blood Count 4.06 10^6/uL N 4.0-5.4 [...] Blood Cells % 0 Laboratory test 08/29/2017 [facility] B-Type 21 pg/mL [address] [address] Peptide BNP [phone] Comp Metabolic 08/29/2017 [facility] Sodium 136 mmol/L N 133- [address] [place] [address] [phone] Potassium 4.9 mmol/L N 3.5-5.0 Chloride 104 [...] Egfr Non- 47.4 >60 Egfr 60.9 >60 34 CBC Auto Diff 08/26/2017 [facility] White Blood 9.0 10^3/uL N 3.5-10.[address] [place] [address] [phone] Red Blood Count 4.42 10^6/uL N 4.0-5.4 [...] Blood Cells % 0 Laboratory test 08/26/2017 [facility] Troponin-I (TnI) 0.01 ng/ mL <0.04 finding [address] [place] [address] [phone] Comp Metabolic 08/26/2017 [facility] Sodium 139 mmol/L N 133- 145 Panel [address] [place] [address] [phone] Potassium 5.0 mmol/L N 3.5-5.0 Chloride 105 [...] Egfr Non- 62.8 >60 Egfr 80.7 >60 35 Inr/Protime 08/26/2017 [facility] Inr 0.82 N 0.77-1.[address] [place] [address] [phone] Laboratory test 08/26/2017 [facility] Partial 27.7 N 26.0- 36.[address] [place] [address] Time PTT [phone] Laboratory test 08/25/2017 [facility] Point of 157 mg/dL High 70-100 [address] [place] [address] Glucose [phone] Urinalysis 08/25/2017 [facility] Urine Color Yellow Profile [address] [place] [address] [phone] Urine Appearance Clear Urine Specific [place] 1.010 N 1.010-1.030 Urine pH 5.0 N 5-9 Urine Urobilinogen Negative Negative Urine Ketones Negative Negative Urine Protein Negative Negative Urine Leukocytes Negative Negative Urine Blood Negative Negative Urine Nitrite Negative Negative Urine Bilirubin Negative Negative Urine Glucose 3+(>=500 mg/dL) Abnormal Negative Laboratory test 08/25/2017 [facility] Point of 289 mg/dL High 70-100 [address] [place] [address] [phone] Venous Blood 08/25/2017 [facility] Venous Blood 7.48 High 7.33 -7.[address] [place] [address] [phone] Venous Pco2 31 mmHg Low 41-51 Venous Po2 98 mmHg High 35-45 Venous O2 Saturation 95.3 % High 70-80 Venous Blood Base Excess 0.1 N 0-4 38 Venous Bicarbonate Hco3 25.0 mmol/L N 24-28 CBC Auto Diff 08/25/2017 [facility] White Blood 8.9 10^3/uL N 3.5-10.[address] [place] [address] [phone] Red Blood Count 4.33 10^6/uL N 4.0-5.4 [...] Cells % 0 Comp Metabolic Panel 08/25/2017 [facility] Sodium 134 mmol/L N 133-[address] [place] [address] [phone] Potassium 4.8 mmol/L N 3.5-5.0 Chloride 101 [...] Egfr Non- 68.6 >60 Egfr 88.3 >60 39 Laboratory test 08/25/2017 [facility] C Reactive 3.27 mg/L N < 5.00 [address] [place] [address] [phone] Laboratory test 08/23/2017 [facility] Point of Care 224 mg/dL High 70-100 [address] [place] [address] [phone] Laboratory test 08/22/2017 [facility] Glucose 417 mg/dL High 70-[address] [place] [address] [phone] Laboratory test 08/22/2017 [facility] Point of Care > 444 mg/dL High 70-100 [address] [place] [address] [phone] Urinalysis 08/22/2017 [facility] Urine Color Yellow Profile [address] [place] [address] [phone] Urine Appearance Cloudy Urine Specific [place] 1.023 N 1.010-1.030 Urine pH 6.0 N [...] Present Abnormal Absent Urine Culture And 08/22/2017 [facility] Urine Culture SEE RESULT [address] [place] [address] [phone] CBC Auto Diff 08/22/2017 [facility] White Blood 8.9 10^3/uL N 3.5-[address] Count 0.8 [place] [address] [phone] Red Blood Count 4.19 10^6/uL N 4.0-5.4 [...] Cells % 0.1 Venous Blood Gas 08/22/2017 [facility] Venous Blood pH 7.42 N 7.33-7.[address] [place] [address] [phone] Venous Pco2 49 mmHg N 41-51 Venous Po2 36 mmHg N 35-45 Venous O2 Saturation 78.1 % N 70-80 Venous Blood Base Excess 6.3 High 0-4 44 Venous Bicarbonate Hco3 29.4 mmol/L High 24-28 Inr/Protime 08/22/2017 [facility] Inr 0.91 N 0.77-1.[address] [place] [address] [phone] Laboratory test 08/22/2017 [facility] Lactic Acid 1.3 N 0.5- 2.[address] mmol/[place] [address] [phone] Comp Metabolic 08/22/2017 [facility] Sodium 131 Low 133-[address] mmol/[place] [address] [phone] Potassium 4.6 mmol/L N 3.5-5.0 Chloride 98 [...] Egfr Non- 65.2 >60 Egfr 83.8 >60 46 Glucose 543 mg/dL High 70-100 47 Laboratory test 08/22/2017 [facility] Magnesium 2.0 mg/dL N 1.9-2.[address] [place] [address] [phone] Creatine Kinase(CK) 121 U/L N 10-223 C Reactive Protein 4.62 mg/L N < 5.00 48 Troponin-I (TnI) 0.01 ng/mL <0.04 Laboratory test 08/18/2017 [facility] Point of Care 180 mg/dL High 70-100 [address] [place] [address] [phone] Urinalysis 08/17/2017 [facility] Urine Color Yellow Profile [address] [place], [place] [id number] [phone] Urine Appearance Cloudy Urine Specific Yale 1.016 N 1.010-1.030 Urine pH 5.0 N 5-9 Urine Urobilinogen Negative Negative Urine Ketones Negative Negative Urine Protein Negative Negative Urine Leukocytes Negative Negative Urine Blood Negative Negative Urine Nitrite Negative Negative Urine Bilirubin Negative Negative Urine Glucose 3+(>=500 mg/dL) Abnormal Negative Urine Drug 08/17/2017 [facility] Amphetamine Ur None Detected None Detect SCR ED & [address] [place] [address] [phone] Barbiturates Urine Screen None Detected None Detect Benzodiazepine Urine Screen None Detected None Detect Urine Cannabinoids Screen None Detected None Detect Urine Cocaine Screen None Detected None Detect Urine Opiates Screen None Detected None Detect Urine Phencyclidine Screen None Detected None Detect 50 Laboratory test 08/17/2017 [facility] Point of 276 mg/dL High 70-100 [address] [place] [address] [phone] Laboratory test 08/17/2017 [facility] Point of > 444 High 70- 100 [address] Care Glucose mg/dL [place], [place] [phone] Venous Blood 08/17/2017 [facility] Venous Blood 7.36 N 7.33- 7.[address] [place] [address] [phone] Venous Pco2 48 mmHg N 41-51 Venous Po2 29 mmHg Low 35-45 Venous O2 Saturation 59.9 % Low 70-80 Venous Blood Base Excess 1.1 N 0-4 53 Venous Bicarbonate Hco3 24.9 mmol/L N 24-28 CBC Auto Diff 08/17/2017 [facility] White Blood 10.8 10^3/uL N 3.5-10.[address] [place] [address] [phone] Red Blood Count 4.74 10^6/uL N 4.0-5.4 [...] Cells % 0 Comp Metabolic Panel 08/17/2017 [facility] Sodium 133 mmol/L N 133-[address] [place] [address] [phone] Potassium 4.9 mmol/L N 3.5-5.0 Chloride 101 [...] Egfr Non- 72.5 >60 Egfr 93.2 >60 54 Glucose 543 mg/dL High 70-100 55 Laboratory test 08/17/2017 [facility] Acetaminophen < 15 g/mL 56 finding [address] [place] [address] [phone] Alcohol < 10 mg/dL N <10 Salicylate < 2.50 mg/dL <30 TSH (Thyroid Stim Horm) 2.76 mcIU/mL N 0.34-5.60 Lamotrigine (Lamictal) 4.2 g/mL 2.5 - 15.0 57 Laboratory test 08/17/2017 [facility] Point of > 444 mg/dL High 70-100 58 finding [address] [facility] [place] [address] [phone] Laboratory test 08/09/2017 [facility] Point of 266 mg/dL High 70-100 59 finding 101 [facility] [place] [address] [phone] Urinalysis 08/08/2017 [facility] Urine Color Yellow Profile [address] [place] [address] [phone] Urine Appearance Cloudy Urine Specific Yale 1.022 N 1.010-1.030 Urine pH 6.0 N 5-9 Urine Urobilinogen Negative Negative Urine Ketones Negative Negative Urine Protein Negative Negative Urine Leukocytes Negative Negative Urine Blood Negative Negative Urine Nitrite Negative Negative Urine Bilirubin Negative Negative Urine Glucose 3+(>=500 mg/dL) Abnormal Negative Urine Drug 08/08/2017 [facility] Amphetamine Ur None Detected None Detect SCR ED & [address] [place] [address] [phone] Barbiturates Urine Screen None Detected None Detect Benzodiazepine Urine Screen None Detected None Detect Urine Cannabinoids Screen None Detected None Detect Urine Cocaine Screen None Detected None Detect Urine Opiates Screen None Detected None Detect Urine Phencyclidine Screen None Detected None Detect 60 CBC Auto 08/08/2017 [facility] White Blood 11.9 10^3/uL High 3.5-10.[address] [place] [address] [phone] Red Blood Count 4.78 10^6/uL N 4.0-5.4 [...] Cells % 0 Comp Metabolic Panel 08/08/2017 [facility] Sodium 136 mmol/L N 133-145 [address] [place] [address] [phone] Potassium 4.3 mmol/L N 3.5-5.0 Chloride 100 [...] Egfr Non- 74.5 >60 Egfr 95.9 >60 61 Laboratory test 08/08/2017 [facility] Acetaminophen < 15 g/mL [address] [place] [address] [phone] Alcohol < 10 mg/dL N <10 Salicylate < 2.50 mg/dL <30 TSH (Thyroid Stim Horm) 2.67 mcIU/mL N 0.34-5.60 Lamotrigine (Lamictal) 2.5 g/mL 2.5 - 15.0 63 Laboratory test 08/04/2017 [facility] Point of 258 mg/dL High 70-100 [address] [place] [address] [phone] Laboratory test 08/04/2017 [facility] Point of 175 mg/dL High 70-100 65 finding [address] [facility] [place] [address] [phone] Laboratory test 08/04/2017 [facility] Point of 284 mg/dL High 70-100 66 finding [address] [facility] [place] [address] [phone] CBC Auto Diff 08/03/2017 [facility] White Blood 10.9 High 3.5- 10.[address] Count 10^3/[place] [address] [phone] Red Blood Count 4.61 10^6/uL N 4.0-5.4 [...] Cells % 0 Comp Metabolic Panel 08/03/2017 [facility] Sodium 132 mmol/L Low 133-145 [address] [place] [address] [phone] Potassium 4.6 mmol/L N 3.5-5.0 Chloride 98 [...] Egfr 87.1 >60 67 Laboratory test 08/03/2017 [facility] Acetaminophen < 15 g/mL 68 finding [address] [place] [address] [phone] Alcohol < 10 mg/dL N <10 Salicylate < 2.50 mg/dL <30 TSH (Thyroid Stim Horm) 0.60 mcIU/mL N 0.34-5.60 Urinalysis Profile 08/03/2017 [facility] Urine Color Yellow [address] [place] [address] [phone] Urine Appearance Cloudy Urine Specific Yale 1.012 N 1.010-1.030 Urine pH 5.0 N [...] Crystals Present Abnormal Absent Urine Drug 08/03/2017 [facility] Amphetamine Ur None Detected None Detect SCR ED & [address] [place] [address] [phone] Barbiturates Urine Screen None Detected None Detect Benzodiazepine Urine Screen None Detected None Detect Urine Cannabinoids Screen None Detected None Detect Urine Cocaine Screen None Detected None Detect Urine Opiates Screen None Detected None Detect Urine Phencyclidine Screen None Detected None Detect 69 Urine Culture And 08/03/2017 [facility] Urine SEE RESULT [address] [place] [address] [phone] Laboratory test 08/02/2017 [facility] Troponin-I 0.01 ng/mL < 0.[address] (TnI) [place] [address] [phone] CBC Auto Diff 08/02/2017 [facility] White Blood 13.8 High 3.5- [address] Count 10^3/uL 0.8 [place] [address] [phone] Red Blood Count 4.64 10^6/uL N 4.0-5.4 [...] Cells % 0 Comp Metabolic Panel 08/02/2017 [facility] Sodium 133 mmol/L N 133-[address] [place] [address] [phone] Potassium 4.7 mmol/L N 3.5-5.0 Chloride 101 [...] Egfr Non- 76.7 >60 Egfr 98.7 >60 71 Laboratory test 08/02/2017 [facility] Troponin-I 0.03 <0.[address] (TnI) ng/mL [place], [place] [address] [phone] Urine Culture And 08/01/2017 [facility] Urine Culture SEE 72, Sensitivities [address] RESULT 73 [place] [address] BELOW [phone] Laboratory test 06/13/2017 [facility] Hemoglobin 9.2 High 5-7 finding A1c Laboratory test 06/03/2017 [facility] Point of Care 184 mg/dL High 70-100 [address] [place] [address] [phone] Laboratory test 06/03/2017 [facility] Point of Care 256 mg/dL High 70-100 [address] [place] [address] [phone] Laboratory test 06/03/2017 [facility] Point of Care 329 mg/dL High 70-100 [address] [place] [address] [phone] Laboratory test 06/03/2017 [facility] Point of Care 384 mg/dL High 70-100 [address] [place] [address] [phone] Laboratory test 06/03/2017 [facility] Point of Care > 444 High 70-100 [address] Glucose mg/dL [place], [place] [address] [phone] Laboratory test 06/03/2017 [facility] Point of Care > 444 High 70-100 [address] Glucose mg/[place] [address] [phone] 1 Exhibitions And Collections Manager: [id number] 2 Because ethnic data is not always readily [...] 15-29 5 Kidney failure <15 (or dialysis) 3 SEE RESULT BELOW Name: ANGELINACECILIO Cameron : [address]: Sendy Mcdowell MD Acct: [id number] Unit: [id number] AGE: 53 Location: ED Re07/10/18 SEX: F Status: DEP ER SPEC: [id number] ANKUR: 07/10/18-[address]: Sendy Mcdowell MD REQ: [id number] RECD: 07/10/18 STATUS: TASHA BARFIELD DR: Chapo Aguila MD _ SOURCE: URINE [facility]: ORDERED: Urine Culture Procedure Result Reported Site Urine Culture Final 07/12/18- 0845 ML No growth of clinically significant organisms * ML - Main Lab . END OF REPORT DEPARTMENT OF PATHOLOGY, [address] [place] [address] Tay Gamboa M.D. Director [facility] # [id number] 4 Because ethnic data is not always [...] 5 Kidney failure <15 (or dialysis) 5 The urine specimen was tested at the listed cutoffs: Drug class test level (ng/mL) Amphetamines 500 Barbiturates 200 Benzodiazepine metabolites 200 Cocaine metabolites 150 Cannabinoids 50 Opiates 300 Pcp 25 Specimen was received without chain of custody. Results should be used for medical purposes only. 6 Therapeutic concentration: <50 ug/mL Toxic concentration: >120 ug/mL 7 Exhibitions And Collections Manager: [id number] 8 Therapeutic concentration: <50 ug/mL Toxic concentration: >120 ug/mL 9 [place] Severe Sepsis and Septic Shock Management Bundle Measure requires all lactic acids initially measuring >2.0 mmol/L be repeated. 10 Exhibitions And Collections Manager: [id number] 11 Exhibitions And Collections Manager: [id number] 12 Because ethnic data is not always [...] 5 Kidney failure <15 (or dialysis) 13 The urine specimen was tested at the listed cutoffs: Drug class test level (ng/mL) Amphetamines 500 Barbiturates 200 Benzodiazepine metabolites 200 Cocaine metabolites 150 Cannabinoids 50 Opiates 300 Pcp 25 Specimen was received without chain of custody. Results should be used for medical purposes only. 14 Because ethnic data is not always [...] 5 Kidney failure <15 (or dialysis) 15 [facility] Severe Sepsis and Septic Shock Management Bundle Measure requires all lactic acids initially measuring >2.0 mmol/L be repeated. 16 SEE RESULT BELOW Name: CECILIO ALFARO : [address]: Danya Marquez MD Acct: [id number] Unit: [id number] AGE: 52 Location: [facility] Re05/15/18 SEX: F Status: REG REF SPEC: [id number] ANKUR: 05/15/[address] [facility] [address]: Danya Marquez MD REQ: [id number] RECD: 05/15/18 STATUS: COMP _ SOURCE: STOOL SPDESC: ORDERED: C. diff PCR Procedure Result Reported Site Stool Specimen Description Final 05/15/18- 1306 ML Stool Color [place] Stool Form Semi-formed Stool Consistency Firm C. difficile PCR Final 05/15/18- 1306 ML Test not performed * ML - Main Lab . END OF REPORT DEPARTMENT OF PATHOLOGY, [address] [place] [address] Tay Gamboa M.D. Director [facility] # [id number] 17 Exhibitions And Collections Manager: [id number] 18 Exhibitions And Collections Manager: [id number] 19 Because ethnic data is not always [...] 5 Kidney failure <15 (or dialysis) 20 [facility] Severe Sepsis and Septic Shock Management Bundle Measure requires all lactic acids initially measuring >2.0 mmol/L be repeated. 21 Unable to calculate due to low microalbumin 22 Therapeutic concentration: <50 ug/mL Toxic concentration: >120 ug/mL 23 Reference ranges based on room air. 24 Because ethnic data is not always [...] 5 Kidney failure <15 (or dialysis) 25 Presumptive Positive Presumptive positive results are unconfirmed. 26 The urine specimen was tested at the listed cutoffs: Drug class test level (ng/mL) Amphetamines 500 Barbiturates 200 Benzodiazepine metabolites 200 Cocaine metabolites 150 Cannabinoids 50 Opiates 300 Pcp 25 Specimen was received without chain of custody. Results should be used for medical purposes only. 27 [facility] Severe Sepsis and Septic Shock Management Bundle Measure requires all lactic acids initially measuring >2.0 mmol/L be repeated. 28 Low risk: <1.00 Average risk: 1.00-3.00 High risk: >3.00 29 Because ethnic data is not always [...] 5 Kidney failure <15 (or dialysis) 30 Exhibitions And Collections Manager: [id number] 31 Exhibitions And Collections Manager: [id number] 32 Low risk: <1.00 Average risk: 1.00-3.00 High risk: >3.00 33 >100 to <200 pg/mL: likely compensated congestive heart failure (CHF) 200 to 400 pg/mL: likely moderate CHF >400 pg/mL: likely moderate to severe CHF 34 Because ethnic data is not always [...] 5 Kidney failure <15 (or dialysis) 35 Because ethnic data is not always readily [...] 15-29 5 Kidney failure <15 (or dialysis) 36 Exhibitions And Collections Manager: [id number] 37 Exhibitions And Collections Manager: [id number] 38 Reference ranges based on room air. 39 Because ethnic data is not always [...] 5 Kidney failure <15 (or dialysis) 40 Acute inflammation: >10.00 41 Exhibitions And Collections Manager: [id number] 42 Exhibitions And Collections Manager: [id number] 43 SEE RESULT BELOW Name: CECILIO ALFARO : [address]: Violeta Yusuf MD Acct: [id number] Unit: [id number] AGE: 52 Location: ED Re08/22/17 SEX: F Status: DEP ER SPEC: [id number] ANKUR: 08/22/[address] [facility] [address]: Violeta Yusuf MD REQ: [id number] RECD: 08/22/17 STATUS: TASHA BARFIELD DR: Chapo Aguila MD _ SOURCE: URINE [facility]: ORDERED: Urine Culture Procedure Result Reported Site Urine Culture Final 08/23/17- 1607 ML Mixed seema; possible contamination. Suggest resubmission. * ML - MAIN LAB ([facility]) . END OF REPORT * ML=Testing performed at Main Lab DEPARTMENT OF PATHOLOGY, [address] [place] [address] Tay Gamboa M.D. Director [facility] # [id number] 44 Reference ranges based on room air. 45 [facility] Severe Sepsis and Septic Shock Management Bundle Measure requires all lactic acids initially measuring >2.0 mmol/L be repeated. 46 Because ethnic data is not always readily [...] 15-29 5 Kidney failure <15 (or dialysis) 47 Critical Result [id number] Called to [id number] at: 21:48:40 by:[id number] Read back by:[id number] 48 Acute inflammation: >10.00 49 Exhibitions And Collections Manager: [id number] 50 The urine specimen was tested at the listed cutoffs: Drug class test level (ng/mL) Amphetamines 500 Barbiturates 200 Benzodiazepine metabolites 200 Cocaine metabolites 150 Cannabinoids 50 Opiates 300 Pcp 25 Specimen was received without chain of custody. Results should be used for medical purposes only. 51 Exhibitions And Collections Manager: [id number] 52 Exhibitions And Collections Manager: [id number] 53 Reference ranges based on room air. 54 Because ethnic data is not always readily [...] 15-29 5 Kidney failure <15 (or dialysis) 55 Critical Result [id number] Called to [id number] at: 18:00:03 by:[id number] Read back by:[id number] 56 Therapeutic concentration: <50 ug/mL Toxic concentration: >120 ug/mL 57 ADDITIONAL INFORMATION This test was developed and its performance characteristics determined by [facility] in a manner consistent with CLIA requirements. This test has not been cleared or approved by the U.S. Food and Drug Administration. Test Performed by: [facility] [address] [place] [address] 58 Exhibitions And Collections Manager: [id number] 59 Exhibitions And Collections Manager: [id number] 60 The urine specimen was tested at the listed cutoffs: Drug class test level (ng/mL) Amphetamines 500 Barbiturates 200 Benzodiazepine metabolites 200 Cocaine metabolites 150 Cannabinoids 50 Opiates 300 Pcp 25 Specimen was received without chain of custody. Results should be used for medical purposes only. 61 Because ethnic data is not always readily [...] 15-29 5 Kidney failure <15 (or dialysis) 62 Therapeutic concentration: <50 ug/mL Toxic concentration: >120 ug/mL 63 ADDITIONAL INFORMATION This test was developed and its performance characteristics determined by [facility] in a manner consistent with CLIA requirements. This test has not been cleared or approved by the U.S. Food and Drug Administration. Test Performed by: [facility] [address] [place] [address] 64 Exhibitions And Collections Manager: [id number] 65 Exhibitions And Collections Manager: [id number] 66 Exhibitions And Collections Manager: [id number] 67 Because ethnic data is not always [...] <50 ug/mL Toxic concentration: >120 ug/mL 69 The urine specimen was tested at the listed cutoffs: Drug class test level (ng/mL) Amphetamines 500 Barbiturates 200 Benzodiazepine metabolites 200 Cocaine metabolites 150 Cannabinoids 50 Opiates 300 Pcp 25 Specimen was received without chain of custody. Results should be used for medical purposes only. 70 SEE RESULT BELOW Name: CECILIO ALFARO : [address]: Sendy Mcdowell MD Acct: [id number] Unit: [id number] AGE: 52 Location: ED Re08/03/17 SEX: F Status: REG ER SPEC: [id number] ANKUR: 08/03/[address] [facility] [address]: Sendy Mcdowell MD REQ: [id number] RECD: 08/03/17 STATUS: TASHA BARFIELD DR: Chapo Aguila MD _ SOURCE: URINE SPDESC: ORDERED: Urine Culture Procedure Result Reported Site Urine Culture Final 01/05/18- 1225 ML No growth of clinically significant organisms * ML - [facility] ([facility]) . END OF REPORT * ML=Testing performed at Main Lab DEPARTMENT OF PATHOLOGY, [address] [place] [address] Tay Gamboa M.D. Director [facility] # [id number] 71 Because ethnic data is not always readily [...] 15-29 5 Kidney failure <15 (or dialysis) 72 [id number] SEE RESULT BELOW Name: CECILIO ALFARO : [address]: Any Ramirez MD Acct: [id number] Unit: [id number] AGE: 52 Location: [facility] Re08/01/17 SEX: F Status: DEP ER SPEC: [id number] ANKUR: 08/01/17-[address]: Any Ramirez MD REQ: [id number] RECD: 08/02/17-1104 STATUS: TASHA BARFIELD DR: Chapo Aguila MD _ SOURCE: URINE SPDESC: ORDERED: Urine Culture COMMENTS: [id number] Procedure Result Reported Site Urine Culture Final 08/03/17- 1251 ML Mixed seema; possible contamination. Suggest resubmission. * ML - MAIN LAB ([facility]) . END OF REPORT * ML=Testing performed at Main Lab DEPARTMENT OF PATHOLOGY, [address] [place] [address] Tay Gamboa M.D. Director [facility] # [id number] 74 Exhibitions And Collections Manager: [id number] 75 Exhibitions And Collections Manager: [id number] 76 Exhibitions And Collections Manager: [id number] 77 Exhibitions And Collections Manager: [id number] 78 Exhibitions And Collections Manager: [id number] 79 Exhibitions And Collections Manager: [id number] Procedures Date Code Description Status 11/03/2017 13361 EKG, Interpretation Only Completed 10/26/2017 [id number] Diabetic Retinal Eye Exam Completed 10/11/2017 00421 Inject/Drain Joint/Bursa Major W/O US Completed 06/03/2017 23676 Carpal Tunnel Release Completed 06/03/2017 25891 Carpal Tunnel Release Completed 05/01/2016 [id number] Mammogram Completed 04/06/2016 60095 EEG Recording Awake & Drowsy Completed 04/03/2016 28247 EKG, Interpretation Only Completed 04/29/2015 70679 EEG Recording Awake & Drowsy Completed 04/16/2012 49653 EKG, Interpretation Only Completed 04/16/2012 19188 EKG, Interpretation Only Completed Encounters Type Date Location Provider Dx Diagnosis Office Visit 07/18/2018 Lainey Hodge and Moreno Sandoval MD 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 E11.65 Type 2 diabetes mellitus with hyperglycemia E03.9 Hypothyroidism, unspecified R15.2 Fecal urgency Office Visit 07/04/2018 1:00p Sulphurba Hodge and Moreno Sandoval 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 E11.65 Type 2 diabetes mellitus with hyperglycemia E03.9 Hypothyroidism, unspecified R19.7 Diarrhea, unspecified T50.902D Poisoning by unsp drug/meds/biol subst, self-harm, subs Office Visit 07/03/2018 10:00a [facility] Internal Rosa Schroeder, E11.65 Type 2 diabetes Medicine - MD mellitus with [address] hyperglycemia I10 Essential (primary) hypertension X78.8xxA Intentional self-harm by other sharp object, init encntr F17.210 Nicotine dependence, cigarettes, uncomplicated R15.1 Fecal smearing M65.842 Other synovitis and tenosynovitis, left hand M54.41 Lumbago with sciatica, right side E03.9 Hypothyroidism, unspecified Office Visit 06/28/2018 [facility]opedic Marline M65.841 Other synovitis and 1:15p Services Of Adelina Duarte tenosynovitis, C.M.A. right hand M54.41 Lumbago with sciatica, right side Office Visit 05/22/2018 2:30p [facility] Internal Rosa Schroeder, R19.7 Diarrhea, Medicine - [place] MD unspecified Rd L08.1 Erythrasma R15.1 Fecal smearing Office Visit 05/15/2018 1:30p [facility] Internal Rosa Schroeder, R19.7 Diarrhea, Medicine - [place] MD unspecified Rd F17.210 Nicotine dependence, cigarettes, uncomplicated J45.909 Unspecified asthma, uncomplicated E11.65 Type 2 diabetes mellitus with hyperglycemia Z91.81 History of falling E11.9 Type 2 diabetes mellitus without complications Office Visit 05/08/2018 9:30a [facility] Internal Rosa Schroeder, E11.65 Type 2 diabetes Medicine - MD mellitus with [address] hyperglycemia R15.1 Fecal smearing I10 Essential (primary) hypertension R94.5 Abnormal results of liver function studies F33.3 Major depressv disorder, recurrent, severe w psych symptoms [facility] G92 Toxic encephalopathy 11:25a Assmatthieu drake M.D. Hospitalists T50.904A Poisoning by unsp drug/meds/biol subst, undetermined, init F60.3 Borderline personality disorder R40.2432 Kriss coma scale score 3-8, EMR Office Visit 11/03/2017 11:23a Intensivists Ishmael Dumont G92 Toxic encephalopathy Cheng D.O. F60.3 Borderline personality disorder T50.904A Poisoning [...] of right shoulder C.M.A. Office Visit 10/13/2017 [facility] Internal Chapo E11.65 Type 2 diabetes 1:40p Medicine - [place] Ayla, mellitus with Rd M.D. hyperglycemia Z12.31 Encntr screen mammogram for malignant neoplasm of breast Z12.11 Encounter for screening for malignant neoplasm of colon Office Visit 10/11/2017 Orthopedic Naveed Lutz M75.31 Calcific tendinitis 1:30p Services Of MD Venecia of right shoulder C.M.A. Office Visit 09/28/2017 [facility] Internal Chapo E11.65 Type 2 diabetes 1:20p Medicine - Ayla, mellitus with Baker M.D. hyperglycemia M79.645 Pain in left finger(s) E03.9 Hypothyroidism, unspecified Office Visit 09/19/2017 [facility] Internal Chapo E11.65 Type 2 diabetes 2:40p Medicine Elliott Aguila M.D. 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 mellitus without [address] complications M51.16 Intervertebral disc disorders w radiculopathy, lumbar region F31.31 Bipolar disorder, current episode depressed, mild E66.01 Morbid (severe) obesity due to excess calories Z68.41 Body mass index (BMI) 40.0-44.9, adult Office Visit 06/13/2017 3:20p [facility] [place] E11.9 Type 2 diabetes Jaylene [...] dependence, cigarettes, uncomplicated B37.9 Candidiasis, unspecified Z79.4 custodial (current) use of insulin Office Visit 05/26/2017 Orth[facility] Marline G56.02 Carpal tunnel 8:45a [facility] M.[facility]. 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 4-Aminophenol Hospitalists derivatives, self-harm, init E11.9 Type 2 diabetes mellitus without complications F79 Unspecified intellectual disabilities Office Visit 05/20/2016 [facility] T39.1x2A Poisoning by 3:24p Assmatthieu drake M.D. 4-Aminophenol Hospitalists derivatives, self-harm, init E11.9 Type 2 diabetes mellitus without complications F79 Unspecified intellectual disabilities Office Visit 05/19/2016 [facility] T39.1x2A Poisoning by 3:24p Assmatthieu drake M.D. 4-Aminophenol Hospitalists derivatives, self-harm, init E11.9 Type 2 diabetes mellitus without complications F79 Unspecified intellectual disabilities Office Visit 05/18/2016 [facility] Sherita T39.1x2A Poisoning by 3:23p Assoc,matthieu Lui M.D. 4-Aminophenol Hospitalists derivatives, self-harm, init E11.9 Type 2 diabetes mellitus without complications F79 Unspecified intellectual disabilities Office Visit 05/17/2016 [facility] Ml T39.1x2A Poisoning by 3:23p Assoc,matthieu Mosquera M.D. 4-Aminophenol Hospitalists derivatives, self-harm, init E11.9 Type 2 diabetes mellitus without complications F79 Unspecified intellectual disabilities Office Visit 05/16/2016 [facility] Ml T39.1x2A Poisoning by 3:22p Assvidal,matthieu Mosquera M.D. 4-Aminophenol Hospitalists derivatives, self-harm, init E11.9 Type 2 diabetes mellitus without complications F79 Unspecified intellectual disabilities Office Visit 05/15/2016 [facility] T39.1x2A Poisoning by 3:22p Assoc,matthieu Mosquera M.D. 4-Aminophenol Hospitalists derivatives, self-harm, init E11.9 Type 2 diabetes mellitus without complications F79 Unspecified intellectual disabilities Office Visit 05/14/2016 [facility] Yaar T39.1x2A Poisoning by 3:22p Assoc,matthieu Daly D.O. 4-Aminophenol Hospitalists derivatives, self-harm, init E11.9 Type 2 diabetes mellitus without complications F79 Unspecified intellectual disabilities Office Visit 05/13/2016 [facility] Yara T39.1x2A Poisoning by 3:21p Assoc,matthieu Daly D.O. 4-Aminophenol Hospitalists derivatives, self-harm, init E11.9 Type 2 diabetes mellitus without complications F79 Unspecified intellectual disabilities [facility] T[facility].1x[facility]A Poisoning by 3:21p Assoc,matthieu Daly D.O. 4-Aminophenol Hospitalists derivatives, self-harm, init E11.9 Type 2 diabetes mellitus without complications F79 Unspecified intellectual disabilities Office 05/11/2016 [facility] T39.1x2A Poisoning by Visit 3:20p Assoc,RAÚL Brewer 4-Aminophenol Hospitalists derivatives, self-harm, init E11.9 Type 2 diabetes mellitus without complications F79 Unspecified intellectual disabilities Office Visit 05/03/2016 [facility] Anu R73.9 Hyperglycemia, 11:09a Assoc,matthieu To, DO unspecified Hospitalists J40 Bronchitis, not specified as acute or chronic G89.4 Chronic pain syndrome Office Visit 04/07/2016 3:52p [facility] Ml R40.4 Transient Assoc,matthieu Mosquera M.D. alteration of Hospitalists awareness E13.9 Other specified diabetes mellitus without complications F79 Unspecified intellectual disabilities Z91.19 Patient's noncompliance w oth medical treatment and regimen Office Visit 04/06/2016 3:52p [facility] Ml R40.4 Transient Assoc,matthieu Mosquera M.D. alteration of Hospitalists awareness E13.9 Other specified diabetes mellitus without complications F79 Unspecified intellectual disabilities Z91.19 Patient's noncompliance w oth medical treatment and regimen Office Visit 04/05/2016 3:51p [facility] Yara R40.4 Transient Assoc,matthieu Daly, D.O. alteration of Hospitalists awareness E13.9 Other specified diabetes mellitus without complications F79 Unspecified intellectual disabilities Z91.19 Patient's noncompliance w oth medical treatment and regimen Office Visit 04/04/2016 3:51p [facility] Yara R40.4 Transient Assoc,matthieu Daly, D.O. alteration of Hospitalists awareness E13.9 Other specified diabetes mellitus without complications F79 Unspecified intellectual disabilities Z91.19 Patient's noncompliance w oth medical treatment and regimen Office Visit 04/03/2016 3:50p [facility] Rosi R40.4 Transient Assoc,matthieu Grant, LUZ alteration of Hospitalists awareness E13.9 Other specified diabetes mellitus without complications F79 Unspecified intellectual disabilities Z91.19 Patient's noncompliance w oth medical treatment and regimen Office Visit 10/01/2015 10:08a [facility] Gray M54.31 Sciatica, right Assoc,matthieu Conn, N.PJarred side Hospitalists E11.9 Type 2 diabetes mellitus without complications F60.3 Borderline personality disorder Office Visit 09/28/2015 10:06a [facility] Ml M54.31 Sciatica, right Assoc,matthieu Mosquera M.D. side Hospitalists E11.9 Type 2 diabetes mellitus without complications Office Visit 04/24/2015 [facility] Conner 276.1 Hyposmolality & Or 1:31p Assmatthieu drake M.D. Hyponatremia Hospitalists 296.7 Bipolar I Disorder Current NOS 301.83 Borderline Personality Disorder Office Visit 04/23/2015 [facility] Conner 276.1 Hyposmolality & Or 1:30p Assmatthieu drake M.D. Hyponatremia Hospitalists 250.00 Diabetes Mellitus W/O Compl Type II Or Unspec Controlled 296.7 Bipolar I Disorder Current NOS 301.83 Borderline Personality Disorder Office Visit 04/22/2015 [facility] Quique 276.1 Hyposmolality & Or 1:29p Assmatthieu drkae M.D. Hyponatremia Hospitalists 250.00 Diabetes Mellitus W/O Compl Type II Or Unspec Controlled 301.83 Borderline Personality Disorder Office Visit 04/21/2015 [facility] Gray 276.1 Hyposmolality & Or 1:28p Assocmatthieu N.PJarred Hyponatremia Hospitalists 296.7 Bipolar I Disorder Current NOS 301.83 Borderline Personality Disorder 250.00 Diabetes Mellitus W/O Compl Type II Or Unspec Controlled Office Visit 11/27/2014 [facility] Sherita 244.9 Hypothyroidism 8:42a Assmatthieu drake M.D. Other Unspec Hospitalists 250.02 Diabetes Mellitus W/O Compl Type II Or Unspec Type Uncontrol 301.83 Borderline Personality Disorder Office Visit [facility] 969.09 Poisoning By Other 4:07p Assocmatthieu D.O. Antidepressants Hospitalists 300.9 Nonpsychotic Disorders NOS 311 Depressive Disorder Not Elsewhere Spec Office 04/[facility]2012 [facility]69.09 Poisoning By Other Visit 4:35p Assmatthieu drake M.D. Antidepressants Hospitalists 300.9 Nonpsychotic Disorders NOS 311 Depressive Disorder Not Elsewhere Spec V11.1 History Personal Affective Disorder Office Visit 10/18/2009 1:00a [facility] Jase Jesus, 789.00 Pain Abdominal Assocmatthieu M.D. Unspec Site Hospitalists 787.03 Vomiting Alone 790.29 Other Abnormal Glucose 250.02 Diabetes Mellitus W/O Compl Type II Or Unspec Type Uncontrol Office Visit 10/17/2009 3:00a [facility] Jase Jesus, 790.29 Other Abnormal Assoc,matthieu Sahu Glucose Hospitalists 789.00 Pain Abdominal Unspec Site 295.70 Schizoaffective Disorder NOS 401.9 Hypertension Unspec Office Visit 10/16/2009 12:15a [facility] Sherita 790.29 Other Abnormal Assoc,matthieu Marshall M.D. Glucose Hospitalists 296.80 Bipolar Disorder NOS Plan of Treatment Future Appointment(s):10/17/2018 2:40 pm - Moreno Sandoval MD at [facility]10/02/2018 3:00 pm - Rosa Schroeder MD at [facility] - [address]07/26/2018 - Lawrence Denson M.D.,[id number] Bronchitis, not specified as acute or chronicComments:Begin taking Azithromycin and Arnuity Ellipta as prescribed. Continue using Ventolin as needed. Complete pulmonary function test as discussed.
--- NOTE | 2018-08-19 20:34 | ED ---
Psychiatric Complaint - HPI Summary HPI Summary: This patient is a 53 year old F brought in by ambulance to [facility] after swallowing three AAA batteries around 1600 this evening. Patient denies current SI and abdominal pain. Patient reports history of bipolar disorder and a recent increase in dosage for her psych medications. She reports recent menopause that effects her mental health. Patient has a history of swallowing batteries. - History Of Current Complaint Chief Complaint: EDGeneral Time Seen by Provider: 08/19/18 20:21 Hx Obtained From: Patient Hx Last Menstrual Period: "last month" Onset/Duration: Sudden Onset Character: Depressed Aggravating Factor(s): Other - medication change, menopause Related History: Positive For: Prior Psychiatric Issues Has Suicidal: Reports: Has Prior Attempt(s) - Allergies/Home Medications Allergies/Adverse Reactions: Allergies Allergy/AdvReac Type Severity Reaction Status Date / Time ciprofloxacin Allergy Dizziness Verified 08/19/18 20:23 latex Allergy Rash Verified 08/19/18 20:23 lithium Allergy See Comment Verified 08/19/18 20:23 lurasidone [From Latuda] Allergy Altered Verified 08/19/18 20:23 Mental Status nalbuphine Allergy Unknown Verified 08/19/18 20:23 Reaction Details naldemedine Allergy Unknown Verified 08/19/18 20:23 Reaction Details Penicillins Allergy Rash Verified 08/19/18 20:23 perphenazine Allergy Unknown Verified 08/19/18 20:23 Reaction Details Sulfa (Sulfonamide Allergy Hives Verified 08/19/18 20:23 Antibiotics) tramadol Allergy Altered Verified 08/19/18 20:23 Mental Status ENVIRONMENTAL Allergy Mild SINUS Uncoded 08/19/18 20:23 Home Medications: Home Medications Polyethylene Glycol 3350 [Miralax] 17 gm PO BID 08/19/18 [History Confirmed ] PMH/Surg Hx/FS Hx/Imm Hx Endocrine/Hematology History: Reports: Hx Diabetes, Hx Thyroid Disease, Other Endocrine/Hematological Disorders - Chronic pancreatitis Denies: Hx Anticoagulant Therapy Cardiovascular History: Reports: Hx Hypertension - NO MEDICATION FOR PER PATIENT , Other Cardiovascular Problems/Disorders - HX OF PSVT 04/2008 Denies: Hx Pacemaker/ICD Respiratory History: Reports: Hx Asthma, Hx Seasonal Allergies, Hx Sleep Apnea - HX OF IN THE PAST Denies: Hx Chronic Bronchitis, Hx Chronic Obstructive Pulmonary Disease (COPD ), Hx Cystic Fibrosis, Hx Lung Cancer, Hx Pleural Effusion, Hx Pneumonia, Hx Pulmonary Edema, Hx Pulmonary Embolism, Other Respiratory Problems/Disorders GI History: Reports: Hx Gall Bladder Disease, Hx Gastroesophageal Reflux Disease - ON MEDICATION FOR, Hx Gastrointestinal Bleed, Hx Irritable Bowel, Other GI Disorders - HX OF pancreatitis- STATES LAST ABOUT 2 WEEKS AGO- STATES SLIGHT CASE Denies: Hx Ulcer History: Reports: Other Problems/Disorders - urinary incontinence Denies: Hx Dialysis, Hx Renal Disease Musculoskeletal History: Reports: Hx Arthritis, Hx Back Problems, Other Musculoskeletal History - GEN MUSCULOSKELETAL PAIN Denies: Hx Rheumatoid Arthritis, Hx Bursitis, Hx Congenital Bone Abnormalities, Hx Fibromyalgia, Hx Gout, Hx Orthopedic Injury, Hx Osteoporosis, Hx Scoliosis, Hx Tendonitis Sensory History: Reports: Hx Vision Problem Denies: Hx Cataracts, Hx Contacts or Glasses, Hx Eye Injury, Hx Eye Prosthesis, Hx Glaucoma, Hx Macular Degeneration, Hx Hearing Aid, Other Sensory Impairments Opthamlomology History: Reports: Hx Vision Problem Denies: Hx Cataracts, Hx Contacts or Glasses, Hx Eye Injury, Hx Eye Prosthesis, Hx Glaucoma, Hx Macular Degeneration, Other Sensory Impairments Neurological History: Reports: Hx Developmental Delay - intellectual disability , Hx Seizures - STATES WITH ALLERGIC REACTION TO TRAMADOL Denies: Hx Dementia, Hx Headaches, Other Neuro Impairments/Disorders Psychiatric History: Reports: Hx Anxiety - ON MEDICATION FOR, Hx Depression - ON MEDICATION FOR, Hx Post Traumatic Stress Disorder, Hx Inpatient Treatment, Hx Community Mental Health Tx, Hx Bipolar Disorder - pt manic, Hx Suicide Attempt - past med overdoses, Hx of Violent Episodes Against Others, Other Psychiatric Issues/Disorders - PSYCHOSIS NOS, HX OF PTSD, SCHIZOAFFECTIVE DISORDER, BORDERLINE PERSONALITY Denies: Hx Attention Deficit Hyperactivity Disorder, Hx Eating Disorder, Hx Panic Disorder, Hx Schizophrenia, Hx Substance Abuse - Cancer History Cancer Type, Location and Year: None reported - Surgical History Surgery Procedure, Year, and Place: 2011-CATARACT EXTRACTION. GALLBLADDER REMOVED Hx Anesthesia Reactions: No - Immunization History Date of Tetanus Vaccine: Unknown Date of Influenza Vaccine: 04/2017 Infectious Disease History: No Infectious Disease History: Denies: Hx Clostridium Difficile, Hx Hepatitis, Hx Human Immunodeficiency Virus (HIV), Hx of Known/Suspected MRSA, Hx Shingles, Hx Tuberculosis, Hx Known/ Suspected VRE, Hx Known/Suspected VRSA, History Other Infectious Disease, Traveled Outside the [place] in Last 30 Days - Family History Known Family History: Positive: Other - Anxiety and depression, [place] - father Negative: Cardiac Disease, Hypertension, Diabetes Family History: Depression and anxiety - Social History Alcohol Use: None Hx Substance Use: Yes Substance Use Type: Reports: None Hx Tobacco Use: Yes Smoking Status (MU): Current Some Day Smoker Type: Cigarettes Amount Used/How Often: 1/2 PPD FOR LAST 30 DAYS, NO OTHER TOBACCO Length of Time of Smoking/Using Tobacco: 2 year ago Have You Smoked in the Last Year: Yes - Patient has smoked within the last 30 days Review of Systems Negative: Abdominal Pain Positive: Depressed, Other - swallowed three AAA batteries All Other Systems Reviewed And Are Negative: Yes Physical Exam - Summary Physical Exam Summary: Appearance: Well appearing, no pain distress Skin: warm, dry, reflects adequate perfusion Head/face: normal Eyes: EOMI, JENNIFER ENT: normal Neck: supple, non-tender Respiratory: CTA, breath sounds present Cardiovascular: RRR, pulses symmetrical Abdomen: non-tender, soft Musculoskeletal: normal, strength/ROM intact Neuro: normal, sensory motor intact, A&Ox3 Psych: depressed affect Triage Information Reviewed: Yes Vital Signs On Initial Exam: Initial Vitals Temp Pulse Resp BP Pulse Ox 97.2 F 88 16 167/95 95 08/19/18 20:10 08/19/18 20:10 08/19/18 20:10 08/19/18 20:10 08/19/18 20:10 Vital Signs Reviewed: Yes Diagnostics - Vital Signs Vital Signs Temp Pulse Resp BP Pulse Ox 08/19/18 20:23 89 140/92 98 08/19/18 20:22 87 98 08/19/18 20:10 97.2 F 88 16 167/95 95 - Laboratory Result Diagrams: 08/19/18 21:26 Lab Statement: Any lab studies that have been ordered have been reviewed, and results considered in the medical decision making process. - Radiology CXR Radiology Interpretation Completed By: ED Physician Summary of Radiographic Findings: Negative. No batteries seen. Abdominal XR Radiology Interpretation Completed By: ED Physician Summary of Radiographic Findings: Batteries seen in stomach. Course/Dx - Course Course Of Treatment: 53 year old F brought in by ambulance to [facility] after swallowing three AAA batteries around 1600 this evening. Patient denies current SI and abdominal pain. Patient reports history of bipolar disorder and a recent increase in dosage for her psych medications. She reports recent menopause that effects her mental health. Patient has a history of swallowing batteries. CXR reveals. Abdominal XR reveals Case discussed with Dr. Reynoso (GI) who recommends repeat XRs over the next 2 days. Lab work is ordered. There are no batteries seen on the CXR. Batteries are seen in the stomach on Abdominal XR. Patient is discharged to Dr. Mcdowell awaiting a mental health evaluation. - Differential Dx/Clinical Impression Provider Diagnosis: Depression - Physician Notifications Discussed Care Of Patient With: Jonathan Reynoso - gastro Time Discussed With Above Provider: 20:50 Instructed by Provider To: Other - Recomends repeat XRs over the next 2 days Discharge - Sign-Out/Discharge Documenting (check all that apply): Sign-Out Patient Signing out patient TO: Sendy Mcdowell - [facility] - Discharge Plan Referrals: Rosa Schroeder MD [Primary Care Provider] - - Attestation Statements Document Initiated by Scribe: Yes Documenting Scribe: Brittney Bartholomew Provider For Whom Scribe is Documenting (Include Credential): Corey Easton MD Scribe Attestation: Brittney Rosales, scribed for Corey Easton MD on 08/19/18 at 2143. Status of Scribe Document: Ready
[2018-08-19 21:36] LABS: ABS Basophils 0.1 10^3/ul (0-0.2); ABS Eosinophils 0.2 10^3/ul (0-0.6); ABS Lymphocytes 2.8 10^3/ul (1.0-4.8); ABS Monocytes 0.5 10^3/ul (0-0.8); ABS Neutrophils 5.8 10^3/ul (1.5-7.7); ABS Nucleated RBC 0 10^3/ul; Eosinophil % 2.3 %; Hematocrit 39 % (35-47); Hemoglobin 12.5 g/dl (12.0-16.0); Lymphocyte % 29.7 %; Mean Corpuscular HGB Conc 32 g/dl (31-36); Mean Corpuscular Hemoglobin 28 pg (27-31); Mean Corpuscular Volume 88 fL (80-97); Nucleated Red Blood Cells % 0.1; Platelet Count 186 10^3/ul (150-450); Red Blood Count 4.42 10^6/ul (4.00-5.40); Red Cell Distribution Width 17 % (10.5-15); White Blood Count 9.3 10^3/ul (3.5-10.8)
[2018-08-19 21:55] LABS: Albumin 3.6 g/dL (3.2-5.2); CO2 Carbon Dioxide 22 mmol/L (22-32); Calcium 9.4 mg/dL (8.6-10.3); Chloride 108 mmol/L (101-111); Sodium 139 mmol/L (135-145)
[2018-08-19 21:57] LABS: HCG Pregnancy 2.61 mIU/mL
[2018-08-19 22:01] LABS: ALT 44 U/L (7-52); Albumin/Globulin Ratio 1.1 (1-3); Alkaline Phosphatase 193 U/L (34-104); BUN/Creatinine Ratio 13.4 (8-20); Blood Urea Nitrogen 11 mg/dL (6-24); EGFR Non-African American 73.2 (>60); Globulin 3.4 g/dL (2-4); Glucose 126 mg/dL (70-100)
[2018-08-19 22:06] LABS: Acetaminophen < 15 mcg/mL; Alcohol < 10 mg/dL (<10); Salicylate < 2.50 mg/dL (<30)
[2018-08-19 22:16] LABS: TSH (Thyroid Stimulating Horm) 7.94 mcIU/mL (0.34-5.60)
[2018-08-19 22:22] LABS: AST 47 U/L (13-39); Anion Gap 9 mmol/L (2-11); Potassium 4.5 mmol/L (3.5-5.0)
--- NOTE | 2018-08-19 23:33 | ED ---
Progress - Progress Note Progress Note: The patient is a 53 year old female who was signed out from Dr. Easton to Dr. Mcdowell. She is pending disposition and [facility]. - Consult/PCP Time Called: 20:10 Course/Dx - Course Course Of Treatment: 53 year old F brought in by ambulance to [facility]. The Patient is discharged to Dr. Mcdowell from Dr. Easton awaiting a mental health evaluation. Upon receving [facility], the pt will be dx with foreign body injestion and Depression. The patient will be discharged home and is recommended to follow up with [facility] as well as to monitor her stool for batteries. - Diagnoses Provider Diagnoses: Depression, Foreign body ingestion Discharge - Sign-Out/Discharge Documenting (check all that apply): Patient Departure - Discharge Plan Condition: Stable Disposition: HOME Patient Education Materials: Depression (ED), Foreign Body Ingestion (ED) Referrals: Rosa Schroeder MD [Primary Care Provider] - Additional Instructions: RETURN TO THE EMERGENCY DEPARTMENT FOR CHANGING OR WORSENING SYMPTOMS. Monitor Stool for batteries. Follow up with [facility]. - Attestation Statements Document Initiated by Albertoibe: Yes Documenting Scribe: Emeka Mcmanus Provider For Whom Noam is Documenting (Include Credential): Dr. Sendy Mcdowell Scribe Attestation: Emeka Rosales scribed for Dr. Sendy Mcdowell on 08/20/18 at 0027. Status of Scribe Document: Ready
[2018-08-20 00:08] VITALS: BP 128/99
== END 2018-08-20 00:05 | disposition home or self-care (01) ==
LOC: ED 20:10
DX: F32.9 Major depressive disorder, single episode, unspecified (principal); T18.2XXA Foreign body in stomach, initial encounter; X58.XXXA Exposure to other specified factors, initial encounter; Y92.9 Unspecified place or not applicable; K21.9 Gastro-esophageal reflux disease without esophagitis; F41.9 Anxiety disorder, unspecified; Z90.49 Acquired absence of other specified parts of digestive tract; Z88.5 Allergy status to narcotic agent; Z88.0 Allergy status to penicillin; Z88.2 Allergy status to sulfonamides; Z88.8 Allergy status to other drugs, medicaments and biological substances; Z88.1 Allergy status to other antibiotic agents; Z91.040 Latex allergy status; Z72.0 Tobacco use
CPT/HCPCS: 36415; 71046; 74019; 80053; 80320; 80329; 84443; 84702; 85025; 99284; G0480

== ENCOUNTER 2018-08-20 18:52 | Emergency (ER) | payer MEDICARE, MEDICAID ==
--- NOTE | 2018-08-20 20:52 | ED ---
Psychiatric Complaint - HPI Summary HPI Summary: A 53 y/o female brought in by police presents to the ED s/p abnormal angry behavior. As per triage, "Pt brought inby [facility] on 941 from [facility]. Pt states staff at [facility] were going through her room and she became angry. States she grabbed a picture frame and through it towards a nurse. [employer] states pt was making threats to harm staff". Patient came to the ED for a MHE evaluation through the efforts of the police. The patient was recently discharged from [facility]. Patient does not want ER MD to examine her and does not want to talk. Patient seems agitated. - History Of Current Complaint Chief Complaint: EDMentalHealth Time Seen by Provider: 08/20/18 19:51 Hx Obtained From: Patient Hx Last Menstrual Period: "last month" Onset/Duration: Sudden Onset, Still Present Timing: Constant Severity Currently: None Character: Depressed Aggravating Factor(s): Nothing Alleviating Factor(s): Nothing Associated Signs And Symptoms: Positive: Negative Related History: Positive For: Prior Psychiatric Issues - Allergies/Home Medications Allergies/Adverse Reactions: Allergies Allergy/AdvReac Type Severity Reaction Status Date / Time ciprofloxacin Allergy Dizziness Verified 08/20/18 19:02 latex Allergy Rash Verified 08/20/18 19:02 lithium Allergy See Comment Verified 08/20/18 19:02 lurasidone [From Latuda] Allergy Altered Verified 08/20/18 19:02 Mental Status nalbuphine Allergy Unknown Verified 08/20/18 19:02 Reaction Details naldemedine Allergy Unknown Verified 08/20/18 19:02 Reaction Details Penicillins Allergy Rash Verified 08/20/18 19:02 perphenazine Allergy Unknown Verified 08/20/18 19:02 Reaction Details Sulfa (Sulfonamide Allergy Hives Verified 08/20/18 19:02 Antibiotics) tramadol Allergy Altered Verified 08/20/18 19:02 Mental Status ENVIRONMENTAL Allergy Mild SINUS Uncoded 08/20/18 19:02 PMH/Surg Hx/FS Hx/Imm Hx Endocrine/Hematology History: Reports: Hx Diabetes, Hx Thyroid Disease, Other Endocrine/Hematological Disorders - Chronic pancreatitis Denies: Hx Anticoagulant Therapy Cardiovascular History: Reports: Hx Hypertension - NO MEDICATION FOR PER PATIENT , Other Cardiovascular Problems/Disorders - HX OF PSVT 04/2008 Denies: Hx Pacemaker/ICD Respiratory History: Reports: Hx Asthma, Hx Seasonal Allergies, Hx Sleep Apnea - HX OF IN THE PAST Denies: Hx Chronic Bronchitis, Hx Chronic Obstructive Pulmonary Disease (COPD ), Hx Cystic Fibrosis, Hx Lung Cancer, Hx Pleural Effusion, Hx Pneumonia, Hx Pulmonary Edema, Hx Pulmonary Embolism, Other Respiratory Problems/Disorders GI History: Reports: Hx Gall Bladder Disease, Hx Gastroesophageal Reflux Disease - ON MEDICATION FOR, Hx Gastrointestinal Bleed, Hx Irritable Bowel, Other GI Disorders - HX OF pancreatitis- STATES LAST ABOUT 2 WEEKS AGO- STATES SLIGHT CASE Denies: Hx Ulcer History: Reports: Other Problems/Disorders - urinary incontinence Denies: Hx Dialysis, Hx Renal Disease Musculoskeletal History: Reports: Hx Arthritis, Hx Back Problems, Other Musculoskeletal History - GEN MUSCULOSKELETAL PAIN Denies: Hx Rheumatoid Arthritis, Hx Bursitis, Hx Congenital Bone Abnormalities, Hx Fibromyalgia, Hx Gout, Hx Orthopedic Injury, Hx Osteoporosis, Hx Scoliosis, Hx Tendonitis Sensory History: Reports: Hx Vision Problem Denies: Hx Cataracts, Hx Contacts or Glasses, Hx Eye Injury, Hx Eye Prosthesis, Hx Glaucoma, Hx Macular Degeneration, Hx Hearing Aid, Other Sensory Impairments Opthamlomology History: Reports: Hx Vision Problem Denies: Hx Cataracts, Hx Contacts or Glasses, Hx Eye Injury, Hx Eye Prosthesis, Hx Glaucoma, Hx Macular Degeneration, Other Sensory Impairments Neurological History: Reports: Hx Developmental Delay - intellectual disability , Hx Seizures - STATES WITH ALLERGIC REACTION TO TRAMADOL Denies: Hx Dementia, Hx Headaches, Other Neuro Impairments/Disorders Psychiatric History: Reports: Hx Anxiety - ON MEDICATION FOR, Hx Depression - ON MEDICATION FOR, Hx Post Traumatic Stress Disorder, Hx Inpatient Treatment, Hx Community Mental Health Tx, Hx Bipolar Disorder - pt manic, Hx Suicide Attempt - past med overdoses, Hx of Violent Episodes Against Others, Other Psychiatric Issues/Disorders - PSYCHOSIS NOS, HX OF PTSD, SCHIZOAFFECTIVE DISORDER, BORDERLINE PERSONALITY Denies: Hx Attention Deficit Hyperactivity Disorder, Hx Eating Disorder, Hx Panic Disorder, Hx Schizophrenia, Hx Substance Abuse - Cancer History Cancer Type, Location and Year: None reported - Surgical History Surgery Procedure, Year, and Place: 2011-CATARACT EXTRACTION. GALLBLADDER REMOVED Hx Anesthesia Reactions: No - Immunization History Date of Tetanus Vaccine: Unknown Date of Influenza Vaccine: 04/2017 Infectious Disease History: No Infectious Disease History: Denies: Hx Clostridium Difficile, Hx Hepatitis, Hx Human Immunodeficiency Virus (HIV), Hx of Known/Suspected MRSA, Hx Shingles, Hx Tuberculosis, Hx Known/ Suspected VRE, Hx Known/Suspected VRSA, History Other Infectious Disease, Traveled Outside the [place] in Last 30 Days - Family History Known Family History: Positive: Other - Anxiety and depression, [place] - father Negative: Cardiac Disease, Hypertension, Diabetes Family History: Depression and anxiety - Social History Alcohol Use: None Hx Substance Use: Yes Substance Use Type: Reports: None Hx Tobacco Use: Yes Smoking Status (MU): Current Some Day Smoker Type: Cigarettes Amount Used/How Often: 1/2 PPD FOR LAST 30 DAYS, NO OTHER TOBACCO Length of Time of Smoking/Using Tobacco: 2 year ago Have You Smoked in the Last Year: Yes - Patient has smoked within the last 30 days Review of Systems Negative: Fever Psychological: Other - POSITIVE: ANGRY-BEHAVIOR Positive: Depressed All Other Systems Reviewed And Are Negative: Yes Physical Exam - Summary Physical Exam Summary: Appearance: Well appearing, no pain distress Skin: warm, dry, reflects adequate perfusion Head/face: normal Eyes: EOMI, JENNIFER ENT: normal Neck: supple, non-tender Respiratory: CTA, breath sounds present Cardiovascular: RRR, pulses symmetrical Abdomen: non-tender, soft Musculoskeletal: normal, strength/ROM intact Neuro: normal, sensory motor intact, A&Ox3 Psych: depressed-affect Triage Information Reviewed: Yes Vital Signs On Initial Exam: Initial Vitals Temp Pulse Resp BP Pulse Ox 98.2 F 97 20 161/100 96 08/20/18 18:57 08/20/18 18:57 08/20/18 18:57 08/20/18 18:57 08/20/18 18:57 Vital Signs Reviewed: Yes Diagnostics - Vital Signs Vital Signs Temp Pulse Resp BP Pulse Ox 08/20/18 20:03 97.2 F 98 18 139/79 100 08/20/18 18:57 98.2 F 97 20 161/100 96 - Laboratory Lab Statement: Any lab studies that have been ordered have been reviewed, and results considered in the medical decision making process. - Radiology ABDOMEN XR Radiology Interpretation Completed By: ED Physician Summary of Radiographic Findings: BATTERIES. PENDING OFFICIAL REPORT. Re-Evaluation - Re-Evaluation First Eval Re-Evaluation Time: 20:30 Change: Worse Comment: PATIENT SWALLOWED A NICOTINE CAP FROM HER NICOTINE INHALER. Course/Dx - Course Course Of Treatment: A 53 y/o female brought in by police presents to the ED s/ p abnormal angry behavior. As per triage, "Pt brought inaime [facility] on 941 from [facility]. Pt states staff at [facility] were going through her room and she became angry. States she grabbed a picture frame and through it towards a nurse. [employer] states pt was making threats to harm staff". Patient came to the ED for a MHE evaluation through the efforts of the police. The patient was recently discharged from [facility]. Patient does not want ER MD to examine her and does not want to talk. Patient seems agitated. Physical examination findings were significant for depressed-affect. Patient told ED staff that she swallowed a nicotine inhaler plastic cap. An Abdomen XR revealed batteries. No blood work was done. In the ED course the patient received no medications. Patient will be signed out to Dr. Sendy Mcdowell via Dr. Corey Easton, pending MHE and disposition, upon shift change on August 20, 2018 at 2200. Patient will be signed out with a diagnosis of depression and foreign body. - Differential Dx/Clinical Impression Differential Diagnosis/HQI/PQRI: Positive: Depression, Other - fb abdomen Provider Diagnosis: Depressed, Foreign body Discharge - Sign-Out/Discharge Documenting (check all that apply): Sign-Out Patient - BERNADETTE Signing out patient TO: Sendy Mcdowell Receiving patient FROM: Corey Easton - Discharge Plan Condition: Stable Referrals: Rosa Schroeder MD [Primary Care Provider] - - Billing Disposition and Condition Condition: STABLE - Attestation Statements Document Initiated by Scribe: Yes Documenting Scribe: Leonardo Waters Provider For Whom Noam is Documenting (Include Credential): Corey Easton MD Scribe Attestation: Leonardo Rosales, scribed for Corey Easton MD on 08/20/18 at 2147. Scribe Documentation Reviewed: Yes Provider Attestation: The documentation as recorded by the Leonardo roth accurately reflects the service I personally performed and the decisions made by me, Corey Easton MD Status of Scribe Document: Viewed
[2018-08-20 23:05] VITALS: BP 117/61
== END 2018-08-20 23:05 | disposition home or self-care (01) ==
LOC: ED 18:52
DX: T18.9XXA Foreign body of alimentary tract, part unspecified, initial encounter (principal); F32.9 Major depressive disorder, single episode, unspecified; X58.XXXA Exposure to other specified factors, initial encounter; Y92.129 Unspecified place in nursing home as the place of occurrence of the external cause
CPT/HCPCS: 74018; 99284

== ENCOUNTER 2018-08-22 01:31 | Inpatient (IN) | payer MEDICARE, MEDICAID ==
--- NOTE | 2018-08-22 02:00 | ED ---
Psychiatric Complaint - HPI Summary HPI Summary: Patient is a 53 y/o F presenting to ED with SI. She states that she was served eviction papers today and that she has 30 days to move out of [place] to a new place of residents. Patient claims that she is being evicted due to her Hx of self harm. She states that today she had thoughts of attempted to choke herself with a piece of string that she had. On triage, pain is denied, nothing is noted to aggravate/alleviate Sx. Home medications and allergies are reviewed. - History Of Current Complaint Chief Complaint: EDMentalHealth Time Seen by Provider: 08/22/18 01:43 Hx Obtained From: Patient Hx Last Menstrual Period: "last month" Onset/Duration: Still Present Timing: Constant Severity Currently: None Character: Depressed Aggravating Factor(s): Nothing Alleviating Factor(s): Nothing Has Suicidal: Reports: Thoughts, With A Plan - Allergies/Home Medications Allergies/Adverse Reactions: Allergies Allergy/AdvReac Type Severity Reaction Status Date / Time ciprofloxacin Allergy Dizziness Verified 08/22/18 02:10 latex Allergy Rash Verified 08/22/18 02:10 lithium Allergy See Comment Verified 08/22/18 02:10 lurasidone [From Latuda] Allergy Altered Verified 08/22/18 02:10 Mental Status nalbuphine Allergy Unknown Verified 08/22/18 02:10 Reaction Details naldemedine Allergy Unknown Verified 08/22/18 02:10 Reaction Details Penicillins Allergy Rash Verified 08/22/18 02:10 perphenazine Allergy Unknown Verified 08/22/18 02:10 Reaction Details Sulfa (Sulfonamide Allergy Hives Verified 08/22/18 02:10 Antibiotics) tramadol Allergy Altered Verified 08/22/18 02:10 Mental Status ENVIRONMENTAL Allergy Mild SINUS Uncoded 08/22/18 02:10 PMH/Surg Hx/FS Hx/Imm Hx Endocrine/Hematology History: Reports: Hx Diabetes, Hx Thyroid Disease, Other Endocrine/Hematological Disorders - Chronic pancreatitis Denies: Hx Anticoagulant Therapy Cardiovascular History: Reports: Hx Hypertension - NO MEDICATION FOR PER PATIENT , Other Cardiovascular Problems/Disorders - HX OF PSVT 04/2008 Denies: Hx Pacemaker/ICD Respiratory History: Reports: Hx Asthma, Hx Seasonal Allergies, Hx Sleep Apnea - HX OF IN THE PAST Denies: Hx Chronic Bronchitis, Hx Chronic Obstructive Pulmonary Disease (COPD ), Hx Cystic Fibrosis, Hx Lung Cancer, Hx Pleural Effusion, Hx Pneumonia, Hx Pulmonary Edema, Hx Pulmonary Embolism, Other Respiratory Problems/Disorders GI History: Reports: Hx Gall Bladder Disease, Hx Gastroesophageal Reflux Disease - ON MEDICATION FOR, Hx Gastrointestinal Bleed, Hx Irritable Bowel, Other GI Disorders - HX OF pancreatitis- STATES LAST ABOUT 2 WEEKS AGO- STATES SLIGHT CASE Denies: Hx Ulcer History: Reports: Other Problems/Disorders - urinary incontinence Denies: Hx Dialysis, Hx Renal Disease Musculoskeletal History: Reports: Hx Arthritis, Hx Back Problems, Other Musculoskeletal History - GEN MUSCULOSKELETAL PAIN Denies: Hx Rheumatoid Arthritis, Hx Bursitis, Hx Congenital Bone Abnormalities, Hx Fibromyalgia, Hx Gout, Hx Orthopedic Injury, Hx Osteoporosis, Hx Scoliosis, Hx Tendonitis Sensory History: Reports: Hx Vision Problem Denies: Hx Cataracts, Hx Contacts or Glasses, Hx Eye Injury, Hx Eye Prosthesis, Hx Glaucoma, Hx Macular Degeneration, Hx Hearing Aid, Other Sensory Impairments Opthamlomology History: Reports: Hx Vision Problem Denies: Hx Cataracts, Hx Contacts or Glasses, Hx Eye Injury, Hx Eye Prosthesis, Hx Glaucoma, Hx Macular Degeneration, Other Sensory Impairments Neurological History: Reports: Hx Developmental Delay - intellectual disability , Hx Seizures - STATES WITH ALLERGIC REACTION TO TRAMADOL Denies: Hx Dementia, Hx Headaches, Other Neuro Impairments/Disorders Psychiatric History: Reports: Hx Anxiety - ON MEDICATION FOR, Hx Depression - ON MEDICATION FOR, Hx Post Traumatic Stress Disorder, Hx Inpatient Treatment, Hx Community Mental Health Tx, Hx Bipolar Disorder - pt manic, Hx Suicide Attempt - past med overdoses, Hx of Violent Episodes Against Others, Other Psychiatric Issues/Disorders - PSYCHOSIS NOS, HX OF PTSD, SCHIZOAFFECTIVE DISORDER, BORDERLINE PERSONALITY Denies: Hx Attention Deficit Hyperactivity Disorder, Hx Eating Disorder, Hx Panic Disorder, Hx Schizophrenia, Hx Substance Abuse - Cancer History Cancer Type, Location and Year: None reported - Surgical History Surgery Procedure, Year, and Place: 2011-CATARACT EXTRACTION. GALLBLADDER REMOVED Hx Anesthesia Reactions: No - Immunization History Date of Tetanus Vaccine: unk Date of Influenza Vaccine: fall 2017 Infectious Disease History: No Infectious Disease History: Denies: Hx Clostridium Difficile, Hx Hepatitis, Hx Human Immunodeficiency Virus (HIV), Hx of Known/Suspected MRSA, Hx Shingles, Hx Tuberculosis, Hx Known/ Suspected VRE, Hx Known/Suspected VRSA, History Other Infectious Disease, Traveled Outside the [place] in Last 30 Days - Family History Known Family History: Positive: Other - Anxiety and depression, [place] - father Negative: Cardiac Disease, Hypertension, Diabetes Family History: Depression and anxiety - Social History Alcohol Use: None Hx Substance Use: Yes Substance Use Type: Reports: None Hx Tobacco Use: Yes Smoking Status (MU): Current Some Day Smoker Type: Cigarettes Amount Used/How Often: 1/2 PPD FOR LAST 30 DAYS, NO OTHER TOBACCO Length of Time of Smoking/Using Tobacco: 2 year ago Have You Smoked in the Last Year: Yes - Patient has smoked within the last 30 days Review of Systems Negative: Fever Psychological: Other - POSITIVE - SI WITH PLAN All Other Systems Reviewed And Are Negative: Yes Physical Exam - Summary Physical Exam Summary: VITAL SIGNS: Reviewed. GENERAL: Patient is a well-developed and nourished female who is lying comfortable in the stretcher. Patient is not in any acute respiratory distress. HEAD AND FACE: No signs of trauma. No ecchymosis, hematomas or skull depressions. No sinus tenderness. EYES: PERRLA, EOMI x 2, No injected conjunctiva, no nystagmus. EARS: Hearing grossly intact. Ear canals and tympanic membranes are within normal limits. MOUTH: Oropharynx within normal limits. NECK: Supple, trachea is midline, no adenopathy, no JVD, no carotid bruit, no c- spine tenderness, neck with full ROM. CHEST: Symmetric, no tenderness at palpation LUNGS: Clear to auscultation bilaterally. No wheezing or crackles. CVS: Regular rate and rhythm, S1 and S2 present, no murmurs or gallops appreciated. ABDOMEN: Soft, non-tender. No signs of distention. No rebound no guarding, and no masses palpated. Bowel sounds are normal. EXTREMITIES: FROM in all major joints, no edema, no cyanosis or clubbing. NEURO: Alert and oriented x 3. No acute neurological deficits. Speech is normal and follows commands. SKIN: Dry and warm Triage Information Reviewed: Yes Vital Signs On Initial Exam: Initial Vitals Temp Pulse Resp BP Pulse Ox 99.6 F 101 18 126/86 98 08/22/18 01:38 08/22/18 01:38 08/22/18 01:38 08/22/18 01:38 08/22/18 01:38 Vital Signs Reviewed: Yes Diagnostics - Vital Signs Vital Signs Temp Pulse Resp BP Pulse Ox 08/22/18 01:38 99.6 F 101 18 126/86 98 - Laboratory Result Diagrams: 08/22/18 02:20 08/22/18 02:20 Lab Statement: Any lab studies that have been ordered have been reviewed, and results considered in the medical decision making process. Course/Dx - Course Course Of Treatment: Patient is a 53 y/o F presenting to ED with SI. She states that she was served eviction papers today and that she has 30 days to move out [facility] to a new place of residents. Patient claims that she is being evicted due to her Hx of self harm. She states that today she had thoughts of attempted to choke herself with a piece of string that she had. Physical exam is normal. Patient was medically cleared. Labs showed RDW 17, creatinine 0.96 , glucose 166, Alk Phos 184, TSH 8.26. Tox screen was negative. - Differential Dx/Clinical Impression Provider Diagnosis: Depression Discharge - Sign-Out/Discharge Documenting (check all that apply): Sign-Out Patient Signing out patient TO: Brian St Receiving patient FROM: Rolando Mcdowell - Discharge Plan Referrals: Rosa Shcroeder MD [Primary Care Provider] - - Attestation Statements Document Initiated by Scribe: Yes Documenting Scribe: ERIN VELOZ Provider For Whom Albertoibfarida is Documenting (Include Credential): ROLANDO MCDOWELL MD Scribe Attestation: ERIN Rosales , scribed for ROLANDO MCDOWELL MD on 08/22/18 at 0659. Status of Scribe Document: Ready
[2018-08-22] MEDS ORDERED: Nicotine PATCH 14 MG/24 HR* PATCH TRANSDERM ONE (02:04)
[2018-08-22 02:27] LABS: ABS Basophils 0.1 10^3/ul (0-0.2); ABS Eosinophils 0.3 10^3/ul (0-0.6); ABS Lymphocytes 3.4 10^3/ul (1.0-4.8); ABS Monocytes 0.5 10^3/ul (0-0.8); ABS Neutrophils 6.5 10^3/ul (1.5-7.7); ABS Nucleated RBC 0 10^3/ul; Eosinophil % 2.6 %; Hematocrit 41 % (35-47); Hemoglobin 13.1 g/dl (12.0-16.0); Lymphocyte % 31.4 %; Mean Corpuscular HGB Conc 32 g/dl (31-36); Mean Corpuscular Hemoglobin 28 pg (27-31); Mean Corpuscular Volume 88 fL (80-97); Mean Platelet Volume 8.9 fL (7.4-10.4); Nucleated Red Blood Cells % 0; Platelet Count 258 10^3/ul (150-450); Red Blood Count 4.66 10^6/ul (4.00-5.40); Red Cell Distribution Width 17 % (10.5-15); White Blood Count 10.7 10^3/ul (3.5-10.8)
[2018-08-22 02:41] LABS: ALT 37 U/L (7-52); AST 36 U/L (13-39); Albumin 3.6 g/dL (3.2-5.2); Alkaline Phosphatase 184 U/L (34-104); Anion Gap 9 mmol/L (2-11); BUN/Creatinine Ratio 15.6 (8-20); Blood Urea Nitrogen 15 mg/dL (6-24); CO2 Carbon Dioxide 26 mmol/L (22-32); Calcium 9.8 mg/dL (8.6-10.3); Chloride 104 mmol/L (101-111); EGFR African American 73.8 (>60); Globulin 3.7 g/dL (2-4); Glucose 166 mg/dL (70-100); Potassium 4.7 mmol/L (3.5-5.0); Sodium 139 mmol/L (135-145); Total Protein 7.3 g/dL (6.4-8.9)
[2018-08-22 03:22] LABS: Acetaminophen < 15 mcg/mL; Alcohol < 10 mg/dL (<10); Salicylate < 2.50 mg/dL (<30)
[2018-08-22 03:37] LABS: TSH (Thyroid Stimulating Horm) 8.26 mcIU/mL (0.34-5.60)
[2018-08-22] MEDS ORDERED: Levothyroxine TAB* 175 MCG TAB PO ONE (06:00)
--- NOTE | 2018-08-22 07:35 | ED ---
Progress - Progress Note Progress Note: This pt was signed out by Dr. Mcdowell at shift change, pending disposition, awaiting mental health evaluation. Course/Dx - Diagnoses Provider Diagnoses: Depression Discharge - Sign-Out/Discharge Documenting (check all that apply): Receiving Sign-Out Receiving patient FROM: Sendy Mcdowell - Discharge Plan Referrals: Rosa Schroeder MD [Primary Care Provider] - - Attestation Statements Document Initiated by Scribe: Yes Documenting Scribe: Maki Ruvalcaba Provider For Whom Scribe is Documenting (Include Credential): Brian St MD Scribe Attestation: Maki Rosales, scribed for Brian St MD on 08/22/18 at 0734. Status of Scribe Document: Viewed
[2018-08-22] MEDS ORDERED: Ibuprofen TAB* 400 MG PO ONE (07:55)
[2018-08-22] MEDS: Insulin REGULAR(*) 1 UNITS UNIT SUBCUT SCH ×3 (08:18→18:09)
[2018-08-22] MEDS ORDERED: OLANzapine TAB* 2.5 MG PO ONE (10:38)
[2018-08-22] MEDS ORDERED: DULoxetine DR CAP* 20 MG CAP.DR PO ONE (10:38)
[2018-08-22] MEDS ORDERED: Acetaminophen TAB* 325 MG PO PRN (11:16)
[2018-08-22] MEDS ORDERED: Al Hydrox/Mg Hydrox/Simet LIQ* 30 ML UDC PO PRN (11:16)
[2018-08-22] MEDS ORDERED: guaiFENesin ER TAB 600 MG PO PRN (11:17)
[2018-08-22] MEDS ORDERED: Cetirizine* 10 MG TAB PO PRN (11:17)
[2018-08-22] MEDS ORDERED: Albuterol HFA INHALER* 8 gm MDI INH PRN (11:17)
--- NOTE | 2018-08-22 13:51 | ED ---
Progress - Progress Note Progress Note: This pt was signed out by Dr. Mcdowell at shift change, pending disposition, awaiting mental health evaluation. Nurse reports pt is concerned because she swallowed 3 batteries on Tuesday and a inhaler cap Tuesday but neither have passed yet. Abdomen XR ordered. XR, as read by radiologist, shows interval passage of previous battery morphology enteric foreign bodies. Pt had a mental health evaluation and her case was reviewed by Dr. Cunningham, psychiatrist. Pt will be admitted to [facility] psychiatric facility by Dr. Cunningham on an involuntary status with a dx depression unspecified. Course/Dx - Diagnoses Provider Diagnoses: Depression Discharge - Sign-Out/Discharge Documenting (check all that apply): Patient Departure - Admit to [facility], Receiving Sign-Out Receiving patient FROM: Sendy Mcdowell - Discharge Plan Condition: Stable Disposition: PSYCHIATRIC FACILITY-[facility] Referrals: Rosa Schroeder MD [Primary Care Provider] - - Attestation Statements Document Initiated by Scribe: Yes Documenting Scribe: Maki Ruvalcaba Provider For Whom Scribe is Documenting (Include Credential): Brian St MD Scribe Attestation: Maki Rosales, scribed for Brian St MD on 08/22/18 at 1346. Status of Scribe Document: Ready
[2018-08-22] MEDS: Gabapentin CAP(*) 400 MG PO SCH (18:08)
[2018-08-22] MEDS: Ibuprofen TAB* 600 MG PO PRN (18:10)
[2018-08-22] MEDS: Nicotine Inhaler* 10 MG AMP INH PRN (19:20)
[2018-08-22] MEDS ORDERED: Mouth Piece, Nicotine* 1 EACH CARTRIDGE ONE (19:20)
[2018-08-22] MEDS: Cholecalciferol TAB* 1000 UNITS PO SCH (20:55)
[2018-08-22] MEDS: lamoTRIgine TAB(*) 100 MG PO SCH (20:55)
[2018-08-22] MEDS: Atorvastatin* 20 MG TAB PO SCH (20:55)
[2018-08-22] MEDS: traZODone TAB* 100 MG PO SCH (20:56)
[2018-08-22] MEDS: Ondansetron TAB* 4 MG PO PRN (20:57)
[2018-08-22] MEDS: Naproxen TAB* 250 MG PO SCH (20:58)
[2018-08-22] MEDS: Fluticasone NASAL SPRAY 50MCG* 16 gm SPRAY BTL BOTH NARES SCH (20:59)
[2018-08-22] MEDS: Polyethylene Glycol 3350* 17 GM PACKET PO SCH (20:59)
[2018-08-22] MEDS: Lidocaine PATCH 5%* 1 PATCH TRANSDERM SCH (21:00)
[2018-08-23] MEDS ORDERED: Insulin REGULAR(*) 1 UNITS UNIT SUBCUT SCH (07:30)
[2018-08-23] MEDS: Levothyroxine TAB* 175 MCG TAB PO SCH (07:46)
[2018-08-23] MEDS: lamoTRIgine TAB(*) 100 MG PO SCH ×2 (09:14→20:28)
[2018-08-23] MEDS: OLANzapine TAB* 5 MG PO SCH (09:14)
[2018-08-23] MEDS: Naproxen TAB* 250 MG PO SCH ×2 (09:14→20:29)
[2018-08-23] MEDS: DULoxetine DR CAP* 20 MG CAP.DR PO SCH (09:14)
[2018-08-23] MEDS: DULoxetine DR CAP* 30 MG CAP.DR PO SCH (09:14)
[2018-08-23] MEDS: DULoxetine DR CAP* 60 MG CAP.DR PO SCH (09:14)
[2018-08-23] MEDS: Losartan TAB* 25 MG PO SCH (09:14)
[2018-08-23] MEDS: Cholecalciferol TAB* 1000 UNITS PO SCH ×2 (09:14→20:28)
[2018-08-23] MEDS: Lidocaine Patch REMOVE* 1 NOTE MISC PATCH OFF SCH (09:15)
[2018-08-23] MEDS: Polyethylene Glycol 3350* 17 GM PACKET PO SCH ×2 (09:18→20:30)
[2018-08-23] MEDS: Fluticasone NASAL SPRAY 50MCG* 16 gm SPRAY BTL BOTH NARES SCH ×2 (09:22→20:29)
[2018-08-23] MEDS: Insulin GLARGINE(*) 1 UNITS UNIT SUBCUT SCH (09:22)
[2018-08-23] MEDS: Ibuprofen TAB* 600 MG PO PRN (09:23)
[2018-08-23] MEDS: Nicotine Inhaler* 10 MG AMP INH PRN ×2 (09:23→16:54)
[2018-08-23] MEDS ORDERED: Dextrose 50% Syringe 50 ML* 25 GM/50 ML SYRINGE IV PUSH PRN (10:55)
[2018-08-23] MEDS: Insulin LISPRO* 1 UNITS UNIT SUBCUT SCH ×2 (12:08→16:56)
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
--- NOTE | 2018-08-23 16:34 | PN ---
MHU: Group Therapy Note - Service Type Service Type: [id number] Group Psychotherapy - Medication Education Group: Patient was attentive and participatory in group, and remained in good behavioral control. Patient expressed positive insights regarding relevant treatment interventions. Patient stated understanding of material discussed and had appropriate questions.
[2018-08-23] MEDS ORDERED: Mouth Piece, Nicotine* 1 EACH CARTRIDGE ONE (16:52)
[2018-08-23] MEDS: Atorvastatin* 20 MG TAB PO SCH (20:29)
[2018-08-23] MEDS: traZODone TAB* 100 MG PO SCH (20:29)
[2018-08-23] MEDS: Gabapentin CAP(*) 400 MG PO SCH (20:30)
[2018-08-23] MEDS: Mometasone 220 MCG MDI INH SCH (20:31)
[2018-08-23] MEDS: Lidocaine PATCH 5%* 1 PATCH TRANSDERM SCH (20:40)
[2018-08-23] MEDS ORDERED: OLANzapine TAB* 5 MG PO ONE (21:05)
[2018-08-23] MEDS ORDERED: OLANzapine TAB*ODT* 5 MG ONE (23:09)
[2018-08-24] MEDS: Nicotine Inhaler* 10 MG AMP INH PRN ×3 (00:10→22:54)
[2018-08-24] MEDS: DULoxetine DR CAP* 30 MG CAP.DR PO SCH (08:37)
[2018-08-24] MEDS: DULoxetine DR CAP* 60 MG CAP.DR PO SCH (08:37)
[2018-08-24] MEDS: Losartan TAB* 25 MG PO SCH (08:37)
[2018-08-24] MEDS: DULoxetine DR CAP* 20 MG CAP.DR PO SCH (08:38)
[2018-08-24] MEDS: OLANzapine TAB* 5 MG PO SCH (08:38)
[2018-08-24] MEDS: Naproxen TAB* 250 MG PO SCH ×2 (08:38→22:28)
[2018-08-24] MEDS: lamoTRIgine TAB(*) 100 MG PO SCH ×2 (08:38→22:29)
[2018-08-24] MEDS: Cholecalciferol TAB* 1000 UNITS PO SCH ×2 (08:39→22:29)
[2018-08-24] MEDS: Levothyroxine TAB* 175 MCG TAB PO SCH (08:40)
[2018-08-24] MEDS: Fluticasone NASAL SPRAY 50MCG* 16 gm SPRAY BTL BOTH NARES SCH ×2 (08:40→22:27)
[2018-08-24] MEDS: Insulin GLARGINE(*) 1 UNITS UNIT SUBCUT SCH (08:48)
[2018-08-24] MEDS: Nicotine GUM* 2 MG PO PRN ×2 (08:48→13:16)
[2018-08-24] MEDS: Insulin LISPRO* 1 UNITS UNIT SUBCUT SCH ×3 (08:48→17:25)
[2018-08-24] MEDS: Ibuprofen TAB* 600 MG PO PRN ×2 (08:49→22:54)
[2018-08-24] MEDS: Polyethylene Glycol 3350* 17 GM PACKET PO SCH ×2 (08:56→22:29)
[2018-08-24] MEDS: Lidocaine Patch REMOVE* 1 NOTE MISC PATCH OFF SCH (08:56)
--- NOTE | 2018-08-24 13:55 | PN ---
Subjective - Subjective Date of Service: 08/24/18 Service Type: [id number] Hosp care 25 min moderate complexity Subjective: Patient engaged in superficial cutting near bedtime last night, then approached staff and participated in behavioral chain analysis. She reports sleeping well last night. Today, she is euthymic and cooperative. Manager Content met with her and her mother during visiting hours. We reviewed discussion from yesterday, including empowering Taryn to be in control of her behaviors. Both Taryn and her mother reported frustrations with [facility]. Manager Content validated and encourages patient to be mindful of her own behaviors versus being frustrated by others. Patient endorses sadness about having to leave friends she made at [facility]. She is encouraged to actively engage in closure while at the facility. Patient states agreement at this time. Objective - Appearance Appearance: Obese Dysmorphic Features: No Hygiene: Normal Grooming: Well Kept - Behavior Psychomotor Activities: Normal Exhibits Abnormal Movement: No - Attitude and Relatedness Attitude and Relatedness: Cooperative Eye Contact: Good - Speech Quality: Unpressured Latencies: Normal Quantity: Appropriate - Mood Patient's Decription of Mood: "Sad" - Affect Observed Affect: Good Affect Consistent with: Euthymia - Thought Process Patient's Thought Process: Coherent, Goal Directed, Circumstantial Thought Content: No Passive Wish, No Suicidal Planning, No Homicidal Ideation, No Paranoid Ideation - Sensorium Experiencing Hallucinations: No, Sensorium is Clear Type of Hallucinations: Visual: No, Auditory: No, Command: No - Level of Consciousness Level of Consciousness: Alert Orientation: Yes Intact, Yes Orientated to Time, Yes Orientated to Place, Yes Orientated to Person - Impulse Control Impulse Control: Tenuous - Insight and Judgement Insight and Judgement: Poor - Group Participation Particating in Group Activities: Yes - Medication Management Medication Management Adherence: Yes Assessment - Assessment Merits Inpatient Hospitalization: For Immediate Safety, For Stabilization Inpatient DSM-V Dx: F34.9 Clinical Impression: 53yo wf with hx of unspecified mood d/o and borderline personality d/o who presented to ED with suicidal ideation and recent attempts. She merits hospitalization for immediate safety and stabilization. Plan - Plan Treatment Plan: Name: TARYN ALFARO Birthdate: 1965 [id number] continue acute intensive psychiatric treatment. recheck free t4 as add-on test. continue current medications and behavior modification plan. discharge planning to include outpatient providers and [facility] assisted living. Continued Medication Management: Continue Outpt Medication Medications: Current Medications Acetaminophen (Tylenol Tab*) 650 mg PO Q4H PRN PRN Reason: for pain; or Temp >101 F Last Admin: 08/24/18 13:06 Dose: 650 mg Al Hydrox/Mg Hydrox/Simethicone (Maalox Plus*) 30 ml PO Q4H PRN PRN Reason: INDIGESTION Albuterol (Ventolin Hfa Inhaler*) 1 puff INH Q6H PRN PRN Reason: wheeze Atorvastatin Calcium (Lipitor*) 20 mg PO BEDTIME [facility] Last Admin: 08/23/18 20:29 Dose: 20 mg Cetirizine HCl (Zyrtec*) 10 mg PO DAILY PRN PRN Reason: Allergy Symptoms Cholecalciferol (Vitamin D Tab*) 1,000 units PO BID [facility] Last Admin: 08/24/18 08:39 Dose: 1,000 units Dextrose (D50w Syringe 50 Ml*) 12.5 gm IV PUSH .FOR FS < 60 - SS PRN PRN Reason: FS < 60 Duloxetine HCl (Cymbalta Cap*) 20 mg PO DAILY [facility] Last Admin: 08/24/18 08:38 Dose: 20 mg Duloxetine HCl (Cymbalta Cap*) 30 mg PO QAM [facility] Last Admin: 08/24/18 08:37 Dose: 30 mg Duloxetine HCl (Cymbalta Cap*) 60 mg PO DAILY [facility] Last Admin: 08/24/18 08:37 Dose: 60 mg Fluticasone Propionate (Flonase Nasal [place] 50mcg*) 2 spray BOTH NARES BID [facility] Last Admin: 08/24/18 08:40 Dose: 2 spray Gabapentin (Neurontin Cap(*)) 800 mg PO QPM [facility] Last Admin: 08/23/18 20:30 Dose: 800 mg Guaifenesin (Mucinex*) 600 mg PO BID PRN PRN Reason: CONGESTION Ibuprofen (Motrin Tab*) 600 mg PO TID PRN PRN Reason: PAIN Last Admin: 08/24/18 08:49 Dose: 600 mg Insulin Glargine (Lantus(*)) 66 units SUBCUT QAM [facility] Last Admin: 08/24/18 08:48 Dose: 66 units Insulin Human Lispro (Humalog*) 22 units SUBCUT AC [facility] Last Admin: 08/24/18 12:06 Dose: 22 units Lamotrigine (Lamictal Tab(*)) 100 mg PO BID [facility] Last Admin: 08/24/18 08:38 Dose: 100 mg Levothyroxine Sodium (Synthroid Tab*) 175 mcg PO QAM@0600 [facility] Last Admin: 08/24/18 08:40 Dose: 175 mcg Lidocaine (Lidoderm 5% Patch*) 1 patch TRANSDERM DAILY@2100 [facility] Last Admin: 08/23/18 20:40 Dose: 1 patch Losartan Potassium (Cozaar Tab*) 50 mg PO DAILY [facility] Last Admin: 08/24/18 08:37 Dose: 50 mg Mometasone Furoate (Asmanex 220 Mcg Mdi *) 1 puff INH QPM [facility] Last Admin: 08/23/18 20:31 Dose: 1 puff Naproxen (Naprosyn Tab*) 500 mg PO BID [facility] Last Admin: 08/24/18 08:38 Dose: 500 mg Nicotine (Nicotine Inhaler*) 10 mg INH Q2H PRN PRN Reason: CRAVING Last Admin: 08/24/18 13:16 Dose: 10 mg Nicotine Polacrilex (Nicotine Gum*) 2 mg PO Q2H PRN PRN Reason: CRAVINGS Last Admin: 08/24/18 13:16 Dose: 2 mg Olanzapine (Zyprexa Tab*) 5 mg PO DAILY [facility] Last Admin: 08/24/18 08:38 Dose: 5 mg Ondansetron HCl (Zofran Tab*) 4 mg PO Q8H PRN PRN Reason: NAUSEA/VOMITING Last Admin: 08/22/18 20:57 Dose: 4 mg Pharmacy Profile Note (Lidocaine Patch Remove*) 1 note PATCH OFF DAILY [facility] Last Admin: 08/24/18 08:56 Dose: Not Given Polyethylene Glycol/Electrolytes (Miralax*) 17 gm PO BID [facility] Last Admin: 08/24/18 08:56 Dose: Not Given Trazodone HCl (Desyrel Tab*) 200 mg PO BEDTIME [facility] Last Admin: 08/23/18 20:29 Dose: 200 mg - Discharge Plan Discharge Plan: Outpatient Follow Up
[2018-08-24 14:27] LABS: Free T4 0.71 ng/dL (0.61-1.12)
[2018-08-24 17:01] LABS: Urine Appearance Cloudy; Urine Bacteria 1+ (Absent); Urine Bilirubin Negative (Negative); Urine Blood 3+ (Negative); Urine Color Straw; Urine Glucose Negative (Negative); Urine Ketones Negative (Negative); Urine Nitrite Negative (Negative); Urine Protein Negative (Negative); Urine Red Blood Cell 3+(>10/hpf) (Absent); Urine Specific Gravity 1.009 (1.010-1.030); Urine Squamous Epithelial Cell Present (Absent); Urine Urobilinogen Negative (Negative); Urine White Blood Cell 3+(>20/hpf) (Absent)
[2018-08-24] MEDS: Gabapentin CAP(*) 400 MG PO SCH (17:49)
[2018-08-24] MEDS: Mometasone 220 MCG MDI INH SCH (17:58)
[2018-08-24] MEDS: traZODone TAB* 100 MG PO SCH (22:28)
[2018-08-24] MEDS: Atorvastatin* 20 MG TAB PO SCH (22:28)
[2018-08-24] MEDS: Lidocaine PATCH 5%* 1 PATCH TRANSDERM SCH (22:29)
[2018-08-24] MEDS: OLANzapine TAB* 5 MG PO PRN (22:29)
[2018-08-25] MEDS: Nicotine Inhaler* 10 MG AMP INH PRN ×4 (00:50→16:26)
[2018-08-25] MEDS: Naproxen TAB* 250 MG PO SCH ×2 (09:28→21:17)
[2018-08-25] MEDS: DULoxetine DR CAP* 30 MG CAP.DR PO SCH (09:29)
[2018-08-25] MEDS: lamoTRIgine TAB(*) 100 MG PO SCH ×2 (09:29→21:17)
[2018-08-25] MEDS: DULoxetine DR CAP* 60 MG CAP.DR PO SCH (09:29)
[2018-08-25] MEDS: OLANzapine TAB* 5 MG PO SCH (09:29)
[2018-08-25] MEDS: Losartan TAB* 25 MG PO SCH (09:29)
[2018-08-25] MEDS: Cholecalciferol TAB* 1000 UNITS PO SCH ×2 (09:29→21:17)
[2018-08-25] MEDS: DULoxetine DR CAP* 20 MG CAP.DR PO SCH (09:30)
[2018-08-25] MEDS: Levothyroxine TAB* 175 MCG TAB PO SCH (09:31)
[2018-08-25] MEDS: Fluticasone NASAL SPRAY 50MCG* 16 gm SPRAY BTL BOTH NARES SCH ×3 (09:32→21:17)
[2018-08-25] MEDS: Nicotine GUM* 2 MG PO PRN ×3 (09:35→16:25)
[2018-08-25] MEDS: Ibuprofen TAB* 600 MG PO PRN ×2 (09:35→16:29)
[2018-08-25] MEDS: Insulin GLARGINE(*) 1 UNITS UNIT SUBCUT SCH (09:43)
[2018-08-25] MEDS: Lidocaine Patch REMOVE* 1 NOTE MISC PATCH OFF SCH (09:44)
[2018-08-25] MEDS: Polyethylene Glycol 3350* 17 GM PACKET PO SCH ×2 (09:44→21:17)
[2018-08-25] MEDS: Insulin LISPRO* 1 UNITS UNIT SUBCUT SCH ×3 (09:44→16:37)
[2018-08-25] MEDS: Phenazopyridine TAB* 100 MG PO SCH ×2 (14:09→21:17)
[2018-08-25] MEDS: Nitrofurantoin Macrocrystals* 50 MG CAP PO SCH ×3 (14:10→21:17)
--- NOTE | 2018-08-25 14:14 | PN ---
Subjective - Subjective Date of Service: 08/25/18 Service Type: [id number] Hosp care 25 min moderate complexity Subjective: patient reports continued flashbacks and requests increase in medications for anxiety. She c/o dysuria and back pain and reports efficacy with macrodantin. Objective - Appearance Appearance: Obese Dysmorphic Features: Yes Hygiene: Mal-odorous Grooming: Fairly Well Kept - Behavior Psychomotor Activities: Normal Exhibits Abnormal Movement: No - Attitude and Relatedness Attitude and Relatedness: Superficially Cooperative Eye Contact: Fair - Speech Quality: Unpressured Latencies: Normal Quantity: Copious - Mood Patient's Decription of Mood: "Anxious" - Affect Observed Affect: Depressed Affect Consistent with: Dysphoria - Thought Process Patient's Thought Process: Coherent, Circumstantial Thought Content: Yes Paranoid Ideation, No Passive Wish, No Suicidal Planning, No Homicidal Ideation - Sensorium Experiencing Hallucinations: No, Sensorium is Clear Type of Hallucinations: Visual: No, Auditory: No, Command: No - Level of Consciousness Level of Consciousness: Alert Orientation: Yes Intact, Yes Orientated to Time, Yes Orientated to Place, Yes Orientated to Person - Impulse Control Impulse Control: Poor - Insight and Judgement Insight and Judgement: Poor - Group Participation Particating in Group Activities: No - Medication Management Medication Management Adherence: Yes Assessment - Assessment Merits Inpatient Hospitalization: For Immediate Safety, For Stabilization Inpatient DSM-V Dx: F34.9 Clinical Impression: 53yo wf with hx of unspecified mood d/o and borderline personality d/o who presented to ED with suicidal ideation and recent attempts. Patient continues to endorse urges for self harm r/t PTSD symptoms. Discharge tentative for . Plan - Plan Treatment Plan: Name: CECILIO ALFARO Birthdate: 1965 [id number] continue acute intensive psychiatric treatment. continue behavior modification plan. add hydroxyzine prn anxiety; macrodantin and pyridium for UTI. discharge to [facility], tentative 08/28/18. Continued Medication Management: Different Medication Medications: Current Medications Acetaminophen (Tylenol Tab*) 650 mg PO Q4H PRN PRN Reason: for pain; or Temp >101 F Last Admin: 08/24/18 13:06 Dose: 650 mg Al Hydrox/Mg Hydrox/Simethicone (Maalox Plus*) 30 ml PO Q4H PRN PRN Reason: INDIGESTION Albuterol (Ventolin Hfa Inhaler*) 1 puff INH Q6H PRN PRN Reason: wheeze Atorvastatin Calcium (Lipitor*) 20 mg PO BEDTIME [facility] Last Admin: 08/24/18 22:28 Dose: 20 mg Cetirizine HCl (Zyrtec*) 10 mg PO DAILY PRN PRN Reason: Allergy Symptoms Cholecalciferol (Vitamin D Tab*) 1,000 units PO BID [facility] Last Admin: 08/25/18 09:29 Dose: 1,000 units Dextrose (D50w Syringe 50 Ml*) 12.5 gm IV PUSH .FOR FS < 60 - SS PRN PRN Reason: FS < 60 Duloxetine HCl (Cymbalta Cap*) 20 mg PO DAILY [facility] Last Admin: 08/25/18 09:30 Dose: 20 mg Duloxetine HCl (Cymbalta Cap*) 30 mg PO QAM [facility] Last Admin: 08/25/18 09:29 Dose: 30 mg Duloxetine HCl (Cymbalta Cap*) 60 mg PO DAILY [facility] Last Admin: 08/25/18 09:29 Dose: 60 mg Fluticasone Propionate (Flonase Nasal [place] 50mcg*) 2 spray BOTH NARES BID [facility] Last Admin: 08/25/18 14:12 Dose: 2 spray Gabapentin (Neurontin Cap(*)) 800 mg PO QPM [facility] Last Admin: 08/24/18 17:49 Dose: 800 mg Guaifenesin (Mucinex*) 600 mg PO BID PRN PRN Reason: CONGESTION Ibuprofen (Motrin Tab*) 600 mg PO TID PRN PRN Reason: PAIN Last Admin: 08/25/18 09:35 Dose: 600 mg Insulin Glargine (Lantus(*)) 66 units SUBCUT QAM [facility] Last Admin: 08/25/18 09:43 Dose: 66 units Insulin Human Lispro (Humalog*) 22 units SUBCUT AC [facility] Last Admin: 08/25/18 12:18 Dose: 22 units Lamotrigine (Lamictal Tab(*)) 100 mg PO BID [facility] Last Admin: 08/25/18 09:29 Dose: 100 mg Levothyroxine Sodium (Synthroid Tab*) 175 mcg PO QAM@0600 [facility] Last Admin: 08/25/18 09:31 Dose: 175 mcg Lidocaine (Lidoderm 5% Patch*) 1 patch TRANSDERM DAILY@2100 [facility] Last Admin: 08/24/18 22:29 Dose: 1 patch Losartan Potassium (Cozaar Tab*) 50 mg PO DAILY [facility] Last Admin: 08/25/18 09:29 Dose: 50 mg Mometasone Furoate (Asmanex 220 Mcg Mdi *) 1 puff INH QPM [facility] Last Admin: 08/24/18 17:58 Dose: 1 puff Naproxen (Naprosyn Tab*) 500 mg PO BID [facility] Last Admin: 08/25/18 09:28 Dose: 500 mg Nicotine (Nicotine Inhaler*) 10 mg INH Q2H PRN PRN Reason: CRAVING Last Admin: 08/25/18 12:43 Dose: 10 mg Nicotine Polacrilex (Nicotine Gum*) 2 mg PO Q2H PRN PRN Reason: CRAVINGS Last Admin: 08/25/18 12:43 Dose: 2 mg Nitrofurantoin Macrocrystals (Macrodantin*) 50 mg PO QID [facility] Last Admin: 08/25/18 14:10 Dose: 50 mg Olanzapine (Zyprexa Tab*) 5 mg PO DAILY [facility] Last Admin: 08/25/18 09:29 Dose: 5 mg Olanzapine (Zyprexa Tab*) 5 mg PO BEDTIME PRN PRN Reason: AGITATION/ANXIETY Last Admin: 08/24/18 22:29 Dose: 5 mg Ondansetron HCl (Zofran Tab*) 4 mg PO Q8H PRN PRN Reason: NAUSEA/VOMITING Last Admin: 08/22/18 20:57 Dose: 4 mg Pharmacy Profile Note (Lidocaine Patch Remove*) 1 note PATCH OFF DAILY [facility] Last Admin: 08/25/18 09:44 Dose: 1 note Phenazopyridine HCl (Pyridium Tab*) 100 mg PO TID [facility] Stop: 08/27/18 13:59 Last Admin: 08/25/18 14:09 Dose: 100 mg Polyethylene Glycol/Electrolytes (Miralax*) 17 gm PO BID [facility] Last Admin: 08/25/18 09:44 Dose: Not Given Trazodone HCl (Desyrel Tab*) 200 mg PO BEDTIME [facility] Last Admin: 08/24/18 22:28 Dose: 200 mg - Discharge Plan Discharge Plan: Inpatient Hospitalization Outpatient Program: [facility]
[2018-08-25] MEDS ORDERED: OLANzapine TAB* 2.5 MG PO PRN (14:32)
[2018-08-25] MEDS: hydrOXYzine HCL TAB* 25 MG PO PRN (16:29)
[2018-08-25] MEDS: Gabapentin CAP(*) 400 MG PO SCH (18:07)
[2018-08-25] MEDS: Mometasone 220 MCG MDI INH SCH (18:08)
[2018-08-25] MEDS: traZODone TAB* 100 MG PO SCH (21:16)
[2018-08-25] MEDS: Atorvastatin* 20 MG TAB PO SCH (21:17)
[2018-08-25] MEDS: Lidocaine PATCH 5%* 1 PATCH TRANSDERM SCH (21:24)
[2018-08-26] MEDS: Nicotine Inhaler* 10 MG AMP INH PRN ×3 (00:29→16:34)
[2018-08-26] MEDS: Levothyroxine TAB* 175 MCG TAB PO SCH (05:18)
[2018-08-26] MEDS: Polyethylene Glycol 3350* 17 GM PACKET PO SCH ×2 (10:45→20:06)
[2018-08-26] MEDS: DULoxetine DR CAP* 30 MG CAP.DR PO SCH (10:46)
[2018-08-26] MEDS: Losartan TAB* 25 MG PO SCH (10:46)
[2018-08-26] MEDS: Naproxen TAB* 250 MG PO SCH ×2 (10:47→20:05)
[2018-08-26] MEDS: Nitrofurantoin Macrocrystals* 50 MG CAP PO SCH ×5 (10:47→20:04)
[2018-08-26] MEDS: DULoxetine DR CAP* 60 MG CAP.DR PO SCH (10:47)
[2018-08-26] MEDS: DULoxetine DR CAP* 20 MG CAP.DR PO SCH (10:47)
[2018-08-26] MEDS: Cholecalciferol TAB* 1000 UNITS PO SCH ×2 (10:48→20:04)
[2018-08-26] MEDS: lamoTRIgine TAB(*) 100 MG PO SCH ×2 (10:48→20:05)
[2018-08-26] MEDS: OLANzapine TAB* 5 MG PO SCH (10:48)
[2018-08-26] MEDS: Fluticasone NASAL SPRAY 50MCG* 16 gm SPRAY BTL BOTH NARES SCH ×2 (10:49→20:06)
[2018-08-26] MEDS: Insulin LISPRO* 1 UNITS UNIT SUBCUT SCH ×3 (10:49→16:34)
[2018-08-26] MEDS: Insulin GLARGINE(*) 1 UNITS UNIT SUBCUT SCH (10:50)
[2018-08-26] MEDS: Phenazopyridine TAB* 100 MG PO SCH ×3 (10:56→20:03)
[2018-08-26] MEDS: Lidocaine Patch REMOVE* 1 NOTE MISC PATCH OFF SCH (10:57)
[2018-08-26] MEDS: Ondansetron TAB* 4 MG PO PRN ×2 (12:35→21:16)
--- NOTE | 2018-08-26 16:49 | PN ---
Subjective - Subjective Date of Service: 08/26/18 Subjective: Taryn complains of nausea, decreased appetite and GI upset that she attributes to newly started Macrobid for UTI, she has found Zofran prn helpful and wants to continue the treatment. She reports improvements in sleep and in previous flashbacks on the Olanzapine. She requests a room change, complains that her roommate woke her because she was snoring loudly. She accepts redirections that unit is at full census and staff will remind her roommate to not touch her. Per staff, she remains extremely needy but has been compliant with B-mod. Objective - Appearance Appearance: Obese Dysmorphic Features: No Hygiene: Normal Grooming: Well Kept - Behavior Psychomotor Activities: Normal Exhibits Abnormal Movement: No - Attitude and Relatedness Attitude and Relatedness: Needy Eye Contact: Fair - Speech Quality: Unpressured Latencies: Normal Quantity: Appropriate - Mood Patient's Decription of Mood: "Okay" - Affect Observed Affect: Non-labile - Thought Process Patient's Thought Process: Coherent, Goal Directed Thought Content: No Passive Wish, No Suicidal Planning, No Homicidal Ideation, No Paranoid Ideation - Sensorium Experiencing Hallucinations: No, Sensorium is Clear - Level of Consciousness Level of Consciousness: Alert Orientation: Yes Intact - Impulse Control Impulse Control: Tenuous - Insight and Judgement Insight and Judgement: Impaired - Group Participation Particating in Group Activities: No - Medication Management Medication Management Adherence: Yes Assessment - Assessment Merits Inpatient Hospitalization: Consolidate Improvements, For Discharge Planning Inpatient DSM-V Dx: F34.9 Clinical Impression: 53yo wf with hx of unspecified mood d/o and borderline personality d/o who presented to ED with suicidal ideation and recent attempts. Patient continues to endorse urges for self harm r/t PTSD symptoms. Discharge tentative for . Has engaged in superficial self-scratching to get staff's attention. She avidly denies SI. C/o dyspepsia from Macrobid. Aware of and agreeable to discharge back to [place] on Tuesday. Plan - Plan Treatment Plan: Name: TARYN ALFARO Birthdate: 1965 [id number] continue acute intensive psychiatric treatment. continue behavior modification plan. add hydroxyzine prn anxiety; macrodantin and pyridium for UTI. discharge to [place] assisted living, tentative 08/28/18. Medications: Current Medications Acetaminophen (Tylenol Tab*) 650 mg PO Q4H PRN PRN Reason: for pain; or Temp >101 F Last Admin: 08/24/18 13:06 Dose: 650 mg Al Hydrox/Mg Hydrox/Simethicone (Maalox Plus*) 30 ml PO Q4H PRN PRN Reason: INDIGESTION Albuterol (Ventolin Hfa Inhaler*) 1 puff INH Q6H PRN PRN Reason: wheeze Atorvastatin Calcium (Lipitor*) 20 mg PO BEDTIME [facility] Last Admin: 08/25/18 21:17 Dose: 20 mg Cetirizine HCl (Zyrtec*) 10 mg PO DAILY PRN PRN Reason: Allergy Symptoms Cholecalciferol (Vitamin D Tab*) 1,000 units PO BID [facility] Last Admin: 08/26/18 10:48 Dose: 1,000 units Dextrose (D50w Syringe 50 Ml*) 12.5 gm IV PUSH .FOR FS < 60 - SS PRN PRN Reason: FS < 60 Duloxetine HCl (Cymbalta Cap*) 20 mg PO DAILY [facility] Last Admin: 08/26/18 10:47 Dose: 20 mg Duloxetine HCl (Cymbalta Cap*) 30 mg PO QAM [facility] Last Admin: 08/26/18 10:46 Dose: 30 mg Duloxetine HCl (Cymbalta Cap*) 60 mg PO DAILY [facility] Last Admin: 08/26/18 10:47 Dose: 60 mg Fluticasone Propionate (Flonase Nasal [place] 50mcg*) 2 spray BOTH NARES BID [facility] Last Admin: 08/26/18 10:49 Dose: 2 spray Gabapentin (Neurontin Cap(*)) 800 mg PO QPM [facility] Last Admin: 08/25/18 18:07 Dose: 800 mg Guaifenesin (Mucinex*) 600 mg PO BID PRN PRN Reason: CONGESTION Hydroxyzine HCl (Atarax Tab*) 25 mg PO Q6H PRN PRN Reason: ANXIETY Last Admin: 08/25/18 16:29 Dose: 25 mg Ibuprofen (Motrin Tab*) 600 mg PO TID PRN PRN Reason: PAIN Last Admin: 08/25/18 16:29 Dose: 600 mg Insulin Glargine (Lantus(*)) 66 units SUBCUT QAM [facility] Last Admin: 08/26/18 10:50 Dose: 66 units Insulin Human Lispro (Humalog*) 22 units SUBCUT AC [facility] Last Admin: 08/26/18 16:34 Dose: 22 units Lamotrigine (Lamictal Tab(*)) 100 mg PO BID [facility] Last Admin: 08/26/18 10:48 Dose: 100 mg Levothyroxine Sodium (Synthroid Tab*) 175 mcg PO QAM@0600 [facility] Last Admin: 08/26/18 05:18 Dose: 175 mcg Lidocaine (Lidoderm 5% Patch*) 1 patch TRANSDERM DAILY@2100 [facility] Last Admin: 08/25/18 21:24 Dose: 1 patch Losartan Potassium (Cozaar Tab*) 50 mg PO DAILY [facility] Last Admin: 08/26/18 10:46 Dose: 50 mg Mometasone Furoate (Asmanex 220 Mcg Mdi *) 1 puff INH QPM [facility] Last Admin: 08/25/18 18:08 Dose: 1 puff Naproxen (Naprosyn Tab*) 500 mg PO BID [facility] Last Admin: 08/26/18 10:47 Dose: 500 mg Nicotine (Nicotine Inhaler*) 10 mg INH Q2H PRN PRN Reason: CRAVING Last Admin: 08/26/18 16:34 Dose: 10 mg Nicotine Polacrilex (Nicotine Gum*) 2 mg PO Q2H PRN PRN Reason: CRAVINGS Last Admin: 08/25/18 16:25 Dose: 2 mg Nitrofurantoin Macrocrystals (Macrodantin*) 50 mg PO QID [facility] Last Admin: 08/26/18 16:29 Dose: 50 mg Olanzapine (Zyprexa Tab*) 5 mg PO DAILY [facility] Last Admin: 08/26/18 10:48 Dose: 5 mg Olanzapine (Zyprexa Tab*) 5 mg PO BEDTIME PRN PRN Reason: AGITATION/ANXIETY Last Admin: 08/24/18 22:29 Dose: 5 mg Olanzapine (Zyprexa Tab*) 2.5 mg PO Q4H PRN PRN Reason: AGITATION Ondansetron HCl (Zofran Tab*) 4 mg PO Q8H PRN PRN Reason: NAUSEA/VOMITING Last Admin: 08/26/18 12:35 Dose: 4 mg Pharmacy Profile Note (Lidocaine Patch Remove*) 1 note PATCH OFF DAILY [facility] Last Admin: 08/26/18 10:57 Dose: 1 note Phenazopyridine HCl (Pyridium Tab*) 100 mg PO TID JULIO Stop: 08/27/18 13:59 Last Admin: 08/26/18 16:30 Dose: 100 mg Polyethylene Glycol/Electrolytes (Miralax*) 17 gm PO BID [facility] Last Admin: 08/26/18 10:45 Dose: 17 gm Trazodone HCl (Desyrel Tab*) 200 mg PO BEDTIME [facility] Last Admin: 08/25/18 21:16 Dose: 200 mg - Discharge Plan Discharge Plan: Outpatient Follow Up Outpatient Program: [facility]
[2018-08-26] MEDS: Mometasone 220 MCG MDI INH SCH (17:16)
[2018-08-26] MEDS: Gabapentin CAP(*) 400 MG PO SCH (17:16)
[2018-08-26] MEDS: traZODone TAB* 100 MG PO SCH (20:04)
[2018-08-26] MEDS: Atorvastatin* 20 MG TAB PO SCH (20:05)
[2018-08-26] MEDS: Lidocaine PATCH 5%* 1 PATCH TRANSDERM SCH (20:07)
[2018-08-27] MEDS: Nicotine Inhaler* 10 MG AMP INH PRN ×4 (00:47→20:49)
[2018-08-27] MEDS: Insulin GLARGINE(*) 1 UNITS UNIT SUBCUT SCH (10:23)
[2018-08-27] MEDS: Insulin LISPRO* 1 UNITS UNIT SUBCUT SCH ×3 (10:23→16:23)
[2018-08-27] MEDS: Naproxen TAB* 250 MG PO SCH ×2 (10:30→21:23)
[2018-08-27] MEDS: Phenazopyridine TAB* 100 MG PO SCH (10:30)
[2018-08-27] MEDS: Losartan TAB* 25 MG PO SCH (10:31)
[2018-08-27] MEDS: DULoxetine DR CAP* 30 MG CAP.DR PO SCH (10:31)
[2018-08-27] MEDS: DULoxetine DR CAP* 20 MG CAP.DR PO SCH (10:31)
[2018-08-27] MEDS: Nitrofurantoin Macrocrystals* 50 MG CAP PO SCH ×4 (10:31→21:24)
[2018-08-27] MEDS: DULoxetine DR CAP* 60 MG CAP.DR PO SCH (10:31)
[2018-08-27] MEDS: lamoTRIgine TAB(*) 100 MG PO SCH ×2 (10:32→21:23)
[2018-08-27] MEDS: Levothyroxine TAB* 175 MCG TAB PO SCH (10:32)
[2018-08-27] MEDS: Lidocaine Patch REMOVE* 1 NOTE MISC PATCH OFF SCH (10:32)
[2018-08-27] MEDS: OLANzapine TAB* 5 MG PO SCH (10:32)
[2018-08-27] MEDS: Cholecalciferol TAB* 1000 UNITS PO SCH ×2 (10:35→21:23)
[2018-08-27] MEDS: Fluticasone NASAL SPRAY 50MCG* 16 gm SPRAY BTL BOTH NARES SCH ×2 (10:35→21:37)
[2018-08-27] MEDS: Polyethylene Glycol 3350* 17 GM PACKET PO SCH ×3 (10:36→21:39)
[2018-08-27] MEDS ORDERED: Mouth Piece, Nicotine* 1 EACH CARTRIDGE ONE (10:38)
[2018-08-27] MEDS: Nicotine GUM* 2 MG PO PRN (10:39)
[2018-08-27] MEDS: Ibuprofen TAB* 600 MG PO PRN (16:25)
[2018-08-27] MEDS: Gabapentin CAP(*) 400 MG PO SCH (17:26)
[2018-08-27] MEDS: Mometasone 220 MCG MDI INH SCH (17:26)
[2018-08-27] MEDS: Atorvastatin* 20 MG TAB PO SCH (21:23)
[2018-08-27] MEDS: Lidocaine PATCH 5%* 1 PATCH TRANSDERM SCH (21:23)
[2018-08-27] MEDS: traZODone TAB* 100 MG PO SCH (21:23)
[2018-08-27] MEDS: OLANzapine TAB* 5 MG PO PRN (21:36)
[2018-08-28] MEDS: Ibuprofen TAB* 600 MG PO PRN (00:32)
[2018-08-28] MEDS: hydrOXYzine HCL TAB* 25 MG PO PRN (00:33)
[2018-08-28] MEDS: Insulin LISPRO* 1 UNITS UNIT SUBCUT SCH (08:13)
[2018-08-28] MEDS: lamoTRIgine TAB(*) 100 MG PO SCH (09:31)
[2018-08-28] MEDS: DULoxetine DR CAP* 60 MG CAP.DR PO SCH (09:31)
[2018-08-28] MEDS: DULoxetine DR CAP* 30 MG CAP.DR PO SCH (09:31)
[2018-08-28] MEDS: Cholecalciferol TAB* 1000 UNITS PO SCH (09:32)
[2018-08-28] MEDS: Losartan TAB* 25 MG PO SCH (09:32)
[2018-08-28] MEDS: DULoxetine DR CAP* 20 MG CAP.DR PO SCH (09:32)
[2018-08-28] MEDS: Naproxen TAB* 250 MG PO SCH (09:33)
[2018-08-28] MEDS: OLANzapine TAB* 5 MG PO SCH (09:33)
[2018-08-28] MEDS: Nitrofurantoin Macrocrystals* 50 MG CAP PO SCH (09:34)
[2018-08-28] MEDS: Levothyroxine TAB* 175 MCG TAB PO SCH (09:34)
[2018-08-28] MEDS: Polyethylene Glycol 3350* 17 GM PACKET PO SCH (09:35)
[2018-08-28] MEDS: Fluticasone NASAL SPRAY 50MCG* 16 gm SPRAY BTL BOTH NARES SCH (09:35)
[2018-08-28] MEDS: Lidocaine Patch REMOVE* 1 NOTE MISC PATCH OFF SCH (09:36)
[2018-08-28] MEDS: Insulin GLARGINE(*) 1 UNITS UNIT SUBCUT SCH (09:38)
[2018-08-28 10:00] VITALS: BP 128/85
[2018-08-28] MEDS: Nicotine Inhaler* 10 MG AMP INH PRN (10:23)
--- NOTE | 2018-08-29 01:12 | DS ---
CC: [facility], Attention: Samira Gardiner; [facility] ; Dr. Schroeder * DISCHARGE SUMMARY: DATE OF ADMISSION: 08/22/18 DATE OF DISCHARGE: 08/28/18 SUPERVISING PSYCHIATRIST: Dr. Raheem Cunningham.* (DICTATED BY TONEY FERRARA NP) DISCHARGE DIAGNOSES: 1. Unspecified mood disorder. 2. Borderline personality disorder. CONDITION AT TIME OF DISCHARGE: Improved. The patient denies suicidal ideation. She denies passive wish. She has been calm and in behavioral control while on the unit. She has been safe on all checks. The patient reports anxiety pending return to [place]. She has also identified necessary steps to take to return to [place] and coordinate with team for preparation of eviction. The patient met with this film writer, her mother, and psychiatric social worker and discussed empowering herself to make healthy decisions. The patient was receptive to normalization of difficulty with transition. She was strongly encouraged to identify her own behaviors and to avoid blaming others. MENTAL STATUS EXAM: Taryn is a 53-year-old white female, obese, appears slightly older than stated age. She is adequately groomed and wearing her own casual clothing. ADLs are completed. She is standing next to her walker and is cooperative with interview. She makes good eye contact. Speech is normal volume, mildly mumbled. Mood is euthymic with full range of affect. Thought process is logical, coherent, and goal directed. Thought content is negative for suicidal ideation or passive wish. She denies HI or . She denies auditory or visual hallucinations. She endorses flashbacks. Insight and judgment are poor to fair. The patient is alert and oriented x3. Fund of knowledge is adequate. INSTRUCTIONS GIVEN TO PATIENT: A. Medications: The patient was prescribed the final few days of Macrodantin. The rest of her medications are unchanged and are as follows: 1. Acetaminophen 650 mg p.o. q.4 hours p.r.n. pain/fever. 2. Maalox 30 mL p.o. q.4 hours p.r.n. indigestion. 3. Albuterol inhaler 1 puff inhaled q.6 hours p.r.n. wheeze. 4. Atorvastatin 20 mg p.o. q.h.s. 5. Cetirizine 10 mg daily. 6. Vitamin D tab 1000 units p.o. b.i.d. 7. Duloxetine DR 110 mg p.o. daily. 8. Flonase nasal spray 2 sprays both nares b.i.d. 9. Gabapentin 800 mg p.o. q.p.m. 10. Guaifenesin ER 600 mg p.o. b.i.d. p.r.n. congestion. 11. Ibuprofen 600 mg p.o. t.i.d. pain. 12. Lantus insulin 66 units subcutaneous q.a.m. 13. Regular insulin 22 units a.c. 14. Lamotrigine 100 mg p.o. b.i.d. 15. Levothyroxine 175 mcg p.o. q.a.m. 16. Lidocaine patch 1 daily, remove after 12 hours. 17. Losartan 50 mg p.o. daily. 18. Ellipta 100 mcg inhaled q.a.m. 19. Naproxen 500 mg p.o. b.i.d. 20. Olanzapine 5 mg p.o. b.i.d., changed from daily. 21. Ondansetron 4 mg p.o. q.8 hours p.r.n. nausea. 22. MiraLAX 17 g p.o. b.i.d. 23. Trazodone 200 mg p.o. at bedtime. B. Diet: Diabetic diet. C. Activity: Ambulation as tolerated. Tobacco cessation was provided to the patient. There are no pending labs or diagnostic studies. D. Followup care: She will follow up with [facility] on with Dr. Villar and on 09/04/18 with nurse therapist, Sahil. She can follow up with her primary care provider, Dr. Schroeder and has an appointment on 09/06/18 at 2 p.m. She was given a referral for family care and this information was forwarded to [facility]. [place] Substance use followup: Not applicable. HOSPITAL COURSE - PART A: Reason for admission: The patient presented to the emergency department with suicidal ideation and a recent increase in behavioral outbursts at the [place] [facility] where she resides. She was given a 30-day eviction notice due to destructive, violent, and self-injurious behavior. The patient described hallucinations and blacking out. With further conversation, it is likely that she is having dissociative episodes. HOSPITAL COURSE - PART B: Psychiatric treatment rendered. The patient was admitted on involuntary status. Her code status is full. She was placed on 15 - minute checks for her safety. She was notified of behavior modification and expectations of behavior on the unit. The patient participated in unit programming. With staff assistance, she demonstrated distress and frustration intolerance when agitated by peers. She was reminded that she is in control of her behavior. She reported dysuria and was noted to have a urinalysis indicative of urinary tract infection. She was started on Macrodantin and Pyridium. Micro result came back with no clinically significant organisms. The patient was given this information and encouraged to continue antibiotic treatment until course completed. As stated above, providers met with the patient and her mother and discussed treatment planning. The patient enquired about being able to interact with the friends she has made at the current [place] [facility]. She is encouraged to return and participate in conversations with her friends for closure. The patient reported improvement in symptoms with increase of olanzapine. She utilized hydroxyzine as needed for anxiety. Patient was offered a taxi but requested that her mother provide transportation. Commercial Sales Specialist phoned patient's mother and coordinated tow picker time. Questions answered about patient's progress and discharge plan. TONEY FERRARA NP [id number]/CPS #: [id number]
== END 2018-08-28 12:15 | disposition home or self-care (01) | DRG 885 ==
LOC: ED 01:31 → BSU 14:02
PROVIDERS: ADMIT Psychiatry & Neurology Psychiatry; ATTEND Psychiatry & Neurology Psychiatry
DX: F39 Unspecified mood [affective] disorder (principal); R45.851 Suicidal ideations; K86.1 Other chronic pancreatitis; N39.0 Urinary tract infection, site not specified; F79 Unspecified intellectual disabilities; F60.3 Borderline personality disorder; E11.9 Type 2 diabetes mellitus without complications; E66.9 Obesity, unspecified; F17.210 Nicotine dependence, cigarettes, uncomplicated; E03.9 Hypothyroidism, unspecified; K21.9 Gastro-esophageal reflux disease without esophagitis; K58.9 Irritable bowel syndrome, unspecified; M54.9 Dorsalgia, unspecified; M51.36 Other intervertebral disc degeneration, lumbar region; Z68.32 Body mass index [BMI] 32.0-32.9, adult; Z79.84 Long term (current) use of oral hypoglycemic drugs; Z79.1 Long term (current) use of non-steroidal anti-inflammatories (NSAID); Z79.4 Long term (current) use of insulin; Z79.51 Long term (current) use of inhaled steroids; Z79.899 Other long term (current) drug therapy; Z88.0 Allergy status to penicillin; Z88.2 Allergy status to sulfonamides; Z88.8 Allergy status to other drugs, medicaments and biological substances; Z91.040 Latex allergy status
CPT/HCPCS: 36415; 74018; 80053; 80061; 80320; 80329; 81003; 81015; 83036; 84439; 84443; 85025; 87086; 90853; 99222; 99231; 99232; 99238; 99284; A9270-GY; G0480

== ENCOUNTER 2018-10-08 15:12 | Emergency (ER) | payer MEDICARE, MEDICAID ==
--- OUTSIDE RECORDS SUMMARY | 2018-10-08 15:18 | XMS REPORT | Continuity of Care Document ---
:1965 External Reference #:[id number] Author Name Joel Gray Care Team Providers Name Role Phone Rosa Schroeder M.D. Primary Care Physician Unavailable Payers Date Identification Numbers Payment Provider Subscriber Effective: 1991 Policy Number: [id number] Medicare Taryn Alfaro PayID: [id number] [address] [place] [address] Policy Number: [id number] Medicaid Taryn Alfaro Group Name: 1 [address] PayID: [id number] [place] [address] Advance Directives Description No Information Available Problems Date Description Provider Status Onset: 06/13/2017 Type 2 diabetes mellitus Chapo Aguila M.D. Active Onset: 06/13/2017 Hypothyroidism Chapo Agulia M.D. Active Onset: 06/13/2017 Gastroesophageal reflux disease [...] MD Active Family History Date Family Member(s) Observation Comments General Cancer Father Depression Father due to Operative () - after colonoscopy Complications Father Cancer Mother Alive And Well Social History Type Date Description Comments Sex Unknown Marital Status also with severe mental illness Lives With Assisted living [place] since March 2018. Was at [facility] from October-Apr 2018 Occupation Unemployed Occupation Disabled Tobacco Use Start: Unknown Patient was a states she is cigarette smoker, quitting current status is unknown ETOH Use 07/26/2018 Denies alcohol use Recreational Drug Use Former Drug User Tobacco Use Start: Unknown Patient is a former End: Unknown smoker Smoking Status Reviewed: 09/25/18 Patient is a former smoker Exercise Type/Frequency Exercises rarely Allergies, Adverse Reactions, Alerts Date Description Reaction Status Severity Comments 05/10/2017 Latex Urticaria Active 05/10/2017 Sulfa Antibiotics hives Active 05/10/2017 Penicillins Urticaria Active 05/10/2017 Nalbuphine Active 05/10/2017 Perphenazine Active 05/10/2017 Ciprofloxacin dizziness Active 05/10/2017 Tramadol altered mental status Active 05/10/2017 [employer] Active 05/08/2018 Lurasidone Active Moderate 05/22/2018 Metformin Diarrhea Active Medications Medication Date Status Form Strength Qnty SIG Indications Ordering Provider Anbesol Maximum 09/21/ Active Gel 20% 27gm apply to 2018 gingiva as Schroeder, needed Nicolo CQ 09/06/ Active Patches 21mg/24HR 28uni apply one F17.210 2018 24HR ts to skin Schroeder, every day Gabapentin 09/06/ Active Capsules 100mg 60cap 2 tabs at Other 2019 s bedtime Ordering Provider Creon 09/06/ Active Caps DR 4648-4544 90cap one po tid R19.7 2018 Part Unit s right Schroeder, before meals Onetouch Delica 09/04/ Active Misc 100un test 2 - 3 E11.9 Lawrence Mar Extra 2019 its times a day Katelyn Ospina 33G M.D.,FACP Arnuity Ellipta 07/26/ Active Aerosol 100mcg/Ac 30uni 1 puff 2017 t ts inhaled Schroeder, every day Levothyroxine 07/17/ Active Tablets 175mcg 30tab take 175mcg E03.9 Mayer Sodium 2018 s daily on an MD Lori empty stomach Depend 12/03/ Active Misc 120un use four Adjustable 2017 its times a day Alexandre, Underwear L/XL Naproxen 06/29/ Active Tablets 500mg 14tab take 1 2017 s tablet Kamille Denson, twice daily M.D.,FACP with food prn Flonase Allergy 06/23/ Active Suspension 50mcg/Act 9.900 2 sprays in 2017 ml each Schroeder, nostril twice a day Fiasp Flextouch 05/19/ Active Solution 100Unit/M 45ml 22 units E11.65 2017 Pen-Inject L per meal 3 Schroeder, times daily Basaglagustina 05/19/ Active Solution 100Unit/M 6ml 66 units Robyn Kwikpen 2017 Pen-Inject L once daily MD Cesar Nicotrol 05/18/ Active Inhaler 10mg 168un 1 2017 its cartridges Kamille Denson, every 2 M.D.,FACP hours as needed Nystatin 05/15/ Active Powder 021080Onx 90gm apply twice 2017 t/GM daily until Schroeder, rash clears MD Elmore Auto 05/15/ Active Misc -08/08" 1unit use this to 2017 s ambulate Schroeder, Adjustment daily for MD Penny/-08/08" unsteady gait Ventolin HFA 05/15/ Active Aerosol 108(90Bas 8gm 2 by mouth 2017 e) every 4 Schroeder, mcg/Act hours as MD needed Onetouch Ultra 09/09/ Active Strips 100un test up to Z79.4 Blue 2018 its three times Schroeder, daily last MD visit:05/08 E11.65 E11.9 BD Pen 08/24/2017 Active Misc 32G 120units use three E11.9 Needle/Suzanna/Ultra X 4 times a day Schroeder, Fine/32G X 4mm mm daily. last MD visit 05/22/18 Depend Pant Extra 06/14/2017 Active Misc 120units use 4 x a Rosa Large day or as Schroeder, needed Olanzapine Active Tablets 5mg 90tabs one tab PO Rosa bid MD Alexandre Trazodone HCL Active Tablets 100m 90tabs 1 tab at Rosa g bedtime MD Alexandre Onetouch Ultra Mini Active Kit w/De 1units check bs up E11.65 Mirlande rodgers to three l D. times daily Adelina Denson,FAC P Atorvastatin Active Tablets 20mg 90tabs take 1 Rosa Calcium tablet at Schroeder, bedtime Lamotrigine Active Tablets 100m 180tabs 1 by mouth Rosa g twice a day MD Alexandre Losartan Potassium Active Tablets 50mg 90tabs 1 by mouth E11.65 Rosa every day MD Alexandre Loratadine Active Capsules 10mg 90caps once a day Rosa for Schroeder, allergies as MD needed Duloxetine HCL Active Caps DR 20mg 90caps 1 by mouth Rosa Part every day Schroeder, with 60mg MD tab Duloxetine HCL Active Caps DR 60mg 90caps 1 by mouth Rosa Part every day Schroeder, with 20mg MD tab Vitamin D3 Active Capsules 1000 180caps 1 by mouth Rosa Unit twice daily MD Alexandre Lidoderm Active Patches 5% 60units 1 apply to Rosa affected Schroeder, area 12 MD hours on, 12 hours off Acetaminophen Active Tablets 325m 2 tablets by Unknown g mouth every 4 hours as needed for pain/fever Maalox Max Active Suspensio 400- 30 Unknown n 400- milliliters 40mg by mouth /5ML q4hr as needed indigestion Cetirizine HCL Active Tablets 10mg 1 by mouth Unknown every day Guaifenesin Active Tablets 200m take 3 tabs Unknown g PO bid prn congestion Ibu Active Tablets 600m take one Unknown g tablet PO T.I.D pain Asmanex Twisthaler Active Aerosol 220m 2 puff Unknown 120 Metered Doses cg/I q.a.m. nh Miralax Active Powder 17 grams by Unknown mouth every day as needed Azithromycin 07/26/2018 Hx Tablets 250m 6tabs 2 every day Jadiel-Kari - g for 1 day, l D. 07/31/2018 then 1 every [place], day M.Kamille,FAC P Methylprednisolone 06/29/2018 Hx TBPK 4mg 21units take as Miguel - instructed Jonah 07/21/2018 per MD samuel dose pack instructions Mucinex DM 06/23/2018 Hx Tablets 30-6 14tabs one po bid Rosa - ER 12HR 00mg Schroeder, 07/03/2018 MD Ibuprofen 05/29/2018 Hx Tablets 600m 30tabs 1 po three Rosa - g times a day Schroeder, 07/03/2018 as needed MD for pain, take with food Clindamycin 05/22/2018 Hx Gel 1% 60gm apply to R15.1 Rosa Phosphate - affected Schroeder, 07/03/2018 area twice a MD day for 14 days Shower Chair 05/15/2018 Hx 1units use when Rosa - taking a Schroeder, 07/03/2018 shower for MD unsteady gait Metformin HCL ER 05/12/2018 Hx Tablets 500m 90tabs take 1 Rosa - ER 24HR g tablet by Schroeder, 05/22/2018 mouth once a MD day with dinner Januvia 05/08/2018 Hx Tablets 50mg 90tabs one by mouth E11.65 Rosa - daily Schroeder, 07/18/2018 MD Depend Adjustable 05/08/2018 Hx Misc 120units use four R15.1 Rosa Underwear L/XL - times a day Schroeder, 07/03/2018 MD Exercise 05/08/2018 Hx Pt allowed E11.65 Rosa - to engage in Schroeder, 07/03/2018 exercise at [place] facilities under direct supervision of staff Trehenrry Flextouch 10/13/2017 Hx Solution 100U 15ml 100 units at E11.65 Chapo - Pen-Injec nit/ bedtime Pachikar 05/08/2018 t ML Adelina beltran Losartan Potassium 10/13/2017 Hx Tablets 25mg 30tabs 1 by mouth E11.65 [place] - once a day Pachikar 05/08/2018 Adelina beltran Hydrocodone-Acetami 10/10/2017 Hx Tablets 5-32 20tabs 1 tab every Chapo nophen - 5mg 12h as Pachikar 05/08/2018 needed Adelina beltran Tresiba Flextouch 09/19/2017 Hx Solution 100U 15ml 60 units at E11.65 Chapo - Pen-Injec nit/ bedtime Pachikar 10/13/2017 t ML Adelina beltran Onetouch Ultrasoft 08/31/2017 Hx Misc 100units test blood E11.9 Alyson Paulets - 2-3 a day or l D. 09/04/2018 as needed Adelina Denson,FAC P Onetouch Ultra Mini 08/31/2017 Hx Lancets 100units check bs Chapo - twice daily Pachikar 05/08/2018 Adelina beltran Onetouch Ultra Mini 08/31/2017 Hx Strips 100units test up to E11.9 Mirlande - three times l D. 09/09/2017 daily last Janiya, visit: Adelina,FAC 8 P Mucinex 08/28/2017 Hx Tablets 600m 20tabs 1 po bid prn Mirladne - ER 12HR g l D. 05/08/2018 Adelina Denson,FAC P Doxycycline 08/28/2017 Hx Capsules 100m 13caps 1 by mouth Unknown Monohydrate - g twice a day 09/04/2017 x 7 days Tresiba Flextouch 08/26/2017 Hx Solution 200U 18ml 30u SC in Am Jadiel- Kari - Pen-Injec nit/ and 70u SC l D. 09/19/2017 t ML in PM Adelina Denson,FAC P Azithromycin 08/26/2017 Hx Tablets 250m 2 tabs by Unknown - g mouth on day 08/31/2017 1; 1 tab by mouth every day on days 2-5 Tramadol HCL 08/26/2017 Hx Tablets 50mg 30tabs 1 tab by Jadiel-Kari - mouth three l D. 09/28/2017 times a day Adelina Denson,FAC P Fluconazole 08/22/2017 Hx Tablets 150m 2tabs one by mouth Jadiel-Kari - g may repeat l D. 05/08/2018 in 3 days as [place] Denson M.D.,FAC P Lancets 28G 08/08/2017 Hx Misc 28G 100units use with one [place] - touch meter, Pachikar 08/31/2017 check bs Adelina beltran daily Onetouch 08/08/2017 Hx Strips 100units test twice [place] - daily and as Pachikar 08/31/2017 needed Adelina beltran Janumet 07/15/2017 Hx Tablets 50-5 60tabs 1 by mouth E11.9 Chapo - 00mg twice a day Pachikar 05/08/2018 Adelina beltran Glucocom Blood 07/03/2017 Hx Kit W/De 1units one touch Erik Glucose Monitoring - [facility] glucometer Kavita, System 08/31/2017 to measure M.D. blood sugar daily Nicotrol 06/13/2017 Hx Inhaler 10mg 168units use 4-5 F17.21 Chapo - times daily 0 Pachikar 05/08/2018 Adelina beltran Clotrimazole 06/13/2017 Hx Cream 1% 90gm apply twice B37.9 [place] - daily Pachikar 05/08/2018 Adelina beltran Acetaminophen-Codei 05/26/2017 Hx Tablets 300- 20tabs 1 tab by Chapo ne #3 - 30mg mouth every Pachikar 05/08/2018 4-6 hours as Adelina beltran needed for pain Ibuprofen Hx Tablets 600m as needed [place] - g i, 05/08/2018 LUZ Newman Ondansetron Hx Tablets 8mg every 6-8 [place] - Dispers hours as i, 05/08/2018 needed LUZ Newman Pantoprazole Sodium Hx Tablets 40mg 30tabs take 1 [place] - DR tablet by Pachikar 05/08/2018 mouth once a, MJarredDJarred daily Lamotrigine Hx Tablets 150m take 1 Unknown - g tablet by 05/08/2018 mouth twice a day Sertraline HCL Hx Tablets 100m Take 1+1/2 Unknown - g Tablets By 05/08/2018 Mouth Once Daily Novolog Flexpen Hx Solution 100U Inject 15 Unknown - Unknown Pen-Injec nit/ Units Subq t ML Three Times A Day With Meals Cyclobenzaprine HCL Hx Tablets 10mg as needed Unknown - 09/28/2017 Latuda Hx Tablets 80mg daily Unknown - 05/08/2018 Levothyroxine Hx Tablets 50mc 90tabs 1 tab daily [place] Sodium - g in the empty Pachikar 05/08/2018 stomach a, M.D. Levothyroxine Hx Tablets 200m 90tabs 1 tab daily Chapo Sodium - cg am in the Pachikar 05/08/2018 empty a, M.D. stomach Naproxen Hx Tablets 500m 60tabs twice daily [place] - g Pach[place]ar 07/15/2017 a, M.D. Lantus Solostar Hx Solution 100U 15ml 30 units SC Jadiel-Kari - Pen-Injec nit/ in Am, and l D. 08/26/2017 t ML 70 units SC Janiya, devin watters M.D.,FAC P Atorvastatin Hx Tablets 40mg 90tabs take one [place] Cal[facility] 05/[facility]2018 mouth every a, M.D. day Pictonix Hx 40 mg daily Unknown - Unknown Novalog Hx 10 units Unknown - before meals 05/08/2018 Levothyroxine Hx Tablets 150m 90tabs 1 by mouth E03.9 Rosa Sodium - cg every day Alexandre, 07/17/2018 MD Rain Meekspen Hx Solution 100U 9ml 4-10 Units E11.65 Rosa - Pen-Injec nit/ SQ three Schroeder, 05/19/2018 t ML times a day, at mealtime, per sliding scale instructions Metformin HCL Hx Tablets 500m 1 by mouth Unknown - g twice a day 05/08/2018 Naproxen Hx Tablets 375m 180tabs twice a day Rosa - g with food Alexandre, 07/03/2018 Gabapentin Hx Capsules 400m 270caps take one Rosa - g capsule by Alexandre, 09/06/2018 mouth 3 MD times a day Lantus Solostar Hx Solution 100U 45ml 40 units Rosa - Pen-Injec nit/ twice daily Schroeder, 05/22/2018 t ML Lantus Hx Solution 100U 66 units Unknown - nit/ subcutaneous 09/05/2018 ML q.a.m. Medications Administered in Office Medication Date Status Form Strength Qnty SIG Indications Ordering Provider Justice Administered Injection Naveed F 40MG 018 MD Venecia Immunizations CPT Code Status Date Vaccine Lot # [id number] Given 05/01/2018 Influenza Virus Vaccine, Quadrivalent, Split, Preservative Free Vital Signs Date Vital Result Comment 09/25/2018 3:24pm Height 67 inches 5'7" Weight 253.00 lb BP Systolic 120 mmHg BP Diastolic 86 mmHg Pain Level 5 BMI (Body Mass Index) 39.6 kg/m2 09/06/2018 1:48pm Height 67 inches 5'7" Weight 253.00 lb Heart Rate 100 /min BP Systolic Sitting 120 mmHg BP Diastolic Sitting 88 mmHg Respiratory Rate 14 /min Body Temperature 99.1 F BMI (Body Mass Index) 39.6 kg/m2 07/26/2018 3:05pm Height 67 inches 5'7" Weight [...] Test Result H/L Range Note Laboratory test 08/22/2018 [facility] Acetaminophen < 15 g/mL [address] [place] [address] [phone] Alcohol < 10 mg/dL N <10 Salicylate < 2.50 mg/dL <30 TSH (Thyroid Stim Horm) 8.26 mcIU/mL High 0.34-5.60 Comp Metabolic Panel 08/22/2018 [facility] Sodium 139 mmol/L N 135-[address] [place] [address] [phone] Potassium 4.7 mmol/L N 3.5-5.0 Chloride 104 mmol/L N 101-111 Co2 Carbon Dioxide 26 mmol/L N 22-32 Anion Gap 9 mmol/L N 2-11 Glucose 166 mg/dL High 70-100 Blood Urea Nitrogen 15 mg/dL N 6-24 Creatinine 0.96 mg/dL High 0.51-0.95 BUN/Creatinine Ratio 15.6 N 8-20 Calcium 9.8 mg/dL N 8.6-10.3 Total Protein 7.3 g/dL N 6.4-8.9 Albumin 3.6 g/dL N 3.2-5.2 Globulin 3.7 g/dL N 2-4 Albumin/Globulin Ratio 1.0 N 1-3 Total Bilirubin 0.30 mg/dL N 0.2-1.0 Alkaline Phosphatase 184 U/L High 34-104 Alt 37 U/L N 7-52 Ast 36 U/L N 13-39 Egfr Non- 61.0 >60 Egfr 73.8 >60 2 CBC Auto Diff 08/22/2018 [facility] White Blood 10.7 10^3/uL N 3.5-10.[address] [place] [address] [phone] Red Blood Count 4.66 10^6/uL N 4.00-5.40 Hemoglobin 13.1 g/dL N 12.0-16.0 Hematocrit 41 % N 35-47 Mean Corpuscular Volume 88 fL N 80-97 Mean Corpuscular Hemoglobin 28 pg N 27-31 Mean Corpuscular HGB Conc 32 g/dL N 31-36 Red Cell Distribution Width 17 % High 10.5-15 Platelet Count 258 10^3/uL N 150-450 Mean Platelet Volume 8.9 fL N 7.4-10.4 Abs Neutrophils 6.5 10^3/uL N 1.5-7.7 Abs Lymphocytes 3.4 10^3/uL N 1.0-4.8 Abs Monocytes 0.5 10^3/uL N 0-0.8 Abs Eosinophils 0.3 10^3/uL N 0-0.6 Abs Basophils 0.1 10^3/uL N 0-0.2 Abs Nucleated RBC 0 10^3/uL Granulocyte % 60.5 % Lymphocyte % 31.4 % Monocyte % 4.8 % Eosinophil % 2.6 % Basophil % 0.7 % Nucleated Red Blood Cells % 0 Laboratory test 08/22/2018 [facility] Point of 202 mg/dL High 70-100 [address] [place] [address] [phone] Laboratory test 08/22/2018 [facility] Point of 321 mg/dL High 70-100 [address] [place] [place] [address] [phone] CBC Auto Diff 08/19/2018 [facility] White Blood 9.3 N 3.5- 10.[address] Count 10^3/[place] [address] [phone] Red Blood Count 4.42 10^6/uL N 4.00-5.40 Hemoglobin 12.5 g/dL N 12.0-16.0 Hematocrit 39 % N 35-47 Mean Corpuscular Volume 88 fL N 80-97 Mean Corpuscular Hemoglobin 28 pg N 27-31 Mean Corpuscular HGB Conc 32 g/dL N 31-36 Red Cell Distribution Width 17 % High 10.5-15 Platelet Count 186 10^3/uL N 150-450 Mean Platelet Volume 9.0 fL N 7.4-10.4 Abs Neutrophils 5.8 10^3/uL N 1.5-7.7 Abs Lymphocytes 2.8 10^3/uL N 1.0-4.8 Abs Monocytes 0.5 10^3/uL N 0-0.8 Abs Eosinophils 0.2 10^3/uL N 0-0.6 Abs Basophils 0.1 10^3/uL N 0-0.2 Abs Nucleated RBC 0 10^3/uL Granulocyte % 62.4 % Lymphocyte % 29.7 % Monocyte % 5.0 % Eosinophil % 2.3 % Basophil % 0.6 % Nucleated Red Blood Cells % 0.1 Comp Metabolic Panel 08/19/2018 [facility] Sodium 139 mmol/L N 135-[address] [place] [address] [phone] Chloride 108 mmol/L N 101-111 Co2 Carbon Dioxide 22 mmol/L N 22-32 Calcium 9.4 mg/dL N 8.6-10.3 Albumin 3.6 g/dL N 3.2-5.2 Total Bilirubin 0.20 mg/dL N 0.2-1.0 Glucose 126 mg/dL High 70-100 Blood Urea Nitrogen 11 mg/dL N 6-24 Creatinine 0.82 mg/dL N 0.51-0.95 BUN/Creatinine Ratio 13.4 N 8-20 Total Protein 7.0 g/dL N 6.4-8.9 Globulin 3.4 g/dL N 2-4 Albumin/Globulin Ratio 1.1 N 1-3 Alkaline Phosphatase 193 U/L High 34-104 Alt 44 U/L N 7-52 Egfr Non- 73.2 >60 Egfr 88.6 >60 5 Potassium 4.5 mmol/L N 3.5-5.0 Anion Gap 9 mmol/L N 2-11 Ast 47 U/L High 13-39 Laboratory test 08/19/2018 [facility] HCG 2.61 mIU/mL [address] [place] [address] [phone] Acetaminophen < 15 g/mL 7 Alcohol < 10 mg/dL N <10 Salicylate < 2.50 mg/dL <30 TSH (Thyroid Stim Horm) 7.94 mcIU/mL High 0.34-5.60 Laboratory 08/17/2018 [facility] Point of Care 145 mg/dL High 70-100 8 test finding [address] [place] [address] [phone] Laboratory 08/15/2018 [facility] Miscellaneous See 9, 10 test finding [address] [place] [address] [phone] Comp 07/31/2018 [facility] Sodium 136 mmol/L N 135-145 [address] [place] [address] [phone] Potassium 4.9 mmol/L N 3.5-5.0 Chloride 104 mmol/L N 101-111 Co2 Carbon Dioxide 24 mmol/L N 22-32 Anion Gap 8 mmol/L N 2-11 Glucose 144 mg/dL High 70-100 Blood Urea Nitrogen 23 mg/dL N 6-24 Creatinine 0.78 mg/dL N 0.51-0.95 BUN/Creatinine Ratio 29.5 High 8-20 Calcium 9.1 mg/dL N 8.6-10.3 Total Protein 7.3 g/dL N 6.4-8.9 Albumin 4.0 g/dL N 3.2-5.2 Globulin 3.3 g/dL N 2-4 Albumin/Globulin Ratio 1.2 N 1-3 Total Bilirubin 0.40 mg/dL N 0.2-1.0 Alkaline Phosphatase 219 U/L High 34-104 Alt 32 U/L N 7-52 Ast 39 U/L N 13-39 Egfr Non- 77.6 >60 Egfr 93.8 >60 12 Lipid Profile 07/31/2018 [facility] Triglycerides 113 mg/dL 13 (Trig/Chol/HDL) [address] [place] [address] [phone] Cholesterol 94 mg/dL 14 HDL Cholesterol 34.8 mg/dL 15 LDL Cholesterol 37 mg/dL 16 Laboratory test finding 07/31/2018 [facility] GGTP 50 U/L N 9- 64.[address] [place] [address] [phone] Hemoglobin A1c (Glyco HGB) 8.3 % High 4.0-5.6 18 Laboratory test 07/20/2018 [facility] Point of Care 78 mg/dL N 70-100 [address] [place] [address] [phone] CBC Auto Diff 07/20/2018 [facility] White Blood 8.8 10^3/uL N 3.5-10.[address] [place] [address] [phone] Red Blood Count 4.30 10^6/uL N 4.00-5.40 [...] Cells % 0 Basic Metabolic Panel 07/20/2018 [facility] Sodium 140 mmol/L N 135-[address] [place] [address] [phone] Potassium 4.0 mmol/L N 3.5-5.0 Chloride 108 mmol/L N 101-111 Co2 Carbon Dioxide 26 mmol/L N 22-32 Anion Gap 6 mmol/L N 2-11 Glucose 82 mg/dL N 70-100 Blood Urea Nitrogen 13 mg/dL N 6-24 Creatinine 0.71 mg/dL N 0.51-0.95 BUN/Creatinine Ratio 18.3 N 8-20 Calcium 9.3 mg/dL N 8.6-10.3 Egfr Non- 86.4 >60 Egfr 104.6 >60 20 CBC Auto 07/10/2018 [facility] White Blood 14.1 10^3/uL High 3.5-10.[address] [place] [address] [phone] Red Blood Count 4.77 10^6/uL N 4.00-5.40 [...] Blood Cells % 0 Urinalysis Profile 07/10/2018 [facility] Urine Color Yellow [address] [place] [address] [phone] Urine Appearance Cloudy Urine Specific [place] 1.017 N 1.010-1.030 Urine pH 5.0 N [...] Present Abnormal Absent Comp Metabolic Panel 07/10/2018 [facility] Sodium 136 mmol/L N 135-145 [address] [place] [address] [phone] Potassium 4.6 mmol/L N 3.5-5.0 Chloride 102 [...] Egfr Non- 54.4 >60 Egfr 65.9 >60 21 Laboratory test 07/10/2018 [facility] Acetaminophen < 15 g/mL 22 finding [address] [place] [address] [phone] Alcohol < 10 mg/dL N <10 Salicylate < 2.50 mg/dL <30 TSH (Thyroid Stim Horm) 9.45 mcIU/mL High 0.34-5.60 Urine Drug 07/10/2018 [facility] Amphetamine Ur None Detected None Detect SCR ED & [address] [place] [address] [phone] Barbiturates Urine Screen None Detected None Detect Benzodiazepine Urine Screen None Detected None Detect Urine Cannabinoids Screen None Detected None Detect Urine Cocaine Screen None Detected None Detect Urine Opiates Screen None Detected None Detect Urine Phencyclidine Screen None Detected None Detect 23 Urine Culture 07/10/2018 [facility] Urine Culture SEE RESULT [address] BELOW Sensitivities [place], [place] [id number] [phone] Laboratory test 06/26/2018 [facility] Point of Care 143 mg/dL High 70-100 [address] Glucose [place], [place] [id number] [phone] Laboratory test 06/26/2018 [facility] Point of Care 72 mg/dL N 70-100 [address] Glucose [place], [place] [address] [phone] Laboratory test 06/26/2018 [facility] Point of Care 98 mg/dL N 70-100 [address] Glucose [place], [place] [address] [phone] Urine Drug SCR 06/26/2018 [facility] Amphetamine Ur None None ED & [facility] Clinic [address] Screen Detected Detect [place], [place] [address] [phone] Barbiturates Urine Screen None Detected None Detect Benzodiazepine Urine Screen None Detected None Detect Urine Cannabinoids Screen None Detected None Detect Urine Cocaine Screen None Detected None Detect Urine Opiates Screen None Detected None Detect Urine Phencyclidine Screen None Detected None Detect 28 CBC Auto 06/26/2018 [facility] White Blood 10.9 10^3/uL High 3.5-10.[address] [place] [address] [phone] Red Blood Count 4.42 10^6/uL N 4.00-5.40 [...] Cells % 0 Comp Metabolic Panel 06/26/2018 [facility] Sodium 137 mmol/L N 135-[address] [place] [address] [phone] Potassium 4.3 mmol/L N 3.5-5.0 Chloride 105 [...] Egfr Non- 79.0 >60 Egfr 95.6 >60 29 Urinalysis Profile 06/26/2018 [facility] Urine Color Straw [address] [place] [address] [phone] Urine Appearance Clear Urine Specific [place] 1.005 Low 1.010-1.030 Urine pH 6.0 N 5-9 Urine Urobilinogen Negative Negative Urine Ketones Negative Negative Urine Protein Negative Negative Urine Leukocytes Negative Negative Urine Blood Negative Negative Urine Nitrite Negative Negative Urine Bilirubin Negative Negative Urine Glucose Negative Negative Laboratory test 06/26/2018 [facility] Acetaminophen < 15 g/mL [address] [place] [address] [phone] Alcohol < 10 mg/dL N <10 Salicylate < 2.50 mg/dL <30 Lactic Acid 0.9 mmol/L N 0.5-2.0 31 CBC Auto Diff 05/18/2018 [facility] White Blood 10.8 10^3/uL N 3.5-10.[address] [place] [address] [phone] Red Blood Count 4.33 10^6/uL N 4.00-5.40 [...] Cells % 0.1 Comp Metabolic Panel 05/18/2018 [facility] Sodium 139 mmol/L N 135-[address] [place] [address] [phone] Potassium 4.5 mmol/L N 3.5-5.0 Chloride 107 [...] Egfr Non- 81.5 >60 Egfr 98.6 >60 32 Laboratory test 05/18/2018 [facility] Lipase < 10 U/L Low 11.0 -82.[address] [place] [address] [phone] Lactic Acid 1.1 mmol/L N 0.5-2.0 33 Laboratory test 05/15/2018 [facility] C Difficile PCR SEE RESULT [address] [place] [address] [phone] Laboratory test 05/11/2018 [facility] Glucose 342 mg/dL High 70-[address] Confirmatory 00 [place], [place] [id number] [phone] Laboratory test 05/11/2018 [facility] Point of Care 402 mg/dL High 70-1 [address] Glucose 00 [place] [address] [phone] Laboratory test 05/11/2018 [facility] Point of Care 426 mg/dL High 70-1 36 [address] [address] Glucose 00 [place] [address] [phone] CBC Auto Diff 05/10/2018 [facility] White Blood Count 12.0 High 3.5- [address] 10^3/uL 10.8 [place] [address] [phone] Red Blood Count 4.39 10^6/uL N 4.00-5.40 [...] Cells % 0.1 Comp Metabolic Panel 05/10/2018 [facility] Sodium 141 mmol/L N 135-[address] [place] [address] [phone] Potassium 4.9 mmol/L N 3.5-5.0 Chloride 107 [...] Egfr Non- 74.5 >60 Egfr 90.2 >60 37 Laboratory test 05/10/2018 [facility] Lipase < 10 U/L Low 11.0 -82.[address] [place] [address] [phone] C Reactive Protein 6.43 mg/L N <8.01 Lactic Acid 1.2 mmol/L N 0.5-2.0 38 Urine Microalbumin 05/08/2018 [facility] Ur Microalbumin < 15.[address] (mg/L) [place] [address] [phone] Urine Creatinine 224.47 mg/dL Urine Microalbumin/Creatinine TNP <31 39 Laboratory test 05/08/2018 [facility] Hemoglobin A1c 9.7 High 5-7 finding Urinalysis Profile 11/02/2017 [facility] Urine Color Yellow [address] [place] [address] [phone] Urine Appearance Clear Urine Specific [place] 1.018 N 1.010-1.030 Urine pH 5.0 N 5-9 Urine Urobilinogen Negative Negative Urine Ketones Negative Negative Urine Protein Negative Negative Urine Leukocytes Negative Negative Urine Blood Negative Negative Urine Nitrite Negative Negative Urine Bilirubin Negative Negative Urine Glucose 1+(50 mg/dL) Abnormal Negative Laboratory test 11/02/2017 [facility] Magnesium 1.9 mg/dL N 1.9-2.[address] [place] [address] [phone] Creatine Kinase(CK) 72 U/L N 10-223 Troponin-I (TnI) 0.03 ng/mL <0.04 Acetaminophen < 15 g/mL 40 Alcohol < 10 mg/dL N <10 Salicylate < 2.50 mg/dL <30 TSH (Thyroid Stim Horm) 1.79 mcIU/mL N 0.34-5.60 Urine Drug 11/02/2017 [facility] Amphetamine Ur None Detected None Detect SCR ED & [address] [place] [place] [address] [phone] Barbiturates Urine Screen None Detected None Detect Benzodiazepine Urine Screen None Detected None Detect Urine Cannabinoids Screen None Detected None Detect Urine Cocaine Screen None Detected None Detect Urine Opiates Screen Presumptive Posi <SEE NOTE> Abnormal None Detect 41 Urine Phencyclidine Screen None Detected None Detect 42 Arterial Blood Gas 11/02/2017 [facility] PH Arterial 7.36 N 7.35-7[address] [place] [address] [phone] Pco2 Arterial 50 mmHg High 35-45 Po2 Arterial 65 mmHg Low 80-100 O2 Saturation Arterial 91.1 % Low 95-98 Base Excess Arterial 2.1 High -2.0-2.0 43 Hco3 Arterial 26.4 mmol/L N 19-31 Laboratory test finding 11/02/2017 [facility] Ammonia 37 ?mol/L N 16-[address] [place] [address] [phone] Lactic Acid 1.0 mmol/L N 0.5-2.0 44 Comp Metabolic 11/02/2017 [facility] Potassium 4.4 mmol/L N 3.5-5.[address] [place] [address] [phone] Chloride 107 mmol/L N 101-111 Co2 Carbon [...] Egfr Non- 70.5 >60 Egfr 90.7 >60 45 Sodium 142 mmol/L N 139-145 Anion Gap 5 mmol/L N 2-11 CBC Auto Diff 11/02/2017 [facility] White Blood 8.5 10^3/uL N 3.5-10.[address] [place] [address] [phone] Red Blood Count 4.40 10^6/uL N 4.0-5.4 [...] 0-2 Nucleated Red Blood Cells % 0 CBC Auto Diff 10/02/2017 [facility] White Blood 10.3 10^3/uL N 3.5-10.[address] [place] [address] [phone] Red Blood Count 4.29 10^6/uL N 4.0-5.4 [...] Cells % 0 Comp Metabolic Panel 10/02/2017 [facility] Sodium 136 mmol/L N 133-[address] [place] [address] [phone] Potassium 4.5 mmol/L N 3.5-5.0 Chloride 103 [...] Egfr Non- 70.5 >60 Egfr 90.7 >60 46 Laboratory test 10/02/2017 [facility] CRP High 3.53 mg/L [address] [place] [address] [phone] Laboratory test 09/28/2017 [facility] Hemoglobin A1c 9.1 High 5-7 finding Laboratory test 09/13/2017 [facility] Point of Care 179 mg/dL High 70-10 [address] Glucose 0 [place] [address] [phone] Laboratory test 09/13/2017 [facility] Point of Care 260 mg/dL High 70-10 [address] Glucose 0 [place] [address] [phone] Comp Metabolic 08/29/2017 [facility] Sodium 136 N 133-[address] mmol/L 45 [place] [address] [phone] Potassium 4.9 mmol/L N 3.5-5.0 Chloride 104 [...] Egfr Non- 47.4 >60 Egfr 60.9 >60 50 Laboratory test 08/29/2017 [facility] Lipase < 10 U/L Low 11.0 -82.[address] [place] [address] [phone] CRP High Sensitivity 1.79 mg/L 51 Troponin-I (TnI) 0.00 ng/mL <0.04 Laboratory test 08/29/2017 [facility] B-Type 21 pg/mL [address] [place] [address] Peptide BNP [phone] CBC Auto Diff 08/29/2017 [facility] White Blood Count 9.1 10^3/ uL N 3.5-[address] 0.8 [place] [address] [phone] Red Blood Count 4.06 10^6/uL N 4.0-5.4 [...] Blood Cells % 0 Comp Metabolic Panel 08/26/2017 [facility] Sodium 139 mmol/L N 133-[address] [place] [address] [phone] Potassium 5.0 mmol/L N 3.5-5.0 Chloride 105 [...] Egfr Non- 62.8 >60 Egfr 80.7 >60 53 Inr/Protime 08/26/2017 [facility] Inr 0.82 N 0.77-1.[address] [place] [address] [phone] Laboratory test 08/26/2017 [facility] Partial 27.7 seconds N 26.0-36.[address] [place] [address] PTT [phone] CBC Auto Diff 08/26/2017 [facility] White Blood 9.0 10^3/uL N 3.5-10.[address] [place] [address] [phone] Red Blood Count 4.42 10^6/uL N 4.0-5.4 [...] Blood Cells % 0 Laboratory test 08/26/2017 [facility] Troponin-I 0.01 <0.[address] (TnI) ng/[place] [address] [phone] Laboratory test 08/25/2017 [facility] C Reactive 3.27 mg/L N < 5.[address] [place] [address] [phone] Venous Blood 08/25/2017 [facility] Venous Blood 7.48 High 7.33 -7.[address] [place] [address] [phone] Venous Pco2 31 mmHg Low 41-51 Venous Po2 98 mmHg High 35-45 Venous O2 Saturation 95.3 % High 70-80 Venous Blood Base Excess 0.1 N 0-4 55 Venous Bicarbonate Hco3 25.0 mmol/L N 24-28 CBC Auto Diff 08/25/2017 [facility] White Blood 8.9 10^3/uL N 3.5-10.[address] [place] [address] [phone] Red Blood Count 4.33 10^6/uL N 4.0-5.4 [...] Red Blood Cells % 0 Laboratory test 08/25/2017 [facility] Point of 289 mg/dL High 70-100 [address] [place] [address] [phone] Comp Metabolic 08/25/2017 [facility] Sodium 134 mmol/L N 133- [address] [place] [address] [phone] Potassium 4.8 mmol/L N 3.5-5.0 Chloride 101 [...] Egfr Non- 68.6 >60 Egfr 88.3 >60 57 Urinalysis Profile 08/25/2017 [facility] Urine Color Yellow [address] [place] [address] [phone] Urine Appearance Clear Urine Specific [place] 1.010 N 1.010-1.030 Urine pH 5.0 N 5-9 Urine Urobilinogen Negative Negative Urine Ketones Negative Negative Urine Protein Negative Negative Urine Leukocytes Negative Negative Urine Blood Negative Negative Urine Nitrite Negative Negative Urine Bilirubin Negative Negative Urine Glucose 3+(>=500 mg/dL) Abnormal Negative Laboratory test 08/25/2017 [facility] Point of 157 mg/dL High 70-100 58 finding [address] [place] [address] [phone] Laboratory test 08/23/2017 [facility] Point of 224 mg/dL High 70-100 59 finding [address] [place] [address] [phone] Laboratory test 08/22/2017 [facility] Lactic Acid 1.3 mmol/L N 0.5-2.0 60 finding [address] [place] [address] [phone] Comp Metabolic 08/22/2017 [facility] Sodium 131 mmol/L Low 133 -145 Panel [address] [place] [address] [phone] Potassium 4.6 mmol/L N 3.5-5.0 Chloride 98 [...] Egfr Non- 65.2 >60 Egfr 83.8 >60 61 Glucose 543 mg/dL High 70-100 62 Laboratory test 08/22/2017 [facility] Magnesium 2.0 mg/dL N 1.9-2.[address] [place] [address] [phone] Creatine Kinase(CK) 121 U/L N 10-223 C Reactive Protein 4.62 mg/L N < 5.00 63 Troponin-I (TnI) 0.01 ng/mL <0.04 Laboratory test 08/22/2017 [facility] Glucose 417 mg/dL High 70-[address] [place] [address] [phone] Laboratory test 08/22/2017 [facility] Point of > 444 mg/dL High 70-100 [address] [place] [address] [phone] Urinalysis 08/22/2017 [facility] Urine Color Yellow Profile [address] [place] [address] [phone] Urine Appearance Cloudy Urine Specific [place] 1.023 N 1.010-1.030 Urine pH 6.0 N [...] Present Abnormal Absent Urine Culture And 08/22/2017 [facility] Urine Culture SEE RESULT [address] [place] [address] [phone] CBC Auto Diff 08/22/2017 [facility] White Blood 8.9 10^3/uL N 3.5-[address] Count 0.8 [place] [address] [phone] Red Blood Count 4.19 10^6/uL N 4.0-5.4 [...] Cells % 0.1 Venous Blood Gas 08/22/2017 [facility] Venous Blood pH 7.42 N 7.33-7.[address] [place] [address] [phone] Venous Pco2 49 mmHg N 41-51 Venous Po2 36 mmHg N 35-45 Venous O2 Saturation 78.1 % N 70-80 Venous Blood Base Excess 6.3 High 0-4 66 Venous Bicarbonate Hco3 29.4 mmol/L High 24-28 Inr/Protime 08/22/2017 [facility] Inr 0.91 N 0.77-1.02 [address] [place], [place] [id number] [phone] Laboratory test 08/18/2017 [facility] Point of 180 mg/dL High 70-100 67 finding [address] [place] [address] Glucose [phone] Urinalysis 08/17/2017 [facility] Urine Color Yellow Profile [address] [place] [address] [phone] Urine Appearance Cloudy Urine Specific [place] 1.016 N 1.010-1.030 Urine pH 5.0 N 5-9 Urine Urobilinogen Negative Negative Urine Ketones Negative Negative Urine Protein Negative Negative Urine Leukocytes Negative Negative Urine Blood Negative Negative Urine Nitrite Negative Negative Urine Bilirubin Negative Negative Urine Glucose 3+(>=500 mg/dL) Abnormal Negative Urine Drug 08/17/2017 [facility] Amphetamine Ur None Detected None Detect SCR ED & [address] [place] [address] [phone] Barbiturates Urine Screen None Detected None Detect Benzodiazepine Urine Screen None Detected None Detect Urine Cannabinoids Screen None Detected None Detect Urine Cocaine Screen None Detected None Detect Urine Opiates Screen None Detected None Detect Urine Phencyclidine Screen None Detected None Detect 68 Laboratory test 08/17/2017 [facility] Point of 276 mg/dL High 70-100 [address] [place] [address] [phone] Laboratory test 08/17/2017 [facility] Point of > 444 High 70- 100 [address] Care Glucose mg/[place] [address] [phone] Venous Blood 08/17/2017 [facility] Venous Blood 7.36 N 7.33- 7.[address] [place] [address] [phone] Venous Pco2 48 mmHg N 41-51 Venous Po2 29 mmHg Low 35-45 Venous O2 Saturation 59.9 % Low 70-80 Venous Blood Base Excess 1.1 N 0-4 71 Venous Bicarbonate Hco3 24.9 mmol/L N 24-28 CBC Auto Diff 08/17/2017 [facility] White Blood 10.8 10^3/uL N 3.5-10.[address] [place] [address] [phone] Red Blood Count 4.74 10^6/uL N 4.0-5.4 [...] Cells % 0 Comp Metabolic Panel 08/17/2017 [facility] Sodium 133 mmol/L N 133-[address] [place] [address] [phone] Potassium 4.9 mmol/L N 3.5-5.0 Chloride 101 [...] Egfr Non- 72.5 >60 Egfr 93.2 >60 72 Glucose 543 mg/dL High 70-100 73 Laboratory test 08/17/2017 [facility] Acetaminophen < 15 g/mL [address] [place] [address] [phone] Alcohol < 10 mg/dL N <10 Salicylate < 2.50 mg/dL <30 TSH (Thyroid Stim Horm) 2.76 mcIU/mL N 0.34-5.60 Lamotrigine (Lamictal) 4.2 g/mL 2.5 - 15.0 75 Laboratory test 08/17/2017 [facility] Point of > 444 High 70- 100 [address] Care Glucose mg/[place] [address] [phone] Laboratory test 08/09/2017 [facility] Point of 266 mg/dL High 70-100 [address] [place] [address] [phone] CBC Auto Diff 08/08/2017 [facility] White Blood 11.9 High 3.5- 10.[address] Count 10^3/[place] [address] [phone] Red Blood Count 4.78 10^6/uL N 4.0-5.4 [...] Cells % 0 Comp Metabolic Panel 08/08/2017 [facility] Sodium 136 mmol/L N 133-[address] [place] [address] [phone] Potassium 4.3 mmol/L N 3.5-5.0 Chloride 100 [...] Egfr Non- 74.5 >60 Egfr 95.9 >60 78 Laboratory test 08/08/2017 [facility] Acetaminophen < 15 g/mL 79 finding [address] [place] [address] [phone] Alcohol < 10 mg/dL N <10 Salicylate < 2.50 mg/dL <30 TSH (Thyroid Stim Horm) 2.67 mcIU/mL N 0.34-5.60 Lamotrigine (Lamictal) 2.5 g/mL 2.5 - 15.0 80 Urinalysis Profile 08/08/2017 [facility] Urine Color Yellow [address] [place] [address] [phone] Urine Appearance Cloudy Urine Specific [place] 1.022 N 1.010-1.030 Urine pH 6.0 N 5-9 Urine Urobilinogen Negative Negative Urine Ketones Negative Negative Urine Protein Negative Negative Urine Leukocytes Negative Negative Urine Blood Negative Negative Urine Nitrite Negative Negative Urine Bilirubin Negative Negative Urine Glucose 3+(>=500 mg/dL) Abnormal Negative Urine Drug 08/08/2017 [facility] Amphetamine Ur None Detected None Detect SCR ED & [address] [place] [address] [phone] Barbiturates Urine Screen None Detected None Detect Benzodiazepine Urine Screen None Detected None Detect Urine Cannabinoids Screen None Detected None Detect Urine Cocaine Screen None Detected None Detect Urine Opiates Screen None Detected None Detect Urine Phencyclidine Screen None Detected None Detect 81 Laboratory test 08/04/2017 [facility] Point of Care 258 mg/dL High 70-100 [address] [place] [address] [phone] Laboratory test 08/04/2017 [facility] Point of Care 175 mg/dL High 70-100 [address] [place] [address] [phone] Laboratory test 08/04/2017 [facility] Point of Care 284 mg/dL High 70-100 [address] [place] [address] [phone] Urinalysis 08/03/2017 [facility] Urine Color Yellow Profile [address] [place] [address] [phone] Urine Appearance Cloudy Urine Specific [place] 1.012 N 1.010-1.030 Urine pH 5.0 N [...] Crystals Present Abnormal Absent Urine Drug 08/03/2017 [facility] Amphetamine Ur None Detected None Detect SCR ED & [address] [place] [address] [phone] Barbiturates Urine Screen None Detected None Detect Benzodiazepine Urine Screen None Detected None Detect Urine Cannabinoids Screen None Detected None Detect Urine Cocaine Screen None Detected None Detect Urine Opiates Screen None Detected None Detect Urine Phencyclidine Screen None Detected None Detect 85 Urine Culture And 08/03/2017 [facility] Urine SEE RESULT [address] [place] [address] [phone] CBC Auto Diff 08/03/2017 [facility] White Blood 10.9 High 3.5- [address] Count 10^3/uL 0.8 [place] [address] [phone] Red Blood Count 4.61 10^6/uL N 4.0-5.4 [...] Cells % 0 Comp Metabolic Panel 08/03/2017 [facility] Sodium 132 mmol/L Low 133-[address] [place] [address] [phone] Potassium 4.6 mmol/L N 3.5-5.0 Chloride 98 [...] Egfr Non- 67.7 >60 Egfr 87.1 >60 87 Laboratory test 08/03/2017 [facility] Acetaminophen < 15 g/mL [address] [place] [address] [phone] Alcohol < 10 mg/dL N <10 Salicylate < 2.50 mg/dL <30 TSH (Thyroid Stim Horm) 0.60 mcIU/mL N 0.34-5.60 Laboratory test 08/02/2017 [facility] Troponin-I 0.01 <0.[address] (TnI) ng/[place] [address] [phone] CBC Auto Diff 08/02/2017 [facility] White Blood 13.8 High 3.5- 10.[address] Count 10^3/[place] [address] [phone] Red Blood Count 4.64 10^6/uL N 4.0-5.4 [...] Cells % 0 Comp Metabolic Panel 08/02/2017 [facility] Sodium 133 mmol/L N 133-[address] [place] [address] [phone] Potassium 4.7 mmol/L N 3.5-5.0 Chloride 101 [...] Egfr Non- 76.7 >60 Egfr 98.7 >60 89 Laboratory test 08/02/2017 [facility] Troponin-I 0.03 <0.[address] (TnI) ng/mL [place], [place] [address] [phone] Urine Culture And 08/01/2017 [facility] Urine Culture SEE 90, Sensitivities [address] RESULT 91 [place] [address] BELOW [phone] Laboratory test 06/13/2017 [facility] Hemoglobin 9.2 High 5-7 finding A1c Laboratory test 06/03/2017 [facility] Point of Care 184 mg/dL High 70-100 [address] Glucose [place], [place] [address]85 [phone] Laboratory test 06/03/2017 [facility] Point of Care 256 mg/dL High 70-100 [address] Glucose [place], [place] [address] [phone] Laboratory test 06/03/2017 [facility] Point of Care 329 mg/dL High 70-100 [address] Glucose [place], [place] [address]69 [phone] Laboratory test 06/03/2017 [facility] Point of Care 384 mg/dL High 70-100 [address] Glucose [place], [place] [address]43 [phone] Laboratory test 06/03/2017 [facility] Point of Care > 444 High 70-100 [address] Glucose mg/dL [place], [place] [address] [phone] Laboratory test 06/03/2017 [facility] Point of Care > 444 High 70-100 [address] Glucose mg/[place] [address] [phone] 1 Therapeutic concentration: <50 ug/mL Toxic concentration: >120 ug/mL 2 Because ethnic data is not always [...] 5 Kidney failure <15 (or dialysis) 3 Social Welfare Administrator: [id number] 4 Social Welfare Administrator: [id number] 5 Because ethnic data is not always [...] 5 Kidney failure <15 (or dialysis) 6 <5.0 Negative 5.0 - 25.0 Indeterminate (Repeat testing recommended after 72 hours) >25.0 Positive Perimenopausal women can display HCG levels of up to 20 mIU/mL 7 Therapeutic concentration: <50 ug/mL Toxic concentration: >120 ug/mL 8 Social Welfare Administrator: [id number] Test Result Flag Unit RefValue TRYPSIN See Comment Trypsin 32.6 ng/mL L Ref Interval: 180.5 - 885.3 Interpretive Information: Trypsin Results should be correlated with clinical presentation and other diagnostic data for the diagnosis of pancreatitis. Individuals with acute pancreatitis have significantly elevated trypsin concentrations. Concentrations in those with chronic pancreatitis are variable and may be below, within, or above the reference interval. Trypsin concentrations are not diagnostic for carcinoma of the pancreas. Results obtained with different assay methods or kits cannot be used interchangeably. Test Performed by: [facility] [facility] [address] [place] [id number] 12 Because ethnic data is not always [...] 5 Kidney failure <15 (or dialysis) 13 Desirable: <150 Borderline High: 150-199 High: 200-499 Very High: >500 14 Desirable: <200 Borderline High: 200-239 High: >239 15 Low: <40 Desirable: 40-60 High: >60 16 Desirable: <100 Near Optimal: 100-129 Borderline High: 130-159 High: 160-189 Very High: >189 17 [id number] 18 Therapeutic target for the treatment of diabetes mellitus patients is <7% HBA1C, and in selective patients <6.0%. Please refer to [employer] diabetic care guidelines for further information. 19 Social Welfare Administrator: [id number] 20 Because ethnic data is not always [...] 5 Kidney failure <15 (or dialysis) 21 Because ethnic data is not always [...] 5 Kidney failure <15 (or dialysis) 22 Therapeutic concentration: <50 ug/mL Toxic concentration: >120 ug/mL 23 The urine specimen was tested at the listed cutoffs: Drug class test level (ng/mL) Amphetamines 500 Barbiturates 200 Benzodiazepine metabolites 200 Cocaine metabolites 150 Cannabinoids 50 Opiates 300 Pcp 25 Specimen was received without chain of custody. Results should be used for medical purposes only. 24 SEE RESULT BELOW Name: TARYN ALFARO : [address]: Sendy Mcdowell MD Acct: [id number] Unit: [id number] AGE: 53 Location: ED Re07/10/18 SEX: F Status: DEP ER SPEC: [id number] ANKUR: 07/10/18-[address]: Sendy Mcdowell MD REQ: [id number] RECD: 07/10/18 STATUS: TASHA BARFIELD DR: Chapo Aguila MD _ SOURCE: URINE SPDESC: ORDERED: Urine Culture Procedure Result Reported Site Urine Culture Final 07/12/18- 0845 ML No growth of clinically significant organisms * ML - Main Lab . END OF REPORT DEPARTMENT OF PATHOLOGY, [address] [place] [address] Tay Gamboa M.D. Director [facility] # [id number] 25 Social Welfare Administrator: [id number] Social Welfare Administrator: [id number] 27 Social Welfare Administrator: [id number] 28 The urine specimen was tested at the listed cutoffs: Drug class test level (ng/mL) Amphetamines 500 Barbiturates 200 Benzodiazepine metabolites 200 Cocaine metabolites 150 Cannabinoids 50 Opiates 300 Pcp 25 Specimen was received without chain of custody. Results should be used for medical purposes only. 29 Because ethnic data is not always [...] 5 Kidney failure <15 (or dialysis) 30 Therapeutic concentration: <50 ug/mL Toxic concentration: >120 ug/mL 31 [facility] Severe Sepsis and Septic Shock Management Bundle Measure requires all lactic acids initially measuring >2.0 mmol/L be repeated. 32 Because ethnic data is not always readily [...] 15-29 5 Kidney failure <15 (or dialysis) 33 [facility] Severe Sepsis and Septic Shock Management Bundle Measure requires all lactic acids initially measuring >2.0 mmol/L be repeated. 34 SEE RESULT BELOW Name: TARYN ALFARO : [address]: Danya Marquez MD Acct: [id number] Unit: [id number] AGE: 52 Location: [facility] Re05/15/18 SEX: F Status: REG REF SPEC: [id number] ANKUR: 05/15/18-[address] [facility] [address]: Danya Marquez MD REQ: [id number] RECD: 05/15/181250 STATUS: COMP _ SOURCE: STOOL SPDESC: ORDERED: C. diff PCR Procedure Result Reported Site Stool Specimen Description Final 05/15/18- 1306 ML Stool Color [place] Stool Form Semi-formed Stool Consistency Firm C. difficile PCR Final 05/15/18- 1306 ML Test not performed * ML - Main Lab . END OF REPORT DEPARTMENT OF PATHOLOGY, [address] [place] [address] Tay Gamboa M.D. Director [facility] # [id number] 35 Social Welfare Administrator: [id number] 36 Social Welfare Administrator: [id number] 37 Because ethnic data is not always [...] 5 Kidney failure <15 (or dialysis) 38 [facility] Severe Sepsis and Septic Shock Management Bundle Measure requires all lactic acids initially measuring >2.0 mmol/L be repeated. 39 Unable to calculate due to low microalbumin 40 Therapeutic concentration: <50 ug/mL Toxic concentration: >120 ug/mL 41 Presumptive Positive Presumptive positive results are unconfirmed. 42 The urine specimen was tested at the listed cutoffs: Drug class test level (ng/mL) Amphetamines 500 Barbiturates 200 Benzodiazepine metabolites 200 Cocaine metabolites 150 Cannabinoids 50 Opiates 300 Pcp 25 Specimen was received without chain of custody. Results should be used for medical purposes only. 43 Reference ranges based on room air. 44 [facility] Severe Sepsis and Septic Shock Management Bundle Measure requires all lactic acids initially measuring >2.0 mmol/L be repeated. 45 Because ethnic data is not always readily [...] 15-29 5 Kidney failure <15 (or dialysis) 46 Because ethnic data is not always [...] 5 Kidney failure <15 (or dialysis) 47 Low risk: <1.00 Average risk: 1.00-3.00 High risk: >3.00 48 Social Welfare Administrator: [id number] 49 Social Welfare Administrator: [id number] 50 Because ethnic data is not always readily [...] 15-29 5 Kidney failure <15 (or dialysis) 51 Low risk: <1.00 Average risk: 1.00-3.00 High risk: >3.00 52 >100 to <200 pg/mL: likely compensated congestive heart failure (CHF) 200 to 400 pg/mL: likely moderate CHF >400 pg/mL: likely moderate to severe CHF 53 Because ethnic data is not always readily [...] 15-29 5 Kidney failure <15 (or dialysis) 54 Acute inflammation: >10.00 55 Reference ranges based on room air. 56 Social Welfare Administrator: [id number] 57 Because ethnic data is not always readily [...] 15-29 5 Kidney failure <15 (or dialysis) 58 Social Welfare Administrator: [id number] 59 Social Welfare Administrator: [id number] 60 [facility] Severe Sepsis and Septic Shock Management Bundle Measure requires all lactic acids initially measuring >2.0 mmol/L be repeated. 61 Because ethnic data is not always [...] 5 Kidney failure <15 (or dialysis) 62 Critical Result [id number] Called to JIMENA at: 21:48:40 by:[email or web address] Read back by:[email or web address] 63 Acute inflammation: >10.00 64 Social Welfare Administrator: [id number] 65 SEE RESULT BELOW Name: TARYN ALFARO Camreon : [address]: Violeta Yusuf MD Acct: [id number] Unit: [id number] AGE: 52 Location: ED Re08/22/17 SEX: F Status: DEP ER SPEC: [id number] ANKUR: 08/22/[address] [facility] [address]: Violeta Yusuf MD REQ: [id number] RECD: 08/22/17 STATUS: TASHA BARFIELD DR: Chapo Aguila MD _ SOURCE: URINE SPDESC: ORDERED: Urine Culture Procedure Result Reported Site Urine Culture Final 08/23/17- 1607 ML Mixed seema; possible contamination. Suggest resubmission. * ML - [facility]) . END OF REPORT * ML=Testing performed at Main Lab DEPARTMENT OF PATHOLOGY, [address] [place] [address] Tay Gamboa M.D. Director [facility] # [id number] 66 Reference ranges based on room air. 67 Social Welfare Administrator: [id number] 68 The urine specimen was tested at the listed cutoffs: Drug class test level (ng/mL) Amphetamines 500 Barbiturates 200 Benzodiazepine metabolites 200 Cocaine metabolites 150 Cannabinoids 50 Opiates 300 Pcp 25 Specimen was received without chain of custody. Results should be used for medical purposes only. 69 Social Welfare Administrator: [id number] 70 Social Welfare Administrator: [id number] 71 Reference ranges based on room air. 72 Because ethnic data is not always readily [...] 15-29 5 Kidney failure <15 (or dialysis) 73 Critical Result [id number] Called to [id number] at: 18:00:03 by:[id number] Read back by:[id number] 74 Therapeutic concentration: <50 ug/mL Toxic concentration: >120 ug/mL 75 ADDITIONAL INFORMATION This test was developed and its performance characteristics determined by [facility] in a manner consistent with CLIA requirements. This test has not been cleared or approved by the U.S. Food and Drug Administration. Test Performed by: [facility] [employer] [place] [address] 76 Social Welfare Administrator: [id number] 77 Social Welfare Administrator: [id number] 78 Because ethnic data is not always readily [...] 15-29 5 Kidney failure <15 (or dialysis) 79 Therapeutic concentration: <50 ug/mL Toxic concentration: >120 ug/mL 80 ADDITIONAL INFORMATION This test was developed and its performance characteristics determined by [facility] in a manner consistent with CLIA requirements. This test has not been cleared or approved by the U.S. Food and Drug Administration. Test Performed by: [facility] [employer] - [facility] [employer] [address] [place] [id number] 81 The urine specimen was tested at the listed cutoffs: Drug class test level (ng/mL) Amphetamines 500 Barbiturates 200 Benzodiazepine metabolites 200 Cocaine metabolites 150 Cannabinoids 50 Opiates 300 Pcp 25 Specimen was received without chain of custody. Results should be used for medical purposes only. 82 Social Welfare Administrator: [id number] 83 Social Welfare Administrator: [id number] 84 Social Welfare Administrator: [id number] 85 The urine specimen was tested at the listed cutoffs: Drug class test level (ng/mL) Amphetamines 500 Barbiturates 200 Benzodiazepine metabolites 200 Cocaine metabolites 150 Cannabinoids 50 Opiates 300 Pcp 25 Specimen was received without chain of custody. Results should be used for medical purposes only. 86 SEE RESULT BELOW Name: TARYN ALFARO : [address]: Sendy Mcdowell MD Acct: [id number] Unit: [id number] AGE: 52 Location: ED Re08/03/17 SEX: F Status: REG ER SPEC: [id number] ANKUR: 08/03/[address] [facility] [address]: Sendy Mcdowell MD REQ: [id number] RECD: 08/03/17 STATUS: TASHA BARFIELD DR: Chapo Aguila MD _ SOURCE: URINE [facility]: ORDERED: Urine Culture Procedure Result Reported Site Urine Culture Final 08/05/17- 1225 ML No growth of clinically significant organisms * ML - MAIN LAB ([facility]) . END OF REPORT * ML=Testing performed at Main Lab DEPARTMENT OF PATHOLOGY, [address] [place] [address] Tay Gamboa M.D. Director [facility] # [id number] 87 Because ethnic data is not always readily [...] 15-29 5 Kidney failure <15 (or dialysis) 88 Therapeutic concentration: <50 ug/mL Toxic concentration: >120 ug/mL 89 Because ethnic data is not always readily [...] 15-29 5 Kidney failure <15 (or dialysis) 90 [id number] 91 SEE RESULT BELOW Name: TARYN ALFARO : [address]: Any Ramirez MD Acct: [id number] Unit: [id number] AGE: 52 Location: [facility] Re08/01/17 SEX: F Status: DEP ER SPEC: [id number] ANKUR: 08/01/17-[address] [facility] [address]: Any Ramirez MD REQ: [id number] RECD: 08/02/176444 STATUS: COMP [facility] DR: Chapo Aguila MD _ SOURCE: URINE SPDESC: ORDERED: Urine Culture COMMENTS: [id number] Procedure Result Reported Site Urine Culture Final 08/03/17- 1251 ML Mixed seema; possible contamination. Suggest resubmission. * ML - MAIN LAB ([facility]) . END OF REPORT * ML=Testing performed at Main Lab DEPARTMENT OF PATHOLOGY, [address] [place] [address] Tay Gamboa M.D. Director [facility] # [id number] 92 Social Welfare Administrator: [id number] Social Welfare Administrator: [id number] 94 Social Welfare Administrator: [id number] 95 Social Welfare Administrator: [id number] 96 Social Welfare Administrator: [id number] 97 Social Welfare Administrator: [id number] Procedures Date Code Description Status 07/21/2018 89838 Inhalation [place] For Acute Airway Obstruction Completed W/Nebulizer/Inhaler 11/03/2017 59948 EKG, Interpretation Only Completed 10/26/2017 [id number] Diabetic Retinal Eye Exam Completed 10/11/2017 63097 Inject/Drain Joint/Bursa Major W/O US Completed 06/03/2017 32727 Carpal Tunnel Release Completed 06/03/2017 30414 Carpal Tunnel Release Completed 05/01/2016 [id number] Mammogram Completed 04/06/2016 19345 EEG Recording Awake & Drowsy Completed 04/03/2016 52975 EKG, Interpretation Only Completed 04/29/2015 23737 EEG Recording Awake & Drowsy Completed 04/16/2012 27951 EKG, Interpretation Only Completed 04/16/2012 44959 EKG, Interpretation Only Completed Encounters Type Date Location Provider Dx Diagnosis Office Visit 09/06/2018 [facility] Internal Rosa Schroeder MD I10 Essential ( primary) 2:20p Medicine - [address] E11.65 Type 2 diabetes mellitus with hyperglycemia R19.7 Diarrhea, unspecified M54.41 Lumbago with sciatica, right side F17.210 Nicotine dependence, cigarettes, uncomplicated R68.84 Jaw pain F60.3 Borderline personality disorder Office Visit 07/26/2018 [facility] Internal Lawrence Simental J40 Bronchitis, not 2:40p Jaylene Denson M.D.,FACP specified as acute [address] or chronic Office Visit 07/21/2018 [facility] Internal Rosa Schroeder MD J45.901 Unspecified asthma 11:40a Medicine - with (acute) [place] exacerbation X79.xxxA Intentional self-harm by blunt object, initial encounter I10 Essential (primary) hypertension M54.41 Lumbago with sciatica, right side F60.3 Borderline personality disorder T18.9xxA Foreign body of alimentary tract, part unsp, init encntr Office Visit 07/18/2018 11:00a Lainey Hodge and Moreno Sandoval 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 [facility] [place] (current) use of insulin E11.65 Type 2 diabetes mellitus with hyperglycemia E03.9 Hypothyroidism, unspecified R15.2 Fecal urgency Office Visit 07/04/2018 1:00p Lainey Hodge and Kelly Chan79.4 [employer] customer service [facility] [place] (current) use of insulin E11.65 Type 2 diabetes mellitus with hyperglycemia E03.9 Hypothyroidism, unspecified R19.7 Diarrhea, unspecified T50.902D Poisoning by unsp drug/meds/biol subst, self-harm, subs Office Visit 07/03/2018 10:00a [place] Schroeder, E11.65 Type 2 diabetes Medicine - MD mellitus with [address] hyperglycemia I10 Essential (primary) hypertension X78.8xxA Intentional self-harm by other sharp object, init encntr F17.210 Nicotine dependence, cigarettes, uncomplicated R15.1 Fecal smearing M65.842 Other synovitis and tenosynovitis, left hand M54.41 Lumbago with sciatica, right side E03.9 Hypothyroidism, unspecified Office Visit 06/28/2018 Orthopedic Marline M65.841 Other synovitis and 1:15p Services Of Adelina DuarteosynHilda jenkins right hand M54.41 Lumbago with sciatica, right side Office Visit 05/22/2018 2:30p [facility] Internal Rosa Schroeder, R19.7 Diarrhea, Medicine - [address] L08.1 Erythrasma R15.1 Fecal smearing Office Visit 05/15/2018 1:30p [facility] Internal Rosa Schroeder, R19.7 Diarrhea, Medicine - [place] unspecified Rd F17.210 Nicotine dependence, cigarettes, uncomplicated J45.909 Unspecified asthma, uncomplicated E11.65 Type 2 diabetes mellitus with hyperglycemia Z91.81 History of falling E11.9 Type 2 diabetes mellitus without complications Office Visit 05/08/2018 9:30a [facility] Internal Rosa Schroeder, E11.65 Type 2 diabetes Medicine - mellitus with [address] hyperglycemia R15.1 Fecal smearing I10 Essential (primary) hypertension R94.5 Abnormal results of liver function studies F33.3 Major depressv disorder, recurrent, severe w psych symptoms Office Visit 11/04/[address] [facility] Sherita Lui, G92 Toxic encephalopathy 11:25a Assoc,matthieu Sahu Hospitalists T50.904A Poisoning by unsp drug/meds/biol subst, undetermined, init F60.3 Borderline personality disorder R40.2432 Kriss coma scale score 3-8, [facility] Office Visit 11/03/2017 11:23a Intensivists Ishmael Dumont G92 Toxic encephalopathy David Anand F60.3 Borderline personality disorder T50.904A Poisoning by unsp drug/meds/biol subst, undetermined, init R40.2432 Kriss coma scale score 3-8, EMR Office Visit 11/02/2017 11:22a Intensivists Ishmael Dumont R40.2432 Farrell coma Cheng, D.O. scale score 3-8, EMR G92 Toxic encephalopathy T50.904A Poisoning by unsp drug/meds/biol subst, undetermined, init F60.3 Borderline personality disorder Office Visit 10/18/2017 Orthopedic Naveed Lutz M75.31 Calcific tendinitis 9:00a Services Of MD Venecia of right shoulder C.M.A. Office Visit 10/13/2017 [facility] Internal Chapo E11.65 Type 2 diabetes 1:40p Medicine - [place], mellitus with Rd M.D. hyperglycemia Z12.31 Encntr screen mammogram for malignant neoplasm of breast Z12.11 Encounter for screening for malignant neoplasm of colon Office Visit 10/11/2017 Orthopedic Naveed Lutz M75.31 Calcific tendinitis 1:30p Services Of MD Venecia of right shoulder C.M.A. Office Visit 09/28/2017 [facility] Internal Chapo E11.65 Type 2 diabetes 1:20p Medicine - Ayla, mellitus with Grady M.DJarred hyperglycemia M79.645 Pain in left finger(s) E03.9 Hypothyroidism, unspecified Office Visit 09/19/2017 [facility] Internal Chapo E11.65 Type 2 diabetes 2:40p Medicine - Adelina Aguila mellitus with [address] hyperglycemia M54.5 Low back pain Office Visit 08/17/2017 2:10p [facility] Internal Lachelle F33.3 Major depressv Medicine - LUZ Berrios disorder, [address] recurrent, severe w psych symptoms R45.851 Suicidal ideations Office Visit 08/11/2017 1:20p [facility] Internal Chapo Aguila, F31.31 Bipolar Medicine - M.DJarred disorder, [address] current episode depressed, mild M51.16 Intervertebral disc disorders w radiculopathy, lumbar region K63.5 Polyp of colon K21.9 Gastro-esophageal reflux disease without esophagitis Office Visit 07/15/2017 11:00a [facility] Internal Chapo E11.9 Type 2 diabetes Jaylene Aguila M.D. mellitus without [address] complications M51.16 Intervertebral disc disorders w radiculopathy, lumbar region F31.31 Bipolar disorder, current episode depressed, mild E66.01 Morbid (severe) obesity due to excess calories Z68.41 Body mass index (BMI) 40.0-44.9, adult Office Visit 06/13/2017 3:20p [facility] Internal [place] E11.9 Type 2 diabetes Medicine - Adelina Aguila mellitus without [address] complications E03.9 Hypothyroidism, unspecified K21.9 Gastro-esophageal reflux disease without esophagitis E78.2 Mixed hyperlipidemia E66.2 Morbid (severe) obesity with alveolar hypoventilation Z68.41 Body mass index (BMI) 40.0-44.9, adult F31.70 Bipolar disord, currently in remis, most recent episode unsp Z12.11 Encounter for screening for malignant neoplasm of colon F17.210 Nicotine dependence, cigarettes, uncomplicated B37.9 Candidiasis, unspecified 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 4-Aminophenol Hospitalists derivatives, self-harm, init E11.9 Type 2 diabetes mellitus without complications F79 Unspecified intellectual disabilities [facility] T39.1x2A Poisoning by 3:24p Assocmatthieu M.D. 4-Aminophenol Hospitalists derivatives, self-harm, init E11.9 Type 2 diabetes mellitus without complications F79 Unspecified intellectual disabilities Office Visit 05/19/2016 [facility] T39.1x2A Poisoning by 3:24p Assoc,matthieu Lui M.D. 4-Aminophenol Hospitalists derivatives, self-harm, init E11.9 Type 2 diabetes mellitus without complications F79 Unspecified intellectual disabilities Office Visit 05/18/2016 [facility] T39.1x2A Poisoning by 3:23p Assoc,matthieu Lui M.D. 4-Aminophenol Hospitalists derivatives, self-harm, init E11.9 Type 2 diabetes mellitus without complications F79 Unspecified intellectual disabilities Office Visit 05/17/2016 [facility] T39.1x2A Poisoning by 3:23p Assoc,matthieu Mosquera M.D. 4-Aminophenol Hospitalists derivatives, self-harm, init E11.9 Type 2 diabetes mellitus without complications F79 Unspecified intellectual disabilities Office Visit 05/16/2016 [facility] T39.1x2A Poisoning by 3:22p Assoc,matthieu Mosquera M.D. 4-Aminophenol Hospitalists derivatives, self-harm, init E11.9 Type 2 diabetes mellitus without complications F79 Unspecified intellectual disabilities Office Visit 05/15/2016 [facility] T39.1x2A Poisoning by 3:22p Assocmatthieu M.D. 4-Aminophenol Hospitalists derivatives, self-harm, init E11.9 Type 2 diabetes mellitus without complications F79 Unspecified intellectual disabilities Office Visit 05/14/2016 [facility] T39.1x2A Poisoning by 3:22p Assoc,matthieu Daly D.O. 4-Aminophenol Hospitalists derivatives, self-harm, init E11.9 Type 2 diabetes mellitus without complications F79 Unspecified intellectual disabilities Office Visit 05/13/2016 [facility] T39.1x2A Poisoning by 3:21p Assoc,matthieu Daly D.O. 4-Aminophenol Hospitalists derivatives, self-harm, init E11.9 Type 2 diabetes mellitus without complications F79 Unspecified intellectual disabilities Office Visit 05/12/2016 [facility] T39.1x2A Poisoning by 3:21p Assoc,pc Addy, D.O. 4-Aminophenol Hospitalists derivatives, self-harm, init E11.9 Type 2 diabetes mellitus without complications F79 Unspecified intellectual disabilities Office 05/11/[address] [facility] Benjamin T39.1x2A Poisoning by Visit 3:20p Assoc,RAÚL Brewer 4-Aminophenol Hospitalists derivatives, self-harm, init E11.9 Type 2 diabetes mellitus without complications F79 Unspecified intellectual disabilities Office Visit 05/03/[address] [facility] Anu R73.9 Hyperglycemia, 11:09a Assoc,matthieu Diaz, DO unspecified Hospitalists J40 Bronchitis, not specified as acute or chronic G89.4 Chronic pain syndrome Office Visit 04/07/2016 3:52p [facility] Ml R40.4 Transient Assocmatthieu M.D. alteration of Hospitalists awareness E13.9 Other specified diabetes mellitus without complications F79 Unspecified intellectual disabilities Z91.19 Patient's noncompliance w oth medical treatment and regimen Office Visit 04/06/2016 3:52p [facility] Ml R40.4 Transient Assocmatthieu M.D. alteration of Hospitalists awareness E13.9 Other specified diabetes mellitus without complications F79 Unspecified intellectual disabilities Z91.19 Patient's noncompliance w oth medical treatment and regimen Office Visit 04/05/2016 3:51p [facility] Yara R40.4 Transient Assoc,matthieu Daly, D.O. alteration of Hospitalists awareness E13.9 Other specified diabetes mellitus without complications F79 Unspecified intellectual disabilities Z91.19 Patient's noncompliance w oth medical treatment and regimen Office Visit 04/04/2016 3:51p [facility] Yara R40.4 Transient Assoc,matthieu Daly, D.O. alteration of Hospitalists awareness E13.9 Other specified diabetes mellitus without complications F79 Unspecified intellectual disabilities Z91.19 Patient's noncompliance w oth medical treatment and regimen Office Visit 04/03/2016 3:50p [facility] Rosi R40.4 Transient Assoc,matthieu Grant, LUZ alteration of Hospitalists awareness E13.9 Other specified diabetes mellitus without complications F79 Unspecified intellectual disabilities Z91.19 Patient's noncompliance w oth medical treatment and regimen Office Visit 10/01/2015 10:08a [facility] Gray M54.31 Sciatica, right Assoc,matthieu Conn, N.P. side Hospitalists E11.9 Type 2 diabetes mellitus without complications F60.3 Borderline personality disorder Office Visit 09/28/2015 10:06a [facility] Ml M54.31 Sciatica, right Assoc,matthieu Mosquera M.D. side Hospitalists E11.9 Type 2 diabetes mellitus without complications Office Visit 04/24/[address] [facility] Conner 276.1 Hyposmolality & Or 1:31p Assmatthieu drake M.D. Hyponatremia Hospitalists 296.7 Bipolar I Disorder Current NOS 301.83 Borderline Personality Disorder Office Visit 04/23/[address] [facility] Conner 276.1 Hyposmolality & Or 1:30p Assmatthieu drake M.D. Hyponatremia Hospitalists 250.00 Diabetes Mellitus W/O Compl Type II Or Unspec Controlled 296.7 Bipolar I Disorder Current NOS 301.83 Borderline Personality Disorder Office Visit 04/22/[address] [facility] Quique 276.1 Hyposmolality & Or 1:29p Assmatthieu drake M.D. Hyponatremia Hospitalists 250.00 Diabetes Mellitus W/O Compl Type II Or Unspec Controlled 301.83 Borderline Personality Disorder Office Visit 04/21/[address] [facility] Gray 276.1 Hyposmolality & Or 1:28p Assmatthieu drake, N.P. Hyponatremia Hospitalists 296.7 Bipolar I Disorder Current NOS 301.83 Borderline Personality Disorder 250.00 Diabetes Mellitus W/O Compl Type II Or Unspec Controlled Office Visit 11/27/[address] [facility] Sherita 244.9 Hypothyroidism 8:42a Assmatthieu drake M.D. Other Unspec Hospitalists 250.02 Diabetes Mellitus W/O Compl Type II Or Unspec Type Uncontrol 301.83 Borderline Personality Disorder [facility] Poisoning By Other 4:07p Assmatthieu drake D.O. Antidepressants Hospitalists 300.9 Nonpsychotic Disorders NOS 311 Depressive Disorder Not Elsewhere Spec [facility] Po[facility] By Other Visit 4:35p Assmatthieu drake M.D. Antidepressants Hospitalists 300.9 Nonpsychotic Disorders NOS 311 Depressive Disorder Not Elsewhere Spec V11.1 History Personal Affective Disorder Office Visit 10/18/2009 1:00a [facility] [place], 789.00 Pain Abdominal Assoc,matthieu Sahu Unspec Site Hospitalists 787.03 Vomiting Alone 790.29 Other Abnormal Glucose 250.02 Diabetes Mellitus W/O Compl Type II Or Unspec Type Uncontrol Office Visit 10/17/2009 3:00a [facility] Jase [place], 790.29 Other Abnormal Assoc,matthieu Sahu Glucose Hospitalists 789.00 Pain Abdominal Unspec Site 295.70 Schizoaffective Disorder NOS 401.9 Hypertension Unspec Office Visit 10/16/2009 12:15a [facility] Sherita 790.29 Other Abnormal Assoc,matthieu Marshall M.D. Glucose Hospitalists 296.80 Bipolar Disorder NOS Plan of Treatment Future Appointment(s):10/11/2018 3:00 pm - Consuelo Corrales PA-C at [facility]10/17/2018 2:40 pm - Moreno Sandoval MD at [place] [facility]10/02/2018 3:00 pm - Rosa Schroeder MD at [facility] Internal Medicine - [address]09/25/2018 - RAÚL Gardiner-CM54.16 Radiculopathy, lumbar regionNew Xrays:MRI Lumbar Spine W/O, Scheduled: 10/04/18Follow up:after MRI
--- OUTSIDE RECORDS SUMMARY | 2018-10-08 15:19 | XMS REPORT | Continuity of Care Document ---
:1965 External Reference #:[id number] Author Name Claire Mayer Care Team Providers Name Role Phone Rosa Schroeder M.D. Primary Care Physician Unavailable Payers Date Identification Numbers Payment Provider Subscriber Effective: 1991 Policy Number: [id number] Medicare Taryn Alfaro PayID: [id number] [address] [place] [address] Policy Number: [id number] Medicaid Taryn Alfaro Group Name: 1 [address] PayID: [id number] [place] [address] Advance Directives Description No Information Available Problems [...] severe mental illness Lives With Assisted living [place] since March 2018. Was at [facility] from October-Apr 2018 Occupation Unemployed Occupation Disabled Tobacco Use Start: Unknown Patient was a states she is cigarette smoker, quitting current status is unknown Smoking Status Reviewed: 09/06/18 Patient was a states she is cigarette [...] 05/10/2017 Tramadol altered mental status Active 05/10/2017 [place] Active 05/08/2018 Lurasidone Active Moderate 05/22/2018 Metformin Diarrhea Active Medications Medication Date Status Form Strength Qnty SIG Indications Ordering Provider Nicolo CQ 09/06 Active Patches 21mg/24HR 28uni apply one F17.210 24HR ts to skin MD Alexandre every day Gabapentin 09/06 Active Capsules 100mg 60cap 2 tabs at /2018 s bedtime Ordering Provider Creon 09/[address] [id number] 90cap one po tid R19.7 Part Unit s right MD Alexandre before meals Onetouch Delica 09/04 Active Misc 100un test 2 - 3 E11.9 Lawrence Mar its times a day Katelyn Ospina 33G M.D.,FACP Arnuity Ellipta 07/26 Active Aerosol 100mcg/Ac 30uni 1 puff t ts inhaled MD Alexandre every day Levothyroxine 07/17 Active Tablets 175mcg 30tab take 175mcg E03.9 Mayer Sodium s daily on an MD Lori empty stomach Depend 12/03 Active Misc 120un use four Danya its times a day Cotton, Underwear L/XL M.D. Naproxen 06/29 Active Tablets 500mg 14tab take 1 s tablet Kamille Denson, twice daily M.D.,FACP with food prn Flonase Allergy 06/23 Active Suspension 50mcg/Act 9.900 2 sprays in ml each MD Alexandre nostril twice a day Fiasp Flextouch 05/19 Active Solution 100Unit/M 45ml 22 units E11.65 Pen-Inject L per meal 3 MD Alexandre times daily Basaglar 05/19 Active Solution 100Unit/M 6ml 66 units Robyn Kwik Pen-Inject L once daily MD Cesar Nicotrol 05/18 Active Inhaler 10mg 168un 1 its cartridges Kamille Denson, every 2 M.D.,FACP hours as needed Nystatin 05/15 Active Powder 203342Xts 90gm apply twice t/GM daily until MD Alexandre rash clears Walker Auto 05/15 Active Misc -08/08" 1unit use this to s ambulate MD Alexandre Adjustment daily for -08/08" unsteady gait Ventolin HFA 05/15 Active Aerosol 108(90Bas 8gm 2 by mouth e) every 4 MD Alexandre mcg/Act hours as needed Onetouch Ultra 09/09 Active Strips 100un test up to Z79.4 its three times MD Alexandre daily last visit:05/08 E11.65 E11.9 BD Pen 08/24/2017 Active Misc 32G 120units use three E11.9 Rosa Needle/Suzanna/Ultra X 4 times a day Katelyn Schroeder/32G X 4mm mm daily. last MD visit [...] mouth Rosa g twice a day MD Alexanrde Losartan Potassium Active Tablets 50mg 90tabs 1 [...] 5% 60units 1 apply to Rosa affected [facility], area 12 MD hours on, 12 hours [...] Hx Tablets 250m 6tabs 2 every day AlysonKari - g for 1 day, l D. 07/31/2018 then 1 every Leland, day M.DJarred,FAC P Methylprednisolone 06/29/2018 Hx TBPK 4mg 21units [...] to engage in Schroeder, 07/03/2018 exercise at [place] facilities under direct supervision of staff Trehenrry Flextouch 10/13/2017 Hx Solution 100U 15ml 100 units at E11.65 Chapo - Pen-Injec nit/ bedtime Pachikar 05/08/2018 t ML Adelina beltran Losartan Potassium 10/13/2017 Hx Tablets 25mg 30tabs 1 by mouth E11.65 [place] - once a day Pachikar 05/08/2018 Adelina beltran Hydrocodone-Acetami 10/10/2017 Hx Tablets 5-32 20tabs 1 tab every [place] nophen - 5mg 12h as Pachikar 05/08/2018 needed Adelina beltran Tresiba Flextouch 09/19/2017 Hx Solution 100U 15ml 60 units at E11.65 [place] - Pen-Injec nit/ bedtime Pachikar 10/13/2017 t ML Adelina beltran Onetouch Ultrasoft 08/31/2017 Hx Misc 100units test blood E11.9 Alyson Mar - 2-3 a day or l D. 09/04/2018 as needed Adelina Denson,FAC P Onetouch Ultra Mini 08/31/2017 Hx Lancets 100units check bs [place] - twice daily Pachikar 05/08/2018 Adelina beltran Onetouch Ultra Mini 08/31/2017 Hx Strips 100units test up to E11.9 [place] - three times l D. 09/09/2017 daily last Janiya, visit: Adelina,FAC 8 P Mucinex 08/28/2017 Hx Tablets 600m 20tabs 1 po bid prn [place] - ER 12HR g l D. 05/08/2018 Adelina Denson,FAC P Doxycycline 08/28/2017 Hx Capsules 100m 13caps 1 by mouth Unknown Monohydrate - g twice a day 09/04/2017 x 7 days Tresiba Flextouch 08/26/2017 Hx Solution 200U 18ml 30u SC in Am Alyson Pierce - Pen-Injec nit/ and 70u SC l [...] 150m 2tabs one by mouth Jadiel-Kari - nohemi may repeat l D. 05/08/2018 in 3 days as virginia Denson M.D.,FAC P Lancets 28G 08/08/2017 Hx Misc 28G 100units use with one [place] - touch meter, Pachikar 08/31/2017 check bs Adelina beltran daily Onetouch 08/08/2017 Hx Strips 100units test twice [place] - daily and as Pachikar 08/31/2017 needed Adelina beltran Janumet 07/15/2017 Hx Tablets 50-5 60tabs 1 by mouth E11.9 [place] - 00mg twice a day Pachikar 05/08/2018 Adelina beltran Glucocom Blood 07/03/2017 Hx Kit W/De 1units one touch Erik Glucose Monitoring - rust glucometer Kavita, System 08/31/2017 to measure M.D. blood sugar daily Nicotrol 06/13/2017 Hx Inhaler 10mg 168units use 4-5 F17.21 Chapo - times daily 0 Pachikar 05/08/2018 Adelina beltran Clotrimazole 06/13/2017 Hx Cream 1% 90gm apply twice B37.9 Chapo - daily Pachikar 05/08/2018 Adelina beltran Acetaminophen-Codei [...] Sodium Hx Tablets 40mg 30tabs take 1 Chapo - DR tablet by Pachikar 05/08/2018 mouth [...] Hx Tablets 50mc 90tabs 1 tab daily [place] Sodium - g in the empty Pachikar 05/08/2018 stomach a, M.D. Levothyroxine Hx Tablets 200m 90tabs 1 tab daily Chapo Sodium - cg am in the Pachikar 05/08/2018 empty a, M.D. stomach Naproxen Hx Tablets 500m 60tabs twice daily [place] - g Pachikar 07/15/2017 a, M.D. Lantus Solostar Hx Solution 100U 15ml 30 units SC Jadiel-Kari - Pen-Injec nit/ in Am, and l D. 08/26/2017 t ML 70 units SC Leland, a hs M.D.,FAC P Atorvastatin Hx Tablets 40mg 90tabs take one [place] Calcium - tablet by [facility] 05/08/2018 mouth every a, M.D. day Pictonix Hx 40 mg daily Unknown - Unknown Novalog Hx 10 units Unknown - before meals 05/08/2018 Levothyroxine Hx Tablets 150m 90tabs 1 by mouth E03.9 Rosa Sodium - cg every day Alexandre, 07/17/2018 MD Rain Restrepo Hx Solution 100U 9ml 4-10 Units E11.65 Rosa - Pen-Injec nit/ SQ three Alexandre, 05/19/2018 t ML times a day, at [...] CPT Code Status Date Vaccine Lot # [id number] Given 05/01/2018 Influenza Virus Vaccine, Quadrivalent, Split, Preservative Free Vital Signs Date Vital Result Comment 09/06/2018 1:48pm Height 67 inches 5'7" Weight [...] Result H/L Range Note Laboratory test 08/22/2018 [facility] Point of Care 321 mg/dL High 70-100 [address] [place] [address] [phone] Laboratory test 08/22/2018 [facility] Point of Care 202 mg/dL High 70-100 [address] [place] [address] [phone] CBC Auto Diff 08/22/2018 [facility] White Blood 10.7 10^3/uL N 3.5-10.[address] [place] [address] [phone] Red Blood Count 4.66 10^6/uL N 4.00-5.40 [...] Blood Cells % 0 Comp Metabolic Panel 08/22/2018 [facility] Sodium 139 mmol/L N 135-[address] [place] [address] [phone] Potassium 4.7 mmol/L N 3.5-5.0 Chloride 104 [...] Egfr Non- 61.0 >60 Egfr 73.8 >60 3 Laboratory test 08/22/2018 [facility] Acetaminophen < 15 g/mL [address] [place] [address] [phone] Alcohol < 10 mg/dL N <10 Salicylate < 2.50 mg/dL <30 TSH (Thyroid Stim Horm) 8.26 mcIU/mL High 0.34-5.60 CBC Auto Diff 08/19/2018 [facility] White Blood 9.3 10^3/uL N 3.5-10.[address] [place] [address] [phone] Red Blood Count 4.42 10^6/uL N 4.00-5.40 [...] Cells % 0.1 Comp Metabolic Panel 08/19/2018 [facility] Sodium 139 mmol/L N 135-[address] [place] [address] [phone] Chloride 108 mmol/L N 101-111 Co2 Carbon [...] 47 U/L High 13-39 Laboratory test 08/19/2018 [facility] HCG 2.61 mIU/mL [address] [place] [address] [phone] Acetaminophen < 15 g/mL 7 Alcohol < 10 mg/dL N <10 Salicylate < 2.50 mg/dL <30 TSH (Thyroid Stim Horm) 7.94 mcIU/mL High 0.34-5.60 Laboratory 08/17/2018 [facility] Point of Care 145 mg/dL High 70-100 8 test finding [address] [place] [place] [address] [phone] Laboratory 08/15/2018 [facility] Miscellaneous See 9, 10 test finding [address] [place] [place] [address] [phone] Comp 07/31/2018 [facility] Sodium 136 mmol/L N 135-145 [address] [place] [address] [phone] Potassium 4.9 mmol/L N 3.5-5.0 Chloride 104 [...] Egfr 93.8 >60 12 Lipid Profile 07/31/2018 [facility] Triglycerides 113 mg/dL 13 (Trig/Chol/HDL) [address] [place], [place] [address] [phone] Cholesterol 94 mg/dL 14 HDL Cholesterol 34.8 mg/dL 15 LDL Cholesterol 37 mg/dL 16 Laboratory test finding 07/31/2018 [facility] GGTP 50 U/L N 9- 64.[address] [place] [address] [phone] Hemoglobin A1c (Glyco HGB) 8.3 % High 4.0-5.6 18 Laboratory test 07/20/2018 [facility] Point of Care 78 mg/dL N 70-100 [address] [place] [address] [phone] CBC Auto Diff 07/20/2018 [facility] White Blood 8.8 10^3/uL N 3.5-10.[address] [place] [address] [phone] Red Blood Count 4.30 10^6/uL N 4.00-5.40 [...] Cells % 0 Basic Metabolic Panel 07/20/2018 [facility] Sodium 140 mmol/L N 135-[address] [place] [address] [phone] Potassium 4.0 mmol/L N 3.5-5.0 Chloride 108 mmol/L N 101-111 Co2 Carbon Dioxide 26 mmol/L N 22-32 Anion Gap 6 mmol/L N 2-11 Glucose 82 mg/dL N 70-100 Blood Urea Nitrogen 13 mg/dL N 6-24 Creatinine 0.71 mg/dL N 0.51-0.95 BUN/Creatinine Ratio 18.3 N 8-20 Calcium 9.3 mg/dL N 8.6-10.3 Egfr Non- 86.4 >60 Egfr 104.6 >60 20 Urine Culture And 07/10/2018 [facility] Urine Culture SEE RESULT [address] [place] [address] [phone] Urine Drug SCR ED 07/10/2018 [facility] Amphetamine Ur None None & [facility] [address] [place] [address] [phone] Barbiturates Urine Screen None Detected None Detect Benzodiazepine Urine Screen None Detected None Detect Urine Cannabinoids Screen None Detected None Detect Urine Cocaine Screen None Detected None Detect Urine Opiates Screen None Detected None Detect Urine Phencyclidine Screen None Detected None Detect 22 CBC Auto 07/10/2018 [facility] White Blood 14.1 10^3/uL High 3.5-10.[address] [place] [address] [phone] Red Blood Count 4.77 10^6/uL N 4.00-5.40 [...] Blood Cells % 0 Urinalysis Profile 07/10/2018 [facility] Urine Color Yellow [address] [place] [address] [phone] Urine Appearance Cloudy Urine Specific [place] 1.017 N 1.010-1.030 Urine pH 5.0 N [...] Urine Squamous Epithelial Cell Present Abnormal Absent Laboratory test 07/10/2018 [facility] Acetaminophen < 15 g/mL 23 finding [address] [place] [address] [phone] Alcohol < 10 mg/dL N <10 Salicylate < 2.50 mg/dL <30 TSH (Thyroid Stim Horm) 9.45 mcIU/mL High 0.34-5.60 Comp Metabolic Panel 07/10/2018 [facility] Sodium 136 mmol/L N 135-[address] [place] [phone] Potassium 4.6 mmol/L N 3.5-5.0 Chloride 102 [...] Egfr Non- 54.4 >60 Egfr 65.9 >60 24 Laboratory test 06/26/2018 [facility] Point of Care 98 mg/dL N 70-100 25 finding [address] [place] [address] [phone] Urinalysis Profile 06/26/2018 [facility] Urine Color Straw [address] [place] [address] [phone] Urine Appearance Clear Urine Specific [place] 1.005 Low 1.010-1.030 Urine pH 6.0 N 5-9 Urine Urobilinogen Negative Negative Urine Ketones Negative Negative Urine Protein Negative Negative Urine Leukocytes Negative Negative Urine Blood Negative Negative Urine Nitrite Negative Negative Urine Bilirubin Negative Negative Urine Glucose Negative Negative Laboratory test 06/26/2018 [facility] Acetaminophen < 15 g/mL 26 finding [address] [place] [address] [phone] Alcohol < 10 mg/dL N <10 Salicylate < 2.50 mg/dL <30 Lactic Acid 0.9 mmol/L N 0.5-2.0 27 Laboratory test 06/26/2018 [facility] Point of 143 mg/dL High 70-100 28 finding [address] [place] [address] [phone] Laboratory test 06/26/2018 [facility] Point of 72 mg/dL N 70- 100 29 finding [address] [place] [address] [phone] Comp Metabolic 06/26/2018 [facility] Sodium 137 mmol/L N 135- 145 Panel [address] [place] [address] [phone] Potassium 4.3 mmol/L N 3.5-5.0 Chloride 105 [...] Egfr Non- 79.0 >60 Egfr 95.6 >60 30 CBC Auto 06/26/2018 [facility] White Blood 10.9 10^3/uL High 3.5-10.[address] [place] [address] [phone] Red Blood Count 4.42 10^6/uL N 4.00-5.40 [...] Blood Cells % 0 Urine Drug 06/26/2018 [facility] Amphetamine Ur None Detected None Detect SCR ED & [address] Screen [place] [address] [phone] Barbiturates Urine Screen None Detected None Detect Benzodiazepine Urine Screen None Detected None Detect Urine Cannabinoids Screen None Detected None Detect Urine Cocaine Screen None Detected None Detect Urine Opiates Screen None Detected None Detect Urine Phencyclidine Screen None Detected None Detect 31 CBC Auto Diff 05/18/2018 [facility] White Blood 10.8 10^3/uL N 3.5-10.[address] [place] [address] [phone] Red Blood Count 4.33 10^6/uL N 4.00-5.40 [...] Cells % 0.1 Comp Metabolic Panel 05/18/2018 [facility] Sodium 139 mmol/L N 135-[address] [place] [address] [phone] Potassium 4.5 mmol/L N 3.5-5.0 Chloride 107 [...] Egfr 98.6 >60 32 Laboratory test 05/18/2018 [facility] Lipase < 10 U/L Low 11.0 -82.[address] [place] [address] [phone] Lactic Acid 1.1 mmol/L N 0.5-2.0 33 Laboratory test 05/15/2018 [facility] C Difficile PCR SEE RESULT [address] [place] [address] [phone] Laboratory test 05/11/2018 [facility] Glucose 342 mg/dL High 70-[address] Confirmatory 00 [place], [place] [address] [phone] Laboratory test 05/11/2018 [facility] Point of Care 402 mg/dL High 70-1 [address] Glucose 00 [place] [address] [phone] Laboratory test 05/11/2018 [facility] Point of Care 426 mg/dL High 70-1 [address] Glucose 00 [place] [address] [phone] CBC Auto Diff 05/10/2018 [facility] White Blood Count 12.0 High 3.5- [address] 10^3/uL 10.8 [place], [place] [id number] [phone] Red Blood Count 4.39 10^6/uL N 4.00-5.40 [...] Cells % 0.1 Comp Metabolic Panel 05/10/2018 [facility] Sodium 141 mmol/L N 135-[address] [place] [address] [phone] Potassium 4.9 mmol/L N 3.5-5.0 Chloride 107 [...] Egfr 90.2 >60 37 Laboratory test 05/10/2018 [facility] Lipase < 10 U/L Low 11.0 -82.[address] [place] [address] [phone] C Reactive Protein 6.43 mg/L N <8.01 Lactic Acid 1.2 mmol/L N 0.5-2.0 38 Urine Microalbumin 05/08/2018 [facility] Ur Microalbumin < 15.[address] (mg/L) [place] [address] [phone] Urine Creatinine 224.47 mg/dL Urine Microalbumin/Creatinine TNP <31 39 Laboratory test 05/08/2018 [facility] House Hemoglobin A1c 9.7 High 5-7 finding Urinalysis Profile 11/02/2017 [facility] Urine Color Yellow [address] [place] [address] [phone] Urine Appearance Clear Urine Specific [place] 1.018 N 1.010-1.030 Urine pH 5.0 N 5-9 Urine Urobilinogen Negative Negative Urine Ketones Negative Negative Urine Protein Negative Negative Urine Leukocytes Negative Negative Urine Blood Negative Negative Urine Nitrite Negative Negative Urine Bilirubin Negative Negative Urine Glucose 1+(50 mg/dL) Abnormal Negative Laboratory test 11/02/2017 [facility] Magnesium 1.9 mg/dL N 1.9-2.7 finding [address] [place] [address] [phone] Creatine Kinase(CK) 72 U/L N 10-223 Troponin-I (TnI) 0.03 ng/mL <0.04 Acetaminophen < 15 g/mL 40 Alcohol < 10 mg/dL N <10 Salicylate < 2.50 mg/dL <30 TSH (Thyroid Stim Horm) 1.79 mcIU/mL N 0.34-5.60 Comp Metabolic 11/02/2017 [facility] Potassium 4.4 mmol/L N 3.5-5.0 Panel [address] [place] [address] [phone] Chloride 107 mmol/L N 101-111 Co2 Carbon [...] Egfr Non- 70.5 >60 Egfr 90.7 >60 41 Sodium 142 mmol/L N 139-145 Anion Gap 5 mmol/L N 2-11 CBC Auto Diff 11/02/2017 [facility] White Blood 8.5 10^3/uL N 3.5-10.[address] [place] [address] [phone] Red Blood Count 4.40 10^6/uL N 4.0-5.4 [...] 0-2 Nucleated Red Blood Cells % 0 Arterial Blood Gas 11/02/2017 [facility] PH Arterial 7.36 N 7.35-7.[address] [place] [address] [phone] Pco2 Arterial 50 mmHg High 35-45 Po2 Arterial 65 mmHg Low 80-100 O2 Saturation Arterial 91.1 % Low 95-98 Base Excess Arterial 2.1 High -2.0-2.0 42 Hco3 Arterial 26.4 mmol/L N 19-31 Laboratory test finding 11/02/2017 [facility] Ammonia 37 ?mol/L N 16-[address] [place] [address] [phone] Lactic Acid 1.0 mmol/L N 0.5-2.0 43 Urine Drug 11/02/2017 [facility] Amphetamine Ur None Detected None Detect SCR ED & [address] [place] [address] [phone] Barbiturates Urine Screen None Detected None Detect Benzodiazepine Urine Screen None Detected None Detect Urine Cannabinoids Screen None Detected None Detect Urine Cocaine Screen None Detected None Detect Urine Opiates Screen Presumptive Posi <SEE NOTE> Abnormal None Detect 44 Urine Phencyclidine Screen None Detected None Detect 45 Laboratory test 10/02/2017 [facility] CRP High 3.53 mg/L [address] [place] [address] [phone] Comp Metabolic 10/02/2017 [facility] Sodium 136 mmol/L N 133- [address] 5 [place] [address] [phone] Potassium 4.5 mmol/L N 3.5-5.0 Chloride 103 [...] Egfr Non- 70.5 >60 Egfr 90.7 >60 47 CBC Auto Diff 10/02/2017 [facility] White Blood 10.3 10^3/uL N 3.5-10.[address] [place] [address] [phone] Red Blood Count 4.29 10^6/uL N 4.0-5.4 [...] Red Blood Cells % 0 Laboratory test 09/28/2017 [facility] House Hemoglobin A1c 9.1 High 5-7 finding Laboratory test 09/13/2017 [facility] Point of Care 260 mg/dL High 70-100 [address] [place] [address] [phone] Laboratory test 09/13/2017 [facility] Point of Care 179 mg/dL High 70-100 [address] [place] [address] [phone] Comp Metabolic 08/29/2017 [facility] Sodium 136 mmol/L N 133- [address] [place] [address] [phone] Potassium 4.9 mmol/L N 3.5-5.0 Chloride 104 [...] Egfr 60.9 >60 50 Laboratory test 08/29/2017 [facility] Lipase < 10 U/L Low 11.0 -82.[address] [place] [address] [phone] CRP High Sensitivity 1.79 mg/L 51 Troponin-I (TnI) 0.00 ng/mL <0.04 CBC Auto Diff 08/29/2017 [facility] White Blood 9.1 10^3/uL N 3.5-10.[address] [place] [address] [phone] Red Blood Count 4.06 10^6/uL N 4.0-5.4 [...] Blood Cells % 0 Laboratory test 08/29/2017 [facility] B-Type 21 pg/mL [address] [place] [address] Peptide BNP [phone] Inr/Protime 08/26/2017 [facility] Inr 0.82 N 0.77- [address] 1.02 [place] [address] [phone] Laboratory test 08/26/2017 [facility] Partial Thrombo 27.7 seconds N 26.0- finding [address] Time PTT 36.3 [place] [id number] [phone] CBC Auto Diff 08/26/2017 [facility] White Blood 9.0 10^3/uL N 3.5-[address] Count 0.8 [place] [address]213 [phone] Red Blood Count 4.42 10^6/uL N 4.0-5.4 [...] Blood Cells % 0 Laboratory test 08/26/2017 [facility] Troponin-I (TnI) 0.01 ng/ mL <0.[address] [place] [address] [phone] Comp Metabolic 08/26/2017 [facility] Sodium 139 mmol/L N 133- 145 Panel [address] [place] [address] [phone] Potassium 5.0 mmol/L N 3.5-5.0 Chloride 105 [...] Non- 62.8 >60 Egfr 80.7 >60 53 Laboratory test 08/25/2017 [facility] Point of Care 157 mg/dL High 70-100 54 finding [address] [place] [address] [phone] Urinalysis 08/25/2017 [facility] Urine Color Yellow Profile [address] [place] [address] [phone] Urine Appearance Clear Urine Specific [place] 1.010 N 1.010-1.030 Urine pH 5.0 N 5-9 Urine Urobilinogen Negative Negative Urine Ketones Negative Negative Urine Protein Negative Negative Urine Leukocytes Negative Negative Urine Blood Negative Negative Urine Nitrite Negative Negative Urine Bilirubin Negative Negative Urine Glucose 3+(>=500 mg/dL) Abnormal Negative Laboratory test 08/25/2017 [facility] Point of 289 mg/dL High 70-100 [address] [place] [address] [phone] Venous Blood 08/25/2017 [facility] Venous Blood 7.48 High 7.33 -7.43 Gas [address] [place] [address] [phone] Venous Pco2 31 mmHg Low 41-51 Venous Po2 98 mmHg High 35-45 Venous O2 Saturation 95.3 % High 70-80 Venous Blood Base Excess 0.1 N 0-4 56 Venous Bicarbonate Hco3 25.0 mmol/L N 24-28 CBC Auto Diff 08/25/2017 [facility] White Blood 8.9 10^3/uL N 3.5-10.[address] [place] [address] [phone] Red Blood Count 4.33 10^6/uL N 4.0-5.4 [...] Cells % 0 Comp Metabolic Panel 08/25/2017 [facility] Sodium 134 mmol/L N 133-[address] [place] [address] [phone] Potassium 4.8 mmol/L N 3.5-5.0 Chloride 101 [...] Non- 68.6 >60 Egfr 88.3 >60 57 Laboratory test 08/25/2017 [facility] C Reactive 3.27 mg/L N < 5.00 [address] [place] [address] [phone] Laboratory test 08/23/2017 [facility] Point of Care 224 mg/dL High 70-100 [address] [place] [place] [address] [phone] Inr/Protime 08/22/2017 [facility] Inr 0.91 N 0.77-1.[address] [place] [address] [phone] Laboratory test 08/22/2017 [facility] Lactic Acid 1.3 N 0.5- 2.0 [address] mmol/[place] [address] [phone] Comp Metabolic 08/22/2017 [facility] Sodium 131 Low 133-[address] mmol/[place] [address] [phone] Potassium 4.6 mmol/L N 3.5-5.0 Chloride 98 [...] mg/dL High 70-100 62 Laboratory test 08/22/2017 [facility] Magnesium 2.0 mg/dL N 1.9-2.[address] [place] [address] [phone] Creatine Kinase(CK) 121 U/L N 10-223 C Reactive Protein 4.62 mg/L N < 5.00 63 Troponin-I (TnI) 0.01 ng/mL <0.04 Laboratory test 08/22/2017 [facility] Glucose 417 mg/dL High 70-[address] [place] [address] [phone] Laboratory test 08/22/2017 [facility] Point of > 444 mg/dL High 70-[address] [address] [phone] Urinalysis 08/22/2017 [facility] Urine Color Yellow Profile [address] [place] [address] [phone] Urine Appearance Cloudy Urine Specific [place] 1.023 N 1.010-1.030 Urine pH 6.0 N [...] Present Abnormal Absent Urine Culture And 08/22/2017 [facility] Urine Culture SEE RESULT [address] [place] [address] [phone] CBC Auto Diff 08/22/2017 [facility] White Blood 8.9 10^3/uL N 3.5-[address] Count 0.8 [place] [address] [phone] Red Blood Count 4.19 10^6/uL N 4.0-5.4 [...] Cells % 0.1 Venous Blood Gas 08/22/2017 [facility] Venous Blood pH 7.42 N 7.33-7.43 [address] [place] [address] [phone] Venous Pco2 49 mmHg N 41-51 Venous Po2 36 mmHg N 35-45 Venous O2 Saturation 78.1 % N 70-80 Venous Blood Base Excess 6.3 High 0-4 66 Venous Bicarbonate Hco3 29.4 mmol/L High 24-28 Laboratory test 08/18/2017 [facility] Point of Care 180 mg/dL High 70-[address] [facility] [place] [place] [address] [phone] Urinalysis 08/17/2017 [facility] Urine Color Yellow Profile [address] [place] [address] [phone] Urine Appearance Cloudy Urine Specific [place] 1.016 N 1.010-1.030 Urine pH 5.0 N 5-9 Urine Urobilinogen Negative Negative Urine Ketones Negative Negative Urine Protein Negative Negative Urine Leukocytes Negative Negative Urine Blood Negative Negative Urine Nitrite Negative Negative Urine Bilirubin Negative Negative Urine Glucose 3+(>=500 mg/dL) Abnormal Negative Urine Drug 08/17/2017 [facility] Amphetamine Ur None Detected None Detect SCR ED & [address] [place] [address] [phone] Barbiturates Urine Screen None Detected None Detect Benzodiazepine Urine Screen None Detected None Detect Urine Cannabinoids Screen None Detected None Detect Urine Cocaine Screen None Detected None Detect Urine Opiates Screen None Detected None Detect Urine Phencyclidine Screen None Detected None Detect 68 Laboratory test 08/17/2017 [facility] Point of 276 mg/dL High 70-100 [address] [place] [address] [phone] Laboratory test 08/17/2017 [facility] Point of > 444 High 70- 100 [address] Care Glucose mg/[place] [address] [phone] Venous Blood 08/17/2017 [facility] Venous Blood 7.36 N 7.33- 7.[address] [place] [address] [phone] Venous Pco2 48 mmHg N 41-51 Venous Po2 29 mmHg Low 35-45 Venous O2 Saturation 59.9 % Low 70-80 Venous Blood Base Excess 1.1 N 0-4 71 Venous Bicarbonate Hco3 24.9 mmol/L N 24-28 CBC Auto Diff 08/17/2017 [facility] White Blood 10.8 10^3/uL N 3.5-10.[address] [place] [address] [phone] Red Blood Count 4.74 10^6/uL N 4.0-5.4 [...] Cells % 0 Comp Metabolic Panel 08/17/2017 [facility] Sodium 133 mmol/L N 133-145 [address] [place] [address] [phone] Potassium 4.9 mmol/L N 3.5-5.0 Chloride 101 [...] mg/dL High 70-100 73 Laboratory test 08/17/2017 [facility] Acetaminophen < 15 g/mL 74 finding [address] [place] [address] [phone] Alcohol < 10 mg/dL N <10 Salicylate < 2.50 mg/dL <30 TSH (Thyroid Stim Horm) 2.76 mcIU/mL N 0.34-5.60 Lamotrigine (Lamictal) 4.2 g/mL 2.5 - 15.0 75 Laboratory test 08/17/2017 [facility] Point of > 444 mg/dL High 70-[address] [facility] [place] [address] [phone] Laboratory test 08/09/2017 [facility] Point of 266 mg/dL High 70-100 [address] [place] [address] [phone] Urinalysis 08/08/2017 [facility] Urine Color Yellow Profile [address] [place] [address] [phone] Urine Appearance Cloudy Urine Specific [place] 1.022 N 1.010-1.030 Urine pH 6.0 N 5-9 Urine Urobilinogen Negative Negative Urine Ketones Negative Negative Urine Protein Negative Negative Urine Leukocytes Negative Negative Urine Blood Negative Negative Urine Nitrite Negative Negative Urine Bilirubin Negative Negative Urine Glucose 3+(>=500 mg/dL) Abnormal Negative Urine Drug 08/08/2017 [facility] Amphetamine Ur None Detected None Detect SCR ED & [address] [place] [address] [phone] Barbiturates Urine Screen None Detected None Detect Benzodiazepine Urine Screen None Detected None Detect Urine Cannabinoids Screen None Detected None Detect Urine Cocaine Screen None Detected None Detect Urine Opiates Screen None Detected None Detect Urine Phencyclidine Screen None Detected None Detect 78 CBC Auto 08/08/2017 [facility] White Blood 11.9 10^3/uL High 3.5-10.[address] [place] [address] [phone] Red Blood Count 4.78 10^6/uL N 4.0-5.4 [...] Cells % 0 Comp Metabolic Panel 08/08/2017 [facility] Sodium 136 mmol/L N 133-[address] [place] [address] [phone] Potassium 4.3 mmol/L N 3.5-5.0 Chloride 100 [...] Egfr Non- 74.5 >60 Egfr 95.9 >60 79 Laboratory test 08/08/2017 [facility] Acetaminophen < 15 g/mL 80 finding [address] [place] [address] [phone] Alcohol < 10 mg/dL N <10 Salicylate < 2.50 mg/dL <30 TSH (Thyroid Stim Horm) 2.67 mcIU/mL N 0.34-5.60 Lamotrigine (Lamictal) 2.5 g/mL 2.5 - 15.0 81 Laboratory test 08/04/2017 [facility] Point of Care 258 mg/dL High 70-[address] [place] [address] [phone] Laboratory test 08/04/2017 [facility] Point of Care 175 mg/dL High 70-[address] [place] [address] [phone] Laboratory test 08/04/2017 [facility] Point of Care 284 mg/dL High 70-100 [address] [place] [address] [phone] Urinalysis 08/03/2017 [facility] Urine Color Yellow Profile [address] [place] [address] [phone] Urine Appearance Cloudy Urine Specific [place] 1.012 N 1.010-1.030 Urine pH 5.0 N [...] Crystals Present Abnormal Absent Urine Drug 08/03/2017 [facility] Amphetamine Ur None Detected None Detect SCR ED & [address] [place] [address] [phone] Barbiturates Urine Screen None Detected None Detect Benzodiazepine Urine Screen None Detected None Detect Urine Cannabinoids Screen None Detected None Detect Urine Cocaine Screen None Detected None Detect Urine Opiates Screen None Detected None Detect Urine Phencyclidine Screen None Detected None Detect 85 Urine Culture And 08/03/2017 [facility] Urine SEE RESULT [address] [place] [address] [phone] CBC Auto Diff 08/03/2017 [facility] White Blood 10.9 High 3.5- [address] Count 10^3/uL 0.8 [place] [address] [phone] Red Blood Count 4.61 10^6/uL N 4.0-5.4 [...] Cells % 0 Comp Metabolic Panel 08/03/2017 [facility] Sodium 132 mmol/L Low 133-[address] [place] [address] [phone] Potassium 4.6 mmol/L N 3.5-5.0 Chloride 98 [...] Egfr 87.1 >60 87 Laboratory test 08/03/2017 [facility] Acetaminophen < 15 g/mL [address] [place] [address] [phone] Alcohol < 10 mg/dL N <10 Salicylate < 2.50 mg/dL <30 TSH (Thyroid Stim Horm) 0.60 mcIU/mL N 0.34-5.60 Laboratory test 08/02/2017 [facility] Troponin-I 0.03 <0.[address] (TnI) ng/[place] [address] [phone] Laboratory test 08/02/2017 [facility] Troponin-I 0.01 <0.[address] (TnI) ng/[place] [address] [phone] CBC Auto Diff 08/02/2017 [facility] White Blood 13.8 High 3.5- 10.[address] Count 10^3/[place] [address] [phone] Red Blood Count 4.64 10^6/uL N 4.0-5.4 [...] Cells % 0 Comp Metabolic Panel 08/02/2017 [facility] Sodium 133 mmol/L N 133-[address] [place] [address] [phone] Potassium 4.7 mmol/L N 3.5-5.0 Chloride 101 [...] Non- 76.7 >60 Egfr 98.7 >60 89 Urine Culture And 08/01/2017 [facility] Urine Culture SEE RESULT 90, [address] [place] [address] [phone] Laboratory test 06/13/2017 [facility] Hemoglobin A1c 9.2 High 5-7 finding Laboratory test 06/03/2017 [facility] Point of Care 184 mg/dL High 70-1 [address] Glucose 00 [place], [place] [address] [phone] Laboratory test 06/03/2017 [facility] Point of Care 256 mg/dL High 70-1 [address] Glucose 00 [place], [place] [address] [phone] Laboratory test 06/03/2017 [facility] Point of Care 329 mg/dL High 70-1 [address] Glucose 00 [place] [address] [phone] Laboratory test 06/03/2017 [facility] Point of Care 384 mg/dL High 70-1 [address] Glucose 00 [place], [place] [address] [phone] Laboratory test 06/03/2017 [facility] Point of Care > 444 High 70-1 [address] Glucose mg/dL 00 [place], [place] [address] [phone] Laboratory test 06/03/2017 [facility] Point of Care > 444 High 70-1 [address] Glucose mg/dL 00 [place] [address] [phone] 1 [place]: [id number] 2 [place]: [id number] 3 Because ethnic data is not always [...] 5 Kidney failure <15 (or dialysis) 4 Therapeutic concentration: <50 ug/mL Toxic concentration: >120 ug/mL 5 Because ethnic data is not always [...] <50 ug/mL Toxic concentration: >120 ug/mL 8 [place]: [id number] Test Result Flag Unit RefValue TRYPSIN [...] cannot be used interchangeably. Test Performed by: [facility] [address] [place] [id number] 12 Because ethnic data is not always [...] 130-159 High: 160-189 Very High: >189 17 [id number] 18 Therapeutic target for the treatment of diabetes mellitus patients is <7% HBA1C, and in selective patients <6.0%. Please refer to [place] [employer] diabetic care guidelines for further information. 19 [place]: [id number] 20 Because ethnic data is not always [...] 5 Kidney failure <15 (or dialysis) 21 SEE RESULT BELOW Name: TARYN ALFARO : [address]: Sendy Mcdowell MD Acct: [id number] Unit: [id number] AGE: 53 Location: ED Re07/10/18 SEX: F Status: DEP ER SPEC: [id number] ANKUR: 07/10/[address] [facility] [address]: Sendy Mcdowell MD REQ: [id number] RECD: 07/10/18 STATUS: TASHA BARFIELD DR: Chapo Aguila MD _ SOURCE: URINE SPDESC: ORDERED: Urine Culture Procedure Result Reported Site Urine Culture Final 07/12/18- 0845 ML No growth of clinically significant organisms * ML - Main Lab . END OF REPORT DEPARTMENT OF PATHOLOGY, [address] [place] [address] Tay Gamboa M.D. Director [facility] # [id number] 22 The urine specimen was tested at the listed cutoffs: Drug class test level (ng/mL) Amphetamines 500 Barbiturates 200 Benzodiazepine metabolites 200 Cocaine metabolites 150 Cannabinoids 50 Opiates 300 Pcp 25 Specimen was received without chain of custody. Results should be used for medical purposes only. 23 Therapeutic concentration: <50 ug/mL Toxic concentration: >120 ug/mL 24 Because ethnic data is not always [...] 5 Kidney failure <15 (or dialysis) 25 [place]: [id number] 26 Therapeutic concentration: <50 ug/mL Toxic concentration: >120 ug/mL 27 [facility] Severe Sepsis and Septic Shock Management Bundle Measure requires all lactic acids initially measuring >2.0 mmol/L be repeated. 28 [place]: [id number] 29 [place]: [id number] 30 Because ethnic data is not always [...] 5 Kidney failure <15 (or dialysis) 31 The urine specimen was tested at the listed cutoffs: Drug class test level (ng/mL) Amphetamines 500 Barbiturates 200 Benzodiazepine metabolites 200 Cocaine metabolites 150 Cannabinoids 50 Opiates 300 Pcp 25 Specimen was received without chain of custody. Results should be used for medical purposes only. 32 Because ethnic data is not always [...] 5 Kidney failure <15 (or dialysis) 33 [facility] Severe Sepsis and Septic Shock Management Bundle Measure requires all lactic acids initially measuring >2.0 mmol/L be repeated. 34 SEE RESULT BELOW Name: TARYN ALFARO : [address]: Danya Marquez MD Acct: [id number] Unit: [id number] AGE: 52 Location: [facility] Re05/15/18 SEX: F Status: REG REF SPEC: [id number] ANKUR: 05/15/18-[address] [facility] [address]: Danya Marquez MD REQ: [id number] RECD: 05/15/181250 STATUS: COMP _ SOURCE: STOOL SPDESC: ORDERED: Lacey kurtz PCR Procedure Result Reported Site Stool Specimen Description Final 05/15/18- 1306 ML Stool Color [place] Stool Form Semi-formed Stool Consistency Firm C. difficile PCR Final 05/15/18- 1306 ML Test not performed * ML - Main Lab . END OF REPORT DEPARTMENT OF PATHOLOGY, [address] [place] [address] Tay Gamboa M.D. Director [facility] # [id number] 35 [place]: [id number] 36 [place]: [id number] 37 Because ethnic data is not always [...] 5 Kidney failure <15 (or dialysis) 38 [facility] Severe Sepsis and Septic Shock Management Bundle Measure requires all lactic acids initially measuring >2.0 mmol/L be repeated. 39 Unable to calculate due to low microalbumin 40 Therapeutic concentration: <50 ug/mL Toxic concentration: >120 ug/mL 41 Because ethnic data is not always [...] 5 Kidney failure <15 (or dialysis) 42 Reference ranges based on room air. 43 [facility] Severe Sepsis and Septic Shock Management Bundle Measure requires all lactic acids initially measuring >2.0 mmol/L be repeated. 44 Presumptive Positive Presumptive positive results are unconfirmed. 45 The urine specimen was tested at the listed cutoffs: Drug class test level (ng/mL) Amphetamines 500 Barbiturates 200 Benzodiazepine metabolites 200 Cocaine metabolites 150 Cannabinoids 50 Opiates 300 Pcp 25 Specimen was received without chain of custody. Results should be used for medical purposes only. 46 Low risk: <1.00 Average risk: 1.00-3.00 High risk: >3.00 47 Because ethnic data is not always readily [...] 15-29 5 Kidney failure <15 (or dialysis) 48 [place]: [id number] 49 [place]: [id number] 50 Because ethnic data is not always [...] 5 Kidney failure <15 (or dialysis) 54 [place]: [id number] 55 [place]: [id number] 56 Reference ranges based on room air. 57 Because ethnic data is not always [...] 5 Kidney failure <15 (or dialysis) 58 Acute inflammation: >10.00 59 [place]: [id number] 60 [place] Severe Sepsis and Septic Shock Management [...] dialysis) 62 Critical Result [id number] Called to [id number] at: 21:48:40 by:[id number] Read back by:[id number] 63 Acute inflammation: >10.00 64 [place]: [id number] 65 SEE RESULT BELOW Name: TARYN ALFARO : [address]: Violeta Yusuf MD Acct: [id number] Unit: [id number] AGE: 52 Location: ED Re08/22/17 SEX: F Status: DEP ER SPEC: [id number] ANKUR: 08/22/[address]: Violeta Yusuf MD REQ: [id number] RECD: 08/22/17 STATUS: TASHA BARFIELD DR: Chapo Aguila MD _ SOURCE: URINE SPDESC: ORDERED: Urine Culture Procedure Result Reported Site Urine Culture Final 08/23/17- 1607 ML Mixed seema; possible contamination. Suggest resubmission. * ML - MAIN LAB ([facility]) . END OF REPORT * ML=Testing performed at Main Lab DEPARTMENT OF PATHOLOGY, [address] [place] [address] Tay Gamboa M.D. Director [facility] # [id number] 66 Reference ranges based on room air. 67 [place]: [id number] 68 The urine specimen was tested at the listed cutoffs: Drug class test level (ng/mL) Amphetamines 500 Barbiturates 200 Benzodiazepine metabolites 200 Cocaine metabolites 150 Cannabinoids 50 Opiates 300 Pcp 25 Specimen was received without chain of custody. Results should be used for medical purposes only. 69 [place]: [id number] 70 [place]: [id number] 71 Reference ranges based on room air. [...] dialysis) 73 Critical Result [id number] Called to [id number] at: 18:00:03 by:[id number] Read back by:[email or web address] 74 Therapeutic concentration: <50 ug/mL Toxic concentration: >120 ug/mL 75 ADDITIONAL INFORMATION This test was developed and its performance characteristics determined by [facility] in a manner consistent with CLIA requirements. This test has not been cleared or approved by the U.S. Food and Drug Administration. Test Performed by: [facility] [employer] - [address] [address] 76 [place]: [id number] 77 [place]: [id number] 78 The urine specimen was tested at the listed cutoffs: Drug class test level (ng/mL) Amphetamines 500 Barbiturates 200 Benzodiazepine metabolites 200 Cocaine metabolites 150 Cannabinoids 50 Opiates 300 Pcp 25 Specimen was received without chain of custody. Results should be used for medical purposes only. 79 Because ethnic data is not always readily [...] 15-29 5 Kidney failure <15 (or dialysis) 80 Therapeutic concentration: <50 ug/mL Toxic concentration: >120 ug/mL 81 ADDITIONAL INFORMATION This test was developed and its performance characteristics determined by [facility] in a manner consistent with CLIA requirements. This test has not been cleared or approved by the U.S. Food and Drug Administration. Test Performed by: [facility] [employer] - [address] [address] 82 [place]: [id number] 83 [place]: [id number] 84 [place]: [id number] 85 The urine specimen was tested at the listed cutoffs: Drug class test level (ng/mL) Amphetamines 500 Barbiturates 200 Benzodiazepine metabolites 200 Cocaine metabolites 150 Cannabinoids 50 Opiates 300 Pcp 25 Specimen was received without chain of custody. Results should be used for medical purposes only. 86 SEE RESULT BELOW Name: TARYN ALAFRO Cameron : [address]: Sendy Mcdowell MD Acct: [id number] Unit: [id number] AGE: 52 Location: ED Re08/03/17 SEX: F Status: REG ER SPEC: [id number] ANKUR: 08/03/[address] [facility] [address]: Sendy Mcdowell MD REQ: [id number] RECD: 08/03/17 STATUS: TASHA BARFIELD DR: Chapo Aguila MD _ SOURCE: URINE SPDESC: ORDERED: Urine Culture Procedure Result Reported Site Urine Culture Final 08/05/17- 1225 ML No growth of clinically significant organisms * ML - MAIN LAB ([facility]) . END OF REPORT * ML=Testing performed at Main Lab DEPARTMENT OF PATHOLOGY, [address] [place] [address] Tay Gamboa M.D. Director [facility] # [id number] 87 Because ethnic data is not always [...] 5 Kidney failure <15 (or dialysis) 90 [id number] 91 SEE RESULT BELOW Name: TARYN ALFARO : [address]: Any Ramirez MD Acct: [id number] Unit: [id number] AGE: 52 Location: [facility] Re08/01/17 SEX: F Status: DEP ER SPEC: [id number] ANKUR: 08/01/17-[address] [facility] [address]: Any Ramirez MD REQ: [id number] RECD: 08/02/17-1627 STATUS: TASHA BARFIELD DR: Chapo Aguila MD _ SOURCE: URINE SPDESC: ORDERED: Urine Culture COMMENTS: [id number] Procedure Result Reported Site Urine Culture Final 08/03/17- 1251 ML Mixed seema; possible contamination. Suggest resubmission. * ML - MAIN LAB ([facility]) . END OF REPORT * ML=Testing performed at Main Lab DEPARTMENT OF PATHOLOGY, [address] [place] [address] Tay Gamboa M.D. Director [facility] # [id number] 92 [place]: [id number] 93 [place]: [id number] 94 [place]: [id number] 95 [place]: [id number] 96 [place]: [id number] 97 [place]: [id number] Procedures Date Code Description Status 07/21/2018 06033 Inhalation TX For Acute Airway Obstruction Completed W/Nebulizer/Inhaler 11/03/2017 58543 EKG, Interpretation Only Completed 10/26/2017 [id number] Diabetic Retinal Eye Exam Completed 10/11/2017 11586 Inject/Drain Joint/Bursa Major W/O US Completed 06/03/2017 84250 Carpal Tunnel Release Completed 06/03/2017 95962 Carpal Tunnel Release Completed 05/01/2016 [id number] Mammogram Completed 04/06/2016 03484 EEG Recording Awake & Drowsy Completed 04/03/2016 95212 EKG, Interpretation Only Completed 04/29/2015 01026 EEG Recording Awake & Drowsy Completed 04/16/2012 60115 EKG, Interpretation Only Completed 04/16/2012 25024 EKG, Interpretation Only Completed Encounters Type Date Location Provider Dx Diagnosis Office Visit 09/06/2018 [facility] Rosa Schroeder MD I10 Essential ( primary) 2:20p Medicine - [address] E11.65 Type 2 diabetes mellitus with hyperglycemia R19.7 Diarrhea, unspecified M54.41 Lumbago with sciatica, right side F17.210 Nicotine dependence, cigarettes, uncomplicated R68.84 Jaw pain F60.3 Borderline personality disorder Office Visit 07/26/2018 [facility] Internal Lawrence Simental J40 Bronchitis, not 2:40p Jaylene Denson M.D.,FACP specified as acute [address] or chronic Office Visit 07/21/2018 [facility] Internal Rosa Schroeder MD J45.901 Unspecified asthma 11:40a Medicine - with (acute) [place] exacerbation X79.xxxA Intentional self-harm by blunt object, initial encounter I10 Essential (primary) hypertension M54.41 Lumbago with sciatica, right side F60.3 Borderline personality disorder T18.9xxA Foreign body of alimentary tract, part unsp, init encntr Office Visit 07/18/2018 11:00a [facility] Ayesha and Moreno Sandoval, Z79.4 member of parliament Endocrinology of [place] (current) use of insulin E11.65 Type 2 diabetes mellitus with hyperglycemia E03.9 Hypothyroidism, unspecified R15.2 Fecal urgency Office Visit 07/04/2018 1:00p [facility] Ayesha and Moreno Sandoval, Z79.4 intermediate [facility]ocrin[facility] of [place] (current) use of insulin E11.65 Type 2 diabetes mellitus with hyperglycemia E03.9 Hypothyroidism, unspecified R19.7 Diarrhea, unspecified T50.902D Poisoning by unsp drug/meds/biol subst, self-harm, subs Office Visit 07/03/2018 10:00a [facility] Jun Schroeder, E11.65 Type 2 diabetes Medicine - [...] synovitis and 1:15p Services Of Adelina Duarte tenosynovitisLaceyMJoel right hand M54.41 Lumbago with sciatica, right side Office Visit 05/22/2018 2:30p [facility] Internal Rosa Schroeder, R19.7 Diarrhea, Medicine - [place] MD unspecified Rd L08.1 Erythrasma R15.1 Fecal smearing Office Visit 05/15/2018 1:30p [facility] Internal Rosa Schroeder, R19.7 Diarrhea, Medicine - [place] MD unspecified Rd F17.210 Nicotine dependence, cigarettes, uncomplicated J45.909 Unspecified asthma, uncomplicated E11.65 Type 2 diabetes mellitus with hyperglycemia Z91.81 History of falling E11.9 Type 2 diabetes mellitus without complications Office Visit 05/08/2018 9:30a [facility] Internal Rosa Schroeder, E11.65 Type 2 diabetes Medicine - MD mellitus with [address] hyperglycemia R15.1 Fecal smearing I10 Essential (primary) hypertension R94.5 Abnormal results of liver function studies F33.3 Major depressv disorder, recurrent, severe w psych symptoms [facility] G92 Toxic encephalopathy 11:25a Assocmatthieu M.D. Hospitalists T50.904A Poisoning by unsp drug/meds/biol subst, undetermined, init F60.3 Borderline personality disorder R40.2432 Kriss coma scale score 3-8, EMR Office Visit 11/03/2017 11:23a Intens[facility]ists Ishmael Dumont G92 Toxic encephalopathy Cheng, D.O. F60.3 Borderline personality disorder T50.904A Poisoning by unsp drug/meds/biol subst, undetermined, init R40.2432 Windfall coma scale score 3-8, EMR Office Visit 11/02/2017 11:22a [facility] Ishmael Dumont R40.2432 Windfall coma Cheng D.O. scale score 3-8, EMR G92 Toxic encephalopathy T50.904A Poisoning by unsp drug/meds/biol subst, undetermined, init F60.3 Borderline personality disorder Office Visit 10/18/2017 Orthopedic Naveed Lutz M75.31 Calcific tendinitis 9:00a Services Of MD Venecia of right shoulder C.M.A. Office Visit 10/13/2017 [facility] Internal Chapo E11.65 Type 2 diabetes 1:40p Medicine - [place] Ayla, mellitus with Rd M.D. hyperglycemia Z12.31 Encntr screen mammogram for malignant neoplasm of breast Z12.11 Encounter for screening for malignant neoplasm of colon Office Visit 10/11/2017 Orthopedic Naveed Lutz M75.31 Calcific tendinitis 1:30p Services Of MD Venecia of right shoulder C.M.A. Office Visit 09/28/2017 [facility] Internal Chapo E11.65 Type 2 diabetes 1:20p Medicine - Ayla, mellitus with [place] M.D. hyperglycemia M79.645 Pain in left finger(s) E03.9 Hypothyroidism, unspecified Office Visit 09/19/2017 [facility] Internal Chap[place] E11.65 Type 2 diabetes 2:40p Medicine Elliott Aguila M.D. 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 mellitus without [address] complications M51.16 Intervertebral disc disorders w radiculopathy, lumbar region F31.31 Bipolar disorder, current episode depressed, mild E66.01 Morbid (severe) obesity due to excess calories Z68.41 Body mass index (BMI) 40.0-44.9, adult Office Visit 06/13/2017 3:20p [facility] Internal [place] E11.9 Type 2 diabetes Jaylene - Adelina Aguila mellitus without [address] complications E03.9 Hypothyroidism, unspecified K21.9 Gastro-esophageal reflux disease without esophagitis E78.2 Mixed hyperlipidemia E66.2 Morbid (severe) obesity with alveolar hypoventilation Z68.41 Body mass index (BMI) 40.0-44.9, adult F31.70 Bipolar disord, currently in remis, most recent episode unsp Z12.11 Encounter for screening for malignant neoplasm of colon F17.210 Nicotine dependence, cigarettes, uncomplicated B37.9 Candidiasis, unspecified Z79.4 member of parliament (current) use of insulin Office Visit 05/26/2017 Orthopedic Marline G56.02 Carpal tunnel 8:45a Services Of Hilda Duarte M.D. syndrome, left upper limb Office Visit 05/11/2017 Surgical Senia Lorne R10.9 Unspecified 10:45a [facility] abdominal pain Office Visit 06/14/2016 [facility] Rosi L02.91 Cutaneous 1:40p Assoc,pc Juanita, UTILITY REPAIRER abscess, Hospitalists unspecified E11.9 Type 2 diabetes mellitus without complications Z79.4 member of parliament (current) use of insulin Office Visit 06/13/2016 1:39p [facility] Alexus Elliott, L02.91 Cutaneous Assoc,pc N.P. abscess, Hospitalists unspecified E11.9 Type 2 diabetes mellitus without complications Z79.4 member of parliament (current) use of insulin Office Visit 05/21/2016 [facility] T39.1x2A Poisoning by 3:25p matthieu Lowe M.D. 4-Aminophenol Hospitalists derivatives, self-harm, init E11.9 Type 2 diabetes mellitus without complications F79 Unspecified intellectual disabilities [facility] Poisoning by 3:24p matthieu Lowe M.D. 4-Aminophenol Hospitalists derivatives, self-harm, init E11.9 Type 2 diabetes mellitus without complications F79 Unspecified intellectual disabilities Office Visit 05/19/2016 [facility] T39.1x2A Poisoning by 3:24p matthieu Lowe M.D. 4-Aminophenol Hospitalists derivatives, self-harm, init E11.9 Type 2 diabetes mellitus without complications F79 Unspecified intellectual disabilities Office Visit 05/18/2016 [facility] Sherita T39.1x2A Poisoning by 3:23p Assoc,matthieu Lui M.D. 4-Aminophenol Hospitalists derivatives, self-harm, init E11.9 Type 2 diabetes mellitus without complications F79 Unspecified intellectual disabilities Office Visit 05/17/2016 [facility] T39.1x2A Poisoning by 3:23p Assoc,matthieu Mosquera M.D. 4-Aminophenol Hospitalists derivatives, self-harm, init E11.9 Type 2 diabetes mellitus without complications F79 Unspecified intellectual disabilities Office Visit 05/16/2016 [facility] T39.1x2A Poisoning by 3:22p Assoc,matthieu Mosquera M.D. 4-Aminophenol Hospitalists derivatives, self-harm, init E11.9 Type 2 diabetes mellitus without complications F79 Unspecified intellectual disabilities Office Visit 05/15/2016 [facility] T39.1x2A Poisoning by 3:22p Assoc,matthieu Mosquera M.D. 4-Aminophenol Hospitalists derivatives, self-harm, init E11.9 Type 2 diabetes mellitus without complications F79 Unspecified intellectual disabilities Office Visit 05/14/2016 [facility] T39.1x2A Poisoning by 3:22p Assoc,matthieu Daly D.O. 4-Aminophenol Hospitalists derivatives, self-harm, init E11.9 Type 2 diabetes mellitus without complications F79 Unspecified intellectual disabilities Office Visit 05/13/2016 [facility] T39.1x2A Poisoning by 3:21p Assoc,Kamille HandO. 4-Aminophenol Hospitalists derivatives, self-harm, init E11.9 Type 2 diabetes mellitus without complications F79 Unspecified intellectual disabilities Office Visit 05/12/2016 [facility] T39.1x2A Poisoning by 3:21p Assoc,Kamille HandO. 4-Aminophenol Hospitalists derivatives, self-harm, init E11.9 Type 2 diabetes mellitus without complications F79 Unspecified intellectual disabilities Office 05/11/2016 [facility] T39.1x2A Poisoning by Visit 3:20p Assoc,pc RAÚL Snell 4-Aminophenol Hospitalists derivatives, self-harm, init E11.9 Type 2 diabetes mellitus without complications F79 Unspecified intellectual disabilities Office Visit 05/03/2016 [facility] Anu R73.9 Hyperglycemia, 11:09a Assoc,matthieu Diaz, DO unspecified Hospitalists J40 Bronchitis, not specified as acute or chronic G89.4 Chronic pain syndrome Office Visit 04/07/2016 3:52p [facility] Ml R40.4 Transient Assoc,matthieu Mosquera M.D. alteration of Hospitalists awareness E13.9 Other specified diabetes mellitus without complications F79 Unspecified intellectual disabilities Z91.19 Patient's noncompliance w oth medical treatment and regimen Office Visit 04/06/2016 3:52p [facility] Ml R40.4 Transient Assoc,matthieu Mosquera M.D. alteration of Hospitalists awareness E13.9 Other specified diabetes mellitus without complications F79 Unspecified intellectual disabilities Z91.19 Patient's noncompliance w oth medical treatment and regimen Office Visit 04/05/2016 3:51p [facility] Yara R40.4 Transient Assoc,pc Addy, D.O. alteration of Hospitalists awareness E13.9 Other specified diabetes mellitus without complications F79 Unspecified intellectual disabilities Z91.19 Patient's noncompliance w oth medical treatment and regimen Office Visit 04/04/2016 3:51p [facility] Yara R40.4 Transient Assoc,pc Addy, D.O. alteration of Hospitalists awareness E13.9 Other specified diabetes mellitus without complications F79 Unspecified intellectual disabilities Z91.19 Patient's noncompliance w oth medical treatment and regimen Office Visit 04/03/2016 3:50p [facility] Rosi R40.4 Transient Assoc,pc Juanita, LUZ alteration of Hospitalists awareness E13.9 Other specified diabetes mellitus without complications F79 Unspecified intellectual disabilities Z91.19 Patient's noncompliance w oth medical treatment and regimen Office Visit 10/01/2015 10:08a [facility] Gray M54.31 Sciatica, right Assoc,pc Fabien, N.P. side Hospitalists E11.9 Type 2 diabetes mellitus without complications F60.3 Borderline personality disorder Office Visit 09/28/2015 10:06a [facility] Ml M54.31 Sciatica, right Assoc,matthieu Mosquera M.D. side Hospitalists E11.9 Type 2 diabetes mellitus without complications Office Visit 04/24/2015 [facility] Conner 276.1 Hyposmolality & Or 1:31p Assoc,matthieu Powers M.D. Hyponatremia Hospitalists 296.7 Bipolar I Disorder Current NOS 301.83 Borderline Personality Disorder Office Visit 04/23/2015 [facility] Conner 276.1 Hyposmolality & Or 1:30p Assoc,matthieu Powers M.D. Hyponatremia Hospitalists 250.00 Diabetes Mellitus W/O Compl Type II Or Unspec Controlled 296.7 Bipolar I Disorder Current NOS 301.83 Borderline Personality Disorder Office Visit 04/22/2015 [facility] Quique 276.1 Hyposmolality & Or 1:29p Assoc,matthieu Aden M.D. Hyponatremia Hospitalists 250.00 Diabetes Mellitus W/O Compl Type II Or Unspec Controlled 301.83 Borderline Personality Disorder Office Visit 04/21/2015 [facility] Gray 276.1 Hyposmolality & Or 1:28p Assoc,matthieu Conn, N.PJarred Hyponatremia Hospitalists 296.7 Bipolar I Disorder Current NOS 301.83 Borderline Personality Disorder 250.00 Diabetes Mellitus W/O Compl Type II Or Unspec Controlled Office Visit 11/27/2014 [facility] Sheirta 244.9 Hypothyroidism 8:42a Assocmatthieu M.D. Other Unspec Hospitalists 250.02 Diabetes Mellitus W/O Compl Type II Or Unspec Type Uncontrol 301.83 Borderline Personality Disorder Office Visit 04/17/2012 [facility] Yara 969.09 Poisoning By Other 4:07p Assoc,matthieu Daly D.O. Antidepressants Hospitalists 300.9 Nonpsychotic Disorders NOS 311 Depressive Disorder Not Elsewhere Spec [facility] Poisoning By Other Visit 4:35p Assocmatthieu M.D. Antidepressants Hospitalists 300.9 Nonpsychotic Disorders NOS 311 Depressive Disorder Not Elsewhere Spec V11.1 History Personal Affective Disorder Office Visit 10/18/2009 1:00a [facility] Jase Jesus, 789.00 Pain Abdominal Assocmatthieu M.D. Unspec Site Hospitalists 787.03 Vomiting Alone 790.29 Other Abnormal Glucose 250.02 Diabetes Mellitus W/O Compl Type II Or Unspec Type Uncontrol Office Visit 10/17/2009 3:00a [facility] Jase Jesus, 790.29 Other Abnormal Assoc,matthieu Sahu Glucose Hospitalists 789.00 Pain Abdominal Unspec Site 295.70 Schizoaffective Disorder NOS 401.9 Hypertension Unspec Office Visit 10/16/2009 12:15a [facility] Sherita 790.29 Other Abnormal Assoc,matthieu Marshall M.D. Glucose Hospitalists 296.80 Bipolar Disorder NOS Plan of Treatment Future Appointment(s):09/25/2018 3:00 pm - Consuelo Corrales PA-C at [facility]10/17/2018 2:40 pm - Moreno Sandoval MD at [facility]10/02/2018 3:00 pm - Rosa Schroeder MD at [facility] Internal Medicine - [address]09/06/2018 - Rosa Schroeder MDI10 Essential (primary) hypertensionComments:Continue with your current medication.E11.65 Type 2 diabetes mellitus with hyperglycemiaComments:CONTINUE WITH NEW REGIMEN, FOLLOW UP WITH DR. SANDOVAL IN APPT WITH ME FROM SEPTEMBER TO NOVEMBERR19.7 Diarrhea, unspecifiedNew Medication:Creon 3080-2495 Unit - one po tid right before mealsComments:YOUR DIARRHEA IS CAUSED BY PANCREAS PROBLEMS, PLEASE TAKE THE CREON DAILY, RIGHT BEFORE PJWNPK13.41 Lumbago with sciatica, right sideComments: PLEASE SCHEDULE APPT FOR PATIENT WITH DR. DALTON- REFERRAL IS IN FROM LATE LAST YEARReferral:No Doctor RjfqgovdJ76.210 Nicotine dependence, cigarettes, uncomplicatedNew Medication:Nicoderm CQ 21 mg/24HR - apply one to skin every dayR68.84 Jaw painComments:PLEASE SCHEDULE PATIENT FOR DENTAL VISIT ASAPF60.3 Borderline personality disorderComments:continue therapy and visits with Dr. Villar.
[2018-10-08 16:02] VITALS: BP 133/86
--- NOTE | 2018-10-08 16:29 | UC ---
Throat Pain/Nasal John HPI - HPI Summary HPI Summary: Patient presents to urgent care reporting she's concerned she has an upper respiratory infection. Patient states she's been coughing for 2 or 3 days. Patient states little bit a yellow mucus. No fevers or chills. No nausea vomiting. Patient used to have albuterol but doesn't have any anymore. Patient does take Flonase days late. Patient also has Mucinex but hasn't tried it. Patient states she just finished an antibiotic for dental infection yesterday. No fevers or chills per patient is working on quitting smoking but still smokes several cigarettes per week. Pt's medications reviewed this visit - History of Current Complaint Chief Complaint: UCRespiratory Stated Complaint: URI Hx Obtained From: Patient Hx Last Menstrual Period: "last month" Pain Intensity: 5 - Allergies/Home Medications Allergies/Adverse Reactions: Allergies Allergy/AdvReac Type Severity Reaction Status Date / Time ciprofloxacin Allergy Dizziness Verified 10/08/18 16:02 latex Allergy Rash Verified 10/08/18 16:02 lithium Allergy See Comment Verified 10/08/18 16:02 lurasidone [From Latuda] Allergy Altered Verified 10/08/18 16:02 Mental Status nalbuphine Allergy Unknown Verified 10/08/18 16:02 Reaction Details naldemedine Allergy Unknown Verified 10/08/18 16:02 Reaction Details Penicillins Allergy Rash Verified 10/08/18 16:02 perphenazine Allergy Unknown Verified 10/08/18 16:02 Reaction Details Sulfa (Sulfonamide Allergy Hives Verified 10/08/18 16:02 Antibiotics) tramadol Allergy Altered Verified 10/08/18 16:02 Mental Status ENVIRONMENTAL Allergy Mild SINUS Uncoded 09/27/18 10:58 PMH/Surg Hx/FS Hx/Imm Hx Previously Healthy: No Endocrine History: Dyslipidemia Cardiovascular History: Hypertension Respiratory History: COPD Psychological History: Anxiety Other History Of: Negative For: Anticoagulant Therapy - Surgical History Surgical History: Yes Surgery Procedure, Year, and Place: 2011-CATARACT EXTRACTION. GALLBLADDER REMOVED - Family History Known Family History: Positive: Other - Anxiety and depression, [place] - father Negative: Cardiac Disease, Hypertension, Diabetes Family History: Depression and anxiety - Social History Alcohol Use: None Substance Use Type: None Smoking Status (MU): Current Every Day Smoker Type: Cigarettes Amount Used/How Often: 1/2 PPD FOR LAST 30 DAYS, NO OTHER TOBACCO Length of Time of Smoking/Using Tobacco: 2 year ago Have You Smoked in the Last Year: Yes - Patient has smoked within the last 30 days When Did the Patient Quit Smoking/Using Tobacco: ATTEMPTING TO QUIT Household Exposure Type: Cigarettes - Immunization History Most Recent Influenza Vaccination: Within the past month or two at [facility] Most Recent Tetanus Shot: Unsure Most Recent Pneumonia Vaccination: 05/20/2017 Review of Systems All Other Systems Reviewed And Are Negative: Yes Constitutional: Positive: Fatigue Skin: Positive: Negative ENT: Positive: Ear Ache - left, Nasal Discharge, Sinus Congestion Respiratory: Positive: Cough Physical Exam - Summary Physical Exam Summary: Vital Signs Reviewed: Yes A+Ox3, no distress Eyes: Conjunctiva Clear, JENNIFER. EOM intact and full ENT: Hearing grossly normal mild erythema left ear, turbinates inflammed turbinates, + PND mild, mmoist, uvula midline, no exudate, no erythema Neck: Positive: Supple Respiratory: Positive: No respiratory distress, No accessory muscle use + CTA throughout, mild end exp wheeze, intermittent cough Cardiovascular: RRR nl s1, s2 no m/r CBT <2 sec abd soft + BS nt/nd no guarding, no distension Musculoskeletal Exam: CHIN x 4 without difficulty Strength Intact, ROM Intact Neurological: Positive: Alert, + sensation throughout Psychological: Positive: Normal Response To Family Skin: Positive: no rash, no ecchymosis Triage Information Reviewed: Yes Vital Signs: Initial Vital Signs Temp 98.7 F 10/08/18 15:57 Pulse 99 10/08/18 15:57 Resp 16 10/08/18 15:57 BP 133/86 10/08/18 15:57 Pulse Ox 98 10/08/18 15:57 Re-Evaluation - Re-Evaluation First Eval Change: Improved Comment: Patient reports feeling better following the neb. Chest x-ray reviewed negative. We'll discharge with MDI. Continue with Flonase and Mucinex. No antibiotics. Follow primary. Lungs do paperwork completed and given back to patient. Throat Pain/Nasal Course/Dx - Course Course Of Treatment: Patient presents to urgent care with progressive congestion congestion and cough with yellow sputum. Patient's concerned she might have a lung infection. Patient states she does have some wheezing with coughing. No fevers or chills. No nausea vomiting. Patient does smoke cigarettes but is decreasing use. Patient states she completed antibiotics yesterday for dental infection. Patient used to have an MDI monogamous. Patient is using Flonase and Mucinex. On exam vital signs are stable. Patient does have a slight intermittent cough with end expiratory wheeze. We'll do chest x-ray give DuoNeb and reassessed. - Differential Dx/Diagnosis Provider Diagnosis: Upper respiratory infection Discharge - Sign-Out/Discharge Documenting (check all that apply): Patient Departure All imaging exams completed and their final reports reviewed: Yes - Discharge Plan Condition: Stable Disposition: HOME Patient Education Materials: Upper Respiratory Infection (ED) Referrals: Rosa Schroeder MD [Primary Care Provider] - Additional Instructions: -- use your inhaler - 2 puffs every 4 hours for the next 2 days, then every 4 hours as needed -okay to take mucinex for your congestion - continue to use flonase - continue to decrease cigarette smoke - SChedule a follow-up appointment with your primary care provider - Billing Disposition and Condition Condition: STABLE Disposition: Home
[2018-10-08] MEDS ORDERED: Albuterol 2.5 MG/3 ML NEB.SOL* (0.083%) INH ONE (16:41)
[2018-10-08] MEDS ORDERED: Albuterol HFA INHALER* 8 gm MDI INH ONE (17:15)
== END 2018-10-08 17:30 | disposition home or self-care (01) ==
LOC: UCEAST 15:12
DX: J06.9 Acute upper respiratory infection, unspecified (principal); F17.210 Nicotine dependence, cigarettes, uncomplicated; I10 Essential (primary) hypertension; J44.9 Chronic obstructive pulmonary disease, unspecified; Z88.0 Allergy status to penicillin; Z91.09 Other allergy status, other than to drugs and biological substances; Z88.8 Allergy status to other drugs, medicaments and biological substances; Z88.1 Allergy status to other antibiotic agents; Z91.040 Latex allergy status; Z88.2 Allergy status to sulfonamides; Z88.5 Allergy status to narcotic agent
CPT/HCPCS: 71046; 99213; A9270-GY; G0463

== ENCOUNTER 2018-10-17 20:12 | Emergency (ER) | payer MEDICARE, MEDICAID ==
--- OUTSIDE RECORDS SUMMARY | 2018-10-17 20:43 | XMS REPORT | Continuity of Care Document ---
:1965 External Reference #:[id number] Author Name Claire Mayer Care Team Providers Name Role Phone Rosa Schroeder M.D. Primary Care Physician Unavailable Payers Date Identification Numbers Payment Provider Subscriber Effective: 1991 Policy Number: [id number] Medicare Cecilio Alfaro PayID: [id number] [address] [place] [address] Policy Number: [id number] Medicaid Cecilio Alfaro Group Name: 1 [address] PayID: [id number] [place] [address] Advance Directives Description No Information Available Problems [...] severe mental illness Lives With Assisted living [place] since March 2018. Was at [facility] from October-Apr 2018 Occupation Unemployed Occupation Disabled Tobacco Use Start: Unknown Patient was a states she is cigarette smoker, quitting current status is unknown ETOH Use 07/26/2018 Denies alcohol use Recreational Drug Use Former Drug User Tobacco Use Start: Unknown Patient is a former End: Unknown smoker Smoking Status Reviewed: 10/02/18 Patient is a former smoker Exercise Type/Frequency Exercises rarely Allergies, Adverse Reactions, Alerts Date Description Reaction Status Severity Comments 05/10/2017 Latex Urticaria Active 05/10/2017 Sulfa Antibiotics hives Active 05/10/2017 Penicillins Urticaria Active 05/10/2017 Nalbuphine Active 05/10/2017 Perphenazine Active 05/10/2017 Ciprofloxacin dizziness Active 05/10/2017 Tramadol altered mental status Active 05/10/2017 [place] Active 05/08/2018 Lurasidone Active Moderate 05/22/2018 Metformin Diarrhea Active Medications Medication Date Status Form Strength Qnty SIG Indications Ordering Provider Gabapentin 10/02/ Active Capsules 400mg 2 capsules Other 2019 at hs Ordering Provider Fluconazole 10/02/ Active Tablets 150mg 2tabs 1 tab by B37.3 2018 mouth x 1, Schroeder, may repeat MD after 2 days if not better Anbesol Maximum 09/21/ Active Gel 20% 27gm apply to 2018 gingiva Schroeder, 3x/day as MD needed for pain Nicoderm CQ 09/06/ Active Patches 21mg/24HR 28uni apply one F17.210 2018 24HR ts to skin Alexandre, every day MD Thomason 09/06/ Active Caps DR [id number] 90cap one po tid R19.7 2018 Part Unit s right Alexandre, before meals Onetouch Delica 09/04/ Active Misc 100un test 2 - 3 E11.9 Lawrence Mar Extra 2019 its times a day Katelyn Ospina 33G M.D.,FACP Arnuity Ellipta 07/26/ Active Aerosol 100mcg/Ac 30uni 1 puff 2017 t ts inhaled Schroeder, every day Levothyroxine 07/17/ Active Tablets 175mcg 30tab take 175mcg E03.9 Mayer Sodium 2018 s daily on an MD Lori empty stomach Depend 07/03/ Active Misc 120un use four Adjustable 2017 its times a day Schroeder, Underwear L/XL Flonase Allergy 06/23/ Active Suspension 50mcg/Act 9.900 2 sprays in Relief 2017 ml each Schroeder, nostril twice a day Fiasp Flextouch 05/19/ Active Solution 100Unit/M 45ml 22 units E11.65 2017 Pen-Inject L per meal 3 Schroeder, times daily Basaglagustina 05/19/ Active Solution 100Unit/M 6ml 66 units Robyn Kwikpen 2017 Pen-Inject L once daily MD Cesar Nicotrol 05/18/ Active Inhaler 10mg 168un 1 Lawrence 2018 its cartridges D. Donaldson, every 2 M.D.,FACP hours as needed Nystatin 05/15/ Active Powder [id number] 90gm apply twice 2017 t/GM daily until [...] Alexandre Trazodone HCL Active Tablets 100m 90tabs 2 tab at Rosa g bedtime MD Alexandre Onetouch Ultra Mini Active Kit w/De 1units check bs up E11.65 Lawrence rodgers to josey Denson, times daily M.D.,FACP Atorvastatin Active Tablets 20mg 90tabs take 1 [...] 5% 60units 1 apply to Rosa affected [facility], area 12 MD hours on, 12 hours off Acetaminophen Active Tablets 325m 2 tablets by Unknown g mouth every 4 hours as needed for pain/fever Maalox Max Active Suspensi 400- 30 Unknown on 400- milliliters 40mg by mouth /5ML q4hr as needed indigestion Cetirizine HCL Active Tablets 10mg 1 by mouth Unknown every day Guaifenesin Active Tablets 200m take 3 tabs Unknown g PO bid prn congestion Ibu Active Tablets 600m 90tabs take one Rosa g tablet by Schroeder, mouth t.i.d prn pain Asmanex Twisthaler Active Aerosol 220m 2 puff Unknown 120 Metered Doses cg/I q.a.m. nh Miralax Active Powder 17 grams by Unknown mouth every day as needed Hydroxyzine HCL Active Tablets 25mg 1 tablets by Unknown mouth tid as needed for anxiety Ondansetron Active Tablets 4mg dissolve one Unknown Dispers tablet orally every 8 hours as needed for nausea. Nicotine Gum 2 MG Active 1piece q 2 Unknown hours prn Percocet Active Tablets 5-32 1 - 2 tabs Unknown 5mg by mouth every 4 - 6 hours as needed for pain. Clindamycin HCL 09/26/2018 Hx Capsules 300m 21caps 1 by mouth Other - g three times Ordering 10/05/2018 a day for 10 Provider days Gabapentin 09/06/2018 Hx Capsules 100m 60caps 2 tabs at Other - g bedtime Ordering 10/02/2018 Provider Azithromycin 07/26/2018 Hx Tablets 250m 6tabs 2 every day Lawrence - g for 1 day, Kamille Denson, 07/31/2018 then 1 every Adelina,FAC day Methylprednisolone 06/29/2018 Hx TBPK 4mg 21units take as Miguel - instructed Jonah, 07/21/2018 per samuel LAWSON dose pack instructions Naproxen 06/29/2018 Hx Tablets 500m 14tabs take 1 Lawrence - g tablet twice Kamille Denson, 10/02/2018 daily with [facility]n Mucinex DM 06/23/2018 Hx Tablets 30-6 14tabs one po bid Rosa - ER 12HR 00mg Schroeder, 07/03/2018 Ibuprofen 05/29/2018 Hx Tablets 600m 30tabs 1 [...] Rosa - ER 24HR g tablet by Alexandre, 05/22/2018 mouth once a MD day with dinner Januvia 05/08/2018 Hx Tablets 50mg 90tabs one by mouth E11.65 Rosa - daily Schroeder, 07/18/2018 MD Depend Adjustable 05/08/2018 Hx Misc 120units use four R15.1 Rosa Underwear L/XL - times a day Schroeder, 07/03/2018 MD Exercise 05/08/2018 Hx Pt allowed E11.65 Rosa - to engage in Alexandre, 07/03/2018 exercise at [place] facilities under direct supervision of staff Tresiba Flextouch 10/13/2017 Hx Solution 100U 15ml 100 units at E11.65 [place] - Pen-Inje nit/ bedtime Pachikara 05/08/2018 ct ML Adelina Losartan Potassium 10/13/2017 Hx Tablets 25mg 30tabs 1 by mouth E11.65 [place] - once a day Pachikara 05/08/2018 Adelina Hydrocodone-Acetami 10/10/2017 Hx Tablets 5-32 20tabs 1 tab every [place] nophen - 5mg 12h as Pachikara 05/08/2018 needed , Adelina Tresiba Flextouch 09/19/2017 Hx Solution 100U 15ml 60 units at E11.65 [place] - Pen-Inje nit/ bedtime Pachikara 10/13/2017 ct ML , Adelina Onetouch Ultrasoft 08/31/2017 Hx Misc 100units test blood E11.9 Alyson Mar - 2-3 a day or Kamille Denson, 09/04/2018 as needed Adelina,FACP Onetouch Ultra Mini 08/31/2017 Hx Lancets 100units check bs [place] - twice daily Pachikara 05/08/2018 Adelina Onetouch Ultra Mini 08/31/2017 Hx Strips 100units test up to E11.9 Lawrence - three times Kamille Denson, 09/09/2017 daily last Adelina,CESAR visit: 8 Mucinex 08/28/2017 Hx Tablets 600m 20tabs 1 po bid prn Lawrence CHEUNG 12HR g Kamille Denson, 05/08/2018 Adelina,FACP Doxycycline 08/28/2017 Hx Capsules 100m 13caps 1 by mouth Unknown Monohydrate - g twice a day 09/04/2017 x 7 days Tresiba Flextouch 08/26/2017 Hx Solution 200U 18ml 30u SC in Am Alyson Luis nit/ and 70u SC Kamille Denson, 09/19/2017 ct ML in PM M.Kamille,FACP Azithromycin 08/26/2017 Hx Tablets 250m 2 tabs by Unknown - g mouth on day 08/31/2017 1; 1 tab by mouth every day on days 2-5 Tramadol HCL 08/26/2017 Hx Tablets 50mg 30tabs 1 tab by Lawrence gong three Kamille Denson, 09/28/2017 times a day Adelina,FACP Fluconazole 08/22/2017 Hx Tablets 150m 2tabs one by mouth Lawrence song may repeat Kamille Denson, 05/08/2018 in 3 days as CESAR Sahu needed Lancets 28G 08/08/2017 Hx Misc 28G 100units use with one [facility]2017 check bs Adelina daily Onetouch 08/08/2017 Hx Strips 100units test twice [place] - daily and as Pachikara 08/31/2017 needed , Adelina Janumet 07/15/2017 Hx Tablets 50-5 60tabs 1 by mouth E11.9 [place] - 00mg twice a day Gerryika 05/08/2018 Adelina Glucocom Blood 07/03/2017 Hx Kit W/De 1units one touch Erik Glucose Monitoring - [facility] glucometer Kavita, System 08/31/2017 to measure M.D. 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 daily Lamotrigine Hx Tablets 150m take 1 Unknown - g tablet by 05/08/2018 mouth twice a day Sertraline HCL Hx Tablets 100m Take 1+1/2 Unknown - g Tablets By 05/08/2018 Mouth Once Daily Novolog Flexpen Hx Solution 100U Inject 15 Unknown - Unknown Pen-Inje nit/ Units Subq ct ML Three Times A Day With Meals Cyclobenzaprine HCL Hx Tablets 10mg as needed Unknown - 09/28/2017 Latuda Hx Tablets 80mg daily Unknown - 05/08/2018 Levothyroxine Hx Tablets 50mc 90tabs 1 tab daily [place] Sodium - [facility] stomach , M.D. Levothyroxine Hx Tablets 200m 90tabs 1 tab daily [place] Sodium - cg am in the [facility] 05/08/2018 empty , M.D. stomach Naproxen Hx Tablets 500m 60tabs twice daily [place] - g [facility] 07/15/2017 , M.D. Lantus Solostar Hx Solution 100U 15ml 30 units SC Lawrence Luis nit/ in Am, and Kamille Denson, 08/26/2017 ct ML 70 units SC M.D.,FACP a hs Atorvastatin Hx Tablets 40mg 90tabs take one [place] Calcium - tablet by [facility] 05/08/2018 mouth every , M.D. day Pictonix Hx 40 mg daily Unknown - Unknown Novalog Hx 10 units Unknown - before meals 05/08/2018 Levothyroxine Hx Tablets 150m 90tabs 1 by mouth E03.9 Rosa Sodium - cg every day Schroeder, 07/17/2018 MD Rain Restrepo Hx Solution 100U 9ml 4-10 Units E11.65 Rosa - Pen-Inje nit/ SQ three Schroeder, 05/19/2018 ct ML times a day, at mealtime, per sliding scale instructions Metformin HCL Hx Tablets 500m 1 by mouth Unknown - g twice a day 05/08/2018 Naproxen Hx Tablets 375m 180tabs twice a day Rosa - g with food Schroeder, 07/03/2018 Gabapentin Hx Capsules 400m 270caps take one Rosa - g capsule by Schroeder, 09/06/2018 mouth 3 MD times a day Lantus Solostar Hx Solution 100U 45ml 40 units Rosa - Pen-Inje nit/ twice daily Schroeder, 05/22/2018 ct ML MD Lantus Hx Solution 100U 66 units Unknown - nit/ subcutaneous 09/05/2018 ML q.a.m. Medications Administered in Office Medication Date Status Form Strength Qnty SIG Indications [facility] Injection Naveed F 40MG 018 MD Venecia Immunizations CPT Code Status Date Vaccine Lot # [id number] Given 05/01/2018 Influenza Virus Vaccine, Quadrivalent, Split, Preservative Free Vital Signs Date Vital Result Comment 10/02/2018 2:58pm Height 67 inches 5'7" Weight 262.50 lb Heart Rate 86 /min BP Systolic 144 mmHg BP Diastolic 87 mmHg Body Temperature 98.4 F O2 % BldC Oximetry 96 % BMI (Body Mass Index) 41.1 kg/m2 09/25/2018 3:24pm Height 67 inches 5'7" Weight [...] Result H/L Range Note Laboratory test 08/22/2018 [facility] Acetaminophen < 15 g/mL 1 finding [address] [place] [address] [phone] Alcohol < 10 mg/dL N <10 Salicylate < 2.50 mg/dL <30 TSH (Thyroid Stim Horm) 8.26 mcIU/mL High 0.34-5.60 Comp Metabolic Panel 08/22/2018 [facility] Sodium 139 mmol/L N 135-145 [address] [place] [address] [phone] Potassium 4.7 mmol/L N 3.5-5.0 Chloride 104 [...] 73.8 >60 2 CBC Auto Diff 08/22/2018 [facility] White Blood 10.7 10^3/uL N 3.5-10.[address] [place] [address] [phone] Red Blood Count 4.66 10^6/uL N 4.00-5.40 [...] Blood Cells % 0 Laboratory test 08/22/2018 [facility] Point of 202 mg/dL High 70-100 [address] [place] [address] [phone] Laboratory test 08/22/2018 [facility] Point of 321 mg/dL High 70-100 [address] [place] [address] [phone] CBC Auto Diff 08/19/2018 [facility] White Blood 9.3 N 3.5- 10.[address] Count 10^3/[place] [address] [phone] Red Blood Count 4.42 10^6/uL N 4.00-5.40 [...] Cells % 0.1 Comp Metabolic Panel 08/19/2018 [facility] Sodium 139 mmol/L N 135-145 [address] [place] [address] [phone] Chloride 108 mmol/L N 101-111 Co2 Carbon [...] 47 U/L High 13-39 Laboratory test 08/19/2018 [facility] HCG 2.61 mIU/mL [address] [place] [address] [phone] Acetaminophen < 15 g/mL 7 Alcohol < 10 mg/dL N <10 Salicylate < 2.50 mg/dL <30 TSH (Thyroid Stim Horm) 7.94 mcIU/mL High 0.34-5.60 Laboratory 08/17/2018 [facility] Point of Care 145 mg/dL High 70-100 8 test finding [address] [place] [address] [phone] Laboratory 08/15/2018 [facility] Miscellaneous See 9, 10 test finding [address] [place] [address] [phone] Comp 07/31/2018 [facility] Sodium 136 mmol/L N 135-145 [address] [place] [address] [phone] Potassium 4.9 mmol/L N 3.5-5.0 Chloride 104 [...] Egfr 93.8 >60 12 Lipid Profile 07/31/2018 [facility] Triglycerides 113 mg/dL 13 (Trig/Chol/HDL) [address] [place] [address] [phone] Cholesterol 94 mg/dL 14 HDL Cholesterol 34.8 mg/dL 15 LDL Cholesterol 37 mg/dL 16 Laboratory test finding 07/31/2018 [facility] GGTP 50 U/L N 9- 64.[address] [place] [address] [phone] Hemoglobin A1c (Glyco HGB) 8.3 % High 4.0-5.6 18 Laboratory test 07/20/2018 [facility] Point of Care 78 mg/dL N 70-100 [address] [place] [address] [phone] CBC Auto Diff 07/20/2018 [facility] White Blood 8.8 10^3/uL N 3.5-10.[address] [place] [address] [phone] Red Blood Count 4.30 10^6/uL N 4.00-5.40 [...] Cells % 0 Basic Metabolic Panel 07/20/2018 [facility] Sodium 140 mmol/L N 135-145 [address] [place] [address] [phone] Potassium 4.0 mmol/L N 3.5-5.0 Chloride 108 mmol/L N 101-111 Co2 Carbon Dioxide 26 mmol/L N 22-32 Anion Gap 6 mmol/L N 2-11 Glucose 82 mg/dL N 70-100 Blood Urea Nitrogen 13 mg/dL N 6-24 Creatinine 0.71 mg/dL N 0.51-0.95 BUN/Creatinine Ratio 18.3 N 8-20 Calcium 9.3 mg/dL N 8.6-10.3 Egfr Non- 86.4 >60 Egfr 104.6 >60 20 CBC Auto 07/10/2018 [facility] White Blood 14.1 10^3/uL High 3.5-10.[address] [place] [address] [phone] Red Blood Count 4.77 10^6/uL N 4.00-5.40 [...] Blood Cells % 0 Urinalysis Profile 07/10/2018 [facility] Urine Color Yellow [address] [place] [address] [phone] Urine Appearance Cloudy Urine Specific [place] 1.017 N 1.010-1.030 Urine pH 5.0 N [...] Present Abnormal Absent Comp Metabolic Panel 07/10/2018 [facility] Sodium 136 mmol/L N 135-145 [address] [place] [address] [phone] Potassium 4.6 mmol/L N 3.5-5.0 Chloride 102 [...] Egfr 65.9 >60 21 Laboratory test 07/10/2018 [facility] Acetaminophen < 15 g/mL [address] [place] [address] [phone] Alcohol < 10 mg/dL N <10 Salicylate < 2.50 mg/dL <30 TSH (Thyroid Stim Horm) 9.45 mcIU/mL High 0.34-5.60 Urine Drug 07/10/2018 [facility] Amphetamine Ur None Detected None Detect SCR ED & [address] [place] [address] [phone] Barbiturates Urine Screen None Detected None Detect Benzodiazepine Urine Screen None Detected None Detect Urine Cannabinoids Screen None Detected None Detect Urine Cocaine Screen None Detected None Detect Urine Opiates Screen None Detected None Detect Urine Phencyclidine Screen None Detected None Detect 23 Urine Culture 07/10/2018 [facility] Urine Culture SEE RESULT [address] [place] [address] [phone] Laboratory test 06/26/2018 [facility] Point of Care 143 mg/dL High 70-100 [address] [place] [address] [phone] Laboratory test 06/26/2018 [facility] Point of Care 72 mg/dL N 70-100 [address] [place] [address] [phone] Laboratory test 06/26/2018 [facility] Point of Care 98 mg/dL N 70-100 [address] [place] [address] [phone] Urine Drug SCR 06/26/2018 [facility] Amphetamine Ur None None ED [facility] [address] [place] [address] [phone] Barbiturates Urine Screen None Detected None Detect Benzodiazepine Urine Screen None Detected None Detect Urine Cannabinoids Screen None Detected None Detect Urine Cocaine Screen None Detected None Detect Urine Opiates Screen None Detected None Detect Urine Phencyclidine Screen None Detected None Detect 28 CBC Auto 06/26/2018 [facility] White Blood 10.9 10^3/uL High 3.5-10.[address] [place] [address] [phone] Red Blood Count 4.42 10^6/uL N 4.00-5.40 [...] Cells % 0 Comp Metabolic Panel 06/26/2018 [facility] Sodium 137 mmol/L N 135-[address] [place] [address] [phone] Potassium 4.3 mmol/L N 3.5-5.0 Chloride 105 [...] Egfr 95.6 >60 29 Urinalysis Profile 06/26/2018 [facility] Urine Color Straw [address] [place] [address] [phone] Urine Appearance Clear Urine Specific [place] 1.005 Low 1.010-1.030 Urine pH 6.0 N 5-9 Urine Urobilinogen Negative Negative Urine Ketones Negative Negative Urine Protein Negative Negative Urine Leukocytes Negative Negative Urine Blood Negative Negative Urine Nitrite Negative Negative Urine Bilirubin Negative Negative Urine Glucose Negative Negative Laboratory test 06/26/2018 [facility] Acetaminophen < 15 g/mL 30 finding [address] [place] [address] [phone] Alcohol < 10 mg/dL N <10 Salicylate < 2.50 mg/dL <30 Lactic Acid 0.9 mmol/L N 0.5-2.0 31 CBC Auto Diff 05/18/2018 [facility] White Blood 10.8 10^3/uL N 3.5-10.[address] [place] [address] [phone] Red Blood Count 4.33 10^6/uL N 4.00-5.40 [...] Cells % 0.1 Comp Metabolic Panel 05/18/2018 [facility] Sodium 139 mmol/L N 135-[address] [place] [address] [phone] Potassium 4.5 mmol/L N 3.5-5.0 Chloride 107 [...] Egfr 98.6 >60 32 Laboratory test 05/18/2018 [facility] Lipase < 10 U/L Low 11.0 -82.[address] [place] [address] [phone] Lactic Acid 1.1 mmol/L N 0.5-2.0 33 Laboratory test 05/15/2018 [facility] C Difficile PCR SEE RESULT [address] [place] [address] [phone] Laboratory test 05/11/2018 [facility] Glucose 342 mg/dL High 70-[address] Confirmatory 00 [place] [address] [phone] Laboratory test 05/11/2018 [facility] Point of Care 402 mg/dL High 70-1 [address] Glucose 00 [place] [address] [phone] Laboratory test 05/11/2018 [facility] Point of Care 426 mg/dL High 70-1 [address] Glucose 00 [place] [address] [phone] CBC Auto Diff 05/10/2018 [facility] White Blood Count 12.0 High 3.5- [address] 10^3/uL 10.8 [place] [address] [phone] Red Blood Count 4.39 10^6/uL N 4.00-5.40 [...] Cells % 0.1 Comp Metabolic Panel 05/10/2018 [facility] Sodium 141 mmol/L N 135-[address] [place] [address] [phone] Potassium 4.9 mmol/L N 3.5-5.0 Chloride 107 [...] Egfr 90.2 >60 37 Laboratory test 05/10/2018 [facility] Lipase < 10 U/L Low 11.0 -82.[address] [place] [address] [phone] C Reactive Protein 6.43 mg/L N <8.01 Lactic Acid 1.2 mmol/L N 0.5-2.0 38 Urine Microalbumin 05/08/2018 [facility] Ur Microalbumin < 15.[address] (mg/L) [place] [address] [phone] Urine Creatinine 224.47 mg/dL Urine Microalbumin/Creatinine TNP <31 39 Laboratory test 05/08/2018 [facility] Hemoglobin A1c 9.7 High 5-7 finding Urinalysis Profile 11/02/2017 [facility] Urine Color Yellow [address] [place] [address] [phone] Urine Appearance Clear Urine Specific [place] 1.018 N 1.010-1.030 Urine pH 5.0 N 5-9 Urine Urobilinogen Negative Negative Urine Ketones Negative Negative Urine Protein Negative Negative Urine Leukocytes Negative Negative Urine Blood Negative Negative Urine Nitrite Negative Negative Urine Bilirubin Negative Negative Urine Glucose 1+(50 mg/dL) Abnormal Negative Laboratory test 11/02/2017 [facility] Magnesium 1.9 mg/dL N 1.9-2.7 finding [address] [place] [address] [phone] Creatine Kinase(CK) 72 U/L N 10-223 Troponin-I (TnI) 0.03 ng/mL <0.04 Acetaminophen < 15 g/mL 40 Alcohol < 10 mg/dL N <10 Salicylate < 2.50 mg/dL <30 TSH (Thyroid Stim Horm) 1.79 mcIU/mL N 0.34-5.60 Urine Drug 11/02/2017 [facility] Amphetamine Ur None Detected None Detect SCR ED & [address] [facility] [place] [address] [phone] Barbiturates Urine Screen None Detected None Detect Benzodiazepine Urine Screen None Detected None Detect Urine Cannabinoids Screen None Detected None Detect Urine Cocaine Screen None Detected None Detect Urine Opiates Screen Presumptive Posi <SEE NOTE> Abnormal None Detect 41 Urine Phencyclidine Screen None Detected None Detect 42 Arterial Blood Gas 11/02/2017 [facility] PH Arterial 7.36 N 7.35-7.[address] [place] [address] [phone] Pco2 Arterial 50 mmHg High 35-45 Po2 Arterial 65 mmHg Low 80-100 O2 Saturation Arterial 91.1 % Low 95-98 Base Excess Arterial 2.1 High -2.0-2.0 43 Hco3 Arterial 26.4 mmol/L N 19-31 Laboratory test finding 11/02/2017 [facility] Ammonia 37 ?mol/L N 16-[address] [place] [address] [phone] Lactic Acid 1.0 mmol/L N 0.5-2.0 44 Comp Metabolic 11/02/2017 [facility] Potassium 4.4 mmol/L N 3.5-5.0 Panel [address] [place] [address] [phone] Chloride 107 mmol/L N 101-111 Co2 Carbon [...] mmol/L N 2-11 CBC Auto Diff 11/02/2017 [facility] White Blood 8.5 10^3/uL N 3.5-10.[address] [place] [address] [phone] Red Blood Count 4.40 10^6/uL N 4.0-5.4 [...] Cells % 0 CBC Auto Diff 10/02/2017 [facility] White Blood 10.3 10^3/uL N 3.5-10.[address] [place] [address] [phone] Red Blood Count 4.29 10^6/uL N 4.0-5.4 [...] Cells % 0 Comp Metabolic Panel 10/02/2017 [facility] Sodium 136 mmol/L N 133-145 [address] [place] [address] [phone] Potassium 4.5 mmol/L N 3.5-5.0 Chloride 103 [...] Egfr 90.7 >60 46 Laboratory test 10/02/2017 [facility] CRP High 3.53 mg/L [address] [place] [address] [phone] Laboratory test 09/28/2017 [facility] Hemoglobin A1c 9.1 High 5-7 finding Laboratory test 09/13/2017 [facility] Point of Care 179 mg/dL High 70-10 [address] Glucose 0 [place] [address] [phone] Laboratory test 09/13/2017 [facility] Point of Care 260 mg/dL High 70-10 [address] Glucose 0 [place] [address] [phone] Comp Metabolic 08/29/2017 [facility] Sodium 136 N 133-[address] mmol/L 45 [place] [address] [phone] Potassium 4.9 mmol/L N 3.5-5.0 Chloride 104 [...] Egfr 60.9 >60 50 Laboratory test 08/29/2017 [facility] Lipase < 10 U/L Low 11.0 -82.[address] [place] [address] [phone] CRP High Sensitivity 1.79 mg/L 51 Troponin-I (TnI) 0.00 ng/mL <0.04 Laboratory test 08/29/2017 [facility] B-Type 21 pg/mL [address] [place] [address] Peptide BNP [phone] CBC Auto Diff 08/29/2017 [facility] White Blood Count 9.1 10^3/ uL N 3.5-[address] 0.8 [place] [address] [phone] Red Blood Count 4.06 10^6/uL N 4.0-5.4 [...] Cells % 0 Comp Metabolic Panel 08/26/2017 [facility] Sodium 139 mmol/L N 133-[address] [place] [address] [phone] Potassium 5.0 mmol/L N 3.5-5.0 Chloride 105 [...] >60 Egfr 80.7 >60 53 Inr/Protime 08/26/2017 [facility] Inr 0.82 N 0.77-1.[address] [place] [address] [phone] Laboratory test 08/26/2017 [facility] Partial 27.7 seconds N 26.0-36.[address] [place] [address] PTT [phone] CBC Auto Diff 08/26/2017 [facility] White Blood 9.0 10^3/uL N 3.5-10.[address] [place] [address] [phone] Red Blood Count 4.42 10^6/uL N 4.0-5.4 [...] Blood Cells % 0 Laboratory test 08/26/2017 [facility] Troponin-I 0.01 <0.[address] (TnI) ng/[place] [address] [phone] Laboratory test 08/25/2017 [facility] C Reactive 3.27 mg/L N < 5.00 [address] [place] [address] [phone] Venous Blood 08/25/2017 [facility] Venous Blood 7.48 High 7.33 -7.[address] [place] [address] [phone] Venous Pco2 31 mmHg Low 41-51 Venous Po2 98 mmHg High 35-45 Venous O2 Saturation 95.3 % High 70-80 Venous Blood Base Excess 0.1 N 0-4 55 Venous Bicarbonate Hco3 25.0 mmol/L N 24-28 CBC Auto Diff 08/25/2017 [facility] White Blood 8.9 10^3/uL N 3.5-10.[address] [place] [address] [phone] Red Blood Count 4.33 10^6/uL N 4.0-5.4 [...] Blood Cells % 0 Laboratory test 08/25/2017 [facility] Point of 289 mg/dL High 70-100 56 finding 101 [place] [address] [phone] Comp Metabolic 08/25/2017 [facility] Sodium 134 mmol/L N 133- 145 Panel 101 [place] [address] [phone] Potassium 4.8 mmol/L N 3.5-5.0 Chloride 101 [...] Egfr 88.3 >60 57 Urinalysis Profile 08/25/2017 [facility] Urine Color Yellow [address] [place] [address] [phone] Urine Appearance Clear Urine Specific [place] 1.010 N 1.010-1.030 Urine pH 5.0 N 5-9 Urine Urobilinogen Negative Negative Urine Ketones Negative Negative Urine Protein Negative Negative Urine Leukocytes Negative Negative Urine Blood Negative Negative Urine Nitrite Negative Negative Urine Bilirubin Negative Negative Urine Glucose 3+(>=500 mg/dL) Abnormal Negative Laboratory test 08/25/2017 [facility] Point of 157 mg/dL High 70-100 58 finding 101 [place] [address] [phone] Laboratory test 08/23/2017 [facility] Point of 224 mg/dL High 70-100 59 finding 101 [place] [address] [phone] Laboratory test 08/22/2017 [facility] Lactic Acid 1.3 mmol/L N 0.5-2.0 60 finding 101 [place] [address] [phone] Comp Metabolic 08/22/2017 [facility] Sodium 131 mmol/L Low 133 -145 Panel 101 [place] [address] [phone] Potassium 4.6 mmol/L N 3.5-5.0 Chloride 98 [...] mg/dL High 70-100 62 Laboratory test 08/22/2017 [facility] Magnesium 2.0 mg/dL N 1.9-2.7 finding [address] [place] [address] [phone] Creatine Kinase(CK) 121 U/L N 10-223 C Reactive Protein 4.62 mg/L N < 5.00 63 Troponin-I (TnI) 0.01 ng/mL <0.04 Laboratory test 08/22/2017 [facility] Glucose 417 mg/dL High 70-100 finding [address] [place] [address] [phone] Laboratory test 08/22/2017 [facility] Point of > 444 mg/dL High 70-100 64 finding 101 [facility] [place] [address] [phone] Urinalysis 08/22/2017 [facility] Urine Color Yellow Profile [address] [place] [address] [phone] Urine Appearance Cloudy Urine Specific [place] 1.023 N 1.010-1.030 Urine pH 6.0 N [...] Present Abnormal Absent Urine Culture And 08/22/2017 [facility] Urine Culture SEE RESULT [address] [place] [address] [phone] CBC Auto Diff 08/22/2017 [facility] White Blood 8.9 10^3/uL N 3.5-[address] Count 0.8 [place] [address] [phone] Red Blood Count 4.19 10^6/uL N 4.0-5.4 [...] Cells % 0.1 Venous Blood Gas 08/22/2017 [facility] Venous Blood pH 7.42 N 7.33-7.[address] [place] [address] [phone] Venous Pco2 49 mmHg N 41-51 Venous Po2 36 mmHg N 35-45 Venous O2 Saturation 78.1 % N 70-80 Venous Blood Base Excess 6.3 High 0-4 66 Venous Bicarbonate Hco3 29.4 mmol/L High 24-28 Inr/Protime 08/22/2017 [facility] Inr 0.91 N 0.77-1.[address] [place] [address] [phone] Laboratory test 08/18/2017 [facility] Point of 180 mg/dL High 70-[address] [place] [address] Glucose [phone] Urinalysis 08/17/2017 [facility] Urine Color Yellow Profile [address] [place] [address] [phone] Urine Appearance Cloudy Urine Specific [place] 1.016 N 1.010-1.030 Urine pH 5.0 N 5-9 Urine Urobilinogen Negative Negative Urine Ketones Negative Negative Urine Protein Negative Negative Urine Leukocytes Negative Negative Urine Blood Negative Negative Urine Nitrite Negative Negative Urine Bilirubin Negative Negative Urine Glucose 3+(>=500 mg/dL) Abnormal Negative Urine Drug 08/17/2017 [facility] Amphetamine Ur None Detected None Detect SCR ED & 101 [facility] [place] [address] [phone] Barbiturates Urine Screen None Detected None Detect Benzodiazepine Urine Screen None Detected None Detect Urine Cannabinoids Screen None Detected None Detect Urine Cocaine Screen None Detected None Detect Urine Opiates Screen None Detected None Detect Urine Phencyclidine Screen None Detected None Detect 68 Laboratory test 08/17/2017 [facility] Point of 276 mg/dL High 70-100 [address] [place] [address] [place] [address] [phone] Laboratory test 08/17/2017 [facility] Point of > 444 High 70- 100 [address] [place] [address] Glucose mg/[place] [address] [phone] Venous Blood 08/17/2017 [facility] Venous Blood 7.36 N 7.33- 7.[address] [place] [address], [place] [address] [phone] Venous Pco2 48 mmHg N 41-51 Venous Po2 29 mmHg Low 35-45 Venous O2 Saturation 59.9 % Low 70-80 Venous Blood Base Excess 1.1 N 0-4 71 Venous Bicarbonate Hco3 24.9 mmol/L N 24-28 CBC Auto Diff 08/17/2017 [facility] White Blood 10.8 10^3/uL N 3.5-10.[address] [place] [address] [phone] Red Blood Count 4.74 10^6/uL N 4.0-5.4 [...] Cells % 0 Comp Metabolic Panel 08/17/2017 [facility] Sodium 133 mmol/L N 133-[address] [place] [address] [phone] Potassium 4.9 mmol/L N 3.5-5.0 Chloride 101 [...] mg/dL High 70-100 73 Laboratory test 08/17/2017 [facility] Acetaminophen < 15 g/mL [address] [place] [address] [phone] Alcohol < 10 mg/dL N <10 Salicylate < 2.50 mg/dL <30 TSH (Thyroid Stim Horm) 2.76 mcIU/mL N 0.34-5.60 Lamotrigine (Lamictal) 4.2 g/mL 2.5 - 15.0 75 Laboratory test 08/17/2017 [facility] Point of > 444 High 70- 100 [address] Care Glucose mg/[place] [address] [phone] Laboratory test 08/09/2017 [facility] Point of 266 mg/dL High 70-100 [address] [place] [address] [phone] CBC Auto Diff 08/08/2017 [facility] White Blood 11.9 High 3.5- 10.[address] Count 10^3/[place] [address] [phone] Red Blood Count 4.78 10^6/uL N 4.0-5.4 [...] Cells % 0 Comp Metabolic Panel 08/08/2017 [facility] Sodium 136 mmol/L N 133-[address] [place] [address] [phone] Potassium 4.3 mmol/L N 3.5-5.0 Chloride 100 [...] Egfr 95.9 >60 78 Laboratory test 08/08/2017 [facility] Acetaminophen < 15 g/mL [address] [place] [address] [phone] Alcohol < 10 mg/dL N <10 Salicylate < 2.50 mg/dL <30 TSH (Thyroid Stim Horm) 2.67 mcIU/mL N 0.34-5.60 Lamotrigine (Lamictal) 2.5 g/mL 2.5 - 15.0 80 Urinalysis Profile 08/08/2017 [facility] Urine Color Yellow [address] [place] [address] [phone] Urine Appearance Cloudy Urine Specific [place] 1.022 N 1.010-1.030 Urine pH 6.0 N 5-9 Urine Urobilinogen Negative Negative Urine Ketones Negative Negative Urine Protein Negative Negative Urine Leukocytes Negative Negative Urine Blood Negative Negative Urine Nitrite Negative Negative Urine Bilirubin Negative Negative Urine Glucose 3+(>=500 mg/dL) Abnormal Negative Urine Drug 08/08/2017 [facility] Amphetamine Ur None Detected None Detect SCR ED & 101 [facility] [place] [address] [phone] Barbiturates Urine Screen None Detected None Detect Benzodiazepine Urine Screen None Detected None Detect Urine Cannabinoids Screen None Detected None Detect Urine Cocaine Screen None Detected None Detect Urine Opiates Screen None Detected None Detect Urine Phencyclidine Screen None Detected None Detect 81 Laboratory test 08/04/2017 [facility] Point of Care 258 mg/dL High 70-100 [address] [facility] [place] [address] [phone] Laboratory test 08/04/2017 [facility] Point of Care 175 mg/dL High 70-100 [address] [address] [phone] Laboratory test 08/04/2017 [facility] Point of Care 284 mg/dL High 70-100 84 finding 101 [facility] [place] [address] [phone] Urinalysis 08/03/2017 [facility] Urine Color Yellow Profile [address] [place] [address] [phone] Urine Appearance Cloudy Urine Specific [place] 1.012 N 1.010-1.030 Urine pH 5.0 N [...] Crystals Present Abnormal Absent Urine Drug 08/03/2017 [facility] Amphetamine Ur None Detected None Detect SCR ED & [address] [place] [address] [phone] Barbiturates Urine Screen None Detected None Detect Benzodiazepine Urine Screen None Detected None Detect Urine Cannabinoids Screen None Detected None Detect Urine Cocaine Screen None Detected None Detect Urine Opiates Screen None Detected None Detect Urine Phencyclidine Screen None Detected None Detect 85 Urine Culture And 08/03/2017 [facility] Urine SEE RESULT [address] [place] [address] [phone] CBC Auto Diff 08/03/2017 [facility] White Blood 10.9 High 3.5- [address] Count 10^3/uL 0.8 [place] [address] [phone] Red Blood Count 4.61 10^6/uL N 4.0-5.4 [...] Cells % 0 Comp Metabolic Panel 08/03/2017 [facility] Sodium 132 mmol/L Low 133-[address] [place] [address] [phone] Potassium 4.6 mmol/L N 3.5-5.0 Chloride 98 [...] Egfr 87.1 >60 87 Laboratory test 08/03/2017 [facility] Acetaminophen < 15 g/mL [address] [place] [address] [phone] Alcohol < 10 mg/dL N <10 Salicylate < 2.50 mg/dL <30 TSH (Thyroid Stim Horm) 0.60 mcIU/mL N 0.34-5.60 Laboratory test 08/02/2017 [facility] Troponin-I 0.01 <0.[address] (TnI) ng/[place] [address] [phone] CBC Auto Diff 08/02/2017 [facility] White Blood 13.8 High 3.5- 10.[address] Count 10^3/[place] [address] [phone] Red Blood Count 4.64 10^6/uL N 4.0-5.4 [...] Cells % 0 Comp Metabolic Panel 08/02/2017 [facility] Sodium 133 mmol/L N 133-[address] [place] [address] [phone] Potassium 4.7 mmol/L N 3.5-5.0 Chloride 101 [...] Egfr 98.7 >60 89 Laboratory test 08/02/2017 [facility] Troponin-I 0.03 <0.[address] (TnI) ng/[place] [address] [phone] Urine Culture And 08/01/2017 [facility] Urine Culture SEE 90, Sensitivities [address] RESULT 91 [place] [address] BELOW [phone] Laboratory test 06/13/2017 [facility] Hemoglobin 9.2 High 5-7 finding A1c Laboratory test 06/03/2017 [facility] Point of Care 184 mg/dL High 70-100 [address] [place] [address] [phone] Laboratory test 06/03/2017 [facility] Point of Care 256 mg/dL High 70-100 [address] [place] [address] [phone] Laboratory test 06/03/2017 [facility] Point of Care 329 mg/dL High 70-100 [address] Glucose [place], [place] [address] [phone] Laboratory test 06/03/2017 [facility] Point of Care 384 mg/dL High 70-100 [address] Glucose [place], [place] [address] [phone] Laboratory test 06/03/2017 [facility] Point of Care > 444 High 70-100 [address] Glucose mg/[place] [address] [phone] Laboratory test 06/03/2017 [facility] Point of Care > 444 High 70-100 [address] Glucose mg/[place] [address] [phone] 1 Therapeutic concentration: <50 ug/mL Toxic concentration: [...] 5 Kidney failure <15 (or dialysis) 3 Import Export Clerk: [id number] 4 Import Export Clerk: [id number] 5 Because ethnic data is not always [...] <50 ug/mL Toxic concentration: >120 ug/mL 8 Import Export Clerk: [id number] Test Result Flag Unit RefValue TRYPSIN [...] cannot be used interchangeably. Test Performed by: [employer] [address] [place] [id number] 11 [id number] 12 Because ethnic data is not always [...] 130-159 High: 160-189 Very High: >189 17 [id number] 18 Therapeutic target for the treatment of diabetes mellitus patients is <7% HBA1C, and in selective patients <6.0%. Please refer to [place] [employer] diabetic care guidelines for further information. 19 Import Export Clerk: [id number] 20 Because ethnic data is not always [...] purposes only. 24 SEE RESULT BELOW Name: CECILIO ALFARO : [address]: Sendy Mcdowell MD Acct: [id number] Unit: [id number] AGE: 53 Location: ED Re07/10/18 SEX: F Status: DEP ER SPEC: [id number] ANKUR: 07/10/[address]: Sendy Mcdowell MD REQ: [id number] RECD: 07/10/18 STATUS: COMP [facility] DR: Chapo Aguila MD _ SOURCE: URINE SPDESC: ORDERED: Urine Culture Procedure Result Reported Site Urine Culture Final 07/12/18- 0845 ML No growth of clinically significant organisms * ML - Main Lab . END OF REPORT DEPARTMENT OF PATHOLOGY, [address] [place] [address] Tay Gamboa M.D. Director [facility] # [id number] 25 Import Export Clerk: [id number] 26 Import Export Clerk: [id number] 27 Import Export Clerk: [id number] 28 The urine specimen was tested at [...] <50 ug/mL Toxic concentration: >120 ug/mL 31 [facility] Severe Sepsis and Septic Shock Management [...] 5 Kidney failure <15 (or dialysis) 33 [facility] Severe Sepsis and Septic Shock Management Bundle Measure requires all lactic acids initially measuring >2.0 mmol/L be repeated. 34 SEE RESULT BELOW Name: CECILIO ALFARO : [address]: Danya Marquez MD Acct: [id number] Unit: [id number] AGE: 52 Location: [facility] Re05/15/18 SEX: F Status: REG REF SPEC: [id number] ANKUR: 05/15/18-[address]: Danya Marquez MD REQ: [id number] RECD: 05/15/18 STATUS: COMP _ SOURCE: STOOL SPDESC: ORDERED: C. diff PCR Procedure Result Reported Site Stool Specimen Description Final 05/15/18- 1306 ML Stool Color [place] Stool Form Semi-formed Stool Consistency Firm C. difficile PCR Final 05/15/18- 1306 ML Test not performed * ML - Main Lab . END OF REPORT DEPARTMENT OF PATHOLOGY, [address] [place] [address] Tay Gamboa M.D. Director [facility] # [id number] 35 Import Export Clerk: [id number] 36 Import Export Clerk: [id number] 37 Because ethnic data is not always [...] 5 Kidney failure <15 (or dialysis) 38 [facility] Severe Sepsis and Septic Shock Management [...] Reference ranges based on room air. 44 [facility] Severe Sepsis and Septic Shock Management [...] Average risk: 1.00-3.00 High risk: >3.00 48 Import Export Clerk: [id number] 49 Import Export Clerk: [id number] 50 Because ethnic data is not always [...] Reference ranges based on room air. 56 Import Export Clerk: [id number] 57 Because ethnic data is not always [...] 5 Kidney failure <15 (or dialysis) 58 Import Export Clerk: [id number] 59 Import Export Clerk: [id number] 60 [facility] Severe Sepsis and Septic Shock Management [...] dialysis) 62 Critical Result [id number] Called to [id number] at: 21:48:40 by:[id number] Read back by:[id number] 63 Acute inflammation: >10.00 64 Import Export Clerk: [id number] 65 SEE RESULT BELOW Name: CECILIO ALFARO : [address]: Violeta Yusuf MD Acct: [id number] Unit: [id number] AGE: 52 Location: ED Re08/22/17 SEX: F Status: DEP ER SPEC: [id number] ANKUR: 08/22/[address] [facility] [address]: Violeta Yusuf MD REQ: [id number] RECD: 08/22/17 STATUS: [facility] DR: Chapo Aguila MD _ SOURCE: URINE SPDESC: ORDERED: Urine Culture Procedure Result Reported Site Urine Culture Final 08/23/17- 1607 ML Mixed seema; possible contamination. Suggest resubmission. * ML - MAIN LAB ([facility]) . END OF REPORT * ML=Testing performed at Main Lab DEPARTMENT OF PATHOLOGY, [address] [place] [address] Tay Gamboa M.D. Director [facility] # [id number] 66 Reference ranges based on room air. 67 Import Export Clerk: [id number] 68 The urine specimen was tested at the listed cutoffs: Drug class test level (ng/mL) Amphetamines 500 Barbiturates 200 Benzodiazepine metabolites 200 Cocaine metabolites 150 Cannabinoids 50 Opiates 300 Pcp 25 Specimen was received without chain of custody. Results should be used for medical purposes only. 69 Import Export Clerk: [id number] 70 Import Export Clerk: [id number] 71 Reference ranges based on room air. [...] dialysis) 73 Critical Result [id number] Called to [id number] at: 18:00:03 by:[id number] Read back by:[id number] 74 Therapeutic concentration: <50 ug/mL Toxic concentration: >120 ug/mL 75 ADDITIONAL INFORMATION This test was developed and its performance characteristics determined by [facility] in a manner consistent with CLIA requirements. This test has not been cleared or approved by the U.S. Food and Drug Administration. Test Performed by: [facility] [address] [place] [address] 76 Import Export Clerk: [id number] 77 Import Export Clerk: [id number] 78 Because ethnic data is not always [...] its performance characteristics determined by [facility] in a manner consistent with CLIA requirements. This test has not been cleared or approved by the U.S. Food and Drug Administration. Test Performed by: [facility] [employer] [address] [place] [address] 81 The urine specimen was tested at the listed cutoffs: Drug class test level (ng/mL) Amphetamines 500 Barbiturates 200 Benzodiazepine metabolites 200 Cocaine metabolites 150 Cannabinoids 50 Opiates 300 Pcp 25 Specimen was received without chain of custody. Results should be used for medical purposes only. 82 Import Export Clerk: [id number] 83 Import Export Clerk: [id number] 84 Import Export Clerk: [id number] 85 The urine specimen was tested at the listed cutoffs: Drug class test level (ng/mL) Amphetamines 500 Barbiturates 200 Benzodiazepine metabolites 200 Cocaine metabolites 150 Cannabinoids 50 Opiates 300 Pcp 25 Specimen was received without chain of custody. Results should be used for medical purposes only. 86 SEE RESULT BELOW Name: CECILIO ALFARO : [address]: Sendy Mcdowell MD Acct: [id number] Unit: [id number] AGE: 52 Location: ED Re08/03/17 SEX: F Status: REG ER SPEC: [id number] ANKUR: 08/03/[address]: Sendy Mcdowell MD REQ: [id number] RECD: 08/03/17 STATUS: COMP [facility] DR: Chapo Aguila MD _ SOURCE: URINE SPDESC: ORDERED: Urine Culture Procedure Result Reported Site Urine Culture Final 08/05/17- 1225 ML No growth of clinically significant organisms * ML - MAIN LAB ([facility]) . END OF REPORT * ML=Testing performed at Main Lab DEPARTMENT OF PATHOLOGY, [address] [place] [address] Tay Gamboa M.D. Director [facility] # [id number] 87 Because ethnic data is not always [...] 5 Kidney failure <15 (or dialysis) 90 [id number] 91 SEE RESULT BELOW Name: CECILIO ALFARO : [address]: Any Ramirez MD Acct: [id number] Unit: [id number] AGE: 52 Location: [facility] Re08/01/17 SEX: F Status: DEP ER SPEC: [id number] ANKUR: 08/01/17-[address]: Any Ramirez MD REQ: [id number] RECD: 08/02/17-1104 STATUS: TASHA [facility] DR: Chapo Aguila MD _ SOURCE: URINE SPDESC: ORDERED: Urine Culture COMMENTS: [id number] Procedure Result Reported Site Urine Culture Final 08/03/17- 1251 ML Mixed seema; possible contamination. Suggest resubmission. * ML - MAIN LAB ([facility]) . END OF REPORT * ML=Testing performed at Main Lab DEPARTMENT OF PATHOLOGY, [address] [place] [address] Tay Gamboa M.D. Director [facility] # [id number] 92 Import Export Clerk: [id number] 93 Import Export Clerk: [id number] 94 Import Export Clerk: [id number] 95 Import Export Clerk: [id number] 96 Import Export Clerk: [id number] 97 Import Export Clerk: [id number] Procedures Date Code Description Status 07/21/2018 60469 Inhalation [place] For Acute Airway Obstruction Completed W/Nebulizer/Inhaler 11/03/2017 15052 EKG, Interpretation Only Completed 10/26/2017 [id number] Diabetic Retinal Eye Exam Completed 10/11/2017 69926 Inject/Drain Joint/Bursa Major W/O US Completed 06/03/2017 73290 Carpal Tunnel Release Completed 06/03/2017 49209 Carpal Tunnel Release Completed 05/01/2016 [id number] Mammogram Completed 04/06/2016 93825 EEG Recording Awake & Drowsy Completed 04/03/2016 64560 EKG, Interpretation Only Completed 04/29/2015 60148 EEG Recording Awake & Drowsy Completed 04/16/2012 95716 EKG, Interpretation Only Completed 04/16/2012 57687 EKG, Interpretation Only Completed Encounters Type Date Location Provider Dx Diagnosis Office Visit 09/06/2018 [facility] Rosa Schroeder MD I10 Essential ( primary) 2:20p Medicine - [address] E11.65 Type 2 diabetes mellitus with hyperglycemia R19.7 Diarrhea, unspecified M54.41 Lumbago with sciatica, right side F17.210 Nicotine dependence, cigarettes, uncomplicated R68.84 Jaw pain F60.3 Borderline personality disorder Office Visit 07/26/2018 [facility] Internal Lawrence Simental J40 Bronchitis, not 2:40p Jaylene Denson M.D.,FACP specified as acute [address] or chronic Office Visit 07/21/2018 [place] Schroeder MD J45.901 Unspecified asthma 11:40a Medicine - with (acute) [place] exacerbation X79.xxxA Intentional self-harm by blunt object, initial encounter I10 Essential (primary) hypertension M54.41 Lumbago with sciatica, right side F60.3 Borderline personality disorder T18.9xxA Foreign body of alimentary tract, part unsp, init encntr Office Visit 07/18/2018 11:00a [place] [facility] Z79.4 [facility] [place] (current) use of insulin E11.65 Type 2 diabetes mellitus with hyperglycemia E03.9 Hypothyroidism, unspecified R15.2 Fecal urgency Office Visit 07/04/2018 1:00p [place] [facility] [place] [facility] Z79.4 prison [facility] (current) use of insulin E11.65 Type 2 diabetes mellitus with hyperglycemia E03.9 Hypothyroidism, unspecified R19.7 Diarrhea, unspecified T50.902D Poisoning by unsp drug/meds/biol subst, self-harm, subs Office Visit 07/03/2018 10:00a [facility] Rosa Schroeder, E11.65 Type 2 diabetes [...] Other synovitis and 1:15p Services Of Adelina Duarteosyngregory, C.M.A. right hand M54.41 Lumbago with sciatica, right side Office Visit 05/22/2018 2:30p [place] Schroeder, R19.7 Diarrhea, Medicine - [address] L08.1 Erythrasma R15.1 Fecal smearing Office Visit 05/15/2018 1:30p [facility] Rosa Schroeder, R19.7 Diarrhea, Medicine - [address] F17.210 Nicotine dependence, cigarettes, uncomplicated J45.909 Unspecified asthma, uncomplicated E11.65 Type 2 diabetes mellitus with hyperglycemia Z91.81 History of falling E11.9 Type 2 diabetes mellitus without complications Office Visit 05/08/2018 9:30a [facility] Rosa Schroeder, E11.65 Type 2 diabetes Medicine - MD mellitus with [address] hyperglycemia R15.1 Fecal smearing I10 Essential (primary) hypertension R94.5 Abnormal results of liver function studies F33.3 Major depressv disorder, recurrent, severe w psych symptoms [facility] G92 Toxic encephalopathy 11:25a Assocmatthieu M.D. Hospitalists T50.904A Poisoning by unsp drug/meds/biol subst, undetermined, init F60.3 Borderline personality disorder R40.2432 [place] coma scale score 3-8, EMR Office Visit 11/03/2017 11:23a Intensivists Ishmael Dumont G92 Toxic encephalopathy Cheng, D.O. F60.3 Borderline personality disorder T50.904A Poisoning by unsp drug/meds/biol subst, undetermined, init R40.2432 [place] coma scale score 3-8, EMR Office Visit 11/02/2017 11:22a Intensivists Ishmael Dumont R40.2432 Kriss coma Cheng, D.O. scale score 3-8, EMR G92 Toxic encephalopathy T50.904A Poisoning by unsp drug/meds/biol subst, undetermined, init F60.3 Borderline personality disorder Office Visit 10/18/2017 Orthopedic Naveed Lutz M75.31 Calcific tendinitis 9:00a Services Of MD Venecia of right shoulder C.M.A. Office Visit 10/13/2017 [facility] Jun Cowan E11.65 Type 2 diabetes 1:40p Medicine - [place], mellitus with Rd M.D. hyperglycemia Z12.31 Encntr screen mammogram for malignant neoplasm of breast Z12.11 Encounter for screening for malignant neoplasm of colon Office Visit 10/11/2017 Orthopedic Naveed Lutz M75.31 Calcific tendinitis 1:30p Services Of MD Venecia of right shoulder C.M.A. Office Visit 09/28/2017 [facility] Jun Cowan E11.65 Type 2 diabetes 1:20p Medicine - [place], mellitus with [place] M.DJarred hyperglycemia M79.645 Pain in left finger(s) E03.9 Hypothyroidism, unspecified Office Visit 09/19/2017 [facility] [place] E11.65 Type 2 diabetes 2:40p Jaylene Aguila M.D. 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 mellitus without [address] complications M51.16 Intervertebral disc disorders w radiculopathy, lumbar region F31.31 Bipolar disorder, current episode depressed, mild E66.01 Morbid (severe) obesity due to excess calories Z68.41 Body mass index (BMI) 40.0-44.9, adult Office Visit 06/13/2017 3:20p [facility] [place] E11.9 Type 2 diabetes Jaylene [...] dependence, cigarettes, uncomplicated B37.9 Candidiasis, unspecified Z79.4 roasterman (current) use of insulin Office Visit 05/26/2017 Orthopedic Marline G56.02 Carpal tunnel 8:45a Services Of Hilda Duarte M.D. syndrome, left upper limb Office Visit 05/11/2017 Surgical Seniadevin Pradhan R10.9 Unspecified 10:45a [facility] abdominal pain Office Visit 06/14/2016 [facility] Rosi L02.91 Cutaneous 1:40p Assoc,matthieu Grant NP abscess, Hospitalists unspecified E11.9 Type 2 diabetes mellitus without complications Z79.4 roasterman (current) use of insulin Office Visit 06/13/2016 1:39p [facility] Alexus Elliott, L02.91 Cutaneous Assoc,pc N.P. abscess, Hospitalists unspecified E11.9 Type 2 diabetes mellitus without complications Z79.4 prison (current) use of insulin Office Visit 05/21/2016 [facility] T39.1x2A Poisoning by 3:25p Assocmatthieu M.D. 4-Aminophenol Hospitalists derivatives, self-harm, init E11.9 Type 2 diabetes mellitus without complications F79 Unspecified intellectual disabilities Office Visit 05/20/2016 [facility] T39.1x2A Poisoning by 3:24p Assmatthieu drake M.D. 4-Aminophenol Hospitalists derivatives, self-harm, init E11.9 Type 2 diabetes mellitus without complications F79 Unspecified intellectual disabilities Office Visit 05/19/2016 [facility] T39.1x2A Poisoning by 3:24p Assmatthieu drake M.D. 4-Aminophenol Hospitalists derivatives, self-harm, init E11.9 Type 2 diabetes mellitus without complications F79 Unspecified intellectual disabilities Office Visit 05/18/2016 [facility] T39.1x2A Poisoning by 3:23p Assocmatthieu M.D. 4-Aminophenol Hospitalists derivatives, self-harm, init E11.9 Type 2 diabetes mellitus without complications F79 Unspecified intellectual disabilities Office Visit 05/17/2016 [facility] T39.1x2A Poisoning by 3:23p Assmatthieu drake M.D. 4-Aminophenol Hospitalists derivatives, self-harm, init E11.9 Type 2 diabetes mellitus without complications F79 Unspecified intellectual disabilities Office Visit 05/16/2016 [facility] T39.1x2A Poisoning by 3:22p Assocmatthieu M.D. 4-Aminophenol Hospitalists derivatives, self-harm, init E11.9 Type 2 diabetes mellitus without complications F79 Unspecified intellectual disabilities Office Visit 05/15/2016 [facility] Ml T39.1x2A Poisoning by 3:22p Assocmatthieu M.D. 4-Aminophenol Hospitalists derivatives, self-harm, init E11.9 Type 2 diabetes mellitus without complications F79 Unspecified intellectual disabilities Office Visit 05/14/2016 [facility] Yara T39.1x2A Poisoning by 3:22p Assocmatthieu D.O. 4-Aminophenol Hospitalists derivatives, self-harm, init E11.9 Type 2 diabetes mellitus without complications F79 Unspecified intellectual disabilities Office Visit 05/13/2016 [facility] Yara T39.1x2A Poisoning by 3:21p Assocmatthieu D.O. 4-Aminophenol Hospitalists derivatives, self-harm, init E11.9 Type 2 diabetes mellitus without complications F79 Unspecified intellectual disabilities [facility] T[facility]A Poisoning by 3:21p Assocmatthieu DJarredO. 4-Aminophenol Hospitalists derivatives, self-harm, init E11.9 Type 2 diabetes mellitus without complications F79 Unspecified intellectual disabilities Office 05/11/2016 [facility] Benjamin T39.1x2A Poisoning by Visit 3:20p Assocmatthieu PA 4-Aminophenol Hospitalists derivatives, self-harm, init E11.9 Type 2 diabetes mellitus without complications F79 Unspecified intellectual disabilities Office Visit 05/03/2016 [facility] Anu R73.9 Hyperglycemia, 11:09a Assoc,matthieu Diaz, DO unspecified Hospitalists J40 Bronchitis, not specified as acute or chronic G89.4 Chronic pain syndrome Office Visit 04/07/2016 3:52p [facility] Ml R40.4 Transient Assocmatthieu M.D. alteration of Hospitalists awareness E13.9 Other specified diabetes mellitus without complications F79 Unspecified intellectual disabilities Z91.19 Patient's noncompliance w oth medical treatment and regimen Office Visit 04/06/2016 3:52p [facility] Ml R40.4 Transient Assocmatthieu M.D. alteration of Hospitalists awareness E13.9 Other specified diabetes mellitus without complications F79 Unspecified intellectual disabilities Z91.19 Patient's noncompliance w oth medical treatment and regimen Office Visit 04/05/2016 [facility] Transient Assoc,pc Addy, D.O. alteration of Hospitalists awareness E13.9 Other specified diabetes mellitus without complications F79 Unspecified intellectual disabilities Z91.19 Patient's noncompliance w oth medical treatment and regimen Office Visit 04/04/2016 3:51p [facility] Yara R40.4 Transient Assoc,pc Addy, D.O. alteration of Hospitalists awareness E13.9 Other specified diabetes mellitus without complications F79 Unspecified intellectual disabilities Z91.19 Patient's noncompliance w oth medical treatment and regimen Office Visit 04/03/2016 3:50p [facility] Rosi R40.4 Transient Assoc,pc Juanita, MATERIALS ANALYST alteration of Hospitalists awareness E13.9 Other specified diabetes mellitus without complications F79 Unspecified intellectual disabilities Z91.19 Patient's noncompliance w oth medical treatment and regimen Office Visit 10/01/2015 10:08a [facility] Gray M54.31 Sciatica, right Assoc,pc Fabien, N.PJarred side Hospitalists E11.9 Type 2 diabetes mellitus without complications F60.3 Borderline personality disorder Office Visit 09/28/2015 10:06a [facility] Ml M54.31 Sciatica, right Assoc,matthieu Mosquera M.D. side Hospitalists E11.9 Type 2 diabetes mellitus without complications Office Visit 04/24/2015 [facility] Conner 276.1 Hyposmolality & Or 1:31p Assoc,matthieu Powers M.D. Hyponatremia Hospitalists 296.7 Bipolar I Disorder Current NOS 301.83 Borderline Personality Disorder Office Visit 04/23/2015 [facility] Conner 276.1 Hyposmolality & Or 1:30p Assocmatthieu M.D. Hyponatremia Hospitalists 250.00 Diabetes Mellitus W/O Compl Type II Or Unspec Controlled 296.7 Bipolar I Disorder Current NOS 301.83 Borderline Personality Disorder Office Visit 04/22/2015 [facility] Quique 276.1 Hyposmolality & Or 1:29p Assoc,matthieu Aden M.D. Hyponatremia Hospitalists 250.00 Diabetes Mellitus W/O Compl Type II Or Unspec Controlled 301.83 Borderline Personality Disorder Office Visit 04/21/2015 [facility] Gray 276.1 Hyposmolality & Or 1:28p Assocmatthieu N.PJarred Hyponatremia Hospitalists 296.7 Bipolar I Disorder Current NOS 301.83 Borderline Personality Disorder 250.00 Diabetes Mellitus W/O Compl Type II Or Unspec Controlled Office Visit 11/27/2014 [facility] Sherita 244.9 Hypothyroidism 8:42a Assocmatthieu M.D. Other Unspec Hospitalists 250.02 Diabetes Mellitus W/O Compl Type II Or Unspec Type Uncontrol 301.83 Borderline Personality Disorder [facility] Poisoning By Other 4:07p Assocmatthieu D.O. Antidepressants Hospitalists 300.9 Nonpsychotic Disorders NOS 311 Depressive Disorder Not Elsewhere Spec Office 04/16/2012 [facility] 969.09 Poisoning By Other Visit 4:35p Assocmatthieu M.D. Antidepressants Hospitalists 300.9 Nonpsychotic Disorders NOS 311 Depressive Disorder Not Elsewhere Spec V11.1 History Personal Affective Disorder Office Visit 10/18/2009 1:00a [facility] Jase Jesus, 789.00 Pain Abdominal Assocmatthieu M.D. Unspec Site Hospitalists 787.03 Vomiting Alone 790.29 Other Abnormal Glucose 250.02 Diabetes Mellitus W/O Compl Type II Or Unspec Type Uncontrol Office Visit 10/17/2009 3:00a [facility] Jase Jesus, 790.29 Other Abnormal Assocmatthieu M.D. Glucose Hospitalists 789.00 Pain Abdominal Unspec Site 295.70 Schizoaffective Disorder NOS 401.9 Hypertension Unspec Office Visit 10/16/2009 12:15a [facility] Sherita 790.29 Other Abnormal Assocmatthieu M.D. Glucose Hospitalists 296.80 Bipolar Disorder NOS Plan of Treatment Future Appointment(s):01/02/2019 2:40 pm - Rosa Schroeder MD at [facility]10/11/2018 3:00 pm - Consuelo Corrales PA-C at [facility]/02/2018 - Rosa Schroeder MDI10 Essential (primary) hypertensionFollow up: 3 nfsugzN81.16 Radiculopathy, lumbar ctkdjeI82.211 Nicotine dependence, cigarettes, in lnctyiofzI21.9 Obesity, unspecifiedComments:cut down on npyemwP79.3 Candidiasis of vulva and vaginaNew Medication:Fluconazole 150 mg - 1 tab by mouth x 1, may repeat after 2 days if not better
[2018-10-17] MEDS ORDERED: Cyclobenzaprine TAB* 10 MG PO ONE (23:07)
--- NOTE | 2018-10-17 23:12 | ED ---
Back Pain - HPI Summary HPI Summary: 53 year old female presents with back pain for the past couple weeks. She states that she is a developing numbness and tingling down the right leg. She states that it hurts more to walk. No weakness. No urinary symptoms. No loss of bowel or bladder. No saddle anesthesia. No fever. No new injury. Had an MRI yesterday. She states that she was given Percocet for teeth infection and it was helping with the pain but does not have the teeth any worse so it not taking the percocet anymore. she states she's had this pain in the past and Flexeril also worked well. MRI IMPRESSION: 1. DEGENERATIVE DISC DISEASE AND OSTEOARTHRITIS. 2. THERE IS MODERATE NARROWING OF THE CENTRAL CANAL AT L5-S1 WITH MILD NARROWING AT L4-L5. 3. THERE IS MULTILEVEL NEURAL FORAMINAL NARROWING DESCRIBED ABOVE. 4. THERE IS A CENTRAL DISC EXTRUSION AT L5-S1 ABUTTING THE NERVE ROOTS BILATERALLY. 5. THERE IS A SMALL RIGHT-SIDED DISC PROTRUSION AT T12-L1. - History of Current Complaint Chief Complaint: EDBackInjuryPain Stated Complaint: TO CC HAD AN MRI THEY THINK SOMETHING WRONG PER PT Time Seen by Provider: 10/17/18 22:52 Hx Last Menstrual Period: "last month" Pain Intensity: 5 - Allergies/Home Medications Allergies/Adverse Reactions: Allergies Allergy/AdvReac Type Severity Reaction Status Date / Time ciprofloxacin Allergy Dizziness Verified 10/17/18 20:31 latex Allergy Rash Verified 10/17/18 20:31 lithium Allergy See Comment Verified 10/17/18 20:31 lurasidone [From Latuda] Allergy Altered Verified 10/17/18 20:31 Mental Status nalbuphine Allergy Unknown Verified 10/17/18 20:31 Reaction Details naldemedine Allergy Unknown Verified 10/17/18 20:31 Reaction Details Penicillins Allergy Rash Verified 10/17/18 20:31 perphenazine Allergy Unknown Verified 10/17/18 20:31 Reaction Details Sulfa (Sulfonamide Allergy Hives Verified 10/17/18 20:31 Antibiotics) tramadol Allergy Altered Verified 10/17/18 20:31 Mental Status ENVIRONMENTAL Allergy Mild SINUS Uncoded 10/17/18 20:31 PMH/Surg Hx/FS Hx/Imm Hx Endocrine/Hematology History: Reports: Hx Diabetes, Hx Thyroid Disease, Other Endocrine/Hematological Disorders - Chronic pancreatitis Denies: Hx Anticoagulant Therapy Cardiovascular History: Reports: Hx Hypertension, Other Cardiovascular Problems/ Disorders - HX OF PSVT 04/2008 Denies: Hx Pacemaker/ICD Respiratory History: Reports: Hx Asthma, Hx Seasonal Allergies, Hx Sleep Apnea - HX OF IN THE PAST Denies: Hx Chronic Bronchitis, Hx Chronic Obstructive Pulmonary Disease (COPD ), Hx Cystic Fibrosis, Hx Lung Cancer, Hx Pleural Effusion, Hx Pneumonia, Hx Pulmonary Edema, Hx Pulmonary Embolism, Other Respiratory Problems/Disorders GI History: Reports: Hx Gall Bladder Disease, Hx Gastroesophageal Reflux Disease - ON MEDICATION FOR, Hx Gastrointestinal Bleed, Hx Irritable Bowel, Other GI Disorders - HX OF pancreatitis- STATES LAST ABOUT 2 WEEKS AGO- STATES SLIGHT CASE Denies: Hx Ulcer History: Reports: Other Problems/Disorders - urinary incontinence Denies: Hx Dialysis, Hx Renal Disease Musculoskeletal History: Reports: Hx Arthritis, Hx Back Problems, Other Musculoskeletal History - GEN MUSCULOSKELETAL PAIN Denies: Hx Rheumatoid Arthritis, Hx Bursitis, Hx Congenital Bone Abnormalities, Hx Fibromyalgia, Hx Gout, Hx Orthopedic Injury, Hx Osteoporosis, Hx Scoliosis, Hx Tendonitis Sensory History: Reports: Hx Contacts or Glasses, Hx Vision Problem Denies: Hx Cataracts, Hx Eye Injury, Hx Eye Prosthesis, Hx Glaucoma, Hx Macular Degeneration, Hx Hearing Aid, Other Sensory Impairments Opthamlomology History: Reports: Hx Contacts or Glasses, Hx Vision Problem Denies: Hx Cataracts, Hx Eye Injury, Hx Eye Prosthesis, Hx Glaucoma, Hx Macular Degeneration, Other Sensory Impairments Neurological History: Reports: Hx Developmental Delay - intellectual disability , Hx Seizures - STATES WITH ALLERGIC REACTION TO TRAMADOL Denies: Hx Dementia, Hx Headaches, Other Neuro Impairments/Disorders Psychiatric History: Reports: Hx Anxiety, Hx Depression, Hx Post Traumatic Stress Disorder, Hx Inpatient Treatment, Hx Community Mental Health Tx, Hx Bipolar Disorder - pt manic, Hx Suicide Attempt, Hx of Violent Episodes Against Others, Other Psychiatric Issues/Disorders - PSYCHOSIS NOS, HX OF PTSD, SCHIZOAFFECTIVE DISORDER, BORDERLINE PERSONALITY Denies: Hx Attention Deficit Hyperactivity Disorder, Hx Eating Disorder, Hx Panic Disorder, Hx Schizophrenia, Hx Substance Abuse - Cancer History Cancer Type, Location and Year: None reported - Surgical History Surgery Procedure, Year, and Place: 2011-CATARACT EXTRACTION. GALLBLADDER REMOVED Hx Anesthesia Reactions: No - Immunization History Date of Tetanus Vaccine: unk Date of Influenza Vaccine: fall 2017 Infectious Disease History: No Infectious Disease History: Denies: Hx Clostridium Difficile, Hx Hepatitis, Hx Human Immunodeficiency Virus (HIV), Hx of Known/Suspected MRSA, Hx Shingles, Hx Tuberculosis, Hx Known/ Suspected VRE, Hx Known/Suspected VRSA, History Other Infectious Disease, Traveled Outside the [place] in Last 30 Days - Family History Known Family History: Positive: Other - Anxiety and depression, [place] - father Negative: Cardiac Disease, Hypertension, Diabetes Family History: Depression and anxiety - Social History Alcohol Use: None Hx Substance Use: Yes Substance Use Type: Reports: None Hx Tobacco Use: Yes Smoking Status (MU): Current Every Day Smoker Type: Cigarettes Amount Used/How Often: 1/2 PPD FOR LAST 30 DAYS, NO OTHER TOBACCO Length of Time of Smoking/Using Tobacco: 2 year ago Have You Smoked in the Last Year: Yes - Patient has smoked within the last 30 days Review of Systems Negative: Fever Negative: Chest Pain Negative: Shortness Of Breath Positive: Myalgia - back pain Positive: Paresthesia - right leg All Other Systems Reviewed And Are Negative: Yes Physical Exam Triage Information Reviewed: Yes Vital Signs On Initial Exam: Initial Vitals Temp Pulse Resp BP Pulse Ox 99.3 F 94 16 167/106 98 10/17/18 20:25 10/17/18 20:25 10/17/18 20:25 10/17/18 20:25 10/17/18 20:25 Vital Signs Reviewed: Yes Appearance: Positive: Well-Appearing Skin: Positive: Warm, Dry Head/Face: Positive: Normal Head/Face Inspection Eyes: Positive: Normal, Conjunctiva Clear ENT: Positive: Pharynx normal Respiratory/Lung Sounds: Positive: Clear to Auscultation, Breath Sounds Present Cardiovascular: Positive: Normal, RRR Abdomen Description: Positive: Nontender, Soft Bowel Sounds: Positive: Present Musculoskeletal: Positive: Strength/ROM Intact - back, Other - tenderness SI joint back, sensation grossly intact leg, pos SLR right, good pulses Neurological: Positive: Sensory/Motor Intact, Reflexes Intact - patella, Babinski Bilateral - normal Psychiatric: Positive: Normal Diagnostics - Vital Signs Vital Signs Temp Pulse Resp BP Pulse Ox 10/17/18 22:25 98.2 F 96 16 136/69 100 10/17/18 20:25 99.3 F 94 16 167/106 98 - Laboratory Lab Statement: Any lab studies that have been ordered have been reviewed, and results considered in the medical decision making process. Back Pain Course/Dx - Course Course Of Treatment: 53 year old female presents with back pain for the past couple weeks. She states that she is a developing numbness and tingling down the right leg. She states that it hurts more to walk. No weakness. No urinary symptoms. No loss of bowel or bladder. No saddle anesthesia. No fever. No new injury. Had an MRI yesterday. She states that she was given Percocet for teeth infection and it was helping with the pain but does not have the teeth any worse so it not taking the percocet anymore. she states she' s had this pain in the past and Flexeril also worked well. On exam tenderness over SI joint of right-sided back. No midline tenderness. Positive straight leg raise. Neurovascularly intact. was able to ambulate to the room. Negative Babinski's. Able to move around the bed without discomfort. We'll give a short course of Flexeril. Told follow up with neurosurgery. Patient understands agrees with plan. - Diagnoses Differential Diagnosis/HQI/PQRI: Positive: Herniated Disc, Strain, Sprain Provider Diagnoses: Sciatica, Back pain Discharge - Sign-Out/Discharge Documenting (check all that apply): Patient Departure Patient Received Moderate/Deep Sedation with Procedure: No - Discharge Plan Condition: Good Disposition: HOME Prescriptions: Cyclobenzaprine TAB* [Flexeril 10 MG TAB*] 10 mg PO TID PRN #15 tab PRN Reason: Pain Patient Education Materials: Sciatica (ED) Referrals: Rosa Schroeder MD [Primary Care Provider] - Dylan Lazar MD [Medical Doctor] - Additional Instructions: Take muscle relaxers three times a day Use ibuprofen or Tylenol for pain every 6 hours ice/heat area, move as much as possible Follow up with neurosurgery Return to ED if develop any new or worsening symptoms - Billing Disposition and Condition Condition: GOOD Disposition: Home
[2018-10-17 23:33] VITALS: BP 139/67
== END 2018-10-17 23:32 | disposition home or self-care (01) ==
LOC: ED 20:12
DX: M54.30 Sciatica, unspecified side (principal); M54.9 Dorsalgia, unspecified; M51.36 Other intervertebral disc degeneration, lumbar region; M19.90 Unspecified osteoarthritis, unspecified site; F17.210 Nicotine dependence, cigarettes, uncomplicated; Z88.2 Allergy status to sulfonamides; Z88.0 Allergy status to penicillin; Z88.1 Allergy status to other antibiotic agents
CPT/HCPCS: 99282; A9270-GY

== ENCOUNTER 2018-11-21 21:52 | Emergency (ER) | payer MEDICARE, MEDICAID ==
--- OUTSIDE RECORDS SUMMARY | 2018-11-21 22:29 | XMS REPORT | Continuity of Care Document ---
:1965 External Reference #:[id number] Author Name Elva Brennan Care Team Providers Name Role Phone Rosa Schroeder M.D. Primary Care Physician Unavailable Payers Date Identification Numbers Payment Provider Subscriber Effective: 1991 Policy Number: [id number] Medicare Taryn Alfaro PayID: [id number] [address] [place] [address] Policy Number: [id number] Medicaid Taryn Alfaro Group Name: 1 [address] PayID: [id number] [place] [address] Advance Directives Description No Information Available Problems [...] severe mental illness Lives With Assisted living [facility] since March 2018. Was at [facility] from October-Apr 2018 Occupation Unemployed Occupation Disabled Tobacco Use Start: Unknown Patient was a states she is cigarette smoker, quitting current status is unknown ETOH Use 07/26/2018 Denies alcohol use Recreational Drug Use Former Drug User Tobacco Use Start: Unknown Patient is a former End: Unknown smoker Smoking Status Reviewed: 10/26/18 Patient is a former smoker Exercise Type/Frequency Exercises rarely Allergies, Adverse Reactions, Alerts Date Description Reaction Status Severity Comments 05/10/2017 Latex Urticaria Active 05/10/2017 Sulfa Antibiotics hives Active 05/10/2017 Penicillins Urticaria Active 05/10/2017 Nalbuphine Active 05/10/2017 Perphenazine Active 05/10/2017 Ciprofloxacin dizziness Active 05/10/2017 Tramadol altered mental status Active 05/10/2017 [place] Active 05/08/2018 Lurasidone Active Moderate 05/22/2018 Metformin Diarrhea Active Medications Medication Date Status Form Strength Qnty SIG Indications Ordering Provider Levothyroxine 10/26 Active Tablets 200mcg 30tab 1 by mouth E03.9 Mayer Sodium s every day MD Lori on an empty stomach Polyethylene 10/19 Active Powder 3350NF 1020g 17g twice Lawrence Glycol 3350 /2018 m daily PO Kamille Denson M.D.,FACP Ramírez Swivel 10/19 Active Misc 5" 1unit folding M51.26 Lawrence Wheels/ s eboni pearl Adjustment as directed Adelina,FACP Holes/5" Cyclobenzaprine 10/19 Active Tablets 10mg 60tab take one Rosa HCL s tablet by Schroeder mouth three MD times a day as needed Gabapentin 10/02 Active Capsules 400mg 2 capsules at Ordering Provider Fluconazole 10/02 Active Tablets 150mg 2tabs 1 tab by B37.3 mouth x 1, john Schroeder repeat MD after 2 days if not better Anbesol Maximum 09/21 Active Gel 20% 27gm apply to gingiva Schroeder, 3x/day as MD needed for pain Nicoderm CQ 09/06 Active Patches 21mg/24HR 28uni apply one F17.210 24HR ts to skin Alexandre, every day MD Thomason 09/06 Active Caps 0184-2550 90cap one po tid R19.7 Part Unit s right Schroeder, before MD meals Onetouch Delica 09/04 Active Misc 150un test 4 E11.9 Mayer Lancets its times a day MD Lori Fine 33G Arnuity Ellipta 07/26 Active Aerosol 100mcg/Ac 30uni 1 puff t ts inhaled Schroeder, every day MD Depend 07/03 Active Misc 120un use four its times a day Schroeder, Underwear L/XL Flonase Allergy 06/23 Active Suspension 50mcg/Act 9.900 2 sprays in ml each Alexandre nostril twice a day Fiasp Flextouch 05/19 Active Solution 100Unit/M 30ml 22 units E11.65 Pen-Inject L per meal 3 MD Lori times daily Basaglar Kwikpen 05/19 Active Solution 100Unit/M 30ml 66 units Pen-Inject L once daily MD Lori Nicotrol 05/18 Active Inhaler 10mg 168un 1 Lawrence its cartridges D. Dewey, every 2 M.D.,FACP hours as needed Nystatin 10/15 Active Powder 559060Hii 90gm apply twice t/GM daily until Schroeder, rash clears Ventolin HFA 10/15 Active Aerosol 108(90Bas 8gm 2 by mouth e) every 4 Schroeder, mcg/Act hours as MD needed Onetouch Ultra 09/09 Active Strips 150un test up to Z79.4 Mayer Blue its 4 times MD Lori daily E11.65 E11.9 BD Pen 08/24/2017 Active Misc 32G 150units use 4 E11.9 Mayer Needle/Suzanna/Ultra X 4 times MD Katelyn Sandoval/32G X 4mm mm every day Depend Pant Extra 06/14/2017 Active Misc 120units use 4 x a Rosa Large day or as Schroeder, needed Olanzapine Active Tablets 5mg 90tabs one tab PO Rosa bid MD Alexandre Trazodone HCL Active Tablets 100m 90tabs 2 tab at Rosa g bedtime MD Alexandre Onetouch Ultra Mini Active Kit w/De 1units check bs E11.65 Lawrence rodgers up to Kamille Denson, three M.Kamille,FACP times daily Atorvastatin Active Tablets 20mg 90tabs take 1 Rosa Calcium tablet at Schroeder, bedtime Lamotrigine Active Tablets 100m 180tabs 1 by mouth Rosa g twice a Schroeder, day Losartan Potassium Active Tablets 50mg 90tabs 1 by mouth E11.65 Rosa every day MD Alexandre Loratadine Active Capsules 10mg 90caps once a day Rosa for Schroeder, allergies as needed Duloxetine HCL Active Caps DR 20mg 90caps 1 by mouth Rosa Part every day Schroeder, with 60mg MD tab Duloxetine HCL Active Caps DR 60mg 90caps 1 by mouth Rosa Part every day Schroeder, with 20mg MD tab Vitamin D3 Active Capsules 1000 180caps 1 by mouth Rosa Unit twice Schroeder, daily Lidoderm Active Patches 5% 60units 1 apply to Rosa affected Schroeder, area 12 MD hours on, 12 hours off Acetaminophen Active Tablets 325m 2 tablets Unknown g by mouth every 4 hours as needed for pain/fever Maalox Max Active Suspension 400- 30 Unknown 400- milliliter 40mg s by mouth /5ML q4hr as needed indigestio n Cetirizine HCL Active Tablets 10mg 1 by mouth Unknown every day Guaifenesin Active Tablets 200m take 3 Unknown g tabs PO bid prn congestion Ibu Active Tablets 600m 90tabs take one Rosa g tablet by Schroeder, mouth t.i.d prn pain Asmanex Twisthaler Active Aerosol 220m 2 puff Unknown 120 Metered Doses cg/I q.a.m. nh Hydroxyzine HCL Active Tablets 25mg 1 tablets Unknown by mouth tid as needed for anxiety Ondansetron Active Tablets 4mg dissolve Unknown Dispers one tablet orally every 8 hours as needed for nausea. Nicotine Gum 2 MG Active 1piece q 2 Unknown hours prn Percocet Active Tablets 5-32 60tabs 1 - 2 tabs Dylan 5mg by mouth Cady, every 4 - M.D. 6 hours as needed for pain. Clindamycin HCL 09/26/2018 Hx Capsules 300m 21caps 1 by mouth Other - g three Ordering 10/05/2018 times a Provider day for 10 days Gabapentin 09/06/2018 Hx Capsules 100m 60caps 2 tabs at Other - g bedtime Ordering 10/02/2018 Provider Azithromycin 07/26/2018 Hx Tablets 250m 6tabs 2 every Lawrence - g day for 1 Torsten. Janiya, 07/31/2018 day, then M.DJarred,FACP 1 every day Levothyroxine 07/17/2018 Hx Tablets 175m 30tabs take E03.9 Mayer Sodium - cg 175mcg MD Lori 10/26/2018 daily on an empty stomach Methylprednisolone 06/29/2018 Hx TBPK 4mg 21units take as Miguel - instructed Jonah, 07/21/2018 per samuel LAWSON dose pack instructio ns Naproxen 06/29/2018 Hx Tablets 500m 14tabs take 1 Lawrence - g tablet Kamille Denson, 10/02/2018 twice M.D.,FACP daily with food prn Mucinex DM 06/23/2018 Hx Tablets ER 30-6 14tabs one po bid Rosa - 12HR 00mg Schroeder, 07/03/2018 Ibuprofen 05/29/2018 Hx Tablets 600m 30tabs 1 po three Rosa - g times a Schroeder, 07/03/2018 day as MD needed for pain, take with food Clindamycin 05/22/2018 Hx Gel 1% 60gm apply to R15.1 Rosa Phosphate - affected Schroeder, 07/03/2018 area twice MD a day for 14 days Walker Auto 05/15/2018 Hx Misc 1-08/01units use this Rosa Glides/5 Adjustment - 8" to Schroeder, Holes/-8" 10/19/2018 ambulate MD daily for unsteady gait Shower Chair 05/15/2018 Hx 1units use when Rosa - taking a Schroeder, 07/03/2018 shower for MD unsteady gait Metformin HCL ER 05/12/2018 Hx Tablets ER 500m 90tabs take 1 Rosa - 24HR g tablet by Alexandre, 05/22/2018 mouth once MD a day with dinner Januvia 05/08/2018 Hx Tablets 50mg 90tabs one by E11.65 Rosa - mouth Schroeder, 07/18/2018 daily MD Depend Adjustable 05/08/2018 Hx Misc 120units use four R15.1 Rosa Underwear L/XL - times a Schroeder, 07/03/2018 day MD Exercise 05/08/2018 Hx Pt allowed E11.65 Rosa - to engage Alexandre, 07/03/2018 in MD exercise at facilities under direct supervisio n of staff Tresiba Flextouch 10/13/2017 Hx Solution 100U 15ml 100 units E11.65 Chap[place] - Pen-Inject nit/ at bedtime Pachikara 05/08/2018 Adelina HECTOR Losartan Potassium 10/13/2017 Hx Tablets 25mg 30tabs 1 by mouth E11.65 [place] - once a day Pachikara 05/08/2018 Adelina Hydrocodone-Acetami 10/10/2017 Hx Tablets 5-32 20tabs 1 tab Chapo nophen - 5mg every 12h Pachikara 05/08/2018 as needed , Adelina Tresiba Flextouch 09/19/2017 Hx Solution 100U 15ml 60 units E11.65 [place] - Pen-Inject nit/ at bedtime Pachikara 10/13/2017 Adelina HECTOR Onetouch Ultrasoft 08/31/2017 Hx Misc 100units test blood E11.9 Alyson Mar - 2-3 a day Kamille Denson, 09/04/2018 or as Adelina,FACP needed Onetouch Ultra Mini 08/31/2017 Hx Lancets 100units check bs Chapo - twice Pachikara 05/08/2018 daily , Adelina Onetouch Ultra Mini 08/31/2017 Hx Strips 100units test up to E11.9 Lawrence Denson, 09/09/2017 times MMarkel,FACP daily last visit:08/17 Mucinex 08/28/2017 Hx Tablets ER 600m 20tabs 1 po bid Lawrence Gallagher 12HR g prn Kamille Denson, 05/08/2018 M.D.,FACP Doxycycline 08/28/2017 Hx Capsules 100m 13caps 1 by mouth Unknown Monohydrate - g twice a 09/04/2017 day x 7 days Tresiba Flextouch 08/26/2017 Hx Solution 200U 18ml 30u SC in Lawrence - Pen-Inject nit/ Am and 70u Kamille Denson, 09/19/2017 ML SC in PM M.DJarred,FACP Azithromycin 08/26/2017 Hx Tablets 250m 2 tabs by Unknown - g mouth on 08/31/2017 day 1; 1 tab by mouth every day on days 2-5 Tramadol HCL 08/26/2017 Hx Tablets 50mg 30tabs 1 tab by Lawrence Denson, 09/28/2017 three M.DJarred,FACP times a day Fluconazole 08/22/2017 Hx Tablets 150m 2tabs one by Lawrence gong may Kamille Denson, 05/08/2018 repeat in M.D.,FACP 3 days as needed Lancets 28G 08/08/2017 Hx Misc 28G 100units use with [place] - one touch Pachikara 08/31/2017 meterM.D. check bs daily Onetouch 08/08/2017 Hx Strips 100units test twice [place] - daily and Pachikara 08/31/2017 as needed , Adelina Janumet 07/15/2017 Hx Tablets 50-5 60tabs 1 by mouth E11.9 [place] - 00mg twice a Pachikara 05/08/2018 day , Adelina Glucocom Blood 07/03/2017 Hx Kit W/De 1units one touch Erik Glucose Monitoring - [facility] glucometer Kavita, System 08/31/2017 to measure M.D. blood sugar daily Nicotrol 06/13/2017 Hx Inhaler 10mg 168units use 4-5 F17.21 Chap[place] - times 0 [facility] 05/08/2018 daily , M.D. Clotrimazole 06/13/2017 Hx Cream 1% 90gm apply B37.9 [place] - twice [facility] 05/08/2018 daily , M.D. Acetaminophen-Codei 05/26/2017 Hx Tablets 300- 20tabs 1 tab by Chapo ne #3 - 30mg mouth [facility] 05/08/2018 every 4-6 , M.D. hours as needed for pain Ibuprofen Hx Tablets 600m as needed Home - g Paty 05/08/2018 [employer] Ondansetron Hx Tablets 8mg every 6-8 Home - Dispers hours as , Paty 05/08/2018 needed [employer] Pantoprazole Sodium Hx Tablets DR 40mg 30tabs take 1 [place] - tablet by [facility] 05/08/2018 mouth once , M.D. daily Lamotrigine Hx Tablets 150m take 1 Unknown - g tablet by 05/08/2018 mouth twice a day Sertraline HCL Hx Tablets 100m Take 1+1/2 Unknown - g Tablets By 05/08/2018 Mouth Once Daily Novolog Flexpen Hx Solution 100U Inject 15 Unknown - Unknown Pen-Inject nit/ Units Subq ML Three Times A Day With Meals Cyclobenzaprine HCL Hx Tablets 10mg as needed Unknown - 09/28/2017 Latuda Hx Tablets 80mg daily Unknown - 05/08/2018 Levothyroxine Hx Tablets 50mc 90tabs 1 tab [place] Sodium - g daily in Pachikara 05/08/2018 the empty , M.D. stomach Levothyroxine Hx Tablets 200m 90tabs 1 tab [place] Sodium - cg daily am [facility]05/08/2018 in the , M.D. empty stomach Naproxen Hx Tablets 500m 60tabs twice [place] - g daily [facility] 07/15/2017 , M.D. Lantus Solostar Hx Solution 100U 15ml 30 units Lawrence - Pen-Inject nit/ SC in Am, DJarred Denson, 08/26/2017 ML and 70 M.D.,FACP units SC a hs Atorvastatin Hx Tablets 40mg 90tabs take one [place] Calcium - tablet by Ayla 05/08/2018 mouth , MJarredDJarred every day Pictonix Hx 40 mg Unknown - Unknown daily Novalog Hx 10 units Unknown - before 05/08/2018 meals Levothyroxine Hx Tablets 150m 90tabs 1 by mouth E03.9 Rosa Sodium - cg every day Schroeder, 07/17/2018 Humalog Kwikpen Hx Solution 100U 9ml 4-10 Units E11.65 Rosa - Pen-Inject nit/ SQ three Schroeder, 05/19/2018 ML times a MD day, at mealtime, per sliding scale instructio ns Metformin HCL Hx Tablets 500m 1 by mouth Unknown - g twice a 05/08/2018 day Naproxen Hx Tablets 375m 180tabs twice a Rosa - g day with Schroeder, 07/03/2018 food MD Gabapentin Hx Capsules 400m 270caps take one Rosa - g capsule by Schroeder, 09/06/2018 mouth 3 MD times a day Lantus Solostar Hx Solution 100U 45ml 40 units Rosa - Pen-Inject nit/ twice Schroeder, 05/22/2018 ML daily Lantus Hx Solution 100U 66 units Unknown - nit/ subcutaneo 09/05/2018 ML us q.a.m. Miralax Hx Powder 500units 17 grams Rosa - by mouth Schroeder, 10/19/2018 every day as needed Medications Administered in Office Medication Date Status Form Strength Qnty SIG Indications Ordering Provider Depomedrol Administered Injection Naveed F 40MG 018 MD Venecia Immunizations CPT Code Status Date Vaccine Lot # [id number] Given 05/01/2018 Influenza Virus Vaccine, Quadrivalent, Split, Preservative Free Vital Signs Date Vital Result Comment 10/26/2018 3:42pm Height 67 inches 5'7" Weight 260.00 lb w/ shoes Heart Rate 98 /min BP Systolic Sitting 157 mmHg BP Diastolic Sitting 109 mmHg BMI (Body Mass Index) 40.7 kg/m2 10/19/2018 10:55am Height 67 inches 5'7" Weight 264.00 lb Heart Rate 109 /min BP Systolic Sitting 138 mmHg BP Diastolic Sitting 80 mmHg O2 % BldC Oximetry 98 % BMI (Body Mass Index) 41.3 kg/m2 10/18/2018 1:08pm Height 67 inches 5'7" Weight 262.00 lb BP Systolic Sitting 140 mmHg BP Diastolic Sitting 80 mmHg Pain Level 8 BMI (Body Mass Index) 41.0 kg/m2 10/02/2018 2:58pm Height 67 inches 5'7" Weight [...] Result H/L Range Note Laboratory test finding 10/26/2018 [facility] Glucose Random 158 Hemoglobin A1c 8.0 High 5-7 Laboratory test 08/22/2018 [facility] Point of 202 mg/dL High 70-100 1 finding [address] [facility] [address] [phone] CBC Auto Diff 08/22/2018 [facility] White Blood 10.7 N 3.5- 10.[address] Count 10^3/[place] [address] [phone] Red Blood Count 4.66 10^6/uL N 4.00-5.40 [...] Cells % 0 Comp Metabolic Panel 08/22/2018 [facility] Sodium 139 mmol/L N 135-[address] [place] [address] [phone] Potassium 4.7 mmol/L N 3.5-5.0 Chloride 104 [...] Non- 61.0 >60 Egfr 73.8 >60 2 Laboratory test 08/22/2018 [facility] Acetaminophen < 15 g/mL [address] [place] [address] [phone] Alcohol < 10 mg/dL N <10 Salicylate < 2.50 mg/dL <30 TSH (Thyroid Stim Horm) 8.26 mcIU/mL High 0.34-5.60 Laboratory test 08/22/2018 [facility] Point of 321 mg/dL High 70-100 [address] [place] [address] [phone] CBC Auto Diff 08/19/2018 [facility] White Blood 9.3 N 3.5- 10.[address] Count 10^3/[place] [address] [phone] Red Blood Count 4.42 10^6/uL N 4.00-5.40 [...] Cells % 0.1 Comp Metabolic Panel 08/19/2018 [facility] Sodium 139 mmol/L N 135-[address] [place] [address] [phone] Chloride 108 mmol/L N 101-111 Co2 Carbon [...] 47 U/L High 13-39 Laboratory test 08/19/2018 [facility] HCG 2.61 mIU/mL [address] [place] [address] [phone] Acetaminophen < 15 g/mL 7 Alcohol < 10 mg/dL N <10 Salicylate < 2.50 mg/dL <30 TSH (Thyroid Stim Horm) 7.94 mcIU/mL High 0.34-5.60 Laboratory 08/17/2018 [facility] Point of Care 145 mg/dL High 70-100 8 test finding [address] [place] [address] [phone] Laboratory 08/15/2018 [facility] Miscellaneous See 9, [address] [place] [address] [phone] Comp 07/31/2018 [facility] Sodium 136 mmol/L N 135-[address] [place] [address] [phone] Potassium 4.9 mmol/L N 3.5-5.0 Chloride 104 [...] Egfr 93.8 >60 12 Lipid Profile 07/31/2018 [facility] Triglycerides 113 mg/dL 13 (Trig/Chol/HDL) [address] [place] [address] [phone] Cholesterol 94 mg/dL 14 HDL Cholesterol 34.8 mg/dL 15 LDL Cholesterol 37 mg/dL 16 Laboratory test finding 07/31/2018 [facility] GGTP 50 U/L N 9- 64.[address] [place] [address] [phone] Hemoglobin A1c (Glyco HGB) 8.3 % High 4.0-5.6 18 Laboratory test 07/20/2018 [facility] Point of Care 78 mg/dL N 70-100 [address] [place] [address] [phone] CBC Auto Diff 07/20/2018 [facility] White Blood 8.8 10^3/uL N 3.5-10.[address] [place] [address] [phone] Red Blood Count 4.30 10^6/uL N 4.00-5.40 [...] Cells % 0 Basic Metabolic Panel 07/20/2018 [facility] Sodium 140 mmol/L N 135-[address] [place] [address] [phone] Potassium 4.0 mmol/L N 3.5-5.0 Chloride 108 mmol/L N 101-111 Co2 Carbon Dioxide 26 mmol/L N 22-32 Anion Gap 6 mmol/L N 2-11 Glucose 82 mg/dL N 70-100 Blood Urea Nitrogen 13 mg/dL N 6-24 Creatinine 0.71 mg/dL N 0.51-0.95 BUN/Creatinine Ratio 18.3 N 8-20 Calcium 9.3 mg/dL N 8.6-10.3 Egfr Non- 86.4 >60 Egfr 104.6 >60 20 CBC Auto 07/10/2018 [facility] White Blood 14.1 10^3/uL High 3.5-10.[address] [place] [address] [phone] Red Blood Count 4.77 10^6/uL N 4.00-5.40 [...] Blood Cells % 0 Urinalysis Profile 07/10/2018 [facility] Urine Color Yellow [address] [place] [address] [phone] Urine Appearance Cloudy Urine Specific Hermon 1.017 N 1.010-1.030 Urine pH 5.0 N [...] Present Abnormal Absent Comp Metabolic Panel 07/10/2018 [facility] Sodium 136 mmol/L N 135-145 [address] [place] [address] [phone] Potassium 4.6 mmol/L N 3.5-5.0 Chloride 102 [...] Egfr 65.9 >60 21 Laboratory test 07/10/2018 [facility] Acetaminophen < 15 g/mL [address] [place] [address] [phone] Alcohol < 10 mg/dL N <10 Salicylate < 2.50 mg/dL <30 TSH (Thyroid Stim Horm) 9.45 mcIU/mL High 0.34-5.60 Urine Drug 07/10/2018 [facility] Amphetamine Ur None Detected None Detect SCR ED & [address] Screen Pain Clinic [place], [place] [id number] [phone] Barbiturates Urine Screen None Detected None Detect Benzodiazepine Urine Screen None Detected None Detect Urine Cannabinoids Screen None Detected None Detect Urine Cocaine Screen None Detected None Detect Urine Opiates Screen None Detected None Detect Urine Phencyclidine Screen None Detected None Detect 23 Urine Culture 07/10/2018 [facility] Urine Culture SEE RESULT [address] BELOW Sensitivities [place], [place] [id number] [phone] Laboratory test 06/26/2018 [facility] Point of Care 143 mg/dL High 70-100 [address] Glucose [place], [place] [id number] [phone] Laboratory test 06/26/2018 [facility] Point of Care 72 mg/dL N 70-100 [address] Glucose [place], [place] [address] [phone] Laboratory test 06/26/2018 [facility] Point of Care 98 mg/dL N 70-100 [address] Glucose [place], [place] [address] [phone] Urine Drug SCR 06/26/2018 [facility] Amphetamine Ur None None ED [facility] [address] Screen Detected Detect [place], [place] [id number] [phone] Barbiturates Urine Screen None Detected None Detect Benzodiazepine Urine Screen None Detected None Detect Urine Cannabinoids Screen None Detected None Detect Urine Cocaine Screen None Detected None Detect Urine Opiates Screen None Detected None Detect Urine Phencyclidine Screen None Detected None Detect 28 CBC Auto 06/26/2018 [facility] White Blood 10.9 10^3/uL High 3.5-10.[address] [place] [address] [phone] Red Blood Count 4.42 10^6/uL N 4.00-5.40 [...] Cells % 0 Comp Metabolic Panel 06/26/2018 [facility] Sodium 137 mmol/L N 135-[address] [place] [address] [phone] Potassium 4.3 mmol/L N 3.5-5.0 Chloride 105 [...] Egfr 95.6 >60 29 Urinalysis Profile 06/26/2018 [facility] Urine Color Straw [address] [place] [address] [phone] Urine Appearance Clear Urine Specific Hermon 1.005 Low 1.010-1.030 Urine pH 6.0 N 5-9 Urine Urobilinogen Negative Negative Urine Ketones Negative Negative Urine Protein Negative Negative Urine Leukocytes Negative Negative Urine Blood Negative Negative Urine Nitrite Negative Negative Urine Bilirubin Negative Negative Urine Glucose Negative Negative Laboratory test 06/26/2018 [facility] Acetaminophen < 15 g/mL [address] [place] [address] [phone] Alcohol < 10 mg/dL N <10 Salicylate < 2.50 mg/dL <30 Lactic Acid 0.9 mmol/L N 0.5-2.0 31 CBC Auto Diff 05/18/2018 [facility] White Blood 10.8 10^3/uL N 3.5-10.[address] [place] [address] [phone] Red Blood Count 4.33 10^6/uL N 4.00-5.40 [...] Cells % 0.1 Comp Metabolic Panel 05/18/2018 [facility] Sodium 139 mmol/L N 135-[address] [place] [address] [phone] Potassium 4.5 mmol/L N 3.5-5.0 Chloride 107 [...] Egfr 98.6 >60 32 Laboratory test 05/18/2018 [facility] Lipase < 10 U/L Low 11.0 -82.[address] [place] [address] [phone] Lactic Acid 1.1 mmol/L N 0.5-2.0 33 Laboratory test 05/15/2018 [facility] C Difficile PCR SEE RESULT [address] [place] [address] [phone] Laboratory test 05/11/2018 [facility] Glucose 342 mg/dL High 70-[address] Confirmatory 00 [place] [address] [phone] Laboratory test 05/11/2018 [facility] Point of Care 402 mg/dL High 70-1 [address] Glucose 00 [place] [address] [phone] Laboratory test 05/11/2018 [facility] Point of Care 426 mg/dL High 70-1 [address] Glucose 00 [place] [address] [phone] CBC Auto Diff 05/10/2018 [facility] White Blood Count 12.0 High 3.5- [address] 10^3/uL 10.8 [place], [place] [address] [phone] Red Blood Count 4.39 10^6/uL N 4.00-5.40 [...] Cells % 0.1 Comp Metabolic Panel 05/10/2018 [facility] Sodium 141 mmol/L N 135-[address] [place] [address] [phone] Potassium 4.9 mmol/L N 3.5-5.0 Chloride 107 [...] Egfr 90.2 >60 37 Laboratory test 05/10/2018 [facility] Lipase < 10 U/L Low 11.0 -82.[address] [place] [address] [phone] C Reactive Protein 6.43 mg/L N <8.01 Lactic Acid 1.2 mmol/L N 0.5-2.0 38 Urine Microalbumin 05/08/2018 [facility] Ur Microalbumin < 15.[address] (mg/L) [place] [address] [phone] Urine Creatinine 224.47 mg/dL Urine Microalbumin/Creatinine TNP <31 39 Laboratory test 05/08/2018 [facility] Hemoglobin A1c 9.7 High 5-7 finding Urinalysis Profile 11/02/2017 [facility] Urine Color Yellow [address] [place] [address] [phone] Urine Appearance Clear Urine Specific Hermon 1.018 N 1.010-1.030 Urine pH 5.0 N 5-9 Urine Urobilinogen Negative Negative Urine Ketones Negative Negative Urine Protein Negative Negative Urine Leukocytes Negative Negative Urine Blood Negative Negative Urine Nitrite Negative Negative Urine Bilirubin Negative Negative Urine Glucose 1+(50 mg/dL) Abnormal Negative Laboratory test 11/02/2017 [facility] Magnesium 1.9 mg/dL N 1.9-2.[address] [place] [address] [phone] Creatine Kinase(CK) 72 U/L N 10-223 Troponin-I (TnI) 0.03 ng/mL <0.04 Acetaminophen < 15 g/mL 40 Alcohol < 10 mg/dL N <10 Salicylate < 2.50 mg/dL <30 TSH (Thyroid Stim Horm) 1.79 mcIU/mL N 0.34-5.60 Urine Drug 11/02/2017 [facility] Amphetamine Ur None Detected None Detect SCR ED & [address] [place] [address] [phone] Barbiturates Urine Screen None Detected None Detect Benzodiazepine Urine Screen None Detected None Detect Urine Cannabinoids Screen None Detected None Detect Urine Cocaine Screen None Detected None Detect Urine Opiates Screen Presumptive Posi <SEE NOTE> Abnormal None Detect 41 Urine Phencyclidine Screen None Detected None Detect 42 Arterial Blood Gas 11/02/2017 [facility] PH Arterial 7.36 N 7.35-7.45 [address] [place] [address] [phone] Pco2 Arterial 50 mmHg High 35-45 Po2 Arterial 65 mmHg Low 80-100 O2 Saturation Arterial 91.1 % Low 95-98 Base Excess Arterial 2.1 High -2.0-2.0 43 Hco3 Arterial 26.4 mmol/L N 19-31 Laboratory test finding 11/02/2017 [facility] Ammonia 37 ?mol/L N 16-53 [address] [place] [address] [phone] Lactic Acid 1.0 mmol/L N 0.5-2.0 44 Comp Metabolic 11/02/2017 [facility] Potassium 4.4 mmol/L N 3.5-5.0 Panel [address] [place] [address] [phone] Chloride 107 mmol/L N 101-111 Co2 Carbon [...] mmol/L N 2-11 CBC Auto Diff 11/02/2017 [facility] White Blood 8.5 10^3/uL N 3.5-10.[address] [place] [address] [phone] Red Blood Count 4.40 10^6/uL N 4.0-5.4 [...] Cells % 0 CBC Auto Diff 10/02/2017 [facility] White Blood 10.3 10^3/uL N 3.5-10.[address] [place] [address] [phone] Red Blood Count 4.29 10^6/uL N 4.0-5.4 [...] Cells % 0 Comp Metabolic Panel 10/02/2017 [facility] Sodium 136 mmol/L N 133-[address] [place] [address] [phone] Potassium 4.5 mmol/L N 3.5-5.0 Chloride 103 [...] Egfr 90.7 >60 46 Laboratory test 10/02/2017 [facility] CRP High 3.53 mg/L [address] [place] [address] [phone] Laboratory test 09/28/2017 [facility] Hemoglobin A1c 9.1 High 5-7 finding Laboratory test 09/13/2017 [facility] Point of Care 179 mg/dL High 70-10 [address] Glucose 0 [place] [address] [phone] Laboratory test 09/13/2017 [facility] Point of Care 260 mg/dL High 70-10 [address] Glucose 0 [place] [address] [phone] Comp Metabolic 08/29/2017 [facility] Sodium 136 N 133-[address] mmol/L 45 [place] [address] [phone] Potassium 4.9 mmol/L N 3.5-5.0 Chloride 104 [...] Egfr 60.9 >60 50 Laboratory test 08/29/2017 [facility] Lipase < 10 U/L Low 11.0 -82.[address] [place] [address] [phone] CRP High Sensitivity 1.79 mg/L 51 Troponin-I (TnI) 0.00 ng/mL <0.04 Laboratory test 08/29/2017 [facility] B-Type 21 pg/mL [address] [place] [address] Peptide BNP [phone] CBC Auto Diff 08/29/2017 [facility] White Blood Count 9.1 10^3/ uL N 3.5-[address] 0.8 [place] [address] [phone] Red Blood Count 4.06 10^6/uL N 4.0-5.4 [...] Cells % 0 Comp Metabolic Panel 08/26/2017 [facility] Sodium 139 mmol/L N 133-[address] [place] [address] [phone] Potassium 5.0 mmol/L N 3.5-5.0 Chloride 105 [...] >60 Egfr 80.7 >60 53 Inr/Protime 08/26/2017 [facility] Inr 0.82 N 0.77-1.[address] [place] [address] [phone] Laboratory test 08/26/2017 [facility] Partial 27.7 seconds N 26.0-36.[address] [place] [address] [phone] CBC Auto Diff 08/26/2017 [facility] White Blood 9.0 10^3/uL N 3.5-10.[address] [place] [address] [phone] Red Blood Count 4.42 10^6/uL N 4.0-5.4 [...] Blood Cells % 0 Laboratory test 08/26/2017 [facility] Troponin-I 0.01 <0.[address] (TnI) ng/[place] [address] [phone] Laboratory test 08/25/2017 [facility] C Reactive 3.27 mg/L N < 5.00 [address] [place] [address] [phone] Venous Blood 08/25/2017 [facility] Venous Blood 7.48 High 7.33 -7.[address] [place] [address] [phone] Venous Pco2 31 mmHg Low 41-51 Venous Po2 98 mmHg High 35-45 Venous O2 Saturation 95.3 % High 70-80 Venous Blood Base Excess 0.1 N 0-4 55 Venous Bicarbonate Hco3 25.0 mmol/L N 24-28 CBC Auto Diff 08/25/2017 [facility] White Blood 8.9 10^3/uL N 3.5-10.[address] [place] [address] [phone] Red Blood Count 4.33 10^6/uL N 4.0-5.4 [...] Blood Cells % 0 Laboratory test 08/25/2017 [facility] Point of 289 mg/dL High 70-100 [address] [place] [address] [phone] Comp Metabolic 08/25/2017 [facility] Sodium 134 mmol/L N 133- [address] [place] [address] [phone] Potassium 4.8 mmol/L N 3.5-5.0 Chloride 101 [...] Egfr 88.3 >60 57 Urinalysis Profile 08/25/2017 [facility] Urine Color Yellow [address] [place] [address] [phone] Urine Appearance Clear Urine Specific Hermon 1.010 N 1.010-1.030 Urine pH 5.0 N 5-9 Urine Urobilinogen Negative Negative Urine Ketones Negative Negative Urine Protein Negative Negative Urine Leukocytes Negative Negative Urine Blood Negative Negative Urine Nitrite Negative Negative Urine Bilirubin Negative Negative Urine Glucose 3+(>=500 mg/dL) Abnormal Negative Laboratory test 08/25/2017 [facility] Point of 157 mg/dL High 70-100 58 finding 101 [facility] [address] [phone] Laboratory test 08/23/2017 [facility] Point of 224 mg/dL High 70-100 59 finding [address] [facility] [place] [address] [phone] Laboratory test 08/22/2017 [facility] Lactic Acid 1.3 mmol/L N 0.5-2.0 60 finding [address] [place] [address] [phone] Comp Metabolic 08/22/2017 [facility] Sodium 131 mmol/L Low 133 -145 Panel [address] [place] [address] [phone] Potassium 4.6 mmol/L N 3.5-5.0 Chloride 98 [...] mg/dL High 70-100 62 Laboratory test 08/22/2017 [facility] Magnesium 2.0 mg/dL N 1.9-2.7 finding [address] [place] [address] [phone] Creatine Kinase(CK) 121 U/L N 10-223 C Reactive Protein 4.62 mg/L N < 5.00 63 Troponin-I (TnI) 0.01 ng/mL <0.04 Laboratory test 08/22/2017 [facility] Glucose 417 mg/dL High 70-100 finding [address] [place] [address] [phone] Laboratory test 08/22/2017 [facility] Point of > 444 mg/dL High 70-100 64 finding 101 [facility] [place] [address] [phone] Urinalysis 08/22/2017 [facility] Urine Color Yellow Profile [address] [place] [address] [phone] Urine Appearance Cloudy Urine Specific Hermon 1.023 N 1.010-1.030 Urine pH 6.0 N [...] Present Abnormal Absent Urine Culture And 08/22/2017 [facility] Urine Culture SEE RESULT [address] [place] [address] [phone] CBC Auto Diff 08/22/2017 [facility] White Blood 8.9 10^3/uL N 3.5-[address] Count 0.8 [place] [address] [phone] Red Blood Count 4.19 10^6/uL N 4.0-5.4 [...] Cells % 0.1 Venous Blood Gas 08/22/2017 [facility] Venous Blood pH 7.42 N 7.33-7.[address] [place] [address] [phone] Venous Pco2 49 mmHg N 41-51 Venous Po2 36 mmHg N 35-45 Venous O2 Saturation 78.1 % N 70-80 Venous Blood Base Excess 6.3 High 0-4 66 Venous Bicarbonate Hco3 29.4 mmol/L High 24-28 Inr/Protime 08/22/2017 [facility] Inr 0.91 N 0.77-1.[address] [place] [address] [phone] Laboratory test 08/18/2017 [facility] Point of 180 mg/dL High 70-100 [address] [place] [address] Glucose [phone] Urinalysis 08/17/2017 [facility] Urine Color Yellow Profile [address] [place] [address] [phone] Urine Appearance Cloudy Urine Specific Hermon 1.016 N 1.010-1.030 Urine pH 5.0 N 5-9 Urine Urobilinogen Negative Negative Urine Ketones Negative Negative Urine Protein Negative Negative Urine Leukocytes Negative Negative Urine Blood Negative Negative Urine Nitrite Negative Negative Urine Bilirubin Negative Negative Urine Glucose 3+(>=500 mg/dL) Abnormal Negative Urine Drug 08/17/2017 [facility] Amphetamine Ur None Detected None Detect SCR ED & [facility] Screen Pain Clinic [place], [place] [phone] Barbiturates Urine Screen None Detected None Detect Benzodiazepine Urine Screen None Detected None Detect Urine Cannabinoids Screen None Detected None Detect Urine Cocaine Screen None Detected None Detect Urine Opiates Screen None Detected None Detect Urine Phencyclidine Screen None Detected None Detect 68 Laboratory test 08/17/2017 [facility] Point of 276 mg/dL High 70-100 69 finding 101 [facility] Glucose [place], [place] [address]907 [phone] Laboratory test 08/17/2017 [facility] Point of > 444 High 70- 100 70 finding 101 [facility] Glucose mg/[place] [address] [phone] Venous Blood 08/17/2017 [facility] Venous Blood 7.36 N 7.33- 7.43 Gas [facility] [place] [address] [phone] Venous Pco2 48 mmHg N 41-51 Venous Po2 29 mmHg Low 35-45 Venous O2 Saturation 59.9 % Low 70-80 Venous Blood Base Excess 1.1 N 0-4 71 Venous Bicarbonate Hco3 24.9 mmol/L N 24-28 CBC Auto Diff 08/17/2017 [facility] White Blood 10.8 10^3/uL N 3.5-10.[address] [place] [address] [phone] Red Blood Count 4.74 10^6/uL N 4.0-5.4 [...] Cells % 0 Comp Metabolic Panel 08/17/2017 [facility] Sodium 133 mmol/L N 133-145 [address] [place] [address] [phone] Potassium 4.9 mmol/L N 3.5-5.0 Chloride 101 [...] mg/dL High 70-100 73 Laboratory test 08/17/2017 [facility] Acetaminophen < 15 g/mL [address] [place] [address] [phone] Alcohol < 10 mg/dL N <10 Salicylate < 2.50 mg/dL <30 TSH (Thyroid Stim Horm) 2.76 mcIU/mL N 0.34-5.60 Lamotrigine (Lamictal) 4.2 g/mL 2.5 - 15.0 75 Laboratory test 08/17/2017 [facility] Point of > 444 High 70- 100 [address] Care Glucose mg/[place] [address] [phone] Laboratory test 08/09/2017 [facility] Point of 266 mg/dL High 70-100 [address] [place] [address] [phone] CBC Auto Diff 08/08/2017 [facility] White Blood 11.9 High 3.5- 10.[address] Count 10^3/[place] [address] [phone] Red Blood Count 4.78 10^6/uL N 4.0-5.4 [...] Cells % 0 Comp Metabolic Panel 08/08/2017 [facility] Sodium 136 mmol/L N 133-145 [address] [place] [address] [phone] Potassium 4.3 mmol/L N 3.5-5.0 Chloride 100 [...] Egfr 95.9 >60 78 Laboratory test 08/08/2017 [facility] Acetaminophen < 15 g/mL 79 finding [address] [place] [address] [phone] Alcohol < 10 mg/dL N <10 Salicylate < 2.50 mg/dL <30 TSH (Thyroid Stim Horm) 2.67 mcIU/mL N 0.34-5.60 Lamotrigine (Lamictal) 2.5 g/mL 2.5 - 15.0 80 Urinalysis Profile 08/08/2017 [facility] Urine Color Yellow [address] [place] [address] [phone] Urine Appearance Cloudy Urine Specific Hermon 1.022 N 1.010-1.030 Urine pH 6.0 N 5-9 Urine Urobilinogen Negative Negative Urine Ketones Negative Negative Urine Protein Negative Negative Urine Leukocytes Negative Negative Urine Blood Negative Negative Urine Nitrite Negative Negative Urine Bilirubin Negative Negative Urine Glucose 3+(>=500 mg/dL) Abnormal Negative Urine Drug 08/08/2017 [facility] Amphetamine Ur None Detected None Detect SCR ED & 101 [facility] [place] [address] [phone] Barbiturates Urine Screen None Detected None Detect Benzodiazepine Urine Screen None Detected None Detect Urine Cannabinoids Screen None Detected None Detect Urine Cocaine Screen None Detected None Detect Urine Opiates Screen None Detected None Detect Urine Phencyclidine Screen None Detected None Detect 81 Laboratory test 08/04/2017 [facility] Point of Care 258 mg/dL High 70-100 [address] Glucose [place], [place] [address]48143 [phone] Laboratory test 08/04/2017 [facility] Point of Care 175 mg/dL High 70-100 [address] Glucose [place], [place] [address] [phone] Laboratory test 08/04/2017 [facility] Point of Care 284 mg/dL High 70-100 [address] [place] [address] [phone] Urinalysis 08/03/2017 [facility] Urine Color Yellow Profile [address] [place] [address] [phone] Urine Appearance Cloudy Urine Specific Hermon 1.012 N 1.010-1.030 Urine pH 5.0 N [...] Crystals Present Abnormal Absent Urine Drug 08/03/2017 [facility] Amphetamine Ur None Detected None Detect SCR ED & [address] Screen Pain [facility] [place], [place] [address]59 [phone] Barbiturates Urine Screen None Detected None Detect Benzodiazepine Urine Screen None Detected None Detect Urine Cannabinoids Screen None Detected None Detect Urine Cocaine Screen None Detected None Detect Urine Opiates Screen None Detected None Detect Urine Phencyclidine Screen None Detected None Detect 85 Urine Culture And 08/03/2017 [facility] Urine SEE RESULT [address] [place] [address] [phone] CBC Auto Diff 08/03/2017 [facility] White Blood 10.9 High 3.5- [address] Count 10^3/uL 0.8 [place] [address] [phone] Red Blood Count 4.61 10^6/uL N 4.0-5.4 [...] Cells % 0 Comp Metabolic Panel 08/03/2017 [facility] Sodium 132 mmol/L Low 133-[address] [place] [address] [phone] Potassium 4.6 mmol/L N 3.5-5.0 Chloride 98 [...] Egfr 87.1 >60 87 Laboratory test 08/03/2017 [facility] Acetaminophen < 15 g/mL [address] [place] [address] [phone] Alcohol < 10 mg/dL N <10 Salicylate < 2.50 mg/dL <30 TSH (Thyroid Stim Horm) 0.60 mcIU/mL N 0.34-5.60 Laboratory test 08/02/2017 [facility] Troponin-I 0.01 <0.[address] (TnI) ng/[place] [address] [phone] CBC Auto Diff 08/02/2017 [facility] White Blood 13.8 High 3.5- 10.[address] Count 10^3/[place] [address] [phone] Red Blood Count 4.64 10^6/uL N 4.0-5.4 [...] Cells % 0 Comp Metabolic Panel 08/02/2017 [facility] Sodium 133 mmol/L N 133-[address] [place], [place] [address] [phone] Potassium 4.7 mmol/L N 3.5-5.0 Chloride 101 [...] Egfr 98.7 >60 89 Laboratory test 08/02/2017 [facility] Troponin-I 0.03 <0.[address] (TnI) ng/mL [place], [place] [address]55 [phone] Urine Culture And 08/01/2017 [facility] Urine Culture SEE 90, Sensitivities [address] RESULT 91 [place] [address] BELOW [phone] Laboratory test 06/13/2017 [facility] Hemoglobin 9.2 High 5-7 finding A1c Laboratory test 06/03/2017 [facility] Point of Care 184 mg/dL High 70-100 [address] Glucose [place], [place] [address] [phone] Laboratory test 06/03/2017 [facility] Point of Care 256 mg/dL High 70-100 [address] Glucose [place], [place] [address]353 [phone] Laboratory test 06/03/2017 [facility] Point of Care 329 mg/dL High 70-100 [address] [place] [address] [phone] Laboratory test 06/03/2017 [facility] Point of Care 384 mg/dL High 70-100 [address] Glucose [place], [place] [address]58 [phone] Laboratory test 06/03/2017 [facility] Point of Care > 444 High 70-100 [address] Glucose mg/[place] [address] [phone] Laboratory test 06/03/2017 [facility] Point of Care > 444 High 70-100 [address] Glucose mg/dL [place], [place] [address] [phone] 1 Ratings Analyst: [id number] 2 Because ethnic data is not always [...] 5 Kidney failure <15 (or dialysis) 3 Therapeutic concentration: <50 ug/mL Toxic concentration: >120 ug/mL 4 Ratings Analyst: [id number] 5 Because ethnic data is not always [...] <50 ug/mL Toxic concentration: >120 ug/mL 8 Ratings Analyst: [id number] Test Result Flag Unit RefValue TRYPSIN [...] cannot be used interchangeably. Test Performed by: [facility] [address] [place] [address] 11 [id number] 12 Because ethnic data is not always [...] 130-159 High: 160-189 Very High: >189 17 [id number] 18 Therapeutic target for the treatment of diabetes mellitus patients is <7% HBA1C, and in selective patients <6.0%. Please refer to [employer] diabetic care guidelines for further information. 19 Ratings Analyst: [id number] 20 Because ethnic data is not always [...] [address]: Sendy Mcdowell MD Acct: [id number] Unit: [id number] AGE: 53 Location: ED Re07/10/18 SEX: F Status: DEP ER SPEC: [id number] ANKUR: 07/10/[address]: Sendy Mcdowell MD REQ: [id number] RECD: 07/10/18 STATUS: TASHA [place] DR: Chapo Aguila MD _ SOURCE: URINE SPDESC: ORDERED: Urine Culture Procedure Result Reported Site Urine Culture Final 07/12/18- 0845 ML No growth of clinically significant organisms * ML - Main Lab . END OF REPORT DEPARTMENT OF PATHOLOGY, [address] [place] [address] Tay Gamboa M.D. Director [facility] # [id number] 25 Ratings Analyst: [id number] Ratings Analyst: [id number] 27 Ratings Analyst: [id number] 28 The urine specimen was tested at [...] <50 ug/mL Toxic concentration: >120 ug/mL 31 MNS Severe Sepsis and Septic Shock Management Bundle [...] 5 Kidney failure <15 (or dialysis) [address] [facility] Severe Sepsis and Septic Shock Management Bundle Measure requires all lactic acids initially measuring >2.0 mmol/L be repeated. 34 SEE RESULT BELOW Name: TARYN ALFARO Cameron : [address]: Danya Marquez MD Acct: [id number] Unit: [id number] AGE: 52 Location: [facility] Re05/15/18 SEX: F Status: REG REF SPEC: [id number] ANKUR: 05/15/18-[address] [facility] [address]: Danya Marquez MD REQ: [id number] RECD: 05/15/18 STATUS: COMP _ SOURCE: STOOL SPDESC: ORDERED: C. diff PCR Procedure Result Reported Site Stool Specimen Description Final 05/15/18- 1306 ML Stool Color [place] Stool Form Semi-formed Stool Consistency Firm C. difficile PCR Final 05/15/18- 1306 ML Test not performed * ML - Main Lab . END OF REPORT DEPARTMENT OF PATHOLOGY, [address] [place] [address] Tay Gamboa M.D. Director [facility] # [id number] 35 Ratings Analyst: [id number] 36 Ratings Analyst: [id number] 37 Because ethnic data is not always [...] 5 Kidney failure <15 (or dialysis) [address] [facility] Severe Sepsis and Septic Shock [...] Reference ranges based on room air. 44 [facility] Severe Sepsis and Septic Shock [...] Average risk: 1.00-3.00 High risk: >3.00 48 Ratings Analyst: [id number] 49 Ratings Analyst: [id number] 50 Because ethnic data is not always [...] Reference ranges based on room air. 56 Ratings Analyst: [id number] 57 Because ethnic data is not always [...] 5 Kidney failure <15 (or dialysis) 58 Ratings Analyst: [id number] 59 Ratings Analyst: [id number] 60 [facility] Severe Sepsis and Septic Shock [...] dialysis) 62 Critical Result [id number] Called to [id number] at: 21:48:40 by:[email or web address] Read back by:[id number] 63 Acute inflammation: >10.00 64 Ratings Analyst: [id number] 65 SEE RESULT BELOW Name: TARYN ALFARO Cameron : [address]: Violeta Yusuf MD Acct: [id number] Unit: [id number] AGE: 52 Location: ED Re08/22/17 SEX: F Status: DEP ER SPEC: [id number] ANKUR: 08/22/[address] [facility] [address]: Violeta Yusuf MD REQ: [id number] RECD: 08/22/17 STATUS: COMP [facility]ICO DR: Chapo Aguila MD _ SOURCE: URINE SPDESC: ORDERED: Urine Culture Procedure Result Reported Site Urine Culture Final 08/23/17- 1607 ML Mixed seema; possible contamination. Suggest resubmission. * ML - MAIN LAB ([facility]) . END OF REPORT * ML=Testing performed at Main Lab DEPARTMENT OF PATHOLOGY, [address] [place] [address] Tay Gamboa M.D. Director [facility] # [id number] 66 Reference ranges based on room air. 67 Ratings Analyst: [id number] 68 The urine specimen was tested at the listed cutoffs: Drug class test level (ng/mL) Amphetamines 500 Barbiturates 200 Benzodiazepine metabolites 200 Cocaine metabolites 150 Cannabinoids 50 Opiates 300 Pcp 25 Specimen was received without chain of custody. Results should be used for medical purposes only. 69 Ratings Analyst: [id number] 70 Ratings Analyst: [id number] 71 Reference ranges based on room air. [...] dialysis) 73 Critical Result [id number] Called to [id number] at: 18:00:03 by:[id number] Read back by:[id number] 74 Therapeutic concentration: <50 ug/mL Toxic concentration: >120 ug/mL 75 ADDITIONAL INFORMATION This test was developed and its performance characteristics determined by [facility] in a manner consistent with CLIA requirements. This test has not been cleared or approved by the U.S. Food and Drug Administration. Test Performed by: [address] [id number] 76 Ratings Analyst: [id number] 77 Ratings Analyst: [id number] 78 Because ethnic data is not always [...] and its performance characteristics determined by [facility] in a manner consistent with CLIA requirements. This test has not been cleared or approved by the U.S. Food and Drug Administration. Test Performed by: [facility] [address] [place] [address] 81 The urine specimen was tested at the listed cutoffs: Drug class test level (ng/mL) Amphetamines 500 Barbiturates 200 Benzodiazepine metabolites 200 Cocaine metabolites 150 Cannabinoids 50 Opiates 300 Pcp 25 Specimen was received without chain of custody. Results should be used for medical purposes only. 82 Ratings Analyst: [id number] 83 Ratings Analyst: [id number] 84 Ratings Analyst: [id number] 85 The urine specimen was tested at the listed cutoffs: Drug class test level (ng/mL) Amphetamines 500 Barbiturates 200 Benzodiazepine metabolites 200 Cocaine metabolites 150 Cannabinoids 50 Opiates 300 Pcp 25 Specimen was received without chain of custody. Results should be used for medical purposes only. 86 SEE RESULT BELOW Name: TARYN ALFARO Cameron : [address]: Sendy Mcdowell MD Acct: [id number] Unit: [id number] AGE: 52 Location: ED Re08/03/17 SEX: F Status: REG ER SPEC: [id number] ANKUR: 08/03/[address]: Sendy Mcdowell MD REQ: [id number] RECD: 08/03/17 STATUS: COMP [facility] DR: Chapo Aguila MD _ SOURCE: URINE SPDESC: ORDERED: Urine Culture Procedure Result Reported Site Urine Culture Final 08/05/17- 1225 ML No growth of clinically significant organisms * ML - MAIN LAB ([facility]) . END OF REPORT * ML=Testing performed at Main Lab DEPARTMENT OF PATHOLOGY, [address] [place] [address] Tay Gamboa M.D. Director [facility] # [id number] 87 Because ethnic data is not always [...] 5 Kidney failure <15 (or dialysis) 90 [id number] 91 SEE RESULT BELOW Name: TARYN ALFARO : [address]: Any Ramirez MD Acct: [id number] Unit: [id number] AGE: 52 Location: [facility] Re08/01/17 SEX: F Status: DEP SKYE SPEC: [id number] ANKUR: 08/01/17-[address] [facility] [address]: Any Ramirez MD REQ: [id number] RECD: 08/02/17 STATUS: TASHA [place] DR: Chapo Aguila MD _ SOURCE: URINE SPDESC: ORDERED: Urine Culture COMMENTS: [id number] Procedure Result Reported Site Urine Culture Final 08/03/17- 125 ML Mixed seema; possible contamination. Suggest resubmission. * ML - MAIN LAB ([facility]) . END OF REPORT * ML=Testing performed at Main Lab DEPARTMENT OF PATHOLOGY, [address] [place] [address] Tay Gamboa M.D. Director [facility] # [id number] 92 Ratings Analyst: [id number] Ratings Analyst: [id number] Ratings Analyst: [id number] Ratings Analyst: [id number] Ratings Analyst: [id number] Ratings Analyst: [id number] Procedures Date Code Description Status 07/21/2018 72036 Inhalation [place] For Acute Airway Obstruction Completed W/Nebulizer/Inhaler 11/03/2017 93698 EKG, Interpretation Only Completed 10/26/2017 [id number] Diabetic Retinal Eye Exam Completed 10/11/2017 80774 Inject/Drain Joint/Bursa Major W/O US Completed 06/03/2017 09769 Carpal Tunnel Release Completed 06/03/2017 49670 Carpal Tunnel Release Completed 05/01/2016 [id number] Mammogram Completed 04/06/2016 83547 EEG Recording Awake & Drowsy Completed 04/03/2016 19212 EKG, Interpretation Only Completed 04/29/2015 38177 EEG Recording Awake & Drowsy Completed 04/16/2012 77129 EKG, Interpretation Only Completed 04/16/2012 06005 EKG, Interpretation Only Completed Encounters Type Date Location Provider Dx Diagnosis Office Visit 10/19/2018 [facility] Lawrence Simental M51.26 Other intervertebral 11:00a Medicine - [place] Adelina Denson,FACP disc displacement, Rd lumbar region E11.65 Type 2 diabetes mellitus with hyperglycemia K59.00 Constipation, unspecified Office Visit 10/18/2018 1:15p [facility] Consuelo Corrales M51.26 Other intervertebral Of [facility] PA-C disc displacement, lumbar region 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, lumbosacral region Office Visit 10/02/2018 3:00p Santo Schroeder MD I10 Essential (primary) Medicine - [place] hypertension Rd M54.16 Radiculopathy, lumbar region F17.211 Nicotine dependence, cigarettes, in remission E66.9 Obesity, unspecified B37.3 Candidiasis of vulva and vagina Office Visit 09/25/2018 3:00p [facility] Consuelo Corrales M54.16 Radiculopathy, Of Gang Rider PA-C lumbar region Office Visit 09/06/2018 2:20p Santo Schroeder, I10 Essential ( primary) Medicine - [place] [address] E11.65 Type 2 diabetes mellitus with hyperglycemia R19.7 Diarrhea, unspecified M54.41 Lumbago with sciatica, right side F17.210 Nicotine dependence, cigarettes, uncomplicated R68.84 Jaw pain F60.3 Borderline personality disorder Office Visit 07/26/2018 [facility] Lawrence Simental J40 Bronchitis, not 2:40p Jaylene Denson M.D.,FACP specified as acute [address] or chronic Office Visit 07/21/2018 [facility] Rosa Schroeder MD J45.901 Unspecified asthma 11:40a Medicine - with (acute) [place] exacerbation X79.xxxA Intentional self-harm by blunt object, initial encounter I10 Essential (primary) hypertension M54.41 Lumbago with sciatica, right side F60.3 Borderline personality disorder T18.9xxA Foreign body of alimentary tract, part unsp, init encntr Office Visit 07/18/2018 11:00a [facility] Moreno Sandoval 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 [facility] [place] (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) use of insulin E11.65 Type 2 diabetes mellitus with hyperglycemia E03.9 Hypothyroidism, unspecified R15.2 Fecal urgency Office Visit 07/04/2018 1:00p [facility] Moreno Sandoval Z79.4 [facility] [place] (current) use of insulin E11.65 Type 2 diabetes mellitus with hyperglycemia E03.9 Hypothyroidism, unspecified R19.7 Diarrhea, unspecified T50.902D Poisoning by unsp drug/meds/biol subst, self-harm, subs Office Visit 07/03/2018 10:00a [facility] Rosa Schroeder, E11.65 Type 2 diabetes Jaylene Gallagher MD mellitus with [address] hyperglycemia I10 [...] sciatica, right side Office Visit 05/22/2018 2:30p [facility] Rosa Schroeder, R19.7 Diarrhea, Medicine - [place] unspecified Rd L08.1 Erythrasma R15.1 Fecal smearing Office Visit 05/15/2018 1:30p [facility] Rosadevin Schroeder, R19.7 Diarrhea, Medicine - [place] [address] Rd F17.210 Nicotine dependence, cigarettes, uncomplicated J45.909 Unspecified asthma, uncomplicated E11.65 Type 2 diabetes mellitus with hyperglycemia Z91.81 History of falling E11.9 Type 2 diabetes mellitus without complications Office Visit 05/08/2018 9:30a [facility] Rosa Schroeder, E11.65 Type 2 diabetes Medicine - mellitus with [address] hyperglycemia R15.1 Fecal smearing I10 Essential (primary) hypertension R94.5 Abnormal results of liver function studies F33.3 Major depressv disorder, recurrent, severe w psych symptoms [facility] Toxic encephalopathy 11:25a Assoc,matthieu Sahu Hospitalists [...] of right shoulder C.M.A. Office Visit 10/13/2017 [facility] [place] E11.65 Type 2 diabetes 1:40p Medicine - [place], mellitus with Rd M.D. hyperglycemia Z12.31 Encntr screen mammogram for malignant neoplasm of breast Z12.11 Encounter for screening for malignant neoplasm of colon Office Visit 10/11/2017 Orthopedic Naveed F M75.31 Calcific tendinitis 1:30p Services Of MD Venecia of right shoulder C.M.A. Office Visit 09/28/2017 [facility] [place] E11.65 Type 2 diabetes 1:20p Jaylene Aguila, mellitus with [place] M.DJarred hyperglycemia M79.645 Pain in left finger(s) E03.9 Hypothyroidism, unspecified Office Visit 09/19/2017 [facility] [place] E11.65 Type 2 diabetes 2:40p Jaylene Aguila M.D. mellitus with [address] hyperglycemia M54.5 Low back pain Office Visit 08/17/2017 2:10p [facility] Lachelle F33.3 Major depressv Medicine Elliott Berrios NP disorder, [place] [address] recurrent, severe w psych symptoms R45.851 Suicidal ideations Office Visit 08/11/2017 1:20p [facility] Jun Aguila, F31.31 Bipolar Medicine - M.DJarred disorder, [address] current episode depressed, mild M51.16 Intervertebral disc disorders w radiculopathy, lumbar region K63.5 Polyp of colon K21.9 Gastro-esophageal reflux disease without esophagitis Office Visit 07/15/2017 11:00a [facility] Jun Cowan E11.9 Type 2 diabetes Jaylene Aguila M.D. mellitus without [address] complications M51.16 Intervertebral disc disorders w radiculopathy, lumbar region F31.31 Bipolar disorder, current episode depressed, mild E66.01 Morbid (severe) obesity due to excess calories Z68.41 Body mass index (BMI) 40.0-44.9, adult Office Visit 06/13/2017 3:20p [facility] Jun Cowan E11.9 Type 2 diabetes Jaylene [...] dependence, cigarettes, uncomplicated B37.9 Candidiasis, unspecified 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 (current) use of insulin Office Visit 05/26/2017 Orthopedic Marline G56.02 Carpal tunnel 8:45a Services Of Hilda Duarte M.D. syndrome, left upper limb Office Visit 05/11/2017 Surgical Senia Lorne R10.9 Unspecified 10:45a [facility] abdominal pain Office Visit 06/14/2016 [facility] Rosi L02.91 Cutaneous 1:40p Assoc,matthieu Grant, LUZ abscess, Hospitalists unspecified E11.9 Type 2 diabetes mellitus without complications Z79.4 [facility] (current) use of insulin Office Visit 06/13/2016 1:39p [facility] Alexus Elliott L02.91 Cutaneous Assoc,pc NJarredP. abscess, Hospitalists unspecified E11.9 Type 2 diabetes mellitus without complications Z79.4 [facility] (current) use of insulin Office Visit 05/21/2016 [facility] T39.1x2A Poisoning by 3:25p Assocmatthieu M.D. 4-Aminophenol Hospitalists derivatives, self-harm, init E11.9 Type 2 diabetes mellitus without complications F79 Unspecified intellectual disabilities Office Visit 05/20/2016 [facility] T39.1x2A Poisoning by 3:24p Assocmatthieu M.D. 4-Aminophenol Hospitalists derivatives, self-harm, init E11.9 Type 2 diabetes mellitus without complications F79 Unspecified intellectual disabilities Office Visit 05/19/2016 [facility] T39.1x2A Poisoning by 3:24p Assmatthieu drake M.D. 4-Aminophenol Hospitalists derivatives, self-harm, init E11.9 Type 2 diabetes mellitus without complications F79 Unspecified intellectual disabilities Office Visit 05/18/2016 [facility] T39.1x2A Poisoning by 3:23p Assmatthieu drake M.D. 4-Aminophenol Hospitalists derivatives, self-harm, init E11.9 Type 2 diabetes mellitus without complications F79 Unspecified intellectual disabilities [facility] Poisoning by 3:23p Assocmatthieu M.D. 4-Aminophenol Hospitalists derivatives, self-harm, init E11.9 Type 2 diabetes mellitus without complications F79 Unspecified intellectual disabilities Office Visit 05/16/2016 [facility] Ml T39.1x2A Poisoning by 3:22p Assoc,matthieu Mosquera M.D. 4-Aminophenol Hospitalists derivatives, self-harm, init E11.9 Type 2 diabetes mellitus without complications F79 Unspecified intellectual disabilities Office Visit 05/15/2016 [facility] Ml T39.1x2A Poisoning by 3:22p Assoc,matthieu Mosquera M.D. 4-Aminophenol Hospitalists derivatives, self-harm, init E11.9 Type 2 diabetes mellitus without complications F79 Unspecified intellectual disabilities Office Visit 05/14/2016 [facility] Yara T39.1x2A Poisoning by 3:22p Assoc,matthieu Daly D.O. 4-Aminophenol Hospitalists derivatives, self-harm, init E11.9 Type 2 diabetes mellitus without complications F79 Unspecified intellectual disabilities Office Visit 05/13/2016 [facility] Yara T39.1x2A Poisoning by 3:21p Assoc,matthieu Daly D.O. 4-Aminophenol Hospitalists derivatives, self-harm, init E11.9 Type 2 diabetes mellitus without complications F79 Unspecified intellectual disabilities Office Visit 05/12/2016 [facility] Yara T39.1x2A Poisoning by 3:21p Assoc,matthieu Daly D.O. 4-Aminophenol Hospitalists derivatives, self-harm, init E11.9 Type 2 diabetes mellitus without complications F79 Unspecified intellectual disabilities Office 05/11/2016 [facility] Benjamin T39.1x2A Poisoning by Visit 3:20p Assoc,RAÚL Brewer 4-Aminophenol Hospitalists derivatives, self-harm, init E11.9 Type 2 diabetes mellitus without complications F79 Unspecified intellectual disabilities Office Visit 05/03/2016 [facility] Anu R73.9 Hyperglycemia, 11:09a Assoc,matthieu Diaz, unspecified Hospitalists J40 Bronchitis, not specified as acute or chronic G89.4 Chronic pain syndrome Office Visit 04/07/2016 3:52p [facility] Ml R40.4 Transient Assoc,matthieu Mosquera M.D. alteration of Hospitalists awareness E13.9 Other specified diabetes mellitus without complications F79 Unspecified intellectual disabilities Z91.19 Patient's noncompliance w oth medical treatment and regimen Office Visit 04/06/2016 3:52p [facility] Ml R40.4 Transient Assoc,matthieu Mosquera M.D. alteration of Hospitalists awareness E13.9 Other specified diabetes mellitus without complications F79 Unspecified intellectual disabilities Z91.19 Patient's noncompliance w oth medical treatment and regimen Office Visit 04/05/2016 3:51p [facility] Yara R40.4 Transient Assoc,matthieu Daly, D.O. alteration of Hospitalists awareness E13.9 Other specified diabetes mellitus without complications F79 Unspecified intellectual disabilities Z91.19 Patient's noncompliance w oth medical treatment and regimen Office Visit 04/04/2016 3:51p [facility] Yara R40.4 Transient Assoc,matthieu Daly, D.O. alteration of Hospitalists awareness E13.9 Other specified diabetes mellitus without complications F79 Unspecified intellectual disabilities Z91.19 Patient's noncompliance w oth medical treatment and regimen Office Visit 04/03/2016 3:50p [facility] Rosi R40.4 Transient Assoc,matthieu Grant, [employer] INSTRU[employer] alteration of Hospitalists awareness E13.9 Other specified diabetes mellitus without complications F79 Unspecified intellectual disabilities Z91.19 Patient's noncompliance w oth medical treatment and regimen Office Visit 10/01/2015 10:08a [facility] Gray M54.31 Sciatica, right Assoc,matthieu Conn, N.P. side Hospitalists E11.9 Type 2 diabetes mellitus without complications F60.3 Borderline personality disorder Office Visit 09/28/2015 10:06a [facility] Ml M54.31 Sciatica, right Assoc,matthieu Mosquera M.D. side Hospitalists E11.9 Type 2 diabetes mellitus without complications Office Visit 04/24/2015 [facility] Conner 276.1 Hyposmolality & Or 1:31p matthieu Lowe M.D. Hyponatremia Hospitalists 296.7 Bipolar I Disorder Current NOS 301.83 Borderline Personality Disorder Office Visit 04/23/2015 [facility] Conner 276.1 Hyposmolality & Or 1:30p matthieu Lowe M.D. Hyponatremia Hospitalists 250.00 Diabetes Mellitus W/O Compl Type II Or Unspec Controlled 296.7 Bipolar I Disorder Current NOS 301.83 Borderline Personality Disorder Office Visit 04/22/2015 [facility] Quique 276.1 Hyposmolality & Or 1:29p Assocmatthieu M.D. Hyponatremia Hospitalists 250.00 Diabetes Mellitus W/O Compl Type II Or Unspec Controlled 301.83 Borderline Personality Disorder Office Visit 04/21/2015 [facility] Gray 276.1 Hyposmolality & Or 1:28p Assoc,matthieu Conn NJarredPJarred Hyponatremia Hospitalists 296.7 Bipolar I Disorder Current NOS 301.83 Borderline Personality Disorder 250.00 Diabetes Mellitus W/O Compl Type II Or Unspec Controlled Office Visit 11/27/2014 [facility] Sherita 244.9 Hypothyroidism 8:42a Assocmatthieu M.D. Other Unspec Hospitalists 250.02 Diabetes Mellitus W/O Compl Type II Or Unspec Type Uncontrol 301.83 Borderline Personality Disorder Office Visit 04/17/2012 [facility] 969.09 Poisoning By Other 4:07p Assocmatthieu D.O. Antidepressants Hospitalists 300.9 Nonpsychotic Disorders NOS 311 Depressive Disorder Not Elsewhere Spec [facility] Po[facility]ing By Other Visit 4:35p Assocmatthieu M.D. Antidepressants Hospitalists 300.9 Nonpsychotic Disorders NOS 311 Depressive Disorder Not Elsewhere Spec V11.1 History Personal Affective Disorder Office Visit 10/18/2009 1:00a [facility] Jase Jesus, 789.00 Pain Abdominal Assocmatthieu M.D. Unspec Site Hospitalists 787.03 Vomiting Alone 790.29 Other Abnormal Glucose 250.02 Diabetes Mellitus W/O Compl Type II Or Unspec Type Uncontrol Office Visit 10/17/2009 3:00a [facility] Jase Jesus, 790.29 Other Abnormal Assocmatthieu M.D. Glucose Hospitalists 789.00 Pain Abdominal Unspec Site 295.70 Schizoaffective Disorder NOS 401.9 Hypertension Unspec Office Visit 10/16/2009 12:15a [facility] Sherita 790.29 Other Abnormal Assoc,matthieu Marshall M.D. Glucose Hospitalists 296.80 Bipolar Disorder NOS Plan of Treatment Future Appointment(s):01/23/2019 11:40 am - Moreno Sandoval MD at [facility]11/01/2018 2:30 pm - Consuelo Corrales PA-C at [facility]01/02/2019 2:40 pm - Rosa Schroeder MD at [facility] Internal Medicine - Qbbmfggln84/28/2019 - Moreno Sandoval MDE11.65 Type 2 diabetes mellitus with hyperglycemiaFollow up:3 qxeithO14.9 Hypothyroidism, unspecifiedNew Medication: Levothyroxine Sodium 200 mcg - 1 by mouth every day on an empty stomach
--- OUTSIDE RECORDS SUMMARY | 2018-11-21 22:30 | XMS REPORT | Continuity of Care Document ---
:1965 External Reference #:[id number] Author Name Claire Mayer Care Team Providers Name Role Phone Rosa Schroeder M.D. Primary Care Physician Unavailable Payers Date Identification Numbers Payment Provider Subscriber Effective: 1991 Policy Number: [id number] Medicare Taryn Alfaro PayID: [id number] [address] [place] [address] Policy Number: [id number] Medicaid Taryn Alfaro Group Name: 1 [address] PayID: [id number] [place] [address] Advance Directives Description No Information Available Problems [...] severe mental illness Lives With Assisted [facility] since March 2018. Was at [facility] from October-Apr 2018 Occupation Unemployed Occupation Disabled Tobacco Use Start: Unknown Patient was a states she is cigarette smoker, quitting current status is unknown ETOH Use 07/26/2018 Denies alcohol use Recreational Drug Use Former Drug User Tobacco Use Start: Unknown Patient is a former End: Unknown smoker Smoking Status Reviewed: 10/19/18 Patient is a former smoker Exercise Type/Frequency Exercises rarely Allergies, Adverse Reactions, Alerts Date Description Reaction Status Severity Comments 05/10/2017 Latex Urticaria Active 05/10/2017 Sulfa Antibiotics hives Active 05/10/2017 Penicillins Urticaria Active 05/10/2017 Nalbuphine Active 05/10/2017 Perphenazine Active 05/10/2017 Ciprofloxacin dizziness Active 05/10/2017 Tramadol altered mental status Active 05/10/2017 Onset Active 05/08/2018 Lurasidone Active Moderate 05/22/2018 Metformin Diarrhea Active Medications Medication Date Status Form Strength Qnty SIG Indications Ordering Provider Polyethylene 10/19 Active Powder 3350NF 1020g 17g twice Lawrence Glycol 3350 /2018 m daily PO Kamille Denson M.D.,CESAR Pearl Swivel 10/19 Active Misc 5" 1unit folding M51.26 Lawrence Wheels/ christiane pearl, use Kamille Denson, Cody as directed Adelina,CESAR Holes/5" Cyclobenzaprine 10/19 Active Tablets 10mg 60tab take one HCL s tablet by beltran Schroeder three MD times a day as needed Gabapentin 10/02 Active Capsules 400mg 2 capsules at hs Ordering Provider Fluconazole 10/02 Active Tablets 150mg 2tabs 1 tab by B37.3 mouth x 1, john Schroeder repeat MD after 2 days if not better Anbesol Maximum 09/21 Active Gel 20% 27gm apply to gingiva Alexandre, 3x/day as MD needed for pain Nicoderm CQ 09/06 Active Patches 21mg/24HR 28uni apply one F17.210 24HR ts to skin Schroeder, every day MD Thomason 09/[address] 5665-0435 90cap one po tid R19.7 Part Unit s right Schroeder, before MD meals Onetouch Delica 09/04 Active Misc 100un test 2 - 3 E11.9 Lawrence Mar its times a day Kamille Denson Fine 33G M.D.,FACP Arnuity Ellipta 07/26 Active Aerosol 100mcg/Ac 30uni 1 puff t ts inhaled Schroeder, every day Levothyroxine 07/17 Active Tablets 175mcg 30tab take 175mcg E03.9 Mayer Sodium s daily on an MD Lori empty stomach Depend 07/03 Active Misc 120un use four its times a day Schroeder, Underwear L/XL Flonase Allergy 06/23 Active Suspension 50mcg/Act 9.900 2 sprays in ml each Schroeder, nostril twice a day Fiasp Flextouch 05/19 Active Solution 100Unit/M 45ml 22 units E11.65 Pen-Inject L per meal 3 Schroeder, times daily Basyaron Restrepo 05/19 Active Solution 100Unit/M 30ml 66 units Mayer Pen-Inject L once daily MD Lori Nicotrol 05/18 Active Inhaler 10mg 168un 1 its cartridges Kamille Denson, every 2 M.D.,FACP hours as needed Nystatin 1015 Active Powder 708576Oia 90gm apply twice t/GM daily until Schroeder, rash clears Ventolin HFA 1015 Active Aerosol 108(90Bas 8gm 2 by mouth e) every 4 Schroeder, mcg/Act hours as MD needed Onetouch Ultra 09/09 Active Strips 100un test up to Z79.4 its three times Schroeder, daily last MD visit:05/08 E11.65 E11.9 BD Pen 08/24/2017 Active Misc 32G 120units use three E11.9 Needle/Suzanna/Ultra X 4 times a day Schroeder, Fine/32G X 4mm mm daily. last MD visit 05/22/18 Depend Pant Extra 06/14/2017 Active Misc 120units use 4 x a Rosa Large day or as Alexandre, needed Olanzapine Active Tablets 5mg 90tabs one tab PO Rosa bid MD Alexandre Trazodone HCL Active Tablets 100m 90tabs 2 tab at Rosa g bedtime MD Alexandre Onetouch Ultra Mini Active Kit w/De 1units check bs up E11.65 Lawrence rodgers to three Kamille Denson, times daily M.D.,FACP Atorvastatin Active Tablets [...] 5mg by mouth Cady, every 4 - 6 M.D. hours as needed for pain. Clindamycin HCL [...] day, Kamille Denson, 07/31/2018 then 1 every Adelina,[facility] day Methylprednisolone 06/29/2018 Hx TBPK 4mg 21units take as Miguel - instructed Jonah, 07/21/2018 per samuel LAWSON dose pack instructions Naproxen 06/29/2018 Hx Tablets 500m 14tabs take 1 Lawrence - g tablet twice Kamille Denson, 10/02/2018 daily with MMarkel,FACP food prn Mucinex DM 06/23/2018 Hx Tablets [...] twice a MD day for 14 days Walker Auto 05/15/2018 Hx Misc 1-1/ 1units use this to Rosa Glides/5 Adjustment - 8" ambulate Schroeder, Holes/1-1/8" 10/19/2018 daily for unsteady gait Shower Chair 05/15/2018 Hx 1units use when Rosa - taking a Schroeder, 07/03/2018 shower for unsteady gait Metformin HCL ER 05/12/2018 Hx [...] to engage in Schroeder, 07/03/2018 exercise at [place] facilities under direct supervision of staff Tresiba Flextouch 10/13/2017 Hx Solution 100U 15ml 100 units at E11.65 [place] - Pen-Inje nit/ bedtime Pachikara 05/08/2018 ct Adelina HECTOR Losartan Potassium 10/13/2017 Hx Tablets 25mg 30tabs 1 by mouth E11.65 [place] - once a day Pachika 05/08/2018 Adelina Hydrocodone-Acetami 10/10/2017 Hx Tablets 5-32 20tabs 1 tab every Chap[place] nophen - 5mg 12h as Pachikara 05/08/2018 needed , Adelina Tresiba Flextouch 09/19/2017 Hx Solution 100U 15ml 60 units at E11.65 [place] - Pen-Inje nit/ bedtime Pachikara 10/13/2017 ct ML Adelina Onetouch Ultrasoft 08/31/2017 Hx Misc 100units test blood E11.9 Alyson Mar - 2-3 a day or Kamille Denson, 09/04/2018 as needed Adelina,FACP Onetouch Ultra Mini 08/31/2017 Hx Lancets 100units check bs [place] - twice daily Pachikara 05/08/2018 , M.D. Onetouch Ultra Mini 08/31/2017 Hx Strips 100units test up to E11.9 Lawrence Gallagher three times Kamille Denson, 09/09/2017 daily last Adelina,[facility] visit: 8 Mucinex 08/28/2017 Hx Tablets 600m 20tabs 1 po bid prn Lawrence - ER 12HR g Kamille Denson, 05/08/2018 MMarkel,FACP Doxycycline 08/28/2017 Hx Capsules 100m 13caps 1 by mouth Unknown Monohydrate - g twice a day 09/04/2017 x 7 days Tresiba Flextouch 08/26/2017 Hx Solution 200U 18ml 30u SC in Am Alyson Gallagher Pen-Inje nit/ and 70u SC Kamille Denson, 09/19/2017 ct ML in PM M.Kamille,FACP Azithromycin 08/26/2017 Hx Tablets 250m 2 tabs by Unknown - g mouth on day 08/31/2017 1; 1 tab by mouth every day on days 2-5 Tramadol HCL 08/26/2017 Hx Tablets 50mg 30tabs 1 tab by Lawrence - beltran three Kamille Denson, 09/28/2017 times a day [facility] Fluconazole 08/22/2017 Hx Tablets 150m 2tabs one by mouth Lawrence song may repeat Kamille Denson, 05/08/2018 in 3 days as [facility]elina,[facility] needed Lancets 28G 08/08/2017 Hx Misc 28G 100units use with one [place] - touch meter, Ayla 08/31/2017 check bs , Adelina daily Onetouch 08/08/2017 Hx Strips 100units test twice [place] - daily and [facility] 08/31/2017 needed , Adelina Janumet 07/15/2017 Hx Tablets 50-5 60tabs 1 by mouth E11.9 [place] - 00mg twice a day Ayla 05/08/2018 , Adelina Glucocom Blood 07/03/2017 Hx Kit W/De 1units one touch Erik Glucose Monitoring - vice glucometer Kavita, System 08/31/2017 to measure M.D. blood sugar daily Nicotrol 06/13/2017 Hx Inhaler 10mg 168units use 4-5 F17.21 [place] - times daily 0 Pachika 05/08/2018 , Adelina Clotrimazole 06/13/2017 Hx Cream 1% 90gm apply twice B37.9 [place] - daily Pachikara 05/08/2018 , Adelina Acetaminophen-Codei 05/26/2017 Hx Tablets 300- 20tabs 1 tab by [place] ne #3 - 30mg mouth every Pachikara 05/08/2018 4-6 hours as Adelina needed for pain Ibuprofen Hx Tablets 600m as needed Home - Paty song 05/08/2018 [facility] Ondansetron Hx Tablets 8mg every 6-8 Home - Dispers hours as Paty 05/08/2018 needed [facility] Pantoprazole Sodium Hx Tablets 40mg 30tabs take 1 [place] - DR tablet by [facility] 05/08/2018 mouth once , M.D. daily [...] Hx Tablets 50mc 90tabs 1 tab daily [facility] - [facility] stomach , M.D. Levothyroxine Hx Tablets 200m 90tabs 1 tab daily [place] Sodium - cg am in the Pachikara 05/08/2018 empty , M.D. stomach Naproxen Hx Tablets 500m 60tabs twice daily [place] - g Pachikara 07/15/2017 , MMarkel Lantus Solostar Hx Solution 100U 15ml 30 units SC Lawrence Gallagher Pen-Inje nit/ in Am, and D. Prentice, 08/26/2017 ct ML 70 units SC M.D.,FACP a hs Atorvastatin Hx Tablets 40mg 90tabs take one [place] Calcium - tablet by Pachikara 05/08/2018 mouth every , M.D. day Pictonix Hx 40 mg daily Unknown - Unknown Novalog Hx 10 units Unknown - before meals 05/08/2018 Levothyroxine Hx Tablets 150m 90tabs 1 by mouth E03.9 Rosa Sodium - cg every day Schroeder, 07/17/2018 Humye Kwikpen Hx Solution 100U 9ml 4-10 Units E11.65 Rosa - Pen-Inje nit/ SQ three Schroeder, 05/19/2018 ct ML times a day, MD at mealtime, per sliding scale instructions Metformin [...] Unknown - nit/ subcutaneous 09/05/2018 ML q.a.m. Miralax Hx Powder 500units 17 grams by Rosa - mouth every Schroeder, 10/19/2018 day as MD needed Medications Administered in Office Medication Date Status Form Strength Qnty SIG Indications Ordering Provider Depomedrol Administered Injection Naveed F 40MG 018 MD Venecia Immunizations CPT Code Status Date Vaccine Lot # [id number] Given 05/01/2018 Influenza Virus Vaccine, Quadrivalent, Split, Preservative Free Vital Signs Date Vital Result Comment 10/19/2018 10:55am Height 67 inches 5'7" Weight [...] Result H/L Range Note Laboratory test 08/22/2018 [facility] Acetaminophen < 15 g/mL [address] [place] [address] [phone] Alcohol < 10 mg/dL N <10 Salicylate < 2.50 mg/dL <30 TSH (Thyroid Stim Horm) 8.26 mcIU/mL High 0.34-5.60 Comp Metabolic Panel 08/22/2018 [facility] Sodium 139 mmol/L N 135-[address] [place] [address] [phone] Potassium 4.7 mmol/L N 3.5-5.0 Chloride 104 [...] 73.8 >60 2 CBC Auto Diff 08/22/2018 [facility] White Blood 10.7 10^3/uL N 3.5-10.[address] [place] [address] [phone] Red Blood Count 4.66 10^6/uL N 4.00-5.40 [...] Blood Cells % 0 Laboratory test 08/22/2018 [facility] Point of 202 mg/dL High 70-100 [address] [place] [address] [phone] Laboratory test 08/22/2018 [facility] Point of 321 mg/dL High 70-100 [address] [place] [address] [phone] CBC Auto Diff 08/19/2018 [facility] White Blood 9.3 N 3.5- 10.[address] Count 10^3/[place] [address] [phone] Red Blood Count 4.42 10^6/uL N 4.00-5.40 [...] Cells % 0.1 Comp Metabolic Panel 08/19/2018 [facility] Sodium 139 mmol/L N 135-[address] [place] [address] [phone] Chloride 108 mmol/L N 101-111 Co2 Carbon [...] 47 U/L High 13-39 Laboratory test 08/19/2018 [facility] HCG 2.61 mIU/mL [address] [place] [address] [phone] Acetaminophen < 15 g/mL 7 Alcohol < 10 mg/dL N <10 Salicylate < 2.50 mg/dL <30 TSH (Thyroid Stim Horm) 7.94 mcIU/mL High 0.34-5.60 Laboratory 08/17/2018 [facility] Point of Care 145 mg/dL High 70-100 8 test finding [address] [place] [address] [phone] Laboratory 08/15/2018 [facility] Miscellaneous See 9, 10 test finding [address] [place] [address] [phone] Comp 07/31/2018 [facility] Sodium 136 mmol/L N 135-145 [address] [place] [address] [phone] Potassium 4.9 mmol/L N 3.5-5.0 Chloride 104 [...] Egfr 93.8 >60 12 Lipid Profile 07/31/2018 [facility] Triglycerides 113 mg/dL 13 (Trig/Chol/HDL) [address] [place] [address] [phone] Cholesterol 94 mg/dL 14 HDL Cholesterol 34.8 mg/dL 15 LDL Cholesterol 37 mg/dL 16 Laboratory test finding 07/31/2018 [facility] GGTP 50 U/L N 9- 64.[address] [place] [address] [phone] Hemoglobin A1c (Glyco HGB) 8.3 % High 4.0-5.6 18 Laboratory test 07/20/2018 [facility] Point of Care 78 mg/dL N 70-100 [address] [place] [address] [phone] CBC Auto Diff 07/20/2018 [facility] White Blood 8.8 10^3/uL N 3.5-10.[address] [place] [address] [phone] Red Blood Count 4.30 10^6/uL N 4.00-5.40 [...] Cells % 0 Basic Metabolic Panel 07/20/2018 [facility] Sodium 140 mmol/L N 135-[address] [place] [address] [phone] Potassium 4.0 mmol/L N 3.5-5.0 Chloride 108 mmol/L N 101-111 Co2 Carbon Dioxide 26 mmol/L N 22-32 Anion Gap 6 mmol/L N 2-11 Glucose 82 mg/dL N 70-100 Blood Urea Nitrogen 13 mg/dL N 6-24 Creatinine 0.71 mg/dL N 0.51-0.95 BUN/Creatinine Ratio 18.3 N 8-20 Calcium 9.3 mg/dL N 8.6-10.3 Egfr Non- 86.4 >60 Egfr 104.6 >60 20 CBC Auto 07/10/2018 [facility] White Blood 14.1 10^3/uL High 3.5-10.[address] [place] [address] [phone] Red Blood Count 4.77 10^6/uL N 4.00-5.40 [...] Blood Cells % 0 Urinalysis Profile 07/10/2018 [facility] Urine Color Yellow [address] [place] [address] [phone] Urine Appearance Cloudy Urine Specific [place] 1.017 N 1.010-1.030 Urine pH 5.0 N [...] Present Abnormal Absent Comp Metabolic Panel 07/10/2018 [facility] Sodium 136 mmol/L N 135-145 [address] [place] [address] [phone] Potassium 4.6 mmol/L N 3.5-5.0 Chloride 102 [...] Egfr 65.9 >60 21 Laboratory test 07/10/2018 [facility] Acetaminophen < 15 g/mL 22 finding [address] [place] [address] [phone] Alcohol < 10 mg/dL N <10 Salicylate < 2.50 mg/dL <30 TSH (Thyroid Stim Horm) 9.45 mcIU/mL High 0.34-5.60 Urine Drug 07/10/2018 [facility] Amphetamine Ur None Detected None Detect SCR ED & [address] Screen [place] [address] [phone] Barbiturates Urine Screen None Detected None Detect Benzodiazepine Urine Screen None Detected None Detect Urine Cannabinoids Screen None Detected None Detect Urine Cocaine Screen None Detected None Detect Urine Opiates Screen None Detected None Detect Urine Phencyclidine Screen None Detected None Detect 23 Urine Culture 07/10/2018 [facility] Urine Culture SEE RESULT [address] BELOW Sensitivities [place], [place] [id number] [phone] Laboratory test 06/26/2018 [facility] Point of Care 143 mg/dL High 70-100 [address] Glucose [place], [place] [address] [phone] Laboratory test 06/26/2018 [facility] Point of Care 72 mg/dL N 70-100 [address] [place] [address] [phone] Laboratory test 06/26/2018 [facility] Point of Care 98 mg/dL N 70-100 [address] Glucose [place], [place] [address] [phone] Urine Drug SCR 06/26/2018 [facility] Amphetamine Ur None None ED & Pain Clinic [address] Screen Detected Detect [place], [place] [address] [phone] Barbiturates Urine Screen None Detected None Detect Benzodiazepine Urine Screen None Detected None Detect Urine Cannabinoids Screen None Detected None Detect Urine Cocaine Screen None Detected None Detect Urine Opiates Screen None Detected None Detect Urine Phencyclidine Screen None Detected None Detect 28 CBC Auto 06/26/2018 [facility] White Blood 10.9 10^3/uL High 3.5-10.[address] [place] [address] [phone] Red Blood Count 4.42 10^6/uL N 4.00-5.40 [...] Cells % 0 Comp Metabolic Panel 06/26/2018 [facility] Sodium 137 mmol/L N 135-[address] [place] [address] [phone] Potassium 4.3 mmol/L N 3.5-5.0 Chloride 105 [...] Egfr 95.6 >60 29 Urinalysis Profile 06/26/2018 [facility] Urine Color Straw [address] [place] [address] [phone] Urine Appearance Clear Urine Specific [place] 1.005 Low 1.010-1.030 Urine pH 6.0 N 5-9 Urine Urobilinogen Negative Negative Urine Ketones Negative Negative Urine Protein Negative Negative Urine Leukocytes Negative Negative Urine Blood Negative Negative Urine Nitrite Negative Negative Urine Bilirubin Negative Negative Urine Glucose Negative Negative Laboratory test 06/26/2018 [facility] Acetaminophen < 15 g/mL [address] [place] [address] [phone] Alcohol < 10 mg/dL N <10 Salicylate < 2.50 mg/dL <30 Lactic Acid 0.9 mmol/L N 0.5-2.0 31 CBC Auto Diff 05/18/2018 [facility] White Blood 10.8 10^3/uL N 3.5-10.[address] [place] [address] [phone] Red Blood Count 4.33 10^6/uL N 4.00-5.40 [...] Cells % 0.1 Comp Metabolic Panel 05/18/2018 [facility] Sodium 139 mmol/L N 135-[address] [place] [address] [phone] Potassium 4.5 mmol/L N 3.5-5.0 Chloride 107 [...] Egfr 98.6 >60 32 Laboratory test 05/18/2018 [facility] Lipase < 10 U/L Low 11.0 -82.[address] [place] [address] [phone] Lactic Acid 1.1 mmol/L N 0.5-2.0 33 Laboratory test 05/15/2018 [facility] C Difficile PCR SEE RESULT [address] [place] [address] [phone] Laboratory test 05/11/2018 [facility] Glucose 342 mg/dL High 70-[address] Confirmatory 00 [place] [address] [phone] Laboratory test 05/11/2018 [facility] Point of Care 402 mg/dL High 70-1 [address] Glucose 00 [place] [address] [phone] Laboratory test 05/11/2018 [facility] Point of Care 426 mg/dL High 70-1 [address] Glucose 00 [place] [address] [phone] CBC Auto Diff 05/10/2018 [facility] White Blood Count 12.0 High 3.5- [address] 10^3/uL 10.8 [place] [address] [phone] Red Blood Count 4.39 10^6/uL N 4.00-5.40 [...] Cells % 0.1 Comp Metabolic Panel 05/10/2018 [facility] Sodium 141 mmol/L N 135-[address] [place] [address] [phone] Potassium 4.9 mmol/L N 3.5-5.0 Chloride 107 [...] Egfr 90.2 >60 37 Laboratory test 05/10/2018 [facility] Lipase < 10 U/L Low 11.0 -82.[address] [place] [address] [phone] C Reactive Protein 6.43 mg/L N <8.01 Lactic Acid 1.2 mmol/L N 0.5-2.0 38 Urine Microalbumin 05/08/2018 [facility] Ur Microalbumin < 15.[address] (mg/L) [place] [address] [phone] Urine Creatinine 224.47 mg/dL Urine Microalbumin/Creatinine TNP <31 39 Laboratory test 05/08/2018 [facility] Hemoglobin A1c 9.7 High 5-7 finding Urinalysis Profile 11/02/2017 [facility] Urine Color Yellow [address] [place] [address] [phone] Urine Appearance Clear Urine Specific [place] 1.018 N 1.010-1.030 Urine pH 5.0 N 5-9 Urine Urobilinogen Negative Negative Urine Ketones Negative Negative Urine Protein Negative Negative Urine Leukocytes Negative Negative Urine Blood Negative Negative Urine Nitrite Negative Negative Urine Bilirubin Negative Negative Urine Glucose 1+(50 mg/dL) Abnormal Negative Laboratory test 11/02/2017 [facility] Magnesium 1.9 mg/dL N 1.9-2.[address] [place] [address] [phone] Creatine Kinase(CK) 72 U/L N 10-223 Troponin-I (TnI) 0.03 ng/mL <0.04 Acetaminophen < 15 g/mL 40 Alcohol < 10 mg/dL N <10 Salicylate < 2.50 mg/dL <30 TSH (Thyroid Stim Horm) 1.79 mcIU/mL N 0.34-5.60 Urine Drug 11/02/2017 [facility] Amphetamine Ur None Detected None Detect SCR ED & [address] Screen [place] [address] [phone] Barbiturates Urine Screen None Detected None Detect Benzodiazepine Urine Screen None Detected None Detect Urine Cannabinoids Screen None Detected None Detect Urine Cocaine Screen None Detected None Detect Urine Opiates Screen Presumptive Posi <SEE NOTE> Abnormal None Detect 41 Urine Phencyclidine Screen None Detected None Detect 42 Arterial Blood Gas 11/02/2017 [facility] PH Arterial 7.36 N 7.35-7.[address] [place] [address] [phone] Pco2 Arterial 50 mmHg High 35-45 Po2 Arterial 65 mmHg Low 80-100 O2 Saturation Arterial 91.1 % Low 95-98 Base Excess Arterial 2.1 High -2.0-2.0 43 Hco3 Arterial 26.4 mmol/L N 19-31 Laboratory test finding 11/02/2017 [facility] Ammonia 37 ?mol/L N 16-[address] [place] [address] [phone] Lactic Acid 1.0 mmol/L N 0.5-2.0 44 Comp Metabolic 11/02/2017 [facility] Potassium 4.4 mmol/L N 3.5-5.[address] [place] [address] [phone] Chloride 107 mmol/L N 101-111 Co2 Carbon [...] mmol/L N 2-11 CBC Auto Diff 11/02/2017 [facility] White Blood 8.5 10^3/uL N 3.5-10.[address] [place] [address] [phone] Red Blood Count 4.40 10^6/uL N 4.0-5.4 [...] Cells % 0 CBC Auto Diff 10/02/2017 [facility] White Blood 10.3 10^3/uL N 3.5-10.[address] [place] [address] [phone] Red Blood Count 4.29 10^6/uL N 4.0-5.4 [...] Cells % 0 Comp Metabolic Panel 10/02/2017 [facility] Sodium 136 mmol/L N 133-[address] [place] [address] [phone] Potassium 4.5 mmol/L N 3.5-5.0 Chloride 103 [...] Egfr 90.7 >60 46 Laboratory test 10/02/2017 [facility] CRP High 3.53 mg/L [address] [place] [address] [phone] Laboratory test 09/28/2017 [facility] Hemoglobin A1c 9.1 High 5-7 finding Laboratory test 09/13/2017 [facility] Point of Care 179 mg/dL High 70-10 [address] Glucose 0 [place] [address] [phone] Laboratory test 09/13/2017 [facility] Point of Care 260 mg/dL High 70-10 [address] Glucose 0 [place] [address] [phone] Comp Metabolic 08/29/2017 [facility] Sodium 136 N 133-[address] mmol/L 45 [place] [address] [phone] Potassium 4.9 mmol/L N 3.5-5.0 Chloride 104 [...] Egfr 60.9 >60 50 Laboratory test 08/29/2017 [facility] Lipase < 10 U/L Low 11.0 -82.[address] [place] [address] [phone] CRP High Sensitivity 1.79 mg/L 51 Troponin-I (TnI) 0.00 ng/mL <0.04 Laboratory test 08/29/2017 [facility] B-Type 21 pg/mL [address] [place] [place] [address] Peptide BNP [phone] CBC Auto Diff 08/29/2017 [facility] White Blood Count 9.1 10^3/ uL N 3.5-[address] 0.8 [place] [address] [phone] Red Blood Count 4.06 10^6/uL N 4.0-5.4 [...] Cells % 0 Comp Metabolic Panel 08/26/2017 [facility] Sodium 139 mmol/L N 133-[address] [place] [address] [phone] Potassium 5.0 mmol/L N 3.5-5.0 Chloride 105 [...] >60 Egfr 80.7 >60 53 Inr/Protime 08/26/2017 [facility] Inr 0.82 N 0.77-1.[address] [place] [address] [phone] Laboratory test 08/26/2017 [facility] Partial 27.7 seconds N 26.0-36.[address] [place] [address] PTT [phone] CBC Auto Diff 08/26/2017 [facility] White Blood 9.0 10^3/uL N 3.5-10.[address] [place] [address] [phone] Red Blood Count 4.42 10^6/uL N 4.0-5.4 [...] Blood Cells % 0 Laboratory test 08/26/2017 [facility] Troponin-I 0.01 <0.[address] (TnI) ng/[place] [address] [phone] Laboratory test 08/25/2017 [facility] [facility] Reactive 3.27 mg/L N < 5.00 [address] [place] [address] [phone] Venous Blood 08/25/2017 [facility] Venous Blood 7.48 High 7.33 -7.[address] [place] [address] [phone] Venous Pco2 31 mmHg Low 41-51 Venous Po2 98 mmHg High 35-45 Venous O2 Saturation 95.3 % High 70-80 Venous Blood Base Excess 0.1 N 0-4 55 Venous Bicarbonate Hco3 25.0 mmol/L N 24-28 CBC Auto Diff 08/25/2017 [facility] White Blood 8.9 10^3/uL N 3.5-10.[address] [place] [address] [phone] Red Blood Count 4.33 10^6/uL N 4.0-5.4 [...] Blood Cells % 0 Laboratory test 08/25/2017 [facility] Point of 289 mg/dL High 70-100 [address] [place] [address] [phone] Comp Metabolic 08/25/2017 [facility] Sodium 134 mmol/L N 133- [address] [place] [address] [phone] Potassium 4.8 mmol/L N 3.5-5.0 Chloride 101 [...] Egfr 88.3 >60 57 Urinalysis Profile 08/25/2017 [facility] Urine Color Yellow [address] [place] [address] [phone] Urine Appearance Clear Urine Specific [place] 1.010 N 1.010-1.030 Urine pH 5.0 N 5-9 Urine Urobilinogen Negative Negative Urine Ketones Negative Negative Urine Protein Negative Negative Urine Leukocytes Negative Negative Urine Blood Negative Negative Urine Nitrite Negative Negative Urine Bilirubin Negative Negative Urine Glucose 3+(>=500 mg/dL) Abnormal Negative Laboratory test 08/25/2017 [facility] Point of 157 mg/dL High 70-100 58 finding [address] [facility] [place] [address] [phone] Laboratory test 08/23/2017 [facility] Point of 224 mg/dL High 70-100 59 finding [address] [facility] [place] [address] [phone] Laboratory test 08/22/2017 [facility] Lactic Acid 1.3 mmol/L N 0.5-2.0 60 finding [address] [place] [address] [phone] Comp Metabolic 08/22/2017 [facility] Sodium 131 mmol/L Low 133 -145 Panel [address] [place] [address] [phone] Potassium 4.6 mmol/L N 3.5-5.0 Chloride 98 [...] mg/dL High 70-100 62 Laboratory test 08/22/2017 [facility] Magnesium 2.0 mg/dL N 1.9-2.[address] [place] [address] [phone] Creatine Kinase(CK) 121 U/L N 10-223 C Reactive Protein 4.62 mg/L N < 5.00 63 Troponin-I (TnI) 0.01 ng/mL <0.04 Laboratory test 08/22/2017 [facility] Glucose 417 mg/dL High 70-[address] [place] [address] [phone] Laboratory test 08/22/2017 [facility] Point of > 444 mg/dL High 70-100 [address] [place] [address] [phone] Urinalysis 08/22/2017 [facility] Urine Color Yellow Profile [address] [place] [address] [phone] Urine Appearance Cloudy Urine Specific [place] 1.023 N 1.010-1.030 Urine pH 6.0 N [...] Present Abnormal Absent Urine Culture And 08/22/2017 [facility] Urine Culture SEE RESULT [address] [place] [address] [phone] CBC Auto Diff 08/22/2017 [facility] White Blood 8.9 10^3/uL N 3.5-[address] Count 0.8 [place] [address] [phone] Red Blood Count 4.19 10^6/uL N 4.0-5.4 [...] Cells % 0.1 Venous Blood Gas 08/22/2017 [facility] Venous Blood pH 7.42 N 7.33-7.43 [address] [place] [address] [phone] Venous Pco2 49 mmHg N 41-51 Venous Po2 36 mmHg N 35-45 Venous O2 Saturation 78.1 % N 70-80 Venous Blood Base Excess 6.3 High 0-4 66 Venous Bicarbonate Hco3 29.4 mmol/L High 24-28 Inr/Protime 08/22/2017 [facility] Inr 0.91 N 0.77-1.02 [address] [place] [address] [phone] Laboratory test 08/18/2017 [facility] Point of 180 mg/dL High 70-100 67 finding [address] [place] [address] Glucose [phone] Urinalysis 08/17/2017 [facility] Urine Color Yellow Profile [address] [place] [address] [phone] Urine Appearance Cloudy Urine Specific [place] 1.016 N 1.010-1.030 Urine pH 5.0 N 5-9 Urine Urobilinogen Negative Negative Urine Ketones Negative Negative Urine Protein Negative Negative Urine Leukocytes Negative Negative Urine Blood Negative Negative Urine Nitrite Negative Negative Urine Bilirubin Negative Negative Urine Glucose 3+(>=500 mg/dL) Abnormal Negative Urine Drug 08/17/2017 [facility] Amphetamine Ur None Detected None Detect SCR ED & [address] Screen [place] [address] [phone] Barbiturates Urine Screen None Detected None Detect Benzodiazepine Urine Screen None Detected None Detect Urine Cannabinoids Screen None Detected None Detect Urine Cocaine Screen None Detected None Detect Urine Opiates Screen None Detected None Detect Urine Phencyclidine Screen None Detected None Detect 68 Laboratory test 08/17/2017 [facility] Point of 276 mg/dL High 70-100 [address] [place] [address] [phone] Laboratory test 08/17/2017 [facility] Point of > 444 High 70- 100 [address] Care Glucose mg/[place] [address] [phone] Venous Blood 08/17/2017 [facility] Venous Blood 7.36 N 7.33- 7.[address] [place] [place] [address] [phone] Venous Pco2 48 mmHg N 41-51 Venous Po2 29 mmHg Low 35-45 Venous O2 Saturation 59.9 % Low 70-80 Venous Blood Base Excess 1.1 N 0-4 71 Venous Bicarbonate Hco3 24.9 mmol/L N 24-28 CBC Auto Diff 08/17/2017 [facility] White Blood 10.8 10^3/uL N 3.5-10.[address] [place] [address] [phone] Red Blood Count 4.74 10^6/uL N 4.0-5.4 [...] Cells % 0 Comp Metabolic Panel 08/17/2017 [facility] Sodium 133 mmol/L N 133-[address] [place] [address] [phone] Potassium 4.9 mmol/L N 3.5-5.0 Chloride 101 [...] mg/dL High 70-100 73 Laboratory test 08/17/2017 [facility] Acetaminophen < 15 g/mL [address] [place] [address] [phone] Alcohol < 10 mg/dL N <10 Salicylate < 2.50 mg/dL <30 TSH (Thyroid Stim Horm) 2.76 mcIU/mL N 0.34-5.60 Lamotrigine (Lamictal) 4.2 g/mL 2.5 - 15.0 75 Laboratory test 08/17/2017 [facility] Point of > 444 High 70- 100 [address] Care Glucose mg/[place] [address] [phone] Laboratory test 08/09/2017 [facility] Point of 266 mg/dL High 70-100 [address] [place] [address] [phone] CBC Auto Diff 08/08/2017 [facility] White Blood 11.9 High 3.5- 10.[address] Count 10^3/[place] [address] [phone] Red Blood Count 4.78 10^6/uL N 4.0-5.4 [...] Cells % 0 Comp Metabolic Panel 08/08/2017 [facility] Sodium 136 mmol/L N 133-[address] [place] [address] [phone] Potassium 4.3 mmol/L N 3.5-5.0 Chloride 100 [...] Egfr 95.9 >60 78 Laboratory test 08/08/2017 [facility] Acetaminophen < 15 g/mL 79 finding [address] [place] [address] [phone] Alcohol < 10 mg/dL N <10 Salicylate < 2.50 mg/dL <30 TSH (Thyroid Stim Horm) 2.67 mcIU/mL N 0.34-5.60 Lamotrigine (Lamictal) 2.5 g/mL 2.5 - 15.0 80 Urinalysis Profile 08/08/2017 [facility] Urine Color Yellow [address] [place] [address] [phone] Urine Appearance Cloudy Urine Specific [place] 1.022 N 1.010-1.030 Urine pH 6.0 N 5-9 Urine Urobilinogen Negative Negative Urine Ketones Negative Negative Urine Protein Negative Negative Urine Leukocytes Negative Negative Urine Blood Negative Negative Urine Nitrite Negative Negative Urine Bilirubin Negative Negative Urine Glucose 3+(>=500 mg/dL) Abnormal Negative Urine Drug 08/08/2017 [facility] Amphetamine Ur None Detected None Detect SCR ED & [address] Screen [place] [address] [phone] Barbiturates Urine Screen None Detected None Detect Benzodiazepine Urine Screen None Detected None Detect Urine Cannabinoids Screen None Detected None Detect Urine Cocaine Screen None Detected None Detect Urine Opiates Screen None Detected None Detect Urine Phencyclidine Screen None Detected None Detect 81 Laboratory test 08/04/2017 [facility] Point of Care 258 mg/dL High 70-100 [address] Glucose [place], [place] [address] [phone] Laboratory test 08/04/2017 [facility] Point of Care 175 mg/dL High 70-100 [address] Glucose [place], [place] [address] [phone] Laboratory test 08/04/2017 [facility] Point of Care 284 mg/dL High 70-100 [address] [place] [address] [phone] Urinalysis 08/03/2017 [facility] Urine Color Yellow Profile [address] [place] [address] [phone] Urine Appearance Cloudy Urine Specific [place] 1.012 N 1.010-1.030 Urine pH 5.0 N [...] Crystals Present Abnormal Absent Urine Drug 08/03/2017 [facility] Amphetamine Ur None Detected None Detect SCR ED & [address] [place] [address] [phone] Barbiturates Urine Screen None Detected None Detect Benzodiazepine Urine Screen None Detected None Detect Urine Cannabinoids Screen None Detected None Detect Urine Cocaine Screen None Detected None Detect Urine Opiates Screen None Detected None Detect Urine Phencyclidine Screen None Detected None Detect 85 Urine Culture And 08/03/2017 [facility] Urine SEE RESULT [address] [place] [address] [phone] CBC Auto Diff 08/03/2017 [facility] White Blood 10.9 High 3.5- [address] Count 10^3/uL 0.8 [place] [address] [phone] Red Blood Count 4.61 10^6/uL N 4.0-5.4 [...] Cells % 0 Comp Metabolic Panel 08/03/2017 [facility] Sodium 132 mmol/L Low 133-[address] [place] [address] [phone] Potassium 4.6 mmol/L N 3.5-5.0 Chloride 98 [...] Egfr 87.1 >60 87 Laboratory test 08/03/2017 [facility] Acetaminophen < 15 g/mL [address] [place] [address] [phone] Alcohol < 10 mg/dL N <10 Salicylate < 2.50 mg/dL <30 TSH (Thyroid Stim Horm) 0.60 mcIU/mL N 0.34-5.60 Laboratory test 08/02/2017 [facility] Troponin-I 0.01 <0.[address] (TnI) ng/[place] [address] [phone] CBC Auto Diff 08/02/2017 [facility] White Blood 13.8 High 3.5- 10.[address] Count 10^3/[place] [address] [phone] Red Blood Count 4.64 10^6/uL N 4.0-5.4 [...] Cells % 0 Comp Metabolic Panel 08/02/2017 [facility] Sodium 133 mmol/L N 133-[address] [place] [address] [phone] Potassium 4.7 mmol/L N 3.5-5.0 Chloride 101 [...] Egfr 98.7 >60 89 Laboratory test 08/02/2017 [facility] Troponin-I 0.03 <0.[address] (TnI) ng/mL [place], [place] [address] [phone] Urine Culture And 08/01/2017 [facility] Urine Culture SEE 90, Sensitivities [address] RESULT 91 [place] [address] BELOW [phone] Laboratory test 06/13/2017 [facility] Hemoglobin 9.2 High 5-7 finding A1c Laboratory test 06/03/2017 [facility] Point of Care 184 mg/dL High 70-100 [address] Glucose [place], [place] [address] [phone] Laboratory test 06/03/2017 [facility] Point of Care 256 mg/dL High 70-100 [address] Glucose [place], [place] [address] [phone] Laboratory test 06/03/2017 [facility] Point of Care 329 mg/dL High 70-100 [address] Glucose [place], [place] [address] [phone] Laboratory test 06/03/2017 [facility] Point of Care 384 mg/dL High 70-100 [address] Glucose [place], [place] [address] [phone] Laboratory test 06/03/2017 [facility] Point of Care > 444 High 70-100 [address] Glucose mg/[place] [address] [phone] Laboratory test 06/03/2017 [facility] of Care > 444 High 70-100 [address] Glucose mg/[place] [address] [phone] 1 Therapeutic concentration: <50 ug/mL Toxic concentration: [...] 5 Kidney failure <15 (or dialysis) 3 Senior Grant Writer: [id number] 4 Senior Grant Writer: [id number] 5 Because ethnic data is not always [...] <50 ug/mL Toxic concentration: >120 ug/mL 8 Senior Grant Writer: [id number] 10 Test Result Flag Unit RefValue TRYPSIN [...] cannot be used interchangeably. Test Performed by: [employer] [address] [place] [id number] 11 [id number] 12 Because ethnic data is not always [...] 130-159 High: 160-189 Very High: >189 17 [id number] 18 Therapeutic target for the treatment of diabetes mellitus patients is <7% HBA1C, and in selective patients <6.0%. Please refer to [employer] diabetic care guidelines for further information. 19 Senior Grant Writer: [id number] 20 Because ethnic data is not always [...] [address]: Sendy Mcdowell MD Acct: [id number] Unit: [id number] AGE: 53 Location: ED Re07/10/18 SEX: F Status: DEP ER SPEC: [id number] ANKUR: 07/10/[address]: Sendy Mcdowell MD REQ: [id number] RECD: 07/10/18 STATUS: TASHA BARFIELD DR: Chapo Aguila MD _ SOURCE: URINE SPDESC: ORDERED: Urine Culture Procedure Result Reported Site Urine Culture Final 07/12/18- 0845 ML No growth of clinically significant organisms * ML - Main Lab . END OF REPORT DEPARTMENT OF PATHOLOGY, [address] [place] [address] Tay Gamboa M.D. Director [facility] # [id number] 25 Senior Grant Writer: [id number] 26 Senior Grant Writer: [id number] 27 Senior Grant Writer: [id number] 28 The urine specimen was tested at [...] <50 ug/mL Toxic concentration: >120 ug/mL 31 [facility] Severe Sepsis and Septic Shock [...] 5 Kidney failure <15 (or dialysis) 33 [facility] Severe Sepsis and Septic Shock Management Bundle Measure requires all lactic acids initially measuring >2.0 mmol/L be repeated. 34 SEE RESULT BELOW Name: TARYN ALFARO : [address]: Danya Marquez MD Acct: [id number] Unit: [id number] AGE: 52 Location: [facility] Re05/15/18 SEX: F Status: REG REF SPEC: [id number] ANKUR: 05/15/18-[address] [facility] [address]: Danya Marquez MD REQ: [id number] RECD: 05/15/181250 STATUS: COMP _ SOURCE: STOOL SPDESC: ORDERED: C. diff PCR Procedure Result Reported Site Stool Specimen Description Final 05/15/18- 1306 ML Stool Color [place] Stool Form Semi-formed Stool Consistency Firm C. difficile PCR Final 05/15/18- 1306 ML Test not performed * ML - Main Lab . END OF REPORT DEPARTMENT OF PATHOLOGY, [address] [place] [address] Tay Gamboa M.D. Director [facility] # [id number] 35 Senior Grant Writer: [id number] 36 Senior Grant Writer: [id number] 37 Because ethnic data is not always [...] 5 Kidney failure <15 (or dialysis) 38 [facility] Severe Sepsis and Septic Shock [...] Reference ranges based on room air. 44 [facility] Severe Sepsis and Septic Shock [...] Average risk: 1.00-3.00 High risk: >3.00 48 Senior Grant Writer: [id number] 49 Senior Grant Writer: [id number] 50 Because ethnic data is not always [...] Reference ranges based on room air. 56 Senior Grant Writer: [id number] 57 Because ethnic data is not always [...] 5 Kidney failure <15 (or dialysis) 58 Senior Grant Writer: [id number] 59 Senior Grant Writer: [id number] 60 [facility] Severe Sepsis and Septic Shock [...] dialysis) 62 Critical Result [id number] Called to [id number] at: 21:48:40 by:[email or web address] Read back by:[id number] 63 Acute inflammation: >10.00 64 Senior Grant Writer: [id number] 65 SEE RESULT BELOW Name: TARYN ALFARO : [address]: Violeta Yusuf MD Acct: [id number] Unit: [id number] AGE: 52 Location: ED Re08/22/17 SEX: F Status: DEP ER SPEC: [id number] ANKUR: 08/22/[address]: Violeta Yusuf MD REQ: [id number] RECD: 08/22/17 STATUS: TASHA BARFIELD DR: Chapo Aguila MD _ SOURCE: URINE SPDESC: ORDERED: Urine Culture Procedure Result Reported Site Urine Culture Final 08/23/17- 1607 ML Mixed seema; possible contamination. Suggest resubmission. * ML - [facility]) . END OF REPORT * ML=Testing performed at Main Lab DEPARTMENT OF PATHOLOGY, [address] [place] [address] Tay Gamboa M.D. Director [facility] # [id number] 66 Reference ranges based on room air. 67 Senior Grant Writer: [id number] 68 The urine specimen was tested at the listed cutoffs: Drug class test level (ng/mL) Amphetamines 500 Barbiturates 200 Benzodiazepine metabolites 200 Cocaine metabolites 150 Cannabinoids 50 Opiates 300 Pcp 25 Specimen was received without chain of custody. Results should be used for medical purposes only. 69 Senior Grant Writer: [id number] 70 Senior Grant Writer: [id number] 71 Reference ranges based on room air. [...] dialysis) 73 Critical Result [id number] Called to [id number] at: 18:00:03 by:[id number] Read back by:[id number] 74 Therapeutic concentration: <50 ug/mL Toxic concentration: >120 ug/mL 75 ADDITIONAL INFORMATION This test was developed and its performance characteristics determined by [facility] in a manner consistent with CLIA requirements. This test has not been cleared or approved by the U.S. Food and Drug Administration. Test Performed by: [facility] [employer] [place] [employer] [address] [place] [address] 76 Senior Grant Writer: [id number] 77 Senior Grant Writer: [id number] 78 Because ethnic data is not always [...] its performance characteristics determined by [facility] in a manner consistent with CLIA requirements. This test has not been cleared or approved by the U.S. Food and Drug Administration. Test Performed by: [facility] [employer] [facility] [place] [employer] [facility] [place] [address] 81 The urine specimen was tested at the listed cutoffs: Drug class test level (ng/mL) Amphetamines 500 Barbiturates 200 Benzodiazepine metabolites 200 Cocaine metabolites 150 Cannabinoids 50 Opiates 300 Pcp 25 Specimen was received without chain of custody. Results should be used for medical purposes only. 82 Senior Grant Writer: [id number] 83 Senior Grant Writer: [id number] 84 Senior Grant Writer: [id number] 85 The urine specimen was tested at the listed cutoffs: Drug class test level (ng/mL) Amphetamines 500 Barbiturates 200 Benzodiazepine metabolites 200 Cocaine metabolites 150 Cannabinoids 50 Opiates 300 Pcp 25 Specimen was received without chain of custody. Results should be used for medical purposes only. 86 SEE RESULT BELOW Name: TARYN ALFARO : [address]: Sendy Mcdowell MD Acct: [id number] Unit: [id number] AGE: 52 Location: ED Re08/03/17 SEX: F Status: REG ER SPEC: [id number] ANKUR: 08/03/[address] [facility] [address]: Sendy Mcdowell MD REQ: [id number] RECD: 08/03/17 STATUS: TASHA BARFIELD DR: Chapo Aguila MD _ SOURCE: URINE [facility]: ORDERED: Urine Culture Procedure Result Reported Site Urine Culture Final 08/05/17- 1225 ML No growth of clinically significant organisms * ML - MAIN LAB ([facility]) . END OF REPORT * ML=Testing performed at Main Lab DEPARTMENT OF PATHOLOGY, [address] [place] [address] Tay Gamboa M.D. Director [facility] # [id number] 87 Because ethnic data is not always [...] 5 Kidney failure <15 (or dialysis) 90 [id number] 91 SEE RESULT BELOW Name: TARYN ALFARO Cameron : [address]: Any Ramirez MD Acct: [id number] Unit: [id number] AGE: 52 Location: [facility] Re08/01/17 SEX: F Status: DEP ER SPEC: [id number] ANKUR: 08/01/17-[address] [facility] [address]: Any Ramirez MD REQ: [id number] RECD: 08/02/17-4770 STATUS: COMP [facility] DR: Chapo Aguila MD _ [facility] ORDERED: Urine Culture COMMENTS: [id number] Procedure Result Reported Site Urine Culture Final 08/03/17- 1251 ML Mixed seema; possible contamination. Suggest resubmission. * ML - MAIN LAB ([facility]) . END OF REPORT * ML=Testing performed at Main Lab DEPARTMENT OF PATHOLOGY, [address] [place] [address] Tay Gamboa M.D. Director [facility] # [id number] 92 Senior Grant Writer: [id number] 93 Senior Grant Writer: [id number] 94 Senior Grant Writer: [id number] 95 Senior Grant Writer: [id number] 96 Senior Grant Writer: [id number] 97 Senior Grant Writer: [id number] Procedures Date Code Description Status 07/21/2018 54574 Inhalation [place] For Acute Airway Obstruction Completed W/Nebulizer/Inhaler 11/03/2017 62070 EKG, Interpretation Only Completed 10/26/2017 [id number] Diabetic Retinal Eye Exam Completed 10/11/2017 97037 Inject/Drain Joint/Bursa Major W/O US Completed 06/03/2017 18973 Carpal Tunnel Release Completed 06/03/2017 23358 Carpal Tunnel Release Completed 05/01/2016 43284952 Mammogram Completed 04/06/2016 15012 EEG Recording Awake & Drowsy Completed 04/03/2016 26066 EKG, Interpretation Only Completed 04/29/2015 01026 EEG Recording Awake & Drowsy Completed 04/16/2012 30000 EKG, Interpretation Only Completed 04/16/2012 59727 EKG, Interpretation Only Completed Encounters Type Date Location Provider Dx Diagnosis Office Visit 10/19/2018 [facility] Jun Simental M51.26 Other intervertebral 11:00a Medicine - Tbnahum Denson M.D.,FACP disc displacement, Rd lumbar region E11.65 Type 2 diabetes mellitus with hyperglycemia K59.00 Constipation, unspecified Office Visit 10/02/2018 3:00p Santo Schroeder MD I10 Essential (primary) Medicine - [place] hypertension Rd M54.16 Radiculopathy, lumbar region F17.211 Nicotine dependence, cigarettes, in remission E66.9 Obesity, unspecified B37.3 Candidiasis of vulva and vagina Office Visit 09/25/2018 3:00p Spine Navigator Consuelo Corrales, M54.16 Radiculopathy, Of [facility] PA-C lumbar region Office Visit 09/06/2018 2:20p Santo Schroeder, I10 Essential ( primary) Medicine - [place] MD hypertension Rd E11.65 Type 2 diabetes mellitus with hyperglycemia R19.7 Diarrhea, unspecified M54.41 Lumbago with sciatica, right side F17.210 Nicotine dependence, cigarettes, uncomplicated R68.84 Jaw pain F60.3 Borderline personality disorder Office Visit 07/26/2018 Santo Simental J40 Bronchitis, not 2:40p Jaylene Denson [...] init encntr Office Visit 07/18/2018 11:00a [facility] Diabetes and [place]no Sandoval, Z79.4 care home [facility] of [place] [facility] (current) use of insulin E11.65 Type 2 diabetes mellitus with hyperglycemia E03.9 Hypothyroidism, unspecified R15.2 Fecal urgency Office Visit 07/04/2018 1:00p Lainey Hodge and Moreno Sandoval, Z79.4 care home [facility] [place] (current) use of insulin E11.65 Type 2 diabetes mellitus with hyperglycemia E03.9 Hypothyroidism, unspecified R19.7 Diarrhea, unspecified T50.902D Poisoning by unsp drug/meds/biol subst, self-harm, subs Office Visit 07/03/2018 10:00a [facility] Internal Rosa Schroeder, E11.65 Type 2 [...] synovitis and 1:15p Services Of Adelina Duarte tenosynovivivien, C.M.A. right hand M54.41 Lumbago with sciatica, right side Office Visit 05/22/2018 2:30p [facility] Internal Rosa Schroeder, R19.7 Diarrhea, Medicine - [place] [address] Rd L08.1 Erythrasma R15.1 Fecal smearing Office Visit 05/15/2018 1:30p [facility] Internal Rosa Schroeder, R19.7 Diarrhea, Medicine - [place] [address] Rd F17.210 Nicotine dependence, cigarettes, uncomplicated J45.909 Unspecified asthma, uncomplicated E11.65 Type 2 diabetes mellitus with hyperglycemia Z91.81 History of falling E11.9 Type 2 diabetes mellitus without complications Office Visit 05/08/2018 9:30a [facility] Internal Rosa Schroeder, E11.65 Type 2 diabetes Medicine - MD mellitus with [place] Rd hyperglycemia R15.1 Fecal smearing I10 Essential (primary) hypertension R94.5 Abnormal results of liver function studies F33.3 Major depressv disorder, recurrent, severe w psych symptoms Office Visit 11/04/2017 [facility] Sheritatuan Lui, G92 Toxic encephalopathy 11:25a Assoc,matthieu Sahu [...] Visit 11/02/2017 11:22a Intensivists Ishmael Dumont R40.2432 [place] coma Cheng, D.O. scale score 3-8, EMR G92 Toxic encephalopathy T50.904A Poisoning by unsp drug/meds/biol subst, undetermined, init F60.3 Borderline personality disorder Office Visit 10/18/2017 Orthopedic Naveed Lutz M75.31 Calcific tendinitis 9:00a Services Of MD Venecia of right shoulder C.M.A. Office Visit 10/13/2017 [facility] Jun Cowan E11.65 Type 2 diabetes 1:40p Medicine - [place], mellitus with Rd M.D. hyperglycemia Z12.31 Encntr screen mammogram for malignant neoplasm of breast Z12.11 Encounter for screening for malignant neoplasm of colon Office Visit 10/11/2017 Orthopedic Naveed Lutz M75.31 Calcific tendinitis 1:30p Services Of MD Venecia of right shoulder C.M.A. Office Visit 09/28/2017 [facility] Jun Cowan E11.65 Type 2 diabetes 1:20p Medicine - Ayla, mellitus with [place] M.DJarred hyperglycemia M79.645 Pain in left finger(s) E03.9 Hypothyroidism, unspecified Office Visit 09/19/2017 [facility] Jun Cowan E11.65 Type 2 diabetes 2:40p Jaylene Aguila M.D. mellitus with [address] hyperglycemia M54.5 Low back pain Office Visit 08/17/2017 2:10p [facility] [place] F33.3 Major depressv Medicine - LUZ Berrios disorder, [address] recurrent, severe w psych symptoms R45.851 Suicidal ideations Office Visit 08/11/2017 1:20p [facility] [place] Pachlaine, F31.31 Bipolar Medicine - Adelina disorder, [address] current episode depressed, mild M51.16 Intervertebral disc disorders w radiculopathy, lumbar region K63.5 Polyp of colon K21.9 Gastro-esophageal reflux disease without esophagitis Office Visit 07/15/2017 11:00a [facility] [place] E11.9 Type 2 diabetes Jaylene Aguila M.D. 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 syndrome, left upper limb Office Visit 05/11/2017 Surgical Senia Lorne R10.9 Unspecified 10:45a [facility] MD abdominal pain Office Visit 06/14/2016 [facility] L02.91 Cutaneous 1:40p Assoc,matthieu Grant WOOD MILLER abscess, Hospitalists unspecified E11.9 Type 2 diabetes mellitus without complications Z79.4 care home (current) use of insulin Office Visit 06/13/2016 1:39p [facility] Alexus Earl, L02.91 Cutaneous Assoc,matthieu Boyle abscess, Hospitalists unspecified E11.9 Type 2 diabetes mellitus without complications Z79.4 care home (current) use of insulin Office Visit 05/21/2016 [facility] T39.1x2A Poisoning by 3:25p Assocmatthieu M.D. 4-Aminophenol Hospitalists derivatives, self-harm, init E11.9 Type 2 diabetes mellitus without complications F79 Unspecified intellectual disabilities Office Visit 05/20/2016 [facility] T39.1x2A Poisoning by 3:24p Assmatthieu drake M.D. 4-Aminophenol Hospitalists derivatives, self-harm, init E11.9 Type 2 diabetes mellitus without complications F79 Unspecified intellectual disabilities Office Visit 05/19/2016 [facility] T39.1x2A Poisoning by 3:24p Assocmatthieu M.D. 4-Aminophenol Hospitalists derivatives, self-harm, init E11.9 Type 2 diabetes mellitus without complications F79 Unspecified intellectual disabilities Office Visit 05/18/2016 [facility] T39.1x2A Poisoning by 3:23p Assocmatthieu M.D. 4-Aminophenol Hospitalists derivatives, self-harm, init E11.9 Type 2 diabetes mellitus without complications F79 Unspecified intellectual disabilities Office Visit 05/17/2016 [facility] T39.1x2A Poisoning by 3:23p Assocmatthieu M.D. 4-Aminophenol Hospitalists derivatives, self-harm, init E11.9 Type 2 diabetes mellitus without complications F79 Unspecified intellectual disabilities [facility] Poisoning by 3:22p Assmatthieu drake M.D. 4-Aminophenol Hospitalists derivatives, self-harm, init E11.9 Type 2 diabetes mellitus without complications F79 Unspecified intellectual disabilities Office Visit 05/15/2016 [facility] T39.1x2A Poisoning by 3:22p Assmatthieu drake M.D. 4-Aminophenol Hospitalists derivatives, self-harm, init E11.9 Type 2 diabetes mellitus without complications F79 Unspecified intellectual disabilities [facility]A Poisoning by 3:22p Assoc,matthieu Daly D.O. 4-Aminophenol Hospitalists derivatives, self-harm, init E11.9 Type 2 diabetes mellitus without complications F79 Unspecified intellectual disabilities Office [facility] T[facility].1x2A Poisoning by 3:21p Assoc,matthieu Daly D.O. 4-Aminophenol Hospitalists derivatives, self-harm, init E11.9 Type 2 diabetes mellitus without complications F79 Unspecified intellectual disabilities Office Visit 05/12/2016 [facility] Yara T39.1x2A Poisoning by 3:21p Assoc,matthieu Daly D.O. 4-Aminophenol Hospitalists derivatives, self-harm, init E11.9 Type 2 diabetes mellitus without complications F79 Unspecified intellectual disabilities Office [facility] T[facility]A Poisoning by Visit 3:20p Assoc,matthieu Snell PA 4-Aminophenol Hospitalists derivatives, self-harm, init E11.9 Type 2 diabetes mellitus without complications F79 Unspecified intellectual disabilities Office Visit 05/03/2016 [facility] Anu R73.9 Hyperglycemia, 11:09a Assoc,matthieu Diaz, DO unspecified Hospitalists J40 Bronchitis, not specified as acute or chronic G89.4 Chronic pain syndrome Office Visit 04/07/2016 3:52p [facility] Ml R40.4 Transient Assocmatthieu M.D. alteration of Hospitalists awareness E13.9 Other specified diabetes mellitus without complications F79 Unspecified intellectual disabilities Z91.19 Patient's noncompliance w oth medical treatment and regimen Office Visit 04/06/2016 3:52p [facility] Ml R40.4 Transient Assocmatthieu M.D. alteration of Hospitalists awareness E13.9 Other specified diabetes mellitus without complications F79 Unspecified intellectual disabilities Z91.19 Patient's noncompliance w oth medical treatment and regimen Office Visit 04/05/2016 3:51p [facility] Yara R40.4 Transient Assocmatthieu D.O. alteration of Hospitalists awareness E13.9 Other specified diabetes mellitus without complications F79 Unspecified intellectual disabilities Z91.19 Patient's noncompliance w oth medical treatment and regimen Office Visit 04/04/2016 3:51p [facility] Yara R40.4 Transient Assoc,matthieu Daly D.O. alteration of Hospitalists awareness E13.9 Other specified diabetes mellitus without complications F79 Unspecified intellectual disabilities Z91.19 Patient's noncompliance w oth medical treatment and regimen Office Visit 04/03/2016 3:50p [facility] Rosi R40.4 Transient Assoc,pc Juanita, LUZ alteration of Hospitalists awareness E13.9 Other specified diabetes mellitus without complications F79 Unspecified intellectual disabilities Z91.19 Patient's noncompliance w oth medical treatment and regimen Office Visit 10/01/2015 10:08a [facility] Gray M54.31 Sciatica, right Assoc,pc Fabien, N.P. side Hospitalists E11.9 Type 2 diabetes mellitus without complications F60.3 Borderline personality disorder Office Visit 09/28/2015 10:06a [facility] Ml M54.31 Sciatica, right Assoc,matthieu Mosquera M.D. side Hospitalists E11.9 Type 2 diabetes mellitus without complications Office Visit 04/24/2015 [facility] Conner 276.1 Hyposmolality & Or 1:31p matthieu Lowe M.D. Hyponatremia Hospitalists 296.7 Bipolar I Disorder Current NOS 301.83 Borderline Personality Disorder Office Visit 04/23/2015 [facility] Conner 276.1 Hyposmolality & Or 1:30p Assmatthieu drake M.D. Hyponatremia Hospitalists 250.00 Diabetes Mellitus W/O Compl Type II Or Unspec Controlled 296.7 Bipolar I Disorder Current NOS 301.83 Borderline Personality Disorder Office Visit 04/22/2015 [facility] Quique 276.1 Hyposmolality & Or 1:29p Assocmatthieu M.D. Hyponatremia Hospitalists 250.00 Diabetes Mellitus W/O Compl Type II Or Unspec Controlled 301.83 Borderline Personality Disorder Office Visit 04/21/2015 [facility] 276.1 Hyposmolality & Or 1:28p Assoc,pc Fabien, N.P. Hyponatremia Hospitalists 296.7 Bipolar I Disorder Current NOS 301.83 Borderline Personality Disorder 250.00 Diabetes Mellitus W/O Compl Type II Or Unspec Controlled Office Visit 11/27/2014 [facility] Sherita 244.9 Hypothyroidism 8:42a Assoc,matthieu Lui M.D. Other Unspec Hospitalists 250.02 Diabetes Mellitus W/O Compl Type II Or Unspec Type Uncontrol 301.83 Borderline Personality Disorder Office [facility] Poisoning By Other 4:07p Assoc,matthieu Daly D.O. Antidepressants Hospitalists 300.9 Nonpsychotic Disorders NOS 311 Depressive Disorder Not Elsewhere Spec [facility] Po[facility]ing By Other Visit 4:35p Assoc,matthieu Grajeda M.D. Antidepressants Hospitalists 300.9 Nonpsychotic Disorders NOS 311 Depressive Disorder Not Elsewhere Spec V11.1 History Personal Affective Disorder Office Visit 10/18/2009 1:00a [facility] Jase Edin, 789.00 Pain Abdominal Assocmatthieu M.D. Unspec Site Hospitalists 787.03 Vomiting Alone 790.29 Other Abnormal Glucose 250.02 Diabetes Mellitus W/O Compl Type II Or Unspec Type Uncontrol Office Visit 10/17/2009 3:00a [facility] Jase Lambertick, 790.29 Other Abnormal Assocmatthieu M.D. Glucose Hospitalists 789.00 Pain Abdominal Unspec Site 295.70 Schizoaffective Disorder NOS 401.9 Hypertension Unspec Office Visit 10/16/2009 12:15a [facility] Sherita 790.29 Other Abnormal Assoc,matthieu Marshall M.D. Glucose Hospitalists 296.80 Bipolar Disorder NOS Plan of Treatment Future Appointment(s):11/01/2018 2:30 pm - Consuelo Corrales PA-C at [facility]01/02/2019 2:40 pm - Rosa Schroeder MD at [facility] Internal Medicine [facility]10/18/2018 - RAÚL Gardiner-CM51.26 Other intervertebral disc displacement, lumbar regionReferral:Angela Rawls MD, Pain Management- anesthesiFollow up:Refer to Dr. Rawls for LESI L5-S1 right. Follow up in office here 1-2 weeks after
--- NOTE | 2018-11-21 22:40 | ED ---
Complex/Multi-Sys Presentation - HPI Summary HPI Summary: Patient is a 53 y/o F presenting to ED after having swallowed 1 AAA battery. Per triage, "Pt also states that "she is seeing things, like theyr touching her "." Patient lives at [place], patient states that "They are trying everything to get rid of me". No SI, HI reported. No vomiting, no abdominal pain is reported. PMHx of depression, anxiety, diabetes. On triage, pain is denied. Nothing is noted to aggravate/alleviate Sx. Home medications and allergies are reviewed. - History Of Current Complaint Chief Complaint: EDMentalHealth Hx Obtained From: Patient Onset/Duration: Still Present Timing: Constant Severity Currently: None - pain denied Aggravating Factor(s): nothing Alleviating Factor(s): nothing Associated Signs And Symptoms: Positive: Other - reports having swallowed AAA battery, visual hallucinations, no SI, no HI,. Negative: Vomiting, Abdominal Pain - Allergies/Home Medications Allergies/Adverse Reactions: Allergies Allergy/AdvReac Type Severity Reaction Status Date / Time ciprofloxacin Allergy Dizziness Verified 11/22/18 02:45 latex Allergy Rash Verified 11/22/18 02:45 lithium Allergy See Comment Verified 11/22/18 02:45 lurasidone [From Latuda] Allergy Altered Verified 11/22/18 02:45 Mental Status nalbuphine Allergy Unknown Verified 11/22/18 02:45 Reaction Details naldemedine Allergy Unknown Verified 11/22/18 02:45 Reaction Details Penicillins Allergy Rash Verified 11/22/18 02:45 perphenazine Allergy Unknown Verified 11/22/18 02:45 Reaction Details Sulfa (Sulfonamide Allergy Hives Verified 11/22/18 02:45 Antibiotics) tramadol Allergy Altered Verified 11/22/18 02:45 Mental Status ENVIRONMENTAL Allergy Mild SINUS Uncoded 11/22/18 02:45 Home Medications: Home Medications Fluticasone Furoate [Arnuity Ellipta] 100 mcg INH DAILY 11/22/18 [History Confirmed 11/22/18] Nicotine GUM* 2 mg PO Q2H PRN 11/22/18 [History Confirmed 11/22/18] Nicotine PATCH 21 MG/24 HR* 21 mg TRANSDERM DAILY 11/22/18 [History Confirmed ] Pancrelipase (NF) [Creon (NF)] 1,000 units PO TID WITH MEALS 11/22/18 [History Confirmed 11/22/18] traZODone TAB* [Desyrel TAB*] 300 mg PO BEDTIME 11/22/18 [History Confirmed ] PMH/Surg Hx/FS Hx/Imm Hx Endocrine/Hematology History: Reports: Hx Diabetes, Hx Thyroid Disease, Other Endocrine/Hematological Disorders - Chronic pancreatitis Denies: Hx Anticoagulant Therapy Cardiovascular History: Reports: Hx Hypertension, Other Cardiovascular Problems/ Disorders - HX OF PSVT 04/2008 Denies: Hx Pacemaker/ICD Respiratory History: Reports: Hx Asthma, Hx Seasonal Allergies, Hx Sleep Apnea - HX OF IN THE PAST Denies: Hx Chronic Bronchitis, Hx Chronic Obstructive Pulmonary Disease (COPD ), Hx Cystic Fibrosis, Hx Lung Cancer, Hx Pleural Effusion, Hx Pneumonia, Hx Pulmonary Edema, Hx Pulmonary Embolism, Other Respiratory Problems/Disorders GI History: Reports: Hx Gall Bladder Disease, Hx Gastroesophageal Reflux Disease - ON MEDICATION FOR, Hx Gastrointestinal Bleed, Hx Irritable Bowel, Other GI Disorders - HX OF pancreatitis- STATES LAST ABOUT 2 WEEKS AGO- STATES SLIGHT CASE Denies: Hx Ulcer History: Reports: Other Problems/Disorders - urinary incontinence Denies: Hx Dialysis, Hx Renal Disease Musculoskeletal History: Reports: Hx Arthritis, Hx Back Problems, Other Musculoskeletal History - GEN MUSCULOSKELETAL PAIN Denies: Hx Rheumatoid Arthritis, Hx Bursitis, Hx Congenital Bone Abnormalities, Hx Fibromyalgia, Hx Gout, Hx Orthopedic Injury, Hx Osteoporosis, Hx Scoliosis, Hx Tendonitis Sensory History: Reports: Hx Contacts or Glasses, Hx Vision Problem Denies: Hx Cataracts, Hx Eye Injury, Hx Eye Prosthesis, Hx Glaucoma, Hx Macular Degeneration, Hx Hearing Aid, Other Sensory Impairments Opthamlomology History: Reports: Hx Contacts or Glasses, Hx Vision Problem Denies: Hx Cataracts, Hx Eye Injury, Hx Eye Prosthesis, Hx Glaucoma, Hx Macular Degeneration, Other Sensory Impairments Neurological History: Reports: Hx Developmental Delay - intellectual disability , Hx Seizures - STATES WITH ALLERGIC REACTION TO TRAMADOL Denies: Hx Dementia, Hx Headaches, Other Neuro Impairments/Disorders Psychiatric History: Reports: Hx Anxiety, Hx Depression, Hx Post Traumatic Stress Disorder, Hx Inpatient Treatment, Hx Community Mental Health Tx, Hx Bipolar Disorder - pt manic, Hx Suicide Attempt, Hx of Violent Episodes Against Others, Other Psychiatric Issues/Disorders - PSYCHOSIS NOS, HX OF PTSD, SCHIZOAFFECTIVE DISORDER, BORDERLINE PERSONALITY Denies: Hx Attention Deficit Hyperactivity Disorder, Hx Eating Disorder, Hx Panic Disorder, Hx Schizophrenia, Hx Substance Abuse - Cancer History Cancer Type, Location and Year: None reported - Surgical History Surgery Procedure, Year, and Place: 2011-CATARACT EXTRACTION. GALLBLADDER REMOVED Hx Anesthesia Reactions: No - Immunization History Date of Tetanus Vaccine: unk Date of Influenza Vaccine: fall 2017 Infectious Disease History: No Infectious Disease History: Denies: Hx Clostridium Difficile, Hx Hepatitis, Hx Human Immunodeficiency Virus (HIV), Hx of Known/Suspected MRSA, Hx Shingles, Hx Tuberculosis, Hx Known/ Suspected VRE, Hx Known/Suspected VRSA, History Other Infectious Disease, Traveled Outside the [place] in Last 30 Days - Family History Known Family History: Positive: Other - Anxiety and depression, [place] - father Negative: Cardiac Disease, Hypertension, Diabetes Family History: Depression and anxiety - Social History Alcohol Use: None Hx Substance Use: Yes Substance Use Type: Reports: None Hx Tobacco Use: Yes Smoking Status (MU): Current Every Day Smoker Type: Cigarettes Amount Used/How Often: 1/2 PPD FOR LAST 30 DAYS, NO OTHER TOBACCO Length of Time of Smoking/Using Tobacco: since she was "young" Have You Smoked in the Last Year: Yes - Patient has smoked within the last 30 days Review of Systems Constitutional: Other - REPOTREDLY SWALLOWED AAA BATTERY Negative: Abdominal Pain, Vomiting Psychological: Other - REPORTS VISUAL HALLUCINATIONS, NO SI NO HI AT PRESENT All Other Systems Reviewed And Are Negative: Yes Physical Exam - Summary Physical Exam Summary: Appearance: Well-appearing, Well-nourished, lying in bed comfortably Skin: Warm, dry, no obvious rash Eyes: sclera anicteric, no conjunctival pallor ENT: mucous membranes moist, pharynx appears normal Neck: Supple, nontender Respiratory: Clear to auscultation, no signs of respiratory distress Cardiovascular: Normal S1, S2. No murmurs. Normal distal pulses in tibial and radial bilaterally. Abdomen: Soft, nontender, normal active bowel sounds present Musculoskeletal: Normal, Strength/ROM Intact Neurological: A&Ox3, awake and alert, mentation is normal, speech is fluent and appropriate Psychiatric: affect is normal, does not appear anxious or depressed Triage Information Reviewed: Yes Vital Signs On Initial Exam: Initial Vitals Temp Pulse Resp BP Pulse Ox 97.0 F 101 18 157/72 98 11/21/18 22:22 11/21/18 22:22 11/21/18 22:22 11/21/18 22:22 11/21/18 22:22 Vital Signs Reviewed: Yes Diagnostics - Vital Signs Vital Signs Temp Pulse Resp BP Pulse Ox 11/21/18 22:22 97.0 F 101 18 157/72 98 - Laboratory Lab Statement: Any lab studies that have been ordered have been reviewed, and results considered in the medical decision making process. - Radiology chest x-ray Radiology Interpretation Completed By: ED Physician Summary of Radiographic Findings: no acute process, pending official report abdomen x-ray Radiology Interpretation Completed By: ED Physician Summary of Radiographic Findings: Cylindrical shaped object resembling battery at lower abdomen, no sign of obstruction, pending official report. Re-Evaluation - Re-Evaluation First Eval Re-Evaluation Time: 22:40 Comment: Patient reported to nurse that she took 70 units, then 26 units of insulin in suicidal gesture at around 1730. Finger stick 58, patient to be given meal. MHE to be obtained. Second Eval Re-Evaluation Time: 23:35 Comment: Patient has refused bloodwork. Third Eval Re-Evaluation Time: 01:19 Comment: Patient had been medically cleared, patient to receive MHE. Complex Multi-Symp Course/Dx Course Of Treatment: Patient is a 53 y/o F presenting to ED after having swallowed 1 AAA battery. Per triage, "Pt also states that "she is seeing things , like theyr touching her"." Patient lives at [place], patient states that "They are trying everything to get rid of me". No SI, HI reported. No vomiting, no abdominal pain is reported. PMHx of depression, anxiety, diabetes. Physical exam is unremarkable. CXR no acute process. Abomen x-ray Cylindrical shaped object resembling battery at lower abdomen, no sign of obstruction. Patient later reported to nurse that she took 70 units, then 26 units of insulin in suicidal gesture at around 1730. Finger stick 58, patient to be given meal. MHE to be obtained. Urine tox was negative, UA showed leukocyte esterase 3+, WBC 2+, RBC 1+, squamous peith cells present, bacteria 1+. Patient refused bloodwork. Patient was medically cleared for MHE. Patient's case was discussed with Dr. Tierney, patient will be discharged to home with Dx of adjustment disorder. - Diagnoses Provider Diagnoses: Swallowed foreign body, Adjustment disorder - Physician Notifications Discussed Care Of Patient With: Armand Tierney Time Discussed With Above Provider: 04:00 Instructed by Provider To: Other - Patient's case was discussed with Dr. Tierney , patient will be discharged to home with Dx of adjustment disorder. Discharge - Sign-Out/Discharge Documenting (check all that apply): Patient Departure - discharge Patient Received Moderate/Deep Sedation with Procedure: No - Discharge Plan Condition: Good Disposition: HOME Patient Education Materials: Foreign Body Ingestion (ED) Referrals: Rosa Schroeder MD [Primary Care Provider] - Additional Instructions: The battery is in the abdomen is will likely pass. It should not cause any problems, but she should have followup x rays in 3 days if there is no documented passage of the battery in the stools. In the unlikely event that she develops signs of obstruction like vomiting or severe abdominal pain, we should see her back here. - Attestation Statements Document Initiated by Aminahe: Yes Documenting Scribe: ERIN VELOZ Provider For Whom Noam is Documenting (Include Credential): DUNCAN GERARD MD Scribe Attestation: ERIN Rosales, scribed for DUNCAN GERARD MD on 11/22/18 at 0416. Status of Scribe Document: Ready
[2018-11-21 22:56] LABS: Urine Appearance Cloudy; Urine Bacteria 1+ (Absent); Urine Bilirubin Negative (Negative); Urine Blood Negative (Negative); Urine Color Yellow; Urine Glucose Negative (Negative); Urine Ketones Negative (Negative); Urine Nitrite Negative (Negative); Urine Protein Negative (Negative); Urine Red Blood Cell 1+(3-5/hpf) (Absent); Urine Specific Gravity 1.016 (1.010-1.030); Urine Squamous Epithelial Cell Present (Absent); Urine Urobilinogen Negative (Negative); Urine White Blood Cell 2+(11-20/hpf) (Absent)
[2018-11-21 23:16] LABS: Urine Benzodiazepine Screen None Detected (None Detect); Urine Opiates Screen None Detected (None Detect)
[2018-11-22] MEDS ORDERED: Cyclobenzaprine TAB* 10 MG PO PRN (03:22)
[2018-11-22 04:48] VITALS: BP 159/88
--- NOTE | 2018-11-22 13:15 | PN ---
Progress Note - Progress Note Date of Service: 11/21/18 Note: Final radiology abd. xr read: IMPRESSION: RADIOPAQUE FOREIGN BODY CONSISTENT WITH HISTORY OF FOREIGN BODY INGESTION. NO OBSTRUCTION. R1F FB noted by Dr. Steinberg and pt. treated appropriately.
== END 2018-11-22 04:48 | disposition home or self-care (01) ==
LOC: ED 21:52
DX: T18.4XXA Foreign body in colon, initial encounter (principal); T38.3X2A Poisoning by insulin and oral hypoglycemic [antidiabetic] drugs, intentional self-harm, initial encounter; X58.XXXA Exposure to other specified factors, initial encounter; Y93.9 Activity, unspecified; Y92.129 Unspecified place in nursing home as the place of occurrence of the external cause; F43.20 Adjustment disorder, unspecified; R44.1 Visual hallucinations; E11.9 Type 2 diabetes mellitus without complications; Z79.4 Long term (current) use of insulin; E07.9 Disorder of thyroid, unspecified; K86.1 Other chronic pancreatitis; I10 Essential (primary) hypertension; J45.909 Unspecified asthma, uncomplicated; K21.9 Gastro-esophageal reflux disease without esophagitis; F41.9 Anxiety disorder, unspecified; F32.9 Major depressive disorder, single episode, unspecified; Z88.5 Allergy status to narcotic agent; Z88.0 Allergy status to penicillin; Z88.2 Allergy status to sulfonamides; Z88.8 Allergy status to other drugs, medicaments and biological substances; Z88.1 Allergy status to other antibiotic agents; Z91.040 Latex allergy status; F17.210 Nicotine dependence, cigarettes, uncomplicated
CPT/HCPCS: 71046; 74018; 80307; 81003; 81015; 87086; 99285

== ENCOUNTER 2018-12-04 23:06 | Emergency (ER) | payer MEDICARE, MEDICAID ==
--- NOTE | 2018-12-05 01:02 | ED ---
Medical Screening - HPI Summary HPI Summary: Patient with history of mental illness complains of running away from [facility] because she doesn't feel good there, and swallowing for batteries here in the waiting room of the ED because she does not want to go back to [facility] [place]. Denies any symptoms of illness, but also complains of chronic back pain, currently rated 8/10. Has history of swallowing batteries on prior occasions. Patient states she took a Percocet 10 mg at 6 PM for back pain. Denies SI, HI. Denies fever, cough, sore throat, CP, SOB, N/V/D, abdominal pain, change in urine, change in BM. Medical history is DM, borderline personality, PTSD, mental illness. Denies EtOH or recreational drug use today. Positive smoker. - History of Current Complaint Chief Complaint: EDGeneral Stated Complaint: MHE PER EMS Time Seen by Provider: 12/05/18 00:57 Onset/Duration: Started Hours Ago PMH/Surg Hx/FS Hx/Imm Hx Endocrine/Hematology History: Reports: Hx Diabetes, Hx Thyroid Disease, Other Endocrine/Hematological Disorders - Chronic pancreatitis Denies: Hx Anticoagulant Therapy Cardiovascular History: Reports: Hx Hypertension, Other Cardiovascular Problems/ Disorders - HX OF PSVT 04/2008 Denies: Hx Pacemaker/ICD Respiratory History: Reports: Hx Asthma, Hx Seasonal Allergies, Hx Sleep Apnea - HX OF IN THE PAST Denies: Hx Chronic Bronchitis, Hx Chronic Obstructive Pulmonary Disease (COPD ), Hx Cystic Fibrosis, Hx Lung Cancer, Hx Pleural Effusion, Hx Pneumonia, Hx Pulmonary Edema, Hx Pulmonary Embolism, Other Respiratory Problems/Disorders GI History: Reports: Hx Gall Bladder Disease, Hx Gastroesophageal Reflux Disease - ON MEDICATION FOR, Hx Gastrointestinal Bleed, Hx Irritable Bowel, Other GI Disorders - HX OF pancreatitis- STATES LAST ABOUT 2 WEEKS AGO- STATES SLIGHT CASE Denies: Hx Ulcer History: Reports: Other Problems/Disorders - urinary incontinence Denies: Hx Dialysis, Hx Renal Disease Musculoskeletal History: Reports: Hx Arthritis, Hx Back Problems, Other Musculoskeletal History - GEN MUSCULOSKELETAL PAIN Denies: Hx Rheumatoid Arthritis, Hx Bursitis, Hx Congenital Bone Abnormalities, Hx Fibromyalgia, Hx Gout, Hx Orthopedic Injury, Hx Osteoporosis, Hx Scoliosis, Hx Tendonitis Sensory History: Reports: Hx Contacts or Glasses, Hx Vision Problem Denies: Hx Cataracts, Hx Eye Injury, Hx Eye Prosthesis, Hx Glaucoma, Hx Macular Degeneration, Hx Hearing Aid, Other Sensory Impairments Opthamlomology History: Reports: Hx Contacts or Glasses, Hx Vision Problem Denies: Hx Cataracts, Hx Eye Injury, Hx Eye Prosthesis, Hx Glaucoma, Hx Macular Degeneration, Other Sensory Impairments Neurological History: Reports: Hx Developmental Delay - intellectual disability , Hx Seizures - STATES WITH ALLERGIC REACTION TO TRAMADOL Denies: Hx Dementia, Hx Headaches, Other Neuro Impairments/Disorders Psychiatric History: Reports: Hx Anxiety, Hx Depression, Hx Post Traumatic Stress Disorder, Hx Inpatient Treatment, Hx Community Mental Health Tx, Hx Bipolar Disorder - pt manic, Hx Suicide Attempt, Hx of Violent Episodes Against Others, Other Psychiatric Issues/Disorders - PSYCHOSIS NOS, HX OF PTSD, SCHIZOAFFECTIVE DISORDER, BORDERLINE PERSONALITY Denies: Hx Attention Deficit Hyperactivity Disorder, Hx Eating Disorder, Hx Panic Disorder, Hx Schizophrenia, Hx Substance Abuse - Cancer History Cancer Type, Location and Year: None reported - Surgical History Surgery Procedure, Year, and Place: 2011-CATARACT EXTRACTION. GALLBLADDER REMOVED Hx Anesthesia Reactions: No - Immunization History Date of Tetanus Vaccine: unk Date of Influenza Vaccine: fall 2017 Infectious Disease History: No Infectious Disease History: Denies: Hx Clostridium Difficile, Hx Hepatitis, Hx Human Immunodeficiency Virus (HIV), Hx of Known/Suspected MRSA, Hx Shingles, Hx Tuberculosis, Hx Known/ Suspected VRE, Hx Known/Suspected VRSA, History Other Infectious Disease, Traveled Outside the US in Last 30 Days - Family History Known Family History: Positive: Other - Anxiety and depression, [place] - father Negative: Cardiac Disease, Hypertension, Diabetes Family History: Depression and anxiety - Social History Alcohol Use: None Hx Substance Use: Yes Substance Use Type: Reports: None Hx Tobacco Use: Yes Smoking Status (MU): Current Every Day Smoker Type: Cigarettes Amount Used/How Often: 1/2 PPD FOR LAST 30 DAYS, NO OTHER TOBACCO Length of Time of Smoking/Using Tobacco: since she was "young" Have You Smoked in the Last Year: Yes - Patient has smoked within the last 30 days Review of Systems Constitutional: Negative Eyes: Negative ENT: Negative Cardiovascular: Negative Respiratory: Negative Gastrointestinal: Negative Genitourinary: Negative Musculoskeletal: Negative Skin: Negative Neurological: Negative Positive: Anxious, Depressed All Other Systems Reviewed And Are Negative: Yes Physical Exam - Summary Physical Exam Summary: Physical exam unremarkable. Patient alert and oriented. Rambling answers to questions. Triage Information Reviewed: Yes Vital Signs On Initial Exam: Initial Vitals Temp Pulse Resp BP Pulse Ox 97.9 F 75 16 164/89 99 12/04/18 23:21 12/04/18 23:21 12/04/18 23:21 12/04/18 23:21 12/04/18 23:21 Vital Signs Reviewed: Yes Appearance: Positive: Well-Appearing Skin: Positive: Warm Head/Face: Positive: Normal Head/Face Inspection Eyes: Positive: Normal ENT: Positive: Normal ENT inspection Neck: Positive: Supple Respiratory/Lung Sounds: Positive: Clear to Auscultation Cardiovascular: Positive: Normal Abdomen Description: Positive: Nontender Musculoskeletal: Positive: Normal Neurological: Positive: Normal Psychiatric: Positive: Normal AVPU Assessment: Alert - [place] Coma Scale Best Eye Response: 4 - Spontaneous Best Motor Response: 6 - Obeys Commands Best Verbal Response: 5 - Oriented Coma Scale Total: 15 Diagnostics - Vital Signs Vital Signs Temp Pulse Resp BP Pulse Ox 12/04/18 23:21 97.9 F 75 16 164/89 99 - Laboratory Result Diagrams: 12/05/18 01:16 12/05/18 01:16 Lab Statement: Any lab studies that have been ordered have been reviewed, and results considered in the medical decision making process. Re-Evaluation - Re-Evaluation First Eval Re-Evaluation Time: 09:50 Change: Unchanged Comment: As per msw, [place] [facility] is concerned that she consumed lithium batteries and does not want her to be discharged. Course/Dx - Course Course Of Treatment: Patient with history of mental illness complains of running away from [facility] because she doesn't feel good there, and swallowing for batteries here in the waiting room of the ED because she does not want to go back to [facility]. Denies any symptoms of illness, but also complains of chronic back pain, currently rated 8/10. Has history of swallowing batteries on prior occasions. Patient states she took a Percocet 10 mg at 6 PM for back pain. Denies SI, HI. Denies fever, cough, sore throat, CP , SOB, N/V/D, abdominal pain, change in urine, change in BM. Medical history is DM, borderline personality, PTSD, mental illness. Denies EtOH or recreational drug use today. Positive smoker. Physical exam unremarkable. Patient alert and oriented. Rambling answers to questions. Vital signs within normal limits. WBC 11.5. Labs otherwise the patient baseline. X-ray of abdomen and chest positive for for AAA batteries in stomach. History patient has history of swallowing and passing batteries. Discussed patient with Dr. Madhav PRICE on-call, who recommended no treatment at this time other than to wait for batteries to pass. Patient evaluated by mental health. Recommended for voluntary admission to [facility] with diagnosis of mood disorder. - Diagnoses Provider Diagnoses: Stress and adjustment reaction Discharge - Sign-Out/Discharge Documenting (check all that apply): Patient Departure Patient Received Moderate/Deep Sedation with Procedure: No - Discharge Plan Condition: Stable Disposition: HALFWAY FACILITY Patient Education Materials: Stress (ED), Mood Disorders (ED) Referrals: Rosa Schroeder MD [Primary Care Provider] - - Billing Disposition and Condition Condition: STABLE Disposition: Detention Facility
[2018-12-05 01:23] LABS: ABS Basophils 0.1 10^3/ul (0-0.2); ABS Eosinophils 0.1 10^3/ul (0-0.6); ABS Lymphocytes 4.1 10^3/ul (1.0-4.8); ABS Monocytes 0.6 10^3/ul (0-0.8); ABS Neutrophils 6.6 10^3/ul (1.5-7.7); Eosinophil % 1.1 %; Hematocrit 42 % (35-47); Hemoglobin 13.9 g/dL (12.0-16.0); Lymphocyte % 35.6 %; Mean Corpuscular HGB Conc 33 g/dL (31-36); Mean Corpuscular Hemoglobin 30 pg (27-31); Mean Corpuscular Volume 90 fL (80-97); Mean Platelet Volume 8.5 fL (7.4-10.4); Platelet Count 254 10^3/uL (150-450); Red Blood Count 4.65 10^6 /uL (3.70-4.87); Red Cell Distribution Width 15 % (10.5-15); White Blood Count 11.5 10^3/uL (3.5-10.8)
[2018-12-05 01:40] LABS: ALT 44 U/L (7-52); AST 46 U/L (13-39); Albumin 4.1 g/dL (3.2-5.2); Albumin/Globulin Ratio 1.1 (1-3); Alkaline Phosphatase 132 U/L (34-104); Anion Gap 5 mmol/L (2-11); BUN/Creatinine Ratio 13.9 (8-20); Blood Urea Nitrogen 11 mg/dL (6-24); CO2 Carbon Dioxide 27 mmol/L (22-32); Calcium 9.5 mg/dL (8.6-10.3); Chloride 107 mmol/L (101-111); EGFR African American 92.5 (>60); EGFR Non-African American 76.4 (>60); Globulin 3.6 g/dL (2-4); Glucose 87 mg/dL (70-100); Potassium 3.9 mmol/L (3.5-5.0); Sodium 139 mmol/L (135-145); Total Protein 7.7 g/dL (6.4-8.9)
[2018-12-05 01:46] LABS: Acetaminophen < 15 mcg/mL; Alcohol < 10 mg/dL (<10); Salicylate < 2.50 mg/dL (<30)
[2018-12-05 02:01] LABS: TSH (Thyroid Stimulating Horm) 8.38 mcIU/mL (0.34-5.60)
[2018-12-05] MEDS ORDERED: Al Hydrox/Mg Hydrox/Simet LIQ* 30 ML UDC PO PRN (05:10)
[2018-12-05] MEDS ORDERED: Cetirizine* 10 MG TAB PO PRN (05:12)
[2018-12-05] MEDS ORDERED: hydrOXYzine HCL TAB* 25 MG PO PRN (05:12)
[2018-12-05] MEDS ORDERED: Ondansetron TAB* 4 MG PO PRN (05:14)
[2018-12-05] MEDS ORDERED: Albuterol HFA INHALER* 8 gm MDI INH PRN (05:15)
[2018-12-05] MEDS ORDERED: Nicotine PATCH 21 MG/24 HR* PATCH TRANSDERM SCH (09:00)
[2018-12-05] MEDS ORDERED: Insulin GLARGINE(*) 1 UNITS UNIT SUBCUT SCH (09:00)
[2018-12-05] MEDS ORDERED: Multivitamins/Minerals TAB PO SCH (09:00)
[2018-12-05] MEDS ORDERED: Losartan TAB* 25 MG PO SCH (09:00)
[2018-12-05] MEDS ORDERED: OLANzapine TAB* 5 MG PO SCH (09:00)
--- NOTE | 2018-12-05 09:31 | ED ---
Progress - Progress Note Progress Note: Receiving sign out from RAÚL Eng at shift change. Pt was initially a psychiatric admission, however pt is now discharged back to [facility] as per Dr. Cunningham. Final dx of adjustment stress. Repeat Abdomen XR: 3-4 bodies are noted overlying the proximal pelvis. ED physician reviewed radiology report. Re-Evaluation - Re-Evaluation First Eval Re-Evaluation Time: 09:50 Change: Unchanged Comment: As per retail loan originator assistant, [facility] is concerned that she consumed lithium batteries and does not want her to be discharged. Course/Dx - Course Course Of Treatment: Receiving sign out from RAÚL Eng at shift change. Pt was initially a psychiatric admission, however pt is now discharged back to [facility] as per Dr. Cunningham. He believes that this is her baseline and her behavior was out of frustration with the staff. Pt denies any SI. assisted found a pack of lithium batteries in her house, so are concerned that she is being discharged. Spoke to poison control who said that as long as the batteries are distal to the esophagus, it doesn't matter if they are lithium. Repeat abdomen XR revealed the batteries now in the pelvis area. Final dx of adjustment stress. Pt is agreeable with this plan. - Diagnoses Provider Diagnoses: Stress and adjustment reaction - Provider Notifications Discussed Care Of Patient With: Raheem Cunningham Time Discussed With Above Provider: 09:20 Instructed by Provider To: Other - Pt can be discharged to [facility]. At 10:[address] Corey, who would like poison control to be called. At 10:30 poison control said as long as the batteries are in the stomach and distal there is nothing to do. It doesnt matter that they are [place]. Discharge - Sign-Out/Discharge Documenting (check all that apply): Patient Departure - Discharge, Receiving Sign-Out Receiving patient FROM: David Bull Patient Received Moderate/Deep Sedation with Procedure: No - Discharge Plan Condition: Stable Disposition: [facility] Patient Education Materials: Stress (ED), Mood Disorders (ED) Referrals: Rosa Schroeder MD [Primary Care Provider] - - Billing Disposition and Condition Condition: STABLE Disposition: Residential Facility - Attestation Statements Document Initiated by Scribe: Yes Documenting Scribe: Lotus Flores Provider For Whom Scribe is Documenting (Include Credential): Lupis Cardoza MD Scribe Attestation: ILotus, scribed for Lupis Cardoza MD on 12/06/18 at 1243. Scribe Documentation Reviewed: Yes Provider Attestation: The documentation as recorded by the scribe, Lotus Flores accurately reflects the service I personally performed and the decisions made by me, Lupis Cardoza MD Status of Scribe Document: Viewed
[2018-12-05 12:27] VITALS: BP 148/72
[2018-12-05] MEDS ORDERED: Nicotine Patch Removal NOTE PATCH OFF SCH (21:00)
== END 2018-12-05 12:26 ==
LOC: ED 23:06
DX: F43.20 Adjustment disorder, unspecified (principal); I10 Essential (primary) hypertension; E11.9 Type 2 diabetes mellitus without complications; F60.3 Borderline personality disorder; F43.10 Post-traumatic stress disorder, unspecified; R69 Illness, unspecified; E07.9 Disorder of thyroid, unspecified; J45.909 Unspecified asthma, uncomplicated; K21.9 Gastro-esophageal reflux disease without esophagitis; K58.9 Irritable bowel syndrome, unspecified; K82.9 Disease of gallbladder, unspecified; R32 Unspecified urinary incontinence; F79 Unspecified intellectual disabilities; F41.9 Anxiety disorder, unspecified; F32.9 Major depressive disorder, single episode, unspecified; F17.210 Nicotine dependence, cigarettes, uncomplicated; Z91.5 Personal history of self-harm; Z79.899 Other long term (current) drug therapy
CPT/HCPCS: 36415; 71045; 74018; 74019; 80053; 80320; 80329; 84443; 85025; 96372; 99285; A9270-GY; G0480

== ENCOUNTER 2018-12-05 18:53 | Emergency (ER) | payer MEDICARE, MEDICAID ==
--- NOTE | 2018-12-05 20:04 | ED ---
Psychiatric Complaint - HPI Summary HPI Summary: This patient is a 53 year old F brought in by ambulance from [place] to ED with a chief complaint of SI and depression. She swallowed one lithium AA battery and tied a garbage bag around her head in an attempt to suffocate herself. She also states she swallowed 4 batteries yesterday and passed 1 in her BM today. Patient reports epigastric pain described as burning, and rates the pain 4/10 in severity. Symptoms aggravated by nothing. Symptoms alleviated by nothing. Patient denies HI. The patient was in the ED yesterday until 1200. She also hasnt eaten since then because she doesnt care to eat. She states that [place] wants to put her in home care. She also states that she has been taking her medications regularly. - History Of Current Complaint Chief Complaint: EDMentalHealth Time Seen by Provider: 12/05/18 19:27 Hx Obtained From: Patient Hx Last Menstrual Period: "last month" Onset/Duration: Lasting Days, Still Present Timing: Days Severity Currently: Moderate - 4/10 Character: Depressed Aggravating Factor(s): Nothing Alleviating Factor(s): Nothing Related History: Positive For: Prior Psychiatric Issues Has Suicidal: Reports: Thoughts, With A Plan, Demonstrates Gesture, Has Prior Attempt(s) Has Homicidal: Denies: Thoughts - Allergies/Home Medications Allergies/Adverse Reactions: Allergies Allergy/AdvReac Type Severity Reaction Status Date / Time ciprofloxacin Allergy Dizziness Verified 12/05/18 19:52 latex Allergy Rash Verified 12/05/18 19:52 lithium Allergy See Comment Verified 12/05/18 19:52 lurasidone [From Latuda] Allergy Altered Verified 12/05/18 19:52 Mental Status nalbuphine Allergy Unknown Verified 12/05/18 19:52 Reaction Details naldemedine Allergy Unknown Verified 12/05/18 19:52 Reaction Details Penicillins Allergy Rash Verified 12/05/18 19:52 perphenazine Allergy Unknown Verified 12/05/18 19:52 Reaction Details Sulfa (Sulfonamide Allergy Hives Verified 12/05/18 19:52 Antibiotics) tramadol Allergy Altered Verified 12/05/18 19:52 Mental Status ENVIRONMENTAL Allergy Mild SINUS Uncoded 12/05/18 19:52 PMH/Surg Hx/FS Hx/Imm Hx Endocrine/Hematology History: Reports: Hx Diabetes, Hx Thyroid Disease, Other Endocrine/Hematological Disorders - Chronic pancreatitis Denies: Hx Anticoagulant Therapy Cardiovascular History: Reports: Hx Hypertension, Other Cardiovascular Problems/ Disorders - HX OF PSVT 04/2008 Denies: Hx Pacemaker/ICD Respiratory History: Reports: Hx Asthma, Hx Seasonal Allergies, Hx Sleep Apnea - HX OF IN THE PAST Denies: Hx Chronic Bronchitis, Hx Chronic Obstructive Pulmonary Disease (COPD ), Hx Cystic Fibrosis, Hx Lung Cancer, Hx Pleural Effusion, Hx Pneumonia, Hx Pulmonary Edema, Hx Pulmonary Embolism, Other Respiratory Problems/Disorders GI History: Reports: Hx Gall Bladder Disease, Hx Gastroesophageal Reflux Disease - ON MEDICATION FOR, Hx Gastrointestinal Bleed, Hx Irritable Bowel, Other GI Disorders - HX OF pancreatitis- STATES LAST ABOUT 2 WEEKS AGO- STATES SLIGHT CASE Denies: Hx Ulcer History: Reports: Other Problems/Disorders - urinary incontinence Denies: Hx Dialysis, Hx Renal Disease Musculoskeletal History: Reports: Hx Arthritis, Hx Back Problems, Other Musculoskeletal History - GEN MUSCULOSKELETAL PAIN Denies: Hx Rheumatoid Arthritis, Hx Bursitis, Hx Congenital Bone Abnormalities, Hx Fibromyalgia, Hx Gout, Hx Orthopedic Injury, Hx Osteoporosis, Hx Scoliosis, Hx Tendonitis Sensory History: Reports: Hx Contacts or Glasses, Hx Vision Problem Denies: Hx Cataracts, Hx Eye Injury, Hx Eye Prosthesis, Hx Glaucoma, Hx Macular Degeneration, Hx Hearing Aid, Other Sensory Impairments Opthamlomology History: Reports: Hx Contacts or Glasses, Hx Vision Problem Denies: Hx Cataracts, Hx Eye Injury, Hx Eye Prosthesis, Hx Glaucoma, Hx Macular Degeneration, Other Sensory Impairments Neurological History: Reports: Hx Developmental Delay - intellectual disability , Hx Seizures - STATES WITH ALLERGIC REACTION TO TRAMADOL Denies: Hx Dementia, Hx Headaches, Other Neuro Impairments/Disorders Psychiatric History: Reports: Hx Anxiety, Hx Depression, Hx Post Traumatic Stress Disorder, Hx Inpatient Treatment, Hx Community Mental Health Tx, Hx Bipolar Disorder - pt manic, Hx Suicide Attempt, Hx of Violent Episodes Against Others, Other Psychiatric Issues/Disorders - PSYCHOSIS NOS, HX OF PTSD, SCHIZOAFFECTIVE DISORDER, BORDERLINE PERSONALITY Denies: Hx Attention Deficit Hyperactivity Disorder, Hx Eating Disorder, Hx Panic Disorder, Hx Schizophrenia, Hx Substance Abuse - Cancer History Cancer Type, Location and Year: None reported - Surgical History Surgery Procedure, Year, and Place: 2011-CATARACT EXTRACTION. GALLBLADDER REMOVED Hx Anesthesia Reactions: No - Immunization History Date of Tetanus Vaccine: unk Date of Influenza Vaccine: fall 2017 Infectious Disease History: No Infectious Disease History: Denies: Hx Clostridium Difficile, Hx Hepatitis, Hx Human Immunodeficiency Virus (HIV), Hx of Known/Suspected MRSA, Hx Shingles, Hx Tuberculosis, Hx Known/ Suspected VRE, Hx Known/Suspected VRSA, History Other Infectious Disease, Traveled Outside the [place] in Last 30 Days - Family History Known Family History: Positive: Other - Anxiety and depression, [place] - father Negative: Cardiac Disease, Hypertension, Diabetes Family History: Depression and anxiety - Social History Alcohol Use: None Hx Substance Use: Yes Substance Use Type: Reports: None Hx Tobacco Use: Yes Smoking Status (MU): Current Every Day Smoker Type: Cigarettes Amount Used/How Often: 1/2 PPD FOR LAST 30 DAYS, NO OTHER TOBACCO Length of Time of Smoking/Using Tobacco: since she was "young" Have You Smoked in the Last Year: Yes - Patient has smoked within the last 30 days Review of Systems Positive: Abdominal Pain - epigastric, Other - ingested 1 battery today and 4 yesterday Psychological: Other - SI; denies HI Positive: Depressed All Other Systems Reviewed And Are Negative: Yes Physical Exam - Summary Physical Exam Summary: VITAL SIGNS: Reviewed. GENERAL: Patient is a well-developed and nourished FEMALE who is lying comfortable in the stretcher. Patient is not in any acute respiratory distress. HEAD AND FACE: No signs of trauma. No ecchymosis, hematomas or skull depressions. No sinus tenderness. EYES: PERRLA, EOMI x 2, No injected conjunctiva, no nystagmus. EARS: Hearing grossly intact. Ear canals and tympanic membranes are within normal limits. MOUTH: Oropharynx within normal limits. NECK: Supple, trachea is midline, no adenopathy, no JVD, no carotid bruit, no c- spine tenderness, neck with full ROM CHEST: Symmetric, no tenderness at palpation LUNGS: Clear to auscultation bilaterally. No wheezing or crackles. CVS: Regular rate and rhythm, S1 and S2 present, no murmurs or gallops appreciated. ABDOMEN: Soft, non-tender. No signs of distention. No rebound no guarding, and no masses palpated. Bowel sounds are normal. EXTREMITIES: FROM in all major joints, no edema, no cyanosis or clubbing. NEURO: Alert and oriented x 3. No acute neurological deficits. Speech is normal and follows commands. SKIN: Dry and warm PSYCH: SI. The patient swallowed 4 batteries yesterday and 1 [place] AA battery today. She also tied a garbage bag around her head in an attempt to suffocate herself. She is somewhat tearful. Triage Information Reviewed: Yes Vital Signs On Initial Exam: Initial Vitals Temp Pulse Resp BP Pulse Ox 98.3 F 76 18 162/102 97 12/05/18 18:55 12/05/18 18:55 12/05/18 18:55 12/05/18 18:55 12/05/18 18:55 Vital Signs Reviewed: Yes Diagnostics - Vital Signs Vital Signs Temp Pulse Resp BP Pulse Ox 12/05/18 18:55 98.3 F 76 18 162/102 97 - Laboratory Lab Statement: Any lab studies that have been ordered have been reviewed, and results considered in the medical decision making process. - Radiology Abd XR Radiology Interpretation Completed By: ED Physician Summary of Radiographic Findings: One double AA battery in the stomach at the pylorus. Four triple AAA batteries in the right colon. Pending radiologist official report. Re-Evaluation - Re-Evaluation First Eval Re-Evaluation Time: 00:11 Comment: Spoke with the patient about being discharged. She does not want to go back to [place]. Course/Dx - Course Assessment/Plan: This patient is a 53 year old F brought in by ambulance from [place] to ED with a chief complaint of SI and depression. The patient is cleared for MHE at 2012. Abd XR reveals one double AA battery in the stomach at the pylorus and four triple AAA batteries in the right colon. The son was reached and he says he will be able to olive picker the patient and bring her back to her mother's house. Spoke with Dr. Tierney about the patient's case at 0016 and he is okay with the patient being discharged home. - Differential Dx/Clinical Impression Differential Diagnosis/HQI/PQRI: Positive: Other - mood disorder Provider Diagnosis: Mood disorder - Physician Notifications Discussed Care Of Patient With: Armand Tierney Time Discussed With Above Provider: 00:16 Instructed by Provider To: Other - Spoke with Dr. Tierney about the patient's case and he is okay with the patient being discharged home. Discharge - Sign-Out/Discharge Documenting (check all that apply): Patient Departure - discharge Patient Received Moderate/Deep Sedation with Procedure: No - Discharge Plan Condition: Stable Disposition: HOME Patient Education Materials: Mood Disorders (ED) Referrals: Rosa Schroeder MD [Primary Care Provider] - 3 Days Additional Instructions: PLEASE RETURN TO THE ED IMMEDIATELY FOR WORSENING OR CONCERNING SYMPTOMS. - Attestation Statements Document Initiated by Scribe: Yes Documenting Scribe: Corey Pradhan Provider For Whom Scribe is Documenting (Include Credential): Sendy Mcdowell MD Scribe Attestation: ICorey, scribed for Sendy Mcdowell MD on 12/06/18 at 0020. Status of Scribe Document: Ready
[2018-12-05] MEDS ORDERED: Cyclobenzaprine TAB* 10 MG PO ONE (23:19)
[2018-12-06 00:37] VITALS: BP 126/80
== END 2018-12-06 00:38 | disposition home or self-care (01) ==
LOC: ED 18:53
DX: F32.9 Major depressive disorder, single episode, unspecified (principal); F17.210 Nicotine dependence, cigarettes, uncomplicated; E11.9 Type 2 diabetes mellitus without complications; E07.9 Disorder of thyroid, unspecified; I10 Essential (primary) hypertension; G47.30 Sleep apnea, unspecified; R45.851 Suicidal ideations
CPT/HCPCS: 74019; 99285

== ENCOUNTER 2018-12-08 22:36 | Emergency (ER) | payer MEDICARE, MEDICAID ==
--- OUTSIDE RECORDS SUMMARY | 2018-12-08 22:49 | XMS REPORT | Continuity of Care Document ---
:1965 External Reference #:[id number] Author Name AnuElva alfaro Care Team Providers Name Role Phone Rosa Schroeder M.D. Primary Care Physician Unavailable Payers Date Identification Numbers Payment Provider Subscriber Effective: 1991 Policy Number: [id number] Medicare Cecilio Alfaro PayID: [id number] [address] [place] [address] Policy Number: [id number] Medicaid Cecilio Alfaro Group Name: 1 1 [address] PayID: [id number] [place] [address] Advance Directives Description No Information Available Problems Active Problems Provider Date Type 2 diabetes mellitus Chapo Aguila M.D. Onset: 06/13/2017 Hypothyroidism Chapo Aguila M.D. Onset: 06/13/2017 Gastroesophageal reflux disease Chapo Aguila M.D. Onset: 06/13/2017 Mixed hyperlipidemia Chapo Aguila M.D. Onset: 06/13/2017 Extreme obesity with alveolar Chapo Aguila M.D. Onset: 06/13/2017 hypoventilation Bipolar I disorder Chapo Aguila M.D. Onset: 06/13/2017 Thoracic and lumbosacral neuritis Chapo Aguila M.D. Onset: 07/15/2017 Benign neoplasm of colon Chapo Aguila M.D. Onset: 08/11/2017 Pancreatitis Rosa Schroeder MD Onset: 05/15/2018 Family History Date Family Member(s) Observation Comments General Cancer Father Depression Father due to Operative () - after colonoscopy Complications Father Cancer Mother Alive And Well Social History Type Date Description Comments Sex Unknown Marital Status also with severe mental illness Lives With Assisted living [facility] since March 2018. Was at [facility] from October-Apr 2018 Occupation Unemployed Occupation Disabled Tobacco Use Start: Unknown Patient was a states she is cigarette smoker, quitting current status is unknown ETOH Use 07/26/2018 Denies alcohol use Recreational Drug Use Former Drug User Tobacco Use Start: Unknown Patient is a former End: Unknown smoker Smoking Status Reviewed: 12/08/18 Patient is a former smoker Exercise Type/Frequency Exercises rarely Allergies, Adverse Reactions, Alerts Active Allergies Reaction Severity Comments Date Latex Urticaria 05/10/2017 Sulfa Antibiotics hives 05/10/2017 Penicillins Urticaria 05/10/2017 Nalbuphine 05/10/2017 Perphenazine 05/10/2017 Ciprofloxacin dizziness 05/10/2017 Tramadol altered mental status 05/10/2017 Cyrus 05/10/2017 Lurasidone Moderate 05/08/2018 Metformin Diarrhea 05/22/2018 Medications Active Medications SIG Qnty Indications Ordering Date Provider Quad Cane 1 cane for 1units M51.26 Rosa Schroeder MD 11/17/2018 [facility] ambulation 4 prong Cyclobenzaprine HCL take 1 tablet by 60tabs Rosa Schroeder MD 10/27/2018 10mg mouth two times Tablets daily Levothyroxine Sodium 1 tablet by mouth 42tabs E03.9 Moreno Sandoval MD 2018 every day, except 200mcg Tablets 2 tablets on Tuesday (total 8 tablets/week) Polyethylene Glycol 17g twice daily 1020gm Lawrence Simental 10/19/2018 3350 PO Adelina Denson,FACP 3350NF Powder Walker Swivel Wheels/5 folding walker, 1units M51.26 Lawrence Simental 2018 Adjustment Holes/5" use as directed Adelina Denson,FACP 5" [facility] Gabapentin 2 capsules at hs Other Ordering 10/02/2018 400mg Capsules Provider Fluconazole 1 tab by mouth x 2tabs B37.3 Rosa Schroeder MD 10/02/2018 150mg Tablets 1, may repeat after 2 days if not better Anbesol Maximum apply to gingiva 27gm Rosa Schroeder MD 09/21/2018 Strength 3x/day as needed 20% Gel for pain Nicoderm CQ apply one to skin 28units F17.210 Danya 09/06/2018 21mg/24HR every day Adelina Marquez Patches 24HR Creon one po tid right 90caps R19.7 Rosa Schroeder MD 09/06/2018 3000-9500Unit Caps before meals DR Kati Kahn test 4 times a 150units E11.9 Moreno Sandoval MD 09/04/2018 Lancets Extra Fine 33G day Misc Arnuity Ellipta 1 puff inhaled 30units Rosa Schroeder MD 07/26/2018 every day 100mcg/Act Aerosol Depend Adjustable use four times a 120units Rosa Schroeder MD 07/03/2018 Underwear L/XL day Misc Flonase Allergy Relief 2 sprays in each 9.900ml Danya 06/23/2018 nostril twice a Adelina Marquez 50mcg/Act Suspension day Fiasp Flextouch 26 units tid-ac. 30ml E11.65 Moreno Sandoval MD 05/19/2018 mdd 90 100Unit/ML Solution Pen-Inject Basaglar Kwikpen 70 units once 30ml Moreno Sandoval MD 05/19/2018 daily in the 100Unit/ML Solution morning Pen-Inject Nicotrol 1 cartridges 168units Lawrence Simental 05/18/2018 10mg Inhaler every 2 hours as Adelina Denson,FACP needed Nystatin apply twice daily 90gm Rosa Schroeder MD 05/15/2018 [id number] until rash clears Powder Ventolin HFA 2 by mouth every 8gm Rosa Schroeder MD 05/15/2018 108(90Base) 4 hours as needed mcg/Act Aerosol Onetouch Ultra Blue test up to 4 150units Z79.4 Moreno Sandoval MD 09/09/2017 times daily Strips E11.65 E11.9 BD Pen Needle/Suzanna/Ultra use 4 times every 150units E11.9 Moreno Sandoval, Fine/32G X 4mm day 32G X 4 mm Misc Depend Pant Extra Large use 4 x a day or as 120units Rosa Schroeder, 2016 Misc needed MD Percocet 1 - 2 tabs by mouth 60tabs Dylan Valdescalf, 5-325mg Tablets every 4 - 6 hours M.D. as needed for pain. Nicotine Gum 2 MG 1piece q 2 hours Unknown prn Ondansetron dissolve one tablet Unknown 4mg Tablets Dispers orally every 8 hours as needed for nausea. Hydroxyzine HCL 1 tablets by mouth Unknown 25mg Tablets tid as needed for anxiety Asmanex Twisthaler 120 2 puff q.a.m. Unknown Metered Doses 220mcg/Inh Aerosol Ibu take one tablet by 90tabs Rosa Schroeder, 600mg Tablets mouth t.i.d prn pain Guaifenesin take 3 tabs PO bid Unknown 200mg Tablets prn congestion Cetirizine HCL 1 by mouth every Unknown 10mg Tablets day Maalox Max 30 milliliters by Unknown [id number] mouth q4hr as Suspension needed indigestion Acetaminophen 2 tablets by mouth Unknown 325mg Tablets every 4 hours as needed for pain/fever Olanzapine one tab by mouth 60tabs Rosa Schroeder, 5mg Tablets twice a day Trazodone HCL 2 tab at bedtime 90tabs Rosa Schroeder, 100mg Tablets MD Howard Ultra Mini check bs up to 1units E11.65 Lawrence Simental w/Device three times daily Isidro Denson M.D.,FACP Atorvastatin Calcium take 1 tablet at 90tabs Rosa Schroeder, 20mg bedtime MD Tablets Lamotrigine 1 by mouth twice a 180tabs Rosa Schroeder, 100mg Tablets day Losartan Potassium 1 by mouth every 90tabs E11.65 Rosa Schroeder, 50mg Tablets day Loratadine once a day for 90caps Rosa Schroeder, 10mg Capsules allergies as needed Duloxetine HCL 1 by mouth every 90caps Rosa Schroeder, 20mg Caps DR day with 60mg tab MD Parikh Duloxetine HCL 1 by mouth every 90caps Rosa Schroeder, 60mg Caps DR day with 20mg tab MD Parikh Vitamin D3 1 by mouth twice 180caps Rosa Schroeder, 1000Unit Capsules daily Lidoderm 1 apply to affected 60units Rosa Schroeder, 5% Patches area 12 hours on, MD 12 hours off History Medications Cyclobenzaprine HCL take one tablet by 60tabs Rosa Schroeder, 10/19/2018 - 10mg mouth three times 10/27/2018 Tablets a day as needed Clindamycin HCL 1 by mouth three 21caps Other 09/26/2018 - 300mg times a day for 10 Ordering 10/05/2018 Capsules days Provider Gabapentin 2 tabs at bedtime 60caps Other 09/06/2018 - 100mg Capsules Ordering 10/02/2018 Provider Azithromycin 2 every day for 1 6tabs Lawrence Simental 07/26/2018 - 250mg Tablets day, then 1 every Janiya, 07/31/2018 day MMarkel,FACP Levothyroxine Sodium take 175mcg daily 30tabs E03.9 Moreno Sandoval, 2017 - 175mcg on an empty 10/26/2018 Tablets stomach Methylprednisolone take as instructed 21unladi Rivera 06/29/2018 - 4mg TBPK per medrol dose MD Jonah 07/21/2018 pack instructions Naproxen take 1 tablet 14tabs Lawrence Simental 06/29/2018 - 500mg Tablets twice daily with Janiya, 10/02/2018 food prrizwan Sahu,FACP Mucinex DM one po bid 14tabs Rosa Schroeder, 06/23/2018 - 30-600mg Tablets 07/03/2018 ER 12HR Ibuprofen 1 po three times a 30tabs Rosa Schroeder, 05/29/2018 - 600mg Tablets day as needed for 07/03/2018 pain, take with food Clindamycin Phosphate apply to affected 60gm R15.1 Rosa Schroeder, 2017 - 1% Gel area twice a day 07/03/2018 for 14 days Walker Auto Glides/5 use this to 1units Rosa Schroeder, 05/15/2018 - Adjustment Holes/1-08/08" ambulate daily for 10/19/2018 unsteady gait 1-08/08" [facility] Shower Chair use when taking a 1units Rosa Schroeder, 05/15/2018 - shower for 07/03/2018 unsteady gait Metformin HCL ER take 1 tablet by 90tabs Rosa Schroeder 05/12/2018 - 500mg mouth once a day 05/22/2018 Tablets ER 24HR with dinner Januvia one by mouth daily 90tabs E11.65 Rosa Schroeder 05/08/2018 - 50mg Tablets 07/18/2018 Depend Adjustable use four times a 120units R15.1 Rosa Schroeder 05/08/2018 - Underwear L/XL day 07/03/2018 [facility] Exercise Pt allowed to E11.65 Rosa Schroeder 05/08/2018 - engage in exercise 07/03/2018 at facilities under direct supervision of staff Tresiba Flextouch 100 units at 15ml E11.65 Newberry 10/13/2017 - 100Unit/ML bedtime Pachikara, 05/08/2018 Solution Pen-Inject M.DJarred Losartan Potassium 1 by mouth once a 30tabs E11.65 Newberry 10/13/2017 - 25mg day Pachikara, 05/08/2018 Tablets M.D. Hydrocodone-Acetaminophe 1 tab every 12h as 20tabs Newberry 10/10/2017 - n needed Pachikara, 05/08/2018 5-325mg Tablets M.D. Tresiba Flextouch 60 units at 15ml E11.65 Newberry 09/19/2017 - 100Unit/ML bedtime Pachikara, 10/13/2017 Solution Pen-Inject M.DJarred Onetouch Ultra Mini test up to three 100units E11.9 Lawrence Simental 2017 - Strips times daily last Janiya, 09/09/2017 visit:08/17/17 Adelina,CESAR Onetouch Ultra Mini check bs twice 100units Newberry 08/31/2017 - Lancets daily Pachika, 05/08/2018 Adelina Onetouch Ultrasoft test blood 2-3 a 100units E11.9 Lawrence Simental 2017 - Lancets day or as needed Lihue, 09/04/2018 Misc M.D.,FACP Mucinex 1 po bid prn 20tabs Lawrence Simental 08/28/2017 - 600mg Tablets ER 12HR Lihue, 05/08/2018 M.D.,FACP Doxycycline Monohydrate 1 by mouth twice a 13caps Unknown 08/28/2017 - 100mg day x 7 days 09/04/2017 Capsules Tresiba Flextouch 30u SC in Am and 18ml Lawrence Simental 08/26/2017 - 200Unit/ML 70u SC in PM Lihue, 09/19/2017 Solution Pen-Inject M.D.,FACP Azithromycin 2 tabs by mouth on Unknown 08/26/2017 - 250mg Tablets day 1; 1 tab by 08/31/2017 mouth every day on days 2-5 Tramadol HCL 1 tab by mouth 30tabs Lawrence Simental 08/26/2017 - 50mg Tablets three times a day Lihue, 09/28/2017 M.D.,FACP Fluconazole one by mouth november 2tabs Lawrence Simental 08/22/2017 - 150mg Tablets repeat in 3 days Lihue, 05/08/2018 as needed M.D.,FACP Lancets 28G use with one touch 100units Newberry 08/08/2017 - 28G Misc meter, check bs Vale, 08/31/2017 daily M.D. Onetouch test twice daily 100units Newberry 08/08/2017 - Strips and as needed Ayla, 08/31/2017 MJarredDJarred Janumet 1 by mouth twice a 60tabs E11.9 Newberry 07/15/2017 - 50-500mg Tablets day Ayla, 05/08/2018 M.DJarred Glucocom Blood Glucose one touch 1units Erik 07/03/2017 - Monitoring System glucometer to Adelina Walls 08/31/2017 W/Device measure blood Kit sugar daily Clotrimazole apply twice daily 90gm B37.9 Newberry 06/13/2017 - 1% Cream Ayla, 05/08/2018 MMarkel Nicotrol use 4-5 times 168units F17.21 Newberry 06/13/2017 - 10mg Inhaler daily 0 Pachika, 05/08/2018 M.D. Acetaminophen-Codeine #3 1 tab by mouth 20tabs Chapo 05/26/2017 - every 4-6 hours as Ayla, 05/08/2018 300-30mg Tablets needed for pain M.D. Miralax 17 grams by mouth 500units Rosa Schroeder, - Powder every day as 10/19/2018 needed Lantus 66 units Unknown - 100Unit/ML Solution subcutaneous 09/05/2018 q.a.m. Lantus Solostar 40 units twice 45ml Rosa Schroeder, - 100Unit/ML daily 05/22/2018 Solution Pen-Inject Gabapentin take one capsule 270caps Rosa Schroeder, - 400mg Capsules by mouth 3 times a 09/06/2018 day Naproxen twice a day with 180tabs Rosa Schroeder, - 375mg Tablets food 07/03/2018 Metformin HCL 1 by mouth twice a Unknown - 500mg Tablets day 05/08/2018 Humalog Kwikpen 4-10 Units SQ 9ml E11.65 Rosa Schroeder, - 100Unit/ML three times a day, 05/19/2018 Solution Pen-Inject at mealtime, per sliding scale instructions Levothyroxine Sodium 1 by mouth every 90tabs E03.9 Rosa Schroeder, - 150mcg day 07/17/2018 Tablets Novalog 10 units before Unknown - meals 05/08/2018 Pictonix 40 mg daily Unknown - Unknown Atorvastatin Calcium take one tablet by 90tabs Newberry - 40mg mouth every day Ayla, 05/08/2018 Tablets M.D. Lantus Solostar 30 units SC in Am, 15ml Lawrence DJarred - 100Unit/ML and 70 units SC a Lihue, 08/26/2017 Solution Pen-Inject hs M.D.,FACP Naproxen twice daily 60tabs Chapo - 500mg Tablets Ayla, 07/15/2017 M.D. Levothyroxine Sodium 1 tab daily am in 90tabs Newberry - 200mcg the empty stomach Pachikara, 05/08/2018 Tablets M.D. Levothyroxine Sodium 1 tab daily in the 90tabs Newberry - 50mcg empty stomach Pachikara, 05/08/2018 Tablets M.D. Latuda daily Unknown - 80mg Tablets 05/08/2018 Cyclobenzaprine HCL as needed Unknown - 10mg 09/28/2017 Tablets Novolog Flexpen Inject 15 Units Unknown - 100Unit/ML Subq Three Times A Unknown Solution Pen-Inject Day With Meals Sertraline HCL Take 1+1/2 Tablets Unknown - 100mg Tablets By Mouth Once 05/08/2018 Daily Lamotrigine take 1 tablet by Unknown - 150mg Tablets mouth twice a day 05/08/2018 Pantoprazole Sodium take 1 tablet by 30tabs Newberry - 40mg mouth once daily [facility], 05/08/[address] Sahu Ondansetron every 6-8 hours as Home, - 8mg Tablets needed LUZ Newman 05/08/2018 Dispers Ibuprofen as needed Home, - 600mg Tablets LUZ Newman 05/08/2018 Medications Administered in Office Medication SIG Qnty Indications Ordering Provider Date Depomedrol 40MG Naveed Cuadra MD 10/11/2017 Injection Immunizations CPT Code Status Date Vaccine Lot # [id number] Given 05/01/2018 Influenza Virus Vaccine, Quadrivalent, Split, Preservative Free Vital Signs Date Vital Result Comment 12/08/2018 9:20am Height 67 inches 5'7" Weight 254.25 lb BP Systolic Sitting 116 mmHg BP Diastolic Sitting 80 mmHg Pain Level 86 O2 % BldC Oximetry 96 % BMI (Body Mass Index) 39.8 kg/m2 10/26/2018 3:42pm Height 67 inches 5'7" Weight [...] Result H/L Range Note CBC Auto Diff 12/05/2018 [facility] White Blood 11.5 10^3/uL High 3.5-10.[address] [place] [address] [phone] Red Blood Count 4.65 10^6/uL N 3.70-4.87 Hemoglobin 13.9 g/dL N 12.0-16.0 Hematocrit 42 % N 35-47 Mean Corpuscular Volume 90 fL N 80-97 Mean Corpuscular Hemoglobin 30 pg N 27-31 Mean Corpuscular HGB Conc 33 g/dL N 31-36 Red Cell Distribution Width 15 % N 10.5-15 Platelet Count 254 10^3/uL N 150-450 Mean Platelet Volume 8.5 fL N 7.4-10.4 Abs Neutrophils 6.6 10^3/uL N 1.5-7.7 Abs Lymphocytes 4.1 10^3/uL N 1.0-4.8 Abs Monocytes 0.6 10^3/uL N 0-0.8 Abs Eosinophils 0.1 10^3/uL N 0-0.6 Abs Basophils 0.1 10^3/uL N 0-0.2 Abs Nucleated RBC 0.0 10^3/uL Granulocyte % 57.7 % Lymphocyte % 35.6 % Monocyte % 5.1 % Eosinophil % 1.1 % Basophil % 0.5 % Nucleated Red Blood Cells % 0.0 Comp Metabolic Panel 12/05/2018 [facility] Sodium 139 mmol/L N 135-[address] [place] [address] [phone] Potassium 3.9 mmol/L N 3.5-5.0 Chloride 107 mmol/L N 101-111 Co2 Carbon Dioxide 27 mmol/L N 22-32 Anion Gap 5 mmol/L N 2-11 Glucose 87 mg/dL N 70-100 Blood Urea Nitrogen 11 mg/dL N 6-24 Creatinine 0.79 mg/dL N 0.51-0.95 BUN/Creatinine Ratio 13.9 N 8-20 Calcium 9.5 mg/dL N 8.6-10.3 Total Protein 7.7 g/dL N 6.4-8.9 Albumin 4.1 g/dL N 3.2-5.2 Globulin 3.6 g/dL N 2-4 Albumin/Globulin Ratio 1.1 N 1-3 Total Bilirubin 0.30 mg/dL N 0.2-1.0 Alkaline Phosphatase 132 U/L High 34-104 Alt 44 U/L N 7-52 Ast 46 U/L High 13-39 Egfr Non- 76.4 >60 Egfr 92.5 >60 1 Laboratory test 12/05/2018 [facility] Acetaminophen < 15 g/mL [address] [place] [address] [phone] Alcohol < 10 mg/dL N <10 Salicylate < 2.50 mg/dL <30 TSH (Thyroid Stim Horm) 8.38 mcIU/mL High 0.34-5.60 Laboratory test 11/21/2018 [facility] Point of Care 88 mg/dL N 70-100 [address] [place] [address] [phone] Laboratory test 11/21/2018 [facility] Point of Care 56 mg/dL Low 70-100 [address] [place] [address] [phone] Urinalysis 11/21/2018 [facility] Urine Color Yellow Profile [address] [place] [address] [phone] Urine Appearance Cloudy Urine Specific Harcourt 1.016 N 1.010-1.030 Urine pH 6.0 N 5-9 Urine Urobilinogen Negative Negative Urine Ketones Negative Negative Urine Protein Negative Negative Urine Leukocytes 3+ Abnormal Negative Urine Blood Negative Negative Urine Nitrite Negative Negative Urine Bilirubin Negative Negative Urine Glucose Negative Negative Urine White Blood Cell 2+(11-20/hpf) Abnormal Absent Urine Red Blood Cell 1+(3-5/hpf) Abnormal Absent Urine Bacteria 1+ Abnormal Absent Urine Squamous Epithelial Cell Present Abnormal Absent Urine Culture And 11/21/2018 [facility] Urine Culture SEE RESULT [address] [place] [address] [phone] Laboratory test 10/26/2018 [facility] Glucose Random 158 finding Hemoglobin A1c 8.0 High 5-7 Laboratory test 08/22/2018 [facility] Point of 202 mg/dL High 70-100 [address] [place] [address] [phone] CBC Auto Diff 08/22/2018 [facility] White Blood 10.7 N 3.5- 10.[address] Count 10^3/[place] [address] [phone] Red Blood Count 4.66 10^6/uL N 4.00-5.40 [...] Cells % 0 Comp Metabolic Panel 08/22/2018 [facility] Sodium 139 mmol/L N 135-[address] [place] [address] [phone] Potassium 4.7 mmol/L N 3.5-5.0 Chloride 104 [...] Egfr Non- 61.0 >60 Egfr 73.8 >60 7 Laboratory test 08/22/2018 [facility] Acetaminophen < 15 g/mL [address] [place] [address] [phone] Alcohol < 10 mg/dL N <10 Salicylate < 2.50 mg/dL <30 TSH (Thyroid Stim Horm) 8.26 mcIU/mL High 0.34-5.60 Laboratory test 08/22/2018 [facility] Point of 321 mg/dL High 70-[address] [place] [address] [phone] CBC Auto Diff 08/19/2018 [facility] White Blood 9.3 N 3.5- 10.[address] Count 10^3/[place] [address] [phone] Red Blood Count 4.42 10^6/uL N 4.00-5.40 [...] Cells % 0.1 Comp Metabolic Panel 08/19/2018 [facility] Sodium 139 mmol/L N 135-[address] [place] [address] [phone] Chloride 108 mmol/L N 101-111 Co2 Carbon [...] Egfr Non- 73.2 >60 Egfr 88.6 >60 10 Potassium 4.5 mmol/L N 3.5-5.0 Anion Gap 9 mmol/L N 2-11 Ast 47 U/L High 13-39 Laboratory test 08/19/2018 [facility] HCG 2.61 mIU/mL [address] [place] [address] [phone] Acetaminophen < 15 g/mL 12 Alcohol < 10 mg/dL N <10 Salicylate < 2.50 mg/dL <30 TSH (Thyroid Stim Horm) 7.94 mcIU/mL High 0.34-5.60 Laboratory 08/17/2018 [facility] Point of Care 145 mg/dL High 70-100 13 test finding [address] [place] [address] [phone] Laboratory 08/15/2018 [facility] Miscellaneous See 14, test finding [address] Test Comment 15 [place] [address] [phone] Comp 07/31/2018 [facility] Sodium 136 mmol/L N 135-145 [address] [place] [address] [phone] Potassium 4.9 mmol/L N 3.5-5.0 Chloride 104 [...] Egfr Non- 77.6 >60 Egfr 93.8 >60 17 Lipid Profile 07/31/2018 [facility] Triglycerides 113 mg/dL 18 (Trig/Chol/HDL) [address] [place] [address] [phone] Cholesterol 94 mg/dL 19 HDL Cholesterol 34.8 mg/dL 20 LDL Cholesterol 37 mg/dL 21 Laboratory test finding 07/31/2018 [facility] GGTP 50 U/L N 9- 64.[address] [place] [address] [phone] Hemoglobin A1c (Glyco HGB) 8.3 % High 4.0-5.6 23 Laboratory test 07/20/2018 [facility] Point of Care 78 mg/dL N 70-100 [address] [place] [address] [phone] CBC Auto Diff 07/20/2018 [facility] White Blood 8.8 10^3/uL N 3.5-10.[address] [place] [address] [phone] Red Blood Count 4.30 10^6/uL N 4.00-5.40 [...] Cells % 0 Basic Metabolic Panel 07/20/2018 [facility] Sodium 140 mmol/L N 135-[address] [place] [address] [phone] Potassium 4.0 mmol/L N 3.5-5.0 Chloride 108 mmol/L N 101-111 Co2 Carbon Dioxide 26 mmol/L N 22-32 Anion Gap 6 mmol/L N 2-11 Glucose 82 mg/dL N 70-100 Blood Urea Nitrogen 13 mg/dL N 6-24 Creatinine 0.71 mg/dL N 0.51-0.95 BUN/Creatinine Ratio 18.3 N 8-20 Calcium 9.3 mg/dL N 8.6-10.3 Egfr Non- 86.4 >60 Egfr 104.6 >60 25 CBC Auto 07/10/2018 [facility] White Blood 14.1 10^3/uL High 3.5-10.[address] [place] [address] [phone] Red Blood Count 4.77 10^6/uL N 4.00-5.40 [...] Blood Cells % 0 Urinalysis Profile 07/10/2018 [facility] Urine Color Yellow [address] [place] [address] [phone] Urine Appearance Cloudy Urine Specific Harcourt 1.017 N 1.010-1.030 Urine pH 5.0 N [...] Present Abnormal Absent Comp Metabolic Panel 07/10/2018 [facility] Sodium 136 mmol/L N 135-145 [facility] [place] [address] [phone] Potassium 4.6 mmol/L N 3.5-5.0 Chloride 102 [...] Egfr Non- 54.4 >60 Egfr 65.9 >60 26 Laboratory test 07/10/2018 [facility] Acetaminophen < 15 g/mL 27 finding [address] [place] [address] [phone] Alcohol < 10 mg/dL N <10 Salicylate < 2.50 mg/dL <30 TSH (Thyroid Stim Horm) 9.45 mcIU/mL High 0.34-5.60 Urine Drug 07/10/2018 [facility] Amphetamine Ur None Detected None Detect SCR ED & [address] [facility] [place] [address] [phone] Barbiturates Urine Screen None Detected None Detect Benzodiazepine Urine Screen None Detected None Detect Urine Cannabinoids Screen None Detected None Detect Urine Cocaine Screen None Detected None Detect Urine Opiates Screen None Detected None Detect Urine Phencyclidine Screen None Detected None Detect 28 Urine Culture 07/10/2018 [facility] Urine Culture SEE RESULT [address] BEL[address] Sensitivities [place], [place] [id number] [phone] Laboratory test 06/26/2018 [facility] Point of Care 143 mg/dL High 70-100 [address] Glucose [place], [place] [address] [phone] Laboratory test 06/26/2018 [facility] Point of Care 72 mg/dL N 70-100 [address] Glucose [place], [place] [id number] [phone] Laboratory test 06/26/2018 [facility] Point of Care 98 mg/dL N 70-100 [address] [place] [address] [phone] Urine Drug SCR 06/26/2018 [facility] Amphetamine Ur None None ED & [facility] [address] Screen Detected Detect [place], [place] [id number] [phone] Barbiturates Urine Screen None Detected None Detect Benzodiazepine Urine Screen None Detected None Detect Urine Cannabinoids Screen None Detected None Detect Urine Cocaine Screen None Detected None Detect Urine Opiates Screen None Detected None Detect Urine Phencyclidine Screen None Detected None Detect 33 CBC Auto 06/26/2018 [facility] White Blood 10.9 10^3/uL High 3.5-10.[address] [place] [address] [phone] Red Blood Count 4.42 10^6/uL N 4.00-5.40 [...] Cells % 0 Comp Metabolic Panel 06/26/2018 [facility] Sodium 137 mmol/L N 135-145 [address] [place] [address] [phone] Potassium 4.3 mmol/L N 3.5-5.0 Chloride 105 [...] Egfr Non- 79.0 >60 Egfr 95.6 >60 34 Urinalysis Profile 06/26/2018 [facility] Urine Color Straw [address] [place] [address] [phone] Urine Appearance Clear Urine Specific Harcourt 1.005 Low 1.010-1.030 Urine pH 6.0 N 5-9 Urine Urobilinogen Negative Negative Urine Ketones Negative Negative Urine Protein Negative Negative Urine Leukocytes Negative Negative Urine Blood Negative Negative Urine Nitrite Negative Negative Urine Bilirubin Negative Negative Urine Glucose Negative Negative Laboratory test 06/26/2018 [facility] Acetaminophen < 15 g/mL 35 [address] [place] [address] [phone] Alcohol < 10 mg/dL N <10 Salicylate < 2.50 mg/dL <30 Lactic Acid 0.9 mmol/L N 0.5-2.0 36 CBC Auto Diff 05/18/2018 [facility] White Blood 10.8 10^3/uL N 3.5-10.[address] [place] [address] [phone] Red Blood Count 4.33 10^6/uL N 4.00-5.40 [...] Cells % 0.1 Comp Metabolic Panel 05/18/2018 [facility] Sodium 139 mmol/L N 135-[address] [place] [address] [phone] Potassium 4.5 mmol/L N 3.5-5.0 Chloride 107 [...] Egfr Non- 81.5 >60 Egfr 98.6 >60 37 Laboratory test 05/18/2018 [facility] Lipase < 10 U/L Low 11.0 -82.[address] [place] [address] [phone] Lactic Acid 1.1 mmol/L N 0.5-2.0 38 Laboratory test 05/15/2018 [facility] C Difficile PCR SEE RESULT [address] [place] [address] [phone] Laboratory test 05/11/2018 [facility] Glucose 342 mg/dL High 70-[address] Confirmatory 00 [place], [place] [id number] [phone] Laboratory test 05/11/2018 [facility] Point of Care 402 mg/dL High 70-1 [address] Glucose 00 [place], [place] [id number] [phone] Laboratory test 05/11/2018 [facility] Point of Care 426 mg/dL High 70-1 [address] Glucose 00 [place] [address] [phone] CBC Auto Diff 05/10/2018 [facility] White Blood Count 12.0 High 3.5- [address] 10^3/uL 10.8 [place], [place] [id number] [phone] Red Blood Count 4.39 10^6/uL N 4.00-5.40 [...] Cells % 0.1 Comp Metabolic Panel 05/10/2018 [facility] Sodium 141 mmol/L N 135-[address] [place] [address] [phone] Potassium 4.9 mmol/L N 3.5-5.0 Chloride 107 [...] Egfr Non- 74.5 >60 Egfr 90.2 >60 42 Laboratory test 05/10/2018 [facility] Lipase < 10 U/L Low 11.0 -82.[address] [place] [address] [phone] C Reactive Protein 6.43 mg/L N <8.01 Lactic Acid 1.2 mmol/L N 0.5-2.0 43 Urine Microalbumin 05/08/2018 [facility] Ur Microalbumin < 15.[address] (mg/L) [place] [address] [phone] Urine Creatinine 224.47 mg/dL Urine Microalbumin/Creatinine TNP <31 44 Laboratory test 05/08/2018 [facility] Hemoglobin A1c 9.7 High 5-7 finding Urinalysis Profile 11/02/2017 [facility] Urine Color Yellow [address] [place] [address] [phone] Urine Appearance Clear Urine Specific Harcourt 1.018 N 1.010-1.030 Urine pH 5.0 N 5-9 Urine Urobilinogen Negative Negative Urine Ketones Negative Negative Urine Protein Negative Negative Urine Leukocytes Negative Negative Urine Blood Negative Negative Urine Nitrite Negative Negative Urine Bilirubin Negative Negative Urine Glucose 1+(50 mg/dL) Abnormal Negative Laboratory test 11/02/2017 [facility] Magnesium 1.9 mg/dL N 1.9-2.[address] [place] [address] [phone] Creatine Kinase(CK) 72 U/L N 10-223 Troponin-I (TnI) 0.03 ng/mL <0.04 Acetaminophen < 15 g/mL 45 Alcohol < 10 mg/dL N <10 Salicylate < 2.50 mg/dL <30 TSH (Thyroid Stim Horm) 1.79 mcIU/mL N 0.34-5.60 Urine Drug 11/02/2017 [facility] Amphetamine Ur None Detected None Detect SCR ED & [address] [place] [place] [address] [phone] Barbiturates Urine Screen None Detected None Detect Benzodiazepine Urine Screen None Detected None Detect Urine Cannabinoids Screen None Detected None Detect Urine Cocaine Screen None Detected None Detect Urine Opiates Screen Presumptive Posi <SEE NOTE> Abnormal None Detect 46 Urine Phencyclidine Screen None Detected None Detect 47 Arterial Blood Gas 11/02/2017 [facility] PH Arterial 7.36 N 7.35-7.[address] [place] [address] [phone] Pco2 Arterial 50 mmHg High 35-45 Po2 Arterial 65 mmHg Low 80-100 O2 Saturation Arterial 91.1 % Low 95-98 Base Excess Arterial 2.1 High -2.0-2.0 48 Hco3 Arterial 26.4 mmol/L N 19-31 Laboratory test finding 11/02/2017 [facility] Ammonia 37 ?mol/L N 16-[address] [place] [address] [phone] Lactic Acid 1.0 mmol/L N 0.5-2.0 49 Comp Metabolic 11/02/2017 [facility] Potassium 4.4 mmol/L N 3.5-5.[address] [place] [address] [phone] Chloride 107 mmol/L N 101-111 Co2 Carbon [...] Egfr Non- 70.5 >60 Egfr 90.7 >60 50 Sodium 142 mmol/L N 139-145 Anion Gap 5 mmol/L N 2-11 CBC Auto Diff 11/02/2017 [facility] White Blood 8.5 10^3/uL N 3.5-10.[address] [place] [address] [phone] Red Blood Count 4.40 10^6/uL N 4.0-5.4 [...] Cells % 0 CBC Auto Diff 10/02/2017 [facility] White Blood 10.3 10^3/uL N 3.5-10.[address] [place] [address] [phone] Red Blood Count 4.29 10^6/uL N 4.0-5.4 [...] Cells % 0 Comp Metabolic Panel 10/02/2017 [facility] Sodium 136 mmol/L N 133-[address] [place] [address] [phone] Potassium 4.5 mmol/L N 3.5-5.0 Chloride 103 [...] Egfr Non- 70.5 >60 Egfr 90.7 >60 51 Laboratory test 10/02/2017 [facility] CRP High 3.53 mg/L [address] [place] [address] [phone] Laboratory test 09/28/2017 [facility] Hemoglobin A1c 9.1 High 5-7 finding Laboratory test 09/13/2017 [facility] Point of Care 179 mg/dL High 70-10 [address] Glucose 0 [place] [address] [phone] Laboratory test 09/13/2017 [facility] Point of Care 260 mg/dL High 70-10 [address] Glucose 0 [place] [address] [phone] Comp Metabolic 08/29/2017 [facility] Sodium 136 N 133-[address] mmol/L 45 [place] [address] [phone] Potassium 4.9 mmol/L N 3.5-5.0 Chloride 104 [...] Egfr Non- 47.4 >60 Egfr 60.9 >60 55 Laboratory test 08/29/2017 [facility] Lipase < 10 U/L Low 11.0 -82.[address] [place] [address] [phone] CRP High Sensitivity 1.79 mg/L 56 Troponin-I (TnI) 0.00 ng/mL <0.04 Laboratory test 08/29/2017 [facility] B-Type 21 pg/mL [address] [place] [address] Peptide BNP [phone] CBC Auto Diff 08/29/2017 [facility] White Blood Count 9.1 10^3/ uL N 3.5-[address] 0.8 [place] [address] [phone] Red Blood Count 4.06 10^6/uL N 4.0-5.4 [...] Cells % 0 Comp Metabolic Panel 08/26/2017 [facility] Sodium 139 mmol/L N 133-[address] [place] [address] [phone] Potassium 5.0 mmol/L N 3.5-5.0 Chloride 105 [...] Egfr Non- 62.8 >60 Egfr 80.7 >60 58 Inr/Protime 08/26/2017 [facility] Inr 0.82 N 0.77-1.[address] [place] [address] [phone] Laboratory test 08/26/2017 [facility] Partial 27.7 seconds N 26.0-36.[address] [place] [address] PTT [phone] CBC Auto Diff 08/26/2017 [facility] White Blood 9.0 10^3/uL N 3.5-10.[address] [place] [address] [phone] Red Blood Count 4.42 10^6/uL N 4.0-5.4 [...] Blood Cells % 0 Laboratory test 08/26/2017 [facility] Troponin-I 0.01 <0.[address] (TnI) ng/[place] [address] [phone] Laboratory test 08/25/2017 [facility] C Reactive 3.27 mg/L N < 5.00 [address] [place] [address] [phone] Venous Blood 08/25/2017 [facility] Venous Blood 7.48 High 7.33 -7.[address] [place] [address] [phone] Venous Pco2 31 mmHg Low 41-51 Venous Po2 98 mmHg High 35-45 Venous O2 Saturation 95.3 % High 70-80 Venous Blood Base Excess 0.1 N 0-4 60 Venous Bicarbonate Hco3 25.0 mmol/L N 24-28 CBC Auto Diff 08/25/2017 [facility] White Blood 8.9 10^3/uL N 3.5-10.[address] [place] [address] [phone] Red Blood Count 4.33 10^6/uL N 4.0-5.4 [...] Blood Cells % 0 Laboratory test 08/25/2017 [facility] Point of 289 mg/dL High 70-100 [address] [place] [address] [phone] Comp Metabolic 08/25/2017 [facility] Sodium 134 mmol/L N 133- 145 Panel [address] [place] [address] [phone] Potassium 4.8 mmol/L N 3.5-5.0 Chloride 101 [...] Egfr Non- 68.6 >60 Egfr 88.3 >60 62 Urinalysis Profile 08/25/2017 [facility] Urine Color Yellow [address] [place] [address] [phone] Urine Appearance Clear Urine Specific Harcourt 1.010 N 1.010-1.030 Urine pH 5.0 N 5-9 Urine Urobilinogen Negative Negative Urine Ketones Negative Negative Urine Protein Negative Negative Urine Leukocytes Negative Negative Urine Blood Negative Negative Urine Nitrite Negative Negative Urine Bilirubin Negative Negative Urine Glucose 3+(>=500 mg/dL) Abnormal Negative Laboratory test 08/25/2017 [facility] Point of 157 mg/dL High 70-100 63 finding 101 [facility] [place] [address] [phone] Laboratory test 08/23/2017 [facility] Point of 224 mg/dL High 70-100 64 finding 101 [facility] [place] [address] [phone] Laboratory test 08/22/2017 [facility] Lactic Acid 1.3 mmol/L N 0.5-2.0 65 finding [address] [place] [address] [phone] Comp Metabolic 08/22/2017 [facility] Sodium 131 mmol/L Low 133 -145 Panel [address] [place] [address] [phone] Potassium 4.6 mmol/L N 3.5-5.0 Chloride 98 [...] Egfr Non- 65.2 >60 Egfr 83.8 >60 66 Glucose 543 mg/dL High 70-100 67 Laboratory test 08/22/2017 [facility] Magnesium 2.0 mg/dL N 1.9-2.[address] [place], [place] [address] [phone] Creatine Kinase(CK) 121 U/L N 10-223 C Reactive Protein 4.62 mg/L N < 5.00 68 Troponin-I (TnI) 0.01 ng/mL <0.04 Laboratory test 08/22/2017 [facility] Glucose 417 mg/dL High 70-[address] [place] [address] [phone] Laboratory test 08/22/2017 [facility] Point of > 444 mg/dL High 70-[address] [place] [address] [phone] Urinalysis 08/22/2017 [facility] Urine Color Yellow Profile [address] [place] [address] [phone] Urine Appearance Cloudy Urine Specific Harcourt 1.023 N 1.010-1.030 Urine pH 6.0 N [...] Present Abnormal Absent Urine Culture And 08/22/2017 [facility] Urine Culture SEE RESULT [address] [place] [address] [phone] CBC Auto Diff 08/22/2017 [facility] White Blood 8.9 10^3/uL N 3.5-[address] Count 0.8 [place] [address] [phone] Red Blood Count 4.19 10^6/uL N 4.0-5.4 [...] Cells % 0.1 Venous Blood Gas 08/22/2017 [facility] Venous Blood pH 7.42 N 7.33-7.[address] [place] [address] [phone] Venous Pco2 49 mmHg N 41-51 Venous Po2 36 mmHg N 35-45 Venous O2 Saturation 78.1 % N 70-80 Venous Blood Base Excess 6.3 High 0-4 71 Venous Bicarbonate Hco3 29.4 mmol/L High 24-28 Inr/Protime 08/22/2017 [facility] Inr 0.91 N 0.77-1.02 [address] [place] [address] [phone] Laboratory test 08/18/2017 [facility] Point of 180 mg/dL High 70-100 72 finding [address] [place] [address] Glucose [phone] Urinalysis 08/17/2017 [facility] Urine Color Yellow Profile [address] [place] [address] [phone] Urine Appearance Cloudy Urine Specific Harcourt 1.016 N 1.010-1.030 Urine pH 5.0 N 5-9 Urine Urobilinogen Negative Negative Urine Ketones Negative Negative Urine Protein Negative Negative Urine Leukocytes Negative Negative Urine Blood Negative Negative Urine Nitrite Negative Negative Urine Bilirubin Negative Negative Urine Glucose 3+(>=500 mg/dL) Abnormal Negative Urine Drug 08/17/2017 [facility] Amphetamine Ur None Detected None Detect SCR ED & [address] [place] [address] [phone] Barbiturates Urine Screen None Detected None Detect Benzodiazepine Urine Screen None Detected None Detect Urine Cannabinoids Screen None Detected None Detect Urine Cocaine Screen None Detected None Detect Urine Opiates Screen None Detected None Detect Urine Phencyclidine Screen None Detected None Detect 73 Laboratory test 08/17/2017 [facility] Point of 276 mg/dL High 70-100 [address] [place] [address] [phone] Laboratory test 08/17/2017 [facility] Point of > 444 High 70- 100 [address] Care Glucose mg/[place] [address] [phone] Venous Blood 08/17/2017 [facility] Venous Blood 7.36 N 7.33- 7.[address] [place] [address] [phone] Venous Pco2 48 mmHg N 41-51 Venous Po2 29 mmHg Low 35-45 Venous O2 Saturation 59.9 % Low 70-80 Venous Blood Base Excess 1.1 N 0-4 76 Venous Bicarbonate Hco3 24.9 mmol/L N 24-28 CBC Auto Diff 08/17/2017 [facility] White Blood 10.8 10^3/uL N 3.5-10.[address] [place] [address] [phone] Red Blood Count 4.74 10^6/uL N 4.0-5.4 [...] Cells % 0 Comp Metabolic Panel 08/17/2017 [facility] Sodium 133 mmol/L N 133-[address] [place] [address] [phone] Potassium 4.9 mmol/L N 3.5-5.0 Chloride 101 [...] Egfr Non- 72.5 >60 Egfr 93.2 >60 77 Glucose 543 mg/dL High 70-100 78 Laboratory test 08/17/2017 [facility] Acetaminophen < 15 g/mL [address] [place] [address] [phone] Alcohol < 10 mg/dL N <10 Salicylate < 2.50 mg/dL <30 TSH (Thyroid Stim Horm) 2.76 mcIU/mL N 0.34-5.60 Lamotrigine (Lamictal) 4.2 g/mL 2.5 - 15.0 80 Laboratory test 08/17/2017 [facility] Point of > 444 High 70- 100 [address] Care Glucose mg/[place] [address] [phone] Laboratory test 08/09/2017 [facility] Point of 266 mg/dL High 70-100 [address] [place] [address] [phone] CBC Auto Diff 08/08/2017 [facility] White Blood 11.9 High 3.5- 10.[address] Count 10^3/[place] [address] [phone] Red Blood Count 4.78 10^6/uL N 4.0-5.4 [...] Cells % 0 Comp Metabolic Panel 08/08/2017 [facility] Sodium 136 mmol/L N 133-[address] [place] [address] [phone] Potassium 4.3 mmol/L N 3.5-5.0 Chloride 100 [...] Egfr Non- 74.5 >60 Egfr 95.9 >60 83 Laboratory test 08/08/2017 [facility] Acetaminophen < 15 g/mL [address] [place] [address] [phone] Alcohol < 10 mg/dL N <10 Salicylate < 2.50 mg/dL <30 TSH (Thyroid Stim Horm) 2.67 mcIU/mL N 0.34-5.60 Lamotrigine (Lamictal) 2.5 g/mL 2.5 - 15.0 85 Urinalysis Profile 08/08/2017 [facility] Urine Color Yellow [address] [place] [address] [phone] Urine Appearance Cloudy Urine Specific Harcourt 1.022 N 1.010-1.030 Urine pH 6.0 N 5-9 Urine Urobilinogen Negative Negative Urine Ketones Negative Negative Urine Protein Negative Negative Urine Leukocytes Negative Negative Urine Blood Negative Negative Urine Nitrite Negative Negative Urine Bilirubin Negative Negative Urine Glucose 3+(>=500 mg/dL) Abnormal Negative Urine Drug 08/08/2017 [facility] Amphetamine Ur None Detected None Detect SCR ED & [address] [place] [address] [phone] Barbiturates Urine Screen None Detected None Detect Benzodiazepine Urine Screen None Detected None Detect Urine Cannabinoids Screen None Detected None Detect Urine Cocaine Screen None Detected None Detect Urine Opiates Screen None Detected None Detect Urine Phencyclidine Screen None Detected None Detect 86 Laboratory test 08/04/2017 [facility] Point of Care 258 mg/dL High 70-100 [address] [place] [address] [phone] Laboratory test 08/04/2017 [facility] Point of Care 175 mg/dL High 70-100 [address] [place] [address] [phone] Laboratory test 08/04/2017 [facility] Point of Care 284 mg/dL High 70-100 [address] [place] [address] [phone] Urinalysis 08/03/2017 [facility] Urine Color Yellow Profile [address] [place] [address] [phone] Urine Appearance Cloudy Urine Specific Harcourt 1.012 N 1.010-1.030 Urine pH 5.0 N [...] Crystals Present Abnormal Absent Urine Drug 08/03/2017 [facility] Amphetamine Ur None Detected None Detect SCR ED & [address] [place] [address] [phone] Barbiturates Urine Screen None Detected None Detect Benzodiazepine Urine Screen None Detected None Detect Urine Cannabinoids Screen None Detected None Detect Urine Cocaine Screen None Detected None Detect Urine Opiates Screen None Detected None Detect Urine Phencyclidine Screen None Detected None Detect 90 Urine Culture And 08/03/2017 [facility] Urine SEE RESULT [address] [place] [address] [phone] CBC Auto Diff 08/03/2017 [facility] White Blood 10.9 High 3.5- [address] Count 10^3/uL 0.8 [place] [address] [phone] Red Blood Count 4.61 10^6/uL N 4.0-5.4 [...] Cells % 0 Comp Metabolic Panel 08/03/2017 [facility] Sodium 132 mmol/L Low 133-[address] [place] [address] [phone] Potassium 4.6 mmol/L N 3.5-5.0 Chloride 98 [...] Egfr Non- 67.7 >60 Egfr 87.1 >60 92 Laboratory test 08/03/2017 [facility] Acetaminophen < 15 g/mL [address] [place] [address] [phone] Alcohol < 10 mg/dL N <10 Salicylate < 2.50 mg/dL <30 TSH (Thyroid Stim Horm) 0.60 mcIU/mL N 0.34-5.60 Laboratory test 08/02/2017 [facility] Troponin-I 0.01 <0.[address] (TnI) ng/mL [place], [place] [address]406 [phone] CBC Auto Diff 08/02/2017 [facility] White Blood 13.8 High 3.5- 10.[address] Count 10^3/uL [place], [place] [address] [phone] Red Blood Count 4.64 10^6/uL N 4.0-5.4 [...] Cells % 0 Comp Metabolic Panel 08/02/2017 [facility] Sodium 133 mmol/L N 133-[address] [place] [address] [phone] Potassium 4.7 mmol/L N 3.5-5.0 Chloride 101 [...] Egfr Non- 76.7 >60 Egfr 98.7 >60 94 Laboratory test 08/02/2017 [facility] Troponin-I 0.03 <0.[address] (TnI) ng/mL [place], [place] [address] [phone] Urine Culture And 08/01/2017 [facility] Urine Culture SEE 95, [address] [place] [address] BELOW [phone] Laboratory test 06/13/2017 [facility] Hemoglobin 9.2 High 5-7 finding A1c Laboratory test 06/03/2017 [facility] Point of Care 184 mg/dL High 70-100 [address] Glucose [place], [place] [address]25[address] [phone] Laboratory test 06/03/2017 [facility] Point of Care 256 mg/dL High 70-100 [address] Glucose [place], [place] [address]97 [phone] Laboratory test 06/03/2017 [facility] Point of Care 329 mg/dL High 70-100 [address] Glucose [place], [place] [address] [phone] Laboratory test 06/03/2017 [facility] Point of Care 384 mg/dL High 70-100 [address] [place] [address] [phone] Laboratory test 06/03/2017 [facility] Point of Care > 444 High 70-100 [address] Glucose mg/dL [place], [place] [address] [phone] Laboratory test 06/03/2017 [facility] Point of Care > 444 High 70-100 [address] Glucose mg/dL [place], [place] [address] [phone] 1 Because ethnic data is not always [...] <50 ug/mL Toxic concentration: >120 ug/mL 3 Drag Sawyer: [id number] Drag Sawyer: [id number] 5 SEE RESULT BELOW Name: CECILIO ALFARO Cameron : [address]: Neo Steinberg MD Acct: [id number] Unit: [id number] AGE: 53 Location: ED Re11/21/18 SEX: F Status: DEP ER SPEC: [id number] ANKUR: 11/21/18-[address]: Neo Steinberg MD REQ: [id number] RECD: 11/21/18 STATUS: COMP [facility] DR: Rosa L Schroeder MD _ SOURCE: URINE SPDESC: ORDERED: Urine Culture Procedure Result Reported Site Urine Culture Final 11/23/18- 1003 ML No growth of clinically significant organisms * ML - Main Lab . END OF REPORT DEPARTMENT OF PATHOLOGY, [address] [place] [address] Tay Gamboa M.D. Director [facility] # [id number] 6 Drag Sawyer: [id number] 7 Because ethnic data is not always readily [...] 15-29 5 Kidney failure <15 (or dialysis) 8 Therapeutic concentration: <50 ug/mL Toxic concentration: >120 ug/mL 9 Drag Sawyer: [id number] 10 Because ethnic data is not always readily [...] 15-29 5 Kidney failure <15 (or dialysis) 11 <5.0 Negative 5.0 - 25.0 Indeterminate (Repeat testing recommended after 72 hours) >25.0 Positive Perimenopausal women can display HCG levels of up to 20 mIU/mL 12 Therapeutic concentration: <50 ug/mL Toxic concentration: >120 ug/mL 13 Drag Sawyer: [id number] 15 Test Result Flag Unit RefValue TRYPSIN See [...] cannot be used interchangeably. Test Performed by: [facility] [address] [place] [address] 16 [id number] 17 Because ethnic data is not always [...] 5 Kidney failure <15 (or dialysis) 18 Desirable: <150 Borderline High: 150-199 High: 200-499 Very High: >500 19 Desirable: <200 Borderline High: 200-239 High: >239 20 Low: <40 Desirable: 40-60 High: >60 21 Desirable: <100 Near Optimal: 100-129 Borderline High: 130-159 High: 160-189 Very High: >189 22 [id number] 23 Therapeutic target for the treatment of diabetes mellitus patients is <7% HBA1C, and in selective patients <6.0%. Please refer to [place] [employer] diabetic care guidelines for further information. 24 Drag Sawyer: [id number] 25 Because ethnic data is not always readily [...] 15-29 5 Kidney failure <15 (or dialysis) 26 Because ethnic data is not always [...] 5 Kidney failure <15 (or dialysis) 27 Therapeutic concentration: <50 ug/mL Toxic concentration: >120 ug/mL 28 The urine specimen was tested at the listed cutoffs: Drug class test level (ng/mL) Amphetamines 500 Barbiturates 200 Benzodiazepine metabolites 200 Cocaine metabolites 150 Cannabinoids 50 Opiates 300 Pcp 25 Specimen was received without chain of custody. Results should be used for medical purposes only. 29 SEE RESULT BELOW Name: CECILIO ALFARO Cameron : [address]: Sendy Mcdowell MD Acct: [id number] Unit: [id number] AGE: 53 Location: ED Re07/10/18 SEX: F Status: DEP ER SPEC: [id number] ANKUR: 07/10/[address]: Sendy Mcdowell MD REQ: [id number] RECD: 07/10/18 STATUS: COMP HR DR: Chapo Aguila MD _ SOURCE: URINE SPDESC: ORDERED: Urine Culture Procedure Result Reported Site Urine Culture Final 07/12/18- 0845 ML No growth of clinically significant organisms * ML - Main Lab . END OF REPORT DEPARTMENT OF PATHOLOGY, [address] [place] [address] Tay Gamboa M.D. Director [facility] # [id number] 30 Drag Sawyer: [id number] Drag Sawyer: [id number] 32 Drag Sawyer: [id number] 33 The urine specimen was tested at [...] <50 ug/mL Toxic concentration: >120 ug/mL 36 [facility] Severe Sepsis and Septic Shock Management Bundle Measure requires all lactic acids initially measuring >2.0 mmol/L be repeated. 37 Because ethnic data is not always [...] 5 Kidney failure <15 (or dialysis) 38 [facility] Severe Sepsis and Septic Shock Management Bundle Measure requires all lactic acids initially measuring >2.0 mmol/L be repeated. 39 SEE RESULT BELOW Name: CECILIO ALFARO Cameron : [address]: Danya Marquez MD Acct: [id number] Unit: [id number] AGE: 52 Location: [facility] Re05/15/18 SEX: F Status: REG REF SPEC: [id number] ANKUR: 05/15/18-[address]: Danya Marquez MD REQ: [id number] RECD: 05/15/18 STATUS: COMP _ SOURCE: STOOL SPDESC: ORDERED: Lacey kurtz PCR Procedure Result Reported Site Stool Specimen Description Final 05/15/18- 1306 ML Stool Color [place] Stool Form Semi-formed Stool Consistency Firm C. difficile PCR Final 05/15/18- 1306 ML Test not performed * ML - Main Lab . END OF REPORT DEPARTMENT OF PATHOLOGY, [address] [place] [address] Tay Gamboa M.D. Director [facility] # [id number] 40 Drag Sawyer: [id number] 41 Drag Sawyer: [id number] 42 Because ethnic data is not always [...] 5 Kidney failure <15 (or dialysis) 43 [facility] Severe Sepsis and Septic Shock Management Bundle Measure requires all lactic acids initially measuring >2.0 mmol/L be repeated. 44 Unable to calculate due to low microalbumin 45 Therapeutic concentration: <50 ug/mL Toxic concentration: >120 ug/mL 46 Presumptive Positive Presumptive positive results are unconfirmed. 47 The urine specimen was tested at the listed cutoffs: Drug class test level (ng/mL) Amphetamines 500 Barbiturates 200 Benzodiazepine metabolites 200 Cocaine metabolites 150 Cannabinoids 50 Opiates 300 Pcp 25 Specimen was received without chain of custody. Results should be used for medical purposes only. 48 Reference ranges based on room air. 49 [facility] Severe Sepsis and Septic Shock Management Bundle Measure requires all lactic acids initially measuring >2.0 mmol/L be repeated. 50 Because ethnic data is not always [...] 5 Kidney failure <15 (or dialysis) 51 Because ethnic data is not always [...] 5 Kidney failure <15 (or dialysis) 52 Low risk: <1.00 Average risk: 1.00-3.00 High risk: >3.00 53 Drag Sawyer: [id number] 54 Drag Sawyer: [id number] 55 Because ethnic data is not always [...] 5 Kidney failure <15 (or dialysis) 56 Low risk: <1.00 Average risk: 1.00-3.00 High risk: >3.00 57 >100 to <200 pg/mL: likely compensated congestive heart failure (CHF) 200 to 400 pg/mL: likely moderate CHF >400 pg/mL: likely moderate to severe CHF 58 Because ethnic data is not always readily [...] 15-29 5 Kidney failure <15 (or dialysis) 59 Acute inflammation: >10.00 60 Reference ranges based on room air. 61 Drag Sawyer: [id number] 62 Because ethnic data is not always readily [...] 15-29 5 Kidney failure <15 (or dialysis) 63 Drag Sawyer: [id number] 64 Drag Sawyer: [id number] 65 [facility] Severe Sepsis and Septic Shock Management Bundle Measure requires all lactic acids initially measuring >2.0 mmol/L be repeated. 66 Because ethnic data is not always readily [...] 15-29 5 Kidney failure <15 (or dialysis) 67 Critical Result [id number] Called to [id number] at: 21:48:40 by:[id number] Read back by:[id number] 68 Acute inflammation: >10.00 69 Drag Sawyer: [id number] 70 SEE RESULT BELOW Name: CECILIO ALFARO Cameron : [address]: Violeta Yusuf MD Acct: [id number] Unit: [id number] AGE: 52 Location: ED Re08/22/17 SEX: F Status: DEP ER SPEC: [id number] ANKUR: 08/22/[address]: Violeta Yusuf MD REQ: [id number] RECD: 08/22/17 STATUS: TASHA BARFIELD DR: Chapo Aguila MD _ SOURCE: [facility]INE [facility]: ORDERED: Urine Culture Procedure Result Reported Site Urine Culture Final 08/23/17- 1607 ML Mixed seema; possible contamination. Suggest resubmission. * ML - MAIN LAB ([facility]) . END OF REPORT * ML=Testing performed at Main Lab DEPARTMENT OF PATHOLOGY, [address] [place] [address] Tay Gamboa M.D. Director [facility] # [id number] 71 Reference ranges based on room air. 72 Drag Sawyer: [id number] 73 The urine specimen was tested at the listed cutoffs: Drug class test level (ng/mL) Amphetamines 500 Barbiturates 200 Benzodiazepine metabolites 200 Cocaine metabolites 150 Cannabinoids 50 Opiates 300 Pcp 25 Specimen was received without chain of custody. Results should be used for medical purposes only. 74 Drag Sawyer: [id number] 75 Drag Sawyer: [id number] 76 Reference ranges based on room air. 77 Because ethnic data is not always readily [...] 15-29 5 Kidney failure <15 (or dialysis) 78 Critical Result [id number] Called to [id number] at: 18:00:03 by:[id number] Read back by:[id number] 79 Therapeutic concentration: <50 ug/mL Toxic concentration: >120 ug/mL 80 ADDITIONAL INFORMATION This test was developed and its performance characteristics determined by [facility] in a manner consistent with CLIA requirements. This test has not been cleared or approved by the U.S. Food and Drug Administration. Test Performed by: [facility] [address] [place] [address] 81 Drag Sawyer: [id number] 82 Drag Sawyer: [id number] 83 Because ethnic data is not always readily [...] 15-29 5 Kidney failure <15 (or dialysis) 84 Therapeutic concentration: <50 ug/mL Toxic concentration: >120 ug/mL 85 ADDITIONAL INFORMATION This test was developed and its performance characteristics determined by [facility] in a manner consistent with CLIA requirements. This test has not been cleared or approved by the U.S. Food and Drug Administration. Test Performed by: [facility] [address] [place] [address] 86 The urine specimen was tested at the listed cutoffs: Drug class test level (ng/mL) Amphetamines 500 Barbiturates 200 Benzodiazepine metabolites 200 Cocaine metabolites 150 Cannabinoids 50 Opiates 300 Pcp 25 Specimen was received without chain of custody. Results should be used for medical purposes only. 87 Drag Sawyer: [id number] 88 Drag Sawyer: [id number] 89 Drag Sawyer: [id number] 90 The urine specimen was tested at the listed cutoffs: Drug class test level (ng/mL) Amphetamines 500 Barbiturates 200 Benzodiazepine metabolites 200 Cocaine metabolites 150 Cannabinoids 50 Opiates 300 Pcp 25 Specimen was received without chain of custody. Results should be used for medical purposes only. 91 SEE RESULT BELOW Name: CECILIO ALFARO : [address]: Sendy Mcdowell MD Acct: [id number] Unit: [id number] AGE: 52 Location: ED Re08/03/17 SEX: F Status: REG ER SPEC: [id number] ANKUR: 08/03/[address] [facility] DR: Sendy Mcdowell MD REQ: [id number] RECD: 08/03/17 STATUS: TASHA BARFIELD DR: Chapo Aguila MD _ SOURCE: URINE SPDESC: ORDERED: Urine Culture Procedure Result Reported Site Urine Culture Final 08/05/17- 1225 ML No growth of clinically significant organisms * ML - MAIN LAB ([facility]) . END OF REPORT * ML=Testing performed at Main Lab DEPARTMENT OF PATHOLOGY, [address] [place] [address] Tay Gamboa M.D. Director [facility] # [id number] 92 Because ethnic data is not always readily [...] 15-29 5 Kidney failure <15 (or dialysis) 93 Therapeutic concentration: <50 ug/mL Toxic concentration: >120 ug/mL 94 Because ethnic data is not always readily [...] 15-29 5 Kidney failure <15 (or dialysis) 95 [id number] 96 SEE RESULT BELOW Name: CECILIO ALFARO : [address]: Any Ramirez MD Acct: [id number] Unit: [id number] AGE: 52 Location: [facility] Re08/01/17 SEX: F Status: DEP ER SPEC: [id number] ANKUR: 08/01/17-[address] [facility] DR: Any Ramirez MD REQ: [id number] RECD: 08/02/17-1105 STATUS: TASHA BARFIELD DR: Chapo Aguila MD _ SOURCE: URINE SPDESC: ORDERED: Urine Culture COMMENTS: [id number] Procedure Result Reported Site Urine Culture Final 08/03/17- 1251 ML Mixed seema; possible contamination. Suggest resubmission. * ML - MAIN LAB ([facility]) . END OF REPORT * ML=Testing performed at Main Lab DEPARTMENT OF PATHOLOGY, [address] [place] [address] Tay Gamboa M.D. Director [facility] # [id number] 97 Drag Sawyer: [id number] Drag Sawyer: [id number] 99 Drag Sawyer: [id number] 100 Drag Sawyer: [id number] 101 Drag Sawyer: [id number] 102 Drag Sawyer: [id number] Procedures Date Code Description Status 07/21/2018 47343 Inhalation [place] For Acute Airway Obstruction Completed W/Nebulizer/Inhaler 11/03/2017 00549 EKG, Interpretation Only Completed 10/26/2017 [id number] Diabetic Retinal Eye Exam Completed 10/11/2017 18649 Inject/Drain Joint/Bursa Major W/O US Completed 06/03/2017 07199 Carpal Tunnel Release Completed 06/03/2017 67136 Carpal Tunnel Release Completed 05/01/2016 [id number] Mammogram Completed 04/06/2016 58185 EEG Recording Awake & Drowsy Completed 04/03/2016 10035 EKG, Interpretation Only Completed 04/29/2015 23685 EEG Recording Awake & Drowsy Completed 04/16/2012 76857 EKG, Interpretation Only Completed 04/16/2012 66672 EKG, Interpretation Only Completed Encounters Type Date Location Provider Dx Diagnosis Office Visit 10/26/2018 [facility] Moreno Sandoval MD 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 4:00p [facility]ocr[facility] of [facility] (current) use of insulin E11.65 Type 2 diabetes mellitus with hyperglycemia E03.9 Hypothyroidism, unspecified Office Visit 10/19/2018 [facility] Jun Simental M51.26 Other intervertebral 11:00a Jaylene Denson M.D.,FACP disc displacement, [address] lumbar region E11.65 Type 2 diabetes mellitus with hyperglycemia K59.00 Constipation, unspecified Office Visit 10/18/2018 1:15p Spine Navigator Consuelo Corrales M51.26 Other intervertebral Of [facility] PA-C disc displacement, lumbar region 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, lumbosacral region Office Visit 10/02/2018 3:00p [facility] Jun Schroeder MD I10 Essential (primary) Medicine - [address] M54.16 Radiculopathy, lumbar region F17.211 Nicotine dependence, cigarettes, in remission E66.9 Obesity, unspecified B37.3 Candidiasis of vulva and vagina Office Visit 09/25/2018 3:00p Spine Navigator Consuelo Corrales M54.16 Radiculopathy, Of [facility] PA-C lumbar region Office Visit 09/06/2018 2:20p [facility] Jun Schroeder, I10 Essential ( primary) Medicine - [address] E11.65 Type 2 diabetes mellitus with hyperglycemia R19.7 Diarrhea, unspecified M54.41 Lumbago with sciatica, right side F17.210 Nicotine dependence, cigarettes, uncomplicated R68.84 Jaw pain F60.3 Borderline personality disorder Office Visit 07/26/2018 [facility] Jun Simental J40 Bronchitis, not 2:40p Jaylene Denson [...] unsp, init encntr Office Visit 07/18/2018 11:00a [facility] Mayer Coch, 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 [facility] [place] (current) use of insulin E11.65 Type 2 diabetes mellitus with hyperglycemia E03.9 Hypothyroidism, unspecified R15.2 Fecal urgency Office Visit 07/04/2018 1:00p [facility] Moreno Sandoval, 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 [facility] [place] (current) use of insulin E11.65 Type 2 diabetes mellitus with hyperglycemia E03.9 Hypothyroidism, unspecified R19.7 Diarrhea, unspecified T50.902D Poisoning by unsp drug/meds/biol subst, self-harm, subs Office Visit 07/03/2018 10:00a [facility] Internal Rosa Schroeder, E11.65 Type 2 diabetes Medicine [place] mellitus with [address] hyperglycemia I10 Essential [...] sciatica, right side Office Visit 05/22/2018 2:30p [facility] Internal Rosa Schroeder, R19.7 Diarrhea, Medicine - [address] L08.1 Erythrasma R15.1 Fecal smearing Office Visit 05/15/2018 1:30p [facility] Internal Rosa Schroeder, R19.7 Diarrhea, Medicine - [address] F17.210 Nicotine dependence, cigarettes, uncomplicated J45.909 Unspecified asthma, uncomplicated E11.65 Type 2 diabetes mellitus with hyperglycemia Z91.81 History of falling E11.9 Type 2 diabetes mellitus without complications Office Visit 05/08/2018 9:30a [facility] Internal Rosa Schroeder, E11.65 Type 2 diabetes Medicine - mellitus with [address] hyperglycemia R15.1 Fecal smearing I10 Essential (primary) hypertension R94.5 Abnormal results of liver function studies F33.3 Major depressv disorder, recurrent, severe w psych symptoms Office Visit 11/04/2017 [facility] Sherita Lui, G92 Toxic encephalopathy 11:25a Assoc,matthieu Sahu Hospitalists T50.904A Poisoning by unsp drug/meds/biol subst, undetermined, init F60.3 Borderline personality disorder R40.2432 [place] coma scale score 3-8, EMR Office Visit 11/03/2017 11:23a Intensivists Ishmael Dumont G92 Toxic encephalopathy Cheng, D.O. F60.3 Borderline personality disorder T50.904A Poisoning by unsp drug/meds/biol subst, undetermined, init R40.2432 [place] coma scale score 3-8, EMR Office Visit 11/02/2017 11:22a Intensivists Ishmael Dumont R40.2432 [place] coma Cheng, D.O. scale score 3-8, EMR G92 Toxic encephalopathy T50.904A Poisoning by unsp drug/meds/biol subst, undetermined, init F60.3 Borderline personality disorder Office Visit 10/18/2017 Orthopedic Naveed Lutz M75.31 Calcific tendinitis 9:00a Services Of MD Venecia of right shoulder C.M.A. Office Visit 10/13/2017 [facility] Internal Chapo E11.65 Type 2 diabetes 1:40p Medicine - [place], mellitus with Rd M.D. hyperglycemia Z12.31 Encntr screen mammogram for malignant neoplasm of breast Z12.11 Encounter for screening for malignant neoplasm of colon Office Visit 10/11/2017 Orthopedic Naveed Lutz M75.31 Calcific tendinitis 1:30p Services Of MD [place] of right shoulder C.M.A. Office Visit 09/28/2017 [facility] Internal Chapo E11.65 Type 2 diabetes 1:20p Medicine [place], mellitus with M.D. hyperglycemia M79.645 Pain in left finger(s) E03.9 Hypothyroidism, unspecified Office Visit 09/19/2017 [facility] Internal Chapo E11.65 Type 2 diabetes 2:40p Medicine - [place], M.D. mellitus with [address] hyperglycemia M54.5 Low back pain Office Visit 08/17/2017 2:10p [facility] Internal Lachelle F33.3 Major depressv Medicine - [place], [employer] disorder, [address] recurrent, severe w psych symptoms R45.851 Suicidal ideations Office Visit 08/11/2017 1:20p [facility] Internal [place], F31.31 Bipolar Medicine - MMarkel disorder, [address] current episode depressed, mild M51.16 Intervertebral disc disorders w radiculopathy, lumbar region K63.5 Polyp of colon K21.9 Gastro-esophageal reflux disease without esophagitis Office Visit 07/15/2017 11:00a [facility] Internal [place] E11.9 Type 2 diabetes Jaylene Aguila M.D. mellitus without [address] complications M51.16 Intervertebral disc disorders w radiculopathy, lumbar region F31.31 Bipolar disorder, current episode depressed, mild E66.01 Morbid (severe) obesity due to excess calories Z68.41 Body mass index (BMI) 40.0-44.9, adult Office Visit 06/13/2017 3:20p [facility] Internal [place] E11.9 Type 2 diabetes Jaylene Aguila M.D. 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 abscess, Hospitalists unspecified E11.9 Type 2 diabetes mellitus without complications 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 (current) use of insulin [facility] Poisoning by 3:25p Assocmatthieu M.D. 4-Aminophenol Hospitalists derivatives, self-harm, init E11.9 Type 2 diabetes mellitus without complications F79 Unspecified intellectual disabilities [facility] Poisoning by 3:24p Assoc,matthieu Lui M.D. 4-Aminophenol Hospitalists derivatives, self-harm, init E11.9 Type 2 diabetes mellitus without complications F79 Unspecified intellectual disabilities [facility] Poisoning by 3:24p Assmatthieu drake M.D. 4-Aminophenol Hospitalists derivatives, self-harm, init E11.9 Type 2 diabetes mellitus without complications F79 Unspecified intellectual disabilities Office Visit [facility]/18[facility] T[facility].1x2A Poisoning by 3:23p Assocmatthieu M.D. 4-Aminophenol Hospitalists derivatives, self-harm, init E11.9 Type 2 diabetes mellitus without complications F79 Unspecified intellectual disabilities Office Visit 05/17/2016 [facility] Ml T39.1x2A Poisoning by 3:23p Assocmatthieu M.D. 4-Aminophenol Hospitalists derivatives, self-harm, init E11.9 Type 2 diabetes mellitus without complications F79 Unspecified intellectual disabilities [facility] Poisoning by 3:22p Assocmatthieu M.D. 4-Aminophenol Hospitalists derivatives, self-harm, init E11.9 Type 2 diabetes mellitus without complications F79 Unspecified intellectual disabilities Office Visit [facility]2016 [facility] T39.1x2A Poisoning by 3:22p Assmatthieu drake M.D. 4-Aminophenol Hospitalists derivatives, self-harm, init E11.9 Type 2 diabetes mellitus without complications F79 Unspecified intellectual disabilities [facility] T[facility] Poisoning by 3:22p Assoc,matthieu Daly D.O. 4-Aminophenol Hospitalists derivatives, self-harm, init E11.9 Type 2 diabetes mellitus without complications F79 Unspecified intellectual disabilities Office Visit 05/13/2016 [facility] T39.1x2A Poisoning by 3:21p Assocmatthieu D.O. 4-Aminophenol Hospitalists derivatives, self-harm, init E11.9 Type 2 diabetes mellitus without complications F79 Unspecified intellectual disabilities Office Visit 05/12/2016 [facility] Yara T39.1x2A Poisoning by 3:21p Assocmatthieu D.O. 4-Aminophenol Hospitalists derivatives, self-harm, init E11.9 Type 2 diabetes mellitus without complications F79 Unspecified intellectual disabilities Office 05/11/2016 [facility] Benjamin T39.1x2A Poisoning by Visit 3:20p Assocmatthieu, PA 4-Aminophenol Hospitalists derivatives, self-harm, init E11.9 Type 2 diabetes mellitus without complications F79 Unspecified intellectual disabilities Office Visit 05/03/2016 [facility] Anu R73.9 Hyperglycemia, 11:09a Assoc,matthieu Diaz, DO unspecified Hospitalists J40 Bronchitis, not specified as acute or chronic G89.4 Chronic pain syndrome Office Visit 04/07/2016 3:52p [facility] Ml R40.4 Transient Assocmatthieu M.D. alteration of Hospitalists awareness E13.9 Other specified diabetes mellitus without complications F79 Unspecified intellectual disabilities Z91.19 Patient's noncompliance w oth medical treatment and regimen Office Visit 04/06/2016 3:52p [facility] Ml R40.4 Transient Assocmatthieu M.D. alteration of Hospitalists awareness E13.9 Other specified diabetes mellitus without complications F79 Unspecified intellectual disabilities Z91.19 Patient's noncompliance w oth medical treatment and regimen Office Visit 04/05/2016 3:51p [facility] Yara R40.4 Transient Assocmatthieu D.O. alteration of Hospitalists awareness E13.9 Other specified diabetes mellitus without complications F79 Unspecified intellectual disabilities Z91.19 Patient's noncompliance w oth medical treatment and regimen Office Visit 04/04/2016 3:51p [facility] Yara R40.4 Transient Assocmatthieu D.O. alteration of Hospitalists awareness E13.9 Other specified diabetes mellitus without complications F79 Unspecified intellectual disabilities Z91.19 Patient's noncompliance w oth medical treatment and regimen Office Visit 04/03/2016 3:50p [facility] Rosi R40.4 Transient Assoc,matthieu Grant, LUZ alteration of Hospitalists awareness E13.9 Other specified diabetes mellitus without complications F79 Unspecified intellectual disabilities Z91.19 Patient's noncompliance w oth medical treatment and regimen Office Visit 10/01/2015 10:08a [facility] Gray M54.31 Sciatica, right Assoc,matthieu Conn, N.P. side Hospitalists E11.9 Type 2 diabetes mellitus without complications F60.3 Borderline personality disorder Office Visit 09/28/2015 10:06a [facility] Ml M54.31 Sciatica, right Assoc,matthieu Mosquera M.D. side Hospitalists E11.9 Type 2 diabetes mellitus without complications Office Visit 04/24/2015 [facility] Conner 276.1 Hyposmolality & Or 1:31p Assmatthieu drake M.D. Hyponatremia Hospitalists 296.7 Bipolar I Disorder Current NOS 301.83 Borderline Personality Disorder Office Visit 04/23/2015 [facility] Conner 276.1 Hyposmolality & Or 1:30p matthieu Lowe M.D. Hyponatremia Hospitalists 250.00 Diabetes Mellitus W/O Compl Type II Or Unspec Controlled 296.7 Bipolar I Disorder Current NOS 301.83 Borderline Personality Disorder Office Visit 04/22/2015 [facility] Quique 276.1 Hyposmolality & Or 1:29p Assmatthieu drake M.D. Hyponatremia Hospitalists 250.00 Diabetes Mellitus W/O Compl Type II Or Unspec Controlled 301.83 Borderline Personality Disorder Office Visit 04/21/2015 [facility] Gray 276.1 Hyposmolality & Or 1:28p Assocmatthieu, N.P. Hyponatremia Hospitalists 296.7 Bipolar I Disorder Current NOS 301.83 Borderline Personality Disorder 250.00 Diabetes Mellitus W/O Compl Type II Or Unspec Controlled Office Visit 11/27/2014 [facility] Sherita 244.9 Hypothyroidism 8:42a Assocmatthieu M.D. Other Unspec Hospitalists 250.02 Diabetes Mellitus W/O Compl Type II Or Unspec Type Uncontrol 301.83 Borderline Personality Disorder Office Visit 04/17/2012 [facility] 969.09 Poisoning By Other 4:07p Assoc,matthieu Daly D.O. Antidepressants Hospitalists 300.9 Nonpsychotic Disorders NOS 311 Depressive Disorder Not Elsewhere Spec Office 04/16/2012 [facility] 969.09 Poisoning By Other Visit 4:35p Assoc,matthieu Grajeda M.D. Antidepressants Hospitalists 300.9 Nonpsychotic Disorders NOS 311 Depressive Disorder Not Elsewhere Spec V11.1 History Personal Affective Disorder Office Visit 10/18/2009 1:00a [facility] Edin, 789.00 Pain Abdominal Assocmatthieu M.D. Unspec Site Hospitalists 787.03 Vomiting Alone 790.29 Other Abnormal Glucose 250.02 Diabetes Mellitus W/O Compl Type II Or Unspec Type Uncontrol Office Visit 10/17/2009 3:00a [facility] Jase Jesus, 790.29 Other Abnormal Assocmatthieu M.D. Glucose Hospitalists 789.00 Pain Abdominal Unspec Site 295.70 Schizoaffective Disorder NOS 401.9 Hypertension Unspec Office Visit 10/16/2009 12:15a [facility] Sherita 790.29 Other Abnormal Assoc,matthieu Marshall M.D. Glucose Hospitalists 296.80 Bipolar Disorder NOS Plan of Treatment Future Appointment(s):12/15/2018 2:00 pm - Rosa Schroeder MD at [facility] Internal Xudnqyjp93/22/2019 8:00 am - Rosa Schroeder MD at [facility] Internal [id number] 11:40 am - Moreno Sandoval MD at [facility]01/02 2:40 pm - Rosa Schroeder MD at [facility] Internal Dmfyoobj43/10/2019 - Moreno Sandoval MDE11.65 Type 2 diabetes mellitus with hyperglycemiaInstructions:1. I recommend fixed doses of insulin 4 times daily: - Fiasp 26 units with meals ( no sliding scale)- Basaglar 70 units at bedtime 2. Avoid sliding scale insulin. 3. Do not eat food or snacks betweenmeals 4. Administer insulin only under observation by qualified staff. 5. Return in 6 weeks for a follow-up visit.Z79.4 group home (current) use of caetpavQ76.9 Hypothyroidism, ltxyroqctfiY14.9 Schizoaffective disorder, unspecified
[2018-12-08] MEDS ORDERED: Metoclopramide IV* 5 MG/ML 2 ML VIAL IV SLOW PU ONE (23:39)
[2018-12-08] MEDS ORDERED: NS 0.9% 1000 ML** 1,000 ML IV ONE (23:39)
[2018-12-09] MEDS ORDERED: Pantoprazole IV* 40 MG IV ONE (00:02)
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
[2018-12-09 00:27] LABS: ABS Eosinophils 0.1 10^3/ul (0-0.6); ABS Lymphocytes 2.6 10^3/ul (1.0-4.8); ABS Monocytes 0.5 10^3/ul (0-0.8); ABS Neutrophils 6.5 10^3/ul (1.5-7.7); Hematocrit 41 % (35-47); Hemoglobin 13.3 g/dL (12.0-16.0); Lymphocyte % 26.6 %; Mean Corpuscular HGB Conc 33 g/dL (31-36); Mean Corpuscular Hemoglobin 30 pg (27-31); Mean Corpuscular Volume 92 fL (80-97); Nucleated Red Blood Cells % 0.1; Platelet Count 196 10^3/uL (150-450); Red Blood Count 4.43 10^6 /uL (3.70-4.87); Red Cell Distribution Width 16 % (10.5-15); White Blood Count 9.7 10^3/uL (3.5-10.8)
[2018-12-09 00:42] LABS: ALT 46 U/L (7-52); Albumin 3.7 g/dL (3.2-5.2); Albumin/Globulin Ratio 1.1 (1-3); Alkaline Phosphatase 123 U/L (34-104); Amylase 23 U/L (29-103); BUN/Creatinine Ratio 22.1 (8-20); Blood Urea Nitrogen 21 mg/dL (6-24); CO2 Carbon Dioxide 26 mmol/L (22-32); Calcium 8.9 mg/dL (8.6-10.3); Chloride 106 mmol/L (101-111); EGFR African American 74.7 (>60); EGFR Non-African American 61.8 (>60); Globulin 3.4 g/dL (2-4); Glucose 244 mg/dL (70-100); Sodium 139 mmol/L (135-145); Total Protein 7.1 g/dL (6.4-8.9)
[2018-12-09] MEDS ORDERED: Insulin REGULAR(*) 1 UNITS UNIT IV PUSH ONE (00:46)
[2018-12-09 01:36] LABS: AST 51 U/L (13-39); Anion Gap 7 mmol/L (2-11); Potassium 4.9 mmol/L (3.5-5.0)
[2018-12-09 02:01] VITALS: BP 92/64
== END 2018-12-09 01:48 | disposition home or self-care (01) ==
LOC: ED 22:36
DX: K52.9 Noninfective gastroenteritis and colitis, unspecified (principal); E11.9 Type 2 diabetes mellitus without complications; E07.9 Disorder of thyroid, unspecified; K86.1 Other chronic pancreatitis; J45.909 Unspecified asthma, uncomplicated; K21.9 Gastro-esophageal reflux disease without esophagitis; R62.50 Unspecified lack of expected normal physiological development in childhood; F17.210 Nicotine dependence, cigarettes, uncomplicated; Z88.3 Allergy status to other anti-infective agents; Z88.8 Allergy status to other drugs, medicaments and biological substances; Z88.0 Allergy status to penicillin; Z88.2 Allergy status to sulfonamides; Z91.040 Latex allergy status; Z79.899 Other long term (current) drug therapy
CPT/HCPCS: 36415; 80053; 82150; 83690; 85025; 96361; 96374; 96375; 99284; J2765

== ENCOUNTER 2018-12-10 17:08 | Emergency (ER) | payer MEDICARE, MEDICAID ==
[2018-12-10] MEDS ORDERED: Loperamide CAP* 2 MG PO ONE (17:17)
[2018-12-10] MEDS ORDERED: Famotidine TAB* 20 MG PO ONE (17:17)
[2018-12-10] MEDS ORDERED: Aspirin 81 mg CHEW TAB* 81 MG TAB.CHEW PO ONE (17:17)
--- NOTE | 2018-12-10 17:32 | ED ---
HPI Chest Pain - HPI Summary HPI Summary: This patient is a 53 year old F brought in by EMS, sent from [place], presenting to [facility] with a chief complaint of intermittent sternal CP since last Tuesday12/02/18. Patient reports the pain has been waxing and waning since the onset. Patient reports that the pain also radiates intermittently to her L arm. Patient also reports recent stress, and mother was recently diagnosed with a GI illness. Patient reports anxiety, nausea, diarrhea, and dry heaving. Patient denies LE pain, GERMAN, SOB and fever. Prior to arrival EMS administered Zofran. As per medical records, patient has a Hx of eating batteries. Patient denies eating any batteries prior to this visit. - History of Current Complaint Time Seen by Provider: 12/10/18 17:10 Hx Obtained From: Patient, Medical Records Onset/Duration: Started Weeks Ago - 1 Timing: Intermittent Initial Severity: Moderate Current Severity: Moderate Pain Intensity: 6 Pain Scale Used: 0-10 Numeric Chest Pain Location: Mid Sternal Chest Pain Radiates: Yes Chest Pain Radiates To:: Arm - L Aggravating Factor(s): Nothing Alleviating Factor(s): Nothing Associated Signs and Symptoms: Positive: Chest Pain, Anxiety, Nausea, Vomiting - Dry heaving, Other: - Diarrhea, No LE pain. Negative: Headaches, Shortness of Breath, Fever - Additional Pertinent History Primary Care Physician: RICKY - Allergy/Home Medications Allergies/Adverse Reactions: Allergies Allergy/AdvReac Type Severity Reaction Status Date / Time ciprofloxacin Allergy Dizziness Verified 12/05/18 19:52 latex Allergy Rash Verified 12/05/18 19:52 lithium Allergy See Comment Verified 12/05/18 19:52 lurasidone [From Latuda] Allergy Altered Verified 12/05/18 19:52 Mental Status nalbuphine Allergy Unknown Verified 12/05/18 19:52 Reaction Details naldemedine Allergy Unknown Verified 12/05/18 19:52 Reaction Details Penicillins Allergy Rash Verified 12/05/18 19:52 perphenazine Allergy Unknown Verified 12/05/18 19:52 Reaction Details Sulfa (Sulfonamide Allergy Hives Verified 12/05/18 19:52 Antibiotics) tramadol Allergy Altered Verified 12/05/18 19:52 Mental Status ENVIRONMENTAL Allergy Mild SINUS Uncoded 12/05/18 19:52 PMH/Surg Hx/FS Hx/Imm Hx Endocrine/Hematology History: Reports: Hx Diabetes, Hx Thyroid Disease, Other Endocrine/Hematological Disorders - Chronic pancreatitis Denies: Hx Anticoagulant Therapy Cardiovascular History: Reports: Hx Hypertension, Other Cardiovascular Problems/ Disorders - HX OF PSVT 04/2008 Denies: Hx Pacemaker/ICD Respiratory History: Reports: Hx Asthma, Hx Seasonal Allergies, Hx Sleep Apnea - HX OF IN THE PAST Denies: Hx Chronic Bronchitis, Hx Chronic Obstructive Pulmonary Disease (COPD ), Hx Cystic Fibrosis, Hx Lung Cancer, Hx Pleural Effusion, Hx Pneumonia, Hx Pulmonary Edema, Hx Pulmonary Embolism, Other Respiratory Problems/Disorders GI History: Reports: Hx Gall Bladder Disease, Hx Gastroesophageal Reflux Disease - ON MEDICATION FOR, Hx Gastrointestinal Bleed, Hx Irritable Bowel, Other GI Disorders - HX OF pancreatitis- STATES LAST ABOUT 2 WEEKS AGO- STATES SLIGHT CASE Denies: Hx Ulcer History: Reports: Other Problems/Disorders - urinary incontinence Denies: Hx Dialysis, Hx Renal Disease Musculoskeletal History: Reports: Hx Arthritis, Hx Back Problems, Other Musculoskeletal History - GEN MUSCULOSKELETAL PAIN Denies: Hx Rheumatoid Arthritis, Hx Bursitis, Hx Congenital Bone Abnormalities, Hx Fibromyalgia, Hx Gout, Hx Orthopedic Injury, Hx Osteoporosis, Hx Scoliosis, Hx Tendonitis Sensory History: Reports: Hx Contacts or Glasses, Hx Vision Problem Denies: Hx Cataracts, Hx Eye Injury, Hx Eye Prosthesis, Hx Glaucoma, Hx Macular Degeneration, Hx Hearing Aid, Other Sensory Impairments Opthamlomology History: Reports: Hx Contacts or Glasses, Hx Vision Problem Denies: Hx Cataracts, Hx Eye Injury, Hx Eye Prosthesis, Hx Glaucoma, Hx Macular Degeneration, Other Sensory Impairments Neurological History: Reports: Hx Developmental Delay - intellectual disability , Hx Seizures - STATES WITH ALLERGIC REACTION TO TRAMADOL Denies: Hx Dementia, Hx Headaches, Other Neuro Impairments/Disorders Psychiatric History: Reports: Hx Anxiety, Hx Depression, Hx Post Traumatic Stress Disorder, Hx Inpatient Treatment, Hx Community Mental Health Tx, Hx Bipolar Disorder - pt manic, Hx Suicide Attempt, Hx of Violent Episodes Against Others, Other Psychiatric Issues/Disorders - PSYCHOSIS NOS, HX OF PTSD, SCHIZOAFFECTIVE DISORDER, BORDERLINE PERSONALITY Denies: Hx Attention Deficit Hyperactivity Disorder, Hx Eating Disorder, Hx Panic Disorder, Hx Schizophrenia, Hx Substance Abuse - Cancer History Cancer Type, Location and Year: None reported - Surgical History Surgery Procedure, Year, and Place: 2011-CATARACT EXTRACTION. GALLBLADDER REMOVED Hx Anesthesia Reactions: No - Immunization History Date of Tetanus Vaccine: unk Date of Influenza Vaccine: fall 2017 Infectious Disease History: No Infectious Disease History: Denies: Hx Clostridium Difficile, Hx Hepatitis, Hx Human Immunodeficiency Virus (HIV), Hx of Known/Suspected MRSA, Hx Shingles, Hx Tuberculosis, Hx Known/ Suspected VRE, Hx Known/Suspected VRSA, History Other Infectious Disease, Traveled Outside the [place] in Last 30 Days - Family History Known Family History: Positive: Other - Anxiety and depression, [place] - father Negative: Cardiac Disease, Hypertension, Diabetes Family History: Depression and anxiety - Social History Alcohol Use: None Hx Substance Use: Yes Substance Use Type: Reports: None Hx Tobacco Use: Yes Smoking Status (MU): Current Every Day Smoker Type: Cigarettes Amount Used/How Often: 1/2 PPD FOR LAST 30 DAYS, NO OTHER TOBACCO Length of Time of Smoking/Using Tobacco: since she was "young" Have You Smoked in the Last Year: Yes - Patient has smoked within the last 30 days Review of Systems Negative: Fever Positive: Chest Pain - sternal Negative: Shortness Of Breath Positive: Vomiting - Dry heaving, Diarrhea, Nausea Positive: Other - L sided radiated pain, Negative: LE pain Negative: Headache Positive: Anxious All Other Systems Reviewed And Are Negative: Yes Physical Exam - Summary Physical Exam Summary: Appearance: well appearing, no pain distress Skin: warm, dry, reflects adequate perfusion Head/face: normal Eyes: EOMI, JENNIFER ENT: mucous membranes moist Neck: supple, non-tender Respiratory: CTA, breath sounds present Cardiovascular: RRR, pulses symmetrical Abdomen: non-tender, soft Bowel Sounds: present Musculoskeletal: normal, strength/ROM intact Neuro: normal, sensory motor intact, A&Ox3 Triage Information Reviewed: Yes Vital Signs On Initial Exam: Initial Vitals Temp Pulse Resp BP Pulse Ox 98.4 F 67 20 158/109 97 12/10/18 17:18 12/10/18 17:18 12/10/18 17:18 12/10/18 17:18 12/10/18 17:18 Vital Signs Reviewed: Yes Diagnostics - Vital Signs Vital Signs Temp Pulse Resp BP Pulse Ox 12/10/18 17:18 98.4 F 67 20 158/109 97 - Laboratory Lab Statement: Any lab studies that have been ordered have been reviewed, and results considered in the medical decision making process. - Radiology Abdominal X Ray Radiology Interpretation Completed By: Radiologist Summary of Radiographic Findings: THERE ARE NO METALLIC OR OTHER FOREIGN BODIES IN THE GASTROINTESTINAL TRACT. THE 4 BATTERIES SEEN ON THE PRIOR KUB OVERLYING THE LOW ABDOMEN ARE NOT SEEN TODAY. ED physiclarisaan has reviewed the report. - EKG 17:59 Cardiac Rate: NL - 60 BPM EKG Rhythm: Sinus Rhythm ST Segment: Normal Summary of EKG Findings: Normal sinus rate, normal axis, normal interval, normal ST wave 17:29 Cardiac Rate: NL - 60 BPM EKG Rhythm: Sinus Rhythm ST Segment: Normal Summary of EKG Findings: Normal sinus rate, normal axis, normal interval, normal ST wave Chest Pain Course/Dx - Course Course Of Treatment: Nurse's notes reviewed. Patient is very well-known to the ER and presents today with week worth of chest pain and GI upset. She states her mother develop GI symptoms which she now has. She has not eaten any batteries as confirmed by KUB. This is a frequent issue for her. She had a normal EKG and was feeling better with GI treatments. She'll continue on same outpatient. - Chest Pain Differential Diagnosis/HQI/PQRI: Acute NV, ACS, Chest Wall, GI Disease - Diagnoses Provider Diagnoses: Atypical chest pain, Gastroenteritis, Intellectual disability Discharge - Sign-Out/Discharge Documenting (check all that apply): Patient Departure - discharge Patient Received Moderate/Deep Sedation with Procedure: No - Discharge Plan Condition: Improved Disposition: HOME Prescriptions: Famotidine TAB* [Pepcid 20 MG TAB*] 20 mg PO BID #10 tab Loperamide CAP* [Imodium CAP*] 2 mg PO Q4H PRN #20 cap PRN Reason: Diarrhea Patient Education Materials: Gastroenteritis (ED) Referrals: Rosa Schroeder MD [Primary Care Provider] - Additional Instructions: Stay well-hydrated. [place] diet as tolerated. Call your doctor for follow-up tomorrow. Return if worse, new symptoms or other concerns. - Billing Disposition and Condition Condition: IMPROVED Disposition: Home - Attestation Statements Document Initiated by Scribe: Yes Documenting Scribe: Sal Velarde MD Provider For Whom Noam is Documenting (Include Credential): Fabiano Velasquez MD Scribe Attestation: Sal Rosales MD, scribed for Fabiano Velasquez MD on 12/10/18 at 1830. Scribe Documentation Reviewed: Yes Provider Attestation: The documentation as recorded by the scribe, Sal Velarde MD accurately reflects the service I personally performed and the decisions made by me, Fabiano Velasquez MD Status of Scribe Document: Viewed
[2018-12-10 17:57] VITALS: BP 127/94
== END 2018-12-10 18:13 | disposition home or self-care (01) ==
LOC: ED 17:08
DX: R07.89 Other chest pain (principal); K52.9 Noninfective gastroenteritis and colitis, unspecified; F79 Unspecified intellectual disabilities; F41.9 Anxiety disorder, unspecified; F17.210 Nicotine dependence, cigarettes, uncomplicated; Z88.0 Allergy status to penicillin; Z88.2 Allergy status to sulfonamides; Z91.040 Latex allergy status
CPT/HCPCS: 74018; 93005; 99283; A9270-GY

== ENCOUNTER 2018-12-11 02:13 | Emergency (ER) | payer MEDICARE, MEDICAID ==
--- NOTE | 2018-12-11 02:34 | ED ---
Psychiatric Complaint - HPI Summary HPI Summary: This patient is a 53 year old F brought in by ambulance from [place] to ED with a chief complaint of SI since 2100 yesterday. She reports eating a spoonful of icy hot and cutting herself with a broken bess hook on her L forearm. The patient rates the pain 6/10 in severity. Symptoms aggravated by nothing. Symptoms alleviated by nothing. Patient reports nausea and auditory hallucinations. - History Of Current Complaint Chief Complaint: EDMentalHealth Time Seen by Provider: 12/11/18 02:24 Hx Obtained From: Patient Hx Last Menstrual Period: "last month" Onset/Duration: Sudden Onset, Lasting Hours, Still Present Timing: Constant Severity Initially: Moderate Severity Currently: Moderate - 6/10 Aggravating Factor(s): Nothing Alleviating Factor(s): Nothing Associated Signs And Symptoms: Positive: Hallucinating Related History: Positive For: Prior Psychiatric Issues Has Suicidal: Reports: Thoughts, Demonstrates Gesture Has Homicidal: Denies: Thoughts - Allergies/Home Medications Allergies/Adverse Reactions: Allergies Allergy/AdvReac Type Severity Reaction Status Date / Time ciprofloxacin Allergy Dizziness Verified 12/11/18 02:39 latex Allergy Rash Verified 12/11/18 02:39 lithium Allergy See Comment Verified 12/11/18 02:39 lurasidone [From Latuda] Allergy Altered Verified 12/11/18 02:39 Mental Status nalbuphine Allergy Unknown Verified 12/11/18 02:39 Reaction Details naldemedine Allergy Unknown Verified 12/11/18 02:39 Reaction Details Penicillins Allergy Rash Verified 12/11/18 02:39 perphenazine Allergy Unknown Verified 12/11/18 02:39 Reaction Details Sulfa (Sulfonamide Allergy Hives Verified 12/11/18 02:39 Antibiotics) tramadol Allergy Altered Verified 12/11/18 02:39 Mental Status ENVIRONMENTAL Allergy Mild SINUS Uncoded 12/11/18 02:39 PMH/Surg Hx/FS Hx/Imm Hx Endocrine/Hematology History: Reports: Hx Diabetes, Hx Thyroid Disease, Other Endocrine/Hematological Disorders - Chronic pancreatitis Denies: Hx Anticoagulant Therapy Cardiovascular History: Reports: Hx Hypertension, Other Cardiovascular Problems/ Disorders - HX OF PSVT 04/2008 Denies: Hx Pacemaker/ICD Respiratory History: Reports: Hx Asthma, Hx Seasonal Allergies, Hx Sleep Apnea - HX OF IN THE PAST Denies: Hx Chronic Bronchitis, Hx Chronic Obstructive Pulmonary Disease (COPD ), Hx Cystic Fibrosis, Hx Lung Cancer, Hx Pleural Effusion, Hx Pneumonia, Hx Pulmonary Edema, Hx Pulmonary Embolism, Other Respiratory Problems/Disorders GI History: Reports: Hx Gall Bladder Disease, Hx Gastroesophageal Reflux Disease - ON MEDICATION FOR, Hx Gastrointestinal Bleed, Hx Irritable Bowel, Other GI Disorders - HX OF pancreatitis- STATES LAST ABOUT 2 WEEKS AGO- STATES SLIGHT CASE Denies: Hx Ulcer History: Reports: Other Problems/Disorders - urinary incontinence Denies: Hx Dialysis, Hx Renal Disease Musculoskeletal History: Reports: Hx Arthritis, Hx Back Problems, Other Musculoskeletal History - GEN MUSCULOSKELETAL PAIN Denies: Hx Rheumatoid Arthritis, Hx Bursitis, Hx Congenital Bone Abnormalities, Hx Fibromyalgia, Hx Gout, Hx Orthopedic Injury, Hx Osteoporosis, Hx Scoliosis, Hx Tendonitis Sensory History: Reports: Hx Contacts or Glasses, Hx Vision Problem Denies: Hx Cataracts, Hx Eye Injury, Hx Eye Prosthesis, Hx Glaucoma, Hx Macular Degeneration, Hx Hearing Aid, Other Sensory Impairments Opthamlomology History: Reports: Hx Contacts or Glasses, Hx Vision Problem Denies: Hx Cataracts, Hx Eye Injury, Hx Eye Prosthesis, Hx Glaucoma, Hx Macular Degeneration, Other Sensory Impairments Neurological History: Reports: Hx Developmental Delay - intellectual disability , Hx Seizures - STATES WITH ALLERGIC REACTION TO TRAMADOL Denies: Hx Dementia, Hx Headaches, Other Neuro Impairments/Disorders Psychiatric History: Reports: Hx Anxiety, Hx Depression, Hx Post Traumatic Stress Disorder, Hx Inpatient Treatment, Hx Community Mental Health Tx, Hx Bipolar Disorder - pt manic, Hx Suicide Attempt, Hx of Violent Episodes Against Others, Other Psychiatric Issues/Disorders - PSYCHOSIS NOS, HX OF PTSD, SCHIZOAFFECTIVE DISORDER, BORDERLINE PERSONALITY Denies: Hx Attention Deficit Hyperactivity Disorder, Hx Eating Disorder, Hx Panic Disorder, Hx Schizophrenia, Hx Substance Abuse - Cancer History Cancer Type, Location and Year: None reported - Surgical History Surgery Procedure, Year, and Place: 2011-CATARACT EXTRACTION. GALLBLADDER REMOVED Hx Anesthesia Reactions: No - Immunization History Date of Tetanus Vaccine: unk Date of Influenza Vaccine: fall 2017 Infectious Disease History: No Infectious Disease History: Denies: Hx Clostridium Difficile, Hx Hepatitis, Hx Human Immunodeficiency Virus (HIV), Hx of Known/Suspected MRSA, Hx Shingles, Hx Tuberculosis, Hx Known/ Suspected VRE, Hx Known/Suspected VRSA, History Other Infectious Disease, Traveled Outside the [place] in Last 30 Days - Family History Known Family History: Positive: Other - Anxiety and depression, [place] - father Negative: Cardiac Disease, Hypertension, Diabetes Family History: Depression and anxiety - Social History Alcohol Use: None Hx Substance Use: Yes Substance Use Type: Reports: None Hx Tobacco Use: Yes Smoking Status (MU): Current Every Day Smoker Type: Cigarettes Amount Used/How Often: 1/2 PPD FOR LAST 30 DAYS, NO OTHER TOBACCO Length of Time of Smoking/Using Tobacco: since she was "young" Have You Smoked in the Last Year: Yes - Patient has smoked within the last 30 days Review of Systems Negative: Fever Positive: Other - superficial laceration on L forearm Psychological: Other - SI, reports eating a spoonful of icy hot and cutting herself with a broken bess hook on her L forearm, auditory hallucinations All Other Systems Reviewed And Are Negative: Yes Physical Exam - Summary Physical Exam Summary: VITAL SIGNS: Reviewed. GENERAL: Patient is a well-developed and nourished FEMALE who is lying comfortable in the stretcher. Patient is not in any acute respiratory distress. HEAD AND FACE: No signs of trauma. No ecchymosis, hematomas or skull depressions. No sinus tenderness. EYES: PERRLA, EOMI x 2, No injected conjunctiva, no nystagmus. EARS: Hearing grossly intact. Ear canals and tympanic membranes are within normal limits. MOUTH: Oropharynx within normal limits. NECK: Supple, trachea is midline, no adenopathy, no JVD, no carotid bruit, no c- spine tenderness, neck with full ROM CHEST: Symmetric, no tenderness at palpation LUNGS: Clear to auscultation bilaterally. No wheezing or crackles. CVS: Regular rate and rhythm, S1 and S2 present, no murmurs or gallops appreciated. ABDOMEN: Soft, non-tender. No signs of distention. No rebound no guarding, and no masses palpated. Bowel sounds are normal. EXTREMITIES: FROM in all major joints, no edema, no cyanosis or clubbing. NEURO: Alert and oriented x 3. No acute neurological deficits. Speech is normal and follows commands. SKIN: Dry and warm. Very small self-inflicted superficial laceration over the L forearm. Triage Information Reviewed: Yes Vital Signs On Initial Exam: Initial Vitals Temp Pulse Resp BP Pulse Ox 97.3 F 83 20 144/76 99 12/11/18 02:19 12/11/18 02:19 12/11/18 02:19 12/11/18 02:19 12/11/18 02:19 Vital Signs Reviewed: Yes Diagnostics - Vital Signs Vital Signs Temp Pulse Resp BP Pulse Ox 12/11/18 02:19 97.3 F 83 20 144/76 99 - Laboratory Lab Statement: Any lab studies that have been ordered have been reviewed, and results considered in the medical decision making process. Re-Evaluation - Re-Evaluation First Eval Re-Evaluation Time: 03:32 Comment: MHE done by Dr. Tierney. Course/Dx - Course Assessment/Plan: This patient is a 53 year old F brought in by ambulance to ED with a chief complaint of SI since 2099 yesterday. This patient is medically cleared for MHE at 0232. The patient has had multiple visits to the ED. She was brought in by EMS today because she is SI and has been hearing voices. MHE done by Dr. Tierney at 0332. The patient will be discharged with dx of borderline personality disorder. Patient understands and agrees with this plan. - Differential Dx/Clinical Impression Differential Diagnosis/HQI/PQRI: Positive: Other - borderline personality disorder Provider Diagnosis: Borderline personality disorder Discharge - Sign-Out/Discharge Documenting (check all that apply): Patient Departure - discharge Patient Received Moderate/Deep Sedation with Procedure: No - Discharge Plan Condition: Stable Disposition: HOME Patient Education Materials: Suicide Prevention (ED) Referrals: Rosa Schroeder MD [Primary Care Provider] - Additional Instructions: Per completion of a mental health evaluation, you are cleared for release and do not require inpatient psychiatric hospitalization at this time. Please go to nearest emergency room or call 911 if safety concerns arise or condition worsens. Continue with services at [address] [address] Walk-in hours are Tuesday - Tuesday, 9am - 2: 30pm or call for appointment Important Phone Numbers: [facility]........... [phone] Suicide Prevention and Crisis Services........................ [phone] National Suicide Prevention Lifeline............................ [phone] (4327) [facility]....................... [phone] Alcoholics Anonymous............................................... [phone] [facility].............. [phone] [facility] Police.............................................. [phone] - Attestation Statements Document Initiated by Scribe: Yes Documenting Scribe: Corey Pradhan Provider For Whom Scribe is Documenting (Include Credential): Sendy Mcdowell MD Scribe Attestation: ICorey, scribed for Sendy Mcdowell MD on 12/11/18 at 0332. Status of Scribe Document: Ready
[2018-12-11 04:17] VITALS: BP 123/76
== END 2018-12-11 04:16 | disposition home or self-care (01) ==
LOC: ED 02:13
DX: F60.3 Borderline personality disorder (principal); E11.9 Type 2 diabetes mellitus without complications; I10 Essential (primary) hypertension; F17.210 Nicotine dependence, cigarettes, uncomplicated; Z88.0 Allergy status to penicillin; Z88.2 Allergy status to sulfonamides; Z88.8 Allergy status to other drugs, medicaments and biological substances; Z88.1 Allergy status to other antibiotic agents; Z91.040 Latex allergy status
CPT/HCPCS: 99284

== ENCOUNTER 2018-12-12 18:01 | Emergency (ER) | payer MEDICARE, MEDICAID ==
[2018-12-12 18:23] VITALS: BP 141/86
--- NOTE | 2018-12-12 19:18 | UC ---
Hand/Wrist HPI - HPI Summary HPI Summary: 53-year-old female presents with complaints of right hand pain. States she became angry yesterday and punched a wall 4 times. Complains of pain in the ulnar right hand with bruising and swelling. Denies any numbness or tingling. - History Of Current Complaint Chief Complaint: UCUpperExtremity Stated Complaint: HAND INJURY Time Seen by Provider: 12/12/18 18:19 Hx Obtained From: Patient Hx Last Menstrual Period: "last month" Pain Intensity: 6 - Allergies/Home Medications Allergies/Adverse Reactions: Allergies Allergy/AdvReac Type Severity Reaction Status Date / Time ciprofloxacin Allergy Dizziness Verified 12/12/18 18:24 latex Allergy Rash Verified 12/12/18 18:24 lithium Allergy See Comment Verified 12/12/18 18:24 lurasidone [From Latuda] Allergy Altered Verified 12/12/18 18:24 Mental Status nalbuphine Allergy Unknown Verified 12/12/18 18:24 Reaction Details naldemedine Allergy Unknown Verified 12/12/18 18:24 Reaction Details Penicillins Allergy Rash Verified 12/12/18 18:24 perphenazine Allergy Unknown Verified 12/12/18 18:24 Reaction Details Sulfa (Sulfonamide Allergy Hives Verified 12/12/18 18:24 Antibiotics) tramadol Allergy Altered Verified 12/12/18 18:24 Mental Status ENVIRONMENTAL Allergy Mild SINUS Uncoded 12/11/18 02:39 PMH/Surg Hx/FS Hx/Imm Hx - Additional Past Medical History Additional PMH: Chronic back pain Endocrine History: Diabetes, Hypothyroidism Cardiovascular History: Hypertension GI/ History: Gastroesophageal Reflux Psychological History: Depression, Other - Mood affective disorder, self injurous behavior Other History Of: Negative For: Anticoagulant Therapy - Surgical History Surgical History: Yes Surgery Procedure, Year, and Place: 2011-CATARACT EXTRACTION. GALLBLADDER REMOVED - Family History Known Family History: Positive: Other - Anxiety and depression, [place] - father Negative: Cardiac Disease, Hypertension, Diabetes Family History: Depression and anxiety - Social History Occupation: Disabled Lives: Assisted Living Alcohol Use: None Substance Use Type: None Smoking Status (MU): Current Every Day Smoker Type: Cigarettes Amount Used/How Often: 1/2 PPD FOR LAST 30 DAYS, NO OTHER TOBACCO Length of Time of Smoking/Using Tobacco: since she was "young" Have You Smoked in the Last Year: Yes - Patient has smoked within the last 30 days When Did the Patient Quit Smoking/Using Tobacco: ATTEMPTING TO QUIT Household Exposure Type: Cigarettes - Immunization History Most Recent Influ[facility] Vacc[facility]: [facility] Most Recent Tetanus Shot: Unsure Most Recent Pneumonia Vaccination: 05/20/2017 Review of Systems All Other Systems Reviewed And Are Negative: Yes Constitutional: Positive: Negative Skin: Positive: Bruising Respiratory: Positive: Negative Cardiovascular: Positive: Negative Gastrointestinal: Positive: Negative Genitourinary: Positive: Negative Motor: Negative: Weakness Neurovascular: Negative: Decreased Sensation Musculoskeletal: Positive: Other: - See HPI Neurological: Positive: Negative Is Patient Immunocompromised?: No Physical Exam - Summary Physical Exam Summary: GENERAL APPEARANCE: Alert and cooperative, chronically ill appearing, obese female who appears to be in no acute distress. CARDIAC: Normal S1 and S2. No S3, S4 or murmurs. Rhythm is regular. There is no peripheral edema, cyanosis or pallor. Extremities are warm and well perfused. Capillary refill is less than 2 seconds. Peripheral pulses intact. LUNGS: Clear to auscultation without rales, rhonchi, wheezing or diminished breath sounds. ABDOMEN: Positive bowel sounds. Soft, nondistended, nontender. No guarding or rebound. No masses or hepatosplenomegally. MUSKULOSKELETAL: Normal muscular development. Normal gait. EXTREMITIES: Tenderness over the fourth and fifth metacarpals of the right hand with significant ecchymosis and mild swelling of the hand. No gross deformity. Full ROM to all fingers. Circulation and sensation were intact. SKIN: Skin normal color, texture and turgor with no lesions or eruptions. Triage Information Reviewed: Yes Vital Signs: Initial Vital Signs Temp 98.9 F 12/12/18 18:16 Pulse 73 12/12/18 18:16 Resp 16 12/12/18 18:16 BP 141/86 12/12/18 18:16 Pulse Ox 100 12/12/18 18:16 Vital Signs Reviewed: Yes Hand/Wrist Course/Dx - Course Course Of Treatment: 53-year-old female presents with complaints of right hand pain. States she became angry yesterday and punched a wall 4 times. Complains of pain in the ulnar right hand with bruising and swelling. Denies any numbness or tingling. Afebrile. Vital signs stable. Exam was remarkable for tenderness over the fourth and fifth metacarpals of the right hand with significant ecchymosis and mild swelling of the hand. No gross deformity. Full ROM to all fingers. Circulation and sensation were intact. Preliminary reading of X-ray was negative for fracture. Patient was placed in a cockup wrist splint by the RN. Circulation and sensation were normal pre-and post-application. Patient is currently taking Percocet for chronic back pain and she was encouraged continue use her medication as directed. Also recommend RICE. Patient is to follow-up with orthopedic surgery in 5 days for evaluation and treatment. Anticipatory guidance and warning symptoms were discussed with the patient. Verbalizes understanding and agrees with plan of care. - Differential Dx/Diagnosis Differential Diagnosis/HQI/PQRI: Contusion, Dislocation, Fracture Provider Diagnosis: Injury of right hand Discharge - Sign-Out/Discharge Documenting (check all that apply): Patient Departure All imaging exams completed and their final reports reviewed: No - Discharge Plan Condition: Stable Disposition: HOME Patient Education Materials: Hand Sprain (ED) Referrals: Rosa Schroeder MD [Primary Care Provider] - Conner Zambrano MD [Medical Doctor] - 5 Days (Call for an appointment.) Additional Instructions: The x-ray performed in the clinic today showed no evidence of a fracture. The x- ray will be reviewed by the radiologist tomorrow and we will contact you if they see anything that will change your plan of care. Rest the hand as much as possible. Wear the splint that was applied in the clinic. You may remove to shower but should wear at all other times. Apply ice to the affected area for 15-20 minutes at least 4 times a day to help with the pain and swelling. Elevate the hand to help reduce swelling. Continue using your pain medication as directed for pain. Follow up with orthopedic surgery in 5 days for further evaluation and treatment. Call for an appointment Seek immediate medical attention in the emergency room if you have severe pain not managed with pain medication, develop numbness or tingling in the hand or fingers, or have any worsening of symptoms. - Billing Disposition and Condition Condition: STABLE Disposition: Home
--- NOTE | 2018-12-13 15:53 | UC ---
- Progress Note Progress Note: Radiologist reading of right hand x-ray from December 12, 2018 is interpreted soft tissue swelling and no fracture. Provider interpretation from same date is no fracture and she describes soft tissue swelling on exam therefore there is no discrepancy. Course/Dx - Diagnoses Provider Diagnoses: Injury of right hand Discharge - Sign-Out/Discharge Documenting (check all that apply): Patient Departure All imaging exams completed and their final reports reviewed: Yes - Discharge Plan Condition: Stable Disposition: HOME Patient Education Materials: Hand Sprain (ED) Referrals: Rosa Schroeder MD [Primary Care Provider] - Conner Zambrano MD [Medical Doctor] - 5 Days (Call for an appointment.) Additional Instructions: The x-ray performed in the clinic today showed no evidence of a fracture. The x- ray will be reviewed by the radiologist tomorrow and we will contact you if they see anything that will change your plan of care. Rest the hand as much as possible. Wear the splint that was applied in the clinic. You may remove to shower but should wear at all other times. Apply ice to the affected area for 15-20 minutes at least 4 times a day to help with the pain and swelling. Elevate the hand to help reduce swelling. Continue using your pain medication as directed for pain. Follow up with orthopedic surgery in 5 days for further evaluation and treatment. Call for an appointment Seek immediate medical attention in the emergency room if you have severe pain not managed with pain medication, develop numbness or tingling in the hand or fingers, or have any worsening of symptoms. - Billing Disposition and Condition Condition: STABLE Disposition: Home
== END 2018-12-12 19:32 | disposition home or self-care (01) ==
LOC: UCEAST 18:01
DX: S69.91XA Unspecified injury of right wrist, hand and finger(s), initial encounter (principal); F17.210 Nicotine dependence, cigarettes, uncomplicated; G89.29 Other chronic pain; Z91.09 Other allergy status, other than to drugs and biological substances; Z88.2 Allergy status to sulfonamides; Z88.5 Allergy status to narcotic agent; Z91.040 Latex allergy status; Z88.1 Allergy status to other antibiotic agents; Z88.8 Allergy status to other drugs, medicaments and biological substances; X58.XXXA Exposure to other specified factors, initial encounter; Y92.9 Unspecified place or not applicable
CPT/HCPCS: 99213; G0463

== ENCOUNTER 2018-12-14 11:03 | Emergency (ER) | payer MEDICARE, MEDICAID ==
--- NOTE | 2018-12-14 11:20 | ED ---
GI/ HPI - HPI Summary HPI Summary: A 53 y/o F brought in by ambulance presents to ED with nausea and mild diarrhea onset a week ago. Associated sx: fatigue, mild dysuria, diffuse abd pain that feels different than her typical episodes of pancreatitis. Denies vomiting, SOB , CP, fever, cough, bloody stool, hematemesis, GERMAN, hematuria. Mother is currently a patient at [facility] with gastritis, and patient has been visiting her here. Pt is worried that she has caught a gastroenteritis from visiting her mother in the hospital here. Patient has a lengthy MH history, as well as pancreatitis, DM II and she did take her insulin this AM. Patient spoke to Dr. Bas, PCP, nurse today who recommended patient be evaluated. She sees Dr. Reynoso, GI and is scheduled for full scope upper and lower, on 01/19/19. She lives at [place]. On 11/21/18, patient swallowed 4 AAA and 1 AA batteries. She reports that all 5 batteries have passed, because she could feel them come out. She was seen [place] [facility] [place], 12/05, 509, 12/10, 12/11 and [place] [facility] [place] Multiple allergies discussed. Vitals en route, per EMS: BP: 118/82; Sat O2: 96%. Vitals at bedside: patient seen in H2 bed. - History of Current Complaint Chief Complaint: EDNauseaVomitDiarrh Time Seen by Provider: 12/14/18 11:17 Stated Complaint: NAUSEA PER EMS Hx Obtained From: Patient, EMS, Medical Records Hx Last Menstrual Period: "last month" Onset/Duration: Started Weeks Ago, Still Present Timing: Constant Severity: Moderate Current Severity: Moderate Pain Intensity: 5 - out of 10 Location of Pain: Diffuse Pain Characteristics: Aching Associated Signs and Symptoms: Positive: Nausea, Diarrhea, Dysuria - mild, Abdominal Pain, Other: - pos: fatigue. neg: SOB GERMAN.. Negative: Hematemesis, Vomiting, Blood w/Stool, Fever, Hematuria, Cough, Chest Pain Foreign Body: Caustic - batteries were swallowed recently Aggravating Factor(s): Nothing Alleviating Factor(s): Nothing - Additional Pertinent History Primary Care Physician: [email or web address] - Allergy/Home Medications Allergies/Adverse Reactions: Allergies Allergy/AdvReac Type Severity Reaction Status Date / Time ciprofloxacin Allergy Dizziness Verified 12/15/18 15:11 latex Allergy Rash Verified 12/15/18 15:11 lithium Allergy See Comment Verified 12/15/18 15:11 lurasidone [From Latuda] Allergy Altered Verified 12/15/18 15:11 Mental Status nalbuphine Allergy Unknown Verified 12/15/18 15:11 Reaction Details naldemedine Allergy Unknown Verified 12/15/18 15:11 Reaction Details Penicillins Allergy Rash Verified 12/15/18 15:11 perphenazine Allergy Unknown Verified 12/15/18 15:11 Reaction Details Sulfa (Sulfonamide Allergy Hives Verified 12/15/18 15:11 Antibiotics) tramadol Allergy Altered Verified 12/15/18 15:11 Mental Status ENVIRONMENTAL Allergy Mild SINUS Uncoded 12/15/18 15:11 Home Medications: Home Medications Al Hydrox/Mg Hydrox/Simet LIQ* [Maalox Plus*] 30 ml PO Q4H PRN 12/14/18 [ History Confirmed 12/14/18] Albuterol HFA INHALER* [Ventolin HFA Inhaler*] 1 puff INH Q4HR PRN 12/14/18 [ History Confirmed 12/14/18] Fluticasone Furoate [Arnuity Ellipta] 100 mcg INH DAILY 12/14/18 [History Confirmed 12/14/18] Levothyroxine TAB* [Synthroid TAB*] 400 mcg PO LOPEZ 12/14/18 [History Confirmed ] Lidocaine PATCH 5%* [Lidoderm 5% Patch*] 1 patch TRANSDERM DAILY 12/14/18 [ History Confirmed 12/14/18] Nicotine GUM* 2MG FRUIT FLAVOR [Nicotine GUM*] 2 mg PO Q2H PRN 12/14/18 [ History Confirmed 12/14/18] OLANzapine TAB* [Zyprexa 10 MG TAB*] 10 mg PO BEDTIME 12/14/18 [History Confirmed 12/14/18] OLANzapine TAB* [Zyprexa 5 MG TAB*] 5 mg PO QAM 12/14/18 [History Confirmed ] Polyethylene Glycol 3350* [Miralax*] 17 gm PO DAILY PRN 12/14/18 [History Confirmed 12/14/18] PMH/Surg Hx/FS Hx/Imm Hx Previously Healthy: No Endocrine/Hematology History: Reports: Hx Diabetes, Hx Thyroid Disease Denies: Hx Anticoagulant Therapy Cardiovascular History: Reports: Hx Hypertension, Hx Supraventricular Ventricular Tachycardia Denies: Hx Pacemaker/ICD Respiratory History: Reports: Hx Asthma, Hx Seasonal Allergies, Hx Sleep Apnea - HX OF IN THE PAST Denies: Hx Chronic Bronchitis, Hx Chronic Obstructive Pulmonary Disease (COPD ), Hx Cystic Fibrosis, Hx Lung Cancer, Hx Pleural Effusion, Hx Pneumonia, Hx Pulmonary Edema, Hx Pulmonary Embolism, Other Respiratory Problems/Disorders GI History: Reports: Hx Gall Bladder Disease, Hx Gastroesophageal Reflux Disease - ON MEDICATION FOR, Hx Gastrointestinal Bleed, Hx Irritable Bowel, Other GI Disorders - HX OF pancreatitis Denies: Hx Ulcer History: Reports: Other Problems/Disorders - urinary incontinence Denies: Hx Dialysis, Hx Renal Disease Musculoskeletal History: Reports: Hx Arthritis, Hx Back Problems, Other Musculoskeletal History - GEN MUSCULOSKELETAL PAIN Denies: Hx Rheumatoid Arthritis, Hx Bursitis, Hx Congenital Bone Abnormalities, Hx Fibromyalgia, Hx Gout, Hx Orthopedic Injury, Hx Osteoporosis, Hx Scoliosis, Hx Tendonitis Sensory History: Reports: Hx Contacts or Glasses, Hx Vision Problem Denies: Hx Cataracts, Hx Eye Injury, Hx Eye Prosthesis, Hx Glaucoma, Hx Macular Degeneration, Hx Hearing Aid, Other Sensory Impairments Opthamlomology History: Reports: Hx Contacts or Glasses, Hx Vision Problem Denies: Hx Cataracts, Hx Eye Injury, Hx Eye Prosthesis, Hx Glaucoma, Hx Macular Degeneration, Other Sensory Impairments Neurological History: Reports: Hx Developmental Delay - intellectual disability , Hx Seizures - STATES WITH ALLERGIC REACTION TO TRAMADOL Denies: Hx Dementia, Hx Headaches, Other Neuro Impairments/Disorders Psychiatric History: Reports: Hx Anxiety, Hx Depression, Hx Post Traumatic Stress Disorder, Hx Inpatient Treatment, Hx Community Mental Health Tx, Hx Bipolar Disorder, Hx Suicide Attempt, Hx of Violent Episodes Against Others, Other Psychiatric Issues/Disorders - PSYCHOSIS NOS, HX OF PTSD, SCHIZOAFFECTIVE DISORDER, BORDERLINE PERSONALITY Denies: Hx Attention Deficit Hyperactivity Disorder, Hx Eating Disorder, Hx Panic Disorder, Hx Schizophrenia, Hx Substance Abuse - Cancer History Cancer Type, Location and Year: None reported - Surgical History Surgery Procedure, Year, and Place: 2011-CATARACT EXTRACTION. GALLBLADDER REMOVED Hx Anesthesia Reactions: No - Immunization History Date of Tetanus Vaccine: unk Date of Influenza Vaccine: fall 2017 Infectious Disease History: No Infectious Disease History: Denies: Hx Clostridium Difficile, Hx Hepatitis, Hx Human Immunodeficiency Virus (HIV), Hx of Known/Suspected MRSA, Hx Shingles, Hx Tuberculosis, Hx Known/ Suspected VRE, Hx Known/Suspected VRSA, History Other Infectious Disease, Traveled Outside the [place] in Last 30 Days - Family History Known Family History: Positive: Other - Anxiety and depression, [place] - father Negative: Cardiac Disease, Hypertension, Diabetes - Social History Occupation: Disabled Lives: At [facility] [place] Alcohol Use: None Hx Substance Use: No Substance Use Type: Reports: None Hx Tobacco Use: Yes Smoking Status (MU): Former Smoker Type: Cigarettes Length of Time of Smoking/Using Tobacco: since she was "young" Have You Smoked in the Last Year: Yes Review of Systems Positive: Fatigue. Negative: Fever Negative: Chest Pain Negative: Shortness Of Breath, Cough Positive: Abdominal Pain, Diarrhea, Nausea. Negative: Vomiting, Other - neg: bloody stool, bloody emesis, Positive: dysuria - mild. Negative: hematuria Musculoskeletal: Negative Skin: Negative Negative: Headache Psychological: Normal All Other Systems Reviewed And Are Negative: Yes Physical Exam - Summary Physical Exam Summary: Appearance: Ill-appearing, moderate pain distress, obese hirsutism, lying quietly on stretcher Skin: Warm, color reflects adequate perfusion, dry Head: Normal Head/Face inspection, atraumatic Eyes: Conjunctiva clear ENT: Normal inspection Neck: Supple, no nodes, no JVD Respiratory: Lungs clear, normal breath sounds, no respiratory distress Cardio: RRR, No murmur, pulses normal, brisk capillary refill Abdomen: Soft, mild diffuse abd tenderness, no rebound, no guarding, no masses, non-distended, no CVAT Bowel sounds: Present Musculoskeletal: Strength Intact/ROM intact, no calf tenderness, no edema. R thumb spica. Psychological: good eye contact, slow speech, but understandable Neuro: Alert, muscle tone normal, no focal deficit Triage Information Reviewed: Yes Vital Signs On Initial Exam: Initial Vitals Temp Pulse Resp BP Pulse Ox 98.1 F 77 18 115/64 99 12/14/18 11:11 12/14/18 11:11 12/14/18 11:11 12/14/18 11:11 12/14/18 11:11 Vital Signs Reviewed: Yes Diagnostics - Vital Signs Vital Signs Temp Pulse Resp BP Pulse Ox 12/14/18 11:11 98.1 F 77 18 115/64 99 - Laboratory Result Diagrams: 12/14/18 11:50 12/14/18 11:50 Lab Statement: Any lab studies that have been ordered have been reviewed, and results considered in the medical decision making process. - Radiology CXR Radiology Interpretation Completed By: Radiologist Summary of Radiographic Findings: IMPRESSION: NO EVIDENCE FOR ACTIVE CARDIOPULMONARY DISEASE. ED provider has reviewed this report. ABD XR Radiology Interpretation Completed By: Radiologist Summary of Radiographic Findings: IMPRESSION: No free air or obstruction is noted. ED provider has reviewed this report. - EKG 1146 Cardiac Rate: NL - 69 bpm EKG Rhythm: Sinus Rhythm ST Segment: Non-Specific Ectopy: None EKG Comparison: No Significant Change - from EKG on 12/10/18 Summary of EKG Findings: An EKG at 1146 reveals SR nml SNEHA CT, nml QTc, and nml axis. No acute changes. EKG read and interpreted by ED physician. Re-Evaluation - Re-Evaluation 1 Re-Evaluation Time: 13:06 Change: Improved Comment: Discussing results with patient and plans for discharge. GIGU Course/Dx - Course Course Of Treatment: Patient is a 53 y/o F presenting with nausea/diarrhea, diffuse abd pain, mild dysuria and fatigue onset a week ago. She has been around people with dx: gastritis Pert PMHx: lengthy MH history, pancreatitis, DM II. On 11/21/18, patient swallowed 4 AAA and 1 AA batteries. She reports that all 5 batteries have passed. Seen again on [facility] on 12/04, 12/05, 509, , 12/11 and [place] [facility] [place] Prior Abd XR from 12/10/18 showed that the 4 batteries seen prior are not seen that date on XR. Allergies noted. Pt medications reviewed this visit. Nurses note reviewed. UA reviewed. CXR shows "NO EVIDENCE FOR ACTIVE CARDIOPULMONARY DISEASE." ABD XR shows "No free air or obstruction is noted." EKG at 1146 shows NSR at 69 bpm with nml [address], nml QTc , and nml axis. No acute changes. No changes from EKG on 12/10/18. Lab results show WBC: 13.8, APPT: 23.9, glucose: 52, magnesium: 1.6, alk phos: 111, lipase: < 10. Blood sugar after eating is 128. Will discharge patient home to follow- up with her PCP, Dr. Schroeder. - Diagnoses Differential Diagnoses - Female: Bowel Obstruction, Constipation, Esophagitis/ Gastritis, Gastritis, Gastroenteritis (Viral), Gastroenteritis (Bacterial), GI Foreign Body, Pancreatitis, Pyelonephritis, Sepsis Provider Diagnoses: Abdominal pain, Hypoglycemia, Hypomagnesemia, Intellectual disability Discharge - Sign-Out/Discharge Documenting (check all that apply): Patient Departure - D/C Patient Received Moderate/Deep Sedation with Procedure: No - Discharge Plan Condition: Stable Disposition: HOME Patient Education Materials: Hypoglycemia in a Person with Diabetes (ED), Acute Abdominal Pain (ED), Hypomagnesemia (ED) Referrals: Rosa Schroeder MD [Primary Care Provider] - 2 Days Additional Instructions: Your lab tests today did not show any serious cause for your abdominal pain. White blood cell count was a little elevated, but there was no definite source of infection. He may have a urinary tract infection but were waiting for the culture results to decide if he needed an antibiotic. We will notify you if you need an antibiotic in the culture results come back in about 2 days. Your rest of the labs did not show any problem with your pancreas or liver. Your blood sugar was low at 52 and we were able to feed U and he tolerated this without vomiting. We also gave you Zofran 4 mg as an oral dissolving tablet and this improved your nausea. We did a chest x-ray which was normal. And we also did an abdominal x-ray which showed that the batteries have definitely passed. He did not have any mental health concerns today. And your x-ray from urgent care on December 12 showed no fracture of your hand. Please return to the emergency department if you have any new or worsening symptoms. - Billing Disposition and Condition Condition: STABLE Disposition: Home - Attestation Statements Document Initiated by Noam: Yes Documenting Scribe: Rober Borja Provider For Whom Noam is Documenting (Include Credential): MD Alberto Boweribe Attestation: Rober Rosales scribed for Dr. Violeta Yusuf MD on 12/20/18 at 0356. Scribe Documentation Reviewed: Yes Provider Attestation: The documentation as recorded by the Rober roth accurately reflects the service I personally performed and the decisions made by me, Dr. Violeta Yusuf MD Status of Scribe Document: Viewed
[2018-12-14] MEDS ORDERED: Ondansetron INJ* 2 MG/ML VIAL IV ONE (11:35)
[2018-12-14 12:16] LABS: ABS Eosinophils 0.2 10^3/ul (0-0.6); ABS Lymphocytes 4.6 10^3/ul (1.0-4.8); ABS Monocytes 0.7 10^3/ul (0-0.8); ABS Neutrophils 8.4 10^3/ul (1.5-7.7); Eosinophil % 1.1 %; Hematocrit 41 % (35-47); Hemoglobin 13.1 g/dL (12.0-16.0); Lymphocyte % 33.2 %; Mean Corpuscular HGB Conc 32 g/dL (31-36); Mean Corpuscular Hemoglobin 29 pg (27-31); Mean Corpuscular Volume 92 fL (80-97); Mean Platelet Volume 8.9 fL (7.4-10.4); Platelet Count 238 10^3/uL (150-450); Red Cell Distribution Width 16 % (10.5-15); White Blood Count 13.8 10^3/uL (3.5-10.8)
[2018-12-14 12:27] LABS: Activated Partial Thrombo Time 23.9 seconds (26.0-36.3); INR 0.89 (0.82-1.09)
[2018-12-14 12:36] LABS: Urine Appearance Clear; Urine Bacteria 1+ (Absent); Urine Bilirubin Negative (Negative); Urine Blood Negative (Negative); Urine Color Yellow; Urine Glucose Negative (Negative); Urine Ketones Negative (Negative); Urine Nitrite Negative (Negative); Urine Protein Negative (Negative); Urine Red Blood Cell Absent (Absent); Urine Specific Gravity 1.004 (1.010-1.030); Urine Squamous Epithelial Cell Present (Absent); Urine Urobilinogen Negative (Negative); Urine White Blood Cell Trace(0-5/hpf) (Absent)
[2018-12-14 12:40] LABS: Troponin I 0.01 ng/mL (<0.04)
[2018-12-14 12:43] LABS: ALT 33 U/L (7-52); AST 34 U/L (13-39); Albumin 3.8 g/dL (3.2-5.2); Albumin/Globulin Ratio 1.2 (1-3); Alkaline Phosphatase 111 U/L (34-104); Amylase 33 U/L (29-103); Anion Gap 8 mmol/L (2-11); Blood Urea Nitrogen 9 mg/dL (6-24); C Reactive Protein 3.27 mg/L (<8.01); CO2 Carbon Dioxide 24 mmol/L (22-32); Calcium 9.4 mg/dL (8.6-10.3); Chloride 110 mmol/L (101-111); EGFR African American 88.6 (>60); EGFR Non-African American 73.2 (>60); Globulin 3.1 g/dL (2-4); Glucose 52 mg/dL (70-100); Magnesium 1.6 mg/dL (1.9-2.7); Sodium 142 mmol/L (135-145); Total Protein 6.9 g/dL (6.4-8.9)
[2018-12-14 12:44] LABS: HCG Pregnancy 2.75 mIU/mL
[2018-12-14] MEDS ORDERED: Magnesium Oxide TAB* 400 MG PO ONE (13:02)
[2018-12-14 14:12] VITALS: BP 116/63
== END 2018-12-14 14:11 | disposition home or self-care (01) ==
LOC: ED 11:03
DX: R10.9 Unspecified abdominal pain (principal); E11.649 Type 2 diabetes mellitus with hypoglycemia without coma; E83.42 Hypomagnesemia; R11.0 Nausea; R19.7 Diarrhea, unspecified; R30.0 Dysuria; I10 Essential (primary) hypertension; K21.9 Gastro-esophageal reflux disease without esophagitis; R53.83 Other fatigue; R07.89 Other chest pain; F17.210 Nicotine dependence, cigarettes, uncomplicated; Z88.0 Allergy status to penicillin; Z88.2 Allergy status to sulfonamides; Z86.79 Personal history of other diseases of the circulatory system
CPT/HCPCS: 36415; 71046; 74019; 80053; 81003; 81015; 82150; 83605; 83690; 83735; 84484; 84702; 85025; 85610; 85730; 86140; 87086; 93005; 96374; 99283; J2405

== ENCOUNTER → 2018-12-14 21:12 | Emergency (ER) | payer MEDICARE, MEDICAID ==
[2018-12-14 22:05] LABS: ABS Eosinophils 0.2 10^3/ul (0-0.6); ABS Lymphocytes 3.2 10^3/ul (1.0-4.8); ABS Monocytes 0.5 10^3/ul (0-0.8); ABS Neutrophils 5.7 10^3/ul (1.5-7.7); Eosinophil % 1.6 %; Hematocrit 37 % (35-47); Hemoglobin 11.9 g/dL (12.0-16.0); Lymphocyte % 32.9 %; Mean Corpuscular HGB Conc 32 g/dL (31-36); Mean Corpuscular Hemoglobin 30 pg (27-31); Mean Corpuscular Volume 91 fL (80-97); Mean Platelet Volume 9.2 fL (7.4-10.4); Nucleated Red Blood Cells % 0.1; Platelet Count 196 10^3/uL (150-450); Red Blood Count 4.05 10^6 /uL (3.70-4.87); Red Cell Distribution Width 15 % (10.5-15); White Blood Count 9.6 10^3/uL (3.5-10.8)
[2018-12-14 22:22] LABS: Albumin 3.4 g/dL (3.2-5.2); Albumin/Globulin Ratio 1.2 (1-3); BUN/Creatinine Ratio 11.2 (8-20); EGFR African American 72.1 (>60); EGFR Non-African American 59.6 (>60); Globulin 2.8 g/dL (2-4); Potassium 4.3 mmol/L (3.5-5.0); Total Bilirubin 0.2 mg/dL (0.2-1.0); Total Protein 6.2 g/dL (6.4-8.9)
[2018-12-14 22:24] LABS: Troponin I 0.01 ng/mL (<0.04)
--- NOTE | 2018-12-14 22:40 | ED ---
HPI Chest Pain - HPI Summary HPI Summary: Patient is a 53 y/o female with c/o intermittent sternal chest pain that radiates to her left arm x 1.5 weeks for which she was seen previously with a negative cardiac workup. She states her pain has increased prompting her to come into the ED. She states that her stress levels have increased recently. She denies shortness of breath, peripheral edema, cough, dizziness, headache, and changes in vision. She was seen in the ED earlier today for nausea and vomiting which she states have resolved. She received a chest x-ray at this time which was negative for acute cardiac and pulmonary disease. - History of Current Complaint Chief Complaint: EDChestPainROMI Time Seen by Provider: 12/14/18 21:46 Hx Last Menstrual Period: "last month" Pain Intensity: 0 - Additional Pertinent History Primary Care Physician: RICKY - Allergy/Home Medications Allergies/Adverse Reactions: Allergies Allergy/AdvReac Type Severity Reaction Status Date / Time ciprofloxacin Allergy Dizziness Verified 12/14/18 21:34 latex Allergy Rash Verified 12/14/18 21:34 lithium Allergy See Comment Verified 12/14/18 21:34 lurasidone [From Latuda] Allergy Altered Verified 12/14/18 21:34 Mental Status nalbuphine Allergy Unknown Verified 12/14/18 21:34 Reaction Details naldemedine Allergy Unknown Verified 12/14/18 21:34 Reaction Details Penicillins Allergy Rash Verified 12/14/18 21:34 perphenazine Allergy Unknown Verified 12/14/18 21:34 Reaction Details Sulfa (Sulfonamide Allergy Hives Verified 12/14/18 21:34 Antibiotics) tramadol Allergy Altered Verified 12/14/18 21:34 Mental Status ENVIRONMENTAL Allergy Mild SINUS Uncoded 12/14/18 21:34 PMH/Surg Hx/FS Hx/Imm Hx Endocrine/Hematology History: Reports: Hx Diabetes, Hx Thyroid Disease, Other Endocrine/Hematological Disorders - Chronic pancreatitis Denies: Hx Anticoagulant Therapy Cardiovascular History: Reports: Hx Hypertension, Other Cardiovascular Problems/ Disorders - HX OF PSVT 04/2008 Denies: Hx Pacemaker/ICD Respiratory History: Reports: Hx Asthma, Hx Seasonal Allergies, Hx Sleep Apnea - HX OF IN THE PAST Denies: Hx Chronic Bronchitis, Hx Chronic Obstructive Pulmonary Disease (COPD ), Hx Cystic Fibrosis, Hx Lung Cancer, Hx Pleural Effusion, Hx Pneumonia, Hx Pulmonary Edema, Hx Pulmonary Embolism, Other Respiratory Problems/Disorders GI History: Reports: Hx Gall Bladder Disease, Hx Gastroesophageal Reflux Disease - ON MEDICATION FOR, Hx Gastrointestinal Bleed, Hx Irritable Bowel, Other GI Disorders - HX OF pancreatitis- STATES LAST ABOUT 2 WEEKS AGO- STATES SLIGHT CASE Denies: Hx Ulcer History: Reports: Other Problems/Disorders - urinary incontinence Denies: Hx Dialysis, Hx Renal Disease Musculoskeletal History: Reports: Hx Arthritis, Hx Back Problems, Other Musculoskeletal History - GEN MUSCULOSKELETAL PAIN Denies: Hx Rheumatoid Arthritis, Hx Bursitis, Hx Congenital Bone Abnormalities, Hx Fibromyalgia, Hx Gout, Hx Orthopedic Injury, Hx Osteoporosis, Hx Scoliosis, Hx Tendonitis Sensory History: Reports: Hx Contacts or Glasses, Hx Vision Problem Denies: Hx Cataracts, Hx Eye Injury, Hx Eye Prosthesis, Hx Glaucoma, Hx Macular Degeneration, Hx Hearing Aid, Other Sensory Impairments Opthamlomology History: Reports: Hx Contacts or Glasses, Hx Vision Problem Denies: Hx Cataracts, Hx Eye Injury, Hx Eye Prosthesis, Hx Glaucoma, Hx Macular Degeneration, Other Sensory Impairments Neurological History: Reports: Hx Developmental Delay - intellectual disability , Hx Seizures - STATES WITH ALLERGIC REACTION TO TRAMADOL Denies: Hx Dementia, Hx Headaches, Other Neuro Impairments/Disorders Psychiatric History: Reports: Hx Anxiety, Hx Depression, Hx Post Traumatic Stress Disorder, Hx Inpatient Treatment, Hx Community Mental Health Tx, Hx Bipolar Disorder - pt manic, Hx Suicide Attempt, Hx of Violent Episodes Against Others, Other Psychiatric Issues/Disorders - PSYCHOSIS NOS, HX OF PTSD, SCHIZOAFFECTIVE DISORDER, BORDERLINE PERSONALITY Denies: Hx Attention Deficit Hyperactivity Disorder, Hx Eating Disorder, Hx Panic Disorder, Hx Schizophrenia, Hx Substance Abuse - Cancer History Cancer Type, Location and Year: None reported - Surgical History Surgery Procedure, Year, and Place: 2011-CATARACT EXTRACTION. GALLBLADDER REMOVED Hx Anesthesia Reactions: No - Immunization History Date of Tetanus Vaccine: unk Date of Influenza Vaccine: fall 2017 Infectious Disease History: No Infectious Disease History: Denies: Hx Clostridium Difficile, Hx Hepatitis, Hx Human Immunodeficiency Virus (HIV), Hx of Known/Suspected MRSA, Hx Shingles, Hx Tuberculosis, Hx Known/ Suspected VRE, Hx Known/Suspected VRSA, History Other Infectious Disease, Traveled Outside the [place] in Last 30 Days - Family History Known Family History: Positive: Other - Anxiety and depression, [place] - father Negative: Cardiac Disease, Hypertension, Diabetes Family History: Depression and anxiety - Social History Alcohol Use: None Hx Substance Use: No Substance Use Type: Reports: None Hx Tobacco Use: Yes Smoking Status (MU): Current Every Day Smoker Type: Cigarettes Amount Used/How Often: 1/2 PPD FOR LAST 30 DAYS, NO OTHER TOBACCO Length of Time of Smoking/Using Tobacco: since she was "young" Have You Smoked in the Last Year: Yes - Patient has smoked within the last 30 days Review of Systems Negative: Fever Positive: Chest Pain Negative: Shortness Of Breath, Cough Negative: Abdominal Pain, Vomiting, Nausea All Other Systems Reviewed And Are Negative: Yes Physical Exam Triage Information Reviewed: Yes Vital Signs On Initial Exam: Initial Vitals Pulse Pulse Ox 81 97 12/14/18 21:26 12/14/18 21:26 Vital Signs Reviewed: Yes Appearance: Positive: Well-Appearing Skin: Positive: Warm, Dry Head/Face: Positive: Normal Head/Face Inspection Eyes: Positive: Normal, Conjunctiva Clear ENT: Positive: Pharynx normal Respiratory/Lung Sounds: Positive: Clear to Auscultation, Breath Sounds Present , Other - reproducible chest pain Cardiovascular: Positive: Normal, RRR Abdomen Description: Positive: Nontender, Soft Bowel Sounds: Positive: Present Musculoskeletal: Positive: Normal Neurological: Positive: Normal Psychiatric: Positive: Normal Diagnostics - Vital Signs Vital Signs Temp Pulse Resp BP Pulse Ox 12/14/18 21:55 98 12/14/18 21:54 18 139/82 12/14/18 21:30 100.5 F 89 17 132/82 96 12/14/18 21:26 81 97 - Laboratory Lab Results: Lab Results 12/14/18 12/14/18 12/14/18 Range/Units 21:58 21:58 21:58 WBC 9.6 (3.5-10.8) 10^3/uL RBC 4.05 (3.70-4.87) 10^6 /uL Hgb 11.9 L (12.0-16.0) g/dL Hct 37 (35-47) % MCV 91 (80-97) fL MCH 30 (27-31) pg MCHC 32 (31-36) g/dL RDW 15 (10.5-15) % Plt Count 196 (150-450) 10^3/uL MPV 9.2 (7.4-10.4) fL Neut % (Auto) 59.8 % Lymph % (Auto) 32.9 % Robertson % (Auto) 5.2 % Eos % (Auto) 1.6 % Baso % (Auto) 0.5 % Absolute Neuts (auto) 5.7 (1.5-7.7) 10^3/ul Absolute Lymphs (auto) 3.2 (1.0-4.8) 10^3/ul Absolute Monos (auto) 0.5 (0-0.8) 10^3/ul Absolute Eos (auto) 0.2 (0-0.6) 10^3/ul Absolute Basos (auto) 0.0 (0-0.2) 10^3/ul Absolute Nucleated RBC 0.0 10^3/ul Nucleated RBC % 0.1 Sodium 137 (135-145) mmol/L Potassium 4.3 (3.5-5.0) mmol/L Chloride 105 (101-111) mmol/L Carbon Dioxide 27 (22-32) mmol/L Anion Gap 5 (2-11) mmol/L BUN 11 (6-24) mg/dL Creatinine 0.98 H (0.51-0.95) mg/dL Est GFR ( Amer) 72.1 (>60) Est GFR (Non-Af Amer) 59.6 (>60) BUN/Creatinine Ratio 11.2 (8-20) Glucose 356 H (70-100) mg/dL Lactic Acid 1.6 (0.5-2.0) mmol/L Calcium 9.0 (8.6-10.3) mg/dL Total Bilirubin 0.20 (0.2-1.0) mg/dL AST 34 (13-39) U/L ALT 32 (7-52) U/L Alkaline Phosphatase 110 H (34-104) U/L Troponin I 0.01 (<0.04) ng/mL B-Natriuretic Peptide (<=100) pg/mL Total Protein 6.2 L (6.4-8.9) g/dL Albumin 3.4 (3.2-5.2) g/dL Globulin 2.8 (2-4) g/dL Albumin/Globulin Ratio 1.2 (1-3) 12/14/18 Range/Units 21:58 WBC (3.5-10.8) 10^3/uL RBC (3.70-4.87) 10^6 /uL Hgb (12.0-16.0) g/dL Hct (35-47) % MCV (80-97) fL MCH (27-31) pg MCHC (31-36) g/dL RDW (10.5-15) % Plt Count (150-450) 10^3/uL MPV (7.4-10.4) fL Neut % (Auto) % Lymph % (Auto) % Robertson % (Auto) % Eos % (Auto) % Baso % (Auto) % Absolute Neuts (auto) (1.5-7.7) 10^3/ul Absolute Lymphs (auto) (1.0-4.8) 10^3/ul Absolute Monos (auto) (0-0.8) 10^3/ul Absolute Eos (auto) (0-0.6) 10^3/ul Absolute Basos (auto) (0-0.2) 10^3/ul Absolute Nucleated RBC 10^3/ul Nucleated RBC % Sodium (135-145) mmol/L Potassium (3.5-5.0) mmol/L Chloride (101-111) mmol/L Carbon Dioxide (22-32) mmol/L Anion Gap (2-11) mmol/L BUN (6-24) mg/dL Creatinine (0.51-0.95) mg/dL Est GFR ( Amer) (>60) Est GFR (Non-Af Amer) (>60) BUN/Creatinine Ratio (8-20) Glucose (70-100) mg/dL Lactic Acid (0.5-2.0) mmol/L Calcium (8.6-10.3) mg/dL Total Bilirubin (0.2-1.0) mg/dL AST (13-39) U/L ALT (7-52) U/L Alkaline Phosphatase (34-104) U/L Troponin I (<0.04) ng/mL B-Natriuretic Peptide 10 (<=100) pg/mL Total Protein (6.4-8.9) g/dL Albumin (3.2-5.2) g/dL Globulin (2-4) g/dL Albumin/Globulin Ratio (1-3) Result Diagrams: 12/14/18 21:58 12/14/18 21:58 Lab Statement: Any lab studies that have been ordered have been reviewed, and results considered in the medical decision making process. - EKG No standard instances Cardiac Rate: NL EKG Rhythm: Sinus Rhythm EKG Comparison: No Significant Change Summary of EKG Findings: sinus rhythm Re-Evaluation - Re-Evaluation First Eval Re-Evaluation Time: 01:16 Comment: chest pain still resolved Chest Pain Course/Dx - Course Course Of Treatment: 53 year old female presents with chest pain since Tuesday. She started after she ate. States it was a sharp pain. it radiated to her left shoulder. No shortness breath or palpitations. No diaphoresis. No nausea vomiting. she was seen earlier today for nausea vomiting said this has since resolved. She states she's had this in the past. Has no family cardiac history. Was given aspirin by EMS and is feeling better. Denies any current pain. On exam does have reproducible chest pain. Lungs clear to auscultation. EKG shows sinus rhythm. White blood count normal. Troponin 0.01 and 0.03. Had chest x-ray that was negative earlier today. has been seen here multiple times for this same compliant. discussed that should follow up with primary for outpatient stress test. patient understand and agrees with plan. - Chest Pain Differential Diagnosis/HQI/PQRI: Chest Wall, Lower Respiratory Infection, Pulmonary Embolism - Diagnoses Provider Diagnoses: Atypical chest pain Discharge - Sign-Out/Discharge Documenting (check all that apply): Patient Departure Patient Received Moderate/Deep Sedation with Procedure: No - Discharge Plan Condition: Good Disposition: HOME Patient Education Materials: Noncardiac Chest Pain (ED) Referrals: Rosa Schroeder MD [Primary Care Provider] - Additional Instructions: follow up with primary within 5 days Take tyenlol as needed for pain Return to ED if develop any new or worsening symptoms - Billing Disposition and Condition Condition: GOOD Disposition: Home
[2018-12-15 01:27] VITALS: BP 118/67
== END | disposition home or self-care (01) ==
LOC: ED 21:12
DX: R07.89 Other chest pain (principal); Z88.0 Allergy status to penicillin; Z88.2 Allergy status to sulfonamides; E11.9 Type 2 diabetes mellitus without complications; I10 Essential (primary) hypertension; K21.9 Gastro-esophageal reflux disease without esophagitis; Z86.79 Personal history of other diseases of the circulatory system; F17.210 Nicotine dependence, cigarettes, uncomplicated
CPT/HCPCS: 36415; 80053; 83605; 83880; 84484; 85025; 93005; 99283

== ENCOUNTER 2019-01-01 19:31 | Emergency (ER) | payer MEDICARE, MEDICAID ==
--- OUTSIDE RECORDS SUMMARY | 2019-01-01 20:18 | XMS REPORT | Continuity of Care Document ---
:1965 External Reference #:[id number] Author Name Angeles Hugo Care Team Providers Name Role Phone Rosa Schroeder M.D. Primary Care Physician Unavailable Payers Date Identification Numbers Payment Provider Subscriber Effective: 1991 Policy Number: [id number] Medicare Cecilio Alfaro PayID: [id number] [address] [place] [address] Policy Number: [id number] Medicaid Cecilio Alfaro Group Name: 1 1 [address] PayID: [id number] [place] [address] Problems Active Problems Provider Date Type 2 [...] severe mental illness Lives With Assisted living [facility] [place] since March 2018. Was at [facility] from October-Apr 2018 Occupation Unemployed Occupation Disabled Tobacco Use Start: Unknown Patient was a states she is cigarette smoker, quitting current status is unknown ETOH Use 07/26/2018 Denies alcohol use Recreational Drug Use Former Drug User Tobacco Use Start: Unknown Patient is a former End: Unknown smoker Tobacco Use Start: Unknown Patient is a current smoker, smokes every day Smoking Status Reviewed: 12/20/18 Patient is a current smoker, smokes every day Exercise Type/Frequency Exercises rarely Allergies, Adverse Reactions, Alerts Active Allergies Reaction Severity Comments Date Latex Urticaria 05/10/2017 Sulfa Antibiotics hives 05/10/2017 Penicillins Urticaria 05/10/2017 Nalbuphine 05/10/2017 Perphenazine 05/10/2017 Ciprofloxacin dizziness 05/10/2017 Tramadol altered mental status 05/10/2017 [place] 05/10/2017 Lurasidone Moderate 05/08/2018 Metformin Diarrhea 05/22/2018 Medications Active Medications SIG Qnty Indications Ordering Date Provider Duloxetine HCL 1 by mouth every 30caps Other Ordering 12/20/2018 30mg Caps day, total 110mg Provider DR Part daily Metoclopramide HCL one tablet every 90tabs Other Ordering 12/20/2018 10mg 6 hours, 30 Provider Tablets minutes before meals and one at bedtime as Needed For Nausea Quad Cane 1 cane for 1units M51.26 Rosa Schroeder MD 11/17/2018 [facility] ambulation 4 prong Cyclobenzaprine HCL take 1 tablet by 60tabs Rosa Schroeder MD 10/27/2018 10mg mouth two times Tablets daily as needed Levothyroxine Sodium 1 tablet by mouth 42tabs E03.9 Moreno Sandoval MD 2018 every day, except 200mcg Tablets 2 tablets on Tuesday (total 8 tablets/week) Polyethylene Glycol 17g twice daily 1020gm Lawrence Simental 10/19/2018 3350 PO, as Needed for Adelina Denson,FACP 3350NF Powder constipation. Hold If Any Diarrhea Walker Swivel Wheels/5 folding walker, 1units M51.26 Lawrence Simental 2018 Adjustment Holes/5" use as directed Adelina Denson,FACP 5" [facility] Fluconazole 1 tab by mouth x 2tabs [...] MD 09/04/2018 Lancets Extra Fine 33G day [facility] Arnuity Ellipta 1 puff inhaled 30units Rosa Schroeder MD 07/26/2018 every day 100mcg/Act Aerosol Depend Adjustable use four times a 120units Rosa Schroeder MD 07/03/2018 Underwear L/XL day [facility] Flonase Allergy Relief 2 sprays in each 9.900ml [facility] 06/23/2018 nostril twice a Adelina Marquez 50mcg/Act Suspension day Basaglar Kwikpen 70 units once 30ml Moreno Sandoval MD 05/19/2018 daily in the 100Unit/ML Solution morning Pen-Inject Fiasp Flextouch 26 units tid-ac. 30ml E11.65 Moreno Sandoval MD 05/19/2018 mdd 90 100Unit/ML Solution Pen-Inject Nicotrol 1 cartridges 168units Lawrence Simental 05/18/2018 10mg Inhaler every 2 hours as Adelina Denson,FACP needed Nystatin apply twice daily 90gm Rosa Schroeder MD 05/15/2018 [id number] until rash clears Powder Ventolin HFA 2 by mouth every 8gm Rosa Schroeder MD 05/15/2018 108(90Base) 4 hours as needed mcg/Act Aerosol Anatouch Ultra Blue test up to 4 150units Z79.4 Moreno Sandoval MD 09/09/2017 times daily Strips E11.65 E11.9 BD Pen Needle/Suzanna/Ultra use 4 times every 150units E11.9 Moreno Sandoval MD 08/24/2017 Fine/32G X 4mm day 32G X 4 mm Misc Depend Pant Extra Large use 4 x a day or 120units Rosa Schroeder MD 2016 Misc as needed Maalox Max 30 milliliters by Unknown [id number] mouth q4hr as Suspension needed indigestion Cetirizine HCL 1 by mouth every Unknown 10mg Tablets day Guaifenesin take 3 tabs PO bid Unknown 200mg Tablets prn congestion Ibu take one tablet by 90tabs Rosa Schroeder MD 600mg Tablets mouth t.i.d prn pain Asmanex Twisthaler 120 2 puff q.a.m. Unknown Metered Doses 220mcg/Inh Aerosol Hydroxyzine HCL 1 tablets by mouth Unknown 25mg Tablets tid as needed for anxiety Ondansetron dissolve one 30tabs Rosa Schroeder MD 4mg Tablets Dispers tablet orally every 8 hours as needed for nausea. Nicotine Gum 2 MG 1piece q 2 hours Unknown prn Percocet 1 - 2 tabs by 60tabs Dylan Lazar, 5-325mg Tablets mouth every 4 - 6 M.D. hours as needed for pain. Loperamide HCL take one capsule Unknown 2mg Capsules every four hours as needed Olanzapine one tab by mouth 60tabs Other Ordering 5mg Tablets in am, 2 by mouth Provider in pm Trazodone HCL 3 tab at bedtime 90tabs Other Ordering 100mg Tablets Provider Onetouch Ultra Mini check bs up to 1units E11.65 Lawrence Simental w/Device three times daily Adelina Denson,FACP Kit Atorvastatin Calcium take 1 tablet at 90tabs Rosa Schroeder MD 20mg bedtime Tablets Lamotrigine 1 by mouth twice a 180tabs Rosa Schroeder MD 100mg Tablets day Losartan Potassium 1 by mouth every 90tabs E11.65 Rosa Schroeder MD 50mg Tablets day Loratadine once a day for 90caps Rosa Schroeder MD 10mg Capsules allergies Duloxetine HCL 1 by mouth every 90caps Rosa Schroeder MD 20mg Caps DR day with 60mg tab Part Duloxetine HCL 1 by mouth every 90caps Rosa Schroeder MD 60mg Caps DR day with 20mg tab Part Vitamin D3 1 by mouth twice 180caps Rosa Schroeder MD 1000Unit Capsules daily Acetaminophen 2 tablets by mouth Unknown 325mg Tablets every 4 hours as needed for pain/fever History Medications Cyclobenzaprine HCL take one tablet by 60tabs Rosa Schroeder, 10/19/2018 - 10mg mouth three times MD 10/27/2018 Tablets a day as needed Gabapentin 2 capsules at hs Other 10/02/2018 - 400mg Capsules Ordering 12/20/2018 Provider Clindamycin HCL 1 by mouth three 21caps Other 09/26/2018 - 300mg times a day for 10 Ordering 10/05/2018 Capsules days Provider Gabapentin 2 tabs at bedtime 60caps Other 09/06/2018 - 100mg Capsules Ordering 10/02/2018 Provider Azithromycin 2 every day for 1 6tabs Lawrence Simental 07/26/2018 - 250mg Tablets day, then 1 every [place], 07/31/2018 day M.D.,FACP Levothyroxine Sodium take 175mcg daily 30tabs E03.9 Moreno Sandoval 2017 - 175mcg on an empty MD 10/26/2018 Tablets stomach Methylprednisolone take as instructed 21units Miguel 06/29/2018 - 4mg TBPK per medrol dose MD Jonah 07/21/2018 pack instructions Naproxen take 1 tablet 14tabs Lawrence Simental 06/29/2018 - 500mg Tablets twice daily with [place], 10/02/2018 food prn Adelina,FACP Mucinex DM one po bid 14tabs Rosa Schroeder 06/23/2018 - 30-600mg Tablets 07/03/2018 ER 12HR Ibuprofen 1 po three times a 30tabs Rosa Jacksone, 05/29/2018 - 600mg Tablets day as needed for 07/03/2018 pain, take with food Clindamycin Phosphate apply to affected 60gm R15.1 Rosa Alexandre, 2017 - 1% Gel area twice a day 07/03/2018 for 14 days Walker Auto Glides/5 use this to 1units Rosa Schroeder, 05/15/2018 - Adjustment Holes/-08/08" ambulate daily for 10/19/2018 unsteady gait -08/08" [facility] Shower Chair use when taking a 1units Rosa Alexandre, 05/15/2018 - shower for 07/03/2018 unsteady gait Metformin HCL ER take 1 tablet by 90tabs Rosa Schroeder 05/12/2018 - 500mg mouth once a day 05/22/2018 Tablets ER 24HR with dinner Januvia one by mouth daily 90tabs E11.65 Rosa Schroeder 05/08/2018 - 50mg Tablets 07/18/2018 Depend Adjustable use four times a 120units R15.1 Rosa Schroeder, 05/08/2018 - Underwear L/XL day 07/03/2018 [facility] Exercise Pt allowed to E11.65 Rosa Schroeder, 05/08/2018 - engage in exercise 07/03/2018 at facilities under direct supervision of staff Tresiba Flextouch 100 units at 15ml E11.65 [place] 10/13/2017 - 100Unit/ML bedtime Gerryika, 05/08/2018 Solution Pen-Inject MMarkel Losartan Potassium 1 by mouth once a 30tabs E11.65 [place] 10/13/2017 - 25mg day Pachikara, 05/08/2018 Tablets M.D. Hydrocodone-Acetaminophe 1 tab every 12h as 20tabs [place] 10/10/2017 - n needed Pachikara, 05/08/2018 5-325mg Tablets M.D. Tresiba Flextouch 60 units at 15ml E11.65 [place] 09/19/2017 - 100Unit/ML bedtime Pachikara, 10/13/2017 Solution Pen-Inject MMarkel Onetouch Ultra Mini test up to three 100units E11.9 Lawrence Simental 2017 - Strips times daily last [place], 09/09/2017 visit:08/17/17 Adelina,FACP Onetouch Ultra Mini check bs twice 100units [place] 08/31/2017 - Lancets daily Pachlaine, 05/08/2018 Adelina Onetouch Ultrasoft test blood 2-3 a 100units E11.9 Lawrence Simental 2017 - Lancets day or as needed [place], 09/04/2018 Misc Adelina,FACP Mucinex 1 po bid prn 20tabs Lawrence Simental 08/28/2017 - 600mg Tablets ER 12HR [place], 05/08/2018 Adelina,FACP Doxycycline Monohydrate 1 by mouth twice a 13caps Unknown 08/28/2017 - 100mg day x 7 days 09/04/2017 Capsules Tresiba Flextouch 30u SC in Am and 18ml Lawrence Simental 08/26/2017 - 200Unit/ML 70u SC in PM Chandler, 09/19/2017 Solution Pen-Inject Adelina,FACP Azithromycin 2 tabs by mouth on Unknown 08/26/2017 - 250mg Tablets day 1; 1 tab by 08/31/2017 mouth every day on days 2-5 Tramadol HCL 1 tab by mouth 30tabs Lawrence Simental 08/26/2017 - 50mg Tablets three times a day [place], 09/28/2017 Adelina,FACP Fluconazole one by mouth november 2tabs Lawrence Simental 08/22/2017 - 150mg Tablets repeat in 3 days [place], 05/08/2018 as needed Adelina,FACP Lancets 28G use with one touch 100units [place] 08/08/2017 - 28G Misc meter, check bs Pachika, 08/31/2017 daily MMarkel Onetouch test twice daily 100units [place] 08/08/2017 - Strips and as needed [facility], 08/31/2017 Adelina Janumet 1 by mouth twice a 60tabs E11.9 [place] 07/15/2017 - 50-500mg Tablets day Ayla, 05/08/2018 Adelina Glucocom Blood Glucose one touch 1units Erik 07/03/2017 - Monitoring System glucometer to Adelina Walls 08/31/2017 W/Device measure blood Kit sugar daily Clotrimazole apply twice daily 90gm B37.9 [place] 06/13/2017 - 1% Cream Ayla 05/08/2018 MJarredDJarred Nicotrol use 4-5 times 168units F17.21 [place] 06/13/2017 - 10mg Inhaler daily 0 Ayla 05/08/2018 M.DJarred Acetaminophen-Codeine #3 1 tab by mouth 20tabs [place] 05/26/2017 - every 4-6 hours as Ayla 05/08/2018 300-30mg Tablets needed for pain M.DJarred Famotidine 1 tab by mouth Unknown - 20mg Tablets twice a day 12/20/2018 Miralax 17 grams by mouth 500units Rosa Schroeder, - Powder every day as 10/19/2018 needed Lantus 66 units Unknown - 100Unit/ML Solution subcutaneous 09/05/2018 q.a.m. Lidoderm 1 apply to 60units Rosa Schroeder, - 5% Patches affected area 12 12/20/2018 hours on, 12 hours off Lantus Solostar 40 units twice 45ml Rosa [...] Atorvastatin Calcium take one tablet by 90tabs [place] - 40mg mouth every day Pachikara, 05/08/2018 Tablets Adelina Lantus Solostar 30 units SC in Am, 15ml Lawrence Simental - 100Unit/ML and 70 units SC a [place], 08/26/2017 Solution Pen-Inject hs Adelina,FACP Naproxen twice daily 60tabs [place] - 500mg [facility]ts [facility], 07/15/2017 Gabriel.Kamille Levothyroxine Sodium 1 tab daily am in 90tabs [place] - 200mcg the empty stomach Pachika, 05/08/2018 Tablets Gabriel.Kamille Levothyroxine Sodium 1 tab daily in the 90tabs [place] - 50mcg empty stomach Pachika, 05/08/2018 Tablets Adelina Latuda daily Unknown - 80mg Tablets 05/08/2018 [...] Pantoprazole Sodium take 1 tablet by 30tabs [place] - 40mg mouth once daily Pachika, 05/08/[address] Sahu Ondansetron every 6-8 hours as Home, - 8mg Tablets needed LUZ Newman 05/08/2018 Dispers Ibuprofen as needed Home, - 600mg Tablets LUZ Newman 05/08/2018 Medications Administered in Office Medication SIG Qnty Indications Ordering Provider Date Depomedrol 40MG Naveed Cuadra MD 10/11/2017 Injection Immunizations CPT Code Status Date Vaccine Lot # [id number] Given 05/01/2018 Influenza Virus Vaccine, Quadrivalent, Split, Preservative Free Vital Signs Date Vital Result Comment 12/22/2018 10:54am Height 67 inches 5'7" Weight 264.00 lb BP Systolic Sitting 140 mmHg BP Diastolic Sitting 80 mmHg Pain Level 10 BMI (Body Mass Index) 41.3 kg/m2 12/20/2018 3:17pm Height 67 inches 5'7" Weight 264.00 lb BP Systolic Sitting 130 mmHg BP Diastolic Sitting 80 mmHg Pain Level 8 BMI (Body Mass Index) 41.3 kg/m2 12/20/2018 8:05am Height 67 inches 5'7" Weight 264.00 lb Heart Rate 86 /min BP Systolic Sitting 145 mmHg BP Diastolic Sitting 87 mmHg Pain Level 8 O2 % BldC Oximetry 97 % BMI (Body Mass Index) 41.3 kg/m2 12/08/2018 9:20am Height 67 inches 5'7" Weight [...] Test Result H/L Range Note Laboratory test 12/15/2018 [facility] Point of Care 204 mg/dL High 70-100 1 finding 101 [facility] [place] [address] [phone] Laboratory test 12/15/2018 [facility] Point of Care 112 mg/dL High 70-100 2 finding 101 [facility] [place] [place] [address] [phone] Laboratory test 12/15/2018 [facility] Lactic Acid 1.3 mmol/L N 0.5-2.0 3 finding [address] [place] [address] [phone] Comp Metabolic 12/15/2018 [facility] Sodium 142 mmol/L N 135- 145 Panel [address] [place] [address] [phone] Potassium 4.0 mmol/L N 3.5-5.0 Chloride 107 mmol/L N 101-111 Co2 Carbon Dioxide 30 mmol/L N 22-32 Anion Gap 5 mmol/L N 2-11 Blood Urea Nitrogen 9 mg/dL N 6-24 Creatinine 0.96 mg/dL High 0.51-0.95 BUN/Creatinine Ratio 9.4 N 8-20 Calcium 9.7 mg/dL N 8.6-10.3 Total Protein 7.1 g/dL N 6.4-8.9 Albumin 3.9 g/dL N 3.2-5.2 Globulin 3.2 g/dL N 2-4 Albumin/Globulin Ratio 1.2 N 1-3 Total Bilirubin 0.20 mg/dL N 0.2-1.0 Alkaline Phosphatase 119 U/L High 34-104 Alt 32 U/L N 7-52 Ast 31 U/L N 13-39 Egfr Non- 61.0 >60 Egfr 73.8 >60 4 Glucose 46 mg/dL Low 70-100 5 Laboratory test 12/15/2018 [facility] Lipase < 10 U/L Low 11.0 -82.[address] [place] [address] [phone] CBC Auto Diff 12/15/2018 [facility] White Blood 12.0 High 3.5- 10.[address] Count 10^3/[place] [address] [phone] Red Blood Count 4.36 10^6/uL N 3.70-4.87 Hemoglobin 13.0 g/dL N 12.0-16.0 Hematocrit 39 % N 35-47 Mean Corpuscular Volume 90 fL N 80-97 Mean Corpuscular Hemoglobin 30 pg N 27-31 Mean Corpuscular HGB Conc 33 g/dL N 31-36 Red Cell Distribution Width 15 % N 10.5-15 Platelet Count 245 10^3/uL N 150-450 Mean Platelet Volume 8.8 fL N 7.4-10.4 Abs Neutrophils 6.6 10^3/uL N 1.5-7.7 Abs Lymphocytes 4.5 10^3/uL N 1.0-4.8 Abs Monocytes 0.7 10^3/uL N 0-0.8 Abs Eosinophils 0.1 10^3/uL N 0-0.6 Abs Basophils 0.1 10^3/uL N 0-0.2 Abs Nucleated RBC 0.0 10^3/uL Granulocyte % 54.7 % Lymphocyte % 37.5 % Monocyte % 6.2 % Eosinophil % 1.1 % Basophil % 0.5 % Nucleated Red Blood Cells % 0.1 Laboratory test 12/15/2018 [facility] Troponin-I 0.03 ng/mL < 0.[address] (TnI) [place] [address] [phone] Urine Culture And 12/14/2018 [facility] Urine Culture SEE RESULT [address] [place] [address] [phone] Laboratory test 12/14/2018 [facility] Lactic Acid 1.5 mmol/L N 0.5-2.[address] [place] [address] [phone] Urinalysis Profile 12/14/2018 [facility] Urine Color Yellow [address] [place] [address] [phone] Urine Appearance Clear Urine Specific [place] 1.004 Low 1.010-1.030 Urine pH 6.0 N 5-9 Urine Urobilinogen Negative Negative Urine Ketones Negative Negative Urine Protein Negative Negative Urine Leukocytes 1+ Abnormal Negative Urine Blood Negative Negative Urine Nitrite Negative Negative Urine Bilirubin Negative Negative Urine Glucose Negative Negative Urine White Blood Cell Trace(0-5/hpf) Absent Urine Red Blood Cell Absent Absent Urine Bacteria 1+ Abnormal Absent Urine Squamous Epithelial Cell Present Abnormal Absent Laboratory test 12/14/2018 [facility] Magnesium 1.6 mg/dL Low 1.9-2.[address] [place] [address] [phone] Amylase 33 U/L N 29-103 Lipase < 10 U/L Low 11.0-82.0 C Reactive Protein 3.27 mg/L N <8.01 HCG 2.75 mIU/mL 9 Comp Metabolic Panel 12/14/2018 [facility] Sodium 142 mmol/L N 135-145 [address] [place] [address] [phone] Potassium 4.0 mmol/L N 3.5-5.0 Chloride 110 mmol/L N 101-111 Co2 Carbon Dioxide 24 mmol/L N 22-32 Anion Gap 8 mmol/L N 2-11 Glucose 52 mg/dL Low 70-100 Blood Urea Nitrogen 9 mg/dL N 6-24 Creatinine 0.82 mg/dL N 0.51-0.95 BUN/Creatinine Ratio 11.0 N 8-20 Calcium 9.4 mg/dL N 8.6-10.3 Total Protein 6.9 g/dL N 6.4-8.9 Albumin 3.8 g/dL N 3.2-5.2 Globulin 3.1 g/dL N 2-4 Albumin/Globulin Ratio 1.2 N 1-3 Total Bilirubin 0.20 mg/dL N 0.2-1.0 Alkaline Phosphatase 111 U/L High 34-104 Alt 33 U/L N 7-52 Ast 34 U/L N 13-39 Egfr Non- 73.2 >60 Egfr 88.6 >60 10 Laboratory test 12/14/2018 [facility] Partial 23.9 seconds Low 26.0-36.[address] [place] [address] PTT [phone] Troponin-I (TnI) 0.01 ng/mL <0.04 11 Inr/Protime 12/14/2018 [facility] Inr 0.89 N 0.82-1.[address] [place] [address] [phone] CBC Auto Diff 12/14/2018 [facility] White Blood 13.8 High 3.5- 10.[address] Count 10^3/[place] [address] [phone] Red Blood Count 4.50 10^6/uL N 3.70-4.87 Hemoglobin 13.1 g/dL N 12.0-16.0 Hematocrit 41 % N 35-47 Mean Corpuscular Volume 92 fL N 80-97 Mean Corpuscular Hemoglobin 29 pg N 27-31 Mean Corpuscular HGB Conc 32 g/dL N 31-36 Red Cell Distribution Width 16 % High 10.5-15 Platelet Count 238 10^3/uL N 150-450 Mean Platelet Volume 8.9 fL N 7.4-10.4 Abs Neutrophils 8.4 10^3/uL High 1.5-7.7 Abs Lymphocytes 4.6 10^3/uL N 1.0-4.8 Abs Monocytes 0.7 10^3/uL N 0-0.8 Abs Eosinophils 0.2 10^3/uL N 0-0.6 Abs Basophils 0.0 10^3/uL N 0-0.2 Abs Nucleated RBC 0.0 10^3/uL Granulocyte % 60.4 % Lymphocyte % 33.2 % Monocyte % 5.0 % Eosinophil % 1.1 % Basophil % 0.3 % Nucleated Red Blood Cells % 0.0 Laboratory test 12/14/2018 [facility] Point of Care 128 mg/dL High 70-100 13 finding [address] [place] [address] [phone] Laboratory test 12/14/2018 [facility] Troponin-I 0.01 ng/mL < 0.04 14 finding 101 (TnI) [place] [address] [phone] B-Type Natriuretic Peptide BNP 10 pg/mL <=100 Comp Metabolic Panel 12/14/2018 [facility] Sodium 137 mmol/L N 135-[address] [place] [address] [phone] Potassium 4.3 mmol/L N 3.5-5.0 Chloride 105 mmol/L N 101-111 Co2 Carbon Dioxide 27 mmol/L N 22-32 Anion Gap 5 mmol/L N 2-11 Glucose 356 mg/dL High 70-100 Blood Urea Nitrogen 11 mg/dL N 6-24 Creatinine 0.98 mg/dL High 0.51-0.95 BUN/Creatinine Ratio 11.2 N 8-20 Calcium 9.0 mg/dL N 8.6-10.3 Total Protein 6.2 g/dL Low 6.4-8.9 Albumin 3.4 g/dL N 3.2-5.2 Globulin 2.8 g/dL N 2-4 Albumin/Globulin Ratio 1.2 N 1-3 Total Bilirubin 0.20 mg/dL N 0.2-1.0 Alkaline Phosphatase 110 U/L High 34-104 Alt 32 U/L N 7-52 Ast 34 U/L N 13-39 Egfr Non- 59.6 >60 Egfr 72.1 >60 15 Laboratory test 12/14/2018 [facility] Lactic Acid 1.6 mmol/L N 0.5-2.[address] [place] [address] [phone] CBC Auto Diff 12/14/2018 [facility] White Blood 9.6 10^3/uL N 3.5-10.8 [address] [place] [address] [phone] Red Blood Count 4.05 10^6/uL N 3.70-4.87 Hemoglobin 11.9 g/dL Low 12.0-16.0 Hematocrit 37 % N 35-47 Mean Corpuscular Volume 91 fL N 80-97 Mean Corpuscular Hemoglobin 30 pg N 27-31 Mean Corpuscular HGB Conc 32 g/dL N 31-36 Red Cell Distribution Width 15 % N 10.5-15 Platelet Count 196 10^3/uL N 150-450 Mean Platelet Volume 9.2 fL N 7.4-10.4 Abs Neutrophils 5.7 10^3/uL N 1.5-7.7 Abs Lymphocytes 3.2 10^3/uL N 1.0-4.8 Abs Monocytes 0.5 10^3/uL N 0-0.8 Abs Eosinophils 0.2 10^3/uL N 0-0.6 Abs Basophils 0.0 10^3/uL N 0-0.2 Abs Nucleated RBC 0.0 10^3/uL Granulocyte % 59.8 % Lymphocyte % 32.9 % Monocyte % 5.2 % Eosinophil % 1.6 % Basophil % 0.5 % Nucleated Red Blood Cells % 0.1 CBC Auto Diff 12/09/2018 [facility] White Blood 9.7 10^3/uL N 3.5-10.[address] [place] [address] [phone] Red Blood Count 4.43 10^6/uL N 3.70-4.87 Hemoglobin 13.3 g/dL N 12.0-16.0 Hematocrit 41 % N 35-47 Mean Corpuscular Volume 92 fL N 80-97 Mean Corpuscular Hemoglobin 30 pg N 27-31 Mean Corpuscular HGB Conc 33 g/dL N 31-36 Red Cell Distribution Width 16 % High 10.5-15 Platelet Count 196 10^3/uL N 150-450 Mean Platelet Volume 9.0 fL N 7.4-10.4 Abs Neutrophils 6.5 10^3/uL N 1.5-7.7 Abs Lymphocytes 2.6 10^3/uL N 1.0-4.8 Abs Monocytes 0.5 10^3/uL N 0-0.8 Abs Eosinophils 0.1 10^3/uL N 0-0.6 Abs Basophils 0.0 10^3/uL N 0-0.2 Abs Nucleated RBC 0.0 10^3/uL Granulocyte % 67.1 % Lymphocyte % 26.6 % Monocyte % 4.9 % Eosinophil % 1.0 % Basophil % 0.4 % Nucleated Red Blood Cells % 0.1 Comp Metabolic Panel 12/09/2018 [facility] Sodium 139 mmol/L N 135-145 [address] [place] [address] [phone] Chloride 106 mmol/L N 101-111 Co2 Carbon Dioxide 26 mmol/L N 22-32 Glucose 244 mg/dL High 70-100 Blood Urea Nitrogen 21 mg/dL N 6-24 Creatinine 0.95 mg/dL N 0.51-0.95 BUN/Creatinine Ratio 22.1 High 8-20 Calcium 8.9 mg/dL N 8.6-10.3 Total Protein 7.1 g/dL N 6.4-8.9 Albumin 3.7 g/dL N 3.2-5.2 Globulin 3.4 g/dL N 2-4 Albumin/Globulin Ratio 1.1 N 1-3 Total Bilirubin 0.30 mg/dL N 0.2-1.0 Alkaline Phosphatase 123 U/L High 34-104 Alt 46 U/L N 7-52 Egfr Non- 61.8 >60 Egfr 74.7 >60 17 Potassium 4.9 mmol/L N 3.5-5.0 Anion Gap 7 mmol/L N 2-11 Ast 51 U/L High 13-39 Laboratory test finding 12/09/2018 [facility] Amylase 23 U/L Low 29-103 [address] [place] [address] [phone] Lipase < 10 U/L Low 11.0-82.0 Laboratory test 12/05/2018 [facility] Acetaminophen < 15 g/mL 18 finding [address] [place] [address] [phone] Alcohol < 10 mg/dL N <10 Salicylate < 2.50 mg/dL <30 TSH (Thyroid Stim Horm) 8.38 mcIU/mL High 0.34-5.60 Comp Metabolic Panel 12/05/2018 [facility] Sodium 139 mmol/L N 135-145 [address] [place] [address] [phone] Potassium 3.9 mmol/L N 3.5-5.0 Chloride 107 [...] Egfr Non- 76.4 >60 Egfr 92.5 >60 19 CBC Auto 12/05/2018 [facility] White Blood 11.5 10^3/uL High 3.5-10.[address] [place] [address] [phone] Red Blood Count 4.65 10^6/uL N 3.70-4.87 [...] % Nucleated Red Blood Cells % 0.0 Laboratory test 11/21/2018 [facility] Point of Care 88 mg/dL N 70-100 [address] [place] [address] [phone] Laboratory test 11/21/2018 [facility] Point of Care 56 mg/dL Low 70-100 [address] [place] [address] [phone] Urinalysis 11/21/2018 [facility] Urine Color Yellow Profile [address] [place] [address] [phone] Urine Appearance Cloudy Urine Specific [place] 1.016 N 1.010-1.030 Urine pH 6.0 N [...] Present Abnormal Absent Urine Culture And 11/21/2018 [facility] Urine Culture SEE RESULT [address] [place] [address] [phone] Laboratory test 10/26/2018 [facility] Glucose Random 158 finding Hemoglobin A1c 8.0 High 5-7 CBC Auto Diff 08/22/2018 [facility] White Blood 10.7 10^3/uL N 3.5-10.8 [address] [place] [address] [phone] Red Blood Count 4.66 10^6/uL N 4.00-5.40 [...] Cells % 0 Comp Metabolic Panel 08/22/2018 [facility] Sodium 139 mmol/L N 135-[address] [place] [address] [phone] Potassium 4.7 mmol/L N 3.5-5.0 Chloride 104 [...] Egfr Non- 61.0 >60 Egfr 73.8 >60 23 Laboratory test 08/22/2018 [facility] Acetaminophen < 15 g/mL 24 finding [address] [place] [address] [phone] Alcohol < 10 mg/dL N <10 Salicylate < 2.50 mg/dL <30 TSH (Thyroid Stim Horm) 8.26 mcIU/mL High 0.34-5.60 Laboratory test 08/22/2018 [facility] Point of 202 mg/dL High 70-100 [address] [place] [address] [phone] Laboratory test 08/22/2018 [facility] Point of 321 mg/dL High 70-100 [address] [address] [phone] CBC Auto Diff 08/19/2018 [facility] White Blood 9.3 N 3.5- 10.[address] Count 10^3/[place] [address] [phone] Red Blood Count 4.42 10^6/uL N 4.00-5.40 [...] Cells % 0.1 Comp Metabolic Panel 08/19/2018 [facility] Sodium 139 mmol/L N 135-[address] [place] [address] [phone] Chloride 108 mmol/L N 101-111 Co2 Carbon [...] Egfr Non- 73.2 >60 Egfr 88.6 >60 27 Potassium 4.5 mmol/L N 3.5-5.0 Anion Gap 9 mmol/L N 2-11 Ast 47 U/L High 13-39 Laboratory test 08/19/2018 [facility] HCG 2.61 mIU/mL [address] [place] [address] [phone] Acetaminophen < 15 g/mL 29 Alcohol < 10 mg/dL N <10 Salicylate < 2.50 mg/dL <30 TSH (Thyroid Stim Horm) 7.94 mcIU/mL High 0.34-5.60 Laboratory 08/17/2018 [facility] Point of Care 145 mg/dL High 70-100 30 test finding [address] [place] [address] [phone] Laboratory 08/15/2018 [facility] Miscellaneous See 31, test finding [address] Test Comment 32 [place] [address] [phone] Comp 07/31/2018 [facility] Sodium 136 mmol/L N 135-[address] [place] [address] [phone] Potassium 4.9 mmol/L N 3.5-5.0 Chloride 104 [...] Egfr Non- 77.6 >60 Egfr 93.8 >60 34 Lipid Profile 07/31/2018 [facility] Triglycerides 113 mg/dL 35 (Trig/Chol/HDL) [address] [place] [address] [phone] Cholesterol 94 mg/dL 36 HDL Cholesterol 34.8 mg/dL 37 LDL Cholesterol 37 mg/dL 38 Laboratory test finding 07/31/2018 [facility] GGTP 50 U/L N 9- 64.[address] [place] [address] [phone] Hemoglobin A1c (Glyco HGB) 8.3 % High 4.0-5.6 40 Laboratory test 07/20/2018 [facility] Point of Care 78 mg/dL N 70-100 [address] [place] [address] [phone] CBC Auto Diff 07/20/2018 [facility] White Blood 8.8 10^3/uL N 3.5-10.[address] [place] [address] [phone] Red Blood Count 4.30 10^6/uL N 4.00-5.40 [...] Cells % 0 Basic Metabolic Panel 07/20/2018 [facility] Sodium 140 mmol/L N 135-[address] [place] [address] [phone] Potassium 4.0 mmol/L N 3.5-5.0 Chloride 108 mmol/L N 101-111 Co2 Carbon Dioxide 26 mmol/L N 22-32 Anion Gap 6 mmol/L N 2-11 Glucose 82 mg/dL N 70-100 Blood Urea Nitrogen 13 mg/dL N 6-24 Creatinine 0.71 mg/dL N 0.51-0.95 BUN/Creatinine Ratio 18.3 N 8-20 Calcium 9.3 mg/dL N 8.6-10.3 Egfr Non- 86.4 >60 Egfr 104.6 >60 42 Urine Culture And 07/10/2018 [facility] Urine SEE RESULT [address] [place] [address] [phone] CBC Auto Diff 07/10/2018 [facility] White Blood 14.1 High 3.5- [address] Count 10^3/uL 0.8 [place] [address] [phone] Red Blood Count 4.77 10^6/uL N 4.00-5.40 [...] Blood Cells % 0 Urinalysis Profile 07/10/2018 [facility] Urine Color Yellow [address] [place] [address] [phone] Urine Appearance Cloudy Urine Specific [place] 1.017 N 1.010-1.030 Urine pH 5.0 N [...] Present Abnormal Absent Comp Metabolic Panel 07/10/2018 [facility] Sodium 136 mmol/L N 135-[address] [place] [address] [phone] Potassium 4.6 mmol/L N 3.5-5.0 Chloride 102 [...] Egfr Non- 54.4 >60 Egfr 65.9 >60 44 Laboratory test 07/10/2018 [facility] Acetaminophen < 15 g/mL [address] [place] [address] [phone] Alcohol < 10 mg/dL N <10 Salicylate < 2.50 mg/dL <30 TSH (Thyroid Stim Horm) 9.45 mcIU/mL High 0.34-5.60 Urine Drug 07/10/2018 [facility] Amphetamine Ur None Detected None Detect SCR ED & [address] [place] [address] [phone] Barbiturates Urine Screen None Detected None Detect Benzodiazepine Urine Screen None Detected None Detect Urine Cannabinoids Screen None Detected None Detect Urine Cocaine Screen None Detected None Detect Urine Opiates Screen None Detected None Detect Urine Phencyclidine Screen None Detected None Detect 46 Laboratory 06/26/2018 [facility] Point of Care 143 mg/dL High 70-100 47 test finding [address] [place] [address] [phone] Laboratory 06/26/2018 [facility] Point of Care 72 mg/dL N 70- 100 48 test finding [address] Gl[place], [place] [id number] [phone] Urine Drug SCR 06/26/2018 [facility] Amphetamine Ur None None ED & Pain [address] [place] [address] [phone] Barbiturates Urine Screen None Detected None Detect Benzodiazepine Urine Screen None Detected None Detect Urine Cannabinoids Screen None Detected None Detect Urine Cocaine Screen None Detected None Detect Urine Opiates Screen None Detected None Detect Urine Phencyclidine Screen None Detected None Detect 49 CBC Auto 06/26/2018 [facility] White Blood 10.9 10^3/uL High 3.5-10.[address] [place] [address] [phone] Red Blood Count 4.42 10^6/uL N 4.00-5.40 [...] Cells % 0 Comp Metabolic Panel 06/26/2018 [facility] Sodium 137 mmol/L N 135-[address] [place] [address] [phone] Potassium 4.3 mmol/L N 3.5-5.0 Chloride 105 [...] Egfr Non- 79.0 >60 Egfr 95.6 >60 50 Laboratory test 06/26/2018 [facility] Acetaminophen < 15 g/mL [address] [place] [address] [phone] Alcohol < 10 mg/dL N <10 Salicylate < 2.50 mg/dL <30 Lactic Acid 0.9 mmol/L N 0.5-2.0 52 Urinalysis Profile 06/26/2018 [facility] Urine Color Straw [address] [place] [address] [phone] Urine Appearance Clear Urine Specific [place] 1.005 Low 1.010-1.030 Urine pH 6.0 N 5-9 Urine Urobilinogen Negative Negative Urine Ketones Negative Negative Urine Protein Negative Negative Urine Leukocytes Negative Negative Urine Blood Negative Negative Urine Nitrite Negative Negative Urine Bilirubin Negative Negative Urine Glucose Negative Negative Laboratory test 06/26/2018 [facility] Point of Care 98 mg/dL N 70-100 [address] [place] [address] [phone] CBC Auto Diff 05/18/2018 [facility] White Blood 10.8 N 3.5- 10.[address] Count 10^3/[place] [address] [phone] Red Blood Count 4.33 10^6/uL N 4.00-5.40 [...] Cells % 0.1 Comp Metabolic Panel 05/18/2018 [facility] Sodium 139 mmol/L N 135-[address] [place] [address] [phone] Potassium 4.5 mmol/L N 3.5-5.0 Chloride 107 [...] Egfr Non- 81.5 >60 Egfr 98.6 >60 54 Laboratory test 05/18/2018 [facility] Lipase < 10 U/L Low 11.0 -82.[address] [place] [address] [phone] Lactic Acid 1.1 mmol/L N 0.5-2.0 55 Laboratory test 05/15/2018 [facility] C Difficile PCR SEE RESULT [address] [place] [address] [phone] Laboratory test 05/11/2018 [facility] Glucose 342 mg/dL High 70-[address] Confirmatory 00 [place] [address] [phone] Laboratory test 05/11/2018 [facility] Point of Care 402 mg/dL High 70-1 [address] Glucose 00 [place] [address] [phone] Laboratory test 05/11/2018 [facility] Point of Care 426 mg/dL High 70-1 [address] Glucose 00 [place] [address] [phone] CBC Auto Diff 05/10/2018 [facility] White Blood Count 12.0 High 3.5- [address] 10^3/uL 10.8 [place] [address] [phone] Red Blood Count 4.39 10^6/uL N 4.00-5.40 [...] Cells % 0.1 Comp Metabolic Panel 05/10/2018 [facility] Sodium 141 mmol/L N 135-[address] [place] [address] [phone] Potassium 4.9 mmol/L N 3.5-5.0 Chloride 107 [...] Egfr Non- 74.5 >60 Egfr 90.2 >60 59 Laboratory test 05/10/2018 [facility] Lipase < 10 U/L Low 11.0 -82.[address] [place] [address] [phone] C Reactive Protein 6.43 mg/L N <8.01 Lactic Acid 1.2 mmol/L N 0.5-2.0 60 Urine Microalbumin 05/08/2018 [facility] Ur Microalbumin < 15.[address] (mg/L) [place] [address] [phone] Urine Creatinine 224.47 mg/dL Urine Microalbumin/Creatinine TNP <31 61 Laboratory test 05/08/2018 [facility] Hemoglobin A1c 9.7 High 5-7 finding Urinalysis Profile 11/02/2017 [facility] Urine Color Yellow [address] [place] [address] [phone] Urine Appearance Clear Urine Specific [place] 1.018 N 1.010-1.030 Urine pH 5.0 N 5-9 Urine Urobilinogen Negative Negative Urine Ketones Negative Negative Urine Protein Negative Negative Urine Leukocytes Negative Negative Urine Blood Negative Negative Urine Nitrite Negative Negative Urine Bilirubin Negative Negative Urine Glucose 1+(50 mg/dL) Abnormal Negative Urine Drug 11/02/2017 [facility] Amphetamine Ur None Detected None Detect SCR ED & [address] [facility] [place] [address] [phone] Barbiturates Urine Screen None Detected None Detect Benzodiazepine Urine Screen None Detected None Detect Urine Cannabinoids Screen None Detected None Detect Urine Cocaine Screen None Detected None Detect Urine Opiates Screen Presumptive Posi <SEE NOTE> Abnormal None Detect 62 Urine Phencyclidine Screen None Detected None Detect 63 Arterial Blood Gas 11/02/2017 [facility] PH Arterial 7.36 N 7.35-7.[address] [place] [address] [phone] Pco2 Arterial 50 mmHg High 35-45 Po2 Arterial 65 mmHg Low 80-100 O2 Saturation Arterial 91.1 % Low 95-98 Base Excess Arterial 2.1 High -2.0-2.0 64 Hco3 Arterial 26.4 mmol/L N 19-31 Laboratory test finding 11/02/2017 [facility] Ammonia 37 ?mol/L N 16-[address] [place] [address] [phone] Lactic Acid 1.0 mmol/L N 0.5-2.0 65 CBC Auto Diff 11/02/2017 [facility] White Blood 8.5 10^3/uL N 3.5-10.8 [facility] [place] [address] [phone] Red Blood Count 4.40 10^6/uL N 4.0-5.4 [...] Blood Cells % 0 Comp Metabolic 11/02/2017 [facility] Potassium 4.4 mmol/L N 3.5-5.0 Panel [address] [place] [address] [phone] Chloride 107 mmol/L N 101-111 Co2 Carbon [...] Egfr Non- 70.5 >60 Egfr 90.7 >60 66 Sodium 142 mmol/L N 139-145 Anion Gap 5 mmol/L N 2-11 Laboratory test 11/02/2017 [facility] Magnesium 1.9 mg/dL N 1.9-2.[address] [place] [address] [phone] Creatine Kinase(CK) 72 U/L N 10-223 Troponin-I (TnI) 0.03 ng/mL <0.04 Acetaminophen < 15 g/mL 67 Alcohol < 10 mg/dL N <10 Salicylate < 2.50 mg/dL <30 TSH (Thyroid Stim Horm) 1.79 mcIU/mL N 0.34-5.60 CBC Auto Diff 10/02/2017 [facility] White Blood 10.3 10^3/uL N 3.5-10.[address] [place] [address] [phone] Red Blood Count 4.29 10^6/uL N 4.0-5.4 [...] Cells % 0 Comp Metabolic Panel 10/02/2017 [facility] Sodium 136 mmol/L N 133-[address] [place] [address] [phone] Potassium 4.5 mmol/L N 3.5-5.0 Chloride 103 [...] Egfr Non- 70.5 >60 Egfr 90.7 >60 68 Laboratory test 10/02/2017 [facility] CRP High 3.53 mg/L [address] [place] [address] [phone] Laboratory test 09/28/2017 [facility] Hemoglobin A1c 9.1 High 5-7 finding Laboratory test 09/13/2017 [facility] Point of Care 179 mg/dL High 70-10 [address] Glucose 0 [place] [address] [phone] Laboratory test 09/13/2017 [facility] Point of Care 260 mg/dL High 70-10 [address] Glucose 0 [place] [address] [phone] Comp Metabolic 08/29/2017 [facility] Sodium 136 N 133-[address] mmol/L 45 [place] [address] [phone] Potassium 4.9 mmol/L N 3.5-5.0 Chloride 104 [...] Egfr Non- 47.4 >60 Egfr 60.9 >60 72 Laboratory test 08/29/2017 [facility] Lipase < 10 U/L Low 11.0 -82.[address] [place] [address] [phone] CRP High Sensitivity 1.79 mg/L 73 Troponin-I (TnI) 0.00 ng/mL <0.04 CBC Auto Diff 08/29/2017 [facility] White Blood 9.1 10^3/uL N 3.5-10.[address] [place] [address] [phone] Red Blood Count 4.06 10^6/uL N 4.0-5.4 [...] Blood Cells % 0 Laboratory test 08/29/2017 [facility] B-Type 21 pg/mL [address] [place] [address] Peptide BNP [phone] CBC Auto Diff 08/26/2017 [facility] White Blood Count 9.0 10^3/ uL N 3.5-[address] 0.8 [place] [address] [phone] Red Blood Count 4.42 10^6/uL N 4.0-5.4 [...] Blood Cells % 0 Laboratory test 08/26/2017 [facility] Troponin-I (TnI) 0.01 ng/ mL <0.04 finding [address] [place] [address] [phone] Comp Metabolic 08/26/2017 [facility] Sodium 139 mmol/L N 133- 145 Panel [address] [place] [address] [phone] Potassium 5.0 mmol/L N 3.5-5.0 Chloride 105 [...] Egfr Non- 62.8 >60 Egfr 80.7 >60 75 Inr/Protime 08/26/2017 [facility] Inr 0.82 N 0.77-1.[address] [place] [address] [phone] Laboratory test 08/26/2017 [facility] Partial 27.7 N 26.0- 36.3 finding [address] [facility] [place] [place] [address] Time PTT [phone] Laboratory test 08/25/2017 [facility] Point of 157 mg/dL High 70-100 76 finding 101 [facility] [place] [address] [phone] Urinalysis 08/25/2017 [facility] Urine Color Yellow Profile [address] [place] [address] [phone] Urine Appearance Clear Urine Specific [place] 1.010 N 1.010-1.030 Urine pH 5.0 N 5-9 Urine Urobilinogen Negative Negative Urine Ketones Negative Negative Urine Protein Negative Negative Urine Leukocytes Negative Negative Urine Blood Negative Negative Urine Nitrite Negative Negative Urine Bilirubin Negative Negative Urine Glucose 3+(>=500 mg/dL) Abnormal Negative Laboratory test 08/25/2017 [facility] Point of 289 mg/dL High 70-100 77 finding [address] [facility] [place] [place] [address] [phone] Venous Blood 08/25/2017 [facility] Venous Blood 7.48 High 7.33 -7.43 Gas [address] [facility] [place] [address] [phone] Venous Pco2 31 mmHg Low 41-51 Venous Po2 98 mmHg High 35-45 Venous O2 Saturation 95.3 % High 70-80 Venous Blood Base Excess 0.1 N 0-4 78 Venous Bicarbonate Hco3 25.0 mmol/L N 24-28 CBC Auto Diff 08/25/2017 [facility] White Blood 8.9 10^3/uL N 3.5-10.[address] [place] [address] [phone] Red Blood Count 4.33 10^6/uL N 4.0-5.4 [...] Cells % 0 Comp Metabolic Panel 08/25/2017 [facility] Sodium 134 mmol/L N 133-[address] [place] [address] [phone] Potassium 4.8 mmol/L N 3.5-5.0 Chloride 101 [...] Egfr Non- 68.6 >60 Egfr 88.3 >60 79 Laboratory test 08/25/2017 [facility] C Reactive 3.27 mg/L N < 5.00 [address] [place] [address] [phone] Laboratory test 08/23/2017 [facility] Point of Care 224 mg/dL High 70-100 [address] [place] [address] [phone] Laboratory test 08/22/2017 [facility] Glucose 417 mg/dL High 70-[address] [place] [address] [phone] Laboratory test 08/22/2017 [facility] Point of Care > 444 mg/dL High 70-100 [address] [place] [address] [phone] Urinalysis 08/22/2017 [facility] Urine Color Yellow Profile [address] [place] [address] [phone] Urine Appearance Cloudy Urine Specific [place] 1.023 N 1.010-1.030 Urine pH 6.0 N [...] Present Abnormal Absent Urine Culture And 08/22/2017 [facility] Urine Culture SEE RESULT [address] [place] [address] [phone] CBC Auto Diff 08/22/2017 [facility] White Blood 8.9 10^3/uL N 3.5-[address] Count 0.8 [place] [address] [phone] Red Blood Count 4.19 10^6/uL N 4.0-5.4 [...] Cells % 0.1 Venous Blood Gas 08/22/2017 [facility] Venous Blood pH 7.42 N 7.33-7.[address] [place] [address] [phone] Venous Pco2 49 mmHg N 41-51 Venous Po2 36 mmHg N 35-45 Venous O2 Saturation 78.1 % N 70-80 Venous Blood Base Excess 6.3 High 0-4 84 Venous Bicarbonate Hco3 29.4 mmol/L High 24-28 Inr/Protime 08/22/2017 [facility] Inr 0.91 N 0.77-1.[address] [place] [address] [phone] Laboratory test 08/22/2017 [facility] Lactic Acid 1.3 N 0.5- 2.0 85 finding 101 mmol/[place] [address] [phone] Comp Metabolic 08/22/2017 [facility] Sodium 131 Low 133-[address] mmol/[place] [address] [phone] Potassium 4.6 mmol/L N 3.5-5.0 Chloride 98 [...] Egfr Non- 65.2 >60 Egfr 83.8 >60 86 Glucose 543 mg/dL High 70-100 87 Laboratory test 08/22/2017 [facility] Magnesium 2.0 mg/dL N 1.9-2.[address] [place] [address] [phone] Creatine Kinase(CK) 121 U/L N 10-223 C Reactive Protein 4.62 mg/L N < 5.00 88 Troponin-I (TnI) 0.01 ng/mL <0.04 Laboratory test 08/18/2017 [facility] Point of 180 mg/dL High 70-100 [address] [place] [address] [phone] Laboratory test 08/17/2017 [facility] Point of 276 mg/dL High 70-100 [address] [place] [address] [phone] CBC Auto Diff 08/17/2017 [facility] White Blood 10.8 N 3.5- 10.[address] Count 10^3/[place] [address] [phone] Red Blood Count 4.74 10^6/uL N 4.0-5.4 [...] Red Blood Cells % 0 Laboratory test 08/17/2017 [facility] Acetaminophen < 15 g/mL 91 finding [address] [place] [address] [phone] Alcohol < 10 mg/dL N <10 Salicylate < 2.50 mg/dL <30 TSH (Thyroid Stim Horm) 2.76 mcIU/mL N 0.34-5.60 Lamotrigine (Lamictal) 4.2 g/mL 2.5 - 15.0 92 Comp Metabolic Panel 08/17/2017 [facility] Sodium 133 mmol/L N 133-145 [address] [place] [address] [phone] Potassium 4.9 mmol/L N 3.5-5.0 Chloride 101 [...] Egfr Non- 72.5 >60 Egfr 93.2 >60 93 Glucose 543 mg/dL High 70-100 94 Urinalysis Profile 08/17/2017 [facility] Urine Color Yellow [address] [place] [address] [phone] Urine Appearance Cloudy Urine Specific [place] 1.016 N 1.010-1.030 Urine pH 5.0 N 5-9 Urine Urobilinogen Negative Negative Urine Ketones Negative Negative Urine Protein Negative Negative Urine Leukocytes Negative Negative Urine Blood Negative Negative Urine Nitrite Negative Negative Urine Bilirubin Negative Negative Urine Glucose 3+(>=500 mg/dL) Abnormal Negative Venous Blood Gas 08/17/2017 [facility] Venous Blood pH 7.36 N 7.33-7.[address] [place] [address] [phone] Venous Pco2 48 mmHg N 41-51 Venous Po2 29 mmHg Low 35-45 Venous O2 Saturation 59.9 % Low 70-80 Venous Blood Base Excess 1.1 N 0-4 95 Venous Bicarbonate Hco3 24.9 mmol/L N 24-28 Laboratory 08/17/2017 [facility] Point of Care > 444 mg/dL High 70-100 96 test finding [address] [place] [address] [phone] Laboratory 08/17/2017 [facility] Point of Care > 444 mg/dL High 70-100 97 test finding [address] [place] [address] [phone] Urine Drug SCR 08/17/2017 [facility] Amphetamine Ur None None ED & Pain [address] [place] [address] [phone] Barbiturates Urine Screen None Detected None Detect Benzodiazepine Urine Screen None Detected None Detect Urine Cannabinoids Screen None Detected None Detect Urine Cocaine Screen None Detected None Detect Urine Opiates Screen None Detected None Detect Urine Phencyclidine Screen None Detected None Detect 98 Laboratory test 08/09/2017 [facility] Point of 266 mg/dL High 70-100 [address] [place] [address] [phone] CBC Auto Diff 08/08/2017 [facility] White Blood 11.9 High 3.5- 10.[address] Count 10^3/[place] [address] [phone] Red Blood Count 4.78 10^6/uL N 4.0-5.4 [...] 0-2 Nucleated Red Blood Cells % 0 Urinalysis Profile 08/08/2017 [facility] Urine Color Yellow [address] [place] [address] [phone] Urine Appearance Cloudy Urine Specific [place] 1.022 N 1.010-1.030 Urine pH 6.0 N 5-9 Urine Urobilinogen Negative Negative Urine Ketones Negative Negative Urine Protein Negative Negative Urine Leukocytes Negative Negative Urine Blood Negative Negative Urine Nitrite Negative Negative Urine Bilirubin Negative Negative Urine Glucose 3+(>=500 mg/dL) Abnormal Negative Urine Drug 08/08/2017 [facility] Amphetamine Ur None Detected None Detect SCR ED & [address] [place] [address] [phone] Barbiturates Urine Screen None Detected None Detect Benzodiazepine Urine Screen None Detected None Detect Urine Cannabinoids Screen None Detected None Detect Urine Cocaine Screen None Detected None Detect Urine Opiates Screen None Detected None Detect Urine Phencyclidine Screen None Detected None Detect 100 Laboratory test 08/08/2017 [facility] Acetaminophen < 15 g/mL [address] [place] [address] [phone] Alcohol < 10 mg/dL N <10 Salicylate < 2.50 mg/dL <30 TSH (Thyroid Stim Horm) 2.67 mcIU/mL N 0.34-5.60 Lamotrigine (Lamictal) 2.5 g/mL 2.5 - 15.0 102 Comp Metabolic Panel 08/08/2017 [facility] Sodium 136 mmol/L N 133-145 [address] [place] [address] [phone] Potassium 4.3 mmol/L N 3.5-5.0 Chloride 100 [...] Egfr Non- 74.5 >60 Egfr 95.9 >60 103 Laboratory test 08/04/2017 [facility] Point of 175 mg/dL High 70-100 104 finding 101 [facility] [place] [address] [phone] Laboratory test 08/04/2017 [facility] Point of 284 mg/dL High 70-100 105 finding 101 [facility] [place] [address] [phone] Laboratory test 08/04/2017 [facility] Point of 258 mg/dL High 70-100 106 finding 101 [facility] [place] [address] [phone] Urinalysis 08/03/2017 [facility] Urine Color Yellow Profile [address] [place] [address] [phone] Urine Appearance Cloudy Urine Specific [place] 1.012 N 1.010-1.030 Urine pH 5.0 N [...] Crystals Present Abnormal Absent Urine Drug 08/03/2017 [facility] Amphetamine Ur None Detected None Detect SCR ED & [address] [place] [address] [phone] Barbiturates Urine Screen None Detected None Detect Benzodiazepine Urine Screen None Detected None Detect Urine Cannabinoids Screen None Detected None Detect Urine Cocaine Screen None Detected None Detect Urine Opiates Screen None Detected None Detect Urine Phencyclidine Screen None Detected None Detect 107 Urine Culture And 08/03/2017 [facility] Urine SEE RESULT [address] [place] [address] [phone] CBC Auto Diff 08/03/2017 [facility] White Blood 10.9 High 3.5- [address] Count 10^3/uL 0.8 [place] [address] [phone] Red Blood Count 4.61 10^6/uL N 4.0-5.4 [...] Cells % 0 Comp Metabolic Panel 08/03/2017 [facility] Sodium 132 mmol/L Low 133-[address] [place] [address] [phone] Potassium 4.6 mmol/L N 3.5-5.0 Chloride 98 [...] Egfr Non- 67.7 >60 Egfr 87.1 >60 109 Laboratory test 08/03/2017 [facility] Acetaminophen < 15 g/mL 110 finding [address] [place] [address] [phone] Alcohol < 10 mg/dL N <10 Salicylate < 2.50 mg/dL <30 TSH (Thyroid Stim Horm) 0.60 mcIU/mL N 0.34-5.60 Laboratory test 08/02/2017 [facility] Troponin-I 0.01 <0.04 finding 101 (TnI) ng/[place] [address] [phone] CBC Auto Diff 08/02/2017 [facility] White Blood 13.8 High 3.5- 10.[address] Count 10^3/[place] [address] [phone] Red Blood Count 4.64 10^6/uL N 4.0-5.4 [...] Cells % 0 Comp Metabolic Panel 08/02/2017 [facility] Sodium 133 mmol/L N 133-145 [address] [place] [address] [phone] Potassium 4.7 mmol/L N 3.5-5.0 Chloride 101 [...] Egfr Non- 76.7 >60 Egfr 98.7 >60 111 Laboratory test 08/02/2017 [facility] Troponin-I 0.03 <0.[address] (TnI) ng/[place] [address] [phone] Urine Culture And 08/01/2017 [facility] Urine Culture SEE 112, Sensitivities [address] RESULT 113 [place] [address] BELOW [phone] Laboratory test 06/13/2017 [facility] Hemoglobin 9.2 High 5-7 finding A1c Laboratory test 06/03/2017 [facility] Point of Care 184 mg/dL High 70-100 [address] Glucose [place], [place] [address] [phone] Laboratory test 06/03/2017 [facility] Point of Care 256 mg/dL High 70-100 [address] Glucose [place], [place] [address] [phone] Laboratory test 06/03/2017 [facility] Point of Care 329 mg/dL High 70-100 [address] [place] [address] [phone] Laboratory test 06/03/2017 [facility] Point of Care 384 mg/dL High 70-100 [address] Glucose [place], [place] [address] [phone] Laboratory test 06/03/2017 [facility] Point of Care > 444 High 70-100 [address] Glucose mg/[place] [address] [phone] Laboratory test 06/03/2017 [facility] Point of Care > 444 High 70-100 [address] Glucose mg/[place] [address] [phone] 1 Transportation Program Director: [id number] 2 Transportation Program Director: [id number] 3 [facility] Severe Sepsis and Septic Shock Management Bundle Measure requires all lactic acids initially measuring >2.0 mmol/L be repeated. 4 Because ethnic data is not always [...] 5 Kidney failure <15 (or dialysis) 5 Critical Result GLU:46 Called to [id number] at: 16:46:21 by:[id number] Read back by:[id number] 6 Troponin-I testing on Plasma Separator Tubes (PST) has a known false positive rate of 0.20-0.40%. All positive troponins reflex immediately to secondary confirmatory testing. Using the [employer] DxI 800 Access Immunoassay systems, the 99th percentile upper reference limit was demonstrated to be < 0.03 ng/mL. 7 SEE RESULT BELOW Name: CECILIO ALFARO : [address]: Violeta Yusuf MD Acct: [id number] Unit: [id number] AGE: 53 Location: ED Re12/14/18 SEX: F Status: DEP ER SPEC: [id number] ANKUR: 12/14/18-[address] [facility] [address]: Violeta Yusuf MD REQ: [id number] RECD: 12/14/18-1221 STATUS: TASHA BARFIELD DR: Rosa Schroeder MD _ SOURCE: URINE SPDES: ORDERED: Urine Culture Procedure Result Reported Site Urine Culture Final 12/15/18- 1256 ML No growth of clinically significant organisms * ML - Main Lab . END OF REPORT DEPARTMENT OF PATHOLOGY, [address] [place] [address] Tay Gamboa M.D. Director [facility] # [id number] [facility] Severe Sepsis and Septic Shock Management Bundle Measure requires all lactic acids initially measuring >2.0 mmol/L be repeated. 9 <5.0 Negative 5.0 - 25.0 Indeterminate (Repeat testing recommended after 72 hours) >25.0 Positive Perimenopausal women can display HCG levels of up to 20 mIU/mL 10 Because ethnic data is not always [...] 5 Kidney failure <15 (or dialysis) 11 Troponin-I testing on Plasma Separator Tubes (PST) has a known false positive rate of 0.20-0.40%. All positive troponins reflex immediately to secondary confirmatory testing. Using the [employer] DxI 800 Access Immunoassay systems, the 99th percentile upper reference limit was demonstrated to be < 0.03 ng/mL. 12 Standard intensity warfarin therapeutic range: 2.0-3.0 High intensity warfarin therapeutic range: 2.5-3.5 13 Transportation Program Director: [id number] 14 Troponin-I testing on Plasma Separator Tubes (PST) has a known false positive rate of 0.20-0.40%. All positive troponins reflex immediately to secondary confirmatory testing. Using the [employer] DxI 800 Access Immunoassay systems, the 99th percentile upper reference limit was demonstrated to be < 0.03 ng/mL. 15 Because ethnic data is not always [...] 5 Kidney failure <15 (or dialysis) 16 [facility] Severe Sepsis and Septic Shock Management Bundle Measure requires all lactic acids initially measuring >2.0 mmol/L be repeated. 17 Because ethnic data is not always [...] 5 Kidney failure <15 (or dialysis) 18 Therapeutic concentration: <50 ug/mL Toxic concentration: >120 ug/mL 19 Because ethnic data is not always [...] 5 Kidney failure <15 (or dialysis) 20 Transportation Program Director: [id number] 21 Transportation Program Director: [id number] 22 SEE RESULT BELOW Name: CECILIO ALFARO : [address]: Neo Steinberg MD Acct: [id number] Unit: [id number] AGE: 53 Location: ED Re11/21/18 SEX: F Status: DEP ER SPEC: [id number] ANKUR: 11/21/[address] [facility] [address]: Neo Steinberg MD REQ: [id number] RECD: 11/21/18 STATUS: COMP KENIAHR DR: Rosa Schroeder MD _ SOURCE: URINE SPDESC: ORDERED: Urine Culture Procedure Result Reported Site Urine Culture Final 11/23/18- 1003 ML No growth of clinically significant organisms * ML - Main Lab . END OF REPORT DEPARTMENT OF PATHOLOGY, [address] [place] [address] Tay Gamboa M.D. Director [facility] # [id number] 23 Because ethnic data is not always readily [...] 15-29 5 Kidney failure <15 (or dialysis) 24 Therapeutic concentration: <50 ug/mL Toxic concentration: >120 ug/mL 25 Transportation Program Director: [id number] 26 Transportation Program Director: [id number] 27 Because ethnic data is not always readily [...] 15-29 5 Kidney failure <15 (or dialysis) 28 <5.0 Negative 5.0 - 25.0 Indeterminate (Repeat testing recommended after 72 hours) >25.0 Positive Perimenopausal women can display HCG levels of up to 20 mIU/mL 29 Therapeutic concentration: <50 ug/mL Toxic concentration: >120 ug/mL 30 Transportation Program Director: [id number] 32 Test Result Flag Unit RefValue TRYPSIN See [...] cannot be used interchangeably. Test Performed by: [facility] [address] [place] [address] 33 [id number] 34 Because ethnic data is not always [...] 5 Kidney failure <15 (or dialysis) 35 Desirable: <150 Borderline High: 150-199 High: 200-499 Very High: >500 36 Desirable: <200 Borderline High: 200-239 High: >239 37 Low: <40 Desirable: 40-60 High: >60 38 Desirable: <100 Near Optimal: 100-129 Borderline High: 130-159 High: 160-189 Very High: >189 39 [id number] 40 Therapeutic target for the treatment of diabetes mellitus patients is <7% HBA1C, and in selective patients <6.0%. Please refer to [place] [employer] diabetic care guidelines for further information. 41 Transportation Program Director: [id number] 42 Because ethnic data is not always [...] 5 Kidney failure <15 (or dialysis) 43 SEE RESULT BELOW Name: CECILIO ALFARO : [address]: Sendy Mcdowell MD Acct: [id number] Unit: [id number] AGE: 53 Location: ED Re07/10/18 SEX: F Status: BITA CHEUNG SPEC: [id number] ANKUR: 07/10/[address]: Sendy Mcdowell MD REQ: [id number] RECD: 07/10/18 STATUS: TASHA BARFIELD DR: Chapo Aguila MD _ SOURCE: URINE SPDESC: ORDERED: Urine Culture Procedure Result Reported Site Urine Culture Final 07/12/18- 0845 ML No growth of clinically significant organisms * ML - Main Lab . END OF REPORT DEPARTMENT OF PATHOLOGY, [address] [place] [address] Tay Gamboa M.D. Director [facility] # [id number] 44 Because ethnic data is not always [...] 5 Kidney failure <15 (or dialysis) 45 Therapeutic concentration: <50 ug/mL Toxic concentration: >120 ug/mL 46 The urine specimen was tested at the listed cutoffs: Drug class test level (ng/mL) Amphetamines 500 Barbiturates 200 Benzodiazepine metabolites 200 Cocaine metabolites 150 Cannabinoids 50 Opiates 300 Pcp 25 Specimen was received without chain of custody. Results should be used for medical purposes only. 47 Transportation Program Director: [id number] 48 Transportation Program Director: [id number] 49 The urine specimen was tested at the listed cutoffs: Drug class test level (ng/mL) Amphetamines 500 Barbiturates 200 Benzodiazepine metabolites 200 Cocaine metabolites 150 Cannabinoids 50 Opiates 300 Pcp 25 Specimen was received without chain of custody. Results should be used for medical purposes only. 50 Because ethnic data is not always [...] 5 Kidney failure <15 (or dialysis) 51 Therapeutic concentration: <50 ug/mL Toxic concentration: >120 ug/mL 52 [place] Severe Sepsis and Septic Shock Management Bundle Measure requires all lactic acids initially measuring >2.0 mmol/L be repeated. 53 Transportation Program Director: [id number] 54 Because ethnic data is not always [...] 5 Kidney failure <15 (or dialysis) 55 [facility] Severe Sepsis and Septic Shock Management Bundle Measure requires all lactic acids initially measuring >2.0 mmol/L be repeated. 56 SEE RESULT BELOW Name: CECILIO ALFARO : [address]: Danya Marquez MD Acct: [id number] Unit: [id number] AGE: 52 Location: [facility] Re05/15/18 SEX: F Status: REG REF SPEC: [id number] ANKUR: 05/15/[address] [facility] [address]: Danya Marquez MD REQ: [id number] RECD: 05/15/18 STATUS: COMP _ SOURCE: STOOL SPDESC: ORDERED: C. diff PCR Procedure Result Reported Site Stool Specimen Description Final 05/15/18- 1306 ML Stool Color [place] Stool Form Semi-formed Stool Consistency Firm C. difficile PCR Final 05/15/18- 1306 ML Test not performed * ML - Main Lab . END OF REPORT DEPARTMENT OF PATHOLOGY, [address] [place] [address] Tay Gamboa M.D. Director [facility] # [id number] 57 Transportation Program Director: [id number] 58 Transportation Program Director: [id number] 59 Because ethnic data is not always [...] 5 Kidney failure <15 (or dialysis) 60 [facility] Severe Sepsis and Septic Shock Management Bundle Measure requires all lactic acids initially measuring >2.0 mmol/L be repeated. 61 Unable to calculate due to low microalbumin 62 Presumptive Positive Presumptive positive results are unconfirmed. 63 The urine specimen was tested at the listed cutoffs: Drug class test level (ng/mL) Amphetamines 500 Barbiturates 200 Benzodiazepine metabolites 200 Cocaine metabolites 150 Cannabinoids 50 Opiates 300 Pcp 25 Specimen was received without chain of custody. Results should be used for medical purposes only. 64 Reference ranges based on room air. 65 [facility] Severe Sepsis and Septic Shock [...] 5 Kidney failure <15 (or dialysis) 67 Therapeutic concentration: <50 ug/mL Toxic concentration: >120 ug/mL 68 Because ethnic data is not always readily [...] 15-29 5 Kidney failure <15 (or dialysis) 69 Low risk: <1.00 Average risk: 1.00-3.00 High risk: >3.00 70 Transportation Program Director: [id number] 71 Transportation Program Director: [id number] 72 Because ethnic data is not always [...] 5 Kidney failure <15 (or dialysis) 73 Low risk: <1.00 Average risk: 1.00-3.00 High risk: >3.00 74 >100 to <200 pg/mL: likely compensated congestive heart failure (CHF) 200 to 400 pg/mL: likely moderate CHF >400 pg/mL: likely moderate to severe CHF 75 Because ethnic data is not always readily [...] 15-29 5 Kidney failure <15 (or dialysis) 76 Transportation Program Director: [id number] 77 Transportation Program Director: [id number] 78 Reference ranges based on room air. 79 Because ethnic data is not always [...] 5 Kidney failure <15 (or dialysis) 80 Acute inflammation: >10.00 81 Transportation Program Director: [id number] 82 Transportation Program Director: [id number] 83 SEE RESULT BELOW Name: CECILIO ALFARO Cameron : [address]: Violeta Yusuf MD Acct: [id number] Unit: [id number] AGE: 52 Location: ED Re08/22/17 SEX: F Status: DEP ER SPEC: [id number] ANKUR: 08/22/[address]: Violeta Yusuf MD REQ: [id number] RECD: 08/22/17 STATUS: TASHA BARFIELD DR: Chapo Aguila MD _ SOURCE: URINE [facility]: ORDERED: Urine Culture Procedure Result Reported Site Urine Culture Final 08/23/17- 1607 ML Mixed seema; possible contamination. Suggest resubmission. * ML - MAIN LAB ([facility]) . END OF REPORT * ML=Testing performed at Main Lab DEPARTMENT OF PATHOLOGY, [address] [place] [address] Tay Gamboa M.D. Director [facility] # [id number] 84 Reference ranges based on room air. 85 [facility] Severe Sepsis and Septic Shock Management Bundle Measure requires all lactic acids initially measuring >2.0 mmol/L be repeated. 86 Because ethnic data is not always readily [...] 15-29 5 Kidney failure <15 (or dialysis) 87 Critical Result GLU:543 Called to [id number] at: 21:48:40 by:[id number] Read back by:[id number] 88 Acute inflammation: >10.00 89 Transportation Program Director: [id number] 90 Transportation Program Director: [id number] 91 Therapeutic concentration: <50 ug/mL Toxic concentration: >120 ug/mL 92 ADDITIONAL INFORMATION This test was developed and its performance characteristics determined by [facility] in a manner consistent with CLIA requirements. This test has not been cleared or approved by the U.S. Food and Drug Administration. Test Performed by: [facility] [address] [place] [address] 93 Because ethnic data is not always readily [...] 15-29 5 Kidney failure <15 (or dialysis) 94 Critical Result GLU:543 Called to [id number] at: 18:00:03 by:[id number] Read back by:[id number] 95 Reference ranges based on room air. 96 Transportation Program Director: [id number] 97 Transportation Program Director: [id number] 98 The urine specimen was tested at the listed cutoffs: Drug class test level (ng/mL) Amphetamines 500 Barbiturates 200 Benzodiazepine metabolites 200 Cocaine metabolites 150 Cannabinoids 50 Opiates 300 Pcp 25 Specimen was received without chain of custody. Results should be used for medical purposes only. 99 Transportation Program Director: [id number] 100 The urine specimen was tested at the listed cutoffs: Drug class test level (ng/mL) Amphetamines 500 Barbiturates 200 Benzodiazepine metabolites 200 Cocaine metabolites 150 Cannabinoids 50 Opiates 300 Pcp 25 Specimen was received without chain of custody. Results should be used for medical purposes only. 101 Therapeutic concentration: <50 ug/mL Toxic concentration: >120 ug/mL 102 ADDITIONAL INFORMATION This test was developed and its performance characteristics determined by [facility] in a manner consistent with CLIA requirements. This test has not been cleared or approved by the U.S. Food and Drug Administration. Test Performed by: [facility] [address] [place] [address] 103 Because ethnic data is not always readily [...] 15-29 5 Kidney failure <15 (or dialysis) 104 Transportation Program Director: [id number] 105 Transportation Program Director: [id number] 106 Transportation Program Director: [id number] 107 The urine specimen was tested at the listed cutoffs: Drug class test level (ng/mL) Amphetamines 500 Barbiturates 200 Benzodiazepine metabolites 200 Cocaine metabolites 150 Cannabinoids 50 Opiates 300 Pcp 25 Specimen was received without chain of custody. Results should be used for medical purposes only. 108 SEE RESULT BELOW Name: CECILIO ALFARO : [address]: Sendy Mcdowell MD Acct: [id number] Unit: [id number] AGE: 52 Location: ED Re08/03/17 SEX: F Status: REG ER SPEC: [id number] ANKUR: 08/03/[address] [facility] [address]: Sendy Mcdowell MD REQ: [id number] RECD: 08/03/17 STATUS: COMP [facility] DR: Chapo Aguila MD _ SOURCE: URINE [facility]: ORDERED: Urine Culture Procedure Result Reported Site Urine Culture Final 08/05/17- 1225 ML No growth of clinically significant organisms * ML - MAIN LAB ([facility]) . END OF REPORT * ML=Testing performed at Main Lab DEPARTMENT OF PATHOLOGY, [address] [place] [address] Tay Gamboa M.D. Director [facility] # [id number] 109 Because ethnic data is not always readily [...] 15-29 5 Kidney failure <15 (or dialysis) 110 Therapeutic concentration: <50 ug/mL Toxic concentration: >120 ug/mL 111 Because ethnic data is not always readily [...] 15-29 5 Kidney failure <15 (or dialysis) 112 [id number] 113 SEE RESULT BELOW Name: CECILIO ALFARO : [address]: Any Ramirez MD Acct: [id number] Unit: [id number] AGE: 52 Location: [facility] Re08/01/17 SEX: F Status: DEP ER SPEC: [id number] ANKUR: 08/01/17-[address]: Any Ramirez MD REQ: [id number] RECD: 08/02/17 STATUS: TASHA BARFIELD DR: Chapo Aguila MD _ SOURCE: URINE [facility]: ORDERED: Urine Culture COMMENTS: [id number] Procedure Result Reported Site Urine Culture Final 08/03/17- 125 ML Mixed seema; possible contamination. Suggest resubmission. * ML - MAIN LAB ([facility]) . END OF REPORT * ML=Testing performed at Main Lab DEPARTMENT OF PATHOLOGY, [address] [place] [address] Tay Gamboa M.D. Director [facility] # [id number] 114 Transportation Program Director: [id number] 115 Transportation Program Director: [id number] 116 Transportation Program Director: [id number] 117 Transportation Program Director: [id number] 118 Transportation Program Director: [id number] 119 Transportation Program Director: [id number] Procedures Date Code Description Status 07/21/2018 90887 Inhalation [place] For Acute Airway Obstruction Completed W/Nebulizer/Inhaler 11/03/2017 41064 EKG, Interpretation Only Completed 10/26/2017 [id number] Diabetic Retinal Eye Exam Completed 10/11/2017 82406 Inject/Drain Joint/Bursa Major W/O US Completed 06/03/2017 91703 Carpal Tunnel Release Completed 06/03/2017 03487 Carpal Tunnel Release Completed 05/01/2016 50817914 Mammogram Completed 04/06/2016 70586 EEG Recording Awake & Drowsy Completed 04/03/2016 30450 EKG, Interpretation Only Completed 04/29/2015 52418 EEG Recording Awake & Drowsy Completed 04/16/2012 87716 EKG, Interpretation Only Completed 04/16/2012 01736 EKG, Interpretation Only Completed Encounters Type Date Location Provider Dx Diagnosis Office Visit 10/26/2018 [place] [facility] and Moreno Sandoval MD Z79.4 [facility] 4:00p [facility] (current) use of insulin E11.65 Type 2 diabetes mellitus with hyperglycemia E03.9 Hypothyroidism, unspecified Office Visit 10/19/2018 [facility] Internal Lawrence Simental M51.26 Other intervertebral 11:00a Jaylene Denson M.D.,FACP disc displacement, [address] lumbar region E11.65 Type 2 diabetes mellitus with hyperglycemia K59.00 Constipation, unspecified Office Visit 10/18/2018 1:15p Spine Navigator Consuelo Corrales M51.26 Other intervertebral Of [facility] PA-C disc displacement, lumbar region 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, lumbosacral region Office Visit 10/02/2018 3:00p [facility] Jun Schroeder MD I10 Essential (primary) Medicine - [address] M54.16 Radiculopathy, lumbar region F17.211 Nicotine dependence, cigarettes, in remission E66.9 Obesity, unspecified B37.3 Candidiasis of vulva and vagina Office Visit 09/25/2018 3:00p Spine Navigator Consuelo Corrales M54.16 Radiculopathy, Of [facility] PA-C lumbar region Office Visit 09/06/2018 2:20p [facility] Jun Schroeder, I10 Essential ( primary) Medicine - [address] E11.65 Type 2 diabetes mellitus with hyperglycemia R19.7 Diarrhea, unspecified M54.41 Lumbago with sciatica, right side F17.210 Nicotine dependence, cigarettes, uncomplicated R68.84 Jaw pain F60.3 Borderline personality disorder Office Visit 07/26/2018 [facility] Internal Lawrence Simental J40 Bronchitis, not 2:40p Jaylene - Adelina Denson,FACP specified as acute [address] or chronic Office Visit 07/21/2018 [facility] Internal Rosa Schroeder MD J45.901 Unspecified asthma 11:40a Medicine - with (acute) [place] exacerbation X79.xxxA Intentional self-harm by blunt object, initial encounter I10 Essential (primary) hypertension M54.41 Lumbago with sciatica, right side F60.3 Borderline personality disorder T18.9xxA Foreign body of alimentary tract, part unsp, init encntr Office Visit 07/18/2018 11:00a [place] [facility] and Moreno Sandoval, Z79.4 [facility] [place] (current) use of insulin E11.65 Type 2 diabetes mellitus with hyperglycemia E03.9 Hypothyroidism, unspecified R15.2 Fecal urgency Office Visit 07/04/2018 1:00p [place] Hodge and Moreno Sandoval Z79.4 [facility] [place] (current) use of insulin E11.65 Type 2 diabetes mellitus with hyperglycemia E03.9 Hypothyroidism, unspecified R19.7 Diarrhea, unspecified T50.902D Poisoning by unsp drug/meds/biol subst, self-harm, subs Office Visit 07/03/2018 10:00a [facility] Internal Rosa Schroeder, E11.65 Type 2 diabetes [...] sciatica, right side Office Visit 05/22/2018 2:30p [facility] Rosa Schroeder, R19.7 Diarrhea, Medicine - [place] MD unspecified Rd L08.1 Erythrasma R15.1 Fecal smearing Office Visit 05/15/2018 1:30p [facility] Rosa Schroeder, R19.7 Diarrhea, Medicine - [place] MD unspecified Rd F17.210 Nicotine dependence, cigarettes, uncomplicated J45.909 Unspecified asthma, uncomplicated E11.65 Type 2 diabetes mellitus with hyperglycemia Z91.81 History of falling E11.9 Type 2 diabetes mellitus without complications Office Visit 05/08/2018 9:30a [facility] Rosadevin Schroeder, E11.65 Type 2 diabetes Medicine - MD mellitus with [address] hyperglycemia R15.1 Fecal smearing I10 Essential (primary) hypertension R94.5 Abnormal results of liver function studies F33.3 Major depressv disorder, recurrent, severe w psych symptoms Office Visit 11/04/2017 [facility] Sania, G92 Toxic encephalopathy 11:25a Assocmatthieu M.D. Hospitalists T50.904A Poisoning by unsp drug/meds/biol subst, undetermined, init F60.3 Borderline personality disorder R40.2432 [place] coma scale score 3-8, EMR Office Visit 11/03/2017 11:23a [facility]ens[facility] Ishmael Dumont G92 Toxic encephalopathy Cheng, D.O. F60.3 Borderline personality disorder T50.904A Poisoning by unsp drug/meds/biol subst, undetermined, init R40.2432 [place] coma scale score 3-8, EMR Office Visit 11/02/2017 11:22a [facility] Ishmael Dumont R40.2432 [place] coma Cheng, D.O. scale score 3-8, EMR G92 Toxic encephalopathy T50.904A Poisoning by unsp drug/meds/biol subst, undetermined, init F60.3 Borderline personality disorder Office Visit 10/18/2017 [facility] Naveed F M75.31 Calcific tendinitis 9:00a Services Of MD Venecia of right shoulder C.M.A. Office Visit 10/13/2017 [facility] [place] E11.65 Type 2 diabetes 1:40p Medicine - [place] Ayla, mellitus with Rd M.DJarred hyperglycemia Z12.31 Encntr screen mammogram for malignant neoplasm of breast Z12.11 Encounter for screening for malignant neoplasm of colon Office Visit 10/11/2017 [facility] Naveed Lutz M75.31 Calcific tendinitis 1:30p Services Of MD Venecia of right shoulder C.M.A. Office Visit 09/28/2017 [facility] [place] E11.65 Type 2 diabetes 1:20p Medicine Ayla, mellitus with M.D. hyperglycemia M79.645 Pain in left finger(s) E03.9 Hypothyroidism, unspecified Office Visit 09/19/2017 [facility] [place] E11.65 Type 2 diabetes 2:40p Medicine - Adelina Aguila mellitus with [address] hyperglycemia M54.5 Low back pain Office Visit 08/17/2017 2:10p [facility] Lachelle F33.3 Major depressv Medicine - LUZ Berrios disorder, [address] recurrent, severe w psych symptoms R45.851 Suicidal ideations Office Visit 08/11/2017 1:20p [facility] [place] Aguila, F31.31 Bipolar Medicine - M.DJarred disorder, [address] current episode depressed, mild M51.16 Intervertebral disc disorders w radiculopathy, lumbar region K63.5 Polyp of colon K21.9 Gastro-esophageal reflux disease without esophagitis Office Visit 07/15/2017 11:00a [facility] [place] E11.9 Type 2 diabetes Jaylene Aguila M.D. mellitus without [address] complications M51.16 Intervertebral disc disorders w radiculopathy, lumbar region F31.31 Bipolar disorder, current episode depressed, mild E66.01 Morbid (severe) obesity due to excess calories Z68.41 Body mass index (BMI) 40.0-44.9, adult Office Visit 06/13/2017 3:20p [facility] [place] E11.9 Type 2 diabetes Medicine [...] dependence, cigarettes, uncomplicated B37.9 Candidiasis, unspecified Z79.4 FDC (current) use of insulin Office Visit 05/26/2017 Orth[facility] Marline G56.02 Carpal tunnel 8:45a Services Of Hilda Duarte M.D. 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 T39.1x2A Poisoning by 3:25p Assoc,matthieu Lui M.D. 4-Aminophenol Hospitalists derivatives, self-harm, init E11.9 Type 2 diabetes mellitus without complications F79 Unspecified intellectual disabilities Office Visit 05/20/2016 [facility] T39.1x2A Poisoning by 3:24p Assocmatthieu M.D. 4-Aminophenol Hospitalists derivatives, self-harm, init E11.9 Type 2 diabetes mellitus without complications F79 Unspecified intellectual disabilities [facility] Poisoning by 3:24p Assocmatthieu M.D. 4-Aminophenol Hospitalists derivatives, self-harm, init E11.9 Type 2 diabetes mellitus without complications F79 Unspecified intellectual disabilities [facility] Poisoning by 3:23p Assocmatthieu M.D. 4-Aminophenol Hospitalists derivatives, self-harm, init E11.9 Type 2 diabetes mellitus without complications F79 Unspecified intellectual disabilities Office Visit 05/17/2016 [facility] Ml T39.1x2A Poisoning by 3:23p Assoc,matthieu Mosquera M.D. 4-Aminophenol Hospitalists derivatives, self-harm, init E11.9 Type 2 diabetes mellitus without complications F79 Unspecified intellectual disabilities Office Visit 05/16/2016 [facility] Ml T39.1x2A Poisoning by 3:22p Assoc,matthieu Mosquera M.D. 4-Aminophenol Hospitalists derivatives, self-harm, init E11.9 Type 2 diabetes mellitus without complications F79 Unspecified intellectual disabilities Office Visit 05/15/2016 [facility] Ml T39.1x2A Poisoning by 3:22p Assoc,matthieu Mosquera M.D. 4-Aminophenol Hospitalists derivatives, self-harm, init E11.9 Type 2 diabetes mellitus without complications F79 Unspecified intellectual disabilities Office Visit 05/14/2016 [facility] Yara T39.1x2A Poisoning by 3:22p Assoc,matthieu Daly D.O. 4-Aminophenol Hospitalists derivatives, self-harm, init E11.9 Type 2 diabetes mellitus without complications F79 Unspecified intellectual disabilities Office Visit 05/13/2016 [facility] Yara T39.1x2A Poisoning by 3:21p Assoc,matthieu Daly D.O. 4-Aminophenol Hospitalists derivatives, self-harm, init E11.9 Type 2 diabetes mellitus without complications F79 Unspecified intellectual disabilities Office Visit 05/12/2016 [facility] Yara T39.1x2A Poisoning by 3:21p Assoc,matthieu Daly D.O. 4-Aminophenol Hospitalists derivatives, self-harm, init E11.9 Type 2 diabetes mellitus without complications F79 Unspecified intellectual disabilities Office 05/11/2016 [facility] Benjamin T39.1x2A Poisoning by Visit 3:20p Assoc,RAÚL Brewer 4-Aminophenol Hospitalists derivatives, self-harm, init E11.9 Type 2 diabetes mellitus without complications F79 Unspecified intellectual disabilities Office Visit 05/03/2016 [facility] Anu R73.9 Hyperglycemia, 11:09a Assoc,pc Joe, DO unspecified Hospitalists J40 Bronchitis, not specified as acute or chronic G89.4 Chronic pain syndrome Office Visit 04/07/2016 3:52p [facility] Ml R40.4 Transient Assocmatthieu M.D. alteration of Hospitalists awareness E13.9 Other specified diabetes mellitus without complications F79 Unspecified intellectual disabilities Z91.19 Patient's noncompliance w oth medical treatment and regimen Office Visit 04/06/2016 3:52p [facility] Ml R40.4 Transient Assoc,matthieu Mosquera M.D. alteration of Hospitalists awareness E13.9 Other specified diabetes mellitus without complications F79 Unspecified intellectual disabilities Z91.19 Patient's noncompliance w oth medical treatment and regimen Office Visit 04/05/2016 3:51p [facility] Yara R40.4 Transient Assoc,matthieu Daly, D.O. alteration of Hospitalists awareness E13.9 Other specified diabetes mellitus without complications F79 Unspecified intellectual disabilities Z91.19 Patient's noncompliance w oth medical treatment and regimen Office Visit 04/04/2016 3:51p [facility] Yara R40.4 Transient Assoc,matthieu Daly, D.O. alteration of Hospitalists awareness E13.9 Other specified diabetes mellitus without complications F79 Unspecified intellectual disabilities Z91.19 Patient's noncompliance w oth medical treatment and regimen Office Visit 04/03/2016 3:50p [facility] Rosi R40.4 Transient Assoc,matthieu Grant, LUZ alteration of Hospitalists awareness E13.9 Other specified diabetes mellitus without complications F79 Unspecified intellectual disabilities Z91.19 Patient's noncompliance w oth medical treatment and regimen Office Visit 10/01/2015 10:08a [facility] Gray M54.31 Sciatica, right Assoc,matthieu Conn, N.P. side Hospitalists E11.9 Type 2 diabetes mellitus without complications F60.3 Borderline personality disorder Office Visit 09/28/2015 10:06a [facility] Ml M54.31 Sciatica, right Assocmatthieu M.D. side Hospitalists E11.9 Type 2 diabetes mellitus without complications Office Visit 04/24/2015 [facility] Conner 276.1 Hyposmolality & Or 1:31p Assocmatthieu M.D. Hyponatremia Hospitalists 296.7 Bipolar I Disorder Current NOS 301.83 Borderline Personality Disorder Office Visit 04/23/2015 [facility] Conner 276.1 Hyposmolality & Or 1:30p Assocmatthieu M.D. Hyponatremia Hospitalists 250.00 Diabetes Mellitus W/O Compl Type II Or Unspec Controlled 296.7 Bipolar I Disorder Current NOS 301.83 Borderline Personality Disorder Office Visit 04/22/2015 [facility] Quique 276.1 Hyposmolality & Or 1:29p Assocmatthieu M.D. Hyponatremia Hospitalists 250.00 Diabetes Mellitus W/O Compl Type II Or Unspec Controlled 301.83 Borderline Personality Disorder Office Visit 04/21/2015 [facility] Gray 276.1 Hyposmolality & Or 1:28p Assocmatthieu NJarredPJarred Hyponatremia Hospitalists 296.7 Bipolar I Disorder Current NOS 301.83 Borderline Personality Disorder 250.00 Diabetes Mellitus W/O Compl Type II Or Unspec Controlled Office Visit 11/27/2014 [facility] Sherita 244.9 Hypothyroidism 8:42a Assocmatthieu M.D. Other Unspec Hospitalists 250.02 Diabetes Mellitus W/O Compl Type II Or Unspec Type Uncontrol 301.83 Borderline Personality Disorder Office Visit 04/17/2012 [facility] 969.09 Poisoning By Other 4:07p Assocmatthieu D.O. Antidepressants Hospitalists 300.9 Nonpsychotic Disorders NOS 311 Depressive Disorder Not Elsewhere Spec Office 04/16/2012 [facility] 969.09 Poisoning By Other Visit 4:35p Assmatthieu drake M.D. Antidepressants Hospitalists 300.9 Nonpsychotic Disorders NOS 311 Depressive Disorder Not Elsewhere Spec V11.1 History Personal Affective Disorder Office Visit 10/18/2009 1:00a [facility] Jase Edin, 789.00 Pain Abdominal Assocmatthieu M.D. Unspec Site Hospitalists 787.03 Vomiting Alone 790.29 Other Abnormal Glucose 250.02 Diabetes Mellitus W/O Compl Type II Or Unspec Type Uncontrol Office Visit 10/17/2009 3:00a [facility] Jase Edin, 790.29 Other Abnormal Assocmatthieu M.D. Glucose Hospitalists 789.00 Pain Abdominal Unspec Site 295.70 Schizoaffective Disorder NOS 401.9 Hypertension Unspec Office Visit 10/16/2009 12:15a [facility] Sherita 790.29 Other Abnormal Assoc,matthieu Marshall M.D. Glucose Hospitalists 296.80 Bipolar Disorder NOS Plan of Treatment Future Appointment(s):03/23/2019 1:40 pm - Rosa Schroeder MD at [facility] Tvqrafqc56/25/2019 11:40 am - Moreno Sandoval MD at [facility]01/02/2019 2:40 pm - Rosa Schroeder MD at [facility] Mjlmikcu14/24/2019 - Vassilios Jimmie, MDM47.896 Other spondylosis, lumbar regionNew Xrays:MRI Thoracic Spine W/O, Ordered: 12/22/18M48.062 Spinal stenosis , lumbar region with neurogenic claudication
--- OUTSIDE RECORDS SUMMARY | 2019-01-01 20:19 | XMS REPORT | Continuity of Care Document ---
:1965 External Reference #:[id number] Author Name Angeles Hugo Care Team Providers Name Role Phone Rosa Schroeder M.D. Primary Care Physician Unavailable Payers Date Identification Numbers Payment Provider Subscriber Effective: 1991 Policy Number: [id number] Medicare Taryn Alfaro PayID: [id number] [address] [place] [address] Policy Number: [id number] Medicaid Taryn Alfaro Group Name: 1 1 [address] PayID: [id number] [place] [address] Problems Active Problems Provider Date Type 2 diabetes mellitus Chapo Aguial M.D. Onset: 06/13/2017 Hypothyroidism Chapo Aguila M.D. [...] severe mental illness Lives With [facility]isted [facility] since March 2018. Was at [facility] from October-Apr 2018 Occupation Unemployed Occupation [...] dizziness 05/10/2017 Tramadol altered mental status 05/10/2017 [place] 05/10/2017 Lurasidone Moderate 05/08/2018 Metformin Diarrhea 05/22/2018 [...] for 1units M51.26 Rosa Schroeder MD 11/17/2018 [facility] ambulation 4 prong Cyclobenzaprine HCL take 1 [...] Holes/5" use as directed Adelina Denson,FACP 5" [facility] Fluconazole 1 tab by mouth x 2tabs [...] MD 09/04/2018 Lancets Extra Fine 33G day [facility] Arnuity Ellipta 1 puff inhaled 30units Rosa Schroeder MD 07/26/2018 every day 100mcg/Act Aerosol Depend Adjustable use four times a 120units Rosa Schroeder MD 07/03/2018 Underwear L/XL day [facility] Flonase Allergy Relief 2 sprays in each 9.900ml [facility] 06/23/2018 nostril twice a Adelina Marquez [...] twice daily 90gm Rosa Schroeder MD 05/15/2018 [id number] until rash clears Powder Ventolin HFA 2 [...] needed Maalox Max 30 milliliters by Unknown [phone] mouth q4hr as Suspension needed indigestion Cetirizine [...] - 250mg Tablets day, then 1 every [place], 07/31/2018 day M.D.,FACP Levothyroxine Sodium take 175mcg daily 30tabs E03.9 Moreno Sanodval 2017 - 175mcg on an empty MD 10/26/2018 Tablets stomach Methylprednisolone take as instructed 21units Miguel 06/29/2018 - 4mg TBPK per medrol dose MD Jonah 07/21/2018 pack instructions Naproxen take 1 tablet 14tabs Lawrence Simental 06/29/2018 - 500mg Tablets twice daily with [place], 10/02/2018 food prn Adelina,FACP Mucinex DM one [...] ambulate daily for 10/19/2018 unsteady gait -08/08" [facility] Shower Chair use when taking a 1units [...] Schroeder, 05/08/2018 - Underwear L/XL day 07/03/2018 [facility] Exercise Pt allowed to E11.65 Rosa Schroeder, 05/08/2018 - engage in exercise 07/03/2018 at facilities under direct supervision of staff Tresiba Flextouch 100 units at 15ml E11.65 [place] 10/13/2017 - 100Unit/ML bedtime Gerryika, 05/08/2018 Solution Pen-Inject MMarkel Losartan Potassium 1 by mouth once a 30tabs E11.65 [place] 10/13/2017 - 25mg day Pachikara, 05/08/2018 Tablets M.D. Hydrocodone-Acetaminophe 1 tab every 12h as 20tabs [place] 10/10/2017 - n needed Pachikara, 05/08/2018 5-325mg Tablets M.D. Tresiba Flextouch 60 units at 15ml E11.65 [place] 09/19/2017 - 100Unit/ML bedtime Pachikara, 10/13/2017 Solution Pen-Inject MMarkel Onetouch Ultra Mini test up to three 100units E11.9 Lawrence Simental 2017 - Strips times daily last [place], 09/09/2017 visit:08/17/17 Adelina,FACP Onetouch Ultra Mini check bs twice 100units [place] 08/31/2017 - Lancets daily Pachlaine, 05/08/2018 Adelina Onetouch Ultrasoft test blood 2-3 a 100units E11.9 Lawrence Simental 2017 - Lancets day or as needed [place], 09/04/2018 Misc Adelina,FACP Mucinex 1 po bid prn 20tabs Lawrence Simental 08/28/2017 - 600mg Tablets ER 12HR [place], 05/08/2018 Adelina,FACP Doxycycline Monohydrate 1 by mouth twice a 13caps Unknown 08/28/2017 - 100mg day x 7 days 09/04/2017 Capsules Tresiba Flextouch 30u SC in Am and 18ml Lawrence Simental 08/26/2017 - 200Unit/ML 70u SC in PM [place], 09/19/2017 Solution Pen-Inject Adelina,FACP Azithromycin 2 tabs by mouth on Unknown 08/26/2017 - 250mg Tablets day 1; 1 tab by 08/31/2017 mouth every day on days 2-5 Tramadol HCL 1 tab by mouth 30tabs Lawrence Simental 08/26/2017 - 50mg Tablets three times a day [place], 09/28/2017 Adelina,FACP Fluconazole one by mouth november 2tabs Lawrence Simental 08/22/2017 - 150mg Tablets repeat in 3 days [place], 05/08/2018 as needed Adelina,FACP Lancets 28G use with one touch 100units [place] 08/08/2017 - 28G Misc meter, check bs Pachika, 08/31/2017 daily MMarkel Onetouch test twice daily 100units [place] 08/08/2017 - Strips and as needed [facility], 08/31/2017 Adelina Janumet 1 by mouth twice a 60tabs E11.9 Chapo 07/15/2017 - 50-500mg Tablets day Ayla, 05/08/2018 Adelina Glucocom Blood Glucose one touch 1units Erik 07/03/2017 - Monitoring System glucometer to Adelina Walls 08/31/2017 W/Device measure blood Kit sugar daily Clotrimazole apply twice daily 90gm B37.9 [place] 06/13/2017 - 1% Cream Ayla 05/08/2018 MJarredDJarred Nicotrol use 4-5 times 168units F17.21 [place] 06/13/2017 - 10mg Inhaler daily 0 Ayla 05/08/2018 M.DJarred Acetaminophen-Codeine #3 1 tab by mouth 20tabs [place] 05/26/2017 - every 4-6 hours as Ayla [...] Atorvastatin Calcium take one tablet by 90tabs [place] - 40mg mouth every day Pachikara, 05/08/2018 Tablets Adelina Lantus Solostar 30 units SC in Am, 15ml Lawrence Simental - 100Unit/ML and 70 units SC a [place], 08/26/2017 Solution Pen-Inject hs Adelina,FACP Naproxen twice daily 60tabs [place] [facility]2017 Gabriel.Kamille Levothyroxine Sodium 1 tab daily am in 90tabs [place] - 200mcg the empty stomach Pachika, 05/08/2018 Tablets Gabriel.Kamille Levothyroxine Sodium 1 tab daily in the 90tabs [place] - 50mcg empty stomach Pachika, 05/08/2018 Tablets [...] Pantoprazole Sodium take 1 tablet by 30tabs [place] - 40mg mouth once daily Pachika, 05/08/[address] Sahu Ondansetron every 6-8 hours as Home, - 8mg Tablets needed LUZ Newman 05/08/2018 Dispers Ibuprofen as needed Home, - 600mg Tablets LUZ Newman 05/08/2018 Medications Administered in Office Medication SIG Qnty Indications Ordering Provider Date Depomedrol 40MG Naveed Cuadra MD 10/11/2017 Injection Immunizations CPT Code Status Date Vaccine Lot # [id number] Given 05/01/2018 Influenza Virus Vaccine, Quadrivalent, Split, Preservative Free Vital Signs Date Vital Result Comment 12/20/2018 3:17pm Height 67 inches 5'7" Weight [...] Result H/L Range Note Laboratory test 12/15/2018 [facility] Point of Care 204 mg/dL High 70-100 1 finding [address] [facility] [address] [phone] Laboratory test 12/15/2018 [facility] Point [facility] Care 112 mg/dL High 70-100 2 finding [address] [facility] [address] [phone] Laboratory test 12/15/2018 [facility] Lactic Acid 1.3 mmol/L N 0.5-2.0 3 finding [address] [place] [address] [phone] Comp Metabolic 12/15/2018 [facility] Sodium 142 mmol/L N 135- 145 Panel [address] [place] [address] [phone] Potassium 4.0 mmol/L N 3.5-5.0 Chloride 107 [...] mg/dL Low 70-100 5 Laboratory test 12/15/2018 [facility] Lipase < 10 U/L Low 11.0 -82.[address] [place] [address] [phone] CBC Auto Diff 12/15/2018 [facility] White Blood 12.0 High 3.5- 10.[address] Count 10^3/[place] [address] [phone] Red Blood Count 4.36 10^6/uL N 3.70-4.87 [...] Blood Cells % 0.1 Laboratory test 12/15/2018 [facility] Troponin-I 0.03 ng/mL < 0.04 [address] (TnI) [place] [address] [phone] Urine Culture And 12/14/2018 [facility] Urine Culture SEE RESULT [address] [place] [address] [phone] Laboratory test 12/14/2018 [facility] Lactic Acid 1.5 mmol/L N 0.5-2.0 8 finding [address] [place] [address] [phone] Urinalysis Profile 12/14/2018 [facility] Urine Color Yellow [address] [place] [address] [phone] Urine Appearance Clear Urine Specific [place] 1.004 Low 1.010-1.030 Urine pH 6.0 N [...] Cell Present Abnormal Absent Laboratory test 12/14/2018 [facility] Magnesium 1.6 mg/dL Low 1.9-2.7 finding [address] [place] [address] [phone] Amylase 33 U/L N 29-103 Lipase < 10 U/L Low 11.0-82.0 C Reactive Protein 3.27 mg/L N <8.01 HCG 2.75 mIU/mL 9 Comp Metabolic Panel 12/14/2018 [facility] Sodium 142 mmol/L N 135-145 [address] [place] [address] [phone] Potassium 4.0 mmol/L N 3.5-5.0 Chloride 110 [...] Egfr 88.6 >60 10 Laboratory test 12/14/2018 [facility] Partial 23.9 seconds Low 26.0-36.[address] [place] [address] [phone] Troponin-I (TnI) 0.01 ng/mL <0.04 11 Inr/Protime 12/14/2018 [facility] Inr 0.89 N 0.82-1.[address] [place] [address] [phone] CBC Auto Diff 12/14/2018 [facility] White Blood 13.8 High 3.5- 10.[address] Count 10^3/[place] [address] [phone] Red Blood Count 4.50 10^6/uL N 3.70-4.87 [...] Blood Cells % 0.0 Laboratory test 12/14/2018 [facility] Point of Care 128 mg/dL High 70-100 [address] [place] [address] [phone] Laboratory test 12/14/2018 [facility] Troponin-I 0.01 ng/mL < 0.04 [address] (TnI) [place] [address] [phone] B-Type Natriuretic Peptide BNP 10 pg/mL <=100 Comp Metabolic Panel 12/14/2018 [facility] Sodium 137 mmol/L N 135-[address] [place] [address] [phone] Potassium 4.3 mmol/L N 3.5-5.0 Chloride 105 [...] Egfr 72.1 >60 15 Laboratory test 12/14/2018 [facility] Lactic Acid 1.6 mmol/L N 0.5-2.[address] [place] [address] [phone] CBC Auto Diff 12/14/2018 [facility] White Blood 9.6 10^3/uL N 3.5-10.[address] [place] [address] [phone] Red Blood Count 4.05 10^6/uL N 3.70-4.87 [...] Cells % 0.1 CBC Auto Diff 12/09/2018 [facility] White Blood 9.7 10^3/uL N 3.5-10.[address] [place] [address] [phone] Red Blood Count 4.43 10^6/uL N 3.70-4.87 [...] Cells % 0.1 Comp Metabolic Panel 12/09/2018 [facility] Sodium 139 mmol/L N 135-[address] [place] [address] [phone] Chloride 106 mmol/L N 101-111 Co2 Carbon [...] U/L High 13-39 Laboratory test finding 12/09/2018 [facility] Amylase 23 U/L Low 29-103 [address] [place] [address] [phone] Lipase < 10 U/L Low 11.0-82.0 Laboratory test 12/05/2018 [facility] Acetaminophen < 15 g/mL 18 finding [address] [place] [address] [phone] Alcohol < 10 mg/dL N <10 Salicylate < 2.50 mg/dL <30 TSH (Thyroid Stim Horm) 8.38 mcIU/mL High 0.34-5.60 Comp Metabolic Panel 12/05/2018 [facility] Sodium 139 mmol/L N 135-145 [address] [place] [address] [phone] Potassium 3.9 mmol/L N 3.5-5.0 Chloride 107 [...] Egfr 92.5 >60 19 CBC Auto 12/05/2018 [facility] White Blood 11.5 10^3/uL High 3.5-10.[address] [place] [address] [phone] Red Blood Count 4.65 10^6/uL N 3.70-4.87 [...] Blood Cells % 0.0 Laboratory test 11/21/2018 [facility] Point of Care 88 mg/dL N 70-100 [address] [place] [address] [phone] Laboratory test 11/21/2018 [facility] Point [facility] Care 56 mg/dL Low 70-100 [address] [place] [address] [phone] Urinalysis 11/21/2018 [facility] Urine Color Yellow Profile [address] [place] [address] [phone] Urine Appearance Cloudy Urine Specific [place] 1.016 N 1.010-1.030 Urine pH 6.0 N [...] Present Abnormal Absent Urine Culture And 11/21/2018 [facility] Urine Culture SEE RESULT [address] [place] [address] [phone] Laboratory test 10/26/2018 [facility] Glucose Random 158 finding Hemoglobin A1c 8.0 High 5-7 Laboratory test 08/22/2018 [facility] Point of 202 mg/dL High 70-100 [address] [address] [phone] CBC Auto Diff 08/22/2018 [facility] White Blood 10.7 N 3.5- 10.[address] Count 10^3/[place] [address] [phone] Red Blood Count 4.66 10^6/uL N 4.00-5.40 [...] Cells % 0 Comp Metabolic Panel 08/22/2018 [facility] Sodium 139 mmol/L N 135-[address] [place] [address] [phone] Potassium 4.7 mmol/L N 3.5-5.0 Chloride 104 [...] Egfr Non- 61.0 >60 Egfr 73.8 >60 24 Laboratory test 08/22/2018 [facility] Acetaminophen < 15 g/mL [address] [place] [address] [phone] Alcohol < 10 mg/dL N <10 Salicylate < 2.50 mg/dL <30 TSH (Thyroid Stim Horm) 8.26 mcIU/mL High 0.34-5.60 Laboratory test 08/22/2018 [facility] Point of 321 mg/dL High 70-100 [address] [place] [address] [phone] CBC Auto Diff 08/19/2018 [facility] White Blood 9.3 N 3.5- 10.[address] Count 10^3/[place] [address] [phone] Red Blood Count 4.42 10^6/uL N 4.00-5.40 [...] Cells % 0.1 Comp Metabolic Panel 08/19/2018 [facility] Sodium 139 mmol/L N 135-[address] [place], [place] [phone] Chloride 108 mmol/L N 101-111 Co2 Carbon [...] 47 U/L High 13-39 Laboratory test 08/19/2018 [facility] HCG 2.61 mIU/mL [address] [place] [address] [phone] Acetaminophen < 15 g/mL 29 Alcohol < 10 mg/dL N <10 Salicylate < 2.50 mg/dL <30 TSH (Thyroid Stim Horm) 7.94 mcIU/mL High 0.34-5.60 Laboratory 08/17/2018 [facility] Care 145 mg/dL High 70-100 30 test finding [address] [place] [address] [phone] Laboratory 08/15/2018 [facility] Miscellaneous See 31, test finding [address] Test Comment 32 [place] [address] [phone] Comp 07/31/2018 [facility] Sodium 136 mmol/L N 135-145 [address] [place] [address] [phone] Potassium 4.9 mmol/L N 3.5-5.0 Chloride 104 [...] Egfr 93.8 >60 34 Lipid Profile 07/31/2018 [facility] Triglycerides 113 mg/dL 35 (Trig/Chol/HDL) [address] [place] [address] [phone] Cholesterol 94 mg/dL 36 HDL Cholesterol 34.8 mg/dL 37 LDL Cholesterol 37 mg/dL 38 Laboratory test finding 07/31/2018 [facility] GGTP 50 U/L N 9- 64.[address] [place] [address] [phone] Hemoglobin A1c (Glyco HGB) 8.3 % High 4.0-5.6 40 Laboratory test 07/20/2018 [facility] Point [facility] Care 78 mg/dL N 70-100 [address] [place] [address] [phone] CBC Auto Diff 07/20/2018 [facility] White Blood 8.8 10^3/uL N 3.5-10.[address] [place] [address] [phone] Red Blood Count 4.30 10^6/uL N 4.00-5.40 [...] Cells % 0 Basic Metabolic Panel 07/20/2018 [facility] Sodium 140 mmol/L N 135-[address] [place] [address] [phone] Potassium 4.0 mmol/L N 3.5-5.0 Chloride 108 mmol/L N 101-111 Co2 Carbon Dioxide 26 mmol/L N 22-32 Anion Gap 6 mmol/L N 2-11 Glucose 82 mg/dL N 70-100 Blood Urea Nitrogen 13 mg/dL N 6-24 Creatinine 0.71 mg/dL N 0.51-0.95 BUN/Creatinine Ratio 18.3 N 8-20 Calcium 9.3 mg/dL N 8.6-10.3 Egfr Non- 86.4 >60 Egfr 104.6 >60 42 CBC Auto 07/10/2018 [facility] White Blood 14.1 10^3/uL High 3.5-10.[address] [place] [address] [phone] Red Blood Count 4.77 10^6/uL N 4.00-5.40 [...] Blood Cells % 0 Urinalysis Profile 07/10/2018 [facility] Urine Color Yellow [address] [place] [address] [phone] Urine Appearance Cloudy Urine Specific [place] 1.017 N 1.010-1.030 Urine pH 5.0 N [...] Present Abnormal Absent Comp Metabolic Panel 07/10/2018 [facility] Sodium 136 mmol/L N 135-[address] [place] [address] [phone] Potassium 4.6 mmol/L N 3.5-5.0 Chloride 102 [...] Egfr Non- 54.4 >60 Egfr 65.9 >60 43 Laboratory test 07/10/2018 [facility] Acetaminophen < 15 g/mL [address] [place] [address] [phone] Alcohol < 10 mg/dL N <10 Salicylate < 2.50 mg/dL <30 TSH (Thyroid Stim Horm) 9.45 mcIU/mL High 0.34-5.60 Urine Drug 07/10/2018 [facility] Amphetamine Ur None Detected None Detect SCR ED & [address] [place] [address] [phone] Barbiturates Urine Screen None Detected None Detect Benzodiazepine Urine Screen None Detected None Detect Urine Cannabinoids Screen None Detected None Detect Urine Cocaine Screen None Detected None Detect Urine Opiates Screen None Detected None Detect Urine Phencyclidine Screen None Detected None Detect 45 Urine Culture 07/10/2018 [facility] Urine Culture SEE RESULT [address] [place] [address] [phone] Laboratory test 06/26/2018 [facility] Point of Care 143 mg/dL High 70-100 [address] [place] [address] [phone] Laboratory test 06/26/2018 [facility] Care 72 mg/dL N 70-100 [address] [place] [address] [phone] Laboratory test 06/26/2018 [facility] Point [facility] 98 mg/dL N 70-100 [address] [place] [address] [phone] Urine Drug SCR 06/26/2018 [facility] Amphetamine Ur None None ED [facility] [address] [place] [place] [address] [phone] Barbiturates Urine Screen None Detected None Detect Benzodiazepine Urine Screen None Detected None Detect Urine Cannabinoids Screen None Detected None Detect Urine Cocaine Screen None Detected None Detect Urine Opiates Screen None Detected None Detect Urine Phencyclidine Screen None Detected None Detect 50 CBC Auto 06/26/2018 [facility] White Blood 10.9 10^3/uL High 3.5-10.[address] [place] [address] [phone] Red Blood Count 4.42 10^6/uL N 4.00-5.40 [...] Cells % 0 Comp Metabolic Panel 06/26/2018 [facility] Sodium 137 mmol/L N 135-[address] [place] [address] [phone] Potassium 4.3 mmol/L N 3.5-5.0 Chloride 105 [...] Egfr Non- 79.0 >60 Egfr 95.6 >60 51 Urinalysis Profile 06/26/2018 [facility] Urine Color Straw [address] [place] [address] [phone] Urine Appearance Clear Urine Specific [place] 1.005 Low 1.010-1.030 Urine pH 6.0 N 5-9 Urine Urobilinogen Negative Negative Urine Ketones Negative Negative Urine Protein Negative Negative Urine Leukocytes Negative Negative Urine Blood Negative Negative Urine Nitrite Negative Negative Urine Bilirubin Negative Negative Urine Glucose Negative Negative Laboratory test 06/26/2018 [facility] Acetaminophen < 15 g/mL 52 finding [address] [place] [address] [phone] Alcohol < 10 mg/dL N <10 Salicylate < 2.50 mg/dL <30 Lactic Acid 0.9 mmol/L N 0.5-2.0 53 CBC Auto Diff 05/18/2018 [facility] White Blood 10.8 10^3/uL N 3.5-10.[address] [place] [address] [phone] Red Blood Count 4.33 10^6/uL N 4.00-5.40 [...] Cells % 0.1 Comp Metabolic Panel 05/18/2018 [facility] Sodium 139 mmol/L N 135-[address] [place] [address] [phone] Potassium 4.5 mmol/L N 3.5-5.0 Chloride 107 [...] Egfr 98.6 >60 54 Laboratory test 05/18/2018 [facility] Lipase < 10 U/L Low 11.0 -82.[address] [place] [address] [phone] Lactic Acid 1.1 mmol/L N 0.5-2.0 55 Laboratory test 05/15/2018 [facility] C Difficile PCR SEE RESULT [address] [place] [address] [phone] Laboratory test 05/11/2018 [facility] Glucose 342 mg/dL High 70-[address] Confirmatory 00 [place], [place] [phone] Laboratory test 05/11/2018 [facility] Point of Care 402 mg/dL High 70-1 [address] Glucose 00 [place] [address] [phone] Laboratory test 05/11/2018 [facility] Point of Care 426 mg/dL High 70-1 [address] Glucose 00 [place], [place] [address] [phone] CBC Auto Diff 05/10/2018 [facility] White Blood Count 12.0 High 3.5- [address] 10^3/uL 10.8 [place], [place] [address] [phone] Red Blood Count 4.39 10^6/uL N 4.00-5.40 [...] Cells % 0.1 Comp Metabolic Panel 05/10/2018 [facility] Sodium 141 mmol/L N 135-145 [address] [place] [address] [phone] Potassium 4.9 mmol/L N 3.5-5.0 Chloride 107 [...] Egfr 90.2 >60 59 Laboratory test 05/10/2018 [facility] Lipase < 10 U/L Low 11.0 -82.[address] [place] [address] [phone] C Reactive Protein 6.43 mg/L N <8.01 Lactic Acid 1.2 mmol/L N 0.5-2.0 60 Urine Microalbumin 05/08/2018 [facility] Ur Microalbumin < 15.[address] (mg/L) [place] [address] [phone] Urine Creatinine 224.47 mg/dL Urine Microalbumin/Creatinine TNP <31 61 Laboratory test 05/08/2018 [facility] Hemoglobin A1c 9.7 High 5-7 finding Urinalysis Profile 11/02/2017 [facility] Urine Color Yellow [address] [place] [address] [phone] Urine Appearance Clear Urine Specific [place] 1.018 N 1.010-1.030 Urine pH 5.0 N 5-9 Urine Urobilinogen Negative Negative Urine Ketones Negative Negative Urine Protein Negative Negative Urine Leukocytes Negative Negative Urine Blood Negative Negative Urine Nitrite Negative Negative Urine Bilirubin Negative Negative Urine Glucose 1+(50 mg/dL) Abnormal Negative Laboratory test 11/02/2017 [facility] Magnesium 1.9 mg/dL N 1.9-2.[address] [place] [address] [phone] Creatine Kinase(CK) 72 U/L N 10-223 Troponin-I (TnI) 0.03 ng/mL <0.04 Acetaminophen < 15 g/mL 62 Alcohol < 10 mg/dL N <10 Salicylate < 2.50 mg/dL <30 TSH (Thyroid Stim Horm) 1.79 mcIU/mL N 0.34-5.60 Urine Drug 11/02/2017 [facility] Amphetamine Ur None Detected None Detect SCR ED & [address] [place] [address] [phone] Barbiturates Urine Screen None Detected None Detect Benzodiazepine Urine Screen None Detected None Detect Urine Cannabinoids Screen None Detected None Detect Urine Cocaine Screen None Detected None Detect Urine Opiates Screen Presumptive Posi <SEE NOTE> Abnormal None Detect 63 Urine Phencyclidine Screen None Detected None Detect 64 Arterial Blood Gas 11/02/2017 [facility] PH Arterial 7.36 N 7.35-7.45 [address] [place] [address] [phone] Pco2 Arterial 50 mmHg High 35-45 Po2 Arterial 65 mmHg Low 80-100 O2 Saturation Arterial 91.1 % Low 95-98 Base Excess Arterial 2.1 High -2.0-2.0 65 Hco3 Arterial 26.4 mmol/L N 19-31 Laboratory test finding 11/02/2017 [facility] Ammonia 37 ?mol/L N 16-53 [address] [place] [address] [phone] Lactic Acid 1.0 mmol/L N 0.5-2.0 66 Comp Metabolic 11/02/2017 [facility] Potassium 4.4 mmol/L N 3.5-5.0 Panel [address] [place] [address] [phone] Chloride 107 mmol/L N 101-111 Co2 Carbon [...] Egfr Non- 70.5 >60 Egfr 90.7 >60 67 Sodium 142 mmol/L N 139-145 Anion Gap 5 mmol/L N 2-11 CBC Auto Diff 11/02/2017 [facility] White Blood 8.5 10^3/uL N 3.5-10.[address] Count [place], [place] [address] [phone] Red Blood Count 4.40 10^6/uL N 4.0-5.4 [...] Cells % 0 CBC Auto Diff 10/02/2017 [facility] White Blood 10.3 10^3/uL N 3.5-10.[address] [place] [address] [phone] Red Blood Count 4.29 10^6/uL N 4.0-5.4 [...] Cells % 0 Comp Metabolic Panel 10/02/2017 [facility] Sodium 136 mmol/L N 133-[address] [place] [address] [phone] Potassium 4.5 mmol/L N 3.5-5.0 Chloride 103 [...] Egfr 90.7 >60 68 Laboratory test 10/02/2017 [facility] CRP High 3.53 mg/L [address] [place] [address] [phone] Laboratory test 09/28/2017 [facility] Hemoglobin A1c 9.1 High 5-7 finding Laboratory test 09/13/2017 [facility] Point of Care 179 mg/dL High 70-10 [address] Glucose 0 [place] [address] [phone] Laboratory test 09/13/2017 [facility] Point of Care 260 mg/dL High 70-10 [address] Glucose 0 [place] [address] [phone] Comp Metabolic 08/29/2017 [facility] Sodium 136 N 133-[address] mmol/L 45 [place] [address] [phone] Potassium 4.9 mmol/L N 3.5-5.0 Chloride 104 [...] Egfr 60.9 >60 72 Laboratory test 08/29/2017 [facility] Lipase < 10 U/L Low 11.0 -82.[address] [place] [address] [phone] CRP High Sensitivity 1.79 mg/L 73 Troponin-I (TnI) 0.00 ng/mL <0.04 Laboratory test 08/29/2017 [facility] B-Type 21 pg/mL [address] [place] [address] Peptide BNP [phone] CBC Auto Diff 08/29/2017 [facility] White Blood Count 9.1 10^3/ uL N 3.5-[address] 0.8 [place] [address] [phone] Red Blood Count 4.06 10^6/uL N 4.0-5.4 [...] Cells % 0 Comp Metabolic Panel 08/26/2017 [facility] Sodium 139 mmol/L N 133-[address] [place] [address] [phone] Potassium 5.0 mmol/L N 3.5-5.0 Chloride 105 [...] >60 Egfr 80.7 >60 75 Inr/Protime 08/26/2017 [facility] Inr 0.82 N 0.77-1.[address] [place] [address] [phone] Laboratory test 08/26/2017 [facility] Partial 27.7 seconds N 26.0-36.[address] [place] [address] PTT [phone] CBC Auto Diff 08/26/2017 [facility] White Blood 9.0 10^3/uL N 3.5-10.[address] [place] [address] [phone] Red Blood Count 4.42 10^6/uL N 4.0-5.4 [...] Blood Cells % 0 Laboratory test 08/26/2017 [facility] Troponin-I 0.01 <0.[address] (TnI) ng/[place] [address] [phone] Laboratory test 08/25/2017 [facility] C Reactive 3.27 mg/L N < 5.00 [address] [place] [address] [phone] Venous Blood 08/25/2017 [facility] Venous Blood 7.48 High 7.33 -7.[address] [place] [address] [phone] Venous Pco2 31 mmHg Low 41-51 Venous Po2 98 mmHg High 35-45 Venous O2 Saturation 95.3 % High 70-80 Venous Blood Base Excess 0.1 N 0-4 77 Venous Bicarbonate Hco3 25.0 mmol/L N 24-28 CBC Auto Diff 08/25/2017 [facility] White Blood 8.9 10^3/uL N 3.5-10.[address] [place] [address] [phone] Red Blood Count 4.33 10^6/uL N 4.0-5.4 [...] Blood Cells % 0 Laboratory test 08/25/2017 [facility] Point of 289 mg/dL High 70-100 78 finding [address] [facility] [place] [address] [phone] Comp Metabolic 08/25/2017 [facility] Sodium 134 mmol/L N 133- 145 Panel [address] [place] [address] [phone] Potassium 4.8 mmol/L N 3.5-5.0 Chloride 101 [...] Non- 68.6 >60 Egfr 88.3 >60 79 Urinalysis Profile 08/25/2017 [facility] Urine Color Yellow [address] [place] [address] [phone] Urine Appearance Clear Urine Specific [place] 1.010 N 1.010-1.030 Urine pH 5.0 N 5-9 Urine Urobilinogen Negative Negative Urine Ketones Negative Negative Urine Protein Negative Negative Urine Leukocytes Negative Negative Urine Blood Negative Negative Urine Nitrite Negative Negative Urine Bilirubin Negative Negative Urine Glucose 3+(>=500 mg/dL) Abnormal Negative Laboratory test 08/25/2017 [facility] Point of 157 mg/dL High 70-100 80 finding [address] [facility] [place] [address] [phone] Laboratory test 08/23/2017 [facility] Point of 224 mg/dL High 70-100 81 finding [address] [facility] [place] [address] [phone] Laboratory test 08/22/2017 [facility] Lactic Acid 1.3 mmol/L N 0.5-2.0 82 finding 101 [place] [address] [phone] Comp Metabolic 08/22/2017 [facility] Sodium 131 mmol/L Low 133 -145 Panel 101 [place] [address] [phone] Potassium 4.6 mmol/L N 3.5-5.0 Chloride 98 [...] Egfr Non- 65.2 >60 Egfr 83.8 >60 83 Glucose 543 mg/dL High 70-100 84 Laboratory test 08/22/2017 [facility] Magnesium 2.0 mg/dL N 1.9-2.7 finding [address] [place] [address] [phone] Creatine Kinase(CK) 121 U/L N 10-223 C Reactive Protein 4.62 mg/L N < 5.00 85 Troponin-I (TnI) 0.01 ng/mL <0.04 Laboratory test 08/22/2017 [facility] Glucose 417 mg/dL High 70-100 finding 101 [facility] [place] [address] [phone] Laboratory test 08/22/2017 [facility] Point of > 444 mg/dL High 70-100 [address] [place] [address] [phone] Urinalysis 08/22/2017 [facility] Urine Color Yellow Profile [address] [place] [address] [phone] Urine Appearance Cloudy Urine Specific [place] 1.023 N 1.010-1.030 Urine pH 6.0 N [...] Present Abnormal Absent Urine Culture And 08/22/2017 [facility] Urine Culture SEE RESULT [address] [place] [address] [phone] CBC Auto Diff 08/22/2017 [facility] White Blood 8.9 10^3/uL N 3.5-[address] Count 0.8 [place] [address] [phone] Red Blood Count 4.19 10^6/uL N 4.0-5.4 [...] Cells % 0.1 Venous Blood Gas 08/22/2017 [facility] Venous Blood pH 7.42 N 7.33-7.43 [address] [place] [address] [phone] Venous Pco2 49 mmHg N 41-51 Venous Po2 36 mmHg N 35-45 Venous O2 Saturation 78.1 % N 70-80 Venous Blood Base Excess 6.3 High 0-4 88 Venous Bicarbonate Hco3 29.4 mmol/L High 24-28 Inr/Protime 08/22/2017 [facility] Inr 0.91 N 0.77-1.02 [address] [place] [address] [phone] Laboratory test 08/18/2017 [facility] Point of 180 mg/dL High 70-100 89 finding 101 [place] [address] Glucose [phone] Urinalysis 08/17/2017 [facility] Urine Color Yellow Profile [address] [place] [phone] Urine Appearance Cloudy Urine Specific [place] 1.016 N 1.010-1.030 Urine pH 5.0 N 5-9 Urine Urobilinogen Negative Negative Urine Ketones Negative Negative Urine Protein Negative Negative Urine Leukocytes Negative Negative Urine Blood Negative Negative Urine Nitrite Negative Negative Urine Bilirubin Negative Negative Urine Glucose 3+(>=500 mg/dL) Abnormal Negative Urine Drug 08/17/2017 [facility] Amphetamine Ur None Detected None Detect SCR ED & 101 [facility] [place] [address] [phone] Barbiturates Urine Screen None Detected None Detect Benzodiazepine Urine Screen None Detected None Detect Urine Cannabinoids Screen None Detected None Detect Urine Cocaine Screen None Detected None Detect Urine Opiates Screen None Detected None Detect Urine Phencyclidine Screen None Detected None Detect 90 Laboratory test 08/17/2017 [facility] Point of 276 mg/dL High 70-100 91 finding 101 [facility] [place] [address] [phone] Laboratory test 08/17/2017 [facility] Point of > 444 High 70- 100 [address] Care Glucose mg/[place] [address] [phone] Venous Blood 08/17/2017 [facility] Venous Blood 7.36 N 7.33- 7.[address] [place] [address] [phone] Venous Pco2 48 mmHg N 41-51 Venous Po2 29 mmHg Low 35-45 Venous O2 Saturation 59.9 % Low 70-80 Venous Blood Base Excess 1.1 N 0-4 93 Venous Bicarbonate Hco3 24.9 mmol/L N 24-28 CBC Auto Diff 08/17/2017 [facility] White Blood 10.8 10^3/uL N 3.5-10.[address] [place] [address] [phone] Red Blood Count 4.74 10^6/uL N 4.0-5.4 [...] Cells % 0 Comp Metabolic Panel 08/17/2017 [facility] Sodium 133 mmol/L N 133-[address] [place] [address] [phone] Potassium 4.9 mmol/L N 3.5-5.0 Chloride 101 [...] Egfr Non- 72.5 >60 Egfr 93.2 >60 94 Glucose 543 mg/dL High 70-100 95 Laboratory test 08/17/2017 [facility] Acetaminophen < 15 g/mL [address] [place] [address] [phone] Alcohol < 10 mg/dL N <10 Salicylate < 2.50 mg/dL <30 TSH (Thyroid Stim Horm) 2.76 mcIU/mL N 0.34-5.60 Lamotrigine (Lamictal) 4.2 g/mL 2.5 - 15.0 97 Laboratory test 08/17/2017 [facility] Point of > 444 High 70- 100 [address] Care Glucose mg/[place] [address] [phone] Laboratory test 08/09/2017 [facility] Point of 266 mg/dL High 70-100 [address] [place] [address] [phone] CBC Auto Diff 08/08/2017 [facility] White Blood 11.9 High 3.5- 10.[address] Count 10^3/[place] [address] [phone] Red Blood Count 4.78 10^6/uL N 4.0-5.4 [...] Cells % 0 Comp Metabolic Panel 08/08/2017 [facility] Sodium 136 mmol/L N 133-[address] [place] [address] [phone] Potassium 4.3 mmol/L N 3.5-5.0 Chloride 100 [...] Egfr Non- 74.5 >60 Egfr 95.9 >60 100 Laboratory test 08/08/2017 [facility] Acetaminophen < 15 g/mL [address] [place] [address] [phone] Alcohol < 10 mg/dL N <10 Salicylate < 2.50 mg/dL <30 TSH (Thyroid Stim Horm) 2.67 mcIU/mL N 0.34-5.60 Lamotrigine (Lamictal) 2.5 g/mL 2.5 - 15.0 102 Urinalysis Profile 08/08/2017 [facility] Urine Color Yellow [address] [place] [address] [phone] Urine Appearance Cloudy Urine Specific [place] 1.022 N 1.010-1.030 Urine pH 6.0 N 5-9 Urine Urobilinogen Negative Negative Urine Ketones Negative Negative Urine Protein Negative Negative Urine Leukocytes Negative Negative Urine Blood Negative Negative Urine Nitrite Negative Negative Urine Bilirubin Negative Negative Urine Glucose 3+(>=500 mg/dL) Abnormal Negative Urine Drug 08/08/2017 [facility] Amphetamine Ur None Detected None Detect SCR ED & 101 [facility] [place] [address] [phone] Barbiturates Urine Screen None Detected None Detect Benzodiazepine Urine Screen None Detected None Detect Urine Cannabinoids Screen None Detected None Detect Urine Cocaine Screen None Detected None Detect Urine Opiates Screen None Detected None Detect Urine Phencyclidine Screen None Detected None Detect 103 Laboratory test 08/04/2017 [facility] Point of 258 mg/dL High 70-100 104 finding 101 [place] [address] [phone] Laboratory test 08/04/2017 [facility] Point of 175 mg/dL High 70-100 105 finding 101 [facility] [place] [address] [phone] Laboratory test 08/04/2017 [facility] Point of 284 mg/dL High 70-100 106 finding 101 [place] [address] [phone] Urinalysis 08/03/2017 [facility] Urine Color Yellow Profile [address] [place] [address] [phone] Urine Appearance Cloudy Urine Specific [place] 1.012 N 1.010-1.030 Urine pH 5.0 N [...] Crystals Present Abnormal Absent Urine Drug 08/03/2017 [facility] Amphetamine Ur None Detected None Detect SCR ED & [address] [place] [address] [phone] Barbiturates Urine Screen None Detected None Detect Benzodiazepine Urine Screen None Detected None Detect Urine Cannabinoids Screen None Detected None Detect Urine Cocaine Screen None Detected None Detect Urine Opiates Screen None Detected None Detect Urine Phencyclidine Screen None Detected None Detect 107 Urine Culture And 08/03/2017 [facility] Urine SEE RESULT [address] [place] [address] [phone] CBC Auto Diff 08/03/2017 [facility] White Blood 10.9 High 3.5- [address] Count 10^3/uL 0.8 [place] [address] [phone] Red Blood Count 4.61 10^6/uL N 4.0-5.4 [...] Cells % 0 Comp Metabolic Panel 08/03/2017 [facility] Sodium 132 mmol/L Low 133-[address] [place] [address] [phone] Potassium 4.6 mmol/L N 3.5-5.0 Chloride 98 [...] Egfr 87.1 >60 109 Laboratory test 08/03/2017 [facility] Acetaminophen < 15 g/mL 110 finding [address] [place] [address] [phone] Alcohol < 10 mg/dL N <10 Salicylate < 2.50 mg/dL <30 TSH (Thyroid Stim Horm) 0.60 mcIU/mL N 0.34-5.60 Laboratory test 08/02/2017 [facility] Troponin-I 0.01 <0.04 finding [address] [facility] (TnI) ng/[place] [address] [phone] CBC Auto Diff 08/02/2017 [facility] White Blood 13.8 High 3.5- 10.[address] Count 10^3/[place] [address] [phone] Red Blood Count 4.64 10^6/uL N 4.0-5.4 [...] Cells % 0 Comp Metabolic Panel 08/02/2017 [facility] Sodium 133 mmol/L N 133-[address] [place] [address] [phone] Potassium 4.7 mmol/L N 3.5-5.0 Chloride 101 [...] Egfr 98.7 >60 111 Laboratory test 08/02/2017 [facility] Troponin-I 0.03 <0.[address] (TnI) ng/[place] [address] [phone] Urine Culture And 08/01/2017 [facility] Urine Culture SEE 112, Sensitivities [address] RESULT 113 [place] [address] BELOW [phone] Laboratory test 06/13/2017 [facility] Hemoglobin 9.2 High 5-7 finding A1c Laboratory test 06/03/2017 [facility] Point of Care 184 mg/dL High 70-100 [address] [place] [address] [phone] Laboratory test 06/03/2017 [facility] Point of Care 256 mg/dL High 70-100 [address] [place] [address] [phone] Laboratory test 06/03/2017 [facility] Point of Care 329 mg/dL High 70-100 [address] [place] [address] [phone] Laboratory test 06/03/2017 [facility] Point of Care 384 mg/dL High 70-100 [address] [place] [address] [phone] Laboratory test 06/03/2017 [facility] Point of Care > 444 High 70-100 [address] Glucose mg/[place] [address] [phone] Laboratory test 06/03/2017 [facility] Point of Care > 444 High 70-100 [address] Glucose mg/[place] [address] [phone] 1 Welder/Fabricator: [id number] 2 Welder/Fabricator: [id number] 3 [facility] Severe Sepsis and Septic Shock Management [...] dialysis) 5 Critical Result GLU:46 Called to [id number] at: 16:46:21 by:[id number] Read back by:[id number] 6 Troponin-I testing on Plasma Separator Tubes (PST) has a known false positive rate of 0.20-0.40%. All positive troponins reflex immediately to secondary confirmatory testing. Using the [employer] DxI 800 Access Immunoassay systems, the 99th percentile upper reference limit was demonstrated to be < 0.03 ng/mL. 7 SEE RESULT BELOW Name: TARYN ALFARO : [address]: Violeta Yusuf MD Acct: [id number] Unit: [id number] AGE: 53 Location: ED Re12/14/18 SEX: F Status: DEP ER SPEC: [id number] ANKUR: 12/14/18-[address] [facility] [address]: Violeta Yusuf MD REQ: [id number] RECD: 12/14/18-1221 STATUS: TASHA BARFIELD DR: Rosa Schroeder MD _ SOURCE: URINE SPDESC: ORDERED: Urine Culture Procedure Result Reported Site Urine Culture Final 12/15/18- 1256 ML No growth of clinically significant organisms * ML - Main Lab . END OF REPORT DEPARTMENT OF PATHOLOGY, [address] [place] [address] Tay Gamboa M.D. Director [facility] # [id number] [facility] Severe Sepsis and Septic Shock [...] High intensity warfarin therapeutic range: 2.5-3.5 13 Welder/Fabricator: [id number] Troponin-I testing on Plasma Separator Tubes [...] 5 Kidney failure <15 (or dialysis) 16 [facility] Severe Sepsis and Septic Shock Management [...] 5 Kidney failure <15 (or dialysis) 20 Welder/Fabricator: [id number] 21 Welder/Fabricator: [id number] 22 SEE RESULT BELOW Name: TARYN ALFARO : [address]: Neo Steinberg MD Acct: [id number] Unit: [id number] AGE: 53 Location: ED Re11/21/18 SEX: F Status: DEP ER SPEC: [id number] ANKUR: 11/21/[address]: Neo Steinberg MD REQ: [id number] RECD: 11/21/18 STATUS: COMP OTHR DR: Rosa Schroeder MD _ SOURCE: URINE SPDESC: ORDERED: Urine Culture Procedure Result Reported Site Urine Culture Final 11/23/18- 1003 ML No growth of clinically significant organisms * ML - Main Lab . END OF REPORT DEPARTMENT OF PATHOLOGY, [address] [place] [address] Tay Gamboa M.D. Director [facility] # [id number] 23 Welder/Fabricator: [id number] 24 Because ethnic data is not always [...] 5 Kidney failure <15 (or dialysis) 25 Therapeutic concentration: <50 ug/mL Toxic concentration: >120 ug/mL 26 Welder/Fabricator: [id number] 27 Because ethnic data is not always [...] <50 ug/mL Toxic concentration: >120 ug/mL 30 Welder/Fabricator: [id number] 32 Test Result Flag Unit RefValue TRYPSIN [...] cannot be used interchangeably. Test Performed by: [employer] [address] [place] [id number] 33 [id number] 34 Because ethnic data is not always [...] 130-159 High: 160-189 Very High: >189 39 [id number] 40 Therapeutic target for the treatment of diabetes mellitus patients is <7% HBA1C, and in selective patients <6.0%. Please refer to [place] [employer] diabetic care guidelines for further information. 41 Welder/Fabricator: [id number] 42 Because ethnic data is not always [...] 5 Kidney failure <15 (or dialysis) 43 Because ethnic data is not always [...] 5 Kidney failure <15 (or dialysis) 44 Therapeutic concentration: <50 ug/mL Toxic concentration: >120 ug/mL 45 The urine specimen was tested at the listed cutoffs: Drug class test level (ng/mL) Amphetamines 500 Barbiturates 200 Benzodiazepine metabolites 200 Cocaine metabolites 150 Cannabinoids 50 Opiates 300 Pcp 25 Specimen was received without chain of custody. Results should be used for medical purposes only. 46 SEE RESULT BELOW Name: TARYN ALFARO Cameron : [address]: Sendy Mcdowell MD Acct: [id number] Unit: [id number] AGE: 53 Location: ED Re07/10/18 SEX: F Status: DEP ER SPEC: [id number] ANKUR: 07/10/[address]: Sendy Mcdowell MD REQ: [id number] RECD: 07/10/18 STATUS: TASHA BARFIELD DR: Chapo Aguila MD _ SOURCE: URINE [facility]: ORDERED: Urine Culture Procedure Result Reported Site Urine Culture Final 07/12/18- 45 ML No growth of clinically significant organisms * ML - Main Lab . END OF REPORT DEPARTMENT OF PATHOLOGY, [address] [place] [address] Tay Gamboa M.D. Director [facility] # [id number] 47 Welder/Fabricator: [id number] 48 Welder/Fabricator: [id number] 49 Welder/Fabricator: [id number] 50 The urine specimen was tested at the listed cutoffs: Drug class test level (ng/mL) Amphetamines 500 Barbiturates 200 Benzodiazepine metabolites 200 Cocaine metabolites 150 Cannabinoids 50 Opiates 300 Pcp 25 Specimen was received without chain of custody. Results should be used for medical purposes only. 51 Because ethnic data is not always [...] 5 Kidney failure <15 (or dialysis) 52 Therapeutic concentration: <50 ug/mL Toxic concentration: >120 ug/mL 53 [facility] Severe Sepsis and Septic Shock Management Bundle Measure requires all lactic acids initially measuring >2.0 mmol/L be repeated. 54 Because ethnic data is not always [...] 5 Kidney failure <15 (or dialysis) 55 [facility] Severe Sepsis and Septic Shock Management Bundle Measure requires all lactic acids initially measuring >2.0 mmol/L be repeated. 56 SEE RESULT BELOW Name: TARYN ALFARO Cameron : [address]: Danya Marquez MD Acct: [id number] Unit: [id number] AGE: 52 Location: [facility] Re05/15/18 SEX: F Status: REG REF SPEC: [id number] ANKUR: 05/15/18-[address] [facility] [address]: Danya Marquez MD REQ: [id number] RECD: 05/15/189200 STATUS: COMP _ SOURCE: STOOL SPDESC: ORDERED: C. diff PCR Procedure Result Reported Site Stool Specimen Description Final 05/15/18- 1306 ML Stool Color [place] Stool Form Semi-formed Stool Consistency Firm C. difficile PCR Final 05/15/18- 1306 ML Test not performed * ML - Main Lab . END OF REPORT DEPARTMENT OF PATHOLOGY, [address] [place] [address] Tay Gamboa M.D. Director [facility] # [id number] 57 Welder/Fabricator: [id number] 58 Welder/Fabricator: [id number] 59 Because ethnic data is not always [...] 5 Kidney failure <15 (or dialysis) 60 [facility] Severe Sepsis and Septic Shock Management Bundle Measure requires all lactic acids initially measuring >2.0 mmol/L be repeated. 61 Unable to calculate due to low microalbumin 62 Therapeutic concentration: <50 ug/mL Toxic concentration: >120 ug/mL 63 Presumptive Positive Presumptive positive results are unconfirmed. 64 The urine specimen was tested at the listed cutoffs: Drug class test level (ng/mL) Amphetamines 500 Barbiturates 200 Benzodiazepine metabolites 200 Cocaine metabolites 150 Cannabinoids 50 Opiates 300 Pcp 25 Specimen was received without chain of custody. Results should be used for medical purposes only. 65 Reference ranges based on room air. 66 [facility] Severe Sepsis and Septic Shock Management Bundle Measure requires all lactic acids initially measuring >2.0 mmol/L be repeated. 67 Because ethnic data is not always [...] 5 Kidney failure <15 (or dialysis) 68 Because ethnic data is not always [...] Average risk: 1.00-3.00 High risk: >3.00 70 Welder/Fabricator: [id number] 71 Welder/Fabricator: [id number] 72 Because ethnic data is not always [...] 5 Kidney failure <15 (or dialysis) 76 Acute inflammation: >10.00 77 Reference ranges based on room air. 78 Welder/Fabricator: [id number] 79 Because ethnic data is not always [...] 5 Kidney failure <15 (or dialysis) 80 Welder/Fabricator: [id number] 81 Welder/Fabricator: [id number] 82 [facility] Severe Sepsis and Septic Shock Management Bundle Measure requires all lactic acids initially measuring >2.0 mmol/L be repeated. 83 Because ethnic data is not always [...] 5 Kidney failure <15 (or dialysis) 84 Critical Result GLU:543 Called to [id number] at: 21:48:40 by:[id number] Read back by:[id number] 85 Acute inflammation: >10.00 86 Welder/Fabricator: [id number] 87 SEE RESULT BELOW Name: TARYN ALFARO : [address]: Violeta Yusuf MD Acct: [id number] Unit: [id number] AGE: 52 Location: ED Re08/22/17 SEX: F Status: DEP ER SPEC: [id number] ANKUR: 08/22/[address]: Violeta Yusuf MD REQ: [id number] RECD: 08/22/17 STATUS: TASHA BARFIELD DR: Chapo Aguila MD _ SOURCE: URINE SPDESC: ORDERED: Urine Culture Procedure Result Reported Site Urine Culture Final 08/23/17- 1607 ML Mixed seema; possible contamination. Suggest resubmission. * ML - MAIN LAB ([facility]) . END OF REPORT * ML=Testing performed at Main Lab DEPARTMENT OF PATHOLOGY, [address] [place] [address] Tay Gamboa M.D. Director [facility] # [id number] 88 Reference ranges based on room air. 89 Welder/Fabricator: [id number] 90 The urine specimen was tested at the listed cutoffs: Drug class test level (ng/mL) Amphetamines 500 Barbiturates 200 Benzodiazepine metabolites 200 Cocaine metabolites 150 Cannabinoids 50 Opiates 300 Pcp 25 Specimen was received without chain of custody. Results should be used for medical purposes only. 91 Welder/Fabricator: [id number] 92 Welder/Fabricator: [id number] 93 Reference ranges based on room air. 94 Because ethnic data is not always [...] 5 Kidney failure <15 (or dialysis) 95 Critical Result GLU:543 Called to [id number] at: 18:00:03 by:[id number] Read back by:[id number] 96 Therapeutic concentration: <50 ug/mL Toxic concentration: >120 ug/mL 97 ADDITIONAL INFORMATION This test was developed and its performance characteristics determined by [facility] in a manner consistent with CLIA requirements. This test has not been cleared or approved by the U.S. Food and Drug Administration. Test Performed by: [facility] [employer] [place] [facility] [place] [address] 98 Welder/Fabricator: [id number] 99 Welder/Fabricator: [id number] 100 Because ethnic data is not always readily [...] 15-29 5 Kidney failure <15 (or dialysis) 101 Therapeutic concentration: <50 ug/mL Toxic concentration: >120 ug/mL 102 ADDITIONAL INFORMATION This test was developed and its performance characteristics determined by [facility] in a manner consistent with CLIA requirements. This test has not been cleared or approved by the U.S. Food and Drug Administration. Test Performed by: [facility] [employer] [place] [employer] [place] [address] 103 The urine specimen was tested at the listed cutoffs: Drug class test level (ng/mL) Amphetamines 500 Barbiturates 200 Benzodiazepine metabolites 200 Cocaine metabolites 150 Cannabinoids 50 Opiates 300 Pcp 25 Specimen was received without chain of custody. Results should be used for medical purposes only. 104 Welder/Fabricator: [id number] 105 Welder/Fabricator: [id number] 106 Welder/Fabricator: [id number] 107 The urine specimen was tested at the listed cutoffs: Drug class test level (ng/mL) Amphetamines 500 Barbiturates 200 Benzodiazepine metabolites 200 Cocaine metabolites 150 Cannabinoids 50 Opiates 300 Pcp 25 Specimen was received without chain of custody. Results should be used for medical purposes only. 108 SEE RESULT BELOW Name: ANGELINATARYN Cameron : [address]: Sendy Mcdowell MD Acct: [id number] Unit: [id number] AGE: 52 Location: ED Re08/03/17 SEX: F Status: REG ER SPEC: [id number] ANKUR: 08/03/[address] [facility] [address]: Sendy Mcdowell MD REQ: [id number] RECD: 08/03/17 STATUS: TASHA BARFIELD DR: Chapo Aguila MD _ SOURCE: URINE SPDESC: ORDERED: Urine Culture Procedure Result Reported Site Urine Culture Final 08/05/17- 1225 ML No growth of clinically significant organisms * ML - MAIN LAB ([facility]) . END OF REPORT * ML=Testing performed at Main Lab DEPARTMENT OF PATHOLOGY, [address] [place] [address] Tay Gambao M.D. Director [facility] # [id number] 109 Because ethnic data is not always [...] 5 Kidney failure <15 (or dialysis) 112 [id number] 113 SEE RESULT BELOW Name: ANGELINATARYN Cameron : [address]: Any Ramirez MD Acct: [id number] Unit: [id number] AGE: 52 Location: [facility] Re08/01/17 SEX: F Status: DEP ER SPEC: [id number] ANKUR: 08/01/17-125[facility] DR: Any Ramirez MD REQ: [id number] RECD: 08/02/17 STATUS: COMP [facility] DR: Chapo Aguila MD _ SOURCE: URINE SPDES: ORDERED: Urine Culture COMMENTS: [id number] Procedure Result Reported Site Urine Culture Final 08/03/17- 1251 ML Mixed seema; possible contamination. Suggest resubmission. * ML - MAIN LAB ([facility]) . END OF REPORT * ML=Testing performed at Main Lab DEPARTMENT OF PATHOLOGY, [address] [place] [address] Tay Gamboa M.D. Director [facility] # [id number] 114 Welder/Fabricator: [id number] 115 Welder/Fabricator: [id number] 116 Welder/Fabricator: [id number] 117 Welder/Fabricator: [id number] 118 Welder/Fabricator: [id number] 119 Welder/Fabricator: [id number] Procedures Date Code Description Status 07/21/2018 76356 Inhalation [place] For Acute Airway Obstruction Completed W/Nebulizer/Inhaler 11/03/2017 97926 EKG, Interpretation Only Completed 10/26/2017 [id number] Diabetic Retinal Eye Exam Completed 10/11/2017 14793 Inject/Drain Joint/Bursa Major W/O US Completed 06/03/2017 06506 Carpal Tunnel Release Completed 06/03/2017 85508 Carpal Tunnel Release Completed 05/01/2016 51584264 Mammogram Completed 04/06/2016 96373 EEG Recording Awake & Drowsy Completed 04/03/2016 71171 EKG, Interpretation Only Completed 04/29/2015 19921 EEG Recording Awake & Drowsy Completed 04/16/2012 52724 EKG, Interpretation Only Completed 04/16/2012 56576 EKG, Interpretation Only Completed Encounters Type Date Location Provider Dx Diagnosis Office Visit 10/26/2018 [place] [facility] Moreno Sandoval MD Z79.4 [facility] 4:00p [facility] (current) use of insulin E11.65 Type 2 diabetes mellitus with hyperglycemia E03.9 Hypothyroidism, unspecified Office Visit 10/19/2018 [facility] Internal Lawrence Simental M51.26 Other intervertebral 11:00a Jaylene Denson M.D.,FACP disc displacement, [address] lumbar region E11.65 Type 2 diabetes mellitus with hyperglycemia K59.00 Constipation, unspecified Office Visit 10/18/2018 1:15p Spine Navigator Consuelo Corrales, M51.26 Other intervertebral Of [facility] PA-C disc displacement, lumbar region 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, lumbosacral region Office Visit 10/02/2018 3:00p [facility] Jun Schroeder MD I10 Essential (primary) Medicine - [address] M54.16 Radiculopathy, lumbar region F17.211 Nicotine dependence, cigarettes, in remission E66.9 Obesity, unspecified B37.3 Candidiasis of vulva and vagina Office Visit 09/25/2018 3:00p Spine Navigator Consuelo Corrales M54.16 Radiculopathy, Of [facility] PA-C lumbar region Office Visit 09/06/2018 2:20p [facility] Jun Schroeder, I10 Essential ( primary) Medicine - [address] E11.65 Type 2 diabetes mellitus with hyperglycemia R19.7 Diarrhea, unspecified M54.41 Lumbago with sciatica, right side F17.210 Nicotine dependence, cigarettes, uncomplicated R68.84 Jaw pain F60.3 Borderline personality disorder Office Visit 07/26/2018 [facility] Internal Lawrence Simental J40 Bronchitis, not 2:40p Jaylene - Adelina Denson,FACP specified as acute [address] or chronic Office Visit 07/21/2018 [facility] Internal Rosa Schroeder MD J45.901 Unspecified asthma 11:40a Medicine - with (acute) [place] exacerbation X79.xxxA Intentional self-harm by blunt object, initial encounter I10 Essential (primary) hypertension M54.41 Lumbago with sciatica, right side F60.3 Borderline personality disorder T18.9xxA Foreign body of alimentary tract, part unsp, init encntr Office Visit 07/18/2018 11:00a [place] [facility] Moreno Sandoval Z79.4 [facility] [place] [facility] (current) use of insulin E11.65 Type 2 diabetes mellitus with hyperglycemia E03.9 Hypothyroidism, unspecified R15.2 Fecal urgency Office Visit 07/04/2018 1:00p [place] [facility] and Moreno Sandoval Z79.4 [facility] [place] [facility] (current) use of insulin E11.65 Type 2 diabetes mellitus with hyperglycemia E03.9 Hypothyroidism, unspecified R19.7 Diarrhea, unspecified T50.902D Poisoning by unsp drug/meds/biol subst, self-harm, subs Office Visit 07/03/2018 10:00a [facility] Internal Rosa Schroeder, E11.65 Type 2 [...] sciatica, right side Office Visit 05/22/2018 2:30p [facility] Internal Rosa Schroeder, R19.7 Diarrhea, Medicine - [address] L08.1 Erythrasma R15.1 Fecal smearing Office Visit 05/15/2018 1:30p [facility] Internal Rosa Schroeder, R19.7 Diarrhea, Medicine - [address] F17.210 Nicotine dependence, cigarettes, uncomplicated J45.909 Unspecified asthma, uncomplicated E11.65 Type 2 diabetes mellitus with hyperglycemia Z91.81 History of falling E11.9 Type 2 diabetes mellitus without complications Office Visit 05/08/2018 9:30a [facility] Internal Rosadevin ZapataSchroeder, E11.65 Type 2 diabetes Medicine - MD mellitus with [address] hyperglycemia R15.1 Fecal smearing I10 Essential (primary) hypertension R94.5 Abnormal results of liver function studies F33.3 Major depressv disorder, recurrent, severe w psych symptoms [facility] G92 Toxic encephalopathy 11:25a Assocmatthieu M.D. Hospitalists T50.904A Poisoning by unsp drug/meds/biol subst, undetermined, init F60.3 Borderline personality disorder R40.2432 [place] coma scale score 3-8, EMR Office Visit 11/03/2017 11:23a Intensivists Ishmael Dumont G92 Toxic encephalopathy Cheng, D.O. F60.3 Borderline personality disorder T50.904A Poisoning by unsp drug/meds/biol subst, undetermined, init R40.2432 [place] coma scale score 3-8, EMR Office Visit 11/02/2017 11:22a Intensivists Ishmael Dumont R40.2432 [place] coma Cheng, D.O. scale score 3-8, EMR G92 Toxic encephalopathy T50.904A Poisoning by unsp drug/meds/biol subst, undetermined, init F60.3 Borderline personality disorder Office Visit 10/18/2017 Orthopedic Naveed Lutz M75.31 Calcific tendinitis 9:00a Services Of MD Venec[place] of right shoulder C.M.A. Office Visit 10/13/2017 [facility] Internal Chapo E11.65 Type 2 diabetes 1:40p Medicine - [place], mellitus with Rd M.D. hyperglycemia Z12.31 Encntr screen mammogram for malignant neoplasm of breast Z12.11 Encounter for screening for malignant neoplasm of colon Office Visit 10/11/2017 Orthopedic Naveed F M75.31 Calcific tendinitis 1:30p Services Of [place] of right shoulder C.M.A. Office Visit 09/28/2017 [facility] Internal Chapo E11.65 Type 2 diabetes 1:20p Medicine Ayla, mellitus with M.D. hyperglycemia M79.645 Pain in left finger(s) E03.9 Hypothyroidism, unspecified Office Visit 09/19/2017 [facility] Internal Chapo E11.65 Type 2 diabetes 2:40p Jaylene Aguila M.D. mellitus with [address] hyperglycemia M54.5 Low back pain Office Visit 08/17/2017 2:10p [facility] Internal Lachelle F33.3 Major depressv Jaylene Berrios NP disorder, [address] recurrent, severe w psych symptoms R45.851 Suicidal ideations Office Visit 08/11/2017 1:20p [facility] Jun Aguila, F31.31 Bipolar Medicine - JuliaDJarred disorder, [address] current episode depressed, mild M51.16 Intervertebral disc disorders w radiculopathy, lumbar region K63.5 Polyp of colon K21.9 Gastro-esophageal reflux disease without esophagitis Office Visit 07/15/2017 11:00a [facility] Jun Cowan E11.9 Type 2 diabetes Jayleen Aguila M.D. 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 syndrome, left upper limb Office Visit 05/11/2017 Surgical Senia Lorne R10.9 Unspecified 10:45a [facility] MD abdominal pain Office Visit 06/14/2016 [facility] Rosi L02.91 Cutaneous 1:40p Assoc,matthieu Grant, INSURANCE ACTUARY abscess, Hospitalists unspecified E11.9 Type 2 diabetes mellitus without complications Z79.4 [facility] (current) use of insulin Office Visit 06/13/2016 1:39p [facility] Alexus Elliott L02.91 Cutaneous Assoc,matthieu SanchezPJarred abscess, Hospitalists unspecified E11.9 Type 2 diabetes mellitus without complications Z79.4 [facility] (current) use of insulin Office Visit 05/21/2016 [facility] T39.1x2A Poisoning by 3:25p Assocmatthieu M.D. 4-Aminophenol Hospitalists derivatives, self-harm, init E11.9 Type 2 diabetes mellitus without complications F79 Unspecified intellectual disabilities Office Visit 05/20/2016 [facility] T39.1x2A Poisoning by 3:24p Assocmatthieu M.D. 4-Aminophenol Hospitalists derivatives, self-harm, init E11.9 Type 2 diabetes mellitus without complications F79 Unspecified intellectual disabilities Office Visit 05/19/2016 [facility] T39.1x2A Poisoning by 3:24p Assocmatthieu M.D. 4-Aminophenol Hospitalists derivatives, self-harm, init E11.9 Type 2 diabetes mellitus without complications F79 Unspecified intellectual disabilities Office Visit 05/18/2016 [facility] T39.1x2A Poisoning by 3:23p Assocmatthieu M.D. 4-Aminophenol Hospitalists derivatives, self-harm, init E11.9 Type 2 diabetes mellitus without complications F79 Unspecified intellectual disabilities [facility] Poisoning by 3:23p Assocmatthieu M.D. 4-Aminophenol Hospitalists derivatives, self-harm, init E11.9 Type 2 diabetes mellitus without complications F79 Unspecified intellectual disabilities Office Visit 05/16/2016 [facility] Ml T39.1x2A Poisoning by 3:22p Assmatthieu drake M.D. 4-Aminophenol Hospitalists derivatives, self-harm, init E11.9 Type 2 diabetes mellitus without complications F79 Unspecified intellectual disabilities Office Visit 05/15/2016 [facility] Ml T39.1x2A Poisoning by 3:22p Assocmatthieu M.D. 4-Aminophenol Hospitalists derivatives, self-harm, init E11.9 Type 2 diabetes mellitus without complications F79 Unspecified intellectual disabilities Office Visit 05/14/2016 [facility] Yara T39.1x2A Poisoning by 3:22p Assoc,matthieu Daly DGelacio. 4-Aminophenol Hospitalists derivatives, self-harm, init E11.9 Type 2 diabetes mellitus without complications F79 Unspecified intellectual disabilities Office Visit 05/13/2016 [facility] Yara T39.1x2A Poisoning by 3:21p Assoc,matthieu Daly D.O. 4-Aminophenol Hospitalists derivatives, self-harm, init E11.9 Type 2 diabetes mellitus without complications F79 Unspecified intellectual disabilities Office Visit 05/12/2016 [facility] Yara T39.1x2A Poisoning by 3:21p Assoc,matthieu Daly D.O. 4-Aminophenol Hospitalists derivatives, self-harm, init E11.9 Type 2 diabetes mellitus without complications F79 Unspecified intellectual disabilities Office 05/11/2016 [facility] Benjamin T39.1x2A Poisoning by Visit 3:20p Assoc,RAÚL Brewer 4-Aminophenol Hospitalists derivatives, self-harm, init E11.9 Type 2 diabetes mellitus without complications F79 Unspecified intellectual disabilities Office Visit 05/03/2016 [facility] Anu R73.9 Hyperglycemia, 11:09a Assoc,matthieu Diaz, DO unspecified Hospitalists J40 Bronchitis, not specified as acute or chronic G89.4 Chronic pain syndrome Office Visit 04/07/2016 3:52p [facility] Ml R40.4 Transient Assoc,matthieu Mosquera M.D. alteration of Hospitalists awareness E13.9 Other specified diabetes mellitus without complications F79 Unspecified intellectual disabilities Z91.19 Patient's noncompliance w oth medical treatment and regimen Office Visit 04/06/2016 3:52p [facility] Ml R40.4 Transient Assoc,matthieu Mosquera M.D. alteration of Hospitalists awareness E13.9 Other specified diabetes mellitus without complications F79 Unspecified intellectual disabilities Z91.19 Patient's noncompliance w oth medical treatment and regimen Office Visit 04/05/2016 3:51p [facility] Yara R40.4 Transient Assoc,pc Addy, D.O. alteration of Hospitalists awareness E13.9 Other specified diabetes mellitus without complications F79 Unspecified intellectual disabilities Z91.19 Patient's noncompliance w oth medical treatment and regimen Office Visit 04/04/2016 3:51p [facility] Yara R40.4 Transient Assoc,pc Addy, D.O. alteration of Hospitalists awareness E13.9 Other specified diabetes mellitus without complications F79 Unspecified intellectual disabilities Z91.19 Patient's noncompliance w oth medical treatment and regimen Office Visit 04/03/2016 3:50p [facility] Rosi R40.4 Transient Assoc,pc Juanita, INSURANCE ACTUARY alteration of Hospitalists awareness E13.9 Other specified diabetes mellitus without complications F79 Unspecified intellectual disabilities Z91.19 Patient's noncompliance w oth medical treatment and regimen Office Visit 10/01/2015 10:08a [facility] Gray M54.31 Sciatica, right Assoc,matthieu Conn, N.P. side Hospitalists E11.9 Type 2 diabetes mellitus without complications F60.3 Borderline personality disorder Office Visit 09/28/2015 10:06a [facility] Ml M54.31 Sciatica, right Assoc,matthieu Mosquera M.D. side Hospitalists E11.9 Type 2 diabetes mellitus without complications Office Visit 04/24/2015 [facility] Conner 276.1 Hyposmolality & Or 1:31p matthieu Lowe M.D. Hyponatremia Hospitalists 296.7 Bipolar I Disorder Current NOS 301.83 Borderline Personality Disorder Office Visit 04/23/2015 [facility] Conner 276.1 Hyposmolality & Or 1:30p matthieu Lowe M.D. Hyponatremia Hospitalists 250.00 Diabetes Mellitus W/O Compl Type II Or Unspec Controlled 296.7 Bipolar I Disorder Current NOS 301.83 Borderline Personality Disorder Office Visit 04/22/2015 [facility] Quique 276.1 Hyposmolality & Or 1:29p Assocmatthieu M.D. Hyponatremia Hospitalists 250.00 Diabetes Mellitus W/O Compl Type II Or Unspec Controlled 301.83 Borderline Personality Disorder Office Visit 04/21/2015 [facility] Gray 276.1 Hyposmolality & Or 1:28p Assoc,matthieu Conn NJarredPJarred Hyponatremia Hospitalists 296.7 Bipolar I Disorder Current NOS 301.83 Borderline Personality Disorder 250.00 Diabetes Mellitus W/O Compl Type II Or Unspec Controlled Office Visit 11/27/2014 [facility] Sherita 244.9 Hypothyroidism 8:42a Assocmatthieu M.D. Other Unspec Hospitalists 250.02 Diabetes Mellitus W/O Compl Type II Or Unspec Type Uncontrol 301.83 Borderline Personality Disorder Office Visit 04/17/2012 [facility] 969.09 Poisoning By Other 4:07p Assocmatthieu D.O. Antidepressants Hospitalists 300.9 Nonpsychotic Disorders NOS 311 Depressive Disorder Not Elsewhere Spec Office 04/16/2012 [facility] 969.09 Poisoning By Other Visit 4:35p Assocmatthieu M.D. Antidepressants Hospitalists 300.9 Nonpsychotic Disorders NOS 311 Depressive Disorder Not Elsewhere Spec V11.1 History Personal Affective Disorder Office Visit 10/18/2009 1:00a [facility] Jase Jesus, 789.00 Pain Abdominal Assocmatthieu M.D. Unspec Site Hospitalists 787.03 Vomiting Alone 790.29 Other Abnormal Glucose 250.02 Diabetes Mellitus W/O Compl Type II Or Unspec Type Uncontrol Office Visit 10/17/2009 3:00a [facility] Jase Jesus, 790.29 Other Abnormal Assocmatthieu M.D. Glucose Hospitalists 789.00 Pain Abdominal Unspec Site 295.70 Schizoaffective Disorder NOS 401.9 Hypertension Unspec Office Visit 10/16/2009 12:15a [facility] Sherita 790.29 Other Abnormal Assocmatthieu M.D. Glucose Hospitalists 296.80 Bipolar Disorder NOS Plan of Treatment Future Appointment(s):12/22/2018 11:00 am - Marissa Samuel MD at [facility]03/23/2019 1:40 pm - Rosa Schroeder MD at [facility] Internal Phjjpnba73/25/2019 11:40 am - Moreno Sandoval MD at [facility]01/02/2019 2:40 pm - Rosa Schroeder MD at [facility] Internal Uvnbnzgt42/22/2019 - RAÚL Gardiner-C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, lumbosacral regionFollow up:With Dr. Samuel for surgical consult
--- OUTSIDE RECORDS SUMMARY | 2019-01-01 20:20 | XMS REPORT | Continuity of Care Document ---
:1965 External Reference #:[id number] Author Name Dimas Tomlinson Care Team Providers Name Role Phone Rosa Schroeder M.D. Primary Care Physician Unavailable Payers Date Identification Numbers Payment Provider Subscriber Effective: 1991 Policy Number: [id number] Medicare Cecilio Alfaro PayID: [id number] [address] [place] [address] Policy Number: [id number] Medicaid Cecilio Alfaro Group Name: 1 1 [address] PayID: [id number] [place] [address] Problems Active Problems Provider Date Type 2 [...] Chapo Aguila M.D. Onset: 08/11/2017 Pancreatitis Rosa cShroeder MD Onset: 05/15/2018 Family History Date Family Member(s) Observation Comments General Cancer Father Depression Father due to Operative () - after colonoscopy Complications Father Cancer Mother Alive And Well Social History Type Date Description Comments Sex Unknown Marital Status also with severe mental illness Lives With Assisted living [facility] since March 2018. Was at [facility] from October-Apr 2018 Occupation Unemployed [...] dizziness 05/10/2017 Tramadol altered mental status 05/10/2017 [place] 05/10/2017 Lurasidone Moderate 05/08/2018 Metformin Diarrhea 05/22/2018 [...] for 1units M51.26 Rosa Schroeder MD 11/17/2018 [facility] ambulation 4 prong Cyclobenzaprine HCL take 1 [...] Holes/5" use as directed Adelina Denson,FACP 5" [facility] Fluconazole 1 tab by mouth x 2tabs [...] MD 09/04/2018 Lancets Extra Fine 33G day [facility] Arnuity Ellipta 1 puff inhaled 30units Rosa Schroeder MD 07/26/2018 every day 100mcg/Act Aerosol Depend Adjustable use four times a 120units Rosa Schroeder MD 07/03/2018 Underwear L/XL day [facility] Flonase Allergy Relief 2 sprays in each 9.900ml [facility] 06/23/2018 nostril twice a Adelina Marquez [...] twice daily 90gm Rosa Schroeder MD 05/15/2018 [id number] until rash clears Powder Ventolin HFA 2 [...] needed Maalox Max 30 milliliters by Unknown [phone] mouth q4hr as Suspension needed indigestion Cetirizine [...] Percocet 1 - 2 tabs by 60tabs Dylna Lazar, 5-325mg Tablets mouth every 4 - [...] - 250mg Tablets day, then 1 every [place], 07/31/2018 day M.D.,FACP Levothyroxine Sodium take 175mcg daily 30tabs E03.9 Moreno Sandoval 2017 - 175mcg on an empty MD 10/26/2018 Tablets stomach Methylprednisolone take as instructed 21units Miguel 06/29/2018 - 4mg TBPK per medrol dose MD Jonah 07/21/2018 pack instructions Naproxen take 1 tablet 14tabs Lawrence Simental 06/29/2018 - 500mg Tablets twice daily with [place], 10/02/2018 food prn Adelina,FACP Mucinex DM one [...] ambulate daily for 10/19/2018 unsteady gait -08/08" [facility] Shower Chair use when taking a 1units [...] Schroeder, 05/08/2018 - Underwear L/XL day 07/03/2018 [facility] Exercise Pt allowed to E11.65 Rosa Schroeder, 05/08/2018 - engage in exercise 07/03/2018 at facilities under direct supervision of staff Tresiba Flextouch 100 units at 15ml E11.65 [place] 10/13/2017 - 100Unit/ML bedtime Gerryika, 05/08/2018 Solution Pen-Inject MMarkel Losartan Potassium 1 by mouth once a 30tabs E11.65 [place] 10/13/2017 - 25mg day Pachikara, 05/08/2018 Tablets M.D. Hydrocodone-Acetaminophe 1 tab every 12h as 20tabs [place] 10/10/2017 - n needed Pachikara, 05/08/2018 5-325mg Tablets M.D. Tresiba Flextouch 60 units at 15ml E11.65 [place] 09/19/2017 - 100Unit/ML bedtime Pachikara, 10/13/2017 Solution Pen-Inject MMarkel Onetouch Ultra Mini test up to three 100units E11.9 Lawrence Simental 2017 - Strips times daily last [place], 09/09/2017 visit:08/17/17 Adelina,FACP Onetouch Ultra Mini check bs twice 100units [place] 08/31/2017 - Lancets daily Pachlaine, 05/08/2018 Adelina Onetouch Ultrasoft test blood 2-3 a 100units E11.9 Lawrence Simental 2017 - Lancets day or as needed [place], 09/04/2018 Misc Adelina,FACP Mucinex 1 po bid prn 20tabs Lawrence Simental 08/28/2017 - 600mg Tablets ER 12HR [place], 05/08/2018 Adelina,FACP Doxycycline Monohydrate 1 by mouth twice a 13caps Unknown 08/28/2017 - 100mg day x 7 days 09/04/2017 Capsules Tresiba Flextouch 30u SC in Am and 18ml Lawrence Simental 08/26/2017 - 200Unit/ML 70u SC in PM [place], 09/19/2017 Solution Pen-Inject Adelina,FACP Azithromycin 2 tabs by mouth on Unknown 08/26/2017 - 250mg Tablets day 1; 1 tab by 08/31/2017 mouth every day on days 2-5 Tramadol HCL 1 tab by mouth 30tabs Lawrence Simental 08/26/2017 - 50mg Tablets three times a day [place], 09/28/2017 Adelina,FACP Fluconazole one by mouth november 2tabs Lawrence Simental 08/22/2017 - 150mg Tablets repeat in 3 days [place], 05/08/2018 as needed Adelina,FACP Lancets 28G use with one touch 100units [place] 08/08/2017 - 28G Misc meter, check bs Pachika, 08/31/2017 daily MMarkel Onetouch test twice daily 100units [place] 08/08/2017 - Strips and as needed [facility], 08/31/2017 Adelina Janumet 1 by mouth twice a 60tabs E11.9 Chapo 07/15/2017 - 50-500mg Tablets day Ayla, 05/08/2018 Adelina Glucocom Blood Glucose one touch 1units Erik 07/03/2017 - Monitoring System glucometer to Adelina Walls 08/31/2017 W/Device measure blood Kit sugar daily Clotrimazole apply twice daily 90gm B37.9 [place] 06/13/2017 - 1% Cream Ayla 05/08/2018 MJarredDJarred Nicotrol use 4-5 times 168units F17.21 [place] 06/13/2017 - 10mg Inhaler daily 0 Ayla 05/08/2018 M.DJarred Acetaminophen-Codeine #3 1 tab by mouth 20tabs [place] 05/26/2017 - every 4-6 hours as Ayla [...] off Lantus Solostar 40 units twice 45ml Orsa Schroeder, - 100Unit/ML daily 05/22/2018 Solution Pen-Inject [...] Atorvastatin Calcium take one tablet by 90tabs [place] - 40mg mouth every day Pachikara, 05/08/2018 Tablets Adelina Lantus Solostar 30 units SC in Am, 15ml Lawrence Simental - 100Unit/ML and 70 units SC a [place], 08/26/2017 Solution Pen-Inject hs Adelina,FACP Naproxen twice daily 60tabs [place] - [facility] 07/15[facility]2017 Gabriel.Kamille Levothyroxine Sodium 1 tab daily am in 90tabs [place] - 200mcg the empty stomach Pachika, 05/08/2018 Tablets Gabriel.Kamille Levothyroxine Sodium 1 tab daily in the 90tabs [place] - 50mcg empty stomach Pachika, 05/08/2018 Tablets [...] Pantoprazole Sodium take 1 tablet by 30tabs [place] - 40mg mouth once daily Pachika, 05/08/[address] Sahu Ondansetron every 6-8 hours as Home, - 8mg Tablets needed LUZ Newman 05/08/2018 Dispers Ibuprofen as needed Home, - 600mg Tablets LUZ Newman 05/08/2018 Medications Administered in Office Medication SIG Qnty Indications Ordering Provider Date Depomedrol 40MG Naveed Cuadra MD 10/11/2017 Injection Immunizations CPT Code Status Date Vaccine Lot # [id number] Given 05/01/2018 Influenza Virus Vaccine, Quadrivalent, Split, Preservative Free Vital Signs Date Vital Result Comment 12/20/2018 8:05am Height 67 inches 5'7" Weight [...] 204 mg/dL High 70-100 [address] [place] [address] [phone] Laboratory test 12/15/2018 [facility] Point of Care 112 mg/dL High 70-100 [address] [place] [address] [phone] Laboratory test 12/15/2018 [facility] Lactic Acid 1.3 mmol/L N 0.5-2.0 3 finding [address] [place] [address] [phone] Comp Metabolic 12/15/2018 [facility] Sodium 142 mmol/L N 135- 145 Panel 101 [place] [address] [phone] Potassium 4.0 mmol/L N 3.5-5.0 Chloride 107 [...] Low 11.0 -82.[address] [place] [address] [phone] CBC Auto Diff 12/15/2018 [facility] White Blood 12.0 High 3.5- 10.[address] Count 10^3/[place] [address] [phone] Red Blood Count 4.36 10^6/uL N 3.70-4.87 [...] 0.04 [address] (TnI) [place] [address] [phone] Urine Culture And 12/14/2018 [facility] Urine Culture SEE RESULT [address] [place] [address] [phone] Laboratory test 12/14/2018 [facility] Lactic Acid 1.5 mmol/L N 0.5-2.0 [address] [place] [address] [phone] Urinalysis Profile 12/14/2018 [facility] Urine Color Yellow [address] [place] [address] [phone] Urine Appearance Clear Urine Specific Fulda 1.004 Low 1.010-1.030 Urine pH 6.0 N [...] Magnesium 1.6 mg/dL Low 1.9-2.7 finding [address] [place] [address] [phone] Amylase 33 U/L N 29-103 Lipase < 10 U/L Low 11.0-82.0 C Reactive Protein 3.27 mg/L N <8.01 HCG 2.75 mIU/mL 9 Comp Metabolic Panel 12/14/2018 [facility] Sodium 142 mmol/L N 135-145 [address] [place] [address] [phone] Potassium 4.0 mmol/L N 3.5-5.0 Chloride 110 [...] Partial 23.9 seconds Low 26.0-36.3 finding 101 [facility] [place] [place] [address] PTT [phone] Troponin-I (TnI) 0.01 ng/mL <0.04 11 Inr/Protime 12/14/2018 [facility] Inr 0.89 N 0.82-1.[address] [place], [place] [address] [phone] CBC Auto Diff 12/14/2018 [facility] White Blood 13.8 High 3.5- 10.[address] Count 10^3/[place] [address] [phone] Red Blood Count 4.50 10^6/uL N 3.70-4.87 [...] 70-100 [address] [place] [address] [phone] Laboratory test 12/14/2018 [facility] Troponin-I 0.01 ng/mL < 0.04 [address] (TnI) [place] [address] [phone] B-Type Natriuretic Peptide BNP 10 pg/mL <=100 Comp Metabolic Panel 12/14/2018 [facility] Sodium 137 mmol/L N 135-[address] [place] [address] [phone] Potassium 4.3 mmol/L N 3.5-5.0 Chloride 105 [...] 1.6 mmol/L N 0.5-2.0 [address] [place] [address] [phone] CBC Auto Diff 12/14/2018 [facility] White Blood 9.6 10^3/uL N 3.5-10.[address] [place] [address] [phone] Red Blood Count 4.05 10^6/uL N 3.70-4.87 [...] 10^3/uL N 3.5-10.[address] [place] [address] [phone] Red Blood Count 4.43 10^6/uL N 3.70-4.87 [...] 139 mmol/L N 135-[address] [place] [address] [phone] Chloride 106 mmol/L N 101-111 Co2 Carbon [...] Center Amylase 23 U/L Low 29-103 [address] [place] [address] [phone] Lipase < 10 U/L Low 11.0-82.0 Laboratory test 12/05/2018 [facility] Acetaminophen < 15 g/mL 18 finding [address] [place] [address] [phone] Alcohol < 10 mg/dL N <10 Salicylate < 2.50 mg/dL <30 TSH (Thyroid Stim Horm) 8.38 mcIU/mL High 0.34-5.60 Comp Metabolic Panel 12/05/2018 [facility] Sodium 139 mmol/L N 135-145 [address] [place] [address] [phone] Potassium 3.9 mmol/L N 3.5-5.0 Chloride 107 [...] High 3.5-10.[address] [place] [address] [phone] Red Blood Count 4.65 10^6/uL N 3.70-4.87 [...] 70-100 [address] [place] [address] [phone] Laboratory test 11/21/2018 [facility] Point of Care 56 mg/dL Low 70-100 [address] [place] [address] [phone] Urinalysis 11/21/2018 [facility] Urine Color Yellow Profile [address] [place] [address] [phone] Urine Appearance Cloudy Urine Specific Fulda 1.016 N 1.010-1.030 Urine pH 6.0 N [...] RESULT [address] [place] [address] [phone] Laboratory test 10/26/2018 [facility] Glucose Random 158 finding Hemoglobin A1c 8.0 High 5-7 Laboratory test 08/22/2018 [facility] Point of 202 mg/dL High 70-100 [address] [place] [address] [phone] CBC Auto Diff 08/22/2018 [facility] White Blood 10.7 N 3.5- 10.[address] Count 10^3/[place] [address] [phone] Red Blood Count 4.66 10^6/uL N 4.00-5.40 [...] 139 mmol/L N 135-[address] [place] [address] [phone] Potassium 4.7 mmol/L N 3.5-5.0 Chloride 104 [...] Egfr 73.8 >60 24 Laboratory test 08/22/2018 [facility] Acetaminophen < 15 g/mL 25 finding [address] [place] [address] [phone] Alcohol < 10 mg/dL N <10 Salicylate < 2.50 mg/dL <30 TSH (Thyroid Stim Horm) 8.26 mcIU/mL High 0.34-5.60 Laboratory test 08/22/2018 [facility] Point of 321 mg/dL High 70-[address] [place] [address] [phone] CBC Auto Diff 08/19/2018 [facility] White Blood 9.3 N 3.5- 10.[address] Count 10^3/[place] [address] [phone] Red Blood Count 4.42 10^6/uL N 4.00-5.40 [...] 139 mmol/L N 135-[address] [place] [address] [phone] Chloride 108 mmol/L N 101-111 Co2 Carbon [...] 2.61 mIU/mL [address] [place] [address] [phone] Acetaminophen < 15 g/mL 29 Alcohol < 10 mg/dL N <10 Salicylate < 2.50 mg/dL <30 TSH (Thyroid Stim Horm) 7.94 mcIU/mL High 0.34-5.60 Laboratory 08/17/2018 [facility] Point of Care 145 mg/dL High 70-100 30 test finding [address] [place] [address] [phone] Laboratory 08/15/2018 [facility] Miscellaneous See 31, test finding [address] Test Comment 32 [place] [address] [phone] Comp 07/31/2018 [facility] Sodium 136 mmol/L N 135-145 [address] [place] [address] [phone] Potassium 4.9 mmol/L N 3.5-5.0 Chloride 104 [...] 113 mg/dL 35 (Trig/Chol/HDL) [address] [place] [address] [phone] Cholesterol 94 mg/dL 36 HDL Cholesterol 34.8 mg/dL 37 LDL Cholesterol 37 mg/dL 38 Laboratory test finding 07/31/2018 [facility] GGTP 50 U/L N 9- 64.[address] [place] [address] [phone] Hemoglobin A1c (Glyco HGB) 8.3 % High 4.0-5.6 40 Laboratory test 07/20/2018 [facility] Point of Care 78 mg/dL N 70-100 [address] [place] [address] [phone] CBC Auto Diff 07/20/2018 [facility] White Blood 8.8 10^3/uL N 3.5-10.[address] [place] [address] [phone] Red Blood Count 4.30 10^6/uL N 4.00-5.40 [...] 140 mmol/L N 135-[address] [place] [address] [phone] Potassium 4.0 mmol/L N 3.5-5.0 Chloride 108 mmol/L N 101-111 Co2 Carbon Dioxide 26 mmol/L N 22-32 Anion Gap 6 mmol/L N 2-11 Glucose 82 mg/dL N 70-100 Blood Urea Nitrogen 13 mg/dL N 6-24 Creatinine 0.71 mg/dL N 0.51-0.95 BUN/Creatinine Ratio 18.3 N 8-20 Calcium 9.3 mg/dL N 8.6-10.3 Egfr Non- 86.4 >60 Egfr 104.6 >60 42 CBC Auto 07/10/2018 [facility] White Blood 14.1 10^3/uL High 3.5-10.[address] [place] [address] [phone] Red Blood Count 4.77 10^6/uL N 4.00-5.40 [...] Medical Center Urine Color Yellow [address] [place] [address] [phone] Urine Appearance Cloudy Urine Specific Fulda 1.017 N 1.010-1.030 Urine pH 5.0 N [...] Sodium 136 mmol/L N 135-145 [address] [place] [address] [phone] Potassium 4.6 mmol/L N 3.5-5.0 Chloride 102 [...] Egfr 65.9 >60 43 Laboratory test 07/10/2018 [facility] Acetaminophen < 15 g/mL [address] [place] [address] [phone] Alcohol < 10 mg/dL N <10 Salicylate < 2.50 mg/dL <30 TSH (Thyroid Stim Horm) 9.45 mcIU/mL High 0.34-5.60 Urine Drug 07/10/2018 [facility] Amphetamine Ur None Detected None Detect SCR ED & [address] [place] [address] [phone] Barbiturates Urine Screen None Detected None Detect Benzodiazepine Urine Screen None Detected None Detect Urine Cannabinoids Screen None Detected None Detect Urine Cocaine Screen None Detected None Detect Urine Opiates Screen None Detected None Detect Urine Phencyclidine Screen None Detected None Detect 45 Urine Culture 07/10/2018 [facility] Urine Culture SEE RESULT [address] [place] [address] [phone] Laboratory test 06/26/2018 [facility] Point of Care 143 mg/dL High 70-100 [address] [place] [address] [phone] Laboratory test 06/26/2018 [facility] Point of Care 72 mg/dL N 70-100 [address] [place] [address] [phone] Laboratory test 06/26/2018 [facility] Point of Care 98 mg/dL N 70-100 [address] [place] [address] [phone] Urine Drug SCR 06/26/2018 [facility] Amphetamine Ur None None ED [facility] [address] [place] [address] [phone] Barbiturates Urine Screen None Detected None Detect Benzodiazepine Urine Screen None Detected None Detect Urine Cannabinoids Screen None Detected None Detect Urine Cocaine Screen None Detected None Detect Urine Opiates Screen None Detected None Detect Urine Phencyclidine Screen None Detected None Detect 50 CBC Auto 06/26/2018 [facility] White Blood 10.9 10^3/uL High 3.5-10.[address] [place] [address] [phone] Red Blood Count 4.42 10^6/uL N 4.00-5.40 [...] 137 mmol/L N 135-[address] [place] [address] [phone] Potassium 4.3 mmol/L N 3.5-5.0 Chloride 105 [...] Egfr 95.6 >60 51 Urinalysis Profile 06/26/2018 [facility] Urine Color Straw [address] [place] [address] [phone] Urine Appearance Clear Urine Specific Fulda 1.005 Low 1.010-1.030 Urine pH 6.0 N 5-9 Urine Urobilinogen Negative Negative Urine Ketones Negative Negative Urine Protein Negative Negative Urine Leukocytes Negative Negative Urine Blood Negative Negative Urine Nitrite Negative Negative Urine Bilirubin Negative Negative Urine Glucose Negative Negative Laboratory test 06/26/2018 [facility] Acetaminophen < 15 g/mL 52 finding [address] [place] [address] [phone] Alcohol < 10 mg/dL N <10 Salicylate < 2.50 mg/dL <30 Lactic Acid 0.9 mmol/L N 0.5-2.0 53 CBC Auto Diff 05/18/2018 [facility] White Blood 10.8 10^3/uL N 3.5-10.[address] [place] [address] [phone] Red Blood Count 4.33 10^6/uL N 4.00-5.40 [...] 139 mmol/L N 135-[address] [place] [address] [phone] Potassium 4.5 mmol/L N 3.5-5.0 Chloride 107 [...] Low 11.0 -82.[address] [place] [address] [phone] Lactic Acid 1.1 mmol/L N 0.5-2.0 55 Laboratory test 05/15/2018 [facility] C Difficile PCR SEE RESULT [address] [place] [address] [phone] Laboratory test 05/11/2018 [facility] Glucose 342 mg/dL High 70-[address] Confirmatory 00 [place] [address] [phone] Laboratory test 05/11/2018 [facility] Point of Care 402 mg/dL High 70-1 [address] Glucose 00 [place] [address] [phone] Laboratory test 05/11/2018 [facility] Point of Care 426 mg/dL High 70-1 [address] Glucose 00 [place] [address] [phone] CBC Auto Diff 05/10/2018 [facility] White Blood Count 12.0 High 3.5- [address] 10^3/uL 10.8 [place] [address] [phone] Red Blood Count 4.39 10^6/uL N 4.00-5.40 [...] 141 mmol/L N 135-[address] [facility] [address] [phone] Potassium 4.9 mmol/L N 3.5-5.0 Chloride 107 [...] 10 U/L Low 11.0 -82.0 finding 101 [place] [address] [phone] C Reactive Protein 6.43 mg/L N <8.01 Lactic Acid 1.2 mmol/L N 0.5-2.0 60 Urine Microalbumin 05/08/2018 [facility] Ur Microalbumin < 15.0 Random 101 [facility] (mg/L) [place] [address] [phone] Urine Creatinine 224.47 mg/dL Urine Microalbumin/Creatinine TNP <31 61 Laboratory test 05/08/2018 [facility] Hemoglobin A1c 9.7 High 5-7 finding Urinalysis Profile 11/02/2017 [facility] Urine Color Yellow [address] [place] [address] [phone] Urine Appearance Clear Urine Specific Fulda 1.018 N 1.010-1.030 Urine pH 5.0 N 5-9 Urine Urobilinogen Negative Negative Urine Ketones Negative Negative Urine Protein Negative Negative Urine Leukocytes Negative Negative Urine Blood Negative Negative Urine Nitrite Negative Negative Urine Bilirubin Negative Negative Urine Glucose 1+(50 mg/dL) Abnormal Negative Laboratory test 11/02/2017 [facility] Magnesium 1.9 mg/dL N 1.9-2.7 finding 101 [place] [address] [phone] Creatine Kinase(CK) 72 U/L N 10-223 Troponin-I (TnI) 0.03 ng/mL <0.04 Acetaminophen < 15 g/mL 62 Alcohol < 10 mg/dL N <10 Salicylate < 2.50 mg/dL <30 TSH (Thyroid Stim Horm) 1.79 mcIU/mL N 0.34-5.60 Urine Drug 11/02/2017 [facility] Amphetamine Ur None Detected None Detect SCR ED & [address] [address] [phone] Barbiturates Urine Screen None Detected None Detect Benzodiazepine Urine Screen None Detected None Detect Urine Cannabinoids Screen None Detected None Detect Urine Cocaine Screen None Detected None Detect Urine Opiates Screen Presumptive Posi <SEE NOTE> Abnormal None Detect 63 Urine Phencyclidine Screen None Detected None Detect 64 Arterial Blood Gas 11/02/2017 [facility] PH Arterial 7.36 N 7.35-7.[address] [place] [address] [phone] Pco2 Arterial 50 mmHg High 35-45 Po2 Arterial 65 mmHg Low 80-100 O2 Saturation Arterial 91.1 % Low 95-98 Base Excess Arterial 2.1 High -2.0-2.0 65 Hco3 Arterial 26.4 mmol/L N 19-31 Laboratory test finding 11/02/2017 [facility] Ammonia 37 ?mol/L N 16-[address] [place] [address] [phone] Lactic Acid 1.0 mmol/L N 0.5-2.0 66 Comp Metabolic 11/02/2017 [facility] Potassium 4.4 mmol/L N 3.5-5.[address] [place] [address] [phone] Chloride 107 mmol/L N 101-111 Co2 Carbon [...] mmol/L N 2-11 CBC Auto Diff 11/02/2017 [facility] White Blood 8.5 10^3/uL N 3.5-10.[address] [place] [address] [phone] Red Blood Count 4.40 10^6/uL N 4.0-5.4 [...] Cells % 0 CBC Auto Diff 10/02/2017 [facility] White Blood 10.3 10^3/uL N 3.5-10.[address] [place] [address] [phone] Red Blood Count 4.29 10^6/uL N 4.0-5.4 [...] Center Sodium 136 mmol/L N 133-145 [address] [place] [address] [phone] Potassium 4.5 mmol/L N 3.5-5.0 Chloride 103 [...] mg/L [address] [place] [address] [phone] Laboratory test 09/28/2017 [facility] Hemoglobin A1c 9.1 High 5-7 finding Laboratory test 09/13/2017 [facility] Point of Care 179 mg/dL High 70-10 [address] Glucose 0 [place] [address] [phone] Laboratory test 09/13/2017 [facility] Point of Care 260 mg/dL High 70-10 [address] Glucose 0 [place] [address] [phone] Comp Metabolic 08/29/2017 [facility] Sodium 136 N 133-[address] mmol/L 45 [place] [address] [phone] Potassium 4.9 mmol/L N 3.5-5.0 Chloride 104 [...] Low 11.0 -82.[address] [place] [address] [phone] CRP High Sensitivity 1.79 mg/L 73 Troponin-I (TnI) 0.00 ng/mL <0.04 Laboratory test 08/29/2017 [facility] B-Type 21 pg/mL [address] [place] [address] Peptide BNP [phone] CBC Auto Diff 08/29/2017 [facility] White Blood Count 9.1 10^3/ uL N 3.5-[address] 0.8 [place] [address] [phone] Red Blood Count 4.06 10^6/uL N 4.0-5.4 [...] Cells % 0 Comp Metabolic Panel 08/26/2017 [facility] Sodium 139 mmol/L N 133-[address] [place] [address] [phone] Potassium 5.0 mmol/L N 3.5-5.0 Chloride 105 [...] Inr 0.82 N 0.77-1.[address] [place] [address] [phone] Laboratory test 08/26/2017 [facility] Partial 27.7 seconds N 26.0-36.[address] [place] [address] PTT [phone] CBC Auto Diff 08/26/2017 [facility] White Blood 9.0 10^3/uL N 3.5-10.[address] [place] [address] [phone] Red Blood Count 4.42 10^6/uL N 4.0-5.4 [...] <0.[address] (TnI) ng/[place] [address] [phone] Laboratory test 08/25/2017 [facility] C Reactive 3.27 mg/L N < 5.00 [address] [place] [address] [phone] Venous Blood 08/25/2017 [facility] Venous Blood 7.48 High 7.33 -7.[address] [place] [address] [phone] Venous Pco2 31 mmHg Low 41-51 Venous Po2 98 mmHg High 35-45 Venous O2 Saturation 95.3 % High 70-80 Venous Blood Base Excess 0.1 N 0-4 77 Venous Bicarbonate Hco3 25.0 mmol/L N 24-28 CBC Auto Diff 08/25/2017 [facility] White Blood 8.9 10^3/uL N 3.5-10.[address] [place] [address] [phone] Red Blood Count 4.33 10^6/uL N 4.0-5.4 [...] Blood Cells % 0 Laboratory test 08/25/2017 [facility] Point of 289 mg/dL High 70-100 78 finding 101 [facility] [place] [address] [phone] Comp Metabolic 08/25/2017 [facility] Sodium 134 mmol/L N 133- 145 Panel [address] [place] [address] [phone] Potassium 4.8 mmol/L N 3.5-5.0 Chloride 101 [...] Egfr 88.3 >60 79 Urinalysis Profile 08/25/2017 [facility] Urine Color Yellow [address] [place] [address] [phone] Urine Appearance Clear Urine Specific Fulda 1.010 N 1.010-1.030 Urine pH 5.0 N 5-9 Urine Urobilinogen Negative Negative Urine Ketones Negative Negative Urine Protein Negative Negative Urine Leukocytes Negative Negative Urine Blood Negative Negative Urine Nitrite Negative Negative Urine Bilirubin Negative Negative Urine Glucose 3+(>=500 mg/dL) Abnormal Negative Laboratory test 08/25/2017 [facility] Point of 157 mg/dL High 70-100 80 finding 101 [place] [address] [phone] Laboratory test 08/23/2017 [facility] Point of 224 mg/dL High 70-100 81 finding 101 [facility] [place] [address] [phone] Laboratory test 08/22/2017 [facility] Lactic Acid 1.3 mmol/L N 0.5-2.0 82 finding 101 [place] [address] [phone] Comp Metabolic 08/22/2017 [facility] Sodium 131 mmol/L Low 133 -145 Panel 101 [place] [address] [phone] Potassium 4.6 mmol/L N 3.5-5.0 Chloride 98 [...] mg/dL High 70-100 84 Laboratory test 08/22/2017 [facility] Magnesium 2.0 mg/dL N 1.9-2.7 finding 101 [place] [address] [phone] Creatine Kinase(CK) 121 U/L N 10-223 C Reactive Protein 4.62 mg/L N < 5.00 85 Troponin-I (TnI) 0.01 ng/mL <0.04 Laboratory test 08/22/2017 [facility] Glucose 417 mg/dL High 70-100 finding 101 [place] [address] [phone] Laboratory test 08/22/2017 [facility] Point of > 444 mg/dL High 70-100 86 finding 101 [facility] [place] [address] [phone] Urinalysis 08/22/2017 [facility] Urine Color Yellow Profile [address] [place] [address] [phone] Urine Appearance Cloudy Urine Specific Fulda 1.023 N 1.010-1.030 Urine pH 6.0 N [...] [facility] Urine Culture SEE RESULT [address] [place] [address] [phone] CBC Auto Diff 08/22/2017 [facility] White Blood 8.9 10^3/uL N 3.5-[address] Count 0.8 [place] [address] [phone] Red Blood Count 4.19 10^6/uL N 4.0-5.4 [...] Venous Blood pH 7.42 N 7.33-7.43 [address] [place] [address] [phone] Venous Pco2 49 mmHg N 41-51 Venous Po2 36 mmHg N 35-45 Venous O2 Saturation 78.1 % N 70-80 Venous Blood Base Excess 6.3 High 0-4 88 Venous Bicarbonate Hco3 29.4 mmol/L High 24-28 Inr/Protime 08/22/2017 [facility] Inr 0.91 N 0.77-1.02 [address] [place], [place] [phone] Laboratory test 08/18/2017 [facility] Point of 180 mg/dL High 70-100 89 finding [facility] [place] [address] Glucose [phone] Urinalysis 08/17/2017 [facility] Urine Color Yellow Profile [address] [place] [address] [phone] Urine Appearance Cloudy Urine Specific Fulda 1.016 N 1.010-1.030 Urine pH 5.0 N 5-9 Urine Urobilinogen Negative Negative Urine Ketones Negative Negative Urine Protein Negative Negative Urine Leukocytes Negative Negative Urine Blood Negative Negative Urine Nitrite Negative Negative Urine Bilirubin Negative Negative Urine Glucose 3+(>=500 mg/dL) Abnormal Negative Urine Drug 08/17/2017 [facility] Amphetamine Ur None Detected None Detect SCR ED & 101 [facility] [place] [address] [phone] Barbiturates Urine Screen None Detected None Detect Benzodiazepine Urine Screen None Detected None Detect Urine Cannabinoids Screen None Detected None Detect Urine Cocaine Screen None Detected None Detect Urine Opiates Screen None Detected None Detect Urine Phencyclidine Screen None Detected None Detect 90 Laboratory test 08/17/2017 [facility] Point of 276 mg/dL High 70-100 91 finding 101 [facility] [place] [address] [phone] Laboratory test 08/17/2017 [facility] Point of > 444 High 70- 100 92 finding 101 [facility] Glucose mg/[place] [address] [phone] Venous Blood 08/17/2017 [facility] Venous Blood 7.36 N 7.33- 7.[address] [place] [address] [phone] Venous Pco2 48 mmHg N 41-51 Venous Po2 29 mmHg Low 35-45 Venous O2 Saturation 59.9 % Low 70-80 Venous Blood Base Excess 1.1 N 0-4 93 Venous Bicarbonate Hco3 24.9 mmol/L N 24-28 CBC Auto Diff 08/17/2017 [facility] White Blood 10.8 10^3/uL N 3.5-10.[address] [place] [address] [phone] Red Blood Count 4.74 10^6/uL N 4.0-5.4 [...] Cells % 0 Comp Metabolic Panel 08/17/2017 [facility] Sodium 133 mmol/L N 133-[address] [place] [address] [phone] Potassium 4.9 mmol/L N 3.5-5.0 Chloride 101 [...] mg/dL High 70-100 95 Laboratory test 08/17/2017 [facility] Acetaminophen < 15 g/mL [address] [place] [address] [phone] Alcohol < 10 mg/dL N <10 Salicylate < 2.50 mg/dL <30 TSH (Thyroid Stim Horm) 2.76 mcIU/mL N 0.34-5.60 Lamotrigine (Lamictal) 4.2 g/mL 2.5 - 15.0 97 Laboratory test 08/17/2017 [facility] Point of > 444 High 70- 100 [address] Care Glucose mg/[place] [address] [phone] Laboratory test 08/09/2017 [facility] Point of 266 mg/dL High 70-100 [address] [place] [address] [phone] CBC Auto Diff 08/08/2017 [facility] White Blood 11.9 High 3.5- 10.[address] Count 10^3/[place] [address] [phone] Red Blood Count 4.78 10^6/uL N 4.0-5.4 [...] Cells % 0 Comp Metabolic Panel 08/08/2017 [facility] Sodium 136 mmol/L N 133-[address] [place] [address] [phone] Potassium 4.3 mmol/L N 3.5-5.0 Chloride 100 [...] Egfr 95.9 >60 100 Laboratory test 08/08/2017 [facility] Acetaminophen < 15 g/mL [address] [place] [address] [phone] Alcohol < 10 mg/dL N <10 Salicylate < 2.50 mg/dL <30 TSH (Thyroid Stim Horm) 2.67 mcIU/mL N 0.34-5.60 Lamotrigine (Lamictal) 2.5 g/mL 2.5 - 15.0 102 Urinalysis Profile 08/08/2017 [facility] Urine Color Yellow [address] [place] [address] [phone] Urine Appearance Cloudy Urine Specific Fulda 1.022 N 1.010-1.030 Urine pH 6.0 N 5-9 Urine Urobilinogen Negative Negative Urine Ketones Negative Negative Urine Protein Negative Negative Urine Leukocytes Negative Negative Urine Blood Negative Negative Urine Nitrite Negative Negative Urine Bilirubin Negative Negative Urine Glucose 3+(>=500 mg/dL) Abnormal Negative Urine Drug 08/08/2017 [facility] Amphetamine Ur None Detected None Detect SCR ED & 101 [facility] [place] [address] [phone] Barbiturates Urine Screen None Detected None Detect Benzodiazepine Urine Screen None Detected None Detect Urine Cannabinoids Screen None Detected None Detect Urine Cocaine Screen None Detected None Detect Urine Opiates Screen None Detected None Detect Urine Phencyclidine Screen None Detected None Detect 103 Laboratory test 08/04/2017 [facility] Point of 258 mg/dL High 70-100 104 finding 101 [facility] [place] [address] [phone] Laboratory test 08/04/2017 [facility] Point of 175 mg/dL High 70-100 105 finding 101 [facility] Glucose [place], [place] [address] [phone] Laboratory test 08/04/2017 [facility] Point of 284 mg/dL High 70-100 106 finding 101 [facility] Glucose [place], [place] [address] [phone] Urinalysis 08/03/2017 [facility] Urine Color Yellow Profile [address] [place] [address] [phone] Urine Appearance Cloudy Urine Specific Fulda 1.012 N 1.010-1.030 Urine pH 5.0 N [...] & [address] [place] [address] [phone] Barbiturates Urine Screen None Detected None Detect Benzodiazepine Urine Screen None Detected None Detect Urine Cannabinoids Screen None Detected None Detect Urine Cocaine Screen None Detected None Detect Urine Opiates Screen None Detected None Detect Urine Phencyclidine Screen None Detected None Detect 107 Urine Culture And 08/03/2017 [facility] Urine SEE RESULT [address] [place] [address] [phone] CBC Auto Diff 08/03/2017 [facility] White Blood 10.9 High 3.5- [address] Count 10^3/uL 0.8 [place] [address] [phone] Red Blood Count 4.61 10^6/uL N 4.0-5.4 [...] 132 mmol/L Low 133-[address] [place] [address] [phone] Potassium 4.6 mmol/L N 3.5-5.0 Chloride 98 [...] Acetaminophen < 15 g/mL [address] [place] [address] [phone] Alcohol < 10 mg/dL N <10 Salicylate < 2.50 mg/dL <30 TSH (Thyroid Stim Horm) 0.60 mcIU/mL N 0.34-5.60 Laboratory test 08/02/2017 [facility] Troponin-I 0.01 <0.[address] (TnI) ng/[place] [address] [phone] CBC Auto Diff 08/02/2017 [facility] White Blood 13.8 High 3.5- 10.[address] Count 10^3/[place] [address] [phone] Red Blood Count 4.64 10^6/uL N 4.0-5.4 [...] 133 mmol/L N 133-[address] [place], [place] [address] [phone] Potassium 4.7 mmol/L N 3.5-5.0 Chloride 101 [...] <0.[address] (TnI) ng/[place] [address] [phone] Urine Culture And 08/01/2017 [facility] Urine Culture SEE 112, Sensitivities [address] RESULT 113 [place] [address] BELOW [phone] Laboratory test 06/13/2017 [facility] Hemoglobin 9.2 High 5-7 finding A1c Laboratory test 06/03/2017 [facility] Point of Care 184 mg/dL High 70-100 [address] Glucose [place], [place] [address] [phone] Laboratory test 06/03/2017 [facility] Point of Care 256 mg/dL High 70-100 [address] Glucose [place], [place] [address]32 [phone] Laboratory test 06/03/2017 [facility] Point of Care 329 mg/dL High 70-100 [address] [place] [address] [phone] Laboratory test 06/03/2017 [facility] Point of Care 384 mg/dL High 70-100 [address] Glucose [place], [place] [address] [phone] Laboratory test 06/03/2017 [facility] Point of Care > 444 High 70-100 [address] Glucose mg/dL [place], [place] [address] [phone] Laboratory test 06/03/2017 [facility] Point of Care > 444 High 70-100 [address] Glucose mg/dL [place], [place] [address] [phone] 1 Nursing Consultant: [id number] Nursing Consultant: [id number] [facility] Severe Sepsis and Septic Shock Management [...] dialysis) 5 Critical Result GLU:46 Called to [id number] at: 16:46:21 by:[id number] Read back by:[id number] 6 Troponin-I testing on Plasma Separator Tubes (PST) has a known false positive rate of 0.20-0.40%. All positive troponins reflex immediately to secondary confirmatory testing. Using the [employer] DxI 800 Access Immunoassay systems, the 99th percentile upper reference limit was demonstrated to be < 0.03 ng/mL. 7 SEE RESULT BELOW Name: CECILIO ALFARO : [address]: Violeta Yusuf MD Acct: [id number] Unit: [id number] AGE: 53 Location: ED Re12/14/18 SEX: F Status: DEP ER SPEC: [id number] ANKUR: 12/14/18-[address] [facility] [address]: Violeta Yusuf MD REQ: [id number] RECD: 12/14/181221 STATUS: TASHA BARFIELD DR: Rosa Schroeder MD _ S[facility] ORDERED: Urine Culture Procedure Result Reported Site Urine Culture Final 12/15/18- 1256 ML No growth of clinically significant organisms * ML - Main Lab . END OF REPORT DEPARTMENT OF PATHOLOGY, [address] [place] [address] Tay Gamboa M.D. Director [facility] # [id number] [facility] Severe Sepsis and Septic Shock Management [...] High intensity warfarin therapeutic range: 2.5-3.5 13 Nursing Consultant: [id number] Troponin-I testing on Plasma Separator Tubes [...] 5 Kidney failure <15 (or dialysis) 16 [facility] Severe Sepsis and Septic Shock Management [...] 5 Kidney failure <15 (or dialysis) 20 Nursing Consultant: [id number] 21 Nursing Consultant: [id number] 22 SEE RESULT BELOW Name: CECILIO ALFARO : [address]: Neo Steinberg MD Acct: [id number] Unit: [id number] AGE: 53 Location: Re11/21/18 SEX: F Status: DEP ER SPEC: [id number] ANKUR: 11/21/[address] [facility] [address]: Neo Steinberg MD REQ: [id number] RECD: 11/21/18 STATUS: TASHA BARFIELD DR: Rosa Schroeder MD _ SOURCE: URINE SPDESC: ORDERED: Urine Culture Procedure Result Reported Site Urine Culture Final 11/23/18- 1003 ML No growth of clinically significant organisms * ML - Main Lab . END OF REPORT DEPARTMENT OF PATHOLOGY, [address] [place] [address] Tay Gamboa M.D. Director [facility] # [id number] 23 Nursing Consultant: [id number] 24 Because ethnic data is not always [...] <50 ug/mL Toxic concentration: >120 ug/mL 26 Nursing Consultant: [id number] 27 Because ethnic data is not always [...] <50 ug/mL Toxic concentration: >120 ug/mL 30 Nursing Consultant: [id number] Test Result Flag Unit RefValue TRYPSIN [...] cannot be used interchangeably. Test Performed by: [facility] [address] [place] [id number] 33 [id number] 34 Because ethnic data is not always [...] 130-159 High: 160-189 Very High: >189 39 [id number] 40 Therapeutic target for the treatment of diabetes mellitus patients is <7% HBA1C, and in selective patients <6.0%. Please refer to [place] [employer] diabetic care guidelines for further information. 41 Nursing Consultant: [id number] 42 Because ethnic data is not always [...] purposes only. 46 SEE RESULT BELOW Name: CCEILIO ALFARO : [address]: Sendy Mcdowell MD Acct: [id number] Unit: [id number] AGE: 53 Location: ED Re07/10/18 SEX: F Status: DEP ER SPEC: [id number] ANKUR: 07/10/18-[address]: Sendy Mcdowell MD REQ: [id number] RECD: 07/10/18 STATUS: TASHA BARFIELD DR: Chapo Aguila MD _ SOURCE: URINE SPDESC: ORDERED: Urine Culture Procedure Result Reported Site Urine Culture Final 07/12/18- 0845 ML No growth of clinically significant organisms * ML - Main Lab . END OF REPORT DEPARTMENT OF PATHOLOGY, [address] [place] [address] Tay Gamboa M.D. Director [facility] # [id number] 47 Nursing Consultant: [id number] 48 Nursing Consultant: [id number] 49 Nursing Consultant: [id number] 50 The urine specimen was tested at [...] <50 ug/mL Toxic concentration: >120 ug/mL 53 [facility] Severe Sepsis and Septic Shock Management [...] 5 Kidney failure <15 (or dialysis) 55 [facility] Severe Sepsis and Septic Shock Management Bundle Measure requires all lactic acids initially measuring >2.0 mmol/L be repeated. 56 SEE RESULT BELOW Name: CECILIO ALFARO : [address]: Danya Marquez MD Acct: [id number] Unit: [id number] AGE: 52 Location: [facility] Re05/15/18 SEX: F Status: REG REF SPEC: [id number] ANKUR: 05/15/18-[address] [facility] [address]: Danya Marquez MD REQ: [id number] RECD: 05/15/181250 STATUS: COMP _ SOURCE: STOOL SPDESC: ORDERED: C. diff PCR Procedure Result Reported Site Stool Specimen Description Final 05/15/18- 1306 ML Stool Color [place] Stool Form Semi-formed Stool Consistency Firm C. difficile PCR Final 05/15/18- 1306 ML Test not performed * ML - Main Lab . END OF REPORT DEPARTMENT OF PATHOLOGY, [address] [place] [address] Tay Gamboa M.D. Director [facility] # [id number] 57 Nursing Consultant: [id number] 58 Nursing Consultant: [id number] 59 Because ethnic data is not always [...] 5 Kidney failure <15 (or dialysis) 60 [facility] Severe Sepsis and Septic Shock Management [...] Reference ranges based on room air. 66 [facility] Severe Sepsis and Septic Shock Management [...] Average risk: 1.00-3.00 High risk: >3.00 70 Nursing Consultant: [id number] 71 Nursing Consultant: [id number] 72 Because ethnic data is not always [...] Reference ranges based on room air. 78 Nursing Consultant: [id number] 79 Because ethnic data is not always [...] 5 Kidney failure <15 (or dialysis) 80 Nursing Consultant: [id number] 81 Nursing Consultant: [id number] 82 [facility] Severe Sepsis and Septic Shock Management [...] dialysis) 84 Critical Result GLU:[id number] Called to JIMENA at: 21:48:40 by:[email or web address] Read back by:[email or web address] 85 Acute inflammation: >10.00 86 Nursing Consultant: [id number] 87 SEE RESULT BELOW Name: CECILIO ALFARO Cameron : [address]: Violeta Yusuf MD Acct: [id number] Unit: [id number] AGE: 52 Location: ED Re08/22/17 SEX: F Status: DEP ER SPEC: [id number] ANKUR: 08/22/[address] [facility] [address]: Violeta Yusuf MD REQ: [id number] RECD: 08/22/17 STATUS: TASHA BARFIELD DR: Chapo Aguila MD _ SOURCE: URINE SPDESC: ORDERED: Urine Culture Procedure Result Reported Site Urine Culture Final 08/23/17- 1607 ML Mixed seema; possible contamination. Suggest resubmission. * ML - MAIN LAB ([facility]) . END OF REPORT * ML=Testing performed at Main Lab DEPARTMENT OF PATHOLOGY, [address] [place] [address] Tay Gamboa M.D. Director [facility] # [id number] 88 Reference ranges based on room air. 89 Nursing Consultant: [id number] 90 The urine specimen was tested at the listed cutoffs: Drug class test level (ng/mL) Amphetamines 500 Barbiturates 200 Benzodiazepine metabolites 200 Cocaine metabolites 150 Cannabinoids 50 Opiates 300 Pcp 25 Specimen was received without chain of custody. Results should be used for medical purposes only. 91 Nursing Consultant: [id number] 92 Nursing Consultant: [id number] 93 Reference ranges based on room air. [...] dialysis) 95 Critical Result GLU:543 Called to [id number] at: 18:00:03 by:[id number] Read back by:[id number] 96 Therapeutic concentration: <50 ug/mL Toxic concentration: >120 ug/mL 97 ADDITIONAL INFORMATION This test was developed and its performance characteristics determined by [facility] in a manner consistent with CLIA requirements. This test has not been cleared or approved by the U.S. Food and Drug Administration. Test Performed by: [facility] [place] [address] 98 Nursing Consultant: [id number] 99 Nursing Consultant: [id number] 100 Because ethnic data is not always [...] developed and its performance characteristics determined by [facility] in a manner consistent with CLIA requirements. This test has not been cleared or approved by the U.S. Food and Drug Administration. Test Performed by: [facility] - [address] [address] 103 The urine specimen was tested at the listed cutoffs: Drug class test level (ng/mL) Amphetamines 500 Barbiturates 200 Benzodiazepine metabolites 200 Cocaine metabolites 150 Cannabinoids 50 Opiates 300 Pcp 25 Specimen was received without chain of custody. Results should be used for medical purposes only. 104 Nursing Consultant: [id number] 105 Nursing Consultant: [id number] 106 Nursing Consultant: [id number] 107 The urine specimen was tested at the listed cutoffs: Drug class test level (ng/mL) Amphetamines 500 Barbiturates 200 Benzodiazepine metabolites 200 Cocaine metabolites 150 Cannabinoids 50 Opiates 300 Pcp 25 Specimen was received without chain of custody. Results should be used for medical purposes only. 108 SEE RESULT BELOW Name: CECILIO ALFARO : [address]: Sendy Mcdowell MD Acct: [id number] Unit: [id number] AGE: 52 Location: ED Re08/03/17 SEX: F Status: REG ER SPEC: [id number] ANKUR: 08/03/[address] [facility] [address]: Sendy Mcdowell MD REQ: [id number] RECD: 08/03/17 STATUS: COMP [facility]ICO DR: Chapo Aguila MD _ SOURCE: [facility]: ORDERED: Urine Culture Procedure Result Reported Site Urine Culture Final 08/05/17- 1225 ML No growth of clinically significant organisms * ML - [facility] . END OF REPORT * ML=Testing performed at Main Lab DEPARTMENT OF PATHOLOGY, [address] [place] [address] Tay Gamboa M.D. Director [facility] # [id number] 109 Because ethnic data is not always [...] 5 Kidney failure <15 (or dialysis) 112 [id number] 113 SEE RESULT BELOW Name: CECILIO ALFARO : [address]: Any Ramirez MD Acct: [id number] Unit: [id number] AGE: 52 Location: [facility] Re08/01/17 SEX: F Status: DEP ER SPEC: [id number] ANKUR: 08/01/17-12[address] [facility] [address]: Any Ramirez MD REQ: [id number] RECD: 08/02/173642 STATUS: COMP [facility] DR: Chapo Aguila MD _ SOURCE: URINE SPDESC: ORDERED: Urine Culture COMMENTS: [id number] Procedure Result Reported Site Urine Culture Final 08/03/17- 1251 ML Mixed seema; possible contamination. Suggest resubmission. * ML - [facility] . END OF REPORT * ML=Testing performed at Main Lab DEPARTMENT OF PATHOLOGY, [address] [place] [address] Tay Gamboa M.D. Director [facility] # [id number] 114 Nursing Consultant: [id number] Nursing Consultant: [id number] Nursing Consultant: [id number] Nursing Consultant: [id number] 118 Nursing Consultant: [id number] 119 Nursing Consultant: [id number] Procedures Date Code Description Status 07/21/2018 66310 Inhalation [place] For Acute Airway Obstruction Completed W/Nebulizer/Inhaler 11/03/2017 22035 EKG, Interpretation Only Completed 10/26/2017 [id number] Diabetic Retinal Eye Exam Completed 10/11/2017 36364 Inject/Drain Joint/Bursa Major W/O US Completed 06/03/2017 11415 Carpal Tunnel Release Completed 06/03/2017 10266 Carpal Tunnel Release Completed 05/01/2016 [id number] Mammogram Completed 04/06/2016 68890 EEG Recording Awake & Drowsy Completed 04/03/2016 19523 EKG, Interpretation Only Completed 04/29/2015 43830 EEG Recording Awake & Drowsy Completed 04/16/2012 91193 EKG, Interpretation Only Completed 04/16/2012 09970 EKG, Interpretation Only Completed Encounters Type Date Location Provider Dx Diagnosis Office Visit 10/26/2018 [facility] Moreno Sandoval MD 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[facility] of [facility] (current) use of insulin E11.65 Type 2 diabetes mellitus with hyperglycemia E03.9 Hypothyroidism, unspecified Office Visit 10/19/2018 [facility] Jun Simental M51.26 Other intervertebral 11:00a Jaylene Denson M.D.,FACP disc displacement, [address] lumbar region E11.65 Type 2 diabetes mellitus with hyperglycemia K59.00 Constipation, unspecified Office Visit 10/18/2018 1:15p Spine Navigator Consuelo Corrales M51.26 Other intervertebral Of [facility] PA-C disc displacement, lumbar region 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, lumbosacral region Office Visit 10/02/2018 3:00p [facility] Jun Schroeder MD I10 Essential (primary) Medicine - [address] M54.16 Radiculopathy, lumbar region F17.211 Nicotine dependence, cigarettes, in remission E66.9 Obesity, unspecified B37.3 Candidiasis of vulva and vagina Office Visit 09/25/2018 3:00p Spine Navigator Consuelo Corrales M54.16 Radiculopathy, Of [facility] PA-C lumbar region Office Visit 09/06/2018 2:20p [facility] Marlo Young0 Essential ( primary) Medicine - [address] E11.65 Type 2 diabetes mellitus with hyperglycemia R19.7 Diarrhea, unspecified M54.41 Lumbago with sciatica, right side F17.210 Nicotine dependence, cigarettes, uncomplicated R68.84 Jaw pain F60.3 Borderline personality disorder Office Visit 07/26/2018 [facility] Jun Simental J40 Bronchitis, not 2:40p Jaylene Denson M.D.,FACP specified as acute [address] or chronic Office Visit 07/21/2018 [facility] Rosa Schroeder MD J45.901 Unspecified asthma 11:40a Medicine - with (acute) [place] exacerbation X79.xxxA Intentional self-harm by blunt object, initial encounter I10 Essential (primary) hypertension M54.41 Lumbago with sciatica, right side F60.3 Borderline personality disorder T18.9xxA Foreign body of alimentary tract, part unsp, init encntr Office Visit 07/18/2018 11:00a [facility] Moreno Sandoval, Z79.4 [facility] [place] (current) use of insulin E11.65 Type 2 diabetes mellitus with hyperglycemia E03.9 Hypothyroidism, unspecified R15.2 Fecal urgency Office Visit 07/04/2018 1:00p [facility] Moreno Sandoval Z79.4 [facility] [place] (current) use of insulin E11.65 Type 2 diabetes mellitus with hyperglycemia E03.9 Hypothyroidism, unspecified R19.7 Diarrhea, unspecified T50.902D Poisoning by unsp drug/meds/biol subst, self-harm, subs Office Visit 07/03/2018 10:00a [facility] Rosa Schroeder, E11.65 Type 2 [...] Other synovitis and 1:15p Services Of Adelina Duarteosynovivivien, C.M.A. right hand M54.41 Lumbago with sciatica, right side Office Visit 05/22/2018 2:30p [facility] Rosa Schroeder, R19.7 Diarrhea, Medicine - [address] unspecified Rd L08.1 Erythrasma R15.1 Fecal smearing Office Visit 05/15/2018 1:30p [facility] Rosa Schroeder, R19.7 Diarrhea, Medicine - [address] unspecified Rd F17.210 Nicotine dependence, cigarettes, uncomplicated J45.909 Unspecified asthma, uncomplicated E11.65 Type 2 diabetes mellitus with hyperglycemia Z91.81 History of falling E11.9 Type 2 diabetes mellitus without complications Office Visit 05/08/2018 9:30a [facility] Internal Rosa Schroeder, E11.65 Type 2 diabetes Medicine - MD mellitus with [address] hyperglycemia R15.1 Fecal smearing I10 Essential (primary) hypertension R94.5 Abnormal results of liver function studies F33.3 Major depressv disorder, recurrent, severe w psych symptoms [facility] G92 Toxic encephalopathy 11:25a Assocmatthieu M.D. Hospitalists T50.904A Poisoning by unsp drug/meds/biol subst, undetermined, init F60.3 Borderline personality disorder R40.2432 Kriss coma scale score 3-8, EMR Office Visit 11/03/2017 11:23a Intensivists Ishmael Dumont G92 Toxic encephalopathy Cheng, D.O. F60.3 Borderline personality disorder T50.904A Poisoning by unsp drug/meds/biol subst, undetermined, init R40.2432 [place] coma scale score 3-8, EMR Office Visit 11/02/2017 11:22a Intensivists Ishmael Dumont R40.2432 [place] coma Cheng, D.O. scale score 3-8, EMR G92 Toxic encephalopathy T50.904A Poisoning by unsp drug/meds/biol subst, undetermined, init F60.3 Borderline personality disorder Office Visit 10/18/2017 Orthopedic Naveed Lutz M75.31 Calcific tendinitis 9:00a Services Of MD Venecia of right shoulder C.M.A. Office Visit 10/13/2017 [facility] Internal [place] E11.65 Type 2 diabetes 1:40p Medicine - [place], mellitus with Rd M.D. hyperglycemia Z12.31 Encntr screen mammogram for malignant neoplasm of breast Z12.11 Encounter for screening for malignant neoplasm of colon Office Visit 10/11/2017 Orth[facility] Naveed Lutz M75.31 Calcific tendinitis 1:30p Services Of MD Venecia of right shoulder C.M.A. Office Visit 09/28/2017 [facility] Internal [place] E11.65 Type 2 diabetes 1:20p Medicine Ayla, mellitus with M.D. hyperglycemia M79.645 Pain in left finger(s) E03.9 Hypothyroidism, unspecified Office Visit 09/19/2017 [facility] Internal [place] E11.65 Type 2 diabetes 2:40p Jaylene Aguila M.D. mellitus with [address] hyperglycemia M54.5 Low back pain Office Visit 08/17/2017 2:10p [facility] Internal Lachelle F33.3 Major depressv Medicine - Agustina, GARMENT CUTTER disorder, [address] recurrent, severe w psych symptoms R45.851 Suicidal ideations Office Visit 08/11/2017 1:20p [facility] [place] Aguila, F31.31 Bipolar Medicine - M.DJarred disorder, [address] current episode depressed, mild M51.16 Intervertebral disc disorders w radiculopathy, lumbar region K63.5 Polyp of colon K21.9 Gastro-esophageal reflux disease without esophagitis Office Visit 07/15/2017 11:00a [facility] [place] E11.9 Type 2 diabetes Jaylene Aguila M.D. 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 syndrome, left upper limb Office Visit 05/11/2017 Surgical Senia Lorne R10.9 Unspecified 10:45a [facility] MD abdominal pain Office Visit 06/14/2016 [facility] Rosi L02.91 Cutaneous 1:40p Assoc,matthieu Grant NP abscess, Hospitalists unspecified E11.9 Type 2 diabetes mellitus without complications Z79.4 [facility] (current) use of insulin Office Visit 06/13/2016 1:39p [facility] Alexus Elliott, L02.91 Cutaneous Assoc,pc N.P. 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 [place] T39.1x2A Poisoning by 3:25p Assoc,matthieu Lui M.D. 4-Aminophenol Hospitalists derivatives, self-harm, init E11.9 Type 2 diabetes mellitus without complications F79 Unspecified intellectual disabilities Office Visit 05/20/2016 [facility] [place] T39.1x2A Poisoning by 3:24p Assoc,matthieu Lui M.D. 4-Aminophenol Hospitalists derivatives, self-harm, init E11.9 Type 2 diabetes mellitus without complications F79 Unspecified intellectual disabilities Office Visit 05/19/2016 [facility] [place] T39.1x2A Poisoning by 3:24p Assocmatthieu M.D. 4-Aminophenol Hospitalists derivatives, self-harm, init E11.9 Type 2 diabetes mellitus without complications F79 Unspecified intellectual disabilities Office Visit 05/18/2016 [facility] [place] T39.1x2A Poisoning by 3:23p Assoc,matthieu Lui M.D. 4-Aminophenol Hospitalists derivatives, self-harm, init E11.9 Type 2 diabetes mellitus without complications F79 Unspecified intellectual disabilities Office Visit 05/17/2016 [facility] T39.1x2A Poisoning by 3:23p Assoc,matthieu Mosquera M.D. 4-Aminophenol Hospitalists derivatives, self-harm, init E11.9 Type 2 diabetes mellitus without complications F79 Unspecified intellectual disabilities Office Visit 05/16/2016 [facility] T39.1x2A Poisoning by 3:22p Assoc,matthieu Mosquera M.D. 4-Aminophenol Hospitalists derivatives, self-harm, init E11.9 Type 2 diabetes mellitus without complications F79 Unspecified intellectual disabilities Office Visit 05/15/2016 [facility] Ml T39.1x2A Poisoning by 3:22p Assoc,matthieu Mosquera M.D. 4-Aminophenol Hospitalists derivatives, self-harm, init E11.9 Type 2 diabetes mellitus without complications F79 Unspecified intellectual disabilities [facility] Poisoning by 3:22p Assoc,matthieu Daly D.O. 4-Aminophenol Hospitalists derivatives, self-harm, init E11.9 Type 2 diabetes mellitus without complications F79 Unspecified intellectual disabilities [facility] Poisoning by 3:21p Assoc,matthieu Daly D.O. 4-Aminophenol Hospitalists derivatives, self-harm, init E11.9 Type 2 diabetes mellitus without complications F79 Unspecified intellectual disabilities Office Visit 05/12/2016 [facility] T39.1x2A Poisoning by 3:21p Assoc,matthieu Daly D.O. 4-Aminophenol Hospitalists derivatives, self-harm, init E11.9 Type 2 diabetes mellitus without complications F79 Unspecified intellectual disabilities Office 05/11/2016 [facility] Benjamin T39.1x2A Poisoning by Visit 3:20p Assoc,RAÚL Brewer 4-Aminophenol Hospitalists derivatives, self-harm, init E11.9 Type 2 diabetes mellitus without complications F79 Unspecified intellectual disabilities Office Visit 05/03/2016 [facility] Anu R73.9 Hyperglycemia, 11:09a Assoc,matthieu Diaz, DO unspecified Hospitalists J40 Bronchitis, not specified as acute or chronic G89.4 Chronic pain syndrome Office Visit 04/07/2016 3:52p [facility] Ml R40.4 Transient Assoc,matthieu Mosquera M.D. alteration of Hospitalists awareness E13.9 Other specified diabetes mellitus without complications F79 Unspecified intellectual disabilities Z91.19 Patient's noncompliance w oth medical treatment and regimen Office Visit 04/06/2016 3:52p [facility] Ml R40.4 Transient Assoc,matthieu Mosquera M.D. alteration of Hospitalists awareness E13.9 Other specified diabetes mellitus without complications F79 Unspecified intellectual disabilities Z91.19 Patient's noncompliance w oth medical treatment and regimen Office Visit 04/05/2016 3:51p [facility] Yraa R40.4 Transient Assoc,pc Addy, D.O. alteration of Hospitalists awareness E13.9 Other specified diabetes mellitus without complications F79 Unspecified intellectual disabilities Z91.19 Patient's noncompliance w oth medical treatment and regimen Office Visit 04/04/2016 3:51p [facility] Yara R40.4 Transient Assoc,pc Addy, D.O. alteration of Hospitalists awareness E13.9 Other specified diabetes mellitus without complications F79 Unspecified intellectual disabilities Z91.19 Patient's noncompliance w oth medical treatment and regimen Office Visit 04/03/2016 3:50p [facility] Rosi R40.4 Transient Assoc,pc Juanita, LUZ alteration of Hospitalists awareness E13.9 Other specified diabetes mellitus without complications F79 Unspecified intellectual disabilities Z91.19 Patient's noncompliance w oth medical treatment and regimen Office Visit 10/01/2015 10:08a [facility] Gray M54.31 Sciatica, right Assoc,matthieu Conn, N.P. side Hospitalists E11.9 Type 2 diabetes mellitus without complications F60.3 Borderline personality disorder Office Visit 09/28/2015 10:06a [facility] Ml M54.31 Sciatica, right Assoc,matthieu Mosquera M.D. side Hospitalists E11.9 Type 2 diabetes mellitus without complications Office Visit 04/24/2015 [facility] Conner 276.1 Hyposmolality & Or 1:31p Assocmatthieu M.D. Hyponatremia Hospitalists 296.7 Bipolar I Disorder Current NOS 301.83 Borderline Personality Disorder Office Visit 04/23/2015 [facility] Conner 276.1 Hyposmolality & Or 1:30p Assocmatthieu M.D. Hyponatremia Hospitalists 250.00 Diabetes Mellitus W/O Compl Type II Or Unspec Controlled 296.7 Bipolar I Disorder Current NOS 301.83 Borderline Personality Disorder Office Visit 04/22/2015 [facility] Quique 276.1 Hyposmolality & Or 1:29p Assocmatthieu M.D. Hyponatremia Hospitalists 250.00 Diabetes Mellitus W/O Compl Type II Or Unspec Controlled 301.83 Borderline Personality Disorder Office Visit 04/21/2015 [facility] Gray 276.1 Hyposmolality & Or 1:28p Assocmatthieu N.P. Hyponatremia Hospitalists 296.7 Bipolar I Disorder Current NOS 301.83 Borderline Personality Disorder 250.00 Diabetes Mellitus W/O Compl Type II Or Unspec Controlled Office Visit 11/27/2014 [facility] Sherita 244.9 Hypothyroidism 8:42a Assoc,matthieu Lui M.D. Other Unspec Hospitalists 250.02 Diabetes Mellitus W/O Compl Type II Or Unspec Type Uncontrol 301.83 Borderline Personality Disorder Office Visit 04/17/2012 [facility] 969.09 Poisoning By Other 4:07p Assocmatthieu D.O. Antidepressants Hospitalists 300.9 Nonpsychotic Disorders NOS 311 Depressive Disorder Not Elsewhere Spec Office 04/16/2012 [facility] 969.09 Poisoning By Other Visit 4:35p Assocmatthieu M.D. Antidepressants Hospitalists 300.9 Nonpsychotic Disorders NOS 311 Depressive Disorder Not Elsewhere Spec V11.1 History Personal Affective Disorder Office Visit 10/18/2009 1:00a [facility] Jase Jesus, 789.00 Pain Abdominal Assocmatthieu M.D. Unspec Site Hospitalists 787.03 Vomiting Alone 790.29 Other Abnormal Glucose 250.02 Diabetes Mellitus W/O Compl Type II Or Unspec Type Uncontrol Office Visit 10/17/2009 3:00a [facility] Jase Jesus, 790.29 Other Abnormal Assocmatthieu M.D. Glucose Hospitalists 789.00 Pain Abdominal Unspec Site 295.70 Schizoaffective Disorder NOS 401.9 Hypertension Unspec Office Visit 10/16/2009 12:15a [facility] Sherita 790.29 Other Abnormal Assocmatthieu M.D. Glucose Hospitalists 296.80 Bipolar Disorder NOS Plan of Treatment Future Appointment(s):03/23/2019 1:40 pm - Rosa Schroeder MD at [facility] Internal Ofcpyuow25/25/2019 11:40 am - Moreno Sandoval MD at [facility]01/02/2019 2:40 pm - Rosa Schroeder MD at [facility] Internal Fgcffglh31/22/2019 - Rosa Schroeder MDF25.9 Schizoaffective disorder, unspecifiedComments:you are not safe to live alone, and I recommend placement in a longterm facility to manage medications and incontinence. please follow up with Dr. VillarE11.65 Type 2 diabetes mellitus with hyperglycemiaComments:Being managed by Dr. Gutierres51.27 Other intervertebral disc displacement, lumbosacral regionComments:recommend physical therapy. discontinued lidocaine patches, follow up with pain clinic and [id number] Essential (primary) hypertensionComments:no change to meds, pt near goal, in pain todayFollow up:3 moZ72.0 Tobacco useComments:I encourage you to stop smoking, there is no safe djmnrqN52.909 Unspecified asthma, uncomplicatedComments:For your asthma:Continue with your current medication.If you should need to use your Albuterol more than twice weekly on a regular basis call the office.K86.81 Exocrine pancreatic insufficiencyComments:your diarrhea is likely from the pancreas not working, so please continue creon and eat less fat in your diet Goals 12/20/2018 - Rosa Schroeder MDE11.65 Type 2 diabetes mellitus with hyperglycemiaGoal Hemoglobin A1c is less than 7.0% in ages 18-74 Goal Hemoglobin A1c is between 7.0% and 8.0% in age over 75 Goal Blood pressure is less than 130/85. Cholesterol should be lowered by a high or moderate-dose statin.
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
[2019-01-01 23:40] VITALS: BP 0/0
== END 2019-01-01 23:39 | disposition home or self-care (01) ==
LOC: ED 19:31
DX: F31.9 Bipolar disorder, unspecified (principal); I10 Essential (primary) hypertension; I47.1 Supraventricular tachycardia; E11.9 Type 2 diabetes mellitus without complications; E07.9 Disorder of thyroid, unspecified; K86.1 Other chronic pancreatitis; J45.909 Unspecified asthma, uncomplicated; K21.9 Gastro-esophageal reflux disease without esophagitis; K58.9 Irritable bowel syndrome, unspecified; F79 Unspecified intellectual disabilities; F41.9 Anxiety disorder, unspecified; F17.210 Nicotine dependence, cigarettes, uncomplicated; Z88.3 Allergy status to other anti-infective agents; Z88.8 Allergy status to other drugs, medicaments and biological substances; Z91.040 Latex allergy status; Z88.0 Allergy status to penicillin; Z88.2 Allergy status to sulfonamides; Z88.6 Allergy status to analgesic agent; Z79.899 Other long term (current) drug therapy; Z91.5 Personal history of self-harm
CPT/HCPCS: 99284

== ENCOUNTER → 2019-01-02 13:50 | Emergency (ER) | payer MEDICARE, MEDICAID ==
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
[2019-01-02 15:02] LABS: Urine Appearance Turbid; Urine Bacteria 1+ (Absent); Urine Benzodiazepine Screen None Detected (None Detect); Urine Bilirubin Negative (Negative); Urine Blood Negative (Negative); Urine Color Yellow; Urine Glucose Negative (Negative); Urine Ketones Negative (Negative); Urine Nitrite Negative (Negative); Urine Opiates Screen None Detected (None Detect); Urine Protein Negative (Negative); Urine Red Blood Cell 2+(6-10/hpf) (Absent); Urine Specific Gravity 1.011 (1.010-1.030); Urine Squamous Epithelial Cell Present (Absent); Urine Urobilinogen Negative (Negative); Urine White Blood Cell Trace(0-5/hpf) (Absent)
[2019-01-02 17:29] LABS: ABS Eosinophils 0.1 10^3/ul (0-0.6); ABS Lymphocytes 2.5 10^3/ul (1.0-4.8); ABS Monocytes 0.6 10^3/ul (0-0.8); ABS Neutrophils 7.8 10^3/ul (1.5-7.7); Eosinophil % 1.3 %; Hematocrit 40 % (35-47); Hemoglobin 12.8 g/dL (12.0-16.0); Lymphocyte % 22.3 %; Mean Corpuscular HGB Conc 32 g/dL (31-36); Mean Corpuscular Hemoglobin 30 pg (27-31); Mean Corpuscular Volume 93 fL (80-97); Mean Platelet Volume 9.1 fL (7.4-10.4); Platelet Count 202 10^3/uL (150-450); Red Blood Count 4.26 10^6 /uL (3.70-4.87); Red Cell Distribution Width 15 % (10.5-15); White Blood Count 11.1 10^3/uL (3.5-10.8)
[2019-01-02 17:50] LABS: ALT 21 U/L (7-52); AST 27 U/L (13-39); Albumin 3.5 g/dL (3.2-5.2); Albumin/Globulin Ratio 1.1 (1-3); Alkaline Phosphatase 118 U/L (34-104); Anion Gap 4 mmol/L (2-11); BUN/Creatinine Ratio 17.6 (8-20); Blood Urea Nitrogen 13 mg/dL (6-24); CO2 Carbon Dioxide 28 mmol/L (22-32); Calcium 9.5 mg/dL (8.6-10.3); Chloride 108 mmol/L (101-111); EGFR African American 99.7 (>60); EGFR Non-African American 82.4 (>60); Globulin 3.1 g/dL (2-4); Glucose 136 mg/dL (70-100); Potassium 4.4 mmol/L (3.5-5.0); Sodium 140 mmol/L (135-145); Total Protein 6.6 g/dL (6.4-8.9)
[2019-01-02 18:04] LABS: Acetaminophen < 15 mcg/mL; Alcohol < 10 mg/dL (<10); Salicylate < 2.50 mg/dL (<30)
[2019-01-02 18:18] LABS: TSH (Thyroid Stimulating Horm) 0.91 mcIU/mL (0.34-5.60)
[2019-01-02 19:49] VITALS: BP 145/66
== END | disposition home or self-care (01) ==
LOC: ED 13:50
DX: F60.3 Borderline personality disorder (principal); F17.210 Nicotine dependence, cigarettes, uncomplicated; K21.9 Gastro-esophageal reflux disease without esophagitis; R62.50 Unspecified lack of expected normal physiological development in childhood; Z88.0 Allergy status to penicillin; Z88.2 Allergy status to sulfonamides
CPT/HCPCS: 36415; 80053; 80307; 80320; 80329; 81003; 81015; 84443; 85025; 87086; 99285; G0480

== ENCOUNTER 2019-01-03 11:34 | Emergency (ER) | payer MEDICARE, MEDICAID ==
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
[2019-01-03 12:24] LABS: ABS Eosinophils 0.1 10^3/ul (0-0.6); ABS Lymphocytes 2.1 10^3/ul (1.0-4.8); ABS Monocytes 0.5 10^3/ul (0-0.8); ABS Neutrophils 4.9 10^3/ul (1.5-7.7); Eosinophil % 1.1 %; Hematocrit 39 % (35-47); Hemoglobin 12.6 g/dL (12.0-16.0); Lymphocyte % 28.2 %; Mean Corpuscular HGB Conc 32 g/dL (31-36); Mean Corpuscular Hemoglobin 30 pg (27-31); Mean Corpuscular Volume 93 fL (80-97); Mean Platelet Volume 9.5 fL (7.4-10.4); Platelet Count 220 10^3/uL (150-450); Red Cell Distribution Width 16 % (10.5-15); White Blood Count 7.6 10^3/uL (3.5-10.8)
[2019-01-03 12:42] LABS: ALT 24 U/L (7-52); AST 32 U/L (13-39); Albumin 3.5 g/dL (3.2-5.2); Albumin/Globulin Ratio 1.2 (1-3); Alkaline Phosphatase 125 U/L (34-104); Anion Gap 8 mmol/L (2-11); Blood Urea Nitrogen 15 mg/dL (6-24); CO2 Carbon Dioxide 24 mmol/L (22-32); Chloride 105 mmol/L (101-111); EGFR African American 75.7 (>60); EGFR Non-African American 62.5 (>60); Globulin 2.9 g/dL (2-4); Glucose 499 mg/dL (70-100); Potassium 4.5 mmol/L (3.5-5.0); Sodium 137 mmol/L (135-145); Total Protein 6.4 g/dL (6.4-8.9)
[2019-01-03 13:01] LABS: Alcohol < 10 mg/dL (<10); Salicylate < 2.50 mg/dL (<30)
[2019-01-03 13:15] LABS: TSH (Thyroid Stimulating Horm) 1.52 mcIU/mL (0.34-5.60)
[2019-01-03 13:21] LABS: Acetaminophen 226 mcg/mL
[2019-01-03] MEDS ORDERED: Charcoal ACTIVATED* 25 GM/120 ML BTL PO ONE (13:34)
[2019-01-03] MEDS ORDERED: NS 0.9% 1000 ML** 1,000 ML IV ONE ×2 (15:10→16:21)
[2019-01-03] MEDS ORDERED: Insulin REGULAR(*) 1 UNITS UNIT IV PUSH ONE (15:32)
--- NOTE | 2019-01-03 16:53 | PN ---
Progress Note - Progress Note Date of Service: 01/03/19 Note: S: 53 y.o. , white female with a history of severe and primitive borderline personality dysfunction arrives in the ED for her 3rd visit in as many days, this time following a self-harm gesture in which she swallowed a handful of OTC Tylenol. The patient is embroiled in an intricate psychosocial set of disputes with [facility] (please see crisis diamond picker Inez Patrick's note) and my sense is that the patient is angling for admission to the [facility] to avoid contact with them for a time. Nevertheless, on exam she is smiling at times and telling me about a boyfriend named Dat, whom she wants to stay at [place] to be with. She is made aware that there is a enrollment eligibility representative coming from [facility] in [place] to perform a Level 2 IPRO review for her tomorrow at her [place] residence. She denies acute SI. O: obese, hirsute white female with activated charcoal on her lips and mouth; poorly groomed in patient gown; laying up in ED bed; cooperative; states depressed, anxious mood which is noncongruent with affect, which is full; linear and goal directed; denies SI or HI; denies AH/VH A/P: Borderline PD: patient would not benefit from admission to [facility] with avoidant motivations. Needs outpatient structure and limit setting. Will refer back to [facility] for f/u.
[2019-01-03] MEDS ORDERED: Insulin REGULAR(*) 1 UNITS UNIT SUBCUT ONE (17:20)
[2019-01-03] MEDS ORDERED: Ondansetron ODT TAB* 4 MG PO ONE (17:49)
[2019-01-03 18:48] LABS: BUN/Creatinine Ratio 16.1 (8-20); Calcium 8.8 mg/dL (8.6-10.3); EGFR African American 82.7 (>60); EGFR Non-African American 68.4 (>60); Potassium 4.4 mmol/L (3.5-5.0)
--- NOTE | 2019-01-03 20:19 | PN ---
Progress Note - Progress Note Date of Service: 01/03/19 Note: Patient states she took Tylenol 11 a.m. today. Repeat Tylenol level at 2:38 PM 142, below toxic level of 150 per [facility]. Glucose levels initially 444, decreased to 263 with 1 L normal saline and 10 units of regular insulin subcutaneous. Family requesting mental health admission. Patient has been evaluated by mental health with recommendation that admission would provide the patient no benefit. Patient states she is unhappy at her current halfway residence. Family stating they believe patient needs more mental health assistance. Family advised that Patient will be evaluated by office of mental health from [place] tomorrow. Patient and family understand and approve of plan. Patient discharged back to halfway in stable condition with diagnosis of Tylenol overdose and diabetic hyperglycemia.
[2019-01-03] MEDS ORDERED: oxyCODONE TAB* 5 MG TAB PO ONE (20:23)
[2019-01-03 20:42] VITALS: BP 133/80
== END 2019-01-03 20:39 ==
LOC: ED 11:34
DX: T39.1X2A Poisoning by 4-Aminophenol derivatives, intentional self-harm, initial encounter (principal); R45.851 Suicidal ideations; E11.65 Type 2 diabetes mellitus with hyperglycemia; I10 Essential (primary) hypertension; F17.210 Nicotine dependence, cigarettes, uncomplicated; Z88.0 Allergy status to penicillin; Z88.2 Allergy status to sulfonamides; Z88.8 Allergy status to other drugs, medicaments and biological substances; Z88.1 Allergy status to other antibiotic agents; Z91.040 Latex allergy status
CPT/HCPCS: 36415; 80048; 80053; 80320; 80329; 84443; 85025; 93005; 96360; 96361; 96372; 96374; 99285; A9270-GY; G0480

== ENCOUNTER 2019-01-16 23:00 | Emergency (ER) | payer MEDICARE, MEDICAID ==
[2019-01-16 23:10] VITALS: BP 141/89
[2019-01-16 23:43] LABS: ABS Basophils 0.1 10^3/ul (0-0.2); ABS Eosinophils 0.2 10^3/ul (0-0.6); ABS Lymphocytes 3.1 10^3/ul (1.0-4.8); ABS Monocytes 0.5 10^3/ul (0-0.8); ABS Neutrophils 6.5 10^3/ul (1.5-7.7); Eosinophil % 1.9 %; Hematocrit 41 % (35-47); Hemoglobin 13.5 g/dL (12.0-16.0); Lymphocyte % 29.7 %; Mean Corpuscular HGB Conc 33 g/dL (31-36); Mean Corpuscular Hemoglobin 30 pg (27-31); Mean Corpuscular Volume 91 fL (80-97); Mean Platelet Volume 8.8 fL (7.4-10.4); Platelet Count 225 10^3/uL (150-450); Red Blood Count 4.51 10^6 /uL (3.70-4.87); Red Cell Distribution Width 15 % (10-15); White Blood Count 10.3 10^3/uL (3.5-10.8)
--- NOTE | 2019-01-16 23:52 | ED ---
GI/ HPI - HPI Summary HPI Summary: 53 year old female presents with abdominal pain today. States pain is in epigastric region. She states she is concerned that she has pancreatitis. She' s been a clear liquid diet states to have a colonoscopy in a couple days. She states that she has not had any fevers. Has been nauseous but no vomiting. No diarrhea or constipation. Was given a Percocet and pain started after Percocet per nurse at senior living. She states that she will was given ibuprofen earlier today and made it worse. she did not swallow anything abnormal. has had gallbladder removed. - History of Current Complaint Chief Complaint: EDAbdPain Time Seen by Provider: 01/16/19 23:13 Stated Complaint: ABD PAIN PER PT Hx Last Menstrual Period: "last month" Pain Intensity: 4 - Additional Pertinent History Primary Care Physician: RICKY - Allergy/Home Medications Allergies/Adverse Reactions: Allergies Allergy/AdvReac Type Severity Reaction Status Date / Time ciprofloxacin Allergy Dizziness Verified 01/12/19 12:06 latex Allergy Rash Verified 01/12/19 12:06 lithium Allergy See Comment Verified 01/12/19 12:06 lurasidone [From Latuda] Allergy Altered Verified 01/12/19 12:06 Mental Status nalbuphine Allergy Unknown Verified 01/12/19 12:06 Reaction Details naldemedine Allergy Unknown Verified 01/12/19 12:06 Reaction Details Penicillins Allergy Rash Verified 01/12/19 12:06 perphenazine Allergy Unknown Verified 01/12/19 12:06 Reaction Details Sulfa (Sulfonamide Allergy Hives Verified 01/12/19 12:06 Antibiotics) tramadol Allergy Altered Verified 01/12/19 12:06 Mental Status ENVIRONMENTAL Allergy Mild SINUS Uncoded 01/01/19 19:50 PMH/Surg Hx/FS Hx/Imm Hx Endocrine/Hematology History: Reports: Hx Diabetes, Hx Thyroid Disease, Other Endocrine/Hematological Disorders - Chronic pancreatitis Denies: Hx Anticoagulant Therapy Cardiovascular History: Reports: Hx Hypertension, Other Cardiovascular Problems/ Disorders - HX OF PSVT 04/2008 Denies: Hx Pacemaker/ICD Respiratory History: Reports: Hx Asthma, Hx Seasonal Allergies, Hx Sleep Apnea - HX OF IN THE PAST Denies: Hx Chronic Bronchitis, Hx Chronic Obstructive Pulmonary Disease (COPD ), Hx Cystic Fibrosis, Hx Lung Cancer, Hx Pleural Effusion, Hx Pneumonia, Hx Pulmonary Edema, Hx Pulmonary Embolism, Other Respiratory Problems/Disorders GI History: Reports: Hx Gall Bladder Disease, Hx Gastroesophageal Reflux Disease - ON MEDICATION FOR, Hx Gastrointestinal Bleed, Hx Irritable Bowel, Other GI Disorders - HX OF pancreatitis- STATES LAST ABOUT 2 WEEKS AGO- STATES SLIGHT CASE Denies: Hx Ulcer History: Reports: Other Problems/Disorders - urinary incontinence Denies: Hx Dialysis, Hx Renal Disease Musculoskeletal History: Reports: Hx Arthritis, Hx Back Problems, Other Musculoskeletal History - GEN MUSCULOSKELETAL PAIN Denies: Hx Rheumatoid Arthritis, Hx Bursitis, Hx Congenital Bone Abnormalities, Hx Fibromyalgia, Hx Gout, Hx Orthopedic Injury, Hx Osteoporosis, Hx Scoliosis, Hx Tendonitis Sensory History: Reports: Hx Contacts or Glasses, Hx Vision Problem Denies: Hx Cataracts, Hx Eye Injury, Hx Eye Prosthesis, Hx Glaucoma, Hx Macular Degeneration, Hx Hearing Aid, Other Sensory Impairments Opthamlomology History: Reports: Hx Contacts or Glasses, Hx Vision Problem Denies: Hx Cataracts, Hx Eye Injury, Hx Eye Prosthesis, Hx Glaucoma, Hx Macular Degeneration, Other Sensory Impairments Neurological History: Reports: Hx Developmental Delay - intellectual disability , Hx Seizures - STATES WITH ALLERGIC REACTION TO TRAMADOL Denies: Hx Dementia, Hx Headaches, Other Neuro Impairments/Disorders Psychiatric History: Reports: Hx Anxiety, Hx Depression, Hx Post Traumatic Stress Disorder, Hx Inpatient Treatment, Hx Community Mental Health Tx, Hx Bipolar Disorder - pt manic, Hx Suicide Attempt, Hx of Violent Episodes Against Others, Other Psychiatric Issues/Disorders - PSYCHOSIS NOS, HX OF PTSD, SCHIZOAFFECTIVE DISORDER, BORDERLINE PERSONALITY Denies: Hx Attention Deficit Hyperactivity Disorder, Hx Eating Disorder, Hx Panic Disorder, Hx Schizophrenia, Hx Substance Abuse - Cancer History Cancer Type, Location and Year: None reported - Surgical History Surgery Procedure, Year, and Place: 2011-CATARACT EXTRACTION. GALLBLADDER REMOVED Hx Anesthesia Reactions: No - Immunization History Date of Tetanus Vaccine: unk Date of Influenza Vaccine: fall 2017 Infectious Disease History: No Infectious Disease History: Denies: Hx Clostridium Difficile, Hx Hepatitis, Hx Human Immunodeficiency Virus (HIV), Hx of Known/Suspected MRSA, Hx Shingles, Hx Tuberculosis, Hx Known/ Suspected VRE, Hx Known/Suspected VRSA, History Other Infectious Disease, Traveled Outside the [place] in Last 30 Days - Family History Known Family History: Positive: Other - Anxiety and depression, [place] - father Negative: Cardiac Disease, Hypertension, Diabetes Family History: Depression and anxiety - Social History Alcohol Use: None Hx Substance Use: No Substance Use Type: Reports: None Hx Tobacco Use: Yes Smoking Status (MU): Current Every Day Smoker Type: Cigarettes Amount Used/How Often: 1/2 PPD FOR LAST 30 DAYS, NO OTHER TOBACCO Length of Time of Smoking/Using Tobacco: since she was "young" Have You Smoked in the Last Year: Yes - Patient has smoked within the last 30 days Review of Systems Negative: Fever Negative: Chest Pain Negative: Shortness Of Breath Positive: Abdominal Pain. Negative: Vomiting, Diarrhea, Nausea All Other Systems Reviewed And Are Negative: Yes Physical Exam Triage Information Reviewed: Yes Vital Signs On Initial Exam: Initial Vitals Temp Pulse Resp BP Pulse Ox 98.0 F 68 16 141/89 98 01/16/19 23:05 01/16/19 23:05 01/16/19 23:05 01/16/19 23:05 01/16/19 23:05 Vital Signs Reviewed: Yes Appearance: Positive: Well-Appearing Skin: Positive: Warm, Dry Head/Face: Positive: Normal Head/Face Inspection Eyes: Positive: Normal, Conjunctiva Clear ENT: Positive: Pharynx normal Respiratory/Lung Sounds: Positive: Clear to Auscultation, Breath Sounds Present Cardiovascular: Positive: Normal, RRR Abdomen Description: Positive: Soft, Other: - tenderness epigastric Bowel Sounds: Positive: Present Neurological: Positive: Normal Psychiatric: Positive: Normal Diagnostics - Vital Signs Vital Signs Temp Pulse Resp BP Pulse Ox 01/16/19 23:09 68 141/89 100 01/16/19 23:08 69 100 01/16/19 23:05 98.0 F 68 16 141/89 98 - Laboratory Lab Results: Lab Results 01/16/19 Range/Units 23:36 WBC 10.3 (3.5-10.8) 10^3/uL RBC 4.51 (3.70-4.87) 10^6 /uL Hgb 13.5 (12.0-16.0) g/dL Hct 41 (35-47) % MCV 91 (80-97) fL MCH 30 (27-31) pg MCHC 33 (31-36) g/dL RDW 15 (10-15) % Plt Count 225 (150-450) 10^3/uL MPV 8.8 (7.4-10.4) fL Neut % (Auto) 62.6 % Lymph % (Auto) 29.7 % Hitchcock % (Auto) 5.3 % Eos % (Auto) 1.9 % Baso % (Auto) 0.5 % Absolute Neuts (auto) 6.5 (1.5-7.7) 10^3/ul Absolute Lymphs (auto) 3.1 (1.0-4.8) 10^3/ul Absolute Monos (auto) 0.5 (0-0.8) 10^3/ul Absolute Eos (auto) 0.2 (0-0.6) 10^3/ul Absolute Basos (auto) 0.1 (0-0.2) 10^3/ul Absolute Nucleated RBC 0.0 10^3/ul Nucleated RBC % 0.0 Result Diagrams: 01/16/19 23:36 01/16/19 23:36 Lab Statement: Any lab studies that have been ordered have been reviewed, and results considered in the medical decision making process. Re-Evaluation - Re-Evaluation First Eval Re-Evaluation Time: 00:11 Comment: discussed results GIGU Course/Dx - Course Course Of Treatment: 53 year old female presents with abdominal pain today. States pain is in epigastric region. She states she is concerned that she has pancreatitis. She's been a clear liquid diet states to have a colonoscopy in a couple days. She states that she has not had any fevers. Has been nauseous but no vomiting. No diarrhea or constipation. Was given a Percocet and pain started after Percocet per nurse at senior living. She states that she will was given ibuprofen earlier today and made it worse. she did not swallow anything abnormal. On exam tenderness epigastric. White blood count normal. CRP normal. Amylase and lipase are normal. Discussed likely is a reaction due to taking the pain medication on an empty stomach. Told to continue diet and to follow-up with colonoscopy is scheduled. Patient understands agrees with plan. - Diagnoses Differential Diagnoses - Female: Gastroenteritis (Viral), Pancreatitis, Other - medication reaction Provider Diagnoses: Abdominal pain Discharge - Sign-Out/Discharge Documenting (check all that apply): Patient Departure Patient Received Moderate/Deep Sedation with Procedure: No - Discharge Plan Condition: Good Disposition: HOME Patient Education Materials: Acute Abdominal Pain (ED) Referrals: Rosa Schroeder MD [Primary Care Provider] - Additional Instructions: continue diet and colonscopy as scheduled Return to ED if develop any new or worsening symptoms - Billing Disposition and Condition Condition: GOOD Disposition: Home
[2019-01-16 23:59] LABS: ALT 31 U/L (7-52); AST 31 U/L (13-39); Albumin 3.6 g/dL (3.2-5.2); Albumin/Globulin Ratio 1.1 (1-3); Alkaline Phosphatase 134 U/L (34-104); Amylase 32 U/L (29-103); Anion Gap 5 mmol/L (2-11); Blood Urea Nitrogen 15 mg/dL (6-24); CO2 Carbon Dioxide 29 mmol/L (22-32); Calcium 9.4 mg/dL (8.6-10.3); Chloride 104 mmol/L (101-111); EGFR African American 92.5 (>60); EGFR Non-African American 76.4 (>60); Globulin 3.3 g/dL (2-4); Glucose 144 mg/dL (70-100); Potassium 4.5 mmol/L (3.5-5.0); Sodium 138 mmol/L (135-145); Total Protein 6.9 g/dL (6.4-8.9)
[2019-01-17] MEDS: Lidocaine 2% VISCOUS* 15 ML UDC PO ONE (00:09)
[2019-01-17] MEDS: Al Hydrox/Mg Hydrox/Simet LIQ* 30 ML UDC PO ONE (00:09)
[2019-01-17] MEDS: Ondansetron ODT TAB* 4 MG PO ONE (00:09)
== END 2019-01-17 00:29 | disposition home or self-care (01) ==
LOC: ED 23:00
DX: R10.9 Unspecified abdominal pain (principal); E11.9 Type 2 diabetes mellitus without complications; I10 Essential (primary) hypertension; F17.210 Nicotine dependence, cigarettes, uncomplicated
CPT/HCPCS: 36415; 80053; 82150; 83690; 85025; 86140; 99283; A9270-GY

== ENCOUNTER 2019-01-19 07:34 | Day surgery (SDC) | payer MEDICARE, MEDICAID ==
[~2019-01-19 07:34] MED LIST changes: +Famotidine IV* 10 MG/ML 2 ML (20 mg) IV ONE
[2019-01-19] MEDS ORDERED: Famotidine IV* 10 MG/ML 2 ML (20 mg) ONE (07:52)
[2019-01-19] MEDS ORDERED: Buffered Lidocaine 1% SYRIN* 1 ML/SYRINGE INTRADERM ONE (07:52)
[2019-01-19] MEDS ORDERED: Dextrose 50% Syringe 50 ML* 25 GM/50 ML SYRINGE ONE (08:39)
[2019-01-19] MEDS ORDERED: Midazolam* 1 MG/ML 10 ML VIAL (10 MG) ONE (08:43)
[2019-01-19] MEDS ORDERED: Lidocaine 2% PF * 5 ML VIAL ONE (08:43)
[2019-01-19] MEDS ORDERED: Propofol* 10 MG/ML 20 ML BTL ONE ×2 (08:43→09:47)
[2019-01-19] MEDS ORDERED: Dexamethasone IV* 4 MG/ML 1 ML (4 MG) ONE (08:43)
[2019-01-19] MEDS ORDERED: KETAMINE HCL* 50 MG/ML 10 ML VIAL ONE (08:43)
[2019-01-19] MEDS ORDERED: fentaNYL* 50 MCG/ML 2 ML VIAL (100 MCG VIAL) ONE (08:43)
[2019-01-19] MEDS ORDERED: Ondansetron INJ* 2 MG/ML VIAL ONE (08:43)
[2019-01-19] MEDS ORDERED: Ondansetron INJ* 2 MG/ML VIAL IV PRN (09:01)
[2019-01-19] MEDS ORDERED: Naloxone* 0.4 MG/ML 1 ML VIAL IV PRN (09:01)
[2019-01-19] MEDS ORDERED: fentaNYL* 50 MCG/ML 2 ML VIAL (100 MCG VIAL) IV PRN (09:01)
[2019-01-19 11:50] VITALS: BP 154/88
--- NOTE | 2019-01-19 20:00 | PRO ---
CC: Dr. Rosa Schroeder * COLONOSCOPY AND ESOPHAGOGASTRODUODENOSCOPY REPORT: DATE OF PROCEDURE: 01/19/19 PRIMARY CARE PHYSICIAN: Dr. Rosa Schroeder. INDICATION FOR PROCEDURE: Diarrhea, nausea. PROCEDURES PERFORMED: Complete esophagogastroduodenoscopy with biopsies and complete colonoscopy to the terminal ileum with biopsy polypectomy x5. MEDICATIONS GIVEN: Please see Anesthesia record. DESCRIPTION OF PROCEDURE: After the colonoscopy and EGD procedures including the risks, benefits, and alternatives with the risks not limited to perforation , surgery, missed lesions, and/or were explained to the patient, written informed consent was obtained, IV medication was given, and a bite-block was placed between the teeth. The adult Olympus gastroscope was then inserted into the patient's oropharynx, into the tubular esophagus. In the tubular esophagus , there was mild reflux esophagitis. This was biopsied. In addition, a small sliding hiatal hernia was appreciated. The scope was then advanced through the lower esophageal sphincter into the stomach. There was some atrophic appearing gastritis in the antrum. This was biopsied for formalin testing and also for H. pylori testing. On retroflexion, the aforementioned small sliding hiatal hernia was appreciated. Scope was then advanced through the widely patent pylorus into the duodenal bulb, C-loop, and distal duodenum. There was some slight blunting to the villi in the duodenum. I did take biopsies to rule out villous blunting. The scope was then removed from the patient. She tolerated the procedure well. She was then rotated, given additional IV sedation medication, and a rectal exam was then performed. The rectal exam was unremarkable. The adult Olympus colonoscope was then inserted into the patient' s rectum and advanced very carefully through the entirety of the colon and into the cecal base. Cecal base was carefully inspected and normal in appearance. The terminal ileal valve was identified and intubated x4 to 5 cm and normal in appearance. The scope was then returned to the cecum. The preparation was poor initially, but was able to be washed to fair and semi-descent views were actually able to be obtained. In the cecum, 2 small polyps were removed with biopsy polypectomy in entirety. Over the next 10 minutes, the scope was carefully withdrawn inspecting the mucosa. In the ascending colon, an additional small polyp was removed with biopsy polypectomy and in the transverse colon, additional 2 small polyps removed with biopsy polypectomy in entirety. Random biopsies were taken throughout the colon to rule out microscopic colitis. The scope was then removed from the patient. She tolerated the procedure well. She returned to the recovery room in stable condition. IMPRESSION: 1. Complete esophagogastroduodenoscopy with biopsies. 2. Atrophic gastritis, biopsied and CLOtested. 3. Mild reflux, biopsied. 4. Blunted villi in the duodenum, biopsies. 5. Complete colonoscopy to the terminal ileum with biopsy polypectomy x5 and random biopsies. 6. Random biopsies taken to rule out microscopic colitis. 7. Poor prep that was able to be washed to fair. RECOMMENDATIONS: Repeat colonoscopy and EGD in 3 years' time given the atrophic gastritis and 5 polyps that were identified today. We will follow up on the results of biopsies. I suspect that the majority of her nausea is caused by her medications and not necessarily from any of the findings today. She does have some mild gastritis, but I do not suspect that is enough to be causing her symptomatology. We will follow up on the results of these biopsies and await further management at that point. [id number]/[facility] #: [id number] AMBROCIO
== END 2019-01-19 12:00 | disposition home or self-care (01) ==
LOC: OR 07:34
PROVIDERS: ATTEND Internal Medicine Gastroenterology
DX: K21.0 Gastro-esophageal reflux disease with esophagitis (principal); K29.50 Unspecified chronic gastritis without bleeding; K44.9 Diaphragmatic hernia without obstruction or gangrene; K63.5 Polyp of colon
CPT/HCPCS: 81025; 87077; 88305; J1100; J2250; J2405; J2704; J3010

== ENCOUNTER 2019-01-23 21:42 | Emergency (ER) | payer MEDICARE, MEDICAID ==
--- NOTE | 2019-01-23 22:42 | ED ---
Abdominal Pain/Female - HPI Summary HPI Summary: A 53 y/o F presents to ED c/o diffuse abd pain, worst at LUQ, onset 1400 this date. The pain radiates to her back and has worsened throughout the day. She had a routine colonoscopy [address] Reynoso, GI. Associated sx: nausea and dry heaving, diarrhea onset 4 days ago, mild dizziness. Denies: CP, vomiting, pedal edema. Aggravating factors: deep breaths. PMHx: pancreatitis, cholecystectomy. - History of Current Complaint Chief Complaint: EDAbdPain Stated Complaint: DIARRHEA, ABD PAIN PER PT Time Seen by Provider: 01/23/19 22:27 Hx Obtained From: Patient Hx Last Menstrual Period: "last month" Onset/Duration: Sudden Onset, Lasting Hours, Still Present Timing: Constant Severity Initially: Moderate Severity Currently: Severe Pain Intensity: 8 Pain Scale Used: 0-10 Numeric Location: Discrete At: LUQ Radiates: Yes Radiates to: Back Aggravating Factor(s): Deep Breaths Associated Signs and Symptoms: Positive: Back Pain - radiating from abd pain, Nausea, Diarrhea, Other: - pos: mild dizziness, dry heaves. neg: pedal edema.. Negative: Chest Pain, Vomiting Allergies/Adverse Reactions: Allergies Allergy/AdvReac Type Severity Reaction Status Date / Time lurasidone [From Latuda] Allergy Severe Altered Verified 01/23/19 22:36 Mental Status ciprofloxacin Allergy Intermediate Dizziness Verified 01/23/19 22:36 latex Allergy Mild Rash Verified 01/23/19 22:36 lithium Allergy Mild See Comment Verified 01/23/19 22:36 nalbuphine Allergy Unknown Verified 01/23/19 22:36 Reaction Details naldemedine Allergy Unknown Verified 01/23/19 22:36 Reaction Details Penicillins Allergy Rash Verified 01/23/19 22:36 perphenazine Allergy Unknown Verified 01/23/19 22:36 Reaction Details Sulfa (Sulfonamide Allergy Hives Verified 01/23/19 22:36 Antibiotics) tramadol Allergy Altered Verified 01/23/19 22:36 Mental Status ENVIRONMENTAL Allergy Mild SINUS Uncoded 01/17/19 14:01 PMH/Surg Hx/FS Hx/Imm Hx Previously Healthy: No Endocrine/Hematology History: Reports: Hx Diabetes, Hx Thyroid Disease, Other Endocrine/Hematological Disorders - Chronic pancreatitis Denies: Hx Anticoagulant Therapy Cardiovascular History: Reports: Hx Hypertension, Other Cardiovascular Problems/ Disorders - HX OF PSVT 04/2008 Denies: Hx Pacemaker/ICD Respiratory History: Reports: Hx Asthma, Hx Seasonal Allergies, Hx Sleep Apnea - HX OF IN THE PAST Denies: Hx Chronic Bronchitis, Hx Chronic Obstructive Pulmonary Disease (COPD ), Hx Cystic Fibrosis, Hx Lung Cancer, Hx Pleural Effusion, Hx Pneumonia, Hx Pulmonary Edema, Hx Pulmonary Embolism, Other Respiratory Problems/Disorders GI History: Reports: Hx Gall Bladder Disease, Hx Gastroesophageal Reflux Disease - ON MEDICATION FOR, Hx Gastrointestinal Bleed, Hx Irritable Bowel, Other GI Disorders - HX OF pancreatitis- STATES LAST ABOUT 2 WEEKS AGO- STATES SLIGHT CASE Denies: Hx Ulcer History: Reports: Other Problems/Disorders - urinary incontinence Denies: Hx Dialysis, Hx Renal Disease Musculoskeletal History: Reports: Hx Arthritis, Hx Back Problems, Other Musculoskeletal History - GEN MUSCULOSKELETAL PAIN Denies: Hx Rheumatoid Arthritis, Hx Bursitis, Hx Congenital Bone Abnormalities, Hx Fibromyalgia, Hx Gout, Hx Orthopedic Injury, Hx Osteoporosis, Hx Scoliosis, Hx Tendonitis Sensory History: Reports: Hx Contacts or Glasses, Hx Vision Problem Denies: Hx Cataracts, Hx Eye Injury, Hx Eye Prosthesis, Hx Glaucoma, Hx Macular Degeneration, Hx Hearing Aid, Other Sensory Impairments Opthamlomology History: Reports: Hx Contacts or Glasses, Hx Vision Problem Denies: Hx Cataracts, Hx Eye Injury, Hx Eye Prosthesis, Hx Glaucoma, Hx Macular Degeneration, Other Sensory Impairments Neurological History: Reports: Hx Developmental Delay - intellectual disability , Hx Seizures - STATES WITH ALLERGIC REACTION TO TRAMADOL Denies: Hx Dementia, Hx Headaches, Other Neuro Impairments/Disorders Psychiatric History: Reports: Hx Anxiety, Hx Depression, Hx Post Traumatic Stress Disorder, Hx Inpatient Treatment, Hx Community Mental Health Tx, Hx Bipolar Disorder - pt manic, Hx Suicide Attempt, Hx of Violent Episodes Against Others, Other Psychiatric Issues/Disorders - PSYCHOSIS NOS, HX OF PTSD, SCHIZOAFFECTIVE DISORDER, BORDERLINE PERSONALITY Denies: Hx Attention Deficit Hyperactivity Disorder, Hx Eating Disorder, Hx Panic Disorder, Hx Schizophrenia, Hx Substance Abuse - Cancer History Cancer Type, Location and Year: None reported - Surgical History Surgery Procedure, Year, and Place: 2011-CATARACT EXTRACTION. GALLBLADDER REMOVED Hx Anesthesia Reactions: No - Immunization History Date of Tetanus Vaccine: unk Date of Influenza Vaccine: fall 2017 Infectious Disease History: No Infectious Disease History: Denies: Hx Clostridium Difficile, Hx Hepatitis, Hx Human Immunodeficiency Virus (HIV), Hx of Known/Suspected MRSA, Hx Shingles, Hx Tuberculosis, Hx Known/ Suspected VRE, Hx Known/Suspected VRSA, History Other Infectious Disease, Traveled Outside the [place] in Last 30 Days - Family History Known Family History: Positive: Other - Anxiety and depression, [place] - father Negative: Cardiac Disease, Hypertension, Diabetes Family History: Depression and anxiety - Social History Occupation: Disabled Lives: With Family Alcohol Use: None Hx Substance Use: No Substance Use Type: Reports: None Hx Tobacco Use: Yes Smoking Status (MU): Current Every Day Smoker Type: Cigarettes Amount Used/How Often: 1/2 PPD FOR LAST 30 DAYS, NO OTHER TOBACCO Length of Time of Smoking/Using Tobacco: since she was "young" Have You Smoked in the Last Year: Yes - Patient has smoked within the last 30 days Review of Systems Negative: Chest Pain Positive: Abdominal Pain - LUQ, Diarrhea, Nausea, Other - pos: dry heaves. Negative: Vomiting Negative: Edema Neurological: Other - pos: mild dizziness All Other Systems Reviewed And Are Negative: Yes Physical Exam - Summary Physical Exam Summary: Constitutional: Well-developed, Well-nourished, Alert. (-) Distressed Skin: Warm, Dry HENT: Normocephalic; Atraumatic Eyes: Conjunctiva normal Neck: Musculoskeletal ROM normal neck. (-) JVD, (-) Stridor, (-) Tracheal deviation Cardio: Rhythm regular, tachycardic, Heart sounds normal; Intact distal pulses; The pedal pulses are 2+ and symmetric. Radial pulses are 2+ and symmetric. (-) Murmur Pulmonary/Chest wall: Effort normal. (-) Respiratory distress, (-) Wheezes, (-) Rales Abd: Soft, LUQ / R-mid / periumbilical tenderness, (-) Distension, (-) Guarding , (-) Rebound Musculoskeletal: (-) Edema Lymph: (-) Cervical adenopathy Neuro: Alert, Oriented x3 Psych: Mood and affect Normal Triage Information Reviewed: Yes Vital Signs On Initial Exam: Initial Vitals Temp Pulse Resp BP Pulse Ox 97.4 F 119 20 116/103 98 01/23/19 21:55 01/23/19 21:55 01/23/19 21:55 01/23/19 21:55 01/23/19 21:55 Vital Signs Reviewed: Yes Diagnostics - Vital Signs Vital Signs Temp Pulse Resp BP Pulse Ox 01/23/19 21:55 97.4 F 119 20 116/103 98 - Laboratory Result Diagrams: 01/23/19 23:21 01/23/19 23:21 Lab Statement: Any lab studies that have been ordered have been reviewed, and results considered in the medical decision making process. - CT ABD/PEL CT CT Interpretation Completed By: Radiologist Summary of CT Findings: IMPRESSION: 1. Mild fatty infiltration of the liver, decreased since 05/10/2018. 2. Status post cholecystectomy. 3. Chronic pancreatitis which is similar to the prior study. 4. Minimal nonobstructing right renal calculus. No ureteral calculi are evident and there is no evidence of obstructive uropathy. ED provider has reviewed this report. Abdominal Pain Fem Course/Dx - Course Course Of Treatment: Patient is a 53 y/o F presenting with diffuse abd pain radiating to her back onset 1400. She had a routine colonoscopy [address] Reynoso, GI. Associated sx: n/d, mild dizziness. Pert PMHx: pancreatitis, cholecystectomy. PE finds LUQ, R-mid, and periumbilical tenderness; tachycardia with normal lung sounds. Lab results show WBC: 14.3, glucose: 175, alk phosphatase: 135, lipase: under 10. UA results show 1+ protein, 1+ blood, 3 + leukocyte esterase, 3+ WBC, 3+ RBC, squamous epithelia present and 3+ bacteria. ABD/PEL CT shows "1. Mild fatty infiltration of the liver, decreased since 05/10/2018. 2. Status post cholecystectomy. 3. Chronic pancreatitis which is similar to the prior study. 4. Minimal nonobstructing right renal calculus. No ureteral calculi are evident and there is no evidence of obstructive uropathy.". Pt given Maalox and Rocephin in ED. Will discharge patient home with Cefednir and to f/u with PCP. - Diagnoses Provider Diagnoses: UTI (urinary tract infection) Discharge - Sign-Out/Discharge Documenting (check all that apply): Patient Departure - D/C Patient Received Moderate/Deep Sedation with Procedure: No - Discharge Plan Condition: Stable Disposition: HOME Prescriptions: Cefdinir [Cefdinir 300 MG CAP] 300 mg PO BID #10 capsule Patient Education Materials: Urinary Tract Infection in Women (ED) Print Language: HEBREW Referrals: Rosa Schroeder MD [Primary Care Provider] - - Attestation Statements Document Initiated by Scribe: Yes Documenting Scribe: Rober Borja Provider For Whom Scribe is Documenting (Include Credential): Dr. Temi Trujillo MD Scribe Attestation: I, Rober Borja, scribed for Dr. Temi Trujillo MD on at 0526. Status of Scribe Document: Ready
[2019-01-23 23:26] LABS: Hematocrit 42 % (35-47); Hemoglobin 13.6 g/dL (12.0-16.0); Mean Corpuscular HGB Conc 33 g/dL (31-36); Mean Corpuscular Hemoglobin 30 pg (27-31); Mean Corpuscular Volume 91 fL (80-97); Mean Platelet Volume 8.9 fL (7.4-10.4); Platelet Count 259 10^3/uL (150-450); Red Blood Count 4.59 10^6 /uL (3.70-4.87); Red Cell Distribution Width 15 % (10-15); White Blood Count 14.3 10^3/uL (3.5-10.8)
[2019-01-23 23:45] LABS: ALT 44 U/L (7-52); AST 43 U/L (13-39); Albumin 3.6 g/dL (3.2-5.2); Albumin/Globulin Ratio 1.2 (1-3); Alkaline Phosphatase 135 U/L (34-104); Anion Gap 8 mmol/L (2-11); BUN/Creatinine Ratio 20.4 (8-20); Blood Urea Nitrogen 20 mg/dL (6-24); C Reactive Protein 2.94 mg/L (<8.01); CO2 Carbon Dioxide 26 mmol/L (22-32); Calcium 9.6 mg/dL (8.6-10.3); Chloride 105 mmol/L (101-111); EGFR African American 72.1 (>60); EGFR Non-African American 59.6 (>60); Globulin 3.1 g/dL (2-4); Glucose 175 mg/dL (70-100); Potassium 4.4 mmol/L (3.5-5.0); Sodium 139 mmol/L (135-145); Total Protein 6.7 g/dL (6.4-8.9)
[2019-01-24] MEDS ORDERED: Al Hydrox/Mg Hydrox/Simet LIQ* 30 ML UDC PO ONE (00:08)
[2019-01-24 00:48] LABS: ABS Basophils 0.1 10^3/ul (0-0.2); ABS Eosinophils 0.2 10^3/ul (0-0.6); ABS Lymphocytes 3.9 10^3/ul (1.0-4.8); ABS Monocytes 0.7 10^3/ul (0-0.8); ABS Neutrophils 9.4 10^3/ul (1.5-7.7); Eosinophil % 1.4 %; Lymphocyte % 27.3 %
[2019-01-24 01:04] LABS: Urine Appearance Turbid; Urine Bacteria 3+ (Absent); Urine Bilirubin Negative (Negative); Urine Blood 1+ (Negative); Urine Color Yellow; Urine Glucose Negative (Negative); Urine Ketones Negative (Negative); Urine Nitrite Negative (Negative); Urine Protein 1+(30 mg/dL) (Negative); Urine Red Blood Cell 3+(>10/hpf) (Absent); Urine Specific Gravity 1.012 (1.010-1.030); Urine Squamous Epithelial Cell Present (Absent); Urine Urobilinogen Negative (Negative); Urine White Blood Cell 3+(>20/hpf) (Absent)
[2019-01-24] MEDS ORDERED: cefTRIAXone(*) 1 GM in NS 0.9% 50 ML* 50 ML IVPB ONE (03:14)
[2019-01-24] MEDS ORDERED: Lidocaine 1%** 5 ML VIAL IM ONE (03:49)
[2019-01-24] MEDS ORDERED: cefTRIAXone VIAL(*) 1,000 MG VIAL IM ONE (03:49)
[2019-01-24 05:52] VITALS: BP 130/90
--- NOTE | 2019-01-26 05:56 | PN ---
Progress Note - Progress Note Date of Service: 01/26/19 Note: Patient's preliminary urine culture grew Escherichia coli 25-50,000. Patient placed on cefdinir. Will wait for final culture for sensitivity
== END 2019-01-24 05:51 | disposition home or self-care (01) ==
LOC: ED 21:42
DX: N39.0 Urinary tract infection, site not specified (principal); R10.12 Left upper quadrant pain; M54.9 Dorsalgia, unspecified; Z88.0 Allergy status to penicillin; Z88.2 Allergy status to sulfonamides; E11.9 Type 2 diabetes mellitus without complications; I10 Essential (primary) hypertension; R19.7 Diarrhea, unspecified; F17.210 Nicotine dependence, cigarettes, uncomplicated
CPT/HCPCS: 36415; 74176; 80053; 81003; 81015; 83605; 83690; 85025; 86140; 87077; 87086; 87186; 96372; 99283; A9270-GY; J0696

== ENCOUNTER 2019-01-28 19:40 | Emergency (ER) | payer MEDICARE, MEDICAID ==
--- NOTE | 2019-01-28 19:59 | ED ---
GI/ HPI - HPI Summary HPI Summary: This patient is a 53 year old F brought to ED by EMS with a chief complaint of abdominal pain since 01/23/19. Patient was diagnosed with UTI on 01/23/19 and was prescribed antibiotics, but she states they are not working. She has a hard time sitting due to the pain. Patient states her blood sugar has increased due to the antibiotic. The patient rates the pain 6/10 in severity. Symptoms aggravated by nothing. Symptoms alleviated by nothing. Patient reports mild diarrhea, dysuria, difficulty drinking, tiredness, sluggish, thirsty. Patient denies vomiting, change in appetite. - History of Current Complaint Chief Complaint: EDUrogenitalProblems Time Seen by Provider: 01/28/19 19:50 Stated Complaint: ABD PAIN PER EMS Hx Obtained From: Patient Hx Last Menstrual Period: "last month" Onset/Duration: Started Days Ago - 01/23/19, Still Present Timing: Constant, Lasting Days - Since 01/23/19 Severity: Moderate Current Severity: Moderate Pain Intensity: 6 Associated Signs and Symptoms: Positive: Weakness, Diarrhea, Dysuria, Abdominal Pain, Other: - Tiredness, sluggish, thirsty, difficulty drinking. Negative: Vomiting, Change in Appetite Aggravating Factor(s): Nothing Alleviating Factor(s): Nothing - Additional Pertinent History Primary Care Physician: RICKY - Allergy/Home Medications Allergies/Adverse Reactions: Allergies Allergy/AdvReac Type Severity Reaction Status Date / Time lurasidone [From Latuda] Allergy Severe Altered Verified 01/23/19 22:36 Mental Status ciprofloxacin Allergy Intermediate Dizziness Verified 01/23/19 22:36 latex Allergy Mild Rash Verified 01/23/19 22:36 lithium Allergy Mild See Comment Verified 01/23/19 22:36 nalbuphine Allergy Unknown Verified 01/23/19 22:36 Reaction Details naldemedine Allergy Unknown Verified 01/23/19 22:36 Reaction Details Penicillins Allergy Rash Verified 01/23/19 22:36 perphenazine Allergy Unknown Verified 01/23/19 22:36 Reaction Details Sulfa (Sulfonamide Allergy Hives Verified 01/23/19 22:36 Antibiotics) tramadol Allergy Altered Verified 01/23/19 22:36 Mental Status ENVIRONMENTAL Allergy Mild SINUS Uncoded 01/17/19 14:01 PMH/Surg Hx/FS Hx/Imm Hx Previously Healthy: No Endocrine/Hematology History: Reports: Hx Diabetes, Hx Thyroid Disease, Other Endocrine/Hematological Disorders - Chronic pancreatitis Denies: Hx Anticoagulant Therapy Cardiovascular History: Reports: Hx Hypertension, Other Cardiovascular Problems/ Disorders - HX OF PSVT 04/2008 Denies: Hx Pacemaker/ICD Respiratory History: Reports: Hx Asthma, Hx Seasonal Allergies, Hx Sleep Apnea - HX OF IN THE PAST Denies: Hx Chronic Bronchitis, Hx Chronic Obstructive Pulmonary Disease (COPD ), Hx Cystic Fibrosis, Hx Lung Cancer, Hx Pleural Effusion, Hx Pneumonia, Hx Pulmonary Edema, Hx Pulmonary Embolism, Other Respiratory Problems/Disorders GI History: Reports: Hx Gall Bladder Disease, Hx Gastroesophageal Reflux Disease - ON MEDICATION FOR, Hx Gastrointestinal Bleed, Hx Irritable Bowel, Other GI Disorders - HX OF pancreatitis- STATES LAST ABOUT 2 WEEKS AGO- STATES SLIGHT CASE Denies: Hx Ulcer History: Reports: Other Problems/Disorders - urinary incontinence Denies: Hx Dialysis, Hx Renal Disease Musculoskeletal History: Reports: Hx Arthritis, Hx Back Problems, Other Musculoskeletal History - GEN MUSCULOSKELETAL PAIN Denies: Hx Rheumatoid Arthritis, Hx Bursitis, Hx Congenital Bone Abnormalities, Hx Fibromyalgia, Hx Gout, Hx Orthopedic Injury, Hx Osteoporosis, Hx Scoliosis, Hx Tendonitis Sensory History: Reports: Hx Contacts or Glasses, Hx Vision Problem Denies: Hx Cataracts, Hx Eye Injury, Hx Eye Prosthesis, Hx Glaucoma, Hx Macular Degeneration, Hx Hearing Aid, Other Sensory Impairments Opthamlomology History: Reports: Hx Contacts or Glasses, Hx Vision Problem Denies: Hx Cataracts, Hx Eye Injury, Hx Eye Prosthesis, Hx Glaucoma, Hx Macular Degeneration, Other Sensory Impairments Neurological History: Reports: Hx Developmental Delay - intellectual disability , Hx Seizures - STATES WITH ALLERGIC REACTION TO TRAMADOL Denies: Hx Dementia, Hx Headaches, Other Neuro Impairments/Disorders Psychiatric History: Reports: Hx Anxiety, Hx Depression, Hx Post Traumatic Stress Disorder, Hx Inpatient Treatment, Hx Community Mental Health Tx, Hx Bipolar Disorder - pt manic, Hx Suicide Attempt, Hx of Violent Episodes Against Others, Other Psychiatric Issues/Disorders - PSYCHOSIS NOS, HX OF PTSD, SCHIZOAFFECTIVE DISORDER, BORDERLINE PERSONALITY Denies: Hx Attention Deficit Hyperactivity Disorder, Hx Eating Disorder, Hx Panic Disorder, Hx Schizophrenia, Hx Substance Abuse - Cancer History Cancer Type, Location and Year: None reported - Surgical History Surgery Procedure, Year, and Place: 2011-CATARACT EXTRACTION. GALLBLADDER REMOVED Hx Anesthesia Reactions: No - Immunization History Date of Tetanus Vaccine: unk Date of Influenza Vaccine: fall 2017 Infectious Disease History: No Infectious Disease History: Denies: Hx Clostridium Difficile, Hx Hepatitis, Hx Human Immunodeficiency Virus (HIV), Hx of Known/Suspected MRSA, Hx Shingles, Hx Tuberculosis, Hx Known/ Suspected VRE, Hx Known/Suspected VRSA, History Other Infectious Disease, Traveled Outside the [place] in Last 30 Days - Family History Known Family History: Positive: Other - Anxiety and depression, [place] - father Negative: Cardiac Disease, Hypertension, Diabetes Family History: Depression and anxiety - Social History Alcohol Use: None Hx Substance Use: No Substance Use Type: Reports: None Hx Tobacco Use: Yes Smoking Status (MU): Current Every Day Smoker Type: Cigarettes Amount Used/How Often: 1/2 PPD FOR LAST 30 DAYS, NO OTHER TOBACCO Length of Time of Smoking/Using Tobacco: since she was "young" Have You Smoked in the Last Year: Yes - Patient has smoked within the last 30 days Review of Systems Gastrointestinal: Negative - Change in appetite, Other - Difficulty drinking, thirsty Positive: Abdominal Pain, Diarrhea. Negative: Vomiting Positive: dysuria Neurological: Other - Sluggish, tiredness All Other Systems Reviewed And Are Negative: Yes Physical Exam - Summary Physical Exam Summary: Appearance: Well appearing, no pain distress Skin: warm, dry, reflects adequate perfusion Head/face: normal Eyes: EOMI, JENNIFER ENT: normal Neck: supple, non-tender Respiratory: CTA, breath sounds present Cardiovascular: RRR, pulses symmetrical Abdomen: tenderness over epigastric area Musculoskeletal: normal, strength/ROM intact Neuro: normal, sensory motor intact, A&Ox3 Triage Information Reviewed: Yes Vital Signs On Initial Exam: Initial Vitals Temp Pulse Resp BP Pulse Ox 98 F 70 18 145/87 99 01/28/19 19:43 01/28/19 19:43 01/28/19 19:43 01/28/19 19:43 01/28/19 19:43 Vital Signs Reviewed: Yes Diagnostics - Vital Signs Vital Signs Temp Pulse Resp BP Pulse Ox 01/28/19 19:43 98 F 70 18 145/87 99 - Laboratory Result Diagrams: 01/28/19 20:29 01/28/19 20:29 Lab Statement: Any lab studies that have been ordered have been reviewed, and results considered in the medical decision making process. - Radiology Abdomen XR Radiology Interpretation Completed By: ED Physician Summary of Radiographic Findings: No active processes. Pending official radiology report. - EKG 2007 Cardiac Rate: NL - 98 BPM EKG Rhythm: Sinus Rhythm ST Segment: Normal Ectopy: None Summary of EKG Findings: NSR at 98 BPM, no acute changes. Re-Evaluation - Re-Evaluation First Eval Re-Evaluation Time: 22:08 Comment: Discussed results with patient. Patient will be discharged home with dx of UTI and abdominal pain. Patient understands and agrees with this plan. GIGU Course/Dx - Course Course Of Treatment: This patient is a 53 year old F brought to ED by EMS with a chief complaint of abdominal pain since 01/23/19. In the ED course, patient received fluids. EKG at 2007 revealed NSR at 98 BPM, no acute changes. Blood work and UA obtained. KUB revealed no active processes, pending official radiology report. Patient recently had a CT of the abdomen done on 01/24/19 which showed no acute abdomen. Patient will be discharged with dx of UTI and abdominal pain and prescriptions for Macrobid and Omeprazole. She will follow- up with her PCP. Patient understands and agrees with this plan. advised to check suahr at home - Diagnoses Differential Diagnoses - Female: Urinary Tract Infection Provider Diagnoses: UTI (urinary tract infection), Abdominal pain, Hyperglycemia Discharge - Sign-Out/Discharge Documenting (check all that apply): Patient Departure - Discharge Patient Received Moderate/Deep Sedation with Procedure: No - Discharge Plan Condition: Stable Disposition: HOME Prescriptions: Nitrofurantoin Monohyd/M-Cryst [Macrobid 100 mg Capsule] 100 mg PO BID #20 cap Nitrofurantoin Monohyd/M-Cryst [Macrobid 100 mg Capsule] 100 mg PO BID #20 cap Omeprazole (Nf) [Prilosec (NF)] 40 mg PO ONCE #30 capsule. Omeprazole (Nf) [Prilosec (NF)] 40 mg PO ONCE #30 capsule. Patient Education Materials: Urinary Tract Infection in Women (ED), Acute Abdominal Pain (ED) Referrals: Rosa Schroeder MD [Primary Care Provider] - 3 Days Additional Instructions: Follow-up with your primary care provider in three days. RETURN TO THE ER FOR WORSENING OR CHANGING SYMPTOMS. - Billing Disposition and Condition Condition: STABLE Disposition: Home - Attestation Statements Document Initiated by Scribe: Yes Documenting Scribe: Gabo Shields Provider For Whom Scribe is Documenting (Include Credential): Corey Easton MD Scribe Attestation: I, Gabo Shields, scribed for Corey Easton MD on 01/28/19 at 2329. Scribe Documentation Reviewed: Yes Provider Attestation: The documentation as recorded by the remigioibeGabo accurately reflects the service I personally performed and the decisions made by me, Corey Easton MD Status of Scribe Document: Viewed
[2019-01-28] MEDS ORDERED: NS 0.9% 1000 ML** 1,000 ML IV SCH (20:15)
[2019-01-28 20:16] LABS: Urine Appearance Turbid; Urine Bacteria 2+ (Absent); Urine Bilirubin Negative (Negative); Urine Blood 2+ (Negative); Urine Color Yellow; Urine Glucose 3+(>=500 mg/dL) (Negative); Urine Ketones Negative (Negative); Urine Nitrite Negative (Negative); Urine Protein Negative (Negative); Urine Red Blood Cell 3+(>10/hpf) (Absent); Urine Specific Gravity 1.016 (1.010-1.030); Urine Squamous Epithelial Cell Present (Absent); Urine Transitional Epithelial Present (Absent); Urine Urobilinogen Negative (Negative); Urine White Blood Cell 3+(>20/hpf) (Absent)
[2019-01-28 20:37] LABS: ABS Basophils 0.1 10^3/ul (0-0.2); ABS Eosinophils 0.2 10^3/ul (0-0.6); ABS Lymphocytes 2.8 10^3/ul (1.0-4.8); ABS Monocytes 0.6 10^3/ul (0-0.8); ABS Neutrophils 7.2 10^3/ul (1.5-7.7); Eosinophil % 1.5 %; Hematocrit 43 % (35-47); Hemoglobin 14.3 g/dL (12.0-16.0); Lymphocyte % 25.6 %; Mean Corpuscular HGB Conc 34 g/dL (31-36); Mean Corpuscular Hemoglobin 30 pg (27-31); Mean Corpuscular Volume 91 fL (80-97); Mean Platelet Volume 9.3 fL (7.4-10.4); Platelet Count 228 10^3/uL (150-450); Red Blood Count 4.72 10^6 /uL (3.70-4.87); Red Cell Distribution Width 15 % (10-15); White Blood Count 10.8 10^3/uL (3.5-10.8)
[2019-01-28 20:45] LABS: Activated Partial Thrombo Time 28.8 seconds (26.0-38.0); INR 0.92 (0.82-1.09)
[2019-01-28 20:55] LABS: Albumin 3.9 g/dL (3.2-5.2); Albumin/Globulin Ratio 1.1 (1-3); BUN/Creatinine Ratio 18.8 (8-20); C Reactive Protein 5.53 mg/L (<8.01); Calcium 9.8 mg/dL (8.6-10.3); EGFR African American 73.8 (>60); Globulin 3.4 g/dL (2-4); Total Bilirubin 0.2 mg/dL (0.2-1.0); Total Protein 7.3 g/dL (6.4-8.9)
[2019-01-28 21:02] LABS: HCG Pregnancy 3.01 mIU/mL
[2019-01-28 22:22] VITALS: BP 140/96
== END 2019-01-28 22:21 | disposition home or self-care (01) ==
LOC: ED 19:40
DX: N39.0 Urinary tract infection, site not specified (principal); E11.65 Type 2 diabetes mellitus with hyperglycemia; I10 Essential (primary) hypertension; F17.210 Nicotine dependence, cigarettes, uncomplicated
CPT/HCPCS: 36415; 74018; 80053; 81003; 81015; 83605; 83690; 84484; 84702; 85025; 85610; 85730; 86140; 87077; 87086; 87186; 93005; 99282

== ENCOUNTER 2019-02-01 16:09 | Observation (INO) | payer MEDICARE, MEDICAID ==
[2019-02-01] MEDS ORDERED: NS 0.9% 1000 ML** 1,000 ML IV ONE ×2 (17:06→19:46)
--- NOTE | 2019-02-01 17:35 | ED ---
GI/ HPI - HPI Summary HPI Summary: The patient is a 53 y/o F presenting to [facility] with a chief complaint of gradual worsening of UTI today. She reports that she had been recently diagnosed with UTI and is currently on abx, but she doesn't think her symptoms are improving because today she has had new symptoms of generalized weakness, fatigue, lethargy, and decreased urinary output. Currently her symptoms are rated 6/10 in severity. She denies dysuria, hematuria, urinary frequency, nausea, vomiting , diarrhea, and constipation. Hx of DM, thyroid disease, pancreatitis, HTN, asthma, GERD, GI bleed, gallbladder disease, IBS, seizures. Current cigarette smoker, no EtOH, no substance use. - History of Current Complaint Chief Complaint: EDUrogenitalProblems Time Seen by Provider: 02/01/19 17:05 Stated Complaint: "UTI PER EMS" Hx Obtained From: Patient Hx Last Menstrual Period: "last month" Onset/Duration: Started Days Ago, Still Present Timing: Lasting Days Severity: Mild Current Severity: Moderate Pain Intensity: 6 Location of Pain: Other - overall discomfort Associated Signs and Symptoms: Positive: Weakness, Other: - POSITIVE: fatigue, lethargy, decreased urinary output; NEGATIVE: urinary frequency, diarrhea, constipation. Negative: Nausea, Vomiting, Hematuria, Dysuria Aggravating Factor(s): Nothing Alleviating Factor(s): Nothing - Additional Pertinent History Primary Care Physician: RICKY - Allergy/Home Medications Allergies/Adverse Reactions: Allergies Allergy/AdvReac Type Severity Reaction Status Date / Time lurasidone [From Latuda] Allergy Severe Altered Verified 02/01/19 16:13 Mental Status ciprofloxacin Allergy Intermediate Dizziness Verified 02/01/19 16:13 latex Allergy Mild Rash Verified 02/01/19 16:13 lithium Allergy Mild See Comment Verified 02/01/19 16:13 nalbuphine Allergy Unknown Verified 02/01/19 16:13 Reaction Details naldemedine Allergy Unknown Verified 02/01/19 16:13 Reaction Details Penicillins Allergy Rash Verified 02/01/19 16:13 perphenazine Allergy Unknown Verified 02/01/19 16:13 Reaction Details Sulfa (Sulfonamide Allergy Hives Verified 02/01/19 16:13 Antibiotics) tramadol Allergy Altered Verified 02/01/19 16:13 Mental Status ENVIRONMENTAL Allergy Mild SINUS Uncoded 01/17/19 14:01 PMH/Surg Hx/FS Hx/Imm Hx Endocrine/Hematology History: Reports: Hx Diabetes, Hx Thyroid Disease, Other Endocrine/Hematological Disorders - Chronic pancreatitis Denies: Hx Anticoagulant Therapy Cardiovascular History: Reports: Hx Hypertension, Other Cardiovascular Problems/ Disorders - HX OF PSVT 04/2008 Denies: Hx Hypercholesterolemia, Hx Pacemaker/ICD Respiratory History: Reports: Hx Asthma, Hx Seasonal Allergies, Hx Sleep Apnea - HX OF IN THE PAST Denies: Hx Chronic Bronchitis, Hx Chronic Obstructive Pulmonary Disease (COPD ), Hx Cystic Fibrosis, Hx Lung Cancer, Hx Pleural Effusion, Hx Pneumonia, Hx Pulmonary Edema, Hx Pulmonary Embolism, Other Respiratory Problems/Disorders GI History: Reports: Hx Gall Bladder Disease, Hx Gastroesophageal Reflux Disease - ON MEDICATION FOR, Hx Gastrointestinal Bleed, Hx Irritable Bowel, Other GI Disorders - HX OF pancreatitis- STATES LAST ABOUT 2 WEEKS AGO- STATES SLIGHT CASE Denies: Hx Ulcer History: Reports: Other Problems/Disorders - urinary incontinence Denies: Hx Dialysis, Hx Renal Disease Musculoskeletal History: Reports: Hx Arthritis, Hx Back Problems, Other Musculoskeletal History - GEN MUSCULOSKELETAL PAIN Denies: Hx Rheumatoid Arthritis, Hx Bursitis, Hx Congenital Bone Abnormalities, Hx Fibromyalgia, Hx Gout, Hx Orthopedic Injury, Hx Osteoporosis, Hx Scoliosis, Hx Tendonitis Sensory History: Reports: Hx Contacts or Glasses, Hx Vision Problem Denies: Hx Cataracts, Hx Eye Injury, Hx Eye Prosthesis, Hx Glaucoma, Hx Macular Degeneration, Hx Hearing Aid, Other Sensory Impairments Opthamlomology History: Reports: Hx Contacts or Glasses, Hx Vision Problem Denies: Hx Cataracts, Hx Eye Injury, Hx Eye Prosthesis, Hx Glaucoma, Hx Macular Degeneration, Other Sensory Impairments Neurological History: Reports: Hx Developmental Delay - intellectual disability , Hx Seizures - STATES WITH ALLERGIC REACTION TO TRAMADOL Denies: Hx Dementia, Hx Headaches, Other Neuro Impairments/Disorders Psychiatric History: Reports: Hx Anxiety, Hx Depression, Hx Post Traumatic Stress Disorder, Hx Inpatient Treatment, Hx Community Mental Health Tx, Hx Bipolar Disorder - pt manic, Hx Suicide Attempt, Hx of Violent Episodes Against Others, Other Psychiatric Issues/Disorders - PSYCHOSIS NOS, HX OF PTSD, SCHIZOAFFECTIVE DISORDER, BORDERLINE PERSONALITY Denies: Hx Attention Deficit Hyperactivity Disorder, Hx Eating Disorder, Hx Panic Disorder, Hx Schizophrenia, Hx Substance Abuse - Cancer History Cancer Type, Location and Year: None reported - Surgical History Surgery Procedure, Year, and Place: 2011-CATARACT EXTRACTION. GALLBLADDER REMOVED Hx Anesthesia Reactions: No - Immunization History Date of Tetanus Vaccine: unk Date of Influenza Vaccine: fall 2017 Infectious Disease History: No Infectious Disease History: Denies: Hx Clostridium Difficile, Hx Hepatitis, Hx Human Immunodeficiency Virus (HIV), Hx of Known/Suspected MRSA, Hx Shingles, Hx Tuberculosis, Hx Known/ Suspected VRE, Hx Known/Suspected VRSA, History Other Infectious Disease, Traveled Outside the [place] in Last 30 Days - Family History Known Family History: Positive: Other - Anxiety and depression, [place] - father Negative: Cardiac Disease, Hypertension, Diabetes Family History: Depression and anxiety - Social History Alcohol Use: None Hx Substance Use: No Substance Use Type: Reports: None Hx Tobacco Use: Yes Smoking Status (MU): Current Every Day Smoker Type: Cigarettes Amount Used/How Often: 1/2 PPD FOR LAST 30 DAYS, NO OTHER TOBACCO Length of Time of Smoking/Using Tobacco: since she was "young" Have You Smoked in the Last Year: Yes - Patient has smoked within the last 30 days Review of Systems Positive: Fatigue, Other - lethargic Positive: Other - NEGATIVE: constipation. Negative: Vomiting, Diarrhea, Nausea Positive: other - decreased urinary output. Negative: dysuria, frequency, hematuria Positive: Weakness - generalized All Other Systems Reviewed And Are Negative: Yes Physical Exam - Summary Physical Exam Summary: VITAL SIGNS: Reviewed. GENERAL: Patient is a well-developed but obese female who is lying comfortable in the stretcher. Patient is not in any acute respiratory distress. HEAD AND FACE: No signs of trauma. No ecchymosis, hematomas or skull depressions. No sinus tenderness. EYES: PERRLA, EOMI x 2, No injected conjunctiva, no nystagmus. EARS: Hearing grossly intact. Ear canals and tympanic membranes are within normal limits. MOUTH: Oropharynx within normal limits. NECK: Supple, trachea is midline, no adenopathy, no JVD, no carotid bruit, no c- spine tenderness, neck with full ROM. CHEST: Symmetric, no tenderness at palpation. LUNGS: Clear to auscultation bilaterally. No wheezing or crackles. CVS: Regular rate and rhythm, S1 and S2 present, no murmurs or gallops appreciated. ABDOMEN: Soft, non-tender. No signs of distention. No rebound, no guarding, and no masses palpated. Bowel sounds are normal. EXTREMITIES: FROM in all major joints, no edema, no cyanosis or clubbing. NEURO: Alert and oriented x 3. No acute neurological deficits. Speech is normal and follows commands. SKIN: Dry and warm. Triage Information Reviewed: Yes Vital Signs On Initial Exam: Initial Vitals Temp Pulse Resp BP Pulse Ox 98.1 F 98 17 103/69 96 02/01/19 16:13 02/01/19 16:13 02/01/19 16:13 02/01/19 16:13 02/01/19 16:13 Vital Signs Reviewed: Yes Diagnostics - Vital Signs Vital Signs Temp Pulse Resp BP Pulse Ox 02/01/19 16:44 88 15 91/62 95 02/01/19 16:14 95 103/69 96 02/01/19 16:13 98.1 F 98 17 103/69 96 - Laboratory Result Diagrams: 02/01/19 18:55 02/01/19 18:55 Lab Statement: Any lab studies that have been ordered have been reviewed, and results considered in the medical decision making process. - Radiology CXR Radiology Interpretation Completed By: Radiologist Summary of Radiographic Findings: No active cardiopulmonary disease. ED physician has reviewed this report. Re-Evaluation - Re-Evaluation First Eval Re-Evaluation Time: 20:45 Comment: I discussed results and admission with the patient. GIGU Course/Dx - Course Assessment/Plan: The patient is a 53 y/o F presenting to [facility] with a chief complaint of gradual worsening of UTI today. She reports that she had been recently diagnosed with UTI and is currently on abx, but she doesn't think her symptoms are improving because today she has had new symptoms of generalized weakness, fatigue, lethargy, and decreased urinary output. Currently her symptoms are rated 6/10 in severity. She denies dysuria, hematuria, urinary frequency, nausea, vomiting, diarrhea, and constipation. Hx of DM, thyroid disease, pancreatitis, HTN, asthma, GERD, GI bleed, gallbladder disease, IBS, seizures. Current cigarette smoker, no EtOH, no substance use. Blood test results without any significant abnormality except for WBCs of 16.2, potassium of 3.4, glucose of 54, calcium of 8.3, alkaline phosphatase of 111, and total protein of 5.8. Chest x-ray impression: No active Pulmonary disease. The patient s urine culture from 6/30/19 is sensitive for Rocephin. The patient became hypotensive; therefore the patient was given 2 L of IV fluids. Now the patient is responding better. However, I discussed my physical exam and findings with and Dr. Leavitt from the hospitalist services who accepted the patient for admission. - Diagnoses Provider Diagnoses: UTI (urinary tract infection) - Physician Notifications Discussed Care Of Patient With: Avery Leavitt - hospitalist Time Discussed With Above Provider: 20:44 Instructed by Provider To: Other - I discussed the patient's care with Dr. Leavitt , and he accepts the patient for admission. Discharge - Sign-Out/Discharge Documenting (check all that apply): Patient Departure - Patient is accepted for admission by Dr. Leavitt. Patient Received Moderate/Deep Sedation with Procedure: No - Discharge Plan Condition: Stable Disposition: ADMITTED TO [facility] Referrals: Rosa Schroeder MD [Primary Care Provider] - - Billing Disposition and Condition Condition: STABLE Disposition: Admitted to [facility] - Attestation Statements Document Initiated by Noam: Yes Documenting Scribe: Elida Stout Provider For Whom Noam is Documenting (Include Credential): Dr. Maycol Al MD Scribe Attestation: I, Elida Stout, scribed for Dr. Maycol Al MD on 02/01/19 at 2109. Scribe Documentation Reviewed: Yes Provider Attestation: The documentation as recorded by the Elida roth accurately reflects the service I personally performed and the decisions made by me, Dr. Maycol Al MD Status of Scribe Document: Ready
[2019-02-01 19:06] LABS: ABS Basophils 0.1 10^3/ul (0-0.2); ABS Eosinophils 0.2 10^3/ul (0-0.6); ABS Lymphocytes 3.7 10^3/ul (1.0-4.8); ABS Monocytes 0.8 10^3/ul (0-0.8); ABS Neutrophils 11.5 10^3/ul (1.5-7.7); Hematocrit 36 % (35-47); Hemoglobin 12.2 g/dL (12.0-16.0); Lymphocyte % 22.7 %; Mean Corpuscular HGB Conc 33 g/dL (31-36); Mean Corpuscular Hemoglobin 30 pg (27-31); Mean Corpuscular Volume 90 fL (80-97); Mean Platelet Volume 9.2 fL (7.4-10.4); Platelet Count 224 10^3/uL (150-450); Red Blood Count 4.03 10^6 /uL (3.70-4.87); Red Cell Distribution Width 15 % (10-15); White Blood Count 16.2 10^3/uL (3.5-10.8)
[2019-02-01 19:16] LABS: Activated Partial Thrombo Time 27.7 seconds (26.0-38.0); Fibrinogen 348.6 mg/dL (110.8-404.3); INR 0.95 (0.82-1.09)
[2019-02-01 19:24] LABS: Albumin 3.3 g/dL (3.2-5.2); Albumin/Globulin Ratio 1.3 (1-3); BUN/Creatinine Ratio 16.7 (8-20); C Reactive Protein 5.48 mg/L (<8.01); Calcium 8.3 mg/dL (8.6-10.3); EGFR African American 93.8 (>60); EGFR Non-African American 77.6 (>60); Globulin 2.5 g/dL (2-4); Potassium 3.4 mmol/L (3.5-5.0); Total Bilirubin 0.2 mg/dL (0.2-1.0); Total Protein 5.8 g/dL (6.4-8.9)
[2019-02-01 19:26] LABS: Troponin I 0.01 ng/mL (<0.04)
[2019-02-01] MEDS ORDERED: cefTRIAXone(*) 1 GM in NS 0.9% 50 ML* 50 ML IVPB ONE (19:46)
[2019-02-01 19:53] LABS: Urine Appearance Clear; Urine Bacteria Absent (Absent); Urine Bilirubin Negative (Negative); Urine Blood Negative (Negative); Urine Color Yellow; Urine Glucose Negative (Negative); Urine Ketones Negative (Negative); Urine Nitrite Negative (Negative); Urine Protein Negative (Negative); Urine Red Blood Cell Absent (Absent); Urine Specific Gravity 1.005 (1.010-1.030); Urine Urobilinogen Negative (Negative); Urine White Blood Cell Trace(0-5/hpf) (Absent)
[2019-02-01 20:18] LABS: Erythrocyte Sed Rate 33 mm/Hr (0-29)
[2019-02-01] MEDS ORDERED: Fluconazole 150 MG TAB PO ONE (21:16)
[2019-02-01] MEDS ORDERED: Acetaminophen TAB* 325 MG PO PRN (21:18)
[2019-02-01] MEDS ORDERED: Lactated Ringers 1000 ML Bag* 1,000 ML IV ONE (21:29)
[2019-02-01] MEDS ORDERED: Loperamide CAP* 2 MG PO PRN (21:44)
[2019-02-01] MEDS ORDERED: Metoclopramide TAB* 10 MG PO PRN (21:44)
[2019-02-01] MEDS ORDERED: hydrOXYzine HCL TAB* 25 MG PO PRN (21:44)
[2019-02-01] MEDS ORDERED: Ibuprofen TAB* 600 MG PO PRN (21:44)
[2019-02-01] MEDS ORDERED: Albuterol HFA INHALER* 8 gm MDI INH PRN (21:44)
[2019-02-01] MEDS ORDERED: Al Hydrox/Mg Hydrox/Simet LIQ* 30 ML UDC PO PRN (21:44)
[2019-02-01] MEDS ORDERED: Naproxen TAB* 250 MG PO PRN (21:44)
[2019-02-01] MEDS ORDERED: Polyethylene Glycol 3350* 17 GM PACKET PO PRN (21:44)
[2019-02-01] MEDS ORDERED: NICOTINE 10 MG INH PRN (21:44)
[2019-02-01] MEDS ORDERED: Cetirizine* 10 MG TAB PO PRN (21:44)
[2019-02-01] MEDS ORDERED: Potassium Chlor TAB* 20 MEQ TAB.ER PO ONE (22:09)
[2019-02-01] MEDS: OLANzapine TAB* 5 MG PO SCH (23:41)
[2019-02-01] MEDS: lamoTRIgine TAB(*) 100 MG PO SCH (23:42)
[2019-02-01] MEDS: traZODone TAB* 100 MG PO SCH (23:42)
[2019-02-01] MEDS: Atorvastatin* 20 MG TAB PO SCH (23:42)
[2019-02-01] MEDS: Enoxaparin(*) 40 MG/0.4 ML SYR SUBCUT SCH (23:42)
[2019-02-01] MEDS: Insulin GLARGINE(*) 1 UNITS UNIT SUBCUT SCH (23:42)
[2019-02-01] MEDS: Ondansetron INJ* 2 MG/ML VIAL IV PRN (23:42)
[2019-02-02] MEDS ORDERED: Dextrose 50% Syringe 50 ML* 25 GM/50 ML SYRINGE IV PUSH PRN (00:10)
--- NOTE | 2019-02-02 01:49 | HP ---
CC: Dr. Rosa Schroeder * HISTORY AND PHYSICAL: DATE OF ADMISSION: 02/01/19 PROVIDER: Shira Anand NP ATTENDING PHYSICIAN: Avery Leavitt MD * (dictated by Shira Anand NP) PRIMARY CARE PROVIDER: Dr. Rosa Schroeder. CHIEF COMPLAINT: Abdominal pain and difficulty urinating. HISTORY OF PRESENT ILLNESS: Ms. Schulz is a 53-year-old female, well known to the hospitalist service, who presents today to the ER complaining of difficulty urinating and persistent bladder and flank pain for several days. The patient was seen in the ER on 01/23/19 and then again on 01/28/19 for complaints of abdominal pain and difficulty urinating. She was diagnosed with a UTI and started on nitrofurantoin on 01/28/19. She was followed up with her PCP on 09/19, who recommended she continue on nitrofurantoin. Tayrn states that the pain has not improved and that she continues to have difficulty urinating. She has intermittent back pain. She also endorses burning and yeast infection and states that her PCP had prescribed some medication, but she never received it. She reports having cold chills and subjective fever. She denies chest pain, leg swelling, cough, shortness of breath. She does endorse some nausea and again endorses suprapubic pain as well as dysuria and vaginal burning. In the ER, she was noted to have a WBC count of 16.2, ESR of 33, CRP of 5.48, glucose of 54, and her blood pressure decreasing over the course of her stay in the ER with concern for developing sepsis. Given these findings, Hospital Medicine was consulted for admission. PAST MEDICAL HISTORY: Extensive and includes: 1. Schizoaffective disorder. 2. Borderline personality disorder. 3. Intellectual disability. 4. Major depressive disorder. 5. Type 2 diabetes, on insulin. 6. Hypothyroidism. 7. Insomnia. 8. Chronic back pain. 9. GERD. 10. Hyperlipidemia. 11. Constipation. PAST SURGICAL HISTORY: Includes bilateral cataract extraction and cholecystectomy. HOME MEDICATIONS: From the list provided by the [facility]: 1. Lamotrigine 100 mg b.i.d. 2. Trazodone 300 mg at bedtime. 3. Percocet 5/325 1 tab q.4 hours p.r.n. 4. Hydroxyzine 25 mg t.i.d. p.r.n. 5. Polyethylene glycol 17 g daily p.r.n. 6. Pancrelipase 3000 units t.i.d. before meals. 7. Ondansetron 4 mg q.8 hours p.r.n. 8. Olanzapine 5 mg q.a.m. and 10 mg at bedtime. 9. Macrobid 100 mg b.i.d. 10. Nicotine patch 21 mg transdermally q.a.m. 11. Nicotine inhaler 10 mg inhaled q.2 hours p.r.n. 12. Nicotine gum 2 mg q.2 hours p.r.n. 13. Naproxen 500 mg b.i.d. with meals p.r.n. 14. Metoclopramide 10 mg q.6 hours p.r.n. 15. Losartan 50 mg q.a.m. 16. Loratadine 10 mg daily p.r.n. 17. Loperamide 2 mg q.4 hours p.r.n. 18. Levothyroxine 200 mcg Tuesday, Tuesday, Tuesday, , Tuesday, and Tuesday with 400 mcg on Tuesday. 19. Insulin Aspart 26 units subcu t.i.d. with meals. 20. Insulin glargine 70 units subcu at bedtime. 21. Ibuprofen 600 mg t.i.d. p.r.n. 22. Mucinex DM 1 tab b.i.d. p.r.n. 23. Fluticasone nasal spray 6 sprays both nares b.i.d. 24. Fluticasone furoate Ellipta 100 mg inhaled q.a.m. 25. Duloxetine DR 110 mg q.a.m. The patient takes 30, 60, and 20 mg capsule. 26. Cyclobenzaprine 10 mg t.i.d. p.r.n. 27. Atorvastatin 20 mg at bedtime. 28. Albuterol inhaler 2 puffs inhaled q.4 hours p.r.n. 29. Maalox Plus 30 mL q.4 hours p.r.n. ALLERGIES: Include LURASIDONE, CIPROFLOXACIN, LATEX, LITHIUM, NALBUPHINE, NALDEMEDINE, PENICILLINS, PERPHENAZINE, SULFA, TRAMADOL and environmental. FAMILY HISTORY: Noncontributory. SOCIAL HISTORY: Taryn currently resides at [place]. She states she is a current smoker, smokes half a pack per day. Denies alcohol or drug use. Her mother, Chel Acuna, is her surrogate decision maker and healthcare proxy. REVIEW OF SYSTEMS: A 12-point review of systems was completed. All pertinent positives and negatives as per HPI. PHYSICAL EXAMINATION GENERAL: This is an older well-developed female seen today in the ED stretcher , in no acute distress. VITAL SIGNS: Temperature 98.1, heart rate 79, respiratory rate 16, blood pressure 121/63, and O2 saturation is 96% on room air. HEENT: Head is atraumatic, normocephalic. Face is symmetrical. Pupils are equal and round. Extraocular movements are intact. Oral mucosa is moist. There is no oropharyngeal erythema or exudate. NECK: Supple. No lymphadenopathy appreciated. Neck has full range of motion. CARDIAC: Regular rate and rhythm with normal S1, S2 heart sounds. No peripheral edema noted. LUNGS: Clear to auscultation bilaterally. There are scant expiratory wheezes noted in the bases with prolonged expiratory phase. ABDOMEN: Soft, nondistended. There is tenderness with palpation through the suprapubic abdomen. There is no CVA tenderness. MUSCULOSKELETAL: There is no clubbing or cyanosis. There is full range of motion in all 4 extremities. SKIN: Warm and dry. Appears grossly intact. NEUROLOGIC: She is alert and oriented x3. No focal deficits noted. Speech is clear. She is able to make needs known. She follows commands. PSYCHIATRIC: She is somewhat flat in affect, but conversive, not anxious or appearing to be depressed. DIAGNOSTIC STUDIES/LAB DATA: CBC: WBC 16.2, hemoglobin 12.2, hematocrit 36, platelet count 224, ESR 33. CMP: Sodium 139, potassium 3.4, chloride 110, carbon dioxide 24, BUN 13, creatinine 0.78, glucose 54, lactic acid 0.8, calcium 8.3, total bilirubin is 0.2, AST 23, ALT 25, alk phos 101, troponin 0.01 , CRP 5.48, BNP 14, total protein 5.8. Urinalysis done in the ER shows trace leukocyte esterase. Microbiology from her previous ER visit showed growth of E. coli and Enterococcus faecalis from that is sensitive to nitrofurantoin. Chest x-ray shows no acute pulmonary disease. Old medical records were reviewed. ASSESSMENT AND PLAN: Taryn Schulz is a 53-year-old female, who presents today with concern for intractable abdominal pain with intermittent flank pain and concern for persistent urinary tract infection refractory to Macrobid treatment. She will be admitted under OBV status to the medicine floor and plan is as follows: 1. Urinary tract infection. Taryn continues to report persistent abdominal pain and dysuria. She does have a white blood cell count of 16,000 and had a concern for hypotension here in the ER that has responded appropriately to fluid resuscitation. She will be admitted in OBV status. She was started on ceftriaxone here in the ER. We will continue this. We will give her additional liter of fluids, continue to monitor overnight. Additionally, we will treat her symptoms of candidiasis with fluconazole; candidiasis is likely secondary to use of antibiotics for the urinary tract infection. We will continue to monitor for fever and provide supportive care. 2. Hypokalemia. She has mild hypokalemia, we will replace this. 3. Hypoglycemia. She was given food in the ER and repeat blood sugar shows her to be 232. 4. History of bipolar disorder, schizoaffective disorder, depression, and borderline personality disorder. Continue home medications as per her psychiatrist in the community. She will continue her lamotrigine, trazodone, olanzapine and duloxetine, and continue with p.r.n. hydroxyzine as needed. 5. For her history of diabetes, we will continue her on a home regimen of insulin Aspart 26 units subcu with meals and insulin Basaglar 70 units at bedtime. Continue with a.c. and h.s. fingersticks check. 6. For her history of hyperlipidemia, continue atorvastatin. 7. For her history of hypothyroidism, continue levothyroxine per home dosing. We will add on a TSH. 8. For chronic pain, continue home regimen of cyclobenzaprine p.r.n., Percocet p.r.n., NSAIDs. 9. FEN: She is ordered a consistent carbohydrate diet. 10. DVT prophylaxis: She is ordered subcu Lovenox and SCDs. 11. Code status: She is a full code. 12. Disposition. Anticipate discharge back to [place] when medically stable. TIME SPENT: Approximately 60 minutes was spent on this admission with more than half than time spent [id number] with the patient obtaining history and physical, performing physical examination, and reviewing the plan of care. Plan of care was also reviewed with my attending, Dr. Leavitt, who is in agreement. SHIRA ANAND, ALUMINUM SIDING MECH[employer]IC [id number]/[facility] #: [id number] AMBROCIO
[2019-02-02] MEDS: Levothyroxine TAB* 100 MCG TAB PO SCH (05:16)
[2019-02-02] MEDS: Cyclobenzaprine TAB* 10 MG PO PRN ×2 (05:16→20:11)
[2019-02-02 05:46] LABS: ABS Basophils 0.1 10^3/ul (0-0.2); ABS Eosinophils 0.1 10^3/ul (0-0.6); ABS Lymphocytes 2.7 10^3/ul (1.0-4.8); ABS Monocytes 0.5 10^3/ul (0-0.8); ABS Neutrophils 7.1 10^3/ul (1.5-7.7); Eosinophil % 1.3 %; Hematocrit 36 % (35-47); Hemoglobin 12.1 g/dL (12.0-16.0); Lymphocyte % 25.7 %; Mean Corpuscular HGB Conc 33 g/dL (31-36); Mean Corpuscular Hemoglobin 30 pg (27-31); Mean Corpuscular Volume 90 fL (80-97); Mean Platelet Volume 9.6 fL (7.4-10.4); Platelet Count 184 10^3/uL (150-450); Red Blood Count 4.03 10^6 /uL (3.70-4.87); Red Cell Distribution Width 15 % (10-15); White Blood Count 10.5 10^3/uL (3.5-10.8)
[2019-02-02 05:57] LABS: BUN/Creatinine Ratio 12.3 (8-20); EGFR African American 115.8 (>60); EGFR Non-African American 95.7 (>60); Potassium 4.4 mmol/L (3.5-5.0)
[2019-02-02] MEDS: FLUTICASONE FUROATE INH SCH (07:31)
[2019-02-02] MEDS: Insulin LISPRO* 1 UNITS UNIT SUBCUT SCH ×4 (07:50→20:03)
[2019-02-02] MEDS ORDERED: [UNRECOGNIZED DRUG - OTHER] SUBCUT SCH (08:00)
[2019-02-02] MEDS ORDERED: INSULIN ASPART SUBCUT SCH (08:00)
[2019-02-02] MEDS ORDERED: DULoxetine DR CAP* 60 MG CAP.DR PO SCH (09:00)
[2019-02-02] MEDS: lamoTRIgine TAB(*) 100 MG PO SCH ×2 (09:56→20:01)
[2019-02-02] MEDS: Phenazopyridine TAB* 100 MG PO SCH ×3 (09:56→20:02)
[2019-02-02] MEDS: OLANzapine TAB* 5 MG PO SCH ×2 (09:57→20:02)
[2019-02-02] MEDS: Fluticasone NASAL SPRAY 50MCG* 16 gm SPRAY BTL BOTH NARES SCH ×2 (09:57→21:24)
[2019-02-02] MEDS: Losartan TAB* 25 MG PO SCH (09:57)
[2019-02-02] MEDS: DULoxetine DR CAP* 30 MG CAP.DR PO SCH (09:57)
[2019-02-02] MEDS: Nicotine PATCH 21 MG/24 HR* PATCH TRANSDERM SCH (09:58)
[2019-02-02] MEDS: DULoxetine DR CAP* 20 MG CAP.DR PO SCH (09:58)
[2019-02-02] MEDS: PANCRELIPASE 3000 UNIT PO SCH ×3 (09:58→18:01)
[2019-02-02] MEDS: Nicotine* 2MG (FRUIT FLAVOR) GUM PO PRN ×2 (10:16→20:15)
[2019-02-02] MEDS: oxyCODONE/Acetamin 5/325 MG* TAB PO PRN ×2 (10:16→20:01)
[2019-02-02] MEDS: Ondansetron INJ* 2 MG/ML VIAL IV PRN ×2 (13:12→19:13)
--- NOTE | 2019-02-02 17:03 | PN ---
Subjective Interval History: Patient seen and examined. Complains of bladder pressure and some difficulty initiating urine stream but states once she starts urinating she empties her bladder completely. Denies fever or chills. No SOB, no weakness or dizziness. Objective Active Medications: Acetaminophen (Tylenol Tab*) 650 mg PO Q4H PRN PRN Reason: FEVER/PAIN Al Hydrox/Mg Hydrox/Simethicone (Maalox Plus*) 30 ml PO Q4H PRN PRN Reason: INDIGESTION Albuterol (Ventolin Hfa Inhaler*) 2 puff INH Q4HR PRN PRN Reason: SHORTNESS OF BREATH Atorvastatin Calcium (Lipitor*) 20 mg PO BEDTIME [facility] Last Admin: 02/01/19 23:42 Dose: 20 mg Cetirizine HCl (Zyrtec*) 10 mg PO DAILY PRN PRN Reason: Allergy Symptoms Cyclobenzaprine HCl (Flexeril Tab*) 10 mg PO TID PRN PRN Reason: Muscle Spasm Last Admin: 02/02/19 05:16 Dose: 10 mg Dextrose (D50w Syringe 50 Ml*) 50 gm IV PUSH .FOR FS < 60 PRN PRN Reason: FS < 60 Duloxetine HCl (Cymbalta Cap*) 20 mg PO QAM [facility] Last Admin: 02/02/19 09:58 Dose: 20 mg Duloxetine HCl (Cymbalta Cap*) 90 mg PO QAM [facility] Last Admin: 02/02/19 09:57 Dose: 90 mg Enoxaparin Sodium (Lovenox(*)) 40 mg SUBCUT Q24H [facility] Last Admin: 02/01/19 23:42 Dose: 40 mg Fluticasone Furoate (Arnuity Ellipta (Nf)) 100 mcg INH QAM [facility] Last Admin: 02/02/19 07:31 Dose: Not Given Fluticasone Propionate (Flonase Nasal G[place]y 50mcg*) 2 spray BOTH NARES BID [facility] Last Admin: 02/02/19 09:57 Dose: 2 spray Hydroxyzine HCl (Atarax Tab*) 25 mg PO TID PRN PRN Reason: ANXIETY Ceftriaxone Sodium 1 gm/ (Sodium Chloride) 50 mls @ 200 mls/hr IVPB Q24H [facility] Ibuprofen (Motrin Tab*) 600 mg PO TID PRN PRN Reason: PAIN Insulin Glargine (Lantus(*)) 56 units SUBCUT BEDTIME [facility] Last Admin: 02/01/19 23:42 Dose: 56 unit Insulin Human Lispro (Humalog*) 0 units SUBCUT ACHS [facility]; Protocol Last Admin: 02/02/19 12:56 Dose: 3 units Lamotrigine (Lamictal Tab(*)) 100 mg PO BID [facility] Last Admin: 02/02/19 09:56 Dose: 100 mg Levothyroxine Sodium (Synthroid Tab*) 200 mcg PO MoTuWeThFrSa@0600 [facility] Last Admin: 02/02/19 05:16 Dose: 200 mcg Levothyroxine Sodium (Synthroid Tab*) 400 mcg PO Gomez@0600 [facility] Loperamide HCl (Imodium Cap*) 2 mg PO Q4H PRN PRN Reason: DIARRHEA Losartan Potassium (Cozaar Tab*) 50 mg PO QAM [facility] Last Admin: 02/02/19 09:57 Dose: 50 mg Metoclopramide HCl (Reglan Tab*) 10 mg PO Q6H PRN PRN Reason: NAUSEA Last Admin: 02/02/19 05:16 Dose: 10 mg Naproxen (Naprosyn Tab*) 500 mg PO BID WITH MEALS PRN PRN Reason: PAIN Nicotine (Nicotine Patch 21 Mg/24 Hr*) [facility] [place] Last Admin: 02/02/19 09:58 Dose: 1 patch Nicotine Polacrilex (Nicotine Gum*) 2 mg PO Q2H PRN PRN Reason: CRAVINGS Last Admin: 02/02/19 10:16 Dose: 2 mg Olanzapine (Zyprexa Tab*) 10 mg PO BEDTIME [facility] Last Admin: 02/01/19 23:41 Dose: 10 mg Olanzapine (Zyprexa Tab*) 5 mg PO QAM [facility] Last Admin: 02/02/19 09:57 Dose: 5 mg Ondansetron HCl (Zofran Inj*) 4 mg IV Q6H PRN PRN Reason: NAUSEA/VOMITING Last Admin: 02/02/19 13:12 Dose: 4 mg Oxycodone/Acetaminophen (Percocet 5/325 Tab*) 1 tab PO Q4HR PRN PRN Reason: PAIN Last Admin: 02/02/19 10:16 Dose: 1 tab Pancrelipase (Creon (Nf)) 3,000 units PO TID AC [facility] Last Admin: 02/02/19 12:57 Dose: Not Given Phenazopyridine HCl (Pyridium Tab*) 100 mg PO TID [facility] Stop: 02/02/19 21:01 Last Admin: 02/02/19 14:18 Dose: 100 mg Polyethylene Glycol/Electrolytes (Miralax*) 17 gm PO DAILY PRN PRN Reason: CONSTIPATION Trazodone HCl (Desyrel Tab*) 300 mg PO BEDTIME [facility] Last Admin: 02/01/19 23:42 Dose: 300 mg Vital Signs - 8 hr 02/02/19 02/02/19 02/02/19 09:45 10:16 12:02 Temperature 98 F Pulse Rate 66 Respiratory 20 16 12 Rate Blood Pressure 119/66 (mmHg) O2 Sat by Pulse 98 Oximetry Oxygen Devices in Use Now: None Appearance: Alert, NAD Eyes: No Scleral Icterus, PERRLA Ears/Nose/Mouth/Throat: NL Teeth, Lips, Gums, Mucous Membranes Moist Neck: NL Appearance and Movements; NL JVP, Trachea Midline Respiratory: Symmetrical Chest Expansion and Respiratory Effort, Clear to Auscultation Cardiovascular: NL Sounds; No Murmurs; No JVD, RRR Abdominal: - - mild suprapubic tenderness Skin: No Rash or Ulcers Neurological: Alert and Oriented x 3, NL Gait, NL Muscle Strength and Tone Nutrition: Taking PO's Result Diagrams: 02/02/19 04:53 02/02/19 04:53 Microbiology and Other Data: Microbiology 02/02/19 14:16 Nasal Screen MRSA (PCR) - Final Nasal Mrsa Not Detected 02/01/19 19:40 Urine Culture - Final Urine No Growth (<1,000 CFU/mL) Diagnostic Imaging: Patient Name: CECILIO ALFARO Medical Record#: [id number] Ordering Physician: Maycol Al MD Acct.#: [id number] : 1965 Age: 53 Sex: F Location: EMERGENCY DEPARTMENT Exam Date: 02/01/191704 ADM Status: REG ER Order Information: CHEST AP OR PORT Accession Number: [id number] CPT: 90117 HISTORY: weakness COMPARISONS: December 14, 2018 VIEWS: 1: frontal AP view of the chest at 5:35 PM FINDINGS: LINES AND TUBES: None. CARDIOMEDIASTINAL SILHOUETTE: The cardiomediastinal silhouette is normal for portable technique. PLEURA: The costophrenic angles are sharp. No pleural abnormalities are noted. LUNG PARENCHYMA: The lungs are clear. ABDOMEN: The upper abdomen is clear. There is no subphrenic gas. BONES AND SOFT TISSUES: No bone or soft tissue abnormalities are noted. IMPRESSION: NO ACTIVE CARDIOPULMONARY DISEASE. Assess/Plan/Problems-Billing Assessment: This is a 53 year old female with complex behavioral history that presented to the ED with complaints of abdominal pain and burning with urination after being treated for UTI as an outpatient. - Patient Problems (1) UTI (urinary tract infection) Comment: - Was on nitrofurantoin as an outpatient - Outpatient culture with hafnia alvei, enterococcus and ecoli - Ceftriaxone with appropriate coverage - Ad pyridium for comfort - Does not appear toxic/septic and is hemodynamically stable, WBC count normal , afebrile - Plan for DC on cefuroxime BID (2) Borderline personality disorder Code(s): PCS9845 - SNOMED Code(s): 25127721 Comment: - Continue all home meds, mood stable (3) Diabetes Code(s): E11.9 - TYPE 2 DIABETES MELLITUS WITHOUT COMPLICATIONS SNOMED Code(s) : 97336065 Comment: - continue lantus daily with lispro SS coverage and accuchecks ACHS (4) Hypothyroidism Code(s): E03.9 - HYPOTHYROIDISM, UNSPECIFIED SNOMED Code(s): 40612319 Comment: - continue home dose levothyroxine (5) Obesity Code(s): E66.9 - OBESITY, UNSPECIFIED SNOMED Code(s): 079776291 Comment: - BMI 41 (6) Full code status Code(s): Z78.9 - OTHER SPECIFIED HEALTH STATUS SNOMED Code(s): 378280183 (7) DVT prophylaxis Code(s): NJW0090 - SNOMED Code(s): 432413800 Comment: - Lovenox subq Status and Disposition: Disposition, medically stable for discharge. Per CM, patient refusing to leave. Plan for discharge in AM.
[2019-02-02] MEDS: traZODone TAB* 100 MG PO SCH (20:00)
[2019-02-02] MEDS ORDERED: cefTRIAXone(*) 1 GM in NS 0.9% 50 ML* 50 ML IVPB SCH (20:00)
[2019-02-02] MEDS: Atorvastatin* 20 MG TAB PO SCH (20:01)
[2019-02-02] MEDS: Enoxaparin(*) 40 MG/0.4 ML SYR SUBCUT SCH (20:05)
[2019-02-02] MEDS: Insulin GLARGINE(*) 1 UNITS UNIT SUBCUT SCH (20:05)
--- NOTE | 2019-02-02 20:36 | DS ---
CC: Dr. Schroeder * DISCHARGE SUMMARY: DATE OF ADMISSION: 02/01/19 DATE OF DISCHARGE: 02/03/19 ATTENDING PHYSICIAN: Dr. Lui.* (DICTATED BY SULEMA MI NP) HOSPITAL COURSE: Please refer to admitting H and P from 02/01/19, but in short , this is a 53-year-old female with a history of behavioral disturbance, extensive psychiatric history, who presented to the emergency department with complaints of abdominal pain, burning sensation, and urinary complaints. She had been treated as an outpatient for urinary tract infection; however, the patient states she had additional urinary frequency and burning and came to the emergency department for evaluation. In the ED, she was noted to have modestly elevated white count of 16.2 and somewhat lower blood pressure. There was some concern for sepsis. She was given a bolus of normal saline and requested for observation admission. She was started on ceftriaxone. She was clinically stable throughout the last 24 hours of her admission. On the day of 02/02/19, her urinary cultures were evaluated. Her outpatient urine culture on 01/28/19 revealed E. coli and enterococcus, on 01/30/19 revealed Hafnia alvei and normal seema. Urine culture in the emergency department dated 02/01/19 showed no growth. Susceptibilities based on the outpatient cultures showed good susceptibility to ceftriaxone. The patient's white count came to normal today at 10.5. Vital signs were completely normal. She is afebrile. The patient states that her abdominal pain and burning sensation have improved. She does have some suprapubic pain. She was placed on Pyridium and expected for discharge. The patient appealed her discharge and requested an additional day in the hospital. She was referred to case management and social work to have this discussion. She remains medically stable for discharge today. It is our understanding that the patient will be discharged in the morning after 1 more night in the hospital pending her appeal. DISCHARGE DIAGNOSIS: Urinary tract infection. SECONDARY DIAGNOSES: 1. Schizoaffective disorder. 2. Borderline personality disorder. 3. Intellectual disability. 4. Major depressive disorder. 5. Type 2 diabetes. 6. Hypothyroidism. 7. Chronic back pain. 8. GERD. 9. Hyperlipidemia. DISCHARGE MEDICATIONS: Include: 1. Lamotrigine 100 mg p.o. b.i.d. 2. Trazodone 300 mg at bedtime. 3. Percocet 5/325 one tab q.4 hours as needed. 4. Hydroxyzine 25 mg 3 times a day as needed. 5. MiraLAX 17 g daily as needed. 6. Pancrelipase 3000 units 3 times a day before meals. 7. Zofran 4 mg q.8 hours as needed. 8. Olanzapine 5 mg in the morning and 10 mg at bedtime. 9. Nicotine patch 21 mg 1 patch daily. 10. Nicotine gum 2 mg as needed q.2 hours. 11. Naproxen 500 mg 2 times a day with meals as needed. 12. Reglan 10 mg q.6 hours as needed. 13. Losartan 50 mg in the morning. 14. Loratadine 10 mg daily as needed. 15. Loperamide 2 mg q.4 hours as needed. 16. Levothyroxine 200 mcg on Tuesday, Tuesday, Tuesday, , Tuesday, and Tuesday with 400 mcg on Tuesday. 17. Aspart insulin 26 units subcu 3 times a day with meals. 18. Insulin glargine 70 units subcu at bedtime. 19. Ibuprofen 600 mg 3 times a day as needed. 20. Mucinex 1 tab 2 times a day as needed. 21. Fluticasone 6 sprays both nares 3 times a day. 22. Duloxetine 110 mg in the morning. The patient takes 30, 60, and 20 mg capsules. 23. Cyclobenzaprine 10 mg 3 times a day as needed. 24. Atorvastatin 20 mg at bedtime. 25. Albuterol 2 puffs inhaled q.4 hours as needed. 26. Maalox 30 mL q.4 hours as needed. REVIEW OF SYSTEMS: Please refer to today's progress note for review of systems. Physical exam and labs, disposition, the patient will be discharged to [facility] on 02/03/19. DIET: Heart heathy diabetic as tolerated. FOLLOWUPS: The patient was instructed to follow up with Dr. Rosa Schroeder, her primary care provider in 1 week. TIME SPENT: Forty five minutes on discharge planning. SULE[place] MI NP [id number]/[facility] #: [id number] [facility]
[2019-02-03] MEDS: Ondansetron INJ* 2 MG/ML VIAL IV PRN ×2 (02:36→08:24)
[2019-02-03] MEDS: Levothyroxine TAB* 100 MCG TAB PO SCH (05:15)
[2019-02-03] MEDS: Insulin LISPRO* 1 UNITS UNIT SUBCUT SCH (07:44)
[2019-02-03 07:51] VITALS: BP 143/71
[2019-02-03] MEDS: FLUTICASONE FUROATE INH SCH (07:53)
[2019-02-03] MEDS: DULoxetine DR CAP* 30 MG CAP.DR PO SCH (08:19)
[2019-02-03] MEDS: lamoTRIgine TAB(*) 100 MG PO SCH (08:19)
[2019-02-03] MEDS: Losartan TAB* 25 MG PO SCH (08:19)
[2019-02-03] MEDS: oxyCODONE/Acetamin 5/325 MG* TAB PO PRN (08:19)
[2019-02-03] MEDS: OLANzapine TAB* 5 MG PO SCH (08:20)
[2019-02-03] MEDS: Cyclobenzaprine TAB* 10 MG PO PRN (08:20)
[2019-02-03] MEDS: DULoxetine DR CAP* 20 MG CAP.DR PO SCH (08:46)
[2019-02-03] MEDS: PANCRELIPASE 3000 UNIT PO SCH (08:47)
[2019-02-03] MEDS: Nicotine PATCH 21 MG/24 HR* PATCH TRANSDERM SCH (08:48)
[2019-02-04] MEDS ORDERED: Levothyroxine TAB* 100 MCG TAB PO SCH (06:00)
== END 2019-02-03 10:50 | disposition home or self-care (01) ==
LOC: ED 16:09 → INTOOBSV 21:18 → MED 21:18
PROVIDERS: ADMIT Internal Medicine; ATTEND Internal Medicine
DX: N39.0 Urinary tract infection, site not specified (principal); F25.9 Schizoaffective disorder, unspecified; F60.3 Borderline personality disorder; F79 Unspecified intellectual disabilities; F32.9 Major depressive disorder, single episode, unspecified; E11.9 Type 2 diabetes mellitus without complications; E03.9 Hypothyroidism, unspecified; M54.9 Dorsalgia, unspecified; G89.29 Other chronic pain; K21.9 Gastro-esophageal reflux disease without esophagitis; E78.5 Hyperlipidemia, unspecified; Z79.899 Other long term (current) drug therapy; F17.210 Nicotine dependence, cigarettes, uncomplicated; Z88.0 Allergy status to penicillin; Z88.2 Allergy status to sulfonamides; K58.9 Irritable bowel syndrome, unspecified; I10 Essential (primary) hypertension; R53.83 Other fatigue; E66.9 Obesity, unspecified
CPT/HCPCS: 36415; 71045; 80048; 80053; 81003; 81015; 82550; 83605; 83880; 84484; 85025; 85384; 85610; 85652; 85730; 86140; 87040; 87086; 87641; 96365; 96372; 96375; 96376; 99285; A9270-GY; G0378; J0696; J1650; J2405

== ENCOUNTER 2019-02-03 16:09 | Emergency (ER) | payer MEDICARE, MEDICAID ==
[2019-02-03 18:18] LABS: ABS Basophils 0.1 10^3/ul (0-0.2); ABS Eosinophils 0.1 10^3/ul (0-0.6); ABS Lymphocytes 2.5 10^3/ul (1.0-4.8); ABS Monocytes 0.4 10^3/ul (0-0.8); ABS Neutrophils 6.5 10^3/ul (1.5-7.7); Eosinophil % 1.5 %; Hematocrit 37 % (35-47); Hemoglobin 12.2 g/dL (12.0-16.0); Lymphocyte % 26.3 %; Mean Corpuscular HGB Conc 33 g/dL (31-36); Mean Corpuscular Hemoglobin 30 pg (27-31); Mean Corpuscular Volume 91 fL (80-97); Mean Platelet Volume 9.4 fL (7.4-10.4); Platelet Count 168 10^3/uL (150-450); Red Blood Count 4.03 10^6 /uL (3.70-4.87); Red Cell Distribution Width 15 % (10-15); White Blood Count 9.6 10^3/uL (3.5-10.8)
[2019-02-03 18:34] LABS: ALT 48 U/L (7-52); AST 67 U/L (13-39); Albumin 3.5 g/dL (3.2-5.2); Albumin/Globulin Ratio 1.3 (1-3); Alkaline Phosphatase 148 U/L (34-104); Amylase 28 U/L (29-103); Anion Gap 6 mmol/L (2-11); BUN/Creatinine Ratio 12.2 (8-20); Blood Urea Nitrogen 11 mg/dL (6-24); C Reactive Protein 3.64 mg/L (<8.01); CO2 Carbon Dioxide 26 mmol/L (22-32); Calcium 8.9 mg/dL (8.6-10.3); Chloride 108 mmol/L (101-111); EGFR African American 79.6 (>60); EGFR Non-African American 65.8 (>60); Globulin 2.7 g/dL (2-4); Glucose 146 mg/dL (70-100); Potassium 4.5 mmol/L (3.5-5.0); Sodium 140 mmol/L (135-145); Total Protein 6.2 g/dL (6.4-8.9)
[2019-02-03] MEDS ORDERED: Ondansetron INJ* 2 MG/ML VIAL IM ONE (18:47)
[2019-02-03] MEDS ORDERED: Metoclopramide TAB* 10 MG PO ONE (19:06)
[2019-02-03] MEDS ORDERED: Hyoscyamine TAB* 0.125 MG PO ONE (19:19)
[2019-02-03 19:25] LABS: Urine Appearance Cloudy; Urine Bacteria Absent (Absent); Urine Bilirubin Negative (Negative); Urine Blood Negative (Negative); Urine Color Yellow; Urine Glucose 2+(150 mg/dL) (Negative); Urine Ketones Negative (Negative); Urine Nitrite Negative (Negative); Urine Protein Negative (Negative); Urine Red Blood Cell Trace(0-2/hpf) (Absent); Urine Specific Gravity 1.009 (1.010-1.030); Urine Squamous Epithelial Cell Present (Absent); Urine Urobilinogen Negative (Negative); Urine White Blood Cell Trace(0-5/hpf) (Absent)
--- NOTE | 2019-02-03 19:26 | ED ---
GI/ HPI - HPI Summary HPI Summary: 53-year-old female presents with continuing bowel pain and nausea for the past week. She states feels ill. She was admitted 2 days ago for potential UTI and hypotension. The urine did not grow anything significant. She was discharged today. She states the bowel pain continues. States it feels like a spasm. States that sometimes she urinates a little and sometimes urinates a lot. She admits to nausea but no vomiting. pain does radiate to her back. No diarrhea constipation. - History of Current Complaint Chief Complaint: EDAbdPain Time Seen by Provider: 02/03/19 17:39 Stated Complaint: ABD PAIN PER EMS Hx Last Menstrual Period: "last month" Pain Intensity: 8 - Additional Pertinent History Primary Care Physician: RICKY - Allergy/Home Medications Allergies/Adverse Reactions: Allergies Allergy/AdvReac Type Severity Reaction Status Date / Time lurasidone [From Latuda] Allergy Severe Altered Verified 02/03/19 16:33 Mental Status ciprofloxacin Allergy Intermediate Dizziness Verified 02/03/19 16:33 latex Allergy Mild Rash Verified 02/03/19 16:33 lithium Allergy Mild See Comment Verified 02/03/19 16:33 nalbuphine Allergy Unknown Verified 02/03/19 16:33 Reaction Details naldemedine Allergy Unknown Verified 02/03/19 16:33 Reaction Details Penicillins Allergy Rash Verified 02/03/19 16:33 perphenazine Allergy Unknown Verified 02/03/19 16:33 Reaction Details Sulfa (Sulfonamide Allergy Hives Verified 02/03/19 16:33 Antibiotics) tramadol Allergy Altered Verified 02/03/19 16:33 Mental Status ENVIRONMENTAL Allergy Mild SINUS Uncoded 01/17/19 14:01 Home Medications: Home Medications Omeprazole 40 mg PO DAILY 02/03/19 [History Confirmed 02/03/19] PMH/Surg Hx/FS Hx/Imm Hx Endocrine/Hematology History: Reports: Hx Diabetes, Hx Thyroid Disease, Other Endocrine/Hematological Disorders - Chronic pancreatitis Denies: Hx Anticoagulant Therapy Cardiovascular History: Reports: Hx Hypertension, Other Cardiovascular Problems/ Disorders - HX OF PSVT 04/2008 Denies: Hx Hypercholesterolemia, Hx Pacemaker/ICD Respiratory History: Reports: Hx Asthma, Hx Seasonal Allergies, Hx Sleep Apnea - HX OF IN THE PAST Denies: Hx Chronic Bronchitis, Hx Chronic Obstructive Pulmonary Disease (COPD ), Hx Cystic Fibrosis, Hx Lung Cancer, Hx Pleural Effusion, Hx Pneumonia, Hx Pulmonary Edema, Hx Pulmonary Embolism, Other Respiratory Problems/Disorders GI History: Reports: Hx Gall Bladder Disease, Hx Gastroesophageal Reflux Disease - ON MEDICATION FOR, Hx Gastrointestinal Bleed, Hx Irritable Bowel, Other GI Disorders - HX OF pancreatitis- STATES LAST ABOUT 2 WEEKS AGO- STATES SLIGHT CASE Denies: Hx Ulcer History: Reports: Other Problems/Disorders - urinary incontinence Denies: Hx Dialysis, Hx Renal Disease Musculoskeletal History: Reports: Hx Arthritis, Hx Back Problems, Other Musculoskeletal History - GEN MUSCULOSKELETAL PAIN Denies: Hx Rheumatoid Arthritis, Hx Bursitis, Hx Congenital Bone Abnormalities, Hx Fibromyalgia, Hx Gout, Hx Orthopedic Injury, Hx Osteoporosis, Hx Scoliosis, Hx Tendonitis Sensory History: Reports: Hx Contacts or Glasses, Hx Vision Problem Denies: Hx Cataracts, Hx Eye Injury, Hx Eye Prosthesis, Hx Glaucoma, Hx Macular Degeneration, Hx Hearing Aid, Other Sensory Impairments Opthamlomology History: Reports: Hx Contacts or Glasses, Hx Vision Problem Denies: Hx Cataracts, Hx Eye Injury, Hx Eye Prosthesis, Hx Glaucoma, Hx Macular Degeneration, Other Sensory Impairments Neurological History: Reports: Hx Developmental Delay - intellectual disability , Hx Seizures - STATES WITH ALLERGIC REACTION TO TRAMADOL Denies: Hx Dementia, Hx Headaches, Other Neuro Impairments/Disorders Psychiatric History: Reports: Hx Anxiety, Hx Depression, Hx Post Traumatic Stress Disorder, Hx Inpatient Treatment, Hx Community Mental Health Tx, Hx Bipolar Disorder - pt manic, Hx Suicide Attempt, Hx of Violent Episodes Against Others, Other Psychiatric Issues/Disorders - PSYCHOSIS NOS, HX OF PTSD, SCHIZOAFFECTIVE DISORDER, BORDERLINE PERSONALITY Denies: Hx Attention Deficit Hyperactivity Disorder, Hx Eating Disorder, Hx Panic Disorder, Hx Schizophrenia, Hx Substance Abuse - Cancer History Cancer Type, Location and Year: None reported - Surgical History Surgery Procedure, Year, and Place: 2011-CATARACT EXTRACTION. GALLBLADDER REMOVED Hx Anesthesia Reactions: No - Immunization History Date of Tetanus Vaccine: unk Date of Influenza Vaccine: fall 2017 Infectious Disease History: No Infectious Disease History: Denies: Hx Clostridium Difficile, Hx Hepatitis, Hx Human Immunodeficiency Virus (HIV), Hx of Known/Suspected MRSA, Hx Shingles, Hx Tuberculosis, Hx Known/ Suspected VRE, Hx Known/Suspected VRSA, History Other Infectious Disease, Traveled Outside the [place] in Last 30 Days - Family History Known Family History: Positive: Other - Anxiety and depression, [place] - father Negative: Cardiac Disease, Hypertension, Diabetes Family History: Depression and anxiety - Social History Alcohol Use: None Hx Substance Use: No Substance Use Type: Reports: None Hx Tobacco Use: Yes Smoking Status (MU): Current Every Day Smoker Type: Cigarettes Amount Used/How Often: 1/2 PPD FOR LAST 30 DAYS, NO OTHER TOBACCO Length of Time of Smoking/Using Tobacco: since she was "young" Have You Smoked in the Last Year: Yes - Patient has smoked within the last 30 days Review of Systems Negative: Fever Negative: Chest Pain Negative: Shortness Of Breath Positive: Abdominal Pain, Nausea. Negative: Vomiting, Diarrhea All Other Systems Reviewed And Are Negative: Yes Physical Exam Triage Information Reviewed: Yes Vital Signs On Initial Exam: Initial Vitals Temp Pulse Resp BP Pulse Ox 98.7 F 90 16 142/94 97 02/03/19 16:29 02/03/19 16:29 02/03/19 16:29 02/03/19 16:29 02/03/19 16:29 Vital Signs Reviewed: Yes Appearance: Positive: Well-Appearing Skin: Positive: Warm, Dry Head/Face: Positive: Normal Head/Face Inspection Eyes: Positive: Normal, EOMI, JENNIFER, Conjunctiva Clear ENT: Positive: Normal ENT inspection, Pharynx normal, TMs normal Respiratory/Lung Sounds: Positive: Clear to Auscultation, Breath Sounds Present Cardiovascular: Positive: Normal, RRR Abdomen Description: Positive: Soft, Other: - tenderness lower abd. Negative: CVA Tenderness (R), CVA Tenderness (L) Bowel Sounds: Positive: Present Musculoskeletal: Positive: Normal Neurological: Positive: Normal Psychiatric: Positive: Normal Diagnostics - Vital Signs Vital Signs Temp Pulse Resp BP Pulse Ox 02/03/19 16:29 98.7 F 90 16 142/94 97 - Laboratory Lab Results: Lab Results 02/03/19 02/03/19 02/03/19 Range/Units 18:09 18:09 18:09 WBC 9.6 (3.5-10.8) 10^3/uL RBC 4.03 (3.70-4.87) 10^6 /uL Hgb 12.2 (12.0-16.0) g/dL Hct 37 (35-47) % MCV 91 (80-97) fL MCH 30 (27-31) pg MCHC 33 (31-36) g/dL RDW 15 (10-15) % Plt Count 168 (150-450) 10^3/uL MPV 9.4 (7.4-10.4) fL Neut % (Auto) 67.1 % Lymph % (Auto) 26.3 % [place] % (Auto) 4.5 % Eos % (Auto) 1.5 % Baso % (Auto) 0.6 % Absolute Neuts (auto) 6.5 (1.5-7.7) 10^3/ul Absolute Lymphs (auto) 2.5 (1.0-4.8) 10^3/ul Absolute Monos (auto) 0.4 (0-0.8) 10^3/ul Absolute Eos (auto) 0.1 (0-0.6) 10^3/ul Absolute Basos (auto) 0.1 (0-0.2) 10^3/ul Absolute Nucleated RBC 0.0 10^3/ul Nucleated RBC % 0.0 Sodium 140 (135-145) mmol/L Potassium 4.5 (3.5-5.0) mmol/L Chloride 108 (101-111) mmol/L Carbon Dioxide 26 (22-32) mmol/L Anion Gap 6 (2-11) mmol/L BUN 11 (6-24) mg/dL Creatinine 0.90 (0.51-0.95) mg/dL Est GFR ( Amer) 79.6 (>60) Est GFR (Non-Af Amer) 65.8 (>60) BUN/Creatinine Ratio 12.2 (8-20) Glucose 146 H (70-100) mg/dL Lactic Acid 0.8 (0.5-2.0) mmol/L Calcium 8.9 (8.6-10.3) mg/dL Total Bilirubin 0.20 (0.2-1.0) mg/dL AST 67 H (13-39) U/L ALT 48 (7-52) U/L Alkaline Phosphatase 148 H (34-104) U/L C-Reactive Protein 3.64 (<8.01) mg/L Total Protein 6.2 L (6.4-8.9) g/dL Albumin 3.5 (3.2-5.2) g/dL Globulin 2.7 (2-4) g/dL Albumin/Globulin Ratio 1.3 (1-3) Amylase 28 L (29-103) U/L Lipase < 10 L (11.0-82.0) U/L Urine Color Urine Appearance Urine pH (5-9) Ur Specific [place] (1.010-1.030) Urine Protein (Negative) Urine Ketones (Negative) Urine Blood (Negative) Urine Nitrate (Negative) Urine Bilirubin (Negative) Urine Urobilinogen (Negative) Ur Leukocyte Esterase (Negative) Urine WBC (Auto) (Absent) Urine RBC (Auto) (Absent) Ur Squamous Epith Cells (Absent) Urine Bacteria (Absent) Urine Glucose (Negative) 02/03/19 Range/Units 19:12 WBC (3.5-10.8) 10^3/uL RBC (3.70-4.87) 10^6 /uL Hgb (12.0-16.0) g/dL Hct (35-47) % MCV (80-97) fL MCH (27-31) pg MCHC (31-36) g/dL RDW (10-15) % Plt Count (150-450) 10^3/uL MPV (7.4-10.4) fL Neut % (Auto) % Lymph % (Auto) % [place] % (Auto) % Eos % (Auto) % Baso % (Auto) % Absolute Neuts (auto) (1.5-7.7) 10^3/ul Absolute Lymphs (auto) (1.0-4.8) 10^3/ul Absolute Monos (auto) (0-0.8) 10^3/ul Absolute Eos (auto) (0-0.6) 10^3/ul Absolute Basos (auto) (0-0.2) 10^3/ul Absolute Nucleated RBC 10^3/ul Nucleated RBC % Sodium (135-145) mmol/L Potassium (3.5-5.0) mmol/L Chloride (101-111) mmol/L Carbon Dioxide (22-32) mmol/L Anion Gap (2-11) mmol/L BUN (6-24) mg/dL Creatinine (0.51-0.95) mg/dL Est GFR ( Amer) (>60) Est GFR (Non-Af Amer) (>60) BUN/Creatinine Ratio (8-20) Glucose (70-100) mg/dL Lactic Acid (0.5-2.0) mmol/L Calcium (8.6-10.3) mg/dL Total Bilirubin (0.2-1.0) mg/dL AST (13-39) U/L ALT (7-52) U/L Alkaline Phosphatase (34-104) U/L C-Reactive Protein (<8.01) mg/L Total Protein (6.4-8.9) g/dL Albumin (3.2-5.2) g/dL Globulin (2-4) g/dL Albumin/Globulin Ratio (1-3) Amylase (29-103) U/L Lipase (11.0-82.0) U/L Urine Color Yellow Urine Appearance Cloudy Urine pH 5.0 (5-9) Ur Specific [place] 1.009 L (1.010-1.030) Urine Protein Negative (Negative) Urine Ketones Negative (Negative) Urine Blood Negative (Negative) Urine Nitrate Negative (Negative) Urine Bilirubin Negative (Negative) Urine Urobilinogen Negative (Negative) Ur Leukocyte Esterase 1+ A (Negative) Urine WBC (Auto) Trace(0-5/hpf) (Absent) Urine RBC (Auto) Trace(0-2/hpf) (Absent) Ur Squamous Epith Cells Present A (Absent) Urine Bacteria Absent (Absent) Urine Glucose 2+(150 mg/dl) A (Negative) Result Diagrams: 02/03/19 18:09 02/03/19 18:09 Lab Statement: Any lab studies that have been ordered have been reviewed, and results considered in the medical decision making process. - CT abd CT Interpretation Completed By: Radiologist Summary of CT Findings: IMPRESSION: No visible renal, ureteral or bladder calculi. Re-Evaluation - Re-Evaluation First Eval Comment: discussed results, patient requesting food, no vomiting while in ED GIGU Course/Dx - Course Course Of Treatment: 53-year-old female presents with continuing bowel pain and nausea for the past week. She states feels ill. She was admitted 2 days ago for potential UTI and hypotension. The urine did not grow anything significant. She was discharged today. She states the bowel pain continues. States it feels like a spasm. States that sometimes she urinates a little and sometimes urinates a lot. She admits to nausea but no vomiting. pain does radiate to her back. No diarrhea constipation. On exam tenderness suprapubic. Negative CVA tenderness. CT shows no acute findings. wbc normal. CRP normal. urine likely contaminant. Will wait for final culture. Discussed results with patient. Will add on hyoscyamine for pain. Told to follow up primary. Patient understands agrees plan. - Diagnoses Differential Diagnoses - Female: Gastroenteritis (Viral), Urinary Tract Infection, Ureteral Calculi Provider Diagnoses: Abdominal pain, Nausea Discharge - Sign-Out/Discharge Documenting (check all that apply): Patient Departure Patient Received Moderate/Deep Sedation with Procedure: No - Discharge Plan Condition: Good Disposition: HOME Prescriptions: Hyoscyamine TAB* [Anaspaz 0.125 MG TAB*] 0.125 mg PO TID PRN #21 tab PRN Reason: Pain Patient Education Materials: Abdominal Pain (ED) Referrals: Rosa Schroeder MD [Primary Care Provider] - Additional Instructions: continue reglan and zofran as needed every 6 hours add on hyoscyamine three times a day Follow up with primary within 5 days Return to ED if develop any new or worsening symptoms - Billing Disposition and Condition Condition: GOOD Disposition: Home
[2019-02-03 20:11] VITALS: BP 125/71
== END 2019-02-03 20:07 | disposition home or self-care (01) ==
LOC: ED 16:09
DX: R11.0 Nausea (principal); R10.9 Unspecified abdominal pain; Z88.0 Allergy status to penicillin; Z88.2 Allergy status to sulfonamides; Z88.8 Allergy status to other drugs, medicaments and biological substances; Z88.1 Allergy status to other antibiotic agents; Z91.040 Latex allergy status; E11.9 Type 2 diabetes mellitus without complications; I10 Essential (primary) hypertension; K21.9 Gastro-esophageal reflux disease without esophagitis; Z79.899 Other long term (current) drug therapy; F17.210 Nicotine dependence, cigarettes, uncomplicated
CPT/HCPCS: 36415; 74176; 80053; 81003; 81015; 82150; 83605; 83690; 85025; 86140; 87077; 87086; 87186; 96372; 99283; A9270-GY; J2405

== ENCOUNTER 2019-02-09 10:46 | Emergency (ER) | payer MEDICARE, MEDICAID ==
[2019-02-09 10:50] VITALS: BP 138/84
--- NOTE | 2019-02-09 10:52 | ED ---
GI/ HPI - HPI Summary HPI Summary: A 53 y/o female brought in by [facility] ambulance presents to [facility] with a chief complaint of having difficulty urinating today. She claims that she feels the pressure to urinate and gets spasms, but then can only urinate a little amount. She says that even after taking the pill that "makes you pee orange" her symptoms have not changed. She denies any fevers. She was at [facility] on 02/09/19 for the same symptoms. At triage she rated her pain as a 6/10 in severity. - History of Current Complaint Stated Complaint: URINATION PROBLEM PER EMS Hx Obtained From: Patient, EMS Hx Last Menstrual Period: "last month" Onset/Duration: Started Days Ago, Still Present Timing: Constant, Lasting Days Severity: Moderate Current Severity: Moderate Location of Pain: Diffuse Pain Characteristics: Pressure Associated Signs and Symptoms: Negative: Fever Aggravating Factor(s): Nothing Alleviating Factor(s): Nothing - Additional Pertinent History Primary Care Physician: RICKY - Allergy/Home Medications Allergies/Adverse Reactions: Allergies Allergy/AdvReac Type Severity Reaction Status Date / Time lurasidone [From Latuda] Allergy Severe Altered Verified 02/09/19 19:19 Mental Status ciprofloxacin Allergy Intermediate Dizziness Verified 02/09/19 19:19 latex Allergy Mild Rash Verified 02/09/19 19:19 lithium Allergy Mild See Comment Verified 02/09/19 19:19 nalbuphine Allergy Unknown Verified 02/09/19 19:19 Reaction Details naldemedine Allergy Unknown Verified 02/09/19 19:19 Reaction Details Penicillins Allergy Rash Verified 02/09/19 19:19 perphenazine Allergy Unknown Verified 02/09/19 19:19 Reaction Details Sulfa (Sulfonamide Allergy Hives Verified 02/09/19 19:19 Antibiotics) tramadol Allergy Altered Verified 02/09/19 19:19 Mental Status ENVIRONMENTAL Allergy Mild SINUS Uncoded 02/09/19 19:19 PMH/Surg Hx/FS Hx/Imm Hx Endocrine/Hematology History: Reports: Hx Diabetes - TYPE 2, Hx Thyroid Disease , Other Endocrine/Hematological Disorders - Chronic pancreatitis Denies: Hx Anticoagulant Therapy Cardiovascular History: Reports: Hx Hypertension, Other Cardiovascular Problems/ Disorders - HX OF PSVT 04/2008 Denies: Hx Hypercholesterolemia, Hx Pacemaker/ICD Respiratory History: Reports: Hx Asthma, Hx Seasonal Allergies, Hx Sleep Apnea - HX OF IN THE PAST Denies: Hx Chronic Bronchitis, Hx Chronic Obstructive Pulmonary Disease (COPD ), Hx Cystic Fibrosis, Hx Lung Cancer, Hx Pleural Effusion, Hx Pneumonia, Hx Pulmonary Edema, Hx Pulmonary Embolism, Other Respiratory Problems/Disorders GI History: Reports: Hx Gall Bladder Disease, Hx Gastroesophageal Reflux Disease - ON MEDICATION FOR, Hx Gastrointestinal Bleed, Hx Irritable Bowel, Other GI Disorders - HX OF pancreatitis- STATES LAST ABOUT 2 WEEKS AGO- STATES SLIGHT CASE Denies: Hx Ulcer History: Reports: Other Problems/Disorders - urinary incontinence Denies: Hx Dialysis, Hx Renal Disease Musculoskeletal History: Reports: Hx Arthritis, Hx Back Problems, Other Musculoskeletal History - GEN MUSCULOSKELETAL PAIN Denies: Hx Rheumatoid Arthritis, Hx Bursitis, Hx Congenital Bone Abnormalities, Hx Fibromyalgia, Hx Gout, Hx Orthopedic Injury, Hx Osteoporosis, Hx Scoliosis, Hx Tendonitis Sensory History: Reports: Hx Contacts or Glasses, Hx Vision Problem Denies: Hx Cataracts, Hx Eye Injury, Hx Eye Prosthesis, Hx Glaucoma, Hx Macular Degeneration, Hx Hearing Aid, Other Sensory Impairments Opthamlomology History: Reports: Hx Contacts or Glasses, Hx Vision Problem Denies: Hx Cataracts, Hx Eye Injury, Hx Eye Prosthesis, Hx Glaucoma, Hx Macular Degeneration, Other Sensory Impairments Neurological History: Reports: Hx Developmental Delay - intellectual disability , Hx Seizures - STATES WITH ALLERGIC REACTION TO TRAMADOL Denies: Hx Dementia, Hx Headaches, Other Neuro Impairments/Disorders Psychiatric History: Reports: Hx Anxiety, Hx Depression, Hx Panic Disorder - TAKES DAILY, Hx Post Traumatic Stress Disorder, Hx Inpatient Treatment, Hx Community Mental Health Tx, Hx Bipolar Disorder - pt manic, Hx Suicide Attempt, Hx of Violent Episodes Against Others, Other Psychiatric Issues/Disorders - PSYCHOSIS NOS, HX OF PTSD, SCHIZOAFFECTIVE DISORDER, BORDERLINE PERSONALITY Denies: Hx Attention Deficit Hyperactivity Disorder, Hx Eating Disorder, Hx Schizophrenia, Hx Substance Abuse - Cancer History Cancer Type, Location and Year: None reported - Surgical History Surgery Procedure, Year, and Place: 2011-CATARACT EXTRACTION;. GALLBLADDER REMOVED ; Hx Anesthesia Reactions: No - Immunization History Date of Tetanus Vaccine: unk Date of Influenza Vaccine: fall 2017 Infectious Disease History: Denies: Hx Clostridium Difficile, Hx Hepatitis, Hx Human Immunodeficiency Virus (HIV), Hx of Known/Suspected MRSA, Hx Shingles, Hx Tuberculosis, Hx Known/ Suspected VRE, Hx Known/Suspected VRSA, History Other Infectious Disease - Family History Known Family History: Positive: Other - Anxiety and depression, [place] - father Negative: Cardiac Disease, Hypertension, Diabetes Family History: Depression and anxiety - Social History Alcohol Use: None Hx Substance Use: No Substance Use Type: Reports: None Hx Tobacco Use: Yes Smoking Status (MU): Current Every Day Smoker Type: Cigarettes Amount Used/How Often: 1/2 PPD FOR LAST 30 DAYS, NO OTHER TOBACCO Length of Time of Smoking/Using Tobacco: since she was "young" Have You Smoked in the Last Year: Yes - Patient has smoked within the last 30 days Review of Systems Negative: Fever Positive: pain, other - positive: not being able to urinate much All Other Systems Reviewed And Are Negative: Yes Physical Exam - Summary Physical Exam Summary: VITAL SIGNS: Reviewed. GENERAL: Patient is a well-developed and nourished FEMALE who is lying comfortable in the stretcher. Patient is not in any acute respiratory distress. HEAD AND FACE: No signs of trauma. No ecchymosis, hematomas or skull depressions. No sinus tenderness. EYES: PERRLA, EOMI x 2, No injected conjunctiva, no nystagmus. EARS: Hearing grossly intact. Ear canals and tympanic membranes are within normal limits. MOUTH: Oropharynx within normal limits. NECK: Supple, trachea is midline, no adenopathy, no JVD, no carotid bruit, no c- spine tenderness, neck with full ROM. CHEST: Symmetric, no tenderness at palpation. LUNGS: Clear to auscultation bilaterally. No wheezing or crackles. CVS: Regular rate and rhythm, S1 and S2 present, no murmurs or gallops appreciated. ABDOMEN: Obese. Soft, non-tender. No signs of distention. No rebound, no guarding, and no masses palpated. Bowel sounds are normal. EXTREMITIES: FROM in all major joints, no edema, no cyanosis or clubbing. NEURO: Alert and oriented x 3. No acute neurological deficits. Speech is normal and follows commands. SKIN: Dry and warm. Triage Information Reviewed: Yes Vital Signs Reviewed: Yes GIGU Course/Dx - Course Assessment/Plan: A 53 y/o female brought in by [facility] ambulance presents to [facility] with a chief complaint of having difficulty urinating today. She claims that she feels the pressure to urinate and gets spasms, but then can only urinate a little amount. She says that even after taking the pill that "makes you pee orange" her symptoms have not changed. She denies any fevers. She was at [facility] on 02/09/19 for the same symptoms. At triage she rated her pain as a 6/ 10 in severity. The first bladder scan only showed 200 cc of urine. After the patient urinated the bladder scan is equal to 0. Therefore the patient is not having any urinary retention. The patient has no other symptoms therefore she will be discharged home with follow-up with PCP. Patient is hemodynamically stable alert and oriented 3. - Diagnoses Provider Diagnoses: Urinary urgency Discharge - Sign-Out/Discharge Documenting (check all that apply): Patient Departure - DC Patient Received Moderate/Deep Sedation with Procedure: No - Discharge Plan Condition: Stable Disposition: HOME Patient Education Materials: Urinary Urgency and Frequency (DC) Referrals: Rosa Schroeder MD [Primary Care Provider] - (2-3 days) Additional Instructions: FOLLOW UP WITH YOUR PRIMARY CARE PROVIDER WITHIN 2-3 DAYS RETURN TO THE ED FOR ANY WORSENING OR NEW SYMPTOMS. - Billing Disposition and Condition Condition: STABLE Disposition: Home - Attestation Statements Document Initiated by Scribe: Yes Documenting Scribe: Andrea Hall Provider For Whom Albertoibfarida is Documenting (Include Credential): Maycol Al MD Scribe Attestation: Andrea Rosales scribed for Maycol Al MD on 02/10/19 at 1046. Scribe Documentation Reviewed: Yes Provider Attestation: The documentation as recorded by the Andrea roth accurately reflects the service I personally performed and the decisions made by me, Maycol Al MD Status of Scribe Document: Viewed
== END 2019-02-09 11:25 | disposition home or self-care (01) ==
LOC: ED 10:46
DX: R39.15 Urgency of urination (principal); F43.10 Post-traumatic stress disorder, unspecified; F17.210 Nicotine dependence, cigarettes, uncomplicated; Z88.0 Allergy status to penicillin; Z88.2 Allergy status to sulfonamides; E11.9 Type 2 diabetes mellitus without complications; I10 Essential (primary) hypertension; K21.9 Gastro-esophageal reflux disease without esophagitis
CPT/HCPCS: 99282

== ENCOUNTER 2019-02-09 17:55 | Emergency (ER) | payer MEDICARE, MEDICAID ==
[2019-02-09 19:20] LABS: ABS Basophils 0.1 10^3/ul (0-0.2); ABS Eosinophils 0.1 10^3/ul (0-0.6); ABS Lymphocytes 3.4 10^3/ul (1.0-4.8); ABS Monocytes 0.6 10^3/ul (0-0.8); ABS Neutrophils 7.6 10^3/ul (1.5-7.7); Eosinophil % 1.2 %; Hematocrit 42 % (35-47); Hemoglobin 13.8 g/dL (12.0-16.0); Lymphocyte % 28.8 %; Mean Corpuscular HGB Conc 33 g/dL (31-36); Mean Corpuscular Hemoglobin 30 pg (27-31); Mean Corpuscular Volume 91 fL (80-97); Mean Platelet Volume 9.4 fL (7.4-10.4); Platelet Count 229 10^3/uL (150-450); Red Blood Count 4.59 10^6 /uL (3.70-4.87); Red Cell Distribution Width 16 % (10-15); White Blood Count 11.8 10^3/uL (3.5-10.8)
[2019-02-09 19:37] LABS: Albumin 3.7 g/dL (3.2-5.2); Albumin/Globulin Ratio 1.1 (1-3); BUN/Creatinine Ratio 9.7 (8-20); C Reactive Protein 3.79 mg/L (<8.01); Calcium 9.2 mg/dL (8.6-10.3); EGFR African American 68.1 (>60); EGFR Non-African American 56.3 (>60); Globulin 3.5 g/dL (2-4); Total Bilirubin 0.2 mg/dL (0.2-1.0); Total Protein 7.2 g/dL (6.4-8.9)
[2019-02-09 19:42] LABS: Urine Appearance Cloudy; Urine Bacteria 1+ (Absent); Urine Bilirubin Negative (Negative); Urine Blood Negative (Negative); Urine Color Amber; Urine Glucose 3+(>=500 mg/dL) (Negative); Urine Ketones Negative (Negative); Urine Nitrite Positive (Negative); Urine Protein Negative (Negative); Urine Red Blood Cell Trace(0-2/hpf) (Absent); Urine Specific Gravity 1.016 (1.010-1.030); Urine Squamous Epithelial Cell Present (Absent); Urine Urobilinogen Positive (Negative); Urine White Blood Cell Trace(0-5/hpf) (Absent)
[2019-02-09] MEDS ORDERED: Insulin REGULAR(*) 1 UNITS UNIT IV PUSH ONE ×2 (20:57→22:29)
[2019-02-09] MEDS ORDERED: NS 0.9% 1000 ML** 1,000 ML IV ONE (20:58)
[2019-02-09] MEDS ORDERED: cefTRIAXone(*) 1 GM in NS 0.9% 50 ML* 50 ML IVPB ONE (21:02)
--- NOTE | 2019-02-09 21:08 | ED ---
HPI Diabetic - HPI Summary HPI Summary: This pt is a 53 y/o female, with hx of type 2 DM, presenting to [facility] via EMS from [place] for elevated blood sugar today. Pt additionally reports pt has been diagnosed with a UTI and it is not getting better. Pt was admitted from 11/17 to 02/03/19 for UTI. She returned to the ED on 02/03/19 for abd pain and nausea and was discharged home with Anaspaz. Pt was also seen in the ED earlier today for difficulty urinating, she had a bladder scar and was discharged home. Pt presents today and states her pain is worsening notes abd pain radiating to the right side of her back. She reports associated symptoms of fatigue, nausea and vomiting. Pt reports she was prescribed Macrobid the first time but notes it doesn't work for her. She states the only thing that works for her is Ceftriaxone. - History Of Current Complaint Chief Complaint: EDDiabeticProb Time Seen by Provider: 02/09/19 20:55 Hx Obtained From: Patient Hx Last Menstrual Period: "last month" Onset/Duration: Lasting Days, Still Present Timing: Days Severity Initially: Moderate Character: Alert Aggravating: Nothing Alleviating: Nothing Associated Signs & Symptoms: Abdominal Pain, Nausea, Vomiting Related History: DM II - Allergies/Home Medications Allergies/Adverse Reactions: Allergies Allergy/AdvReac Type Severity Reaction Status Date / Time lurasidone [From Latuda] Allergy Severe Altered Verified 02/09/19 19:19 Mental Status ciprofloxacin Allergy Intermediate Dizziness Verified 02/09/19 19:19 latex Allergy Mild Rash Verified 02/09/19 19:19 lithium Allergy Mild See Comment Verified 02/09/19 19:19 nalbuphine Allergy Unknown Verified 02/09/19 19:19 Reaction Details naldemedine Allergy Unknown Verified 02/09/19 19:19 Reaction Details Penicillins Allergy Rash Verified 02/09/19 19:19 perphenazine Allergy Unknown Verified 02/09/19 19:19 Reaction Details Sulfa (Sulfonamide Allergy Hives Verified 02/09/19 19:19 Antibiotics) tramadol Allergy Altered Verified 02/09/19 19:19 Mental Status ENVIRONMENTAL Allergy Mild SINUS Uncoded 02/09/19 19:19 PMH/Surg Hx/FS Hx/Imm Hx Endocrine/Hematology History: Reports: Hx Diabetes - TYPE 2, Hx Thyroid Disease , Other Endocrine/Hematological Disorders - Chronic pancreatitis Denies: Hx Anticoagulant Therapy Cardiovascular History: Reports: Hx Hypertension, Other Cardiovascular Problems/ Disorders - HX OF PSVT 04/2008 Denies: Hx Hypercholesterolemia, Hx Pacemaker/ICD Respiratory History: Reports: Hx Asthma, Hx Seasonal Allergies, Hx Sleep Apnea - HX OF IN THE PAST Denies: Hx Chronic Bronchitis, Hx Chronic Obstructive Pulmonary Disease (COPD ), Hx Cystic Fibrosis, Hx Lung Cancer, Hx Pleural Effusion, Hx Pneumonia, Hx Pulmonary Edema, Hx Pulmonary Embolism, Other Respiratory Problems/Disorders GI History: Reports: Hx Gall Bladder Disease, Hx Gastroesophageal Reflux Disease - ON MEDICATION FOR, Hx Gastrointestinal Bleed, Hx Irritable Bowel, Other GI Disorders - HX OF pancreatitis- STATES LAST ABOUT 2 WEEKS AGO- STATES SLIGHT CASE Denies: Hx Ulcer History: Reports: Other Problems/Disorders - urinary incontinence Denies: Hx Dialysis, Hx Renal Disease Musculoskeletal History: Reports: Hx Arthritis, Hx Back Problems, Other Musculoskeletal History - GEN MUSCULOSKELETAL PAIN Denies: Hx Rheumatoid Arthritis, Hx Bursitis, Hx Congenital Bone Abnormalities, Hx Fibromyalgia, Hx Gout, Hx Orthopedic Injury, Hx Osteoporosis, Hx Scoliosis, Hx Tendonitis Sensory History: Reports: Hx Contacts or Glasses, Hx Vision Problem Denies: Hx Cataracts, Hx Eye Injury, Hx Eye Prosthesis, Hx Glaucoma, Hx Macular Degeneration, Hx Hearing Aid, Other Sensory Impairments Opthamlomology History: Reports: Hx Contacts or Glasses, Hx Vision Problem Denies: Hx Cataracts, Hx Eye Injury, Hx Eye Prosthesis, Hx Glaucoma, Hx Macular Degeneration, Other Sensory Impairments Neurological History: Reports: Hx Developmental Delay - intellectual disability , Hx Seizures - STATES WITH ALLERGIC REACTION TO TRAMADOL Denies: Hx Dementia, Hx Headaches, Other Neuro Impairments/Disorders Psychiatric History: Reports: Hx Anxiety, Hx Depression, Hx Panic Disorder - TAKES DAILY, Hx Post Traumatic Stress Disorder, Hx Inpatient Treatment, Hx Community Mental Health Tx, Hx Bipolar Disorder - pt manic, Hx Suicide Attempt, Hx of Violent Episodes Against Others, Other Psychiatric Issues/Disorders - PSYCHOSIS NOS, HX OF PTSD, SCHIZOAFFECTIVE DISORDER, BORDERLINE PERSONALITY Denies: Hx Attention Deficit Hyperactivity Disorder, Hx Eating Disorder, Hx Schizophrenia, Hx Substance Abuse - Cancer History Cancer Type, Location and Year: None reported - Surgical History Surgery Procedure, Year, and Place: 2011-CATARACT EXTRACTION;. GALLBLADDER REMOVED ; Hx Anesthesia Reactions: No - Immunization History Date of Tetanus Vaccine: unk Date of Influenza Vaccine: fall 2017 Infectious Disease History: No Infectious Disease History: Denies: Hx Clostridium Difficile, Hx Hepatitis, Hx Human Immunodeficiency Virus (HIV), Hx of Known/Suspected MRSA, Hx Shingles, Hx Tuberculosis, Hx Known/ Suspected VRE, Hx Known/Suspected VRSA, History Other Infectious Disease, Traveled Outside the [place] in Last 30 Days - Family History Known Family History: Positive: Other - Anxiety and depression, [place] - father Negative: Cardiac Disease, Hypertension, Diabetes Family History: Depression and anxiety - Social History Alcohol Use: None Hx Substance Use: No Substance Use Type: Reports: None Hx Tobacco Use: Yes Smoking Status (MU): Current Every Day Smoker Type: Cigarettes Amount Used/How Often: 1/2 PPD FOR LAST 30 DAYS, NO OTHER TOBACCO Length of Time of Smoking/Using Tobacco: since she was "young" Have You Smoked in the Last Year: Yes - Patient has smoked within the last 30 days Review of Systems Positive: Fatigue. Negative: Fever Positive: Abdominal Pain, Vomiting, Nausea Musculoskeletal: Other - POSITIVE: right sided back pain All Other Systems Reviewed And Are Negative: Yes Physical Exam - Summary Physical Exam Summary: Appearance: Well-appearing, minimal pain distress in lower abdomen, well- nourished. Patient is tearful. She does not appear toxic. Skin: Warm, color reflects adequate perfusion, dry Head: Normal Head/Face inspection, atraumatic Eyes: Conjunctiva clear ENT: Normal inspection Neck: Supple, no nodes, no JVD Respiratory: Lungs clear, normal breath sounds, no respiratory distress Cardio: RRR, No murmur, pulses normal, brisk capillary refill Abdomen: Soft, nontender, no rebound, no guarding, no masses, non-distended, no CVA tenderness. Bowel sounds: Present Musculoskeletal: Strength Intact/ROM intact. Psychological: Normal Neuro: Alert, muscle tone normal, no focal deficit Triage Information Reviewed: Yes Vital Signs On Initial Exam: Initial Vitals Temp Pulse Resp BP Pulse Ox 97.9 F 94 16 178/90 98 02/09/19 17:58 02/09/19 17:58 02/09/19 17:58 02/09/19 17:58 02/09/19 17:58 Vital Signs Reviewed: Yes Diagnostics - Vital Signs Vital Signs Temp Pulse Resp BP Pulse Ox 02/09/19 17:58 97.9 F 94 16 178/90 98 - Laboratory Lab Results: Lab Results 02/09/19 02/09/19 02/09/19 Range/Units 18:07 19:07 19:15 WBC 11.8 H (3.5-10.8) 10^3/uL RBC 4.59 (3.70-4.87) 10^6 /uL Hgb 13.8 (12.0-16.0) g/dL Hct 42 (35-47) % MCV 91 (80-97) fL MCH 30 (27-31) pg MCHC 33 (31-36) g/dL RDW 16 H (10-15) % Plt Count 229 (150-450) 10^3/uL MPV 9.4 (7.4-10.4) fL Neut % (Auto) 64.6 % Lymph % (Auto) 28.8 % Chambers % (Auto) 4.8 % Eos % (Auto) 1.2 % Baso % (Auto) 0.6 % Absolute Neuts (auto) 7.6 (1.5-7.7) 10^3/ul Absolute Lymphs (auto) 3.4 (1.0-4.8) 10^3/ul Absolute Monos (auto) 0.6 (0-0.8) 10^3/ul Absolute Eos (auto) 0.1 (0-0.6) 10^3/ul Absolute Basos (auto) 0.1 (0-0.2) 10^3/ul Absolute Nucleated RBC 0.0 10^3/ul Nucleated RBC % 0.0 VBG pH 7.40 (7.32-7.43) VBG pCO2 43 (41-51) mmHg VBG pO2 44.0 (35-45) mmHg VBG HCO3 25.5 (24-28) mmol/L VBG O2 Saturation 84.4 H (70-80) % VBG Base Excess 1.5 (0.0-4.0) mmol/L Sodium (135-145) mmol/L Potassium (3.5-5.0) mmol/L Chloride (101-111) mmol/L Carbon Dioxide (22-32) mmol/L Anion Gap (2-11) mmol/L BUN (6-24) mg/dL Creatinine (0.51-0.95) mg/dL Est GFR ( Amer) (>60) Est GFR (Non-Af Amer) (>60) BUN/Creatinine Ratio (8-20) Glucose (70-100) mg/dL POC Glucose (mg/dL) > 444 H* (70-100) mg/dL Lactic Acid (0.5-2.0) mmol/L Calcium (8.6-10.3) mg/dL Total Bilirubin (0.2-1.0) mg/dL AST (13-39) U/L ALT (7-52) U/L Alkaline Phosphatase (34-104) U/L C-Reactive Protein (<8.01) mg/L Total Protein (6.4-8.9) g/dL Albumin (3.2-5.2) g/dL Globulin (2-4) g/dL Albumin/Globulin Ratio (1-3) Urine Color Urine Appearance Urine pH (5-9) Ur Specific [place] (1.010-1.030) Urine Protein (Negative) Urine Ketones (Negative) Urine Blood (Negative) Urine Nitrate (Negative) Urine Bilirubin (Negative) Urine Urobilinogen (Negative) Ur Leukocyte Esterase (Negative) Urine WBC (Auto) (Absent) Urine RBC (Auto) (Absent) Ur Squamous Epith Cells (Absent) Urine Bacteria (Absent) Urine Glucose (Negative) Urine Ascorbic Acid (Negative) 02/09/19 02/09/19 02/09/19 Range/Units 19:15 19:15 19:25 WBC (3.5-10.8) 10^3/uL RBC (3.70-4.87) 10^6 /uL Hgb (12.0-16.0) g/dL Hct (35-47) % MCV (80-97) fL MCH (27-31) pg MCHC (31-36) g/dL RDW (10-15) % Plt Count (150-450) 10^3/uL MPV (7.4-10.4) fL Neut % (Auto) % Lymph % (Auto) % Chambers % (Auto) % Eos % (Auto) % Baso % (Auto) % Absolute Neuts (auto) (1.5-7.7) 10^3/ul Absolute Lymphs (auto) (1.0-4.8) 10^3/ul Absolute Monos (auto) (0-0.8) 10^3/ul Absolute Eos (auto) (0-0.6) 10^3/ul Absolute Basos (auto) (0-0.2) 10^3/ul Absolute Nucleated RBC 10^3/ul Nucleated RBC % VBG pH (7.32-7.43) VBG pCO2 (41-51) mmHg VBG pO2 (35-45) mmHg VBG HCO3 (24-28) mmol/L VBG O2 Saturation (70-80) % VBG Base Excess (0.0-4.0) mmol/L Sodium 136 (135-145) mmol/L Potassium 5.0 (3.5-5.0) mmol/L Chloride 102 (101-111) mmol/L Carbon Dioxide 25 (22-32) mmol/L Anion Gap 9 (2-11) mmol/L BUN 10 (6-24) mg/dL Creatinine 1.03 H (0.51-0.95) mg/dL Est GFR ( Amer) 68.1 (>60) Est GFR (Non-Af Amer) 56.3 (>60) BUN/Creatinine Ratio 9.7 (8-20) Glucose 426 H (70-100) mg/dL POC Glucose (mg/dL) (70-100) mg/dL Lactic Acid 2.9 H* (0.5-2.0) mmol/L Calcium 9.2 (8.6-10.3) mg/dL Total Bilirubin 0.20 (0.2-1.0) mg/dL AST 68 H (13-39) U/L ALT 43 (7-52) U/L Alkaline Phosphatase 157 H (34-104) U/L C-Reactive Protein 3.79 (<8.01) mg/L Total Protein 7.2 (6.4-8.9) g/dL Albumin 3.7 (3.2-5.2) g/dL Globulin 3.5 (2-4) g/dL Albumin/Globulin Ratio 1.1 (1-3) Urine Color Sharlene Urine Appearance Cloudy Urine pH 6.0 (5-9) Ur Specific [place] 1.016 (1.010-1.030) Urine Protein Negative (Negative) Urine Ketones Negative (Negative) Urine Blood Negative (Negative) Urine Nitrate Positive A (Negative) Urine Bilirubin Negative (Negative) Urine Urobilinogen Positive A (Negative) Ur Leukocyte Esterase Trace A (Negative) Urine WBC (Auto) Trace(0-5/hpf) (Absent) Urine RBC (Auto) Trace(0-2/hpf) (Absent) Ur Squamous Epith Cells Present A (Absent) Urine Bacteria 1+ A (Absent) Urine Glucose 3+(>=500 mg/dl) A (Negative) Urine Ascorbic Acid * A (Negative) Result Diagrams: 02/09/19 19:15 02/09/19 19:15 Lab Statement: Any lab studies that have been ordered have been reviewed, and results considered in the medical decision making process. Re-Evaluation - Re-Evaluation First Eval Re-Evaluation Time: 21:07 Comment: Repeat blood glucose of 299. Diabetic Course/Dx - Course Assessment/Plan: Pt is a 53 y/o female, with hx of type 2 DM and recent dx of UTI, presenting to [facility] via EMS from [place] for elevated blood sugar today and worsening abd pain with radiation to right side of back. Pt additionally reports pt has been diagnosed with a UTI and it is not getting better. Pt was admitted at [facility] from 02/01/19 to 02/03/19 for UTI. Pts medications reviewed this visit. Nurses notes reviewed. Allergies noted. High blood pressure noted. Lab results are remarkable for WBC of 11.8, glucose of 426, AST of 68. In the ED course the pt was given IV fluids, Insulin, Ceftriaxone, Zofran. Discharge - Discharge Plan Referrals: Rosa Schroeder MD [Primary Care Provider] - - Attestation Statements Document Initiated by Scribe: Yes Documenting Scribe: Maki Ruvalcaba Provider For Whom Scribe is Documenting (Include Credential): Violeta Yusuf MD Scribe Attestation: Maki Rosales, scribed for Violeta Yusuf MD on 02/09/19 at 2206.
[2019-02-09] MEDS ORDERED: Ondansetron INJ* 2 MG/ML VIAL IV ONE (22:02)
[2019-02-09 23:55] VITALS: BP 116/87
== END 2019-02-09 23:30 | disposition home or self-care (01) ==
LOC: ED 17:55
DX: E11.9 Type 2 diabetes mellitus without complications (principal); Z79.4 Long term (current) use of insulin; N39.0 Urinary tract infection, site not specified; R11.2 Nausea with vomiting, unspecified; R53.83 Other fatigue; K86.1 Other chronic pancreatitis; I10 Essential (primary) hypertension; K21.9 Gastro-esophageal reflux disease without esophagitis; F41.0 Panic disorder [episodic paroxysmal anxiety]; F32.9 Major depressive disorder, single episode, unspecified; Z88.0 Allergy status to penicillin; Z88.2 Allergy status to sulfonamides; Z88.8 Allergy status to other drugs, medicaments and biological substances; Z88.1 Allergy status to other antibiotic agents; Z91.040 Latex allergy status; F17.210 Nicotine dependence, cigarettes, uncomplicated
CPT/HCPCS: 36415; 80053; 81003; 81015; 82803; 83605; 85025; 86140; 87086; 96365; 96375; 99284; J0696; J2405

== ENCOUNTER 2019-03-08 18:42 | Emergency (ER) | payer MEDICARE, MEDICAID ==
--- OUTSIDE RECORDS SUMMARY | 2019-03-08 18:51 | XMS REPORT | Continuity of Care Document ---
:1965 External Reference #:[id number] Author Name Jonathan Reynoso DO Address [address] [place] [address] [place] [address] Care Team Providers Name Role Phone Rosa Schroeder M.D. 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 Primary Care Physician Unavailable Payers Date Identification Numbers Payment Provider Subscriber Policy Number: [id number] Medicare Cecilio Alfaro PayID: [id number] [facility] [address] [place] [address] Policy Number: [id number] Medicaid/Medicare Cecilio Alfaro Group Name: 2 2 N F [facility] Federal [employer]-Civil GP PayID: [id number] [address] [place] [address] Problems Active Problems Provider Date Benign neoplasm of colon Chapo Aguila MD Onset: 08/11/2017 Bipolar affective disorder, currently Chapo Aguila MD Onset: 07/15/2017 depressed, mild Thoracic and lumbosacral neuritis Chapo Aguila MD Onset: 07/15/2017 Type 2 diabetes mellitus Chapo Aguila MD Onset: 06/13/2017 Hypothyroidism Chapo Aguila MD Onset: 06/13/2017 Gastroesophageal reflux disease Chapo Aguila MD Onset: 06/13/2017 Mixed hyperlipidemia Chapo Aguila MD Onset: 06/13/2017 Extreme obesity with alveolar hypoventilation Chapo Aguila MD Onset: Bipolar I disorder Chapo Aguila MD Onset: 06/13/2017 Social History Type Date Description Comments Sex Unknown Tobacco Use Start: Unknown End: Unknown Patient is a former smoker Smoking Status Reviewed: 02/13/19 Patient is a former smoker Allergies, Adverse Reactions, Alerts Active Allergies Reaction Severity Comments Date Latex Urticaria 05/10/2017 Lurasidone 05/08/2018 Sulfa Antibiotics hives 05/10/2017 Penicillins Urticaria 05/10/2017 Nalbuphine 05/10/2017 Perphenazine 05/10/2017 Ciprofloxacin dizziness 05/10/2017 Tramadol altered mental status 05/10/2017 [place] 05/10/2017 Medications Active Medications SIG Qnty Indications Ordering Date Provider Olanzapine take one tablet 30tabs Jonathan Reynoso, 02/13/2019 5mg Tablets by mouth In Am DO Miralax 1 scoop PO bid. 510units Jonathan Reynoso, 08/17/2018 [id number] Powder DO Nystatin apply twice daily 90units Unknown 05/15/2018 [id number]/GM until rash clears Powder Ventolin HFA 2 by mouth every 8units J45.909 Unknown 05/15/2018 4 hours as needed 108(90Base) mcg/Act Aerosol Januvia one by mouth 90tabs E11.65 Unknown 05/08/2018 50mg Tablets daily Losartan Potassium 1 by mouth once a 30tabs E11.65 Cayetano Aguila 2017 50mg day MD rizwan Tablets Oxycodone-Acetaminoph 1 Tablet Every Unknown en 4-6 Hours prn 5-325mg Tablets Olanzapine take 1 tab by Unknown 10mg Tablets mouth every bedtime. Creon 1 by mouth three Unknown 3000-9500Unit times a day Caps DR Parikh before meals Levothyroxine Sodium Daily And 2 On Unknown Tuesday 200mcg Tablets Omeprazole 1 by mouth every Unknown 40mg day Capsules DR Laurita Null 1 inhalation Unknown daily, for 100mcg/Act Aerosol shortness of breath (to replace pulmicort) Fiasp Flextouch 26 units with Unknown meals, 100Unit/ML Solution Pen-Inject Basaglar Kwikpen Inject 70 Units Unknown AT hs 100Unit/ML Solution Pen-Inject Vitamin D3 1 by mouth twice 180caps Unknown 1000Unit daily Capsules Duloxetine HCL 1 by mouth every 90caps Unknown 20mg day with 60mg tab Caps DR Parikh Loratadine once a day for 90caps Unknown 10mg allergies as Capsules needed Duloxetine HCL Total Of 110 MG'S Unknown 60mg Caps DR Parikh Atorvastatin Calcium take one tablet 90tabs Cayetano Aguila by mouth every n, 20mg Tablets day Trazodone HCL 3 tabs at Unknown 100mg bedtime Tablets Lamotrigine take 1 tablet by Unknown 100mg mouth twice a day Tablets History Medications Colyte With Flavor by mouth as 4000ml Jonathan Reynoso, 11/22/2018 - Packs directed DO 01/23/2019 240gm Solution Rec Metformin HCL ER take 1 tablet by 90tabs Unknown 05/12/2018 - 500mg mouth once a day 05/30/2018 Tablets ER 24HR with dinner Colyte With Flavor by mouth as 4000ml Jonathan Reynoso, 04/06/2018 - Packs directed DO 08/29/2018 240gm Solution Rec Colyte With Flavor by mouth as 4000ml Z12.11 Jonathan Reynoso, 03/20/2018 - Packs directed DO 03/23/2018 240gm Solution Rec Tresiba Flextouch units at bedtime 15units E11.65 Katarzyna Aguila 2017 - on, 03/20/2018 100Unit/ML Solution Pen-Inject Hydrocodone-Acetaminop 1 tab every 12h as 20tabs Katarzyna Aguila 2017 - hen needed on, 03/20/2018 5-325mg Tablets Mucinex 1 po bid prn 20tabs Lawrence Denson 08/28/2017 - 600mg Tablets ER , 03/20/2018 12HR Fluconazole one by mouth november 2tabs Lawrence Denson 08/22/2017 - 150mg Tablets repeat in 3 days , 03/20/2018 as needed Janumet 1 by mouth twice a 60tabs E11.9 Katarzyna Aguila 07/15/2017 - 50-500mg Tablets day on, 03/20/2018 Nicotrol use 4-5 times 168units F17.21 Katarzyna Aguila 06/13/2017 - 10mg Inhaler daily 0 on, 03/20/2018 Clotrimazole apply twice daily 90units B37.9 Katarzyna Aguila 06/13/2017 - 1% Cream on, 03/20/2018 Acetaminophen-Codeine 1 tab by mouth 20tabs Gerald, 05/26/2017 - #3 every 4-6 hours as MD Marline 03/20/2018 300-30mg Tablets needed for pain Lantus Solostar 40 units twice 45units Unknown - daily 05/30/2018 100Unit/ML Solution Pen-Inject Naproxen twice a day with 180tabs Unknown - 375mg Tablets food 02/13/2019 Humalog Kwikpen 4-10 Units SQ 9units E11.65 Unknown - three times a day, 02/13/2019 100Unit/ML Solution at mealtime, per Pen-Inject sliding scale instructions Levothyroxine Sodium 1 by mouth every 90tabs Unknown - day 02/13/2019 150mcg Tablets Metformin HCL bid Unknown - 850mg 05/30/2018 Tablets Humalog 130 - 150=1 unit Unknown - 100Unit/ML 151-200=2 units 02/13/2019 Solution 201-250=4 units 251-300=6 units 301-350=7 units 351-400=8 units Lantus 40 unit/bid, Unknown - 100Unit/ML increase dose as 02/13/2019 Solution instructed Gabapentin 1 tid Unknown - 400mg Capsules 02/13/2019 Lantus Solostar 70 units at Gabo Sullivan - , 03/20/2018 100Unit/ML Solution Pen-Inject Naproxen twice daily 60tabs Rosa Schroeder, - 500mg Tablets M.D. 02/13/2019 Levothyroxine Sodium 1 tab daily am in 90tabs Rosa Schroeder, - the empty stomach M.D. 02/13/2019 0.15mg Tablets Levothyroxine Sodium 1 tab daily in the 90tabs Katarzyna Aguila - empty stomach on, 03/20/2018 50mcg Tablets Latuda daily Unknown - 80mg Tablets 03/20/2018 Olanzapine daily Unknown - 5mg Tablets 02/13/2019 Cyclobenzaprine HCL as needed Unknown - 10mg 03/20/2018 Tablets Sertraline HCL Take 1+1/2 Tablets Unknown - 100mg By Mouth Once 03/20/2018 Tablets Daily Pantoprazole Sodium take 1 tablet by Unknown - 40mg mouth once daily 03/20/2018 Tablets Ondansetron every 6-8 hours as Home, - 8mg Tablets needed REINALDO Newman 03/20/2018 Dispers Ibuprofen as needed Home, - 600mg Tablets REINALDO Newman 03/20/2018 Immunizations CPT Code Status Date Vaccine Lot # [id number] Given 05/01/2018 Influenza Virus Vaccine, Quadrivalent, Split, Preservative Free Vital Signs Date Vital Result Comment 02/13/2019 2:37pm Height 67.5 inches 5'7.50" Weight 264.00 lb BMI (Body Mass Index) 40.7 kg/m2 05/30/2018 2:57pm Height 67.5 inches 5'7.50" Weight 264.00 lb BMI (Body Mass Index) 40.7 kg/m2 03/20/2018 10:42am Height 67.5 inches 5'7.50" Weight 258.00 lb BP Systolic 156 mmHg BP Diastolic 99 mmHg Heart Rate 79 /min BMI (Body Mass Index) 39.8 kg/m2 Results Test Date Facility Test Result H/L Range Note Laboratory test 01/19/2019 [facility] 193 mg/dL High 70-100 1 finding Glucose Laboratory test 01/19/2019 [facility] Care 58 mg/dL Low 70-100 2 finding Glucose Laboratory test 01/19/2019 [facility] of Care 59 mg/dL Low 70-100 3 finding Glucose Laboratory test 01/19/2019 [facility] of Care 72 mg/dL N 70-100 4 finding Glucose Laboratory test 01/19/2019 [facility] of Care 83 mg/dL N 70-100 5 finding Glucose Laboratory test 01/19/2019 [facility] Clotest SEE RESULT 6 finding BELOW Laboratory test 01/19/2019 [facility] Surgical SEE RESULT 7 finding Pathology Order BELOW Laboratory test 01/19/2019 [facility] Point of Care 64 mg/dL Low 70-100 8 finding Glucose Laboratory test 08/17/2018 [facility] Point of Care 145 mg/dL High 70-100 9 finding Glucose Xray 05/18/2018 [facility] Radiology Chest Ap <pending> Portable CBC W/Auto 05/18/2018 [facility] White Blood <pending> Differential(!) Count Ser Auto CNT RBC Red Blood Count <pending> Hemoglobin Blood <pending> Hematocrit <pending> MCV (Corpuscular Volume) <pending> MCH (Corpuscular Hemoglobin) <pending> MCHC (Corpuscular Hemog Conc) <pending> RDW <pending> Platelet Count Blood Auto CNT <pending> MPV <pending> Lymph% <pending> Piatt% <pending> Neutrophil % <pending> Absolute Lymphocytes <pending> Absolute Monocytes <pending> Absolute Neutrophils <pending> Laboratory test 05/18/2018 [facility] Lipase Ser/Plas (!) <pending> finding CMP(!) 05/18/2018 [facility] Sodium(!) <pending> Potassium(!) <pending> Chloride Serum/Plasma(!) <pending> Carbon Dioxide Ser/Plasm(!) <pending> BUN - Urea Nitrogen(!) <pending> Calcium Ser/Plasma Mass/Vol(!) <pending> Creatinine Serum Mass/Vol(!) <pending> Glucose Serum(!) <pending> BUN/Creatinine Ratio(!) <pending> Albumin Serum/Plasma(!) <pending> Alkaline Phosphatase(!) <pending> Bilirubin Total Mass/Vol(!) <pending> Ast - Sgot <pending> Alt - SGPT <pending> Protein Total <pending> Laboratory test 05/15/2018 [facility] C Difficile PCR <pending> finding Unspec Spec Xray 05/10/2018 [facility] Rad[facility] [place], Abd & <pending> Pelvis W/O [...] Screen Presumptive Posi <See Note> None Detect 10 Urine Phencyclidine Screen None Detected None Detect 11 Urinalysis Profile 11/02/2017 [facility] Import Urine Appearance Clear Urine Bilirubin Negative Negative Urine Blood Negative Negative Urine Color Yellow Urine Glucose 1+(50 mg/dL) Negative Urine Ketones Negative Negative Urine Leukocytes Negative Negative Urine Nitrite Negative Negative Urine Protein Negative Negative Urine Specific Aurora 1.018 1 1.010-1.030 Urine Urobilinogen Negative Negative Urine pH 5.0 1 5-9 Arterial Blood Gas 11/02/2017 [facility] Import Base Excess 2.1 1 High -2.0- 2.0 12 Arterial Hco3 Arterial 26.4 mmol/L 19-31 O2 Saturation Arterial 91.1 % Low 95-98 PH Arterial 7.36 1 7.35-7.45 Pco2 Arterial 50 mmHg High 35-45 Po2 Arterial 65 mmHg Low 80-100 Laboratory test finding 10/02/2017 [facility] Import Albumin 3.7 g/dL 3.2- 5.2 Albumin/Globulin Ratio 1.2 1 1-3 Alkaline Phosphatase 119 U/L High 34-104 Alt 18 U/L 7-52 Anion Gap 4 mmol/L 2-11 Ast 18 U/L 13-39 BUN/Creatinine Ratio 16.5 1 8-20 Blood Urea Nitrogen 14 mg/dL 6-24 CRP High Sensitivity 3.53 mg/L 13 Calcium 9.2 mg/dL 8.6-10.3 Chloride 103 mmol/L 101-111 Co2 Carbon Dioxide 29 mmol/L 22-32 Creatinine 0.85 mg/dL 0.51-0.95 Egfr 90.7 1 >60 14 Egfr Non- 70.5 1 >60 Globulin 3.2 g/dL 2-4 Glucose 347 mg/dL High 70-100 Potassium 4.5 mmol/L 3.5-5.0 Sodium 136 mmol/L 133-145 Total Bilirubin 0.20 mg/dL 0.2-1.0 Total Protein 6.9 g/dL 6.4-8.9 CBC Auto Diff 10/02/2017 [facility] Abs Basophils 0.1 10^3/uL 0-0.2 Abs [...] of Care 179 mg/dL High 70 -100 15 finding Glucose CBC W/Auto 08/22/2017 [facility] White Blood Count <pending> Differential(!) Ser Auto CNT RBC Red Blood Count <pending> Hemoglobin Blood <pending> Hematocrit <pending> MCV (Corpuscular Volume) <pending> MCH (Corpuscular Hemoglobin) <pending> MCHC (Corpuscular Hemog Conc) <pending> RDW <pending> Platelet Count Blood Auto CNT <pending> MPV <pending> Lymph% <pending> Piatt% <pending> Neutrophil % <pending> Absolute Lymphocytes <pending> [...] Troponin I <pending> Inr(!) <pending> Xray 08/17/2017 [facility] Abdomen/KUB 1 VW <pending> Xray 08/09/2017 [facility] Radiology Abdomen/KUB 1 VW <pending> Laboratory test 08/09/2017 [facility] Point of Care 266 mg/dL High 70 -100 16 finding Glucose Xray 08/08/2017 [facility] Radiology Abdomen/KUB 1 VW <pending> Xray 08/08/2017 [facility] Radiology Chest Ap Portable <pending> Laboratory test [...] 4.3 mmol/L 3.5-5.0 Sodium 136 mmol/L 133-145 17 TSH (Thyroid Stim Horm) 2.67 mcIU/mL 0.34-5.60 [...] N2N/[facility] Import Urine Specific 1.022 1 1.010-1.030 [place] Urine pH 6.0 1 5-9 Xray 07/04/2017 [facility] Radiology Abdomen/KUB 1 VW <pending> Laboratory test 06/13/2017 [facility] Import Hemoglobin A1c 9.2 1 High 5-7 finding Xray 05/09/2017 [facility] [place] CT Abd/Pel W <pending> Xray 05/02/2017 [facility] [place] CT Abd/Pel W/O <pending> Xray 04/06/2017 [facility] Radiology Chest Ap Portable <pending> Xray 04/06/2017 [facility] [place] CT Abd/Pel W <pending> Xray 03/29/2017 [facility] CT Abd/Pel W/O <pending> Xray 03/09/2017 [facility] Radiology Abdomen/KUB 1 VW <pending> Xray 02/15/2017 [facility] Radiology Chest Ap Portable <pending> Xray 06/21/2016 [facility] Radiology Abdomen/KUB 1 VW <pending> Xray 06/18/2016 [facility] Radiology Abdomen/KUB 1 VW <pending> Xray 06/18/2016 [facility] Radiology Abdomen/KUB 1 VW <pending> Xray 06/18/2016 [facility] Radiology Abdomen/KUB 1 VW <pending> Xray 08/04/2015 [facility] Radiology Abdomen/KUB 1 VW <pending> Xray 08/01/2014 [facility] [place] CT Brain Wo <pending> Laboratory test 05/01/2006 [facility] Lipase Ser/Plas <pending> finding (!) TSH Thyroid Stim Hormone(!) <pending> BMP W/O Egfr(!) 05/01/2006 [facility] Sodium(!) <pending> Potassium(!) <pending> Chloride Serum/Plasma(!) <pending> Carbon Dioxide Ser/Plasm(!) <pending> BUN - Urea Nitrogen(!) <pending> Calcium Ser/Plasma Mass/Vol(!) <pending> Creatinine Serum Mass/Vol(!) <pending> Glucose Serum(!) <pending> Xray 01/11/2006 [facility] Radiology MRI Cholangiogram <pending> 1 Digester Operator Helper: [id number] 2 Digester Operator Helper: [id number] 3 Repeat Test Insufficient sample Digester Operator Helper: [id number] Digester Operator Helper: [id number] Digester Operator Helper: [id number] 6 SEE RESULT BELOW Name: CECILIO ALFARO : [address]: Jonathan Reynoso DO Acct: [id number] Unit: [id number] AGE: 53 Location: OR Re01/19/19 SEX: F Status: BITA STROUD SPEC: [id number] ANKUR: 01/19/[address] [facility] [address]: Jonathan Reynoso DO REQ: [id number] RECD: 01/19/19 STATUS: TASHA BARFIELD DR: Rosa Schroeder MD _ SOURCE: GAS ANTRUM SPDESC: ORDERED: Clotest Procedure Result Reported Site Clotest Final 01/20/19- 08 ML Clotest Negative * ML - Main Lab . END OF REPORT DEPARTMENT OF PATHOLOGY, [address] [place] [address] Tay Gamboa M.D. Director [facility] # [id number] SEE RESULT BELOW Name: CECILIO ALFARO : [address]: Jonathan Reynoso DO Acct: [id number] Unit: [id number] AGE: 53 Location: OR Re01/19/19 SEX: F Status: DEP SDC SPEC: [id number] ANKUR: 01/19/19-916 [facility] [address]: Jonathan Reynoso DO REQ: [id number] RECD: 01/19/19-1443 STATUS: TASHA BARFIELD DR: Rosa Schroeder MD _ SOURCE: GAS ANTRUM SPDESC: ORDERED: Clotest Procedure Result Reported Site Clotest Final 01/20/19- 0809 ML Clotest Negative * ML - Main Lab . END OF REPORT DEPARTMENT OF PATHOLOGY, [address] [place] [address] Tay Gamboa M.D. Director [facility] # [id number] 7 SEE RESULT BELOW Name: CECILIO ALFARO : [address]: Jonathan Reynoso DO Acct: [id number] Unit: [id number] AGE: 53 Location: OR Re01/19/19 SEX: F Status: BITA JACOBS SPEC: [id number] ANKUR: 01/19/19 [facility] [address]: Jonathan Reynoso DO REQ: [id number] RECD: 01/19/199151 STATUS: NILS BARFIELD DR: Rosa Schroeder MD _ ORDERED: LEVEL 4/7 FINAL DIAGNOSIS 1. Small bowel, duodenum, biopsy: -- Small bowel mucosa with focal minimal villous blunting and prominent Zoey's glands. 2. Stomach, antrum, biopsy: -- Gastric antral mucosa with no significant pathologic abnormality. -- No active gastritis nor Helicobacter pylori-like organisms identified. 3. Distal esophagus, biopsy: -- Gastroesophageal transition zone mucosa with mild reactive foveolar hyperplasia. -- No goblet cell/intestinal metaplasia or dysplasia identified. -- No evidence of active reflux esophagitis identified. 4. Colon, cecum, biopsies: -- Tubular adenomas (2 fragments). -- No high grade dysplasia or malignancy. 5. Colon, ascending, biopsy: -- Tubular adenoma. -- No high grade dysplasia or malignancy. 6. Colon, random biopsies: -- Large intestinal mucosa with no significant pathologic abnormality. -- No evidence of microscopic/lymphocytic colitis, collagenous colitis, or other acute or chronic inflammatory bowel process is identified. 7. Colon, transverse, biopsies: -- Tubular adenomas (3 fragments). -- No high grade dysplasia or malignancy. CONTINUED ON NEXT PAGE DEPARTMENT OF PATHOLOGY, [address] [place] [address] Tay Gamboa M.D. Director [facility] # [id number] RUN DATE: 01/22/19 [facility] LAB LIVE PAGE 2 Patient: CECILIO ALFARO [id number] (Continued) FINAL DIAGNOSIS (Continued) PRE-OPERATIVE DIAGNOSIS 6) Rule out microscopic colitis POST-OPERATIVE DIAGNOSIS EGD: esophagus - mild reflux less than 1 cm; sliding hiatal hernia; gastric antrum biopsy; gastric - atrophic gastritis; biopsy; for H. Pylori; duodenum - blunted erosions; biopsy; colonoscopy: to terminal ileum; poor prep to fair with wash; cecal poly biopsy (2); ascending biopsy (1); transverse biopsy (2); random biopsy GROSS DESCRIPTION 1. The specimen is received in formalin labeled, Biopsy Duodenum, and consists of two alexander-pink irregular soft tissue fragments measuring 0.3 x 0.3 x 0.2 cm and 0.4 x 0.2 x 0.1 cm which are submitted entirely in one cassette. 2. The specimen is received in formalin labeled, Biopsy Gastric Antrum, and consists of a 0.3 x 0.3 x 0.1 cm aggregate of alexander-white irregular soft tissue fragments which is submitted entirely in one cassette. 3. The specimen is received in formalin labeled, Biopsy Distal Esophagus, and consists of a 0.3 x 0.2 x 0.2 cm alexander-white irregular soft tissue fragment which is submitted entirely in one cassette. 4. The specimen is received in formalin labeled, Biopsy Cecal Polyps, and consists of two alexander polypoid soft tissue fragments averaging 0.0 0.3 x 0.3 cm which are submitted entirely in one cassette. 5. The specimen is received in formalin labeled, Biopsy Ascending Colon Polyp, and consists of a 0.5 x 0.3 x 0.2 cm alexander-pink polypoid soft tissue fragment which is submitted entirely in one cassette. 6. The specimen is received in formalin labeled, Biopsy Random Colon, and consists of a 0.7 x 0.5 x 0.2 cm aggregate of alexander-pink irregular soft tissue fragments which is submitted entirely in one cassette. 7. The specimen is received in formalin labeled, Biopsy Transverse Colon Polyps, and consists of a 0.8 x 0.6 by up to 0.2 cm aggregate of alexander-pink irregular to polypoid soft CONTINUED ON NEXT PAGE DEPARTMENT OF PATHOLOGY, [address] [place] [address] Tay Gamboa M.D. Director [facility] # [id number] RUN DATE: 01/22/19 [facility] LAB LIVE PAGE 3 Patient: CECILIO ALFARO [id number] (Continued) GROSS DESCRIPTION (Continued) tissue fragments which is submitted entirely in one cassette. Signed by and Reported on: Tay Gamboa MD 1439 END OF REPORT DEPARTMENT OF PATHOLOGY, [address] [place] [address] Tay Gamboa M.D. Director [facility] # [id number] SEE RESULT BELOW Name: CECILIO ALFARO : [address]: Jontahan Reynoso DO Acct: [id number] Unit: [id number] AGE: 53 Location: OR Re01/19/19 SEX: F Status: DEP SD SPEC: [id number] ANKUR: 01/19/19-[address]: Jonathan Reynoso DO REQ: [id number] RECD: 01/19/19-1437 STATUS: NILS BARFIELD DR: Rosa Schroeder MD _ ORDERED: LEVEL 4/7 FINAL DIAGNOSIS 1. Small bowel, duodenum, biopsy: -- Small bowel mucosa with focal minimal villous blunting and prominent Zoey's glands. 2. Stomach, antrum, biopsy: -- Gastric antral mucosa with no significant pathologic abnormality. -- No active gastritis nor Helicobacter pylori-like organisms identified. 3. Distal esophagus, biopsy: -- Gastroesophageal transition zone mucosa with mild reactive foveolar hyperplasia. -- No goblet cell/intestinal metaplasia or dysplasia identified. -- No evidence of active reflux esophagitis identified. 4. Colon, cecum, biopsies: -- Tubular adenomas (2 fragments). -- No high grade dysplasia or malignancy. 5. Colon, ascending, biopsy: -- Tubular adenoma. -- No high grade dysplasia or malignancy. 6. Colon, random biopsies: -- Large intestinal mucosa with no significant pathologic abnormality. -- No evidence of microscopic/lymphocytic colitis, collagenous colitis, or other acute or chronic inflammatory bowel process is identified. 7. Colon, transverse, biopsies: -- Tubular adenomas (3 fragments). -- No high grade dysplasia or malignancy. CONTINUED ON NEXT PAGE DEPARTMENT OF PATHOLOGY, [address] [place] [address] Tay Gamboa M.D. Director [facility] # [id number] RUN DATE: 01/22/19 [facility] LAB LIVE PAGE 2 Patient: CECILIO ALFARO Cameron [id number] (Continued) FINAL DIAGNOSIS (Continued) PRE-OPERATIVE DIAGNOSIS 6) Rule out microscopic colitis POST-OPERATIVE DIAGNOSIS EGD: esophagus - mild reflux less than 1 cm; sliding hiatal hernia; gastric antrum biopsy; gastric - atrophic gastritis; biopsy; for H. Pylori; duodenum - blunted erosions; biopsy; colonoscopy: to terminal ileum; poor prep to fair with wash; cecal poly biopsy (2); ascending biopsy (1); transverse biopsy (2); random biopsy GROSS DESCRIPTION 1. The specimen is received in formalin labeled, Biopsy Duodenum, and consists of two alexander-pink irregular soft tissue fragments measuring 0.3 x 0.3 x 0.2 cm and 0.4 x 0.2 x 0.1 cm which are submitted entirely in one cassette. 2. The specimen is received in formalin labeled, Biopsy Gastric Antrum, and consists of a 0.3 x 0.3 x 0.1 cm aggregate of alexander-white irregular soft tissue fragments which is submitted entirely in one cassette. 3. The specimen is received in formalin labeled, Biopsy Distal Esophagus, and consists of a 0.3 x 0.2 x 0.2 cm alexander-white irregular soft tissue fragment which is submitted entirely in one cassette. 4. The specimen is received in formalin labeled, Biopsy Cecal Polyps, and consists of two alexander polypoid soft tissue fragments averaging 0.0 0.3 x 0.3 cm which are submitted entirely in one cassette. 5. The specimen is received in formalin labeled, Biopsy Ascending Colon Polyp, and consists of a 0.5 x 0.3 x 0.2 cm alexander-pink polypoid soft tissue fragment which is submitted entirely in one cassette. 6. The specimen is received in formalin labeled, Biopsy Random Colon, and consists of a 0.7 x 0.5 x 0.2 cm aggregate of alexander-pink irregular soft tissue fragments which is submitted entirely in one cassette. 7. The specimen is received in formalin labeled, Biopsy Transverse Colon Polyps, and consists of a 0.8 x 0.6 by up to 0.2 cm aggregate of alexander-pink irregular to polypoid soft CONTINUED ON NEXT PAGE DEPARTMENT OF PATHOLOGY, [address] [place] [address] Tay Gamboa M.D. Director [facility] # [id number] RUN DATE: 01/22/19 [facility] LAB LIVE PAGE 3 Patient: CECILIO ALFARO Cameron [id number] (Continued) GROSS DESCRIPTION (Continued) tissue fragments which is submitted entirely in one cassette. Signed by and Reported on: Tay Gamboa MD 1439 END OF REPORT DEPARTMENT OF PATHOLOGY, [address] [place] [address] Tay Gamboa M.D. Director [facility] # [id number] 8 Digester Operator Helper: [id number] Digester Operator Helper: [id number] 10 Presumptive Positive Presumptive positive results are unconfirmed. 11 The urine specimen was tested at the listed cutoffs: Drug class test level (ng/mL) Amphetamines 500 Barbiturates 200 Benzodiazepine metabolites 200 Cocaine metabolites 150 Cannabinoids 50 Opiates 300 Pcp 25 Specimen was received without chain of custody. Results should be used for medical purposes only. 12 Reference ranges based on room air. 13 Low risk: <1.00 Average risk: 1.00-3.00 High risk: >3.00 14 Because ethnic data is not always [...] 5 Kidney failure <15 (or dialysis) 15 Digester Operator Helper: [id number] 16 Digester Operator Helper: [id number] 17 Because ethnic data is not always [...] (or dialysis) Procedures Date Code Description Status 08/17/2018 90629 Colonoscopy Completed 04/28/2007 90746 EGD+Biopsy Single Or Multiple Completed 01/07/2004 74416 EGD+Biopsy Single Or Multiple Completed Encounters Type Date Location Provider Dx Diagnosis Office Visit 05/30/2018 Gastroenterology Jonathan Reynoso, R19.7 Diarrhea, 3:00p [facility] unspecified R19.5 Other fecal abnormalities K90.3 Pancreatic steatorrhea Z87.19 Personal history of other diseases of the digestive system Office Visit 03/20/2018 Gastroenterology Jonathan Reynoso, Z12.11 Encounter for 10:15a [facility] screening for malignant neoplasm of colon Z79.4 intermediate (current) use of insulin 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
--- OUTSIDE RECORDS SUMMARY | 2019-03-08 18:51 | XMS REPORT | Continuity of Care Document ---
:1965 External Reference #:[id number] Author Name Johanna Stevenson Care Team Providers Name Role Phone Rosa Schroeder M.D. Care Team Information [employer]el L[employer] Tech Unavailable Rosa Schroeder M.D. Primary Care Physician Unavailable Payers Date Identification Numbers Payment Provider Subscriber Policy Number: [id number] Medicare Cecilio Alfaro PayID: [id number] [facility] [address] [place] [address] Policy Number: [id number] Medicaid/Medicare Cecilio Alfaro Group Name: 2 2 N F [facility] [employer] GP PayID: [id number] [address] [place] [address] Problems Active Problems Provider Date Benign neoplasm [...] dizziness 05/10/2017 Tramadol altered mental status 05/10/2017 [place] 05/10/2017 Medications Active Medications SIG Qnty Indications Ordering Date Provider Olanzapine take one tablet 30tabs Jonathan Reynoso, 02/13/2019 5mg Tablets by mouth In Am DO Miralax 1 scoop PO bid. 510units Jonathan Reynoso, 08/17/2018 3350NF Powder DO Nystatin apply twice daily 90units Unknown 05/15/2018 [id number]/GM until rash clears Powder Ventolin HFA 2 [...] With Flavor by mouth as 4000ml Jonathan Edgardo, 11/22/2018 - Packs directed DO 01/23/2019 240gm [...] 03/20/2018 Acetaminophen-Codeine 1 tab by mouth 20tabs Duarte, 05/26/2017 - #3 every 4-6 hours as [...] Capsules 02/13/2019 Lantus Solostar 70 units at hs [place] 03/20/2018 100Unit/ML Solution Pen-Inject Naproxen twice daily [...] - 40mg mouth once daily 03/20/[address] Ondansetron every 6-8 hours as Home, - 8mg Tablets needed REINALDO Newman 03/20/2018 Dispers Ibuprofen as needed Home, - 600mg Tablets REINALDO Newman 03/20/2018 Immunizations CPT Code Status Date Vaccine Lot # [id number] Given 05/01/2018 Influenza Virus Vaccine, Quadrivalent, Split, [...] Result H/L Range Note Laboratory test 01/19/2019 [facility] [place] mg/dL High 70-100 1 finding Glucose Laboratory test 01/19/2019 [facility] [place] 58 mg/dL Low 70-100 2 finding Glucose Laboratory test 01/19/2019 [facility] [place] 59 mg/dL Low 70-100 3 finding Glucose Laboratory test 01/19/2019 [facility] [place] 72 mg/dL N 70-100 4 finding Glucose Laboratory test 01/19/2019 [facility] [place] 83 mg/dL N 70-100 5 finding Glucose Laboratory test 01/19/2019 [facility] [place] Clotest SEE RESULT 6 finding BELOW Laboratory test 01/19/2019 [facility] [place] Surgical SEE RESULT 7 finding Pathology Order BELOW Laboratory test 01/19/2019 [facility] [place] 64 mg/dL Low 70-100 8 finding Glucose Laboratory test 08/17/2018 [facility] [place] 145 mg/dL High 70-100 9 finding Glucose Xray 05/18/2018 [facility] [place] Chest Ap <pending> Portable CBC W/Auto 05/18/2018 [facility] White Blood <pending> Differential(!) Count Ser Auto CNT RBC Red Blood Count <pending> Hemoglobin Blood <pending> Hematocrit <pending> MCV (Corpuscular Volume) <pending> MCH (Corpuscular Hemoglobin) <pending> MCHC (Corpuscular Hemog Conc) <pending> RDW <pending> Platelet Count Blood Auto CNT <pending> MPV <pending> Lymph% <pending> [place]% <pending> Neutrophil % <pending> Absolute Lymphocytes <pending> [...] PCR <pending> finding Unspec Spec Xray 05/10/2018 [facility] [place], Abd & [...] Detected None Detect 11 Urinalysis Profile 11/02/2017 N2N/CCD Import Urine Appearance Clear Urine Bilirubin Negative Negative Urine Blood Negative Negative Urine Color Yellow Urine Glucose 1+(50 mg/dL) Negative Urine Ketones Negative Negative Urine Leukocytes Negative Negative Urine Nitrite Negative Negative Urine Protein Negative Negative Urine Specific [employer] 1.018 1 1.010-1.030 Urine Urobilinogen Negative Negative [...] mg/dL High 70 -100 15 finding Glucose Xray 08/17/2017 [facility] [place] Abdomen/KUB 1 VW <pending> Xray 08/09/2017 [facility] [place] Abdomen/KUB 1 VW <pending> Laboratory test 08/09/2017 N2N/CCD Import Point of Care 266 mg/dL High 70 -100 16 finding Glucose Xray 08/08/2017 [facility] [place] Abdomen/KUB 1 VW <pending> Xray 08/08/2017 [facility] [place] Chest Ap Portable <pending> CBC Auto Diff 08/08/2017 N2N/CCD Import Abs Basophils 0.1 0-0.2 10^3/uL Abs Eosinophils 0.7 10^3/uL High 0-0.6 Abs [...] N2N/CCD Import Urine Specific 1.022 1 1.010-1.030 [employer] Urine pH 6.0 1 5-9 Laboratory test finding 08/08/2017 N2N/CCD Import Albumin 3.7 g/dL 3.2- 5.2 Albumin/Globulin Ratio 0.9 1 Low 1-3 Alkaline [...] mg/dL 0.2-1.0 Total Protein 7.8 g/dL 6.4-8.9 Xray 07/04/2017 [facility] [place] Abdomen/KUB 1 VW <pending> Laboratory test 06/13/2017 N2N/CCD Import Hemoglobin A1c 9.2 1 High 5-7 finding Xray 05/09/2017 [facility] [place] Abd/Pel W <pending> Xray 05/02/2017 [facility] [place] Abd/Pel W/O <pending> Xray 04/06/2017 [facility] [place] Chest Ap Portable <pending> Xray 04/06/2017 [facility] [place] Abd/Pel W <pending> Xray 03/29/2017 [facility] [place] Abd/Pel W/O <pending> Xray 03/09/2017 [facility] [place] Abdomen/KUB 1 VW <pending> Xray 02/15/2017 [facility] [place] Chest Ap Portable <pending> Xray 06/21/2016 [facility] [place] Abdomen/KUB 1 VW <pending> Xray 06/18/2016 [facility] [place] Abdomen/KUB 1 VW <pending> Xray 06/18/2016 [facility] [place] Abdomen/KUB 1 VW <pending> Xray 06/18/2016 [facility] [place]iology Abdomen/KUB 1 VW <pending> Xray 08/04/2015 [facility] [place] Abdomen/KUB 1 VW <pending> Xray 08/01/2014 [facility] [place] Brain Wo <pending> BMP W/O Egfr(!) 05/01/2006 [facility] Sodium(!) <pending> Potassium(!) <pending> Chloride Serum/Plasma(!) <pending> Carbon Dioxide Ser/Plasm(!) <pending> BUN - Urea Nitrogen(!) <pending> Calcium Ser/Plasma Mass/Vol(!) <pending> Creatinine Serum Mass/Vol(!) <pending> Glucose Serum(!) <pending> Laboratory test 05/01/2006 [facility] Lipase Ser/Plas (!) <pending> finding TSH Thyroid Stim Hormone(!) <pending> Xray 01/11/2006 [facility] [place] Cholangiogram <pending> 1 Revenue Inspector: [id number] 2 Revenue Inspector: [id number] 3 Repeat Test Insufficient sample Revenue Inspector: [id number] 4 Revenue Inspector: [id number] 5 Revenue Inspector: [id number] SEE RESULT BELOW Name: CECILIO ALFARO : [address]: Jonathan Reynoso DO Acct: [id number] Unit: [id number] AGE: 53 Location: OR Re01/19/19 SEX: F Status: DEP SDC SPEC: [id number] ANKUR: 01/19/19-[address]: Jonathan Reynoso DO REQ: [id number] RECD: 01/19/19 STATUS: COMP OTHR DR: Rosa Schroeder MD _ SOURCE: GAS ANTRUM SPDESC: ORDERED: Clotest Procedure Result Reported Site Clotest Final 01/20/19- 0809 ML Clotest Negative * - Main Lab . END OF REPORT DEPARTMENT OF PATHOLOGY, [address] [place] [address] Tay Gamboa M.D. Director [facility] # [id number] SEE RESULT BELOW Name: CECILIO ALFARO : [address]: Jonathan Reynoso DO Acct: [id number] Unit: [id number] AGE: 53 Location: OR Re01/19/19 SEX: F Status: DEP SDC SPEC: [id number] ANKUR: 01/19/[address] [facility] [address]: Jonathan Reynoso DO REQ: [id number] RECD: 01/19/19 STATUS: TASHA BARFIELD DR: Rosa Schroeder MD _ SOURCE: GAS ANTRUM SPDESC: ORDERED: Clotest Procedure Result Reported Site Clotest Final 01/20/19- 08 ML Clotest Negative * ML - Main Lab . END OF REPORT DEPARTMENT OF PATHOLOGY, [address] [place] [address] Tay Gamboa M.D. Director [facility] # [id number] 7 SEE RESULT BELOW Name: CECILIO ALFARO : [address]: Jonathan Reynoso DO Acct: [id number] Unit: [id number] AGE: 53 Location: OR Re01/19/19 SEX: F Status: BITA STROUD SPEC: [id number] ANKUR: 01/19/19-[address] [facility] [address]: Jonathan Reynoso DO REQ: [id number] RECD: 01/19/190929 STATUS: NILS BARFIELD DR: Rosa Schroeder MD [...] CONTINUED ON NEXT PAGE DEPARTMENT OF PATHOLOGY, [address] [place] [address] Tay Gamboa M.D. Director [facility] # [id number] RUN DATE: 01/22/19 [facility] LAB LIVE PAGE 2 Patient: CECILIO ALFARO [id number] (Continued) FINAL DIAGNOSIS (Continued) PRE-OPERATIVE DIAGNOSIS 6) [...] CONTINUED ON NEXT PAGE DEPARTMENT OF PATHOLOGY, [address] [place] [address] Tay Gamboa M.D. Director [facility] # [id number] RUN DATE: 01/22/19 [facility] LAB LIVE PAGE 3 Patient: CECILIO ALFARO [id number] (Continued) GROSS DESCRIPTION (Continued) tissue fragments which is submitted entirely in one cassette. Signed by and Reported on: Tay Gamboa MD 1439 END OF REPORT DEPARTMENT OF PATHOLOGY, [address] [place] [address], [place] [address] Tay Gamboa M.D. Director [facility] # [id number] SEE RESULT BELOW Name: CECILIO ALFARO Cameron : [address]: Jonathan Reynoso DO Acct: [id number] Unit: [id number] AGE: 53 Location: OR Re01/19/19 SEX: F Status: [facility] SPEC: [id number] ANKUR: 01/19/[address] [facility] [address]: Jonathan Reynoso DO REQ: [id number] RECD: 01/19/195675 STATUS: NILS BARFIELD DR: Rosa Schroeder MD [...] CONTINUED ON NEXT PAGE DEPARTMENT OF PATHOLOGY, [address] [place] [address] Tay Gamboa M.D. Director [facility] # [id number] RUN DATE: 01/22/19 [facility] LAB LIVE PAGE 2 Patient: CECILIO ALFARO [id number] (Continued) FINAL DIAGNOSIS (Continued) PRE-OPERATIVE DIAGNOSIS 6) [...] CONTINUED ON NEXT PAGE DEPARTMENT OF PATHOLOGY, [address] [place] [address] Tay Gamboa M.D. Director [facility] # [id number] RUN DATE: 01/22/19 [facility] LAB LIVE PAGE 3 Patient: CECILIO ALFARO [id number] (Continued) GROSS DESCRIPTION (Continued) tissue fragments which is submitted entirely in one cassette. Signed by and Reported on: Tay Gamboa MD 1439 END OF REPORT DEPARTMENT OF PATHOLOGY, [address] [place] [address] Tay Gamboa M.D. Director [facility] # [id number] 8 Revenue Inspector: [id number] Revenue Inspector: [id number] 10 Presumptive Positive Presumptive positive results are [...] 5 Kidney failure <15 (or dialysis) 15 Revenue Inspector: [id number] 16 Revenue Inspector: [id number] 17 Because ethnic data is not always [...] dialysis) Procedures Date Code Description Status 08/17/2018 41030 Colonoscopy Completed 04/28/2007 26143 EGD+Biopsy Single Or Multiple Completed 01/07/2004 33083 EGD+Biopsy Single Or Multiple Completed Encounters Type Date Location Provider Dx Diagnosis Office Visit 05/30/2018 Gastroenterology Jonathan Reynoso, R19.7 Diarrhea, 3:00p [facility] unspecified R19.5 Other fecal abnormalities K90.3 Pancreatic steatorrhea Z87.19 Personal history of other diseases of the digestive system Office Visit 03/20/2018 Gastroenterology Jonathan Edgardo, Z12.11 Encounter for 10:15a [facility] screening for malignant neoplasm of colon 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
[2019-03-08 19:19] VITALS: BP 118/71
[2019-03-08] MEDS ORDERED: Cephalexin CAP* 500 MG PO ONE (19:49)
--- NOTE | 2019-03-08 19:58 | UC ---
Skin Complaint HPI - HPI Summary HPI Summary: 53 yo female with left leg redness and swelling x 2 days states it feels similar to when she had cellulitis no fever hx DM - History of Current Complaint Chief Complaint: UCSkin Time Seen by Provider: 03/08/19 19:25 Stated Complaint: CELLULITIS IN LEG Hx Obtained From: Patient Hx Last Menstrual Period: "last month" Onset/Duration: Gradual Onset, Lasting Days Timing: Constant Onset Severity: Mild Current Severity: Mild Pain Intensity: 0 Pain Scale Used: 0-10 Numeric Location: Discrete Character: Swelling, Redness Aggravating Factor(s): Nothing Alleviating Factor(s): Nothing Associated Signs & Symptoms: Positive: Negative, Tenderness Similar Episode/Dx as: cellulitis - Allergy/Home Medications Allergies/Adverse Reactions: Allergies Allergy/AdvReac Type Severity Reaction Status Date / Time lurasidone [From Latuda] Allergy Severe Altered Verified 03/08/19 19:21 Mental Status ciprofloxacin Allergy Intermediate Dizziness Verified 03/08/19 19:21 latex Allergy Mild Rash Verified 03/08/19 19:21 lithium Allergy Mild See Comment Verified 03/08/19 19:21 nalbuphine Allergy Unknown Verified 03/08/19 19:21 Reaction Details naldemedine Allergy Unknown Verified 03/08/19 19:21 Reaction Details nitrofurantoin Allergy See Comment Verified 03/08/19 19:21 [From Macrobid] Penicillins Allergy Rash Verified 03/08/19 19:21 perphenazine Allergy Unknown Verified 03/08/19 19:21 Reaction Details Sulfa (Sulfonamide Allergy Hives Verified 03/08/19 19:21 Antibiotics) tramadol Allergy Altered Verified 03/08/19 19:21 Mental Status ENVIRONMENTAL Allergy Mild SINUS Uncoded 03/08/19 19:21 Home Medications: Home Medications Benzocaine [Anbesol Maximum Strength] 20 % MT TID PRN 03/08/19 [History Confirmed 03/08/19] Loratadine 10 mg PO DAILY PRN 03/08/19 [History Confirmed 03/08/19] Nicotine GUM* 2MG FRUIT FLAVOR [Nicotine GUM*] 2 mg PO Q2H 03/08/19 [History Confirmed 03/08/19] Phenazopyridine TAB* [Pyridium 100 mg TAB*] 100 mg PO BID PRN 03/08/19 [History Confirmed 03/08/19] PMH/Surg Hx/FS Hx/Imm Hx Previously Healthy: Yes Endocrine History: Diabetes, Dyslipidemia Cardiovascular History: Hypertension Respiratory History: Asthma Psychological History: Anxiety, Depression Other History Of: Negative For: Anticoagulant Therapy - Surgical History Surgical History: Yes Surgery Procedure, Year, and Place: 2011-CATARACT EXTRACTION;. GALLBLADDER REMOVED ; - Family History Known Family History: Positive: Other - Anxiety and depression, [place] - father Negative: Cardiac Disease, Hypertension, Diabetes Family History: Depression and anxiety - Social History Alcohol Use: None Substance Use Type: None Smoking Status (MU): Light Every Day Tobacco Smoker Type: Cigarettes Amount Used/How Often: 1/2 PPD FOR LAST 30 DAYS, NO OTHER TOBACCO Length of Time of Smoking/Using Tobacco: since she was "young" Have You Smoked in the Last Year: Yes - Patient has smoked within the last 30 days When Did the Patient Quit Smoking/Using Tobacco: ATTEMPTING TO QUIT Household Exposure Type: Cigarettes - Immunization History Most Recent Influenza Vaccination: Within the past month or two at [facility] Most Recent Tetanus Shot: Unsure Most Recent Pneumonia Vaccination: 05/20/2017 Review of Systems All Other Systems Reviewed And Are Negative: Yes Constitutional: Positive: Negative Skin: Positive: Negative Eyes: Positive: Negative ENT: Positive: Negative Respiratory: Positive: Negative Cardiovascular: Positive: Negative Gastrointestinal: Positive: Negative Genitourinary: Positive: Negative Motor: Positive: Negative Neurovascular: Positive: Negative Musculoskeletal: Positive: Negative Neurological: Positive: Negative Psychological: Positive: Negative Physical Exam Triage Information Reviewed: Yes Appearance: Well-Appearing, No Pain Distress, Well-Nourished Vital Signs: Initial Vital Signs Temp 99.0 F 03/08/19 19:12 Pulse 107 03/08/19 19:12 Resp 16 03/08/19 19:12 BP 118/71 03/08/19 19:12 Pulse Ox 97 03/08/19 19:12 Vital Signs Reviewed: Yes Eyes: Positive: Conjunctiva Clear ENT: Positive: Hearing grossly normal. Negative: Nasal congestion, Nasal drainage, Tonsillar swelling, Tonsillar exudate, Trismus, Muffled voice, Dental tenderness Neck: Positive: Supple, Nontender, No Lymphadenopathy Respiratory: Positive: Lungs clear, Normal breath sounds, No respiratory distress, No accessory muscle use Cardiovascular: Positive: RRR, No Murmur Musculoskeletal: Positive: ROM Intact Neurological: Positive: Alert Psychological Exam: Normal Skin Exam: Other - see image Images Feet (Multiple View): 1 - red/warm/slight swelling, calf not tender Course/Dx - Diagnoses Provider Diagnosis: Left leg cellulitis Discharge - Sign-Out/Discharge Documenting (check all that apply): Patient Departure All imaging exams completed and their final reports reviewed: No Studies - Discharge Plan Condition: Stable Disposition: HOME Prescriptions: Cephalexin CAP* [Keflex CAP*] 500 mg PO QID #28 cap Patient Education Materials: Cellulitis (ED) Referrals: Rosa Schroeder MD [Primary Care Provider] - 5 Days Additional Instructions: to ER in 48 hours if not better - Billing Disposition and Condition Condition: STABLE Disposition: Home
== END 2019-03-08 20:06 | disposition home or self-care (01) ==
LOC: UCEAST 18:42
DX: L03.116 Cellulitis of left lower limb (principal); E11.9 Type 2 diabetes mellitus without complications; E78.5 Hyperlipidemia, unspecified; I10 Essential (primary) hypertension; J45.909 Unspecified asthma, uncomplicated; F41.9 Anxiety disorder, unspecified; F32.9 Major depressive disorder, single episode, unspecified; F17.210 Nicotine dependence, cigarettes, uncomplicated; Z88.0 Allergy status to penicillin; Z91.040 Latex allergy status; Z88.2 Allergy status to sulfonamides
CPT/HCPCS: 99212; A9270-GY; G0463

== ENCOUNTER 2019-05-16 10:08 | Emergency (ER) | payer MEDICARE, MEDICAID ==
[2019-05-16 10:15] VITALS: BP 181/98
[2019-05-16] MEDS ORDERED: Acetaminophen TAB* 325 MG PO ONE (10:31)
--- NOTE | 2019-05-16 10:43 | ED ---
Abdominal Pain/Female - HPI Summary HPI Summary: Pt is a 53 y/o F presenting to the ED with a chief complaint of abdominal pain initially onset this past 05/11/19, when she went to see Dr. Hernandez. She has an umbilical hernia that he reduced in the office, and she was sent home with instructions to lose ~10lbs before considering a herniorrhaphy. She notes decreased appetite, some N/V, and pain in the area where her hernia is. She denies fever, diarrhea, or constipation. 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 - History of Current Complaint Chief Complaint: EDAbdPain Stated Complaint: ABD PAIN PER EMS Time Seen by Provider: 05/16/19 10:09 Hx Obtained From: Patient Hx Last Menstrual Period: "last month" Onset/Duration: Gradual Onset, Lasting Days, Still Present Timing: Days Severity Initially: Moderate Severity Currently: Severe Pain Intensity: 8 Pain Scale Used: 0-10 Numeric Location: Umbilical Radiates: No Aggravating Factor(s): Food Alleviating Factor(s): Nothing Associated Signs and Symptoms: Positive: Decreased Appetite, Nausea, Vomiting. Negative: Fever, Constipation, Diarrhea Allergies/Adverse Reactions: Allergies Allergy/AdvReac Type Severity Reaction Status Date / Time lurasidone [From Latuda] Allergy Severe Altered Verified 03/08/19 19:21 Mental Status ciprofloxacin Allergy Intermediate Dizziness Verified 03/08/19 19:21 latex Allergy Mild Rash Verified 03/08/19 19:21 lithium Allergy Mild See Comment Verified 03/08/19 19:21 nalbuphine Allergy Unknown Verified 03/08/19 19:21 Reaction Details naldemedine Allergy Unknown Verified 03/08/19 19:21 Reaction Details nitrofurantoin Allergy See Comment Verified 03/08/19 19:21 [From Macrobid] Penicillins Allergy Rash Verified 03/08/19 19:21 perphenazine Allergy Unknown Verified 03/08/19 19:21 Reaction Details Sulfa (Sulfonamide Allergy Hives Verified 03/08/19 19:21 Antibiotics) tramadol Allergy Altered Verified 03/08/19 19:21 Mental Status ENVIRONMENTAL Allergy Mild SINUS Uncoded 03/08/19 19:21 PMH/Surg Hx/FS Hx/Imm Hx Previously Healthy: Yes Endocrine/Hematology History: Reports: Hx Diabetes - TYPE 2, Hx Thyroid Disease , Other Endocrine/Hematological Disorders - Chronic pancreatitis Denies: Hx Anticoagulant Therapy Cardiovascular History: Reports: Hx Hypertension, Other Cardiovascular Problems/ Disorders - HX OF PSVT 04/2008 Denies: Hx Hypercholesterolemia, Hx Pacemaker/ICD Respiratory History: Reports: Hx Asthma, Hx Seasonal Allergies, Hx Sleep Apnea - HX OF IN THE PAST Denies: Hx Chronic Bronchitis, Hx Chronic Obstructive Pulmonary Disease (COPD ), Hx Cystic Fibrosis, Hx Lung Cancer, Hx Pleural Effusion, Hx Pneumonia, Hx Pulmonary Edema, Hx Pulmonary Embolism, Other Respiratory Problems/Disorders GI History: Reports: Hx Gall Bladder Disease, Hx Gastroesophageal Reflux Disease - ON MEDICATION FOR, Hx Gastrointestinal Bleed, Hx Irritable Bowel, Other GI Disorders - HX OF pancreatitis- STATES LAST ABOUT 2 WEEKS AGO- STATES SLIGHT CASE Denies: Hx Ulcer History: Reports: Other Problems/Disorders - urinary incontinence Denies: Hx Dialysis, Hx Renal Disease Musculoskeletal History: Reports: Hx Arthritis, Hx Back Problems, Other Musculoskeletal History - GEN MUSCULOSKELETAL PAIN Denies: Hx Rheumatoid Arthritis, Hx Bursitis, Hx Congenital Bone Abnormalities, Hx Fibromyalgia, Hx Gout, Hx Orthopedic Injury, Hx Osteoporosis, Hx Scoliosis, Hx Tendonitis Sensory History: Reports: Hx Contacts or Glasses, Hx Vision Problem Denies: Hx Cataracts, Hx Eye Injury, Hx Eye Prosthesis, Hx Glaucoma, Hx Macular Degeneration, Hx Hearing Aid, Other Sensory Impairments Opthamlomology History: Reports: Hx Contacts or Glasses, Hx Vision Problem Denies: Hx Cataracts, Hx Eye Injury, Hx Eye Prosthesis, Hx Glaucoma, Hx Macular Degeneration, Other Sensory Impairments Neurological History: Reports: Hx Developmental Delay - intellectual disability , Hx Seizures - STATES WITH ALLERGIC REACTION TO TRAMADOL Denies: Hx Dementia, Hx Headaches, Other Neuro Impairments/Disorders Psychiatric History: Reports: Hx Anxiety, Hx Depression, Hx Panic Disorder - TAKES DAILY, Hx Post Traumatic Stress Disorder, Hx Inpatient Treatment, Hx Community Mental Health Tx, Hx Bipolar Disorder - pt manic, Hx Suicide Attempt, Hx of Violent Episodes Against Others, Other Psychiatric Issues/Disorders - PSYCHOSIS NOS, HX OF PTSD, SCHIZOAFFECTIVE DISORDER, BORDERLINE PERSONALITY Denies: Hx Attention Deficit Hyperactivity Disorder, Hx Eating Disorder, Hx Schizophrenia, Hx Substance Abuse - Cancer History Cancer Type, Location and Year: None reported - Surgical History Surgery Procedure, Year, and Place: 2011-CATARACT EXTRACTION;. GALLBLADDER REMOVED ; Hx Anesthesia Reactions: No - Immunization History Date of Tetanus Vaccine: unk Date of Influenza Vaccine: fall 2017 Infectious Disease History: No Infectious Disease History: Denies: Hx Clostridium Difficile, Hx Hepatitis, Hx Human Immunodeficiency Virus (HIV), Hx of Known/Suspected MRSA, Hx Shingles, Hx Tuberculosis, Hx Known/ Suspected VRE, Hx Known/Suspected VRSA, History Other Infectious Disease, Traveled Outside the [place] in Last 30 Days - Family History Known Family History: Positive: Other - Anxiety and depression, [place] - father Negative: Cardiac Disease, Hypertension, Diabetes Family History: Depression and anxiety - Social History Alcohol Use: None Hx Substance Use: No Substance Use Type: Reports: None Hx Tobacco Use: Yes Smoking Status (MU): Light Every Day Tobacco Smoker Type: Cigarettes Amount Used/How Often: 1/2 PPD FOR LAST 30 DAYS, NO OTHER TOBACCO Length of Time of Smoking/Using Tobacco: since she was "young" Have You Smoked in the Last Year: Yes - Patient has smoked within the last 30 days Review of Systems Negative: Fever Positive: Abdominal Pain, Vomiting, Nausea. Negative: Diarrhea, Other - constipation All Other Systems Reviewed And Are Negative: Yes Physical Exam - Summary Physical Exam Summary: Constitutional: Well-developed, Well-nourished, Alert. (-) Distressed Skin: Warm, Dry HENT: Normocephalic; Atraumatic Eyes: Conjunctiva normal Neck: Musculoskeletal ROM normal neck. (-) JVD, (-) Stridor, (-) Tracheal deviation Cardio: Rhythm regular, rate normal, Heart sounds normal; Intact distal pulses; Radial pulses are 2+ and symmetric. (-) Murmur Pulmonary/Chest wall: Effort normal. (-) Respiratory distress, (-) Wheezes, (-) Rales Abd: Soft. Small umbilical hernia that is reducable. There is no overlying erythema, tenderness, or edema. (-) Distension, (-) Guarding, (-) Rebound Musculoskeletal: (-) Edema Lymph: (-) Cervical adenopathy Neuro: Alert, Oriented x3 Psych: Mood and affect Normal Triage Information Reviewed: Yes Vital Signs On Initial Exam: Initial Vitals Temp Pulse Resp BP Pulse Ox 98.5 F 84 16 181/98 96 05/16/19 10:11 05/16/19 10:11 05/16/19 10:11 05/16/19 10:11 05/16/19 10:11 Vital Signs Reviewed: Yes Procedures - Sedation Patient Received Moderate/Deep Sedation with Procedure: No Diagnostics - Vital Signs Vital Signs Temp Pulse Resp BP Pulse Ox 05/16/19 10:11 98.5 F 84 16 181/98 96 - Laboratory Lab Statement: Any lab studies that have been ordered have been reviewed, and results considered in the medical decision making process. Abdominal Pain Fem Course/Dx - Course Course Of Treatment: Patient is here with pain at her umbilical hernia after having it reduced by the surgeon 5 days ago. Patient has an umbilical hernia that is reducible at bedside. Patient is overlying erythema or warmth. Patient has been tenderness at her local hernia when she is distracted. Patient was encouraged to follow up with her surgeon and to continue losing weight for her surgery. - Diagnoses Provider Diagnoses: Umbilical hernia Discharge ED - Sign-Out/Discharge Documenting (check all that apply): Patient Departure - Discharge Plan Condition: Stable Disposition: HOME Patient Education Materials: Umbilical Hernia (ED) Referrals: Rosa Schroeder MD [Primary Care Provider] - Additional Instructions: Follow up with Dr. Hernandez within the next 1-3 days. Come back to the emergency department if your hernia pops out and does not go back in. - Billing Disposition and Condition Condition: STABLE Disposition: Home - Attestation Statements Document Initiated by Scribe: Yes Documenting Scribe: Anu Parra Provider For Whom Noam is Documenting (Include Credential): Sergio Menjivar MD. Scribe Attestation: Anu Rosales, scribed for Sergio Menjivar MD. on 05/16/19 at 1157. Scribe Documentation Reviewed: Yes Provider Attestation: The documentation as recorded by the Anu roth accurately reflects the service I personally performed and the decisions made by , Sergio Menjivar MD. Status of Scribe Document: Viewed
--- OUTSIDE RECORDS SUMMARY | 2019-05-16 10:46 | XMS REPORT | Continuity of Care Document ---
:1965 External Reference #:[id number] Author Name Rosa Schroeder MD (transmitted by agent of provider Angie Umanzor) Address [address] [facility], [place] [address] Care Team Providers Name Role Phone Ben Ovalles MD - Gastroenterology Care Team Information Associate Professor Erik Grant MD - Ophthalmology Care Team Information Associate Professor [phone] Rosa Schroeder M.D. - Family Medicine Care Team Information Associate Professor Problems Active Problems Provider Date Type 2 [...] 08/11/2017 Pancreatitis Rosa Schroeder MD Onset: 05/15/2018 Social History Type Date Description Comments Sex Unknown Tobacco Use Start: Unknown Patient was a cigarette states she is smoker, current status quitting is unknown ETOH Use 07/26/2018 Denies alcohol use Recreational Drug Use Former Drug User Tobacco Use Start: Unknown Patient is a current 1/2 pack daily smoker, smokes every day Smoking Status Reviewed: 03/23/19 Patient is a current 1/2 pack daily smoker, smokes every day Exercise Type/Frequency Exercises rarely Allergies, Adverse Reactions, Alerts Active Allergies Reaction Severity Comments Date Latex Urticaria 05/10/2017 Sulfa Antibiotics hives 05/10/2017 Penicillins Urticaria 05/10/2017 Nalbuphine 05/10/2017 Perphenazine 05/10/2017 Ciprofloxacin dizziness 05/10/2017 Tramadol altered mental status 05/10/2017 [place] 05/10/2017 Lurasidone Moderate 05/08/2018 Metformin Diarrhea 05/22/2018 Medications Active Medications SIG Qnty Indications Ordering Date Provider Clotrimazole apply to affected 56gm B35.6 Rosa Schroeder, 03/23/2019 Anti-Fungal area twice a day 1% Cream Chantix Starting Month follow directions 1pack F17.210 Rosa Schroeder, 2018 Narinder on the package 0.5mg X 11 & 1 mg X 42 Tablets Hyoscyamine Sulfate one by mouth three 90tabs R10.84 Rosa Schroeder, 2018 times a day as 0.125mg Tablets needed for abdominal pain Novolog Penfill 26 units subcu 3 45ml Other Ordering 02/05/2019 times a day with Provider 100Unit/ML Solution meals Cartridge Onetouch Delica test up to three 1units Moreno Sandoval, 01/11/2019 Lancing Dev times a day and [facility] dx:e11.9 diabetes Nicotine Transdermal apply 1 patch 42units Robyn Cesar, 01/11/2019 System Step 1 transdermal daily 21mg/24HR remove at night. Patches 24HR After initial course call for step down dosing Percocet 1-2 every 6 hrs as 60tabs Rosa Schroeder, 12/22/2018 5-325mg Tablets needed for severe MD pain Duloxetine HCL 1 by mouth every 30caps Other Ordering 12/20/2018 30mg Caps day, total 110mg Provider DR Parikh daily Metoclopramide HCL one tablet every 6 90tabs Other Ordering 12/20/2018 10mg hours, 30 minutes Provider Tablets before meals and one at bedtime as Needed For Nausea Quad Cane 1 cane for 1units M51.26 Rosa Schroeder, 11/17/2018 [facility] Cyclobenzaprine HCL take 1 tablet by 60tabs Rosa Schroeder, 10/27/2018 10mg mouth two times MD Tablets daily as needed Levothyroxine Sodium 1 tablet by mouth 42tabs E03.9 Mayer Coch, 2018 every day, except MD 200mcg Tablets 2 tablets on tuesday (total 8 tablets/week) Polyethylene Glycol 17g twice daily by 1020gm Rosadevin Schroeder, 10/19/2018 3350 mouth, as needed 3350NF Powder for constipation. hold if any diarrhea Walker Swivel Wheels/5 folding walker, 1units M51.26 Lawrence Simental 2018 Adjustment Holes/5" use as directed Janiya 5" Adelina,[facility] Anbesol Maximum apply to gingiva 27gm Rosa Schroeder, 09/21/2018 Strength 3x/day as needed 20% Gel for pain Creon one by mouth three 90caps R19.7 Rosadevin Schroeder, 09/06/2018 3000-9500Unit Caps times a day right MD DR Parikh before meals Onetouch Delica test 4 times a day 150units E11.9 Mayer Coch, 09/04/2018 Lancets Extra Fine 33G MD Nuñez Arnuity Ellipta 1 puff inhaled 30units Rosa Schroeder, 07/26/2018 every day 100mcg/Act Aerosol Depend Adjustable use four times a 120units Rosa Schroeder, 07/03/2018 Underwear L/XL day MD Nuñez Flonase Allergy Relief 2 sprays in each 9.900ml Rosa Schroeder, 06/23/2018 nostril twice a 50mcg/Act Suspension day Fiasp Flextouch 26 units tid-ac. 30ml E11.65 Mayer Coch, 05/19/2018 mdd 90 MD 100Unit/ML Solution Pen-Inject Basaglar Kwikpen 70 units once 30ml Mayer Coch, 05/19/2018 daily in the MD 100Unit/ML Solution morning Pen-Inject Nicotrol 1 cartridges every 168units Rosa Schroeder, 05/18/2018 10mg Inhaler 2 hours as needed Nystatin apply twice daily 90gm Robyn Mccartyaz, 05/15/2018 [id number]/GM until rash clears Powder Ventolin HFA 2 by mouth every 4 8gm Rosa Schroeder, 05/15/2018 108(90Base) hours as needed mcg/Act Aerosol Onetouch Ultra Blue test up to 4 times 150units Z79.4 Moreno Sandoval, 2017 daily Strips E11.65 E11.9 BD Pen Needle/Suzanna/Ultra use 4 times every 150units E11.9 Moreno Sandoval MD 08/24/2017 Fine/32G X 4mm day 32G X 4 mm Misc Depend Pant Extra Large use 4 x a day or 120units Rosa Schroeder MD 2016 Misc as needed Ibu take one tablet by 90tabs Rosa Schroeder MD 600mg Tablets mouth t.i.d as needed pain Hydroxyzine HCL 1 tablets by mouth Unknown 25mg Tablets tid as needed for anxiety Ondansetron dissolve one 30tabs Rosa Schroeder MD 4mg Tablets Dispers tablet orally every 8 hours as needed for nausea. Nicotine Gum 2 MG 1piece q 2 hours Unknown prn Loperamide HCL take one capsule 30caps Rosa Schroeder MD 2mg Capsules every four hours as needed Olanzapine 1 tablet at Unknown 10mg Tablets bedtime Naproxen 1 tablet with food Unknown 500mg Tablets by mouth twice a day Omeprazole 1 by mouth every Unknown 40mg Capsules DR day Pyridium take 1 tab bid prn Unknown 100mg Tablets - Mucinex 1 by mouth twice a Unknown 600mg Tablets ER 12HR day as needed Olanzapine one tab by mouth 60tabs Other Ordering 5mg Tablets in am Provider Trazodone HCL 3 tab at bedtime 90tabs Rosa Schroeder MD 100mg Tablets Onetouch Ultra Mini check bs up to [...] 90caps Rosa Schroeder MD 10mg Capsules allergies as needed Duloxetine HCL 1 by mouth every 90caps Rosa Schroeder MD 20mg Caps DR day with 60mg tab Part Duloxetine HCL 1 by mouth every 90caps Rosa Schroeder MD 60mg Caps DR day with 20mg tab Part Maalox Max 30 milliliters by Unknown [phone]/5ML mouth q4hr as Suspension needed indigestion Cetirizine HCL 1 by mouth every Unknown 10mg Tablets day History Medications Macrobid 1 by mouth twice 14caps N39.0 Rosa Schroeder MD 02/07/2019 - 100mg Capsules a day x 7 days 03/16/2019 (Complete) Lantus 70 Units subcu at 10ml Other Ordering 02/05/2019 - 100Unit/ML Solution bedtime Provider 03/21/2019 Fluconazole 1 tab by mouth x 2tabs B37.3 Rosa Schroeder MD 01/30/2019 - 150mg Tablets , november repeat 03/22/2019 after 2 days if not better Cyclobenzaprine HCL take one tablet 60tabs Rosa Schroeder MD 10/19/2018 - 10mg by mouth three 10/27/2018 Tablets times a day as needed Gabapentin 2 capsules at hs Other Ordering 10/02/2018 - 400mg Capsules Provider 12/20/2018 Fluconazole 1 tab by mouth x 2tabs B37.3 Rosa Schroeder MD 10/02/2018 - 150mg Tablets , november repeat 01/30/2019 after 2 days if not better Clindamycin HCL 1 by mouth three 21caps Other Ordering 09/26/2018 - 300mg times a day for Provider 10/05/2018 Capsules 10 days Medications Administered in Office Medication SIG Qnty Indications Ordering Provider Date Depomedrol 40MG Naveed Cuadra MD 10/11/2017 Injection Immunizations CPT Code Status Date Vaccine Lot # [id number] Given 05/01/2018 Influenza Virus Vaccine, Quadrivalent, Split, Preservative Free Vital Signs Date Vital Result Comment 03/23/2019 1:44pm Height 67 inches 5'7" Weight 277.00 lb Heart Rate 80 /min BP Systolic Sitting 108 mmHg Lue lg cuff BP Diastolic Sitting 67 mmHg Lue lg cuff O2 % BldC Oximetry 96 % BMI (Body Mass Index) 43.4 kg/m2 02/28/2019 1:55pm Height 67 inches 5'7" Weight 269.00 lb Heart Rate 80 /min BP Systolic Sitting 126 mmHg Lue BP Diastolic Sitting 78 mmHg Lue Respiratory Rate 18 /min Pain Level 8 BMI (Body Mass Index) 42.1 kg/m2 Results Test Date Facility Test Result H/L Range Note Urine Culture And 02/16/2019 [facility] Urine Culture SEE RESULT [address] [place] [address] [phone] Ua Routine 02/16/2019 [facility] Ua Specific 1.030 Moran Ua PH 5 Ua Color dark yellow Ua Appera cloudy Ua WBC + Ua Protein trace Ua Glucose 50 Ua Ketones sm + Ua Bilirubin negative Ua Urobilinogen normal Ua Nitrite negative Ua Occult Blood about 250 Laboratory test 02/09/2019 [facility] Point of 167 mg/dL High 70-100 [address] [place] [address] [phone] Laboratory test 02/09/2019 [facility] Point of 244 mg/dL High 70-100 [address] [place] [address] [phone] Laboratory test 02/09/2019 [facility] Point of 299 mg/dL High 70-100 [address] [place] [address] [phone] Venous Blood 02/09/2019 [facility] Venous Blood 7.40 Normal 7.32-7.[address] [place] [address] [phone] Venous Pco2 43 mmHg Normal 41-51 Venous Po2 44.0 mmHg Normal 35-45 Venous O2 Saturation 84.4 % High 70-80 Venous Blood Base Excess 1.5 mmol/L Normal 0.0-4.0 5 Venous Bicarbonate Hco3 25.5 mmol/L Normal 24-28 Urinalysis Profile 02/09/2019 [facility] Urine Color Sharlene [address] [place] [address] [phone] Urine Appearance Cloudy Urine Specific Moran 1.016 Normal 1.010-1.030 Urine pH 6.0 Normal 5-9 Urine Urobilinogen Positive Abnormal Negative Urine Ketones Negative Negative Urine Protein Negative Negative Urine Leukocytes Trace Abnormal Negative Urine Blood Negative Negative * * Abnormal Negative 6 Urine Nitrite Positive Abnormal Negative Urine Bilirubin Negative Negative Urine Glucose 3+(>=500 mg/dL) Abnormal Negative Urine White Blood Cell Trace(0-5/hpf) Absent Urine Red Blood Cell Trace(0-2/hpf) Absent Urine Bacteria 1+ Abnormal Absent Urine Squamous Epithelial Cell Present Abnormal Absent Comp Metabolic 02/09/2019 [facility] Sodium 136 mmol/L Normal 135-145 Panel [address] [place] [address] [phone] Potassium 5.0 mmol/L Normal 3.5-5.0 Chloride 102 mmol/L Normal 101-111 Co2 Carbon Dioxide 25 mmol/L Normal 22-32 Anion Gap 9 mmol/L Normal 2-11 Glucose 426 mg/dL High 70-100 Blood Urea Nitrogen 10 mg/dL Normal 6-24 Creatinine 1.03 mg/dL High 0.51-0.95 BUN/Creatinine Ratio 9.7 Normal 8-20 Calcium 9.2 mg/dL Normal 8.6-10.3 Total Protein 7.2 g/dL Normal 6.4-8.9 Albumin 3.7 g/dL Normal 3.2-5.2 Globulin 3.5 g/dL Normal 2-4 Albumin/Globulin Ratio 1.1 Normal 1-3 Total Bilirubin 0.20 mg/dL Normal 0.2-1.0 Alkaline Phosphatase 157 U/L High 34-104 Alt 43 U/L Normal 7-52 Ast 68 U/L High 13-39 Egfr Non- 56.3 >60 Egfr 68.1 >60 7 Laboratory test 02/09/2019 [facility] C Reactive 3.79 mg/L Normal <8.[address] [place] [address] [phone] CBC Auto Diff 02/09/2019 [facility] White Blood 11.8 High 3.5- 10.[address] Count 10^3/[place] [address] [phone] Red Blood Count 4.59 10^6/uL Normal 3.70-4.87 Hemoglobin 13.8 g/dL Normal 12.0-16.0 Hematocrit 42 % Normal 35-47 Mean Corpuscular Volume 91 fL Normal 80-97 Mean Corpuscular Hemoglobin 30 pg Normal 27-31 Mean Corpuscular HGB Conc 33 g/dL Normal 31-36 Red Cell Distribution Width 16 % High 10-15 Platelet Count 229 10^3/uL Normal 150-450 Mean Platelet Volume 9.4 fL Normal 7.4-10.4 Abs Neutrophils 7.6 10^3/uL Normal 1.5-7.7 Abs Lymphocytes 3.4 10^3/uL Normal 1.0-4.8 Abs Monocytes 0.6 10^3/uL Normal 0-0.8 Abs Eosinophils 0.1 10^3/uL Normal 0-0.6 Abs Basophils 0.1 10^3/uL Normal 0-0.2 Abs Nucleated RBC 0.0 10^3/uL Granulocyte % 64.6 % Lymphocyte % 28.8 % Monocyte % 4.8 % Eosinophil % 1.2 % Basophil % 0.6 % Nucleated Red Blood Cells % 0.0 Laboratory test 02/09/2019 [facility] Lactic Acid 2.9 Critical 0.5-2.0 [address] mmol/L high [place], [place] [id number] [phone] Urine Culture 02/09/2019 [facility] Urine SEE [address] [place] [address] BELOW [phone] Laboratory test 02/09/2019 [facility] Point of > 444 Critical 70-100 [address] Care Glucose mg/[place] [address] [phone] Laboratory test 02/06/2019 [facility] Hemoglobin 9.0 % High 4.0-5.6 11, finding [address] A1c (Glyco 12 [place] [address] HGB) [phone] Laboratory test 02/03/2019 [facility] Lactic Acid 0.8 Normal 0.5-2.0 [address] mmol/L [place], [place] [address] [phone] Comp Metabolic 02/03/2019 [facility] Sodium 140 Normal 135- [address] mmol/[place] [address] [phone] Potassium 4.5 mmol/L Normal 3.5-5.0 Chloride 108 mmol/L Normal 101-111 Co2 Carbon Dioxide 26 mmol/L Normal 22-32 Anion Gap 6 mmol/L Normal 2-11 Glucose 146 mg/dL High 70-100 Blood Urea Nitrogen 11 mg/dL Normal 6-24 Creatinine 0.90 mg/dL Normal 0.51-0.95 BUN/Creatinine Ratio 12.2 Normal 8-20 Calcium 8.9 mg/dL Normal 8.6-10.3 Total Protein 6.2 g/dL Low 6.4-8.9 Albumin 3.5 g/dL Normal 3.2-5.2 Globulin 2.7 g/dL Normal 2-4 Albumin/Globulin Ratio 1.3 Normal 1-3 Total Bilirubin 0.20 mg/dL Normal 0.2-1.0 Alkaline Phosphatase 148 U/L High 34-104 Alt 48 U/L Normal 7-52 Ast 67 U/L High 13-39 Egfr Non- 65.8 >60 Egfr 79.6 >60 14 Laboratory test finding 02/03/2019 [facility] Amylase 28 U/L Low 29-[address] [place] [address] [phone] Lipase < 10 U/L Low 11.0-82.0 C Reactive Protein 3.64 mg/L Normal <8.01 Urinalysis Profile 02/03/2019 [facility] Urine Color Yellow [address] [place] [address] [phone] Urine Appearance Cloudy Urine Specific Moran 1.009 Low 1.010-1.030 Urine pH 5.0 Normal 5-9 Urine Urobilinogen Negative Negative Urine Ketones Negative Negative Urine Protein Negative Negative Urine Leukocytes 1+ Abnormal Negative Urine Blood Negative Negative Urine Nitrite Negative Negative Urine Bilirubin Negative Negative Urine Glucose 2+(150 mg/dL) Abnormal Negative Urine White Blood Cell Trace(0-5/hpf) Absent Urine Red Blood Cell Trace(0-2/hpf) Absent Urine Bacteria Absent Absent Urine Squamous Epithelial Cell Present Abnormal Absent Urine Culture And 02/03/2019 [facility] Urine SEE RESULT [address] [place] [address] [phone] CBC Auto Diff 02/03/2019 [facility] White Blood 9.6 10^3/uL Normal 3.5- [address] Count 10.8 [place] [address] [phone] Red Blood Count 4.03 10^6/uL Normal 3.70-4.87 Hemoglobin 12.2 g/dL Normal 12.0-16.0 Hematocrit 37 % Normal 35-47 Mean Corpuscular Volume 91 fL Normal 80-97 Mean Corpuscular Hemoglobin 30 pg Normal 27-31 Mean Corpuscular HGB Conc 33 g/dL Normal 31-36 Red Cell Distribution Width 15 % Normal 10-15 Platelet Count 168 10^3/uL Normal 150-450 Mean Platelet Volume 9.4 fL Normal 7.4-10.4 Abs Neutrophils 6.5 10^3/uL Normal 1.5-7.7 Abs Lymphocytes 2.5 10^3/uL Normal 1.0-4.8 Abs Monocytes 0.4 10^3/uL Normal 0-0.8 Abs Eosinophils 0.1 10^3/uL Normal 0-0.6 Abs Basophils 0.1 10^3/uL Normal 0-0.2 Abs Nucleated RBC 0.0 10^3/uL Granulocyte % 67.1 % Lymphocyte % 26.3 % Monocyte % 4.5 % Eosinophil % 1.5 % Basophil % 0.6 % Nucleated Red Blood Cells % 0.0 Laboratory test 02/01/2019 [facility] Blood Culture SEE RESULT [address] [place] [address] [phone] Urine Culture And 02/01/2019 [facility] Urine Culture SEE RESULT [address] [place] [address] [phone] Laboratory test 02/01/2019 [facility] Erythrocyte Sed 33 mm/Hr High 0-[address] [place] [address] [phone] CBC Auto Diff 02/01/2019 [facility] White Blood 16.2 High 3.5 - [address] Count 10^3/uL 10.8 [place] [address] [phone] Red Blood Count 4.03 10^6/uL Normal 3.70-4.87 Hemoglobin 12.2 g/dL Normal 12.0-16.0 Hematocrit 36 % Normal 35-47 Mean Corpuscular Volume 90 fL Normal 80-97 Mean Corpuscular Hemoglobin 30 pg Normal 27-31 Mean Corpuscular HGB Conc 33 g/dL Normal 31-36 Red Cell Distribution Width 15 % Normal 10-15 Platelet Count 224 10^3/uL Normal 150-450 Mean Platelet Volume 9.2 fL Normal 7.4-10.4 Abs Neutrophils 11.5 10^3/uL High 1.5-7.7 Abs Lymphocytes 3.7 10^3/uL Normal 1.0-4.8 Abs Monocytes 0.8 10^3/uL Normal 0-0.8 Abs Eosinophils 0.2 10^3/uL Normal 0-0.6 Abs Basophils 0.1 10^3/uL Normal 0-0.2 Abs Nucleated RBC 0.0 10^3/uL Granulocyte % 71.3 % Lymphocyte % 22.7 % Monocyte % 4.6 % Eosinophil % 1.0 % Basophil % 0.4 % Nucleated Red Blood Cells % 0.0 Urinalysis Profile 02/01/2019 [facility] Urine Color Yellow [address] [place] [address] [phone] Urine Appearance Clear Urine Specific Moran 1.005 Low 1.010-1.030 Urine pH 6.0 Normal 5-9 Urine Urobilinogen Negative Negative Urine Ketones Negative Negative Urine Protein Negative Negative Urine Leukocytes Trace Abnormal Negative Urine Blood Negative Negative Urine Nitrite Negative Negative Urine Bilirubin Negative Negative Urine Glucose Negative Negative Urine White Blood Cell Trace(0-5/hpf) Absent Urine Red Blood Cell Absent Absent Urine Bacteria Absent Absent Laboratory test 02/01/2019 [facility] Creatine 137 U/L Normal 10-223 finding [address] [facility] Kinase(CK) [place] [address] [phone] C Reactive Protein 5.48 mg/L Normal <8.01 Troponin-I (TnI) 0.01 ng/mL <0.04 18 B-Type Natriuretic Peptide BNP 14 pg/mL <=100 Comp Metabolic 02/01/2019 [facility] Sodium 139 mmol/L Normal 135-145 Panel [address] [place] [address] [phone] Potassium 3.4 mmol/L Low 3.5-5.0 Chloride 110 mmol/L Normal 101-111 Co2 Carbon Dioxide 24 mmol/L Normal 22-32 Anion Gap 5 mmol/L Normal 2-11 Glucose 54 mg/dL Low 70-100 Blood Urea Nitrogen 13 mg/dL Normal 6-24 Creatinine 0.78 mg/dL Normal 0.51-0.95 BUN/Creatinine Ratio 16.7 Normal 8-20 Calcium 8.3 mg/dL Low 8.6-10.3 Total Protein 5.8 g/dL Low 6.4-8.9 Albumin 3.3 g/dL Normal 3.2-5.2 Globulin 2.5 g/dL Normal 2-4 Albumin/Globulin Ratio 1.3 Normal 1-3 Total Bilirubin 0.20 mg/dL Normal 0.2-1.0 Alkaline Phosphatase 111 U/L High 34-104 Alt 25 U/L Normal 7-52 Ast 23 U/L Normal 13-39 Egfr Non- 77.6 >60 Egfr 93.8 >60 19 Laboratory test 02/01/2019 [facility] Partial 27.7 Normal 26.0 -38.[address] [place] [address] Time PTT [phone] Fibrinogen 348.6 mg/dL Normal 110.8-404.3 Lactic Acid 0.8 mmol/L Normal 0.5-2.0 20 Inr/Protime 02/01/2019 [facility] Inr 0.95 Normal 0.82-1.[address] [place] [address] [phone] Laboratory test 02/01/2019 [facility] Point of 232 mg/dL High 70-100 [address] [place] [address] Glucose [phone] Laboratory test 02/01/2019 [facility] Point of 54 mg/dL Low 70 -100 [address] [place] [address] Glucose [phone] Urine Culture 01/30/2019 [facility] Urine SEE 24, And [address] Culture RESULT 25 [place] [address] BELOW [phone] Ua Routine 01/30/2019 [facility] Ua Specific 1.010 Moran Ua PH 5 Ua Color yellow Ua Appera cloud Ua WBC L Ua Protein - Ua Glucose L Ua Ketones neg Ua Bilirubin neg Ua Urobilinogen neg Ua Nitrite - Ua Occult Blood 50 Urine Culture And 01/28/2019 [facility] Urine Culture SEE RESULT [address] [place] [address] [phone] Urinalysis Profile 01/28/2019 [facility] Urine Color Yellow [address] [place] [address] [phone] Urine Appearance Turbid Urine Specific Moran 1.016 Normal 1.010-1.030 Urine pH 6.0 Normal 5-9 Urine Urobilinogen Negative Negative Urine Ketones Negative Negative Urine Protein Negative Negative Urine Leukocytes 3+ Abnormal Negative Urine Blood 2+ Abnormal Negative Urine Nitrite Negative Negative Urine Bilirubin Negative Negative Urine Glucose 3+(>=500 mg/dL) Abnormal Negative Urine White Blood Cell 3+(>20/hpf) Abnormal Absent Urine Red Blood Cell 3+(>10/hpf) Abnormal Absent Urine Bacteria 2+ Abnormal Absent Urine Squamous Epithelial Cell Present Abnormal Absent Urine Transitional Epithelial Present Abnormal Absent Urine Yeast Present Abnormal Absent Laboratory test 01/28/2019 [facility] Lipase 10 U/L Low 11.0- 82.0 finding [address] [place] [address] [phone] C Reactive Protein 5.53 mg/L Normal <8.01 Troponin-I (TnI) 0.00 ng/mL <0.04 27 HCG 3.01 mIU/mL 28 Lactic Acid 2.0 mmol/L Normal 0.5-2.0 29 Comp Metabolic 01/28/2019 [facility] Sodium 137 mmol/L Normal 135-[address] [place] [address] [phone] Potassium 5.0 mmol/L Normal 3.5-5.0 Chloride 101 mmol/L Normal 101-111 Co2 Carbon Dioxide 29 mmol/L Normal 22-32 Anion Gap 7 mmol/L Normal 2-11 Glucose 356 mg/dL High 70-100 Blood Urea Nitrogen 18 mg/dL Normal 6-24 Creatinine 0.96 mg/dL High 0.51-0.95 BUN/Creatinine Ratio 18.8 Normal 8-20 Calcium 9.8 mg/dL Normal 8.6-10.3 Total Protein 7.3 g/dL Normal 6.4-8.9 Albumin 3.9 g/dL Normal 3.2-5.2 Globulin 3.4 g/dL Normal 2-4 Albumin/Globulin Ratio 1.1 Normal 1-3 Total Bilirubin 0.20 mg/dL Normal 0.2-1.0 Alkaline Phosphatase 167 U/L High 34-104 Alt 60 U/L High 7-52 Ast 56 U/L High 13-39 Egfr Non- 61.0 >60 Egfr 73.8 >60 30 Laboratory 01/28/2019 [facility] Partial 28.8 Normal 26.0- 38.[address] [place] [address] Time PTT [phone] Inr/Protime 01/28/2019 [facility] Inr 0.92 Normal 0.82-1.[address] [place] [address] [phone] CBC Auto Diff 01/28/2019 [facility] White Blood 10.8 Normal 3.5-10.[address] Count 10^3/[place] [address] [phone] Red Blood Count 4.72 10^6/uL Normal 3.70-4.87 Hemoglobin 14.3 g/dL Normal 12.0-16.0 Hematocrit 43 % Normal 35-47 Mean Corpuscular Volume 91 fL Normal 80-97 Mean Corpuscular Hemoglobin 30 pg Normal 27-31 Mean Corpuscular HGB Conc 34 g/dL Normal 31-36 Red Cell Distribution Width 15 % Normal 10-15 Platelet Count 228 10^3/uL Normal 150-450 Mean Platelet Volume 9.3 fL Normal 7.4-10.4 Abs Neutrophils 7.2 10^3/uL Normal 1.5-7.7 Abs Lymphocytes 2.8 10^3/uL Normal 1.0-4.8 Abs Monocytes 0.6 10^3/uL Normal 0-0.8 Abs Eosinophils 0.2 10^3/uL Normal 0-0.6 Abs Basophils 0.1 10^3/uL Normal 0-0.2 Abs Nucleated RBC 0.0 10^3/uL Granulocyte % 66.3 % Lymphocyte % 25.6 % Monocyte % 5.7 % Eosinophil % 1.5 % Basophil % 0.9 % Nucleated Red Blood Cells % 0.0 Laboratory test 01/23/2019 [facility] Lactic Acid 1.8 mmol/L Normal 0.5-2.[address] [place] [address] [phone] Comp Metabolic 01/23/2019 [facility] Sodium 139 mmol/L Normal 135-[address] [place] [address] [phone] Potassium 4.4 mmol/L Normal 3.5-5.0 Chloride 105 mmol/L Normal 101-111 Co2 Carbon Dioxide 26 mmol/L Normal 22-32 Anion Gap 8 mmol/L Normal 2-11 Glucose 175 mg/dL High 70-100 Blood Urea Nitrogen 20 mg/dL Normal 6-24 Creatinine 0.98 mg/dL High 0.51-0.95 BUN/Creatinine Ratio 20.4 High 8-20 Calcium 9.6 mg/dL Normal 8.6-10.3 Total Protein 6.7 g/dL Normal 6.4-8.9 Albumin 3.6 g/dL Normal 3.2-5.2 Globulin 3.1 g/dL Normal 2-4 Albumin/Globulin Ratio 1.2 Normal 1-3 Total Bilirubin 0.20 mg/dL Normal 0.2-1.0 Alkaline Phosphatase 135 U/L High 34-104 Alt 44 U/L Normal 7-52 Ast 43 U/L High 13-39 Egfr Non- 59.6 >60 Egfr 72.1 >60 33 Laboratory test 01/23/2019 [facility] Lipase < 10 U/L Low 11.0 -82.[address] [place] [address] [phone] C Reactive Protein 2.94 mg/L Normal <8.01 CBC Auto 01/23/2019 [facility] White Blood 14.3 10^3/uL High 3.5-10.[address] [place] [address] [phone] Red Blood Count 4.59 10^6/uL Normal 3.70-4.87 Hemoglobin 13.6 g/dL Normal 12.0-16.0 Hematocrit 42 % Normal 35-47 Mean Corpuscular Volume 91 fL Normal 80-97 Mean Corpuscular Hemoglobin 30 pg Normal 27-31 Mean Corpuscular HGB Conc 33 g/dL Normal 31-36 Red Cell Distribution Width 15 % Normal 10-15 Platelet Count 259 10^3/uL Normal 150-450 Mean Platelet Volume 8.9 fL Normal 7.4-10.4 Abs Neutrophils 9.4 10^3/uL High 1.5-7.7 Abs Lymphocytes 3.9 10^3/uL Normal 1.0-4.8 Abs Monocytes 0.7 10^3/uL Normal 0-0.8 Abs Eosinophils 0.2 10^3/uL Normal 0-0.6 Abs Basophils 0.1 10^3/uL Normal 0-0.2 Abs Nucleated RBC 0.0 10^3/uL Granulocyte % 65.9 % Lymphocyte % 27.3 % Monocyte % 4.9 % Eosinophil % 1.4 % Basophil % 0.5 % Nucleated Red Blood Cells % 0.0 Urinalysis Profile 01/23/2019 [facility] Urine Color Yellow [address] [place], [place] [id number] [phone] Urine Appearance Turbid Urine Specific Moran 1.012 Normal 1.010-1.030 Urine pH 6.0 Normal 5-9 Urine Urobilinogen Negative Negative Urine Ketones Negative Negative Urine Protein 1+(30 mg/dL) Abnormal Negative Urine Leukocytes 3+ Abnormal Negative Urine Blood 1+ Abnormal Negative Urine Nitrite Negative Negative Urine Bilirubin Negative Negative Urine Glucose Negative Negative Urine White Blood Cell 3+(>20/hpf) Abnormal Absent Urine Red Blood Cell 3+(>10/hpf) Abnormal Absent Urine Bacteria 3+ Abnormal Absent Urine Squamous Epithelial Cell Present Abnormal Absent Urine Culture And 01/23/2019 [facility] Urine Culture SEE RESULT [address] [place] [place], [place] [id number] [phone] Laboratory test 01/19/2019 [facility] Point of Care 64 mg/dL Low 70-1 [address] Glucose 00 [place], [place] [id number] [phone] Laboratory test 01/19/2019 [facility] Surgical SEE RESULT [address] [place] [address] [facility] [phone] Laboratory test 01/19/2019 [facility] Clotest SEE RESULT [address] [place] [address] [phone] Laboratory test 01/19/2019 [facility] Point of Care 83 mg/dL Normal 70-1 [address] Glucose 00 [place] [address] [phone] Laboratory test 01/19/2019 [facility] Point of Care 72 mg/dL Normal 70-1 [address] Glucose 00 [place] [address] [phone] Laboratory test 01/19/2019 [facility] Point of Care 59 mg/dL Low 70-1 [address] Glucose 00 [place] [address] [phone] Laboratory test 01/19/2019 [facility] Point of Care 193 mg/dL High 70-1 [address] Glucose 00 [place] [address] [phone] Laboratory test 01/19/2019 [facility] Point of Care 58 mg/dL Low 70-[address] Glucose 00 [place] [address] [phone] CBC Auto Diff 01/16/2019 [facility] White Blood 10.3 Normal 3.5- [address] Count 10^3/uL 10.8 [place] [address] [phone] Red Blood Count 4.51 10^6/uL Normal 3.70-4.87 Hemoglobin 13.5 g/dL Normal 12.0-16.0 Hematocrit 41 % Normal 35-47 Mean Corpuscular Volume 91 fL Normal 80-97 Mean Corpuscular Hemoglobin 30 pg Normal 27-31 Mean Corpuscular HGB Conc 33 g/dL Normal 31-36 Red Cell Distribution Width 15 % Normal 10-15 Platelet Count 225 10^3/uL Normal 150-450 Mean Platelet Volume 8.8 fL Normal 7.4-10.4 Abs Neutrophils 6.5 10^3/uL Normal 1.5-7.7 Abs Lymphocytes 3.1 10^3/uL Normal 1.0-4.8 Abs Monocytes 0.5 10^3/uL Normal 0-0.8 Abs Eosinophils 0.2 10^3/uL Normal 0-0.6 Abs Basophils 0.1 10^3/uL Normal 0-0.2 Abs Nucleated RBC 0.0 10^3/uL Granulocyte % 62.6 % Lymphocyte % 29.7 % Monocyte % 5.3 % Eosinophil % 1.9 % Basophil % 0.5 % Nucleated Red Blood Cells % 0.0 Comp Metabolic 01/16/2019 [facility] Sodium 138 mmol/L Normal 135-[address] [place] [address] [phone] Potassium 4.5 mmol/L Normal 3.5-5.0 Chloride 104 mmol/L Normal 101-111 Co2 Carbon Dioxide 29 mmol/L Normal 22-32 Anion Gap 5 mmol/L Normal 2-11 Glucose 144 mg/dL High 70-100 Blood Urea Nitrogen 15 mg/dL Normal 6-24 Creatinine 0.79 mg/dL Normal 0.51-0.95 BUN/Creatinine Ratio 19.0 Normal 8-20 Calcium 9.4 mg/dL Normal 8.6-10.3 Total Protein 6.9 g/dL Normal 6.4-8.9 Albumin 3.6 g/dL Normal 3.2-5.2 Globulin 3.3 g/dL Normal 2-4 Albumin/Globulin Ratio 1.1 Normal 1-3 Total Bilirubin 0.20 mg/dL Normal 0.2-1.0 Alkaline Phosphatase 134 U/L High 34-104 Alt 31 U/L Normal 7-52 Ast 31 U/L Normal 13-39 Egfr Non- 76.4 >60 Egfr 92.5 >60 43 Laboratory test 01/16/2019 [facility] Amylase 32 U/L Normal 29 -103 finding 101 [place] [address] [phone] Lipase < 10 U/L Low 11.0-82.0 C Reactive Protein 3.40 mg/L Normal <8.01 Laboratory test 01/03/2019 [facility] Alcohol < 10 mg/dL Normal <10 finding 101 [place] [address] [phone] Salicylate < 2.50 mg/dL <30 TSH (Thyroid Stim Horm) 1.52 mcIU/mL Normal 0.34-5.60 Acetaminophen 226 g/mL Critical high 44 Comp Metabolic 01/03/2019 [facility] Sodium 137 mmol/L Normal 135-145 Panel 101 [place] [address] [phone] Potassium 4.5 mmol/L Normal 3.5-5.0 Chloride 105 mmol/L Normal 101-111 Co2 Carbon Dioxide 24 mmol/L Normal 22-32 Anion Gap 8 mmol/L Normal 2-11 Glucose 499 mg/dL High 70-100 Blood Urea Nitrogen 15 mg/dL Normal 6-24 Creatinine 0.94 mg/dL Normal 0.51-0.95 BUN/Creatinine Ratio 16.0 Normal 8-20 Calcium 9.0 mg/dL Normal 8.6-10.3 Total Protein 6.4 g/dL Normal 6.4-8.9 Albumin 3.5 g/dL Normal 3.2-5.2 Globulin 2.9 g/dL Normal 2-4 Albumin/Globulin Ratio 1.2 Normal 1-3 Total Bilirubin 0.20 mg/dL Normal 0.2-1.0 Alkaline Phosphatase 125 U/L High 34-104 Alt 24 U/L Normal 7-52 Ast 32 U/L Normal 13-39 Egfr Non- 62.5 >60 Egfr 75.7 >60 45 CBC Auto 01/03/2019 [facility] White Blood 7.6 10^3/uL Normal 3.5-10.[address] [place] [address] [phone] Red Blood Count 4.20 10^6/uL Normal 3.70-4.87 Hemoglobin 12.6 g/dL Normal 12.0-16.0 Hematocrit 39 % Normal 35-47 Mean Corpuscular Volume 93 fL Normal 80-97 Mean Corpuscular Hemoglobin 30 pg Normal 27-31 Mean Corpuscular HGB Conc 32 g/dL Normal 31-36 Red Cell Distribution Width 16 % High 10.5-15 Platelet Count 220 10^3/uL Normal 150-450 Mean Platelet Volume 9.5 fL Normal 7.4-10.4 Abs Neutrophils 4.9 10^3/uL Normal 1.5-7.7 Abs Lymphocytes 2.1 10^3/uL Normal 1.0-4.8 Abs Monocytes 0.5 10^3/uL Normal 0-0.8 Abs Eosinophils 0.1 10^3/uL Normal 0-0.6 Abs Basophils 0.0 10^3/uL Normal 0-0.2 Abs Nucleated RBC 0.0 10^3/uL Granulocyte % 63.7 % Lymphocyte % 28.2 % Monocyte % 6.4 % Eosinophil % 1.1 % Basophil % 0.6 % Nucleated Red Blood Cells % 0.0 Laboratory 01/03/2019 [facility] Acetaminophen 142 Critical 46 test finding [address] g/[place] [address] [phone] Laboratory 01/03/2019 [facility] Point of Care > 444 Critical 70- 47 test finding [address] Glucose mg/dL high 100 [place] [address] [phone] Laboratory 01/03/2019 [facility] Point of Care 413 mg/dL Critical 70- 48 test finding [address] Glucose high 100 [place] [address] [phone] Basic 01/03/2019 [facility] Sodium 138 Normal [address] mmol/L -14 [place] [address] [phone] Potassium 4.4 mmol/L Normal 3.5-5.0 Chloride 109 mmol/L Normal 101-111 Co2 Carbon Dioxide 22 mmol/L Normal 22-32 Anion Gap 7 mmol/L Normal 2-11 Glucose 337 mg/dL High 70-100 Blood Urea Nitrogen 14 mg/dL Normal 6-24 Creatinine 0.87 mg/dL Normal 0.51-0.95 BUN/Creatinine Ratio 16.1 Normal 8-20 Calcium 8.8 mg/dL Normal 8.6-10.3 Egfr Non- 68.4 >60 Egfr 82.7 >60 49 Laboratory test 01/03/2019 [facility] Point of Care 263 mg/dL High 70-100 [address] [place] [address] [phone] Urine Culture And 01/02/2019 [facility] Urine Culture SEE [address] [place] [address] BELOW [phone] Laboratory test 01/02/2019 [facility] Acetaminophen < 15 [address] g/[place] [address] [phone] Alcohol < 10 mg/dL Normal <10 Salicylate < 2.50 mg/dL <30 TSH (Thyroid Stim Horm) 0.91 mcIU/mL Normal 0.34-5.60 Comp Metabolic 01/02/2019 [facility] Sodium 140 mmol/L Normal 135-[address] [place], [place] [id number] [phone] Potassium 4.4 mmol/L Normal 3.5-5.0 Chloride 108 mmol/L Normal 101-111 Co2 Carbon Dioxide 28 mmol/L Normal 22-32 Anion Gap 4 mmol/L Normal 2-11 Glucose 136 mg/dL High 70-100 Blood Urea Nitrogen 13 mg/dL Normal 6-24 Creatinine 0.74 mg/dL Normal 0.51-0.95 BUN/Creatinine Ratio 17.6 Normal 8-20 Calcium 9.5 mg/dL Normal 8.6-10.3 Total Protein 6.6 g/dL Normal 6.4-8.9 Albumin 3.5 g/dL Normal 3.2-5.2 Globulin 3.1 g/dL Normal 2-4 Albumin/Globulin Ratio 1.1 Normal 1-3 Total Bilirubin 0.20 mg/dL Normal 0.2-1.0 Alkaline Phosphatase 118 U/L High 34-104 Alt 21 U/L Normal 7-52 Ast 27 U/L Normal 13-39 Egfr Non- 82.4 >60 Egfr 99.7 >60 53 CBC Auto 01/02/2019 [facility] White Blood 11.1 10^3/uL High 3.5-10.[address] [place] [address] [phone] Red Blood Count 4.26 10^6/uL Normal 3.70-4.87 Hemoglobin 12.8 g/dL Normal 12.0-16.0 Hematocrit 40 % Normal 35-47 Mean Corpuscular Volume 93 fL Normal 80-97 Mean Corpuscular Hemoglobin 30 pg Normal 27-31 Mean Corpuscular HGB Conc 32 g/dL Normal 31-36 Red Cell Distribution Width 15 % Normal 10.5-15 Platelet Count 202 10^3/uL Normal 150-450 Mean Platelet Volume 9.1 fL Normal 7.4-10.4 Abs Neutrophils 7.8 10^3/uL High 1.5-7.7 Abs Lymphocytes 2.5 10^3/uL Normal 1.0-4.8 Abs Monocytes 0.6 10^3/uL Normal 0-0.8 Abs Eosinophils 0.1 10^3/uL Normal 0-0.6 Abs Basophils 0.0 10^3/uL Normal 0-0.2 Abs Nucleated RBC 0.0 10^3/uL Granulocyte % 70.5 % Lymphocyte % 22.3 % Monocyte % 5.5 % Eosinophil % 1.3 % Basophil % 0.4 % Nucleated Red Blood Cells % 0.0 Urine Drug 01/02/2019 [facility] Urine None Detected None Detect SCR ED & [address] [place] [address] Screen [phone] Urine Barbiturates Screen None Detected None Detect Urine Benzodiazepine Screen None Detected None Detect Urine Cannabinoids Screen None Detected None Detect Urine Cocaine Screen None Detected None Detect Urine Opiates Screen None Detected None Detect Urine Phencyclidine Screen None Detected None Detect 54 Urinalysis Profile 01/02/2019 [facility] Urine Color Yellow [address] [place] [address] [phone] Urine Appearance Turbid Urine Specific Moran 1.011 Normal 1.010-1.030 Urine pH 6.0 Normal 5-9 Urine Urobilinogen Negative Negative Urine Ketones Negative Negative Urine Protein Negative Negative Urine Leukocytes Trace Abnormal Negative Urine Blood Negative Negative Urine Nitrite Negative Negative Urine Bilirubin Negative Negative Urine Glucose Negative Negative Urine White Blood Cell Trace(0-5/hpf) Absent Urine Red Blood Cell 2+(6-10/hpf) Abnormal Absent Urine Bacteria 1+ Abnormal Absent Urine Squamous Epithelial Cell Present Abnormal Absent Laboratory test 12/15/2018 [facility] Point of 204 mg/dL High 70-100 [address] [place] [address] [place] [address] [phone] Laboratory test 12/15/2018 [facility] Point of 112 mg/dL High 70-100 [address] [place] [address] [place] [address] [phone] Laboratory test 12/15/2018 [facility] Lactic Acid 1.3 mmol/L Normal 0.5-2.0 57 finding [address] [place] [address] [phone] Comp Metabolic 12/15/2018 [facility] Sodium 142 mmol/L Normal 135-[address] [place] [address] [phone] Potassium 4.0 mmol/L Normal 3.5-5.0 Chloride 107 mmol/L Normal 101-111 Co2 Carbon Dioxide 30 mmol/L Normal 22-32 Anion Gap 5 mmol/L Normal 2-11 Blood Urea Nitrogen 9 mg/dL Normal 6-24 Creatinine 0.96 mg/dL High 0.51-0.95 BUN/Creatinine Ratio 9.4 Normal 8-20 Calcium 9.7 mg/dL Normal 8.6-10.3 Total Protein 7.1 g/dL Normal 6.4-8.9 Albumin 3.9 g/dL Normal 3.2-5.2 Globulin 3.2 g/dL Normal 2-4 Albumin/Globulin Ratio 1.2 Normal 1-3 Total Bilirubin 0.20 mg/dL Normal 0.2-1.0 Alkaline Phosphatase 119 U/L High 34-104 Alt 32 U/L Normal 7-52 Ast 31 U/L Normal 13-39 Egfr Non- 61.0 >60 Egfr 73.8 >60 58 Glucose 46 mg/dL Critical low 70-100 59 Laboratory test 12/15/2018 [facility] Lipase < 10 U/L Low 11.0 -82.[address] [place] [address] [phone] CBC Auto Diff 12/15/2018 [facility] White Blood 12.0 High 3.5- 10.[address] Count 10^3/[place] [address] [phone] Red Blood Count 4.36 10^6/uL Normal 3.70-4.87 Hemoglobin 13.0 g/dL Normal 12.0-16.0 Hematocrit 39 % Normal 35-47 Mean Corpuscular Volume 90 fL Normal 80-97 Mean Corpuscular Hemoglobin 30 pg Normal 27-31 Mean Corpuscular HGB Conc 33 g/dL Normal 31-36 Red Cell Distribution Width 15 % Normal 10.5-15 Platelet Count 245 10^3/uL Normal 150-450 Mean Platelet Volume 8.8 fL Normal 7.4-10.4 Abs Neutrophils 6.6 10^3/uL Normal 1.5-7.7 Abs Lymphocytes 4.5 10^3/uL Normal 1.0-4.8 Abs Monocytes 0.7 10^3/uL Normal 0-0.8 Abs Eosinophils 0.1 10^3/uL Normal 0-0.6 Abs Basophils 0.1 10^3/uL Normal 0-0.2 Abs Nucleated RBC 0.0 10^3/uL Granulocyte % 54.7 % Lymphocyte % 37.5 % Monocyte % 6.2 % Eosinophil % 1.1 % Basophil % 0.5 % Nucleated Red Blood Cells % 0.1 Laboratory test 12/15/2018 [facility] Troponin-I 0.03 <0.04 [address] (TnI) ng/mL [place], [place] [id number] [phone] Urine Culture And 12/14/2018 [facility] Urine Culture SEE [address] [place] [address] BELOW [phone] Laboratory test 12/14/2018 [facility] Lactic Acid 1.5 Normal 0.5-2.0 [address] mmol/[place] [address] [phone] Urinalysis 12/14/2018 [facility] Urine Color Yellow Profile [address] [place] [address] [phone] Urine Appearance Clear Urine Specific Moran 1.004 Low 1.010-1.030 Urine pH 6.0 Normal 5-9 Urine Urobilinogen Negative Negative Urine Ketones Negative Negative Urine Protein Negative Negative Urine Leukocytes 1+ Abnormal Negative Urine Blood Negative Negative Urine Nitrite Negative Negative Urine Bilirubin Negative Negative Urine Glucose Negative Negative Urine White Blood Cell Trace(0-5/hpf) Absent Urine Red Blood Cell Absent Absent Urine Bacteria 1+ Abnormal Absent Urine Squamous Epithelial Cell Present Abnormal Absent Laboratory test 12/14/2018 [facility] Magnesium 1.6 mg/dL Low 1.9-2.7 finding [address] [place] [address] [phone] Amylase 33 U/L Normal 29-103 Lipase < 10 U/L Low 11.0-82.0 C Reactive Protein 3.27 mg/L Normal <8.01 HCG 2.75 mIU/mL 63 Comp Metabolic 12/14/2018 [facility] Sodium 142 mmol/L Normal 135-145 Panel 101 [place] [address] [phone] Potassium 4.0 mmol/L Normal 3.5-5.0 Chloride 110 mmol/L Normal 101-111 Co2 Carbon Dioxide 24 mmol/L Normal 22-32 Anion Gap 8 mmol/L Normal 2-11 Glucose 52 mg/dL Low 70-100 Blood Urea Nitrogen 9 mg/dL Normal 6-24 Creatinine 0.82 mg/dL Normal 0.51-0.95 BUN/Creatinine Ratio 11.0 Normal 8-20 Calcium 9.4 mg/dL Normal 8.6-10.3 Total Protein 6.9 g/dL Normal 6.4-8.9 Albumin 3.8 g/dL Normal 3.2-5.2 Globulin 3.1 g/dL Normal 2-4 Albumin/Globulin Ratio 1.2 Normal 1-3 Total Bilirubin 0.20 mg/dL Normal 0.2-1.0 Alkaline Phosphatase 111 U/L High 34-104 Alt 33 U/L Normal 7-52 Ast 34 U/L Normal 13-39 Egfr Non- 73.2 >60 Egfr 88.6 >60 64 Laboratory test 12/14/2018 [facility] Partial 23.9 seconds Low 26.0-36.[address] [place] [address] PTT [phone] Troponin-I (TnI) 0.01 ng/mL <0.04 65 Inr/Protime 12/14/2018 [facility] Inr 0.89 Normal 0.82-1.[address] [place] [address] [phone] CBC Auto Diff 12/14/2018 [facility] White Blood 13.8 High 3.5- 10.[address] Count 10^3/[place] [address] [phone] Red Blood Count 4.50 10^6/uL Normal 3.70-4.87 Hemoglobin 13.1 g/dL Normal 12.0-16.0 Hematocrit 41 % Normal 35-47 Mean Corpuscular Volume 92 fL Normal 80-97 Mean Corpuscular Hemoglobin 29 pg Normal 27-31 Mean Corpuscular HGB Conc 32 g/dL Normal 31-36 Red Cell Distribution Width 16 % High 10.5-15 Platelet Count 238 10^3/uL Normal 150-450 Mean Platelet Volume 8.9 fL Normal 7.4-10.4 Abs Neutrophils 8.4 10^3/uL High 1.5-7.7 Abs Lymphocytes 4.6 10^3/uL Normal 1.0-4.8 Abs Monocytes 0.7 10^3/uL Normal 0-0.8 Abs Eosinophils 0.2 10^3/uL Normal 0-0.6 Abs Basophils 0.0 10^3/uL Normal 0-0.2 Abs Nucleated RBC 0.0 10^3/uL Granulocyte % 60.4 % Lymphocyte % 33.2 % Monocyte % 5.0 % Eosinophil % 1.1 % Basophil % 0.3 % Nucleated Red Blood Cells % 0.0 Laboratory test 12/14/2018 [facility] Point of Care 128 mg/dL High 70-100 [address] [place] [address] [phone] Laboratory test 12/14/2018 [facility] Troponin-I 0.01 ng/mL < 0.04 [address] (TnI) [place] [address] [phone] B-Type Natriuretic Peptide BNP 10 pg/mL <=100 Comp Metabolic 12/14/2018 [facility] Sodium 137 mmol/L Normal 135-[address] [place] [address] [phone] Potassium 4.3 mmol/L Normal 3.5-5.0 Chloride 105 mmol/L Normal 101-111 Co2 Carbon Dioxide 27 mmol/L Normal 22-32 Anion Gap 5 mmol/L Normal 2-11 Glucose 356 mg/dL High 70-100 Blood Urea Nitrogen 11 mg/dL Normal 6-24 Creatinine 0.98 mg/dL High 0.51-0.95 BUN/Creatinine Ratio 11.2 Normal 8-20 Calcium 9.0 mg/dL Normal 8.6-10.3 Total Protein 6.2 g/dL Low 6.4-8.9 Albumin 3.4 g/dL Normal 3.2-5.2 Globulin 2.8 g/dL Normal 2-4 Albumin/Globulin Ratio 1.2 Normal 1-3 Total Bilirubin 0.20 mg/dL Normal 0.2-1.0 Alkaline Phosphatase 110 U/L High 34-104 Alt 32 U/L Normal 7-52 Ast 34 U/L Normal 13-39 Egfr Non- 59.6 >60 Egfr 72.1 >60 69 CBC Auto 12/14/2018 [facility] White Blood 9.6 10^3/uL Normal 3.5-10.[address] [place] [address] [phone] Red Blood Count 4.05 10^6/uL Normal 3.70-4.87 Hemoglobin 11.9 g/dL Low 12.0-16.0 Hematocrit 37 % Normal 35-47 Mean Corpuscular Volume 91 fL Normal 80-97 Mean Corpuscular Hemoglobin 30 pg Normal 27-31 Mean Corpuscular HGB Conc 32 g/dL Normal 31-36 Red Cell Distribution Width 15 % Normal 10.5-15 Platelet Count 196 10^3/uL Normal 150-450 Mean Platelet Volume 9.2 fL Normal 7.4-10.4 Abs Neutrophils 5.7 10^3/uL Normal 1.5-7.7 Abs Lymphocytes 3.2 10^3/uL Normal 1.0-4.8 Abs Monocytes 0.5 10^3/uL Normal 0-0.8 Abs Eosinophils 0.2 10^3/uL Normal 0-0.6 Abs Basophils 0.0 10^3/uL Normal 0-0.2 Abs Nucleated RBC 0.0 10^3/uL Granulocyte % 59.8 % Lymphocyte % 32.9 % Monocyte % 5.2 % Eosinophil % 1.6 % Basophil % 0.5 % Nucleated Red Blood Cells % 0.1 Laboratory test 12/14/2018 [facility] Lactic Acid 1.6 mmol/L Normal 0.5-2.[address] [place] [address] [phone] CBC Auto Diff 12/09/2018 [facility] White Blood 9.7 Normal 3.5 -10.[address] Count 10^3/[place] [address] [phone] Red Blood Count 4.43 10^6/uL Normal 3.70-4.87 Hemoglobin 13.3 g/dL Normal 12.0-16.0 Hematocrit 41 % Normal 35-47 Mean Corpuscular Volume 92 fL Normal 80-97 Mean Corpuscular Hemoglobin 30 pg Normal 27-31 Mean Corpuscular HGB Conc 33 g/dL Normal 31-36 Red Cell Distribution Width 16 % High 10.5-15 Platelet Count 196 10^3/uL Normal 150-450 Mean Platelet Volume 9.0 fL Normal 7.4-10.4 Abs Neutrophils 6.5 10^3/uL Normal 1.5-7.7 Abs Lymphocytes 2.6 10^3/uL Normal 1.0-4.8 Abs Monocytes 0.5 10^3/uL Normal 0-0.8 Abs Eosinophils 0.1 10^3/uL Normal 0-0.6 Abs Basophils 0.0 10^3/uL Normal 0-0.2 Abs Nucleated RBC 0.0 10^3/uL Granulocyte % 67.1 % Lymphocyte % 26.6 % Monocyte % 4.9 % Eosinophil % 1.0 % Basophil % 0.4 % Nucleated Red Blood Cells % 0.1 Comp Metabolic 12/09/2018 [facility] Sodium 139 mmol/L Normal 135-[address] [place] [address] [phone] Chloride 106 mmol/L Normal 101-111 Co2 Carbon Dioxide 26 mmol/L Normal 22-32 Glucose 244 mg/dL High 70-100 Blood Urea Nitrogen 21 mg/dL Normal 6-24 Creatinine 0.95 mg/dL Normal 0.51-0.95 BUN/Creatinine Ratio 22.1 High 8-20 Calcium 8.9 mg/dL Normal 8.6-10.3 Total Protein 7.1 g/dL Normal 6.4-8.9 Albumin 3.7 g/dL Normal 3.2-5.2 Globulin 3.4 g/dL Normal 2-4 Albumin/Globulin Ratio 1.1 Normal 1-3 Total Bilirubin 0.30 mg/dL Normal 0.2-1.0 Alkaline Phosphatase 123 U/L High 34-104 Alt 46 U/L Normal 7-52 Egfr Non- 61.8 >60 Egfr 74.7 >60 71 Potassium 4.9 mmol/L Normal 3.5-5.0 Anion Gap 7 mmol/L Normal 2-11 Ast 51 U/L High 13-39 Laboratory test finding 12/09/2018 [facility] Amylase 23 U/L Low 29-103 [address] [place] [address] [phone] Lipase < 10 U/L Low 11.0-82.0 Laboratory test 12/05/2018 [facility] Acetaminophen < 15 g/mL 72 finding [address] [place] [address] [phone] Alcohol < 10 mg/dL Normal <10 Salicylate < 2.50 mg/dL <30 TSH (Thyroid Stim Horm) 8.38 mcIU/mL High 0.34-5.60 Comp Metabolic 12/05/2018 [facility] Sodium 139 mmol/L Normal 135-145 Panel [address] [place] [address] [phone] Potassium 3.9 mmol/L Normal 3.5-5.0 Chloride 107 mmol/L Normal 101-111 Co2 Carbon Dioxide 27 mmol/L Normal 22-32 Anion Gap 5 mmol/L Normal 2-11 Glucose 87 mg/dL Normal 70-100 Blood Urea Nitrogen 11 mg/dL Normal 6-24 Creatinine 0.79 mg/dL Normal 0.51-0.95 BUN/Creatinine Ratio 13.9 Normal 8-20 Calcium 9.5 mg/dL Normal 8.6-10.3 Total Protein 7.7 g/dL Normal 6.4-8.9 Albumin 4.1 g/dL Normal 3.2-5.2 Globulin 3.6 g/dL Normal 2-4 Albumin/Globulin Ratio 1.1 Normal 1-3 Total Bilirubin 0.30 mg/dL Normal 0.2-1.0 Alkaline Phosphatase 132 U/L High 34-104 Alt 44 U/L Normal 7-52 Ast 46 U/L High 13-39 Egfr Non- 76.4 >60 Egfr 92.5 >60 73 CBC Auto 12/05/2018 [facility] White Blood 11.5 10^3/uL High 3.5-10.[address] [place] [address] [phone] Red Blood Count 4.65 10^6/uL Normal 3.70-4.87 Hemoglobin 13.9 g/dL Normal 12.0-16.0 Hematocrit 42 % Normal 35-47 Mean Corpuscular Volume 90 fL Normal 80-97 Mean Corpuscular Hemoglobin 30 pg Normal 27-31 Mean Corpuscular HGB Conc 33 g/dL Normal 31-36 Red Cell Distribution Width 15 % Normal 10.5-15 Platelet Count 254 10^3/uL Normal 150-450 Mean Platelet Volume 8.5 fL Normal 7.4-10.4 Abs Neutrophils 6.6 10^3/uL Normal 1.5-7.7 Abs Lymphocytes 4.1 10^3/uL Normal 1.0-4.8 Abs Monocytes 0.6 10^3/uL Normal 0-0.8 Abs Eosinophils 0.1 10^3/uL Normal 0-0.6 Abs Basophils 0.1 10^3/uL Normal 0-0.2 Abs Nucleated RBC 0.0 10^3/uL Granulocyte % 57.7 % Lymphocyte % 35.6 % Monocyte % 5.1 % Eosinophil % 1.1 % Basophil % 0.5 % Nucleated Red Blood Cells % 0.0 Laboratory test 11/21/2018 [facility] Point of 88 mg/dL Normal 70-100 [address] [address] [phone] Laboratory test 11/21/2018 [facility] Point of 56 mg/dL Low 70 -100 [address] [address] [phone] Urinalysis 11/21/2018 [facility] Urine Color Yellow Profile [address] [place] [address] [phone] Urine Appearance Cloudy Urine Specific Moran 1.016 Normal 1.010-1.030 Urine pH 6.0 Normal 5-9 Urine Urobilinogen Negative Negative Urine Ketones [...] Present Abnormal Absent Urine Culture And 11/21/2018 [facility] Urine Culture SEE RESULT [address] [place] [address] [phone] Laboratory test 10/26/2018 [facility] In House Glucose Random 158 finding Hemoglobin A1c 8.0 High 5-7 1 SEE RESULT BELOW Name: CECILIO ALFARO Cameron : [address]: Rosa Schroeder MD Acct: [id number] Unit: [id number] AGE: 53 Location: [facility] Re02/16/19 SEX: F Status: REG REF SPEC: [id number] ANKUR: 02/16/19-[address]: Rosa Schroeder MD REQ: [id number] RECD: 02/16/191226 STATUS: COMP _ SOURCE: URINE SPDESC: ORDERED: Urine Culture COMMENTS: [id number] Urine Source: Random Procedure Result Reported Site Urine Culture Final 02/18/19- 08 ML Organism 1 ESCHERICHIA COLI [place] Count 10-25,000 (Moderate) CFU/ML Organism 2 ENTEROCOCCUS FAECIUM [place] Count >100,000 (Many) CFU/ML 1. ESCHERICHIA COLI [facility]. RX --------- ------ Ampicillin 8 S Cefazolin <=4 S Cefepime <=1 S Ceftriaxone <=1 S Ciprofloxacin <=0.25 S Gentamicin <=1 S Levofloxacin <=0.12 S Meropenem <=0.25 S Nitrofurantoin <=16 S Tetracycline >=16 R Pipercillin/Tazobactam <=4 S Trimethoprim/Sulfamethoxazole <=20 S Amoxicillin/Clavulanic Acid <=2 S Aztreonam <=1 S CONTINUED ON NEXT PAGE DEPARTMENT OF PATHOLOGY, [address] [place] [address] Tay Gamboa M.D. Director [facility] # [id number] Patient: CECILIO ALFARO [id number] (Continued) Specimen: [id number] Collected: 02/16/19 Received: 02/16/19 (Continued) Procedure Result Reported Site Urine Culture Final (continued) 02/18/19815 2. ENTEROCOCCUS FAECIUM M.I.C. RX --------- ------ Ampicillin R Penicillin 16 R Ciprofloxacin <=0.5 S Gentamicin High Level S Levofloxacin 2 S Linezolid 2 S Nitrofurantoin 64 I * Quinupristin/Dalfopristin 1 S * Streptomycin High Level S Tetracycline <=1 S Doxycycline - Deduced S * Minocycline - Deduced S Tigecycline <=0.12 S Vancomycin <=0.5 S * Ampicillin/Sulbactam-Deduced R * These antibiotics are not available in the [facility] Formulary Contact the Microbiology Department for any additional antibiotic reporting. Contact the Microbiology Department for any additional antibiotic reporting. * ML - Main Lab . END OF REPORT DEPARTMENT OF PATHOLOGY, [address] [place] [address] Tay Gamboa M.D. Director [facility] # [id number] 2 Exhibit Artist: [id number] 3 Exhibit Artist: [id number] 4 Exhibit Artist: [id number] 5 Reference ranges based on room air. 6 *Ascorbic acid is present which may interfere with detection of blood. 7 Because ethnic data is not always [...] 5 Kidney failure <15 (or dialysis) 8 Critical Result LACT:2.9 Called to [id number] at: 19:36:39 by:[id number] Read back by:SHAWNEE [facility] Severe Sepsis and Septic Shock Management Bundle Measure requires all lactic acids initially measuring >2.0 mmol/L be repeated. 9 SEE RESULT BELOW Name: CECILIO ALFARO : [address]: Violeta Yusuf MD Acct: [id number] Unit: [id number] AGE: 53 Location: ED Re02/09/19 SEX: F Status: DEP ER SPEC: [id number] ANKUR: 02/09/[address] [facility] [address]: Maycol Al MD REQ: [id number] RECD: 02/09/19 STATUS: TASHA BARFIELD DR: [facility] Rosa Schroeder MD _ SOURCE: URINE SPDESC: ORDERED: Urine Culture Procedure Result Reported Site Urine Culture Final 02/10/19- 1600 ML No growth of clinically significant organisms * ML - Main Lab . END OF REPORT DEPARTMENT OF PATHOLOGY, [address] [place] [address] aTy Gamboa M.D. Director [facility] # [id number] 10 Exhibit Artist: [id number] 12 Therapeutic target for the treatment of diabetes mellitus patients is <7% HBA1C, and in selective patients <6.0%. Please refer to [place] [employer] diabetic care guidelines for further information. 13 Specimen hemolyzed. Result may not be valid. [facility] Severe Sepsis and Septic Shock Management Bundle [...] 5 Kidney failure <15 (or dialysis) 15 SEE RESULT BELOW Name: CECILIO ALFARO : [address]: Neo Kauffman MD Acct: [id number] Unit: [id number] AGE: 53 Location: ED Re02/03/19 SEX: F Status: DEP ER SPEC: [id number] ANKUR: 02/03/[address]: Senia OLSEN REQ: [id number] RECD: 02/03/19 STATUS: TASHA BARFIELD DR: Rosa Kauffman MD _ SOURCE: URINE SPDESC: ORDERED: Urine Culture Procedure Result Reported Site Urine Culture Final 02/06/19- 0850 ML Organism 1 ENTEROCOCCUS FAECALIS [place] Count >100,000 (Many) CFU/ML 1. ENTEROCOCCUS FAECALIS M.I.C. RX --------- ------ Ampicillin <=2 S Penicillin 8 S Ciprofloxacin >=8 R Gentamicin High Level S Levofloxacin >=8 R Linezolid 2 S Nitrofurantoin <=16 S * Quinupristin/Dalfopristin >=16 R * Streptomycin High Level R Tetracycline >=16 R Tigecycline <=0.12 S Vancomycin 2 S Imipenem-Deduced S * Ampicillin/Sulbactam-Deduced S * These antibiotics are not available in the [facility] Formulary Contact the Microbiology Department for any additional antibiotic reporting. * - [facility] . END OF REPORT DEPARTMENT OF PATHOLOGY, [address] [place] [address] Tay Gamboa M.D. Director [facility] # [id number] 16 SEE RESULT BELOW Name: CECILIO ALFARO : [address]: Sherita Lui MD Acct: [id number] Unit: [id number] AGE: 53 Location: [place] [address]- Re02/01/19 Dis: 02/03/19 SEX: F Status: DIS Clay SPEC: [id number] ANKUR: 02/01/[address] [facility] [address]: Maycol Al MD REQ: [id number] RECD: 02/01/19 STATUS: TASHA BARFIELD DR: Rosa Schroeder MD _ SOURCE: BLOOD,VENO SPDES: ORDERED: Blood Cult Procedure Result Reported Site Aerobic Culture Bottle Final 02/06/191904 ML No Growth Day 5 Anaerobic Culture Bottle Final 02/06/191902 ML No Growth Day 5 * ML - Main Lab . END OF REPORT DEPARTMENT OF PATHOLOGY, [address] [place] [address] Tay Gamboa M.D. Director [facility] # [id number] 17 SEE RESULT BELOW Name: CECILIO ALFARO : [address]: Avery Leavitt MD Acct: [id number] Unit: [id number] AGE: 53 Location: [place] [address] Re02/01/19 SEX: F Status: ADM IN SPEC: [id number] ANKUR: 02/01/[address] [facility] [address]: Maycol Al MD REQ: [id number] RECD: 02/01/19 STATUS: TASHA BARFIELD DR: Rosa Schroeder MD _ SOURCE: URINE SPDESC: ORDERED: Urine Culture Procedure Result Reported Site Urine Culture Final 02/02/19- 1607 ML No Growth (<1,000 CFU/mL) * ML - Main Lab . END OF REPORT DEPARTMENT OF PATHOLOGY, [address] [place] [address] Tay Gamboa M.D. Director [facility] # [id number] 18 Troponin-I testing on Plasma Separator Tubes (PST) has a known false positive rate of 0.20-0.40%. All positive troponins reflex immediately to secondary confirmatory testing. Using the [employer]2comply ([employer]) DxI 800 Access Immunoassay systems, the 99th percentile upper reference limit was demonstrated to be < 0.03 ng/mL. 19 Because ethnic data is not always [...] 5 Kidney failure <15 (or dialysis) 20 [facility] Severe Sepsis and Septic Shock Management Bundle Measure requires all lactic acids initially measuring >2.0 mmol/L be repeated. 21 Standard intensity warfarin therapeutic range: 2.0-3.0 High intensity warfarin therapeutic range: 2.5-3.5 22 Exhibit Artist: [id number] 23 Exhibit Artist: [id number] 25 SEE RESULT BELOW Name: CECILIO ALFARO : [address]: Rosa Schroeder MD Acct: [id number] Unit: [id number] AGE: 53 Location: [facility] Re01/30/19 SEX: F Status: REG REF SPEC: [id number] ANKUR: 01/30/19-[address] [facility] [address]: Rosa Schroeder MD REQ: [id number] RECD: 01/31/19-124 STATUS: COMP _ SOURCE: URINE SPDESC: ORDERED: Urine Culture COMMENTS: [id number] Urine Source: Random Procedure Result Reported Site Urine Culture Final 02/02/19- 08 ML Organism 1 FAY RICHI [place] Count 10-25,000 (Moderate) CFU/ML Organism 2 NORMAL MICHELLE [place] Count 1-10,000 (Few) CFU/ML 1. FAY DumontIJarredCJarred RX --------- ------ Ampicillin R Cefazolin >=64 R Cefepime <=1 S Ceftriaxone <=1 S Ciprofloxacin <=0.25 S Gentamicin <=1 S Levofloxacin <=0.12 S Meropenem <=0.25 S Nitrofurantoin <=16 S Tetracycline 4 S Pipercillin/Tazobactam 8 S Trimethoprim/Sulfamethoxazole <=20 S Amoxicillin/Clavulanic Acid R Aztreonam <=1 S Contact the Microbiology Department for any additional antibiotic reporting. * ML - Main Lab . END OF REPORT DEPARTMENT OF PATHOLOGY, [address] [place] [address] Tay Gamboa M.D. Director [facility] # [id number] 26 SEE RESULT BELOW Name: CECILIO ALFARO : [address]: Corey Easton MD Acct: [id number] Unit: [id number] AGE: 53 Location: ED Re01/28/19 SEX: F Status: DEP ER SPEC: [id number] ANKUR: 01/28/[address] [facility] [address]: Corey Easton MD REQ: [id number] RECD: 01/28/19 STATUS: TASHA BARFIELD DR: Rosa Schroeder MD _ SOURCE: URINE SPDESC: ORDERED: Urine Culture Procedure Result Reported Site Urine Culture Final 01/31/19- 0934 ML Organism 1 ESCHERICHIA COLI [place] Count 10-25,000 (Moderate) CFU/ML Organism 2 ENTEROCOCCUS FAECALIS [place] Count 75-100,000 (Many) CFU/ML 1. ESCHERICHIA COLI M.I.C. RX --------- ------ Ampicillin 8 S Cefazolin <=4 S Cefepime <=1 S Ceftriaxone <=1 S Ciprofloxacin <=0.25 S Gentamicin <=1 S Levofloxacin <=0.12 S Meropenem <=0.25 S Nitrofurantoin <=16 S Tetracycline >=16 R Pipercillin/Tazobactam <=4 S Trimethoprim/Sulfamethoxazole <=20 S Amoxicillin/Clavulanic Acid <=2 S Aztreonam <=1 S 2. ENTEROCOCCUS FAECALIS M.I.C. RX --------- ------ Ampicillin <=2 S Penicillin 8 S Ciprofloxacin <=0.5 S Gentamicin High Level S CONTINUED ON NEXT PAGE DEPARTMENT OF PATHOLOGY, [address] [place] [address] Tay Gamboa M.D. Director [facility] # [id number] Patient: ANGELINACECILIO [id number] (Continued) Specimen: [id number] Collected: 01/28/19 Received: 01/28/19 (Continued) Procedure Result Reported Site Urine Culture Final (continued) 01/31/19933 2. ENTEROCOCCUS FAECALIS (continued) M.I.C. RX --------- ------ Levofloxacin 0.5 S Linezolid 2 S Nitrofurantoin <=16 S * Quinupristin/Dalfopristin 4 R * Streptomycin High Level S Tetracycline <=1 S Doxycycline - Deduced S * Minocycline - Deduced S Tigecycline <=0.12 S Vancomycin 2 S Imipenem-Deduced S * Ampicillin/Sulbactam-Deduced S * These antibiotics are not available in the [facility] Formulary Contact the Microbiology Department for any additional antibiotic reporting. Contact the Microbiology Department for any additional antibiotic reporting. * ML - Main Lab . END OF REPORT DEPARTMENT OF PATHOLOGY, [address] [place] [address] Tay Gamboa M.D. Director [facility] # [id number] 27 Troponin-I testing on Plasma Separator Tubes (PST) has a known false positive rate of 0.20-0.40%. All positive troponins reflex immediately to secondary confirmatory testing. Using the [employer]2comply ([employer]) DxI 800 Access Immunoassay systems, the 99th percentile upper reference limit was demonstrated to be < 0.03 ng/mL. 28 <5.0 Negative 5.0 - 25.0 Indeterminate (Repeat testing recommended after 72 hours) >25.0 Positive Perimenopausal women can display HCG levels of up to 20 mIU/mL 29 [facility] Severe Sepsis and Septic Shock Management Bundle Measure requires all lactic acids initially measuring >2.0 mmol/L be repeated. 30 Because ethnic data is not always [...] 5 Kidney failure <15 (or dialysis) 31 Standard intensity warfarin therapeutic range: 2.0-3.0 High intensity warfarin therapeutic range: 2.5-3.[address] [facility] Severe Sepsis and Septic Shock Management Bundle Measure requires all lactic acids initially measuring >2.0 mmol/L be repeated. 33 Because ethnic data is not always [...] 5 Kidney failure <15 (or dialysis) 34 SEE RESULT BELOW Name: CECILIO ALFARO : [address]: Temi Brewer Acct: [id number] Unit: [id number] AGE: 53 Location: ED Re01/23/19 SEX: F Status: DEP ER SPEC: [id number] ANKUR: 01/24/[address]: Temi Trujillo MD REQ: [id number] RECD: 01/24/19 STATUS: TASHA BARFIELD DR: Rosa Schroeder MD _ SOURCE: URINE SPDESC: ORDERED: Urine Culture Procedure Result Reported Site Urine Culture Final 01/26/19- 0823 ML Organism 1 ESCHERICHIA COLI [place] Count 25-50,000 (Moderate) CFU/ML Organism 2 NORMAL MICHELLE [place] Count 25-50,000 (Moderate) CFU/ML 1. ESCHERICHIA COLI M.I.C. RX --------- ------ Ampicillin 8 S Cefazolin <=4 S Cefepime <=1 S Ceftriaxone <=1 S Ciprofloxacin <=0.25 S Gentamicin <=1 S Levofloxacin <=0.12 S Meropenem <=0.25 S Nitrofurantoin <=16 S Tetracycline >=16 R Pipercillin/Tazobactam <=4 S Trimethoprim/Sulfamethoxazole <=20 S Amoxicillin/Clavulanic Acid <=2 S Aztreonam <=1 S Contact the Microbiology Department for any additional antibiotic reporting. * ML - Main Lab . END OF REPORT DEPARTMENT OF PATHOLOGY, [address] [place] [address] Tay Gamboa M.D. Director [facility] # [id number] 35 Exhibit Artist: [id number] 36 SEE RESULT BELOW Name: CECILIO ALFARO : [address]: Jonathan Reynoso DO Acct: [id number] Unit: [id number] AGE: 53 Location: OR Re01/19/19 SEX: F Status: BITA STROUD SPEC: [id number] ANKUR: 01/19/19-[address] [facility] [address]: Jonathan Obregonan REQ: [id number] RECD: 01/19/192559 STATUS: NILS BARFIELD DR: Rosa Schroeder MD [...] CONTINUED ON NEXT PAGE DEPARTMENT OF PATHOLOGY, [address] [place] [address] Tay Gamboa M.D. Director [facility] # [id number] RUN DATE: 01/22/19 [facility] LAB LIVE PAGE 2 Patient: CECILIO ALFARO [id number] (Continued) FINAL DIAGNOSIS (Continued) PRE-OPERATIVE DIAGNOSIS 6) [...] CONTINUED ON NEXT PAGE DEPARTMENT OF PATHOLOGY, [address] [place] [address] Tay Gamboa M.D. Director [facility] # [id number] RUN DATE: 01/22/19 [facility] LAB LIVE PAGE 3 Patient: CECILIO ALFARO [id number] (Continued) GROSS DESCRIPTION (Continued) tissue fragments which is submitted entirely in one cassette. Signed by and Reported on: Tay Gamboa MD 1439 END OF REPORT DEPARTMENT OF PATHOLOGY, [address] [place] [address], [place] [address] Tay Gamboa M.D. Director [facility] # [id number] 37 SEE RESULT BELOW Name: CECILIO ALFARO Cameron : [address]: Jonathan Reynoso DO Acct: [id number] Unit: [id number] AGE: 53 Location: OR Re01/19/19 SEX: F Status: DEP REYNALDOC SPEC: [id number] ANKUR: 01/19/[address] [facility] [address]: Jonathan Reynoso DO REQ: [id number] RECD: 01/19/19 STATUS: TASHA BARFIELD DR: Rosa Schroeder MD _ SOURCE: GAS ANTRUM SPDESC: ORDERED: Clotest Procedure Result Reported Site Clotest Final 01/20/19- 808 ML Clotest Negative * ML - Main Lab . END OF REPORT DEPARTMENT OF PATHOLOGY, [address] [place] [address] Tay Gamboa M.D. Director [facility] # [id number] 38 Exhibit Artist: [id number] 39 Exhibit Artist: [id number] Repeat Test Insufficient sample Exhibit Artist: [id number] 41 Exhibit Artist: [id number] 42 Exhibit Artist: [id number] 43 Because ethnic data is not always [...] 5 Kidney failure <15 (or dialysis) 44 Critical Result ACTM:225.7 Called to [id number] at: 13:20:54 by:[id number] Read back by:[id number] Therapeutic concentration: <50 ug/mL Toxic concentration: >120 ug/mL 45 Because ethnic data is not always [...] 5 Kidney failure <15 (or dialysis) 46 Critical Result ACTM:141.6 Called to RITCHIE at: 15:26:33 by:[id number] Read back by:RITCHIE Therapeutic concentration: <50 ug/mL Toxic concentration: >120 ug/mL 47 Exhibit Artist: [id number] 48 Exhibit Artist: [id number] 49 Because ethnic data is not always [...] 5 Kidney failure <15 (or dialysis) 50 Exhibit Artist: [id number] 51 SEE RESULT BELOW Name: CECILIO ALFARO : [address]: Juan David Cardoza MD Acct: [id number] Unit: [id number] AGE: 53 Location: ED Re01/02/19 SEX: F Status: REG ER SPEC: [id number] ANKUR: 01/02/[address]: Lupis Cardoza MD REQ: [id number] RECD: 01/02/19 STATUS: TASHA BARFIELD DR: Rosa Schroeder MD _ SOURCE: URINE SPDESC: ORDERED: Urine Culture Procedure Result Reported Site Urine Culture Final 01/03/19- 1135 ML Mixed michelle; possible contamination. Suggest resubmission. * ML - Main Lab . END OF REPORT DEPARTMENT OF PATHOLOGY, [address] [place] [address] Tay Gamboa M.D. Director [facility] # [id number] 52 Therapeutic concentration: <50 ug/mL Toxic concentration: >120 ug/mL 53 Because ethnic data is not always [...] 5 Kidney failure <15 (or dialysis) 54 The urine specimen was tested at the listed cutoffs: Drug class test level (ng/mL) Amphetamines 500 Barbiturates 200 Benzodiazepine metabolites 200 Cocaine metabolites 150 Cannabinoids 50 Opiates 300 Pcp 25 Specimen was received without chain of custody. Results should be used for medical purposes only. 55 Exhibit Artist: [id number] 56 Exhibit Artist: [id number] 57 [facility] Severe Sepsis and Septic Shock Management Bundle Measure requires all lactic acids initially measuring >2.0 mmol/L be repeated. 58 Because ethnic data is not always [...] 5 Kidney failure <15 (or dialysis) 59 Critical Result GLU:46 Called to [id number] at: 16:46:21 by:[id number] Read back by:[id number] 60 Troponin-I testing on Plasma Separator Tubes (PST) has a known false positive rate of 0.20-0.40%. All positive troponins reflex immediately to secondary confirmatory testing. Using the [employer] 800 Access Immunoassay systems, the 99th percentile upper reference limit was demonstrated to be < 0.03 ng/mL. 61 SEE RESULT BELOW Name: CECILIO ALFARO : [address]: Violeta Yusuf MD Acct: [id number] Unit: [id number] AGE: 53 Location: ED Re12/14/18 SEX: F Status: DEP ER SPEC: [id number] ANKUR: 12/14/18-[address] [facility] [address]: Violeta Yusuf MD REQ: [id number] RECD: 12/14/18 STATUS: TASHA BARFIELD DR: Rosa Schroeder MD _ SOURCE: URINE SPDESC: ORDERED: Urine Culture Procedure Result Reported Site Urine Culture Final 12/15/18- 1256 ML No growth of clinically significant organisms * ML - Main Lab . END OF REPORT DEPARTMENT OF PATHOLOGY, [address] [place] [address] Tay Gamboa M.D. Director [facility] # [id number] [facility] Severe Sepsis and Septic Shock Management Bundle Measure requires all lactic acids initially measuring >2.0 mmol/L be repeated. 63 <5.0 Negative 5.0 - 25.0 Indeterminate (Repeat testing recommended after 72 hours) >25.0 Positive Perimenopausal women can display HCG levels of up to 20 mIU/mL 64 Because ethnic data is not always readily [...] 15-29 5 Kidney failure <15 (or dialysis) 65 Troponin-I testing on Plasma Separator Tubes (PST) has a known false positive rate of 0.20-0.40%. All positive troponins reflex immediately to secondary confirmatory testing. Using the [employer]2comply ([employer]) DxI 800 Access Immunoassay systems, the 99th percentile upper reference limit was demonstrated to be < 0.03 ng/mL. 66 Standard intensity warfarin therapeutic range: 2.0-3.0 High intensity warfarin therapeutic range: 2.5-3.5 67 Exhibit Artist: [id number] 68 Troponin-I testing on Plasma Separator Tubes (PST) has a known false positive rate of 0.20-0.40%. All positive troponins reflex immediately to secondary confirmatory testing. Using the [employer] DxI 800 Access Immunoassay systems, the 99th percentile upper reference limit was demonstrated to be < 0.03 ng/mL. 69 Because ethnic data is not always [...] 5 Kidney failure <15 (or dialysis) 70 [facility] Severe Sepsis and Septic Shock Management Bundle Measure requires all lactic acids initially measuring >2.0 mmol/L be repeated. 71 Because ethnic data is not always [...] 5 Kidney failure <15 (or dialysis) 72 Therapeutic concentration: <50 ug/mL Toxic concentration: >120 ug/mL 73 Because ethnic data is not always readily [...] 15-29 5 Kidney failure <15 (or dialysis) 74 Exhibit Artist: [id number] 75 Exhibit Artist: [id number] 76 SEE RESULT BELOW Name: CECILIO ALFARO : [address]: Neo Steinberg MD Acct: [id number] Unit: [id number] AGE: 53 Location: ED Re11/21/18 SEX: F Status: DEP ER SPEC: [id number] ANKUR: 11/21/[address] [facility] [address]: Neo Steinberg MD REQ: [id number] RECD: 11/21/18 STATUS: TASHA BARFIELD DR: Rosa Schroeder MD _ SOURCE: URINE SPDESC: ORDERED: Urine Culture Procedure Result Reported Site Urine Culture Final 11/23/18- 1003 ML No growth of clinically significant organisms * ML - Main Lab . END OF REPORT DEPARTMENT OF PATHOLOGY, [address] [place] [address] Tay Gamboa M.D. Director [facility] # [id number] Procedures Date Code Description Status 02/27/2019 [id number] Mammogram Completed 10/26/2017 [id number] Diabetic Retinal Eye Exam Completed 05/01/2016 [id number] Mammogram Completed Medical Devices Description No Information Available Encounters Type Date Location Provider Dx Diagnosis Office Visit 02/07/2019 [facility] Internal Rosa Schroeder MD N39.0 Urinary tract 3:40p Medicine - Ccmob infection, site not specified R10.84 Generalized abdominal pain Office Visit 02/02/2019 11:33a [facility] Essie N39.0 Urinary tract Assoc,matthieu Up, infection, site Hospitalists [employer] not specified Office Visit 02/01/2019 11:32a [facility] Quique E87.6 Hypokalemia Assoc,pc Adelina Aden Hospitalists E16.2 Hypoglycemia, unspecified R10.9 Unspecified abdominal pain R30.0 Dysuria Office Visit 01/30/2019 4:40p [facility] Internal Rosa Schroeder MD N39.0 Urinary tract Medicine - Ccmob infection, site not specified B37.3 Candidiasis of vulva and vagina I10 Essential (primary) hypertension Z12.31 Encntr screen mammogram for malignant neoplasm of breast Office Visit 01/30/2019 [facility] and Moreno Coch, E11.65 Type 2 diabetes 11:20a Endocrinology of MD mellitus with [facility] hyperglycemia 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 Office Visit 01/12/2019 10:20a [facility] Internal Robyn Guerrero B37.2 Candidiasis of Medicine - Ccmob skin and nail T14.91xD Suicide attempt, subsequent encounter Office Visit 12/20/2018 3:00p Spine Navigator Consuelo Corrales, M51.27 Other intervertebral Of [facility] PA-C disc displacement, lumbosacral region Office Visit 12/20/2018 8:00a [facility] Internal Rosa Schroeder, F25.9 Schizoaffective Medicine - MD disorder, unspecified Ccmob E11.65 Type 2 diabetes mellitus with hyperglycemia 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, lumbosacral region I10 Essential (primary) hypertension Z72.0 Tobacco use J45.909 Unspecified asthma, uncomplicated K86.81 Exocrine pancreatic insufficiency Office Visit 12/08/2018 [facility] Diabetes and Moreno Sandoval, E11.65 Type 2 diabetes 9:40a Endocrinology of MD mellitus with [facility] hyperglycemia Z79.4 long-term (current) use of insulin E03.9 Hypothyroidism, unspecified F25.9 Schizoaffective disorder, unspecified Office Visit 10/26/2018 4:00p [facility] Ayesha and Moreno Sandoval, Z79.4 long-term Endocrinology of [facility] (current) use of insulin E11.65 Type 2 diabetes mellitus with hyperglycemia E03.9 Hypothyroidism, unspecified Office Visit 10/19/2018 [facility] Internal Lawrence Simental M51.26 Other intervertebral 11:00a Jaylene Denson M.D.,FACP disc displacement, Suite R lumbar region E11.65 Type 2 diabetes mellitus with hyperglycemia K59.00 Constipation, unspecified Office Visit 10/18/2018 1:15p Spine Navigator Consuelo Corrales, M51.26 Other intervertebral Of [facility] PA-C disc displacement, lumbar region 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, lumbosacral region Office Visit 10/02/2018 3:00p [facility] Internal Rosa Schroeder MD I10 Essential (primary) Medicine - Suite hypertension R M54.16 Radiculopathy, lumbar region F17.211 Nicotine dependence, cigarettes, in remission E66.9 Obesity, unspecified B37.3 Candidiasis of vulva and vagina Office Visit 09/25/2018 3:00p Spine Navigator Consuelo Corrales M54.16 Radiculopathy, Of [facility] PA-C lumbar region Assessments Date Code Description Provider 03/23/2019 I10 Essential (primary) hypertension Rosa Schroeder MD 03/23/2019 B35.6 Tinea cruris Rosa Schroeder MD 03/23/2019 R53.83 Other fatigue Rosa Schroeder MD 03/23/2019 G47.30 Sleep apnea, unspecified Rosa Schroeder MD 03/23/2019 F17.210 Nicotine dependence, cigarettes, Rosa Schroeder MD uncomplicated 03/23/2019 L03.116 Cellulitis of left lower limb Rosa Schroeder MD 02/28/2019 M47.896 Other spondylosis, lumbar region Marissa Samuel MD 02/16/2019 N39.0 Urinary tract infection, site not Nurse Visit A specified 02/07/2019 N39.0 Urinary tract infection, site not Rosa Schroeder MD specified 02/07/2019 R10.84 Generalized abdominal pain Rosa Schroeder MD 02/02/2019 N39.0 Urinary tract infection, site not Essie Up NP specified 02/01/2019 E87.6 Hypokalemia Quique Aden M.D. 02/01/2019 E16.2 Hypoglycemia, unspecified Quique Aden M.D. 02/01/2019 R10.9 Unspecified abdominal pain Quique Aden M.D. 02/01/2019 R30.0 Dysuria Quique Aden M.D. 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 Moreno Sandoval MD 01/30/2019 I10 Essential (primary) hypertension Rosa Schroeder MD 01/30/2019 Z12.31 Encounter for screening mammogram Rosa Schroeder MD for malignant neoplasm of 01/12/2019 B37.2 Candidiasis of skin and nail Robyn Guerrero MD 01/12/2019 T14.91xD Suicide attempt, subsequent Robyn Guerrero MD encounter 12/22/2018 M47.896 Other spondylosis, lumbar region Marissa Samuel MD 12/22/2018 M48.062 Spinal stenosis, lumbar region with Marissa Samuel MD neurogenic claudication 12/20/2018 F25.9 Schizoaffective disorder, Rosa Schroeder MD unspecified 12/20/2018 M51.27 Other intervertebral disc Consuelo Savanna, PA-C displacement, lumbosacral region 12/20/2018 E11.65 Type 2 diabetes mellitus with Rosa Schroeder MD hyperglycemia 12/20/2018 M51.27 Other intervertebral disc Rosa Schroeder MD displacement, lumbosacral region 12/20/2018 I10 Essential (primary) hypertension Rosa Schroeder MD 12/20/2018 Z72.0 Tobacco use Rosa Schroeder MD 12/20/2018 J45.909 Unspecified asthma, uncomplicated Rosa Schroeder MD 12/20/2018 K86.81 Exocrine pancreatic insufficiency Rosa Schroeder MD 12/08/2018 E11.65 Type 2 diabetes mellitus with Moreno Sandoval MD hyperglycemia 12/08/2018 Z79.4 long-term (current) use of insulin Moreno Sandoval MD 12/08/2018 E03.9 Hypothyroidism, unspecified Moreno Sandoval MD 12/08/2018 F25.9 Schizoaffective disorder, Moreno Sandoval MD unspecified 10/26/2018 Z79.4 long-term (current) use of insulin Moreno Sandoval MD 10/26/2018 E11.65 Type 2 diabetes mellitus with Moreno Sandoval MD hyperglycemia 10/26/2018 E03.9 Hypothyroidism, unspecified Moreno Sandoval MD 10/19/2018 M51.26 Other intervertebral disc Lawrence Denson M.D.,FACP displacement, lumbar region 10/19/2018 E11.65 Type 2 diabetes mellitus with Lawrence Denson M.D.,FACP hyperglycemia 10/19/2018 K59.00 Constipation, unspecified Lawrence Denson M.D.,FACP 10/18/2018 M51.26 Other intervertebral disc Consuelo Savanna, PA-C displacement, lumbar region 10/18/2018 M51.27 Other intervertebral disc Consuelo Savanna, PA-C displacement, lumbosacral region 10/02/2018 I10 Essential (primary) hypertension Rosa Schroeder MD 10/02/2018 M54.16 Radiculopathy, lumbar region Rosa Schroeder MD 10/02/2018 F17.211 Nicotine dependence, cigarettes, in Rosa Schroeder MD remission 10/02/2018 E66.9 Obesity, unspecified Rosa Schroeder MD 10/02/2018 B37.3 Candidiasis of vulva and vagina Rosa Schroeder MD 09/25/2018 M54.16 Radiculopathy, lumbar region RAÚL Gardiner-C Plan of Treatment Future Appointment(s):05/02/2019 4:00 pm - [facility] 1[facility] - Moreno Sandoval MD at [facility]03/23/2019 - Rosa Schroeder MDI10 Essential (primary) hypertensionComments:Continue with your current medication.Follow up:CANCEL 04/03 QGEBZK89.6 Tinea crurisNew Medication:Clotrimazole Anti-Fungal 1 % - apply to affected area twice a dayR53.83 Other fatigueNew Labs:TSH (Thyroid Stim Horm), Ordered: 03/23/19G47.30 Sleep apnea, unspecifiedRef[place],Diag/ShtvsoW39.210 Nicotine dependence, cigarettes, uncomplicatedNew Medication:Chantix Starting Month Narinder 0.5 mg X 11 & 1 mg X 42 - follow directions on the packageComments:I am prescribing Chantix. We discussed potential side effects, so please discuss with your therapistbefore starting itL03.116 Cellulitis of left lower limbComments:resolved Functional Status Description No Information Available Mental Status Description No Information Available Referrals Refer to Reason for Referral Status Appt [place] [facility] [place] with known BETZY, has been without cpap for Sent years, now complaining of excessive daytime fatigue [address] [place] [id number] [phone] Angela Rawls MD Closed [address] [place] [id number] [phone]
--- OUTSIDE RECORDS SUMMARY | 2019-05-16 10:46 | XMS REPORT | Continuity of Care Document ---
:1965 External Reference #:[id number] Author Name Alexander Hernandez MD, FACS (transmitted by agent of provider Oralia Villarreal) Address [address] [place] [address] [place] [address] Care Team Providers Name Role Phone Ben Ovalles MD - Gastroenterology Care Team Information Manager Disaster Recovery Erik Grant MD - Ophthalmology Care Team Information Manager Disaster Recovery [phone] Rosa Schroeder M.D. - Family Medicine Care Team Information Manager Disaster Recovery Problems Active Problems Provider Date Type 2 [...] Comments Sex Unknown Tobacco Use Start: Unknown Current Cigarette Smoker 5-10 Cigarettes Daily Smoking Status Reviewed: 05/11/19 Current Cigarette Smoker 5-10 Cigarettes Daily ETOH Use 07/26/2018 Denies alcohol use Recreational Drug Use Former Drug User Tobacco Use Start: Unknown Patient is a current trying to quit smoker, smokes every 04/2019 day Exercise Type/Frequency Exercises sporadically Allergies, Adverse Reactions, Alerts Active Allergies Reaction Severity Comments Date Latex Urticaria 05/10/2017 Sulfa Antibiotics hives 05/10/2017 Penicillins Urticaria 05/10/2017 Nalbuphine 05/10/2017 Perphenazine 05/10/2017 Ciprofloxacin dizziness 05/10/2017 Tramadol altered mental status 05/10/2017 [place] 05/10/2017 Lurasidone Moderate 05/08/2018 Metformin Diarrhea 05/22/2018 Macrobid not effective 05/11/2019 Medications Active Medications SIG Qnty Indications Ordering Date Provider Clotrimazole apply to affected 56gm B35.6 Rosa Schroeder, 03/23/2019 Anti-Fungal area twice a day 1% Cream Hyoscyamine Sulfate one by mouth three 90tabs Rosa Schroeder, 02/07/2019 times a day as MD 0.125mg Tablets needed for abdominal pain Novolog Penfill 26 units subcu 3 45ml Other Ordering 02/05/2019 times a day with Provider 100Unit/ML Solution meals Cartridge Onetouch Delica test up to three 1units Moreno Sandoval, 01/11/2019 Lancing Dev times a day and as MD [facility] directed dx:e11.9 diabetes Nicotine Transdermal apply 1 patch 42units Robyn Guerrero, 01/11/2019 System Step 1 transdermal daily 21mg/24HR remove at night. Patches 24HR After initial course call for step down dosing Percocet 1-2 every 6 hours 120tabs Rosa Schroeder, 12/22/2018 5-325mg Tablets as needed for MD severe pain Duloxetine HCL 1 by mouth every 30caps Other Ordering 12/20/2018 30mg Caps day, total 110mg Provider DR Parikh daily Metoclopramide HCL one tablet every 6 90tabs Other Ordering 12/20/2018 10mg hours, 30 minutes Provider Tablets before meals and one at bedtime as Needed For Nausea Quad Cane 1 cane for 1units M51.26 Rosa Schroeder, 11/17/2018 [facility] ambulation 4 prong Cyclobenzaprine HCL take 1 tablet by 60tabs Rosa Schroeder, 10/27/2018 10mg mouth two times MD Tablets daily as needed Levothyroxine Sodium 1 tablet by mouth 42tabs E03.9 Mayer Coch, 2018 every day, except MD 200mcg Tablets 2 tablets on tuesday (total 8 tablets/week) Polyethylene Glycol 17g twice daily by 1020gm Rosa Schroeder, 10/19/2018 3350 mouth, as needed MD 3350NF Powder for constipation. hold if any diarrhea Walker Swivel Wheels/5 folding walker, 1units M51.26 Lawrence Simental 2018 Adjustment Holes/5" use as directed Rashaun Denson" Adelina,FACP [facility] Anbesol Maximum apply to gingiva 27gm Rosadevin Schroeder, 09/21/2018 Strength 3x/day as needed 20% Gel for pain Creon one by mouth three 90caps R19.7 Rosa Schroeder, 09/06/2018 3000-9500Unit Caps times a day right MD DR Parikh before meals Onetouch Delica test 4 times a day 150units E11.9 Mayer Lori, 09/04/2018 Lancets Extra Fine 33G MD Nuñez Arnuity Ellipta 1 puff inhaled 30units Rosa Schroeder, 07/26/2018 every day 100mcg/Act Aerosol Depend Adjustable use four times a 120units Rosa Schroeder, 07/03/2018 Underwear L/XL day MD Nuñez Flonase Allergy Relief 2 sprays in each 9.900ml Rosa Schroeder, 06/23/2018 nostril twice a MD 50mcg/Act Suspension day Fiasp Flextouch 26 units tid-ac, 30ml E11.65 Mayer Coch, 05/19/2018 hold if glucose MD 100Unit/ML Solution less than 80mg/dL. Pen-Inject mdd 90 Basaglar Kwikpen 70 units once 30ml Mayer Coch, 05/19/2018 daily in the MD 100Unit/ML Solution morning, delay Pen-Inject dose by 1 hour if glucose <70mg/dL, MDD 100 Nicotrol 1 cartridges every 168units Rosa Schroeder, 05/18/2018 10mg Inhaler 2 hours as needed Nystatin apply twice daily 90gm Robyn Guerrero, 05/15/2018 [id number] until rash clears Powder Ventolin HFA 2 [...] Rosa Schroeder MD 2016 Misc as needed Mucinex 1 by mouth twice a Unknown 600mg Tablets ER 12HR day as needed Pyridium take 1 tab bid prn Unknown 100mg Tablets - Omeprazole 1 by mouth every 90caps Rosa Schroeder MD 40mg Capsules DR day Naproxen 1 tablet with food 60tabs Rosa Schroeder MD 500mg Tablets by mouth twice a day as needed for pain Olanzapine 1 tablet at Unknown 10mg Tablets bedtime Loperamide HCL take one capsule 30caps Rosa Schroeder MD 2mg Capsules every four hours as needed Nicotine Gum 2 MG 1piece q 2 hours Unknown prn Ondansetron dissolve one 30tabs Rosa Schroeder MD 4mg Tablets Dispers tablet orally every 8 hours as needed for nausea. Hydroxyzine HCL 1 tablets by mouth Unknown 25mg Tablets tid as needed for anxiety Ibu take one tablet by 90tabs Rosa Schroeder MD 600mg Tablets mouth t.i.d as needed pain Cetirizine HCL 1 by mouth every Unknown 10mg Tablets day Maalox Max 30 milliliters by Unknown [id number] mouth q4hr as Suspension needed indigestion Duloxetine HCL 1 by mouth every 90caps Rosa Schroeder MD 60mg Caps DR day with 20mg tab Part Duloxetine HCL 1 by mouth every 90caps Rosa Schroeder MD 20mg Caps DR day with 60mg tab Part Loratadine Take 1 Tablet By 30tabs Rosa Schroeder MD 10mg Tablets Mouth Daily as Needed For Allergies Losartan Potassium 1 by mouth every 90tabs E11.65 Rosa Schroeder MD 50mg Tablets day Lamotrigine 1 by mouth twice a 180tabs Rosa Schroeder MD 100mg Tablets day Atorvastatin Calcium take 1 tablet at 90tabs Rosa Shcroeder MD 20mg bedtime Tablets Onetouch indico Mini check bs up to 1units E11.65 Lawrence Simental w/Device three times daily Adelina Denson,FACP Kit Trazodone HCL 3 tab at bedtime 90tabs Rosa Schroeder MD 100mg Tablets Olanzapine one tab by mouth 60tabs Other Ordering 5mg Tablets in am Provider History Medications Chantix Starting follow directions 1pack F17.210 Rosa Schroeder MD 2018 - Month Narinder on the package Unknown 0.5mg X 11 & 1 mg X 42 Tablets Macrobid 1 by mouth twice a 14caps N39.0 Rosa Schroeder MD 02/07/2019 - 100mg day x 7 days 03/16/2019 Capsules (Complete) Lantus 70 Units subcu at 10ml Other Ordering 02/05/2019 - 100Unit/ML bedtime Provider 03/21/2019 Solution Fluconazole 1 tab by mouth x 2tabs B37.3 Rosa Schroeder MD 01/30/2019 - 150mg 1, may repeat 03/22/2019 Tablets after 2 days if not better Medications Administered in Office Medication SIG Qnty Indications Ordering Provider Date Depomedrol 40MG Naveed Cuadra MD 10/11/2017 Injection Immunizations CPT Code Status Date Vaccine Lot # [id number] Given 05/01/2018 Influenza Virus Vaccine, Quadrivalent, Split, Preservative Free Vital Signs Date Vital Result Comment 05/11/2019 3:07pm Height 66.75 inches 5'6.75" Weight 266.00 lb Heart Rate 90 /min BP Systolic Sitting 150 mmHg BP Diastolic Sitting 90 mmHg Respiratory Rate 18 /min Body Temperature 97.7 F BMI (Body Mass Index) 42.0 kg/m2 04/06/2019 12:58pm Height 66.75 inches 5'6.75" Weight 273.38 lb Heart Rate 102 /min BP Systolic Sitting 96 mmHg Rue lg cuff BP Diastolic Sitting 68 mmHg Rue lg cuff O2 % BldC Oximetry 95 % BMI (Body Mass Index) 43.1 kg/m2 Results Test Date Facility Test Result H/L Range Note Drug Abuse 04/06/2019 [facility] Urine Amphetamine Negative ng/ mL 1 [address] [place] [address] [phone] Urine Barbiturates Negative ng/mL 2 Urine Benzodiazepines Negative ng/mL 3 Urine Cocaine Negative ng/mL 4 Urine Phencyclidine Negative ng/mL Cutoff: 25 Urine Tetrahydrocannabinol Negative ng/mL Cutoff: 50 5 Creatinine, Urine 55.6 mg/dL Specific [place] 1.007 pH 7.0 Oxidants Negative 6 Adulterants Comment Normal Codeine, Ur Not Detected ng/mL Cutoff: 25 7 Kvvuqys-3-guoa-glucuronide, Ur Not Detected ng/mL 8 Morphine, Ur Not Detected ng/mL Cutoff: 25 9 Atbzudxk-5-uyhn-glucuronide, U Not Detected ng/mL 10 6-monoacetylmorphine, Ur Not Detected ng/mL Cutoff: 25 11 Hydrocodone, Ur Not Detected ng/mL Cutoff: 25 12 Norhydrocodone, Ur Not Detected ng/mL Cutoff: 25 13 Dihydrocodeine, Ur Not Detected ng/mL Cutoff: 25 14 Hydromorphone, Ur Not Detected ng/mL Cutoff: 25 15 Imwjgurmoibzi5jptpptsjzxzaxnt Not Detected ng/mL 16 Oxycodone, Ur Present ng/mL Abnormal Cutoff: 25 17 Noroxycodone, Ur Present ng/mL Abnormal Cutoff: 25 18 Oxymorphone, Ur Not Detected ng/mL Cutoff: 25 19 Cceclvodmvm-5-ssjv-glucuronide Present ng/mL Abnormal 20 Noroxymorphone, Ur Not Detected ng/mL Cutoff: 25 21 Fentanyl, Ur Not Detected ng/mL Cutoff: 2 22 Norfentanyl, Ur Not Detected ng/mL Cutoff: 2 23 Meperidine, Ur Not Detected ng/mL Cutoff: 25 24 Normeperidine, Ur Not Detected ng/mL Cutoff: 25 25 Naloxone, Ur Not Detected ng/mL Cutoff: 25 26 Grdozcbc-0-bupx-glucuronide, U Not Detected ng/mL 27 Methadone, Ur Not Detected ng/mL Cutoff: 25 28 Eddp, Ur Not Detected ng/mL Cutoff: 25 29 Propoxyphene, Ur Not Detected ng/mL Cutoff: 25 30 Norpropoxyphene, Ur Not Detected ng/mL Cutoff: 25 31 Tramadol, Ur Not Detected ng/mL Cutoff: 25 32 O-desmethyltramadol, Ur Not Detected ng/mL Cutoff: 25 33 Tapentadol, Ur Not Detected ng/mL Cutoff: 25 34 N-desmethyltapentadol, Ur Not Detected ng/mL Cutoff: 50 35 Uzrljtvfor-ugux-yfgurneqnrx, U Not Detected ng/mL 36 Buprenorphine, Ur Not Detected ng/mL Cutoff: 5 37 Norbuprenorphine, Ur Not Detected ng/mL Cutoff: 5 38 Norbuprenorphine glucuronide Not Detected ng/mL Cutoff: 20 39 Opioid Interpretation See Comment 40 Laboratory test 03/27/2019 [facility] TSH 2.88 Normal 0.34- 5.60 41, finding [address] (Thyroid mcIU/mL 42 [place] [address] Stim Horm) [phone] Urine Culture 02/16/2019 [facility] Urine SEE [address] [place] [address] BELOW [phone] Ua Routine 02/16/2019 [facility] Ua 1.030 Specific [place] Ua PH 5 Ua Color dark yellow Ua Appera cloudy Ua WBC + Ua Protein trace Ua Glucose 50 Ua Ketones sm + Ua Bilirubin negative Ua Urobilinogen normal Ua Nitrite negative Ua Occult Blood about 250 Laboratory test 02/09/2019 [facility] Point of 167 mg/dL High 70-100 [address] [place] [address] Glucose [phone] Laboratory test 02/09/2019 [facility] Point of 244 mg/dL High 70-100 [address] [place] [address] Glucose [phone] Laboratory test 02/09/2019 [facility] Point of > 444 Critical 70-100 [address] Care mg/[place] [address] Glucose [phone] Urine Culture 02/09/2019 [facility] Urine SEE [address] [place] [address] BELOW [phone] Laboratory test 02/09/2019 [facility] Lactic 2.9 Critical 0.5- 2.0 [address] Acid mmol/[place] [address] [phone] Laboratory test 02/09/2019 [facility] Point of 299 mg/dL High 70-100 [address] [place] [address] Glucose [phone] Venous Blood Gas 02/09/2019 [facility] Venous 7.40 Normal 7.32 -7.[address] Blood pH 3 [place] [address] [phone] Venous Pco2 43 mmHg Normal 41-51 Venous Po2 44.0 mmHg Normal 35-45 Venous O2 Saturation 84.4 % High 70-80 Venous Blood Base Excess 1.5 mmol/L Normal 0.0-4.0 50 Venous Bicarbonate Hco3 25.5 mmol/L Normal 24-28 Urinalysis Profile 02/09/2019 [facility] Urine Color Sharlene [address] [place] [address] [phone] Urine Appearance Cloudy Urine Specific [place] 1.016 Normal 1.010-1.030 Urine pH 6.0 Normal 5-9 Urine Urobilinogen Positive Abnormal Negative Urine Ketones Negative Negative Urine Protein Negative Negative Urine Leukocytes Trace Abnormal Negative Urine Blood Negative Negative * * Abnormal Negative 51 Urine Nitrite Positive Abnormal Negative Urine Bilirubin Negative Negative Urine Glucose 3+(>=500 mg/dL) Abnormal Negative Urine White Blood Cell Trace(0-5/hpf) Absent Urine Red Blood Cell Trace(0-2/hpf) Absent Urine Bacteria 1+ Abnormal Absent Urine Squamous Epithelial Cell Present Abnormal Absent CBC Auto 02/09/2019 [facility] White Blood 11.8 10^3/uL High 3.5-10.[address] [place] [address] [phone] Red Blood Count 4.59 10^6/uL Normal 3.70-4.87 [...] Blood Cells % 0.0 Laboratory test 02/09/2019 [facility] C Reactive 3.79 mg/L Normal <8.[address] [place] [address] [phone] Comp Metabolic 02/09/2019 [facility] Sodium 136 Normal 135- [address] mmol/[place] [address] [phone] Potassium 5.0 mmol/L Normal 3.5-5.0 Chloride 102 [...] Egfr Non- 56.3 >60 Egfr 68.1 >60 52 Laboratory test 02/06/2019 [facility] Hemoglobin 9.0 % High 4.0-5.6 53, [address] A1c ([place] [address] [place]) [phone] Urine Culture 02/03/2019 [facility] Urine Culture SEE [address] [place] [address] BELOW [phone] Urinalysis 02/03/2019 [facility] Urine Color Yellow Profile [address] [place] [address] [phone] Urine Appearance Cloudy Urine Specific [place] 1.009 Low 1.010-1.030 Urine pH 5.0 Normal [...] Urine Squamous Epithelial Cell Present Abnormal Absent CBC Auto 02/03/2019 [facility] White Blood 9.6 10^3/uL Normal 3.5-10.[address] [place] [address] [phone] Red Blood Count 4.03 10^6/uL Normal 3.70-4.87 [...] Red Blood Cells % 0.0 Laboratory test 02/03/2019 [facility] Lactic Acid 0.8 mmol/L Normal 0.5-2.0 [address] [place] [address] [phone] Laboratory test 02/03/2019 [facility] Amylase 28 U/L Low 29- [address] [place] [address] [phone] Lipase < 10 U/L Low 11.0-82.0 C Reactive Protein 3.64 mg/L Normal <8.01 Comp Metabolic 02/03/2019 [facility] Sodium 140 mmol/L Normal 135-[address] [place] [address] [phone] Potassium 4.5 mmol/L Normal 3.5-5.0 Chloride 108 [...] Egfr Non- 65.8 >60 Egfr 79.6 >60 57 Laboratory test 02/01/2019 [facility] Blood Culture SEE RESULT [address] [place] [address] [phone] Urine Culture And 02/01/2019 [facility] Urine Culture SEE RESULT [address] [place] [address] [phone] Laboratory test 02/01/2019 [facility] Erythrocyte Sed 33 mm/Hr High 0-[address] [place] [address] [phone] CBC Auto Diff 02/01/2019 [facility] White Blood 16.2 High 3.5 - [address] Count 10^3/uL 10.8 [place] [address] [phone] Red Blood Count 4.03 10^6/uL Normal 3.70-4.87 [...] Blood Cells % 0.0 Laboratory test 02/01/2019 [facility] Point of 232 mg/dL High 70-100 60 finding [address] [place] [address] Glucose [phone] Laboratory test 02/01/2019 [facility] Point of 54 mg/dL Low 70 -100 61 finding [address] [place] [address] Glucose [phone] Inr/Protime 02/01/2019 [facility] Inr 0.95 Normal 0.82-1.09 62 [address] [place] [address] [phone] Urinalysis 02/01/2019 [facility] Urine Color Yellow Profile [address] [place] [address] [phone] Urine Appearance Clear Urine Specific [place] 1.005 Low 1.010-1.030 Urine pH 6.0 Normal 5-9 Urine Urobilinogen Negative Negative Urine Ketones Negative Negative Urine Protein Negative Negative Urine Leukocytes Trace Abnormal Negative Urine Blood Negative Negative Urine Nitrite Negative Negative Urine Bilirubin Negative Negative Urine Glucose Negative Negative Urine White Blood Cell Trace(0-5/hpf) Absent Urine Red Blood Cell Absent Absent Urine Bacteria Absent Absent Laboratory test 02/01/2019 [facility] Creatine 137 U/L Normal 10-[address] Kinase(CK) [place], [place] [address] [phone] C Reactive Protein 5.48 mg/L Normal <8.01 Troponin-I (TnI) 0.01 ng/mL <0.04 63 B-Type Natriuretic Peptide BNP 14 pg/mL <=100 Laboratory test 02/01/2019 [facility] Partial 27.7 Normal 26.0 -38.[address] [place] [address] Time PTT [phone] Fibrinogen 348.6 mg/dL Normal 110.8-404.3 Lactic Acid 0.8 mmol/L Normal 0.5-2.0 64 Comp Metabolic 02/01/2019 [facility] Sodium 139 mmol/L Normal 135-[address] [place] [address] [phone] Potassium 3.4 mmol/L Low 3.5-5.0 Chloride 110 [...] Egfr Non- 77.6 >60 Egfr 93.8 >60 65 Urine Culture And 01/30/2019 [facility] Urine Culture SEE RESULT 66, [address] [place] [address] [phone] Ua Routine 01/30/2019 [facility] Ua Specific 1.010 [place] Ua PH 5 Ua Color yellow Ua Appera cloud Ua WBC L Ua Protein - Ua Glucose L Ua Ketones neg Ua Bilirubin neg Ua Urobilinogen neg Ua Nitrite - Ua Occult Blood 50 Urine Culture And 01/28/2019 [facility] Urine Culture SEE RESULT [address] [place] [address] [phone] Urinalysis Profile 01/28/2019 [facility] Urine Color Yellow [address] [place] [address] [phone] Urine Appearance Turbid Urine Specific [place] 1.016 Normal 1.010-1.030 Urine pH 6.0 Normal [...] Abnormal Absent Urine Yeast Present Abnormal Absent CBC Auto 01/28/2019 [facility] White Blood 10.8 10^3/uL Normal 3.5-10.[address] [place] [address] [phone] Red Blood Count 4.72 10^6/uL Normal 3.70-4.87 [...] % Nucleated Red Blood Cells % 0.0 Inr/Protime 01/28/2019 [facility] Inr 0.92 Normal 0.82-1.[address] [place] [address] [phone] Laboratory test 01/28/2019 [facility] Partial 28.8 Normal 26.0 -38.[address] [place] [address] Time PTT [phone] Laboratory test 01/28/2019 [facility] Lipase 10 U/L Low 11.0- 82.[address] [place] [address] [phone] C Reactive Protein 5.53 mg/L Normal <8.01 Troponin-I (TnI) 0.00 ng/mL <0.04 70 HCG 3.01 mIU/mL 71 Lactic Acid 2.0 mmol/L Normal 0.5-2.0 72 Comp Metabolic 01/28/2019 [facility] Sodium 137 mmol/L Normal 135-145 Panel [address] [place] [address] [phone] Potassium 5.0 mmol/L Normal 3.5-5.0 Chloride 101 [...] Egfr Non- 61.0 >60 Egfr 73.8 >60 73 Urinalysis Profile 01/23/2019 [facility] Urine Color Yellow [address] [place] [address] [phone] Urine Appearance Turbid Urine Specific [place] 1.012 Normal 1.010-1.030 Urine pH 6.0 Normal [...] Epithelial Cell Present Abnormal Absent Laboratory test 01/23/2019 [facility] Lactic Acid 1.8 mmol/L Normal 0.5-2.0 74 finding [address] [place] [address] [phone] Comp Metabolic 01/23/2019 [facility] Sodium 139 mmol/L Normal 135-145 Panel [address] [place] [address] [phone] Potassium 4.4 mmol/L Normal 3.5-5.0 Chloride 105 [...] Egfr Non- 59.6 >60 Egfr 72.1 >60 75 Laboratory test 01/23/2019 [facility] Lipase < 10 U/L Low 11.0 -82.[address] [place] [address] [phone] C Reactive Protein 2.94 mg/L Normal <8.01 CBC Auto 01/23/2019 [facility] White Blood 14.3 10^3/uL High 3.5-10.[address] [place] [address] [phone] Red Blood Count 4.59 10^6/uL Normal 3.70-4.87 [...] Nucleated Red Blood Cells % 0.0 Urine Culture And 01/23/2019 [facility] Urine Culture SEE RESULT [address] [place] [address] [phone] Laboratory test 01/19/2019 [facility] Care 193 mg/dL High 70-1 [address] Glucose 00 [place] [address] [phone] Laboratory test 01/19/2019 [facility] 58 mg/dL Low 70-1 [address] Glucose 00 [place] [address] [phone] Laboratory test 01/19/2019 [facility] 59 mg/dL Low 70-1 [address] Glucose 00 [place] [address] [phone] Laboratory test 01/19/2019 [facility] 72 mg/dL Normal 70-1 [address] Glucose 00 [place] [address] [phone] Laboratory test 01/19/2019 [facility] 83 mg/dL Normal 70-1 [address] Glucose 00 [place], [place] [address] [phone] Laboratory test 01/19/2019 [facility] Clotest SEE RESULT [address] [place] [address] [phone] Laboratory test 01/19/2019 [facility] Surgical SEE RESULT [address] [place] [address] Order [phone] Laboratory test 01/19/2019 [facility] 64 mg/dL Low 70-1 [address] Glucose 00 [place], [place] [address] [phone] CBC Auto Diff 01/16/2019 [facility] White Blood 10.3 Normal 3.5- [address] Count 10^3/uL 10.8 [place], [place] [address] [phone] Red Blood Count 4.51 10^6/uL Normal 3.70-4.87 [...] Blood Cells % 0.0 Comp Metabolic 01/16/2019 [facility] Sodium 138 mmol/L Normal 135-145 Panel [address] [place] [address] [phone] Potassium 4.5 mmol/L Normal 3.5-5.0 Chloride 104 [...] Egfr Non- 76.4 >60 Egfr 92.5 >60 85 Laboratory test 01/16/2019 [facility] Amylase 32 U/L Normal 29 -103 finding [address] [place] [address] [phone] Lipase < 10 U/L Low 11.0-82.0 C Reactive Protein 3.40 mg/L Normal <8.01 Laboratory test 01/03/2019 [facility] Point of 263 mg/dL High 70-[address] [facility] [place] [address] [phone] Basic Metabolic 01/03/2019 [facility] Sodium 138 mmol/L Normal 135-145 Panel [address] [place] [address] [phone] Potassium 4.4 mmol/L Normal 3.5-5.0 Chloride 109 mmol/L Normal 101-111 Co2 Carbon Dioxide 22 mmol/L Normal 22-32 Anion Gap 7 mmol/L Normal 2-11 Glucose 337 mg/dL High 70-100 Blood Urea Nitrogen 14 mg/dL Normal 6-24 Creatinine 0.87 mg/dL Normal 0.51-0.95 BUN/Creatinine Ratio 16.1 Normal 8-20 Calcium 8.8 mg/dL Normal 8.6-10.3 Egfr Non- 68.4 >60 Egfr 82.7 >60 87 Laboratory 01/03/2019 [facility] 413 Critical 70 -100 88 test finding [address] Glucose mg/[place] [address] [phone] Laboratory 01/03/2019 [facility] > 444 Critical 70-100 89 test finding [address] Glucose mg/[place] [address] [phone] Laboratory 01/03/2019 [facility] Acetaminophen 142 Critical 90 test finding [address] g/[place] [address] [phone] CBC Auto Diff 01/03/2019 [facility] White Blood 7.6 Normal 3.5 -10.[address] Count 10^3/[place] [address] [phone] Red Blood Count 4.20 10^6/uL Normal 3.70-4.87 [...] Red Blood Cells % 0.0 Comp Metabolic 01/03/2019 [facility] Sodium 137 mmol/L Normal 135-[address] [place] [address] [phone] Potassium 4.5 mmol/L Normal 3.5-5.0 Chloride 105 [...] Egfr Non- 62.5 >60 Egfr 75.7 >60 91 Laboratory test 01/03/2019 [facility] Alcohol < 10 mg/dL Normal <10 finding [address] [place] [address] [phone] Salicylate < 2.50 mg/dL <30 TSH (Thyroid Stim Horm) 1.52 mcIU/mL Normal 0.34-5.60 Acetaminophen 226 g/mL Critical high 92 Urine Culture And 01/02/2019 [facility] Urine Culture SEE RESULT [address] [place] [address] [phone] Urinalysis Profile 01/02/2019 [facility] Urine Color Yellow [address] [place] [address] [phone] Urine Appearance Turbid Urine Specific [place] 1.011 Normal 1.010-1.030 Urine pH 6.0 Normal [...] Squamous Epithelial Cell Present Abnormal Absent Urine Drug 01/02/2019 [facility] Urine None Detected None Detect SCR ED & [address] [place] [address] Screen [phone] Urine Barbiturates Screen None Detected None Detect Urine Benzodiazepine Screen None Detected None Detect Urine Cannabinoids Screen None Detected None Detect Urine Cocaine Screen None Detected None Detect Urine Opiates Screen None Detected None Detect Urine Phencyclidine Screen None Detected None Detect 94 CBC Auto 01/02/2019 [facility] White Blood 11.1 10^3/uL High 3.5-10.8 Diff [address] [place] [address] [phone] Red Blood Count 4.26 10^6/uL Normal 3.70-4.87 [...] Red Blood Cells % 0.0 Comp Metabolic 01/02/2019 [facility] Sodium 140 mmol/L Normal 135-[address] [place] [address] [phone] Potassium 4.4 mmol/L Normal 3.5-5.0 Chloride 108 [...] Egfr Non- 82.4 >60 Egfr 99.7 >60 95 Laboratory test 01/02/2019 [facility] Acetaminophen < 15 g/mL 96 finding [address] [place] [address] [phone] Alcohol < 10 mg/dL Normal <10 Salicylate < 2.50 mg/dL <30 TSH (Thyroid Stim Horm) 0.91 mcIU/mL Normal 0.34-5.60 Laboratory test 12/15/2018 [facility] Point of 204 mg/dL High 70-100 97 finding 101 [facility] [place] [address] [phone] Laboratory test 12/15/2018 [facility] Point of 112 mg/dL High 70-100 98 finding 101 [facility] [place] [address] [phone] Laboratory test 12/15/2018 [facility] Lactic Acid 1.3 mmol/L Normal 0.5-2.0 99 finding [address] [place] [address] [phone] Comp Metabolic 12/15/2018 [facility] Sodium 142 mmol/L Normal 135-145 Panel [address] [place] [address] [phone] Potassium 4.0 mmol/L Normal 3.5-5.0 Chloride 107 [...] Egfr Non- 61.0 >60 Egfr 73.8 >60 100 Glucose 46 mg/dL Critical low 70-100 101 Laboratory test 12/15/2018 [facility] Lipase < 10 U/L Low 11.0 -82.[address] [place] [address] [phone] CBC Auto Diff 12/15/2018 [facility] White Blood 12.0 High 3.5- 10.[address] Count 10^3/[place] [address] [phone] Red Blood Count 4.36 10^6/uL Normal 3.70-4.87 [...] Nucleated Red Blood Cells % 0.1 Laboratory 12/15/2018 [facility] Troponin-I 0.03 <0.04 102 test finding [address] (TnI) ng/mL [place] [id number] [phone] CBC Auto Diff 12/14/2018 [facility] White Blood 9.6 Normal 3.5 -10.[address] Count 10^3/uL [place] [address] [phone] Red Blood Count 4.05 10^6/uL Normal 3.70-4.87 [...] Blood Cells % 0.1 Laboratory test 12/14/2018 [facility] Lactic Acid 1.6 mmol/L Normal 0.5-2.[address] [place] [address] [phone] Comp Metabolic 12/14/2018 [facility] Sodium 137 mmol/L Normal 135-[address] [place] [address] [phone] Potassium 4.3 mmol/L Normal 3.5-5.0 Chloride 105 [...] Egfr Non- 59.6 >60 Egfr 72.1 >60 104 Laboratory test 12/14/2018 [facility] Troponin-I (TnI) 0.01 ng/ mL <0.04 [address] [place] [address] [phone] B-Type Natriuretic Peptide BNP 10 pg/mL <=100 Laboratory test 12/14/2018 [facility] Point of 128 mg/dL High 70-100 [address] [place] [address] [phone] CBC Auto Diff 12/14/2018 [facility] White Blood 13.8 High 3.5- 10.[address] Count 10^3/[place] [address] [phone] Red Blood Count 4.50 10^6/uL Normal 3.70-4.87 [...] % Nucleated Red Blood Cells % 0.0 Inr/Protime 12/14/2018 [facility] Inr 0.89 Normal 0.82-1.[address] [place] [address] [phone] Laboratory test 12/14/2018 [facility] Partial 23.9 Low 26.0- 36.[address] [place] [address] Time PTT [phone] Troponin-I (TnI) 0.01 ng/mL <0.04 108 Comp Metabolic 12/14/2018 [facility] Sodium 142 mmol/L Normal 135-[address] [place] [address] [phone] Potassium 4.0 mmol/L Normal 3.5-5.0 Chloride 110 [...] Egfr Non- 73.2 >60 Egfr 88.6 >60 109 Laboratory test 12/14/2018 [facility] Magnesium 1.6 mg/dL Low 1.9-2.[address] [place] [address] [phone] Amylase 33 U/L Normal 29-103 Lipase < 10 U/L Low 11.0-82.0 C Reactive Protein 3.27 mg/L Normal <8.01 HCG 2.75 mIU/mL 110 Urinalysis Profile 12/14/2018 [facility] Urine Color Yellow [address] [place] [address] [phone] Urine Appearance Clear Urine Specific [place] 1.004 Low 1.010-1.030 Urine pH 6.0 Normal [...] Cell Present Abnormal Absent Laboratory test 12/14/2018 [facility] Lactic 1.5 Normal 0.5- 2.0 [address] Acid mmol/[place] [address] [phone] Urine Culture And 12/14/2018 [facility] Urine SEE [address] [place] [address] BELOW [phone] CBC Auto Diff 12/09/2018 [facility] White 9.7 Normal 3.5-10.[address] Blood 10^3/[place] [address] Count [phone] Red Blood Count 4.43 10^6/uL Normal 3.70-4.87 [...] Blood Cells % 0.1 Comp Metabolic 12/09/2018 [facility] Sodium 139 mmol/L Normal 135-[address] [place] [address] [phone] Chloride 106 mmol/L Normal 101-111 Co2 Carbon [...] Egfr Non- 61.8 >60 Egfr 74.7 >60 113 Potassium 4.9 mmol/L Normal 3.5-5.0 Anion Gap 7 mmol/L Normal 2-11 Ast 51 U/L High 13-39 Laboratory test finding 12/09/2018 [facility] Amylase 23 U/L Low 29-[address] [place] [address] [phone] Lipase < 10 U/L Low 11.0-82.0 CBC Auto 12/05/2018 [facility] White Blood 11.5 10^3/uL High 3.5-10.[address] [place] [address] [phone] Red Blood Count 4.65 10^6/uL Normal 3.70-4.87 [...] Red Blood Cells % 0.0 Comp Metabolic 12/05/2018 [facility] Sodium 139 mmol/L Normal 135-145 Panel [address] [place] [address] [phone] Potassium 3.9 mmol/L Normal 3.5-5.0 Chloride 107 [...] Egfr Non- 76.4 >60 Egfr 92.5 >60 114 Laboratory test 12/05/2018 [facility] Acetaminophen < 15 g/mL 115 finding [address] [place] [address] [phone] Alcohol < 10 mg/dL Normal <10 Salicylate < 2.50 mg/dL <30 TSH (Thyroid Stim Horm) 8.38 mcIU/mL High 0.34-5.60 Laboratory test 11/21/2018 [facility] Point of 88 mg/dL Normal 70-[address] [facility] [place] [address] [phone] Laboratory test 11/21/2018 [facility] Point of 56 mg/dL Low 70 -100 117 finding [address] [place] [address] [phone] Urinalysis 11/21/2018 [facility] Urine Color Yellow Profile [address] [place] [address] [phone] Urine Appearance Cloudy Urine Specific [place] 1.016 Normal 1.010-1.030 Urine pH 6.0 Normal [...] Present Abnormal Absent Urine Culture And 11/21/2018 [facility] Urine Culture SEE RESULT 118 Sensitivities [address] [facility] [place] [address] [phone] 1 REFERENCE VALUE Cutoff: 500 2 REFERENCE VALUE Cutoff: 200 3 REFERENCE VALUE Cutoff: 100 4 REFERENCE VALUE Cutoff: 150 5 ADDITIONAL INFORMATION This report is intended for use in clinical monitoring or management of patients. It is not intended for use in employment-related testing. Test Performed by: [facility] [address] [place] [address] Cosmetic Chemist: Nathaniel Moura M.D. Ph.D.; CLIA# [id number] 6 REFERENCE VALUE Cutoff: 200 mg/L 7 Tylenol 3 8 Metabolite of codeine REFERENCE VALUE Cutoff: 100 9 Crissy Aguilar, MS Contin; Also a minor metabolite (10%) of codeine and can be seen in low concentrations (<2,000 ng/mL) with poppy seed ingestion. 10 Metabolite of morphine REFERENCE VALUE Cutoff: 100 11 Metabolite of heroin 12 Lortab, [place], Vicodin; Also a very minor metabolite of codeine and impurity (<1%) of oxycodone. 13 Metabolite of hydrocodone 14 Metabolite of hydrocodone 15 Dilaudid, Exalgo; Also a metabolite of hydrocodone and a minor (<5%) metabolite of morphine. 16 Metabolite of hydromorphone REFERENCE VALUE Cutoff: 100 17 Endocet, Percocet, Oxycontin 18 Metabolite of oxycodone 19 Numorphan, Opana; Also a metabolite of oxycodone. 20 Metabolite of oxymorphone REFERENCE VALUE Cutoff: 100 21 Metabolite of oxymorphone 22 Actiq, Duragesic, [place] 23 Metabolite of fentanyl 24 Demerol 25 Metabolite of meperidine 26 Narcan 27 Metabolite of naloxone REFERENCE VALUE Cutoff: 100 28 Dolophine 29 Metabolite of methadone 30 Darvon, Darvocet 31 Metabolite of propoxyphene 32 Tradol, Ultram, Ultracet 33 Metabolite of tramadol 34 Nucynta 35 Metabolite of tapentadol 36 Metabolite of tapentadol REFERENCE VALUE Cutoff: 100 37 Buprenex, Suboxone 38 Metabolite of buprenorphine 39 Metabolite of buprenorphine 40 Test detected the presence of oxycodone and one of its metabolites (noroxycodone) along with woeucmnjvzg-5-bjgo-glucuronide (metabolite of oxymorphone). Suspect use of oxycodone and/or oxymorphone within the past three days. ADDITIONAL INFORMATION This test was developed and its performance characteristics determined by [facility] in a manner consistent with CLIA requirements. This test has not been cleared or approved by the U.S. Food and Drug Administration. 41 [id number] 42 [id number] 43 SEE RESULT BELOW Name: CECILIO ALFARO : [address]: Rosa Schroeder MD Acct: [id number] Unit: [id number] AGE: 53 Location: [facility] Re02/16/19 SEX: F Status: REG REF SPEC: [id number] ANKUR: 02/16/19-[address]: Rosa Schroeder MD REQ: [id number] RECD: 02/16/19 STATUS: COMP _ SOURCE: URINE SPDESC: ORDERED: Urine Culture COMMENTS: [id number] Urine Source: Random Procedure Result Reported Site Urine Culture Final 02/18/19- 0816 ML Organism 1 ESCHERICHIA COLI [place] Count 10-25,000 (Moderate) CFU/ML Organism 2 ENTEROCOCCUS FAECIUM [place] Count >100,000 (Many) CFU/ML 1. ESCHERICHIA COLI [facility] RX --------- ------ Ampicillin 8 S Cefazolin <=4 S Cefepime <=1 S Ceftriaxone <=1 S Ciprofloxacin <=0.25 S Gentamicin <=1 S Levofloxacin <=0.12 S Meropenem <=0.25 S Nitrofurantoin <=16 S Tetracycline >=16 R Pipercillin/Tazobactam <=4 S Trimethoprim/Sulfamethoxazole <=20 S Amoxicillin/Clavulanic Acid <=2 S Aztreonam <=1 S CONTINUED ON NEXT PAGE DEPARTMENT OF PATHOLOGY, [address] [place] [address] Tay Gamboa M.D. Director [facility] # [id number] Patient: ANGELINACECILIO [id number] (Continued) Specimen: [id number] Collected: 02/16/19 Received: 02/16/19-6 (Continued) Procedure Result Reported Site Urine Culture Final (continued) 02/18/19- 815 2. ENTEROCOCCUS FAECIUM M.I.C. RX --------- ------ [...] These antibiotics are not available in the [facility] Formulary Contact the Microbiology Department for any additional antibiotic reporting. Contact the Microbiology Department for any additional antibiotic reporting. * ML - Main Lab . END OF REPORT DEPARTMENT OF PATHOLOGY, [address] [place] [address] Tay Gamboa M.D. Director [facility] # [id number] 44 Digital Imaging Technician: [id number] Digital Imaging Technician: [id number] Digital Imaging Technician: [id number] 47 SEE RESULT BELOW Name: ANGELINACECILIO WHATLEY Cameron : [address]: Violeta Yusuf MD Acct: [id number] Unit: [id number] AGE: 53 Location: ED Re02/09/19 SEX: F Status: DEP ER SPEC: [id number] ANKUR: 02/09/[address] [facility] [address]: Maycol Al MD REQ: [id number] RECD: 02/09/19 STATUS: TASHA BARFIELD DR: [facility] Rosa Schroeder MD _ SOURCE: URINE SPDESC: ORDERED: Urine Culture Procedure Result Reported Site Urine Culture Final 02/10/19- 1600 ML No growth of clinically significant organisms * ML - Main Lab . END OF REPORT DEPARTMENT OF PATHOLOGY, [address] [place] [address] Tay Gamboa M.D. Director [facility] # [id number] 48 Critical Result LACT:2.9 Called to [id number] at: 19:36:39 by:[id number] Read back by:SHAWNEE [facility] Severe Sepsis and Septic Shock Management Bundle Measure requires all lactic acids initially measuring >2.0 mmol/L be repeated. 49 Digital Imaging Technician: [id number] 50 Reference ranges based on room air. 51 *Ascorbic acid is present which may interfere with detection of blood. 52 Because ethnic data is not always [...] 5 Kidney failure <15 (or dialysis) 53 [id number] 54 Therapeutic target for the treatment of diabetes mellitus patients is <7% HBA1C, and in selective patients <6.0%. Please refer to [employer] diabetic care guidelines for further information. 55 SEE RESULT BELOW Name: CECILIO ALFARO : [address]: Neo Kauffman MD Acct: [id number] Unit: [id number] AGE: 53 Location: ED Re02/03/19 SEX: F Status: DEP ER SPEC: [id number] ANKUR: 02/03/[address]: Senia OLSEN REQ: [id number] RECD: 02/03/19 STATUS: TASHA BARFIELD DR: Rosa Kauffman MD _ SOURCE: URINE SPDESC: ORDERED: Urine Culture Procedure Result Reported Site Urine Culture Final 02/06/19- 0850 ML Organism 1 ENTEROCOCCUS FAECALIS [place] Count >100,000 (Many) CFU/ML 1. ENTEROCOCCUS FAECALIS [...] These antibiotics are not available in the [facility] Contact the Microbiology Department for any additional antibiotic reporting. * ML - Main Lab . END OF REPORT DEPARTMENT OF PATHOLOGY, [address] [place] [address] Tay Gamboa M.D. Director [facility] # [id number] 56 Specimen hemolyzed. Result may not be valid. [facility] Severe Sepsis and Septic Shock Management Bundle Measure requires all lactic acids initially measuring >2.0 mmol/L be repeated. 57 Because ethnic data is not always [...] 5 Kidney failure <15 (or dialysis) 58 SEE RESULT BELOW Name: CECILIO ALFARO : [address]: Sherita Lui MD Acct: [id number] Unit: [id number] AGE: 53 Location: [place] [address] Re02/01/19 Dis: 02/03/19 SEX: F Status: DIS [place] SPEC: [id number] ANKUR: 02/01/[address] [facility] [address]: Maycol Al MD REQ: [id number] RECD: 02/01/19 STATUS: TASHA BARFIELD DR: Rosa Schroeder MD _ SOURCE: BLOOD,VENO SPDESC: ORDERED: Blood Cult Procedure Result Reported Site Aerobic Culture Bottle Final 02/06/19- 1904 ML No Growth Day 5 Anaerobic Culture Bottle Final 02/06/19- 1902 ML No Growth Day 5 * ML - Main Lab . END OF REPORT DEPARTMENT OF PATHOLOGY, [address] [place] [address] Tay Gamboa M.D. Director [facility] # [id number] 59 SEE RESULT BELOW Name: CECILIO ALFARO : [address]: Avery Leavitt MD Acct: [id number] Unit: [id number] AGE: 53 Location: [place] [address]- Re02/01/19 SEX: F Status: ADM IN SPEC: [id number] ANKUR: 02/01/[address]: Maycol Al MD REQ: [id number] RECD: 02/01/19 STATUS: TASHA BARFIELD DR: Rosa Schroeder MD _ SOURCE: URINE SPDESC: ORDERED: Urine Culture Procedure Result Reported Site Urine Culture Final 02/02/19- 1607 ML No Growth (<1,000 CFU/mL) * ML - Main Lab . END OF REPORT DEPARTMENT OF PATHOLOGY, [address] [place] [address] Tay Gamboa M.D. Director [facility] # [id number] 60 Digital Imaging Technician: [id number] Digital Imaging Technician: [id number] 62 Standard intensity warfarin therapeutic range: 2.0-3.0 High intensity warfarin therapeutic range: 2.5-3.5 63 Troponin-I testing on Plasma Separator Tubes (PST) has a known false positive rate of 0.20-0.40%. All positive troponins reflex immediately to secondary confirmatory testing. Using the [employer] DxI 800 Access Immunoassay systems, the 99th percentile upper reference limit was demonstrated to be < 0.03 ng/mL. 64 [facility] Severe Sepsis and Septic Shock Management Bundle Measure requires all lactic acids initially measuring >2.0 mmol/L be repeated. 65 Because ethnic data is not always [...] 5 Kidney failure <15 (or dialysis) 66 [id number] 67 SEE RESULT BELOW Name: ANGELINACECILIO Cameron : [address]: Rosa Schroeder MD Acct: [id number] Unit: [id number] AGE: 53 Location: [facility] Re01/30/19 SEX: F Status: REG REF SPEC: [id number] ANKUR: 01/30/19-[address]: Rosa Schroeder MD REQ: [id number] RECD: 01/31/191246 STATUS: COMP _ SOURCE: URINE SPDESC: ORDERED: Urine Culture COMMENTS: [id number] Urine Source: Random Procedure Result Reported Site Urine Culture Final 02/02/19- 830 ML Organism 1 FAY CUMMINGS [place] Count 10-25,000 (Moderate) CFU/ML Organism 2 NORMAL MICHELLE [place] Count 1-10,000 (Few) CFU/ML 1. FAY CUMMINGS [facility] RX --------- ------ Ampicillin R Cefazolin >=64 [...] . END OF REPORT DEPARTMENT OF PATHOLOGY, [address] [place] [address] Tay Gamboa M.D. Director [facility] # [id number] 68 SEE RESULT BELOW Name: CECILIO ALFARO Cameron : [address]: Corey Easton MD Acct: [id number] Unit: [id number] AGE: 53 Location: ED Re01/28/19 SEX: F Status: DEP ER SPEC: [id number] ANKUR: 01/28/[address] [facility] [address]: Corey Easton MD REQ: [id number] RECD: 01/28/19 STATUS: TASHA BARFIELD DR: Rosa Schroeder MD _ SOURCE: URINE SPDESC: ORDERED: Urine Culture Procedure Result Reported Site Urine Culture Final 01/31/19- 09 ML Organism 1 ESCHERICHIA COLI [place] Count 10-25,000 (Moderate) CFU/ML Organism 2 ENTEROCOCCUS FAECALIS [place] Count 75-100,000 (Many) CFU/ML 1. ESCHERICHIA COLI [...] CONTINUED ON NEXT PAGE DEPARTMENT OF PATHOLOGY, [address] [place] [address] Tay Gamboa M.D. Director [facility] # [id number] Patient: CECILIO ALFARO [id number] (Continued) Specimen: [id number] Collected: 01/28/19 Received: 01/28/19 (Continued) Procedure Result [...] These antibiotics are not available in the [facility] Contact the Microbiology Department for any additional antibiotic reporting. Contact the Microbiology Department for any additional antibiotic reporting. * ML - Main Lab . END OF REPORT DEPARTMENT OF PATHOLOGY, [address] [place] [address] Tay Gamboa M.D. Director [facility] # [id number] 69 Standard intensity warfarin therapeutic range: 2.0-3.0 High intensity warfarin therapeutic range: 2.5-3.5 70 Troponin-I testing on Plasma Separator Tubes (PST) has a known false positive rate of 0.20-0.40%. All positive troponins reflex immediately to secondary confirmatory testing. Using the [employer] 800 Access Immunoassay systems, the 99th percentile upper reference limit was demonstrated to be < 0.03 ng/mL. 71 <5.0 Negative 5.0 - 25.0 Indeterminate (Repeat testing recommended after 72 hours) >25.0 Positive Perimenopausal women can display HCG levels of up to 20 mIU/mL 72 [facility] Severe Sepsis and Septic Shock Management Bundle Measure requires all lactic acids initially measuring >2.0 mmol/L be repeated. 73 Because ethnic data is not always [...] 5 Kidney failure <15 (or dialysis) 74 [facility] Severe Sepsis and Septic Shock Management Bundle Measure requires all lactic acids initially measuring >2.0 mmol/L be repeated. 75 Because ethnic data is not always [...] 5 Kidney failure <15 (or dialysis) 76 SEE RESULT BELOW Name: CECILIO ALFARO : [address]: Temi Brewer Acct: [id number] Unit: [id number] AGE: 53 Location: ED Re01/23/19 SEX: F Status: DEP ER SPEC: [id number] ANKUR: 01/24/[address]: Temi Trujillo MD REQ: [id number] RECD: 01/24/19 STATUS: TASHA BARFIELD DR: Rosa Schroeder MD _ SOURCE: URINE SPDESC: ORDERED: Urine Culture Procedure Result Reported Site Urine Culture Final 01/26/19- 822 ML Organism 1 ESCHERICHIA COLI [place] Count 25-50,000 (Moderate) CFU/ML Organism 2 NORMAL MICHELLE [place] Count 25-50,000 (Moderate) CFU/ML 1. ESCHERICHIA COLI [...] . END OF REPORT DEPARTMENT OF PATHOLOGY, [address] [place] [address] Tay Gamboa M.D. Director [facility] # [id number] 77 Digital Imaging Technician: [id number] Digital Imaging Technician: [id number] 79 Repeat Test Insufficient sample Digital Imaging Technician: [id number] Digital Imaging Technician: [id number] Digital Imaging Technician: [id number] 82 SEE RESULT BELOW Name: CECILIO ALFARO : [address]: Jonathan Reynoso DO Acct: [id number] Unit: [id number] AGE: 53 Location: [place] Re01/19/19 SEX: F Status: DEP SDC SPEC: [id number] ANKUR: 01/19/19-[address]: Jonathan Reynoso DO REQ: [id number] RECD: 01/19/19 STATUS: TASHA BARFIELD DR: Rosa Schroeder MD _ SOURCE: GAS ANTRUM SPDESC: ORDERED: Clotest Procedure Result Reported Site Clotest Final 06/22/19- 0809 ML Clotest Negative * ML - Main Lab . END OF REPORT DEPARTMENT OF PATHOLOGY, [address] [place] [address] Tay Gamboa M.D. Director [facility] # [id number] 83 SEE RESULT BELOW Name: CECILIO ALFARO Cameron : [address]: Jonathan Reynoso DO Acct: [id number] Unit: [id number] AGE: 53 Location: [place] Re01/19/19 SEX: F Status: BITA JACOBSC SPEC: [id number] ANKUR: 01/19/[address]: Jonathan Reynoso DO REQ: [id number] RECD: 01/19/19-2424 STATUS: NILS BARFIELD DR: Rosa Schroeder MD [...] CONTINUED ON NEXT PAGE DEPARTMENT OF PATHOLOGY, [address] [place] [address] Tay Gamboa M.D. Director [facility] # [id number] RUN DATE: 01/22/19 [facility] LIVE PAGE 2 Patient: ANGELINACECILIO Barnes [id number] (Continued) FINAL DIAGNOSIS (Continued) PRE-OPERATIVE DIAGNOSIS 6) [...] CONTINUED ON NEXT PAGE DEPARTMENT OF PATHOLOGY, [facility] [place] [address] Tay Gamboa M.D. Director [facility] # [id number] RUN DATE: 01/22/19 [facility] LIVE PAGE 3 Patient: CECILIO ALFARO [id number] (Continued) GROSS DESCRIPTION (Continued) tissue fragments which is submitted entirely in one cassette. Signed by and Reported on: Tay Gambao MD 1439 END OF REPORT DEPARTMENT OF PATHOLOGY, [facility] [place], [place] [address] Tay Gamboa M.D. Director [facility] # [id number] 84 Digital Imaging Technician: [id number] 85 Because ethnic data is not always readily [...] 15-29 5 Kidney failure <15 (or dialysis) 86 Digital Imaging Technician: [id number] 87 Because ethnic data is not always [...] 5 Kidney failure <15 (or dialysis) 88 Digital Imaging Technician: [id number] 89 Digital Imaging Technician: [id number] 90 Critical Result ACTM:141.6 Called to RITCHIE at: 15:26:33 by:[id number] Read back by:[email or web address] Therapeutic concentration: <50 ug/mL Toxic concentration: >120 ug/mL 91 Because ethnic data is not always readily [...] 15-29 5 Kidney failure <15 (or dialysis) 92 Critical Result ACTM:225.7 Called to [id number] at: 13:20:54 by:[id number] Read back by:[id number] Therapeutic concentration: <50 ug/mL Toxic concentration: >120 ug/mL 93 SEE RESULT BELOW Name: CECILIO ALFARO : [address]: Juan David Cardoza MD Acct: [id number] Unit: [id number] AGE: 53 Location: ED Re01/02/19 SEX: F Status: REG ER SPEC: [id number] ANKUR: 01/02/19-[address]: Lupis Cardoza MD REQ: [id number] RECD: 01/02/19 STATUS: COMP [facility] DR: Rosa Schroeder MD _ SOURCE: URINE SPDESC: ORDERED: Urine Culture Procedure Result Reported Site Urine Culture Final 01/03/19- 1135 ML Mixed michelle; possible contamination. Suggest resubmission. * ML - Main Lab . END OF REPORT DEPARTMENT OF PATHOLOGY, [address] [place] [address] Tay Gamboa M.D. Director [facility] # [id number] 94 The urine specimen was tested at the listed cutoffs: Drug class test level (ng/mL) Amphetamines 500 Barbiturates 200 Benzodiazepine metabolites 200 Cocaine metabolites 150 Cannabinoids 50 Opiates 300 Pcp 25 Specimen was received without chain of custody. Results should be used for medical purposes only. 95 Because ethnic data is not always readily [...] 15-29 5 Kidney failure <15 (or dialysis) 96 Therapeutic concentration: <50 ug/mL Toxic concentration: >120 ug/mL 97 Digital Imaging Technician: [id number] 98 Digital Imaging Technician: [id number] 99 [facility] Severe Sepsis and Septic Shock Management Bundle Measure requires all lactic acids initially measuring >2.0 mmol/L be repeated. 100 Because ethnic data is not always [...] 5 Kidney failure <15 (or dialysis) 101 Critical Result GLU:46 Called to [id number] at: 16:46:21 by:[id number] Read back by:[id number] 102 Troponin-I testing on Plasma Separator Tubes (PST) has a known false positive rate of 0.20-0.40%. All positive troponins reflex immediately to secondary confirmatory testing. Using the [employer] 800 Access Immunoassay systems, the 99th percentile upper reference limit was demonstrated to be < 0.03 ng/mL. 103 [facility] Severe Sepsis and Septic Shock Management Bundle Measure requires all lactic acids initially measuring >2.0 mmol/L be repeated. 104 Because ethnic data is not always readily [...] 15-29 5 Kidney failure <15 (or dialysis) 105 Troponin-I testing on Plasma Separator Tubes (PST) has a known false positive rate of 0.20-0.40%. All positive troponins reflex immediately to secondary confirmatory testing. Using the [employer] DxI 800 Access Immunoassay systems, the 99th percentile upper reference limit was demonstrated to be < 0.03 ng/mL. 106 Digital Imaging Technician: [id number] 107 Standard intensity warfarin therapeutic range: 2.0-3.0 High intensity warfarin therapeutic range: 2.5-3.5 108 Troponin-I testing on Plasma Separator Tubes (PST) has a known false positive rate of 0.20-0.40%. All positive troponins reflex immediately to secondary confirmatory testing. Using the [employer] DxI 800 Access Immunoassay systems, the 99th percentile upper reference limit was demonstrated to be < 0.03 ng/mL. 109 Because ethnic data is not always [...] 5 Kidney failure <15 (or dialysis) 110 <5.0 Negative 5.0 - 25.0 Indeterminate (Repeat testing recommended after 72 hours) >25.0 Positive Perimenopausal women can display HCG levels of up to 20 mIU/mL 111 [facility] Severe Sepsis and Septic Shock Management Bundle Measure requires all lactic acids initially measuring >2.0 mmol/L be repeated. 112 SEE RESULT BELOW Name: CECILIO ALFARO Cameron : [address]: Violeta Yusuf MD Acct: [id number] Unit: [id number] AGE: 53 Location: ED Re12/14/18 SEX: F Status: DEP ER SPEC: [id number] ANKUR: 12/14/18-[address] [facility] [address]: Violeta Yusuf MD REQ: [id number] RECD: 12/14/18-1221 STATUS: TASHA BARFIELD DR: Rosa Schroeder MD _ SOURCE: URINE SPDESC: ORDERED: Urine Culture Procedure Result Reported Site Urine Culture Final 12/15/18- 1256 ML No growth of clinically significant organisms * ML - Main Lab . END OF REPORT DEPARTMENT OF PATHOLOGY, [address] [place] [address] Tay Gamboa M.D. Director [facility] # [id number] 113 Because ethnic data is not always readily [...] 15-29 5 Kidney failure <15 (or dialysis) 114 Because ethnic data is not always readily [...] 15-29 5 Kidney failure <15 (or dialysis) 115 Therapeutic concentration: <50 ug/mL Toxic concentration: >120 ug/mL 116 Digital Imaging Technician: [id number] Digital Imaging Technician: [id number] 118 SEE RESULT BELOW Name: ANGELINA,CECILIO Cameron : [address]: Neo Steinberg MD Acct: [id number] Unit: [id number] AGE: 53 Location: ED Re11/21/18 SEX: F Status: DEP ER SPEC: [id number] ANKUR: 11/21/[address] [facility] [address]: eNo Steinberg MD REQ: [id number] RECD: 11/21/18 STATUS: COMP [facility] DR: Rosa Schroeder MD _ SOURCE: URINE SPDESC: ORDERED: Urine Culture Procedure Result Reported Site Urine Culture Final 11/23/18- 1003 ML No growth of clinically significant organisms * ML - Main Lab . END OF REPORT DEPARTMENT OF PATHOLOGY, [address] [place] [address] Tay Gamboa M.D. Director [facility] # [id number] Procedures Date Code Description Status 02/27/2019 [id number] Mammogram Completed 01/19/2019 [id number] Colonoscopy Completed 10/26/2017 [id number] Diabetic Retinal Eye Exam Completed 05/01/2016 [id number] Mammogram Completed Medical Devices Description No Information Available Encounters Type Date Location Provider Dx Diagnosis Office Visit 03/23/2019 [facility] Rosa Schroeder MD I10 Essential ( primary) 1:40p Medicine - Ccmob hypertension B35.6 Tinea cruris R53.83 Other fatigue G47.30 Sleep apnea, unspecified F17.210 Nicotine dependence, cigarettes, uncomplicated L03.116 Cellulitis of left lower limb Office Visit 02/28/2019 Neurosurgery Vassilios M47.896 Other 2:00p Services Of Santo Samuel MD spondylosis, lumbar region Office Visit 02/07/2019 [facility] Jun Schroeder MD N39.0 Urinary tract 3:40p Medicine - Ccmob infection, site not specified R10.84 Generalized abdominal pain Office Visit 02/02/2019 11:33a [facility] Essie N39.0 Urinary tract Assoc,matthieu Up, infection, site Hospitalists 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 Hospitalists E16.2 Hypoglycemia, unspecified R10.9 Unspecified abdominal pain R30.0 Dysuria Office Visit 01/30/2019 4:40p [facility] Jun Schroeder MD N39.0 Urinary tract Medicine - Ccmob infection, site not specified B37.3 Candidiasis of vulva and vagina I10 Essential (primary) hypertension Z12.31 Encntr screen mammogram for malignant neoplasm of breast Office Visit 01/30/2019 [facility] Mayer Coch, E11.65 Type 2 diabetes 11:20a Endocrinology of MD mellitus with [facility] hyperglycemia Z79.4 watermelon inspector (current) use of insulin Office Visit 01/12/2019 10:20a [facility] Internal Robyn Cesar, B37.2 Candidiasis of Medicine - Ccmob skin and nail T14.91xD Suicide attempt, subsequent encounter Office Visit 12/22/2018 Neurosurgery Vassilios M47.896 Other 11:00a Services Of Santo Samuel MD spondylosis, lumbar region M48.062 Spinal stenosis, lumbar region with neurogenic claudication Office Visit 12/20/2018 3:00p Spine Navigator Consuelo Corrales, M51.27 Other intervertebral Of [facility] PA-C disc displacement, lumbosacral region Office Visit 12/20/2018 8:00a [facility] Jun Schroeder, F25.9 Schizoaffective Medicine - MD disorder, unspecified Ccmob E11.65 Type 2 diabetes mellitus with hyperglycemia 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, lumbosacral region I10 Essential (primary) hypertension Z72.0 Tobacco use J45.909 Unspecified asthma, uncomplicated K86.81 Exocrine pancreatic insufficiency Office Visit 12/08/2018 [facility] Moreno Coch, E11.65 Type 2 diabetes 9:40a Endocrinology of MD mellitus with [facility] hyperglycemia Z79.4 watermelon inspector (current) use of insulin E03.9 Hypothyroidism, unspecified F25.9 Schizoaffective disorder, unspecified Assessments Date Code Description Provider 05/11/2019 K42.9 Umbilical hernia without obstruction or Alexander Hernandez MD , FACS gangrene 05/11/2019 Z72.0 Tobacco use Alexander Hernandez MD, FACS 05/11/2019 E66.01 Morbid (severe) obesity due to excess Alexander Hernandez MD, FACS calories 04/06/2019 Z00.01 Encounter for general adult medical Rosa Schroeder MD examination with abnormal findings 04/06/2019 I10 Essential (primary) hypertension Rosa Schroeder MD 04/06/2019 E11.65 Type 2 diabetes mellitus with Rosa Schroeder MD hyperglycemia 04/06/2019 F17.210 Nicotine dependence, cigarettes, Rosa Schroeder MD uncomplicated 04/06/2019 K42.9 Umbilical hernia without obstruction or Rosa Schroeder MD gangrene 04/06/2019 M47.896 Other spondylosis, lumbar region Rosa Schroeder MD 03/23/2019 I10 Essential (primary) hypertension Rosa Schroeder MD 03/23/2019 B35.6 Tinea cruris Rosa Schroeder MD 03/23/2019 R53.83 Other fatigue Rosa Schroeder MD 03/23/2019 G47.30 Sleep apnea, unspecified Rosa Schroeder MD 03/23/2019 F17.210 Nicotine dependence, cigarettes, Rosa Schroeder MD uncomplicated 03/23/2019 L03.116 Cellulitis of left lower limb Rosa Schroeder MD 02/28/2019 M47.896 Other spondylosis, lumbar region Vassilios MD Jimmie 02/16/2019 N39.0 Urinary tract infection, site not Nurse Visit A specified 02/07/2019 N39.0 Urinary tract infection, site not Rosa Schroeder MD specified 02/07/2019 R10.84 Generalized abdominal pain Rosa Schroeder MD 02/02/2019 N39.0 Urinary tract infection, site not Essie Rk Up NP specified 02/01/2019 E87.6 Hypokalemia Quique [...] and vagina Rosa Schroeder MD 01/30/2019 Z79.4 alf (current) use of insulin Moreno Sandoval MD 01/30/2019 I10 Essential (primary) hypertension Rosa Schroeder MD 01/30/2019 Z12.31 Encounter for screening mammogram for Rosa Schroeder MD malignant neoplasm of 01/12/2019 B37.2 Candidiasis of skin and nail Robyn Guerrero MD 01/12/2019 T14.91xD Suicide attempt, subsequent encounter Robyn Guerrero MD 12/22/2018 M47.896 Other spondylosis, lumbar region Marissa Samuel MD 12/22/2018 M48.062 Spinal stenosis, lumbar region with Marissa Samuel MD neurogenic claudication 12/20/2018 F25.9 Schizoaffective disorder, unspecified Rosa Schroeder MD 12/20/2018 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, Consuelo Corrales PA-C lumbosacral region 12/20/2018 E11.65 Type 2 diabetes mellitus with Rosa Schroeder MD hyperglycemia 12/20/2018 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, Rosa Schroeder MD lumbosacral region 12/20/2018 I10 Essential (primary) hypertension Rosa Schroeder MD 12/20/2018 Z72.0 Tobacco use Rosa Schroeder MD 12/20/2018 J45.909 Unspecified asthma, uncomplicated Rosa Schroeder MD 12/20/2018 K86.81 Exocrine pancreatic insufficiency Rosa Schroeder MD 12/08/2018 E11.65 Type 2 diabetes mellitus with Moreno Sandoval MD hyperglycemia 12/08/2018 Z79.4 alf (current) use of insulin Moreno Sandoval MD 12/08/2018 E03.9 Hypothyroidism, unspecified Moreno Sandoval MD 12/08/2018 F25.9 Schizoaffective disorder, unspecified Moreno Sandoval MD Plan of Treatment Future Appointment(s):05/29/2019 2:00 pm - Yesenia Alvarez MD at [facility]05/11/2019 - Alexander Hernandez MD, FACSK42.9 Umbilical hernia without obstruction or gangreneComments:I have recommended robotic umbilical hernia repair with mesh. I outlined the details of the procedure going over the risks, benefits and alternatives. I spoke with the alternatives of watchful waiting and truss. The patient wishes to proceed. We spoke with the possible complications, which include, but are not limited to, bleeding, infection, recurrence, postoperative pain, and need for additional procedures. The patient's questions were answered. I would like to do this after about 2 months of attempted weight loss and smoking cessation.Z72.0 Tobacco useE66.01 Morbid (severe) obesity due to excess calories Goals 05/11/2019 - Alexander Hernandez MD, FACSZ72.0 Tobacco usePlease quit smoking prior to surgery.E66.01 Morbid (severe) obesity due to excess caloriesWeight goal of 250 before surgery. Functional Status Description No Information Available Mental Status Description No Information Available Referrals Refer to Reason for Referral Status Appt Date Rosa Schroeder M.D. Created [address] [place] [address] [place] [address] [phone] Karolina Pradhan MD pt with long standing umbilical hernia now causing Sent pain and tender to palpation [address] [place], [place] [address] [phone] [facility] [place] [place] [facility] pt with known BETZY, has been without cpap for years, Sent now complaining of excessive daytime fatigue [address] [place] [address] [phone]
== END 2019-05-16 10:55 | disposition home or self-care (01) ==
LOC: ED 10:08
DX: K42.9 Umbilical hernia without obstruction or gangrene (principal); E11.9 Type 2 diabetes mellitus without complications; E07.9 Disorder of thyroid, unspecified; I10 Essential (primary) hypertension; J45.909 Unspecified asthma, uncomplicated; K21.9 Gastro-esophageal reflux disease without esophagitis; R62.50 Unspecified lack of expected normal physiological development in childhood; F41.9 Anxiety disorder, unspecified; F32.9 Major depressive disorder, single episode, unspecified; F43.10 Post-traumatic stress disorder, unspecified; F17.210 Nicotine dependence, cigarettes, uncomplicated; Z79.4 Long term (current) use of insulin; Z79.890 Hormone replacement therapy; Z79.899 Other long term (current) drug therapy; Z88.5 Allergy status to narcotic agent; Z88.0 Allergy status to penicillin; Z88.2 Allergy status to sulfonamides; Z88.8 Allergy status to other drugs, medicaments and biological substances; Z88.1 Allergy status to other antibiotic agents; Z91.040 Latex allergy status
CPT/HCPCS: 99282; A9270-GY

== ENCOUNTER 2019-05-17 18:03 | Emergency (ER) | payer MEDICARE, MEDICAID ==
[2019-05-17 18:13] VITALS: BP 126/71
--- NOTE | 2019-05-17 18:20 | ED ---
Complex/Multi-Sys Presentation - HPI Summary HPI Summary: Pt is a 53 y/o F presenting to the ED for a hernia. Pt has constipation, but is able to have bowel movements. Pt also admits vomiting. Pt states she was sent to the ED by Dr. Bass for the hernia. Pt has an appointment with Dr. Hernandez on 05/18/19 at 15:00. Pt likes to knit, but she has carpal tunnel syndrome diagnosed 2 years ago. Pt reports pain and swelling in the left hand and wrist. Pt denies GERMAN or myalgia. - History Of Current Complaint Chief Complaint: EDAbdPain Hx Obtained From: Patient Onset/Duration: Sudden Onset, Still Present Timing: Constant Severity Currently: Mild Severity Initially: Mild Location: Negative Associated Signs And Symptoms: Positive: Vomiting, Other - Positive umbilical hernia - Allergies/Home Medications Allergies/Adverse Reactions: Allergies Allergy/AdvReac Type Severity Reaction Status Date / Time lurasidone [From Latuda] Allergy Severe Altered Verified 05/17/19 18:14 Mental Status ciprofloxacin Allergy Intermediate Dizziness Verified 05/17/19 18:14 latex Allergy Mild Rash Verified 05/17/19 18:14 lithium Allergy Mild See Comment Verified 05/17/19 18:14 nalbuphine Allergy Unknown Verified 05/17/19 18:14 Reaction Details naldemedine Allergy Unknown Verified 05/17/19 18:14 Reaction Details nitrofurantoin Allergy See Comment Verified 05/17/19 18:14 [From Macrobid] Penicillins Allergy Rash Verified 05/17/19 18:14 perphenazine Allergy Unknown Verified 05/17/19 18:14 Reaction Details Sulfa (Sulfonamide Allergy Hives Verified 05/17/19 18:14 Antibiotics) tramadol Allergy Altered Verified 05/17/19 18:14 Mental Status ENVIRONMENTAL Allergy Mild SINUS Uncoded 05/17/19 18:14 PMH/Surg Hx/FS Hx/Imm Hx Previously Healthy: Yes Endocrine/Hematology History: Reports: Hx Diabetes - TYPE 2, Hx Thyroid Disease , Other Endocrine/Hematological Disorders - Chronic pancreatitis Denies: Hx Anticoagulant Therapy Cardiovascular History: Reports: Hx Hypertension, Other Cardiovascular Problems/ Disorders - HX OF PSVT 04/2008 Denies: Hx Hypercholesterolemia, Hx Pacemaker/ICD Respiratory History: Reports: Hx Asthma, Hx Seasonal Allergies, Hx Sleep Apnea - HX OF IN THE PAST Denies: Hx Chronic Bronchitis, Hx Chronic Obstructive Pulmonary Disease (COPD ), Hx Cystic Fibrosis, Hx Lung Cancer, Hx Pleural Effusion, Hx Pneumonia, Hx Pulmonary Edema, Hx Pulmonary Embolism, Other Respiratory Problems/Disorders GI History: Reports: Hx Gall Bladder Disease, Hx Gastroesophageal Reflux Disease - ON MEDICATION FOR, Hx Gastrointestinal Bleed, Hx Irritable Bowel, Other GI Disorders - HX OF pancreatitis- STATES LAST ABOUT 2 WEEKS AGO- STATES SLIGHT CASE Denies: Hx Ulcer History: Reports: Other Problems/Disorders - urinary incontinence Denies: Hx Dialysis, Hx Renal Disease Musculoskeletal History: Reports: Hx Arthritis, Hx Back Problems, Other Musculoskeletal History - GEN MUSCULOSKELETAL PAIN Denies: Hx Rheumatoid Arthritis, Hx Bursitis, Hx Congenital Bone Abnormalities, Hx Fibromyalgia, Hx Gout, Hx Orthopedic Injury, Hx Osteoporosis, Hx Scoliosis, Hx Tendonitis Sensory History: Reports: Hx Contacts or Glasses, Hx Vision Problem Denies: Hx Cataracts, Hx Eye Injury, Hx Eye Prosthesis, Hx Glaucoma, Hx Macular Degeneration, Hx Hearing Aid, Other Sensory Impairments Opthamlomology History: Reports: Hx Contacts or Glasses, Hx Vision Problem Denies: Hx Cataracts, Hx Eye Injury, Hx Eye Prosthesis, Hx Glaucoma, Hx Macular Degeneration, Other Sensory Impairments Neurological History: Reports: Hx Developmental Delay - intellectual disability , Hx Seizures - STATES WITH ALLERGIC REACTION TO TRAMADOL Denies: Hx Dementia, Hx Headaches, Other Neuro Impairments/Disorders Psychiatric History: Reports: Hx Anxiety, Hx Depression, Hx Panic Disorder - TAKES DAILY, Hx Post Traumatic Stress Disorder, Hx Inpatient Treatment, Hx Community Mental Health Tx, Hx Bipolar Disorder - pt manic, Hx Suicide Attempt, Hx of Violent Episodes Against Others, Other Psychiatric Issues/Disorders - PSYCHOSIS NOS, HX OF PTSD, SCHIZOAFFECTIVE DISORDER, BORDERLINE PERSONALITY Denies: Hx Attention Deficit Hyperactivity Disorder, Hx Eating Disorder, Hx Schizophrenia, Hx Substance Abuse - Cancer History Cancer Type, Location and Year: None reported - Surgical History Surgical History: Yes Surgery Procedure, Year, and Place: 2011-CATARACT EXTRACTION;. GALLBLADDER REMOVED ; Hx Anesthesia Reactions: No - Immunization History Date of Tetanus Vaccine: unk Date of Influenza Vaccine: fall 2017 Infectious Disease History: No Infectious Disease History: Denies: Hx Clostridium Difficile, Hx Hepatitis, Hx Human Immunodeficiency Virus (HIV), Hx of Known/Suspected MRSA, Hx Shingles, Hx Tuberculosis, Hx Known/ Suspected VRE, Hx Known/Suspected VRSA, History Other Infectious Disease, Traveled Outside the [place] in Last 30 Days - Family History Known Family History: Positive: Other - Anxiety and depression, [place] - father Negative: Cardiac Disease, Hypertension, Diabetes Family History: Depression and anxiety - Social History Alcohol Use: None Hx Substance Use: No Substance Use Type: Reports: None Hx Tobacco Use: Yes Smoking Status (MU): Light Every Day Tobacco Smoker Type: Cigarettes Amount Used/How Often: 1/2 PPD FOR LAST 30 DAYS, NO OTHER TOBACCO Length of Time of Smoking/Using Tobacco: since she was "young" Have You Smoked in the Last Year: Yes - Patient has smoked within the last 30 days Review of Systems Positive: Vomiting, Other - Positive constipation with bowel movement Positive: Arthralgia - Left wrist and hand. Negative: Myalgia Negative: Headache All Other Systems Reviewed And Are Negative: Yes Physical Exam - Summary Physical Exam Summary: Constitutional: Well-developed, Well-nourished, Alert. (-) Distressed Skin: Warm, Dry HENT: Normocephalic; Atraumatic Eyes: Conjunctiva normal Neck: Musculoskeletal ROM normal neck. (-) JVD, (-) Stridor, (-) Tracheal deviation Cardio: Rhythm regular, rate normal, Heart sounds normal; Intact distal pulses; Radial pulses are 2+ and symmetric. (-) Murmur Pulmonary/Chest wall: Effort normal. (-) Respiratory distress, (-) Wheezes, (-) Rales Abd: Soft, (-) Distension, (-) Guarding, (-) Rebound. Small umbilical hernia that was easily reduced, no tenderness. Musculoskeletal: (-) Edema Lymph: (-) Cervical adenopathy Neuro: Alert, Oriented x3 Psych: Mood and affect Normal Triage Information Reviewed: Yes Vital Signs On Initial Exam: Initial Vitals Temp Pulse Resp BP Pulse Ox 97.8 F 88 18 126/71 97 05/17/19 18:11 05/17/19 18:11 05/17/19 18:11 05/17/19 18:11 05/17/19 18:11 Vital Signs Reviewed: Yes Procedures - Sedation Patient Received Moderate/Deep Sedation with Procedure: No Diagnostics - Vital Signs Vital Signs Temp Pulse Resp BP Pulse Ox 05/17/19 18:11 97.8 F 88 18 126/71 97 - Laboratory Lab Statement: Any lab studies that have been ordered have been reviewed, and results considered in the medical decision making process. Complex Multi-Symp Course/Dx Course Of Treatment: Patient is here with an umbilical hernia that is reducible. Patient seen yesterday for the same thing and has an appointment with her surgeon tomorrow. Patient called her primary care doctor who insists that she came to the ED. Patient had no evidence of strangulation or incarceration and was overall well-appearing. I easily reduced patient's hernia and she'll follow-up with her surgeon tomorrow - Diagnoses Provider Diagnoses: Umbilical hernia Discharge ED - Sign-Out/Discharge Documenting (check all that apply): Patient Departure - Discharge - Discharge Plan Condition: Stable Disposition: HOME Patient Education Materials: Umbilical Hernia (ED) Referrals: Rosa Schroeder MD [Primary Care Provider] - Additional Instructions: Follow up with Dr. Hernandez. Return to the ED if you cannot have a bowel movement in 24 hours, vomiting that does not go away after 12 hours, or if your hernia comes out and turns red or is tender. Please wear your wrist guard at night for your carpal tunnel. - Billing Disposition and Condition Condition: STABLE Disposition: Home - Attestation Statements Document Initiated by Scribe: Yes Documenting Scribe: Albina Fuchs Provider For Whom Naom is Documenting (Include Credential): Sergio Menjivar MD Scribe Attestation: IAlbina, scribed for Sergio Menjivar MD on 05/17/19 at 1944. Scribe Documentation Reviewed: Yes Provider Attestation: The documentation as recorded by the Albina roth accurately reflects the service I personally performed and the decisions made by me, Sergio Menjivar MD Status of Scribe Document: Viewed
== END 2019-05-17 18:27 | disposition home or self-care (01) ==
LOC: ED 18:03
DX: K42.9 Umbilical hernia without obstruction or gangrene (principal); E11.9 Type 2 diabetes mellitus without complications; E03.9 Hypothyroidism, unspecified; I10 Essential (primary) hypertension; J45.909 Unspecified asthma, uncomplicated; K21.9 Gastro-esophageal reflux disease without esophagitis; F79 Unspecified intellectual disabilities; F41.9 Anxiety disorder, unspecified; F32.9 Major depressive disorder, single episode, unspecified; F17.210 Nicotine dependence, cigarettes, uncomplicated; Z90.49 Acquired absence of other specified parts of digestive tract; Z79.4 Long term (current) use of insulin; Z79.51 Long term (current) use of inhaled steroids; Z79.890 Hormone replacement therapy; Z79.899 Other long term (current) drug therapy; Z88.5 Allergy status to narcotic agent; Z88.0 Allergy status to penicillin; Z88.2 Allergy status to sulfonamides; Z88.8 Allergy status to other drugs, medicaments and biological substances; Z88.1 Allergy status to other antibiotic agents; Z91.040 Latex allergy status
CPT/HCPCS: 99282

== ENCOUNTER 2019-05-21 12:59 | Emergency (ER) | payer MEDICARE, MEDICAID ==
--- OUTSIDE RECORDS SUMMARY | 2019-05-21 13:11 | XMS REPORT | Continuity of Care Document ---
:1965 External Reference #:[id number] Author Name Alexander Hernandez MD, FACS (transmitted by agent of provider Oralia Villarreal) Address [address] [place] [address] [place] [address] Care Team Providers Name Role Phone Ben Ovalles MD - Gastroenterology Care Team Information Hospitality Host Erik Grant MD - Ophthalmology Care Team Information Hospitality Host Rosa Schroeder M.D. - Family Medicine Care Team Information Hospitality Host Problems Active Problems Provider Date Type 2 [...] Smoker 5-10 Cigarettes Daily Smoking Status Reviewed: 05/18/19 Current Cigarette Smoker 5-10 Cigarettes Daily ETOH [...] dizziness 05/10/2017 Tramadol altered mental status 05/10/2017 [place] 05/10/2017 Lurasidone Moderate 05/08/2018 Metformin Diarrhea 05/22/2018 [...] Dev times a day and as [facility] directed dx:e11.9 diabetes Nicotine Transdermal apply 1 [...] cane for 1units M51.26 Rosa Schroeder, 11/17/2018 [facility] ambulation 4 prong Cyclobenzaprine HCL take 1 [...] Holes/5" use as directed Rashaun Denson" Adelina,FACP [facility] Anbesol Maximum apply to gingiva 27gm Rosadevin Schroeder, 09/21/2018 Strength 3x/day as needed 20% Gel for pain Creon one by mouth three 90caps R19.7 Rosa Schroeder, 09/06/2018 3000-9500Unit Caps times a day right MD DR Parikh before meals Onetouch Delica test 4 times a day 150units E11.9 Mayertracie Sandoval, 09/04/2018 Lancets Extra Fine 33G MD Nuñez Arnuity Ellipta 1 puff inhaled 30units Rosa Alexandre, 07/26/2018 every day 100mcg/Act Aerosol Depend Adjustable use four times a 120units Rosa Schroeder, 07/03/2018 Underwear L/XL day MD Nu[facility]ez Flonase Allergy Relief 2 sprays in each 9.900ml Rosa Schroeder, 06/23/2018 nostril twice a MD 50mcg/Act Suspension day Fiasp Flextouch 26 units tid-ac, 30ml E11.65 Mayer Lori, 05/19/2018 hold if glucose MD 100Unit/ML Solution less than 80mg/dL. Pen-Inject mdd 90 Basaglar Kwikpen 70 units once 30ml Mayertracie Sandoval, 05/19/2018 daily at bedtime, 100Unit/ML Solution delay dose by 1 Pen-Inject hour if glucose <70mg/dl, mdd 100 Nicotrol 1 cartridges every 168units Rosa Schroeder, 05/18/2018 10mg Inhaler 2 hours as needed Nystatin apply twice daily 90gm Robyn Guerrero, 05/15/2018 [id number]/GM until rash clears Powder Ventolin HFA 2 [...] day Maalox Max 30 milliliters by Unknown [phone] mouth q4hr as Suspension needed indigestion Duloxetine [...] 90tabs Rosa Schroeder MD 20mg bedtime Tablets Onetouch [employer] Mini check bs up to 1units E11.65 [...] CPT Code Status Date Vaccine Lot # [id number] Given 05/01/2018 Influenza Virus Vaccine, Quadrivalent, Split, Preservative Free Vital Signs Date Vital Result Comment 05/18/2019 3:35pm Heart Rate 76 /min BP Systolic 140 mmHg BP Diastolic 80 mmHg Respiratory Rate 18 /min Body Temperature 98.6 F 05/11/2019 3:07pm Height 66.75 inches 5'6.75" Weight 266.00 lb Heart Rate 90 /min BP Systolic Sitting 150 mmHg BP Diastolic Sitting 90 mmHg Respiratory Rate 18 /min Body Temperature 97.7 F BMI (Body Mass Index) 42.0 kg/m2 Results Test Date Facility Test Result H/L Range Note Drug Abuse 04/06/2019 [facility] Urine Amphetamine Negative ng/ mL 1 [address] [place] [address] [phone] Urine Barbiturates Negative ng/mL 2 Urine Benzodiazepines Negative ng/mL 3 Urine Cocaine Negative ng/mL 4 Urine Phencyclidine Negative ng/mL Cutoff: 25 Urine Tetrahydrocannabinol Negative ng/mL Cutoff: 50 5 Creatinine, Urine 55.6 mg/dL Specific Hines 1.007 pH 7.0 Oxidants Negative 6 Adulterants Comment Normal Codeine, Ur Not Detected ng/mL Cutoff: 25 7 Izlojpf-0-ftod-glucuronide, Ur Not Detected ng/mL 8 Morphine, Ur Not Detected ng/mL Cutoff: 25 9 Rxubxhji-6-otxc-glucuronide, U Not Detected ng/mL 10 6-monoacetylmorphine, Ur Not Detected ng/mL Cutoff: 25 11 Hydrocodone, Ur Not Detected ng/mL Cutoff: 25 12 Norhydrocodone, Ur Not Detected ng/mL Cutoff: 25 13 Dihydrocodeine, Ur Not Detected ng/mL Cutoff: 25 14 Hydromorphone, Ur Not Detected ng/mL Cutoff: 25 15 Mgzbfyzutwrvr6kjxgkeqnhaolfpo Not Detected ng/mL 16 Oxycodone, Ur Present ng/mL Abnormal Cutoff: 25 17 Noroxycodone, Ur Present ng/mL Abnormal Cutoff: 25 18 Oxymorphone, Ur Not Detected ng/mL Cutoff: 25 19 Dufukwgyarb-8-umuj-glucuronide Present ng/mL Abnormal 20 Noroxymorphone, Ur Not Detected ng/mL Cutoff: 25 21 Fentanyl, Ur Not Detected ng/mL Cutoff: 2 22 Norfentanyl, Ur Not Detected ng/mL Cutoff: 2 23 Meperidine, Ur Not Detected ng/mL Cutoff: 25 24 Normeperidine, Ur Not Detected ng/mL Cutoff: 25 25 Naloxone, Ur Not Detected ng/mL Cutoff: 25 26 Pjbwvrxg-5-vxdb-glucuronide, U Not Detected ng/mL 27 Methadone, Ur [...] Ur Not Detected ng/mL Cutoff: 50 35 Ziaaviekmv-pisk-dcxatoutfzb, U Not Detected ng/mL 36 Buprenorphine, Ur Not Detected ng/mL Cutoff: 5 37 Norbuprenorphine, Ur Not Detected ng/mL Cutoff: 5 38 Norbuprenorphine glucuronide Not Detected ng/mL Cutoff: 20 39 Opioid Interpretation See Comment 40 Laboratory test 03/27/2019 [facility] TSH 2.88 Normal 0.34- 5.60 41, finding [address] (Thyroid mcIU/mL 42 [place] [address] Stim Horm) [phone] Urine Culture 02/16/2019 [facility] Urine SEE [address] [place] [address] BELOW [phone] Ua Routine 02/16/2019 [facility] Ua 1.030 Specific Hines Ua PH 5 Ua Color dark yellow Ua Appera cloudy Ua WBC + Ua Protein trace Ua Glucose 50 Ua Ketones sm + Ua Bilirubin negative Ua Urobilinogen normal Ua Nitrite negative Ua Occult Blood about 250 Laboratory test 02/09/2019 [facility] Point of 167 mg/dL High 70-100 [address] [place] [address] Glucose [phone] Laboratory test 02/09/2019 [facility] Point of 244 mg/dL High 70-100 [address] [place] [address] Glucose [phone] Laboratory test 02/09/2019 [facility] Point of > 444 Critical 70-100 [address] Care mg/[place] [address] Glucose [phone] Urine Culture 02/09/2019 [facility] Urine SEE [address] [place] [address] BELOW [phone] Laboratory test 02/09/2019 [facility] Lactic 2.9 Critical 0.5- 2.0 [address] Acid mmol/[place] [address] [phone] Laboratory test 02/09/2019 [facility] Point of 299 mg/dL High 70-100 [address] [place] [address] Glucose [phone] Venous Blood Gas 02/09/2019 [facility] Venous 7.40 Normal 7.32 -7.[address] Blood pH 3 [place] [address] [phone] Venous Pco2 43 mmHg Normal 41-51 Venous Po2 44.0 mmHg Normal 35-45 Venous O2 Saturation 84.4 % High 70-80 Venous Blood Base Excess 1.5 mmol/L Normal 0.0-4.0 50 Venous Bicarbonate Hco3 25.5 mmol/L Normal 24-28 Urinalysis Profile 02/09/2019 [facility] Urine Color Sharlene [address] [place] [address] [phone] Urine Appearance Cloudy Urine Specific Hines 1.016 Normal 1.010-1.030 Urine pH 6.0 Normal [...] Cell Present Abnormal Absent CBC Auto 02/09/2019 [facility] White Blood 11.8 10^3/uL High 3.5-10.[address] [place] [address] [phone] Red Blood Count 4.59 10^6/uL Normal 3.70-4.87 [...] Blood Cells % 0.0 Laboratory test 02/09/2019 [facility] C Reactive 3.79 mg/L Normal <8.[address] [place] [address] [phone] Comp Metabolic 02/09/2019 [facility] Sodium 136 Normal 135- [address] mmol/[place] [address] [phone] Potassium 5.0 mmol/L Normal 3.5-5.0 Chloride 102 [...] Egfr 68.1 >60 52 Laboratory test 02/06/2019 [facility] Hemoglobin 9.0 % High 4.0-5.6 53, [address] A1c ([place] [address] HGB) [phone] Urine Culture 02/03/2019 [facility] Urine Culture SEE [address] [place] [address] BELOW [phone] Urinalysis 02/03/2019 [facility] Urine Color Yellow Profile [address] [place] [address] [phone] Urine Appearance Cloudy Urine Specific Hines 1.009 Low 1.010-1.030 Urine pH 5.0 Normal [...] Cell Present Abnormal Absent CBC Auto 02/03/2019 [facility] White Blood 9.6 10^3/uL Normal 3.5-10.[address] [place] [address] [phone] Red Blood Count 4.03 10^6/uL Normal 3.70-4.87 [...] Blood Cells % 0.0 Laboratory test 02/03/2019 [facility] Lactic Acid 0.8 mmol/L Normal 0.5-2.0 [address] [place] [address] [phone] Laboratory test 02/03/2019 [facility] Amylase 28 U/L Low 29- [address] [place] [address] [phone] Lipase < 10 U/L Low 11.0-82.0 C Reactive Protein 3.64 mg/L Normal <8.01 Comp Metabolic 02/03/2019 [facility] Sodium 140 mmol/L Normal 135-[address] [place] [address] [phone] Potassium 4.5 mmol/L Normal 3.5-5.0 Chloride 108 [...] Egfr 79.6 >60 57 Laboratory test 02/01/2019 [facility] Blood Culture SEE RESULT [address] [place] [address] [phone] Urine Culture And 02/01/2019 [facility] Urine Culture SEE RESULT [address] [place] [address] [phone] Laboratory test 02/01/2019 [facility] Erythrocyte Sed 33 mm/Hr High 0-[address] [place] [address] [phone] CBC Auto Diff 02/01/2019 [facility] White Blood 16.2 High 3.5 - [address] Count 10^3/uL 10.8 [place] [address] [phone] Red Blood Count 4.03 10^6/uL Normal 3.70-4.87 [...] Blood Cells % 0.0 Laboratory test 02/01/2019 [facility] Point of 232 mg/dL High 70-100 60 finding 101 [place] [address] Glucose [phone] Laboratory test 02/01/2019 [facility] Point of 54 mg/dL Low 70 -100 61 finding 101 [place] [address] Glucose [phone] Inr/Protime 02/01/2019 [facility] Inr 0.95 Normal 0.82-1.09 62 [address] [place] [address] [phone] Urinalysis 02/01/2019 [facility] Urine Color Yellow Profile [address] [place] [address] [phone] Urine Appearance Clear Urine Specific Hines 1.005 Low 1.010-1.030 Urine pH 6.0 Normal 5-9 Urine Urobilinogen Negative Negative Urine Ketones Negative Negative Urine Protein Negative Negative Urine Leukocytes Trace Abnormal Negative Urine Blood Negative Negative Urine Nitrite Negative Negative Urine Bilirubin Negative Negative Urine Glucose Negative Negative Urine White Blood Cell Trace(0-5/hpf) Absent Urine Red Blood Cell Absent Absent Urine Bacteria Absent Absent Laboratory test 02/01/2019 [facility] Creatine 137 U/L Normal 10-[address] Kinase(CK) [place] [address] [phone] C Reactive Protein 5.48 mg/L Normal <8.01 Troponin-I (TnI) 0.01 ng/mL <0.04 63 B-Type Natriuretic Peptide BNP 14 pg/mL <=100 Laboratory test 02/01/2019 [facility] Partial 27.7 Normal 26.0 -38.[address] [place] [address] Time PTT [phone] Fibrinogen 348.6 mg/dL Normal 110.8-404.3 Lactic Acid 0.8 mmol/L Normal 0.5-2.0 64 Comp Metabolic 02/01/2019 [facility] Sodium 139 mmol/L Normal 135-[address] [place] [address] [phone] Potassium 3.4 mmol/L Low 3.5-5.0 Chloride 110 [...] 93.8 >60 65 Urine Culture And 01/30/2019 [facility] Urine Culture SEE RESULT 66, [address] [place] [address] [phone] Ua Routine 01/30/2019 [facility] Ua Specific 1.010 Hines Ua PH 5 Ua Color yellow Ua Appera cloud Ua WBC L Ua Protein - Ua Glucose L Ua Ketones neg Ua Bilirubin neg Ua Urobilinogen neg Ua Nitrite - Ua Occult Blood 50 Urine Culture And 01/28/2019 [facility] Urine Culture SEE RESULT [address] [place] [address] [phone] Urinalysis Profile 01/28/2019 [facility] Urine Color Yellow [address] [place] [address] [phone] Urine Appearance Turbid Urine Specific Hines 1.016 Normal 1.010-1.030 Urine pH 6.0 Normal [...] Yeast Present Abnormal Absent CBC Auto 01/28/2019 [facility] White Blood 10.8 10^3/uL Normal 3.5-10.[address] [place] [address] [phone] Red Blood Count 4.72 10^6/uL Normal 3.70-4.87 [...] Red Blood Cells % 0.0 Inr/Protime 01/28/2019 [facility] Inr 0.92 Normal 0.82-1.[address] [place] [address] [phone] Laboratory test 01/28/2019 [facility] Partial 28.8 Normal 26.0 -38.[address] [place] [address] Time PTT [phone] Laboratory test 01/28/2019 [facility] Lipase 10 U/L Low 11.0- 82.[address] [place] [address] [phone] C Reactive Protein 5.53 mg/L Normal <8.01 Troponin-I (TnI) 0.00 ng/mL <0.04 70 HCG 3.01 mIU/mL 71 Lactic Acid 2.0 mmol/L Normal 0.5-2.0 72 Comp Metabolic 01/28/2019 [facility] Sodium 137 mmol/L Normal 135-[address] [place] [address] [phone] Potassium 5.0 mmol/L Normal 3.5-5.0 Chloride 101 [...] Egfr 73.8 >60 73 Urinalysis Profile 01/23/2019 [facility] Urine Color Yellow [address] [place] [address] [phone] Urine Appearance Turbid Urine Specific Hines 1.012 Normal 1.010-1.030 Urine pH 6.0 Normal [...] Cell Present Abnormal Absent Laboratory test 01/23/2019 [facility] Lactic Acid 1.8 mmol/L Normal 0.5-2.0 74 finding [address] [place] [address] [phone] Comp Metabolic 01/23/2019 [facility] Sodium 139 mmol/L Normal 135-145 Panel [address] [place] [address] [phone] Potassium 4.4 mmol/L Normal 3.5-5.0 Chloride 105 [...] Egfr 72.1 >60 75 Laboratory test 01/23/2019 [facility] Lipase < 10 U/L Low 11.0 -82.0 finding [address] [place] [address] [phone] C Reactive Protein 2.94 mg/L Normal <8.01 CBC Auto 01/23/2019 [facility] White Blood 14.3 10^3/uL High 3.5-10.[address] [place] [address] [phone] Red Blood Count 4.59 10^6/uL Normal 3.70-4.87 [...] Cells % 0.0 Urine Culture And 01/23/2019 [facility] Urine Culture SEE RESULT [address] [place] [address] [phone] Laboratory test 01/19/2019 [facility] Point of Care 193 mg/dL High 70-1 [address] Glucose 00 [place] [address] [phone] Laboratory test 01/19/2019 [facility] Point of Care 58 mg/dL Low 70-1 [address] Glucose 00 [place] [address] [phone] Laboratory test 01/19/2019 [facility] Point of Care 59 mg/dL Low 70-1 [address] Glucose 00 [place] [address] [phone] Laboratory test 01/19/2019 [facility] Point of Care 72 mg/dL Normal 70-1 [address] Glucose 00 [place] [address] [phone] Laboratory test 01/19/2019 [facility] Point of Care 83 mg/dL Normal 70-1 [address] Glucose 00 [place] [address] [phone] Laboratory test 01/19/2019 [facility] Clotest SEE RESULT [address] BELOW [place], [place] [address]00 [phone] Laboratory test 01/19/2019 [facility] Surgical SEE RESULT [address] [place] [address] Order [phone] Laboratory test 01/19/2019 [facility] Point of Care 64 mg/dL Low 70-1 [address] Glucose 00 [place], [place] [address]84 [phone] CBC Auto Diff 01/16/2019 [facility] White Blood 10.3 Normal 3.5- [address] Count 10^3/uL 10.8 [place], [place] [address]24657 [phone] Red Blood Count 4.51 10^6/uL Normal 3.70-4.87 [...] Blood Cells % 0.0 Comp Metabolic 01/16/2019 [facility] Sodium 138 mmol/L Normal 135-145 Panel [address] [place] [address] [phone] Potassium 4.5 mmol/L Normal 3.5-5.0 Chloride 104 [...] Egfr 92.5 >60 85 Laboratory test 01/16/2019 [facility] Amylase 32 U/L Normal 29 -103 finding [address] [place] [address] [phone] Lipase < 10 U/L Low 11.0-82.0 C Reactive Protein 3.40 mg/L Normal <8.01 Laboratory test 01/03/2019 [facility] Point of 263 mg/dL High 70-100 86 finding 101 [facility] [place] [place] [address] [phone] Basic Metabolic 01/03/2019 [facility] Sodium 138 mmol/L Normal 135-145 Panel [address] [place] [address] [phone] Potassium 4.4 mmol/L Normal 3.5-5.0 Chloride 109 mmol/L Normal 101-111 Co2 Carbon Dioxide 22 mmol/L Normal 22-32 Anion Gap 7 mmol/L Normal 2-11 Glucose 337 mg/dL High 70-100 Blood Urea Nitrogen 14 mg/dL Normal 6-24 Creatinine 0.87 mg/dL Normal 0.51-0.95 BUN/Creatinine Ratio 16.1 Normal 8-20 Calcium 8.8 mg/dL Normal 8.6-10.3 Egfr Non- 68.4 >60 Egfr 82.7 >60 87 Laboratory 01/03/2019 [facility] Point of Care 413 Critical 70 -100 88 test finding [address] Glucose mg/[place] [address] [phone] Laboratory 01/03/2019 [facility] Point of Care > 444 Critical 70-100 89 test finding [address] Glucose mg/[place] [address] [phone] Laboratory 01/03/2019 [facility] Acetaminophen 142 Critical 90 test finding [address] g/[place] [address] [phone] CBC Auto Diff 01/03/2019 [facility] White Blood 7.6 Normal 3.5 -10.[address] Count 10^3/[place] [address] [phone] Red Blood Count 4.20 10^6/uL Normal 3.70-4.87 [...] Blood Cells % 0.0 Comp Metabolic 01/03/2019 [facility] Sodium 137 mmol/L Normal 135-[address] [place] [address] [phone] Potassium 4.5 mmol/L Normal 3.5-5.0 Chloride 105 [...] Egfr 75.7 >60 91 Laboratory test 01/03/2019 [facility] Alcohol < 10 mg/dL Normal <10 finding [address] [place] [address] [phone] Salicylate < 2.50 mg/dL <30 TSH (Thyroid Stim Horm) 1.52 mcIU/mL Normal 0.34-5.60 Acetaminophen 226 g/mL Critical high 92 Urine Culture And 01/02/2019 [facility] Urine Culture SEE RESULT [address] [place] [address] [phone] Urinalysis Profile 01/02/2019 [facility] Urine Color Yellow [address] [place] [address] [phone] Urine Appearance Turbid Urine Specific Hines 1.011 Normal 1.010-1.030 Urine pH 6.0 Normal [...] Cell Present Abnormal Absent Urine Drug 01/02/2019 [facility] Urine None Detected None Detect SCR ED & [address] [place] [address] Screen [phone] Urine Barbiturates Screen None Detected None Detect Urine Benzodiazepine Screen None Detected None Detect Urine Cannabinoids Screen None Detected None Detect Urine Cocaine Screen None Detected None Detect Urine Opiates Screen None Detected None Detect Urine Phencyclidine Screen None Detected None Detect 94 CBC Auto 01/02/2019 [facility] White Blood 11.1 10^3/uL High 3.5-10.[address] [place] [address] [phone] Red Blood Count 4.26 10^6/uL Normal 3.70-4.87 [...] Blood Cells % 0.0 Comp Metabolic 01/02/2019 [facility] Sodium 140 mmol/L Normal 135-[address] [place] [address] [phone] Potassium 4.4 mmol/L Normal 3.5-5.0 Chloride 108 [...] Egfr 99.7 >60 95 Laboratory test 01/02/2019 [facility] Acetaminophen < 15 g/mL 96 finding [address] [place] [address] [phone] Alcohol < 10 mg/dL Normal <10 Salicylate < 2.50 mg/dL <30 TSH (Thyroid Stim Horm) 0.91 mcIU/mL Normal 0.34-5.60 Laboratory test 12/15/2018 [facility] Point of 204 mg/dL High 70-100 97 finding 101 [facility] [place] [address] [phone] Laboratory test 12/15/2018 [facility] Point of 112 mg/dL High 70-100 98 finding [address] [facility] [place] [address] [phone] Laboratory test 12/15/2018 [facility] Lactic Acid 1.3 mmol/L Normal 0.5-2.0 99 finding [address] [place] [address] [phone] Comp Metabolic 12/15/2018 [facility] Sodium 142 mmol/L Normal 135-145 Panel [address] [place] [address] [phone] Potassium 4.0 mmol/L Normal 3.5-5.0 Chloride 107 [...] Critical low 70-100 101 Laboratory test 12/15/2018 [facility] Lipase < 10 U/L Low 11.0 -82.[address] [place] [address] [phone] CBC Auto Diff 12/15/2018 [facility] White Blood 12.0 High 3.5- 10.[address] Count 10^3/[place] [address] [phone] Red Blood Count 4.36 10^6/uL Normal 3.70-4.87 [...] Red Blood Cells % 0.1 Laboratory 12/15/2018 [facility] Troponin-I 0.03 <0.04 102 test finding [address] (TnI) ng/[place] [address] [phone] CBC Auto Diff 12/14/2018 [facility] White Blood 9.6 Normal 3.5 -10.[address] Count 10^3/[place] [address] [phone] Red Blood Count 4.05 10^6/uL Normal 3.70-4.87 [...] Blood Cells % 0.1 Laboratory test 12/14/2018 [facility] Lactic Acid 1.6 mmol/L Normal 0.5-2.0 103 finding [address] [place] [address] [phone] Comp Metabolic 12/14/2018 [facility] Sodium 137 mmol/L Normal 135-145 Panel [address] [place] [address] [phone] Potassium 4.3 mmol/L Normal 3.5-5.0 Chloride 105 [...] Egfr 72.1 >60 104 Laboratory test 12/14/2018 [facility] Troponin-I (TnI) 0.01 ng/ mL <0.04 [address] [place] [address] [phone] B-Type Natriuretic Peptide BNP 10 pg/mL <=100 Laboratory test 12/14/2018 [facility] Point of 128 mg/dL High 70-100 [address] [place] [address] [phone] CBC Auto Diff 12/14/2018 [facility] White Blood 13.8 High 3.5- 10.[address] Count 10^3/[place] [address] [phone] Red Blood Count 4.50 10^6/uL Normal 3.70-4.87 [...] Red Blood Cells % 0.0 Inr/Protime 12/14/2018 [facility] Inr 0.89 Normal 0.82-1.[address] [place] [address] [phone] Laboratory test 12/14/2018 [facility] Partial 23.9 Low 26.0- 36.[address] [place] [address] Time PTT [phone] Troponin-I (TnI) 0.01 ng/mL <0.04 108 Comp Metabolic 12/14/2018 [facility] Sodium 142 mmol/L Normal 135-[address] [place] [address] [phone] Potassium 4.0 mmol/L Normal 3.5-5.0 Chloride 110 [...] Egfr 88.6 >60 109 Laboratory test 12/14/2018 [facility] Magnesium 1.6 mg/dL Low 1.9-2.[address] [place] [address] [phone] Amylase 33 U/L Normal 29-103 Lipase < 10 U/L Low 11.0-82.0 C Reactive Protein 3.27 mg/L Normal <8.01 HCG 2.75 mIU/mL 110 Urinalysis Profile 12/14/2018 [facility] Urine Color Yellow [address] [place] [address] [phone] Urine Appearance Clear Urine Specific Hines 1.004 Low 1.010-1.030 Urine pH 6.0 Normal [...] Cell Present Abnormal Absent Laboratory test 12/14/2018 [facility] Lactic 1.5 Normal 0.5- 2.0 [address] Acid mmol/[place] [address] [phone] Urine Culture And 12/14/2018 [facility] Urine SEE [address] [place] [address] BELOW [phone] CBC Auto Diff 12/09/2018 [facility] White 9.7 Normal 3.5-10.[address] Blood 10^3/[place] [address] Count [phone] Red Blood Count 4.43 10^6/uL Normal 3.70-4.87 [...] Blood Cells % 0.1 Comp Metabolic 12/09/2018 [facility] Sodium 139 mmol/L Normal 135-[address] [place] [address] [phone] Chloride 106 mmol/L Normal 101-111 Co2 Carbon [...] U/L High 13-39 Laboratory test finding 12/09/2018 [facility] Amylase 23 U/L Low 29-[address] [place] [address] [phone] Lipase < 10 U/L Low 11.0-82.0 CBC Auto 12/05/2018 [facility] White Blood 11.5 10^3/uL High 3.5-10.[address] [place] [address] [phone] Red Blood Count 4.65 10^6/uL Normal 3.70-4.87 [...] Blood Cells % 0.0 Comp Metabolic 12/05/2018 [facility] Sodium 139 mmol/L Normal 135-145 Panel [address] [place] [address] [phone] Potassium 3.9 mmol/L Normal 3.5-5.0 Chloride 107 [...] Egfr 92.5 >60 114 Laboratory test 12/05/2018 [facility] Acetaminophen < 15 g/mL 115 finding [address] [place] [address] [phone] Alcohol < 10 mg/dL Normal <10 Salicylate < 2.50 mg/dL <30 TSH (Thyroid Stim Horm) 8.38 mcIU/mL High 0.34-5.60 Laboratory test 11/21/2018 [facility] Point of 88 mg/dL Normal 70-100 [address] [facility] [place] [address] [phone] Laboratory test 11/21/2018 [facility] Point of 56 mg/dL Low 70 -100 [address] [place] [address] [phone] Urinalysis 11/21/2018 [facility] Urine Color Yellow Profile [address] [place] [address] [phone] Urine Appearance Cloudy Urine Specific Hines 1.016 Normal 1.010-1.030 Urine pH 6.0 Normal [...] Present Abnormal Absent Urine Culture And 11/21/2018 [facility] Urine Culture SEE RESULT [address] [place] [address] [phone] 1 REFERENCE VALUE Cutoff: 500 2 REFERENCE VALUE Cutoff: 200 3 REFERENCE VALUE Cutoff: 100 4 REFERENCE VALUE Cutoff: 150 5 ADDITIONAL INFORMATION This report is intended for use in clinical monitoring or management of patients. It is not intended for use in employment-related testing. Test Performed by: [facility] [address] [place] [address] Market Specialist: Nathaniel Moura M.D. Ph.D.; [facility]# [id number] 6 REFERENCE VALUE Cutoff: 200 mg/L 7 Tylenol 3 8 Metabolite of codeine REFERENCE VALUE Cutoff: 100 9 Crissy Aguilar, MS Contin; Also a minor metabolite (10%) of codeine and can be seen in low concentrations (<2,000 ng/mL) with poppy seed ingestion. 10 Metabolite of morphine REFERENCE VALUE Cutoff: 100 11 Metabolite of heroin 12 Lortab, [place], Vicodin; Also a very minor metabolite of [...] one of its metabolites (noroxycodone) along with fcbodvlkvlj-2-qyyi-glucuronide (metabolite of oxymorphone). Suspect use of oxycodone and/or oxymorphone within the past three days. ADDITIONAL INFORMATION This test was developed and its performance characteristics determined by [facility] in a manner consistent with CLIA requirements. This test has not been cleared or approved by the U.S. Food and Drug Administration. 41 [id number] 42 [id number] 43 SEE RESULT BELOW Name: CECILIO ALFARO : [address]: Rosa Schroeder MD Acct: [id number] Unit: [id number] AGE: 53 Location: [facility] Re02/16/19 SEX: F Status: REG REF SPEC: [id number] ANKUR: 02/16/19 [facility] DR: Rosa Schroeder MD REQ: [id number] RECD: 02/16/19 STATUS: COMP _ SOURCE: URINE SPDESC: ORDERED: Urine Culture COMMENTS: [id number] Urine Source: Random Procedure Result Reported Site Urine Culture Final 02/18/19- 0816 ML Organism 1 ESCHERICHIA COLI [place] Count 10-25,000 (Moderate) CFU/ML Organism 2 ENTEROCOCCUS FAECIUM [place] Count >100,000 (Many) CFU/ML 1. ESCHERICHIA COLI [facility].I[facility]. RX --------- ------ Ampicillin 8 S Cefazolin <=4 S Cefepime <=1 S Ceftriaxone <=1 S Ciprofloxacin <=0.25 S Gentamicin <=1 S Levofloxacin <=0.12 S Meropenem <=0.25 S Nitrofurantoin <=16 S Tetracycline >=16 R Pipercillin/Tazobactam <=4 S Trimethoprim/Sulfamethoxazole <=20 S Amoxicillin/Clavulanic Acid <=2 S Aztreonam <=1 S CONTINUED ON NEXT PAGE DEPARTMENT OF PATHOLOGY, [address] [place] [address] Tay Gamboa M.D. Director [facility] # [id number] Patient: CECILIO ALFARO Cameron [id number] (Continued) Specimen: [id number] Collected: 02/16/19-1116 Received: 02/16/19-1225 (Continued) Procedure Result Reported Site Urine Culture [...] These antibiotics are not available in the [facility] Formulary Contact the Microbiology Department for any additional antibiotic reporting. Contact the Microbiology Department for any additional antibiotic reporting. * ML - Main Lab . END OF REPORT DEPARTMENT OF PATHOLOGY, [address] [place] [address] Tay Gamboa M.D. Director [facility] # [id number] 44 Broadcast News Producer: [id number] 45 Broadcast News Producer: [id number] 46 Broadcast News Producer: [id number] 47 SEE RESULT BELOW Name: CECILIO ALFARO : [address]: Violeta Yusuf MD Acct: [id number] Unit: [id number] AGE: 53 Location: ED Re02/09/19 SEX: F Status: DEP ER SPEC: [id number] ANKUR: 02/09/19 [facility] DR: Maycol Al MD REQ: [id number] RECD: 02/09/19 STATUS: TASHA BARFIELD DR: [facility] Rosa Schroeder MD _ SOURCE: URINE SPDESC: ORDERED: Urine Culture Procedure Result Reported Site Urine Culture Final 02/10/19- 1600 ML No growth of clinically significant organisms * ML - Main Lab . END OF REPORT DEPARTMENT OF PATHOLOGY, [address] [place] [address] Tay Gamboa M.D. Director [facility] # [id number] 48 Critical Result LACT:2.9 Called to [id number] at: 19:36:39 by:[id number] Read back by:[id number] SANDRA Severe Sepsis and Septic Shock Management Bundle Measure requires all lactic acids initially measuring >2.0 mmol/L be repeated. 49 Broadcast News Producer: [id number] 50 Reference ranges based on room air. [...] 5 Kidney failure <15 (or dialysis) 53 [id number] 54 Therapeutic target for the treatment of diabetes mellitus patients is <7% HBA1C, and in selective patients <6.0%. Please refer to [employer] diabetic care guidelines for further information. 55 SEE RESULT BELOW Name: ANGELINACECILIO WHATLEY Cameron : [address]: Neo Kauffman MD Acct: [id number] Unit: [id number] AGE: 53 Location: ED Re02/03/19 SEX: F Status: DEP ER SPEC: [id number] ANKUR: 02/03/[address]: Senia OLSEN REQ: [id number] RECD: 02/03/19 STATUS: TASHA BARFIELD DR: Rosa Kauffman MD _ SOURCE: URINE [facility]: ORDERED: Urine Culture Procedure Result Reported Site Urine Culture Final 02/06/19- 0850 ML Organism 1 ENTEROCOCCUS FAECALIS [place] Count >100,000 (Many) CFU/ML 1. ENTEROCOCCUS FAECALIS [...] These antibiotics are not available in the [facility] Formulary Contact the Microbiology Department for any additional antibiotic reporting. * ML - Main Lab . END OF REPORT DEPARTMENT OF PATHOLOGY, [address] [place] [address] Tay Gamboa M.D. Director [facility] # [id number] 56 Specimen hemolyzed. Result may not be valid. [facility] Severe Sepsis and Septic Shock [...] [address]: Sherita Lui MD Acct: [id number] Unit: [id number] AGE: 53 Location: [facility] 408-01 Re02/01/19 Dis: 02/03/19 SEX: F Status: DIS [place] SPEC: [id number] ANKUR: 02/01/19 [facility] DR: Maycol Al MD REQ: [id number] RECD: 02/01/19 STATUS: COMP LICO DR: Rosa Schroeder MD _ SOURCE: BLOOD,VENO SPDESC: ORDERED: Blood Cult Procedure Result Reported Site Aerobic Culture Bottle Final 02/06/19- 1904 ML No Growth Day 5 Anaerobic Culture Bottle Final 02/06/19- 1902 ML No Growth Day 5 * ML - Main Lab . END OF REPORT DEPARTMENT OF PATHOLOGY, [address] [place] [address] Tay Gamboa M.D. Director [facility] # [id number] 59 SEE RESULT BELOW Name: CECILIO ALFARO Cameron : [address]: Avery Leavitt MD Acct: [id number] Unit: [id number] AGE: 53 Location: [place] [address]- Re02/01/19 SEX: F Status: ADM IN SPEC: [id number] ANKUR: 02/01/19 [facility] DR: Maycol Al MD REQ: [id number] RECD: 02/01/19 STATUS: COMP OTHR DR: Rosa Schroeder MD _ SOURCE: [facility] ORDERED: Urine Culture Procedure Result Reported Site Urine Culture Final 02/02/19- 1607 ML No Growth (<1,000 CFU/mL) * ML - Main Lab . END OF REPORT DEPARTMENT OF PATHOLOGY, [address] [place] [address] Tay Gamboa M.D. Director [facility] # [id number] 60 Broadcast News Producer: [id number] 61 Broadcast News Producer: [id number] 62 Standard intensity warfarin therapeutic range: 2.0-3.0 High intensity warfarin therapeutic range: 2.5-3.5 63 Troponin-I testing on Plasma Separator Tubes (PST) has a known false positive rate of 0.20-0.40%. All positive troponins reflex immediately to secondary confirmatory testing. Using the [employer] DxI 800 Access Immunoassay systems, the 99th percentile upper reference limit was demonstrated to be < 0.03 ng/mL. 64 [facility] Severe Sepsis and Septic Shock [...] 5 Kidney failure <15 (or dialysis) 66 [id number] 67 SEE RESULT BELOW Name: CECILIO ALFARO : [address]: Rosa Schroeder MD Acct: [id number] Unit: [id number] AGE: 53 Location: [facility] Re01/30/19 SEX: F Status: REG REF SPEC: [id number] ANKUR: 01/30/19-0500 [facility] DR: Rosa Schroeder MD REQ: [id number] RECD: 01/31/198417 STATUS: COMP _ SOURCE: URINE SPDES: ORDERED: Urine Culture COMMENTS: [id number] Urine Source: Random Procedure Result Reported Site Urine Culture Final 02/02/19- 830 ML Organism 1 FAY CUMMINGS [place] Count 10-25,000 (Moderate) CFU/ML Organism 2 NORMAL MICHELLE [place] Count 1-10,000 (Few) CFU/ML 1. FAY CUMMINGS [...] . END OF REPORT DEPARTMENT OF PATHOLOGY, [address] [place] [address] Tay Gamboa M.D. Director [facility] # [id number] 68 SEE RESULT BELOW Name: CECILIO ALFARO : [address]: Corey Easton MD Acct: [id number] Unit: [id number] AGE: 53 Location: ED Re01/28/19 SEX: F Status: DEP ER SPEC: [id number] ANKUR: 01/28/[address]: Corey Easton MD REQ: [id number] RECD: 01/28/19 STATUS: COMP LICO DR: Rosa Schroeder MD _ SOURCE: URINE SPDESC: ORDERED: Urine Culture Procedure Result Reported Site Urine Culture Final 01/31/19- 933 ML Organism 1 ESCHERICHIA COLI [place] Count 10-25,000 (Moderate) CFU/ML Organism 2 ENTEROCOCCUS FAECALIS [place] Count 75-100,000 (Many) CFU/ML 1. ESCHERICHIA COLI [...] CONTINUED ON NEXT PAGE DEPARTMENT OF PATHOLOGY, [address] [place] [address] Tay Gamboa M.D. Director [facility] # [id number] Patient: CECILIO ALFARO [id number] (Continued) Specimen: [id number] Collected: 01/28/19 Received: 01/28/19 (Continued) Procedure Result [...] These antibiotics are not available in the [facility] Formulary Contact the Microbiology Department for any additional antibiotic reporting. Contact the Microbiology Department for any additional antibiotic reporting. * ML - Main Lab . END OF REPORT DEPARTMENT OF PATHOLOGY, [address] [place] [address] Tay Gamboa M.D. Director [facility] # [id number] 69 Standard intensity warfarin therapeutic range: 2.0-3.0 High intensity warfarin therapeutic range: 2.5-3.5 70 Troponin-I testing on Plasma Separator Tubes (PST) has a known false positive rate of 0.20-0.40%. All positive troponins reflex immediately to secondary confirmatory testing. Using the [employer] DxI 800 Access Immunoassay systems, the 99th percentile upper reference limit was demonstrated to be < 0.03 ng/mL. 71 <5.0 Negative 5.0 - 25.0 Indeterminate (Repeat testing recommended after 72 hours) >25.0 Positive Perimenopausal women can display HCG levels of up to 20 mIU/mL 72 [facility] Severe Sepsis and Septic Shock [...] 5 Kidney failure <15 (or dialysis) 74 [facility] Severe Sepsis and Septic Shock [...] (or dialysis) 76 SEE RESULT BELOW Name: ANGELINACECILIO Cameron : [address]: Temi Brewer Acct: [id number] Unit: [id number] AGE: 53 Location: ED Re01/23/19 SEX: F Status: DEP ER SPEC: [id number] ANKUR: 01/24/[address]: Temi Trujillo MD REQ: [id number] RECD: 01/24/19 STATUS: TASHA BARFIELD DR: Rosa Schroeder MD _ SOURCE: URINE SPDESC: ORDERED: Urine Culture Procedure Result Reported Site Urine Culture Final 01/26/19- 0823 ML Organism 1 ESCHERICHIA COLI [place] Count 25-50,000 (Moderate) CFU/ML Organism 2 NORMAL MICHELLE [place] Count 25-50,000 (Moderate) CFU/ML 1. ESCHERICHIA COLI [...] . END OF REPORT DEPARTMENT OF PATHOLOGY, [address] [place] [address] Tay Gamboa M.D. Director [facility] # [id number] 77 Broadcast News Producer: [id number] 78 Broadcast News Producer: [id number] 79 Repeat Test Insufficient sample Broadcast News Producer: [id number] 80 Broadcast News Producer: [id number] 81 Broadcast News Producer: [id number] 82 SEE RESULT BELOW Name: CECILIO ALFARO : [address]: Jonathan Reynoso DO Acct: [id number] Unit: [id number] AGE: 53 Location: [place] Re01/19/19 SEX: F Status: DEP SDC SPEC: [id number] ANKUR: 01/19/19-916 [facility] DR: Jonathan Reynsoo DO REQ: [id number] RECD: 01/19/19 STATUS: TASHA BARFIELD DR: oRsa Schroeder MD _ SOURCE: GAS ANTRUM SPDESC: ORDERED: Clotest Procedure Result Reported Site Clotest Final 01/20/19- 0809 ML Clotest Negative * - Main Lab . END OF REPORT DEPARTMENT OF PATHOLOGY, [address] [place] [address] Tay Gamboa M.D. Director [facility] # [id number] 83 SEE RESULT BELOW Name: CECILIO ALFARO : [address]: Jonathan Reynoso DO Acct: [id number] Unit: [id number] AGE: 53 Location: [place] Re01/19/19 SEX: F Status: BITA JACOBS SPEC: [id number] ANKUR: 01/19/19 [facility] DR: Jonathan Reynoso DO REQ: [id number] RECD: 01/19/196396 STATUS: NILS BARFIELD DR: Rosa Schroeder MD [...] CONTINUED ON NEXT PAGE DEPARTMENT OF PATHOLOGY, [address] [place] [address] Tay Gamboa M.D. Director [facility] # [id number] RUN DATE: 01/22/19 [facility] LAB LIVE PAGE 2 Patient: CECILIO ALFARO [id number] (Continued) FINAL DIAGNOSIS (Continued) PRE-OPERATIVE DIAGNOSIS 6) [...] CONTINUED ON NEXT PAGE DEPARTMENT OF PATHOLOGY, [address] [place] [address] Tay Gamboa M.D. Director [facility] # [id number] RUN DATE: 01/22/19 [facility] LAB LIVE PAGE 3 Patient: CECILIO ALFARO [id number] (Continued) GROSS DESCRIPTION (Continued) tissue fragments which is submitted entirely in one cassette. Signed by and Reported on: Tay Gamboa MD 1439 END OF REPORT DEPARTMENT OF PATHOLOGY, [address] [place] [address] Tay Gamboa M.D. Director [facility] # [id number] 84 Broadcast News Producer: [id number] 85 Because ethnic data is not always [...] 5 Kidney failure <15 (or dialysis) 86 Broadcast News Producer: [id number] 87 Because ethnic data is not always [...] 5 Kidney failure <15 (or dialysis) 88 Broadcast News Producer: [id number] 89 Broadcast News Producer: [id number] 90 Critical Result ACTM:141.6 Called to RITCHIE at: 15:26:33 by:[id number] Read back by:[email or web address] Therapeutic concentration: <50 ug/mL [...] dialysis) 92 Critical Result ACTM:225.7 Called to [id number] at: 13:20:54 by:[id number] Read back by:[id number] Therapeutic concentration: <50 ug/mL Toxic concentration: >120 ug/mL 93 SEE RESULT BELOW Name: CEICLIO ALFARO : [address]: Juan David Cardoza MD Acct: [id number] Unit: [id number] AGE: 53 Location: ED Re01/02/19 SEX: F Status: REG ER SPEC: [id number] ANKUR: 01/02/19 [facility] DR: Lupis Cardoza MD REQ: [id number] RECD: 01/02/19 STATUS: TASHA BARFIELD DR: Rosa Schroeder MD _ SOURCE: URINE SPDESC: ORDERED: Urine Culture Procedure Result Reported Site Urine Culture Final 01/03/19- 1135 ML Mixed michelle; possible contamination. Suggest resubmission. * ML - Main Lab . END OF REPORT DEPARTMENT OF PATHOLOGY, [address] [place] [address] Tay Gamboa M.D. Director [facility] # [id number] 94 The urine specimen was tested at [...] <50 ug/mL Toxic concentration: >120 ug/mL 97 Broadcast News Producer: [id number] 98 Broadcast News Producer: [id number] 99 [facility] Severe Sepsis and Septic Shock [...] dialysis) 101 Critical Result GLU:46 Called to [id number] at: 16:46:21 by:[id number] Read back by:[id number] 102 Troponin-I testing on Plasma Separator Tubes (PST) has a known false positive rate of 0.20-0.40%. All positive troponins reflex immediately to secondary confirmatory testing. Using the [employer] DxI 800 Access Immunoassay systems, the 99th percentile upper reference limit was demonstrated to be < 0.03 ng/mL. 103 [facility] Severe Sepsis and Septic Shock [...] immediately to secondary confirmatory testing. Using the [employer] DxI 800 Access Immunoassay systems, the 99th percentile upper reference limit was demonstrated to be < 0.03 ng/mL. 106 Broadcast News Producer: [id number] 107 Standard intensity warfarin therapeutic range: 2.0-3.0 High intensity warfarin therapeutic range: 2.5-3.5 108 Troponin-I testing on Plasma Separator Tubes (PST) has a known false positive rate of 0.20-0.40%. All positive troponins reflex immediately to secondary confirmatory testing. Using the [employer] DxI 800 Access Immunoassay systems, the 99th [...] levels of up to 20 mIU/mL 111 [facility] Severe Sepsis and Septic Shock Management Bundle Measure requires all lactic acids initially measuring >2.0 mmol/L be repeated. 112 SEE RESULT BELOW Name: ANGELINACEICLIO Cameron : [address]: Violeta Yusuf MD Acct: [id number] Unit: [id number] AGE: 53 Location: ED Re12/14/18 SEX: F Status: DEP ER SPEC: [id number] ANKUR: 12/14/18 [facility] DR: Violeta Yusuf MD REQ: [id number] RECD: 12/14/18 STATUS: TASHA BARFIELD DR: Rosa Schroeder MD _ SOURCE: URINE SPDESC: ORDERED: Urine Culture Procedure Result Reported Site Urine Culture Final 12/15/18- 1256 ML No growth of clinically significant organisms * ML - Main Lab . END OF REPORT DEPARTMENT OF PATHOLOGY, [address] [place] [address] Tay Gamboa M.D. Director [facility] # [id number] 113 Because ethnic data is not always [...] <50 ug/mL Toxic concentration: >120 ug/mL 116 Broadcast News Producer: [id number] 117 Broadcast News Producer: [id number] 118 SEE RESULT BELOW Name: CECILIO ALFARO : [address]: Neo Steinberg MD Acct: [id number] Unit: [id number] AGE: 53 Location: ED Re11/21/18 SEX: F Status: DEP ER SPEC: [id number] ANKUR: 11/21/18 [facility] DR: Neo Steinberg MD REQ: [id number] RECD: 11/21/18 STATUS: TASHA BARFIELD DR: Rosa Schroeder MD _ SOURCE: URINE SPDESC: ORDERED: Urine Culture Procedure Result Reported Site Urine Culture Final 11/23/18- 1003 ML No growth of clinically significant organisms * ML - Main Lab . END OF REPORT DEPARTMENT OF PATHOLOGY, [address] [place] [address] Tay Gamboa M.D. Director [facility] # [id number] Procedures Date Code Description Status 02/27/2019 [id number] Mammogram Completed 01/19/2019 [id number] Colonoscopy Completed 10/26/2017 [id number] Diabetic Retinal Eye Exam Completed 05/01/2016 [id number] Mammogram Completed Medical Devices Description No Information Available Encounters Type Date Location Provider Dx Diagnosis Office Visit 05/11/2019 Surgical Alexander Hernandez, K42.9 Umbilical hernia 3:45p [facility], FACS without obstruction or gangrene Z72.0 Tobacco use E66.01 Morbid (severe) obesity due to excess calories Office Visit 03/23/2019 1:40p [facility] Rosa Schroeder MD I10 Essential (primary) Medicine - Ccmob hypertension B35.6 Tinea cruris R53.83 Other fatigue G47.30 Sleep apnea, unspecified F17.210 Nicotine dependence, cigarettes, uncomplicated L03.116 Cellulitis of left lower limb Office Visit 02/28/2019 [facility] M47.896 Other 2:00p [facility] Samuel MD spondylosis, lumbar region Office Visit 02/07/2019 [facility] Internal Rosa Schroeder MD N39.0 Urinary tract 3:40p Medicine - Ccmob infection, site not specified R10.84 Generalized abdominal pain Office Visit 02/02/2019 11:33a [facility] Essie N39.0 Urinary tract Assoc,matthieu Up, infection, site Hospitalists EXOTIC DANCER not specified Office Visit 02/01/2019 11:32a [facility] Quique E87.6 Hypokalemia Assoc,matthieu Aden M.D. Hospitalists E16.2 Hypoglycemia, unspecified R10.9 Unspecified abdominal pain R30.0 Dysuria Office Visit 01/30/2019 4:40p [facility] Internal Rosa Schroeder MD N39.0 Urinary tract Medicine - Ccmob infection, site not specified B37.3 Candidiasis of vulva and vagina I10 Essential (primary) hypertension Z12.31 Encntr screen mammogram for malignant neoplasm of breast Office Visit 01/30/2019 [facility] Mayer Coch, E11.65 Type 2 diabetes 11:20a Endocrinology of MD mellitus with [facility] hyperglycemia Z79.4 terminal clerk (current) use of insulin Office Visit 01/12/2019 10:20a [facility] Internal Robyn Cesar, B37.2 Candidiasis of Medicine - Ccmob skin and nail T14.91xD Suicide attempt, subsequent encounter Office Visit 12/22/2018 [facility] M47.896 Other 11:00a [facility] Samuel MD spondylosis, lumbar region M48.062 Spinal stenosis, lumbar region with neurogenic claudication Office Visit 12/20/2018 3:00p Spine Navigator Consuelo Corrales, M51.27 Other intervertebral Of [facility] PA-C disc displacement, lumbosacral region Office Visit 12/20/2018 8:00a [facility] Jun Schroeder, F25.9 Schizoaffective Medicine - MD disorder, unspecified Ccmob E11.65 Type 2 diabetes mellitus with hyperglycemia 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, lumbosacral region I10 Essential (primary) hypertension Z72.0 Tobacco use J45.909 Unspecified asthma, uncomplicated K86.81 Exocrine pancreatic insufficiency Office Visit 12/08/2018 [facility], E11.65 Type 2 diabetes 9:40a Endocrinology of MD mellitus with Mechanical Integrity Engineer hyperglycemia Z79.4 care home (current) use of insulin E03.9 Hypothyroidism, unspecified F25.9 Schizoaffective disorder, unspecified Assessments Date Code Description Provider 05/18/2019 K42.9 Umbilical hernia without obstruction or Alexander Hernandez MD , FACS gangrene 05/18/2019 E66.01 Morbid (severe) obesity due to excess Alexander Hernandez MD, FACS calories 05/18/2019 Z72.0 Tobacco use Alexander Hernandez MD, FACS 05/11/2019 K42.9 Umbilical hernia without obstruction or [...] and vagina Rosa Schroeder MD 01/30/2019 Z79.4 terminal clerk (current) use of insulin Moreno Sandoval MD [...] with Marissa Samuel MD neurogenic claudication 12/20/2018 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, Consuelo Corrales PA-C lumbosacral region 12/20/2018 F25.9 Schizoaffective disorder, unspecified Rosa Schroeder MD 12/20/2018 E11.65 Type 2 diabetes mellitus with [...] with Moreno Sandoval MD hyperglycemia 12/08/2018 Z79.4 terminal clerk (current) use of insulin Moreno Sandoval MD 12/08/2018 E03.9 Hypothyroidism, unspecified Moreno Sandoval MD 12/08/2018 F25.9 Schizoaffective disorder, unspecified Moreno Sandoval MD Plan of Treatment Future Appointment(s):06/13/2019 10:15 am - RAÚL Carlson at [facility]06/13/2019 10:15 am - Alexander Hernandez MD, FACS at [facility]06/21/2019 1:00 pm - Alexander Hernandez MD, FACS at [facility]05/23/2019 1:00 pm - Marline Duarte M.D. at [facility]/13/2019 8:20 am - Moreno Sandoval MD at [facility]05/29/2019 2:00 pm - Yesenia Alvarez MD at [facility]05/18/2019 - Alexander Hernandez MD, FACSK42.9 Umbilical hernia [...] months of attempted weight loss and smoking cessation. I would like patient to undergo any history and physical and medical clearance through her primary care E66.01 Morbid (severe) obesity due to excess [id number] Tobacco use Functional Status Description No Information Available Mental Status Description No Information Available Referrals Refer to Reason for Referral Status Appt Date Rosa Schroeder M.D. Sent [address] [place] [address] [place] [address] [phone] Karolina Pradhan MD pt with long standing umbilical hernia now causing Sent pain and tender to palpation [address] [place], [place] [address] [phone] [place] [facility] pt with known BETZY, has been without cpap for years, Sent now complaining of excessive daytime fatigue [address] [place] [id number] [phone]
--- NOTE | 2019-05-21 14:53 | ED ---
Abdominal Pain/Female - HPI Summary HPI Summary: This patient is a 53-year-old female returning for the 3rd visit in 1 week for hernia. Patient has a known umbilical hernia and has appointment for surgery on 06/13/[address] Hernandez. She states she called Dr. Frances office today and spoke with an RN who stated she should come to ED for further evaluation. She was seen on 05/16 and 05/17. Both of these visits, the hernia was able to be reduced in the ED. She returns today as she has been unable to reduce it at home. Continues to eat and drink OK. + flatulence, no burping, no discoloration around the skin or temperature changes to the skin. Last BM this morning and was normal. No f/s/c. - History of Current Complaint Chief Complaint: EDAbdPain Stated Complaint: HERNIA PER PT Time Seen by Provider: 05/21/19 13:22 Hx Obtained From: Patient Hx Last Menstrual Period: "last month" ?: No Onset/Duration: Gradual Onset Timing: Constant Severity Initially: Moderate Severity Currently: Moderate Pain Intensity: 7 Pain Scale Used: 0-10 Numeric Location: Umbilical Radiates: No Character: Sharp Aggravating Factor(s): Nothing Alleviating Factor(s): Nothing Associated Signs and Symptoms: Positive: Negative Allergies/Adverse Reactions: Allergies Allergy/AdvReac Type Severity Reaction Status Date / Time lurasidone [From Latuda] Allergy Severe Altered Verified 05/21/19 13:06 Mental Status ciprofloxacin Allergy Intermediate Dizziness Verified 05/21/19 13:06 latex Allergy Mild Rash Verified 05/21/19 13:06 lithium Allergy Mild See Comment Verified 05/21/19 13:06 nalbuphine Allergy Unknown Verified 05/21/19 13:06 Reaction Details naldemedine Allergy Unknown Verified 05/21/19 13:06 Reaction Details nitrofurantoin Allergy See Comment Verified 05/21/19 13:06 [From Macrobid] Penicillins Allergy Rash Verified 05/21/19 13:06 perphenazine Allergy Unknown Verified 05/21/19 13:06 Reaction Details Sulfa (Sulfonamide Allergy Hives Verified 05/21/19 13:06 Antibiotics) tramadol Allergy Altered Verified 05/21/19 13:06 Mental Status ENVIRONMENTAL Allergy Mild SINUS Uncoded 05/17/19 18:14 Home Medications: Home Medications Cetirizine* [ZyrTEC 10 MG TAB*] 10 mg PO DAILY 05/21/19 [History Confirmed 05/21] Clotrimazole 1% TOPICAL (NF) [Lotrimin 1% TOPICAL (NF)] 1 applic TOPICAL BID [History Confirmed 05/21/19] Insulin ASPART (NF) [Novolog (NF)] 26 unit SUBCUT TID AC 05/21/19 [History Confirmed 05/21/19] Metoclopramide TAB* [Reglan TAB*] 10 mg PO Q6H PRN 05/21/19 [History Confirmed 05/21/19] Nystatin TOP POWDER* 1 applic TOPICAL BID 05/21/19 [History Confirmed 05/21/19] hydrOXYzine HCL TAB* [Atarax 25 MG TAB*] 25 mg PO TID PRN 05/21/19 [History Confirmed 05/21/19] PMH/Surg Hx/FS Hx/Imm Hx Previously Healthy: Yes Endocrine/Hematology History: Reports: Hx Diabetes - TYPE 2, Hx Thyroid Disease , Other Endocrine/Hematological Disorders - Chronic pancreatitis Denies: Hx Anticoagulant Therapy Cardiovascular History: Reports: Hx Hypertension, Other Cardiovascular Problems/ Disorders - HX OF PSVT 04/2008 Denies: Hx Hypercholesterolemia, Hx Pacemaker/ICD Respiratory History: Reports: Hx Asthma, Hx Seasonal Allergies, Hx Sleep Apnea - HX OF IN THE PAST Denies: Hx Chronic Bronchitis, Hx Chronic Obstructive Pulmonary Disease (COPD ), Hx Cystic Fibrosis, Hx Lung Cancer, Hx Pleural Effusion, Hx Pneumonia, Hx Pulmonary Edema, Hx Pulmonary Embolism, Other Respiratory Problems/Disorders GI History: Reports: Hx Gall Bladder Disease, Hx Gastroesophageal Reflux Disease - ON MEDICATION FOR, Hx Gastrointestinal Bleed, Hx Irritable Bowel, Other GI Disorders - HX OF pancreatitis- STATES LAST ABOUT 2 WEEKS AGO- STATES SLIGHT CASE Denies: Hx Ulcer History: Reports: Other Problems/Disorders - urinary incontinence Denies: Hx Dialysis, Hx Renal Disease Musculoskeletal History: Reports: Hx Arthritis, Hx Back Problems, Other Musculoskeletal History - GEN MUSCULOSKELETAL PAIN Denies: Hx Rheumatoid Arthritis, Hx Bursitis, Hx Congenital Bone Abnormalities, Hx Fibromyalgia, Hx Gout, Hx Orthopedic Injury, Hx Osteoporosis, Hx Scoliosis, Hx Tendonitis Sensory History: Reports: Hx Contacts or Glasses, Hx Vision Problem Denies: Hx Cataracts, Hx Eye Injury, Hx Eye Prosthesis, Hx Glaucoma, Hx Macular Degeneration, Hx Hearing Aid, Other Sensory Impairments Opthamlomology History: Reports: Hx Contacts or Glasses, Hx Vision Problem Denies: Hx Cataracts, Hx Eye Injury, Hx Eye Prosthesis, Hx Glaucoma, Hx Macular Degeneration, Other Sensory Impairments Neurological History: Reports: Hx Developmental Delay - intellectual disability , Hx Seizures - STATES WITH ALLERGIC REACTION TO TRAMADOL Denies: Hx Dementia, Hx Headaches, Other Neuro Impairments/Disorders Psychiatric History: Reports: Hx Anxiety, Hx Depression, Hx Panic Disorder - TAKES DAILY, Hx Post Traumatic Stress Disorder, Hx Inpatient Treatment, Hx Community Mental Health Tx, Hx Bipolar Disorder - pt manic, Hx Suicide Attempt, Hx of Violent Episodes Against Others, Other Psychiatric Issues/Disorders - PSYCHOSIS NOS, HX OF PTSD, SCHIZOAFFECTIVE DISORDER, BORDERLINE PERSONALITY Denies: Hx Attention Deficit Hyperactivity Disorder, Hx Eating Disorder, Hx Schizophrenia, Hx Substance Abuse - Cancer History Cancer Type, Location and Year: None reported - Surgical History Surgery Procedure, Year, and Place: 2011-CATARACT EXTRACTION;. GALLBLADDER REMOVED ; Hx Anesthesia Reactions: No - Immunization History Date of Tetanus Vaccine: unk Date of Influenza Vaccine: fall 2017 Hx Pertussis Vaccination: No Immunizations Up to Date: Yes Infectious Disease History: No Infectious Disease History: Denies: Hx Clostridium Difficile, Hx Hepatitis, Hx Human Immunodeficiency Virus (HIV), Hx of Known/Suspected MRSA, Hx Shingles, Hx Tuberculosis, Hx Known/ Suspected VRE, Hx Known/Suspected VRSA, History Other Infectious Disease, Traveled Outside the [place] in Last 30 Days - Family History Known Family History: Positive: Other - Anxiety and depression, [place] - father Negative: Cardiac Disease, Hypertension, Diabetes Family History: Depression and anxiety - Social History Occupation: Unemployed Lives: At [facility] [employer] Alcohol Use: None Hx Substance Use: No Substance Use Type: Reports: None Hx Tobacco Use: Yes Smoking Status (MU): Light Every Day Tobacco Smoker Type: Cigarettes Amount Used/How Often: 1/2 PPD FOR LAST 30 DAYS, NO OTHER TOBACCO Length of Time of Smoking/Using Tobacco: since she was "young" Have You Smoked in the Last Year: Yes - Patient has smoked within the last 30 days Review of Systems Negative: Fever, Chills, Fatigue, Skin Diaphoresis Negative: Epistaxis, Dental Pain Negative: Palpitations, Chest Pain Positive: Abdominal Pain - umbilical hernia Genitourinary: Negative Positive: no symptoms reported, see HPI Negative: Arthralgia, Myalgia Skin: Negative All Other Systems Reviewed And Are Negative: Yes Physical Exam Triage Information Reviewed: Yes Vital Signs On Initial Exam: Initial Vitals Temp Pulse Resp BP Pulse Ox 98.3 F 80 20 139/84 96 05/21/19 13:02 05/21/19 13:02 05/21/19 13:02 05/21/19 13:02 05/21/19 13:02 Vital Signs Reviewed: Yes Appearance: Positive: Well-Appearing, Well-Nourished Skin: Positive: Warm, Skin Color Reflects Adequate Perfusion, Other - no discoloration Head/Face: Positive: Normal Head/Face Inspection Eyes: Positive: EOMI Neck: Positive: Supple, No Lymphadenopathy Respiratory/Lung Sounds: Positive: Clear to Auscultation, Breath Sounds Present Cardiovascular: Positive: RRR, Pulses are Symmetrical in both Upper and Lower Extremities Musculoskeletal: Positive: Strength/ROM Intact Neurological: Positive: Alert, Oriented to Person Place, Time, Speech Normal Psychiatric: Positive: Affect/Mood Appropriate Procedures - Sedation Patient Received Moderate/Deep Sedation with Procedure: No Diagnostics - Vital Signs Vital Signs Temp Pulse Resp BP Pulse Ox 05/21/19 13:51 74 125/84 95 05/21/19 13:21 86 176/101 99 05/21/19 13:02 98.3 F 80 20 139/84 96 - Laboratory Lab Statement: Any lab studies that have been ordered have been reviewed, and results considered in the medical decision making process. Abdominal Pain Fem Course/Dx - Course Course Of Treatment: Patient returns to the ED for concern for irreducible hernia. She was encouraged to f/u with surgery, but has appt on 06/13. On examination, patient had no evidence of strangulation or incarceration. The hernia was reducible and easily reduced in the ED. She states it continues to "come back out." As there is no evidence of stranulation or incarceratoin, she will continue to follow up with surgery and I have assured pt unless this area is discolored, she has N/V or unable to pass gas or severe pain - she can f/u with surgery as scheduled. She is OK with plan. Discussed this with her mother over the phone as well. - Diagnoses Provider Diagnoses: Umbilical hernia Discharge ED - Sign-Out/Discharge Documenting (check all that apply): Patient Departure - Discharge Plan Condition: Stable Disposition: HOME Patient Education Materials: Umbilical Hernia (ED) Referrals: Alexander Hernandez MD [Medical Doctor] - Rosa Schroeder MD [Primary Care Provider] - Additional Instructions: Please keep your appt with your surgeon Do not lift anything heavy Continue to try to reduce the hernia at home if able If you have any discoloration around the area or temperature changes, nausea, vomiting or unable to have a bowel movement - please return to the ED - Billing Disposition and Condition Condition: STABLE Disposition: Home
[2019-05-21 15:22] VITALS: BP 117/77
== END 2019-05-21 15:10 | disposition home or self-care (01) ==
LOC: ED 12:59
DX: K42.9 Umbilical hernia without obstruction or gangrene (principal); E11.9 Type 2 diabetes mellitus without complications; E07.9 Disorder of thyroid, unspecified; I10 Essential (primary) hypertension; K21.9 Gastro-esophageal reflux disease without esophagitis; J45.909 Unspecified asthma, uncomplicated; F79 Unspecified intellectual disabilities; F41.9 Anxiety disorder, unspecified; F43.10 Post-traumatic stress disorder, unspecified; F17.210 Nicotine dependence, cigarettes, uncomplicated; Z79.4 Long term (current) use of insulin; Z79.899 Other long term (current) drug therapy; Z88.0 Allergy status to penicillin; Z88.2 Allergy status to sulfonamides; Z88.8 Allergy status to other drugs, medicaments and biological substances; Z88.1 Allergy status to other antibiotic agents; Z91.040 Latex allergy status
CPT/HCPCS: 99282

== ENCOUNTER 2019-06-03 19:56 | Emergency (ER) | payer MEDICARE, MEDICAID ==
--- NOTE | 2019-06-03 20:26 | ED ---
Abdominal Pain/Female - HPI Summary HPI Summary: Pt is a 53 y/o F presenting to the ED brought in by EMS for swallowing batteries. Pt states that the staff at her residential facility are trying to get her to be placed in a care home and that she has been losing her friends. She has to go to court, and has been having increased stress, so she impulsively swallowed some batteries. However, she states that she was not trying to kill herself. She notes hx of umbilical hernia that is extremely painful. She denies vomiting. Medications reviewed. Allergies noted. - History of Current Complaint Stated Complaint: MHE PER EMS Time Seen by Provider: 06/03/19 20:00 Hx Obtained From: Patient Hx Last Menstrual Period: "last month" Onset/Duration: Gradual Onset, Lasting Weeks, Still Present Timing: Weeks Severity Initially: Moderate Severity Currently: Moderate Pain Intensity: 6 Pain Scale Used: 0-10 Numeric Location: Umbilical Radiates: No Aggravating Factor(s): Nothing Alleviating Factor(s): Nothing Associated Signs and Symptoms: Positive: Other: - stress, swallowed batteries. Negative: Vomiting Allergies/Adverse Reactions: Allergies Allergy/AdvReac Type Severity Reaction Status Date / Time lurasidone [From Latuda] Allergy Severe Altered Verified 06/03/19 20:09 Mental Status ciprofloxacin Allergy Intermediate Dizziness Verified 06/03/19 20:09 latex Allergy Mild Rash Verified 06/03/19 20:09 lithium Allergy Mild See Comment Verified 06/03/19 20:09 nalbuphine Allergy Unknown Verified 06/03/19 20:09 Reaction Details naldemedine Allergy Unknown Verified 06/03/19 20:09 Reaction Details nitrofurantoin Allergy See Comment Verified 06/03/19 20:09 [From Macrobid] Penicillins Allergy Rash Verified 06/03/19 20:09 perphenazine Allergy Unknown Verified 06/03/19 20:09 Reaction Details Sulfa (Sulfonamide Allergy Hives Verified 06/03/19 20:09 Antibiotics) tramadol Allergy Altered Verified 06/03/19 20:09 Mental Status ENVIRONMENTAL Allergy Mild SINUS Uncoded 05/17/19 18:14 PMH/Surg Hx/FS Hx/Imm Hx Previously Healthy: Yes Endocrine/Hematology History: Reports: Hx Diabetes - TYPE 2, Hx Thyroid Disease , Other Endocrine/Hematological Disorders - Chronic pancreatitis Denies: Hx Anticoagulant Therapy Cardiovascular History: Reports: Hx Hypertension, Other Cardiovascular Problems/ Disorders - HX OF PSVT 04/2008 Denies: Hx Hypercholesterolemia, Hx Pacemaker/ICD Respiratory History: Reports: Hx Asthma, Hx Seasonal Allergies, Hx Sleep Apnea - HX OF IN THE PAST Denies: Hx Chronic Bronchitis, Hx Chronic Obstructive Pulmonary Disease (COPD ), Hx Cystic Fibrosis, Hx Lung Cancer, Hx Pleural Effusion, Hx Pneumonia, Hx Pulmonary Edema, Hx Pulmonary Embolism, Other Respiratory Problems/Disorders GI History: Reports: Hx Gall Bladder Disease, Hx Gastroesophageal Reflux Disease - ON MEDICATION FOR, Hx Gastrointestinal Bleed, Hx Irritable Bowel, Other GI Disorders - HX OF pancreatitis- STATES LAST ABOUT 2 WEEKS AGO- STATES SLIGHT CASE Denies: Hx Ulcer History: Reports: Other Problems/Disorders - urinary incontinence Denies: Hx Dialysis, Hx Renal Disease Musculoskeletal History: Reports: Hx Arthritis, Hx Back Problems, Other Musculoskeletal History - GEN MUSCULOSKELETAL PAIN Denies: Hx Rheumatoid Arthritis, Hx Bursitis, Hx Congenital Bone Abnormalities, Hx Fibromyalgia, Hx Gout, Hx Orthopedic Injury, Hx Osteoporosis, Hx Scoliosis, Hx Tendonitis Sensory History: Reports: Hx Contacts or Glasses, Hx Vision Problem Denies: Hx Cataracts, Hx Eye Injury, Hx Eye Prosthesis, Hx Glaucoma, Hx Macular Degeneration, Hx Hearing Aid, Other Sensory Impairments Opthamlomology History: Reports: Hx Contacts or Glasses, Hx Vision Problem Denies: Hx Cataracts, Hx Eye Injury, Hx Eye Prosthesis, Hx Glaucoma, Hx Macular Degeneration, Other Sensory Impairments Neurological History: Reports: Hx Developmental Delay - intellectual disability , Hx Seizures - STATES WITH ALLERGIC REACTION TO TRAMADOL Denies: Hx Dementia, Hx Headaches, Other Neuro Impairments/Disorders Psychiatric History: Reports: Hx Anxiety, Hx Depression, Hx Panic Disorder - TAKES DAILY, Hx Post Traumatic Stress Disorder, Hx Inpatient Treatment, Hx Community Mental Health Tx, Hx Bipolar Disorder - pt manic, Hx Suicide Attempt, Hx of Violent Episodes Against Others, Other Psychiatric Issues/Disorders - PSYCHOSIS NOS, HX OF PTSD, SCHIZOAFFECTIVE DISORDER, BORDERLINE PERSONALITY Denies: Hx Attention Deficit Hyperactivity Disorder, Hx Eating Disorder, Hx Schizophrenia, Hx Substance Abuse - Cancer History Cancer Type, Location and Year: None reported - Surgical History Surgery Procedure, Year, and Place: 2011-CATARACT EXTRACTION;. GALLBLADDER REMOVED ; Hx Anesthesia Reactions: No - Immunization History Date of Tetanus Vaccine: unk Date of Influenza Vaccine: fall 2017 Infectious Disease History: No Infectious Disease History: Denies: Hx Clostridium Difficile, Hx Hepatitis, Hx Human Immunodeficiency Virus (HIV), Hx of Known/Suspected MRSA, Hx Shingles, Hx Tuberculosis, Hx Known/ Suspected VRE, Hx Known/Suspected VRSA, History Other Infectious Disease, Traveled Outside the [place] in Last 30 Days - Family History Known Family History: Positive: Other - Anxiety and depression, [place] - father Negative: Cardiac Disease, Hypertension, Diabetes Family History: Depression and anxiety - Social History Alcohol Use: None Hx Substance Use: No Substance Use Type: Reports: None Hx Tobacco Use: Yes Smoking Status (MU): Light Every Day Tobacco Smoker Type: Cigarettes Amount Used/How Often: 1/2 PPD FOR LAST 30 DAYS, NO OTHER TOBACCO Length of Time of Smoking/Using Tobacco: since she was "young" Have You Smoked in the Last Year: Yes - Patient has smoked within the last 30 days Review of Systems Positive: Other - swallowed batteries Positive: Abdominal Pain. Negative: Vomiting Positive: Other - increased stress All Other Systems Reviewed And Are Negative: Yes Physical Exam - Summary Physical Exam Summary: Constitutional: Well-developed, Well-nourished, Alert. (-) Distressed Skin: Warm, Dry HENT: Normocephalic; Atraumatic Eyes: Conjunctiva normal Neck: Musculoskeletal ROM normal neck. (-) JVD, (-) Stridor, (-) Tracheal deviation Cardio: Rhythm regular, rate normal, Heart sounds normal; Intact distal pulses; Radial pulses are 2+ and symmetric. (-) Murmur Pulmonary/Chest wall: Effort normal. (-) Respiratory distress, (-) Wheezes, (-) Rales Abd: Soft, umbilical hernia is reduced, (-) tenderness, (-) Distension, (-) Guarding, (-) Rebound Musculoskeletal: (-) Edema Lymph: (-) Cervical adenopathy Neuro: Alert, Oriented x3 Psych: Mood and affect Normal Triage Information Reviewed: Yes Vital Signs On Initial Exam: Initial Vitals Temp Pulse Resp BP Pulse Ox 98.9 F 93 20 175/127 97 06/03/19 20:00 06/03/19 20:00 06/03/19 20:00 06/03/19 20:00 06/03/19 20:00 Vital Signs Reviewed: Yes Procedures - Sedation Patient Received Moderate/Deep Sedation with Procedure: No Diagnostics - Vital Signs Vital Signs Temp Pulse Resp BP Pulse Ox 06/03/19 20:00 98.9 F 93 20 175/127 97 - Laboratory Lab Statement: Any lab studies that have been ordered have been reviewed, and results considered in the medical decision making process. - Radiology CXR Radiology Interpretation Completed By: Radiologist Summary of Radiographic Findings: Batteries below the diaphragm. No thoracic abnormalities. Pending official radiology report. Abd XR Radiology Interpretation Completed By: Radiologist Summary of Radiographic Findings: Batteries in LUQ below diaphragm, likely in the stomach. Pending official radiology report. Abdominal Pain Fem Course/Dx - Course Course Of Treatment: Patient is here after swallowing batteries and a stress reaction. Patient was overwhelmed with being kicked out of her living situation , losing friendship during this, and having pain in her abdomen from her hernia which is being repaired in 10 days. Patient denied any suicidal thoughts multiple times during her encounter. Patient had several presentations in the past for stress reaction. Patient's hernia was reduced. Patient had an x-ray which showed to batteries in her stomach. Patient was discharged home - Diagnoses Provider Diagnoses: Foreign body ingestion, Stress reaction Discharge ED - Sign-Out/Discharge Documenting (check all that apply): Patient Departure - Discharge Plan Condition: Stable Disposition: HOME Patient Education Materials: Foreign Body Ingestion (ED) Referrals: Rosa Schroeder MD [Primary Care Provider] - Additional Instructions: Follow up at your scheduled appointment with your surgeon tomorrow. Come back with any concerning symptoms. - Billing Disposition and Condition Condition: STABLE Disposition: Home - Attestation Statements Document Initiated by Albertoibe: Yes Documenting Scribe: Anu Parra Provider For Whom Noam is Documenting (Include Credential): Sergio Menjivar MD. Scribe Attestation: Anu Rosales, scribed for Sergio Menjivar MD. on 06/03/19 at 2355. Scribe Documentation Reviewed: Yes Provider Attestation: The documentation as recorded by the Anu roth accurately reflects the service I personally performed and the decisions made by , Sergio Menjivar MD. Status of Scribe Document: Viewed
[2019-06-03] MEDS ORDERED: Ibuprofen TAB* 600 MG PO ONE (20:48)
--- OUTSIDE RECORDS SUMMARY | 2019-06-03 21:06 | XMS REPORT | Continuity of Care Document ---
:1965 External Reference #:[id number] Author Name Marline Duarte M.D. (transmitted by agent of provider Ely Metcalf) Address [address] [place] [address] Care Team Providers Name Role Phone Ben Ovalles MD - Gastroenterology Care Team Information Handle Machine Operator Erik Grant MD - Ophthalmology Care Team Information Handle Machine Operator Rosa Schroeder M.D. - Family Medicine Care Team Information Handle Machine Operator [phone] Problems Active Problems Provider Date Type 2 diabetes mellitus Chapo Aguila M.D. Onset: 06/13/2017 Hypothyroidism Chapo Aguila M.D. Onset: 06/13/2017 Gastroesophageal reflux disease Chapo gAuila M.D. Onset: 06/13/2017 Mixed hyperlipidemia Chapo Aguila [...] Smoker 5-10 Cigarettes Daily Smoking Status Reviewed: 05/23/19 Current Cigarette Smoker 5-10 Cigarettes Daily ETOH [...] dizziness 05/10/2017 Tramadol altered mental status 05/10/2017 Mallard 05/10/2017 Lurasidone Moderate 05/08/2018 Metformin Diarrhea 05/22/2018 [...] Dev times a day and as [place] [facility] [place]:e11.9 diabetes Nicotine Transdermal apply 1 [...] Part daily Metoclopramide HCL one tablet every 6 90tabs Other Ordering 12/20/2018 10mg hours, 30 minutes Provider Tablets before meals and one at bedtime as Needed For Nausea Quad Cane 1 cane for 1units M51.26 Rosa Schroeder, 11/17/2018 [facility] [place]ulation 4 prong Cyclobenzaprine HCL take 1 [...] Holes/5" use as directed Rashaun Denson" Adelina,FACP Joaquin Anbesol Maximum apply to gingiva 27gm Rosadevin Schroeder, 09/21/2018 Strength 3x/day as needed 20% Gel for pain Creon one by mouth three 90caps R19.7 Rosa Schroeder, 09/06/2018 3000-9500Unit Caps times a day right MD DR Parikh before meals Onetouch Delica test 4 times a day 150units E11.9 Moreno Sandoval, 09/04/2018 Lancets Extra Fine 33G MD [...] Basaglar Kwikpen 70 units once 30ml Mayer Lori, 05/19/2018 daily at bedtime, MD 100Unit/ML Solution delay dose by 1 Pen-Inject hour if glucose <70mg/dl, mdd 100 Nicotrol 1 cartridges every 168units Rosa Cshroeder, 05/18/2018 10mg Inhaler 2 hours as needed Nystatin apply twice daily 90gm Robyn Guerrero, 05/15/2018 [id number]/GM until rash clears MD Powder Ventolin HFA 2 by mouth every [...] day Maalox Max 30 milliliters by Unknown [phone] mouth q4hr as Suspension needed indigestion Duloxetine [...] 90tabs Rosa Schroeder MD 20mg bedtime Tablets [employer] Mini check bs up to 1units E11.65 [...] CPT Code Status Date Vaccine Lot # [id number] Given 05/01/2018 Influenza Virus Vaccine, Quadrivalent, Split, Preservative Free Vital Signs Date Vital Result Comment 05/23/2019 1:06pm Height 66.75 inches 5'6.75" Weight 271.00 lb Heart Rate 98 /min BP Systolic 130 mmHg BP Diastolic 96 mmHg BMI (Body Mass Index) 42.8 kg/m2 05/18/2019 3:35pm Heart Rate 76 /min BP Systolic 140 mmHg BP Diastolic 80 mmHg Respiratory Rate 18 /min Body Temperature 98.6 F Results Test Date Facility Test Result H/L Range Note Drug Abuse 04/06/2019 [facility] Urine Amphetamine Negative ng/ mL 1 [address] [place] [address] [phone] Urine Barbiturates Negative ng/mL 2 Urine Benzodiazepines Negative ng/mL 3 Urine Cocaine Negative ng/mL 4 Urine Phencyclidine Negative ng/mL Cutoff: 25 Urine Tetrahydrocannabinol Negative ng/mL Cutoff: 50 5 Creatinine, Urine 55.6 mg/dL Specific [facility] [place] 1.007 pH 7.0 Oxidants Negative 6 Adulterants Comment Normal Codeine, Ur Not Detected ng/mL Cutoff: 25 7 Skqxtzj-3-mzgh-glucuronide, Ur Not Detected ng/mL 8 Morphine, Ur Not Detected ng/mL Cutoff: 25 9 Agsvkglo-3-wqgl-glucuronide, U Not Detected ng/mL 10 6-monoacetylmorphine, Ur Not Detected ng/mL Cutoff: 25 11 Hydrocodone, Ur Not Detected ng/mL Cutoff: 25 12 Norhydrocodone, Ur Not Detected ng/mL Cutoff: 25 13 Dihydrocodeine, Ur Not Detected ng/mL Cutoff: 25 14 Hydromorphone, Ur Not Detected ng/mL Cutoff: 25 15 Ufonfatpmdpoy5hjuhueofasrvzix Not Detected ng/mL 16 Oxycodone, Ur Present ng/mL Abnormal Cutoff: 25 17 Noroxycodone, Ur Present ng/mL Abnormal Cutoff: 25 18 Oxymorphone, Ur Not Detected ng/mL Cutoff: 25 19 Sexkixtnxat-1-vorf-glucuronide Present ng/mL Abnormal 20 Noroxymorphone, Ur Not Detected ng/mL Cutoff: 25 21 Fentanyl, Ur Not Detected ng/mL Cutoff: 2 22 Norfentanyl, Ur Not Detected ng/mL Cutoff: 2 23 Meperidine, Ur Not Detected ng/mL Cutoff: 25 24 Normeperidine, Ur Not Detected ng/mL Cutoff: 25 25 Naloxone, Ur Not Detected ng/mL Cutoff: 25 26 Fdmspsqh-2-vxuy-glucuronide, U Not Detected ng/mL 27 Methadone, Ur [...] Ur Not Detected ng/mL Cutoff: 50 35 Aydqqtegua-nliw-hejundvjcdx, U Not Detected ng/mL 36 Buprenorphine, Ur Not Detected ng/mL Cutoff: 5 37 Norbuprenorphine, Ur Not Detected ng/mL Cutoff: 5 38 Norbuprenorphine glucuronide Not Detected ng/mL Cutoff: 20 39 Opioid Interpretation See Comment 40 Laboratory test 03/27/2019 [facility] TSH 2.88 Normal 0.34- 5.60 41, finding [address] (Thyroid mcIU/mL 42 [place] [address] Stim Horm) [phone] Urine Culture 02/16/2019 [facility] Urine SEE [address] [place] [address] BELOW [phone] Ua Routine 02/16/2019 [facility] Ua 1.030 Specific [facility] [place] [facility] Ua PH 5 Ua Color dark yellow Ua Appera cloudy Ua WBC + Ua Protein trace Ua Glucose 50 Ua Ketones sm + Ua Bilirubin negative Ua Urobilinogen normal Ua Nitrite negative Ua Occult Blood about 250 Laboratory test 02/09/2019 [facility] Point of 167 mg/dL High 70-100 [address] [place] [address] Glucose [phone] Laboratory test 02/09/2019 [facility] Point of 244 mg/dL High 70-100 [address] [place] [address] Glucose [phone] Laboratory test 02/09/2019 [facility] Point of > 444 Critical 70-100 [address] Care mg/[place] [address] Glucose [phone] Urine Culture 02/09/2019 [facility] Urine SEE [address] [place] [address] BELOW [phone] Laboratory test 02/09/2019 [facility] Lactic 2.9 Critical 0.5- 2.0 [address] Acid mmol/[place] [address] [phone] Laboratory test 02/09/2019 [facility] Point of 299 mg/dL High 70-100 [address] [place] [address] Glucose [phone] Venous Blood Gas 02/09/2019 [facility] Venous 7.40 Normal 7.32 -7.[address] Blood pH 3 [place] [address] [phone] Venous Pco2 43 mmHg Normal 41-51 Venous Po2 44.0 mmHg Normal 35-45 Venous O2 Saturation 84.4 % High 70-80 Venous Blood Base Excess 1.5 mmol/L Normal 0.0-4.0 50 Venous Bicarbonate Hco3 25.5 mmol/L Normal 24-28 Urinalysis Profile 02/09/2019 [facility] Urine Color Sharlene [address] [place] [address] [phone] Urine Appearance Cloudy Urine Specific [facility] [place] 1.016 Normal 1.010-1.030 Urine pH 6.0 Normal [...] Cell Present Abnormal Absent CBC Auto 02/09/2019 [facility] White Blood 11.8 10^3/uL High 3.5-10.[address] [place] [address] [phone] Red Blood Count 4.59 10^6/uL Normal 3.70-4.87 [...] Blood Cells % 0.0 Laboratory test 02/09/2019 [facility] C Reactive 3.79 mg/L Normal <8.[address] [place] [address] [phone] Comp Metabolic 02/09/2019 [facility] Sodium 136 Normal 135- [address] mmol/[place] [address] [phone] Potassium 5.0 mmol/L Normal 3.5-5.0 Chloride 102 [...] Egfr 68.1 >60 52 Laboratory test 02/06/2019 [facility] Hemoglobin 9.0 % High 4.0-5.6 53, [address] A1c ([place] [address] HGB) [phone] Urine Culture 02/03/2019 [facility] Urine Culture SEE [address] [place] [place] [address] BELOW [phone] Urinalysis 02/03/2019 [facility] Urine Color Yellow Profile [address] [place] [address] [phone] Urine Appearance Cloudy Urine Specific [facility] [place] 1.009 Low 1.010-1.030 Urine pH 5.0 Normal [...] Cell Present Abnormal Absent CBC Auto 02/03/2019 [facility] White Blood 9.6 10^3/uL Normal 3.5-10.[address] [place] [address] [phone] Red Blood Count 4.03 10^6/uL Normal 3.70-4.87 [...] Blood Cells % 0.0 Laboratory test 02/03/2019 [facility] Lactic Acid 0.8 mmol/L Normal 0.5-2.[address] [place] [address] [phone] Laboratory test 02/03/2019 [facility] Amylase 28 U/L Low 29- [address] [place] [address] [phone] Lipase < 10 U/L Low 11.0-82.0 C Reactive Protein 3.64 mg/L Normal <8.01 Comp Metabolic 02/03/2019 [facility] Sodium 140 mmol/L Normal 135-[address] [place] [address] [phone] Potassium 4.5 mmol/L Normal 3.5-5.0 Chloride 108 [...] Egfr 79.6 >60 57 Laboratory test 02/01/2019 [facility] Blood Culture SEE RESULT [address] [place] [address] [phone] Urine Culture And 02/01/2019 [facility] Urine Culture SEE RESULT [address] [place] [address] [phone] Laboratory test 02/01/2019 [facility] Erythrocyte Sed 33 mm/Hr High 0-[address] [place] [address] [phone] CBC Auto Diff 02/01/2019 [facility] White Blood 16.2 High 3.5 - [address] Count 10^3/uL 10.8 [place] [address] [phone] Red Blood Count 4.03 10^6/uL Normal 3.70-4.87 [...] Blood Cells % 0.0 Laboratory test 02/01/2019 [facility] Point of 232 mg/dL High 70-100 60 finding 101 [place] [address] Glucose [phone] Laboratory test 02/01/2019 [facility] Point of 54 mg/dL Low 70 -100 61 finding 101 [place] [address] Glucose [phone] Inr/Protime 02/01/2019 [facility] Inr 0.95 Normal 0.82-1.09 62 [address] [place] [address] [phone] Urinalysis 02/01/2019 [facility] Urine Color Yellow Profile [address] [place] [address] [phone] Urine Appearance Clear Urine Specific [facility] [place] [facility] 1.005 Low 1.010-1.030 Urine pH 6.0 Normal 5-9 Urine Urobilinogen Negative Negative Urine Ketones Negative Negative Urine Protein Negative Negative Urine Leukocytes Trace Abnormal Negative Urine Blood Negative Negative Urine Nitrite Negative Negative Urine Bilirubin Negative Negative Urine Glucose Negative Negative Urine White Blood Cell Trace(0-5/hpf) Absent Urine Red Blood Cell Absent Absent Urine Bacteria Absent Absent Laboratory test 02/01/2019 [facility] Creatine 137 U/L Normal 10-[address] Kinase(CK) [place] [address] [phone] C Reactive Protein 5.48 mg/L Normal <8.01 Troponin-I (TnI) 0.01 ng/mL <0.04 63 B-Type Natriuretic Peptide BNP 14 pg/mL <=100 Laboratory test 02/01/2019 [facility] Partial 27.7 Normal 26.0 -38.[address] [place] [address] Time PTT [phone] Fibrinogen 348.6 mg/dL Normal 110.8-404.3 Lactic Acid 0.8 mmol/L Normal 0.5-2.0 64 Comp Metabolic 02/01/2019 [facility] Sodium 139 mmol/L Normal 135-[address] [place] [address] [phone] Potassium 3.4 mmol/L Low 3.5-5.0 Chloride 110 [...] 93.8 >60 65 Urine Culture And 01/30/2019 [facility] Urine Culture SEE RESULT 66, [address] [place] [address] [phone] Ua Routine 01/30/2019 [facility] Ua Specific 1.010 [place] Ua PH 5 Ua Color yellow Ua Appera cloud Ua WBC L Ua Protein - Ua Glucose L Ua Ketones neg Ua Bilirubin neg Ua Urobilinogen neg Ua Nitrite - Ua Occult Blood 50 Urine Culture And 01/28/2019 [facility] Urine Culture SEE RESULT [address] [place] [address] [phone] Urinalysis Profile 01/28/2019 [facility] Urine Color Yellow [address] [place] [address] [phone] Urine Appearance Turbid Urine Specific [facility] [place] 1.016 Normal 1.010-1.030 Urine pH 6.0 Normal [...] Yeast Present Abnormal Absent CBC Auto 01/28/2019 [facility] White Blood 10.8 10^3/uL Normal 3.5-10.[address] [place] [address] [phone] Red Blood Count 4.72 10^6/uL Normal 3.70-4.87 [...] Red Blood Cells % 0.0 Inr/Protime 01/28/2019 [facility] Inr 0.92 Normal 0.82-1.[address] [place] [address] [phone] Laboratory test 01/28/2019 [facility] Lipase 10 U/L Low 11.0- 82.[address] [place] [address] [phone] C Reactive Protein 5.53 mg/L Normal <8.01 Troponin-I (TnI) 0.00 ng/mL <0.04 70 HCG 3.01 mIU/mL 71 Lactic Acid 2.0 mmol/L Normal 0.5-2.0 72 Comp Metabolic 01/28/2019 [facility] Sodium 137 mmol/L Normal 135-145 Panel [address] [place] [address] [phone] Potassium 5.0 mmol/L Normal 3.5-5.0 Chloride 101 [...] Non- 61.0 >60 Egfr 73.8 >60 73 Laboratory test 01/28/2019 [facility] Partial 28.8 Normal 26.0 -38.[address] [place] [address] Time PTT [phone] Urinalysis 01/23/2019 [facility] Urine Color Yellow Profile [address] [place] [address] [phone] Urine Appearance Turbid Urine Specific [facility] [place] 1.012 Normal 1.010-1.030 Urine pH 6.0 Normal [...] Cell Present Abnormal Absent Laboratory test 01/23/2019 [facility] Lactic Acid 1.8 mmol/L Normal 0.5-2.0 74 finding [address] [place] [address] [phone] Comp Metabolic 01/23/2019 [facility] Sodium 139 mmol/L Normal 135-145 Panel 101 [place] [address] [phone] Potassium 4.4 mmol/L Normal 3.5-5.0 Chloride 105 [...] Egfr 72.1 >60 75 Laboratory test 01/23/2019 [facility] Lipase < 10 U/L Low 11.0 -82.0 finding [address] [place] [address] [phone] C Reactive Protein 2.94 mg/L Normal <8.01 CBC Auto 01/23/2019 [facility] White Blood 14.3 10^3/uL High 3.5-10.[address] [place] [address] [phone] Red Blood Count 4.59 10^6/uL Normal 3.70-4.87 [...] Cells % 0.0 Urine Culture And 01/23/2019 [facility] Urine Culture SEE RESULT [address] [place] [address] [phone] Laboratory test 01/19/2019 [facility] Point of Care 193 mg/dL High 70-1 [address] Glucose 00 [place] [address] [phone] Laboratory test 01/19/2019 [facility] Point of Care 58 mg/dL Low 70-1 [address] Glucose 00 [place] [address] [phone] Laboratory test 01/19/2019 [facility] Point of Care 59 mg/dL Low 70-1 [address] Glucose 00 [place] [address] [phone] Laboratory test 01/19/2019 [facility] Point of Care 72 mg/dL Normal 70-1 [address] Glucose 00 [place], [place] [address] [phone] Laboratory test 01/19/2019 [facility] Point of Care 83 mg/dL Normal 70-1 [address] Glucose 00 [place], [place] [address] [phone] Laboratory test 01/19/2019 [facility] Clotest SEE RESULT [address] [place] [address] [phone] Laboratory test 01/19/2019 [facility] Surgical SEE RESULT [address] [place] [place] [address] Order [phone] Laboratory test 01/19/2019 [facility] Point of Care 64 mg/dL Low 70-1 [address] Glucose 00 [place] [address] [phone] CBC Auto Diff 01/16/2019 [facility] White Blood 10.3 Normal 3.5- [address] Count 10^3/uL 10.8 [place] [address] [phone] Red Blood Count 4.51 10^6/uL Normal 3.70-4.87 [...] Blood Cells % 0.0 Comp Metabolic 01/16/2019 [facility] Sodium 138 mmol/L Normal 135-[address] [place] [address] [phone] Potassium 4.5 mmol/L Normal 3.5-5.0 Chloride 104 [...] Egfr 92.5 >60 85 Laboratory test 01/16/2019 [facility] Amylase 32 U/L Normal 29 -103 finding [address] [place] [address] [phone] Lipase < 10 U/L Low 11.0-82.0 C Reactive Protein 3.40 mg/L Normal <8.01 Laboratory test 01/03/2019 [facility] Point of 263 mg/dL High 70-100 86 finding 101 [facility] [place] [place] [address] [phone] Basic Metabolic 01/03/2019 [facility] Sodium 138 mmol/L Normal 135-145 Panel [address] [place] [address] [phone] Potassium 4.4 mmol/L Normal 3.5-5.0 Chloride 109 mmol/L Normal 101-111 Co2 Carbon Dioxide 22 mmol/L Normal 22-32 Anion Gap 7 mmol/L Normal 2-11 Glucose 337 mg/dL High 70-100 Blood Urea Nitrogen 14 mg/dL Normal 6-24 Creatinine 0.87 mg/dL Normal 0.51-0.95 BUN/Creatinine Ratio 16.1 Normal 8-20 Calcium 8.8 mg/dL Normal 8.6-10.3 Egfr Non- 68.4 >60 Egfr 82.7 >60 87 Laboratory 01/03/2019 [facility] Point of Care 413 Critical 70 -100 88 test finding [address] Glucose mg/[place] [address] [phone] Laboratory 01/03/2019 [facility] Point of Care > 444 Critical 70-100 89 test finding [address] Glucose mg/[place] [address] [phone] Laboratory 01/03/2019 [facility] Acetaminophen 142 Critical 90 test finding [address] g/[place] [address] [phone] CBC Auto Diff 01/03/2019 [facility] White Blood 7.6 Normal 3.5 -10.[address] Count 10^3/[place] [address] [phone] Red Blood Count 4.20 10^6/uL Normal 3.70-4.87 [...] Blood Cells % 0.0 Comp Metabolic 01/03/2019 [facility] Sodium 137 mmol/L Normal 135-[address] [place] [address] [phone] Potassium 4.5 mmol/L Normal 3.5-5.0 Chloride 105 [...] Egfr 75.7 >60 91 Laboratory test 01/03/2019 [facility] Alcohol < 10 mg/dL Normal <[address] [place] [address] [phone] Salicylate < 2.50 mg/dL <30 TSH (Thyroid Stim Horm) 1.52 mcIU/mL Normal 0.34-5.60 Acetaminophen 226 g/mL Critical high 92 Urine Culture And 01/02/2019 [facility] Urine Culture SEE RESULT [address] [place] [address] [phone] Urinalysis Profile 01/02/2019 [facility] Urine Color Yellow [address] [place] [address] [phone] Urine Appearance Turbid Urine Specific [facility] [place] 1.011 Normal 1.010-1.030 Urine pH 6.0 Normal [...] Cell Present Abnormal Absent Urine Drug 01/02/2019 [facility] Urine None Detected None Detect SCR ED & [address] [place] [address] Screen [phone] Urine Barbiturates Screen None Detected None Detect Urine Benzodiazepine Screen None Detected None Detect Urine Cannabinoids Screen None Detected None Detect Urine Cocaine Screen None Detected None Detect Urine Opiates Screen None Detected None Detect Urine Phencyclidine Screen None Detected None Detect 94 CBC Auto 01/02/2019 [facility] White Blood 11.1 10^3/uL High 3.5-10.[address] [place] [address] [phone] Red Blood Count 4.26 10^6/uL Normal 3.70-4.87 [...] Blood Cells % 0.0 Comp Metabolic 01/02/2019 [facility] Sodium 140 mmol/L Normal 135-[address] [place] [address] [phone] Potassium 4.4 mmol/L Normal 3.5-5.0 Chloride 108 [...] Egfr 99.7 >60 95 Laboratory test 01/02/2019 [facility] Acetaminophen < 15 g/mL 96 finding [address] [place] [address] [phone] Alcohol < 10 mg/dL Normal <10 Salicylate < 2.50 mg/dL <30 TSH (Thyroid Stim Horm) 0.91 mcIU/mL Normal 0.34-5.60 Laboratory test 12/15/2018 [facility] Point of 204 mg/dL High 70-100 97 finding 101 [facility] [place] [address] [phone] Laboratory test 12/15/2018 [facility] Point of 112 mg/dL High 70-100 98 finding 101 [facility] [place] [address] [phone] Laboratory test 12/15/2018 [facility] Lactic Acid 1.3 mmol/L Normal 0.5-2.0 99 finding [address] [place] [address] [phone] Comp Metabolic 12/15/2018 [facility] Sodium 142 mmol/L Normal 135-145 Panel [address] [place] [address] [phone] Potassium 4.0 mmol/L Normal 3.5-5.0 Chloride 107 [...] Critical low 70-100 101 Laboratory test 12/15/2018 [facility] Lipase < 10 U/L Low 11.0 -82.[address] [place] [address] [phone] CBC Auto Diff 12/15/2018 [facility] White Blood 12.0 High 3.5- 10.[address] Count 10^3/[place] [address] [phone] Red Blood Count 4.36 10^6/uL Normal 3.70-4.87 [...] Red Blood Cells % 0.1 Laboratory 12/15/2018 [facility] Troponin-I 0.03 <0.04 102 test finding [address] (TnI) ng/[place] [address] [phone] CBC Auto Diff 12/14/2018 [facility] White Blood 9.6 Normal 3.5 -10.[address] Count 10^3/[place] [address] [phone] Red Blood Count 4.05 10^6/uL Normal 3.70-4.87 [...] Blood Cells % 0.1 Laboratory test 12/14/2018 [facility] Lactic Acid 1.6 mmol/L Normal 0.5-2.0 103 finding [address] [place] [address] [phone] Comp Metabolic 12/14/2018 [facility] Sodium 137 mmol/L Normal 135-145 Panel [address] [place] [address] [phone] Potassium 4.3 mmol/L Normal 3.5-5.0 Chloride 105 [...] Egfr 72.1 >60 104 Laboratory test 12/14/2018 [facility] Troponin-I (TnI) 0.01 ng/ mL <0.04 [address] [place] [address] [phone] B-Type Natriuretic Peptide BNP 10 pg/mL <=100 Laboratory test 12/14/2018 [facility] Point of 128 mg/dL High 70-100 [address] [place] [address] [phone] CBC Auto Diff 12/14/2018 [facility] White Blood 13.8 High 3.5- 10.[address] Count 10^3/[place] [address] [phone] Red Blood Count 4.50 10^6/uL Normal 3.70-4.87 [...] Red Blood Cells % 0.0 Inr/Protime 12/14/2018 [facility] Inr 0.89 Normal 0.82-1.[address] [place] [address] [phone] Laboratory test 12/14/2018 [facility] Partial 23.9 Low 26.0- 36.[address] [place] [address] Time PTT [phone] Troponin-I (TnI) 0.01 ng/mL <0.04 108 Comp Metabolic 12/14/2018 [facility] Sodium 142 mmol/L Normal 135-[address] [place] [address] [phone] Potassium 4.0 mmol/L Normal 3.5-5.0 Chloride 110 [...] Egfr 88.6 >60 109 Laboratory test 12/14/2018 [facility] Magnesium 1.6 mg/dL Low 1.9-2.[address] [place] [address] [phone] Amylase 33 U/L Normal 29-103 Lipase < 10 U/L Low 11.0-82.0 C Reactive Protein 3.27 mg/L Normal <8.01 HCG 2.75 mIU/mL 110 Urinalysis Profile 12/14/2018 [facility] Urine Color Yellow [address] [place] [address] [phone] Urine Appearance Clear Urine Specific [facility] [place] 1.004 Low 1.010-1.030 Urine pH 6.0 Normal [...] Present Abnormal Absent Laboratory test 12/14/2018 [facility] Lactic 1.5 Normal 0.5- 2.0 [address] Acid mmol/[place] [address] [phone] Urine Culture And 12/14/2018 [facility] Urine SEE [address] [place] [address] BELOW [phone] CBC Auto Diff 12/09/2018 [facility] White 9.7 Normal 3.5-10.[address] Blood 10^3/[place] [address] Count [phone] Red Blood Count 4.43 10^6/uL Normal 3.70-4.87 [...] Blood Cells % 0.1 Comp Metabolic 12/09/2018 [facility] Sodium 139 mmol/L Normal 135-[address] [place], [place] [address] [phone] Chloride 106 mmol/L Normal 101-111 Co2 Carbon [...] High 13-39 Laboratory test finding 12/09/2018 [facility] Amylase 23 U/L Low 29-[address] [place] [address] [phone] Lipase < 10 U/L Low 11.0-82.0 CBC Auto 12/05/2018 [facility] White Blood 11.5 10^3/uL High 3.5-10.[address] [place] [address] [phone] Red Blood Count 4.65 10^6/uL Normal 3.70-4.87 [...] Blood Cells % 0.0 Comp Metabolic 12/05/2018 [facility] Sodium 139 mmol/L Normal 135-145 Panel [address] [place] [address] [phone] Potassium 3.9 mmol/L Normal 3.5-5.0 Chloride 107 [...] Egfr 92.5 >60 114 Laboratory test 12/05/2018 [facility] Acetaminophen < 15 g/mL [address] [place] [address] [phone] Alcohol < 10 mg/dL Normal <10 Salicylate < 2.50 mg/dL <30 TSH (Thyroid Stim Horm) 8.38 mcIU/mL High 0.34-5.60 1 REFERENCE VALUE Cutoff: 500 2 REFERENCE VALUE Cutoff: 200 3 REFERENCE VALUE Cutoff: 100 4 REFERENCE VALUE Cutoff: 150 5 ADDITIONAL INFORMATION This report is intended for use in clinical monitoring or management of patients. It is not intended for use in employment-related testing. Test Performed by: [facility] - [address] [address] Paper Cup Machine Operator: Nathaniel Moura M.D. Ph.D.; [facility]# [id number] 6 REFERENCE VALUE Cutoff: 200 mg/L 7 Tylenol 3 8 Metabolite of codeine REFERENCE VALUE Cutoff: 100 9 Crissy Aguilar, Contin; Also a minor metabolite (10%) of codeine and can be seen in low concentrations (<2,000 ng/mL) with poppy seed ingestion. 10 Metabolite of morphine REFERENCE VALUE Cutoff: 100 11 Metabolite of heroin 12 Lortab, [place], Vicodin; Also a very minor metabolite of [...] one of its metabolites (noroxycodone) along with sanfwnmphpj-5-ojtm-glucuronide (metabolite of oxymorphone). Suspect use of oxycodone and/or oxymorphone within the past three days. ADDITIONAL INFORMATION This test was developed and its performance characteristics determined by [facility] in a manner consistent with CLIA requirements. This test has not been cleared or approved by the U.S. Food and Drug Administration. 41 [id number] 42 [id number] 43 SEE RESULT BELOW Name: CECILIO ALFARO Cameron : [address]: Rosa Schroeder MD Acct: [id number] Unit: [id number] AGE: 53 Location: [facility] Re02/16/19 SEX: F Status: REG REF SPEC: [id number] ANKUR: 02/16/19-[address]: Rosa Schroeder MD REQ: [id number] RECD: 02/16/191226 STATUS: COMP _ SOURCE: URINE SPDESC: ORDERED: Urine Culture COMMENTS: [id number] Urine Source: Random Procedure Result Reported Site Urine Culture Final 02/18/19- 0816 ML Organism 1 ESCHERICHIA COLI [place] Count 10-25,000 (Moderate) CFU/ML Organism 2 ENTEROCOCCUS FAECIUM [place] Count >100,000 (Many) CFU/ML 1. ESCHERICHIA COLI M.I.C. RX --------- ------ Ampicillin 8 S Cefazolin <=4 S Cefepime <=1 S Ceftriaxone <=1 S Ciprofloxacin <=0.25 S Gentamicin <=1 S Levofloxacin <=0.12 S Meropenem <=0.25 S Nitrofurantoin <=16 S Tetracycline >=16 R Pipercillin/Tazobactam <=4 S Trimethoprim/Sulfamethoxazole <=20 S Amoxicillin/Clavulanic Acid <=2 S Aztreonam <=1 S CONTINUED ON NEXT PAGE DEPARTMENT OF PATHOLOGY, [address] [place] [address] Tay Gamboa M.D. Director [facility] # [id number] Patient: CECILIO ALFARO [id number] (Continued) Specimen: [id number] Collected: 02/16/19 Received: 02/16/19 (Continued) Procedure Result [...] These antibiotics are not available in the [facility] Formulary Contact the Microbiology Department for any additional antibiotic reporting. Contact the Microbiology Department for any additional antibiotic reporting. * ML - Main Lab . END OF REPORT DEPARTMENT OF PATHOLOGY, [address] [place] [address] Tay Gamboa M.D. Director [facility] # [id number] 44 Living Skills Advisor: [id number] Living Skills Advisor: [id number] Living Skills Advisor: [id number] 47 SEE RESULT BELOW Name: CECILIO ALFARO Cameron : [address]: Violeta Yusuf MD Acct: [id number] Unit: [id number] AGE: 53 Location: ED Re02/09/19 SEX: F Status: DEP ER SPEC: [id number] ANKUR: 02/09/19 [facility] DR: Maycol Al MD REQ: [id number] RECD: 02/09/19 STATUS: TASHA BARFIELD DR: [facility] Rosa Schroeder MD _ SOURCE: URINE SPDESC: ORDERED: Urine Culture Procedure Result Reported Site Urine Culture Final 02/10/19- 1600 ML No growth of clinically significant organisms * ML - Main Lab . END OF REPORT DEPARTMENT OF PATHOLOGY, [address] [place] [address] Tay Gamboa M.D. Director [facility] # [id number] 48 Critical Result LACT:2.9 Called to [id number] at: 19:36:39 by:[id number] Read back by:[id number] [facility] Severe Sepsis and Septic Shock Management Bundle Measure requires all lactic acids initially measuring >2.0 mmol/L be repeated. 49 Living Skills Advisor: [id number] 50 Reference ranges based on room air. [...] 5 Kidney failure <15 (or dialysis) 53 [id number] 54 Therapeutic target for the treatment of diabetes mellitus patients is <7% HBA1C, and in selective patients <6.0%. Please refer to [place] [employer] diabetic care guidelines for further information. 55 SEE RESULT BELOW Name: CECILIO ALFARO Cameron : [address]: Neo Kauffman MD Acct: [id number] Unit: [id number] AGE: 53 Location: ED Re02/03/19 SEX: F Status: DEP ER SPEC: [id number] ANKUR: 02/03/[address]: Senia OLSEN REQ: [id number] RECD: 02/03/19 STATUS: TASHA BARFIELD DR: Rosa Kauffman MD _ SOURCE: URINE SPDESC: ORDERED: Urine Culture Procedure Result Reported Site Urine Culture Final 02/06/19- 0850 ML Organism 1 ENTEROCOCCUS FAECALIS [place] Count >100,000 (Many) CFU/ML 1. ENTEROCOCCUS FAECALIS [...] These antibiotics are not available in the [facility] Formulary Contact the Microbiology Department for any additional antibiotic reporting. * ML - Main Lab . END OF REPORT DEPARTMENT OF PATHOLOGY, [address] [place] [address] Tay Gamboa M.D. Director [facility] # [id number] 56 Specimen hemolyzed. Result may not be valid. [facility] Severe Sepsis and Septic Shock [...] [address]: Sherita Lui MD Acct: [id number] Unit: [id number] AGE: 53 Location: [place] [address]- Re02/01/19 Dis: 02/03/19 SEX: F Status: DIS [place] SPEC: [id number] ANKUR: 02/01/19 [facility] DR: Maycol lA MD REQ: [id number] RECD: 02/01/19 STATUS: TASHA BARFIELD DR: Rosa Schroeder MD _ SOURCE: BLOOD,VENO SPDES: ORDERED: Blood Cult Procedure Result Reported Site Aerobic Culture Bottle Final 02/06/19- 5 ML No Growth Day 5 Anaerobic Culture Bottle Final 02/06/19- 3 ML No Growth Day 5 * ML - Main Lab . END OF REPORT DEPARTMENT OF PATHOLOGY, [address] [place] [address] Tay Gamboa M.D. Director [facility] # [id number] 59 SEE RESULT BELOW Name: CECILIO ALFARO : [address]: Avery Leavitt MD Acct: [id number] Unit: [id number] AGE: 53 Location: [place] [address] Re02/01/19 SEX: F Status: ADM IN SPEC: [id number] ANKUR: 02/01/19 [facility] DR: Maycol Al MD REQ: [id number] RECD: 02/01/19 STATUS: TASHA BARFIELD DR: Rosa Schroeder MD _ SOURCE: URINE SPDESC: ORDERED: Urine Culture Procedure Result Reported Site Urine Culture Final 02/02/19- 1607 ML No Growth (<1,000 CFU/mL) * ML - Main Lab . END OF REPORT DEPARTMENT OF PATHOLOGY, [address] [place] [address] Tay Gamboa M.D. Director [facility] # [id number] 60 Living Skills Advisor: [id number] 61 Living Skills Advisor: [id number] 62 Standard intensity warfarin therapeutic range: 2.0-3.0 High intensity warfarin therapeutic range: 2.5-3.5 63 Troponin-I testing on Plasma Separator Tubes (PST) has a known false positive rate of 0.20-0.40%. All positive troponins reflex immediately to secondary confirmatory testing. Using the [employer] DxI 800 Access Immunoassay systems, the 99th percentile upper reference limit was demonstrated to be < 0.03 ng/mL. 64 [facility] Severe Sepsis and Septic Shock [...] 5 Kidney failure <15 (or dialysis) 66 [id number] 67 SEE RESULT BELOW Name: CECILIO ALFARO : [address]: Rosa Schroeder MD Acct: [id number] Unit: [id number] AGE: 53 Location: [facility] Re01/30/19 SEX: F Status: REG REF SPEC: [id number] ANKUR: 01/30/[address]: Rosa Schroeder MD REQ: [id number] RECD: 01/31/19 STATUS: COMP _ SOURCE: URINE SPDESC: ORDERED: Urine Culture COMMENTS: [id number] Urine Source: Random Procedure Result Reported Site Urine Culture Final 02/02/19- 830 ML Organism 1 FAY CUMMINGS [place] Count 10-25,000 (Moderate) CFU/ML Organism 2 NORMAL MICHELLE [place] Count 1-10,000 (Few) CFU/ML 1. FAY CUMMINGS [...] END OF REPORT DEPARTMENT OF PATHOLOGY, [address] [place] [address] Tay Gamboa M.D. Director [place] # [id number] 68 SEE RESULT BELOW Name: ANGELINACECILIO Cameron : [address]: Corey Easton MD Acct: [id number] Unit: [id number] AGE: 53 Location: ED Re01/28/19 SEX: F Status: DEP ER SPEC: [id number] ANKUR: 01/28/19-1950 [facility] DR: Corey Easton MD REQ: [id number] RECD: 01/28/19 STATUS: COMP OTHR DR: Rosa Schroeder MD _ SOURCE: URINE SPDESC: ORDERED: Urine Culture Procedure Result Reported Site Urine Culture Final 01/31/19- 933 ML Organism 1 ESCHERICHIA COLI [place] Count 10-25,000 (Moderate) CFU/ML Organism 2 ENTEROCOCCUS FAECALIS [place] Count 75-100,000 (Many) CFU/ML 1. ESCHERICHIA COLI [...] CONTINUED ON NEXT PAGE DEPARTMENT OF PATHOLOGY, [address] [place] [address] Tay Gamboa M.D. Director [facility] # [id number] Patient: CECILIO ALFARO [id number] (Continued) Specimen: [id number] Collected: 01/28/19 Received: 01/28/19 (Continued) Procedure Result Reported Site Urine Culture Final (continued) 01/31/19- 933 2. ENTEROCOCCUS FAECALIS (continued) M.I.C. RX --------- ------ Levofloxacin 0.5 S Linezolid 2 S Nitrofurantoin <=16 S * Quinupristin/Dalfopristin 4 R * Streptomycin High Level S Tetracycline <=1 S Doxycycline - Deduced S * Minocycline - Deduced S Tigecycline <=0.12 S Vancomycin 2 S Imipenem-Deduced S * Ampicillin/Sulbactam-Deduced S * These antibiotics are not available in the [facility] Formulary Contact the Microbiology Department for any additional antibiotic reporting. Contact the Microbiology Department for any additional antibiotic reporting. * ML - Main Lab . END OF REPORT DEPARTMENT OF PATHOLOGY, [address] [place] [address] Tay Gamboa M.D. Director [facility] # [id number] 69 Standard intensity warfarin therapeutic range: 2.0-3.0 High intensity warfarin therapeutic range: 2.5-3.5 70 Troponin-I testing on Plasma Separator Tubes (PST) has a known false positive rate of 0.20-0.40%. All positive troponins reflex immediately to secondary confirmatory testing. Using the [employer] DxI 800 Access Immunoassay systems, the 99th percentile upper reference limit was demonstrated to be < 0.03 ng/mL. 71 <5.0 Negative 5.0 - 25.0 Indeterminate (Repeat testing recommended after 72 hours) >25.0 Positive Perimenopausal women can display HCG levels of up to 20 mIU/mL 72 [facility] Severe Sepsis and Septic Shock [...] 5 Kidney failure <15 (or dialysis) 74 [facility] Severe Sepsis and Septic Shock [...] 76 SEE RESULT BELOW Name: CECILIO ALFARO Cameron : [address]: Temi Brewer Acct: [id number] Unit: [id number] AGE: 53 Location: ED Re01/23/19 SEX: F Status: DEP ER SPEC: [id number] ANKUR: 01/24/19 [facility] DR: Temi Trujillo MD REQ: [id number] RECD: 01/24/19 STATUS: TASHA BARFIELD DR: Rosa Schroeder MD _ SOURCE: URINE SPDESC: ORDERED: Urine Culture Procedure Result Reported Site Urine Culture Final 01/26/19- 23 ML Organism 1 ESCHERICHIA COLI [place] Count 25-50,000 (Moderate) CFU/ML Organism 2 NORMAL MICHELLE [place] Count 25-50,000 (Moderate) CFU/ML 1. ESCHERICHIA COLI [...] END OF REPORT DEPARTMENT OF PATHOLOGY, [address] [place] [address] Tay Gamboa M.D. Director [facility] # [id number] 77 Living Skills Advisor: [id number] Living Skills Advisor: [id number] 79 Repeat Test Insufficient sample Living Skills Advisor: [id number] Living Skills Advisor: [id number] 81 Living Skills Advisor: [id number] 82 SEE RESULT BELOW Name: CECILIO ALFARO Cameron : [address]: Jonathan Reynoso DO Acct: [id number] Unit: [id number] AGE: 53 Location: [place] Re01/19/19 SEX: F Status: DEP SDC SPEC: [id number] ANKUR: 01/19/[address]: Jonathan Reynoso DO REQ: [id number] RECD: 01/19/19144 STATUS: TASHA BARFIELD DR: Rosa Schroeder MD _ SOURCE: GAS ANTRUM SPDESC: ORDERED: Clotest Procedure Result Reported Site Clotest Final 01/20/19- 808 ML Clotest Negative * ML - Main Lab . END OF REPORT DEPARTMENT OF PATHOLOGY, [address] [place] [address] Tay Gamboa M.D. Director [facility] # [id number] 83 SEE RESULT BELOW Name: CECILIO ALFARO : [address]: Jonathan Reynoso DO Acct: [id number] Unit: [id number] AGE: 53 Location: OR Re/21/19 SEX: F Status: DEP SDC SPEC: [id number] ANKUR: 01/19/19 [facility] DR: Jonathan Reynoso DO REQ: [id number] RECD: 01/19/19597 STATUS: NILS BARFIELD DR: Rosa Schroeder MD [...] CONTINUED ON NEXT PAGE DEPARTMENT OF PATHOLOGY, [address] [place] [address] Tay Gamboa M.D. Director [facility] # [id number] RUN DATE: 01/22/19 [facility] LAB LIVE PAGE 2 Patient: CECILIO ALFARO [id number] (Continued) FINAL DIAGNOSIS (Continued) PRE-OPERATIVE DIAGNOSIS 6) [...] CONTINUED ON NEXT PAGE DEPARTMENT OF PATHOLOGY, [address] [place] [address] Tay Gamboa M.D. Director [facility] # [id number] RUN DATE: 01/22/19 [facility] LAB LIVE PAGE 3 Patient: CECILIO ALFARO [id number] (Continued) GROSS DESCRIPTION (Continued) tissue fragments which is submitted entirely in one cassette. Signed by and Reported on: Tay Gamboa MD 1439 END OF REPORT DEPARTMENT OF PATHOLOGY, [address] [place] [address] Tay Gamboa M.D. Director [facility] # [id number] 84 Living Skills Advisor: [id number] 85 Because ethnic data is not always [...] 5 Kidney failure <15 (or dialysis) 86 Living Skills Advisor: [id number] 87 Because ethnic data is not always [...] 5 Kidney failure <15 (or dialysis) 88 Living Skills Advisor: [id number] Living Skills Advisor: [id number] 90 Critical Result ACTM:141.6 Called to RITCHIE at: 15:26:33 by:[id number] Read back by:[email or web address] Therapeutic concentration: <50 ug/mL [...] dialysis) 92 Critical Result ACTM:225.7 Called to [id number] at: 13:20:54 by:[id number] Read back by:[id number] Therapeutic concentration: <50 ug/mL Toxic concentration: >120 ug/mL 93 SEE RESULT BELOW Name: CECILIO ALFARO : [address]: Juan David Cardoza MD Acct: [id number] Unit: [id number] AGE: 53 Location: ED Re01/02/19 SEX: F Status: REG ER SPEC: [id number] ANKUR: 01/02/19-1417 [facility] DR: Lupis Cardoza MD REQ: [id number] RECD: 01/02/19 STATUS: COMP LICO DR: Rosa Schroeder MD _ SOURCE: URINE [facility]ITALS[facility]C: ORDERED: Urine Culture Procedure Result Reported Site Urine Culture Final 01/03/19- 1135 ML Mixed michelle; possible contamination. Suggest resubmission. * ML - Main Lab . END OF REPORT DEPARTMENT OF PATHOLOGY, [address] [place] [address] Tay Gamboa M.D. Director [facility] # [id number] 94 The urine specimen was tested at [...] <50 ug/mL Toxic concentration: >120 ug/mL 97 Living Skills Advisor: [id number] Living Skills Advisor: [id number] 99 [facility] Severe Sepsis and Septic Shock [...] dialysis) 101 Critical Result GLU:46 Called to [id number] at: 16:46:21 by:[id number] Read back by:[id number] 102 Troponin-I testing on Plasma Separator Tubes (PST) has a known false positive rate of 0.20-0.40%. All positive troponins reflex immediately to secondary confirmatory testing. Using the [employer] DxI 800 Access Immunoassay systems, the 99th percentile upper reference limit was demonstrated to be < 0.03 ng/mL. 103 [facility] Severe Sepsis and Septic Shock [...] immediately to secondary confirmatory testing. Using the [employer] DxI 800 Access Immunoassay systems, the 99th percentile upper reference limit was demonstrated to be < 0.03 ng/mL. 106 Living Skills Advisor: [id number] 107 Standard intensity warfarin therapeutic range: 2.0-3.0 High intensity warfarin therapeutic range: 2.5-3.5 108 Troponin-I testing on Plasma Separator Tubes (PST) has a known false positive rate of 0.20-0.40%. All positive troponins reflex immediately to secondary confirmatory testing. Using the [employer] DxI 800 Access Immunoassay systems, the 99th [...] levels of up to 20 mIU/mL 111 [facility] Severe Sepsis and Septic Shock Management Bundle Measure requires all lactic acids initially measuring >2.0 mmol/L be repeated. 112 SEE RESULT BELOW Name: ANGELINACECILIO Cameron : [address]: Violeta Yusuf MD Acct: [id number] Unit: [id number] AGE: 53 Location: ED Re12/14/18 SEX: F Status: DEP ER SPEC: [id number] ANKUR: 12/14/18-6 [facility] DR: Violeta Yusuf MD REQ: [id number] RECD: 12/14/18 STATUS: TASHA BARFIELD DR: Rosa Schroeder MD _ SOURCE: URINE SPDESC: ORDERED: Urine Culture Procedure Result Reported Site Urine Culture Final 12/15/18- 1256 ML No growth of clinically significant organisms * ML - Main Lab . END OF REPORT DEPARTMENT OF PATHOLOGY, [address] [place] [address] Tay Gamboa M.D. Director [facility] # [id number] 113 Because ethnic data is not always [...] concentration: <50 ug/mL Toxic concentration: >120 ug/mL Procedures Date Code Description Status 05/23/2019 05086 Inject Tendon Sheath Or Ligament Aponeurosis Eg Completed Plantar Fascia 02/27/2019 [id number] Mammogram Completed 01/19/2019 10201452 Colonoscopy Completed 10/26/2017 [id number] Diabetic Retinal Eye Exam Completed 05/01/2016 75197884 Mammogram Completed Medical Devices Description No Information Available Encounters Type Date Location Provider Dx Diagnosis Office Visit 05/18/2019 Surgical Alexander Hernandez, K42.9 Umbilical hernia 3:30p [facility], FACS without obstruction or gangrene E66.01 Morbid (severe) obesity due to excess calories Z72.0 Tobacco use Office Visit 05/11/2019 3:45p Surgical Alexander Godinez K42.9 Umbilical hernia [facility] MD, without FACS obstruction or gangrene Z72.0 Tobacco use E66.01 Morbid (severe) obesity due to excess calories Office Visit 03/23/2019 1:40p [facility] Internal Rosa Schroeder MD I10 Essential (primary) Medicine - Ccmob hypertension B35.6 Tinea cruris R53.83 Other fatigue G47.30 Sleep apnea, unspecified F17.210 Nicotine dependence, cigarettes, uncomplicated L03.116 Cellulitis of left lower limb Office Visit 02/28/2019 Neurosurgery Vassilios M47.896 Other 2:00p [facility] MD spondylosis, lumbar region Office Visit 02/07/2019 [facility] Internal Rosa Schroeder MD N39.0 Urinary tract 3:40p Medicine - Ccmob infection, site not specified R10.84 Generalized abdominal pain Office Visit 02/02/2019 11:33a [facility] Essie N39.0 Urinary tract Assoc,matthieu Up, infection, site Hospitalists [employer] OFFICER not specified Office Visit 02/01/2019 11:32a [facility] Quique E87.6 Hypokalemia Assoc,pc Adelina Aden Hospitalists E16.2 Hypoglycemia, unspecified R10.9 Unspecified abdominal pain R30.0 Dysuria Office Visit 01/30/2019 4:40p [facility] Internal Rosa Schroeder MD N39.0 Urinary tract Medicine - Ccmob infection, site not specified B37.3 Candidiasis of vulva and vagina I10 Essential (primary) hypertension Z12.31 Encntr screen mammogram for malignant neoplasm of breast Office Visit 01/30/2019 [facility] Mayer Coch, E11.65 Type 2 diabetes 11:20a Endocrinology of mellitus with [facility] hyperglycemia Z79.4 MCFP (current) use of insulin Office Visit 01/12/2019 10:20a [facility] Internal Robyn Guerrero, B37.2 Candidiasis of Medicine - Ccmob skin and nail T14.91xD Suicide attempt, subsequent encounter Office Visit 12/22/2018 Neurosurgery Vassilios M47.896 Other 11:00a [facility] MD spondylosis, lumbar region M48.062 Spinal stenosis, lumbar region with neurogenic claudication Office Visit 12/20/2018 3:00p Spine Nav[facility] Consuelo Corrales, M51.27 Other intervertebral Of [facility] PA-C disc displacement, lumbosacral region Office Visit 12/20/2018 8:00a [facility] Internal Rosa Schroeder, F25.9 Schizoaffective Medicine - MD disorder, unspecified Ccmob E11.65 Type 2 diabetes mellitus with hyperglycemia 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, lumbosacral region I10 Essential (primary) hypertension Z72.0 Tobacco use J45.909 Unspecified asthma, uncomplicated K86.81 Exocrine pancreatic insufficiency Office Visit 12/08/2018 [facility] Mayer Coch, E11.65 Type 2 diabetes 9:40a Endocrinology of MD mellitus with [facility] hyperglycemia 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 (current) use of insulin E03.9 Hypothyroidism, unspecified F25.9 Schizoaffective disorder, unspecified Assessments Date Code Description Provider 05/23/2019 M65.4 Radial styloid tenosynovitis [Adelina Espinoza] 05/22/2019 K42.9 Umbilical hernia without obstruction or Alexander Hernandez MD , FACS gangrene 05/18/2019 K42.9 Umbilical hernia without obstruction or [...] and vagina Rosa Schroeder MD 01/30/2019 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 (current) use of insulin Moreno Sandoval MD [...] Schroeder MD 12/20/2018 K86.81 Exocrine pancreatic insufficiency oRsa Schroeder MD 12/08/2018 E11.65 Type 2 diabetes mellitus with Moreno Sandoval MD hyperglycemia 12/08/2018 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 (current) use of insulin Moreno Sandoval MD 12/08/2018 E03.9 Hypothyroidism, unspecified Moreno Sandoval MD 12/08/2018 F25.9 Schizoaffective disorder, unspecified Moreno Sandoval MD Plan of Treatment Future Appointment(s):07/03/2019 1:40 pm - Moreno Sandoval MD at [facility]06/13/2019 10:15 am - Brie Portillo, LUZ at [facility]06/13/2019 10:15 am - Alexander Hernandez MD, FACS at [facility]06/21/2019 1:00 pm - Alexander Hernandez MD, FACS at [facility]05/29/2019 2:00 pm - Yesenia Alvarez MD at [facility]05/23/2019 - Marline Duarte M.D.M65.4 Radial styloid tenosynovitis [de Quervain]Follow up:Follow up: As needed Functional Status Description No Information Available Mental Status Description No Information Available Referrals Refer to Reason for Referral Status Appt Date Rosa Schroeder M.D. Sent [address] [place] [address] [place] [address] [phone] Karolina Pradhan MD pt with long standing umbilical hernia now causing Sent pain and tender to palpation [address] [place], [place] [address] [phone] [facility] pt with known BETZY, has been without cpap for years, Sent now complaining of excessive daytime fatigue [address] [place] [address] [phone]
[2019-06-03 21:31] VITALS: BP 142/80
== END 2019-06-03 21:31 | disposition home or self-care (01) ==
LOC: ED 19:56
DX: T18.9XXA Foreign body of alimentary tract, part unspecified, initial encounter (principal); F43.9 Reaction to severe stress, unspecified; X58.XXXA Exposure to other specified factors, initial encounter; Y92.9 Unspecified place or not applicable; E11.9 Type 2 diabetes mellitus without complications; I10 Essential (primary) hypertension; J45.909 Unspecified asthma, uncomplicated; K21.9 Gastro-esophageal reflux disease without esophagitis; F17.210 Nicotine dependence, cigarettes, uncomplicated; Z79.899 Other long term (current) drug therapy; Z88.5 Allergy status to narcotic agent; Z88.0 Allergy status to penicillin; Z88.2 Allergy status to sulfonamides; Z88.8 Allergy status to other drugs, medicaments and biological substances; Z88.1 Allergy status to other antibiotic agents; Z91.040 Latex allergy status
CPT/HCPCS: 71045; 74019; 99283; A9270-GY

== ENCOUNTER 2019-06-04 16:53 | Emergency (ER) | payer MEDICARE, MEDICAID ==
--- NOTE | 2019-06-04 17:12 | ED ---
Psychiatric Complaint - HPI Summary HPI Summary: Patient is a 53 y/o F presenting to the ED on a 945 for a psychiatric complaint. Patient told staff at [facility] that she would plan to overdose on Tylenol. Patient states that she has been attempting to see a therapist, Sahil, at [facility], but has been unable to see them. Patient reports back pain and an abdominal hernia. Patient denies any fever, chills, erythema of eyes, sore throat, CP, SOB, cough, abdominal pain, N/V, dysuria, hematuria, edema, rash, dizziness, or SI at the present time. Patient will see a surgeon on 06/13/19 for her umbilical hernia. - History Of Current Complaint Chief Complaint: EDSuicidal Time Seen by Provider: 06/04/19 17:01 Hx Obtained From: Patient Hx Last Menstrual Period: "last month" Onset/Duration: Sudden Onset, Resolved Timing: Minutes Severity Initially: Moderate Severity Currently: Moderate Aggravating Factor(s): Nothing Alleviating Factor(s): Nothing Associated Signs And Symptoms: Positive: Negative Has Suicidal: Denies: Thoughts, With A Plan Has Homicidal: Denies: Thoughts - Allergies/Home Medications Allergies/Adverse Reactions: Allergies Allergy/AdvReac Type Severity Reaction Status Date / Time lurasidone [From Latuda] Allergy Severe Altered Verified 06/03/19 20:09 Mental Status ciprofloxacin Allergy Intermediate Dizziness Verified 06/03/19 20:09 latex Allergy Mild Rash Verified 06/03/19 20:09 lithium Allergy Mild See Comment Verified 06/03/19 20:09 nalbuphine Allergy Unknown Verified 06/03/19 20:09 Reaction Details naldemedine Allergy Unknown Verified 06/03/19 20:09 Reaction Details nitrofurantoin Allergy See Comment Verified 06/03/19 20:09 [From Macrobid] Penicillins Allergy Rash Verified 06/03/19 20:09 perphenazine Allergy Unknown Verified 06/03/19 20:09 Reaction Details Sulfa (Sulfonamide Allergy Hives Verified 06/03/19 20:09 Antibiotics) tramadol Allergy Altered Verified 06/03/19 20:09 Mental Status ENVIRONMENTAL Allergy Mild SINUS Uncoded 05/17/19 18:14 PMH/Surg Hx/FS Hx/Imm Hx Previously Healthy: Yes Endocrine/Hematology History: Reports: Hx Diabetes - TYPE 2, Hx Thyroid Disease , Other Endocrine/Hematological Disorders - Chronic pancreatitis Denies: Hx Anticoagulant Therapy Cardiovascular History: Reports: Hx Hypertension, Other Cardiovascular Problems/ Disorders - HX OF PSVT 04/2008 Denies: Hx Hypercholesterolemia, Hx Pacemaker/ICD Respiratory History: Reports: Hx Asthma, Hx Seasonal Allergies, Hx Sleep Apnea - HX OF IN THE PAST Denies: Hx Chronic Bronchitis, Hx Chronic Obstructive Pulmonary Disease (COPD ), Hx Cystic Fibrosis, Hx Lung Cancer, Hx Pleural Effusion, Hx Pneumonia, Hx Pulmonary Edema, Hx Pulmonary Embolism, Other Respiratory Problems/Disorders GI History: Reports: Hx Gall Bladder Disease, Hx Gastroesophageal Reflux Disease - ON MEDICATION FOR, Hx Gastrointestinal Bleed, Hx Irritable Bowel, Other GI Disorders - HX OF pancreatitis- STATES LAST ABOUT 2 WEEKS AGO- STATES SLIGHT CASE Denies: Hx Ulcer History: Reports: Other Problems/Disorders - urinary incontinence Denies: Hx Dialysis, Hx Renal Disease Musculoskeletal History: Reports: Hx Arthritis, Hx Back Problems, Other Musculoskeletal History - GEN MUSCULOSKELETAL PAIN Denies: Hx Rheumatoid Arthritis, Hx Bursitis, Hx Congenital Bone Abnormalities, Hx Fibromyalgia, Hx Gout, Hx Orthopedic Injury, Hx Osteoporosis, Hx Scoliosis, Hx Tendonitis Sensory History: Reports: Hx Contacts or Glasses, Hx Vision Problem Denies: Hx Cataracts, Hx Eye Injury, Hx Eye Prosthesis, Hx Glaucoma, Hx Macular Degeneration, Hx Hearing Aid, Other Sensory Impairments Opthamlomology History: Reports: Hx Contacts or Glasses, Hx Vision Problem Denies: Hx Cataracts, Hx Eye Injury, Hx Eye Prosthesis, Hx Glaucoma, Hx Macular Degeneration, Other Sensory Impairments Neurological History: Reports: Hx Developmental Delay - intellectual disability , Hx Seizures - STATES WITH ALLERGIC REACTION TO TRAMADOL Denies: Hx Dementia, Hx Headaches, Other Neuro Impairments/Disorders Psychiatric History: Reports: Hx Anxiety, Hx Depression, Hx Panic Disorder - TAKES DAILY, Hx Post Traumatic Stress Disorder, Hx Inpatient Treatment, Hx Community Mental Health Tx, Hx Bipolar Disorder - pt manic, Hx Suicide Attempt, Hx of Violent Episodes Against Others, Other Psychiatric Issues/Disorders - PSYCHOSIS NOS, HX OF PTSD, SCHIZOAFFECTIVE DISORDER, BORDERLINE PERSONALITY Denies: Hx Attention Deficit Hyperactivity Disorder, Hx Eating Disorder, Hx Schizophrenia, Hx Substance Abuse - Cancer History Cancer Type, Location and Year: None reported - Surgical History Surgical History: Yes Surgery Procedure, Year, and Place: 2011-CATARACT EXTRACTION;. GALLBLADDER REMOVED ; Hx Anesthesia Reactions: No - Immunization History Date of Tetanus Vaccine: unk Date of Influenza Vaccine: fall 2017 Infectious Disease History: No Infectious Disease History: Denies: Hx Clostridium Difficile, Hx Hepatitis, Hx Human Immunodeficiency Virus (HIV), Hx of Known/Suspected MRSA, Hx Shingles, Hx Tuberculosis, Hx Known/ Suspected VRE, Hx Known/Suspected VRSA, History Other Infectious Disease, Traveled Outside the [place] in Last 30 Days - Family History Known Family History: Positive: Other - Anxiety and depression, [place] - father Negative: Cardiac Disease, Hypertension, Diabetes Family History: Depression and anxiety - Social History Occupation: Disabled Lives: With Family Alcohol Use: None Hx Substance Use: No Substance Use Type: Reports: None Hx Tobacco Use: Yes Smoking Status (MU): Light Every Day Tobacco Smoker Type: Cigarettes Amount Used/How Often: 1/2 PPD FOR LAST 30 DAYS, NO OTHER TOBACCO Length of Time of Smoking/Using Tobacco: since she was "young" Have You Smoked in the Last Year: Yes - Patient has smoked within the last 30 days Review of Systems Negative: Fever, Chills Negative: Erythema Negative: Sore Throat Negative: Chest Pain Negative: Shortness Of Breath, Cough Positive: Other - Positive abdominal hernia. Negative: Abdominal Pain, Vomiting , Nausea Positive: Myalgia - Back pain. Negative: Edema Negative: Rash Neurological: Other - Negative dizziness All Other Systems Reviewed And Are Negative: Yes Physical Exam - Summary Physical Exam Summary: Constitutional: Well-developed, Well-nourished, Alert. (-) Distressed Skin: Warm, Dry HENT: Normocephalic; Atraumatic Eyes: Conjunctiva normal Neck: Musculoskeletal ROM normal neck. (-) JVD, (-) Stridor, (-) Tracheal deviation Cardio: Rhythm regular, rate normal, Heart sounds normal; Intact distal pulses; The pedal pulses are 2+ and symmetric. Radial pulses are 2+ and symmetric. (-) Murmur Pulmonary/Chest wall: Effort normal. (-) Respiratory distress, (-) Wheezes, (-) Rales Abd: Soft, (-) tenderness, (-) Distension, (-) Guarding, (-) Rebound. Hernia is soft and easily reducible. Musculoskeletal: (-) Edema Lymph: (-) Cervical adenopathy Neuro: Alert, Oriented x3 Psych: Mood and affect Normal Triage Information Reviewed: Yes Vital Signs On Initial Exam: Initial Vitals Temp Pulse Resp BP Pulse Ox 97.6 F 91 18 153/98 97 06/04/19 16:56 06/04/19 16:56 06/04/19 16:56 06/04/19 16:56 06/04/19 16:56 Vital Signs Reviewed: Yes Procedures - Sedation Patient Received Moderate/Deep Sedation with Procedure: No Diagnostics - Vital Signs Vital Signs Temp Pulse Resp BP Pulse Ox 06/04/19 16:56 97.6 F 91 18 153/98 97 - Laboratory Lab Statement: Any lab studies that have been ordered have been reviewed, and results considered in the medical decision making process. Course/Dx - Course Course Of Treatment: Patient is a 53 y/o F presenting to the ED on a 945 for a psychiatric complaint. Patient told staff at [facility] that she would plan to overdose on Tylenol. Patient states that she has been attempting to see a therapist, Sahil, at [facility], but has been unable to see them. Patient reports back pain and an abdominal hernia. Patient denies any fever, chills, erythema of eyes, sore throat, CP, SOB, cough, abdominal pain, N/ V, dysuria, hematuria, edema, rash, dizziness, or SI at the present time. Patient will see a surgeon on 06/13/19 for her umbilical hernia. On exam, hernia is soft and easily reducible. Patient will be discharged with a diagnosis of adjustment disorder. Follow up with [facility] and your surgeon for your umbilical hernia. - Differential Dx/Clinical Impression Provider Diagnosis: Adjustment disorder Discharge ED - Sign-Out/Discharge Documenting (check all that apply): Patient Departure - Discharge - Discharge Plan Condition: Stable Disposition: HOME Prescriptions: Lidocaine PATCH 5%* [Lidoderm 5% Patch*] 1 patch TRANSDERM DAILY #1 patch Referrals: Rosa Schroeder MD [Primary Care Provider] - Additional Instructions: Follow up with [facility] within 48 hours and follow up with your surgeon for your umbilical hernia. Return to the Emergency Department for worsening or changing symptoms. - Attestation Statements Document Initiated by Scribe: Yes Documenting Scribe: Albina Fuchs Provider For Whom Scribe is Documenting (Include Credential): Brian St MD Scribe Attestation: Albina Rosales, scribed for Brian St MD on 06/04/19 at 1712. Status of Scribe Document: Ready
[2019-06-04] MEDS ORDERED: Lidocaine PATCH 5%* 1 PATCH TRANSDERM ONE (17:43)
[2019-06-04 17:50] VITALS: BP 149/86
[2019-06-04] MEDS ORDERED: Lidocaine Patch REMOVE* 1 NOTE MISC SCH (21:00)
== END 2019-06-04 17:49 | disposition home or self-care (01) ==
LOC: ED 16:53
DX: F43.22 Adjustment disorder with anxiety (principal); E11.9 Type 2 diabetes mellitus without complications; I10 Essential (primary) hypertension; K21.9 Gastro-esophageal reflux disease without esophagitis; K42.9 Umbilical hernia without obstruction or gangrene; Z88.5 Allergy status to narcotic agent; Z88.0 Allergy status to penicillin; Z88.2 Allergy status to sulfonamides; Z88.8 Allergy status to other drugs, medicaments and biological substances; Z88.1 Allergy status to other antibiotic agents; Z91.040 Latex allergy status; F17.210 Nicotine dependence, cigarettes, uncomplicated
CPT/HCPCS: 99282; A9270-GY

== ENCOUNTER 2019-06-06 16:32 | Emergency (ER) | payer MEDICARE, MEDICAID ==
[2019-06-06 17:15] VITALS: BP 116/56
--- NOTE | 2019-06-06 17:43 | UC ---
UC General HPI - HPI Summary HPI Summary: 53-year-old woman comes in with a chief complaint of umbilical pain and UTI symptoms. She has burning with urination and urinary frequency she feels like she has a UTI. She's been having chronic intermittent umbilical pain.'s been diagnosed with an umbilical hernia and she is scheduled to have that repaired on June 13, 2019 with surgery. She was prescribed lidocaine patches to use on her umbilicus however insurance wouldn't pay for them and she does not have anymore left. She said that they have helped in the past. Fevers no chills. No change in bowel. - History of Current Complaint Chief Complaint: UCAbdominalPain Stated Complaint: URINARY COMPLAINT Time Seen by Provider: 06/06/19 16:35 Hx Last Menstrual Period: 1.5 years Pain Intensity: 8 - Allergy/Home Medications Allergies/Adverse Reactions: Allergies Allergy/AdvReac Type Severity Reaction Status Date / Time lurasidone [From Latuda] Allergy Severe Altered Verified 06/06/19 16:58 Mental Status ciprofloxacin Allergy Intermediate Dizziness Verified 06/06/19 16:58 latex Allergy Mild Rash Verified 06/06/19 16:58 lithium Allergy Mild See Comment Verified 06/06/19 16:58 nalbuphine Allergy Unknown Verified 06/06/19 16:58 Reaction Details naldemedine Allergy Unknown Verified 06/06/19 16:58 Reaction Details nitrofurantoin Allergy See Comment Verified 06/06/19 16:58 [From Macrobid] Penicillins Allergy Rash Verified 06/06/19 16:58 perphenazine Allergy Unknown Verified 06/06/19 16:58 Reaction Details Sulfa (Sulfonamide Allergy Hives Verified 06/06/19 16:58 Antibiotics) tramadol Allergy Altered Verified 06/06/19 16:58 Mental Status ENVIRONMENTAL Allergy Mild SINUS Uncoded 06/06/19 16:58 PMH/Surg Hx/FS Hx/Imm Hx Previously Healthy: Yes Endocrine History: Diabetes, Hypothyroidism Other History Of: Negative For: Anticoagulant Therapy - Surgical History Surgical History: Yes Surgery Procedure, Year, and Place: 2011-CATARACT EXTRACTION;. GALLBLADDER REMOVED ; - Family History Known Family History: Positive: Other - Anxiety and depression, [place] - father Negative: Cardiac Disease, Hypertension, Diabetes Family History: Depression and anxiety - Social History Alcohol Use: None Substance Use Type: None Smoking Status (MU): Former Smoker Type: Cigarettes Amount Used/How Often: 1/2 PPD FOR LAST 30 DAYS, NO OTHER TOBACCO Length of Time of Smoking/Using Tobacco: since she was "young" Have You Smoked in the Last Year: Yes - Patient has smoked within the last 30 days When Did the Patient Quit Smoking/Using Tobacco: ATTEMPTING TO QUIT Household Exposure Type: Cigarettes - Immunization History Most Recent Influenza Vaccination: Within the past month or two at [facility] Most Recent Tetanus Shot: Unsure Most Recent Pneumonia Vaccination: 05/20/2017 Review of Systems All Other Systems Reviewed And Are Negative: Yes Constitutional: Positive: Other - SEE HPI Skin: Positive: Negative Eyes: Positive: Negative ENT: Positive: Negative Respiratory: Positive: Negative Cardiovascular: Positive: Negative Gastrointestinal: Positive: Other - SEE HPI Genitourinary: Positive: Other - SEE HPI Motor: Positive: Negative Neurovascular: Positive: Negative Musculoskeletal: Positive: Negative Neurological: Positive: Negative Psychological: Positive: Negative Is Patient Immunocompromised?: No Physical Exam Triage Information Reviewed: Yes Appearance: Well-Appearing, No Pain Distress, Well-Nourished Vital Signs: Initial Vital Signs Temp 98.6 F 06/06/19 17:08 Pulse 98 06/06/19 17:08 Resp 17 06/06/19 17:08 BP 116/56 06/06/19 17:08 Pulse Ox 100 06/06/19 17:08 Vital Signs Reviewed: Yes Eye Exam: Normal Eyes: Positive: Conjunctiva Clear Neck: Positive: Supple Respiratory: Positive: No respiratory distress Abdomen Description: Positive: Other: - There is mild tenderness to palpation at the umbilicus. I do not appreciate any mass. The rest the abdomen is soft and nontender positive bowel sounds. Bowel Sounds: Positive: Present Musculoskeletal: Positive: Strength Intact, ROM Intact Neurological: Positive: Alert, Muscle Tone Normal Psychological: Positive: Age Appropriate Behavior Skin Exam: Normal Course/Dx - Course Course Of Treatment: Patient has no signs of obstruction from the umbilical hernia at this time. She reports that the insurance company would not pay for the lidocaine patches written by emergency room physician. We do not have any lidocaine patches here. I do not expect that insurance company will pay he for any lidocaine patches that I prescribed here from urgent care. Therefore I recommended getting the [id number] lidocaine patches to apply to the umbilicus to help with the pain. She has surgery scheduled for June 13, 2019. She can follow-up with surgery as any concerns with the umbilical hernia. If she gets any abdominal pain or vomiting or if things get worse she should go the emergency department. Patient has a UTI by symptoms and by sample. She is allergic to multiple antibiotic medications. She was treated with Omnicef in January 2019 which the patient says got her better. I'm prescribing Omnicef again. Back in January she did have a UTI with Escherichia coli and enterococcus. The E coli was susceptible to third generation cephalosporins. The enterococcus was susceptible to doxycycline which may need to be added if the patient's not improving or the enterococcus she was up on this urine culture. Patient emergency department if she is getting worse. - Diagnoses Provider Diagnosis: Periumbilical pain, UTI (urinary tract infection) Discharge ED - Sign-Out/Discharge Documenting (check all that apply): Patient Departure All imaging exams completed and their final reports reviewed: No Studies - Discharge Plan Condition: Stable Disposition: HOME Prescriptions: Cefdinir [Cefdinir 300 MG CAP] 300 mg PO BID #14 capsule Patient Education Materials: Urinary Tract Infection in Women (ED), Umbilical Hernia (ED) Referrals: Rosa Schroeder MD [Primary Care Provider] - Alexander Hernandez MD [Medical Doctor] - Additional Instructions: FOLLOW UP WITH YOUR DOCTOR IF NOT COMPLETELY IMPROVED. Follow-up with surgery as scheduled for your umbilical hernia. Try [id number] lidocaine patches on your umbilicus for the pain. GO TO THE EMERGENCY DEPARTMENT IF WORSE; PAIN, FEVER, YOU FEEL ILL, VOMITING OR ANY QUESTIONS OR CONCERNS. - Billing Disposition and Condition Condition: STABLE Disposition: Home
== END 2019-06-06 17:53 | disposition home or self-care (01) ==
LOC: UCEAST 16:32
DX: R10.33 Periumbilical pain (principal); N39.0 Urinary tract infection, site not specified; E11.9 Type 2 diabetes mellitus without complications; Z91.09 Other allergy status, other than to drugs and biological substances; Z88.2 Allergy status to sulfonamides; Z88.5 Allergy status to narcotic agent; Z88.8 Allergy status to other drugs, medicaments and biological substances; Z88.0 Allergy status to penicillin; Z88.1 Allergy status to other antibiotic agents; Z87.891 Personal history of nicotine dependence
CPT/HCPCS: 81003; 87077; 87086; 87186; 99212; G0463

== ENCOUNTER → 2019-06-13 10:20 | Day surgery (SDC) | payer MEDICARE, MEDICAID ==
[~2019-06-13 10:20] MED LIST changes: +Bacitracin OINTMENT* 0.5% 0.5 oz TUBE ONE; +Bupivacaine 0.25% EPI 200,000* 30 ML SDV ONE; +Cisatracurium* 2 MG/ML MDV 5 ML ONE; +Clindamycin 900 MG/D5W BAG(*) 900 MG/50 ML BAG IVPB ONE; +D5W 500 ML BAG* 500 ML IV SCH; +Dexamethasone IV* 4 MG/ML 1 ML (4 MG) ONE; +Dextrose 50% VIAL 50 ml ONE; +DiMENhydriNATE IV* 50 MG/ML VIAL IV PUSH PRN; +Famotidine IV* 10 MG/ML 2 ML (20 mg) ONE; +Glycopyrrolate IV* 0.2 MG/ML 1 ML VIAL ONE; +Ketorolac INJ* 30 MG/ML 1 ML VIAL ONE; +Levalbuterol 0.63MG/3ML NEB* UNIT OF USE INH PRN; +Lidocaine 2% PF * 5 ML VIAL ONE; +Midazolam* 1 MG/ML 5 ML VIAL (5 MG) ONE; +Naloxone* 0.4 MG/ML 1 ML VIAL IV PRN; +Neostigmine Methylsulfate* 1 MG/ML 10 ML VIAL (1 mg/ml) ONE; +Ondansetron INJ* 2 MG/ML VIAL ONE; +Phenylephrine 40 MCG/ML SYRINGE ONE; +Propofol* 10 MG/ML 20 ML BTL ONE; +fentaNYL* 50 MCG/ML 2 ML VIAL (100 MCG VIAL) IV PRN; +fentaNYL* 50 MCG/ML 2 ML VIAL (100 MCG VIAL) ONE; +oxyCODONE/Acetamin 5/325 MG* TAB ONE
--- NOTE | 2019-06-13 17:29 | BRIEFOPN ---
Brief Operative/Procedure Note - Operation Details Pre-Op Diagnosis: umbilical hernia Post-Op Diagnosis: umbilical hernia Procedures: open repair of umbilical hernia Surgeon(s)/Proceduralists: David LAWSON surgeon/Scout LEÓN assist Anesthesia: GET Estimated Blood Loss: minimal Findings: umbilical hernia Specimen(s)/Culture(s) Description: hernia sac Complications: none
[2019-06-13 20:07] VITALS: BP 142/94
--- NOTE | 2019-06-13 20:23 | OP ---
CC: Primary Care Doctor; [facility] * DATE OF OPERATION: 06/13/19 - SDS DATE OF : 67 SURGEON: Alexander Hernandez MD OPERATORS TEACHER: RAÚL Damian ANESTHESIOLOGIST: Dr. Carr ANESTHESIA: General anesthesia. PRE-OP DIAGNOSIS: Umbilical hernia. POST-OP DIAGNOSIS: Umbilical hernia. OPERATIVE PROCEDURE: Open umbilical hernia repair. ESTIMATED BLOOD LOSS: Minimal. FLUIDS: Minimal crystalloid fluid given. SPECIMEN: Hernia sac. DRAINS: None. COMPLICATIONS: None. DESCRIPTION OF PROCEDURE: The patient was identified in the preoperative area. It had been noted that she had taken a full dose insulin this morning and for this reason, she was watched by anesthesia team and the preoperative team. Her case was postponed towards later in the day and when consent was signed, the patient was marked. She was taken back to the operating room. It should be noted that I did discuss with her and her mother the change in the plan of a laparoscopic umbilical hernia repair with mesh to an open umbilical hernia with possible mesh. The patient understood the differences namely that we would potentially not place a mesh for the repair and the potential for recurrence. I thought this was prudent given the patient's obesity and diabetes, this was my concern for wound healing. The patient was taken to the operating room and placed on the operating table in supine position. Preoperative antibiotics were given. Sequential devices were placed on bilateral lower extremities. General anesthesia was induced. The patient's abdomen was clipped of hair and prepped and draped in standard surgical fashion. A time-out was performed. An infraumbilical incision was made. This was deepened down to the subcutaneous fat down to the hernia sac. We cleared off the hernia sac from the surrounding tissues and freed up the umbilical skin from this. We did not injure the skin and at this point, we opened up into the sac. There was omentum adhered to the the wall of the sac, which was taken down with the sharp dissection and we were able to push the omentum back in. At this point, the hernia sac was ligated and passed off as specimen. The defect was addressed. It was approximately close to 2 cm in size. Flaps were made laterally and the defect was reapproximated, first at the peritoneum with a 2-0 Vicryl running suture and then interrupted #1 Prolene sutures. The wound was then irrigated. Hemostasis was achieved and I felt closure was adequate. We then tacked the umbilical skin with a 2-0 Vicryl suture and then closed the incision with 3-0 Vicryl followed by 4-0 Monocryl subcuticular suture. Steri- Strips and sterile dressing were applied. The patient tolerated the procedure well, was woken up in the OR, and transferred to the PACU in stable condition. [id number]/[facility] #: [id number] [facility] FACILITYTorsten
== END | disposition home or self-care (01) ==
LOC: OR 10:20
PROVIDERS: ATTEND Surgery
DX: K42.9 Umbilical hernia without obstruction or gangrene (principal); E66.01 Morbid (severe) obesity due to excess calories; E11.9 Type 2 diabetes mellitus without complications; E03.9 Hypothyroidism, unspecified; K21.9 Gastro-esophageal reflux disease without esophagitis; F31.9 Bipolar disorder, unspecified; F17.210 Nicotine dependence, cigarettes, uncomplicated; Z79.4 Long term (current) use of insulin; Z79.899 Other long term (current) drug therapy; Z91.040 Latex allergy status
CPT/HCPCS: 88302; A9270-GY; J1100; J1885; J2250; J2405; J2704; J2710; J3010

== ENCOUNTER 2019-06-17 19:58 | Emergency (ER) | payer MEDICARE, MEDICAID ==
--- NOTE | 2019-06-17 20:49 | ED ---
HPI Diabetic - HPI Summary HPI Summary: This pt is a 53 Y/O F presenting to [facility] from [place] with a CC of high blood sugar following a hernia surgery on 06/12/19. She states that she has a follow up appointment on Tuesday06/22/19. She states that her BS was at 510 before dinner and she states that her sugar has been high since the surgery on . She denies any fevers, coughs, CP, SOB, N/V/D and headaches. She states that her sugar dropped down to 385 after receiving 70 units of Glargine. She state that she still has pain where her hernia was and states that the pain is currently a 6/10 in severity. She has no alleviating factors. She has a PMHx of depression, morbid obesity, and diabetes. - History Of Current Complaint Chief Complaint: EDDiabeticProb Hx Obtained From: Patient Hx Last Menstrual Period: 1.5 years Onset/Duration: Gradual Onset, Lasting Weeks - 1 Timing: Constant Severity Initially: Severe Severity Currently: Moderate Character: Alert Aggravating: Other - states that her hernia surgery aggravated the symptoms Alleviating: Other - 70 units of Glargine Associated Signs & Symptoms: Negative - fevers, coughs, CP, SOB, N/V/D and headaches Related History: DM II - Allergies/Home Medications Allergies/Adverse Reactions: Allergies Allergy/AdvReac Type Severity Reaction Status Date / Time lurasidone [From Latuda] Allergy Severe Altered Verified 06/07/19 11:25 Mental Status ciprofloxacin Allergy Intermediate Dizziness Verified 06/07/19 11:25 latex Allergy Mild Rash Verified 06/07/19 11:25 lithium Allergy Mild See Comment Verified 06/07/19 11:25 metformin Allergy Unknown Verified 06/07/19 11:25 Reaction Details nalbuphine Allergy Unknown Verified 06/07/19 11:25 Reaction Details naldemedine Allergy Unknown Verified 06/07/19 11:25 Reaction Details nitrofurantoin Allergy See Comment Verified 06/07/19 11:25 [From Macrobid] Penicillins Allergy Rash Verified 06/07/19 11:25 perphenazine Allergy Unknown Verified 06/07/19 11:25 Reaction Details Sulfa (Sulfonamide Allergy Hives Verified 06/07/19 11:25 Antibiotics) tramadol Allergy Altered Verified 06/07/19 11:25 Mental Status ENVIRONMENTAL Allergy Mild SINUS Uncoded 06/07/19 11:25 PMH/Surg Hx/FS Hx/Imm Hx Endocrine/Hematology History: Reports: Hx Diabetes - TYPE 2-INSULIN DEPENDENT, Hx Thyroid Disease - HX OF THYROTOXICOSIS, Other Endocrine/Hematological Disorders - Chronic pancreatitis Denies: Hx Anticoagulant Therapy Cardiovascular History: Reports: Hx Hypertension - ON MEDICATION FOR, Other Cardiovascular Problems/Disorders - HX OF PSVT 04/2008 Denies: Hx Hypercholesterolemia, Hx Pacemaker/ICD Respiratory History: Reports: Hx Asthma - RESCUE INHALER, Hx Seasonal Allergies , Hx Sleep Apnea - HX OF IN THE PAST-AWAITING A SLEEP STUDY Denies: Hx Chronic Bronchitis, Hx Chronic Obstructive Pulmonary Disease (COPD ), Hx Cystic Fibrosis, Hx Lung Cancer, Hx Pleural Effusion, Hx Pneumonia, Hx Pulmonary Edema, Hx Pulmonary Embolism, Other Respiratory Problems/Disorders GI History: Reports: Hx Gall Bladder Disease, Hx Gastroesophageal Reflux Disease - ON MEDICATION FOR, Hx Gastrointestinal Bleed, Hx Irritable Bowel, Other GI Disorders - HX OF pancreatitis- IN THE PAST// HX OF CONSTIPATION/ DIARRHEA Denies: Hx Ulcer History: Denies: Hx Dialysis, Hx Renal Disease, Other Problems/Disorders Musculoskeletal History: Reports: Hx Arthritis - LOWER BACK, Hx Back Problems, Hx Tendonitis - LEFT WRIST Denies: Hx Rheumatoid Arthritis, Hx Bursitis, Hx Congenital Bone Abnormalities, Hx Fibromyalgia, Hx Gout, Hx Orthopedic Injury, Hx Osteoporosis, Hx Scoliosis, Other Musculoskeletal History Sensory History: Reports: Hx Cataracts, Hx Contacts or Glasses - READING GLASSES , Hx Vision Problem Denies: Hx Eye Injury, Hx Eye Prosthesis, Hx Glaucoma, Hx Macular Degeneration, Hx Hearing Aid, Other Sensory Impairments Opthamlomology History: Reports: Hx Cataracts, Hx Contacts or Glasses - READING GLASSES, Hx Vision Problem Denies: Hx Eye Injury, Hx Eye Prosthesis, Hx Glaucoma, Hx Macular Degeneration, Other Sensory Impairments Neurological History: Reports: Hx Developmental Delay - intellectual disability , Hx Seizures - STATES WITH ALLERGIC REACTION TO TRAMADOL-A COUPLE OF YEARS AGO Denies: Hx Dementia, Hx Headaches, Other Neuro Impairments/Disorders - BIPOLAR/SCHIZOAFFECTIVE DISORDER/PTSD/BORDERLINE PERSONALITY DISORDER Psychiatric History: Reports: Hx Anxiety - ON MEDICATION FOR, Hx Depression - ON MEDICATION FOR, Hx Panic Disorder - TAKES DAILY, Hx Post Traumatic Stress Disorder, Hx Inpatient Treatment, Hx Community Mental Health Tx, Hx Bipolar Disorder - pt manic, Hx Suicide Attempt, Hx of Violent Episodes Against Others, Other Psychiatric Issues/Disorders - PSYCHOSIS NOS, HX OF PTSD, SCHIZOAFFECTIVE DISORDER, BORDERLINE PERSONALITY Denies: Hx Attention Deficit Hyperactivity Disorder, Hx Eating Disorder, Hx Schizophrenia, Hx Substance Abuse - Cancer History Cancer Type, Location and Year: None reported - Surgical History Surgical History: Yes Surgery Procedure, Year, and Place: 2011-CATARACT EXTRACTION;. GALLBLADDER REMOVED ;. HERNIA REPAIR 2018 Hx Anesthesia Reactions: No - Immunization History Date of Tetanus Vaccine: unk Date of Influenza Vaccine: fall 2017 Infectious Disease History: No Infectious Disease History: Denies: Hx Clostridium Difficile, Hx Hepatitis, Hx Human Immunodeficiency Virus (HIV), Hx of Known/Suspected MRSA, Hx Shingles, Hx Tuberculosis, Hx Known/ Suspected VRE, Hx Known/Suspected VRSA, History Other Infectious Disease, Traveled Outside the [place] in Last 30 Days - Family History Known Family History: Positive: Other - Anxiety and depression, [place] - father Negative: Cardiac Disease, Hypertension, Diabetes Family History: Depression and anxiety - Social History Occupation: Retired Lives: At [facility] - [place] Alcohol Use: None Hx Substance Use: No Substance Use Type: Reports: None Hx Tobacco Use: Yes Smoking Status (MU): Former Smoker Type: Cigarettes Amount Used/How Often: UP TO 1PPD OFF AND ON X 35 YEARS Length of Time of Smoking/Using Tobacco: since she was "young" Have You Smoked in the Last Year: Yes Review of Systems - ROS Summary Review of Systems Summary: Home Medications Medication Instructions Recorded Confirmed Type Losartan TAB* [Cozaar TAB*] 50 mg PO QAM 11/02/17 06/13/19 History Insulin Glargine,Hum.rec.anlog 70 units SUBCUT BEDTIME 07/10/18 06/13/19 History [Basaglar Kwikpen U-100] LoraTADine TAB(NF) [Claritin 10 MG 10 mg PO DAILY PRN 07/10/18 06/13/19 History TAB(NF)] Naproxen [Naproxen 500 mg tab] 500 mg PO BID WITH MEALS PRN 07/10/18 06/13/19 History Atorvastatin* [Lipitor 20 MG*] 20 mg PO BEDTIME 07/18/18 06/13/19 History Ibuprofen TAB* [Motrin TAB* 600 MG] 600 mg PO TID PRN 07/20/18 06/13/19 History Nicotine Inhaler* (NF) [Nicotine 10 mg INH Q2H PRN #200 amp 08/28/18 06/13/19 Rx Inhaler*] Ondansetron HCl [Zofran 4 MG TAB] 4 mg PO Q8H PRN #6 tablet 08/28/18 06/13/19 Rx oxyCODONE/Acetamin 5/325 MG* 1 - 2 tab PO Q6HR PRN MDD 4 11/06/18 06/13/19 History [Percocet 5/325 TAB*] Pancrelipase (NF) [Creon (NF)] 3,000 units PO TID AC 11/22/18 06/13/19 History traZODone TAB* [Desyrel TAB*] 300 mg PO BEDTIME 11/22/18 06/13/19 History Loperamide CAP* [Imodium CAP*] 2 mg PO Q4H PRN #20 cap 12/10/18 06/13/19 Rx Al Hydrox/Mg Hydrox/Simet LIQ* 30 ml PO Q4H PRN 12/14/18 06/13/19 History [Maalox Plus*] Albuterol HFA INHALER* [Ventolin 2 puff INH Q4HR PRN 12/14/18 06/13/19 History HFA Inhaler*] Fluticasone Furoate ELLIPTA(NF 1 puff INH QAM 12/14/18 06/13/19 History [Arnuity ELLIPTA (NF)] Levothyroxine TAB* [Synthroid 100 400 mcg PO LOPEZ 12/14/18 06/13/19 History MCG TAB*] Nicotine GUM* 2MG FRUIT FLAVOR 2 mg PO Q2H PRN 12/14/18 06/13/19 History [Nicotine GUM*] OLANzapine TAB* [Zyprexa 10 MG 10 mg PO BEDTIME 12/14/18 06/13/19 History TAB*] OLANzapine TAB* [Zyprexa 5 MG TAB*] 5 mg PO QAM 12/14/18 06/13/19 History Fluticasone NASAL SPRAY 50MCG* 2 spray BOTH NARES BID 01/02/19 06/13/19 History [Flonase NASAL SPRAY 50MCG*] Levothyroxine TAB* [Synthroid 100 200 mcg PO MOTUWETHFRSA 01/02/19 06/13/19 History MCG TAB*] Nicotine PATCH 21 MG/24 HR* 1 patch TRANSDERM QAM 01/02/19 06/13/19 History lamoTRIgine TAB(*) [Lamictal 100 mg PO BID 01/02/19 06/13/19 History TAB(*)] Cyclobenzaprine TAB* [Flexeril 10 10 mg PO BID PRN 01/17/19 06/13/19 History MG TAB*] DULoxetine CAP* [Cymbalta CAP*] 30 mg PO QAM 01/17/19 06/13/19 History Guaifenesin/Dextromethorphan 1 tab PO TID 01/17/19 06/13/19 History [Mucinex Dm ER 600-30 mg Tablet] Hyoscyamine TAB* [Anaspaz 0.125 MG 0.125 mg PO TID PRN #21 tab 02/03/19 Rx TAB*] DULoxetine DR HUMPHRIES* [Cymbalta CAP*] 20 mg PO QAM 05/16/19 06/13/[address] HUMPHRIES* [Cymbalta CAP*] 60 mg PO QAM 05/16/19 06/13/19 History Omeprazole (Nf) [Prilosec (NF)] 40 mg PO QAM 05/16/19 06/13/19 History Insulin ASPART (NF) [Novolog (NF)] 26 unit SUBCUT TID AC 05/21/19 06/13/19 History Nystatin TOP POWDER* 1 applic TOPICAL BID PRN 05/21/19 06/13/19 History hydrOXYzine HCL TAB* [Atarax 25 MG 25 mg PO TID PRN 05/21/19 06/13/19 History TAB*] Lidocaine PATCH 5%* [Lidoderm 5% 1 patch TRANSDERM DAILY #1 patch 06/04/1906/13 Rx Patch*] Cefdinir [Cefdinir 300 MG CAP] 300 mg PO BID #14 capsule 06/06/19 06/13/19 Rx Benzocaine [Anbesol] 1 applic .ROUTE TID PRN MDD APPLY 06/07/19 06/13/19 History TO [facility] Phenazopyridine TAB* [Pyridium 100 100 mg PO BID PRN 11/07/19 11/13/19 History mg TAB*] Polyethylene Glycol 3350* 17 gm PO DAILY PRN 06/07/19 06/13/19 History [Miralax*] oxyCODONE/Acetamin 5/325 MG* 1 tab PO Q4H PRN #12 tab MDD 4 06/13/19 Rx [Percocet 5/325 TAB*] Negative: Fever Negative: Chest Pain Negative: Shortness Of Breath, Cough Negative: Vomiting, Diarrhea, Nausea Negative: Headache All Other Systems Reviewed And Are Negative: Yes Physical Exam - Summary Physical Exam Summary: General: Well-developed, morbidly obese, female No acute distress. HEENT: Normocephalic, Atraumatic. Eyes: Conjuctiva normal, PERRL. Ears: TMs within normal limits. Nares: (-) discharge, (-) erythema. Oropharynx: Clear, mucous membranes moist, (-) exudates. Neck: Soft, FROM, (-) lymphadenopathy, (-) thyromegaly, (-) JVD. Cardiovascular: Normal sinus rhythm, (-) murmur. Lungs: Clear to auscultation bilaterally (-) wheezes, (-) rales, (-) rhonchi. Abdomen: Soft, non-tender, non-distended, (-) organomegaly, normal bowel sounds. Back: (-) CVA tenderness Extremities: No edema. Skin: Warm, dry, (-) rash. Incision on abdomen is clean dry and intact Neuro: Alert and oriented x3, no focal deficits. Psychiatric: Mood normal, affect normal. Triage Information Reviewed: Yes Vital Signs On Initial Exam: Initial Vitals Pulse Pulse Ox 87 96 06/17/19 20:02 06/17/19 20:02 Vital Signs Reviewed: Yes Diagnostics - Vital Signs Vital Signs Temp Pulse Resp BP Pulse Ox 06/17/19 20:07 97.8 F 82 16 178/82 97 06/17/19 20:03 84 178/82 96 06/17/19 20:02 87 96 - Laboratory Lab Results: Lab Results 06/17/19 Range/Units 20:10 POC Glucose (mg/dL) 385 H (70-100) mg/dL Result Diagrams: 06/17/19 20:42 06/17/19 20:42 Lab Statement: Any lab studies that have been ordered have been reviewed, and results considered in the medical decision making process. - Radiology CXR Radiology Interpretation Completed By: ED Physician Summary of Radiographic Findings: No obvious infiltrate or effusion. Pending offical review. Re-Evaluation - Re-Evaluation First Eval Re-Evaluation Time: 21:41 Change: Improved Comment: I have discussed results with the patient and elevated blood sugar is resolved. Discussed symptoms that warrant immediate return to ED Diabetic Course/Dx - Course Course Of Treatment: 53 year old female with hyperglycemia after hernia surgery 4 days ago. no symptoms. patient received her long acting insulin prior to arrival. blood sugar decreasing wihtout further treatment. workup essentially negative although non diagnostic. patient discharged back to [place]. continue current medications as directed. follow u with PCP this week for recheck. follow up sooner for any worsening symptoms. - Diagnoses Provider Diagnoses: Hyperglycemia Discharge ED - Sign-Out/Discharge Documenting (check all that apply): Patient Departure - Discharge Plan Condition: Stable Disposition: HOME Patient Education Materials: Diabetic Hyperglycemia (ED) Referrals: Rosa Schroeder MD [Primary Care Provider] - 2 Days Additional Instructions: PLEASE FOLLOW UP WITH YOUR PRIMARY CARE PROVIDER IN 2-3 DAYS AND RETURN TO THE EMERGENCY DEPARTMENT FOR ANY NEW OR WORSENING SYMPTOMS. - Billing Disposition and Condition Condition: STABLE Disposition: Home - Attestation Statements Document Initiated by Scribe: Yes Documenting Scribe: Sal Velarde Provider For Whom Noam is Documenting (Include Credential): Aliza Sesay MD Scribe Attestation: ISal, scribed for Aliza Sesay MD on 06/17/19 at 2324. Scribe Documentation Reviewed: Yes Provider Attestation: The documentation as recorded by the Sal roth accurately reflects the service I personally performed and the decisions made by me, Aliza Sesay MD Status of Scribe Document: Viewed
[2019-06-17 20:51] LABS: ABS Basophils 0.1 10^3/ul (0-0.2); ABS Eosinophils 0.1 10^3/ul (0-0.6); ABS Lymphocytes 2.7 10^3/ul (1.0-4.8); ABS Monocytes 0.5 10^3/ul (0-0.8); ABS Neutrophils 6.2 10^3/ul (1.5-7.7); Hematocrit 36 % (35-47); Hemoglobin 11.9 g/dL (12.0-16.0); Lymphocyte % 28.4 %; Mean Corpuscular HGB Conc 33 g/dL (31-36); Mean Corpuscular Hemoglobin 29 pg (27-31); Mean Corpuscular Volume 89 fL (80-97); Nucleated Red Blood Cells % 0.1; Platelet Count 179 10^3/uL (150-450); Red Blood Count 4.08 10^6 /uL (3.70-4.87); Red Cell Distribution Width 16 % (10-15); White Blood Count 9.6 10^3/uL (3.5-10.8)
[2019-06-17 20:55] LABS: INR 0.94 (0.82-1.09)
[2019-06-17 21:06] LABS: Albumin 3.4 g/dL (3.2-5.2); Albumin/Globulin Ratio 1.2 (1-3); BUN/Creatinine Ratio 11.7 (8-20); C Reactive Protein 7.28 mg/L (<8.01); Calcium 8.7 mg/dL (8.6-10.3); EGFR African American 75.7 (>60); EGFR Non-African American 62.5 (>60); Globulin 2.9 g/dL (2-4); Total Bilirubin 0.2 mg/dL (0.2-1.0); Total Protein 6.3 g/dL (6.4-8.9)
[2019-06-17 21:22] LABS: Urine Appearance Cloudy; Urine Bacteria 1+ (Absent); Urine Color Yellow; Urine Red Blood Cell Absent (Absent); Urine White Blood Cell Absent (Absent)
[2019-06-17 21:23] LABS: Urine Bilirubin Negative (Negative); Urine Blood Negative (Negative); Urine Glucose 3+(>=500 mg/dL) (Negative); Urine Ketones Negative (Negative); Urine Nitrite Negative (Negative); Urine Protein Negative (Negative); Urine Urobilinogen Negative (Negative)
[2019-06-17 21:35] VITALS: BP 153/94
--- OUTSIDE RECORDS SUMMARY | 2019-06-17 21:51 | XMS REPORT | Continuity of Care Document ---
:1965 External Reference #:[id number] Author Name Michelle Larry MD (transmitted by agent of provider Coco Christensen) Address [address], [place] [address] Care Team Providers Name Role Phone Ben Ovalles MD - Gastroenterology Care Team Information First Assistant Erik Grant MD - Ophthalmology Care Team Information First Assistant Rosa Schroeder M.D. - Family Medicine Care Team Information First Assistant Problems Active Problems Provider Date Type 2 [...] Smoker 5-10 Cigarettes Daily Smoking Status Reviewed: 06/08/19 Current Cigarette Smoker 5-10 Cigarettes Daily ETOH [...] dizziness 05/10/2017 Tramadol altered mental status 05/10/2017 [place] 05/10/2017 Lurasidone Moderate 05/08/2018 Metformin Diarrhea 05/22/2018 Macrobid not effective 05/11/2019 Medications Active Medications SIG Qnty Indications Ordering Date Provider Lidocaine Pain Relief Apply to affected 3units Robyn Guerrero MD 06/06/2019 4% area once daily Patches Wrist Brace Left Thumb spica Marline 05/31/2019 Misc wrist brace. Adelina Duarte Wear brace when doing repetitive motions with left hand - and at your discretion. Clotrimazole apply to affected 56gm B35.6 Rosa Schroeder MD 03/23/2019 Anti-Fungal area twice a day 1% Cream Hyoscyamine Sulfate one by mouth 90tabs Rosa Schroeder MD 02/07/2019 three times a day 0.125mg Tablets as needed for abdominal pain Novolog Penfill 26 units subcu 3 45ml Other Ordering 02/05/2019 times a day with Provider 100Unit/ML Solution meals Cartridge Onetouch Delica test up to three 1units Moreno Sandoval MD 01/11/2019 Lancing Dev [facility] a [facility] dx:e11.9 diabetes Nicotine Transdermal apply 1 patch 42units Robyn Guerrero MD 01/11/2019 System Step 1 transdermal daily 21mg/24HR remove at night. Patches 24HR After initial course call for step down dosing Percocet 1-2 every 6 hours 120tabs Rosa Schroeder MD 12/22/2018 5-325mg Tablets as needed for severe pain Duloxetine HCL 1 by mouth every 30caps Other Ordering 12/20/2018 30mg Caps day, total 110mg Provider DR Part daily Metoclopramide HCL one tablet every 90tabs Other Ordering 12/20/2018 10mg 6 hours, 30 Provider Tablets minutes before meals and one at bedtime as Needed For Nausea Quad Cane 1 cane for 1units M51.26 Rosa Schroeder MD 11/17/2018 [facility] ambulation 4 prong Cyclobenzaprine HCL take 1 tablet by 60tabs Rosa Schroeder MD 10/27/2018 10mg mouth two times Tablets daily as needed Levothyroxine Sodium 1 tablet by mouth 42tabs E03.9 Moreno Sandoval MD 2018 every day, except 200mcg Tablets 2 tablets on tuesday (total 8 tablets/week) Walker Swivel Wheels/5 folding walker, 1units M51.26 Lawrence Simental 2018 Adjustment Holes/5" use as directed Adelina Denson,FACP 5" [facility] Polyethylene Glycol 17g twice daily 1020gm Rosa Schroeder MD 10/19/2018 3350 by mouth, as 3350NF Powder needed for constipation. hold if any diarrhea Anbesol Maximum apply to gingiva 27gm Rosa Schroeder MD 09/21/2018 Strength 3x/day as needed 20% Gel for pain Creon one by mouth 90caps R19.7 Rosa Schroeder MD 09/06/2018 3000-9500Unit Caps three times a day DR Parikh right before meals Onetouch Delica test 4 times a 150units E11.9 Moreno Sandoval MD 09/04/2018 Lancets Extra Fine 33G day [facility] Arnuity Ellipta 1 puff inhaled 30units Rosa Schroeder MD 07/26/2018 every day 100mcg/Act Aerosol Depend Adjustable use four times a 120units Rosa Schroeder MD 07/03/2018 Underwear L/XL day [facility] Flonase Allergy Relief 2 sprays in each 9.900ml Rosa Schroeder MD 2017 nostril twice a 50mcg/Act Suspension day Fiasp Flextouch 26 units tid-ac, 30ml E11.65 Moreno Sandoval MD 05/19/2018 hold if glucose 100Unit/ML Solution less than Pen-Inject 80mg/dL. mdd 90 Basaglar Kwikpen 70 units once 30ml Moreno Sandoval MD 05/19/2018 daily at bedtime, 100Unit/ML Solution delay dose by 1 Pen-Inject hour if glucose <70mg/dl, mdd 100 Nicotrol 1 cartridges 168units Rosa Schroeder MD 05/18/2018 10mg Inhaler every 2 hours as needed Nystatin apply twice daily 90gm Robyn Guerrero MD 05/15/2018 587456Hgmp/GM until rash clears Powder Ventolin HFA 2 [...] needed for pain [facility], 10mg Tablets bedtime M.D. Loperamide HCL take one capsule 30caps Rosa Schroeder MD 2mg Capsules every four hours as needed Nicotine Gum 2 MG 1piece q 2 hours Unknown prn Ondansetron dissolve one 30tabs Rosa Schroeder MD 4mg Tablets tablet orally Dispers every 8 hours as needed for nausea. Hydroxyzine HCL 1 tablets by mouth Unknown 25mg Tablets tid as needed for anxiety Ibu take one tablet by 90tabs Rosa Schroeder MD 600mg Tablets mouth t.i.d as needed pain Cetirizine HCL 1 by mouth every Unknown 10mg Tablets day Maalox Max 30 milliliters by Unknown [phone]/5ML mouth q4hr as Suspension needed indigestion Duloxetine [...] every 90tabs E11.65 Rosa Schroeder MD 50mg day Tablets Lamotrigine 1 by mouth twice a 180tabs Rosa Schroeder MD 100mg Tablets day Atorvastatin Calcium take 1 tablet at 90tabs Rosa Schroeder MD 20mg bedtime Tablets Onetouch Ultra Mini check bs up to 1units E11.65 Lawrence Simental w/Device three times daily Adelina Denson,FACP Kit Trazodone HCL Take 3 Tablets By 90tabs Robyn Guerrero MD 100mg Tablets Mouth AT Bedtime DX: Insomnia Olanzapine one tab by mouth 60tabs Other Ordering 5mg Tablets in am Provider History Medications Pain Relieving Robyn Guerrero MD 06/06/2019 - Lidocaine Patch 06/06/2019 4% Patches Chantix Starting follow directions 1pack F17.210 Rosa [...] Rosa Schroeder MD 01/30/2019 - 150mg 1, november repeat 03/22/2019 Tablets after 2 days if not better Medications Administered in Office Medication SIG Qnty Indications Ordering Provider Date Depomedrol 40MG Marline Duarte M.D. 05/24/2019 Injection Depomedrol 40MG Naveed Cuadra MD 10/11/2017 Injection Immunizations CPT Code Status Date Vaccine Lot # [id number] Given 05/01/2018 Influenza Virus Vaccine, Quadrivalent, Split, Preservative Free Vital Signs Date Vital Result Comment 06/08/2019 8:43am Height 66.75 inches 5'6.75" Weight 267.00 lb Heart Rate 90 /min BP Systolic Sitting 122 mmHg Rue lg cuff BP Diastolic Sitting 88 mmHg Rue lg cuff Body Temperature 98.8 F BMI (Body Mass Index) 42.1 kg/m2 05/23/2019 1:06pm Height 66.75 inches 5'6.75" Weight 271.00 lb Heart Rate 98 /min BP Systolic 130 mmHg BP Diastolic 96 mmHg BMI (Body Mass Index) 42.8 kg/m2 Results Test Acquired Date Facility Test Result H/L Range Note Poc Urinalysis 06/06/2019 [facility] Poc Trace Abnormal Negative [address] Glucose, [place] [address] Urine [phone] Poc Bilirubin, Urine Negative Negative Poc Ketone, Urine Negative Negative Poc Specific [place], Urine 1.025 Normal 1.010-1.030 Poc Blood, Urine 3+ Abnormal Negative Poc pH, Urine 6.0 Normal 5-9 Poc Protein, Urine 2+ Abnormal Negative Poc Urobilinogen, Urine 0.2 Negative Poc Nitrite, Urine Positive Abnormal Negative Poc Leukocytes, Urine 1+ Abnormal Negative Poc Color, Urine Dark yellow Poc Clarity, Urine Cloudy 2 Drug Abuse 20 04/06/2019 [facility] Urine Amphetamine Negative ng/mL [address] [place] [address] [phone] Urine Barbiturates Negative ng/mL 4 Urine Benzodiazepines Negative ng/mL 5 Urine Cocaine Negative ng/mL 6 Urine Phencyclidine Negative ng/mL Cutoff: 25 Urine Tetrahydrocannabinol Negative ng/mL Cutoff: 50 7 Creatinine, Urine 55.6 mg/dL Specific [place] 1.007 pH 7.0 Oxidants Negative 8 Adulterants Comment Normal Codeine, Ur Not Detected ng/mL Cutoff: 25 9 Rqseick-0-twsd-glucuronide, Ur Not Detected ng/mL 10 Morphine, Ur Not Detected ng/mL Cutoff: 25 11 Slnrjjkj-7-ugvx-glucuronide, U Not Detected ng/mL 12 6-monoacetylmorphine, Ur Not Detected ng/mL Cutoff: 25 13 Hydrocodone, Ur Not Detected ng/mL Cutoff: 25 14 Norhydrocodone, Ur Not Detected ng/mL Cutoff: 25 15 Dihydrocodeine, Ur Not Detected ng/mL Cutoff: 25 16 Hydromorphone, Ur Not Detected ng/mL Cutoff: 25 17 Ewtnduklpzyjy9cjolimpxegtqpko Not Detected ng/mL 18 Oxycodone, Ur Present ng/mL Abnormal Cutoff: 25 19 Noroxycodone, Ur Present ng/mL Abnormal Cutoff: 25 20 Oxymorphone, Ur Not Detected ng/mL Cutoff: 25 21 Jqwtrfrsyvn-6-qhhq-glucuronide Present ng/mL Abnormal 22 Noroxymorphone, Ur Not Detected ng/mL Cutoff: 25 23 Fentanyl, Ur Not Detected ng/mL Cutoff: 2 24 Norfentanyl, Ur Not Detected ng/mL Cutoff: 2 25 Meperidine, Ur Not Detected ng/mL Cutoff: 25 26 Normeperidine, Ur Not Detected ng/mL Cutoff: 25 27 Naloxone, Ur Not Detected ng/mL Cutoff: 25 28 Dtskluqh-3-yxjv-glucuronide, U Not Detected ng/mL 29 Methadone, Ur Not Detected ng/mL Cutoff: 25 30 Eddp, Ur Not Detected ng/mL Cutoff: 25 31 Propoxyphene, Ur Not Detected ng/mL Cutoff: 25 32 Norpropoxyphene, Ur Not Detected ng/mL Cutoff: 25 33 Tramadol, Ur Not Detected ng/mL Cutoff: 25 34 O-desmethyltramadol, Ur Not Detected ng/mL Cutoff: 25 35 Tapentadol, Ur Not Detected ng/mL Cutoff: 25 36 N-desmethyltapentadol, Ur Not Detected ng/mL Cutoff: 50 37 Uximendxyv-hycd-tmjpwycxabb, U Not Detected ng/mL 38 Buprenorphine, Ur Not Detected ng/mL Cutoff: 5 39 Norbuprenorphine, Ur Not Detected ng/mL Cutoff: 5 40 Norbuprenorphine glucuronide Not Detected ng/mL Cutoff: 20 41 Opioid Interpretation See Comment 42 Laboratory test 03/27/2019 [facility] TSH 2.88 Normal 0.34- 5.60 43, finding [address] (Thyroid mcIU/mL 44 [place] [address] Stim Horm) [phone] Urine Culture 02/16/2019 [facility] Urine SEE [address] [place] [address] BELOW [phone] Ua Routine 02/16/2019 [facility] Ua 1.030 Specific [place] Ua PH 5 Ua Color dark yellow Ua Appera cloudy Ua WBC + Ua Protein trace Ua Glucose 50 Ua Ketones sm + Ua Bilirubin negative Ua Urobilinogen normal Ua Nitrite negative Ua Occult Blood about 250 Laboratory test 02/09/2019 [facility] Point of 167 mg/dL High 70-100 [address] [place] [address] Glucose [phone] Laboratory test 02/09/2019 [facility] Point of 244 mg/dL High 70-100 [address] [place] [address] Glucose [phone] Laboratory test 02/09/2019 [facility] Point of 299 mg/dL High 70-100 [address] [place] [address] Glucose [phone] Laboratory test 02/09/2019 [facility] Point of > 444 Critical 70-100 [address] Care mg/[place] [address] Glucose [phone] Urine Culture 02/09/2019 [facility] Urine SEE [address] [place] [address] BELOW [phone] Venous Blood Gas 02/09/2019 [facility] Venous 7.40 Normal 7.32 -7.[address] Blood pH 3 [place] [address] [phone] Venous Pco2 43 mmHg Normal 41-51 Venous Po2 44.0 mmHg Normal 35-45 Venous O2 Saturation 84.4 % High 70-80 Venous Blood Base Excess 1.5 mmol/L Normal 0.0-4.0 51 Venous Bicarbonate Hco3 25.5 mmol/L Normal 24-28 Urinalysis Profile 02/09/2019 [facility] Urine Color Sharlene [address] [place] [address] [phone] Urine Appearance Cloudy Urine Specific [place] 1.016 Normal 1.010-1.030 Urine pH 6.0 Normal 5-9 Urine Urobilinogen Positive Abnormal Negative Urine Ketones Negative Negative Urine Protein Negative Negative Urine Leukocytes Trace Abnormal Negative Urine Blood Negative Negative * * Abnormal Negative 52 Urine Nitrite Positive Abnormal Negative Urine Bilirubin Negative Negative Urine Glucose 3+(>=500 mg/dL) Abnormal Negative Urine White Blood Cell Trace(0-5/hpf) Absent Urine Red Blood Cell Trace(0-2/hpf) Absent Urine Bacteria 1+ Abnormal Absent Urine Squamous Epithelial Cell Present Abnormal Absent Comp Metabolic 02/09/2019 [facility] Sodium 136 mmol/L Normal 135-[address] [place] [address] [phone] Potassium 5.0 mmol/L Normal 3.5-5.0 Chloride 102 [...] Egfr Non- 56.3 >60 Egfr 68.1 >60 53 Laboratory 02/09/2019 [facility] Lactic 2.9 Critical 0.5-2.0 54 test finding [address] Acid mmol/L high [place], [place] [id number] [phone] CBC Auto Diff 02/09/2019 [facility] White 11.8 High 3.5-10.[address] Blood 10^3/[place] [address] Count [phone] Red Blood Count 4.59 10^6/uL Normal 3.70-4.87 [...] Nucleated Red Blood Cells % 0.0 Laboratory 02/09/2019 [facility] C Reactive 3.79 Normal <8.01 test finding [address] Protein mg/[place] [address] [phone] Laboratory 02/06/2019 [facility] Hemoglobin A1c 9.0 % High 4.0 -5.6 55, test finding [address] (Glyco HGB) 56 [place] [address] [phone] CBC Auto Diff 02/03/2019 [facility] White Blood 9.6 Normal 3.5 -10.[address] Count 10^3/[place] [address] [phone] Red Blood Count 4.03 10^6/uL Normal 3.70-4.87 [...] Blood Cells % 0.0 Laboratory test 02/03/2019 [facility] Lactic Acid 0.8 mmol/L Normal 0.5-2.0 57 finding [address] [place] [address] [phone] Comp Metabolic 02/03/2019 [facility] Sodium 140 mmol/L Normal 135-145 Panel [address] [place] [address] [phone] Potassium 4.5 mmol/L Normal 3.5-5.0 Chloride 108 [...] Egfr Non- 65.8 >60 Egfr 79.6 >60 58 Laboratory test finding 02/03/2019 [facility] Amylase 28 U/L Low 29-103 [address] [place] [address] [phone] Lipase < 10 U/L Low 11.0-82.0 C Reactive Protein 3.64 mg/L Normal <8.01 Urinalysis Profile 02/03/2019 [facility] Urine Color Yellow [address] [place] [address] [phone] Urine Appearance Cloudy Urine Specific [place] 1.009 Low 1.010-1.030 Urine pH 5.0 Normal [...] Present Abnormal Absent Urine Culture And 02/03/2019 [facility] Urine Culture SEE RESULT [address] [place] [address] [phone] Laboratory test 02/01/2019 [facility] Point of Care 232 mg/dL High 70- [address] Glucose 100 [place] [address] [phone] Laboratory test 02/01/2019 [facility] Point of Care 54 mg/dL Low 70- [address] Glucose 100 [place] [address] [phone] Laboratory test 02/01/2019 [facility] Blood Culture SEE RESULT [address] [place] [address] [phone] Urine Culture And 02/01/2019 [facility] Urine Culture SEE RESULT [address] [place] [address] [phone] Laboratory test 02/01/2019 [facility] Erythrocyte Sed 33 mm/Hr High 0-[address] Rate 9 [place] [address] [phone] Inr/Protime 02/01/2019 [facility] Inr 0.95 Normal 0.[address] 2-1 [place] [address] .09 [phone] Laboratory test 02/01/2019 [facility] Partial Thrombo 27.7 Normal 26. finding [address] Time PTT seconds 0-3 [place] [address] 8.0 [phone] Fibrinogen 348.6 mg/dL Normal 110.8-404.3 Lactic Acid 0.8 mmol/L Normal 0.5-2.0 65 Comp Metabolic 02/01/2019 [facility] Sodium 139 mmol/L Normal 135-[address] [place] [address] [phone] Potassium 3.4 mmol/L Low 3.5-5.0 Chloride 110 [...] Egfr Non- 77.6 >60 Egfr 93.8 >60 66 CBC Auto 02/01/2019 [facility] White Blood 16.2 10^3/uL High 3.5-10.[address] Count [place], [place] 157[address]38 [phone] Red Blood Count 4.03 10^6/uL Normal 3.70-4.87 [...] Blood Cells % 0.0 Urinalysis Profile 02/01/2019 [facility] Urine Color Yellow [address] [place] [address] [phone] Urine Appearance Clear Urine Specific [place] 1.005 Low 1.010-1.030 Urine pH 6.0 Normal 5-9 Urine Urobilinogen Negative Negative Urine Ketones Negative Negative Urine Protein Negative Negative Urine Leukocytes Trace Abnormal Negative Urine Blood Negative Negative Urine Nitrite Negative Negative Urine Bilirubin Negative Negative Urine Glucose Negative Negative Urine White Blood Cell Trace(0-5/hpf) Absent Urine Red Blood Cell Absent Absent Urine Bacteria Absent Absent Laboratory test 02/01/2019 [facility] Creatine 137 U/L Normal 10-[address] Kinase(CK) [place] [address] [phone] C Reactive Protein 5.48 mg/L Normal <8.01 Troponin-I (TnI) 0.01 ng/mL <0.04 67 B-Type Natriuretic Peptide BNP 14 pg/mL <=100 Urine Culture And 01/30/2019 [facility] Urine Culture SEE RESULT 68, [address] [place] [address] [phone] Ua Routine 01/30/2019 [facility] Ua Specific 1.010 [place] Ua PH 5 Ua Color yellow Ua Appera cloud Ua WBC L Ua Protein - Ua Glucose L Ua Ketones neg Ua Bilirubin neg Ua Urobilinogen neg Ua Nitrite - Ua Occult Blood 50 CBC Auto 01/28/2019 [facility] White Blood 10.8 10^3/uL Normal 3.5-10.[address] [place] [address] [phone] Red Blood Count 4.72 10^6/uL Normal 3.70-4.87 [...] Blood Cells % 0.0 Urine Culture And 01/28/2019 [facility] Urine SEE RESULT [address] [place] [address] [phone] Inr/Protime 01/28/2019 [facility] Inr 0.92 Normal 0.[address] -1.0 [place] [address] 9 [phone] Laboratory test 01/28/2019 [facility] Partial 28.8 Normal 26.[address] Thrombo Time seconds -38. [place] [address] PTT 0 [phone] Comp Metabolic 01/28/2019 [facility] Sodium 137 mmol/L Normal 135- Panel [address] [place] [address] [phone] Potassium 5.0 mmol/L Normal 3.5-5.0 Chloride 101 [...] Egfr Non- 61.0 >60 Egfr 73.8 >60 72 Urinalysis Profile 01/28/2019 [facility] Urine Color Yellow [address] [place] [address] [phone] Urine Appearance Turbid Urine Specific [place] 1.016 Normal 1.010-1.030 Urine pH 6.0 Normal [...] Yeast Present Abnormal Absent Laboratory test 01/28/2019 [facility] Lipase 10 U/L Low 11.0- 82.0 finding [address] [place] [address] [phone] C Reactive Protein 5.53 mg/L Normal <8.01 Troponin-I (TnI) 0.00 ng/mL <0.04 73 HCG 3.01 mIU/mL 74 Lactic Acid 2.0 mmol/L Normal 0.5-2.0 75 Laboratory test 01/23/2019 [facility] Lactic Acid 1.8 mmol/L Normal 0.5-2.0 76 finding [address] [place] [address] [phone] Urine Culture And 01/23/2019 [facility] Urine SEE RESULT [address] [place] [address] [phone] Comp Metabolic 01/23/2019 [facility] Sodium 139 mmol/L Normal 135-145 Panel [address] [place] [address] [phone] Potassium 4.4 mmol/L Normal 3.5-5.0 Chloride 105 [...] Egfr Non- 59.6 >60 Egfr 72.1 >60 78 CBC Auto 01/23/2019 [facility] White Blood 14.3 10^3/uL High 3.5-10.[address] [place] [address] [phone] Red Blood Count 4.59 10^6/uL Normal 3.70-4.87 [...] Blood Cells % 0.0 Laboratory test 01/23/2019 [facility] Lipase < 10 U/L Low 11.0 -82.[address] [place] [address] [phone] C Reactive Protein 2.94 mg/L Normal <8.01 Urinalysis Profile 01/23/2019 [facility] Urine Color Yellow [address] [place], [place] [address] [phone] Urine Appearance Turbid Urine Specific [place] 1.012 Normal 1.010-1.030 Urine pH 6.0 Normal [...] Epithelial Cell Present Abnormal Absent Laboratory test 01/19/2019 [facility] Point of Care 72 mg/dL Normal 70-100 [address] Glucose [place], [place] [address]47279 [phone] Laboratory test 01/19/2019 [facility] Point of Care 59 mg/dL Low 70-100 [address] Glucose [place], [place] [address]65[address] [phone] Laboratory test 01/19/2019 [facility] Point of Care 193 mg/dL High 70-100 [address] Glucose [place], [place] 9427352 [phone] Laboratory test 01/19/2019 [facility] Point of Care 64 mg/dL Low 70-100 [address] Glucose [place], [place] [address]326[address] [phone] Laboratory test 01/19/2019 [facility] Point of Care 58 mg/dL Low 70-100 [address] Glucose [place], [place] [address]86 [phone] Laboratory test 01/19/2019 [facility] Surgical SEE RESULT [address] [place] [address] Order [phone] Laboratory test 01/19/2019 [facility] Point of Care 83 mg/dL Normal 70-100 [address] Glucose [place], [place] 423[address]76 [phone] Laboratory test 01/19/2019 [facility] Clotest SEE RESULT [address] BELOW [place], [place] 1684404 [phone] Laboratory test 01/16/2019 [facility] Amylase 32 U/L Normal 29 -[address] [place], [place] [address]48781 [phone] Lipase < 10 U/L Low 11.0-82.0 C Reactive Protein 3.40 mg/L Normal <8.01 CBC Auto 01/16/2019 [facility] White Blood 10.3 10^3/uL Normal 3.5-10.[address] [place] [address] [phone] Red Blood Count 4.51 10^6/uL Normal 3.70-4.87 [...] Blood Cells % 0.0 Comp Metabolic 01/16/2019 [facility] Sodium 138 mmol/L Normal 135-[address] [place] [address] [phone] Potassium 4.5 mmol/L Normal 3.5-5.0 Chloride 104 [...] Egfr Non- 76.4 >60 Egfr 92.5 >60 87 Laboratory 01/03/2019 [facility] Point of Care > 444 Critical 70-100 88 test finding [address] Glucose mg/dL high [place], [place] [address]14 [phone] Laboratory 01/03/2019 [facility] Acetaminophen 142 Critical 89 test finding [address] g/[place] [address] [phone] CBC Auto Diff 01/03/2019 [facility] White Blood 7.6 Normal 3.5 -10.[address] Count 10^3/[place] [address] [phone] Red Blood Count 4.20 10^6/uL Normal 3.70-4.87 [...] Blood Cells % 0.0 Comp Metabolic 01/03/2019 [facility] Sodium 137 mmol/L Normal 135-[address] [place] [address] [phone] Potassium 4.5 mmol/L Normal 3.5-5.0 Chloride 105 [...] Egfr Non- 62.5 >60 Egfr 75.7 >60 90 Laboratory test 01/03/2019 [facility] Alcohol < 10 mg/dL Normal <10 finding [address] [place] [address] [phone] Salicylate < 2.50 mg/dL <30 TSH (Thyroid Stim Horm) 1.52 mcIU/mL Normal 0.34-5.60 Acetaminophen 226 g/mL Critical high 91 Laboratory test 01/03/2019 [facility] Point of 263 mg/dL High 70-100 92 finding [address] [facility] [place] [address] [phone] Basic Metabolic 01/03/2019 [facility] Sodium 138 mmol/L Normal 135-145 Panel [address] [place] [address] [phone] Potassium 4.4 mmol/L Normal 3.5-5.0 Chloride 109 mmol/L Normal 101-111 Co2 Carbon Dioxide 22 mmol/L Normal 22-32 Anion Gap 7 mmol/L Normal 2-11 Glucose 337 mg/dL High 70-100 Blood Urea Nitrogen 14 mg/dL Normal 6-24 Creatinine 0.87 mg/dL Normal 0.51-0.95 BUN/Creatinine Ratio 16.1 Normal 8-20 Calcium 8.8 mg/dL Normal 8.6-10.3 Egfr Non- 68.4 >60 Egfr 82.7 >60 93 Laboratory 01/03/2019 [facility] Point of 413 mg/dL Critical 70-100 94 test finding [address] [place] [address] Glucose [phone] Urinalysis 01/02/2019 [facility] Urine Color Yellow Profile [address] [place] [address] [phone] Urine Appearance Turbid Urine Specific [place] 1.011 Normal 1.010-1.030 Urine pH 6.0 Normal [...] Cell Present Abnormal Absent Urine Drug 01/02/2019 [facility] Urine None Detected None Detect SCR ED & [address] [facility] [place] [address] Screen [phone] Urine Barbiturates Screen None Detected None Detect Urine Benzodiazepine Screen None Detected None Detect Urine Cannabinoids Screen None Detected None Detect Urine Cocaine Screen None Detected None Detect Urine Opiates Screen None Detected None Detect Urine Phencyclidine Screen None Detected None Detect 95 CBC Auto 01/02/2019 [facility] [facility] White Blood 11.1 10^3/uL High 3.5-10.[address] [place] [address] [phone] Red Blood Count 4.26 10^6/uL Normal 3.70-4.87 [...] Blood Cells % 0.0 Comp Metabolic 01/02/2019 [facility] Sodium 140 mmol/L Normal 135-[address] [place] [address] [phone] Potassium 4.4 mmol/L Normal 3.5-5.0 Chloride 108 [...] Egfr Non- 82.4 >60 Egfr 99.7 >60 96 Laboratory test 01/02/2019 [facility] Acetaminophen < 15 g/mL [address] [place] [address] [phone] Alcohol < 10 mg/dL Normal <10 Salicylate < 2.50 mg/dL <30 TSH (Thyroid Stim Horm) 0.91 mcIU/mL Normal 0.34-5.60 Urine Culture And 01/02/2019 [facility] Urine SEE RESULT [address] [place] [address] [phone] CBC Auto Diff 12/15/2018 [facility] White Blood 12.0 High 3.5- [address] Count 10^3/uL 0.8 [place] [address] [phone] Red Blood Count 4.36 10^6/uL Normal 3.70-4.87 [...] Red Blood Cells % 0.1 Laboratory 12/15/2018 [facility] Troponin-I 0.03 <0.04 99 test finding [address] (TnI) ng/[place] [address] [phone] Laboratory 12/15/2018 [facility] Point of Care 204 mg/dL High 70-100 100 test finding [address] Glucose [place], [place] [id number] [phone] Laboratory 12/15/2018 [facility] Point of Care 112 mg/dL High 70-100 101 test finding [address] [place] [address] [phone] Laboratory 12/15/2018 [facility] Lactic Acid 1.3 Normal 0.5- 2.0 102 test finding [address] mmol/[place] [address] [phone] Comp Metabolic 12/15/2018 [facility] Sodium 142 Normal 135- [address] mmol/[place] [address] [phone] Potassium 4.0 mmol/L Normal 3.5-5.0 Chloride 107 [...] Egfr Non- 61.0 >60 Egfr 73.8 >60 103 Glucose 46 mg/dL Critical low 70-100 104 Laboratory test 12/15/2018 [facility] Lipase < 10 U/L Low 11.0 -82.[address] [place] [address] [phone] CBC Auto Diff 12/14/2018 [facility] White Blood 9.6 Normal 3.5 -10.[address] Count 10^3/[place] [address] [phone] Red Blood Count 4.05 10^6/uL Normal 3.70-4.87 [...] Blood Cells % 0.1 Laboratory test 12/14/2018 [facility] Lactic Acid 1.6 mmol/L Normal 0.5-2.0 105 finding 101 [place] [address] [phone] Comp Metabolic 12/14/2018 [facility] Sodium 137 mmol/L Normal 135-145 Panel [address] [place] [address] [phone] Potassium 4.3 mmol/L Normal 3.5-5.0 Chloride 105 [...] Egfr Non- 59.6 >60 Egfr 72.1 >60 106 Laboratory test 12/14/2018 [facility] Troponin-I (TnI) 0.01 ng/ mL <0.04 107 finding [address] [place] [address] [phone] B-Type Natriuretic Peptide BNP 10 pg/mL <=100 Laboratory test 12/14/2018 [facility] Point of 128 mg/dL High 70-100 [address] [place] [address] [phone] CBC Auto Diff 12/14/2018 [facility] White Blood 13.8 High 3.5- 10.[address] Count 10^3/uL [place], [place] [phone] Red Blood Count 4.50 10^6/uL Normal 3.70-4.87 [...] Red Blood Cells % 0.0 Inr/Protime 12/14/2018 [facility] Inr 0.89 Normal 0.82-1.[address] [place] [address] [phone] Laboratory test 12/14/2018 [facility] Partial 23.9 Low 26.0- 36.[address] [place] [address] Time PTT [phone] Troponin-I (TnI) 0.01 ng/mL <0.04 110 Comp Metabolic 12/14/2018 [facility] Sodium 142 mmol/L Normal 135-[address] [place] [address] [phone] Potassium 4.0 mmol/L Normal 3.5-5.0 Chloride 110 [...] Egfr Non- 73.2 >60 Egfr 88.6 >60 111 Laboratory test 12/14/2018 [facility] Magnesium 1.6 mg/dL Low 1.9-2.[address] [place] [address] [phone] Amylase 33 U/L Normal 29-103 Lipase < 10 U/L Low 11.0-82.0 C Reactive Protein 3.27 mg/L Normal <8.01 HCG 2.75 mIU/mL 112 Urinalysis Profile 12/14/2018 [facility] Urine Color Yellow [address] [place] [address] [phone] Urine Appearance Clear Urine Specific [place] 1.004 Low 1.010-1.030 Urine pH 6.0 Normal [...] Cell Present Abnormal Absent Laboratory test 12/14/2018 [facility] Lactic 1.5 Normal 0.5- 2.0 [address] Acid mmol/[place] [address] [phone] Urine Culture And 12/14/2018 [facility] Urine SEE [address] [place] [address] BELOW [phone] CBC Auto Diff 12/09/2018 [facility] White 9.7 Normal 3.5-10.[address] Blood 10^3/[place] [address] Count [phone] Red Blood Count 4.43 10^6/uL Normal 3.70-4.87 [...] Blood Cells % 0.1 Comp Metabolic 12/09/2018 [facility] Sodium 139 mmol/L Normal 135-[address] [place] [address] [phone] Chloride 106 mmol/L Normal 101-111 Co2 Carbon [...] Egfr Non- 61.8 >60 Egfr 74.7 >60 115 Potassium 4.9 mmol/L Normal 3.5-5.0 Anion Gap 7 mmol/L Normal 2-11 Ast 51 U/L High 13-39 Laboratory test finding 12/09/2018 [facility] Amylase 23 U/L Low 29-103 [address] [place] [address] [phone] Lipase < 10 U/L Low 11.0-82.0 1 reviewed UC note today with dx of UTI Pt is on Cefdinir 2 Vice President Safety: [id number] REFERENCE VALUE Cutoff: 500 4 REFERENCE VALUE Cutoff: 200 5 REFERENCE VALUE Cutoff: 100 6 REFERENCE VALUE Cutoff: 150 7 ADDITIONAL INFORMATION This report is intended for use in clinical monitoring or management of patients. It is not intended for use in employment-related testing. Test Performed by: [email or web address] [address] [place] [address] [employer]: Nathaniel Moura M.D. Ph.D.; CLIA# [id number] 8 REFERENCE VALUE Cutoff: 200 mg/L 9 Tylenol 3 10 Metabolite of codeine REFERENCE VALUE Cutoff: 100 11 Crissy Aguilar, MS Contin; Also a minor metabolite (10%) of codeine and can be seen in low concentrations (<2,000 ng/mL) with poppy seed ingestion. 12 Metabolite of morphine REFERENCE VALUE Cutoff: 100 13 Metabolite of heroin 14 Lortab, [place], Vicodin; Also a very minor metabolite of codeine and impurity (<1%) of oxycodone. 15 Metabolite of hydrocodone 16 Metabolite of hydrocodone 17 Dilaudid, Exalgo; Also a metabolite of hydrocodone and a minor (<5%) metabolite of morphine. 18 Metabolite of hydromorphone REFERENCE VALUE Cutoff: 100 19 Endocet, Percocet, Oxycontin 20 Metabolite of oxycodone 21 Numorphan, Opana; Also a metabolite of oxycodone. 22 Metabolite of oxymorphone REFERENCE VALUE Cutoff: 100 23 Metabolite of oxymorphone 24 Actiq, Duragesic, Fentora 25 Metabolite of fentanyl 26 Demerol 27 Metabolite of meperidine 28 Narcan 29 Metabolite of naloxone REFERENCE VALUE Cutoff: 100 30 Dolophine 31 Metabolite of methadone 32 Darvon, Darvocet 33 Metabolite of propoxyphene 34 Tradol, Ultram, Ultracet 35 Metabolite of tramadol 36 Nucynta 37 Metabolite of tapentadol 38 Metabolite of tapentadol REFERENCE VALUE Cutoff: 100 39 Buprenex, Suboxone 40 Metabolite of buprenorphine 41 Metabolite of buprenorphine 42 Test detected the presence of oxycodone and one of its metabolites (noroxycodone) along with [id number]-[id number]-lsnq-glucuronide (metabolite of oxymorphone). Suspect use of oxycodone and/or oxymorphone within the past three days. ADDITIONAL INFORMATION This test was developed and its performance characteristics determined by [facility] in a manner consistent with CLIA requirements. This test has not been cleared or approved by the U.S. Food and Drug Administration. 43 [id number] 44 [id number] 45 SEE RESULT BELOW Name: CECILIO ALFARO Cameron : [address]: Rosa Schroeder MD Acct: [id number] Unit: [id number] AGE: 53 Location: [facility] Re02/16/19 SEX: F Status: REG REF SPEC: [id number] ANKUR: 02/16/19-[address]: Rosa Schroeder MD REQ: [id number] RECD: 02/16/19 STATUS: COMP _ SOURCE: URINE SPDESC: ORDERED: Urine Culture COMMENTS: [id number] Urine Source: Random Procedure Result Reported Site Urine Culture Final 02/18/19- 16 ML Organism 1 ESCHERICHIA COLI [place] Count 10-25,000 (Moderate) CFU/ML Organism 2 ENTEROCOCCUS FAECIUM [place] Count >100,000 (Many) CFU/ML 1. ESCHERICHIA COLI [facility].I.[facility]. RX --------- ------ Ampicillin 8 S Cefazolin <=4 S Cefepime <=1 S Ceftriaxone <=1 S Ciprofloxacin <=0.25 S Gentamicin <=1 S Levofloxacin <=0.12 S Meropenem <=0.25 S Nitrofurantoin <=16 S Tetracycline >=16 R Pipercillin/Tazobactam <=4 S Trimethoprim/Sulfamethoxazole <=20 S Amoxicillin/Clavulanic Acid <=2 S Aztreonam <=1 S CONTINUED ON NEXT PAGE DEPARTMENT OF PATHOLOGY, [address] [place] [address] Tay Gamboa M.D. Director [facility] # [id number] Patient: CECILIO ALFARO [id number] (Continued) Specimen: [id number] Collected: 02/16/19 Received: 02/16/19-1225 (Continued) Procedure Result Reported Site [...] These antibiotics are not available in the [facility] Formulary Contact the Microbiology Department for any additional antibiotic reporting. Contact the Microbiology Department for any additional antibiotic reporting. * ML - Main Lab . END OF REPORT DEPARTMENT OF PATHOLOGY, [address] [place] [address] Tay Gamboa M.D. Director [facility] # [id number] 46 Vice President Safety: [id number] 47 Vice President Safety: [id number] 48 Vice President Safety: [id number] 49 Vice President Safety: [id number] 50 SEE RESULT BELOW Name: CECILIO ALFARO : [address]: Violeta Yusuf MD Acct: [id number] Unit: [id number] AGE: 53 Location: ED Re02/09/19 SEX: F Status: DEP ER SPEC: [id number] ANKUR: 02/09/[address]: Maycol Al MD REQ: [id number] RECD: 02/09/19 STATUS: COMP [facility] DR: [facility] Rsoa Schroeder MD _ SOURCE: URINE SPDESC: ORDERED: Urine Culture Procedure Result Reported Site Urine Culture Final 02/10/19- 1600 ML No growth of clinically significant organisms * ML - Main Lab . END OF REPORT DEPARTMENT OF PATHOLOGY, [address] [place] [address] Tay Gamboa M.D. Director [facility] # [id number] 51 Reference ranges based on room air. 52 *Ascorbic acid is present which may interfere with detection of blood. 53 Because ethnic data is not always [...] 5 Kidney failure <15 (or dialysis) 54 Critical Result LACT:2.9 Called to [id number] at: 19:36:39 by:[id number] Read back by:[id number] [facility] Severe Sepsis and Septic Shock Management Bundle Measure requires all lactic acids initially measuring >2.0 mmol/L be repeated. 55 [id number] 56 Therapeutic target for the treatment of diabetes mellitus patients is <7% HBA1C, and in selective patients <6.0%. Please refer to [place] [employer] diabetic care guidelines for further information. 57 Specimen hemolyzed. Result may not be valid. [facility] Severe Sepsis and Septic Shock Management Bundle [...] 5 Kidney failure <15 (or dialysis) 59 SEE RESULT BELOW Name: CECILIO ALFARO : [address]: Neo Kauffman MD Acct: [id number] Unit: [id number] AGE: 53 Location: ED Re02/03/19 SEX: F Status: DEP ER SPEC: [id number] ANKUR: 02/03/[address]: Senia OLSEN REQ: [id number] RECD: 02/03/19 STATUS: TASHA BARFIELD DR: Rosa Kauffman MD _ SOURCE: URINE SPDESC: ORDERED: Urine Culture Procedure Result Reported Site Urine Culture Final 02/06/19- 0850 ML Organism 1 ENTEROCOCCUS FAECALIS [place] Count >100,000 (Many) CFU/ML 1. ENTEROCOCCUS FAECALIS [...] These antibiotics are not available in the [facility] Formulary Contact the Microbiology Department for any additional antibiotic reporting. * ML - Main Lab . END OF REPORT DEPARTMENT OF PATHOLOGY, [address] [place] [address] Tay Gamboa M.D. Director [facility] # [id number] 60 Vice President Safety: [id number] 61 Vice President Safety: [id number] 62 SEE RESULT BELOW Name: CECILIO ALFARO : [address]: Sherita Lui MD Acct: [id number] Unit: [id number] AGE: 53 Location: [place] [address]- Re02/01/19 Dis: 02/03/19 SEX: F Status: DIS [place] SPEC: [id number] ANKUR: 02/01/[address] [facility] [address]: Maycol Al MD REQ: [id number] RECD: 02/01/19 STATUS: COMP KENIAHR DR: Rosa Schroeder MD _ SOURCE: BLOOD,VENO SPDES: ORDERED: Blood Cult Procedure Result Reported Site Aerobic Culture Bottle Final 02/06/19- 1904 ML No Growth Day 5 Anaerobic Culture Bottle Final 02/06/191902 ML No Growth Day 5 * ML - Main Lab . END OF REPORT DEPARTMENT OF PATHOLOGY, [address] [place] [address] Tay Gamboa M.D. Director [facility] # [id number] 63 SEE RESULT BELOW Name: CECILIO ALFARO : [address]: Avery Leavitt MD Acct: [id number] Unit: [id number] AGE: 53 Location: [place] [address]- Re02/01/19 SEX: F Status: ADM IN SPEC: [id number] ANKUR: 02/01/[address]: Maycol Al MD REQ: [id number] RECD: 02/01/19 STATUS: TASHA BARFIELD DR: Rosa Schroeder MD _ SOURCE: URINE SPDESC: ORDERED: Urine Culture Procedure Result Reported Site Urine Culture Final 02/02/19- 1607 ML No Growth (<1,000 CFU/mL) * ML - Main Lab . END OF REPORT DEPARTMENT OF PATHOLOGY, [address] [place] [address] Tay Gamboa M.D. Director [facility] # [id number] 64 Standard intensity warfarin therapeutic range: 2.0-3.0 High intensity warfarin therapeutic range: 2.5-3.[address] [facility] Severe Sepsis and Septic Shock Management Bundle [...] 5 Kidney failure <15 (or dialysis) 67 Troponin-I testing on Plasma Separator Tubes (PST) has a known false positive rate of 0.20-0.40%. All positive troponins reflex immediately to secondary confirmatory testing. Using the [employer] 800 Access Immunoassay systems, the 99th percentile upper reference limit was demonstrated to be < 0.03 ng/mL. 68 [id number] 69 SEE RESULT BELOW Name: CECILIO ALFARO : [address]: Rosa Schroeder MD Acct: [id number] Unit: [id number] AGE: 53 Location: [facility] Re01/30/19 SEX: F Status: REG REF SPEC: [id number] ANKUR: 01/30/19-[address] [facility] [address]: Rosa Schroeder MD REQ: [id number] RECD: 01/31/19 STATUS: COMP _ SOURCE: URINE SPDESC: ORDERED: Urine Culture COMMENTS: [id number] Urine Source: Random Procedure Result Reported Site Urine Culture Final 02/02/19- 08 ML Organism 1 FAY CUMMINGS [place] Count 10-25,000 (Moderate) CFU/ML Organism 2 NORMAL MICHELLE [place] Count 1-10,000 (Few) CFU/ML 1. FAY CUMMINGS [...] . END OF REPORT DEPARTMENT OF PATHOLOGY, [address] [place] [address] Tay Gamboa M.D. Director [facility] # [id number] 70 SEE RESULT BELOW Name: CECILIO ALFARO Cameron : [address]: Corey Easton MD Acct: [id number] Unit: [id number] AGE: 53 Location: ED Re01/28/19 SEX: F Status: DEP ER SPEC: [id number] ANKUR: 01/28/[address] [facility] [address]: Corey Easton MD REQ: [id number] RECD: 01/28/19 STATUS: TASHA BARFIELD DR: Rosa Schroeder MD _ SOURCE: URINE [facility] [place] ORDERED: Urine Culture Procedure Result Reported Site Urine Culture Final 01/31/19- 0934 ML Organism 1 ESCHERICHIA COLI [place] Count 10-25,000 (Moderate) CFU/ML Organism 2 ENTEROCOCCUS FAECALIS [place] Count 75-100,000 (Many) CFU/ML 1. ESCHERICHIA COLI [...] CONTINUED ON NEXT PAGE DEPARTMENT OF PATHOLOGY, [address] [place] [address] Tay Gamboa M.D. Director [facility] # [id number] Patient: CECILIO ALFARO [id number] (Continued) Specimen: [id number] Collected: 01/28/19 Received: 01/28/19 (Continued) Procedure Result [...] These antibiotics are not available in the [facility] Formulary Contact the Microbiology Department for any additional antibiotic reporting. Contact the Microbiology Department for any additional antibiotic reporting. * ML - Main Lab . END OF REPORT DEPARTMENT OF PATHOLOGY, [address] [place] [address] Tay Gamboa M.D. Director [facility] # [id number] 71 Standard intensity warfarin therapeutic range: 2.0-3.0 High intensity warfarin therapeutic range: 2.5-3.5 72 Because ethnic data is not always [...] 5 Kidney failure <15 (or dialysis) 73 Troponin-I testing on Plasma Separator Tubes (PST) has a known false positive rate of 0.20-0.40%. All positive troponins reflex immediately to secondary confirmatory testing. Using the [employer] [place] DxI 800 Access Immunoassay systems, the 99th percentile upper reference limit was demonstrated to be < 0.03 ng/mL. 74 <5.0 Negative 5.0 - 25.0 Indeterminate (Repeat testing recommended after 72 hours) >25.0 Positive Perimenopausal women can display HCG levels of up to 20 mIU/mL 75 [facility] Severe Sepsis and Septic Shock Management Bundle Measure requires all lactic acids initially measuring >2.0 mmol/L be repeated. 76 [facility] Severe Sepsis and Septic Shock Management Bundle Measure requires all lactic acids initially measuring >2.0 mmol/L be repeated. 77 SEE RESULT BELOW Name: CECILIO ALFARO : [address]: Temi Brewer Acct: [id number] Unit: [id number] AGE: 53 Location: ED Re01/23/19 SEX: F Status: DEP ER SPEC: [id number] ANKUR: 01/24/[address] [facility] [address]: Temi Trujillo MD REQ: [id number] RECD: 01/24/19 STATUS: TASHA BARFIELD DR: Rosa Schroeder MD _ SOURCE: URINE SPDESC: ORDERED: Urine Culture Procedure Result Reported Site Urine Culture Final 01/26/19- 0823 ML Organism 1 ESCHERICHIA COLI [place] Count 25-50,000 (Moderate) CFU/ML Organism 2 NORMAL MICHELLE [place] Count 25-50,000 (Moderate) CFU/ML 1. ESCHERICHIA COLI [...] for any additional antibiotic reporting. * - [facility] . END OF REPORT DEPARTMENT OF PATHOLOGY, [address] [place] [address] Tay Gamboa M.D. Director [facility] # [id number] 78 Because ethnic data is not always [...] 5 Kidney failure <15 (or dialysis) 79 Vice President Safety: [id number] 80 Repeat Test Insufficient sample Vice President Safety: [id number] 81 Vice President Safety: [id number] 82 Vice President Safety: [id number] 83 Vice President Safety: [id number] 84 SEE RESULT BELOW Name: CECILIO ALFARO : [address]: Jonathan Reynoso DO Acct: [id number] Unit: [id number] AGE: 53 Location: [place] Re01/19/19 SEX: F Status: BITA JACOBS SPEC: [id number] ANKUR: 01/19/[address]: Jonathan Reynoso DO REQ: [id number] RECD: 01/19/19188 STATUS: NILS BARFIELD DR: Rosa Schroeder MD [...] CONTINUED ON NEXT PAGE DEPARTMENT OF PATHOLOGY, [address] [place] [address] Tay Gamboa M.D. Director [facility] # [id number] RUN DATE: 01/22/19 [facility] LAB LIVE PAGE 2 Patient: CECILIO ALFARO [id number] (Continued) FINAL DIAGNOSIS (Continued) PRE-OPERATIVE DIAGNOSIS 6) [...] CONTINUED ON NEXT PAGE DEPARTMENT OF PATHOLOGY, [address] [place] [address] Tay Gamboa M.D. Director [facility] # [id number] RUN DATE: 01/22/19 [facility] LAB LIVE PAGE 3 Patient: CECILIO ALFARO [place] [id number] (Continued) GROSS DESCRIPTION (Continued) tissue fragments which is submitted entirely in one cassette. Signed by and Reported on: Tay Gamboa MD 1439 END OF REPORT DEPARTMENT OF PATHOLOGY, [address] [place] [address] Tay Gamboa M.D. Director [facility] # [id number] 85 Vice President Safety: [id number] 86 SEE RESULT BELOW Name: ANGELINACECILIO Cameron : [address]: Jonathan Reynoso DO Acct: [id number] Unit: [id number] AGE: 53 Location: [place] Re01/19/19 SEX: F Status: DEP SDC SPEC: [id number] ANKUR: 01/19/19-[address]: Jonathan Reynoso DO REQ: [id number] RECD: 01/19/19383 STATUS: COMP OTHR DR: Rosa Schroeder MD _ SOURCE: GAS ANTRUM SPDESC: ORDERED: Clotest Procedure Result Reported Site Clotest Final 01/20/19- 808 ML Clotest Negative * ML - Main Lab . END OF REPORT DEPARTMENT OF PATHOLOGY, [address] [place] [address] Tay Gamboa M.D. Director [facility] # [id number] 87 Because ethnic data is not always [...] 5 Kidney failure <15 (or dialysis) 88 Vice President Safety: [id number] 89 Critical Result ACTM:141.6 Called to RITCHIE at: 15:26:33 by:[id number] Read back by:[email or web address] Therapeutic concentration: <50 ug/mL Toxic concentration: >120 ug/mL 90 Because ethnic data is not always readily [...] 15-29 5 Kidney failure <15 (or dialysis) 91 Critical Result ACTM:225.7 Called to [id number] at: 13:20:54 by:[id number] Read back by:[id number] Therapeutic concentration: <50 ug/mL Toxic concentration: >120 ug/mL 92 Vice President Safety: [id number] 93 Because ethnic data is not always [...] 5 Kidney failure <15 (or dialysis) 94 Vice President Safety: [id number] 95 The urine specimen was tested at the listed cutoffs: Drug class test level (ng/mL) Amphetamines 500 Barbiturates 200 Benzodiazepine metabolites 200 Cocaine metabolites 150 Cannabinoids 50 Opiates 300 Pcp 25 Specimen was received without chain of custody. Results should be used for medical purposes only. 96 Because ethnic data is not always readily [...] 15-29 5 Kidney failure <15 (or dialysis) 97 Therapeutic concentration: <50 ug/mL Toxic concentration: >120 ug/mL 98 SEE RESULT BELOW Name: CECILIO ALFARO : [address]: Juan David Cardoza MD Acct: [id number] Unit: [id number] AGE: 53 Location: ED Re01/02/19 SEX: F Status: REG ER SPEC: [id number] ANKUR: 01/02/[address] [facility] [address]: Lupis Cardoza MD REQ: [id number] RECD: 01/02/19 STATUS: COMP LICO DR: Rosa Schroeder MD _ SOURCE: URINE SPDESC: ORDERED: Urine Culture Procedure Result Reported Site Urine Culture Final 01/03/19- 1135 ML Mixed michelle; possible contamination. Suggest resubmission. * ML - Main Lab . END OF REPORT DEPARTMENT OF PATHOLOGY, [address] [place] [address] Tay Gamboa M.D. Director [facility] # [id number] 99 Troponin-I testing on Plasma Separator Tubes (PST) has a known false positive rate of 0.20-0.40%. All positive troponins reflex immediately to secondary confirmatory testing. Using the [employer] [place] DxI 800 Access Immunoassay systems, the 99th percentile upper reference limit was demonstrated to be < 0.03 ng/mL. 100 Vice President Safety: [id number] 101 Vice President Safety: [id number] 102 [facility] Severe Sepsis and Septic Shock Management Bundle Measure requires all lactic acids initially measuring >2.0 mmol/L be repeated. 103 Because ethnic data is not always [...] 5 Kidney failure <15 (or dialysis) 104 Critical Result GLU:46 Called to [id number] at: 16:46:21 by:[id number] Read back by:[id number] [facility] Severe Sepsis and Septic Shock Management Bundle Measure requires all lactic acids initially measuring >2.0 mmol/L be repeated. 106 Because ethnic data is not always readily [...] 15-29 5 Kidney failure <15 (or dialysis) 107 Troponin-I testing on Plasma Separator Tubes (PST) has a known false positive rate of 0.20-0.40%. All positive troponins reflex immediately to secondary confirmatory testing. Using the [employer] DxI 800 Access Immunoassay systems, the 99th percentile upper reference limit was demonstrated to be < 0.03 ng/mL. 108 Vice President Safety: [id number] 109 Standard intensity warfarin therapeutic range: 2.0-3.0 High intensity warfarin therapeutic range: 2.5-3.5 110 Troponin-I testing on Plasma Separator Tubes (PST) has a known false positive rate of 0.20-0.40%. All positive troponins reflex immediately to secondary confirmatory testing. Using the [employer] DxI 800 Access Immunoassay systems, the 99th percentile upper reference limit was demonstrated to be < 0.03 ng/mL. 111 Because ethnic data is not always [...] 5 Kidney failure <15 (or dialysis) 112 <5.0 Negative 5.0 - 25.0 Indeterminate (Repeat testing recommended after 72 hours) >25.0 Positive Perimenopausal women can display HCG levels of up to 20 mIU/mL 113 [facility] Severe Sepsis and Septic Shock Management Bundle Measure requires all lactic acids initially measuring >2.0 mmol/L be repeated. 114 SEE RESULT BELOW Name: CECILIO ALFARO : [address]: Violeta Yusuf MD Acct: [id number] Unit: [id number] AGE: 53 Location: ED Re12/14/18 SEX: F Status: DEP ER SPEC: [id number] ANKUR: 12/14/18-[address] [facility] [address]: Violeta Yusuf MD REQ: [id number] RECD: 12/14/18 STATUS: TASHA AQUINOHR DR: Rosa Schroeder MD _ SOURCE: URINE SPDESC: ORDERED: Urine Culture Procedure Result Reported Site Urine Culture Final 12/15/18- 1256 ML No growth of clinically significant organisms * ML - Main Lab . END OF REPORT DEPARTMENT OF PATHOLOGY, [address] [place] [address] Tay Gamboa M.D. Director [facility] # [id number] 115 Because ethnic data is not always readily [...] (or dialysis) Procedures Date Code Description Status 05/23/2019 52441 Inject Tendon Sheath Or Ligament Aponeurosis Eg Completed Plantar Fascia 02/27/2019 [id number] Mammogram Completed 01/19/2019 [id number] Colonoscopy Completed 10/26/2017 [id number] Diabetic Retinal Eye Exam Completed 05/01/2016 [id number] Mammogram Completed Medical Devices Description No Information Available Encounters Type Date Location Provider Dx Diagnosis Office Visit 06/08/2019 [facility] Michelle Larry, R10.30 Lower abdominal 9:00a Medicine - Raine LAWSON pain, unspecified K42.9 Umbilical hernia without obstruction or gangrene Z72.0 Tobacco use I10 Essential (primary) hypertension E11.65 Type 2 diabetes mellitus with hyperglycemia Office Visit 05/18/2019 3:30p Surgical Alexander Godinez K42.9 [facility] Hernandez MD, without FACS obstruction or gangrene E66.01 Morbid (severe) obesity due to excess calories Z72.0 Tobacco use Office Visit 05/11/2019 3:45p Surgical Alexander PJarred K42.9 [facility] Hernandez MD, without FACS obstruction or gangrene Z72.0 Tobacco use E66.01 Morbid (severe) obesity due to excess calories Office Visit 03/23/2019 1:40p [facility] Jun Schroeder MD I10 Essential (primary) Medicine - Ccm[facility] hypertension B35.6 Tinea cruris R53.83 Other fatigue G47.30 Sleep apnea, unspecified F17.210 Nicotine dependence, cigarettes, uncomplicated L03.116 Cellulitis of left lower limb Office Visit 02/28/2019 Neuro[facility] Vassilios M47.896 Other 2:00p [facility] Samuel MD spondylosis, lumbar region Office Visit 02/07/2019 [facility] Jun Schroeder MD N39.0 Urinary tract 3:40p Medicine - Ccm[facility] infection, site not specified R10.84 Generalized abdominal pain Office Visit 02/02/2019 11:33a [facility] Essie N39.0 Urinary tract Assoc,matthieu Up, infection, site Hospitalists ORE CHARGER not specified Office Visit 02/01/2019 11:32a [facility] Quique E87.6 Hypokalemia Assoc,matthieu Aden M.D. Hospitalists E16.2 Hypoglycemia, unspecified R10.9 Unspecified abdominal pain R30.0 Dysuria Office Visit 01/30/2019 4:40p [facility] Jun Schroeder MD N39.0 Urinary tract Medicine - Ccmob infection, site not specified B37.3 Candidiasis of vulva and vagina I10 Essential (primary) hypertension Z12.31 Encntr screen mammogram for malignant neoplasm of breast Office Visit 01/30/2019 [facility] Mayer Coch, E11.65 Type 2 diabetes 11:20a Endocrinology of MD mellitus with [facility] hyperglycemia Z79.4 nursing home (current) use of insulin Office Visit 01/12/2019 10:20a [facility] Internal Robyn Cesar, B37.2 Candidiasis of Medicine - [facility]cm[facility] skin and nail T14.91xD Suicide attempt, subsequent encounter Office Visit 12/22/2018 [facility]ili[facility] M47.896 Other 11:00a Services [facility] MD Jimmie spondylosis, lumbar region M48.062 Spinal stenosis, lumbar region with neurogenic claudication Office Visit 12/20/2018 3:00p Spine Navigator Consuelo Corrales, M51.27 Other intervertebral Of [facility] PA-C disc displacement, lumbosacral region Office Visit 12/20/2018 8:00a [facility] Internal Rosa Schroeder, F25.9 Schizoaffective Medicine - MD disorder, unspecified Ccmob E11.65 Type 2 diabetes mellitus with hyperglycemia 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, lumbosacral region I10 Essential (primary) hypertension Z72.0 Tobacco use J45.909 Unspecified asthma, uncomplicated K86.81 Exocrine pancreatic insufficiency Office Visit 12/08/2018 [facility], E11.65 Type 2 diabetes 9:40a Endocrinology of MD mellitus with [facility] hyperglycemia 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 E03.9 Hypothyroidism, unspecified F25.9 Schizoaffective disorder, unspecified Assessments Date Code Description Provider 06/08/2019 R10.30 Lower abdominal pain, unspecified Michelle Larry MD 06/08/2019 K42.9 Umbilical hernia without obstruction or Michelle Larry MD gangrene 06/08/2019 Z72.0 Tobacco use Michelle Larry MD 06/08/2019 I10 Essential (primary) hypertension Michelle Larry MD 06/08/2019 E11.65 Type 2 diabetes mellitus with Michelle Larry MD hyperglycemia 05/23/2019 M65.4 Radial styloid tenosynovitis [Adelina Espinoza] [...] and vagina Rosa Schroeder MD 01/30/2019 Z79.4 nursing home (current) use of insulin Moreno Sandoval MD [...] with Moreno Sandoval MD hyperglycemia 12/08/2018 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 at [facility] at [facility]107/05/2019 2:00 pm - Yesenia Alvarez MD at [facility]07/03/2019 1:40 pm - Moreno Sandoval MD at [facility]06/13/2019 10:15 am - Brie Portillo NP at [facility] 10:15 am - Alexander Hernandez MD, FACS at [facility]/21/2019 1:00 pm - Alexander Hernandez MD, FACS at [facility]/08/2019 - Michelle Larry, MDR10.30 Lower abdominal pain, cmovucpdpxuG43.9 Umbilical hernia without obstruction or rhqgqxakF07.0 Tobacco useI10 Essential (primary) hypertensionComments:Follow up in 3 months for ejfnuaY89.65 Type 2 diabetes mellitus with hyperglycemia Functional Status Description No Information Available Mental Status Description No Information Available Referrals Refer to Dr Reason for Referral Status Appt Date Rosa Schroeder M.D. Scheduled 07/03/[address] [place], [place] [id number] [phone] Karolina Pradhan MD pt with long standing umbilical hernia now causing Sent pain and tender to palpation [address] [place], [place] [address] [phone] [facility] pt with known BETZY, has been without cpap for years, Sent now complaining of excessive daytime fatigue [address] [place], [place] [address] [phone]
== END 2019-06-17 22:02 | disposition home or self-care (01) ==
LOC: ED 19:58
DX: E11.65 Type 2 diabetes mellitus with hyperglycemia (principal); Z79.4 Long term (current) use of insulin; I10 Essential (primary) hypertension; K21.9 Gastro-esophageal reflux disease without esophagitis; Z88.0 Allergy status to penicillin; Z88.2 Allergy status to sulfonamides; E66.01 Morbid (severe) obesity due to excess calories; F41.9 Anxiety disorder, unspecified; F32.9 Major depressive disorder, single episode, unspecified; Z87.891 Personal history of nicotine dependence; Z79.899 Other long term (current) drug therapy
CPT/HCPCS: 36415; 71045; 80053; 81003; 82803; 83605; 85025; 85610; 86140; 87086; 99283

== ENCOUNTER 2019-06-18 01:19 | Emergency (ER) | payer MEDICARE, MEDICAID ==
[2019-06-18 02:05] LABS: ABS Basophils 0.1 10^3/ul (0-0.2); ABS Eosinophils 0.1 10^3/ul (0-0.6); ABS Lymphocytes 2.9 10^3/ul (1.0-4.8); ABS Monocytes 0.5 10^3/ul (0-0.8); ABS Neutrophils 6.1 10^3/ul (1.5-7.7); Hematocrit 38 % (35-47); Hemoglobin 12.3 g/dL (12.0-16.0); Lymphocyte % 30.6 %; Mean Corpuscular HGB Conc 33 g/dL (31-36); Mean Corpuscular Hemoglobin 29 pg (27-31); Mean Corpuscular Volume 89 fL (80-97); Mean Platelet Volume 8.7 fL (7.4-10.4); Nucleated Red Blood Cells % 0.2; Platelet Count 191 10^3/uL (150-450); Red Blood Count 4.24 10^6 /uL (3.70-4.87); Red Cell Distribution Width 16 % (10-15); White Blood Count 9.6 10^3/uL (3.5-10.8)
[2019-06-18 02:22] LABS: ALT 51 U/L (7-52); AST 43 U/L (13-39); Albumin 3.6 g/dL (3.2-5.2); Albumin/Globulin Ratio 1.2 (1-3); Alkaline Phosphatase 137 U/L (34-104); Anion Gap 7 mmol/L (2-11); BUN/Creatinine Ratio 13.3 (8-20); Blood Urea Nitrogen 12 mg/dL (6-24); CO2 Carbon Dioxide 27 mmol/L (22-32); Calcium 9.1 mg/dL (8.6-10.3); Chloride 104 mmol/L (101-111); EGFR African American 79.6 (>60); EGFR Non-African American 65.8 (>60); Glucose 189 mg/dL (70-100); Potassium 4.3 mmol/L (3.5-5.0); Sodium 138 mmol/L (135-145); Total Protein 6.6 g/dL (6.4-8.9)
[2019-06-18 02:55] LABS: Acetaminophen < 15 mcg/mL; Alcohol < 10 mg/dL (<10); Salicylate < 2.50 mg/dL (<30)
[2019-06-18 03:10] LABS: TSH (Thyroid Stimulating Horm) 0.43 mcIU/mL (0.34-5.60)
--- NOTE | 2019-06-18 03:37 | ED ---
Psychiatric Complaint - HPI Summary HPI Summary: This pt is a 53 Y/O F presenting to [facility] as a 941 from [facility]. She states that she is currently very stressed due to her most recent hernia surgery that occurred on 06/13/19. She states that her blood sugar has been fluctuating and that has not helped her mood either. She states that she was scratching at her scar and was unable to sleep. She states that she was trying to kill herself by bleeding to through scratching though her umbilical scar. She states that she is having extreme stress at where she's living. She currently denies any fevers, chills, SOB, headaches, N/V, and HI. She has no alleviating factors. She states that her recent surgery is causing her to have the anxiety. She has a PMHx of anxiety, diabetes, and morbid obesity. She states that she does not drink any alcohol or abuse substances. - History Of Current Complaint Chief Complaint: EDMentalHealth Time Seen by Provider: 06/18/19 01:48 Hx Obtained From: Patient Hx Last Menstrual Period: 1.5 years ?: No Onset/Duration: Sudden Onset Timing: Constant Severity Initially: Moderate Severity Currently: Moderate Character: Anxious Aggravating Factor(s): Recent Stress - states that she had a recent hernia surgery on 06/13/19. Alleviating Factor(s): Nothing Associated Signs And Symptoms: Positive: Negative - fevers, chills, SOB, headaches, N/V, and HI. Has Suicidal: Reports: Thoughts, With A Plan Has Homicidal: Denies: Thoughts, With A Plan Recent Stressor(s): Hernia surgery 06/13/19 - Allergies/Home Medications Allergies/Adverse Reactions: Allergies Allergy/AdvReac Type Severity Reaction Status Date / Time lurasidone [From Latuda] Allergy Severe Altered Verified 06/07/19 11:25 Mental Status ciprofloxacin Allergy Intermediate Dizziness Verified 06/07/19 11:25 latex Allergy Mild Rash Verified 06/07/19 11:25 lithium Allergy Mild See Comment Verified 06/07/19 11:25 metformin Allergy Unknown Verified 06/07/19 11:25 Reaction Details nalbuphine Allergy Unknown Verified 06/07/19 11:25 Reaction Details naldemedine Allergy Unknown Verified 06/07/19 11:25 Reaction Details nitrofurantoin Allergy See Comment Verified 11/07/19 11:25 [From Macrobid] Penicillins Allergy Rash Verified 06/07/19 11:25 perphenazine Allergy Unknown Verified 06/07/19 11:25 Reaction Details Sulfa (Sulfonamide Allergy Hives Verified 06/07/19 11:25 Antibiotics) tramadol Allergy Altered Verified 06/07/19 11:25 Mental Status ENVIRONMENTAL Allergy Mild SINUS Uncoded 06/07/19 11:25 PMH/Surg Hx/FS Hx/Imm Hx Previously Healthy: Yes Endocrine/Hematology History: Reports: Hx Diabetes - TYPE 2-INSULIN DEPENDENT, Hx Thyroid Disease - HX OF THYROTOXICOSIS, Other Endocrine/Hematological Disorders - Chronic pancreatitis Denies: Hx Anticoagulant Therapy Cardiovascular History: Reports: Hx Hypertension - ON MEDICATION FOR, Other Cardiovascular Problems/Disorders - HX OF PSVT 04/2008 Denies: Hx Hypercholesterolemia, Hx Pacemaker/ICD Respiratory History: Reports: Hx Asthma - RESCUE INHALER, Hx Seasonal Allergies , Hx Sleep Apnea - HX OF IN THE PAST-AWAITING A SLEEP STUDY Denies: Hx Chronic Bronchitis, Hx Chronic Obstructive Pulmonary Disease (COPD ), Hx Cystic Fibrosis, Hx Lung Cancer, Hx Pleural Effusion, Hx Pneumonia, Hx Pulmonary Edema, Hx Pulmonary Embolism, Other Respiratory Problems/Disorders GI History: Reports: Hx Gall Bladder Disease, Hx Gastroesophageal Reflux Disease - ON MEDICATION FOR, Hx Gastrointestinal Bleed, Hx Irritable Bowel, Other GI Disorders - HX OF pancreatitis- IN THE PAST// HX OF CONSTIPATION/ DIARRHEA Denies: Hx Ulcer History: Denies: Hx Dialysis, Hx Renal Disease, Other Problems/Disorders Musculoskeletal History: Reports: Hx Arthritis - LOWER BACK, Hx Back Problems, Hx Tendonitis - LEFT WRIST Denies: Hx Rheumatoid Arthritis, Hx Bursitis, Hx Congenital Bone Abnormalities, Hx Fibromyalgia, Hx Gout, Hx Orthopedic Injury, Hx Osteoporosis, Hx Scoliosis, Other Musculoskeletal History Sensory History: Reports: Hx Cataracts, Hx Contacts or Glasses - READING GLASSES , Hx Vision Problem Denies: Hx Eye Injury, Hx Eye Prosthesis, Hx Glaucoma, Hx Macular Degeneration, Hx Hearing Aid, Other Sensory Impairments Opthamlomology History: Reports: Hx Cataracts, Hx Contacts or Glasses - READING GLASSES, Hx Vision Problem Denies: Hx Eye Injury, Hx Eye Prosthesis, Hx Glaucoma, Hx Macular Degeneration, Other Sensory Impairments Neurological History: Reports: Hx Developmental Delay - intellectual disability , Hx Seizures - STATES WITH ALLERGIC REACTION TO TRAMADOL-A COUPLE OF YEARS AGO Denies: Hx Dementia, Hx Headaches, Other Neuro Impairments/Disorders - BIPOLAR/SCHIZOAFFECTIVE DISORDER/PTSD/BORDERLINE PERSONALITY DISORDER Psychiatric History: Reports: Hx Anxiety - ON MEDICATION FOR, Hx Depression - ON MEDICATION FOR, Hx Panic Disorder - TAKES DAILY, Hx Post Traumatic Stress Disorder, Hx Inpatient Treatment, Hx Community Mental Health Tx, Hx Bipolar Disorder - pt manic, Hx Suicide Attempt, Hx of Violent Episodes Against Others, Other Psychiatric Issues/Disorders - PSYCHOSIS NOS, HX OF PTSD, SCHIZOAFFECTIVE DISORDER, BORDERLINE PERSONALITY Denies: Hx Attention Deficit Hyperactivity Disorder, Hx Eating Disorder, Hx Schizophrenia, Hx Substance Abuse - Cancer History Cancer Type, Location and Year: None reported - Surgical History Surgery Procedure, Year, and Place: 2011-CATARACT EXTRACTION;. GALLBLADDER REMOVED ;. HERNIA REPAIR 2018 Hx Anesthesia Reactions: No - Immunization History Date of Tetanus Vaccine: unk Date of Influenza Vaccine: fall 2017 Immunizations Up to Date: Yes Infectious Disease History: No Infectious Disease History: Denies: Hx Clostridium Difficile, Hx Hepatitis, Hx Human Immunodeficiency Virus (HIV), Hx of Known/Suspected MRSA, Hx Shingles, Hx Tuberculosis, Hx Known/ Suspected VRE, Hx Known/Suspected VRSA, History Other Infectious Disease, Traveled Outside the [place] in Last 30 Days - Family History Known Family History: Positive: Other - Anxiety and depression, CA - father Negative: Cardiac Disease, Hypertension, Diabetes Family History: Depression and anxiety - Social History Occupation: Disabled Lives: At [employer] Alcohol Use: None Hx Substance Use: No Substance Use Type: Reports: None Hx Tobacco Use: Yes Smoking Status (MU): Former Smoker Type: Cigarettes Amount Used/How Often: UP TO 1PPD OFF AND ON X 35 YEARS Length of Time of Smoking/Using Tobacco: since she was "young" Have You Smoked in the Last Year: Yes Review of Systems - ROS Summary Review of Systems Summary: Home Medications Medication Instructions Recorded Confirmed Type Losartan TAB* [Cozaar TAB*] 50 mg PO QAM 11/02/17 06/17/19 History Insulin Glargine,Hum.rec.anlog 70 units SUBCUT BEDTIME 07/10/18 06/17/19 History [Basaglar Kwikpen U-100] LoraTADine TAB(NF) [Claritin 10 MG 10 mg PO DAILY PRN 07/10/18 06/17/19 History TAB(NF)] Naproxen [Naproxen 500 mg tab] 500 mg PO BID WITH MEALS PRN 07/10/18 06/17/19 History Atorvastatin* [Lipitor 20 MG*] 20 mg PO BEDTIME 07/18/18 06/17/19 History Ibuprofen TAB* [Motrin TAB* 600 MG] 600 mg PO TID PRN 07/20/18 06/17/19 History Nicotine Inhaler* (NF) [Nicotine 10 mg INH Q2H PRN #200 amp 08/28/18 06/17/19 Rx Inhaler*] Ondansetron HCl [Zofran 4 MG TAB] 4 mg PO Q8H PRN #6 tablet 08/28/18 06/17/19 Rx oxyCODONE/Acetamin 5/325 MG* 1 - 2 tab PO Q6HR PRN MDD 4 11/06/18 06/17/19 History [Percocet 5/325 TAB*] Pancrelipase (NF) [Creon (NF)] 3,000 units PO TID AC 11/22/18 06/17/19 History traZODone TAB* [Desyrel TAB*] 300 mg PO BEDTIME 11/22/18 06/17/19 History Loperamide CAP* [Imodium CAP*] 2 mg PO Q4H PRN #20 cap 12/10/18 06/17/19 Rx Al Hydrox/Mg Hydrox/Simet LIQ* 30 ml PO Q4H PRN 12/14/18 06/17/19 History [Maalox Plus*] Albuterol HFA INHALER* [Ventolin 2 puff INH Q4HR PRN 12/14/18 06/17/19 History HFA Inhaler*] Fluticasone Furoate ELLIPTA(NF 1 puff INH QAM 12/14/18 06/17/19 History [Arnuity ELLIPTA (NF)] Levothyroxine TAB* [Synthroid 100 400 mcg PO LOPEZ 12/14/18 06/17/19 History MCG TAB*] Nicotine GUM* 2MG FRUIT FLAVOR 2 mg PO Q2H PRN 12/14/18 06/17/19 History [Nicotine GUM*] OLANzapine TAB* [Zyprexa 10 MG 10 mg PO BEDTIME 12/14/18 06/17/19 History TAB*] OLANzapine TAB* [Zyprexa 5 MG TAB*] 5 mg PO QAM 12/14/18 06/17/19 History Fluticasone NASAL SPRAY 50MCG* 2 spray BOTH NARES BID 01/02/19 06/17/19 History [Flonase NASAL SPRAY 50MCG*] Levothyroxine TAB* [Synthroid 100 200 mcg PO MOTUWETHFRSA 01/02/19 06/17/19 History MCG TAB*] Nicotine PATCH 21 MG/24 HR* 1 patch TRANSDERM QAM 01/02/19 06/17/19 History lamoTRIgine TAB(*) [Lamictal 100 mg PO BID 01/02/19 06/17/19 History TAB(*)] Cyclobenzaprine TAB* [Flexeril 10 10 mg PO BID PRN 01/17/19 06/17/19 History MG TAB*] DULoxetine DR HUMPHRIES* [Cymbalta CAP*] 30 mg PO QAM 01/17/19 06/17/19 History Guaifenesin/Dextromethorphan 1 tab PO TID 01/17/19 06/17/19 History [Mucinex Dm ER 600-30 mg Tablet] Hyoscyamine TAB* [Anaspaz 0.125 MG 0.125 mg PO TID PRN #21 tab 02/03/19 Rx TAB*] DULoxetine DR HUMPHRIES* [Cymbalta CAP*] 20 mg PO QAM 05/16/19 06/17/[address] HUMPHRIES* [Cymbalta CAP*] 60 mg PO QAM 05/16/19 06/17/19 History Omeprazole (Nf) [Prilosec (NF)] 40 mg PO QAM 05/16/19 06/17/19 History Insulin ASPART (NF) [Novolog (NF)] 26 unit SUBCUT TID AC 05/21/19 06/17/19 History hydrOXYzine HCL TAB* [Atarax 25 MG 25 mg PO TID PRN 05/21/19 06/17/19 History TAB*] Lidocaine PATCH 5%* [Lidoderm 5% 1 patch TRANSDERM DAILY #1 patch 06/04/1906/17 Rx Patch*] Benzocaine [Anbesol] 1 applic .ROUTE TID PRN MDD APPLY 06/07/19 06/17/19 History TO GINGIVA Phenazopyridine TAB* [Pyridium 100 100 mg PO BID PRN 06/07/19 06/17/19 History mg TAB*] Polyethylene Glycol 3350* 17 gm PO DAILY PRN 06/07/19 06/17/19 History [Miralax*] oxyCODONE/Acetamin 5/325 MG* 1 tab PO Q4H PRN #12 tab MDD 4 06/13/19 06/17/19 Rx [Percocet 5/325 TAB*] Negative: Fever, Chills Negative: Chest Pain Negative: Shortness Of Breath Negative: Vomiting, Nausea Negative: Headache Psychological: Other - States SI with thoughts and plans Positive: Depressed, Other - NEGATIVE: HI All Other Systems Reviewed And Are Negative: Yes Physical Exam - Summary Physical Exam Summary: General: Well-developed, Well-nourished female. No acute distress. HEENT: Normocephalic, Atraumatic. Eyes: Conjuctiva normal, PERRL. Ears: TMs within normal limits. Nares: (-) discharge, (-) erythema. Oropharynx: Clear, mucous membranes moist, (-) exudates. Neck: Soft, FROM, (-) lymphadenopathy, (-) thyromegaly, (-) JVD. Cardiovascular: Normal sinus rhythm, (-) murmur. Lungs: Clear to auscultation bilaterally (-) wheezes, (-) rales, (-) rhonchi. Abdomen: Soft, non-tender, non-distended, (-) organomegaly, normal bowel sounds. Back: (-) CVA tenderness Extremities: No edema. Skin: Warm, dry, (-) rash. Neuro: Alert and oriented x3, no focal deficits. Psychiatric: Mood normal, affect normal. Triage Information Reviewed: Yes Vital Signs On Initial Exam: Initial Vitals Temp Pulse Resp BP Pulse Ox 99.3 F 93 18 194/118 98 06/18/19 01:23 06/18/19 01:23 06/18/19 01:23 06/18/19 01:23 06/18/19 01:23 Vital Signs Reviewed: Yes Procedures - Sedation Patient Received Moderate/Deep Sedation with Procedure: No Diagnostics - Vital Signs Vital Signs Temp Pulse Resp BP Pulse Ox 06/18/19 01:23 99.3 F 93 18 194/118 98 - Laboratory Lab Results: Lab Results 06/18/19 06/18/19 Range/Units 02:00 02:00 WBC 9.6 (3.5-10.8) 10^3/uL RBC 4.24 (3.70-4.87) 10^6 /uL Hgb 12.3 (12.0-16.0) g/dL Hct 38 (35-47) % MCV 89 (80-97) fL MCH 29 (27-31) pg MCHC 33 (31-36) g/dL RDW 16 H (10-15) % Plt Count 191 (150-450) 10^3/uL MPV 8.7 (7.4-10.4) fL Neut % (Auto) 63.1 % Lymph % (Auto) 30.6 % [place] % (Auto) 4.7 % Eos % (Auto) 1.0 % Baso % (Auto) 0.6 % Absolute Neuts (auto) 6.1 (1.5-7.7) 10^3/ul Absolute Lymphs (auto) 2.9 (1.0-4.8) 10^3/ul Absolute Monos (auto) 0.5 (0-0.8) 10^3/ul Absolute Eos (auto) 0.1 (0-0.6) 10^3/ul Absolute Basos (auto) 0.1 (0-0.2) 10^3/ul Absolute Nucleated RBC 0.0 10^3/ul Nucleated RBC % 0.2 Sodium 138 (135-145) mmol/L Potassium 4.3 (3.5-5.0) mmol/L Chloride 104 (101-111) mmol/L Carbon Dioxide 27 (22-32) mmol/L Anion Gap 7 (2-11) mmol/L BUN 12 (6-24) mg/dL Creatinine 0.90 (0.51-0.95) mg/dL Est GFR ( Amer) 79.6 (>60) Est GFR (Non-Af Amer) 65.8 (>60) BUN/Creatinine Ratio 13.3 (8-20) Glucose 189 H (70-100) mg/dL Calcium 9.1 (8.6-10.3) mg/dL Total Bilirubin 0.30 (0.2-1.0) mg/dL AST 43 H (13-39) U/L ALT 51 (7-52) U/L Alkaline Phosphatase 137 H (34-104) U/L Total Protein 6.6 (6.4-8.9) g/dL Albumin 3.6 (3.2-5.2) g/dL Globulin 3.0 (2-4) g/dL Albumin/Globulin Ratio 1.2 (1-3) TSH 0.43 (0.34-5.60) mcIU/mL Salicylates < 2.50 (<30) mg/dL Acetaminophen < 15 mcg/mL Serum Alcohol < 10 (<10) mg/dL Result Diagrams: 06/18/19 02:00 06/18/19 02:00 Lab Statement: Any lab studies that have been ordered have been reviewed, and results considered in the medical decision making process. Course/Dx - Course Course Of Treatment: This pt is a sign out to Dr. Al from Dr. Sesay at shift change 0700 06/18/19 pending a MHE and disposition. - Differential Dx/Clinical Impression Provider Diagnosis: Borderline personality disorder Discharge ED - Sign-Out/Discharge Documenting (check all that apply): Sign-Out Patient Signing out patient TO: Maycol Al - Discharge Plan Condition: Stable Disposition: HOME Referrals: Rosa Schroeder MD [Primary Care Provider] - Additional Instructions: Patient states,"I've been doing really well, but [facility]'s kicking me out, and I've got a hernia, which is giving me a lot of soreness and pain." Pt relates she has a hearing to debate whether or not she can stay at [facility]. She relates that because of her history of self harm that [facility] is trying to evict her. Pt relates that she recently that she just had hernia surgery last Tuesday, "and it's really been painful...I have a lot on my plate, and it feels like my body is trying to say goodbye." Pt relates that this evening "I lost it and tried to scratch my surgery scar." She states that [facility] staff "blew me off, and so I called the police...I just feel so stressed out, the alatorre are caving down, and sometimes I feel like I'm in a box." [facility] Ref[facility] You have been referred to [facility]. It is our recommendation that you call [facility] to secure an appointment on their next business day. Adults can schedule their first appointment by phone or in person during walk-in hours. Walk-in hours occur Tuesday 09:00 am until 3:30pm and Tuesday 10:00 am t0 2:30 pm. If you require further assistance connecting to outpatient providers, please contact our Mental Health Unit at . DISCHARGE NOTE: PER COMPLETION OF A MENTAL HEALTH EVALUATION, THE PATIENT IS IN BEHAVIORAL CONTROL, FREE OF SUICIDAL OR HOMICIDAL IDEATION, CONTRACTS FOR SAFETY, IS FUTURE ORIENTED AND EXPRESSING THE DESIRE FOR HELP WITH FOLLOW UP OUTPATIENT THERAPY. PATIENT DOES NOT MEET CRITERIA FOR INPATIENT ADMISSION AT THIS TIME. AT THIS TIME THE PATIENT IS IN BEHAVIORAL CONTROL, FREE OF SUICIDAL OR HOMICIDAL IDEATION, CONTRACTS FOR SAFETY, IS FUTURE ORIENTED AND EXPRESSING THE DESIRE FOR HELP WITH..(THERAPY, ETC) IMPORTANT PHONE NUMBERS: [facility] Behavioral Services Unit: [facility] Emergency Room Behavioral Pod: Suicide Prevention and Crisis Services: The Chat: Text (free and confidential online crisis service sponsored by [facility] Suicide Prevention, available Tuesday-Tuesday 6pm 9pm) National Suicide Prevention Lifeline: (200) 449-NYVQ (6481) National Crisis Text Line: Text MJMARIANGEL to 927185 [facility]: [facility] Outreach for Older Adults: [facility] Mental Health Association: [facility]: [facility] Police: [facility] Sheriff: [place] Police Department: Alcoholics Anonymous: Narcotics Anonymous: Alcohol and Drug [place] [facility]: [facility] [facility] ([facility]) Outpatient Services: [facility] Recovery: [phone] [phone] Alcohol & Drug Crisis: FLACRA Rakan Kitchen: Department of Coating And Baking Operator: [place] [employer] [place]: [place] Community Action: [place] Housing Authority: [facility]: [facility] Housing Services: [facility] Independent Center: [facility] Celebration ACT Team: Judaism Charities: [facility]: [employer]aves [employer] Fishes (free daily meals): [place] [employer] Food Pantry: Advocacy Center: or [facility] Youth Advocacy Center (YAP): [facility] Activities Center (GIAC): Open Doors: [place] Youth [place]: - Billing Disposition and Condition Condition: STABLE Disposition: Home - Attestation Statements Document Initiated by Noam: Yes Documenting Scribe: Sal Velarde Provider For Whom Scribe is Documenting (Include Credential): Aliza Sesay MD Scribe Attestation: ISal, scribed for Aliza Sesay MD on 06/18/19 at 1935. Scribe Documentation Reviewed: Yes Provider Attestation: The documentation as recorded by the Sal roth accurately reflects the service I personally performed and the decisions made by me, Aliza Sesay MD Status of Scribe Document: Viewed
[2019-06-18] MEDS ORDERED: Ibuprofen TAB* 400 MG PO ONE (04:47)
--- NOTE | 2019-06-18 07:23 | ED ---
Progress - Progress Note Progress Note: Patient is a sign-out out at 07:00 on 06/18/[address] Aliza Sesay MD to Dr. Maycol Al MD at shift change, pending evaluation and disposition. At 11:06, MH broadcast field supervisor reports that the patient's case was reviewed by Dr. Raheem Cunningham who will discharge the patient with a diagnosis of borderline personality disorder. - Consult/PCP Time Called: 03:18 Course/Dx - Course Course Of Treatment: Patient was signed out by Dr. Sesay at shift change. She reports that the patient is awaiting a mental health evaluation. The patient was medically cleared with Dr. Sesay. Dr. Cunningham assessed the patient and he recommends for the patient to be discharged home with a follow up with her primary care physician. Diagnosis is borderline personality disorder. The patient is alert and oriented 3. - Diagnoses Provider Diagnoses: Borderline personality disorder - Provider Notifications Discussed Care Of Patient With: Raheem Cunningham - At 11:06, broadcast field supervisor reports that the patient's case was reviewed by Dr. Raheem Cunningham who will discharge the patient with a diagnosis of borderline personality disorder. Time Discussed With Above Provider: 11:06 Instructed by Provider To: Other - Home Discharge ED - Sign-Out/Discharge Documenting (check all that apply): Patient Departure - Discharge, Receiving Sign-Out Receiving patient FROM: Aliza Sesay - Patient is a sign-out out at 07:[address] Aliza Sesay MD to Dr. Maycol Al MD at shift change, pending evaluation and disposition. - Discharge Plan Condition: Stable Disposition: HOME Referrals: Rosa Schroeder MD [Primary Care Provider] - Additional Instructions: Patient states,"I've been doing really well, but [facility]'s kicking me out, and I've got a hernia, which is giving me a lot of soreness and pain." Pt relates she has a hearing to debate whether or not she can stay at [facility]. She relates that because of her history of self harm that [facility] is trying to evict her. Pt relates that she recently that she just had hernia surgery last Tuesday, "and it's really been painful...I have a lot on my plate, and it feels like my body is trying to say goodbye." Pt relates that this evening "I lost it and tried to scratch my surgery scar." She states that [facility] staff "blew me off, and so I called the police...I just feel so stressed out, the alatorre are caving down, and sometimes I feel like I'm in a box." [facility] You have been referred to [facility]. It is our recommendation that you call [facility] to secure an appointment on their next business day. Adults can schedule their first appointment by phone or in person during walk-in hours. Walk-in hours occur Tuesday 09:00 am until 3:30pm and Tuesday 10:00 am t0 2:30 pm. If you require further assistance connecting to outpatient providers, please contact our Mental Health Unit at . DISCHARGE NOTE: PER COMPLETION OF A MENTAL HEALTH EVALUATION, THE PATIENT IS IN BEHAVIORAL CONTROL, FREE OF SUICIDAL OR HOMICIDAL IDEATION, CONTRACTS FOR SAFETY, IS FUTURE ORIENTED AND EXPRESSING THE DESIRE FOR HELP WITH FOLLOW UP OUTPATIENT THERAPY. PATIENT DOES NOT MEET CRITERIA FOR INPATIENT ADMISSION AT THIS TIME. AT THIS TIME THE PATIENT IS IN BEHAVIORAL CONTROL, FREE OF SUICIDAL OR HOMICIDAL IDEATION, CONTRACTS FOR SAFETY, IS FUTURE ORIENTED AND EXPRESSING THE DESIRE FOR HELP WITH..(THERAPY, ETC) IMPORTANT PHONE NUMBERS: [facility] Behavioral Services Unit: [facility] Emergency Room Behavioral Pod: Suicide Prevention and Crisis Services: The Chat: Text (free and confidential online crisis service sponsored by [facility] Suicide Prevention, available Tuesday-Tuesday 6pm 9pm) National Suicide Prevention Lifeline: (677) 557-GIPQ (2393) National Crisis Text Line: Text [place] to 644303 [facility]: [facility] Outreach for Older Adults: [facility] Mental Health Association: [facility]: [facility] Police: [facility] Sheriff: [place] Police Department: Alcoholics Anonymous: Narcotics Anonymous: Alcohol and Drug [facility]: [place] [facility] ([facility]) Outpatient Services: [place] [facility]: [phone] Alcohol & Drug Crisis: FLACRA of Radha Kitchen: Department [employer] Art Model: [place] [facility] [place]: [facility] Action: [place] Housing Authority: [facility] Services: [facility] Housing Services: [facility] Independent Center: [facility] ACT Team: [facility] Charities: Food Bank [facility]: [employer] Fishes (free daily meals): [facility] Action Food Pantry: Advocacy Center: or [facility] Youth Advocacy Center (YAP): [place] [facility] (GIAC): Open Doors: [place] [facility] [place]: - Billing Disposition and Condition Condition: STABLE Disposition: Home - Attestation Statements Document Initiated by Scribe: Yes Documenting Scribe: Albina Fuchs Provider For Whom Scribe is Documenting (Include Credential): Maycol Al MD Scribe Attestation: Albina Rosales, scribed for Maycol Al MD on 06/18/19 at 8013. Scribe Documentation Reviewed: Yes Provider Attestation: The documentation as recorded by the remigioibAlbina iqbal accurately reflects the service I personally performed and the decisions made by me, Maycol Al MD Status of Scribe Document: Viewed
[2019-06-18 09:16] LABS: Urine Appearance Clear; Urine Blood Negative (Negative); Urine Color Straw; Urine Ketones Negative (Negative); Urine Nitrite Negative (Negative); Urine Protein Negative (Negative); Urine Specific Gravity 1.005 (1.010-1.030); Urine Urobilinogen Negative (Negative)
[2019-06-18 09:17] LABS: Urine Bilirubin Negative (Negative); Urine Glucose Negative (Negative)
[2019-06-18 09:24] LABS: Urine Bacteria 3+ (Absent); Urine Red Blood Cell 1+(3-5/hpf) (Absent); Urine White Blood Cell 1+(6-10/hpf) (Absent)
[2019-06-18 11:08] VITALS: BP 159/85
== END 2019-06-19 09:35 | disposition home or self-care (01) ==
LOC: ED 01:19
DX: F60.3 Borderline personality disorder (principal); F41.9 Anxiety disorder, unspecified; Z98.890 Other specified postprocedural states; E11.9 Type 2 diabetes mellitus without complications; Z79.4 Long term (current) use of insulin; E05.90 Thyrotoxicosis, unspecified without thyrotoxic crisis or storm; I10 Essential (primary) hypertension; J45.909 Unspecified asthma, uncomplicated; K21.9 Gastro-esophageal reflux disease without esophagitis; F32.9 Major depressive disorder, single episode, unspecified; Z88.5 Allergy status to narcotic agent; Z88.0 Allergy status to penicillin; Z88.2 Allergy status to sulfonamides; Z88.8 Allergy status to other drugs, medicaments and biological substances; Z88.1 Allergy status to other antibiotic agents; Z91.040 Latex allergy status; Z87.891 Personal history of nicotine dependence
CPT/HCPCS: 36415; 80053; 80307; 80320; 80329; 81003; 81015; 84443; 85025; 87086; 99283; 99285; A9270-GY; G0480

== ENCOUNTER 2019-06-18 22:29 | Emergency (ER) | payer MEDICARE, MEDICAID ==
--- NOTE | 2019-06-18 22:59 | ED ---
Psychiatric Complaint - HPI Summary HPI Summary: This patient is a 53 year old F presenting to [facility] accompanied by her mother with a chief complaint of SI since yesterday. Pt was discharged yesterday for SI but states it is worsening now. She did not try to hurt herself. The patient rates the pain 0/10 in severity. Symptoms aggravated by nothing. Symptoms alleviated by nothing. - History Of Current Complaint Chief Complaint: EDSuicidal Time Seen by Provider: 06/18/19 22:31 Hx Obtained From: Patient Hx Last Menstrual Period: 1.5 years ?: No Onset/Duration: Sudden Onset, Lasting Days - 1, Worse Since - yesterday Timing: Days - 1 Severity Initially: Mild Severity Currently: Moderate Aggravating Factor(s): Nothing Alleviating Factor(s): Nothing Has Suicidal: Reports: Thoughts - Allergies/Home Medications Allergies/Adverse Reactions: Allergies Allergy/AdvReac Type Severity Reaction Status Date / Time lurasidone [From Latuda] Allergy Severe Altered Verified 06/18/19 22:44 Mental Status ciprofloxacin Allergy Intermediate Dizziness Verified 06/18/19 22:44 latex Allergy Mild Rash Verified 06/18/19 22:44 lithium Allergy Mild See Comment Verified 06/18/19 22:44 metformin Allergy Unknown Verified 06/18/19 22:44 Reaction Details nalbuphine Allergy Unknown Verified 06/18/19 22:44 Reaction Details naldemedine Allergy Unknown Verified 06/18/19 22:44 Reaction Details nitrofurantoin Allergy See Comment Verified 06/18/19 22:44 [From Macrobid] Penicillins Allergy Rash Verified 06/18/19 22:44 perphenazine Allergy Unknown Verified 06/18/19 22:44 Reaction Details Sulfa (Sulfonamide Allergy Hives Verified 06/18/19 22:44 Antibiotics) tramadol Allergy Altered Verified 06/18/19 22:44 Mental Status ENVIRONMENTAL Allergy Mild SINUS Uncoded 06/18/19 22:44 PMH/Surg Hx/FS Hx/Imm Hx Previously Healthy: No Endocrine/Hematology History: Reports: Hx Diabetes - TYPE 2-INSULIN DEPENDENT, Hx Thyroid Disease - HX OF THYROTOXICOSIS, Other Endocrine/Hematological Disorders - Chronic pancreatitis Denies: Hx Anticoagulant Therapy Cardiovascular History: Reports: Hx Hypertension - ON MEDICATION FOR, Other Cardiovascular Problems/Disorders - HX OF PSVT 04/2008 Denies: Hx Hypercholesterolemia, Hx Pacemaker/ICD Respiratory History: Reports: Hx Asthma - RESCUE INHALER, Hx Seasonal Allergies , Hx Sleep Apnea - HX OF IN THE PAST-AWAITING A SLEEP STUDY Denies: Hx Chronic Bronchitis, Hx Chronic Obstructive Pulmonary Disease (COPD ), Hx Cystic Fibrosis, Hx Lung Cancer, Hx Pleural Effusion, Hx Pneumonia, Hx Pulmonary Edema, Hx Pulmonary Embolism, Other Respiratory Problems/Disorders GI History: Reports: Hx Gall Bladder Disease, Hx Gastroesophageal Reflux Disease - ON MEDICATION FOR, Hx Gastrointestinal Bleed, Hx Irritable Bowel, Other GI Disorders - HX OF pancreatitis- IN THE PAST// HX OF CONSTIPATION/ DIARRHEA Denies: Hx Ulcer History: Denies: Hx Dialysis, Hx Renal Disease, Other Problems/Disorders Musculoskeletal History: Reports: Hx Arthritis - LOWER BACK, Hx Back Problems, Hx Tendonitis - LEFT WRIST Denies: Hx Rheumatoid Arthritis, Hx Bursitis, Hx Congenital Bone Abnormalities, Hx Fibromyalgia, Hx Gout, Hx Orthopedic Injury, Hx Osteoporosis, Hx Scoliosis, Other Musculoskeletal History Sensory History: Reports: Hx Cataracts, Hx Contacts or Glasses - READING GLASSES , Hx Vision Problem Denies: Hx Eye Injury, Hx Eye Prosthesis, Hx Glaucoma, Hx Macular Degeneration, Hx Hearing Aid, Other Sensory Impairments Opthamlomology History: Reports: Hx Cataracts, Hx Contacts or Glasses - READING GLASSES, Hx Vision Problem Denies: Hx Eye Injury, Hx Eye Prosthesis, Hx Glaucoma, Hx Macular Degeneration, Other Sensory Impairments Neurological History: Reports: Hx Developmental Delay - intellectual disability , Hx Seizures - STATES WITH ALLERGIC REACTION TO TRAMADOL-A COUPLE OF YEARS AGO Denies: Hx Dementia, Hx Headaches, Other Neuro Impairments/Disorders - BIPOLAR/SCHIZOAFFECTIVE DISORDER/PTSD/BORDERLINE PERSONALITY DISORDER Psychiatric History: Reports: Hx Anxiety - ON MEDICATION FOR, Hx Depression - ON MEDICATION FOR, Hx Panic Disorder - TAKES DAILY, Hx Post Traumatic Stress Disorder, Hx Inpatient Treatment, Hx Community Mental Health Tx, Hx Bipolar Disorder - pt manic, Hx Suicide Attempt, Hx of Violent Episodes Against Others, Other Psychiatric Issues/Disorders - PSYCHOSIS NOS, HX OF PTSD, SCHIZOAFFECTIVE DISORDER, BORDERLINE PERSONALITY Denies: Hx Attention Deficit Hyperactivity Disorder, Hx Eating Disorder, Hx Schizophrenia, Hx Substance Abuse - Cancer History Cancer Type, Location and Year: None reported - Surgical History Surgical History: Yes Surgery Procedure, Year, and Place: 2012-CATARACT EXTRACTION;. GALLBLADDER REMOVED ;. HERNIA REPAIR 2019 Hx Anesthesia Reactions: No - Immunization History Date of Tetanus Vaccine: unk Date of Influenza Vaccine: fall 2017 Infectious Disease History: No Infectious Disease History: Denies: Hx Clostridium Difficile, Hx Hepatitis, Hx Human Immunodeficiency Virus (HIV), Hx of Known/Suspected MRSA, Hx Shingles, Hx Tuberculosis, Hx Known/ Suspected VRE, Hx Known/Suspected VRSA, History Other Infectious Disease, Traveled Outside the [place] in Last 30 Days - Family History Known Family History: Positive: Other - Anxiety and depression, [place] - father Negative: Cardiac Disease, Hypertension, Diabetes Family History: Depression and anxiety - Social History Alcohol Use: None Hx Substance Use: No Substance Use Type: Reports: None Hx Tobacco Use: Yes Smoking Status (MU): Former Smoker Type: Cigarettes Amount Used/How Often: UP TO 1PPD OFF AND ON X 35 YEARS Length of Time of Smoking/Using Tobacco: since she was "young" Have You Smoked in the Last Year: Yes Review of Systems Negative: Fever Psychological: Other - positive - SI All Other Systems Reviewed And Are Negative: Yes Physical Exam - Summary Physical Exam Summary: General: Well-developed, Well-nourished obese FEMALE. No acute distress. HEENT: Normocephalic, Atraumatic. Eyes: Conjuctiva normal, PERRL. Ears: TMs within normal limits. Nares: (-) discharge, (-) erythema. Oropharynx: Clear, mucous membranes moist, (-) exudates. Neck: Soft, FROM, (-) lymphadenopathy, (-) thyromegaly, (-) JVD. Cardiovascular: Normal sinus rhythm, (-) murmur. Lungs: Clear to auscultation bilaterally (-) wheezes, (-) rales, (-) rhonchi. Abdomen: Soft, non-tender, non-distended, (-) organomegaly, normal bowel sounds. Back: (-) CVA tenderness Extremities: No edema. Skin: Warm, dry, (-) rash. Neuro: Alert and oriented x3, no focal deficits. Psychiatric: Mood normal, affect flat Triage Information Reviewed: Yes Vital Signs On Initial Exam: Initial Vitals Temp Pulse Resp BP Pulse Ox 99 F 94 15 165/99 97 06/18/19 22:42 06/18/19 22:42 06/18/19 22:42 06/18/19 22:42 06/18/19 22:42 Vital Signs Reviewed: Yes Procedures - Sedation Patient Received Moderate/Deep Sedation with Procedure: No Diagnostics - Vital Signs Vital Signs Temp Pulse Resp BP Pulse Ox 06/18/19 22:42 99 F 94 15 165/99 97 - Laboratory Result Diagrams: 06/19/19 01:04 06/19/19 01:04 Lab Statement: Any lab studies that have been ordered have been reviewed, and results considered in the medical decision making process. Course/Dx - Course Course Of Treatment: 53-year-old female with limited decision making capabilities. [facility]. Apparently she had thoughts about hurting herself and called her mother. Patient presents for the second time in 2 days for mental health evaluation. Workup essentially negative. Patient cleared medically. Mental health evaluation was done and patient placed on hold until the psychiatrist could see her later today. Patient signed out at change of shift - Differential Dx/Clinical Impression Provider Diagnosis: Suicidal ideation Discharge ED - Sign-Out/Discharge Documenting (check all that apply): Sign-Out Patient Signing out patient TO: Sergio Menjivar - This pt will be signed out from Dr. Sesay to Dr. Menjivar at 0700 06/19/19 shift change pending MHE. - Discharge Plan Referrals: Rosa Schroeder MD [Primary Care Provider] - - Attestation Statements Document Initiated by Scribe: Yes Documenting Scribe: Vipul Pacheco Provider For Whom Scribe is Documenting (Include Credential): Dr. Aliza Sesay MD Scribe Attestation: Vipul Rosales, scribed for Dr. Aliza Sesay MD on 06/19/19 at 0524. Status of Scribe Document: Ready
[2019-06-19] MEDS ORDERED: Ibuprofen TAB* 400 MG PO ONE (00:21)
[2019-06-19 00:29] LABS: Urine Benzodiazepine Screen None Detected (None Detect); Urine Opiates Screen None Detected (None Detect)
[2019-06-19 00:34] LABS: Urine Appearance Cloudy; Urine Bilirubin Negative (Negative); Urine Blood Negative (Negative); Urine Color Straw; Urine Glucose 1+(50 mg/dL) (Negative); Urine Ketones Negative (Negative); Urine Nitrite Negative (Negative); Urine Protein Negative (Negative); Urine Specific Gravity 1.008 (1.010-1.030); Urine Urobilinogen Negative (Negative)
[2019-06-19 00:38] LABS: Urine Bacteria 1+ (Absent); Urine Red Blood Cell Absent (Absent); Urine White Blood Cell Trace(0-5/hpf) (Absent)
[2019-06-19 01:16] LABS: ABS Basophils 0.1 10^3/ul (0-0.2); ABS Eosinophils 0.1 10^3/ul (0-0.6); ABS Lymphocytes 3.2 10^3/ul (1.0-4.8); ABS Monocytes 0.4 10^3/ul (0-0.8); ABS Neutrophils 6.1 10^3/ul (1.5-7.7); Hematocrit 38 % (35-47); Hemoglobin 12.8 g/dL (12.0-16.0); Lymphocyte % 32.2 %; Mean Corpuscular HGB Conc 34 g/dL (31-36); Mean Corpuscular Hemoglobin 30 pg (27-31); Mean Corpuscular Volume 89 fL (80-97); Nucleated Red Blood Cells % 0.1; Platelet Count 191 10^3/uL (150-450); Red Blood Count 4.31 10^6 /uL (3.70-4.87); Red Cell Distribution Width 16 % (10-15); White Blood Count 9.9 10^3/uL (3.5-10.8)
[2019-06-19 01:32] LABS: ALT 41 U/L (7-52); AST 31 U/L (13-39); Acetaminophen < 15 mcg/mL; Albumin 3.8 g/dL (3.2-5.2); Albumin/Globulin Ratio 1.2 (1-3); Alcohol < 10 mg/dL (<10); Alkaline Phosphatase 143 U/L (34-104); Anion Gap 6 mmol/L (2-11); BUN/Creatinine Ratio 16.9 (8-20); Blood Urea Nitrogen 15 mg/dL (6-24); CO2 Carbon Dioxide 29 mmol/L (22-32); Calcium 9.4 mg/dL (8.6-10.3); Chloride 103 mmol/L (101-111); EGFR African American 80.6 (>60); EGFR Non-African American 66.6 (>60); Globulin 3.1 g/dL (2-4); Glucose 195 mg/dL (70-100); Potassium 4.6 mmol/L (3.5-5.0); Salicylate < 2.50 mg/dL (<30); Sodium 138 mmol/L (135-145); Total Protein 6.9 g/dL (6.4-8.9)
[2019-06-19 01:48] LABS: TSH (Thyroid Stimulating Horm) 0.66 mcIU/mL (0.34-5.60)
--- NOTE | 2019-06-19 07:02 | ED ---
Progress - Progress Note Progress Note: This patient is a 53 y/o female presenting to [facility] with CC of SI. Patient is a sign-out from Dr. Aliza Sesay to Dr. Sergio Menjivar at 0700 on 06/19/19 at shift change pending MHE. Medications reviewed. Allergies noted. Course/Dx - Course Course Of Treatment: This patient is a 53 y/o female presenting to [facility] with CC of SI. Patient is a sign-out from Dr. Aliza Sesay to Dr. Sergio Menjivar at 0700 at shift change pending MHE. Patient evaluated and will be discharged by Dr. Cunningham with dx of depressive disorder. - Diagnoses Provider Diagnoses: Depressive disorder Discharge ED - Sign-Out/Discharge Documenting (check all that apply): Patient Departure - Discharge, Receiving Sign-Out Receiving patient FROM: Aliza Sesay - Discharge Plan Condition: Stable Disposition: HOME Referrals: Rosa Schroeder MD [Primary Care Provider] - Additional Instructions: Pt comes in BIB police after making suicidal statements. This is her 3rd visit to the ER on within 24 hours. D/C'd other times. Reports that she is currently suicidal with plans to open up her surgery site and bleed to . Mother advocates for admission; States " I know this is behavioral but she does have an underlying mental health condition that I feel is not being addressed and she now has increased stressors". Pt is being evicted from her apartment at [place] and has been turned down for placement at several nursing homes. Patient is not suicidal at this time. Patient will return to [place], and follow up with [facility] Important Phone Numbers: [facility] Behavioral Services Unit~~ ph:[phone] Suicide Prevention and Crisis Services~~~~~~~~~~~~~~~~~~~~~~~ ph:[phone] National Suicide Prevention Lifeline~~~~~~~~~~~~~~~~~~~~~~~~~ ph:138-282-YRUQ ( 0898) [facility]~~~~~~~~~~~~~~~~~~~~~~~ ph:[phone] [place] [facility] ([facility])~~~~~~~~~~~~~~~~~~ ph:[phone] Alcohol and Drug Net Software Developer (ADC)~~~~~~~~~~~~~~~~~~~~~~~~~~ ph:[phone] Family and Children's Services~~~~~~~~~~~~~~~~~~~~~~~~~~~~~ ph:[phone] Alcoholics Anonymous~~~~~~~~~~~~~~~~~~~~~~~~~~~~~~~~~~ ph:[phone] [facility]~~~~~~~~~~~~~~~~~~~ ph:[phone] [facility] Police~~~~~~~~~~~~~~~~~~~~~~~~~~~~~~~~~ ph:[phone] [facility] Police ph:[phone] - Billing Disposition and Condition Condition: STABLE Disposition: Home - Attestation Statements Document Initiated by Albertoibe: Yes Documenting Scribe: Gabo Shields Provider For Whom Noam is Documenting (Include Credential): Sergio Menjivar MD Scribe Attestation: Gabo Rosales, scribed for Sergio Menjivar MD on 06/19/19 at 1822. Scribe Documentation Reviewed: Yes Provider Attestation: The documentation as recorded by the scribeGabo accurately reflects the service I personally performed and the decisions made by nh, Sergio Menjivar MD Status of Scribe Document: Viewed
--- NOTE | 2019-06-19 07:42 | PN ---
ED Psychiatric Progress Note Date of Service: 06/18/19 Subjective: This is a 53 year-old F who is pending admission to [facility] Mental Health Unit / transfer to another psychiatric facility / discharge to home / or being observed secondary to SI, depression. Pt. examined in room 22 around 0730. She is sleeping comfortably. Objective: Vitals: Most recent vital signs documented below. General NAD Laboratory: Current laboratory results documented below. Assessment: Depression. Plan: Pending MHE. Pt. with numerous home medications. registered vascular technologist (rvt) coming in at 0800 and will assess home medications. Vital Signs Temp Pulse Resp BP Pulse Ox 99 F 94 15 165/99 97 06/18/19 22:42 06/18/19 22:42 06/18/19 22:42 06/18/19 22:42 06/18/19 22:42 Lab Results - Entire Visit 06/19/19 06/19/19 06/18/19 01:04 01:04 23:20 WBC 9.9 RBC 4.31 Hgb 12.8 Hct 38 MCV 89 MCH 30 MCHC 34 RDW 16 H Plt Count 191 MPV 9.0 Neut % (Auto) 61.6 Lymph % (Auto) 32.2 [place] % (Auto) 4.1 Eos % (Auto) 1.0 Baso % (Auto) 1.1 Absolute Neuts (auto) 6.1 Absolute Lymphs (auto) 3.2 Absolute Monos (auto) 0.4 Absolute Eos (auto) 0.1 Absolute Basos (auto) 0.1 Absolute Nucleated RBC 0.0 Nucleated RBC % 0.1 Sodium 138 Potassium 4.6 Chloride 103 Carbon Dioxide 29 Anion Gap 6 BUN 15 Creatinine 0.89 Est GFR ( Amer) 80.6 Est GFR (Non-Af Amer) 66.6 BUN/Creatinine Ratio 16.9 Glucose 195 H Calcium 9.4 Total Bilirubin 0.30 AST 31 ALT 41 Alkaline Phosphatase 143 H Total Protein 6.9 Albumin 3.8 Globulin 3.1 Albumin/Globulin Ratio 1.2 TSH 0.66 Urine Color Urine Appearance Urine pH Ur Specific [place] Urine Protein Urine Ketones Urine Blood Urine Nitrate Urine Bilirubin Urine Urobilinogen Ur Leukocyte Esterase Urine WBC (Auto) Urine RBC (Auto) Urine Bacteria Urine Glucose Salicylates < 2.50 Urine Opiates Screen None detected Acetaminophen < 15 Ur Barbiturates Screen None detected Ur Phencyclidine Scrn None detected Ur Amphetamines Screen None detected U Benzodiazepines Scrn None detected Urine Cocaine Screen None detected U Cannabinoids Screen None detected Serum Alcohol < 10 06/18/19 23:20 WBC RBC Hgb Hct MCV MCH MCHC RDW Plt Count MPV Neut % (Auto) Lymph % (Auto) [place] % (Auto) Eos % (Auto) Baso % (Auto) Absolute Neuts (auto) Absolute Lymphs (auto) Absolute Monos (auto) Absolute Eos (auto) Absolute Basos (auto) Absolute Nucleated RBC Nucleated RBC % Sodium Potassium Chloride Carbon Dioxide Anion Gap BUN Creatinine Est GFR ( Amer) Est GFR (Non-Af Amer) BUN/Creatinine Ratio Glucose Calcium Total Bilirubin AST ALT Alkaline Phosphatase Total Protein Albumin Globulin Albumin/Globulin Ratio TSH Urine Color Straw Urine Appearance Cloudy Urine pH 7.0 Ur Specific [place] 1.008 L Urine Protein Negative Urine Ketones Negative Urine Blood Negative Urine Nitrate Negative Urine Bilirubin Negative Urine Urobilinogen Negative Ur Leukocyte Esterase 1+ A Urine WBC (Auto) Trace(0-5/hpf) Urine RBC (Auto) Absent Urine Bacteria 1+ A Urine Glucose 1+(50 mg/dl) A Salicylates Urine Opiates Screen Acetaminophen Ur Barbiturates Screen Ur Phencyclidine Scrn Ur Amphetamines Screen U Benzodiazepines Scrn Urine Cocaine Screen U Cannabinoids Screen Serum Alcohol
[2019-06-19 09:57] VITALS: BP 145/75
== END 2019-06-19 09:45 | disposition home or self-care (01) ==
LOC: ED 22:29
DX: F32.9 Major depressive disorder, single episode, unspecified (principal); R45.851 Suicidal ideations; F41.9 Anxiety disorder, unspecified; E11.9 Type 2 diabetes mellitus without complications; Z79.4 Long term (current) use of insulin; E03.9 Hypothyroidism, unspecified; K21.9 Gastro-esophageal reflux disease without esophagitis; Z87.891 Personal history of nicotine dependence; I10 Essential (primary) hypertension; Z79.899 Other long term (current) drug therapy
CPT/HCPCS: 36415; 80053; 80307; 80320; 80329; 81003; 84443; 85025; 87086; 99285; A9270-GY; G0480

== ENCOUNTER 2023-09-07 19:41 | Inpatient (IN) ==
[2023-09-07 20:52] LABS: Venous Bicarbonate HCO3 29.1 mmol/L (24-28)
[2023-09-07 21:03] LABS: ABS Eosinophils 0.1 10^3/uL (0.0-0.5); ABS Monocytes 0.3 10^3/uL (0.0-0.9); ABS Neutrophils 3.2 10^3/uL (1.5-7.6); ABS Nucleated RBC 0.01 10^3/ul; Hematocrit 37.7 % (35-45); Hemoglobin 12.1 g/dL (11.5-14.3); Lymphocyte % 21.6 %; Mean Corpuscular Hemoglobin 25.5 pg (27-33); Mean Corpuscular Hgb Conc 32.1 g/dL (31-36); Mean Corpuscular Volume 79.6 fL (80-97); Mean Platelet Volume 9.4 fL (7.5-11.2); Nucleated Red Blood Cells % 0.2 %/100WBC (0.0-0.8); Platelet Count 91 10^3/uL (150-450); Red Blood Count 4.74 10^6/uL (3.63-4.92); Red Cell Distribution Width 20.7 % (12-17); White Blood Count 4.6 10^3/uL (3.8-11.8)
[2023-09-07 21:13] LABS: ALT 29 U/L (7-52); AST 40 U/L (13-39); Albumin 3.8 g/dL (3.2-5.2); Albumin/Globulin Ratio 1.1 (1-3); Alkaline Phosphatase 224 U/L (35-149); Anion Gap 4 mmol/L (2-16); Blood Urea Nitrogen 16 mg/dL (6-24); CO2 Carbon Dioxide 28 mmol/L (22-32); Calcium 9.1 mg/dL (8.6-10.3); Chloride 103 mmol/L (101-111); Creatinine, Serum 1.04 mg/dL (0.51-0.95); Globulin 3.6 g/dL (2-4); Glucose 256 mg/dL (70-100); Potassium 4.6 mmol/L (3.5-5.0); Sodium 135 mmol/L (135-145); Total Bilirubin 0.3 mg/dL (0.2-1.0); Total Protein 7.4 g/dL (6.4-8.9); eGFR CKD-EPI 62.7 (>60)
[2023-09-07 21:22] LABS: Acetaminophen < 15 mcg/mL; Alcohol, S < 13 mg/dL (<13); Salicylate < 2.50 mg/dL (<30)
[2023-09-07 21:37] LABS: TSH Ultra Thyroid Stim Horm 6.25 mcIU/mL (0.34-5.60)
[2023-09-07 22:07] LABS: Urine Appearance Clear; Urine Bilirubin Negative (Negative); Urine Blood Negative (Negative); Urine Color Light-Yellow; Urine Glucose 4+ (>=1000 mg/dL) (Negative); Urine Ketones Negative (Negative); Urine Nitrite Negative (Negative); Urine Protein Negative (Negative); Urine Urobilinogen Negative (Negative); Urine pH 5.5 (5.0-8.0)
[2023-09-07 22:17] LABS: Urine Benzodiazepine Screen None Detected (None Detect); Urine Cannabinoids Screen None Detected (None Detect); Urine Opiates Screen None Detected (None Detect)
[2023-09-07] MEDS ORDERED: Lorazepam PYXIS KEY PRN (22:42)
[2023-09-07] MEDS: LORazepam 2 mg VIAL 1 ml IV PUSH ONE (23:03)
[2023-09-07 23:22] LABS: Free T4 0.99 ng/dL (0.61-1.12)
[2023-09-08] MEDS: Ondansetron ODT 4 mg TAB 4 MG TAB SL ONE (06:00)
[2023-09-08] MEDS: Ondansetron ODT 4 mg TAB 4 MG TAB PO ONE (12:57)
[2023-09-08] MEDS ORDERED: Al Hydrox/Mg Hydrox/Simet LIQ 30 ML UDC PO PRN (13:41)
[2023-09-08] MEDS ORDERED: Fluticasone NASAL SPRAY 50MCG 16 gm SPRAY BTL BOTH NARES PRN (13:53)
[2023-09-08] MEDS ORDERED: Levalbuterol HFA INHALER MDI INH PRN (13:53)
[2023-09-08] MEDS ORDERED: Dextrose 50% Syringe 50 ml 25 GM/50 ML SYRINGE IV PUSH PRN (13:59)
[2023-09-08] MEDS ORDERED: Glucose ORAL 15 GM TUBE PO PRN (15:20)
[2023-09-08] MEDS: Ondansetron ODT 4 mg TAB 4 MG TAB SL PRN (20:46)
[2023-09-08] MEDS ORDERED: Insulin GLARGINE 100 un/ml 10 ml VIAL SUBCUT SCH (21:00)
[2023-09-09] MEDS: CMCS:Omeprazole 20 mg CAP (NF) PO SCH (09:28)
[2023-09-09] MEDS: Insulin GLARGINE 100 un/ml 10 ml VIAL SUBCUT SCH (09:40)
[2023-09-09] MEDS: DAPAGLIFLOZIN 5 MG PO SCH (09:40)
[2023-09-09] MEDS: VALBENAZINE 40 MG PO SCH (09:58)
[2023-09-09] MEDS: OLANZapine 5 mg TAB *ODT PO PRN (15:06)
[2023-09-09 17:16] LABS: Methemoglobin, B 0.2 % (0.0-1.5)
[2023-09-12 08:16] LABS: HDL Cholesterol 39.2 mg/dL
[2023-09-13 21:15] VITALS: BP 115/78
[2023-09-13] MEDS ORDERED: Dextrose 50% Syringe 50 ml 25 GM/50 ML SYRINGE IV PUSH PRN (23:04)
[2023-09-15] MEDS: Nystatin TOP POWDER 15 GM BTL TOPICAL PRN (10:56)
== END 2023-09-15 15:45 | disposition home or self-care (01) | DRG 918 ==
LOC: ED 19:41 → EDHOLD 09-08 13:41 → BSU 09-08 15:11
PROVIDERS: ADMIT Psychiatry & Neurology Psychiatry; ATTEND Psychiatry & Neurology Psychiatry

== ENCOUNTER 2023-10-12 22:48 | Inpatient (IN) ==
[2023-10-13 00:22] LABS: ABS Eosinophils 0.1 10^3/uL (0.0-0.5); ABS Lymphocytes 1.1 10^3/uL (1.0-4.8); ABS Monocytes 0.4 10^3/uL (0.0-0.9); ABS Neutrophils 3.4 10^3/uL (1.5-7.6); Eosinophil % 1.6 %; Hemoglobin 11.2 g/dL (11.5-14.3); Lymphocyte % 21.9 %; Mean Corpuscular Hemoglobin 25.8 pg (27-33); Mean Corpuscular Hgb Conc 31.9 g/dL (31-36); Mean Platelet Volume 9.7 fL (7.5-11.2); Nucleated Red Blood Cells % 0.1 %/100WBC (0.0-0.8); Platelet Count 103 10^3/uL (150-450); Red Blood Count 4.32 10^6/uL (3.63-4.92); Red Cell Distribution Width 19.9 % (12-17)
[2023-10-13 01:50] LABS: ALT 26 U/L (7-52); AST 42 U/L (13-39); Acetaminophen < 15 mcg/mL; Albumin 3.3 g/dL (3.2-5.2); Albumin/Globulin Ratio 0.9 (1-3); Alcohol, S < 13 mg/dL (<13); Alkaline Phosphatase 256 U/L (35-149); Anion Gap 11 mmol/L (2-16); Blood Urea Nitrogen 19 mg/dL (6-24); CO2 Carbon Dioxide 23 mmol/L (22-32); Calcium 8.5 mg/dL (8.6-10.3); Chloride 106 mmol/L (101-111); Creatinine, Serum 0.99 mg/dL (0.51-0.95); Globulin 3.6 g/dL (2-4); Glucose 75 mg/dL (70-100); Potassium 3.8 mmol/L (3.5-5.0); Salicylate < 2.50 mg/dL (<30); Sodium 140 mmol/L (135-145); TSH Ultra Thyroid Stim Horm 12.32 mcIU/mL (0.34-5.60); Total Bilirubin 0.2 mg/dL (0.2-1.0); Total Protein 6.9 g/dL (6.4-8.9); eGFR CKD-EPI 66.5 (>60)
[2023-10-13 04:04] LABS: Urine Appearance Clear; Urine Bilirubin Negative (Negative); Urine Blood Negative (Negative); Urine Color Colorless; Urine Glucose Negative (Negative); Urine Ketones Negative (Negative); Urine Nitrite Negative (Negative); Urine Protein Negative (Negative); Urine Specific Gravity 1.006 (1.002-1.030); Urine Urobilinogen Negative (Negative); Urine pH 5.5 (5.0-8.0)
[2023-10-13 05:11] LABS: Urine Benzodiazepine Screen None Detected (None Detect); Urine Cannabinoids Screen None Detected (None Detect); Urine Opiates Screen None Detected (None Detect)
[2023-10-13] MEDS ORDERED: Al Hydrox/Mg Hydrox/Simet LIQ 30 ML UDC PO PRN (05:47)
[2023-10-13] MEDS ORDERED: Vitamin THERAPEUTIC TAB PO SCH (09:00)
[2023-10-13 16:22] VITALS: BP 0/0
== END 2023-10-13 16:21 | disposition home or self-care (01) | DRG 883 ==
LOC: ED 22:48 → EDHOLD 10-13 05:13
PROVIDERS: ADMIT Psychiatry & Neurology Psychiatry; ATTEND Psychiatry & Neurology Psychiatry

== ENCOUNTER 2024-04-20 01:53 | Inpatient (IN) ==
[2024-04-20 02:45] LABS: Glucose Confirmatory 446 mg/dL (70-100)
[2024-04-20] MEDS: NS 0.9% 1000 ml BAG 1,000 ML IV ONE (08:00)
[2024-04-20 08:11] LABS: Hematocrit 33.1 % (35-45); Hemoglobin 10.3 g/dL (11.5-14.3); Mean Corpuscular Hemoglobin 22.6 pg (27-33); Mean Corpuscular Hgb Conc 31.1 g/dL (31-36); Mean Corpuscular Volume 72.7 fL (80-97); Red Blood Count 4.56 10^6/uL (3.63-4.92); Red Cell Distribution Width 20.3 % (12-17); White Blood Count 5.4 10^3/uL (3.8-11.8)
[2024-04-20 08:35] LABS: Mean Platelet Volume 10.1 fL (7.5-11.2); Platelet Count 89 10^3/uL (150-450)
[2024-04-20 08:36] LABS: ABS Monocytes 0.2 10^3/uL (0.0-0.9); ABS Neutrophils 4.2 10^3/uL (1.5-7.6); Anisocytosis 2+; Eosinophil % 0.1 %; Hypochromasia 2+; Lymphocyte % 18.2 %; Microcytosis 2+
[2024-04-20] MEDS: NS 0.9% 1000 ml BAG 1,000 ML IV SCH (08:52)
[2024-04-20 09:11] LABS: Albumin 3.5 g/dL (3.2-5.2); Albumin/Globulin Ratio 0.9 (1-3); Calcium 8.4 mg/dL (8.6-10.3); Creatinine, Serum 1.06 mg/dL (0.51-0.95); Globulin 3.8 g/dL (2-4); Potassium 4.6 mmol/L (3.5-5.0); Total Bilirubin 0.4 mg/dL (0.2-1.0); Total Protein 7.3 g/dL (6.4-8.9); eGFR CKD-EPI 61.3 (>60)
[2024-04-20] MEDS: D5LR 1000 ml BAG 1,000 ML IV SCH (14:34)
[2024-04-20 15:46] LABS: Calcium 8.3 mg/dL (8.6-10.3); Creatinine, Serum 0.85 mg/dL (0.51-0.95); Potassium 4.2 mmol/L (3.5-5.0); eGFR CKD-EPI 79.9 (>60)
[2024-04-20] MEDS ORDERED: Al Hydrox/Mg Hydrox/Simet LIQ 30 ML UDC PO PRN (16:17)
[2024-04-20] MEDS: OLANZapine 10 mg TAB*ODT PO SCH (22:51)
[2024-04-20] MEDS: Benzocaine/Menthol LOZ PO PRN (22:51)
[2024-04-21] MEDS: guaiFENesin 100 mg/5 ml LIQ unit dose cup PO PRN (00:54)
[2024-04-21 08:02] LABS: Calcium 8.5 mg/dL (8.6-10.3); Creatinine, Serum 0.88 mg/dL (0.51-0.95); Magnesium 1.9 mg/dL (1.9-2.7); Potassium 4.3 mmol/L (3.5-5.0); eGFR CKD-EPI 76.6 (>60)
[2024-04-21 08:03] LABS: ABS Lymphocytes 1.2 10^3/uL (1.0-4.8); ABS Monocytes 0.3 10^3/uL (0.0-0.9); ABS Neutrophils 3.8 10^3/uL (1.5-7.6); Hematocrit 32.8 % (35-45); Hemoglobin 10.3 g/dL (11.5-14.3); Lymphocyte % 22.3 %; Mean Corpuscular Hemoglobin 22.6 pg (27-33); Mean Corpuscular Hgb Conc 31.4 g/dL (31-36); Mean Corpuscular Volume 72.2 fL (80-97); Mean Platelet Volume 9.2 fL (7.5-11.2); Nucleated Red Blood Cells % 0.1 %/100WBC (0.0-0.8); Platelet Count 86 10^3/uL (150-450); Red Blood Count 4.54 10^6/uL (3.63-4.92); Red Cell Distribution Width 19.9 % (12-17); White Blood Count 5.2 10^3/uL (3.8-11.8)
[2024-04-21] MEDS: Insulin GLARGINE 100 un/ml 10 ml VIAL SUBCUT ONE (12:16)
[2024-04-21] MEDS: ARIPiprazole Maintena (NF) 400 MG SYRINGE IM SCH (13:54)
[2024-04-21] MEDS ORDERED: Dextrose 50% Syringe 50 ml 25 GM/50 ML SYRINGE IV PUSH PRN ×2 (15:27→22:49)
[2024-04-21 15:41] LABS: Glucose Confirmatory 447 mg/dL (70-100)
[2024-04-21] MEDS: D5LR 1000 ml BAG 1,000 ML IV SCH (17:28)
[2024-04-21 17:55] LABS: Glucose Confirmatory 418 mg/dL (70-100)
[2024-04-21 20:48] LABS: Glucose Confirmatory 443 mg/dL (70-100)
[2024-04-22 07:51] LABS: Anion Gap 8 mmol/L (2-16); Blood Urea Nitrogen 18 mg/dL (6-24); CO2 Carbon Dioxide 25 mmol/L (22-32); Calcium 8.3 mg/dL (8.6-10.3); Chloride 108 mmol/L (101-111); Creatinine, Serum 0.76 mg/dL (0.51-0.95); Glucose 88 mg/dL (70-100); Magnesium 1.8 mg/dL (1.9-2.7); Sodium 141 mmol/L (135-145); eGFR CKD-EPI 91.3 (>60)
[2024-04-22 08:56] LABS: Potassium, Whole Blood 4.2 mmol/L (3.4-4.5)
[2024-04-22 09:04] LABS: ABS Basophils 0.1 10^3/uL (0.0-0.1); ABS Eosinophils 0.1 10^3/uL (0.0-0.5); ABS Lymphocytes 4.3 10^3/uL (1.0-4.8); ABS Monocytes 0.7 10^3/uL (0.0-0.9); ABS Neutrophils 5.3 10^3/uL (1.5-7.6); Eosinophil % 0.8 %; Hematocrit 35.8 % (35-45); Hemoglobin 11.1 g/dL (11.5-14.3); Lymphocyte % 41.1 %; Mean Corpuscular Hemoglobin 22.4 pg (27-33); Mean Corpuscular Hgb Conc 31.1 g/dL (31-36); Mean Platelet Volume 8.9 fL (7.5-11.2); Platelet Count 107 10^3/uL (150-450); Red Blood Count 4.97 10^6/uL (3.63-4.92); Red Cell Distribution Width 19.9 % (12-17); White Blood Count 10.4 10^3/uL (3.8-11.8)
[2024-04-22 13:39] LABS: Glucose Confirmatory 425 mg/dL (70-100)
[2024-04-22] MEDS ORDERED: Dextrose 50% Syringe 50 ml 25 GM/50 ML SYRINGE IV PUSH PRN (14:58)
[2024-04-22 16:31] LABS: Glucose Confirmatory 483 mg/dL (70-100)
[2024-04-23] MEDS: Insulin GLARGINE 100 un/ml 10 ml VIAL SUBCUT SCH (09:35)
[2024-04-25] MEDS: Insulin GLARGINE 100 un/ml 10 ml VIAL SUBCUT SCH (08:23)
[2024-04-25 10:00] VITALS: BP 136/69
== END 2024-04-25 12:50 | disposition home or self-care (01) | DRG 917 ==
LOC: ED 01:53 → EDHOLD 01:53 → MED 17:18
PROVIDERS: ADMIT Internal Medicine; ATTEND Internal Medicine

== ENCOUNTER 2024-08-15 15:42 | Inpatient (IN) ==
[2024-08-15 16:24] LABS: ABS Basophils 0.1 10^3/uL (0.0-0.1); ABS Eosinophils 0.2 10^3/uL (0.0-0.5); ABS Monocytes 0.5 10^3/uL (0.0-0.9); ABS Neutrophils 6.3 10^3/uL (1.5-7.6); Eosinophil % 1.7 %; Hematocrit 37.6 % (35-45); Hemoglobin 11.7 g/dL (11.5-14.3); Lymphocyte % 22.1 %; Mean Corpuscular Hemoglobin 22.7 pg (27-33); Mean Corpuscular Volume 73.2 fL (80-97); Platelet Count 101 10^3/uL (150-450); Red Blood Count 5.14 10^6/uL (3.63-4.92); Red Cell Distribution Width 20.2 % (12-17)
[2024-08-15] MEDS: NS 0.9% 1000 ml BAG 1,000 ML IV ONE (16:25)
[2024-08-15 17:08] LABS: ALT 32 U/L (7-52); AST 38 U/L (13-39); Acetaminophen < 15 mcg/mL; Albumin 3.9 g/dL (3.5-5.7); Albumin/Globulin Ratio 1.1 (1-3); Alcohol, S < 13 mg/dL (<13); Alkaline Phosphatase 224 U/L (35-149); Anion Gap 8 mmol/L (2-16); Blood Urea Nitrogen 15 mg/dL (6-24); CO2 Carbon Dioxide 29 mmol/L (22-32); Calcium 8.8 mg/dL (8.6-10.3); Chloride 98 mmol/L (101-111); Creatinine, Serum 0.97 mg/dL (0.51-0.95); Globulin 3.6 g/dL (2-4); Glucose 246 mg/dL (70-100); Lithium < 0.16 mmol/L (0.6-1.2); Potassium 4.7 mmol/L (3.5-5.0); Salicylate < 2.50 mg/dL (<30); Sodium 135 mmol/L (135-145); Total Bilirubin 0.4 mg/dL (0.2-1.0); Total Protein 7.5 g/dL (6.4-8.9); eGFR CKD-EPI 67.7 (>60)
[2024-08-15] MEDS ORDERED: Dextrose 50% Syringe 50 ml 25 GM/50 ML SYRINGE IV PUSH PRN (21:09)
[2024-08-15] MEDS: NS 0.9% 1000 ml BAG 1,000 ML IV SCH (21:42)
[2024-08-16] MEDS ORDERED: Atropine 0.1 MG/ML 10 ml SYR (1 mg) IV PUSH PRN (03:46)
[2024-08-16] MEDS: Naloxone 0.4 mg VIAL 0.4 mg/ml 1 ml VIAL ONE (04:09)
[2024-08-16 04:19] LABS: Hematocrit 31.9 % (35-45); Hemoglobin 10.2 g/dL (11.5-14.3); Mean Corpuscular Hemoglobin 23.4 pg (27-33); Mean Corpuscular Hgb Conc 31.9 g/dL (31-36); Mean Corpuscular Volume 73.2 fL (80-97); Red Blood Count 4.36 10^6/uL (3.63-4.92); Red Cell Distribution Width 20.1 % (12-17); White Blood Count 5.6 10^3/uL (3.8-11.8)
[2024-08-16] MEDS: NS 0.9% 1000 ml BAG 1,000 ML IV ONE ×2 (04:21→07:28)
[2024-08-16 04:48] LABS: ABS Eosinophils 0.1 10^3/uL (0.0-0.5); ABS Lymphocytes 2.3 10^3/uL (1.0-4.8); ABS Monocytes 0.4 10^3/uL (0.0-0.9); ABS Neutrophils 2.8 10^3/uL (1.5-7.6); ABS Nucleated RBC 0.01 10^3/ul; Eosinophil % 1.8 %; Lymphocyte % 40.7 %; Mean Platelet Volume 9.8 fL (7.5-11.2); Nucleated Red Blood Cells % 0.1 %/100WBC (0.0-0.8); Platelet Count 73 10^3/uL (150-450)
[2024-08-16 04:59] LABS: Albumin 3.1 g/dL (3.5-5.7); Calcium 7.7 mg/dL (8.6-10.3); Creatinine, Serum 0.87 mg/dL (0.51-0.95); Magnesium 1.7 mg/dL (1.9-2.7); Potassium 4.2 mmol/L (3.5-5.0); Total Bilirubin 0.4 mg/dL (0.2-1.0); Total Protein 6.1 g/dL (6.4-8.9); eGFR CKD-EPI 77.2 (>60)
[2024-08-16] MEDS: Magnesium Sulfate 2 gm BAG 2 GM/50 ML BAG IVPB ONE (05:05)
[2024-08-16] MEDS: Naloxone 0.4 mg VIAL 0.4 mg/ml 1 ml VIAL IV PUSH ONE (05:07)
[2024-08-16 05:33] LABS: Ferritin 6.2 ng/mL (11-307)
[2024-08-16] MEDS: NS 0.9% 500 ml BAG 500 ML IV ONE (06:39)
[2024-08-16] MEDS: Insulin GLARGINE 100 un/ml 10 ml VIAL SUBCUT SCH (08:20)
[2024-08-16] MEDS: Nystatin TOP POWDER 15 GM BTL TOPICAL SCH (08:25)
[2024-08-16] MEDS: CMCS:Omeprazole 20 mg CAP (NF) PO SCH (08:27)
[2024-08-16] MEDS: NF: DAPAGLIFLOZIN 5 MG TAB (NF) PO SCH (10:40)
[2024-08-16] MEDS: Ferric Gluconate IV 250 MG in NS 0.9% 250 ml 200 ML IVPB SCH (10:43)
[2024-08-16] MEDS ORDERED: Naloxone Nasal Spray 4 MG/0.1 ML NASAL.SPR INTRANASAL ONE (12:00)
[2024-08-16] MEDS: Ondansetron 4 mg VIAL 2 MG/ML 2 ml VIAL IV ONE (14:24)
[2024-08-16] MEDS ORDERED: Dextrose 50% Syringe 50 ml 25 GM/50 ML SYRINGE IV PUSH PRN (15:53)
[2024-08-16] MEDS: OLANZapine 10 mg TAB*ODT PO SCH (20:31)
[2024-08-16] MEDS: VALBENAZINE 40 MG PO SCH (21:25)
[2024-08-17 07:41] LABS: ABS Eosinophils 0.1 10^3/uL (0.0-0.5); ABS Lymphocytes 1.7 10^3/uL (1.0-4.8); ABS Monocytes 0.3 10^3/uL (0.0-0.9); ABS Neutrophils 2.3 10^3/uL (1.5-7.6); Eosinophil % 2.3 %; Hematocrit 35.6 % (35-45); Hemoglobin 11.1 g/dL (11.5-14.3); Lymphocyte % 38.4 %; Mean Corpuscular Hgb Conc 31.2 g/dL (31-36); Mean Corpuscular Volume 73.7 fL (80-97); Mean Platelet Volume 9.2 fL (7.5-11.2); Nucleated Red Blood Cells % 0.1 %/100WBC (0.0-0.8); Platelet Count 81 10^3/uL (150-450); Red Blood Count 4.83 10^6/uL (3.63-4.92); White Blood Count 4.5 10^3/uL (3.8-11.8)
[2024-08-17 07:45] LABS: Calcium 7.8 mg/dL (8.6-10.3); Creatinine, Serum 0.92 mg/dL (0.51-0.95); Potassium 4.5 mmol/L (3.5-5.0); eGFR CKD-EPI 72.2 (>60)
[2024-08-17] MEDS: Insulin GLARGINE 100 un/ml 10 ml VIAL SUBCUT SCH (08:19)
[2024-08-17] MEDS: Ondansetron 4 mg VIAL 2 MG/ML 2 ml VIAL IV ONE (09:54)
[2024-08-17 14:25] VITALS: BP 102/58
== END 2024-08-17 16:00 | disposition home or self-care (01) | DRG 918 ==
LOC: EDHOLD 15:42 → ED 15:42 → SUATTDRO 17:41 → OBSVTOIN 20:34 → MEDTELE 22:54
PROVIDERS: ADMIT Internal Medicine; ATTEND Internal Medicine